=== PATIENT | female | born 1950 | race Caucasian/White ===

== ENCOUNTER → 2016-11-18 | Outpatient (CLI) | payer MEDICARE, OTHER ==
--- NOTE | 2016-11-18 16:28 | BD ---
EXAMINATION TYPE: MG DEXA axial skeleton. DATE OF EXAM: 11/18/2016 2:34 PM COMPARISON: NONE CLINICAL HISTORY: 66-year-old female Z78.0 ASYMPTOMATIC MENOPAUSAL STATE Height: 61.5 Weight: 228 FRAX RISK QUESTIONS: Alcohol (3 or more units per day): NO Family History (Parent hip fracture): NO Glucocorticoids (More than 3mos): YES (Ex: prednisone, prednisolone, methylprednisolone, dexamethasone, and hydrocortisone). History of Fracture in Adulthood: YES Secondary Osteoporosis: NO 1. Type 1 Diabetes: YES 2. Hyperthyroidism: NO 3. Menopause before 45: YES 4. Malnutrition: NO 5. Chronic liver disease: NO Rheumatoid Arthritis: NO Current Tobacco Use: NO RISK FACTORS HISTORY OF: Other Fractures since Age 50: FOOT X2 FRACTURES IN SAME FOOT When: > AGE 50 Family History of Osteoporosis: NONE KNOWN Smoke tobacco: QUIT OVER 20 YRS AGO Drink Alcohol: NO Active: YES Diet low in dairy products/other sources of calcium: NO Postmenopausal woman: EARLY 40'S Lost more than 2 inches in height since high school: NO Adrenal Insufficiency: NO MEDICATIONS: Prednisone or other steroids: SYMBACORT, SINGULAIR, AND STEROID INJECTIONS OFTEN How Long: FOR MANY YRS Additional Medications: BP MEDS, METFORMIN FOR DIABETES, VIT D IN THE PAST Additional History: OSTEOARTHRITIS, DEG DISC DISEASE OF THE SPINE, ASTHMA, DIABETIC EXAM MEASUREMENTS: Bone mineral densitometry was performed using the [employer] System. Bone mineral density as measured about the Lumbar spine is: ----- L1-L4(G/cm2): 1.174 T Score Values are as follows: ----- L1: -0.4 ----- L2: -0.7 ----- L3: 0.6 ----- L4: 0.1 ----- L1-L4: 0.0 Bone mineral density THIS IS HER FIRST BONE DENSITY AT [facility] Bone mineral density about the R hip (g/cm2): 1.093 Bone mineral density about the L hip (g/cm2): 1.024 T Score values are as follows: -----R Neck: 0.4 -----L Neck: -0.1 -----R Intertrochanter: 0.4 -----L Intertrochanter: 0.6 Bone mineral density THIS IS HER FIRST BONE DENSITY AT [facility] FRAX%'S: FOR MAJOR OSTEOPOROTIC FX: 10.0%......FOR HIP FX: 0.3% PROBABILITY OF FX IN 10 YRS TIME IMPRESSION: Normal (Values between +1 and -1 indicate normal bone mass). Rescreen in 5 years. NOTE: T-SCORE=SD OF THE YOUNG ADULT MEAN.
--- NOTE | 2016-11-22 08:12 | MM ---
Reason for exam: screening (asymptomatic). Last mammogram was performed 3 years and 3 months ago. History: Patient is postmenopausal. Family history of breast cancer in sister at age 62. Physical Findings: A clinical breast exam by your physician is recommended on an annual basis and results should be correlated with mammographic findings. MG 3D Screening Mammo W/Cad Bilateral CC and MLO view(s) were taken. Prior study comparison: August 06, 2013, bilateral digital screening mammo w/CAD. August 06, 2010, bilateral digital screening mammogram. There are scattered fibroglandular densities. No significant changes when compared with prior studies. ASSESSMENT: Negative, BI-RAD 1 RECOMMENDATION: Routine screening mammogram of both breasts in 1 year.
== END | disposition home or self-care (01) ==
LOC: RADMAMWWP 13:49
PROVIDERS: ATTEND Family Medicine
DX: Z12.31 Encounter for screening mammogram for malignant neoplasm of breast (principal); Z78.0 Asymptomatic menopausal state
CPT/HCPCS: 77080; 77063; G0202

== ENCOUNTER → 2018-12-03 | Outpatient (CLI) | payer MEDICARE, OTHER ==
--- NOTE | 2018-12-04 10:29 | MM ---
Reason for exam: screening (asymptomatic). Last mammogram was performed 2 years ago. History: Patient is postmenopausal. Family history of breast cancer in sister at age 62. Physical Findings: A clinical breast exam by your physician is recommended on an annual basis and results should be correlated with mammographic findings. MG 3D Screening Mammo W/Cad Bilateral CC and MLO view(s) were taken. Prior study comparison: November 18, 2016, bilateral MG 3d screening mammo w/cad. August 06, 2013, bilateral digital screening mammo w/CAD. The breast tissue is heterogeneously dense. This may lower the sensitivity of mammography. Finding: There are typically benign vascular, round, linear calcifications in both breasts. There is a chronic nodularity in the left breast. There is no discrete abnormality. ASSESSMENT: Benign, BI-RAD 2 RECOMMENDATION: Routine screening mammogram of both breasts in 1 year.
== END | disposition home or self-care (01) ==
LOC: RADMAMWWP 11:05
PROVIDERS: ATTEND Internal Medicine
DX: Z12.31 Encounter for screening mammogram for malignant neoplasm of breast (principal)
CPT/HCPCS: 77063; 77067

== ENCOUNTER 2019-03-04 11:35 | Inpatient (IN) | payer MEDICARE, OTHER ==
[2019-03-04] MEDS ORDERED: IPRATROPIUM-ALBUTEROL 3 ML NEB INHALATION STA (12:26)
[2019-03-04] MEDS ORDERED: methylPREDNISolone SOD SUCCI 125 MG/2 ML VIAL IV STA (12:26)
[2019-03-04] MEDS ORDERED: SODIUM CHLORIDE 0.9% 1,000 ML IV STA (12:26)
[2019-03-04] MEDS ORDERED: ACETAMINOPHEN TAB 325 MG TAB PO STA (12:27)
--- NOTE | 2019-03-04 12:37 | ED ---
SOB HPI <Yosi Tellez - Last Filed: 03/04/19 14:17> - General Source: patient, RN notes reviewed Mode of arrival: ambulatory Limitations: no limitations <Suresh Lyon - Last Filed: 03/04/19 14:26> - General Chief Complaint: Shortness of Breath Stated Complaint: poss pneumonia Time Seen by Provider: 03/04/19 12:06 - History of Present Illness Initial Comments: 68-year-old female presents emergency Department with chief complaint of cough, cold like symptoms for 3 weeks. Patient states symptoms started and she is using bcnp-cqd-ramkice medications with relief but states the symptoms progressively worsened. Patient states that she has increasing shortness breath. She does have underlying asthma and states that she smokes marijuana occasionally. Patient states that occasionally been told that she has COPD. Patient denies any recent Tylenol Motrin for her fever. Patient does complain of some body aches and mild sinus congestion and sore throat. Patient denies sick contacts. Patient denies any current chest pain or pleuritic chest pain denies any nausea vomiting diarrhea constipation no urinary symptoms (Suresh Lyon) - Related Data Home Medications Medication Instructions Recorded Confirmed Budesonide/Formoterol Fumarate 1 applic INHALATION BID 06/02/14 03/04/19 [Symbicort 160-4.5 Mcg Inhaler] Fenofibrate Nanocrystallized 145 mg PO QAM 06/02/14 03/04/19 [Fenofibrate] Ibuprofen [Motrin] 800 mg PO TID PRN 06/02/14 03/04/19 Lisinopril-Hctz 10-12.5 mg 1 tab PO DAILY 06/02/14 03/04/19 [Zestoretic 10-12.5] Montelukast [Singulair] 10 mg PO HS 06/02/14 03/04/19 metFORMIN HCL [Glucophage] 1,000 mg PO BID 06/02/14 03/04/19 rOPINIRole HCL 0.5 mg PO HS 11/04/15 03/04/19 traMADol HCl [Ultram] 100 mg PO BID 11/04/15 03/04/19 Baclofen 10 mg PO TID PRN 09/14/16 03/04/19 Albuterol Nebulized [Ventolin 2.5 mg INHALATION RT-Q6H PRN 03/04/19 03/04/19 Nebulized] diphenhydrAMINE [Benadryl] 25 mg PO QID PRN 03/04/19 03/04/19 sitaGLIPtin [Januvia] 100 mg PO DAILY 03/04/19 03/04/19 Allergies Allergy/AdvReac Type Severity Reaction Status Date / Time cephalexin Allergy Anaphylaxis Verified 03/04/19 12:23 cephalexin monohydrate Allergy Anaphylaxis Verified 03/04/19 12:23 [From Keflex] Sulfa (Sulfonamide Allergy Rash/Hives Verified 03/04/19 12:23 Antibiotics) Review of Systems ROS Other: All systems not noted in ROS Statement are negative. <Yosi Tellez - Last Filed: 03/04/19 14:17> ROS Other: All systems not noted in ROS Statement are negative. <Suresh Lyon - Last Filed: 03/04/19 14:26> ROS Statement: Those systems with pertinent positive or pertinent negative responses have been documented in the HPI. 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., HX OF MENIGITIS- STATES IN COMA AND ON LIFE SUPPORT FOR 1 WEEK (?2013) History of Any Multi-Drug Resistant Organisms: None Reported Past Surgical History: Cholecystectomy, Hernia Repair, Orthopedic Surgery, Tonsillectomy, Tubal Ligation Additional Past Surgical History / Comment(s): LEFT KNEE ARTHROSCOPY, BMT AND MYRINGOPLASTY, umbilical hernia repair Past Anesthesia/Blood Transfusion Reactions: No Reported Reaction Additional Past Anesthesia/Blood Transfusion Reaction / Comment(s): STATES AFTER LAST EAR SX (11/2013) HAD SORE MUSCLES AND WAS WEAK FOR 3-4 DAYS Past Psychological History: No Psychological Hx Reported Smoking Status: Former smoker - Past Family History Sister(s) Family Medical History: Cancer Brother(s) Family Medical History: Cancer <Suresh Lyon - Last Filed: 03/04/19 14:26> General Exam Limitations: no limitations General appearance: alert, in no apparent distress Head exam: Present: atraumatic, normocephalic, normal inspection Eye exam: Present: normal appearance, PERRL, EOMI. Absent: scleral icterus, conjunctival injection, periorbital swelling ENT exam: Present: normal exam, normal oropharynx, mucous membranes moist, TM's normal bilaterally, normal external ear exam Neck exam: Present: normal inspection, full ROM. Absent: tenderness, meningismus, lymphadenopathy Respiratory exam: Present: respiratory distress (Mild), wheezes. Absent: normal lung sounds bilaterally, rales, rhonchi, stridor Cardiovascular Exam: Present: normal rhythm, tachycardia, normal heart sounds. Absent: systolic murmur, diastolic murmur, rubs, gallop, clicks GI/Abdominal exam: Present: soft, normal bowel sounds. Absent: distended, tenderness, guarding, rebound, rigid Neurological exam: Present: alert, oriented X3, CN II-XII intact Skin exam: Present: warm, dry, intact, normal color. Absent: rash <Suresh Lyon - Last Filed: 03/04/19 14:26> Course <Yosi Tellez - Last Filed: 03/04/19 14:17> Vital Signs 03/04/19 03/04/19 03/04/19 12:03 12:21 13:19 Temperature 99.9 F H Pulse Rate 110 H 97 Respiratory 28 H 22 Rate Blood Pressure 155/77 O2 Sat by Pulse 94 L Oximetry 03/04/19 03/04/19 13:36 13:54 Temperature 98.8 F Pulse Rate 102 H 101 H Respiratory 22 Rate Blood Pressure 121/67 O2 Sat by Pulse 97 Oximetry - Reevaluation(s) Reevaluation #1: 03/04/19 14:17 PA supervision: I proceeded [id number] evaluation the patient does present with complaints of shortness of breath. She also had a fever. She does have evidence of COPD exacerbation as well as pneumonia and x-rays. She's been suffering with shortness of breath or past several weeks using [id number]-[id number] medications to treat himself. She's not sought medical care prior. I do agree with the assessment and plan. (Yosi Tellez) Medical Decision Making - Lab Data Result diagrams: 03/04/19 13:10 03/04/19 13:10 <Yosi Tellez - Last Filed: 03/04/19 14:17> - Lab Data Result diagrams: 03/04/19 13:10 03/04/19 13:10 <Suresh Lyon - Last Filed: 03/04/19 14:26> - Medical Decision Making 60-year-old female presented for dyspnea, cough congestion. Chest x-rays is with pneumonia along with her symptoms. Patient is febrile. Patient improved after IV steroids, breathing treatment. Patient was started on Levaquin. (Suresh Lyon) - Lab Data Lab Results 03/04/19 03/04/19 03/04/19 Range/Units 13:10 13:10 13:10 WBC 10.1 (3.8-10.6) k/uL RBC 4.55 (3.80-5.40) m/uL Hgb 11.3 L (11.4-16.0) gm/dL Hct 36.3 (34.0-46.0) % MCV 79.7 L (80.0-100.0) fL MCH 24.8 L (25.0-35.0) pg MCHC 31.2 (31.0-37.0) g/dL RDW 15.7 H (11.5-15.5) % Plt Count 357 (150-450) k/uL Neutrophils % 74 % Lymphocytes % 18 % Monocytes % 5 % Eosinophils % 3 % Basophils % 1 % Neutrophils # 7.4 (1.3-7.7) k/uL Lymphocytes # 1.8 (1.0-4.8) k/uL Monocytes # 0.5 (0-1.0) k/uL Eosinophils # 0.3 (0-0.7) k/uL Basophils # 0.1 (0-0.2) k/uL Hypochromasia Moderate Sodium 137 (137-145) mmol/L Potassium 4.5 (3.5-5.1) mmol/L Chloride 103 (98-107) mmol/L Carbon Dioxide 26 (22-30) mmol/L Anion Gap 8 mmol/L BUN 7 (7-17) mg/dL Creatinine 0.50 L (0.52-1.04) mg/dL Est GFR (CKD-EPI)AfAm >90 (>60 ml/min/1.73 sqM) Est GFR (CKD-EPI)NonAf >90 (>60 ml/min/1.73 sqM) Glucose 118 H (74-99) mg/dL Plasma Lactic Acid Angel (0.7-2.0) mmol/L Calcium 9.4 (8.4-10.2) mg/dL Magnesium 1.7 (1.6-2.3) mg/dL Total Bilirubin 0.6 (0.2-1.3) mg/dL AST 27 (14-36) U/L ALT 24 (9-52) U/L Alkaline Phosphatase 56 (38-126) U/L Total Protein 7.2 (6.3-8.2) g/dL Albumin 4.0 (3.5-5.0) g/dL Influenza Type A RNA Not Detected (Not Detectd) Influenza Type B (PCR) Not Detected (Not Detectd) 03/04/19 Range/Units 13:10 WBC (3.8-10.6) k/uL RBC (3.80-5.40) m/uL Hgb (11.4-16.0) gm/dL Hct (34.0-46.0) % MCV (80.0-100.0) fL MCH (25.0-35.0) pg MCHC (31.0-37.0) g/dL RDW (11.5-15.5) % Plt Count (150-450) k/uL Neutrophils % % Lymphocytes % % Monocytes % % Eosinophils % % Basophils % % Neutrophils # (1.3-7.7) k/uL Lymphocytes # (1.0-4.8) k/uL Monocytes # (0-1.0) k/uL Eosinophils # (0-0.7) k/uL Basophils # (0-0.2) k/uL Hypochromasia Sodium (137-145) mmol/L Potassium (3.5-5.1) mmol/L Chloride (98-107) mmol/L Carbon Dioxide (22-30) mmol/L Anion Gap mmol/L BUN (7-17) mg/dL Creatinine (0.52-1.04) mg/dL Est GFR (CKD-EPI)AfAm (>60 ml/min/1.73 sqM) Est GFR (CKD-EPI)NonAf (>60 ml/min/1.73 sqM) Glucose (74-99) mg/dL Plasma Lactic Acid Angel 1.1 (0.7-2.0) mmol/L Calcium (8.4-10.2) mg/dL Magnesium (1.6-2.3) mg/dL Total Bilirubin (0.2-1.3) mg/dL AST (14-36) U/L ALT (9-52) U/L Alkaline Phosphatase (38-126) U/L Total Protein (6.3-8.2) g/dL Albumin (3.5-5.0) g/dL Influenza Type A RNA (Not Detectd) Influenza Type B (PCR) (Not Detectd) Disposition <Yosi Tellez - Last Filed: 03/04/19 14:17> <Suresh Lyon - Last Filed: 03/04/19 14:26> Clinical Impression: Pneumonia, Asthma exacerbation Disposition: ADMITTED IP TO THIS HOSP Condition: Fair Referrals: Surinder Rodríguez MD [Primary Care Provider] - 1-2 days
[2019-03-04 13:37] LABS: ALT 24 U/L (9-52); AST 27 U/L (14-36); Alkaline Phosphatase 56 U/L (38-126); Anion Gap 8 mmol/L; Blood Urea Nitrogen 7 mg/dL (7-17); Calcium 9.4 mg/dL (8.4-10.2); Carbon Dioxide 26 mmol/L (22-30); Chloride 103 mmol/L (98-107); Glucose 118 mg/dL (74-99); Magnesium 1.7 mg/dL (1.6-2.3); Potassium 4.5 mmol/L (3.5-5.1); Sodium 137 mmol/L (137-145); Total Bilirubin 0.6 mg/dL (0.2-1.3); Total Protein 7.2 g/dL (6.3-8.2)
[2019-03-04 13:41] LABS: Basophils # (A) 0.1 k/uL (0-0.2); Basophils % (A) 1 %; Eosinophils # (A) 0.3 k/uL (0-0.7); Eosinophils % (A) 3 %; HCT 36.3 % (34.0-46.0); HGB 11.3 gm/dL (11.4-16.0); Hypochromasia Moderate; Lymphocytes # (A) 1.8 k/uL (1.0-4.8); Lymphocytes % (A) 18 %; MCH 24.8 pg (25.0-35.0); MCHC 31.2 g/dL (31.0-37.0); MCV 79.7 fL (80.0-100.0); Mean Platelet Volume 7.5; Monocytes # (A) 0.5 k/uL (0-1.0); Monocytes % (A) 5 %; Neutrophils # (A) 7.4 k/uL (1.3-7.7); Neutrophils % (A) 74 %; Platelet Count 357 k/uL (150-450); RBC 4.55 m/uL (3.80-5.40); RDW 15.7 % (11.5-15.5); WBC 10.1 k/uL (3.8-10.6)
--- NOTE | 2019-03-04 13:57 | XR ---
EXAMINATION TYPE: XR chest 2V DATE OF EXAM: 03/04/2019 COMPARISON: Prior chest x-ray 10/09/2013 HISTORY: Difficulty breathing, shortness of breath and productive cough TECHNIQUE: Frontal and lateral views of the chest are obtained. FINDINGS: Patchy basilar density is present likely in the left lower lobe. No pneumothorax or pleura l effusion. Patient is rotated. Heart size may be enlarged however patient is rotated. There are over lying cardiac leads. Some improvement in aeration compared to prior exam. IMPRESSION: There may be basilar atelectasis or airspace disease, correlate to exclude pneumonia. Fo llow-up PA and lateral chest x-ray may be of benefit. Rotated exam. There may be underlying cardiomeg nate.
[2019-03-04] MEDS ORDERED: IPRATROPIUM-ALBUTEROL 3 ML NEB INHALATION PRN (14:26)
[2019-03-04] MEDS ORDERED: PNEUMONIA PROTOCOL UTILIZED 1 EACH MISC PO PRN (14:26)
[2019-03-04] MEDS: LEVOFLOXACIN 750MG-D5W PMX 750 MG in DEXTROSE/WATER 1 150ML.BAG IVPB SCH (15:52)
[2019-03-04] MEDS ORDERED: diphenhydrAMINE 25 MG CAP PO PRN (15:55)
[2019-03-04] MEDS ORDERED: IBUPROFEN 800 MG TAB PO PRN (15:55)
--- NOTE | 2019-03-04 16:05 | P.HPIM ---
History of Present Illness H&P Date: 03/04/19 Chief Complaint: Productive cough and shortness of breath 2 weeks This is a 68-year-old female with a known past medical history of asthma, COPD, diabetes mellitus, hyperlipidemia, hypertension, obstructive sleep apnea noncompliant with CPAP machine and history of meningitis requiring life support in 2013. Patient presents to the emergency room with complaints of productive cough with yellowish sputum and shortness of breath for the past 2 weeks. She did took kofd-zcr-meruyhy Robitussin-DM 2 bottles with no improvement. She also had been using extra nebulizer treatments as well. She did have a temp of 99.9 heart rate of 110 in the emergency room. Lactic acid normal at 1.1 influenza screen was negative. Chest x-ray had shown basilar atelectasis, correlate to exclude pneumonia. Patient started on IV Levaquin, IV Solu-Medrol and nebulizer treatments. Pulmonary service has been placed on consult. Patient has been exposed to grandkids with pneumonia and possibly whooping cough. Patient states that she is up-to-date on her childhood immunizations. Patient admits to having chills and sweats. Denies any nausea vomiting bowel movement changes or urinary symptoms. Denies any chest pain. Review of Systems Please refer to HPI otherwise unremarkable 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., HX OF MENIGITIS- STATES IN COMA AND ON LIFE SUPPORT FOR 1 WEEK (?2013) History of Any Multi-Drug Resistant Organisms: None Reported Past Surgical History: Cholecystectomy, Hernia Repair, Orthopedic Surgery, Tonsillectomy, Tubal Ligation Additional Past Surgical History / Comment(s): LEFT KNEE ARTHROSCOPY, BMT AND MYRINGOPLASTY, umbilical hernia repair Past Anesthesia/Blood Transfusion Reactions: No Reported Reaction Additional Past Anesthesia/Blood Transfusion Reaction / Comment(s): STATES AFTER LAST EAR SX (11/2013) HAD SORE MUSCLES AND WAS WEAK FOR 3-4 DAYS Past Psychological History: No Psychological Hx Reported Smoking Status: Former smoker - Past Family History Sister(s) Family Medical History: Cancer Brother(s) Family Medical History: Cancer Medications and Allergies Home Medications Medication Instructions Recorded Confirmed Type Budesonide/Formoterol Fumarate 1 applic INHALATION BID 06/02/14 03/04/19 History [Symbicort 160-4.5 Mcg Inhaler] Fenofibrate Nanocrystallized 145 mg PO QAM 06/02/14 03/04/19 History [Fenofibrate] Ibuprofen [Motrin] 800 mg PO TID PRN 06/02/14 03/04/19 History Lisinopril-Hctz 10-12.5 mg 1 tab PO DAILY 06/02/14 03/04/19 History [Zestoretic 10-12.5] Montelukast [Singulair] 10 mg PO HS 06/02/14 03/04/19 History metFORMIN HCL [Glucophage] 1,000 mg PO BID 06/02/14 03/04/19 History rOPINIRole HCL 0.5 mg PO HS 11/04/15 03/04/19 History traMADol HCl [Ultram] 100 mg PO BID 11/04/15 03/04/19 History Baclofen 10 mg PO TID PRN 09/14/16 03/04/19 History Albuterol Nebulized [Ventolin 2.5 mg INHALATION RT-Q6H PRN 03/04/19 03/04/19 History Nebulized] diphenhydrAMINE [Benadryl] 25 mg PO QID PRN 03/04/19 03/04/19 History sitaGLIPtin [Januvia] 100 mg PO DAILY 03/04/19 03/04/19 History Allergies Allergy/AdvReac Type Severity Reaction Status Date / Time cephalexin Allergy Anaphylaxis Verified 03/04/19 12:23 cephalexin monohydrate Allergy Anaphylaxis Verified 03/04/19 12:23 [From Keflex] Sulfa (Sulfonamide Allergy Rash/Hives Verified 03/04/19 12:23 Antibiotics) Physical Exam Vitals: Vital Signs Temp Pulse Resp BP Pulse Ox 03/04/19 13:54 98.8 F 101 H 22 121/67 97 03/04/19 13:36 102 H 03/04/19 13:19 97 03/04/19 12:21 22 03/04/19 12:03 99.9 F H 110 H 28 H 155/77 94 L Intake and Output 03/04/19 03/04/19 03/04/19 06:59 14:59 22:59 Other: Weight 104.508 kg Head normocephalic Neck supple Lungs rhonchi and wheezing noted bilaterally Heart regular rate and rhythm S1-S2, no rub or gallop Abdomen is soft nontender nondistended positive bowel sounds no hepatosplenomegaly Extremities no edema Neuro alert and orientated to 3 Results CBC & Chem 7: 03/04/19 13:10 03/04/19 13:10 Labs: Abnormal Lab Results - Last 24 Hours (Table) 03/04/19 03/04/19 Range/Units 13:10 13:10 Hgb 11.3 L (11.4-16.0) gm/dL MCV 79.7 L (80.0-100.0) fL MCH 24.8 L (25.0-35.0) pg RDW 15.7 H (11.5-15.5) % Creatinine 0.50 L (0.52-1.04) mg/dL Glucose 118 H (74-99) mg/dL Assessment and Plan Assessment: 1. Productive cough with shortness of breath: Likely secondary to bronchitis with possible pneumonia and asthma exacerbation. Influenza screening negative 2. Acute tracheobronchitis with possible pneumonia: Check sputum culture continue Levaquin. Consult pulmonary service 3. Acute asthma exacerbation with possible underlying COPD. Patient does have a past history of smoking. We'll continue with nebulizer treatments 4 times a day and as needed. 4. Diabetes mellitus type 2 hold metformin. Resume Januvia. Add sliding scale coverage scale D due to patient being on steroids 5. Hyperlipidemia 6. Essential hypertension: Blood pressure stable 7. Obstructive sleep apnea noncompliant with CPAP machine 8. History of meningitis requiring life support in 2013 9. Occasional marijuana use GI prophylaxis Pepcid and DVT prophylaxis Lovenox Time with Patient: Greater than 30 (Greater than 50% of the total time spent in counseling and coordination of care.I performed an examination of the patient and discussed their management with the physician District Resource Officer. I have reviewed the Physician District Resource Officer's notes and agree with the documented findings and plan of care)
[2019-03-04] MEDS: IPRATROPIUM-ALBUTEROL 3 ML NEB INHALATION SCH ×2 (16:22→20:14)
[2019-03-04 17:04] LABS: Glucose,Whole Blood 346 mg/dL (75-99)
[2019-03-04] MEDS: methylPREDNISolone SOD SUCCI 40 MG/ML 1 ML VIAL IV SCH (17:29)
[2019-03-04 17:54] VITALS: BMI 42.1
[2019-03-04] MEDS: INSULIN ASPART (NovoLOG) 100 UNIT/ML VIAL SQ SCH ×2 (18:11→20:51)
[2019-03-04] MEDS: traMADol 50 MG TAB PO SCH (19:57)
[2019-03-04] MEDS: BACLOFEN 10 MG TAB PO PRN (19:58)
[2019-03-04] MEDS: MONTELUKAST 10 MG TAB PO SCH (19:58)
[2019-03-04 20:39] LABS: Glucose,Whole Blood 324 mg/dL (75-99)
--- NOTE | 2019-03-04 21:42 | P.CONS ---
History of Present Illness - Reason for Consult Consult date: 03/04/19 Pneumonia Requesting physician: Surinder Rodríguez - Chief Complaint Shortness of breath and cough x 3 weeks - History of Present Illness Patient is a 68-year-old female presenting to the ER at [facility] chief complaints of increased shortness of breath and cough with a symptom that has been going on for almost 3 weeks patient's symptoms started with URI some sore throat or runny nose subsequent was on having a cough which is moderate in intensity and bringing up some yellow sputum initially discovered intake between now no hemoptysis patient has taken skuw-gzm-hdxqgth Robitussin and cough medication without any improvement the patient cough is associated with shortness of breath and central chest pain more of a dull aching to sharp 3 out of 10 and no radiation, the patient complaining of feeling cold and chills with these symptoms the patient presented to [facility] ER the patient was reported by the physician she did have low-grade fever of 99.96 with a basal infiltrate correlate to to exclude pneumonia patient did have multiple antibiotic ALLERGIES including cephalexin and sulfa the patient was started on Levaquin sensitivity IV piggyback daily and addition to steroids and bronchodilator admitted to the hospital infectious disease was consulted for further recommendation regarding antibiotic therapy Review of Systems CONSTITUTIONAL: Positive for weakness. Chills and low-grade Fever EYES: No complaint. ENT: As per history of present illness. RESPIRATORY: As per history of present illness CARDIOVASCULAR: No complaint. GENITOURINARY: No complaint. GASTROINTESTINAL: No complaint. MUSCULOSKELETAL: No complaint. INTEGUMENTARY: No complaint. PSYCHOLOGICAL: No complaint. ENDOCRINE: No complaint. NEUROLOGIC: No complaint. 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., HX OF MENIGITIS- STATES IN COMA AND ON LIFE SUPPORT FOR 1 WEEK (?2013) History of Any Multi-Drug Resistant Organisms: None Reported Past Surgical History: Cholecystectomy, Hernia Repair, Orthopedic Surgery, Tonsillectomy, Tubal Ligation Additional Past Surgical History / Comment(s): LEFT KNEE ARTHROSCOPY, BMT AND MYRINGOPLASTY, umbilical hernia repair Past Anesthesia/Blood Transfusion Reactions: No Reported Reaction Additional Past Anesthesia/Blood Transfusion Reaction / Comm: STATES AFTER LAST EAR SX (11/2013) HAD SORE MUSCLES AND WAS WEAK FOR 3-4 DAYS Past Psychological History: No Psychological Hx Reported Smoking Status: Former smoker - Past Family History Sister(s) Family Medical History: Cancer Brother(s) Family Medical History: Cancer Medications and Allergies Home Medications Medication Instructions Recorded Confirmed Type Budesonide/Formoterol Fumarate 1 applic INHALATION BID 06/02/14 03/04/19 History [Symbicort 160-4.5 Mcg Inhaler] Fenofibrate Nanocrystallized 145 mg PO QAM 06/02/14 03/04/19 History [Fenofibrate] Ibuprofen [Motrin] 800 mg PO TID PRN 06/02/14 03/04/19 History Lisinopril-Hctz 10-12.5 mg 1 tab PO DAILY 06/02/14 03/04/19 History [Zestoretic 10-12.5] Montelukast [Singulair] 10 mg PO HS 06/02/14 03/04/19 History metFORMIN HCL [Glucophage] 1,000 mg PO BID 06/02/14 03/04/19 History rOPINIRole HCL 0.5 mg PO HS 11/04/15 03/04/19 History traMADol HCl [Ultram] 100 mg PO BID 11/04/15 03/04/19 History Baclofen 10 mg PO TID PRN 09/14/16 03/04/19 History Albuterol Nebulized [Ventolin 2.5 mg INHALATION RT-Q6H PRN 03/04/19 03/04/19 History Nebulized] diphenhydrAMINE [Benadryl] 25 mg PO QID PRN 03/04/19 03/04/19 History sitaGLIPtin [Januvia] 100 mg PO DAILY 03/04/19 03/04/19 History Allergies Allergy/AdvReac Type Severity Reaction Status Date / Time cephalexin Allergy Anaphylaxis Verified 03/04/19 12:23 cephalexin monohydrate Allergy Anaphylaxis Verified 03/04/19 12:23 [From Keflex] Sulfa (Sulfonamide Allergy Rash/Hives Verified 03/04/19 12:23 Antibiotics) Physical Exam Vitals: Vital Signs Temp Pulse Resp BP Pulse Ox 03/04/19 16:34 108 H 03/04/19 16:23 109 H 20 120/76 95 03/04/19 16:22 103 H 03/04/19 13:54 98.8 F 101 H 22 121/67 97 03/04/19 13:36 102 H 03/04/19 13:19 97 03/04/19 12:21 22 03/04/19 12:03 99.9 F H 110 H 28 H 155/77 94 L Intake and Output 03/04/19 03/04/19 03/04/19 06:59 14:59 22:59 Other: Weight 104.508 kg GENERAL DESCRIPTION: An elderly female lying in bed, no distress. No tachypnea or accessory muscle of respiration use. HEENT: Shows Pallor , no scleral icterus. Oral mucous membrane is dry. No pharyngeal erythema or thrush NECK: Trachea central, no thyromegaly. LUNGS: Unlabored breathing. Coarse bilaterally with occasional wheeze . HEART: S1, S2, regular rate and rhythm. No loud murmur ABDOMEN: Soft, no tenderness , guarding or rigidity, no organomegaly EXTREMITIES: No edema of feet. SKIN: No rash, no masses palpable. NEUROLOGICAL: The patient is awake, alert, oriented x3, mood and affect normal. Results CBC & Chem 7: 03/04/19 13:10 03/04/19 13:10 Labs: Abnormal Lab Results - Last 24 Hours (Table) 03/04/19 03/04/19 03/04/19 Range/Units 13:10 13:10 16:56 Hgb 11.3 L (11.4-16.0) gm/dL MCV 79.7 L (80.0-100.0) fL MCH 24.8 L (25.0-35.0) pg RDW 15.7 H (11.5-15.5) % Creatinine 0.50 L (0.52-1.04) mg/dL Glucose 118 H (74-99) mg/dL POC Glucose (mg/dL) 346 H (75-99) mg/dL Assessment and Plan Assessment: 1-patient was in hospital with increasing shortness of breath or cough and sputum production this patient symptom has been going on for more than 2 weeks failing outpatient medication with evidence base of his patient stated suspicious for community-acquired pneumonia 2-patient with multiple antibiotic ALLERGIES that would limit the number of antibiotic that could be safe to use (1) Pneumonia Current Visit: Yes Status: Acute Code(s): J18.9 - PNEUMONIA, UNSPECIFIED ORGANISM SNOMED Code(s): 679175997 Plan: 1-we will try to obtain sputum for Gram stain and culture 2-the patient will be empirically treated with Levaquin 750 mg daily\ We will follow-up on clinical condition and cultures to further adjust medication if needed Thank you for this consultation will follow this patient along with you Time with Patient: Greater than 30
[2019-03-04] MEDS: IPRATROPIUM-ALBUTEROL 3 ML NEB INHALATION PRN (23:40)
[2019-03-05] MEDS: methylPREDNISolone SOD SUCCI 40 MG/ML 1 ML VIAL IV SCH ×2 (00:19→06:27)
[2019-03-05] MEDS: IPRATROPIUM-ALBUTEROL 3 ML NEB INHALATION PRN (03:48)
[2019-03-05] MEDS: IPRATROPIUM-ALBUTEROL 3 ML NEB INHALATION SCH ×4 (07:10→19:18)
[2019-03-05 07:15] LABS: Glucose,Whole Blood 230 mg/dL (75-99)
--- NOTE | 2019-03-05 07:17 | XR ---
EXAMINATION TYPE: XR chest 2V DATE OF EXAM: 03/05/2019 COMPARISON: 03/04/2019 HISTORY: 68-year-old female pneumonia TECHNIQUE: Frontal and lateral views FINDINGS: Heart upper limits of normal in size. Aorta within normal limits. Mild diffuse interstitial prominenc e is similar. Improving aeration at the posterior base on the lateral view. No pleural effusion. IMPRESSION: Borderline heart size. Similar mild diffuse interstitial prominence, possible bronchitis or asthma. P reviously seen posterior basilar patchy opacity on the lateral view has improved.
[2019-03-05] MEDS: LISINOPRIL-HCTZ 10-12.5 MG 1 EACH TAB PO SCH (08:03)
[2019-03-05] MEDS: ENOXAPARIN 40 MG/0.4 ML SYRINGE SQ SCH (08:03)
[2019-03-05] MEDS: traMADol 50 MG TAB PO SCH ×2 (08:03→21:36)
[2019-03-05] MEDS: FAMOTIDINE 20 MG TAB PO SCH (08:04)
[2019-03-05] MEDS: FENOFIBRATE 160 MG TAB PO SCH (08:04)
[2019-03-05] MEDS: LINAGLIPTIN 5 MG TABLET PO SCH (08:04)
[2019-03-05] MEDS: INSULIN ASPART (NovoLOG) 100 UNIT/ML VIAL SQ SCH ×4 (08:06→21:36)
[2019-03-05] MEDS: BACLOFEN 10 MG TAB PO PRN ×2 (08:13→21:39)
[2019-03-05 10:26] LABS: Basophils % (A) 0 %; Eosinophils % (A) 0 %; HCT 36.5 % (34.0-46.0); Hypochromasia Moderate; Lymphocytes % (A) 7 %; MCH 24.4 pg (25.0-35.0); MCHC 30.2 g/dL (31.0-37.0); MCV 80.6 fL (80.0-100.0); Mean Platelet Volume 7.7; Monocytes # (A) 0.2 k/uL (0-1.0); Monocytes % (A) 2 %; Neutrophils # (A) 12.3 k/uL (1.3-7.7); Neutrophils % (A) 91 %; Platelet Count 415 k/uL (150-450); RBC 4.53 m/uL (3.80-5.40); RDW 15.4 % (11.5-15.5); WBC 13.6 k/uL (3.8-10.6)
[2019-03-05 10:36] LABS: ALT 21 U/L (9-52); AST 23 U/L (14-36); Albumin 4.2 g/dL (3.5-5.0); Alkaline Phosphatase 56 U/L (38-126); Anion Gap 14 mmol/L; Blood Urea Nitrogen 12 mg/dL (7-17); Calcium 9.5 mg/dL (8.4-10.2); Carbon Dioxide 22 mmol/L (22-30); Chloride 103 mmol/L (98-107); Glucose 217 mg/dL (74-99); Potassium 4.4 mmol/L (3.5-5.1); Sodium 139 mmol/L (137-145); Total Bilirubin 0.4 mg/dL (0.2-1.3); Total Protein 7.4 g/dL (6.3-8.2)
[2019-03-05] MEDS: PROMETHAZ-COD 6.25-10 MG/5 ML 5 ML CUP PO PRN ×3 (10:57→22:51)
[2019-03-05] MEDS ORDERED: guaiFENesin 600 MG TABLET.ER PO PRN (11:02)
--- NOTE | 2019-03-05 11:09 | P.PN ---
Subjective Progress Note Date: 03/05/19 This is a 68-year-old female with a known past medical history of asthma, COPD, diabetes mellitus, hyperlipidemia, hypertension, obstructive sleep apnea noncompliant with CPAP machine and history of meningitis requiring life support in 2013. Patient presents to the emergency room with complaints of productive cough with yellowish sputum and shortness of breath for the past 2 weeks. She did took tsmo-vuc-nfneuog Robitussin-DM 2 bottles with no improvement. She also had been using extra nebulizer treatments as well. She did have a temp of 99.9 heart rate of 110 in the emergency room. Lactic acid normal at 1.1 influenza screen was negative. Chest x-ray had shown basilar atelectasis, correlate to exclude pneumonia. Patient started on IV Levaquin, IV Solu-Medrol and nebulizer treatments. Pulmonary service has been placed on consult. Patient has been exposed to grandkids with pneumonia and possibly whooping cough. Patient states that she is up-to-date on her childhood immunizations. Patient admits to having chills and sweats. Denies any nausea vomiting bowel movement changes or urinary symptoms. Denies any chest pain. On 03/05/2019 patient is alert and oriented 3. Patient is having increased cough. Repeat chest x-ray completed. Levaquin antibiotic per infectious disease. At this time patient denies chest pain. Patient denies nausea vomiting or diarrhea. Patient denies any urinary burning or frequency. Objective - Vital Signs Vital signs: Vital Signs Temp 98.5 F 03/05/19 05:02 Pulse 102 H 03/05/19 10:53 Resp 20 03/05/19 08:00 BP 128/83 03/05/19 05:02 Pulse Ox 94 L 03/05/19 07:12 Intake & Output 03/04/19 03/05/19 03/05/19 18:59 06:59 18:59 Weight 104.508 kg Other: Voiding Method Toilet # Voids 1 2 - Exam Head normocephalic Neck supple Lungs rhonchi and wheezing noted bilaterally Heart regular rate and rhythm S1-S2, no rub or gallop Abdomen is soft nontender nondistended positive bowel sounds no hepatosplenomegaly Extremities no edema Neuro alert and orientated to 3 - Labs CBC & Chem 7: 03/05/19 09:17 03/05/19 09:17 Labs: Abnormal Lab Results - Last 24 Hours (Table) 03/04/19 03/04/19 03/04/19 Range/Units 13:10 13:10 13:10 WBC (3.8-10.6) k/uL Hgb 11.3 L (11.4-16.0) gm/dL MCV 79.7 L (80.0-100.0) fL MCH 24.8 L (25.0-35.0) pg MCHC (31.0-37.0) g/dL RDW 15.7 H (11.5-15.5) % Neutrophils # (1.3-7.7) k/uL Creatinine 0.50 L (0.52-1.04) mg/dL Glucose 118 H (74-99) mg/dL POC Glucose (mg/dL) (75-99) mg/dL Procalcitonin 0.10 H (0.02-0.09) ng/mL 03/04/19 03/04/19 03/05/19 Range/Units 16:56 20:37 07:13 WBC (3.8-10.6) k/uL Hgb (11.4-16.0) gm/dL MCV (80.0-100.0) fL MCH (25.0-35.0) pg MCHC (31.0-37.0) g/dL RDW (11.5-15.5) % Neutrophils # (1.3-7.7) k/uL Creatinine (0.52-1.04) mg/dL Glucose (74-99) mg/dL POC Glucose (mg/dL) 346 H 324 H 230 H (75-99) mg/dL Procalcitonin (0.02-0.09) ng/mL 03/05/19 03/05/19 Range/Units 09:17 09:17 WBC 13.6 H (3.8-10.6) k/uL Hgb 11.0 L (11.4-16.0) gm/dL MCV (80.0-100.0) fL MCH 24.4 L (25.0-35.0) pg MCHC 30.2 L (31.0-37.0) g/dL RDW (11.5-15.5) % Neutrophils # 12.3 H (1.3-7.7) k/uL Creatinine (0.52-1.04) mg/dL Glucose 217 H (74-99) mg/dL POC Glucose (mg/dL) (75-99) mg/dL Procalcitonin (0.02-0.09) ng/mL Microbiology - Last 24 Hours (Table) 03/04/19 17:49 Gram Stain - Preliminary Sputum Assessment and Plan Assessment: 1. Productive cough with shortness of breath: Likely secondary to bronchitis with possible pneumonia and asthma exacerbation. Influenza screening negative. Repeat chest x-ray completed showing borderline heart size with diffuse interstitial prominence, possible bronchitis or asthma. Previously seen posterior basilar patchy opacity on the lateral view has improved. Pulmonary services following 2. Acute tracheobronchitis with possible pneumonia: Patient maintained on Levaquin. Sputum culture pending. Pulmonary service is consulted. Infectious disease is following 3. Acute asthma exacerbation with possible underlying COPD. Patient does have a past history of smoking. We'll continue with nebulizer treatments 4 times a day and as needed. Solu-Medrol added per pulmonary 4. Diabetes mellitus type 2 hold metformin. Resume Januvia. Add sliding scale coverage scale D due to patient being on steroids 5. Hyperlipidemia 6. Essential hypertension: Blood pressure stable 7. Obstructive sleep apnea noncompliant with CPAP machine 8. History of meningitis requiring life support in 2013 9. Occasional marijuana use GI prophylaxis Pepcid and DVT prophylaxis Lovenox I performed an examination of the patient and discussed their management with the Nurse Practitioner. I have reviewed the Nurse Practitioner's notes and agree with the documented findings and plan of care
--- NOTE | 2019-03-05 11:37 | CONS ---
CONSULTATION PULMONARY/CRITICAL CARE CONSULTATION: DATE OF SERVICE: 02/23/2019 REASON FOR EVALUATION: Shortness of breath. This is a 68-year-old female who presents to the emergency department with chief complaint of cough and cold-like symptoms for about 2 or 3 weeks prior to admission. She apparently was using some vnfu-ddi-kgcnshm medications such as Robitussin and NyQuil. She states that she was not really getting any relief and she started getting worse. The patient apparently takes Symbicort as an inhaler. She takes nothing else. She does not see a lung doctor. The patient apparently has a history of underlying asthma, but smokes some marijuana occasionally for "muscle spasms." Anyway, the patient states that she was apparently told that she might have a pneumonia. The patient complains of some body aches, some mild sinus congestion, a bit of a sore throat. No chest pain or chest discomfort. She denies any nausea, vomiting or diarrhea. She states that she was told she had pneumonia, although her chest x-ray in my opinion shows morbid asthmatic picture or picture bronchitis. Currently, she is resting relatively comfortably in the bed. She is wearing nasal O2. She states that she is feeling a bit worse today because she had a difficult night the night before. She was coughing quite a bit. HOME MEDICATIONS: Include Symbicort, fenofibrate, Motrin, lisinopril/hydrochlorothiazide, Singulair, Glucophage, ropinirole, tramadol, baclofen, albuterol updrafts, Benadryl, and Januvia. ALLERGY: Profile includes CEPHALEXIN and SULFA ANTIBIOTICS. PAST MEDICAL HISTORY: Includes chronic bronchial asthma for which she is on Singulair, Symbicort and albuterol, diabetes mellitus, fibromyalgia, hyperlipidemia, hypertension, osteoarthritis, and sleep apnea syndrome. She apparently thinks that she might have lupus as she has tested positive for lupus. She has a history of seasonal allergies, particularly worse in the springtime. She also has chronic back pain and osteoarthritis. She also apparently has a history of meningitis and apparently was in a coma and on life support for about a week back in 2013. SURGICAL HISTORY: Includes cholecystectomy, hernia repair, orthopedic procedures, tonsillectomy, tubal ligation, left knee arthroscopy and umbilical hernia repair. SOCIAL HISTORY: Positive for previous tobacco use. She does smoke marijuana 2 or 3 times a week for muscle spasms. FAMILY HISTORY: Positive for cancer. REVIEW OF SYSTEMS: CONSTITUTIONAL: Nasal congestion, sore throat, earache, nasal drainage for about a week or so, maybe a bit longer prior to admission to the hospital. NEUROLOGIC: Negative. HEENT: Negative except for the sore throat and earache and nasal congestion. CARDIOVASCULAR: Negative. PULMONARY: Chest congestion, shortness of breath, cough and phlegm production, wheezing. GI: Negative. : Negative. RHEUMATOLOGIC: Negative. IMMUNOLOGIC: Negative. DERMATOLOGIC: Negative. Current vital signs are reviewed. Temperature is 98.5, heart rate 102, respiratory rate 20, blood pressure 128/83 mean 98 and 2 L saturation is 97%. She appears in no acute distress. HEENT: Examination is grossly unremarkable. Mucous membranes are moist. No oral lesions. NECK: Supple. Full range of motion. No adenopathy or thyromegaly. Neck veins are flat. CARDIOVASCULAR: Examination reveals regular rhythm and rate. Heart rate 100. S1, S2 normal. No S3, S4, or murmur. LUNGS: Reveal diffuse coarse inspiratory and expiratory rhonchi and wheezes. She is quite bronchospastic. When she coughs, it sounds like somebody who has tracheobronchomalacia. Her cough is quite congested and wet. It is very coarse. Breath sounds are equal bilaterally. There is some expiratory wheezes as well. ABDOMEN: Obese. Bowel sounds are heard. EXTREMITIES: Intact. No cyanosis, clubbing, or edema. SKIN: Without rash. NEUROLOGIC: Examination is brief but nonfocal. LAB DATA: Includes a white count of 13.6, hemoglobin 11, hematocrit 36.5, platelet count 415,000. Sodium, potassium, chloride, CO2 all normal. Anion gap is 14. BUN and creatinine were 12 and 0.54. The rest of the comprehensive metabolic profile was negative. Influenza A and B studies were negative. Microbiologic studies are thus far negative, including sputum. Chest x-ray on day of admission from 03/04 shows some basilar atelectasis or airspace disease. The more recent x-ray done today shows changes consistent with underlying bronchitis or asthma. There may be an infiltrate in the posterior basal area of the lung. Medications are reviewed. Currently, she is on Pulmicort and formoterol twice a day. She is also getting updrafts q.i.d. and p.r.n. Other medications include Solu-Medrol 60 mg q.6, Singulair 10 mg at bedtime and Levaquin 750 mg daily. This seems to be appropriate for her. ASSESSMENT: 1. Asthma exacerbation complicated by purulent tracheobronchitis or possible bronchopneumonia. 2. Ongoing tobacco use, ongoing marijuana use apparently use for muscle spasms, which may be contributing to her chronic lung disease. 3. History of diabetes mellitus. 4. History of fibromyalgia. 5. Hyperlipidemia by history. 6. History of hypertension. 7. Osteoarthritis. 8. Sleep apnea syndrome. 9. Questionable history of lupus. 10.Chronic back pain. 11.Degenerative arthritis. 12.History of meningitis/coma requiring life support. 13.Obesity. PLAN: The patient's medications are appropriate. She is currently on a short-acting beta agonist, short-acting muscarinic antagonist, long-acting beta agonist, inhaled corticosteroids, systemic corticosteroids and antibiotics. Additional recommendations and suggestions are forthcoming. Will continue to follow along and see how she comes along. She may need bronchoscopy if she does not improve. MMODL / IJN: [id number] /
[2019-03-05 12:39] LABS: Glucose,Whole Blood 201 mg/dL (75-99)
[2019-03-05] MEDS: methylPREDNISolone SOD SUCCI 125 MG/2 ML VIAL IV SCH ×3 (12:48→22:51)
[2019-03-05] MEDS: LEVOFLOXACIN 750MG-D5W PMX 750 MG in DEXTROSE/WATER 1 150ML.BAG IVPB SCH (15:46)
[2019-03-05 17:26] LABS: Glucose,Whole Blood 335 mg/dL (75-99)
[2019-03-05] MEDS: FORMOTEROL FUMARATE 20 MCG/2 ML NEBU INHALATION SCH (19:18)
[2019-03-05] MEDS: BUDESONIDE 1 MG/2 ML NEBU INHALATION SCH (19:18)
[2019-03-05 20:32] LABS: Glucose,Whole Blood 370 mg/dL (75-99)
[2019-03-05] MEDS ORDERED: INSULIN DETEMIR (LEVEMIR) 100 UNIT/ML SYR SQ SCH (21:00)
[2019-03-05] MEDS: metFORMIN 500 MG TAB PO SCH (21:36)
[2019-03-05] MEDS: MONTELUKAST 10 MG TAB PO SCH (21:36)
--- NOTE | 2019-03-05 22:12 | PN ---
PROGRESS NOTE DATE OF SERVICE: 03/05/2019 REASON FOR FOLLOWUP: Pneumonia. INTERVAL HISTORY: The patient is currently afebrile. The patient is slightly breathing comfortably. Patient's cough has slightly decreased in intensity. Denies having any worsening chest pain. No nausea, no vomiting and no diarrhea. PHYSICAL EXAMINATION: Blood pressure 103/61 with a pulse of 100, temperature 98.1. She is 96% on room air. General description is an elderly female up in the room in no distress. RESPIRATORY SYSTEM: Unlabored breathing with decreased breath sounds at the base. No wheeze. HEART: S1, S2. Regular rate and rhythm. ABDOMEN: Soft. No tenderness. LABS: Hemoglobin is 11, white count 13.6, BUN of 12, creatinine 0.54. Sputum culture is currently pending, blood culture so far negative. DIAGNOSTIC IMPRESSION AND PLAN: Patient admitted to hospital with difficulty breathing and a cough with concern about possible pneumonia. The patient does have MULTIPLE ANTIBIOTIC ALLERGIES. Currently covered with Levaquin; to continue for now while waiting for the culture to finalize. Continue supportive care. MMODL / IJN: [id number] /
[2019-03-06] MEDS ORDERED: IPRATROPIUM-ALBUTEROL 3 ML NEB ONE (02:25)
[2019-03-06 05:39] VITALS: BP 125/71; RESP 17; TEMP 98
[2019-03-06] MEDS: methylPREDNISolone SOD SUCCI 125 MG/2 ML VIAL IV SCH ×2 (06:26→12:19)
[2019-03-06] MEDS: PROMETHAZ-COD 6.25-10 MG/5 ML 5 ML CUP PO PRN (06:26)
[2019-03-06] MEDS: IPRATROPIUM-ALBUTEROL 3 ML NEB INHALATION SCH ×2 (07:08→11:05)
[2019-03-06] MEDS: FORMOTEROL FUMARATE 20 MCG/2 ML NEBU INHALATION SCH (07:08)
[2019-03-06] MEDS: BUDESONIDE 1 MG/2 ML NEBU INHALATION SCH (07:08)
[2019-03-06 07:37] LABS: Glucose,Whole Blood 230 mg/dL (75-99)
[2019-03-06] MEDS: INSULIN ASPART (NovoLOG) 100 UNIT/ML VIAL SQ SCH ×2 (07:56→12:25)
[2019-03-06] MEDS: ENOXAPARIN 40 MG/0.4 ML SYRINGE SQ SCH (07:57)
[2019-03-06] MEDS: traMADol 50 MG TAB PO SCH (07:57)
[2019-03-06] MEDS: LINAGLIPTIN 5 MG TABLET PO SCH (07:57)
[2019-03-06] MEDS: LISINOPRIL-HCTZ 10-12.5 MG 1 EACH TAB PO SCH (07:57)
[2019-03-06] MEDS: FENOFIBRATE 160 MG TAB PO SCH (07:58)
[2019-03-06] MEDS: metFORMIN 500 MG TAB PO SCH (07:58)
[2019-03-06] MEDS: BACLOFEN 10 MG TAB PO PRN (07:58)
[2019-03-06] MEDS: FAMOTIDINE 20 MG TAB PO SCH (07:58)
--- NOTE | 2019-03-06 09:19 | CDI ---
Documentation Clarification Form Date: 03/06/2019 8:51:02 AM From: Charu Chambers RN, CCDS Admit Date: 03/05/2019 4:19:00 PM Patient Name: Mark Moore Visit Number: [id number] Discharge Date: ATTENTION: The Clinical Documentation Specialists (CDI) and [facility] Coding Staff appreciate your assistance in clarifying documentation. Please respond to the clarification below the line at the bottom and electronically sign. The CDI & [facility] Coding staff will review the response and follow-up if needed. Please note: Queries are made part of the Legal Health Record. If you have any questions, please contact the author of this message via ITS. Dr. Yosi Washington Asthma is documented in the past medical history, and in your consult. In order to accurately code the diagnosis additional clarification is needed. History/risk factors: Asthma, Diabetes Mellitus, Hypertension, Sleep Apnea/CPAP/BIPAP, Former smoker Clinical Indicators: 68 year-old female with complains of shortness of breath and cough x 3 weeks. She has weakness, chills and low-grade fever. Lungs: reveal diffuse coarse inspiratory and expiratory rhonchi and wheezes. She is quite bronchospastic. Respiratory: Chest congestion, shortness of breath, cough and phlegm production wheezing. Chest x-ray: basilar atelectasis or airspace disease, underlying bronchitis or asthma. There may be an infiltrate in the posterior basal area of the lung. Vital Signs: 155/77 110 28 99.9 94 % RA Treatment: Duoneb's per orders Pulmicort Inhalation, Perforomist Inhalation, Solu-medrol IV (taper) Singular PO, Phenergan with Codeine PRN Levaquin IV In your professional opinion, can you please further specify the asthma exacerbation complicated by purulent tracheobronchitis if known? With Acute lower respiratory infection COPD (specify with or without exacerbation) Chronic obstructive bronchitis Other, please specify ___ Unable to determine Severity Mild intermittent Mild persistent Moderate persistent Severe persistent Other, please specify ____ Unable to determine Form or Type Cough variant Childhood Exercise induced bronchospasm Extrinsic allergic Idiosyncratic Intrinsic nonallergic Late-onset Mixed Other, please specify____ Unable to determine (Last Revision: January 2018) MTDD
[2019-03-06 09:45] LABS: Basophils % (A) 0 %; Eosinophils % (A) 0 %; HCT 35.6 % (34.0-46.0); Hypochromasia Moderate; Lymphocytes % (A) 7 %; MCH 24.9 pg (25.0-35.0); MCHC 30.9 g/dL (31.0-37.0); MCV 80.8 fL (80.0-100.0); Mean Platelet Volume 7.4; Monocytes # (A) 0.4 k/uL (0-1.0); Monocytes % (A) 2 %; Neutrophils # (A) 14.2 k/uL (1.3-7.7); Neutrophils % (A) 91 %; Platelet Count 431 k/uL (150-450); RDW 15.5 % (11.5-15.5); WBC 15.7 k/uL (3.8-10.6)
[2019-03-06 09:56] LABS: ALT 19 U/L (9-52); AST 20 U/L (14-36); Albumin 4.2 g/dL (3.5-5.0); Alkaline Phosphatase 54 U/L (38-126); Anion Gap 15 mmol/L; Blood Urea Nitrogen 24 mg/dL (7-17); Carbon Dioxide 24 mmol/L (22-30); Chloride 100 mmol/L (98-107); Glucose 263 mg/dL (74-99); Potassium 4.3 mmol/L (3.5-5.1); Sodium 139 mmol/L (137-145); Total Bilirubin 0.3 mg/dL (0.2-1.3); Total Protein 7.3 g/dL (6.3-8.2)
[2019-03-06 11:09] VITALS: PULSE 96
--- NOTE | 2019-03-06 11:51 | P.PN ---
Subjective Progress Note Date: 03/06/19 This is a 68-year-old female with a known past medical history of asthma, COPD, diabetes mellitus, hyperlipidemia, hypertension, obstructive sleep apnea noncompliant with CPAP machine and history of meningitis requiring life support in 2013. Patient presents to the emergency room with complaints of productive cough with yellowish sputum and shortness of breath for the past 2 weeks. She did took cyjy-abq-fnwldbv Robitussin-DM 2 bottles with no improvement. She also had been using extra nebulizer treatments as well. She did have a temp of 99.9 heart rate of 110 in the emergency room. Lactic acid normal at 1.1 influenza screen was negative. Chest x-ray had shown basilar atelectasis, correlate to exclude pneumonia. Patient started on IV Levaquin, IV Solu-Medrol and nebulizer treatments. Pulmonary service has been placed on consult. Patient has been exposed to grandkids with pneumonia and possibly whooping cough. Patient states that she is up-to-date on her childhood immunizations. Patient admits to having chills and sweats. Denies any nausea vomiting bowel movement changes or urinary symptoms. Denies any chest pain. On 03/05/2019 patient is alert and oriented 3. Patient is having increased cough. Repeat chest x-ray completed. Levaquin antibiotic per infectious disease. At this time patient denies chest pain. Patient denies nausea vomiting or diarrhea. Patient denies any urinary burning or frequency. On 03/06/2019 patient's alert and oriented. Patient reports she feels significantly improved. Patient was able to get adequate sleep throughout the night. Patient at this time remains on IV steroids and IV antibiotics. Pulmonary and infectious disease are following. This time patient denies chest pain. Patient reports improvement with shortness breath. Patient denies nausea vomiting or diarrhea. Patient denies any urinary burning or frequency Objective - Vital Signs Vital signs: Vital Signs Temp 98.0 F 03/06/19 05:37 Pulse 96 03/06/19 11:16 Resp 17 03/06/19 08:00 BP 125/71 03/06/19 05:37 Pulse Ox 95 03/06/19 08:55 Intake & Output 03/05/19 03/06/19 03/06/19 18:59 06:59 18:59 Other: Voiding Method Toilet Toilet Toilet # Voids 1 1 1 # Bowel Movements 0 - Exam Head normocephalic Neck supple Lungs rhonchi and wheezing noted bilaterally Heart regular rate and rhythm S1-S2, no rub or gallop Abdomen is soft nontender nondistended positive bowel sounds no hepatosplenomegaly Extremities no edema Neuro alert and orientated to 3 - Labs CBC & Chem 7: 03/06/19 09:03 03/06/19 09:03 Labs: Abnormal Lab Results - Last 24 Hours (Table) 03/05/19 03/05/19 03/05/19 Range/Units 12:35 16:58 20:31 WBC (3.8-10.6) k/uL Hgb (11.4-16.0) gm/dL MCH (25.0-35.0) pg MCHC (31.0-37.0) g/dL Neutrophils # (1.3-7.7) k/uL BUN (7-17) mg/dL Glucose (74-99) mg/dL POC Glucose (mg/dL) 201 H 335 H 370 H (75-99) mg/dL 03/06/19 03/06/19 03/06/19 Range/Units 06:56 09:03 09:03 WBC 15.7 H (3.8-10.6) k/uL Hgb 11.0 L (11.4-16.0) gm/dL MCH 24.9 L (25.0-35.0) pg MCHC 30.9 L (31.0-37.0) g/dL Neutrophils # 14.2 H (1.3-7.7) k/uL BUN 24 H (7-17) mg/dL Glucose 263 H (74-99) mg/dL POC Glucose (mg/dL) 230 H (75-99) mg/dL Microbiology - Last 24 Hours (Table) 03/04/19 17:49 Gram Stain - Final Sputum Sputum Culture - Final 03/04/19 13:10 Blood Culture - Preliminary Blood No Growth after 24 hours Assessment and Plan Assessment: 1. Productive cough with shortness of breath: Likely secondary to bronchitis with possible pneumonia and asthma exacerbation. Influenza screening negative. Repeat chest x-ray completed showing borderline heart size with diffuse interstitial prominence, possible bronchitis or asthma. Previously seen posterior basilar patchy opacity on the lateral view has improved. Pulmonary services following 2. Acute tracheobronchitis with possible pneumonia: Patient maintained on Levaquin. Sputum culture pending. Pulmonary service is consulted. Infectious disease is following 3. Acute asthma exacerbation with possible underlying COPD. Patient does have a past history of smoking. We'll continue with nebulizer treatments 4 times a day and as needed. Solu-Medrol added per pulmonary 4. Diabetes mellitus type 2 hold metformin. Resume Januvia. Add sliding scale coverage scale D due to patient being on steroids 5. Hyperlipidemia 6. Essential hypertension: Blood pressure stable 7. Obstructive sleep apnea noncompliant with CPAP machine 8. History of meningitis requiring life support in 2013 9. Occasional marijuana use GI prophylaxis Pepcid and DVT prophylaxis Lovenox I performed an examination of the patient and discussed their management with the Nurse Practitioner. I have reviewed the Nurse Practitioner's notes and agree with the documented findings and plan of care
[2019-03-06 12:13] LABS: Glucose,Whole Blood 194 mg/dL (75-99)
--- NOTE | 2019-03-06 12:54 | P.DS ---
Providers Date of admission: 03/05/19 16:19 Expected date of discharge: 03/06/19 Attending physician: Surinder Rodríguez Consults: 03/04/19 15:57 Consult Physician Routine Consulting Provider: Yosi Washington Consult Reason/Comments: cough, shortness of breath Do you want consulting provider notified?: Yes 03/04/19 16:08 Consult Physician Routine Consulting Provider: Lamonte Polanco Consult Reason/Comments: possible pneumonia, exposure to whooping cough Do you want consulting provider notified?: Yes Primary care physician: Surinder Rodríguez [facility] Course: Discharge diagnosis 1. Productive cough with shortness of breath: Likely secondary to bronchitis with possible pneumonia and asthma exacerbation. Influenza screening negative. Repeat chest x-ray completed showing borderline heart size with diffuse interstitial prominence, possible bronchitis or asthma. Previously seen posterior basilar patchy opacity on the lateral view has improved. Per pulmo nary services patient has been cleared for discharge. 2. Acute tracheobronchitis with possible pneumonia: Patient maintained on Levaquin. Sputum culture pending. Pulmonary service is consulted. Infectious disease is following. Patient has been cleared for discharge from pulmonary standpoint. Patient will be DC'd on Levaquin for 7 more days and prednisone taper 3. Acute asthma exacerbation with possible underlying COPD. Patient does have a past history of smoking. We'll continue with nebulizer treatments 4 times a day and as needed. Solu-Medrol added per pulmonary. She'll be DC'd on prednisone taper 4. Diabetes mellitus type 2 hold metformin. Resume Januvia. Add sliding scale coverage scale D due to patient being on steroids. Home meds resumed. Patient advised to watch sugar intake very closely 5. Hyperlipidemia 6. Essential hypertension: Blood pressure stable 7. Obstructive sleep apnea noncompliant with CPAP machine 8. History of meningitis requiring life support in 2014 9. Occasional marijuana use Hospital course This is a 68-year-old female with a known past medical history of asthma, COPD, diabetes mellitus, hyperlipidemia, hypertension, obstructive sleep apnea noncompliant with CPAP machine and history of meningitis requiring life support in 2013. Patient presents to the emergency room with complaints of productive cough with yellowish sputum and shortness of breath for the past 2 weeks. She did took chjb-jen-imjtzyx Robitussin-DM 2 bottles with no improvement. She also had been using extra nebulizer treatments as well. She did have a temp of 99.9 heart rate of 110 in the emergency room. Lactic acid normal at 1.1 influenza screen was negative. Chest x-ray had shown basilar atelectasis, correlate to exclude pneumonia. Patient started on IV Levaquin, IV Solu-Medrol and nebulizer treatments. Pulmonary service has been placed on consult. Patient has been exposed to grandkids with pneumonia and possibly whooping cough. Patient states that she is up-to-date on her childhood immunizations. Patient admits to having chills and sweats. Denies any nausea vomiting bowel movement changes or urinary symptoms. Denies any chest pain. On 03/05/2019 patient is alert and oriented 3. Patient is having increased cough. Repeat chest x-ray completed. Levaquin antibiotic per infectious disease. At this time patient denies chest pain. Patient denies nausea vomiting or diarrhea. Patient denies any urinary burning or frequency. On 03/06/2019 patient's alert and oriented. Patient reports she feels significantly improved. Patient was able to get adequate sleep throughout the night. Patient at this time remains on IV steroids and IV antibiotics. Pulmonary and infectious disease are following. This time patient denies chest pain. Patient reports improvement with shortness breath. Patient denies nausea vomiting or diarrhea. Patient denies any urinary burning or frequency On 03/07/2019 patient's alert and oriented 3. Patient states that she feels much improved and is very eager to go home. Patient has been cleared for pulmonary. Patient will be DC'd home on prednisone taper antibiotic. Tramadol paper prescription given to nursing staff per Dr. rodríguez. Patient has been up ambulating on room air. This time patient denies chest pain or shortness of breath. Patient denies nausea vomiting or diarrhea. Patient denies any urinary burning or frequency. I performed an examination of the patient and discussed their management with the Nurse Practitioner. I have reviewed the Nurse Practitioner's notes and agree with the documented findings and plan of care Patient Condition at Discharge: Stable Plan - Discharge Summary New Discharge Prescriptions: No Action metFORMIN HCL [Glucophage] 1,000 mg PO BID Ibuprofen [Motrin] 800 mg PO TID PRN PRN Reason: Pain Fenofibrate Nanocrystallized [Fenofibrate] 145 mg PO QAM Budesonide/Formoterol Fumarate [Symbicort 160-4.5 Mcg Inhaler] 1 applic INHALATION BID Lisinopril-Hctz 10-12.5 mg [Zestoretic 10-12.5] 1 tab PO DAILY Montelukast [Singulair] 10 mg PO HS traMADol HCl [Ultram] 100 mg PO BID rOPINIRole HCL 0.5 mg PO HS Baclofen 10 mg PO TID PRN PRN Reason: Muscle Spasm diphenhydrAMINE [Benadryl] 25 mg PO QID PRN PRN Reason: Allergy Symptoms Albuterol Nebulized [Ventolin Nebulized] 2.5 mg INHALATION RT-Q6H PRN PRN Reason: Shortness Of Breath sitaGLIPtin [Januvia] 100 mg PO DAILY Discharge Medication List Budesonide/Formoterol Fumarate [Symbicort 160-4.5 Mcg Inhaler] 1 applic INHALATION BID 06/02/14 [History] Fenofibrate Nanocrystallized [Fenofibrate] 145 mg PO QAM 06/02/14 [History] Ibuprofen [Motrin] 800 mg PO TID PRN 06/02/14 [History] Lisinopril-Hctz 10-12.5 mg [Zestoretic 10-12.5] 1 tab PO DAILY 06/02/14 [History] Montelukast [Singulair] 10 mg PO HS 06/02/14 [History] metFORMIN HCL [Glucophage] 1,000 mg PO BID 06/02/14 [History] rOPINIRole HCL 0.5 mg PO HS 11/04/15 [History] traMADol HCl [Ultram] 100 mg PO BID 11/04/15 [History] Baclofen 10 mg PO TID PRN 09/14/16 [History] Albuterol Nebulized [Ventolin Nebulized] 2.5 mg INHALATION RT-Q6H PRN 03/04/19 [History] diphenhydrAMINE [Benadryl] 25 mg PO QID PRN 03/04/19 [History] sitaGLIPtin [Januvia] 100 mg PO DAILY 03/04/19 [History] Follow up Appointment(s)/Referral(s): Surinder Rodríguez MD [Primary Care Provider] - 03/08/19 10:45 am
--- NOTE | 2019-03-06 13:41 | P.PN ---
Subjective Progress Note Date: 03/06/19 Principal diagnosis: Acute exacerbation of mild intermittent asthma complicated by purulent tracheobronchitis. Patient is seen today Mar 06 2019 in follow-up in the regular medical floor. She is awake and alert in no acute distress. She's been up ambulating in her room. She states she is breathing quite a bit better today as compared to yesterday. Maintaining good O2 saturations in the mid 90s on room air. She's been afebrile. Blood and sputum cultures reveal no growth. White count 15.7. Hemoglobin 11.0. Creatinine 0.71. She is continued on DuoNeb inhalations, Pulmicort and Perforomist inhalations, IV Solu-Medrol. Antibiotics in the form of Levaquin. Objective - Vital Signs Vital signs: Vital Signs Temp 98.0 F 03/06/19 05:37 Pulse 96 03/06/19 11:16 Resp 17 03/06/19 08:00 BP 125/71 03/06/19 05:37 Pulse Ox 95 03/06/19 08:55 Intake & Output 03/05/19 03/06/19 03/06/19 18:59 06:59 18:59 Other: Voiding Method Toilet Toilet Toilet # Voids 1 1 1 # Bowel Movements 0 - Exam GENERAL EXAM: Alert, active, comfortable in no apparent distress. On room air. HEAD: Normocephalic. EYES: Normal reaction of pupils, equal size. NOSE: Clear with pink turbinates. THROAT: No erythema or exudates. NECK: No masses, no JVD. CHEST: No chest wall deformity. LUNGS: Equal air entry with faint end expiratory wheeze, diminished. CVS: S1 and S2 normal with no audible murmur, regular rhythm. ABDOMEN: No hepatosplenomegaly, normal bowel sounds, no guarding or rigidity. SPINE: No scoliosis or deformity SKIN: No rashes CENTRAL NERVOUS SYSTEM: No focal deficits, tone is normal in all 4 extremities. EXTREMITIES: There is no peripheral edema. No clubbing, no cyanosis. Peripheral pulses are intact. - Labs CBC & Chem 7: 03/06/19 09:03 03/06/19 09:03 Labs: Abnormal Lab Results - Last 24 Hours (Table) 03/05/19 03/05/19 03/06/19 Range/Units 16:58 20:31 06:56 WBC (3.8-10.6) k/uL Hgb (11.4-16.0) gm/dL MCH (25.0-35.0) pg MCHC (31.0-37.0) g/dL Neutrophils # (1.3-7.7) k/uL BUN (7-17) mg/dL Glucose (74-99) mg/dL POC Glucose (mg/dL) 335 H 370 H 230 H (75-99) mg/dL 03/06/19 03/06/19 03/06/19 Range/Units 09:03 09:03 11:57 WBC 15.7 H (3.8-10.6) k/uL Hgb 11.0 L (11.4-16.0) gm/dL MCH 24.9 L (25.0-35.0) pg MCHC 30.9 L (31.0-37.0) g/dL Neutrophils # 14.2 H (1.3-7.7) k/uL BUN 24 H (7-17) mg/dL Glucose 263 H (74-99) mg/dL POC Glucose (mg/dL) 194 H (75-99) mg/dL Microbiology - Last 24 Hours (Table) 03/04/19 17:49 Gram Stain - Final Sputum Sputum Culture - Final 03/04/19 13:10 Blood Culture - Preliminary Blood No Growth after 24 hours Assessment and Plan Assessment: Impression: #1 Acute exacerbation of mild intermittent chronic bronchial asthma, complicated by purulent tracheobronchitis. #2 Ongoing chronic tobacco use, ongoing marijuana use. Suspect underlying COPD. #3 Diabetes mellitus. #4 Fibromyalgia. #5 Hyperlipidemia. #6 Hypertension. #7 Osteoarthritis. #8 Obstructive sleep apnea. #9 Questionable history of lupus. #10 Chronic back pain. #11 Degenerative arthritis. #9 History of meningitis/, requiring life support. #13 Obesity. Plan: The patient was seen and evaluated by Dr. Washington. She is improved today as com pared to yesterday. She is cleared for discharge from the pulmonary standpoint. Continue prednisone taper. Complete course of antibiotics. She should follow- up in our office in 1-2 weeks' time. We'll perform full pulmonary function testing to evaluate the severity of her suspected COPD and make further recommendations regarding maintenance medications. She is however encouraged to call sooner with any recurrence of symptoms or other questions or concerns. I, the cosigning physician, performed a history & physical examination of the patient. Lungs sounds with faint end expiratory wheeze. Maintaining good O2 saturations in the 90s on room air. I discussed the assessment and plan of care with my nurse practitioner, Thi Pacheco. I attest to the above note as dictated by her.
--- NOTE | 2019-03-06 15:32 | PN ---
PROGRESS NOTE DATE OF SERVICE: 03/06/2019 REASON FOR FOLLOWUP: Pneumonia. INTERVAL HISTORY: The patient was seen on rounds this morning. The patient has been feeling better, the patient's breathing has improved. Cough has decreased in intensity. No chest pain, no abdominal pain. No nausea, vomiting or diarrhea reported. Patient is feeling better and wants to go home. PHYSICAL EXAMINATION: Blood pressure 125/71 with a pulse of 91, temperature 98, she is 96% on room air. General description is a elderly female, lying in bed in no distress. RESPIRATORY SYSTEM: Unlabored breathing, clear to auscultation anteriorly. HEART: S1, S2. Regular rate and rhythm. ABDOMEN: Soft, no tenderness. LABS: Hemoglobin is 11, white count of 15.7, BUN of 24, creatinine 0.71. Sputum has been usual respiratory nikita. Blood culture has been negative. DIAGNOSTIC IMPRESSION AND PLAN: Patient admitted to the hospital with difficulty breathing and cough with concern for possible pneumonia, possible community-acquired. This patient has multiple antibiotic allergies. Did show overall improvement. Levaquin to continue for another few days to finish a course of therapy along with per Pulmonary. Continue supportive care. MMODL / IJN: [id number] /
[2019-03-06] MEDS ORDERED: LEVOFLOXACIN 750 MG TAB PO SCH (16:00)
== END 2019-03-06 14:13 | disposition home or self-care (01) | DRG 202 ==
LOC: EC 11:35 → 4MS4W 14:13 → OBSVTOIN 03-05 16:19
PROVIDERS: ADMIT Internal Medicine; ATTEND Internal Medicine
DX: J20.9 Acute bronchitis, unspecified (principal); J18.9 Pneumonia, unspecified organism; J44.0 Chronic obstructive pulmonary disease with (acute) lower respiratory infection; J45.21 Mild intermittent asthma with (acute) exacerbation; Z68.41 Body mass index [BMI] 40.0-44.9, adult; J98.11 Atelectasis; E11.9 Type 2 diabetes mellitus without complications; E66.9 Obesity, unspecified; E78.5 Hyperlipidemia, unspecified; G47.33 Obstructive sleep apnea (adult) (pediatric); Z99.89 Dependence on other enabling machines and devices; G89.29 Other chronic pain; I10 Essential (primary) hypertension; M19.90 Unspecified osteoarthritis, unspecified site; M79.7 Fibromyalgia; Z72.0 Tobacco use; Z79.51 Long term (current) use of inhaled steroids; Z79.84 Long term (current) use of oral hypoglycemic drugs; Z79.899 Other long term (current) drug therapy; Z86.61 Personal history of infections of the central nervous system; Z88.1 Allergy status to other antibiotic agents; Z88.2 Allergy status to sulfonamides; Z91.19 Patient's noncompliance with other medical treatment and regimen; M32.9 Systemic lupus erythematosus, unspecified; Z80.9 Family history of malignant neoplasm, unspecified; M54.9 Dorsalgia, unspecified
CPT/HCPCS: 36415; 71046; 80053; 83605; 83735; 84145; 85025; 87040; 87070; 87205; 87502; 93005; 94640; 94760; 96361; 96365; 96375; 99285

== ENCOUNTER → 2019-07-11 | Outpatient (CLI) | payer MEDICARE, OTHER ==
--- NOTE | 2019-07-12 07:53 | CT ---
EXAMINATION TYPE: CT iac wo con DATE OF EXAM: 07/11/2019 COMPARISON: 04/10/2014 HISTORY: Hearing loss CT DLP: 232 mGycm. Automated Exposure Control for Dose Reduction was Utilized. TECHNIQUE: CT scan of internal auditory canal is performed without contrast, thin thin section 1 mm t hick axial images are obtained, coronal reformatted images are also reviewed. FINDINGS: The external auditory canals are patent bilaterally. The middle ears are clear. The middle ear ossicles are symmetric and unremarkable. There is no evidence of suspicious surrounding soft ti ssue. The scutum is preserved bilaterally. The cochlea and the semicircular canals are symmetric and unremarkable. Vestibular aqueduct and internal carotid canal appear unremarkable. Some minimal fluid is within the inferior left mastoid air cells. There is some moderate fluid within the mid to inferior right mastoid air cells. Correlate for mastoiditis. No septal destruction is not ed. Temporomandibular joints are maintained bilaterally. Visualized paranasal sinuses are clear. Prior uncinectomies and ethmoidectomies have been performed. Visualized portion brain parenchyma is felt wi thin normal limits. Note is made of a spina bifida occulta of C1 which is a normal variant. IMPRESSION: 1. Interval development of small left and moderate right mastoid fluid without septal destruction. Co rrelate for mild mastoiditis. 2. Internal auditory canal study is otherwise unremarkable.
== END | disposition home or self-care (01) ==
LOC: RADCTMAIN 17:02
PROVIDERS: ATTEND Otolaryngology
DX: H70.91 Unspecified mastoiditis, right ear (principal); H92.11 Otorrhea, right ear; H91.91 Unspecified hearing loss, right ear
CPT/HCPCS: 70480

== ENCOUNTER → 2020-01-07 | Outpatient (CLI) | payer MEDICARE, OTHER ==
--- NOTE | 2020-01-08 09:56 | MM ---
Reason for exam: screening (asymptomatic). Last mammogram was performed 1 year and 1 month ago. History: Patient is postmenopausal. Family history of breast cancer in sister at age 62. Physical Findings: A clinical breast exam by your physician is recommended on an annual basis and results should be correlated with mammographic findings. MG 3D Screening Mammo W/Cad Bilateral CC and MLO view(s) were taken. XCCL view(s) were taken of the left breast. Prior study comparison: December 03, 2018, bilateral MG 3d screening mammo w/cad. November 18, 2016, bilateral MG 3d screening mammo w/cad. There are scattered fibroglandular densities. Benign appearing bilateral calcifications. No suspicious abnormality. No significant changes when compared with prior studies. ASSESSMENT: Benign, BI-RAD 2 RECOMMENDATION: Routine screening mammogram of both breasts in 1 year.
== END | disposition home or self-care (01) ==
LOC: RADMAMWWP 13:58
PROVIDERS: ATTEND Internal Medicine
DX: Z12.31 Encounter for screening mammogram for malignant neoplasm of breast (principal)
CPT/HCPCS: 77063; 77067

== ENCOUNTER 2020-09-19 17:56 | Emergency (ER) | payer MEDICARE, OTHER ==
[2020-09-19 18:08] VITALS: BP 138/68; PULSE 120; RESP 18; TEMP 98.2
[2020-09-19] MEDS ORDERED: LIDOCAINE 5% PATCH TOPICAL STA (18:28)
[2020-09-19] MEDS ORDERED: HYDROmorphone 1 MG/ML 1 ML SYRINGE IM STA (18:28)
--- NOTE | 2020-09-19 18:29 | ED ---
Back Pain HPI - General Chief Complaint: Back Pain/Injury Stated Complaint: Back pain Time Seen by Provider: 09/19/20 18:16 Source: patient Limitations: no limitations - History of Present Illness Initial Comments: 7-year-old female with history of degenerative disc disease presenting to emergency Department with a chief complaint of back pain. Patient states she has chronic back pain secondary to degenerative disc disease that was confirmed with an MRI earlier this year. Patient states that she sees Dr. Montgomery with the most recent visit about 2 months ago. States that she was advised to have spine surgery performed. Patient states she refused that she deals with the pain. States typically tramadol works for her pain but this time it is worse than usual lip felt the same pattern. Patient reports the the pain radiating down her lower extremities. She denies any saddle anesthesia, urinary retention with overflow incontinence or bowel incontinence. She is denying any chest pain or shortness of breath. - Related Data Home Medications Medication Instructions Recorded Confirmed Fenofibrate Nanocrystallized 145 mg PO DAILY 06/02/14 07/21/20 [Fenofibrate] Ibuprofen [Motrin] 800 mg PO TID PRN 06/02/14 07/21/20 Montelukast [Singulair] 10 mg PO HS 06/02/14 07/21/20 metFORMIN HCL [Glucophage] 1,000 mg PO BID 06/02/14 07/21/20 rOPINIRole HCL [Requip] 0.5 mg PO HS 11/04/15 07/21/20 traMADol HCl [Ultram] 100 mg PO BID 11/04/15 07/21/20 Baclofen 10 mg PO TID 09/14/16 07/21/20 sitaGLIPtin [Januvia] 100 mg PO DAILY 03/04/19 07/21/20 Fluticasone/Salmeterol [Advair 1 each IH QAM 07/21/20 250-50 Diskus] Gabapentin [Neurontin] 100 mg PO TID 07/21/20 Spironolactone-Hctz 25-25Mg 1 each PO DAILY 07/21/20 [Aldactazide 25-25Mg] rOPINIRole HCL [Requip] 2 mg PO HS 07/21/20 Previous Rx's Medication Instructions Recorded Albuterol Nebulized [Ventolin 2.5 mg INHALATION Q6H PRN 30 Days 03/06/19 Nebulized] #120 vial Allergies Allergy/AdvReac Type Severity Reaction Status Date / Time cephalexin Allergy Anaphylaxis Verified 09/19/20 18:06 cephalexin monohydrate Allergy Anaphylaxis Verified 09/19/20 18:06 [From Keflex] Sulfa (Sulfonamide Allergy Rash/Hives Verified 09/19/20 18:06 Antibiotics) Review of Systems ROS Statement: Those systems with pertinent positive or pertinent negative responses have been documented in the HPI. ROS Other: All systems not noted in ROS Statement are negative. 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., HX OF MENIGITIS- STATES IN COMA AND ON LIFE SUPPORT FOR 1 WEEK (?2013) History of Any Multi-Drug Resistant Organisms: None Reported Past Surgical History: Cholecystectomy, Hernia Repair, Orthopedic Surgery, Tonsillectomy, Tubal Ligation Additional Past Surgical History / Comment(s): LEFT KNEE ARTHROSCOPY, BMT AND MYRINGOPLASTY, umbilical hernia repair Past Anesthesia/Blood Transfusion Reactions: No Reported Reaction Additional Past Anesthesia/Blood Transfusion Reaction / Comment(s): STATES AFTER LAST EAR SX (11/2013) HAD SORE MUSCLES AND WAS WEAK FOR 3-4 DAYS Past Psychological History: No Psychological Hx Reported Past Alcohol Use History: None Reported Past Drug Use History: Marijuana - Past Family History Sister(s) Family Medical History: Cancer Brother(s) Family Medical History: Cancer General Exam Limitations: no limitations General appearance: alert, in no apparent distress, obese Head exam: Present: atraumatic, normocephalic, normal inspection Eye exam: Present: normal appearance, PERRL, EOMI Pupils: Present: normal accommodation ENT exam: Present: normal exam, normal oropharynx, mucous membranes moist, TM's normal bilaterally, normal external ear exam Neck exam: Present: normal inspection, full ROM. Absent: tenderness Respiratory exam: Present: normal lung sounds bilaterally. Absent: respiratory distress, wheezes, rales Cardiovascular Exam: Present: regular rate, normal rhythm, normal heart sounds. Absent: systolic murmur, diastolic murmur Extremities exam: Present: normal inspection, full ROM, normal capillary refill. Absent: tenderness, pedal edema, joint swelling, calf tenderness Back exam: Present: normal inspection, full ROM, tenderness, paraspinal ten derness, vertebral tenderness. Absent: CVA tenderness (R), CVA tenderness (L) Neurological exam: Present: alert, oriented X3, CN II-XII intact, normal gait Psychiatric exam: Present: normal affect, normal mood Skin exam: Present: warm, dry, intact, normal color Course Vital Signs 09/19/20 18:06 Temperature 98.2 F Pulse Rate 120 H Respiratory 18 Rate Blood Pressure 138/68 O2 Sat by Pulse 98 Oximetry Medical Decision Making - Medical Decision Making 7-year-old female with history of degenerative disc disease and chronic back pain presenting to the emergency department chief complaint of back pain. On physical examination, patient does have vertebral paraspinal tenderness in the lumbosacral region with radiating down the lower extremities. She does have sciatica type symptoms and states this is typical pain for her just worsen usual. She denied any injury. Patient ready had an MRI of the back earlier this year they confirmed her diagnosis. Patient was given a Lidoderm patch and Dilaudid. On reevaluation, patient reports improvement in symptoms. States that she is going to follow-up with Dr. Montgomery on Monday. Patient was given Tylenol 3 starter pack. Strict return parameters were thoroughly discussed with patient is understanding and agreeable. Case discussed with physician. She doesn't have any chest pain shortness of breath or abdominal pain. No focal neurodeficits. No cauda equina. Disposition Clinical Impression: Mechanical back pain, Strain of lumbar region Disposition: HOME SELF-CARE Condition: Stable Instructions (If sedation given, give patient instructions): Acute Low Back Pain (ED) Additional Instructions: Take prescribed medication as directed. Follow-up with Dr. Montgomery. Return to emergency department if symptoms worsen. Is patient prescribed a controlled substance at d/c from ED?: No Referrals: Surinder Rodríguez MD [Primary Care Provider] - 1-2 days Time of Disposition: 19:19
[2020-09-19] MEDS ORDERED: ACET/COD 300 MG/30 MG STARTER PACK 6 TAB BTL PO STA (19:19)
== END 2020-09-19 19:48 | disposition home or self-care (01) ==
LOC: EC 17:56
DX: S39.012A Strain of muscle, fascia and tendon of lower back, initial encounter (principal); M54.9 Dorsalgia, unspecified; J45.909 Unspecified asthma, uncomplicated; E11.9 Type 2 diabetes mellitus without complications; I10 Essential (primary) hypertension; E78.5 Hyperlipidemia, unspecified; G47.30 Sleep apnea, unspecified; Z79.84 Long term (current) use of oral hypoglycemic drugs; Z79.51 Long term (current) use of inhaled steroids; Z79.899 Other long term (current) drug therapy; Z88.1 Allergy status to other antibiotic agents; Z88.2 Allergy status to sulfonamides; Z99.89 Dependence on other enabling machines and devices; X58.XXXA Exposure to other specified factors, initial encounter
CPT/HCPCS: 99283 ×2; 96372 ×2; J1170

== ENCOUNTER → 2021-03-29 | Outpatient (CLI) | payer MEDICARE, OTHER ==
--- NOTE | 2021-03-29 14:12 | US ---
EXAMINATION TYPE: US kidneys/renal and bladder DATE OF EXAM: 03/29/2021 COMPARISON: NONE CLINICAL HISTORY: 70-year-old female R10.9 FLANK PAIN,R10.2 PELVIC PAIN. Pelvic pain x couple weeks TECHNIQUE: Multiple sonographic images of the kidneys and bladder are obtained. FINDINGS: EXAM MEASUREMENTS: Right Kidney: 11.3 x 5.9 x 5.3 cm Left Kidney: 11.9 x 5.3 x 5.4 cm Right Kidney: 1.1cm cystic area inferior pole. Low-level echoes could represent debris or artifact. N o hydronephrosis. Left Kidney: 1.4cm cystic area inferior pole. No hydronephrosis. Bladder: wnl Bilateral Jets seen: right jet not seen, left jet seen. IMPRESSION: No evident hydronephrosis. If there is left-sided renal colic, as the left ureteral jet is not seen d uring the course of the exam, follow-up can be considered.
--- NOTE | 2021-03-29 14:44 | US ---
EXAMINATION TYPE: US pelvic complete DATE OF EXAM: 03/29/2021 COMPARISON: US 2011 CLINICAL HISTORY: 70-year-old female R10.9 FLANK PAIN,R10.2 PELVIC PAIN. Pelvic pain x couple weeks, 2, para 2, history of tubal ligation TECHNIQUE: Transabdominal sonographic images of the pelvis were acquired. Date of LMP: 30 years ago FINDINGS: EXAM MEASUREMENTS: Uterus: 8.5 x 4.0 x 6.1 cm Endometrial Stripe: 7.4 mm Right Ovary: 2.6 x 1.7 x 2.7 cm Left Ovary: 2.4 x 1.9 x 2.3 cm 1. Uterus: Anteverted. The myometrium is heterogeneous, 6.1 x 6.0 x 5.8cm fundal fibroid 2. Endometrium: Borderline thickened for a postmenopausal female without bleeding 3. Right Ovary: 1.6 x 1.8 x 1.3cm cystic area 4. Left Ovary: 1.3 x 1.0 x 1.8cm cystic area 5. Bilateral Adnexa: wnl 6. Posterior cul-de-sac: wnl IMPRESSION: 1. A large, 6.1 cm fundal fibroid of the uterus. 2. The endometrial stripe is borderline thickened at 7.4 mm. This may be normal in postmenopausal fem honey without bleeding. Postmenopausal bleeding ever develops in this patient, further evaluation would be warranted. Consider a 6 month precautionary follow-up ultrasound. 3. A small cyst within either ovary measuring up to 1.8 cm. Per consensus guidelines, or post menopau huber female, annual ultrasound surveillance can be performed.
== END | disposition home or self-care (01) ==
LOC: RADUSWWP 12:06
PROVIDERS: ATTEND Internal Medicine
DX: D25.9 Leiomyoma of uterus, unspecified (principal); N83.201 Unspecified ovarian cyst, right side; N83.202 Unspecified ovarian cyst, left side; N95.0 Postmenopausal bleeding
CPT/HCPCS: 76770; 76856

== ENCOUNTER → 2021-05-04 | Outpatient (CLI) | payer MEDICARE, OTHER ==
--- NOTE | 2021-05-04 15:55 | BD ---
EXAMINATION TYPE: Axial Bone Density DATE OF EXAM: 05/04/2021 COMPARISON: 11.18.2016 CLINICAL HISTORY: 70 YR OLD FEMALE.....ICD-10 CODE: M85.88 DISORDER OF BONE Height: 60.8 Weight: 206 FRAX RISK QUESTIONS: Glucocorticoids (More than 3mos): YES (Ex: prednisone, prednisolone, methylprednisolone, dexamethasone, and hydrocortisone). Current Tobacco Use: MARIJUANA, YES RISK FACTORS HISTORY OF: Postmenopausal woman: YES, AT AGE 50 Lost more than 2 inches in height since high school: YES Frequent falls: A BIT UNSTEADY Hyperparathyroidism: NO Adrenal Insufficiency: NO MEDICATIONS: Prednisone or other steroids: YES, FOR ASTHMA, FOR MANY YRS Additional Medications: BP MEDS, METFORMIN, STATIN FOR CHOLESTEROL, VIT D Additional History: HYPERTENSION, CHOLESTEROL, DIABETIC, ASTHMA EXAM MEASUREMENTS: Bone mineral densitometry was performed using the [facility]. Bone mineral density as measured about the Lumbar spine is: ----- L1-L4(G/cm2): 1.292 T Score Values are as follows: ----- L1: 0.5 ----- L2: 0.2 ----- L3: 1.6 ----- L4: 1.2 ----- L1-L4: 0.9 Bone mineral density has: Increased 10.1% since study of: 11.18.2016 Bone mineral density about the R hip (g/cm2): 1.088 Bone mineral density about the L hip (g/cm2): 1.064 T Score values are as follows: -----R Neck: -0.4 -----L Neck: -0.7 -----R Total: 0.6 -----L Total: 0.4 Bone mineral density has: Decreased -6.8% since study of: 11.18.2016 FRAX%s: THERE IS A 18.4% CHANCE FOR A MAJOR OSTEOPOROTIC FX AND A 1.7% FOR HIP....PROBABILITY FOR FX IN 10 YRS TIME IMPRESSION: Normal bone mineral density. NOTE: T-SCORE=SD OF THE YOUNG ADULT MEAN.
--- NOTE | 2021-05-05 09:18 | MM ---
Reason for exam: screening (asymptomatic). Last mammogram was performed 1 year and 4 months ago. History: Patient is postmenopausal. Family history of breast cancer in sister at age 62. Physical Findings: A clinical breast exam by your physician is recommended on an annual basis and results should be correlated with mammographic findings. MG 3D Screening Mammo W/Cad Bilateral CC and MLO view(s) were taken. XCCL view(s) were taken of the right breast. Prior study comparison: January 07, 2020, bilateral MG 3d screening mammo w/cad. December 03, 2018, bilateral MG 3d screening mammo w/cad. There are scattered fibroglandular densities. Stable benign calcifications. There is no discrete abnormality. No significant changes when compared with prior studies. ASSESSMENT: Benign, BI-RAD 2 RECOMMENDATION: Routine screening mammogram of both breasts in 1 year.
== END | disposition home or self-care (01) ==
LOC: RADMAMWWP 10:13
PROVIDERS: ATTEND Internal Medicine
DX: Z12.31 Encounter for screening mammogram for malignant neoplasm of breast (principal); Z78.0 Asymptomatic menopausal state; Z80.3 Family history of malignant neoplasm of breast
CPT/HCPCS: 77063; 77067; 77080

== ENCOUNTER 2021-07-19 07:28 | Inpatient (IN) | payer MEDICARE, OTHER ==
[2021-07-19] MEDS ORDERED: SODIUM CHLORIDE 0.9% 1,000 ML IV STA (07:41)
--- NOTE | 2021-07-19 07:54 | ED ---
General Adult HPI - General Chief complaint: Altered Mental Status Stated complaint: AMS Time Seen by Provider: 07/19/21 07:29 Source: patient, EMS Mode of arrival: EMS Limitations: altered mental status - History of Present Illness Initial comments: Dictation was produced using [employer] dictation software. please excuse any grammatical, word or spelling errors. Chief Complaint: Patient is a 70-year-old female she has multiple comorbidities presents today for diarrhea and altered mental status. History of Present Illness: Patient is a 70-year-old female she presents to emergency department for altered mental status. Patient is a poor historian. According to electronic medical records she has multiple comorbidities including diabetes, dyslipidemia hypertension fibromyalgia. Patient states that EMS was called by the neighbor because patient was screaming. She cannot tell me why she was screaming. She did tell me her name and date of but cannot tell me the year, the month and worse she is. She states that she has some mild lower back pain. Denies any numbness any paresthesias to the legs. EMS reports that patient had stable vital signs and normal blood sugar upon initial evaluation. They state that patient's apartment was covered and diarrhea. She was covered from head to toe and diarrhea. Patient has any abdominal pain. She is unable to provide a detailed history of present illness. She is a limited historian. The ROS documented in this emergency department record has been reviewed and confirmed by me. Those systems with pertinent positive or negative responses have been documented in the HPI. All other systems are other negative and/or noncontributory. PHYSICAL EXAM: General Impression: Alert and oriented x2/4, not in acute distress, covered and diarrhea, eyes open, well-appearing HEENT: Normocephalic atraumatic, extra-ocular movements intact, pupils equal and reactive to light bilaterally, mucous membranes moist. Cardiovascular: Heart regular rate and rhythm Chest: Able to complete full sentences, no retractions, no tachypnea Abdomen: abdomen soft, non-tender, non-distended, no organomegaly Musculoskeletal: Pulses present and equal in all extremities, no peripheral edema Motor: no focal deficits noted Neurological: CN II-XII grossly intact, no focal motor or sensory deficits noted, NIH 0 Skin: Intact with no visualized rashes Psych: Normal affect and mood ED course: 70-year-old female presents to the emergency department for altered mental status. Vital signs upon arrival shows heart rate of 106, rest of vital signs within acceptable limits. Patient does not appear to be any significant distress upon initial evaluation. She does appear confused but does not have any obvious focal neurologic deficits. She is disoriented but does not have any other focal neurologic findings. Patient is agitated at the bedside. Patient requiring sedating medications. Patient given Ativan. Laboratory evaluation obtained leukocytosis of 20.7. Not clear if this is bacterial infection versus stress leukocytosis. Metabolic panel shows mild anion gap acidosis. Elevated renal markers. Serum alcohol is negative.. Urine studies. CT of the abdomen and pelvis shows no acute findings. Computed tomography scan of brain shows no acute findings. Patient's son and son's girlfriend arrived to the emergency department. Son reports that patient has history of methamphetamine use. Patient has had similar reactions in the past after using methamphetamines. Son does not know where she gets amphetamines from. There is concern of infectious encephalitis. Patient cove red with antibiotics and antivirals. Patient be admitted to [facility] hospitalist group with consultation to infectious disease and neurology. Clinical presentation consistent with acute delirium. No obvious source. EKG interpretation: Ventricular rate 104, sinus tachycardia, CA interval 136, QRS 86, QTC 476. No CA prolongation, no QTC prolongation, no ST or T-wave changes noted. EKG compared to 03/04/2019 showing no changes. Overall, this EKG is unremarkable - Related Data Home Medications Medication Instructions Recorded Confirmed Ibuprofen [Motrin] 800 mg PO TID PRN 06/02/14 07/19/21 metFORMIN HCL [Glucophage] 1,000 mg PO BID 06/02/14 07/19/21 traMADol HCl [Ultram] 100 mg PO BID PRN 11/04/15 07/19/21 Baclofen 10 mg PO TID 09/14/16 07/19/21 sitaGLIPtin [Januvia] 100 mg PO DAILY 03/04/19 07/19/21 Spironolactone-Hctz 25-25Mg 1 tab PO DAILY 07/21/20 07/19/21 [Aldactazide 25-25Mg] rOPINIRole HCL [Requip] 2 mg PO HS 07/21/20 07/19/21 Allergies Allergy/AdvReac Type Severity Reaction Status Date / Time cephalexin Allergy Anaphylaxis Verified 07/19/21 08:11 cephalexin monohydrate Allergy Anaphylaxis Verified 07/19/21 08:11 [From Keflex] Sulfa (Sulfonamide Allergy Rash/Hives Verified 07/19/21 08:11 Antibiotics) Review of Systems ROS Statement: Those systems with pertinent positive or pertinent negative responses have been documented in the HPI. ROS Other: All systems not noted in ROS Statement are negative. 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., HX OF MENIGITIS- STATES IN COMA AND ON LIFE SUPPORT FOR 1 WEEK (?2013) History of Any Multi-Drug Resistant Organisms: None Reported Past Surgical History: Cholecystectomy, Hernia Repair, Orthopedic Surgery, Tonsillectomy, Tubal Ligation Additional Past Surgical History / Comment(s): LEFT KNEE ARTHROSCOPY, BMT AND MYRINGOPLASTY, umbilical hernia repair Past Anesthesia/Blood Transfusion Reactions: No Reported Reaction Additional Past Anesthesia/Blood Transfusion Reaction / Comment(s): STATES AFTER LAST EAR SX (11/2013) HAD SORE MUSCLES AND WAS WEAK FOR 3-4 DAYS Past Psychological History: No Psychological Hx Reported Smoking Status: Former smoker Past Alcohol Use History: None Reported Past Drug Use History: Marijuana - Past Family History Sister(s) Family Medical History: Cancer Brother(s) Family Medical History: Cancer General Exam Limitations: altered mental status Course Vital Signs 07/19/21 07:42 Temperature 98.3 F Pulse Rate 106 H Respiratory 18 Rate Blood Pressure 132/89 O2 Sat by Pulse 98 Oximetry Medical Decision Making - Lab Data Result diagrams: 07/19/21 08:48 07/19/21 08:48 Lab Results 07/19/21 07/19/21 07/19/21 Range/Units 08:48 08:48 08:48 WBC 20.7 H (3.8-10.6) k/uL RBC 4.67 (3.80-5.40) m/uL Hgb 12.4 (11.4-16.0) gm/dL Hct 39.7 (34.0-46.0) % MCV 84.9 (80.0-100.0) fL MCH 26.5 (25.0-35.0) pg MCHC 31.2 (31.0-37.0) g/dL RDW 16.6 H (11.5-15.5) % Plt Count 435 (150-450) k/uL MPV 8.1 Neutrophils % 91 % Lymphocytes % 4 % Monocytes % 4 % Eosinophils % 0 % Basophils % 0 % Neutrophils # 18.7 H (1.3-7.7) k/uL Lymphocytes # 0.9 L (1.0-4.8) k/uL Monocytes # 0.9 (0-1.0) k/uL Eosinophils # 0.0 (0-0.7) k/uL Basophils # 0.0 (0-0.2) k/uL Hypochromasia Slight Anisocytosis Slight Sodium 144 (137-145) mmol/L Potassium 4.5 (3.5-5.1) mmol/L Chloride 106 (98-107) mmol/L Carbon Dioxide 17 L (22-30) mmol/L Anion Gap 21 mmol/L BUN 27 H (7-17) mg/dL Creatinine 1.66 H (0.52-1.04) mg/dL Est GFR (CKD-EPI)AfAm 36 (>60 ml/min/1.73 sqM) Est GFR (CKD-EPI)NonAf 31 (>60 ml/min/1.73 sqM) Glucose 159 H (74-99) mg/dL Plasma Lactic Acid Angel 1.7 (0.7-2.0) mmol/L Calcium 10.4 H (8.4-10.2) mg/dL Magnesium 1.9 (1.6-2.3) mg/dL Total Bilirubin 0.8 (0.2-1.3) mg/dL AST 33 (14-36) U/L ALT 23 (4-34) U/L Alkaline Phosphatase 88 (38-126) U/L Ammonia 28 (<30) umol/L Creatine Kinase 546 H (30-135) U/L Total Protein 8.4 H (6.3-8.2) g/dL Albumin 4.9 (3.5-5.0) g/dL Serum Alcohol <10 mg/dL Critical Care Time Critical Care Time: Yes Total Critical Care Time: 33 Disposition Clinical Impression: Acute delirium Disposition: ADMITTED IP TO THIS HOSP Condition: Critical Referrals: None,Stated [Primary Care Provider] - 1-2 days
[2021-07-19 09:18] LABS: Lactic Acid, Venous 1.7 mmol/L (0.7-2.0)
[2021-07-19 09:21] LABS: ALT 23 U/L (4-34); AST 33 U/L (14-36); African American GFR (CKD) 36 (>60 ml/min/1.73 sqM); Albumin 4.9 g/dL (3.5-5.0); Alcohol <10 mg/dL; Alkaline Phosphatase 88 U/L (38-126); Anion Gap 21 mmol/L; Blood Urea Nitrogen 27 mg/dL (7-17); Calcium 10.4 mg/dL (8.4-10.2); Carbon Dioxide 17 mmol/L (22-30); Chloride 106 mmol/L (98-107); Creatine Kinase 546 U/L (30-135); Glucose 159 mg/dL (74-99); Magnesium 1.9 mg/dL (1.6-2.3); Non-African American GFR(CKD) 31 (>60 ml/min/1.73 sqM); Potassium 4.5 mmol/L (3.5-5.1); Sodium 144 mmol/L (137-145); Total Bilirubin 0.8 mg/dL (0.2-1.3); Total Protein 8.4 g/dL (6.3-8.2)
[2021-07-19 09:26] LABS: Anisocytosis Slight; Basophils % (A) 0 %; Eosinophils % (A) 0 %; HCT 39.7 % (34.0-46.0); HGB 12.4 gm/dL (11.4-16.0); Hypochromasia Slight; Lymphocytes # (A) 0.9 k/uL (1.0-4.8); Lymphocytes % (A) 4 %; MCH 26.5 pg (25.0-35.0); MCHC 31.2 g/dL (31.0-37.0); MCV 84.9 fL (80.0-100.0); Mean Platelet Volume 8.1; Monocytes # (A) 0.9 k/uL (0-1.0); Monocytes % (A) 4 %; Neutrophils # (A) 18.7 k/uL (1.3-7.7); Neutrophils % (A) 91 %; Platelet Count 435 k/uL (150-450); RBC 4.67 m/uL (3.80-5.40); RDW 16.6 % (11.5-15.5); WBC 20.7 k/uL (3.8-10.6)
[2021-07-19] MEDS ORDERED: MORPHINE SULFATE 4 MG/ML SYRINGE IVP STA (09:40)
--- NOTE | 2021-07-19 09:47 | XR ---
EXAMINATION TYPE: XR abdomen acute w cxr DATE OF EXAM: 07/19/2021 CLINICAL HISTORY: Altered mental status and weakness. TECHNIQUE: Single frontal view of chest is obtained. Single upright view of the abdomen are acquired. COMPARISON: Chest x-ray March 05, 2019. FINDINGS: The lungs remain grossly clear without pleural effusion or pneumothorax. Cardiac silhouet te size is stable and enlarged with ectatic aorta redemonstrated. Degenerative change left glenohumer al joint is seen. Some paucity of bowel gas. Scattered gas seen in nondistended stomach bubble along with scattered sm all and large bowel loops. Evaluation is suboptimal secondary to large body habitus. No free air. Cho lecystectomy clips suspected. Entire pelvis not included. IMPRESSION: 1. Cardiomegaly without acute pulmonary process. 2. Overall nonspecific but favor nonobstructive bowel gas pattern.
--- NOTE | 2021-07-19 09:50 | CT ---
EXAMINATION TYPE: CT brain wo con DATE OF EXAM: 07/19/2021 HISTORY: altered mental status CT DLP: 1260.4 mGycm. Automated Exposure Control for Dose Reduction was Utilized. TECHNIQUE: CT scan of the head is performed without contrast. COMPARISON: CT brain October 04, 2013. FINDINGS: There is no acute intracranial hemorrhage or midline shift identified. There is mild-to-m oderate diffuse ventricular and sulcal prominence consistent with diffuse cerebral atrophy greatest i n bilateral frontal and temporal lobes with interval degenerative progression from 2013 study. Stephens-w naeem matter differentiation is maintained. Motion artifact makes evaluation slightly suboptimal. The globes are intact and the visualized sinuses are clear. IMPRESSION: No acute intracranial hemorrhage or midline shift. Suboptimal study. There is mild-to-m oderate diffuse cerebral atrophy greatest over bilateral frontal and temporal lobes.
[2021-07-19] MEDS: LORazepam 2 MG/ML INJ IV STA ×4 (10:24→14:05)
--- NOTE | 2021-07-19 11:03 | CT ---
EXAMINATION TYPE: CT abdomen pelvis wo con DATE OF EXAM: 07/19/2021 HISTORY: back pain CT DLP: 1380 mGycm. Automated Exposure Control for Dose Reduction was Utilized. TECHNIQUE: CT scan of the abdomen and pelvis is performed without oral or IV contrast. COMPARISON: CT abdomen June 28, 2011 FINDINGS: Within the limitations of a non-contrast study, the following observations are made. LUNG BASES: Coronary artery calcification and/or stents. Motion artifact degradation LIVER/GB: Liver remains slightly low dense to spleen consistent with diffuse fatty infiltration bolus prominent than prior. Gallbladder is now surgically absent. PANCREAS: No significant abnormality is seen. SPLEEN: No significant abnormality is seen. ADRENALS: No significant abnormality is seen. KIDNEYS: No renal stones or hydronephrosis seen bilaterally. BOWEL: Few diverticula in the sigmoid colon. GENITAL ORGANS: Anteverted uterus with superior right 8.0 x 5.2 cm mass and posterior calcified 3.8 x 3.5 cm mass felt to reflect subserosal or pedunculated fibroids. Right ovary has a 2.3 x 2.1 cm thin -walled cyst or cystic lesion axial image 108. Left ovary is normal in size on axial image 108. Facia l scattered tiny inferior pelvic phlebolith LYMPH NODES: No greater than 1cm abdominal or pelvic lymph nodes are appreciated. OSSEOUS STRUCTURES: Grade 1 anterolisthesis L4 on L5. Moderate disc space narrowing with vacuum disc phenomenon L5-S1 level severe disc space narrowing T10-T11 level. OTHER: Moderate calcified plaque of the infrarenal abdominal aorta extends into branch vessels. IMPRESSION: No acute findings are evident. Suspect subserosal or pedunculated uterine fibroids. Corre late clinically.
[2021-07-19] MEDS ORDERED: AZTREONAM 2 GM in SODIUM CHLORIDE 0.9% 100 ML IVPB STA (11:06)
[2021-07-19] MEDS ORDERED: ACYCLOVIR SODIUM 800 MG in SODIUM CHLORIDE 0.9% 100 ML IV SCH (11:30)
[2021-07-19] MEDS ORDERED: NALOXONE 0.4 MG/ML 1 ML VIAL IV PRN (11:45)
[2021-07-19 12:27] LABS: Appearance,Urine Cloudy (Clear); Bilirubin,Urine Negative (Negative); Blood,Urine Moderate (Negative); Color,Urine Yellow; Glucose,Urine (UA) Negative (Negative); Hyaline Casts,Urine 1 /lpf (0-2); Ketones,Urine 2+ (Negative); Leukocyte Esterase,Urine Negative (Negative); Mucus,Urine Rare /hpf; Nitrite,Urine Negative (Negative); PH, Urine 5.5 (5.0-8.0); Protein,Urine 1+ (Negative); RBC,Urine 1 /hpf (0-5); Specific Gravity,Urine 1.018 (1.001-1.035); Squamous Epithelial Cell,Urine <1 /hpf (0-4); Urobilinogen,Urine <2.0 mg/dL (<2.0); WBC,Urine 20 /hpf (0-5)
[2021-07-19 12:34] LABS: Amphetamine Screen,Urine Detected (NotDetected); Benzodiazepines Screen,Urine Detected (NotDetected); Cocaine Screen,Urine Not Detected (NotDetected); Methadone Screen, Urine Not Detected (NotDetected); Opiate Screen,Urine Detected (NotDetected); Phencyclidine Screen,Urine Not Detected (NotDetected); Tricyclic Antidepressant,Urine Not Detected (NotDetected); Urn Cannabinoid Scrn Detected (NotDetected)
[2021-07-19 12:35] LABS: Barbiturate Screen,Urine Not Detected (NotDetected); Oxycodone Screen, Urine Not Detected (NotDetected)
--- NOTE | 2021-07-19 15:02 | P.CNNES ---
History of Present Illness Consult date: 07/19/21 Requesting physician: Jaems Yang Reason for Consult: acute delerium History of Present Illness: This is a 70-year-old woman with medical history of meningitis and was in a coma and life support for 1 week possibly in 2013 diabetes mellitus, hypertension, hyperlipidemia, fibromyalgia, sleep apnea who presented emergency department on 07/19/2021 the EMS for altered mental status. Some of the history was obtained from medical record that. Patient stated that the she began screaming as a result her neighbors called EMS and the patient does not know why she was screaming for. Per the ED note, EMS found the patient in her apartment covered with diarrhea is seems she was covered throughout her whole body and face. As well as per the ED note patient's vitals per EMS as well as glucose were normal. I personally spoke with the patient ED attending and he stated that to the son this happens when the patient uses meth. And had similar reaction in the past after using methamphetamine. He does not know where she gets amphetamine from. Per the son's significant other who is in the room, she stated that she had prior episode when she used meth it was similar to this but is not sure. She was last seen normal about 2 days ago and verbalizing appropriately and walks without assistance. Patient was on home medication of ibuprofen, ropinirole 2 mg daily at bedtime, baclofen 10 mg 1 tablet 3 times a day, tramadol 100 mg 1 tablet twice a day when necessary, metformin, spironolactone. Some of the workup in the hospital consisted of: Initial vital signs was blood pressure of 132/89, heart rate of 106, respiratory of 18, temperature of 98.3 Fahrenheit oral pulse ox of 98% room air. CT of the head is reported as no acute intracranial hemorrhage or midline shift. Suboptimal study. There is mild to moderate diffuse cerebral atrophy greatest over bilateral frontal and temporal lobe. Initial white blood cell is 20.7 thousand is predominantly neutrophilic. The creatinine is 1.66, BUN is 27, sodium is 144, initial serum glucose is 159, calcium is 10.4, magnesium is 1.9, AST of 33 and ALT of 23, ammonia is 28, CK levels 549 Nunn virus PCR was not detected. Urine toxicology screen is positive for opiates, amphetamine, methamphetamine, benzoyl, marijuana. Otherwise the rest of basic urine drug screen was not detected in the serum alcohol is the less than 10 Urinalysis it cloudy, nitrate was negative, leukocyte esterase negative, urine white blood cells 20 and my humble opinion this is not suggestive of urinary tract infection. In the ED the patient was restless and the she required the benzoyl as well as a morphine to lie still for imaging. Review of Systems Review of system is limited because of the patient's the confusion but apparent positive and negative as per HPI. 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., HX OF MENIGITIS- STATES IN COMA AND ON LIFE SUPPORT FOR 1 WEEK (?2013) History of Any Multi-Drug Resistant Organisms: None Reported Past Surgical History: Cholecystectomy, Hernia Repair, Orthopedic Surgery, Tonsillectomy, Tubal Ligation Additional Past Surgical History / Comment(s): LEFT KNEE ARTHROSCOPY, BMT AND MYRINGOPLASTY, umbilical hernia repair Past Anesthesia/Blood Transfusion Reactions: No Reported Reaction Additional Past Anesthesia/Blood Transfusion Reaction / Comment(s): STATES AFTER LAST EAR SX (11/2013) HAD SORE MUSCLES AND WAS WEAK FOR 3-4 DAYS Past Psychological History: No Psychological Hx Reported Smoking Status: Former smoker Past Alcohol Use History: None Reported Past Drug Use History: Marijuana - Past Family History Sister(s) Family Medical History: Cancer Brother(s) Family Medical History: Cancer Medications and Allergies Home Medications Medication Instructions Recorded Confirmed Type Ibuprofen [Motrin] 800 mg PO TID PRN 06/02/14 07/19/21 History metFORMIN HCL [Glucophage] 1,000 mg PO BID 06/02/14 07/19/21 History traMADol HCl [Ultram] 100 mg PO BID PRN 11/04/15 07/19/21 History Baclofen 10 mg PO TID 09/14/16 07/19/21 History sitaGLIPtin [Januvia] 100 mg PO DAILY 03/04/19 07/19/21 History Spironolactone-Hctz 25-25Mg 1 tab PO DAILY 07/21/20 07/19/21 History [Aldactazide 25-25Mg] rOPINIRole HCL [Requip] 2 mg PO HS 07/21/20 07/19/21 History Allergies Allergy/AdvReac Type Severity Reaction Status Date / Time cephalexin Allergy Anaphylaxis Verified 07/19/21 08:11 cephalexin monohydrate Allergy Anaphylaxis Verified 07/19/21 08:11 [From Keflex] Sulfa (Sulfonamide Allergy Rash/Hives Verified 07/19/21 08:11 Antibiotics) Physical Examination - Vital Signs Vital Signs: Vital Signs Temp Pulse Resp BP Pulse Ox 07/19/21 11:50 119 H 28 H 134/80 96 07/19/21 07:42 98.3 F 106 H 18 132/89 98 Intake and Output 07/18/21 07/19/21 07/19/21 22:59 06:59 14:59 Other: Weight 79.379 kg GENERAL: The patient is lying and is restless and is thrashing around the room moving side to side. She is in restraint and has sister who is trying to hold her down. HENT: Supple neck. No nuchal rigidity. CHEST: Could not assess because of patient condition. LUNG: Not labored breathing. ABDOMEN/GI: No abdominal distention. NEUROLOGICAL: Limited because of her condition and is very restless. As well received ativan. Higher mental function: Stupor and not following commands or verbalizing. Cranial nerves: The pupils are round, equal 2mm and reactive to light bilaterally. Primary gaze is midline. No facial weakness. Rest could not be assessed because of her condition. e Motor: Gait is deferred. The strength is limited since restless and move her body side to side. Normal tone and bulk. Cerebellum: Could not assess. Sensation: Could not assess. Plantars are upgoing bilaterally. Results - Laboratory Findings CBC and BMP: 07/19/21 08:48 07/19/21 08:48 Abnormal Lab Findings: Abnormal Labs 07/19/21 07/19/21 07/19/21 08:48 08:48 12:11 WBC 20.7 H RDW 16.6 H Neutrophils # 18.7 H Lymphocytes # 0.9 L Carbon Dioxide 17 L BUN 27 H Creatinine 1.66 H Glucose 159 H Calcium 10.4 H Creatine Kinase 546 H Total Protein 8.4 H Urine Appearance Cloudy H Urine Protein 1+ H Urine Ketones 2+ H Urine Blood Moderate H Urine WBC 20 H Urine Mucus Rare H Urine Opiates Screen Ur Amphetamines Screen U Methamphetamines Scrn U Benzodiazepines Scrn U Marijuana (THC) Screen 07/19/21 12:11 WBC RDW Neutrophils # Lymphocytes # Carbon Dioxide BUN Creatinine Glucose Calcium Creatine Kinase Total Protein Urine Appearance Urine Protein Urine Ketones Urine Blood Urine WBC Urine Mucus Urine Opiates Screen Detected H Ur Amphetamines Screen Detected H U Methamphetamines Scrn Detected H U Benzodiazepines Scrn Detected H U Marijuana (THC) Screen Detected H Assessment and Plan Assessment: * Altered mental status unknown exact cause. Possibly due to toxic encephalopa thy (polysubstance use. Per ED, the son notified them that this happens whenever patient uses meth). Cannot absolutely rule out encephalitis (has elevated wbc but no fevers. Elevated wbc can be reactive). * Polydrug use (UDS is positive for opiates, amphetamine, methamphetamine, benzo, marijuana). * Acute kidney insufficiency * History of meningitis and was in a coma last report for 1 week and that was possibly in 2013 * Diabetes mellitus and currently her blood sugar is slight elevated * Hypertension * Hyperlipidemia * History of fibromyalgia Plan: * In the ED the patient was given a total 6 mg of Ativan, 4 mg of morphine. The patient was also started on acyclovir 800mg q8hr. * Infection disease team is consulted. * Regarding decision of lumbar puncture, will defer decision to the I.D. team. The son was aggrevated when the tech when was trying to obtain labs ordered by E.D. team and the son asked them to stop and got hostile and the son had to be escorted out. For sure she will not lye still for it today. * I ordered MRI of the brain as well as an EEG. I'll not start the patient on antiepileptic drugs unless there is epileptiform discharges or seizure on the EEG. * I ordered TSH, vitamin B-12 and folate level. I started patient on thiamine 100 mg daily IV for now. * Started on Haldol 1mg [id number]. * We'll defer the rest of the medical management to the primary team. Thank you for the consultation. Buck Washington M.D. Neuro-hospitalist Time with Patient: Greater than 30
--- NOTE | 2021-07-19 16:18 | P.HPIM ---
History of Present Illness H&P Date: 07/19/21 Chief Complaint: Altered mental status changes and diarrhea Ms. Moore is a 70-year-old female with a past medical history of asthma, diabetes mellitus, fibromyalgia, hypertension, hyperlipidemia, osteoarthritis, obstructive sleep apnea brought into the emergency Department with a chief complaint of altered mental status changes. Patient is currently in the ER and cannot provide any history. She is in 4 point restraints and having myoclonic activity. As per chart review and nursing staff report patient was screaming as it is her neighbor's called EMS. When EMS arrival patient was covered in diarrhea and they brought her to the hospital. As per son's statement, this happens to her when the patient uses meth. She had a similar reaction in the past and she used methamphetamine. Patient was in her usual state of health couple of days back as seen by family members. On reviewing the medication she is on metformin, Motrin, tramadol, baclofen, Januvia, spirono lactone/hydrochlorothiazide, ropinirole. In the ED at the time of admission patient's vital signs temperature 98.3, heart rate 106, respiratory rate 18, blood pressure 132/80,Saturating 98% on room air. Patient had a CAT scan of the brain showing no acute intracranial hemorrhage or midline shift. Mild to moderate diffuse cerebral atrophy greatest over the bifrontal and temporal regions. CAT scan of the abdomen showing no acute findings possibly uterine fibroids. On reviewing the labs patient's white count of 20.7, hemoglobin 12.4, platelets 435. Sodium 144, depression 4.5, chloride 106, bicarb 17, bili and 27, creatinine 1.66, lactic acid 1.7, calcium 10.4, magnesium 1.9. Patient's and urine analysis shows 2+ ketones with moderate blood negative for leukocyte esterase. 20 WBCs. Urine drug screen was positive for opiates, amphetamines, methamphetamines, benzos and marijuana. 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., HX OF MENIGITIS- STATES IN COMA AND ON LIFE SUPPORT FOR 1 WEEK (?2013) History of Any Multi-Drug Resistant Organisms: None Reported Past Surgical History: Cholecystectomy, Hernia Repair, Orthopedic Surgery, Tonsillectomy, Tubal Ligation Additional Past Surgical History / Comment(s): LEFT KNEE ARTHROSCOPY, BMT AND MYRINGOPLASTY, umbilical hernia repair Past Anesthesia/Blood Transfusion Reactions: No Reported Reaction Additional Past Anesthesia/Blood Transfusion Reaction / Comment(s): STATES AFTER LAST EAR SX (11/2013) HAD SORE MUSCLES AND WAS WEAK FOR 3-4 DAYS Past Psychological History: No Psychological Hx Reported Smoking Status: Former smoker Past Alcohol Use History: None Reported Past Drug Use History: Marijuana - Past Family History Sister(s) Family Medical History: Cancer Brother(s) Family Medical History: Cancer Medications and Allergies Home Medications Medication Instructions Recorded Confirmed Type Ibuprofen [Motrin] 800 mg PO TID PRN 06/02/14 07/19/21 History metFORMIN HCL [Glucophage] 1,000 mg PO BID 06/02/14 07/19/21 History traMADol HCl [Ultram] 100 mg PO BID PRN 11/04/15 07/19/21 History Baclofen 10 mg PO TID 09/14/16 07/19/21 History sitaGLIPtin [Januvia] 100 mg PO DAILY 03/04/19 07/19/21 History Spironolactone-Hctz 25-25Mg 1 tab PO DAILY 07/21/20 07/19/21 History [Aldactazide 25-25Mg] rOPINIRole HCL [Requip] 2 mg PO HS 07/21/20 07/19/21 History Allergies Allergy/AdvReac Type Severity Reaction Status Date / Time cephalexin Allergy Anaphylaxis Verified 07/19/21 08:11 cephalexin monohydrate Allergy Anaphylaxis Verified 07/19/21 08:11 [From Keflex] Sulfa (Sulfonamide Allergy Rash/Hives Verified 07/19/21 08:11 Antibiotics) Physical Exam Vitals: Vital Signs Temp Pulse Resp BP Pulse Ox 07/19/21 11:50 119 H 28 H 134/80 96 07/19/21 07:42 98.3 F 106 H 18 132/89 98 Intake and Output 07/18/21 07/19/21 07/19/21 22:59 06:59 14:59 Other: Weight 79.379 kg PHYSICAL EXAMINATION: GENERAL: Patient is in four point restraints. She is thrashing and moving from [id number] HEENT: Pupils are round and equally reacting to light. No scleral icterus. No conjunctival pallor. Normocephalic, atraumatic. No pharyngeal erythema. No thyromegaly. CARDIOVASCULAR: Tachycardia PULMONARY: Chest is clear to auscultation, no wheezing or crackles. ABDOMEN: Soft, nondistended MUSCULOSKELETAL: No joint swelling or deformity. EXTREMITIES: No cyanosis, clubbing, or pedal edema. NEUROLOGICAL: Myoclonus and tremors Results CBC & Chem 7: 07/19/21 08:48 07/19/21 08:48 Labs: Abnormal Lab Results - Last 24 Hours (Table) 07/19/21 07/19/21 07/19/21 Range/Units 08:48 08:48 12:11 WBC 20.7 H (3.8-10.6) k/uL RDW 16.6 H (11.5-15.5) % Neutrophils # 18.7 H (1.3-7.7) k/uL Lymphocytes # 0.9 L (1.0-4.8) k/uL Carbon Dioxide 17 L (22-30) mmol/L BUN 27 H (7-17) mg/dL Creatinine 1.66 H (0.52-1.04) mg/dL Glucose 159 H (74-99) mg/dL Calcium 10.4 H (8.4-10.2) mg/dL Creatine Kinase 546 H (30-135) U/L Total Protein 8.4 H (6.3-8.2) g/dL Urine Appearance Cloudy H (Clear) Urine Protein 1+ H (Negative) Urine Ketones 2+ H (Negative) Urine Blood Moderate H (Negative) Urine WBC 20 H (0-5) /hpf Urine Mucus Rare H (None) /hpf Urine Opiates Screen (NotDetected) Ur Amphetamines Screen (NotDetected) U Methamphetamines Scrn (NotDetected) U Benzodiazepines Scrn (NotDetected) U Marijuana (THC) Screen (NotDetected) 07/19/21 Range/Units 12:11 WBC (3.8-10.6) k/uL RDW (11.5-15.5) % Neutrophils # (1.3-7.7) k/uL Lymphocytes # (1.0-4.8) k/uL Carbon Dioxide (22-30) mmol/L BUN (7-17) mg/dL Creatinine (0.52-1.04) mg/dL Glucose (74-99) mg/dL Calcium (8.4-10.2) mg/dL Creatine Kinase (30-135) U/L Total Protein (6.3-8.2) g/dL Urine Appearance (Clear) Urine Protein (Negative) Urine Ketones (Negative) Urine Blood (Negative) Urine WBC (0-5) /hpf Urine Mucus (None) /hpf Urine Opiates Screen Detected H (NotDetected) Ur Amphetamines Screen Detected H (NotDetected) U Methamphetamines Scrn Detected H (NotDetected) U Benzodiazepines Scrn Detected H (NotDetected) U Marijuana (THC) Screen Detected H (NotDetected) Assessment and Plan Assessment: ASSESSMENT Encephalopathy secondary to polysubstance abuse Urine drug screen positive for amphetamines, methamphetamines, benzos, opiates and marijuana Acute kidney injury Possible UTI Asthma Diabetes mellitus Hyperlipidemia Hypertension Fibromyalgia Multiple joint osteoarthritis Obstructive sleep apnea History of meningitis in 2014 Former smoker History of polysubstance abuse PLAN: Patient is currently in 4 point restraints and trashing in bed. Patient received 6 mg of Ativan so far. She has IV fluids running at 130 mL/h. We will consult ICU as the patient has myoclonic/tremor like activity every 2-3 mins. Neurology and ID consulted. Patient received acyclovir empirically, less likely that it is meningitis. Patient also received a dose of aztreonam in the ED. Will continue to monitor the patient closely and further recommendations depending on the progress of the patient.
[2021-07-19] MEDS ORDERED: HALOPERIDOL LACTATE 5 MG/ML 1 ML VIAL IM PRN (17:03)
--- NOTE | 2021-07-19 17:03 | P.CNPUL ---
History of Present Illness Consult date: 07/19/21 Chief complaint: Acute agitation History of present illness: 70-year-old female patient, who is coming into the emergency department because of altered mentation. The patient was quite agitated. The patient was found to be restless and screaming at home and quite agitated. Her neighbors called EMS and the patient was brought into the hospital. EMS found the patient in apartment covered with diarrhea and this was involving the entire body including the face. Her blood sugar was normal on the scene. No neck stiffness. Hemodynamically stable. She has multiple comorbidities. She is morbidly obese and she suffers from chronic pain and she has back pain due to degenerative arthritis and bulging this in addition to fibromyalgia and she has a positive TANIYA and has not had the typical lupus symptoms. Other comorbid conditions include obstructive sleep apnea, nontolerant to CPAP therapy, hypertension and hyperlipidemia diabetes mellitus and substance abuse. According to the family, this type of reaction happens to her when she takes methamphetamine, and she has had similar reactions in the past. Her last normal state was around 2 days ago and at that time the patient was walking and talking and there are verbalizing appropriately. The patient came into the emergency and pulmonary workup showed a urine drug screen that was positive for amphetamine, methamphetamine, marijuana, and opiates. Alcohol was nondetected and was less than 10. Her CAT scan of the brain showed mild to moderate diffuse cerebral atrophy without any acute abnormalities. White cell count was 20.7. She was in acute kidney injury with a creatinine of 1.66 with a BMI of 27 and a sodium level of 144. LFTs were within normal limits. CPK was mildly elevated at 549. Coreg 19 testing was negative. UA was negative. CAT scan of the abdomen and pelvis was negative. Chest x-ray was negative. The patient is currently on room air oxygen. She wi th rash and she was moving all 4 extremities and she will try to jump out of bed. Upon repeated stimulation, I was able to do some limited communication with her. She was able to tell me her name and nothing more than that. She gets quite agitated and she is currently in 4. restraints. In the emergency, she was given a total of 6 mg of Ativan without much of an improvement. No neck stiffness. No head trauma.. She is hemodynamically stable. Review of Systems ROS unobtainable: due to mental status Past Medical History Past Medical History: Asthma, Diabetes Mellitus, Fibromyalgia, Hyperlipidemia, Hypertension, Musculoskeletal Disorder, Osteoarthritis (OA), Sleep Apnea/CPAP/BIPAP Additional Past Medical History / Comment(s): Obesity, obstructive sleep apnea not using CPAP therapy, positive TANIYA, asthma, diabetes mellitus, fibromyalgia, hypertension, hyperlipidemia, degenerative arthritis, chronic back pain along with bulging disc involving the spine, remote history of meningitis back in 2013 according to the family she was on life support back then. Details are not available. History of Any Multi-Drug Resistant Organisms: None Reported Past Surgical History: Cholecystectomy, Hernia Repair, Orthopedic Surgery, Tonsillectomy, Tubal Ligation Additional Past Surgical History / Comment(s): LEFT KNEE ARTHROSCOPY, BMT AND MYRINGOPLASTY, umbilical hernia repair Past Anesthesia/Blood Transfusion Reactions: No Reported Reaction Additional Past Anesthesia/Blood Transfusion Reaction / Comment(s): STATES AFTER LAST EAR SX (11/2013) HAD SORE MUSCLES AND WAS WEAK FOR 3-4 DAYS Past Psychological History: No Psychological Hx Reported Smoking Status: Former smoker Past Alcohol Use History: None Reported Past Drug Use History: Marijuana - Past Family History Sister(s) Family Medical History: Cancer Brother(s) Family Medical History: Cancer Medications and Allergies Home Medications Medication Instructions Recorded Confirmed Type Ibuprofen [Motrin] 800 mg PO TID PRN 06/02/14 07/19/21 History metFORMIN HCL [Glucophage] 1,000 mg PO BID 06/02/14 07/19/21 History traMADol HCl [Ultram] 100 mg PO BID PRN 11/04/15 07/19/21 History Baclofen 10 mg PO TID 09/14/16 07/19/21 History sitaGLIPtin [Januvia] 100 mg PO DAILY 03/04/19 07/19/21 History Spironolactone-Hctz 25-25Mg 1 tab PO DAILY 07/21/20 07/19/21 History [Aldactazide 25-25Mg] rOPINIRole HCL [Requip] 2 mg PO HS 07/21/20 07/19/21 History Allergies Allergy/AdvReac Type Severity Reaction Status Date / Time cephalexin Allergy Anaphylaxis Verified 07/19/21 08:11 cephalexin monohydrate Allergy Anaphylaxis Verified 07/19/21 08:11 [From Keflex] Sulfa (Sulfonamide Allergy Rash/Hives Verified 07/19/21 08:11 Antibiotics) Physical Exam Vitals: Vital Signs Temp Pulse Resp BP Pulse Ox 07/19/21 16:17 125 H 28 H 94 L 07/19/21 15:00 124 H 28 H 143/119 96 07/19/21 11:50 119 H 28 H 134/80 96 07/19/21 07:42 98.3 F 106 H 18 132/89 98 Intake and Output 07/19/21 07/19/21 07/19/21 06:59 14:59 22:59 Other: Weight 79.379 kg GENERAL: The patient is lying and is restless and is thrashing around the room moving side to side. She is in restraint and has sister who is trying to hold her down. The patient is currently in 4. restraints. She continues to thrashing gets agitated. She is unable to communicate. She withdraws to painful stimulation of all 4 extremities. She is moving all 4 extremities without any limitation. Head exam was generally normal. There was no scleral icterus or corneal arcus. Mucous membranes were moist. HENT: Supple neck. No nuchal rigidity. CHEST: Could not assess because of patient condition. Lungs were clear to auscultation and percussion, and with normal diaphragmatic excursion. No wheezes or rales were noted. Cardiac exam revealed the PMI to be normally situated and sized. The rhythm was regular and no extrasystoles were noted during several minutes of auscultation. The first and second heart sounds were normal and physiologic splitting of the second heart sound was noted. There were no murmurs, rubs, clicks, or gallops. Abdominal exam revealed normal bowel sounds. The abdomen was soft, non-tender, and without masses, organomegaly, or appreciable enlargement of the abdominal aorta. Examination of the extremities revealed easily palpable radial, femoral and pedal pulses. There was no cyanosis, clubbing or edema. Examination of the skin revealed no evidence of significant rashes, suspicious appearing nevi or other concerning lesions. NEUROLOGICAL: Limited because of her condition and is very restless. As well received ativan. Higher mental function: Stupor and not following commands or verbalizing. Cranial nerves: The pupils are round, equal 2mm and reactive to light bilaterally. Primary gaze is midline. No facial weakness. Rest could not be assessed because of her condition. Motor: Gait is deferred. The strength is limited since restless and move her body side to side. Normal tone and bulk. Cerebellum: Could not assess. Sensation: Could not assess. Plantars are upgoing bilaterally. Results - Laboratory Findings CBC and BMP: 07/19/21 08:48 07/19/21 08:48 Abnormal lab findings: Abnormal Labs 07/19/21 07/19/21 07/19/21 08:48 08:48 12:11 WBC 20.7 H RDW 16.6 H Neutrophils # 18.7 H Lymphocytes # 0.9 L Carbon Dioxide 17 L BUN 27 H Creatinine 1.66 H Glucose 159 H Calcium 10.4 H Creatine Kinase 546 H Total Protein 8.4 H Urine Appearance Cloudy H Urine Protein 1+ H Urine Ketones 2+ H Urine Blood Moderate H Urine WBC 20 H Urine Mucus Rare H Urine Opiates Screen Ur Amphetamines Screen U Methamphetamines Scrn U Benzodiazepines Scrn U Marijuana (THC) Screen 07/19/21 12:11 WBC RDW Neutrophils # Lymphocytes # Carbon Dioxide BUN Creatinine Glucose Calcium Creatine Kinase Total Protein Urine Appearance Urine Protein Urine Ketones Urine Blood Urine WBC Urine Mucus Urine Opiates Screen Detected H Ur Amphetamines Screen Detected H U Methamphetamines Scrn Detected H U Benzodiazepines Scrn Detected H U Marijuana (THC) Screen Detected H - Diagnostic Findings Chest x-ray: image reviewed Assessment and Plan Plan: 1 acute delirium/severe agitation, could be related to methamphetamine reaction/overdose. Urine drug screen was positive. CAT scan of the brain is negative. The patient is having acute delirium/psychosis with possible seizure activity although this is not certain as the patient did not demonstrate any a utomatic behavior or any other clinical features of seizures. Underlying encephalitis cannot be completely ruled out. The patient was done and acyclovir. 2 polysubstance abuse and the dressing was positive for amphetamine, methamphetamine, marijuana and opiates 3 acute kidney injury secondary to above 4 obstructive sleep apnea, per history and the patient has not taken any form of CPAP therapy 5 hypertension 6 hyperlipidemia 7 diabetes mellitus 8 fibromyalgia 9 chronic pain with degenerative arthritis and disc disease 10 acute leukocytosis 11 positive TANIYA without indication of underlying lupus Plan Transfer the patient to the intensive care unit. Suspect amphetamine overdose. Will use benzodiazepine and antipsychotic medications such as Haldol to control the situation. Nevertheless, I'm a bit worried about the patient's respiratory status with use of benzodiazepine judi inman that she has typical features of obstructive sleep apnea which short neck and crowding of posterior pharynx and she has obstructive sleep apnea and she can easily hyperventilate and cause upper airway obstruction. I'm more inclined and controlling this patient's agitation with Precedex. The patient will be transferred to the intensive care unit and be placed on Precedex drip to control her agitation. Meanwhile she'll be kept hydrated with IV fluids. Monitor the airway. We will use Haldol 1 mg every 2-3 hours on an as needed basis for agitation. We'll monitor the electrolytes. We'll monitor the blood sugar. Use sliding scale insulin coverage. Heparin subcu for DVT prophylaxis. Continue IV acyclovir. Lumbar puncture with the next 24 hours if no improvement and the mentation. EEG is to follow. Neurology consultation. We'll continue to follow. Chest and the patient ICU for now.
[2021-07-19] MEDS ORDERED: [UNRECOGNIZED DRUG - OTHER] IV ONE (17:14)
[2021-07-19] MEDS: DEXMEDETOMIDINE/0.9% NACL(PMX) 400 MCG in EMPTY BAG 1 BAG IV SCH ×2 (17:20→20:17)
[2021-07-19] MEDS: THIAMINE 100 MG/ML 2 ML VIAL IVP SCH (18:01)
[2021-07-19] MEDS: SODIUM CHLORIDE 0.9% 1,000 ML IV SCH ×2 (18:01→20:14)
[2021-07-19] MEDS: HALOPERIDOL LACTATE 5 MG/ML 1 ML VIAL IVP PRN ×6 (18:48→23:14)
[2021-07-19 18:59] LABS: Glucose,Whole Blood 130 mg/dL (75-99)
[2021-07-19] MEDS ORDERED: HALOPERIDOL LACTATE 5 MG/ML 1 ML VIAL IVP STA (19:50)
[2021-07-19] MEDS ORDERED: DILTIAZEM DRIP BOLUS FROM BAG 1 MG SOLN IV ONE (20:00)
[2021-07-19] MEDS: DILTIAZEM 125 MG in SODIUM CHLORIDE 0.9% 100 ML IV SCH (20:14)
[2021-07-19 21:32] LABS: Glucose,Whole Blood 90 mg/dL (75-99)
[2021-07-19] MEDS ORDERED: VANCOMYCIN IV PER PHARMACY 1 EACH MISC MISCELLANE PRN (23:20)
--- NOTE | 2021-07-19 23:20 | P.CONS ---
History of Present Illness - Reason for Consult Consult date: 07/19/21 encephalitis Requesting physician: Modesta Corbett - Chief Complaint mental status changes x 1 day - History of Present Illness History of present illness : Patient is 70-year-old female who was brought into the ER by EMS for altered mental status apparently patient EMS was called by the neighbor as the patient was screaming patient apparently told name and date of to the ER physician but no other information will be obtained per EMS report patient did have stable vital signs and normal blood sugar on upon arrival however her apartment was covered with stool and the patient was covered with stools from head to toe, with the symptom the patient has been evaluated by the ER physician on arrival to the ER patient was afebrile subsequent spike a fever of 101 F patient did have a normal blood pressure did have white count of 20,000 with a left shift did have elevated BUN and creatinine urine was relatively negative urine drug screen was positive for opiates amphetamines benzodiazepines patient did have a CT of the brain that was negative for any bleed did have a CT of abdominal pelvis no acute findings are evident suspect uterine fibroids patient has been admitted to ICU with concern for possible encephalitis and the patient has been empirically started on acyclovir Review of system: Positive point has been mentioned in HPI complete review could not be obtained because of underlying mental status. Past medical history : Reviewed, documented below Past surgical history : Reviewed, documented below Social history: Reviewed, documented below Medications: Reviewed, as documented below EXAMINATION: Vital sigans= Reviewed and documented below GENERAL DESCRIPTION: Elderly female lying in bed, no distress. No tachypnea or accessory muscle of respiration use. HEENT: Shows Pallor , no scleral icterus. Oral mucous membrane is dry. NECK: Trachea central, no thyromegaly. LUNGS: Unlabored breathing. Decreased breath sound at bases. No wheeze or crackle. HEART: S1, S2, regular rate and rhythm. ABDOMEN: Soft, no tenderness , guarding or rigidity EXTREMITIES: No edema of feet. SKIN: No rash, no masses palpable. NEUROLOGICAL: The patient is screaming on answer any question orientation could not be determined LABS AND RADIOLOGY: Reviewed results see below Assessment : 1-patient presented to hospital with mental status changes in this patient who did have significant diarrhea did have a fever and elevated white count however CT abdominal pelvis did not show any acute abnormality urine has been negative as well , underlying HOSTEL PARENT infection at this time cannot be excluded, though some of her symptoms could be related to the drug overdose as the patient urine was positive for multiple medication 2-patient with cephalosporin allergy that would limit the number of antibiotics safe to use Plan: 1-vancomycin pharmacy to dose with a target trough of 15 while watching kidney function and Vanco trough closely. 2-meropenem 1 g every 8 hour 3-acyclovir 10 mg/kg every 8 hour 4-obtain LP once the visitation is resolved and the patient can lie still 5-IV fluid We will follow on clinical condition and cultures to further adjust medication if needed Thank you for this consultation we will follow the patient along with you 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., HX OF MENIGITIS- STATES IN COMA AND ON LIFE SUPPORT FOR 1 WEEK (?2013) History of Any Multi-Drug Resistant Organisms: None Reported Past Surgical History: Cholecystectomy, Hernia Repair, Orthopedic Surgery, Tonsillectomy, Tubal Ligation Additional Past Surgical History / Comment(s): LEFT KNEE ARTHROSCOPY, BMT AND MYRINGOPLASTY, umbilical hernia repair Past Anesthesia/Blood Transfusion Reactions: No Reported Reaction Additional Past Anesthesia/Blood Transfusion Reaction / Comm: STATES AFTER LAST EAR SX (11/2013) HAD SORE MUSCLES AND WAS WEAK FOR 3-4 DAYS Past Psychological History: No Psychological Hx Reported Smoking Status: Former smoker Past Alcohol Use History: None Reported Past Drug Use History: Marijuana - Past Family History Sister(s) Family Medical History: Cancer Brother(s) Family Medical History: Cancer Medications and Allergies Home Medications Medication Instructions Recorded Confirmed Type Ibuprofen [Motrin] 800 mg PO TID PRN 06/02/14 07/19/21 History metFORMIN HCL [Glucophage] 1,000 mg PO BID 06/02/14 07/19/21 History traMADol HCl [Ultram] 100 mg PO BID PRN 11/04/15 07/19/21 History Baclofen 10 mg PO TID 09/14/16 07/19/21 History sitaGLIPtin [Januvia] 100 mg PO DAILY 03/04/19 07/19/21 History Spironolactone-Hctz 25-25Mg 1 tab PO DAILY 07/21/20 07/19/21 History [Aldactazide 25-25Mg] rOPINIRole HCL [Requip] 2 mg PO HS 07/21/20 07/19/21 History Allergies Allergy/AdvReac Type Severity Reaction Status Date / Time cephalexin Allergy Anaphylaxis Verified 07/19/21 08:11 cephalexin monohydrate Allergy Anaphylaxis Verified 07/19/21 08:11 [From Keflex] Sulfa (Sulfonamide Allergy Rash/Hives Verified 07/19/21 08:11 Antibiotics) Physical Exam Vitals: Vital Signs Temp Pulse Resp BP Pulse Ox 07/19/21 16:17 125 H 28 H 94 L 07/19/21 15:00 124 H 28 H 143/119 96 07/19/21 11:50 119 H 28 H 134/80 96 07/19/21 07:42 98.3 F 106 H 18 132/89 98 Intake and Output 07/19/21 07/19/21 07/19/21 06:59 14:59 22:59 Other: Weight 79.379 kg Results CBC & Chem 7: 07/19/21 08:48 07/19/21 08:48 Labs: Abnormal Lab Results - Last 24 Hours (Table) 07/19/21 07/19/21 07/19/21 Range/Units 08:48 08:48 12:11 WBC 20.7 H (3.8-10.6) k/uL RDW 16.6 H (11.5-15.5) % Neutrophils # 18.7 H (1.3-7.7) k/uL Lymphocytes # 0.9 L (1.0-4.8) k/uL Carbon Dioxide 17 L (22-30) mmol/L BUN 27 H (7-17) mg/dL Creatinine 1.66 H (0.52-1.04) mg/dL Glucose 159 H (74-99) mg/dL Calcium 10.4 H (8.4-10.2) mg/dL Creatine Kinase 546 H (30-135) U/L Total Protein 8.4 H (6.3-8.2) g/dL Urine Appearance Cloudy H (Clear) Urine Protein 1+ H (Negative) Urine Ketones 2+ H (Negative) Urine Blood Moderate H (Negative) Urine WBC 20 H (0-5) /hpf Urine Mucus Rare H (None) /hpf Urine Opiates Screen (NotDetected) Ur Amphetamines Screen (NotDetected) U Methamphetamines Scrn (NotDetected) U Benzodiazepines Scrn (NotDetected) U Marijuana (THC) Screen (NotDetected) 07/19/21 Range/Units 12:11 WBC (3.8-10.6) k/uL RDW (11.5-15.5) % Neutrophils # (1.3-7.7) k/uL Lymphocytes # (1.0-4.8) k/uL Carbon Dioxide (22-30) mmol/L BUN (7-17) mg/dL Creatinine (0.52-1.04) mg/dL Glucose (74-99) mg/dL Calcium (8.4-10.2) mg/dL Creatine Kinase (30-135) U/L Total Protein (6.3-8.2) g/dL Urine Appearance (Clear) Urine Protein (Negative) Urine Ketones (Negative) Urine Blood (Negative) Urine WBC (0-5) /hpf Urine Mucus (None) /hpf Urine Opiates Screen Detected H (NotDetected) Ur Amphetamines Screen Detected H (NotDetected) U Methamphetamines Scrn Detected H (NotDetected) U Benzodiazepines Scrn Detected H (NotDetected) U Marijuana (THC) Screen Detected H (NotDetected)
[2021-07-19] MEDS: MEROPENEM 1 GM in SODIUM CHLORIDE 0.9% 100 ML IVPB SCH (23:38)
[2021-07-20] MEDS: ACYCLOVIR SODIUM 800 MG in SODIUM CHLORIDE 0.9% 100 ML IV SCH ×2 (00:06→11:25)
[2021-07-20] MEDS: HALOPERIDOL LACTATE 5 MG/ML 1 ML VIAL IVP PRN ×6 (00:16→23:41)
[2021-07-20] MEDS ORDERED: VANCOMYCIN 1,500 MG in SODIUM CHLORIDE 0.9% 250 ML IVPB SCH ×2 (01:00→21:00)
[2021-07-20] MEDS: DEXMEDETOMIDINE/0.9% NACL(PMX) 400 MCG in EMPTY BAG 1 BAG IV SCH ×3 (02:06→23:36)
[2021-07-20] MEDS: SODIUM CHLORIDE 0.9% 1,000 ML IV SCH ×2 (02:07→12:33)
[2021-07-20 05:16] LABS: Anisocytosis Slight; HCT 33.6 % (34.0-46.0); HGB 10.6 gm/dL (11.4-16.0); Hypochromasia Slight; MCH 27.2 pg (25.0-35.0); MCHC 31.6 g/dL (31.0-37.0); MCV 85.9 fL (80.0-100.0); Platelet Count 324 k/uL (150-450); RBC 3.91 m/uL (3.80-5.40); RDW 16.8 % (11.5-15.5)
[2021-07-20 05:39] LABS: C Reactive Protein 8.9 mg/dL (<1.0); Magnesium 2.4 mg/dL (1.6-2.3); Potassium 4.5 mmol/L (3.5-5.1)
[2021-07-20] MEDS ORDERED: SODIUM BICARB 8.4% 50 ML SYR (1 MEQ/ML) IV STA (05:50)
[2021-07-20 06:03] LABS: Glucose,Whole Blood 131 mg/dL (75-99)
[2021-07-20 06:06] LABS: Folate, Serum 13.9 ng/mL
[2021-07-20 06:13] LABS: Erythrocyte Sedimentation Rate 39 mm/hr (0-20)
[2021-07-20] MEDS: DEXTROSE 5% IN WATER 1,000 ML with SODIUM BICARB (1 MEQ/ML) 150 ML IV SCH ×3 (07:15→22:07)
[2021-07-20] MEDS: MEROPENEM 1 GM in SODIUM CHLORIDE 0.9% 100 ML IVPB SCH ×2 (08:06→15:06)
[2021-07-20] MEDS: PANTOPRAZOLE 40 MG/10 ML VIAL IVP SCH (08:06)
[2021-07-20] MEDS: THIAMINE 100 MG/ML 2 ML VIAL IVP SCH (08:06)
[2021-07-20] MEDS ORDERED: HEPARIN SODIUM,PORCINE/PF 5,000 UNIT/0.5 ML SYRINGE SQ SCH (09:00)
--- NOTE | 2021-07-20 09:37 | EEG ---
ELECTROENCEPHALOGRAM REPORT DATE OF SERVICE: 07/20/2021. CLINICAL HISTORY: This is a 70-year-old woman with altered mental status. The video EEG is obtained to evaluate for seizure epileptiform activity. RELEVANT MEDICATION: The patient received 6 mg of Ativan in the ED. The patient is on IV Precedex. Otherwise, the patient is not on any antiepileptic drug. EEG TYPE: A routine 21 channel EEG is performed with video using the 10/20 electrode placement system. DESCRIPTION: Awake state is obtained. The background consists of 4 to 5 hertz nonrhythmic low-to- moderate voltage theta activity and at times intermixed with delta activity. There is no focal slowing seen. There is electrode artifact over the O2-lead. Interictal and ictal is none. ACTIVATION PROCEDURES: Photic stimulation and hyperventilation are not performed. CLINICAL INTERPRETATION: This is an abnormal routine EEG. The background slowing is suggestive of moderate to severe encephalopathy. There are no focal slowing, epileptiform discharges or seizure on the EEG. Clinical correlation is recommended. RICK / NURY: [id number] / BARBARA
--- NOTE | 2021-07-20 10:09 | P.PN ---
Subjective Progress Note Date: 07/20/21 70-year-old female patient, who is coming into the emergency department because of altered mentation. The patient was quite agitated. The patient was found to be restless and screaming at home and quite agitated. Her neighbors called EMS and the patient was brought into the hospital. EMS found the patient in apartment covered with diarrhea and this was involving the entire body including the face. Her blood sugar was normal on the scene. No neck stiffness. Hemodynamically stable. She has multiple comorbidities. She is morbidly obese and she suffers from chronic pain and she has back pain due to degenerative arthritis and bulging this in addition to fibromyalgia and she has a positive TANIYA and has not had the typical lupus symptoms. Other comorbid conditions include obstructive sleep apnea, nontolerant to CPAP therapy, hypertension and hyperlipidemia diabetes mellitus and substance abuse. According to the family, this type of reaction happens to her when she takes methamphetamine, and she has had similar reactions in the past. Her last normal state was around 2 days ago and at that time the patient was walking and talking and there are verbalizing appropriately. The patient came into the emergency and pulmonary workup showed a urine drug screen that was positive for amphetamine, methamphetamine, marijuana, and opiates. Alcohol was nondetected and was less than 10. Her CAT scan of the brain showed mild to moderate diffuse cerebral atrophy without any acute abnormalities. White cell count was 20.7. She was in acute kidney injury with a creatinine of 1.66 with a BMI of 27 and a sodium level of 144. LFTs were within normal limits. CPK was mildly elevated at 549. Coreg 19 testing was negative. UA was negative. CAT scan of the abdomen and pelvis was negative. Chest x-ray was negative. The patient is currently on room air oxygen. She with rash and she was moving all 4 extremities and she will try to jump out of bed. Upon repeated stimulation, I was able to do some limited communication with her. She was able to tell me her name and nothing more than that. She gets quite agitated and she is currently in 4. restraints. In the emergency, she was given a total of 6 mg of Ativan without much of an improvement. No neck stiffness. No head trauma.. She is hemodynamically stable. 28 2020, the patient is being seen for a follow-up. As mentioned earlier, the patient was suspected to have a methamphetamine overdose or toxicity. Her presentation was typical as the patient was having acute delirium/psychosis-type of picture. The patient came in to the ICU. She remains quite agitated despite being on Precedex0 is still having episodes of 0.5 mcg/kg/h. The patient was also given Haldol and I think the estimated dose of Haldol was in the order of 10 mg overnight. This morning, the patient is quite sedated. No agitation. No seizure activity. EEG was done and showed no epileptic focus in this patient. Neck is not stiff. She is afebrile. Meanwhile, she has developed a mild degree of rhabdomyolysis. CPK level is up to 2500 and the patient has a anion gap metabolic acidosis. Serum bicarbonate dropped down to 8 and the patient's anion gap is currently at 21. Renal function is improved in the creatinine is at 1.1. LDH level was 1359 with a CRP level of 0.8.9. The patient is hemodynamically stable. She was given a total of 100 mEq of sodium bicarb IV push and currently she is on a bicarb drip which is running at the rate of 150 mL an hour. She is withdrawing to painful stimulation all 4 extremities. Otherwise she is in under the effect of Haldol and she is quite sedated at this point in time. No yelling. No agitation. No thrashing activity. Urine output is in order of 100 mL an hour. She is currently on room air oxygen. Objective - Vital Signs Vital signs: Vital Signs Temp 98.0 F 07/20/21 08:00 Pulse 90 07/20/21 08:30 Resp 61 H 07/20/21 08:30 BP 110/60 07/20/21 08:30 Pulse Ox 93 L 07/20/21 08:30 Intake & Output 07/19/21 07/20/21 07/20/21 18:59 06:59 18:59 Intake Total 80.656 1702.884 500 Output Total 60 1250 275 Balance 20.656 452.884 225 Weight 79.379 kg 89.4 kg Intake: IV 75 1075 100 Sodium Chloride 0.9% 1, 75 1075 100 000 ml @ 130 mls/hr IV . Q7H42M [facility] Rx#:[id number] Intake, IV Titration 5.656 627.884 400 Amount Acyclovir Sodium 800 mg 100 In Sodium Chloride 0.9% 100 ml @ 100 mls/hr IV Q12H [facility] Rx#:[id number] Dexmedetomidine/0.9% NaCl 5.656 208.717 (Pmx) 400 mcg In Empty Bag 1 bag @ 0.2 MCG/KG/HR 3.969 mls/hr IV .Q24H [facility] Rx#:[id number] Dextrose 5% in Water 1, 300 000 ml @ 150 mls/hr IV . Q7H40M [facility] with Sodium Bicarb (1 Meq/ml) 150 ml Rx#:[id number] Diltiazem 125 mg In 94.167 Sodium Chloride 0.9% 100 ml @ 10 MG/HR 10 mls/hr IV .[id number] [facility] Rx#: [id number] Meropenem 1 gm In Sodium 100 100 Chloride 0.9% 100 ml @ 33 .3 mls/hr IVPB Q8HR [facility] Rx#:[id number] Vancomycin 1,500 mg In 125 Sodium Chloride 0.9% 250 ml @ 125 mls/hr IVPB Q48H [facility] Rx#:[id number] Output: Urine 60 1250 275 Other: Voiding Method Indwelling Catheter Indwelling Catheter - Exam GENERAL: The patient is lying down and the patient is quite rested this point in time, and she seems to be sedated.. She is in restraint and has sister who is trying to hold her down. The patient is currently in 4. restraints. She continues to thrashing gets agitated. She is unable to communicate. She withdraws to painful stimulation of all 4 extremities. She is moving all 4 extremities without any limitation. Head exam was generally normal. There was no scleral icterus or corneal arcus. Mucous membranes were moist. HENT: Supple neck. No nuchal rigidity. CHEST: Could not assess because of patient condition. Lungs were clear to auscultation and percussion, and with normal diaphragmatic excursion. No wheezes or rales were noted. Cardiac exam revealed the PMI to be normally situated and sized. The rhythm was regular and no extrasystoles were noted during several minutes of auscultation. The first and second heart sounds were normal and physiologic splitting of the second heart sound was noted. There were no murmurs, rubs, clicks, or gallops. Abdominal exam revealed normal bowel sounds. The abdomen was soft, non-tender, and without masses, organomegaly, or appreciable enlargement of the abdominal aorta. Examination of the extremities revealed easily palpable radial, femoral and pedal pulses. There was no cyanosis, clubbing or edema. Examination of the skin revealed no evidence of significant rashes, suspicious appearing nevi or other concerning lesions. - Labs CBC & Chem 7: 07/20/21 04:43 07/20/21 04:43 Labs: Abnormal Lab Results - Last 24 Hours (Table) 07/19/21 07/19/21 07/19/21 Range/Units 12:11 12:11 12:11 WBC (3.8-10.6) k/uL Hgb (11.4-16.0) gm/dL Hct (34.0-46.0) % RDW (11.5-15.5) % ESR (0-20) mm/hr Sodium (137-145) mmol/L Chloride (98-107) mmol/L Carbon Dioxide (22-30) mmol/L BUN (7-17) mg/dL Creatinine (0.52-1.04) mg/dL Glucose (74-99) mg/dL POC Glucose (mg/dL) (75-99) mg/dL Magnesium (1.6-2.3) mg/dL Lactate Dehydrogenase (313-618) U/L Creatine Kinase (30-135) U/L C-Reactive Protein (<1.0) mg/dL Vitamin B12 186.0 L (200.0-944.0) pg/mL Urine Appearance Cloudy H (Clear) Urine Protein 1+ H (Negative) Urine Ketones 2+ H (Negative) Urine Blood Moderate H (Negative) Urine WBC 20 H (0-5) /hpf Urine Mucus Rare H (None) /hpf Urine Opiates Screen Detected H (NotDetected) Ur Amphetamines Screen Detected H (NotDetected) U Methamphetamines Scrn Detected H (NotDetected) U Benzodiazepines Scrn Detected H (NotDetected) U Marijuana (THC) Screen Detected H (NotDetected) 07/19/21 07/20/21 07/20/21 Range/Units 18:57 04:43 04:43 WBC 11.0 H (3.8-10.6) k/uL Hgb 10.6 L (11.4-16.0) gm/dL Hct 33.6 L (34.0-46.0) % RDW 16.8 H (11.5-15.5) % ESR 39 H (0-20) mm/hr Sodium 146 H (137-145) mmol/L Chloride 117 H (98-107) mmol/L Carbon Dioxide 8 L* (22-30) mmol/L BUN 34 H (7-17) mg/dL Creatinine 1.19 H (0.52-1.04) mg/dL Glucose 137 H (74-99) mg/dL POC Glucose (mg/dL) 130 H (75-99) mg/dL Magnesium 2.4 H (1.6-2.3) mg/dL Lactate Dehydrogenase (313-618) U/L Creatine Kinase (30-135) U/L C-Reactive Protein 8.9 H (<1.0) mg/dL Vitamin B12 (200.0-944.0) pg/mL Urine Appearance (Clear) Urine Protein (Negative) Urine Ketones (Negative) Urine Blood (Negative) Urine WBC (0-5) /hpf Urine Mucus (None) /hpf Urine Opiates Screen (NotDetected) Ur Amphetamines Screen (NotDetected) U Methamphetamines Scrn (NotDetected) U Benzodiazepines Scrn (NotDetected) U Marijuana (THC) Screen (NotDetected) 07/20/21 07/20/21 07/20/21 Range/Units 04:43 05:50 06:02 WBC (3.8-10.6) k/uL Hgb (11.4-16.0) gm/dL Hct (34.0-46.0) % RDW (11.5-15.5) % ESR (0-20) mm/hr Sodium (137-145) mmol/L Chloride (98-107) mmol/L Carbon Dioxide (22-30) mmol/L BUN (7-17) mg/dL Creatinine (0.52-1.04) mg/dL Glucose (74-99) mg/dL POC Glucose (mg/dL) 131 H (75-99) mg/dL Magnesium (1.6-2.3) mg/dL Lactate Dehydrogenase 1359 H (313-618) U/L Creatine Kinase 2515 H* (30-135) U/L C-Reactive Protein (<1.0) mg/dL Vitamin B12 (200.0-944.0) pg/mL Urine Appearance (Clear) Urine Protein (Negative) Urine Ketones (Negative) Urine Blood (Negative) Urine WBC (0-5) /hpf Urine Mucus (None) /hpf Urine Opiates Screen (NotDetected) Ur Amphetamines Screen (NotDetected) U Methamphetamines Scrn (NotDetected) U Benzodiazepines Scrn (NotDetected) U Marijuana (THC) Screen (NotDetected) Microbiology - Last 24 Hours (Table) 07/19/21 12:11 Urine Culture - Preliminary Urine,Catheterized Assessment and Plan Plan: 1 acute delirium/severe agitation, could be related to methamphetamine reaction/overdose. Urine drug screen was positive. CAT scan of the brain is negative. The patient is having acute delirium/psychosis with possible seizure activity although this is not certain as the patient did not demonstrate any automatic behavior or any other clinical features of seizures. Underlying encephalitis cannot be completely ruled out. The patient was done and acyclovir. No indication for any seizure activity. No indication for bacterial meningitis. The patient is under the effect of Precedex and Haldol at this point in time. She is quite sedated. She is hemodynamically stable. She is able to protect her airways. She is on room air oxygen. 2 polysubstance abuse and the dressing was positive for amphetamine, methamphetamine, marijuana and opiates 3 acute kidney injury secondary to above, improving and the creatinine is down to 1.1 4 obstructive sleep apnea, per history and the patient has not taken any form of CPAP therapy 5 hypertension 6 hyperlipidemia 7 diabetes mellitus 8 fibromyalgia 9 chronic pain with degenerative arthritis and disc disease 10 acute leukocytosis, improving 11 positive TANIYA without indication of underlying lupus 12 anion gap metabolic acidosis with a serum bicarb of 8. 13 Rhabdo secondary to above Plan Check lactic acid level Monitor CPK as the patient has a component of rhabdomyolysis Continue bicarb infusion for now Repeat electrolytes at around 1 PM today continue acyclovir We will try to obtain a consent by the family for lumbar puncture Keep the combination of Precedex and Haldol for sedation medication no signs of any respiratory suppression at this point in time EEG is noted and the patient has no seizure activity Blood sugar control as her with a sliding scale coverage. She has adequate blo od sugar control for now. No hypoglycemia Hemodynamically stable We'll continue to follow the patient be kept in ICU. Neurology follow-up as needed.
[2021-07-20] MEDS: DILTIAZEM 125 MG in SODIUM CHLORIDE 0.9% 100 ML IV SCH ×2 (11:06→21:40)
[2021-07-20 11:42] LABS: Glucose,Whole Blood 160 mg/dL (75-99)
[2021-07-20] MEDS ORDERED: CYANOCOBALAMIN 1,000 MCG/ML 1 ML VIAL IM ONE (12:35)
--- NOTE | 2021-07-20 12:38 | P.PN ---
Subjective Progress Note Date: 07/20/21 The patient is seen at bedside and per patient nurse she has no seizure-like activity. She had received yesterday a total of 10mg of Haldol and is on IV Precedex. Is On Haldol 1mg IVP q1 hr PRN and 1mg IVP every 30minutes PRN Objective - Vital Signs Vital signs: Vital Signs Temp 98.0 F 07/20/21 08:00 Pulse 86 07/20/21 11:00 Resp 20 07/20/21 11:00 BP 108/49 07/20/21 11:00 Pulse Ox 95 07/20/21 11:00 Intake & Output 07/19/21 07/20/21 07/20/21 18:59 06:59 18:59 Intake Total 80.656 1702.884 800 Output Total 60 1250 415 Balance 20.656 452.884 385 Weight 79.379 kg 89.4 kg Intake: IV 75 1075 100 Sodium Chloride 0.9% 1, 75 1075 100 000 ml @ 130 mls/hr IV . Q7H42M [facility] Rx#:[id number] Intake, IV Titration 5.656 627.884 700 Amount Acyclovir Sodium 800 mg 100 In Sodium Chloride 0.9% 100 ml @ 100 mls/hr IV Q12H [facility] Rx#:[id number] Dexmedetomidine/0.9% NaCl 5.656 208.717 (Pmx) 400 mcg In Empty Bag 1 bag @ 0.2 MCG/KG/HR 3.969 mls/hr IV .Q24H [facility] Rx#:[id number] Dextrose 5% in Water 1, 600 000 ml @ 150 mls/hr IV . Q7H40M [facility] with Sodium Bicarb (1 Meq/ml) 150 ml Rx#:[id number] Diltiazem 125 mg In 94.167 Sodium Chloride 0.9% 100 ml @ 10 MG/HR 10 mls/hr IV .[id number] [facility] Rx#: [id number] Meropenem 1 gm In Sodium 100 100 Chloride 0.9% 100 ml @ 33 .3 mls/hr IVPB Q8HR [facility] Rx#:[id number] Vancomycin 1,500 mg In 125 Sodium Chloride 0.9% 250 ml @ 125 mls/hr IVPB Q48H [facility] Rx#:[id number] Output: Urine 60 1250 415 Other: Voiding Method Indwelling Catheter Indwelling Catheter - Exam GENERAL: The patient is lying in bed and does not seem in acute distress HENT: Supple neck. No nuchal rigidity. NEUROLOGICAL: Is Limited since on IV Precedex 0.6mg/kg/hr. Is On Haldol IVP Higher mental function: Comatose. Is not verbally responsive or following commands. Cranial nerves: I manually opened her eyes are primary gaze is midline. The pupils are round, equal 2mm and reactive to light bilaterally. No facial weakness. Rest could not be assessed because of her condition. Motor: Gait is deferred. The strength is limited but grimaces face to painful stimuli of uppers and attempts to withdrawl upper. Normal tone and bulk. Cerebellum: Could not assess. Sensation: Could not assess but grimaces face of uppers to painful stimuli. Reflexes: 1+ throughout. Plantars are upgoing bilaterally. WORK-UP: Routine EEG ON 07/20/2021: Is abnormal. The background slowing is suggestive of moderate to severe encephalopathy. There are no focal slowing, epileptiform discharges or seizure on the EEG. Vitamin B12 is 186 which is considered deficient Serum folate is 13.9 TSH is 3.550. AST of 33 and ALT of 23 Ammonia level is 28. - Labs CBC & Chem 7: 07/20/21 04:43 07/20/21 13:20 Labs: Abnormal Lab Results - Last 24 Hours (Table) 07/19/21 07/19/21 07/19/21 Range/Units 12:11 12:11 12:11 WBC (3.8-10.6) k/uL Hgb (11.4-16.0) gm/dL Hct (34.0-46.0) % RDW (11.5-15.5) % ESR (0-20) mm/hr Sodium (137-145) mmol/L Chloride (98-107) mmol/L Carbon Dioxide (22-30) mmol/L BUN (7-17) mg/dL Creatinine (0.52-1.04) mg/dL Glucose (74-99) mg/dL POC Glucose (mg/dL) (75-99) mg/dL Magnesium (1.6-2.3) mg/dL Lactate Dehydrogenase (313-618) U/L Creatine Kinase (30-135) U/L C-Reactive Protein (<1.0) mg/dL Vitamin B12 186.0 L (200.0-944.0) pg/mL Urine Appearance Cloudy H (Clear) Urine Protein 1+ H (Negative) Urine Ketones 2+ H (Negative) Urine Blood Moderate H (Negative) Urine WBC 20 H (0-5) /hpf Urine Mucus Rare H (None) /hpf Urine Opiates Screen Detected H (NotDetected) Ur Amphetamines Screen Detected H (NotDetected) U Methamphetamines Scrn Detected H (NotDetected) U Benzodiazepines Scrn Detected H (NotDetected) U Marijuana (THC) Screen Detected H (NotDetected) 07/19/21 07/20/21 07/20/21 Range/Units 18:57 04:43 04:43 WBC 11.0 H (3.8-10.6) k/uL Hgb 10.6 L (11.4-16.0) gm/dL Hct 33.6 L (34.0-46.0) % RDW 16.8 H (11.5-15.5) % ESR 39 H (0-20) mm/hr Sodium 146 H (137-145) mmol/L Chloride 117 H (98-107) mmol/L Carbon Dioxide 8 L* (22-30) mmol/L BUN 34 H (7-17) mg/dL Creatinine 1.19 H (0.52-1.04) mg/dL Glucose 137 H (74-99) mg/dL POC Glucose (mg/dL) 130 H (75-99) mg/dL Magnesium 2.4 H (1.6-2.3) mg/dL Lactate Dehydrogenase (313-618) U/L Creatine Kinase (30-135) U/L C-Reactive Protein 8.9 H (<1.0) mg/dL Vitamin B12 (200.0-944.0) pg/mL Urine Appearance (Clear) Urine Protein (Negative) Urine Ketones (Negative) Urine Blood (Negative) Urine WBC (0-5) /hpf Urine Mucus (None) /hpf Urine Opiates Screen (NotDetected) Ur Amphetamines Screen (NotDetected) U Methamphetamines Scrn (NotDetected) U Benzodiazepines Scrn (NotDetected) U Marijuana (THC) Screen (NotDetected) 07/20/21 07/20/21 07/20/21 Range/Units 04:43 05:50 06:02 WBC (3.8-10.6) k/uL Hgb (11.4-16.0) gm/dL Hct (34.0-46.0) % RDW (11.5-15.5) % ESR (0-20) mm/hr Sodium (137-145) mmol/L Chloride (98-107) mmol/L Carbon Dioxide (22-30) mmol/L BUN (7-17) mg/dL Creatinine (0.52-1.04) mg/dL Glucose (74-99) mg/dL POC Glucose (mg/dL) 131 H (75-99) mg/dL Magnesium (1.6-2.3) mg/dL Lactate Dehydrogenase 1359 H (313-618) U/L Creatine Kinase 2515 H* (30-135) U/L C-Reactive Protein (<1.0) mg/dL Vitamin B12 (200.0-944.0) pg/mL Urine Appearance (Clear) Urine Protein (Negative) Urine Ketones (Negative) Urine Blood (Negative) Urine WBC (0-5) /hpf Urine Mucus (None) /hpf Urine Opiates Screen (NotDetected) Ur Amphetamines Screen (NotDetected) U Methamphetamines Scrn (NotDetected) U Benzodiazepines Scrn (NotDetected) U Marijuana (THC) Screen (NotDetected) 07/20/21 Range/Units 11:41 WBC (3.8-10.6) k/uL Hgb (11.4-16.0) gm/dL Hct (34.0-46.0) % RDW (11.5-15.5) % ESR (0-20) mm/hr Sodium (137-145) mmol/L Chloride (98-107) mmol/L Carbon Dioxide (22-30) mmol/L BUN (7-17) mg/dL Creatinine (0.52-1.04) mg/dL Glucose (74-99) mg/dL POC Glucose (mg/dL) 160 H (75-99) mg/dL Magnesium (1.6-2.3) mg/dL Lactate Dehydrogenase (313-618) U/L Creatine Kinase (30-135) U/L C-Reactive Protein (<1.0) mg/dL Vitamin B12 (200.0-944.0) pg/mL Urine Appearance (Clear) Urine Protein (Negative) Urine Ketones (Negative) Urine Blood (Negative) Urine WBC (0-5) /hpf Urine Mucus (None) /hpf Urine Opiates Screen (NotDetected) Ur Amphetamines Screen (NotDetected) U Methamphetamines Scrn (NotDetected) U Benzodiazepines Scrn (NotDetected) U Marijuana (THC) Screen (NotDetected) Microbiology - Last 24 Hours (Table) 07/19/21 12:11 Urine Culture - Preliminary Urine,Catheterized Assessment and Plan Assessment: * Altered mental status with severe agitation Possibly due to toxic encephalopathy (polysubstance use. Per ED, the son notified them that this happens whenever patient uses meth). Cannot absolutely rule out encephalitis (has elevated wbc but no fevers on initial presentation. Later she had fevers). * Vitamin B12 is 186 which is considered deficient * Leukocytosis--trending down * Polydrug use (UDS is positive for opiates, amphetamine, methamphetamine, benzo, marijuana). * Acute kidney insufficiency--trending down * History of meningitis and was in a coma last report for 1 week and that was possibly in 2013 * Diabetes mellitus and currently her blood sugar is slight elevated * Hypertension * Hyperlipidemia * History of fibromyalgia Plan: * The patient is on acyclovir 800mg q12hr and is on aztreonam and will defer medication management to the I.D. team. I.D. team will would like to pursue to Lumbar puncture and I am in agreement to rule out any TRANSPLANT NURSE infection. * MRI of the brain is pending * I started the patient on vitamin B12 1000mcg daily IM and once is more awake will change to PO (is Vitamin B12 deficient). * Continue thiamine 100 mg daily IV for now. * Patient is on IV hold all and Precedex and we'll defer modification of the management to the ICU team. * We'll defer the rest of the medical management to the primary as well as ICU team Condition: Is very guarded. The plan is discussed with the ICU nurse and primary team. Buck Washington M.D. Neuro-hospitalist Time with Patient: Less than 30
--- NOTE | 2021-07-20 13:37 | P.PN ---
Subjective This is a pleasant 70 years old female with past medical history of Asthma, Diabetes Mellitus, Fibromyalgia, Hyperlipidemia, Hypertension, Musculoskeletal Disorder, Osteoarthritis,Sleep Apnea not using CPAP/BIPAP, tested positive for lupus with no symptoms, chronic back pain from her degenerative disc disease. Presents on 07/19 for altered mental status when neighbors called on patient because she will she was in her apartment screaming and found confused and covered with diarrhea. Patient also admitted to the ICU since admission for close monitoring and she is currently on Precedex as well as received several doses of IV Haldol last night of a total of 10 mg and today morning she is obtunded and not follow commands or answer questions. She did not withdraw to pain stimuli. Her pupils are equal and reactive. Also there was a report of diarrhea upon admission, CT of the abdomen and pelvis and CT of the head were unremarkable upon admission. EEG showing no epileptiform discharge. And the low vitamin B12 186 is been replaced currently. UDS is positive for opiates, amphetamine, methamphetamine, benzo, marijuana Also patient had fever upon admission of 101 on 07/19 CBC showing trending down WBC 20.7 down to 11.0. ESR is elevated at 39. Creatinine coming down to 1.6 down to 1.19. Sodium 146, the MP and liver enzymes are unremarkable. Creatinine kinase elevated 546 up to 2515 today. Coronavirus not detected. Review of systems: N/a Active Medications Generic Name Dose Route Start Last Admin Trade Name Freq PRN Reason Stop Dose Admin Haloperidol Lactate 1 mg 07/19/21 17:56 07/20/21 04:42 Haloperidol Lactate 5 Mg/Ml 1 Ml Vial IVP 1 mg Q1HR PRN Administration Agitation or Acute Psychosis Haloperidol Lactate 1 mg 07/19/21 19:50 07/20/21 00:16 Haloperidol Lactate 5 Mg/Ml 1 Ml Vial IVP 1 mg Q30M PRN Administration Agitation or Acute Psychosis Heparin Sodium (Porcine) 5,000 unit 07/20/21 09:00 07/20/21 08:06 Heparin Sodium,Porcine/Pf 5,000 Unit/0.5 Ml Syringe SQ 5,000 unit Q12HR DIMA Administration Dexmedetomidine HCl 400 mcg/ 100 mls @ 3.969 mls/hr 07/19/21 17:15 07/20/21 06:30 IV Solution IV 0.7 mcg/kg/hr .Q24H DIMA 13.891 mls/hr Titration Protocol 0.2 MCG/KG/HR Acyclovir Sodium 800 mg/ 116 mls @ 100 mls/hr 07/20/21 00:00 07/20/21 11:25 Sodium Chloride IV 100 mls/hr Q12H DIMA Administration Diltiazem HCl 125 mg/ Sodium 125 mls @ 10 mls/hr 07/19/21 20:30 07/20/21 11:06 Chloride IV Not Given .[id number] [facility]IM[facility] 10 MG/HR Meropenem 1 gm/ Sodium 100 mls @ 33.3 mls/hr 07/20/21 00:00 07/20/21 08:06 Chloride IVPB 33.3 mls/hr Q8HR DIMA Administration Protocol Sodium Bicarbonate 150 ml/ 1,150 mls @ 150 mls/hr 07/20/21 07:00 07/20/21 07:15 Dextrose/Water IV 150 mls/hr .Q7H40M DIMA Administration Vancomycin HCl 1,500 mg/ 250 mls @ 125 mls/hr 07/20/21 21:00 Sodium Chloride IVPB Q24H [facility] Naloxone HCl 0.2 mg 07/19/21 11:45 Naloxone 0.4 Mg/Ml 1 Ml Vial IV Q2M PRN Opioid Reversal Pantoprazole Sodium 40 mg 07/20/21 09:00 07/20/21 08:06 Pantoprazole 40 Mg/10 Ml Vial IVP 40 mg DAILY DIMA Administration Thiamine HCl 100 mg 07/19/21 15:15 07/20/21 08:06 Thiamine 100 Mg/Ml 2 Ml Vial IVP 100 mg DAILY DIMA Administration Objective - Vital Signs Vital signs: Vital Signs Temp 97.6 F 07/20/21 12:00 Pulse 91 07/20/21 12:30 Resp 19 07/20/21 12:30 BP 108/59 07/20/21 12:30 Pulse Ox 95 07/20/21 12:30 Intake & Output 07/19/21 07/20/21 07/20/21 18:59 06:59 18:59 Intake Total 80.656 1702.884 800 Output Total 60 1250 415 Balance 20.656 452.884 385 Weight 79.379 kg 89.4 kg Intake: IV 75 1075 100 Sodium Chloride 0.9% 1, 75 1075 100 000 ml @ 130 mls/hr IV . Q7H42M [facility] Rx#:[id number] Intake, IV Titration 5.656 627.884 700 Amount Acyclovir Sodium 800 mg 100 In Sodium Chloride 0.9% 100 ml @ 100 mls/hr IV Q12H [facility] Rx#:[id number] Dexmedetomidine/0.9% NaCl 5.656 208.717 (Pmx) 400 mcg In Empty Bag 1 bag @ 0.2 MCG/KG/HR 3.969 mls/hr IV .Q24H [facility] Rx#:[id number] Dextrose 5% in Water 1, 600 000 ml @ 150 mls/hr IV . Q7H40M [facility] with Sodium Bicarb (1 Meq/ml) 150 ml Rx#:[id number] Diltiazem 125 mg In 94.167 Sodium Chloride 0.9% 100 ml @ 10 MG/HR 10 mls/hr IV .[id number] [facility] Rx#: [id number] Meropenem 1 gm In Sodium 100 100 Chloride 0.9% 100 ml @ 33 .3 mls/hr IVPB Q8HR [facility] Rx#:[id number] Vancomycin 1,500 mg In 125 Sodium Chloride 0.9% 250 ml @ 125 mls/hr IVPB Q48H [facility] Rx#:[id number] Output: Urine 60 1250 415 Other: Voiding Method Indwelling Catheter Indwelling Catheter - Exam -GENERAL: The patient is obtunded HEENT: Pupils are round and equally reacting to light. EOMI. No scleral icterus. No conjunctival pallor. Normocephalic, atraumatic. No pharyngeal erythema. No thyromegaly. CARDIOVASCULAR: S1 and S2 present. No murmurs, rubs, or gallops. PULMONARY: Chest is clear to auscultation, no wheezing or crackles. ABDOMEN: Soft, nontender, nondistended, normoactive bowel sounds. No palpable organomegaly. MUSCULOSKELETAL: No joint swelling or deformity. EXTREMITIES: No cyanosis, clubbing, or pedal edema. NEUROLOGICAL: Gross neurological examination did not reveal any focal deficits. SKIN: No rashes. no petechiae. - Labs CBC & Chem 7: 07/20/21 04:43 07/20/21 04:43 Labs: Abnormal Lab Results - Last 24 Hours (Table) 07/19/21 07/19/21 07/20/21 Range/Units 12:11 18:57 04:43 WBC 11.0 H (3.8-10.6) k/uL Hgb 10.6 L (11.4-16.0) gm/dL Hct 33.6 L (34.0-46.0) % RDW 16.8 H (11.5-15.5) % ESR 39 H (0-20) mm/hr Sodium (137-145) mmol/L Chloride (98-107) mmol/L Carbon Dioxide (22-30) mmol/L BUN (7-17) mg/dL Creatinine (0.52-1.04) mg/dL Glucose (74-99) mg/dL POC Glucose (mg/dL) 130 H (75-99) mg/dL Magnesium (1.6-2.3) mg/dL Lactate Dehydrogenase (313-618) U/L Creatine Kinase (30-135) U/L C-Reactive Protein (<1.0) mg/dL Vitamin B12 186.0 L (200.0-944.0) pg/mL 07/20/21 07/20/21 07/20/21 Range/Units 04:43 04:43 05:50 WBC (3.8-10.6) k/uL Hgb (11.4-16.0) gm/dL Hct (34.0-46.0) % RDW (11.5-15.5) % ESR (0-20) mm/hr Sodium 146 H (137-145) mmol/L Chloride 117 H (98-107) mmol/L Carbon Dioxide 8 L* (22-30) mmol/L BUN 34 H (7-17) mg/dL Creatinine 1.19 H (0.52-1.04) mg/dL Glucose 137 H (74-99) mg/dL POC Glucose (mg/dL) (75-99) mg/dL Magnesium 2.4 H (1.6-2.3) mg/dL Lactate Dehydrogenase 1359 H (313-618) U/L Creatine Kinase 2515 H* (30-135) U/L C-Reactive Protein 8.9 H (<1.0) mg/dL Vitamin B12 (200.0-944.0) pg/mL 07/20/21 07/20/21 Range/Units 06:02 11:41 WBC (3.8-10.6) k/uL Hgb (11.4-16.0) gm/dL Hct (34.0-46.0) % RDW (11.5-15.5) % ESR (0-20) mm/hr Sodium (137-145) mmol/L Chloride (98-107) mmol/L Carbon Dioxide (22-30) mmol/L BUN (7-17) mg/dL Creatinine (0.52-1.04) mg/dL Glucose (74-99) mg/dL POC Glucose (mg/dL) 131 H 160 H (75-99) mg/dL Magnesium (1.6-2.3) mg/dL Lactate Dehydrogenase (313-618) U/L Creatine Kinase (30-135) U/L C-Reactive Protein (<1.0) mg/dL Vitamin B12 (200.0-944.0) pg/mL Microbiology - Last 24 Hours (Table) 07/19/21 12:11 Urine Culture - Preliminary Urine,Catheterized Assessment and Plan Assessment: Altered mental status, most likely secondary to toxic encephalopathy. Rule out meningoencephalitis Vitamin B12 deficiency Polysubstance abuse Hypertension Diabetes mellitus Hyperlipidemia History of fibromyalgia History of osteoarthritis and chronic back pain History of sleep apnea on CPAP/BiPAP Plan: This is a pleasant 70 years old female who presents with altered mental status. Possible infection Continue with broad-spectrum antibiotics per ID team. Currently she is on acycl ovir, meropenem and IV vancomycin Lumbar puncture recommended by infectious disease and neurology services were on the case Continue with ICU management With critical care team on the consult Labs and medication were reviewed.. Continue same treatment. Continue with symptomatic treatment. Resume home medication. Monitor lytes and vitals. DVT and GI prophylaxis. Further recommendationsas per clinical course of the patient DVT prophylaxis: Subcutaneous heparin GI Prophylaxis: Ppi Prognosis is guarded
[2021-07-20 14:33] LABS: African American GFR (CKD) >90 (>60 ml/min/1.73 sqM); Anion Gap 14 mmol/L; Blood Urea Nitrogen 35 mg/dL (7-17); Calcium 8.8 mg/dL (8.4-10.2); Carbon Dioxide 17 mmol/L (22-30); Chloride 117 mmol/L (98-107); Glucose 127 mg/dL (74-99); Non-African American GFR(CKD) 88 (>60 ml/min/1.73 sqM); Potassium 3.6 mmol/L (3.5-5.1); Sodium 148 mmol/L (137-145)
[2021-07-20] MEDS ORDERED: Potassium Replacement Protocol 1 EACH MISC MISCELLANE PRN (16:10)
[2021-07-20] MEDS: POTASSIUM CHLORIDE 10 MEQ in WATER FOR INJECTION 1 100ML.BAG IVPB SCH ×2 (17:04→18:21)
[2021-07-20 17:25] LABS: Glucose,Whole Blood 163 mg/dL (75-99)
--- NOTE | 2021-07-20 18:19 | PN ---
PROGRESS NOTE DATE OF SERVICE: 07/20/2021 REASON FOR FOLLOWUP: Fever, concern for encephalitis. INTERVAL HISTORY: Patient overall feels better and has this morning. The patient is less agitated today. However remains to be unresponsive. Unable to provide any history. No vomiting has been reported or any worsening diarrhea. PHYSICAL EXAMINATION: Blood pressure 112/59 with a pulse of 93. Temperature 97.6. She is 96% on room air. General description is an elderly female lying in bed in no distress. Respiratory system: Unlabored breathing, decreased breath sounds at the base. No wheeze. Heart S1, S2. Regular rate and rhythm. Abdomen soft, no tenderness. LABS: BUN of 35, creatinine 0.70. White count down to 11.0. Urine is negative. DIAGNOSTIC IMPRESSION AND PLAN: Patient with fever, elevated white count, concern for possible encephalitis. Discussed with grave digger. The patient clinically benefit from the LP and C6 examination that will help adjusting antibiotic. For now, continue with meropenem, vancomycin and Acyclovir because of her allergies and monitor clinical course closely. MMODL / IJN: [id number] /
--- NOTE | 2021-07-20 19:58 | P.PCN ---
Date of Procedure: 07/20/21 Procedure(s) Performed: Preoperative diagnosis: Altered mental status Post operative diagnoses: Altered mental status Procedure= lumbar puncture Anesthesia local infiltration with lidocaine 1% 2 mL. Condition: stable Complication: none. Description of the procedure procedure risk and benefits discussed with the family, consent signed. Patient and the ICU area placed in lateral position ( Left side down ), back prepped with chlorhexidine 3 times been local infiltration of the skin and subcutaneous tissue with lidocaine 1% 2 mL for skin and subcu interstitial frustrations at L4 5 levels then 22-gauge Quincke-type needle advanced slowly at L4- 5 interlaminar space there was positive cerebrospinal fluid ( one attempte ,atrumatic ) which was Tinged with heme, no paresthesia ,total of 8 ML of cerebrospinal fluid collected in 4 different tubes 2mL in each, then the needle removed and a Band-Aid applied and patient tolerated the procedure well without any complications. Note = because the cerebrospinal fluid was tinged with blood , i.e. recommend to the ICU team to hold any anticoagulation, if it was appropriate. ICU nurse will notify the ICU attending
[2021-07-20 19:59] LABS: Glucose,CSF 165 mg/dL (40-70)
[2021-07-20 20:11] LABS: Appearance,CSF Bloody
[2021-07-20 20:12] LABS: CSF Tube Number 4; CSF Tube Volume 1.75; Nucleated Cells, CSF 56 u/L (0-5); Red Blood Cell,CSF 99500 u/L (0-10)
[2021-07-20 20:18] LABS: Red Blood Cell, CSF Fresh 100 %
[2021-07-20 20:21] LABS: Diff, Total Cells Cnt, CSF 100; Eosinophils,CSF 1 %; Mononuclear WBC,CSF 22 %; Polynuclear WBC,CSF 77 %
[2021-07-20] MEDS: ACYCLOVIR SODIUM 800 MG in SODIUM CHLORIDE 0.9% 250 ML IV SCH (21:44)
[2021-07-20 22:13] LABS: Glucose,Whole Blood 170 mg/dL (75-99)
[2021-07-21] MEDS: MEROPENEM 1 GM in SODIUM CHLORIDE 0.9% 100 ML IVPB SCH ×4 (00:17→23:29)
[2021-07-21] MEDS: HALOPERIDOL LACTATE 5 MG/ML 1 ML VIAL IVP PRN ×3 (00:44→02:17)
[2021-07-21] MEDS ORDERED: ACETAMINOPHEN TAB 325 MG TAB PO PRN (01:04)
[2021-07-21] MEDS: ACYCLOVIR SODIUM 800 MG in SODIUM CHLORIDE 0.9% 250 ML IV SCH ×3 (03:53→20:23)
[2021-07-21 04:00] LABS: Anisocytosis Slight; Basophils % (A) 0 %; Eosinophils % (A) 0 %; HCT 32.7 % (34.0-46.0); HGB 10.4 gm/dL (11.4-16.0); Lymphocytes # (A) 1.1 k/uL (1.0-4.8); Lymphocytes % (A) 14 %; MCH 26.5 pg (25.0-35.0); MCHC 31.9 g/dL (31.0-37.0); MCV 83.1 fL (80.0-100.0); Mean Platelet Volume 8.2; Monocytes # (A) 0.4 k/uL (0-1.0); Monocytes % (A) 5 %; Neutrophils # (A) 6.3 k/uL (1.3-7.7); Neutrophils % (A) 80 %; Platelet Count 286 k/uL (150-450); RBC 3.93 m/uL (3.80-5.40); WBC 7.8 k/uL (3.8-10.6)
[2021-07-21 04:13] LABS: African American GFR (CKD) >90 (>60 ml/min/1.73 sqM); Albumin 3.1 g/dL (3.5-5.0); Anion Gap 3 mmol/L; Bilirubin, Delta 0.2 mg/dL (0.0-0.2); Bilirubin,Unconjugated 0.2 mg/dL (0.0-1.1); Blood Urea Nitrogen 24 mg/dL (7-17); Carbon Dioxide 34 mmol/L (22-30); Chloride 110 mmol/L (98-107); Glucose 169 mg/dL (74-99); Magnesium 1.8 mg/dL (1.6-2.3); Non-African American GFR(CKD) >90 (>60 ml/min/1.73 sqM); Potassium 3.1 mmol/L (3.5-5.1); Sodium 147 mmol/L (137-145); Total Bilirubin 0.4 mg/dL (0.2-1.3); Total Protein 5.5 g/dL (6.3-8.2)
[2021-07-21 04:19] LABS: Creatine Kinase 2175 U/L (30-135)
[2021-07-21] MEDS: POTASSIUM CHLORIDE 10 MEQ in WATER FOR INJECTION 1 100ML.BAG IVPB SCH ×4 (04:49→09:58)
[2021-07-21] MEDS: DEXTROSE 5% IN WATER 1,000 ML with SODIUM BICARB (1 MEQ/ML) 150 ML IV SCH (04:53)
[2021-07-21 06:00] LABS: Glucose,Whole Blood 171 mg/dL (75-99)
[2021-07-21] MEDS: INSULIN ASPART (NovoLOG) 100 UNIT/ML VIAL SQ SCH ×4 (06:00→20:24)
--- NOTE | 2021-07-21 08:17 | CT ---
EXAMINATION TYPE: CT brain wo con DATE OF EXAM: 07/21/2021 COMPARISON: 07/19/2021 CT brain, CT internal auditory canals INDICATION: possible bleed, bloody spinal fluid DLP: 1121.4 mGycm, Automated exposure control for dose reduction was used. CONTRAST: None CT of the brain is performed utilizing 3 mm thick sections through the posterior fossa and 3 mm thick sections through the remaining calvarium. Study is performed within 24 hours of arrival to the hosp [facility]. No obvious intraparenchymal hemorrhages are evident. There is however some mild thickening of increas ed density along the left tentorium compared to the right. Very subtle small subdural hematoma could be considered. It is unclear whether this is a change or better visualization because of improved tyesha hnique from the comparison study. No mass effect on the adjacent cerebellum is evident. No mass lesion is evident. No acute infarcts are evident. Ventricles and sulci are appropriate for the patient age. There is some mild prominence of the extra -axial space. Paranasal sinuses and mastoid air cells within the [id number] are clear. IMPRESSIONS: 1. Subtle small subdural hematoma along the left tentorium may be present. This could be confirmed with MRI without contrast. 2. No additional areas suspicious for acute intracranial hemorrhage. Report was called to the ICU nurse Sulema, by Dr. Desouza by telephone at the time of interpretation 0 812 hours 07/21/2021
[2021-07-21] MEDS: DEXTROSE 5% IN WATER 1,000 ML IV SCH (09:58)
[2021-07-21] MEDS: PANTOPRAZOLE 40 MG/10 ML VIAL IVP SCH (09:58)
[2021-07-21] MEDS: THIAMINE 100 MG/ML 2 ML VIAL IVP SCH (09:58)
--- NOTE | 2021-07-21 10:31 | P.PN ---
Subjective Progress Note Date: 07/21/21 Principal diagnosis: Acute confusion, metabolic encephalopathy, rule out encephalitis 70-year-old female patient, who is coming into the emergency department because of altered mentation. The patient was quite agitated. The patient was found to be restless and screaming at home and quite agitated. Her neighbors called EMS and the patient was brought into the hospital. EMS found the patient in apartment covered with diarrhea and this was involving the entire body including the face. Her blood sugar was normal on the scene. No neck stiffness. Hemodynamically stable. She has multiple comorbidities. She is morbidly obese and she suffers from chronic pain and she has back pain due to degenerative arthritis and bulging this in addition to fibromyalgia and she has a positive TANIYA and has not had the typical lupus symptoms. Other comorbid conditions include obstructive sleep apnea, nontolerant to CPAP therapy, hypertension and hyperlipidemia diabetes mellitus and substance abuse. According to the family, this type of reaction happens to her when she takes methamphetamine, and she has had similar reactions in the past. Her last normal state was around 2 days ago and at that time the patient was walking and talking and there are verbalizing appropriately. The patient came into the emergency and pulmonary workup showed a urine drug screen that was positive for amphetamine, methamphetamine, marijuana, and opiates. Alcohol was nondetected and was less than 10. Her CAT scan of the brain showed mild to moderate diffuse cerebral atrophy without any acute abnormalities. White cell count was 20.7. She was in acute kidney injury with a creatinine of 1.66 with a BMI of 27 and a sodium level of 144. LFTs were within normal limits. CPK was mildly elevated at 549. Coreg 19 testing was negative. UA was negative. CAT scan of the abdomen and pelvis was negative. Chest x-ray was negative. The patient is currently on room air oxygen. She with rash and she was moving all 4 extremities and she will try to jump out of bed. Upon repeated stimulation, I was able to do some limited communication with her. She was able to tell me her name and nothing more than that. She gets quite agitated and she is currently in 4. restraints. In the emergency, she was given a total of 6 mg of Ativan without much of an improvement. No neck stiffness. No head trauma.. She is hemodynamically stable. 28 2020, the patient is being seen for a follow-up. As mentioned earlier, the patient was suspected to have a methamphetamine overdose or toxicity. Her pre sentation was typical as the patient was having acute delirium/psychosis-type of picture. The patient came in to the ICU. She remains quite agitated despite being on Precedex0 is still having episodes of 0.5 mcg/kg/h. The patient was also given Haldol and I think the estimated dose of Haldol was in the order of 10 mg overnight. This morning, the patient is quite sedated. No agitation. No seizure activity. EEG was done and showed no epileptic focus in this patient. Neck is not stiff. She is afebrile. Meanwhile, she has developed a mild degree of rhabdomyolysis. CPK level is up to 2500 and the patient has a anion gap metabolic acidosis. Serum bicarbonate dropped down to 8 and the patient's anion gap is currently at 21. Renal function is improved in the creatinine is at 1.1. LDH level was 1359 with a CRP level of 0.8.9. The patient is hemodynamically stable. She was given a total of 100 mEq of sodium bicarb IV push and currently she is on a bicarb drip which is running at the rate of 150 mL an hour. She is withdrawing to painful stimulation all 4 extremities. Otherwise she is in under the effect of Haldol and she is quite sedated at this point in time. No yelling. No agitation. No thrashing activity. Urine output is in order of 100 mL an hour. She is currently on room air oxygen. On 07/21/2021 patient seen in follow-up in intensive care unit, she is more a wake today, and less confused, she was able to tell me her full name, and she knew she was at [facility], she could not tell the month or the year, but she knew the president. She denied using methamphetamine, she denies any illicit drugs with the exception of marijuana, which she uses on a regular basis. She stated that she resides alone, her son does do methamphetamine, however he does not live with her and she is not sure how she could have had positive methamphetamine in her drug screen. Nevertheless clinically she seems to be much improved, no agitation, she is quite pleasant on today's exam, very cooperative. She is breathing comfortably, she denies any chest pain, denies any discomfort. Vital signs are stable, room air pulse ox is 90-91%, she is afebrile, hemodynamically she is stable. She did have a lumbar puncture yesterday, and CSF fluid showed large amount of red blood cells, and 56 of nucleated cells, glucose was 165, and a LP fluid was bloody. CSF culture has shown no organisms thus far. Urine culture has shown no organisms. She remains on acyclovir, meropenem and vancomycin, ID service is following. Brain CT was a did showing subtle small subdural hematoma along the left tentorium, and MRI without contrast was recommended for confirmation, there was no additional areas suspicious for acute intracranial hemorrhage. Hemodynamically patient is stable, sinus mechanism with some PACs, with a rate of 87 BPM, blood pressure is stable. Patient is receiving D5W with 3 A of bicarbonate. Also remains on Precedex at 0.5 mics per kilo per minute, has received when necessary doses of Haldol for episodes of agitation. No nausea vomiting or diarrhea, Paulino catheter is in place, and patient is making 30-50 ML of urine per hour, she has remained nothing by mouth, however she is feeling thirsty and she is asking for water. Today's labs have been reviewed, her white blood cell count is 7.8, hemoglobin is 10.4, platelet count is 286, sodium is 147, potassium is 3.1, chloride is 110, CO2 34, BUN is 24, creatinine 0.65, ammonia level was less than 9, CK was 2175 Objective - Vital Signs Vital signs: Vital Signs Temp 98 F 07/21/21 04:00 Pulse 87 07/21/21 07:00 Resp 24 07/21/21 07:00 BP 146/76 07/21/21 07:00 Pulse Ox 90 L 07/21/21 07:00 Intake & Output 07/20/21 07/21/21 07/21/21 18:59 06:59 18:59 Intake Total 2310.334 2996.546 250 Output Total 845 625 75 Balance 0704.805 5245.546 175 Weight 89 kg Intake: IV 100 Sodium Chloride 0.9% 1, 100 000 ml @ 130 mls/hr IV . Q7H42M [facility] Rx#:[id number] Intake, IV Titration 2210.334 2996.546 250 Amount Acyclovir Sodium 800 mg 250 500 In Sodium Chloride 0.9% 250 ml @ 100 mls/hr IV Q8H [facility] Rx#:[id number] Dexmedetomidine/0.9% NaCl 10.334 146.546 (Pmx) 400 mcg In Empty Bag 1 bag @ 0.2 MCG/KG/HR 3.969 mls/hr IV .Q24H [facility] Rx#:[id number] Dextrose 5% in Water 1, 1650 1800 150 000 ml @ 150 mls/hr IV . Q7H40M [facility] with Sodium Bicarb (1 Meq/ml) 150 ml Rx#:[id number] Meropenem 1 gm In Sodium 200 100 Chloride 0.9% 100 ml @ 33 .3 mls/hr IVPB Q8HR [facility] Rx#:[id number] Potassium Chloride 10 meq 100 In Water For Injection 1 100ml.bag @ 100 mls/hr IVPB Q1H [facility] Rx#: [id number] Potassium Chloride 10 meq 200 100 In Water For Injection 1 100ml.bag @ 100 mls/hr IVPB Q1HR [facility] Rx#: [id number] Vancomycin 1,500 mg In 250 Sodium Chloride 0.9% 250 ml @ 125 mls/hr IVPB Q24H [facility] Rx#:[id number] Output: Urine 845 625 75 Other: Voiding Method Indwelling Catheter Indwelling Catheter - Exam GENERAL EXAM: Alert, very pleasant, 70-year-old obese white female, resting in bed, on room air with a pulse ox of 90-91% comfortable in no apparent distress. HEAD: Normocephalic/atraumatic. EYES: Normal reaction of pupils, equal size. Conjunctiva pink, sclera white. NOSE: Clear with pink turbinates. THROAT: No erythema or exudates. NECK: No masses, no JVD, no thyroid enlargement, no adenopathy. CHEST: No chest wall deformity. Symmetrical expansion. LUNGS: Equal air entry with no crackles, wheeze, rhonchi or dullness. CVS: Regular rate and rhythm, normal S1 and S2, no gallops, no murmurs, no rubs ABDOMEN: Soft, nontender. No hepatosplenomegaly, normal bowel sounds, no guarding or rigidity. EXTREMITIES: No clubbing, no edema, no cyanosis, 2+ pulses and upper and lower extremities. MUSCULOSKELETAL: Muscle strength and tone normal. SPINE: No scoliosis or deformity SKIN: No rashes CENTRAL NERVOUS SYSTEM: Alert and oriented -3. No focal deficits, tone is normal in all 4 extremities. PSYCHIATRIC: Alert and oriented -3. Appropriate affect. Intact judgment and i nsight. - Labs CBC & Chem 7: 07/21/21 03:42 07/21/21 03:42 Labs: Abnormal Lab Results - Last 24 Hours (Table) 07/20/21 07/20/21 07/20/21 Range/Units 11:41 13:20 17:23 Hgb (11.4-16.0) gm/dL Hct (34.0-46.0) % RDW (11.5-15.5) % Sodium 148 H (137-145) mmol/L Potassium (3.5-5.1) mmol/L Chloride 117 H (98-107) mmol/L Carbon Dioxide 17 L (22-30) mmol/L BUN 35 H (7-17) mg/dL Glucose 127 H (74-99) mg/dL POC Glucose (mg/dL) 160 H 163 H (75-99) mg/dL Calcium (8.4-10.2) mg/dL AST (14-36) U/L ALT (4-34) U/L Creatine Kinase (30-135) U/L Total Protein (6.3-8.2) g/dL Albumin (3.5-5.0) g/dL CSF RBC (0-10) u/L CSF Tot Nucleated Cells (0-5) u/L CSF Glucose (40-70) mg/dL 07/20/21 07/20/21 07/21/21 Range/Units 19:10 22:10 03:42 Hgb (11.4-16.0) gm/dL Hct (34.0-46.0) % RDW (11.5-15.5) % Sodium (137-145) mmol/L Potassium (3.5-5.1) mmol/L Chloride (98-107) mmol/L Carbon Dioxide (22-30) mmol/L BUN (7-17) mg/dL Glucose (74-99) mg/dL POC Glucose (mg/dL) 170 H (75-99) mg/dL Calcium (8.4-10.2) mg/dL AST 85 H (14-36) U/L ALT 35 H (4-34) U/L Creatine Kinase (30-135) U/L Total Protein 5.5 L (6.3-8.2) g/dL Albumin 3.1 L (3.5-5.0) g/dL CSF RBC 67147 H (0-10) u/L CSF Tot Nucleated Cells 56 H* (0-5) u/L CSF Glucose 165 H (40-70) mg/dL 07/21/21 07/21/21 07/21/21 Range/Units 03:42 03:42 05:58 Hgb 10.4 L (11.4-16.0) gm/dL Hct 32.7 L (34.0-46.0) % RDW 17.0 H (11.5-15.5) % Sodium 147 H (137-145) mmol/L Potassium 3.1 L (3.5-5.1) mmol/L Chloride 110 H (98-107) mmol/L Carbon Dioxide 34 H (22-30) mmol/L BUN 24 H (7-17) mg/dL Glucose 169 H (74-99) mg/dL POC Glucose (mg/dL) 171 H (75-99) mg/dL Calcium 8.0 L (8.4-10.2) mg/dL AST (14-36) U/L ALT (4-34) U/L Creatine Kinase 2175 H* (30-135) U/L Total Protein (6.3-8.2) g/dL Albumin (3.5-5.0) g/dL CSF RBC (0-10) u/L CSF Tot Nucleated Cells (0-5) u/L CSF Glucose (40-70) mg/dL Microbiology - Last 24 Hours (Table) 07/20/21 19:10 CSF Gram Stain - Preliminary Cerebral Spinal Fluid CSF Culture - Preliminary 07/19/21 12:11 Urine Culture - Final Urine,Catheterized Assessment and Plan Plan: 1 acute delirium/severe agitation, could be related to methamphetamine reaction/overdose. Urine drug screen was positive. CAT scan of the brain is negative. The patient is having acute delirium/psychosis with possible seizure activity although this is not certain as the patient did not demonstrate any automatic behavior or any other clinical features of seizures. Underlying encephalitis cannot be completely ruled out. The patient was done and acyclovir. No indication for any seizure activity. No indication for bacterial meningitis. The patient is under the effect of Precedex and Haldol at this point in time. Currently much more awake, less confused and less agitated. Remains on the Precedex at 0.5 mics per kilo per minute and when necessary doses of Haldol 2 polysubstance abuse and the dressing was positive for amphetamine, methamphetamine, marijuana and opiates 3 hypernatremia related to free water deficit 4 subtle small subdural hematoma on the follow-up brain CT on 07/21/2021 with no additional areas suspicious for acute intracranial hemorrhage 5 rule out possibility of encephalitis, patient is status post lumbar puncture on 07/12/2021 showing bloody CSF, with large amount of red blood cells, nucleated cells, glucose was 165, CSF culture remains negative 6 acute kidney injury secondary to above, improving and the creatinine is down to 0.65 7 obstructive sleep apnea, per history and the patient has not taken any form of CPAP therapy 8 hypertension 9 hyperlipidemia 10 diabetes mellitus 11 fibromyalgia 12 chronic pain with degenerative arthritis and disc disease 13 acute leukocytosis, improving 14 positive TANIYA without indication of underlying lupus 15 anion gap metabolic acidosis with a serum bicarb of 8, corrected with bicarbonate replacement 16 Rhabdo secondary to above Assessment: Neurologically patient level of consciousness is improved, and she is less agitated and more cooperative Today's brain CT was noted Continue antibiotics per ID service recommendations, so far CSF culture remains negative We'll stop the bicarbonate infusion Start D5W at 50 ML per hour Allow clear liquid diet with supervision Continue close neurological monitoring in the ICU We'll continue to follow I performed a history & physical examination of the patient and discussed their management with my nurse practitioner, Kim Galindo. I reviewed the nurse practitioner's note and agree with the documented findings and plan of care. Lung sounds are positive for diminished breath sounds throughout the lung powers. The findings and the impression was discussed with the patient. I attest to the documentation by the nurse practitioner. Time with Patient: Greater than 30
[2021-07-21] MEDS: DILTIAZEM 125 MG in SODIUM CHLORIDE 0.9% 100 ML IV SCH ×2 (10:51→23:38)
[2021-07-21 11:15] LABS: Glucose,Whole Blood 132 mg/dL (75-99)
--- NOTE | 2021-07-21 11:43 | P.PN ---
Subjective Progress Note Date: 07/21/21 The patient is seen at bedside and per the nurse, patient condition is improved compared to her presentation. Patient denied of any headaches, any nausea any vomiting, she did the agree that she is using drugs and she said that she uses it once in a while. Patient denies of any focal weakness, numbness, any difficulty getting her words out. She denies of any fevers prior presented to the hospital. Objective - Vital Signs Vital signs: Vital Signs Temp 98.2 F 07/21/21 08:03 Pulse 72 07/21/21 10:30 Resp 17 07/21/21 10:30 BP 153/77 07/21/21 10:30 Pulse Ox 94 L 07/21/21 10:30 Intake & Output 07/20/21 07/21/21 07/21/21 18:59 06:59 18:59 Intake Total 2310.334 2996.546 906.258 Output Total 845 625 375 Balance 0718.000 8048.546 531.258 Weight 89 kg Intake: IV 100 Sodium Chloride 0.9% 1, 100 000 ml @ 130 mls/hr IV . Q7H42M [facility] Rx#:[id number] Intake, IV Titration 2210.334 2996.546 546.258 Amount Acyclovir Sodium 800 mg 250 500 In Sodium Chloride 0.9% 250 ml @ 100 mls/hr IV Q8H [facility] Rx#:[id number] Dexmedetomidine/0.9% NaCl 10.334 146.546 46.258 (Pmx) 400 mcg In Empty Bag 1 bag @ 0.2 MCG/KG/HR 3.969 mls/hr IV .Q24H [facility] Rx#:[id number] Dextrose 5% in Water 1, 1650 1800 150 000 ml @ 150 mls/hr IV . Q7H40M [facility] with Sodium Bicarb (1 Meq/ml) 150 ml Rx#:[id number] Dextrose 5% in Water 1, 50 000 ml @ 50 mls/hr IV . Q20H [facility] Rx#:[id number] Meropenem 1 gm In Sodium 200 100 100 Chloride 0.9% 100 ml @ 33 .3 mls/hr IVPB Q8HR [facility] Rx#:[id number] Potassium Chloride 10 meq 100 In Water For Injection 1 100ml.bag @ 100 mls/hr IVPB Q1H [facility] Rx#: [id number] Potassium Chloride 10 meq 200 200 In Water For Injection 1 100ml.bag @ 100 mls/hr IVPB Q1HR [facility] Rx#: [id number] Vancomycin 1,500 mg In 250 Sodium Chloride 0.9% 250 ml @ 125 mls/hr IVPB Q24H [facility] Rx#:[id number] Oral 360 Output: Urine 845 625 375 Other: Voiding Method Indwelling Catheter Indwelling Catheter Indwelling Catheter - Exam GENERAL: The patient is lying in bed and does not seem in acute distress HENT: Supple neck. No nuchal rigidity. NEUROLOGICAL: Higher mental function: The patient is awake, alert, oriented to self, place. She knew the month but not the year. Patient is following simple commands. No aphasia and no neglect. Cranial nerves: The pupils are round, equal and reactive to light and accommodation. Visual powers are full to confrontation throughout. Extraocular movement is intact no nystagmus is noted. Facial sensation is normal to touch throughout. The facial strength is normal throughout. Hearing is normal bilaterally to hand rub. Tongue is midline and moved [id number] without any difficulty. No dysarthria is noted. Shoulder shrug is normal bilaterally. Motor: The strength is 5 over 5 throughout. Normal tone and bulk. Cerebellum: Normal finger to nosebilaterally. Sensation: Sensation is normal to touch throughout. Reflexes (right/left): 2+ throughout. Plantars are downgoing bilaterally. WORK-UP: CT of the head is reported as no acute intracranial hemorrhage or midline shift. Suboptimal study. There is mild to moderate diffuse cerebral atrophy greatest over bilateral frontal and temporal lobe. Repeat CT of the head is reported as supple small subdural hematoma along the left tentorium may be present. This could be confirmed with MRI without contrast. No additional areas suspicious for acute intracranial hemorrhage. CSF: Color is red, red blood cell is 99,500, CSF total nucleated cells is 56, basophils is 1, CSF mononuclear white blood cell is 22, CSF polynuclear white blood cell was 77, CSF red blood cell is 100 and the CSF glucose is 165. So this is a traumatic tap and that with correction the total nucleated cells will be 0. Routine EEG ON 07/20/2021: Is abnormal. The background slowing is suggestive of moderate to severe encephalopathy. There are no focal slowing, epileptiform discharges or seizure on the EEG. AST of 33 and ALT of 23, ammonia is 28, CK levels 549 Nunn virus PCR was not detected. Urine toxicology screen is positive for opiates, amphetamine, methamphetamine, benzoyl, marijuana. Otherwise the rest of basic urine drug screen was not detected in the serum alcohol is the less than 10 Urinalysis it cloudy, nitrate was negative, leukocyte esterase negative, urine white blood cells 20 and my humble opinion this is not suggestive of urinary tract infection. Vitamin B12 is 186 which is considered deficient Serum folate is 13.9 TSH is 3.550. AST of 33 and ALT of 23 Ammonia level is 28. - Labs CBC & Chem 7: 07/21/21 03:42 07/21/21 03:42 Labs: Abnormal Lab Results - Last 24 Hours (Table) 07/20/21 07/20/21 07/20/21 Range/Units 11:41 13:20 17:23 Hgb (11.4-16.0) gm/dL Hct (34.0-46.0) % RDW (11.5-15.5) % Sodium 148 H (137-145) mmol/L Potassium (3.5-5.1) mmol/L Chloride 117 H (98-107) mmol/L Carbon Dioxide 17 L (22-30) mmol/L BUN 35 H (7-17) mg/dL Glucose 127 H (74-99) mg/dL POC Glucose (mg/dL) 160 H 163 H (75-99) mg/dL Calcium (8.4-10.2) mg/dL AST (14-36) U/L ALT (4-34) U/L Creatine Kinase (30-135) U/L Total Protein (6.3-8.2) g/dL Albumin (3.5-5.0) g/dL CSF RBC (0-10) u/L CSF Tot Nucleated Cells (0-5) u/L CSF Glucose (40-70) mg/dL 07/20/21 07/20/21 07/21/21 Range/Units 19:10 22:10 03:42 Hgb (11.4-16.0) gm/dL Hct (34.0-46.0) % RDW (11.5-15.5) % Sodium (137-145) mmol/L Potassium (3.5-5.1) mmol/L Chloride (98-107) mmol/L Carbon Dioxide (22-30) mmol/L BUN (7-17) mg/dL Glucose (74-99) mg/dL POC Glucose (mg/dL) 170 H (75-99) mg/dL Calcium (8.4-10.2) mg/dL AST 85 H (14-36) U/L ALT 35 H (4-34) U/L Creatine Kinase (30-135) U/L Total Protein 5.5 L (6.3-8.2) g/dL Albumin 3.1 L (3.5-5.0) g/dL CSF RBC 17061 H (0-10) u/L CSF Tot Nucleated Cells 56 H* (0-5) u/L CSF Glucose 165 H (40-70) mg/dL 07/21/21 07/21/21 07/21/21 Range/Units 03:42 03:42 05:58 Hgb 10.4 L (11.4-16.0) gm/dL Hct 32.7 L (34.0-46.0) % RDW 17.0 H (11.5-15.5) % Sodium 147 H (137-145) mmol/L Potassium 3.1 L (3.5-5.1) mmol/L Chloride 110 H (98-107) mmol/L Carbon Dioxide 34 H (22-30) mmol/L BUN 24 H (7-17) mg/dL Glucose 169 H (74-99) mg/dL POC Glucose (mg/dL) 171 H (75-99) mg/dL Calcium 8.0 L (8.4-10.2) mg/dL AST (14-36) U/L ALT (4-34) U/L Creatine Kinase 2175 H* (30-135) U/L Total Protein (6.3-8.2) g/dL Albumin (3.5-5.0) g/dL CSF RBC (0-10) u/L CSF Tot Nucleated Cells (0-5) u/L CSF Glucose (40-70) mg/dL 07/21/21 Range/Units 11:14 Hgb (11.4-16.0) gm/dL Hct (34.0-46.0) % RDW (11.5-15.5) % Sodium (137-145) mmol/L Potassium (3.5-5.1) mmol/L Chloride (98-107) mmol/L Carbon Dioxide (22-30) mmol/L BUN (7-17) mg/dL Glucose (74-99) mg/dL POC Glucose (mg/dL) 132 H (75-99) mg/dL Calcium (8.4-10.2) mg/dL AST (14-36) U/L ALT (4-34) U/L Creatine Kinase (30-135) U/L Total Protein (6.3-8.2) g/dL Albumin (3.5-5.0) g/dL CSF RBC (0-10) u/L CSF Tot Nucleated Cells (0-5) u/L CSF Glucose (40-70) mg/dL Microbiology - Last 24 Hours (Table) 07/20/21 19:10 CSF Gram Stain - Preliminary Cerebral Spinal Fluid CSF Culture - Preliminary 07/19/21 12:11 Urine Culture - Final Urine,Catheterized Assessment and Plan Assessment: * Altered mental status with severe agitation Likely due to toxic encephalopathy (polysubstance use. Per ED, the son notified them that this happens whenever patient uses meth). CSF is traumatic and 56 nucleated cells (corrected nuceated cell is 0 since this is traumatic tap). Patient denies of headache, nausea, vomiting or fever prior to presentation. -----Her mentation is improved * ?Repeat CT of the head is reported as supple small subdural hematoma along the left tentorium may be present. * Vitamin B12 is 186 which is considered deficient * Leukocytosis--trending down * Polydrug use (UDS is positive for opiates, amphetamine, methamphetamine, benzo, marijuana). * Acute kidney insufficiency--trending down * History of meningitis and was in a coma last report for 1 week and that was possibly in 2013 * Diabetes mellitus and currently her blood sugar is slight elevated * Hypertension * Hyperlipidemia * History of fibromyalgia Plan: * Ordered MRI Brain STAT to rule out bleed that was questionable on CT brain. * The patient is on acyclovir 800mg q12hr, Vancomycin and meropenem and will defer medication management to the I.D. team. I spoke with I.D. and he agrees and he feels CSF was negative and he will modify her medications. * I started the patient on vitamin B12 1000mcg daily IM and once is more awake will change to PO (is Vitamin B12 deficient). * Will switch thiamine 1000 mcg daily IV to PO. * We'll defer the rest of the medical management to the primary as well as ICU team Condition: Is guarded. The plan is discussed with the ICU attending and ICU nurse. UPDATE: MRI the brain without is reported as no suspicious changes to suggest acute or subacute hemorrhage. Note is made of mild bilateral mastoiditis. Buck Washington M.D. Neuro-hospitalist Time with Patient: Less than 30
--- NOTE | 2021-07-21 12:21 | P.PN ---
Subjective This is a pleasant 70 years old female with past medical history of Asthma, Diabetes Mellitus, Fibromyalgia, Hyperlipidemia, Hypertension, Musculoskeletal Disorder, Osteoarthritis,Sleep Apnea not using CPAP/BIPAP, tested positive for lupus with no symptoms, chronic back pain from her degenerative disc disease. Presents on 07/19 for altered mental status when neighbors called on patient because she will she was in her apartment screaming and found confused and covered with diarrhea. Patient also admitted to the ICU since admission for close monitoring and she is currently on Precedex as well as received several doses of IV Haldol last night of a total of 10 mg and today morning she is obtunded and not follow commands or answer questions. She did not withdraw to pain stimuli. Her pupils are equal and reactive. Also there was a report of diarrhea upon admission, CT of the abdomen and pelvis and CT of the head were unremarkable upon admission. EEG showing no epileptiform discharge. And the low vitamin B12 186 is been replaced currently. UDS is positive for opiates, amphetamine, methamphetamine, benzo, marijuana Also patient had fever upon admission of 101 on 07/19 CBC showing trending down WBC 20.7 down to 11.0. ESR is elevated at 39. Creatinine coming down to 1.6 down to 1.19. Sodium 146, the MP and liver enzymes are unremarkable. Creatinine kinase elevated 546 up to 2515 today. Coronavirus not detected. 07/21/2021 Patient today woke up she is alert oriented to time place and person, she knows she is in [facility] and she knew the name of the president but she could not tell the date. Cor weakness or other complaints. Hemodynamically stable and she's been afebrile for more than 48 hours. WBC is back to normal at 7.8, creatinine normal , CK is trending down to 2175 Lumbar puncture looks traumatic, CSF culture and other studies are pending 2consult and is pending Repeat CT of the brain today shows questionable subtle left subdural hematoma, because of this MRI of the brain is ordered and subcu heparin was discontinued Patient remains on acyclovir, meropenem and IV vancomycin, B12 replacement thia mine, also she is on D5W for sodium is slightly elevated at 147 Objective - Vital Signs Vital signs: Vital Signs Temp 98.2 F 07/21/21 08:03 Pulse 74 07/21/21 12:00 Resp 24 07/21/21 12:00 BP 131/65 07/21/21 12:00 Pulse Ox 94 L 07/21/21 12:00 Intake & Output 07/20/21 07/21/21 07/21/21 18:59 06:59 18:59 Intake Total 2310.334 2996.546 906.258 Output Total 845 625 375 Balance 2642.154 7049.546 531.258 Weight 89 kg Intake: IV 100 Sodium Chloride 0.9% 1, 100 000 ml @ 130 mls/hr IV . Q7H42M [facility] Rx#:[id number] Intake, IV Titration 2210.334 2996.546 546.258 Amount Acyclovir Sodium 800 mg 250 500 In Sodium Chloride 0.9% 250 ml @ 100 mls/hr IV Q8H [facility] Rx#:[id number] Dexmedetomidine/0.9% NaCl 10.334 146.546 46.258 (Pmx) 400 mcg In Empty Bag 1 bag @ 0.2 MCG/KG/HR 3.969 mls/hr IV .Q24H [facility] Rx#:[id number] Dextrose 5% in Water 1, 1650 1800 150 000 ml @ 150 mls/hr IV . Q7H40M [facility] with Sodium Bicarb (1 Meq/ml) 150 ml Rx#:[id number] Dextrose 5% in Water 1, 50 000 ml @ 50 mls/hr IV . Q20H [facility] Rx#:[id number] Meropenem 1 gm In Sodium 200 100 100 Chloride 0.9% 100 ml @ 33 .3 mls/hr IVPB Q8HR [facility] Rx#:[id number] Potassium Chloride 10 meq 100 In Water For Injection 1 100ml.bag @ 100 mls/hr IVPB Q1H [facility] Rx#: [id number] Potassium Chloride 10 meq 200 200 In Water For Injection 1 100ml.bag @ 100 mls/hr IVPB Q1HR [facility] Rx#: [id number] Vancomycin 1,500 mg In 250 Sodium Chloride 0.9% 250 ml @ 125 mls/hr IVPB Q24H [facility] Rx#:[id number] Oral 360 Output: Urine 845 625 375 Other: Voiding Method Indwelling Catheter Indwelling Catheter Indwelling Catheter - Exam -GENERAL: The patient is alert awake and oriented 2. not to date. No distress. HEENT: Pupils are round and equally reacting to light. EOMI. No scleral icterus. No conjunctival pallor. Normocephalic, atraumatic. No pharyngeal erythema. No thyromegaly. CARDIOVASCULAR: S1 and S2 present. No murmurs, rubs, or gallops. PULMONARY: Chest is clear to auscultation, no wheezing or crackles. ABDOMEN: Soft, nontender, nondistended, normoactive bowel sounds. No palpable organomegaly. MUSCULOSKELETAL: No joint swelling or deformity. EXTREMITIES: No cyanosis, clubbing, or pedal edema. NEUROLOGICAL: Gross neurological examination did not reveal any focal deficits. SKIN: No rashes. no petechiae. - Labs CBC & Chem 7: 07/21/21 03:42 07/21/21 03:42 Labs: Abnormal Lab Results - Last 24 Hours (Table) 07/20/21 07/20/21 07/20/21 Range/Units 13:20 17:23 19:10 Hgb (11.4-16.0) gm/dL Hct (34.0-46.0) % RDW (11.5-15.5) % Sodium 148 H (137-145) mmol/L Potassium (3.5-5.1) mmol/L Chloride 117 H (98-107) mmol/L Carbon Dioxide 17 L (22-30) mmol/L BUN 35 H (7-17) mg/dL Glucose 127 H (74-99) mg/dL POC Glucose (mg/dL) 163 H (75-99) mg/dL Calcium (8.4-10.2) mg/dL AST (14-36) U/L ALT (4-34) U/L Creatine Kinase (30-135) U/L Total Protein (6.3-8.2) g/dL Albumin (3.5-5.0) g/dL CSF RBC 46947 H (0-10) u/L CSF Tot Nucleated Cells 56 H* (0-5) u/L CSF Glucose 165 H (40-70) mg/dL 07/20/21 07/21/21 07/21/21 Range/Units 22:10 03:42 03:42 Hgb (11.4-16.0) gm/dL Hct (34.0-46.0) % RDW (11.5-15.5) % Sodium 147 H (137-145) mmol/L Potassium 3.1 L (3.5-5.1) mmol/L Chloride 110 H (98-107) mmol/L Carbon Dioxide 34 H (22-30) mmol/L BUN 24 H (7-17) mg/dL Glucose 169 H (74-99) mg/dL POC Glucose (mg/dL) 170 H (75-99) mg/dL Calcium 8.0 L (8.4-10.2) mg/dL AST 85 H (14-36) U/L ALT 35 H (4-34) U/L Creatine Kinase 2175 H* (30-135) U/L Total Protein 5.5 L (6.3-8.2) g/dL Albumin 3.1 L (3.5-5.0) g/dL CSF RBC (0-10) u/L CSF Tot Nucleated Cells (0-5) u/L CSF Glucose (40-70) mg/dL 07/21/21 07/21/21 07/21/21 Range/Units 03:42 05:58 11:14 Hgb 10.4 L (11.4-16.0) gm/dL Hct 32.7 L (34.0-46.0) % RDW 17.0 H (11.5-15.5) % Sodium (137-145) mmol/L Potassium (3.5-5.1) mmol/L Chloride (98-107) mmol/L Carbon Dioxide (22-30) mmol/L BUN (7-17) mg/dL Glucose (74-99) mg/dL POC Glucose (mg/dL) 171 H 132 H (75-99) mg/dL Calcium (8.4-10.2) mg/dL AST (14-36) U/L ALT (4-34) U/L Creatine Kinase (30-135) U/L Total Protein (6.3-8.2) g/dL Albumin (3.5-5.0) g/dL CSF RBC (0-10) u/L CSF Tot Nucleated Cells (0-5) u/L CSF Glucose (40-70) mg/dL Microbiology - Last 24 Hours (Table) 07/20/21 19:10 CSF Gram Stain - Preliminary Cerebral Spinal Fluid CSF Culture - Preliminary 07/19/21 12:11 Urine Culture - Final Urine,Catheterized Assessment and Plan Assessment: Altered mental status, most likely secondary to toxic encephalopathy. Mild left subdural hematoma Vitamin B12 deficiency Polysubstance abuse Hypertension Diabetes mellitus Hyperlipidemia History of fibromyalgia History of osteoarthritis and chronic back pain History of sleep apnea on CPAP/BiPAP Plan: This is a pleasant 70 years old female who presents with altered mental status. Possible infection Continue with broad-spectrum antibiotics per ID team. Currently she is on acyclovir, meropenem and IV vancomycin Follow-up Results of lumbar puncture and MRI of the brain Continue with ICU management With critical care team on the consult Labs and medication were reviewed.. Continue same treatment. Continue with symptomatic treatment. Resume home medication. Monitor lytes and vitals. DVT and GI prophylaxis. Further recommendationsas per clinical course of the patient DVT prophylaxis: Discontinued Subcutaneous heparin for possible SDH GI Prophylaxis: Ppi Prognosis is guarded
[2021-07-21] MEDS: THIAMINE 100 MG TAB PO SCH (12:24)
[2021-07-21] MEDS: CYANOCOBALAMIN 500 MCG TAB PO SCH (12:24)
[2021-07-21] MEDS ORDERED: VANCOMYCIN 1,500 MG in SODIUM CHLORIDE 0.9% 250 ML IVPB SCH (14:00)
--- NOTE | 2021-07-21 14:20 | MR ---
EXAMINATION TYPE: MR brain wo con DATE OF EXAM: 07/21/2021 COMPARISON: 07/21/2021 CT brain HISTORY: ? small subdural hematoma on left per CT head CONTRAST: Performed utilizing 0 mL intravenous Gadavist gadolinium contrast. TECHNIQUE: Multiplanar, multiecho imaging on a 3.0 Geri magnet is performed through the brain. Stud y is performed within 24 hours of arrival to the hospital. The craniovertebral junction is normal. The pituitary is normal. Diffusion-weighted imaging is performed. No abnormal hyperintensity is present to suggest an acute i ntracranial infarct or acute ischemic change. Signal of the brain is normal. Attention is paid along the left tentorium. No tentorial thickening is evident. Signal appears normal without blooming artifact or signal abnormality to suggest subdural hematoma. Previous findings may be related to asymmetry within the gantry along the tentorium. Ventricles and sulci are appropriate for the patient age. Minimal fluid is within the bilateral mastoid air cells. Correlate for mild mastoiditis. IMPRESSIONS: 1. No suspicious changes to suggest acute or subacute hemorrhage. 2. Note is made of mild bilateral mastoiditis
[2021-07-21 17:11] LABS: Glucose,Whole Blood 118 mg/dL (75-99)
[2021-07-21 20:21] LABS: Glucose,Whole Blood 116 mg/dL (75-99)
[2021-07-21] MEDS: traMADol 50 MG TAB PO PRN (23:45)
[2021-07-22] MEDS: LIDOCAINE 5% PATCH TOPICAL SCH ×2 (05:09→08:47)
[2021-07-22] MEDS: ACYCLOVIR SODIUM 800 MG in SODIUM CHLORIDE 0.9% 250 ML IV SCH (05:09)
[2021-07-22 05:11] LABS: Anisocytosis Slight; Basophils % (A) 0 %; Eosinophils # (A) 0.2 k/uL (0-0.7); Eosinophils % (A) 2 %; HCT 31.8 % (34.0-46.0); HGB 10.1 gm/dL (11.4-16.0); Lymphocytes # (A) 1.9 k/uL (1.0-4.8); Lymphocytes % (A) 25 %; MCH 26.8 pg (25.0-35.0); MCHC 31.9 g/dL (31.0-37.0); MCV 84.1 fL (80.0-100.0); Mean Platelet Volume 8.3; Monocytes # (A) 0.4 k/uL (0-1.0); Monocytes % (A) 5 %; Neutrophils # (A) 4.9 k/uL (1.3-7.7); Neutrophils % (A) 66 %; Platelet Count 267 k/uL (150-450); RBC 3.78 m/uL (3.80-5.40); RDW 16.8 % (11.5-15.5); WBC 7.5 k/uL (3.8-10.6)
[2021-07-22] MEDS: DEXTROSE 5% IN WATER 1,000 ML IV SCH (05:11)
[2021-07-22 05:34] LABS: African American GFR (CKD) >90 (>60 ml/min/1.73 sqM); Anion Gap 7 mmol/L; Blood Urea Nitrogen 12 mg/dL (7-17); C Reactive Protein 4.6 mg/dL (<1.0); Calcium 7.7 mg/dL (8.4-10.2); Carbon Dioxide 27 mmol/L (22-30); Chloride 102 mmol/L (98-107); Glucose 119 mg/dL (74-99); Non-African American GFR(CKD) >90 (>60 ml/min/1.73 sqM); Sodium 136 mmol/L (137-145)
[2021-07-22 05:49] LABS: Potassium 2.6 mmol/L (3.5-5.1)
[2021-07-22] MEDS: POTASSIUM CHLORIDE ER 20 MEQ TAB.ER PO SCH ×3 (06:22→08:47)
[2021-07-22 06:46] LABS: Glucose,Whole Blood 122 mg/dL (75-99)
[2021-07-22] MEDS: INSULIN ASPART (NovoLOG) 100 UNIT/ML VIAL SQ SCH ×4 (06:46→21:07)
--- NOTE | 2021-07-22 08:11 | XR ---
EXAMINATION TYPE: XR chest 2V DATE OF EXAM: 07/22/2021 COMPARISON: 03/05/2019 HISTORY: Shortness of breath TECHNIQUE: Frontal and lateral views of the chest are obtained. FINDINGS: Scattered senescent parenchymal changes noted. Hyperinflation compatible with COPD. Mild increased density right medial lung base and left lower lobe may reflect atelectasis or infiltra te. Correlate clinically. Heart size is stable. Mediastinal structures are stable and grossly unremarkable. No evidence for hilar prominence. Degenerative changes dorsal spine. IMPRESSION: 1. Mild increased density right medial lung base and left lower lobe may reflect atelectasis or infil trate. Correlate clinically.
[2021-07-22] MEDS: MEROPENEM 1 GM in SODIUM CHLORIDE 0.9% 100 ML IVPB SCH ×2 (08:46→16:50)
[2021-07-22] MEDS: CYANOCOBALAMIN 500 MCG TAB PO SCH (08:47)
[2021-07-22] MEDS: THIAMINE 100 MG TAB PO SCH (08:47)
[2021-07-22] MEDS: PANTOPRAZOLE 40 MG/10 ML VIAL IVP SCH (08:48)
--- NOTE | 2021-07-22 09:14 | P.PN ---
Subjective Progress Note Date: 07/22/21 Principal diagnosis: Metabolic encephalopathy secondary to drug overdose 70-year-old female patient, who is coming into the emergency department because of altered mentation. The patient was quite agitated. The patient was found to be restless and screaming at home and quite agitated. Her neighbors called EMS and the patient was brought into the hospital. EMS found the patient in apartment covered with diarrhea and this was involving the entire body including the face. Her blood sugar was normal on the scene. No neck stiffness. Hemodynamically stable. She has multiple comorbidities. She is morbidly obese and she suffers from chronic pain and she has back pain due to degenerative arthritis and bulging this in addition to fibromyalgia and she has a positive TANIYA and has not had the typical lupus symptoms. Other comorbid conditions include obstructive sleep apnea, nontolerant to CPAP therapy, hypertension and hyperlipidemia diabetes mellitus and substance abuse. According to the family, this type of reaction happens to her when she takes methamphetamine, and she has had similar reactions in the past. Her last normal state was around 2 days ago and at that time the patient was walking and talking and there are verbalizing appropriately. The patient came into the emergency and pulmonary workup showed a urine drug screen that was positive for amphetamine, methamphetamine, marijuana, and opiates. Alcohol was nondetected and was less than 10. Her CAT scan of the brain showed mild to moderate diffuse cerebral atrophy without any acute abnormalities. White cell count was 20.7. She was in acute kidney injury with a creatinine of 1.66 with a BMI of 27 and a sodium level of 144. LFTs were within normal limits. CPK was mildly elevated at 549. Coreg 19 testing was negative. UA was negative. CAT scan of the abdomen and pelvis was negative. C hest x-ray was negative. The patient is currently on room air oxygen. She with rash and she was moving all 4 extremities and she will try to jump out of bed. Upon repeated stimulation, I was able to do some limited communication with her. She was able to tell me her name and nothing more than that. She gets quite agitated and she is currently in 4. restraints. In the emergency, she was given a total of 6 mg of Ativan without much of an improvement. No neck stiffness. No head trauma.. She is hemodynamically stable. 28 2020, the patient is being seen for a follow-up. As mentioned earlier, the patient was suspected to have a methamphetamine overdose or toxicity. Her presentation was typical as the patient was having acute delirium/psychosis-type of picture. The patient came in to the ICU. She remains quite agitated despite being on Precedex0 is still having episodes of 0.5 mcg/kg/h. The patient was also given Haldol and I think the estimated dose of Haldol was in the order of 10 mg overnight. This morning, the patient is quite sedated. No agitation. No seizure activity. EEG was done and showed no epileptic focus in this patient. Neck is not stiff. She is afebrile. Meanwhile, she has developed a mild degree of rhabdomyolysis. CPK level is up to 2500 and the patient has a anion gap metabolic acidosis. Serum bicarbonate dropped down to 8 and the patient's anion gap is currently at 21. Renal function is improved in the creatinine is at 1.1. LDH level was 1359 with a CRP level of 0.8.9. The patient is hemodynamically stable. She was given a total of 100 mEq of sodium bicarb IV push and currently she is on a bicarb drip which is running at the rate of 150 mL an hour. She is withdrawing to painful stimulation all 4 extremities. Otherwise she is in under the effect of Haldol and she is quite sedated at this point in time. No yelling. No agitation. No thrashing activity. Urine output is in order of 100 mL an hour. She is currently on room air oxygen. On 07/21/2021 patient seen in follow-up in intensive care unit, she is more awake today, and less confused, she was able to tell me her full name, and she knew she was at [facility], she could not tell the month or the year, but she knew the president. She denied using methamphetamine, she denies any illicit drugs with the exception of marijuana, which she uses on a regular basis. She stated that she resides alone, her son does do methamphetamine, however he does not live with her and she is not sure how she could have had positive methamphetamine in her drug screen. Nevertheless clinically she seems to be much improved, no agitation, she is quite pleasant on today's exam, very cooperative. She is breathing comfortably, she denies any chest pain, denies any discomfort. Vital signs are stable, room air pulse ox is 90-91%, she is afebrile, hemodynamically she is stable. She did have a lumbar puncture yesterday, and CSF fluid showed large amount of red blood cells, and 56 of nucleated cells, glucose was 165, and a LP fluid was bloody. CSF culture has sh own no organisms thus far. Urine culture has shown no organisms. She remains on acyclovir, meropenem and vancomycin, ID service is following. Brain CT was a did showing subtle small subdural hematoma along the left tentorium, and MRI without contrast was recommended for confirmation, there was no additional areas suspicious for acute intracranial hemorrhage. Hemodynamically patient is stable, sinus mechanism with some PACs, with a rate of 87 BPM, blood pressure is stable. Patient is receiving D5W with 3 A of bicarbonate. Also remains on Precedex at 0.5 mics per kilo per minute, has received when necessary doses of Haldol for episodes of agitation. No nausea vomiting or diarrhea, Paulino catheter is in place, and patient is making 30-50 ML of urine per hour, she has remained nothing by mouth, however she is feeling thirsty and she is asking for water. Today's labs have been reviewed, her white blood cell count is 7.8, hemoglobin is 10.4, platelet count is 286, sodium is 147, potassium is 3.1, chloride is 110, CO2 34, BUN is 24, creatinine 0.65, ammonia level was less than 9, CK was 2175 The patient is seen today 07/22/2021 follow-up in the intensive care unit. She is currently resting flat in bed. Awake and alert in no acute distress. Denies any shortness of breath, cough or congestion. Denies any headache. Denies any visual disturbances. No dizziness or lightheadedness. She continues to maintain good O2 saturations in the 90s on room air. His x-ray reveals some mild density in the right medial lung base with left lower lobe atelectasis. MRI of the brain revealed no suspicious changes to suggest acute or subacute hemorrhage. Some mild bilateral mastoiditis. Cerebral spinal fluid was traumatic and inconclusive. White count 7.5. Hemoglobin 10.1. Platelets 267. Sodium 136. Potassium 2.6. Creatinine 0.44. C-reactive protein 4.6. She remains on acyclovir, meropenem and I mean. She has been calm and cooperative. Off Precedex. No Haldol required. Objective - Vital Signs Vital signs: Vital Signs Temp 97.7 F 07/22/21 00:00 Pulse 97 07/22/21 07:00 Resp 19 07/22/21 07:00 BP 130/76 07/22/21 07:00 Pulse Ox 95 07/22/21 07:00 Intake & Output 07/21/21 07/22/21 07/22/21 18:59 06:59 18:59 Intake Total 2426.258 800 50 Output Total 1055 600 Balance 1371.258 200 50 Weight 94.4 kg Intake: IV 350 50 Dextrose 5% in Water 1, 350 50 000 ml @ 150 mls/hr IV . Q7H40M [facility] with Sodium Bicarb (1 Meq/ml) 150 ml Rx#:[id number] Intake, IV Titration 1346.258 450 Amount Acyclovir Sodium 800 mg 250 In Sodium Chloride 0.9% 250 ml @ 100 mls/hr IV Q8H [facility] Rx#:[id number] Dexmedetomidine/0.9% NaCl 46.258 (Pmx) 400 mcg In Empty Bag 1 bag @ 0.2 MCG/KG/HR 3.969 mls/hr IV .Q24H [facility] Rx#:[id number] Dextrose 5% in Water 1, 150 000 ml @ 150 mls/hr IV . Q7H40M [facility] with Sodium Bicarb (1 Meq/ml) 150 ml Rx#:[id number] Dextrose 5% in Water 1, 500 200 000 ml @ 50 mls/hr IV . Q20H [facility] Rx#:[id number] Meropenem 1 gm In Sodium 200 Chloride 0.9% 100 ml @ 33 .3 mls/hr IVPB Q8HR [facility] Rx#:[id number] Potassium Chloride 10 meq 200 In Water For Injection 1 100ml.bag @ 100 mls/hr IVPB Q1HR [facility] Rx#: [id number] Vancomycin 1,500 mg In 250 Sodium Chloride 0.9% 250 ml @ 125 mls/hr IVPB Q24H [facility] Rx#:[id number] Oral 1080 Output: Urine 1055 600 Other: Voiding Method Toilet Toilet # Voids 1 # Bowel Movements 1 - Exam GENERAL EXAM: Alert, active, pleasant 70-year-old female patient, on room air, comfortable in no apparent distress. HEAD: Normocephalic. EYES: Normal reaction of pupils, equal size. NOSE: Clear with pink turbinates. THROAT: No erythema or exudates. NECK: No masses, no JVD. CHEST: No chest wall deformity. LUNGS: Equal air entry with basilar crackles. CVS: S1 and S2 normal with no audible murmur, regular rhythm. ABDOMEN: No hepatosplenomegaly, normal bowel sounds, no guarding or rigidity. SPINE: No scoliosis or deformity SKIN: No rashes CENTRAL NERVOUS SYSTEM: No focal deficits, tone is normal in all 4 extremities. EXTREMITIES: There is no peripheral edema. No clubbing, no cyanosis. Periphe ral pulses are intact. - Labs CBC & Chem 7: 07/22/21 04:34 07/22/21 04:34 Labs: Abnormal Lab Results - Last 24 Hours (Table) 07/20/21 07/20/21 07/21/21 Range/Units 04:43 19:10 11:14 RBC (3.80-5.40) m/uL Hgb (11.4-16.0) gm/dL Hct (34.0-46.0) % RDW (11.5-15.5) % Sodium (137-145) mmol/L Potassium (3.5-5.1) mmol/L Creatinine (0.52-1.04) mg/dL Glucose (74-99) mg/dL POC Glucose (mg/dL) 132 H (75-99) mg/dL Calcium (8.4-10.2) mg/dL C-Reactive Protein (<1.0) mg/dL Procalcitonin 0.23 H (0.02-0.09) ng/mL CSF Total Protein >600 H (12-60) mg/dL 07/21/21 07/21/21 07/22/21 Range/Units 17:10 20:20 04:34 RBC (3.80-5.40) m/uL Hgb (11.4-16.0) gm/dL Hct (34.0-46.0) % RDW (11.5-15.5) % Sodium 136 L (137-145) mmol/L Potassium 2.6 L* (3.5-5.1) mmol/L Creatinine 0.44 L (0.52-1.04) mg/dL Glucose 119 H (74-99) mg/dL POC Glucose (mg/dL) 118 H 116 H (75-99) mg/dL Calcium 7.7 L (8.4-10.2) mg/dL C-Reactive Protein 4.6 H (<1.0) mg/dL Procalcitonin (0.02-0.09) ng/mL CSF Total Protein (12-60) mg/dL 07/22/21 07/22/21 Range/Units 04:34 06:44 RBC 3.78 L (3.80-5.40) m/uL Hgb 10.1 L (11.4-16.0) gm/dL Hct 31.8 L (34.0-46.0) % RDW 16.8 H (11.5-15.5) % Sodium (137-145) mmol/L Potassium (3.5-5.1) mmol/L Creatinine (0.52-1.04) mg/dL Glucose (74-99) mg/dL POC Glucose (mg/dL) 122 H (75-99) mg/dL Calcium (8.4-10.2) mg/dL C-Reactive Protein (<1.0) mg/dL Procalcitonin (0.02-0.09) ng/mL CSF Total Protein (12-60) mg/dL Microbiology - Last 24 Hours (Table) 07/20/21 19:10 CSF Gram Stain - Preliminary Cerebral Spinal Fluid CSF Culture - Preliminary Assessment and Plan Assessment: 1 acute delirium/severe agitation, could be related to methamphetamine reaction/overdose. Urine drug screen was positive. MRI of the brain is negative. Awake, alert, oriented 3 this a.m. Off Precedex. Not requiring Haldol. Calm and cooperative. 2 polysubstance abuse and the dressing was positive for amphetamine, methamphetamine, marijuana and opiates 3 hypernatremia related to free water deficit improved current sodium 136 4 subtle small subdural hematoma on the follow-up brain CT on 07/21/2021 with no additional areas suspicious for acute intracranial hemorrhage. Not seen on MRI of the brain. 5 rule out possibility of encephalitis, patient is status post lumbar puncture on 07/12/2021 showing bloody CSF, with large amount of red blood cells, nucleated cells, glucose was 165, CSF culture remains negative 6 acute kidney injury secondary to above, improving and the creatinine is down t o 0.44 7 obstructive sleep apnea, per history and the patient has not taken any form of CPAP therapy 8 hypertension 9 hyperlipidemia 10 diabetes mellitus 11 fibromyalgia 12 chronic pain with degenerative arthritis and disc disease 13 acute leukocytosis, improving 14 positive TANIYA without indication of underlying lupus 15 anion gap metabolic acidosis with a serum bicarb of 8, corrected with bicarbonate replacement 16 Rhabdo secondary to above Plan: The patient was seen and evaluated by Dr. Lovely Ravi from the pulmonary and critical care standpoint Antibiotics per ID services Could be transferred to the regular medical floor today Encouraged regarding the avoidance of drug use I, the cosigning physician, performed a history & physical examination of the patient. Lungs sounds crackles in the posterior bases. Maintaining good O2 saturations in the 90s on room air. I discussed the assessment and plan of care with my nurse practitioner, Thi Pacheco. I attest to the above note as dictated by her.
--- NOTE | 2021-07-22 09:20 | PN ---
PROGRESS NOTE DATE OF SERVICE: 07/21/2021 REASON FOR FOLLOWUP: Fever and a question of encephalitis. INTERVAL HISTORY: The patient is afebrile. The patient is more awake and alert. She knows that she is in the hospital. Denies having any headache. No chest pain, shortness of breath or cough. No abdominal pain. No diarrhea. EXAMINATION: Blood pressure 124/80. Pulse of 101. Temperature of 98. She is 94% on room air. General description is an elderly female up in the chair in no distress. Respiratory system: Unlabored breathing, decreased breath sounds in the bases. No wheeze. Heart S1, S2. Regular rate and rhythm. Abdomen soft, no tenderness. LABS: Hemoglobin is 10.4, white count 7.8. BUN of 24, creatinine 0.65. CSF culture has been pending so far. DIAGNOSTIC IMPRESSION AND PLAN: Patient admitted to the hospital with significant mental status changes in this patient who did have elevated white count and fever, concern for possible encephalitis. The patient LP was traumatic however, overall white count should not corresponding to the red cells should be more likely corrected 0. However did have elevated protein. HSV DNA by PCR is pending. to continue. Antibiotic will be to cover for possible aspiration pneumonitis. Repeat chest x-ray tomorrow and continue supportive care. MMODL / IJN: [id number] /
--- NOTE | 2021-07-22 10:20 | P.PN ---
Subjective This is a pleasant 70 years old female with past medical history of Asthma, Diabetes Mellitus, Fibromyalgia, Hyperlipidemia, Hypertension, Musculoskeletal Disorder, Osteoarthritis,Sleep Apnea not using CPAP/BIPAP, tested positive for lupus with no symptoms, chronic back pain from her degenerative disc disease. Presents on 07/19 for altered mental status when neighbors called on patient because she will she was in her apartment screaming and found confused and covered with diarrhea. Patient also admitted to the ICU since admission for close monitoring and she is currently on Precedex as well as received several doses of IV Haldol last night of a total of 10 mg and today morning she is obtunded and not follow commands or answer questions. She did not withdraw to pain stimuli. Her pupils are equal and reactive. Also there was a report of diarrhea upon admission, CT of the abdomen and pelvis and CT of the head were unremarkable upon admission. EEG showing no epileptiform discharge. And the low vitamin B12 186 is been replaced currently. UDS is positive for opiates, amphetamine, methamphetamine, benzo, marijuana Also patient had fever upon admission of 101 on 07/19 CBC showing trending down WBC 20.7 down to 11.0. ESR is elevated at 39. Creatinine coming down to 1.6 down to 1.19. Sodium 146, the MP and liver enzymes are unremarkable. Creatinine kinase elevated 546 up to 2515 today. Coronavirus not detected. 07/21/2021 Patient today woke up she is alert oriented to time place and person, she knows she is in [facility] and she knew the name of the president but she could not tell the date. Cor weakness or other complaints. Hemodynamically stable and she's been afebrile for more than 48 hours. WBC is back to normal at 7.8, creatinine normal , CK is trending down to 2175 Lumbar puncture looks traumatic, CSF culture and other studies are pending 2consult and is pending Repeat CT of the brain today shows questionable subtle left subdural hematoma, because of this MRI of the brain is ordered and subcu heparin was discontinued Patient remains on acyclovir, meropenem and IV vancomycin, B12 replacement thia mine, also she is on D5W for sodium is slightly elevated at 147 07/22/2021 Patient is awake and alert [address], date and person. No specific complaints. No headache or weakness. No chest pain or dyspnea. No GI or urinary symptoms. Fever has subsided. Postoperative vitals are stable. Blood pressure elevated this morning 180/90 and she was started on atenolol 50 mg. An informed back pain and controlled with Ultram tramadol 50 mg when necessary, she says she takes 100 mg at home. Also lidocaine patch. The WBC is normal, creatinine normal. Chest x-ray showing mild right mid lung and left lower lung atelectasis. CSF culture and sensitivity are still pending. Patient kept on broad-spectrum antibiotics as per ID team recommendation, currently on meropenem. A cover and IV vancomycin was discontinued Objective - Vital Signs Vital signs: Vital Signs Temp 97.7 F 07/22/21 00:00 Pulse 97 07/22/21 10:00 Resp 9 L 07/22/21 10:00 BP 180/94 07/22/21 10:00 Pulse Ox 94 L 07/22/21 10:00 Intake & Output 07/21/21 07/22/21 07/22/21 18:59 06:59 18:59 Intake Total 2426.258 800 50 Output Total 1055 600 Balance 1371.258 200 50 Weight 94.4 kg Intake: IV 350 50 Dextrose 5% in Water 1, 350 50 000 ml @ 150 mls/hr IV . Q7H40M DIMA with Sodium Bicarb (1 Meq/ml) 150 ml Rx#:[id number] Intake, IV Titration 1346.258 450 Amount Acyclovir Sodium 800 mg 250 In Sodium Chloride 0.9% 250 ml @ 100 mls/hr IV Q8H DIMA Rx#:[id number] Dexmedetomidine/0.9% NaCl 46.258 (Pmx) 400 mcg In Empty Bag 1 bag @ 0.2 MCG/KG/HR 3.969 mls/hr IV .Q24H DIMA Rx#:[id number] Dextrose 5% in Water 1, 150 000 ml @ 150 mls/hr IV . Q7H40M DIMA with Sodium Bicarb (1 Meq/ml) 150 ml Rx#:[id number] Dextrose 5% in Water 1, 500 200 000 ml @ 50 mls/hr IV . Q20H DIMA Rx#:[id number] Meropenem 1 gm In Sodium 200 Chloride 0.9% 100 ml @ 33 .3 mls/hr IVPB Q8HR DIMA Rx#:[id number] Potassium Chloride 10 meq 200 In Water For Injection 1 100ml.bag @ 100 mls/hr IVPB Q1HR DIMA Rx#: [id number] Vancomycin 1,500 mg In 250 Sodium Chloride 0.9% 250 ml @ 125 mls/hr IVPB Q24H DIMA Rx#:[id number] Oral 1080 Output: Urine 1055 600 Other: Voiding Method Toilet Toilet Toilet # Voids 1 0 # Bowel Movements 1 - Exam -GENERAL: The patient is alert awake and oriented 2. not to date. No distress. HEENT: Pupils are round and equally reacting to light. EOMI. No scleral icterus. No conjunctival pallor. Normocephalic, atraumatic. No pharyngeal erythema. No thyromegaly. CARDIOVASCULAR: S1 and S2 present. No murmurs, rubs, or gallops. PULMONARY: Chest is clear to auscultation, no wheezing or crackles. ABDOMEN: Soft, nontender, nondistended, normoactive bowel sounds. No palpable organomegaly. MUSCULOSKELETAL: No joint swelling or deformity. EXTREMITIES: No cyanosis, clubbing, or pedal edema. NEUROLOGICAL: Gross neurological examination did not reveal any focal deficits. SKIN: No rashes. no petechiae. - Labs CBC & Chem 7: 07/22/21 04:34 07/22/21 04:34 Labs: Abnormal Lab Results - Last 24 Hours (Table) 07/20/21 07/20/21 07/21/21 Range/Units 04:43 19:10 11:14 RBC (3.80-5.40) m/uL Hgb (11.4-16.0) gm/dL Hct (34.0-46.0) % RDW (11.5-15.5) % Sodium (137-145) mmol/L Potassium (3.5-5.1) mmol/L Creatinine (0.52-1.04) mg/dL Glucose (74-99) mg/dL POC Glucose (mg/dL) 132 H (75-99) mg/dL Calcium (8.4-10.2) mg/dL C-Reactive Protein (<1.0) mg/dL Procalcitonin 0.23 H (0.02-0.09) ng/mL CSF Total Protein >600 H (12-60) mg/dL 07/21/21 07/21/21 07/22/21 Range/Units 17:10 20:20 04:34 RBC (3.80-5.40) m/uL Hgb (11.4-16.0) gm/dL Hct (34.0-46.0) % RDW (11.5-15.5) % Sodium 136 L (137-145) mmol/L Potassium 2.6 L* (3.5-5.1) mmol/L Creatinine 0.44 L (0.52-1.04) mg/dL Glucose 119 H (74-99) mg/dL POC Glucose (mg/dL) 118 H 116 H (75-99) mg/dL Calcium 7.7 L (8.4-10.2) mg/dL C-Reactive Protein 4.6 H (<1.0) mg/dL Procalcitonin (0.02-0.09) ng/mL CSF Total Protein (12-60) mg/dL 07/22/21 07/22/21 Range/Units 04:34 06:44 RBC 3.78 L (3.80-5.40) m/uL Hgb 10.1 L (11.4-16.0) gm/dL Hct 31.8 L (34.0-46.0) % RDW 16.8 H (11.5-15.5) % Sodium (137-145) mmol/L Potassium (3.5-5.1) mmol/L Creatinine (0.52-1.04) mg/dL Glucose (74-99) mg/dL POC Glucose (mg/dL) 122 H (75-99) mg/dL Calcium (8.4-10.2) mg/dL C-Reactive Protein (<1.0) mg/dL Procalcitonin (0.02-0.09) ng/mL CSF Total Protein (12-60) mg/dL Microbiology - Last 24 Hours (Table) 07/20/21 19:10 CSF Gram Stain - Preliminary Cerebral Spinal Fluid CSF Culture - Preliminary Assessment and Plan Assessment: Altered mental status, most likely secondary to toxic encephalopathy. Secondary to methamphetamine abuse Mild left subdural hematoma Vitamin B12 deficiency Polysubstance abuse Hypertension Diabetes mellitus Hyperlipidemia History of fibromyalgia History of osteoarthritis and chronic back pain History of sleep apnea on CPAP/BiPAP Plan: This is a pleasant 70 years old female who presents with altered mental status. Possible infection Continue with broad-spectrum antibiotics per ID team. Currently she is on meropenem only Follow-up Results of lumbar puncture Continue with ICU management With critical care team on the consult Labs and medication were reviewed.. Continue same treatment. Continue with symptomatic treatment. Resume home medication. Monitor lytes and vitals. DVT and GI prophylaxis. Further recommendationsas per clinical course of the patient DVT prophylaxis: Discontinued Subcutaneous heparin for possible SDH GI Prophylaxis: Ppi Prognosis is guarded
[2021-07-22 11:31] LABS: Glucose,Whole Blood 122 mg/dL (75-99)
[2021-07-22] MEDS: atenoloL 50 MG TAB PO SCH (11:33)
[2021-07-22 16:54] LABS: Glucose,Whole Blood 133 mg/dL (75-99)
[2021-07-22 21:03] LABS: Glucose,Whole Blood 138 mg/dL (75-99)
[2021-07-22] MEDS: lisinopriL 10 MG TAB PO SCH (21:07)
--- NOTE | 2021-07-23 00:27 | PN ---
PROGRESS NOTE DATE OF SERVICE: 07/22/2021 REASON FOR FOLLOWUP: Fever, possible pneumonia. INTERVAL HISTORY: Patient is afebrile. The patient is feeling better. Breathing comfortably. No chest pain, shortness of breath. She did have a cough. No sputum production. No abdominal pain. No diarrhea. PHYSICAL EXAMINATION: Blood pressure 174/80 with a pulse of 74, temperature 98.4. She is 97% on room air. General description is an elderly female up in the bed in no distress. Respiratory system: Unlabored breathing, decreased breath sounds in the base. No wheeze. Heart S1, S2. Regular rate and rhythm. Abdomen: Soft. No tenderness. LABS: Hemoglobin is 10.1, white count 10.5, creatinine is 0.44. Chest x-ray with infiltrate, concern for possible pneumonia. DIAGNOSTIC IMPRESSION AND PLAN: Patient admitted to the hospital with unresponsiveness, did have fever, elevated white count. Has been ruled out for encephalitis/meningitis. Now with concern for possible aspiration pneumonitis, covered with Meropenum, may transition to Unasyn, Augmentin and close outpatient followup. Continue supportive care. MMODL / IJN: [id number] /
[2021-07-23 07:12] LABS: Glucose,Whole Blood 161 mg/dL (75-99)
[2021-07-23 08:07] VITALS: RESP 16
[2021-07-23] MEDS ORDERED: AMOXIC-POT CLAV 875-125MG 1 EACH TAB PO SCH (09:00)
[2021-07-23] MEDS ORDERED: LEVOFLOXACIN 500 MG TAB PO SCH (09:00)
[2021-07-23] MEDS: atenoloL 50 MG TAB PO SCH (09:47)
[2021-07-23] MEDS: INSULIN ASPART (NovoLOG) 100 UNIT/ML VIAL SQ SCH ×3 (09:47→17:12)
[2021-07-23] MEDS: CYANOCOBALAMIN 500 MCG TAB PO SCH (09:47)
[2021-07-23] MEDS: lisinopriL 10 MG TAB PO SCH (09:47)
[2021-07-23] MEDS: PANTOPRAZOLE 40 MG/10 ML VIAL IVP SCH (09:47)
[2021-07-23] MEDS: THIAMINE 100 MG TAB PO SCH (09:47)
[2021-07-23] MEDS: traMADol 50 MG TAB PO PRN (09:50)
[2021-07-23 11:02] LABS: VDRL, Qualitative CSF Nonreactive (Nonreactive)
[2021-07-23 11:46] LABS: Glucose,Whole Blood 111 mg/dL (75-99)
[2021-07-23 13:43] VITALS: BP 168/78; PULSE 60; TEMP 97.6
--- NOTE | 2021-07-23 14:49 | P.PN ---
Subjective Progress Note Date: 07/23/21 Metabolic encephalopathy secondary to drug overdose 70-year-old female patient, who is coming into the emergency department because of altered mentation. The patient was quite agitated. The patient was found to be restless and screaming at home and quite agitated. Her neighbors called EMS and the patient was brought into the hospital. EMS found the patient in apartment covered with diarrhea and this was involving the entire body including the face. Her blood sugar was normal on the scene. No neck stiffness. Hemodynamically stable. She has multiple comorbidities. She is morbidly obese and she suffers from chronic pain and she has back pain due to degenerative arthritis and bulging this in addition to fibromyalgia and she has a positive TANIYA and has not had the typical lupus symptoms. Other comorbid conditions include obstructive sleep apnea, nontolerant to CPAP therapy, hypertension and hyperlipidemia diabetes mellitus and substance abuse. According to the family, this type of reaction happens to her when she takes methamphetamine, and she has had similar reactions in the past. Her last normal state was around 2 days ago and at that time the patient was walking and talking and there are verbalizing appropriately. The patient came into the emergency and pulmonary workup showed a urine drug screen that was positive for amphetamine, methamphetamine, marijuana, and opiates. Alcohol was nondetected and was less than 10. Her CAT scan of the brain showed mild to moderate diffuse cerebral atrophy without any acute abnormalities. White cell count was 20.7. She was in acute kidney injury with a creatinine of 1.66 with a BMI of 27 and a sodium level of 144. LFTs were within normal limits. CPK was mildly elevated at 549. Coreg 19 testing was negative. UA was negative. CAT scan of the abdomen and pelvis was negative. Chest x-ray was negative. The patient is currently on room air oxygen. She with rash and she was moving all 4 extremities and she will try to jump out of bed. Upon repeated stimulation, I was able to do some limited communication with her. She was able to tell me her name and nothing more than that. She gets quite agitated and she is currently in 4. restraints. In the emergency, she was given a total of 6 mg of Ativan without much of an improvement. No neck stiffness. No head trauma.. She is hemodynamically stable. 28 2020, the patient is being seen for a follow-up. As mentioned earlier, the patient was suspected to have a methamphetamine overdose or toxicity. Her presentation was typical as the patient was having acute delirium/psychosis-type of picture. The patient came in to the ICU. She remains quite agitated despite being on Precedex0 is still having episodes of 0.5 mcg/kg/h. The patient was also given Haldol and I think the estimated dose of Haldol was in the order of 10 mg overnight. This morning, the patient is quite sedated. No agitation. No seizure activity. EEG was done and showed no epileptic focus in this patient. Neck is not stiff. She is afebrile. Meanwhile, she has developed a mild degree of rhabdomyolysis. CPK level is up to 2500 and the patient has a anion gap metabolic acidosis. Serum bicarbonate dropped down to 8 and the patient's anion gap is currently at 21. Renal function is improved in the creatinine is at 1.1. LDH level was 1359 with a CRP level of 0.8.9. The patient is hemodynamically stable. She was given a total of 100 mEq of sodium bicarb IV push and currently she is on a bicarb drip which is running at the rate of 150 mL an hour. She is withdrawing to painful stimulation all 4 extremities. Otherwise she is in under the effect of Haldol and she is quite sedated at this point in time. No yelling. No agitation. No thrashing activity. Urine output is in order of 100 mL an hour. She is currently on room air oxygen. On 07/21/2021 patient seen in follow-up in intensive care unit, she is more awake today, and less confused, she was able to tell me her full name, and she knew she was at [facility], she could not tell the month or the year, but she knew the president. She denied using methamphetamine, she denies any illicit drugs with the exception of marijuana, which she uses on a regular basis. She stated that she resides alone, her son does do methamphetamine, however he does not live with her and she is not sure how she could have had positive methamphetamine in her drug screen. Nevertheless clinically she seems to be much improved, no agitation, she is quite pleasant on today's exam, very cooperative. She is breathing comfortably, she denies any chest pain, denies any discomfort. Vital signs are stable, room air pulse ox is 90-91%, she is afebrile, hemodynamically she is stable. She did have a lumbar puncture y esterday, and CSF fluid showed large amount of red blood cells, and 56 of nucleated cells, glucose was 165, and a LP fluid was bloody. CSF culture has shown no organisms thus far. Urine culture has shown no organisms. She remains on acyclovir, meropenem and vancomycin, ID service is following. Brain CT was a did showing subtle small subdural hematoma along the left tentorium, and MRI without contrast was recommended for confirmation, there was no additional areas suspicious for acute intracranial hemorrhage. Hemodynamically patient is stable, sinus mechanism with some PACs, with a rate of 87 BPM, blood pressure is stable. Patient is receiving D5W with 3 A of bicarbonate. Also remains on Precedex at 0.5 mics per kilo per minute, has received when necessary doses of Haldol for episodes of agitation. No nausea vomiting or diarrhea, Paulino catheter is in place, and patient is making 30-50 ML of urine per hour, she has remained nothing by mouth, however she is feeling thirsty and she is asking for water. Today's labs have been reviewed, her white blood cell count is 7.8, hemoglobin is 10.4, platelet count is 286, sodium is 147, potassium is 3.1, chloride is 110, CO2 34, BUN is 24, creatinine 0.65, ammonia level was less than 9, CK was 2175 The patient is seen today 07/22/2021 follow-up in the intensive care unit. She is currently resting flat in bed. Awake and alert in no acute distress. Denies any shortness of breath, cough or congestion. Denies any headache. Denies any visual disturbances. No dizziness or lightheadedness. She continues to maintain good O2 saturations in the 90s on room air. His x-ray reveals some mild density in the right medial lung base with left lower lobe atelectasis. MRI of the brain revealed no suspicious changes to suggest acute or subacute hemorrhage. Some mild bilateral mastoiditis. Cerebral spinal fluid was traumatic and inconclusive. White count 7.5. Hemoglobin 10.1. Platelets 267. Sodium 136. Potassium 2.6. Creatinine 0.44. C-reactive protein 4.6. She remains on acyclovir, meropenem and I mean. She has been calm and cooperative. Off Precedex. No Haldol required. On today's evaluation of 07/23/2021, the patient is being seen in follow-up. The patient has been chest without evidence of care unit. Neuro status is stable. She was taken off antibiotics. She was taken off acyclovir years. She was taken off meropenem. She is currently on room air oxygen. She is hemodynamic is stable. Her presentation was related to methamphetamine toxicity. Pulmonary critical care services we'll sign off. Objective - Vital Signs Vital signs: Vital Signs Temp 97.6 F 07/23/21 13:41 Pulse 60 07/23/21 13:41 Resp 16 07/23/21 13:41 BP 168/78 07/23/21 13:41 Pulse Ox 96 07/23/21 13:41 Intake & Output 07/22/21 07/23/21 07/23/21 18:59 06:59 18:59 Intake Total 550 472 Output Total 200 Balance 350 472 Intake: IV 150 Dextrose 5% in Water 1, 50 000 ml @ 150 mls/hr IV . Q7H40M DIMA with Sodium Bicarb (1 Meq/ml) 150 ml Rx#:[id number] Meropenem 1 gm In Sodium 100 Chloride 0.9% 100 ml @ 33 .3 mls/hr IVPB Q8HR DIMA Rx#:[id number] Oral 400 472 Output: Urine 200 Other: Voiding Method Toilet Toilet # Voids 0 # Bowel Movements 1 - Exam GENERAL: The patient is lying down alert and oriented 3 Head exam was generally normal. There was no scleral icterus or corneal arcus. Mucous membranes were moist. HENT: Supple neck. No nuchal rigidity. CHEST: Could not assess because of patient condition. Lungs were clear to auscultation and percussion, and with normal diaphragmatic excursion. No wheezes or rales were noted. Cardiac exam revealed the PMI to be normally situated and sized. The rhythm was regular and no extrasystoles were noted during several minutes of auscultation. The first and second heart sounds were normal and physiologic splitting of the second heart sound was noted. There were no murmurs, rubs, clicks, or gallops. Abdominal exam revealed normal bowel sounds. The abdomen was soft, non-tender, and without masses, organomegaly, or appreciable enlargement of the abdominal aorta. Examination of the extremities revealed easily palpable radial, femoral and pedal pulses. There was no cyanosis, clubbing or edema. Examination of the skin revealed no evidence of significant rashes, suspicious appearing nevi or other concerning lesions. - Labs CBC & Chem 7: 07/22/21 04:34 07/22/21 10:18 Labs: Abnormal Lab Results - Last 24 Hours (Table) 07/22/21 07/22/21 07/23/21 Range/Units 16:52 21:02 07:11 POC Glucose (mg/dL) 133 H 138 H 161 H (75-99) mg/dL 07/23/21 Range/Units 11:43 POC Glucose (mg/dL) 111 H (75-99) mg/dL Microbiology - Last 24 Hours (Table) 07/20/21 19:10 CSF Gram Stain - Preliminary Cerebral Spinal Fluid CSF Culture - Preliminary Assessment and Plan Plan: 1 acute delirium/severe agitation, could be related to methamphetamine reaction/overdose. Clinically recovered and the patient is back to her baseline 2 polysubstance abuse and the dressing was positive for amphetamine, methamphetamine, marijuana and opiates 3 acute kidney injury secondary to above, improving and the creatinine is down to 0.4 4 obstructive sleep apnea, per history and the patient has not taken any form of CPAP therapy 5 hypertension 6 hyperlipidemia 7 diabetes mellitus 8 fibromyalgia 9 chronic pain with degenerative arthritis and disc disease 10 acute leukocytosis, improving 11 positive TANIYA without indication of underlying lupus 12 anion gap metabolic acidosis , recovered 13 Rhabdo secondary to above,recovered Plan Neurologically recovered Off antibiotics Electrolytes all normal No active pulmonary or critical care issues and we'll sign off case Check lactic acid level
[2021-07-23 16:36] LABS: Glucose,Whole Blood 114 mg/dL (75-99)
--- NOTE | 2021-07-23 16:56 | PN ---
PROGRESS NOTE DATE OF SERVICE: 07/23/2021 REASON FOR FOLLOWUP: Possible pneumonia. INTERVAL HISTORY: Patient is afebrile. The patient is currently breathing comfortably. The patient denies having any chest pain or shortness of breath. Minimal cough. No abdominal pain. No diarrhea. Wants to go home. PHYSICAL EXAMINATION: Blood pressure 116/78 with a pulse of 60, temperature is 97.6. She is 96% on room air. General description is an elderly female up in the chair in no distress. Respiratory system: Unlabored breathing, decreased breath sounds in the base. No wheeze. Heart S1, S2. Regular rate and rhythm. Abdomen soft, no tenderness. LABS: White count is normal 7.5. Cultures have been negative. DIAGNOSTIC IMPRESSION AND PLAN: Patient admitted to the hospital with mental status changes in this patient who is status post LP which was traumatic. Culture has been negative. Overall improvement. Can finish a short course of oral Levaquin as we do not have Avelox in this facility and cannot use Augmentin because of [facility] [employer] and close outpatient followup. MMODL / IJN: [id number] /
--- NOTE | 2021-07-23 17:26 | P.PN ---
Subjective Progress Note Date: 07/23/21 The patient is seen at side of bed and stated she is drastically better and was hoping to leave today. She denies of any further neurological deficits. She denies of headaches, nausea or vomiting. Objective - Vital Signs Vital signs: Vital Signs Temp 97.6 F 07/23/21 13:41 Pulse 60 07/23/21 13:41 Resp 16 07/23/21 13:41 BP 168/78 07/23/21 13:41 Pulse Ox 96 07/23/21 13:41 Intake & Output 07/22/21 07/23/21 07/23/21 18:59 06:59 18:59 Intake Total 550 472 Output Total 200 Balance 350 472 Intake: IV 150 Dextrose 5% in Water 1, 50 000 ml @ 150 mls/hr IV . Q7H40M DIMA with Sodium Bicarb (1 Meq/ml) 150 ml Rx#:[id number] Meropenem 1 gm In Sodium 100 Chloride 0.9% 100 ml @ 33 .3 mls/hr IVPB Q8HR DIMA Rx#:[id number] Oral 400 472 Output: Urine 200 Other: Voiding Method Toilet Toilet # Voids 0 # Bowel Movements 1 - Exam GENERAL: The patient is lying in bed and does not seem in acute distress HENT: Supple neck. No nuchal rigidity. NEUROLOGICAL: Higher mental function: The patient is awake, alert, oriented to self, place and time. Patient is following simple commands. No aphasia and no neglect. Cranial nerves: The pupils are round, equal and reactive to light and accommodation. Visual powers are full to confrontation throughout. Extraocular movement is intact no nystagmus is noted. Facial sensation is normal to touch throughout. The facial strength is normal throughout. Hearing is normal bilaterally to hand rub. Tongue is midline and moved [id number] without any difficulty. No dysarthria is noted. Shoulder shrug is normal bilaterally. Motor: The strength is 5 over 5 throughout. Normal tone and bulk. Cerebellum: Normal finger to nosebilaterally. Sensation: Sensation is normal to touch throughout. Reflexes (right/left): 2+ throughout. Plantars are downgoing bilaterally. WORK-UP: CT of the head is reported as no acute intracranial hemorrhage or midline shift. Suboptimal study. There is mild to moderate diffuse cerebral atrophy greatest over bilateral frontal and temporal lobe. Repeat CT of the head is reported as supple small subdural hematoma along the left tentorium may be present. This could be confirmed with MRI without contrast. No additional areas suspicious for acute intracranial hemorrhage. MRI the brain without is reported as no suspicious changes to suggest acute or subacute hemorrhage. Note is made of mild bilateral mastoiditis. CSF: Color is red, red blood cell is 99,500, CSF total nucleated cells is 56, basophils is 1, CSF mononuclear white blood cell is 22, CSF polynuclear white blood cell was 77, CSF red blood cell is 100 and the CSF glucose is 165. So this is a traumatic tap and that with correction the total nucleated cells will be 0. Routine EEG ON 07/20/2021: Is abnormal. The background slowing is suggestive of moderate to severe encephalopathy. There are no focal slowing, epileptiform discharges or seizure on the EEG. AST of 33 and ALT of 23, ammonia is 28, CK levels 549 Nunn virus PCR was not detected. Urine toxicology screen is positive for opiates, amphetamine, methamphetamine, benzoyl, marijuana. Otherwise the rest of basic urine drug screen was not detected in the serum alcohol is the less than 10 Urinalysis it cloudy, nitrate was negative, leukocyte esterase negative, urine white blood cells 20 and my humble opinion this is not suggestive of urinary tract infection. Vitamin B12 is 186 which is considered deficient Serum folate is 13.9 TSH is 3.550. AST of 33 and ALT of 23 Ammonia level is 28. - Labs CBC & Chem 7: 07/22/21 04:34 07/22/21 10:18 Labs: Abnormal Lab Results - Last 24 Hours (Table) 07/22/21 07/23/21 07/23/21 Range/Units 21:02 07:11 11:43 POC Glucose (mg/dL) 138 H 161 H 111 H (75-99) mg/dL 07/23/21 Range/Units 16:35 POC Glucose (mg/dL) 114 H (75-99) mg/dL Microbiology - Last 24 Hours (Table) 07/20/21 19:10 CSF Gram Stain - Preliminary Cerebral Spinal Fluid CSF Culture - Preliminary Assessment and Plan Assessment: * Altered mental status with severe agitation Likely due to toxic encephalopathy (polysubstance use. Per ED, the son notified them that this happens whenever patient uses meth). CSF is traumatic and 56 nucleated cells (corrected nuceated cell is 0 since this is traumatic tap). Patient denies of headache, nausea, vomiting or fever prior to presentation. -----Her mentation is improved * Vitamin B12 is 186 which is considered deficient * Leukocytosis--trending down * Polydrug use (UDS is positive for opiates, amphetamine, methamphetamine, benzo, marijuana). * Acute kidney insufficiency--trending down * History of meningitis and was in a coma last report for 1 week and that was possibly in 2013 * Diabetes mellitus and currently her blood sugar is slight elevated * Hypertension * Hyperlipidemia * History of fibromyalgia Plan: * No bleed per MRI Brain and clinically patient has no headaches, nausea or vomiting and no focal deficit for repeat imaging. * Continue vitamin B12 1000mcg daily (since is Vitamin B12 deficient). * Continue thiamine 100 mg daily PO. * We'll defer the rest of the medical management to the primary. * Patient was counseled on cessation of illicit drug use. There is no further neurological work-up. Neurology will sign off. Please reconsult if needed. Buck Washington M.D. Neuro-hospitalist Time with Patient: Less than 30
== END 2021-07-23 18:55 | disposition home or self-care (01) | DRG 917 ==
LOC: EC 07:28 → 3SCARD 11:47 → 2SICU 16:42 → 4SSUR 07-22 17:20
PROVIDERS: ADMIT Internal Medicine; ATTEND Internal Medicine
PROC: 009U3ZX Drainage of Spinal Canal, Percutaneous Approach, Diagnostic (ICD-10-PCS; principal; 2021-07-20)
DX: T43.621A Poisoning by amphetamines, accidental (unintentional), initial encounter (principal); G92 Toxic encephalopathy; E87.0 Hyperosmolality and hypernatremia; E87.2 Acidosis; M62.82 Rhabdomyolysis; N17.9 Acute kidney failure, unspecified; E11.9 Type 2 diabetes mellitus without complications; E78.5 Hyperlipidemia, unspecified; E53.8 Deficiency of other specified B group vitamins; F15.10 Other stimulant abuse, uncomplicated; I10 Essential (primary) hypertension; D72.829 Elevated white blood cell count, unspecified; F32.9 Major depressive disorder, single episode, unspecified; G47.33 Obstructive sleep apnea (adult) (pediatric); J45.909 Unspecified asthma, uncomplicated; M47.9 Spondylosis, unspecified; G89.29 Other chronic pain; M19.90 Unspecified osteoarthritis, unspecified site; J30.9 Allergic rhinitis, unspecified; M79.7 Fibromyalgia; E66.01 Morbid (severe) obesity due to excess calories; Z79.84 Long term (current) use of oral hypoglycemic drugs; Z79.899 Other long term (current) drug therapy; Z88.1 Allergy status to other antibiotic agents; Z88.2 Allergy status to sulfonamides; Z90.49 Acquired absence of other specified parts of digestive tract; Z98.890 Other specified postprocedural states; Z98.51 Tubal ligation status; Z87.891 Personal history of nicotine dependence; Z78.1 Physical restraint status; Z86.61 Personal history of infections of the central nervous system; Z68.27 Body mass index [BMI] 27.0-27.9, adult
CPT/HCPCS: 36410; 36415; 70450; 70551; 71046; 74022; 74176; 76937; 80048; 80053; 80076; 80306; 80320; 81001; 82140; 82164; 82550; 82607; 82746; 82945; 83605; 83615; 83735; 83873; 84132; 84145; 84157; 84311; 84443; 85025; 85027; 85652; 86140; 86592; 87070; 87086; 87205; 87252; 87496; 87498; 87529; 87635; 87798; 87801; 89050; 93005; 95819; 96361; 96374; 96375; 99291

== ENCOUNTER 2021-10-06 15:15 | Inpatient (IN) | payer MEDICARE, OTHER ==
[2021-10-06] MEDS ORDERED: LORazepam 2 MG/ML INJ IV STA ×2 (15:53→16:38)
[2021-10-06 16:17] LABS: Anisocytosis Slight; Basophils # (A) 0.1 k/uL (0-0.2); Basophils % (A) 1 %; Eosinophils # (A) 0.5 k/uL (0-0.7); Eosinophils % (A) 3 %; HCT 45.7 % (34.0-46.0); HGB 14.8 gm/dL (11.4-16.0); Lymphocytes # (A) 6.2 k/uL (1.0-4.8); Lymphocytes % (A) 38 %; MCH 26.2 pg (25.0-35.0); MCHC 32.5 g/dL (31.0-37.0); MCV 80.8 fL (80.0-100.0); Mean Platelet Volume 7.8; Microcytosis Slight; Monocytes # (A) 0.6 k/uL (0-1.0); Monocytes % (A) 4 %; Neutrophils # (A) 8.4 k/uL (1.3-7.7); Neutrophils % (A) 52 %; Platelet Count 509 k/uL (150-450); RBC 5.66 m/uL (3.80-5.40); RDW 17.9 % (11.5-15.5); WBC 16.1 k/uL (3.8-10.6)
--- NOTE | 2021-10-06 16:17 | ED ---
SOB HPI - General Chief Complaint: Shortness of Breath Stated Complaint: SOB Source: patient Mode of arrival: wheelchair Limitations: no limitations - History of Present Illness Initial Comments: 71 year old female presents with history of asthma, dm, methamphetamine abuse since emergency department with reported shortness of breath. States that her symptoms started earlier today. She had sudden onset of shortness of breath with "lung pain". States that her asthma is usually mild. Does have a nebulizer at home however never uses it. Did not attempt to use it today. St ates that it hurts to take a deep breath. Denies history of DVT or PE. No calf pain or swelling. Denies previous history of cardiac disease. Denies ripping or tearing sensation to her back. Does admit to numbness and tingling in both hands and both feet. 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 Has never been on life support for her breathing. Denies any fevers, chills or cough. Cannot answer whether she is vaccinated can scope. Remainder of HPI is limited as the patient is a very poor historian and is extremely anxious during initial exam - Related Data Home Medications Medication Instructions Recorded Confirmed Ibuprofen [Motrin] 800 mg PO TID-W/MEALS PRN 06/02/14 10/06/21 metFORMIN HCL [Glucophage] 1,000 mg PO BID-W/MEALS 06/02/14 10/06/21 traMADol HCl [Ultram] 100 mg PO BID PRN 11/04/15 10/06/21 Baclofen 10 mg PO TID PRN 09/14/16 10/06/21 sitaGLIPtin [Januvia] 100 mg PO DAILY 03/04/19 10/06/21 Spironolactone-Hctz 25-25Mg 1 tab PO DAILY 07/21/20 10/06/21 [Aldactazide 25-25 MG] rOPINIRole HCL [Requip] 2 mg PO HS 07/21/20 10/06/21 Losartan Potassium 100 mg PO DAILY 10/06/21 10/06/21 Previous Rx's Medication Instructions Recorded atenoloL [Tenormin] 50 mg PO DAILY #30 tab 07/23/21 Allergies Allergy/AdvReac Type Severity Reaction Status Date / Time cephalexin Allergy Anaphylaxis Verified 10/06/21 17:35 cephalexin monohydrate Allergy Anaphylaxis Verified 10/06/21 17:35 [From Keflex] Sulfa (Sulfonamide Allergy Rash/Hives Verified 10/06/21 17:35 Antibiotics) Review of Systems ROS Statement: Those systems with pertinent positive or pertinent negative responses have been documented in the HPI. ROS Other: All systems not noted in ROS Statement are negative. 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 Poly substance abuse 07/19/21 admitted for Acute delirium History of Any Multi-Drug Resistant Organisms: None Reported Past Surgical History: Cholecystectomy, Hernia Repair, Orthopedic Surgery, Tonsillectomy, Tubal Ligation Additional Past Surgical History / Comment(s): LEFT KNEE ARTHROSCOPY, BMT AND MYRINGOPLASTY, umbilical hernia repair Past Anesthesia/Blood Transfusion Reactions: No Reported Reaction Additional Past Anesthesia/Blood Transfusion Reaction / Comment(s): STATES AFTER LAST EAR SX (11/2013) HAD SORE MUSCLES AND WAS WEAK FOR 3-4 DAYS Past Psychological History: Unable to Obtain Smoking Status: Former smoker Past Alcohol Use History: None Reported Past Drug Use History: Marijuana, Methamphetamine - Past Family History Sister(s) Family Medical History: Cancer Brother(s) Family Medical History: Cancer General Exam Limitations: no limitations Course Vital Signs 10/06/21 10/06/21 10/06/21 15:25 15:56 17:22 Temperature 97.7 F Pulse Rate 127 H 124 H Respiratory 26 H 22 16 Rate Blood Pressure 148/104 150/83 O2 Sat by Pulse 100 98 Oximetry Medical Decision Making - Medical Decision Making Parietal patient's placed into room 5. A thorough history and physical exam was performed. I did attempt to place her on oxygen however she is to anxious. IV is established and she is given 1 mg of Ativan. Laboratory studies are conducted. Chest x-rays performed. Lab studies remarkable for a white count of 16.1. D-dimer 4.16. Lactic acid 3.3. Troponin 0.146. Covid not detected. Chest x-ray demonstrates no acute process. Due to elevated troponin and d-dimer patient sent for a CT of her chest which does not demonstrate any PE. CT the brain is also performed as the patient is a very poor historian and need for anticoagulation. CT demonstrates no acute intracranial abnormality. Patient is heparinized and will be admitted to Dr. Rodríguez. Patient awaiting a bed on the floor - Lab Data Result diagrams: 10/06/21 15:56 10/06/21 15:56 Lab Results 10/06/21 10/06/21 10/06/21 Range/Units 15:56 15:56 15:56 WBC 16.1 H (3.8-10.6) k/uL RBC 5.66 H (3.80-5.40) m/uL Hgb 14.8 (11.4-16.0) gm/dL Hct 45.7 (34.0-46.0) % MCV 80.8 (80.0-100.0) fL MCH 26.2 (25.0-35.0) pg MCHC 32.5 (31.0-37.0) g/dL RDW 17.9 H (11.5-15.5) % Plt Count 509 H (150-450) k/uL MPV 7.8 Neutrophils % 52 % Lymphocytes % 38 % Monocytes % 4 % Eosinophils % 3 % Basophils % 1 % Neutrophils # 8.4 H (1.3-7.7) k/uL Lymphocytes # 6.2 H (1.0-4.8) k/uL Monocytes # 0.6 (0-1.0) k/uL Eosinophils # 0.5 (0-0.7) k/uL Basophils # 0.1 (0-0.2) k/uL Anisocytosis Slight Microcytosis Slight PT 10.8 (9.0-12.0) sec INR 1.0 (<1.2) APTT 26.2 (22.0-30.0) sec D-Dimer 4.16 H (<0.60) mg/L FEU Sodium 134 L (137-145) mmol/L Potassium 4.1 (3.5-5.1) mmol/L Chloride 96 L (98-107) mmol/L Carbon Dioxide 16 L (22-30) mmol/L Anion Gap 22 mmol/L BUN 16 (7-17) mg/dL Creatinine 0.90 (0.52-1.04) mg/dL Est GFR (CKD-EPI)AfAm 75 (>60 ml/min/1.73 sqM) Est GFR (CKD-EPI)NonAf 65 (>60 ml/min/1.73 sqM) Glucose 182 H (74-99) mg/dL Plasma Lactic Acid Angel (0.7-2.0) mmol/L Calcium 11.0 H (8.4-10.2) mg/dL Magnesium 1.6 (1.6-2.3) mg/dL Total Bilirubin 0.5 (0.2-1.3) mg/dL AST 23 (14-36) U/L ALT 18 (4-34) U/L Alkaline Phosphatase 112 (38-126) U/L Troponin I (0.000-0.034) ng/mL NT-Pro-B Natriuret Pep pg/mL Total Protein 8.9 H (6.3-8.2) g/dL Albumin 5.1 H (3.5-5.0) g/dL Coronavirus (PCR) (Not Detectd) 10/06/21 10/06/21 10/06/21 Range/Units 15:56 15:56 15:56 WBC (3.8-10.6) k/uL RBC (3.80-5.40) m/uL Hgb (11.4-16.0) gm/dL Hct (34.0-46.0) % MCV (80.0-100.0) fL MCH (25.0-35.0) pg MCHC (31.0-37.0) g/dL RDW (11.5-15.5) % Plt Count (150-450) k/uL MPV Neutrophils % % Lymphocytes % % Monocytes % % Eosinophils % % Basophils % % Neutrophils # (1.3-7.7) k/uL Lymphocytes # (1.0-4.8) k/uL Monocytes # (0-1.0) k/uL Eosinophils # (0-0.7) k/uL Basophils # (0-0.2) k/uL Anisocytosis Microcytosis PT (9.0-12.0) sec INR (<1.2) APTT (22.0-30.0) sec D-Dimer (<0.60) mg/L FEU Sodium (137-145) mmol/L Potassium (3.5-5.1) mmol/L Chloride (98-107) mmol/L Carbon Dioxide (22-30) mmol/L Anion Gap mmol/L BUN (7-17) mg/dL Creatinine (0.52-1.04) mg/dL Est GFR (CKD-EPI)AfAm (>60 ml/min/1.73 sqM) Est GFR (CKD-EPI)NonAf (>60 ml/min/1.73 sqM) Glucose (74-99) mg/dL Plasma Lactic Acid Angel 3.3 H* (0.7-2.0) mmol/L Calcium (8.4-10.2) mg/dL Magnesium (1.6-2.3) mg/dL Total Bilirubin (0.2-1.3) mg/dL AST (14-36) U/L ALT (4-34) U/L Alkaline Phosphatase (38-126) U/L Troponin I 0.146 H* (0.000-0.034) ng/mL NT-Pro-B Natriuret Pep 544 pg/mL Total Protein (6.3-8.2) g/dL Albumin (3.5-5.0) g/dL Coronavirus (PCR) (Not Detectd) 10/06/21 Range/Units 15:59 WBC (3.8-10.6) k/uL RBC (3.80-5.40) m/uL Hgb (11.4-16.0) gm/dL Hct (34.0-46.0) % MCV (80.0-100.0) fL MCH (25.0-35.0) pg MCHC (31.0-37.0) g/dL RDW (11.5-15.5) % Plt Count (150-450) k/uL MPV Neutrophils % % Lymphocytes % % Monocytes % % Eosinophils % % Basophils % % Neutrophils # (1.3-7.7) k/uL Lymphocytes # (1.0-4.8) k/uL Monocytes # (0-1.0) k/uL Eosinophils # (0-0.7) k/uL Basophils # (0-0.2) k/uL Anisocytosis Microcytosis PT (9.0-12.0) sec INR (<1.2) APTT (22.0-30.0) sec D-Dimer (<0.60) mg/L FEU Sodium (137-145) mmol/L Potassium (3.5-5.1) mmol/L Chloride (98-107) mmol/L Carbon Dioxide (22-30) mmol/L Anion Gap mmol/L BUN (7-17) mg/dL Creatinine (0.52-1.04) mg/dL Est GFR (CKD-EPI)AfAm (>60 ml/min/1.73 sqM) Est GFR (CKD-EPI)NonAf (>60 ml/min/1.73 sqM) Glucose (74-99) mg/dL Plasma Lactic Acid Angel (0.7-2.0) mmol/L Calcium (8.4-10.2) mg/dL Magnesium (1.6-2.3) mg/dL Total Bilirubin (0.2-1.3) mg/dL AST (14-36) U/L ALT (4-34) U/L Alkaline Phosphatase (38-126) U/L Troponin I (0.000-0.034) ng/mL NT-Pro-B Natriuret Pep pg/mL Total Protein (6.3-8.2) g/dL Albumin (3.5-5.0) g/dL Coronavirus (PCR) Not Detected (Not Detectd) - EKG Data EKG Comments: EKG demonstrates significant baseline artifact. Left bundle branch block present. Some PVCs. Repeat EKG pending EKG at 1724 demonstrates a sinus tachycardia with a ventricular rate of 119. OR interval 126. QRS 96. QTC of 497. There is a left bundle branch block. No acute ST segment elevations or positive sgarbossa criteria Disposition Clinical Impression: Chest pain, NSTEMI (non-ST elevated myocardial infarction), Leukocytosis, Tachycardia, Left bundle branch block, Respiratory insufficiency Disposition: ADMITTED IP TO THIS [facility] Condition: Serious Is patient prescribed a controlled substance at d/c from ED?: No Referrals: Surinder Rodríguez MD [Primary Care Provider] - 1-2 days Decision to Admit Reason: Admit from EC Decision Date: 10/06/21 Decision Time: 17:36
[2021-10-06 16:28] LABS: Albumin 5.1 g/dL (3.5-5.0); Magnesium 1.6 mg/dL (1.6-2.3); Potassium 4.1 mmol/L (3.5-5.1); Total Bilirubin 0.5 mg/dL (0.2-1.3); Total Protein 8.9 g/dL (6.3-8.2)
[2021-10-06 16:36] LABS: Partial Thromboplastin Time 26.2 sec (22.0-30.0); Prothrombin Time 10.8 sec (9.0-12.0)
[2021-10-06] MEDS ORDERED: SODIUM CHLORIDE 0.9% 1,000 ML IV ONE (16:38)
--- NOTE | 2021-10-06 16:43 | XR ---
EXAMINATION TYPE: XR chest 1V portable DATE OF EXAM: 10/06/2021 COMPARISON: 07/22/2021 HISTORY: Shortness of breath TECHNIQUE: Single frontal view of the chest is obtained. FINDINGS: There is no focal air space opacity, pleural effusion, or pneumothorax seen. The cardiac silhouette size is within normal limits. The osseous structures are intact. IMPRESSION: No acute process.
--- NOTE | 2021-10-06 17:12 | CT ---
EXAM: CT brain wo con CLINICAL HISTORY: Weakness. COMPARISON: 07/21/2021 TECHNIQUE: Contiguous axial noncontrast images of the brain were obtained. Coronal and sagittal refor mats were generated and reviewed. Automated dose control was used for this exam. FINDINGS: There is no evidence for intracranial hemorrhage, mass effect or midline shift. The white matter is g rossly preserved. Ventricular size and configuration is within normal limits for degree of parenchymal volume. The paranasal sinuses are clear. The mastoid air cells are clear. No evidence for calvarial fracture. IMPRESSION: No acute intracranial abnormality.
--- NOTE | 2021-10-06 17:19 | CT ---
EXAMINATION TYPE: CT chest angio for PE DATE OF EXAM: 10/06/2021 COMPARISON: Same-day radiographs. HISTORY: chest pain, SOB CT DLP: 577.9 mGycm Automated exposure control for dose reduction was used. CONTRAST: CT Chest for pulmonary embolism performed with with IV Contrast, patient injected with 100 mL of Isov ue 370. FINDINGS: LUNGS: There are mild dependent opacities. There is no concerning parenchymal mass or nodule identifi ed. There is no pleural effusion or pneumothorax seen. The tracheobronchial tree is patent. MEDIASTINUM: There is satisfactory enhancement of the pulmonary artery and its branches, there is no CT evidence for pulmonary embolism. There are no greater than 1 cm hilar or mediastinal lymph nodes. No pericardial effusion is seen. OTHER: There is a 1.7 cm right thyroid nodule. Additional few small bilateral thyroid nodules also s een. No additional significant abnormality is seen. Cholecystectomy seen. Moderate to severe thoracic spondylosis with multilevel bridging anterior syndesmophytes. IMPRESSION: No acute PE. Mild dependent opacities, compatible with atelectasis. Multi nodular thyroid.
[2021-10-06] MEDS ORDERED: HEPARIN SODIUM 1,000 UN/ML (10ML VL) IV ONE (17:27)
[2021-10-06] MEDS ORDERED: HEPARIN SODIUM 1,000 UN/ML (10ML VL) IV PRN (17:27)
[2021-10-06] MEDS ORDERED: HEPARIN SOD,PORK IN 0.45% NACL 25,000 UNIT in 0.45% NACL 1 250ML.BAG IV SCH (17:30)
[2021-10-06] MEDS ORDERED: NALOXONE 0.4 MG/ML 1 ML VIAL IV PRN (17:36)
[2021-10-06] MEDS ORDERED: ACETAMINOPHEN TAB 500 MG TAB PO PRN (20:07)
[2021-10-06] MEDS: traMADol 50 MG TAB PO PRN (20:13)
[2021-10-06] MEDS: INSULIN ASPART (NovoLOG) 100 UNIT/ML VIAL SQ SCH (20:24)
[2021-10-06 20:25] LABS: Glucose,Whole Blood 177 mg/dL (75-99)
[2021-10-06] MEDS: METOPROLOL TARTRATE 25 MG TAB PO SCH (21:51)
[2021-10-06 22:43] LABS: Appearance,Urine Clear (Clear); Bilirubin,Urine Negative (Negative); Blood,Urine Negative (Negative); Color,Urine Yellow; Glucose,Urine (UA) Negative (Negative); Ketones,Urine Negative (Negative); Leukocyte Esterase,Urine Negative (Negative); Mucus,Urine Rare /hpf; Nitrite,Urine Negative (Negative); PH, Urine 6.5 (5.0-8.0); Protein,Urine 1+ (Negative); RBC,Urine 2 /hpf (0-5); Specific Gravity,Urine >1.050 (1.001-1.035); Squamous Epithelial Cell,Urine 2 /hpf (0-4); Urobilinogen,Urine <2.0 mg/dL (<2.0); WBC,Urine <1 /hpf (0-5)
[2021-10-06 22:49] LABS: Amphetamine Screen,Urine Not Detected (NotDetected); Barbiturate Screen,Urine Not Detected (NotDetected); Benzodiazepines Screen,Urine Detected (NotDetected); Cocaine Screen,Urine Not Detected (NotDetected); Methadone Screen, Urine Not Detected (NotDetected); Opiate Screen,Urine Not Detected (NotDetected); Oxycodone Screen, Urine Not Detected (NotDetected); Phencyclidine Screen,Urine Not Detected (NotDetected); Tricyclic Antidepressant,Urine Not Detected (NotDetected); Urn Cannabinoid Scrn Detected (NotDetected)
[2021-10-07] MEDS: INSULIN ASPART (NovoLOG) 100 UNIT/ML VIAL SQ SCH ×4 (06:03→21:55)
[2021-10-07 06:04] LABS: Glucose,Whole Blood 131 mg/dL (75-99)
[2021-10-07] MEDS: LOSARTAN 50 MG TAB PO SCH (08:24)
[2021-10-07] MEDS: METOPROLOL TARTRATE 25 MG TAB PO SCH ×2 (08:24→20:23)
[2021-10-07] MEDS: SPIRONOLACTONE-HCTZ 25-25MG 1 EACH TAB PO SCH (08:24)
[2021-10-07] MEDS: traMADol 50 MG TAB PO PRN ×2 (08:24→21:03)
[2021-10-07] MEDS: ASPIRIN 81 MG PO SCH (08:24)
[2021-10-07] MEDS: BACLOFEN 10 MG TAB PO PRN (08:24)
[2021-10-07] MEDS: ATORVASTATIN 80 MG TAB PO SCH (08:25)
[2021-10-07 08:37] LABS: African American GFR (CKD) >90 (>60 ml/min/1.73 sqM); Anion Gap 10 mmol/L; Blood Urea Nitrogen 13 mg/dL (7-17); Calcium 9.2 mg/dL (8.4-10.2); Carbon Dioxide 22 mmol/L (22-30); Chloride 100 mmol/L (98-107); Glucose 143 mg/dL (74-99); Non-African American GFR(CKD) 88 (>60 ml/min/1.73 sqM); Partial Thromboplastin Time 44.2 sec (22.0-30.0); Potassium 4.6 mmol/L (3.5-5.1); Prothrombin Time 10.8 sec (9.0-12.0); Sodium 132 mmol/L (137-145)
[2021-10-07 08:48] LABS: Anisocytosis Slight; Basophils # (A) 0.1 k/uL (0-0.2); Basophils % (A) 1 %; Eosinophils # (A) 0.4 k/uL (0-0.7); Eosinophils % (A) 4 %; HCT 42.4 % (34.0-46.0); HGB 13.3 gm/dL (11.4-16.0); Hypochromasia Marked; Lymphocytes # (A) 3.4 k/uL (1.0-4.8); Lymphocytes % (A) 31 %; MCH 27.2 pg (25.0-35.0); MCHC 31.3 g/dL (31.0-37.0); Mean Platelet Volume 7.6; Monocytes # (A) 0.5 k/uL (0-1.0); Monocytes % (A) 5 %; Neutrophils # (A) 6.3 k/uL (1.3-7.7); Neutrophils % (A) 58 %; Platelet Count 376 k/uL (150-450); RBC 4.87 m/uL (3.80-5.40); RDW 17.7 % (11.5-15.5); WBC 10.9 k/uL (3.8-10.6)
[2021-10-07] MEDS ORDERED: atenoloL 50 MG TAB PO SCH (09:00)
[2021-10-07] MEDS ORDERED: ASPIRIN 325 MG TAB PO STA (09:05)
[2021-10-07] MEDS ORDERED: ALPRAZolam 0.25 MG TAB PO PRN (09:05)
[2021-10-07] MEDS ORDERED: ATORVASTATIN 80 MG TAB PO STA (09:05)
[2021-10-07] MEDS ORDERED: NITROGLYCERIN SL TABS 0.4 MG TAB SUBLINGUAL PRN (09:05)
[2021-10-07] MEDS ORDERED: ALPRAZolam 0.5 MG TAB PO PRN (09:05)
--- NOTE | 2021-10-07 09:06 | P.CRDCN ---
History of Present Illness History of present illness: HISTORY OF PRESENTING ILLNESS This is a pleasant 71-year-old female past medical history significant for hypertension, type 2 diabetes, hyperlipidemia, obstructive sleep apnea, Asthma, marijuana use, methamphetamine use and former nicotine dependence. 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 We have been asked to see in consultation for chest pain and elevated troponin. Patient presents emergency department with complaints of chest discomfort, she states it started yesterday. Located in the center of her chest. Non radiating. She states it is aggravated by taking a breath or activity. She believes it was a "lung pain". She states she took some cold medicine at home with no relief. She had associated diaphoresis and shortness of breath. She felt slightly lightheaded. She states that her symptoms occurred 3 times yesterday. Her symptoms have now resolved. She denies nausea, vomiting, dizziness, weakness, syncope. She denies symptoms of orthopnea or PND. She states she continues to smoke marijuana and use methamphetamines. She states she quit smoking 20 years ago. Family history includes mother had an [place], and her brothers both had MIs, one having CABG. DIAGNOSTICS EKG reveals sinus tachycardia, HR 119, left axis deviation, LVH, LBBB. Prior EKG with similar findings. Telemetry tracings indicate sinus mechanism HR 90s-low 100s Chest xray no acute cardiopulmonary process Laboratory reviewed, WBC 16, hemoglobin 14, platelets 5.9, d-dimer 4.16, Sodium 134, K 4.1, BUN 16, sCr 0.90, Mag 1.6, Trop 0.14, .49, 2.0, Pro BNP 544. Current home medications include atenolol 50 mg daily, Januvia, losartan 100mg daily, Requip, meformin, spironolactone -hctz 25-25mg REVIEW OF SYSTEMS At the time of my exam: CONSTITUTIONAL: Denies fever or chills. CARDIOVASCULAR: Denies chest pain, shortness of breath, orthopnea, PND or palpitations. RESPIRATORY: Denies cough. GASTROINTESTINAL: Denies abdominal pain, diarrhea, constipation, nausea or vomiting. MUSCULOSKELETAL: Denies myalgias. NEUROLOGIC: Denies numbness, tingling, headache or weakness. ENDOCRINE: Denies fatigue, weight change, polydipsia or polyurina. GENITOURINARY: Denies burning, hematuria or urgency with micturation. HEMATOLOGIC: Denies history of anemia or bleeding. PHYSICAL EXAMINATION Blood pressure 116/72, heart rate 97, afebrile, saturations greater than 92% on room air CONSTITUTIONAL: No apparent distress. HEENT: Head is normocephalic. Pupils are equal, round. Sclerae anicteric. Mucous membranes of the mouth are moist. No JVD. No carotid bruit. CHEST EXAMINATION: Lungs are clear to auscultation. No chest wall tenderness is noted on palpation or with deep breathing. HEART EXAMINATION: Regular rate and rhythm. S1, S2 heard. No murmurs, gallops or rub. ABDOMEN: Soft, nontender. Positive bowel sounds. EXTREMITIES: 2+ peripheral pulses, no lower extremity edema and no calf tenderness. SKIN: warm, dry NEUROLOGIC EXAMINATION: Patient is awake, alert and oriented x3. ASSESSMENT NSTEMI History of Hypertension Type 2 Diabetes History of Hyperlipidemia Former nicotine dependence Marijuana use Methamphetamine abuse Asthma Family history of CAD PLAN -Obtain 2D echocardiogram and doppler study to assess cardiac structure and function. -Start aspirin, statin -Continue losartan and metoprolol tartrate -Recommend cardiac catheterization, patient is agreeable. Plan for today with Dr. Lantigua -I have discussed the risks, benefits and alternative therapies for the above- mentioned procedure and for both sedation/analgesia as well as necessary blood product administration, if indicated, as they pertain to this patient. The patient has indicated understanding and acceptance of the risks and procedures discussed. Questions have been answered appropriately and she is agreeable to move forward with the above-stated procedure. -Further recommendations based on clinical course Thank you kindly for this consultation. Nurse Practitioner note has been reviewed, I agree with a documented findings and plan of care. Patient was seen and examined. 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 Poly substance abuse 07/19/21 admitted for Acute delirium History of Any Multi-Drug Resistant Organisms: None Reported Past Surgical History: Cholecystectomy, Hernia Repair, Orthopedic Surgery, Tonsillectomy, Tubal Ligation Additional Past Surgical History / Comment(s): LEFT KNEE ARTHROSCOPY, BMT AND MYRINGOPLASTY, umbilical hernia repair Past Anesthesia/Blood Transfusion Reactions: No Reported Reaction Additional Past Anesthesia/Blood Transfusion Reaction / Comment(s): STATES AFTER LAST EAR SX (11/2013) HAD SORE MUSCLES AND WAS WEAK FOR 3-4 DAYS Past Psychological History: Unable to Obtain Smoking Status: Former smoker Past Alcohol Use History: None Reported Additional Past Alcohol Use History / Comment(s): SMOKED 1PPD , SMOKED 10 YEARS . QUIT SMOKING 20 YRS AGO OR MORE. Past Drug Use History: Marijuana, Methamphetamine Additional Drug Use History / Comment(s): MEDICAL CARD. Patient admitted 07/16/21 positive for methamphetamines; amphetamines; benzos; opiates; and marijuana - Past Family History Sister(s) Family Medical History: Cancer Brother(s) Family Medical History: Cancer Additional Family Medical History / Comment(s): brother had heart valve replacement Mother Family Medical History: Chest Pain / Angina, Diabetes Mellitus, Hypertension Medications and Allergies Home Medications Medication Instructions Recorded Confirmed Type Ibuprofen [Motrin] 800 mg PO TID-W/MEALS PRN 06/02/14 10/06/21 History metFORMIN HCL [Glucophage] 1,000 mg PO BID-W/MEALS 06/02/14 10/06/21 History traMADol HCl [Ultram] 100 mg PO BID PRN 11/04/15 10/06/21 History Baclofen 10 mg PO TID PRN 09/14/16 10/06/21 History sitaGLIPtin [Januvia] 100 mg PO DAILY 03/04/19 10/06/21 History Spironolactone-Hctz 25-25Mg 1 tab PO DAILY 07/21/20 10/06/21 History [Aldactazide 25-25 MG] rOPINIRole HCL [Requip] 2 mg PO HS 07/21/20 10/06/21 History atenoloL [Tenormin] 50 mg PO DAILY #30 tab 07/23/21 10/06/21 Rx Losartan Potassium 100 mg PO DAILY 10/06/21 10/06/21 History Allergies Allergy/AdvReac Type Severity Reaction Status Date / Time cephalexin Allergy Anaphylaxis Verified 10/06/21 17:35 cephalexin monohydrate Allergy Anaphylaxis Verified 10/06/21 17:35 [From Keflex] Sulfa (Sulfonamide Allergy Rash/Hives Verified 10/06/21 17:35 Antibiotics) Physical Exam Vitals: Vital Signs Temp Pulse Pulse Resp BP BP Pulse Ox 10/07/21 04:30 97 18 116/72 97 10/06/21 23:20 98.9 F 108 H 17 133/84 97 10/06/21 19:50 99.5 F 114 H 18 142/91 98 10/06/21 19:00 125 H 16 150/83 97 10/06/21 17:22 124 H 16 150/83 98 10/06/21 15:56 22 10/06/21 15:25 97.7 F 127 H 26 H 148/104 100 Intake and Output 10/06/21 10/07/21 10/07/21 22:59 06:59 14:59 Intake Total 68.527 Balance 68.527 Intake: Intake, IV Titration 68.527 Amount Heparin Sod,Pork in 0.45% 68.527 NaCl 25,000 unit In 0.45 % NaCl 1 250ml.bag @ 11. 31 UNITS/KG/HR 10.004 mls /hr IV .Q24H [facility] Rx#: [id number] Other: Voiding Method Toilet Toilet # Voids 1 Weight 88.451 kg 91.5 kg Results 10/07/21 07:34 10/07/21 07:34 Cardiac Enzymes 10/06/21 10/06/21 10/06/21 Range/Units 15:56 15:56 18:55 AST 23 (14-36) U/L Troponin I 0.146 H* 0.492 H* (0.000-0.034) ng/mL 10/06/21 Range/Units 22:05 AST (14-36) U/L Troponin I 2.050 H* (0.000-0.034) ng/mL Coagulation 10/06/21 10/06/21 Range/Units 15:56 23:42 PT 10.8 (9.0-12.0) sec APTT 26.2 28.6 (22.0-30.0) sec CBC 10/06/21 Range/Units 15:56 WBC 16.1 H (3.8-10.6) k/uL RBC 5.66 H (3.80-5.40) m/uL Hgb 14.8 (11.4-16.0) gm/dL Hct 45.7 (34.0-46.0) % Plt Count 509 H (150-450) k/uL Comprehensive Metabolic Panel 10/06/21 Range/Units 15:56 Sodium 134 L (137-145) mmol/L Potassium 4.1 (3.5-5.1) mmol/L Chloride 96 L (98-107) mmol/L Carbon Dioxide 16 L (22-30) mmol/L BUN 16 (7-17) mg/dL Creatinine 0.90 (0.52-1.04) mg/dL Glucose 182 H (74-99) mg/dL Calcium 11.0 H (8.4-10.2) mg/dL AST 23 (14-36) U/L ALT 18 (4-34) U/L Alkaline Phosphatase 112 (38-126) U/L Total Protein 8.9 H (6.3-8.2) g/dL Albumin 5.1 H (3.5-5.0) g/dL Current Medications Generic Name Dose Route Start Last Admin Trade Name Freq PRN Reason Stop Dose Admin Acetaminophen 500 mg 10/06/21 20:07 Acetaminophen Tab 500 Mg Tab PO Q6HR PRN Fever and/ or Pain Aspirin 81 mg 10/07/21 09:00 Aspirin 81 Mg PO DAILY [facility] Baclofen 10 mg 10/06/21 17:38 Baclofen 10 Mg Tab PO TID PRN Pain HCTZ/Spironolactone 1 each 10/07/21 09:00 Spironolactone-Hctz 25-25mg 1 Each Tab PO DAILY [facility] Heparin Sodium (Porcine) 0 unit 10/06/21 17:27 10/07/21 00:38 Heparin Sodium 1,000 Un/Ml (10ml Vl) IV 4,000 unit PER PROTOCOL PRN Administration Low PTT Protocol Heparin Sodium/Sodium Chloride 250 mls @ 10.004 mls/hr 10/06/21 17:30 10/07/21 00:39 25,000 unit/ Sodium Chloride IV 14.31 units/kg/hr .Q24H [facility] 12.657 mls/hr Titration Protocol 11.31 UNITS/KG/HR Insulin Aspart 0 unit 10/06/21 21:00 10/07/21 06:03 Insulin Aspart (Novolog) 100 Unit/Ml Vial SQ Not Given ACHS [facility] Protocol Losartan Potassium 100 mg 10/07/21 09:00 Losartan 50 Mg Tab PO DAILY [facility] Metoprolol Tartrate 25 mg 10/06/21 21:00 10/06/21 21:51 Metoprolol Tartrate 25 Mg Tab PO 25 mg BID [facility] Administration Naloxone HCl 0.2 mg 10/06/21 17:36 Naloxone 0.4 Mg/Ml 1 Ml Vial IV Q2M PRN Opioid Reversal Ropinirole HCl 2 mg 10/06/21 21:00 10/06/21 18:12 Ropinirole Hcl 1 Mg Tab PO 2 mg HS [facility] Administration Tramadol HCl 100 mg 10/06/21 17:38 10/06/21 20:13 Tramadol 50 Mg Tab PO 100 mg BID PRN Administration Pain Intake and Output 10/06/21 10/07/21 10/07/21 22:59 06:59 14:59 Intake Total 68.527 Balance 68.527 Intake: Intake, IV Titration 68.527 Amount Heparin Sod,Pork in 0.45% 68.527 NaCl 25,000 unit In 0.45 % NaCl 1 250ml.bag @ 11. 31 UNITS/KG/HR 10.004 mls /hr IV .Q24H [facility] Rx#: [id number] Other: Voiding Method Toilet Toilet # Voids 1 Weight 88.451 kg 91.5 kg 10/06/21 15:56 10/06/21 15:56
[2021-10-07] MEDS ORDERED: LIDOCAINE 1% INJ 10MG/ML (20 ML MDV) ONE (09:36)
[2021-10-07] MEDS ORDERED: VERAPAMIL 2.5 MG/ML 2 ML AMP ONE (09:36)
[2021-10-07] MEDS ORDERED: ASPIRIN 81 MG ONE (09:43)
[2021-10-07] MEDS ORDERED: HEPARIN SODIUM 1,000 UN/ML (10ML VL) ONE (09:43)
[2021-10-07] MEDS ORDERED: SODIUM CHLORIDE 0.9% 1,000 ML IV ONE (09:55)
[2021-10-07] MEDS ORDERED: ASPIRIN 81 MG PO ONE (10:00)
[2021-10-07] MEDS ORDERED: fentaNYL (PF) 50 MCG/ML 5 ML AMP IV ONE (10:12)
[2021-10-07] MEDS ORDERED: LIDOCAINE 1% INJ 10MG/ML (20 ML MDV) SQ ONE (10:15)
[2021-10-07] MEDS: MIDAZOLAM 2 MG/2 ML VIAL IV ONE ×2 (10:16→10:23)
[2021-10-07] MEDS: VERAPAMIL SYRINGE (5 MG/10 ML) INTRAARTER ONE ×2 (10:17→10:24)
[2021-10-07] MEDS ORDERED: HEPARIN SODIUM 1,000 UN/ML (10ML VL) IV ONE (10:22)
[2021-10-07] MEDS ORDERED: IOPAMIDOL-370 125ML BTL INJ ONE (10:34)
[2021-10-07] MEDS ORDERED: RX INFO: IV CONTRAST WAS GIVEN 1 EACH MISC MISCELLANE PRN (10:40)
[2021-10-07] MEDS ORDERED: SODIUM CHLORIDE 0.9% 1,000 ML IV SCH (10:45)
--- NOTE | 2021-10-07 11:00 | ECHOF ---
Referral Reason:elevated troponin, chest pain MEASUREMENTS -------- HEIGHT: 157.5 cm WEIGHT: 91.2 kg BP: 116/72 RVIDd: 2.6 cm (< 3.3) IVSd: 1.7 cm (0.6 - 1.1) LVIDd: 4.3 cm (3.9 - 5.3) LVPWd: 1.7 cm (0.6 - 1.1) IVSs: 1.9 cm LVIDs: 3.3 cm LVPWs: 1.9 cm LAESV Index (A-L): 31.09 ml/m Ao Diam: 3.3 cm (2.0 - 3.7) AV Cusp: 2.0 cm (1.5 - 2.6) LA Diam: 3.2 cm (2.7 - 3.8) MV EXCURSION: 15.568 mm (> 18.000) MV EF SLOPE: 56 mm/s (70 - 150) EPSS: 1.5 cm MV E Joseph: 0.90 m/s MV DecT: 140 ms MV A Joseph: 1.29 m/s MV E/A Ratio: 0.70 RAP: 5.00 mmHg RVSP: 23.89 mmHg FINDINGS -------- Sinus rhythm. This was a technically adequate study. The left ventricular size is normal. There is moderate concentric left ventricular hypertrophy. O verall left ventricular systolic function is mild-moderately impaired with, an EF between 40 - 45 %. Mid anterior LV wall motion is hypokinetic. Mid lateral LV wall motion is hypokinetic. Mid in ferior LV wall motion is hypokinetic. Atypical septal wall motion The right ventricle is normal in size. LA is midly dilated 29-33ml/m2. The right atrium was not well visualized. Interatrial and interventricular septum intact. The aortic valve is trileaflet and appears structurally normal. There is mild aortic valve sclerosi s. There is no evidence of aortic regurgitation. There is no evidence of aortic stenosis. Moderate mitral annular calcification present. Mild mitral regurgitation is present. Mild tricuspid regurgitation present. There is no evidence of pulmonary hypertension. The right v entricular systolic pressure, as measured by Doppler, is 23.89mmHg. There is no pulmonic regurgitation present. The aortic root size is normal. IVC Not well visulized. Echo free space represents a pericardial fat pad. There is no pericardial effusion. CONCLUSIONS -------- 1. The left ventricular size is normal. 2. There is moderate concentric left ventricular hypertrophy. 3. Overall left ventricular systolic function is mild-moderately impaired with, an EF between 40 - 45 %. 4. Mid anterior LV wall motion is hypokinetic. 5. Mid lateral LV wall motion is hypokinetic. 6. Mid inferior LV wall motion is hypokinetic. 7. Atypical septal wall motion 8. LA is midly dilated 29-33ml/m2. 9. There is mild aortic valve sclerosis. 10. Moderate mitral annular calcification present. 11. Mild mitral regurgitation is present. 12. Mild tricuspid regurgitation present. 13. Echo free space represents a pericardial fat pad. WEIGHT GUESSER: Mary Bautista RDCS
[2021-10-07 11:26] LABS: Glucose,Whole Blood 149 mg/dL (75-99)
--- NOTE | 2021-10-07 13:00 | CC ---
CARDIAC CATHETERIZATION REPORT Mrs. Moore is a 71-year-old female with a known history of hypertension, hyperlipidemia, diabetes mellitus, who presented with an acute episode of chest discomfort and dyspnea. On presentation she was noted to have a left bundle branch block that was not documented in the past as well as evidence of elevated troponin. In view of that, recommendation was made regarding cardiac catheterization. The procedure as well as risks and complications were discussed with the patient, who was in full understanding and agreement. PROCEDURE DESCRIPTION: Patient was brought to the clinical lab scientist in a fasting, semi-sedated state after receiving fentanyl and Benadryl and achieving a moderate conscious sedated state. Using Xylocaine anesthesia and Seldinger technique, a 6-Anguillan sheath was introduced in the right radial artery. Selective right and left coronary angiography was performed using 5-Anguillan, 3.5 bend right Navid and a 5-Anguillan Pete catheter. Images of the coronary arteries were obtained. There was difficulty advancing the left Navid because of severe spasm. After obtaining images of the coronary arteries, including hemiaxial views, a 5-Anguillan tight pigtail catheter was introduced in the left ventricle, and left ventricular end-diastolic pressure was calculated. Following that, catheter and sheath were removed. Hemostasis was obtained with deployment of a TR band. There was no immediate complication. Patient was returned to her room in stable condition. Of note, the patient received 5000 units of intravenous heparin as well as intra-arterial verapamil. FINDINGS: FLUOROSCOPY: There was significant calcification involving the left main, the LAD and the right coronary artery. LEFT MAIN: This is a large-sized vessel bifurcating into left circumflex and left anterior descending artery. The left main distally has a 40% to 50% plaque. The rest of the vessel has no high-grade stenosis. LEFT ANTERIOR DESCENDING CORONARY ARTERY: This vessel is large in caliber, reaching to the apex. The ostium of the LAD has a 99% stenosis. The mid LAD has a 30% to 40% plaque. The rest of the vessel has no high-grade stenosis. LEFT CIRCUMFLEX: This is a large nondominant vessel giving rise to a very proximal obtuse marginal branch. The second obtuse marginal branch is small in caliber. The ostium of the left circumflex has a 99% stenosis involving the first obtuse marginal branch and extending into the segment beyond the first obtuse marginal branch. The rest of the vessel has no high-grade stenosis. RIGHT CORONARY ARTERY: This is a large dominant vessel bifurcating distally into PDA and posterolateral segment and branches. The PLV reaches to the apicolateral wall. The PDA has a 70% to 80% stenosis in the proximal segment. The mid and distal segment of the right coronary artery has diffuse intimal disease of 20% to 30% without any evidence of high-grade stenosis. LEFT VENTRICULOGRAM: Left ventriculogram was not performed. HEMODYNAMICS: There was no gradient across the aortic valve. The left ventricular end- diastolic pressure was 15 to 20 mmHg. CONCLUSION: 1. Calcified coronary arteries. 2. Severe obstructive coronary artery disease involving the distal left main, ostium of the LAD and the left circumflex as well as the right PDA. RECOMMENDATIONS: In view of findings and anatomy, I have recommended proceeding with evaluation for urgent coronary artery bypass grafting with bypass to the LAD, first and second obtuse marginal branches and the right PDA. Those findings and recommendations were discussed with the patient, who is in full understanding and agreement. No family was available. The case was discussed with Dr. Motley. Duration of sedation was 21 minutes. MMODL / IJN: [id number] /
--- NOTE | 2021-10-07 13:03 | LTR ---
October 07, 2021 To: Dr. Rodríguez Regarding: Mark Moore (50) Dear Dr. Rodríguez, I had the pleasure of performing cardiac catheterization on Mrs. Moore at [facility] on October 07. A full copy of the procedure note will be forwarded to you. In brief, she was found to have severe triple-vessel coronary artery disease with ostium of the LAD and the left circumflex having critical stenosis and involving the distal left main. In view of that, I have recommended proceeding with evaluation for urgent coronary artery bypass grafting. I will keep you updated on her progress. Thank you again for allowing me to participate in this patient's care. Please feel free to call with any questions. Sincerely, Jairo Lantigua M.D. RICK / NURY: [id number] /
[2021-10-07] MEDS ORDERED: MD COMMUNICATION TO PHARMACY 1 EACH MISC PO ONE ×2 (13:04)
[2021-10-07] MEDS: HEPARIN SOD,PORK IN 0.45% NACL 25,000 UNIT in 0.45% NACL 1 250ML.BAG IV SCH (13:43)
--- NOTE | 2021-10-07 14:27 | P.GSCN ---
History of Present Illness Consult date: 10/07/21 Reason for Consult: Multivessel coronary artery disease with distal left main disease Requesting physician: Jairo Lantigua History of present illness: This is a 71-year-old female patient who follows with Dr. Rodríguez on an outpatient basis per her primary care service. She has a past medical history significant for hypertension, diabetes mellitus type 2, asthma, COPD, morbid obesity, remote history of tobacco abuse quit smoking 20 years ago, obstructive sleep apnea, occasional marijuana use and methamphetamine use. The patient presented to the emergency department here at [facility] yesterday 10/06/2021 with complaints of chest pain with taking a deep breath and shortness of breath even at rest. She reports her symptoms came on acutely. She denies any recent fever, chills, nausea, vomiting, diarrhea, constipation, orthopnea, palpitations, presyncope or syncope. Initial laboratory results showed a WBC count of 16.1, hemoglobin 14.8, platelets 509, a d-dimer of 4.16, sodium 134, potassium 4.1, CO2 16, BUN 16, creatinine 0.90, glucose 182, plasma lactic acid 3.3, calcium 11.0, proBNP 544 and positive serial troponins as high as 2.050. A COVID-19 PCR test was completed which showed not detected and the patient reports that she is vaccinated for COVID-19 with 2 shots but is unsure w hich vaccination she received. Her 12-lead EKG demonstrated sinus tachycardia with a heart rate of 119 BPM, left ventricular hypertrophy, and a left bundle branch block. A chest x-ray was completed which showed no acute process. Due to her elevated d-dimer and presentation with shortness of breath and chest pain a CT chest angio for PE protocol was completed which showed no acute pulmonary embolus, mild dependent opacities, compatible with atelectasis and a multi- nodular thyroid. For further evaluation A computed tomography scan of her brain was completed which showed no acute intracranial abnormality. Subsequently, due to the patient's presenting symptoms and elevated serial troponins a consult was placed to Dr. Lantigua from cardiology. Today a transthoracic 2-D echocardiogram was completed which demonstrated an overall left ventricular systolic function to be mild to moderately impaired with an ejection fraction between 40 and 45%, moderate mitral annular calcification, mild mitral valve regurgitation, and mild tricuspid valve regurgitation. The patient also underwent a cardiac catheterization today which demonstrated a 40-50% distal left main stenosis, an ostial 99% stenosis to her left anterior descending coronary artery, a 30-40% mid LAD stenosis, a 99% ostial circumflex coronary artery stenosis a 70-80% stenosis to her posterior descending artery, and her mid and distal segment of her right coronary artery which shown to have diffuse intimal disease of 20-30% without any evidence of high-grade stenosis. Due to the findings on her heart catheterization, a consult was placed to cardiothoracic surgery for further evaluation and treatment recommendations including myocardial revascularization surgery. Review of Systems A 14 point review of systems was completed and was negative except as mentioned in the HPI. 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 Poly substance abuse 07/19/21 admitted for Acute delirium History of Any Multi-Drug Resistant Organisms: None Reported Past Surgical History: Cholecystectomy, Hernia Repair, Orthopedic Surgery, Tonsillectomy, Tubal Ligation Additional Past Surgical History / Comment(s): LEFT KNEE ARTHROSCOPY, BMT AND MYRINGOPLASTY, umbilical hernia repair Past Anesthesia/Blood Transfusion Reactions: No Reported Reaction Additional Past Anesthesia/Blood Transfusion Reaction / Comm: STATES AFTER LAST EAR SX (11/2013) HAD SORE MUSCLES AND WAS WEAK FOR 3-4 DAYS Past Psychological History: No Psychological Hx Reported Smoking Status: Former smoker Past Alcohol Use History: None Reported Additional Past Alcohol Use History / Comment(s): SMOKED 1PPD , SMOKED 10 YEARS . QUIT SMOKING 20 YRS AGO OR MORE. Past Drug Use History: Marijuana, Methamphetamine Additional Drug Use History / Comment(s): MEDICAL CARD. Patient admitted 07/16/21 positive for methamphetamines; amphetamines; benzodiazepine; opiates; and marijuana. Urine toxicology screen this admission 10/06/2021 shows positive for methamphetamines, benzodiazepine and marijuana. - Past Family History Sister(s) Family Medical History: Cancer Brother(s) Family Medical History: Cancer Additional Family Medical History / Comment(s): brother had heart valve replacement Mother Family Medical History: Chest Pain / Angina, Congestive Heart Failure (CHF), Diabetes Mellitus, Hypertension Father History Unknown: Yes (She does not know her father's history.) Medications and Allergies Home Medications Medication Instructions Recorded Confirmed Type Ibuprofen [Motrin] 800 mg PO TID-W/MEALS PRN 06/02/14 10/06/21 History metFORMIN HCL [Glucophage] 1,000 mg PO BID-W/MEALS 06/02/14 10/06/21 History traMADol HCl [Ultram] 100 mg PO BID PRN 11/04/15 10/06/21 History Baclofen 10 mg PO TID PRN 09/14/16 10/06/21 History sitaGLIPtin [Januvia] 100 mg PO DAILY 03/04/19 10/06/21 History Spironolactone-Hctz 25-25Mg 1 tab PO DAILY 07/21/20 10/06/21 History [Aldactazide 25-25 MG] rOPINIRole HCL [Requip] 2 mg PO HS 07/21/20 10/06/21 History atenoloL [Tenormin] 50 mg PO DAILY #30 tab 07/23/21 10/06/21 Rx Losartan Potassium 100 mg PO DAILY 10/06/21 10/06/21 History Allergies Allergy/AdvReac Type Severity Reaction Status Date / Time cephalexin Allergy Anaphylaxis Verified 10/06/21 17:35 cephalexin monohydrate Allergy Anaphylaxis Verified 10/06/21 17:35 [From Keflex] Sulfa (Sulfonamide Allergy Rash/Hives Verified 10/06/21 17:35 Antibiotics) Surgical - Exam Vital Signs Temp Pulse Resp BP Pulse Ox 97.7 F 127 H 26 H 148/104 100 10/06/21 15:25 10/06/21 15:25 10/06/21 15:25 10/06/21 15:25 10/06/21 15:25 - General well developed, well nourished, no distress, no pain, obese - Eyes PERRL, normal ocular movement, no pale, no icteric - ENT normal pinna, normal nares, normal mucosa, no congestion, decreased hearing, dentures - Neck Neck is supple, no lymphadenopathy. No carotid bruit. no masses, no bruits, trachea midline, no venous distension - Respiratory Lungs sounds essentially clear to her upper lobes, few scattered crackles to her bilateral bases. Respirations are symmetrical and non-labored. No wheezes or rhonchi. - Cardiovascular Regular rhythm and rate. S1 and S2 present, negative for S3, gallop or murmur. No edema present. - Abdomen Abdomen is soft, nontender and nondistended. Active bowel sounds present all 4 abdominal quadrants. No guarding or rigidity. No organomegaly appreciated. - Integumentary Skin is warm and dry. No clubbing or cyanosis is present. no rash, no growths, no abnormal pigmentation - Neurologic normal coordination, normal sensation - Musculoskeletal normal gait, normal posture - Psychiatric oriented to time, oriented to person, oriented to place, speech is normal, memory intact Results - Labs 10/07/21 07:34 10/07/21 07:34 Abnormal Lab Results - Last 24 Hours (Table) 10/06/21 10/06/21 10/06/21 Range/Units 15:56 15:56 15:56 WBC 16.1 H (3.8-10.6) k/uL RBC 5.66 H (3.80-5.40) m/uL RDW 17.9 H (11.5-15.5) % Plt Count 509 H (150-450) k/uL Neutrophils # 8.4 H (1.3-7.7) k/uL Lymphocytes # 6.2 H (1.0-4.8) k/uL APTT (22.0-30.0) sec D-Dimer 4.16 H (<0.60) mg/L FEU Sodium 134 L (137-145) mmol/L Chloride 96 L (98-107) mmol/L Carbon Dioxide 16 L (22-30) mmol/L Glucose 182 H (74-99) mg/dL POC Glucose (mg/dL) (75-99) mg/dL Plasma Lactic Acid Angel (0.7-2.0) mmol/L Calcium 11.0 H (8.4-10.2) mg/dL Troponin I (0.000-0.034) ng/mL Total Protein 8.9 H (6.3-8.2) g/dL Albumin 5.1 H (3.5-5.0) g/dL Ur Specific [place] (1.001-1.035) Urine Protein (Negative) Urine Mucus (None) /hpf U Methamphetamines Scrn (NotDetected) U Benzodiazepines Scrn (NotDetected) U Marijuana (THC) Screen (NotDetected) 10/06/21 10/06/21 10/06/21 Range/Units 15:56 15:56 18:55 WBC (3.8-10.6) k/uL RBC (3.80-5.40) m/uL RDW (11.5-15.5) % Plt Count (150-450) k/uL Neutrophils # (1.3-7.7) k/uL Lymphocytes # (1.0-4.8) k/uL APTT (22.0-30.0) sec D-Dimer (<0.60) mg/L FEU Sodium (137-145) mmol/L Chloride (98-107) mmol/L Carbon Dioxide (22-30) mmol/L Glucose (74-99) mg/dL POC Glucose (mg/dL) (75-99) mg/dL Plasma Lactic Acid Angel 3.3 H* (0.7-2.0) mmol/L Calcium (8.4-10.2) mg/dL Troponin I 0.146 H* 0.492 H* (0.000-0.034) ng/mL Total Protein (6.3-8.2) g/dL Albumin (3.5-5.0) g/dL Ur Specific [place] (1.001-1.035) Urine Protein (Negative) Urine Mucus (None) /hpf U Methamphetamines Scrn (NotDetected) U Benzodiazepines Scrn (NotDetected) U Marijuana (THC) Screen (NotDetected) 10/06/21 10/06/21 10/06/21 Range/Units 18:55 20:19 22:05 WBC (3.8-10.6) k/uL RBC (3.80-5.40) m/uL RDW (11.5-15.5) % Plt Count (150-450) k/uL Neutrophils # (1.3-7.7) k/uL Lymphocytes # (1.0-4.8) k/uL APTT (22.0-30.0) sec D-Dimer (<0.60) mg/L FEU Sodium (137-145) mmol/L Chloride (98-107) mmol/L Carbon Dioxide (22-30) mmol/L Glucose (74-99) mg/dL POC Glucose (mg/dL) 177 H (75-99) mg/dL Plasma Lactic Acid Angel 2.1 H* (0.7-2.0) mmol/L Calcium (8.4-10.2) mg/dL Troponin I 2.050 H* (0.000-0.034) ng/mL Total Protein (6.3-8.2) g/dL Albumin (3.5-5.0) g/dL Ur Specific [place] (1.001-1.035) Urine Protein (Negative) Urine Mucus (None) /hpf U Methamphetamines Scrn (NotDetected) U Benzodiazepines Scrn (NotDetected) U Marijuana (THC) Screen (NotDetected) 10/06/21 10/06/21 10/06/21 Range/Units 22:05 22:24 22:24 WBC (3.8-10.6) k/uL RBC (3.80-5.40) m/uL RDW (11.5-15.5) % Plt Count (150-450) k/uL Neutrophils # (1.3-7.7) k/uL Lymphocytes # (1.0-4.8) k/uL APTT (22.0-30.0) sec D-Dimer (<0.60) mg/L FEU Sodium (137-145) mmol/L Chloride (98-107) mmol/L Carbon Dioxide (22-30) mmol/L Glucose (74-99) mg/dL POC Glucose (mg/dL) (75-99) mg/dL Plasma Lactic Acid Angel 2.1 H* (0.7-2.0) mmol/L Calcium (8.4-10.2) mg/dL Troponin I (0.000-0.034) ng/mL Total Protein (6.3-8.2) g/dL Albumin (3.5-5.0) g/dL Ur Specific [place] >1.050 H (1.001-1.035) Urine Protein 1+ H (Negative) Urine Mucus Rare H (None) /hpf U Methamphetamines Scrn Detected H (NotDetected) U Benzodiazepines Scrn Detected H (NotDetected) U Marijuana (THC) Screen Detected H (NotDetected) 10/07/21 10/07/21 10/07/21 Range/Units 06:03 07:34 07:34 WBC 10.9 H (3.8-10.6) k/uL RBC (3.80-5.40) m/uL RDW 17.7 H (11.5-15.5) % Plt Count (150-450) k/uL Neutrophils # (1.3-7.7) k/uL Lymphocytes # (1.0-4.8) k/uL APTT (22.0-30.0) sec D-Dimer (<0.60) mg/L FEU Sodium 132 L (137-145) mmol/L Chloride (98-107) mmol/L Carbon Dioxide (22-30) mmol/L Glucose 143 H (74-99) mg/dL POC Glucose (mg/dL) 131 H (75-99) mg/dL Plasma Lactic Acid Angel (0.7-2.0) mmol/L Calcium (8.4-10.2) mg/dL Troponin I (0.000-0.034) ng/mL Total Protein (6.3-8.2) g/dL Albumin (3.5-5.0) g/dL Ur Specific [place] (1.001-1.035) Urine Protein (Negative) Urine Mucus (None) /hpf U Methamphetamines Scrn (NotDetected) U Benzodiazepines Scrn (NotDetected) U Marijuana (THC) Screen (NotDetected) 10/07/21 10/07/21 Range/Units 07:34 11:22 WBC (3.8-10.6) k/uL RBC (3.80-5.40) m/uL RDW (11.5-15.5) % Plt Count (150-450) k/uL Neutrophils # (1.3-7.7) k/uL Lymphocytes # (1.0-4.8) k/uL APTT 44.2 H (22.0-30.0) sec D-Dimer (<0.60) mg/L FEU Sodium (137-145) mmol/L Chloride (98-107) mmol/L Carbon Dioxide (22-30) mmol/L Glucose (74-99) mg/dL POC Glucose (mg/dL) 149 H (75-99) mg/dL Plasma Lactic Acid Angel (0.7-2.0) mmol/L Calcium (8.4-10.2) mg/dL Troponin I (0.000-0.034) ng/mL Total Protein (6.3-8.2) g/dL Albumin (3.5-5.0) g/dL Ur Specific [place] (1.001-1.035) Urine Protein (Negative) Urine Mucus (None) /hpf U Methamphetamines Scrn (NotDetected) U Benzodiazepines Scrn (NotDetected) U Marijuana (THC) Screen (NotDetected) Diabetes panel 10/06/21 10/07/21 Range/Units 15:56 07:34 Sodium 134 L 132 L (137-145) mmol/L Potassium 4.1 4.6 (3.5-5.1) mmol/L Chloride 96 L 100 (98-107) mmol/L Carbon Dioxide 16 L 22 (22-30) mmol/L BUN 16 13 (7-17) mg/dL Creatinine 0.90 0.69 (0.52-1.04) mg/dL Glucose 182 H 143 H (74-99) mg/dL Calcium 11.0 H 9.2 (8.4-10.2) mg/dL AST 23 (14-36) U/L ALT 18 (4-34) U/L Alkaline Phosphatase 112 (38-126) U/L Total Protein 8.9 H (6.3-8.2) g/dL Albumin 5.1 H (3.5-5.0) g/dL Thyroid panel 10/07/21 Range/Units 07:34 TSH 1.920 (0.465-4.680) mIU/L Calcium panel 10/06/21 10/07/21 Range/Units 15:56 07:34 Calcium 11.0 H 9.2 (8.4-10.2) mg/dL Albumin 5.1 H (3.5-5.0) g/dL Pituitary panel 10/06/21 10/07/21 10/07/21 Range/Units 15:56 07:34 07:34 Sodium 134 L 132 L (137-145) mmol/L Potassium 4.1 4.6 (3.5-5.1) mmol/L Chloride 96 L 100 (98-107) mmol/L Carbon Dioxide 16 L 22 (22-30) mmol/L BUN 16 13 (7-17) mg/dL Creatinine 0.90 0.69 (0.52-1.04) mg/dL Glucose 182 H 143 H (74-99) mg/dL Calcium 11.0 H 9.2 (8.4-10.2) mg/dL TSH 1.920 (0.465-4.680) mIU/L Adrenal panel 10/06/21 10/07/21 Range/Units 15:56 07:34 Sodium 134 L 132 L (137-145) mmol/L Potassium 4.1 4.6 (3.5-5.1) mmol/L Chloride 96 L 100 (98-107) mmol/L Carbon Dioxide 16 L 22 (22-30) mmol/L BUN 16 13 (7-17) mg/dL Creatinine 0.90 0.69 (0.52-1.04) mg/dL Glucose 182 H 143 H (74-99) mg/dL Calcium 11.0 H 9.2 (8.4-10.2) mg/dL Total Bilirubin 0.5 (0.2-1.3) mg/dL AST 23 (14-36) U/L ALT 18 (4-34) U/L Alkaline Phosphatase 112 (38-126) U/L Total Protein 8.9 H (6.3-8.2) g/dL Albumin 5.1 H (3.5-5.0) g/dL - Imaging Chest x-ray: report reviewed, image reviewed CT scan - chest: report reviewed, image reviewed EKG: image reviewed Additional studies: Cardiac catheterization and transthoracic echocardiogram results reviewed. Assessment and Plan Assessment: 1. Multivessel coronary artery disease with left main disease 2. Non-ST elevated myocardial infarction this admission 3. Type 2 diabetes mellitus 4. History of hypertension 5. Hyperlipidemia 6. History of asthma 7. History of COPD 8. Remote history of nicotine abuse, quit smoking over 20 years ago 9. Occasional marijuana use 10. Methamphetamine abuse 11. Family history of coronary artery disease Plan: The patient was seen and examined at her bedside on the cardiac stepdown unit. Her chart diagnostics reviewed. Her case was discussed in detail with Dr. Ki Motley from cardiothoracic surgery. Preoperative testing and preoperative teaching has been initiated. Discussed the importance of risk modification including continued smoking cessation. The usual preoperative course of myocardial revascularization was discussed with the patient in detail. Once her preoperative testing has been completed an STS risk or will be calculated discussed with the patient. Once the patient is able to ambulate a 5 m walk test will be completed with the patient. Continue to optimize medical management with aspirin, statin and beta marcos. Medical management of her comorbidities per primary care service. More recommendations will follow based on patient's clinical course and as the patient's preoperative testing has been obtained. Thank you Dr. Lantigua for this consult and we look forward to working with you in the care of this patient. Time with Patient: Greater than 30
--- NOTE | 2021-10-07 15:04 | P.CNPUL ---
History of Present Illness Consult date: 10/07/21 Requesting physician: Surinder Rodríguez Reason for consult: dyspnea, chest pain Chief complaint: Chest pain, coronary artery disease. History of present illness: Pulmonary consult dated 10/07/2021. 71-year-old female, who presented to the emergency department, on October 06, complaining of shortness of breath. She apparently presented to the emergency department, with complaints of shortness of breath was started the day of admission to the ER. She felt like she took a deep breath, she had pain in her chest. It was limiting her ability to take a deep breath. The patient did smoke in the past for about 10 years. She does smoke marijuana occasionally. More recently, the patient had a cardiac catheterization today, which showed severe multivessel disease. The patient is being evaluated for possible bypass grafting. Her chest x-ray was negative for acute disease. Her CT angiogram was negative for pulmonary embolism. Currently, she is on room air, and she is getting saline at 75 mL an hour. Her cardiac catheterization took place today, on October 07. She had laboratory data today including a white count of 10.9, hemoglobin 13.3, hematocrit 42.4, and a platelet count of 376,000. Sodium 132, potassium 4.6, chlorides 100, CO2 22, BUN 13, with a creatinine of 0.69. She has a history of diabetes, asthma, fibromyalgia, hyperlipidemia, hypertension, osteoarthritis, sleep apnea syndrome. She does smoke marijuana, and a previous history of methamphetamine use. Review of Systems REVIEW OF SYSTEMS: CONSTITUTIONAL: [Negative.] NEUROLOGIC: [ Negative.] HEENT: [ Negative.] CARDIAC: Chest pain. PULMONARY: Pain in the chest on deep inspiration. GI: [Negative.] : [Negative.] RHEUMATOLOGIC: [ Negative.] IMMUNOLOGIC: [ Negative.] ENDOCRINE: [Negative. 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 Poly substance abuse 07/19/21 admitted for Acute delirium History of Any Multi-Drug Resistant Organisms: None Reported Past Surgical History: Cholecystectomy, Hernia Repair, Orthopedic Surgery, Tonsillectomy, Tubal Ligation Additional Past Surgical History / Comment(s): LEFT KNEE ARTHROSCOPY, BMT AND MYRINGOPLASTY, umbilical hernia repair Past Anesthesia/Blood Transfusion Reactions: No Reported Reaction Additional Past Anesthesia/Blood Transfusion Reaction / Comment(s): STATES AFTER LAST EAR SX (11/2013) HAD SORE MUSCLES AND WAS WEAK FOR 3-4 DAYS Past Psychological History: No Psychological Hx Reported Smoking Status: Former smoker Past Alcohol Use History: None Reported Additional Past Alcohol Use History / Comment(s): SMOKED 1PPD , SMOKED 10 YEARS . QUIT SMOKING 20 YRS AGO OR MORE. Past Drug Use History: Marijuana, Methamphetamine Additional Drug Use History / Comment(s): MEDICAL CARD. Patient admitted 07/16/21 positive for methamphetamines; amphetamines; benzodiazepine; opiates; and marijuana. Urine toxicology screen this admission 10/06/2021 shows positive for methamphetamines, benzodiazepine and marijuana. - Past Family History Sister(s) Family Medical History: Cancer Brother(s) Family Medical History: Cancer Additional Family Medical History / Comment(s): brother had heart valve replacement Mother Family Medical History: Chest Pain / Angina, Congestive Heart Failure (CHF), Diabetes Mellitus, Hypertension Father History Unknown: Yes (She does not know her father's history.) Medications and Allergies Home Medications Medication Instructions Recorded Confirmed Type Ibuprofen [Motrin] 800 mg PO TID-W/MEALS PRN 06/02/14 10/06/21 History metFORMIN HCL [Glucophage] 1,000 mg PO BID-W/MEALS 06/02/14 10/06/21 History traMADol HCl [Ultram] 100 mg PO BID PRN 11/04/15 10/06/21 History Baclofen 10 mg PO TID PRN 09/14/16 10/06/21 History sitaGLIPtin [Januvia] 100 mg PO DAILY 03/04/19 10/06/21 History Spironolactone-Hctz 25-25Mg 1 tab PO DAILY 07/21/20 10/06/21 History [Aldactazide 25-25 MG] rOPINIRole HCL [Requip] 2 mg PO HS 07/21/20 10/06/21 History atenoloL [Tenormin] 50 mg PO DAILY #30 tab 07/23/21 10/06/21 Rx Losartan Potassium 100 mg PO DAILY 10/06/21 10/06/21 History Allergies Allergy/AdvReac Type Severity Reaction Status Date / Time cephalexin Allergy Anaphylaxis Verified 10/06/21 17:35 cephalexin monohydrate Allergy Anaphylaxis Verified 10/06/21 17:35 [From Keflex] Sulfa (Sulfonamide Allergy Rash/Hives Verified 10/06/21 17:35 Antibiotics) Physical Exam Osteopathic Statement: *. No significant issues noted on an osteopathic structural exam other than those noted in the History and Physical/Consult. Vitals: Vital Signs Temp Pulse Pulse Resp BP BP Pulse Ox 10/07/21 08:00 98.3 F 102 H 16 118/73 98 10/07/21 04:30 97 18 116/72 97 10/06/21 23:20 98.9 F 108 H 17 133/84 97 10/06/21 19:50 99.5 F 114 H 18 142/91 98 10/06/21 19:00 125 H 16 150/83 97 10/06/21 17:22 124 H 16 150/83 98 10/06/21 15:56 22 10/06/21 15:25 97.7 F 127 H 26 H 148/104 100 Intake and Output 10/06/21 10/07/21 10/07/21 22:59 06:59 14:59 Intake Total 68.527 300 Balance 68.527 300 Intake: IV 100 Intake, IV Titration 68.527 Amount Heparin Sod,Pork in 0.45% 68.527 NaCl 25,000 unit In 0.45 % NaCl 1 250ml.bag @ 11. 31 UNITS/KG/HR 10.004 mls /hr IV .Q24H [facility] Rx#: [id number] Oral 200 Other: Voiding Method Toilet Toilet Toilet # Voids 1 1 Weight 88.451 kg 91.5 kg No acute distress, oriented 3. Currently on room air. Saturations are 98%. HEENT examination is grossly unremarkable. Neck supple. Full range of motion. No adenopathy thyromegaly or neck vein distention. Cardiovascular examination reveals regular rhythm rate. S1-S2 normal. No S3 or S4. No discernible murmur noted. Heart rate 97 bpm. Lungs reveal clear breath sounds. Breath sounds are equal bilaterally. No adventitious lung sounds including wheezes rhonchi or crackles. Abdomen soft bowel sounds are heard. No masses or tenderness. Extremities are intact. No cyanosis clubbing or edema. Skin is without rash or lesion. Neurologic examination is brief but nonfocal. Results - Laboratory Findings CBC and BMP: 10/07/21 07:34 10/07/21 07:34 PT/INR, D-dimer PT 10.8 sec (9.0-12.0) 10/07/21 07:34 INR 1.0 (<1.2) 10/07/21 07:34 D-Dimer 4.16 mg/L FEU (<0.60) H 10/06/21 15:56 Abnormal lab findings: Abnormal Labs 10/06/21 10/06/21 10/06/21 15:56 15:56 15:56 WBC 16.1 H RBC 5.66 H RDW 17.9 H Plt Count 509 H Neutrophils # 8.4 H Lymphocytes # 6.2 H APTT D-Dimer 4.16 H Sodium 134 L Chloride 96 L Carbon Dioxide 16 L Glucose 182 H POC Glucose (mg/dL) Plasma Lactic Acid Angel Calcium 11.0 H Troponin I Total Protein 8.9 H Albumin 5.1 H Ur Specific [place] Urine Protein Urine Mucus U Methamphetamines Scrn U Benzodiazepines Scrn U Marijuana (THC) Screen 10/06/21 10/06/21 10/06/21 15:56 15:56 18:55 WBC RBC RDW Plt Count Neutrophils # Lymphocytes # APTT D-Dimer Sodium Chloride Carbon Dioxide Glucose POC Glucose (mg/dL) Plasma Lactic Acid Angel 3.3 H* Calcium Troponin I 0.146 H* 0.492 H* Total Protein Albumin Ur Specific [place] Urine Protein Urine Mucus U Methamphetamines Scrn U Benzodiazepines Scrn U Marijuana (THC) Screen 10/06/21 10/06/21 10/06/21 18:55 20:19 22:05 WBC RBC RDW Plt Count Neutrophils # Lymphocytes # APTT D-Dimer Sodium Chloride Carbon Dioxide Glucose POC Glucose (mg/dL) 177 H Plasma Lactic Acid Angel 2.1 H* Calcium Troponin I 2.050 H* Total Protein Albumin Ur Specific [place] Urine Protein Urine Mucus U Methamphetamines Scrn U Benzodiazepines Scrn U Marijuana (THC) Screen 12/10/06/21 10/06/21 22:05 22:24 22:24 WBC RBC RDW Plt Count Neutrophils # Lymphocytes # APTT D-Dimer Sodium Chloride Carbon Dioxide Glucose POC Glucose (mg/dL) Plasma Lactic Acid Angel 2.1 H* Calcium Troponin I Total Protein Albumin Ur Specific [place] >1.050 H Urine Protein 1+ H Urine Mucus Rare H U Methamphetamines Scrn Detected H U Benzodiazepines Scrn Detected H U Marijuana (THC) Screen Detected H 10/07/21 10/07/21 10/07/21 06:03 07:34 07:34 WBC 10.9 H RBC RDW 17.7 H Plt Count Neutrophils # Lymphocytes # APTT D-Dimer Sodium 132 L Chloride Carbon Dioxide Glucose 143 H POC Glucose (mg/dL) 131 H Plasma Lactic Acid Angel Calcium Troponin I Total Protein Albumin Ur Specific [place] Urine Protein Urine Mucus U Methamphetamines Scrn U Benzodiazepines Scrn U Marijuana (THC) Screen 10/07/21 10/07/21 07:34 11:22 WBC RBC RDW Plt Count Neutrophils # Lymphocytes # APTT 44.2 H D-Dimer Sodium Chloride Carbon Dioxide Glucose POC Glucose (mg/dL) 149 H Plasma Lactic Acid Angel Calcium Troponin I Total Protein Albumin Ur Specific [place] Urine Protein Urine Mucus U Methamphetamines Scrn U Benzodiazepines Scrn U Marijuana (THC) Screen - Diagnostic Findings Chest x-ray: image reviewed CT scan - chest: image reviewed Assessment and Plan Assessment: Severe obstructive coronary artery disease involving the distal left main, ostium of the LAD, the left circumflex, as well as a right PDA. Doubt significant intrinsic pulmonary disease. We will await PFTs. History of hypertension. History of hyperlipidemia. History of diabetes mellitus. History of prior methamphetamine use. Occasional marijuana use. 10 years of previous cigarette use. Obesity. Fibromyalgia. Osteoarthritis. History of sleep apnea syndrome. Plan: Plan dated 10/07/2021. The patient denies any pulmonary complaints chronically, such as shortness of breath, coughing, wheezing, or phlegm production. The patient does smoke marijuana from time to time, and did smoke cigarettes for about 10 years. I will await the pulmonary function testing, to give her an operative risk. I suspect, that she has minimal chronic lung disease. Additional recommendations and suggestions are forthcoming. Chest x-ray do not show anything in the way of acute disease. CT angiogram was negative for pulmonary embolism. Time with Patient: Greater than 30
--- NOTE | 2021-10-07 15:21 | US ---
EXAMINATION TYPE: US carotid duplex BILAT DATE OF EXAM: 10/07/2021 COMPARISON: NONE CLINICAL HISTORY: Pre-Op Cardiac Surgery. EXAM MEASUREMENTS: RIGHT: Peak Systolic Velocity (PSV) cm/sec ----- Right CCA: 59.5 ----- Right ICA: 96.8 ----- Right ECA: 72.4 ICA/CCA ratio: 1.6 RIGHT: End Diastole cm/sec ----- Right CCA: 14.4 ----- Right ICA: 33.8 ----- Right ECA: 6.5 LEFT: Peak Systolic Velocity (PSV) cm/sec ----- Left CCA: 58.1 ----- Left ICA: 75.2 ----- Left ECA: 68.6 ICA/CCA ratio: 1.3 LEFT: End Diastole cm/sec ----- Left CCA: 18.4 ----- Left ICA: 25.0 ----- Left ECA: 14.4 VERTEBRALS (direction of flow): Right Vertebral: Antegrade Left Vertebral: Antegrade Rhythm: Normal No significant stenosis seen; mild plaque seen in the bilateral carotid artery bulbs. Incidental Finding: large, heterogenous thyroid with multiple nodules. Large, complex nodule seen i n the right thyroid measuring 3.7 x 2.0 x 3.0 cm. Nonemergent thyroid ultrasound follow-up advised if this is not known finding. IMPRESSION: No hemodynamically significant stenosis in either internal carotid artery. Criteria for Assigning % of Stenosis / Diameter reduction (Estimation based on the indirect measurements of the internal carotid artery velocities (ICA PSV). 1. Normal (no stenosis)=ICA PSV < 125 cm/s: ratio < 2.0: ICA EDV<40 cm/s. 2. Less than 50% stenosis=ICA PSV < 125 cm/s: ratio < 2.0: ICA EDV<40 cm/s. 3. 50 to 69% stenosis=ICA PSV of 125 to 230 cm/s: ration 2.0 ? 4.0: ICA EDV 40-100 cm/s. 4. Greater than 70% stenosis to near occlusion= ICA PSV > 230 cm/s: ratio > 4.0: ICA EDV > 100 cm/s. 5. Near occlusion= ICA PSV velocities may be low or undetectable: variable ratio and ICA EDV. 6. Total occlusion=unable to detect flow.
[2021-10-07 16:38] LABS: Chol/HDL Ratio 4.37 Ratio; LDL Cholesterol,Calculated 133.7 mg/dL (0.0-131.0)
[2021-10-07] MEDS: SODIUM CHLORIDE 0.9% 1,000 ML in EMPTY BAG 1 BAG IV SCH ×2 (16:40→21:54)
[2021-10-07 16:46] LABS: Glucose,Whole Blood 100 mg/dL (75-99)
--- NOTE | 2021-10-07 17:16 | P.HPIM ---
History of Present Illness H&P Date: 10/07/21 Mark Moore, he is a 71-year-old female who presented to [facility] emergency room with a chief complaint of worsening shortness of breath and chest discomfort. She was evaluated in the emergency room vital examination on presentation revealed a temperature of 97.7 pulse 127 respiration 26 blood pressure 148/104 pulse ox 100% on room air Laboratory data revealed a white blood count of 16.1 hemoglobin 14.8 platelet count 509 sodium 134 potassium 4.1 chloride 96 CO2 16 BUN 16 creatinine 0.9 glucose level was 182 troponin level was elevated at 0.146 plasma lactic acid was elevated at 2.1 urine toxicology screen was positive for methamphetamine, benzodiazepine, and marijuana. Testing in the emergency room revealed CT angiogram of the chest revealed no evidence of acute pulmonary embolism, EKG revealed left bundle branch block Patient was admitted to medical floor for further evaluation and treatment, she was started on IV heparin cardiology and pulmonary consultation were requested. Past medical history is significant for history of hypertension, history of hyperlipidemia, history of anxiety disorder, history of restless leg syndrome, history of diabetes mellitus type 2, history of asthma, history of obstructive sleep apnea, and previous history of smoking. 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 Poly substance abuse 07/19/21 admitted for Acute delirium History of Any Multi-Drug Resistant Organisms: None Reported Past Surgical History: Cholecystectomy, Hernia Repair, Orthopedic Surgery, Tonsillectomy, Tubal Ligation Additional Past Surgical History / Comment(s): LEFT KNEE ARTHROSCOPY, BMT AND MYRINGOPLASTY, umbilical hernia repair Past Anesthesia/Blood Transfusion Reactions: No Reported Reaction Additional Past Anesthesia/Blood Transfusion Reaction / Comment(s): STATES AFTER LAST EAR SX (11/2013) HAD SORE MUSCLES AND WAS WEAK FOR 3-4 DAYS Past Psychological History: Unable to Obtain Smoking Status: Former smoker Past Alcohol Use History: None Reported Additional Past Alcohol Use History / Comment(s): SMOKED 1PPD , SMOKED 10 YEARS . QUIT SMOKING 20 YRS AGO OR MORE. Past Drug Use History: Marijuana, Methamphetamine Additional Drug Use History / Comment(s): MEDICAL CARD. Patient admitted 07/16/21 positive for methamphetamines; amphetamines; benzos; opiates; and marijuana - Past Family History Sister(s) Family Medical History: Cancer Brother(s) Family Medical History: Cancer Additional Family Medical History / Comment(s): brother had heart valve replacement Mother Family Medical History: Chest Pain / Angina, Diabetes Mellitus, Hypertension Father History Unknown: Yes (She does not know her father's history.) Medications and Allergies Home Medications Medication Instructions Recorded Confirmed Type Ibuprofen [Motrin] 800 mg PO TID-W/MEALS PRN 06/02/14 10/06/21 History metFORMIN HCL [Glucophage] 1,000 mg PO BID-W/MEALS 06/02/14 10/06/21 History traMADol HCl [Ultram] 100 mg PO BID PRN 11/04/15 10/06/21 History Baclofen 10 mg PO TID PRN 09/14/16 10/06/21 History sitaGLIPtin [Januvia] 100 mg PO DAILY 03/04/19 10/06/21 History Spironolactone-Hctz 25-25Mg 1 tab PO DAILY 07/21/20 10/06/21 History [Aldactazide 25-25 MG] rOPINIRole HCL [Requip] 2 mg PO HS 07/21/20 10/06/21 History atenoloL [Tenormin] 50 mg PO DAILY #30 tab 07/23/21 10/06/21 Rx Losartan Potassium 100 mg PO DAILY 10/06/21 10/06/21 History Allergies Allergy/AdvReac Type Severity Reaction Status Date / Time cephalexin Allergy Anaphylaxis Verified 10/06/21 17:35 cephalexin monohydrate Allergy Anaphylaxis Verified 10/06/21 17:35 [From Keflex] Sulfa (Sulfonamide Allergy Rash/Hives Verified 10/06/21 17:35 Antibiotics) Physical Exam Vitals: Vital Signs Temp Pulse Pulse Resp BP BP Pulse Ox 10/07/21 04:30 97 18 116/72 97 10/06/21 23:20 98.9 F 108 H 17 133/84 97 10/06/21 19:50 99.5 F 114 H 18 142/91 98 10/06/21 19:00 125 H 16 150/83 97 10/06/21 17:22 124 H 16 150/83 98 10/06/21 15:56 22 10/06/21 15:25 97.7 F 127 H 26 H 148/104 100 Intake and Output 10/06/21 10/07/21 10/07/21 22:59 06:59 14:59 Intake Total 68.527 Balance 68.527 Intake: Intake, IV Titration 68.527 Amount Heparin Sod,Pork in 0.45% 68.527 NaCl 25,000 unit In 0.45 % NaCl 1 250ml.bag @ 11. 31 UNITS/KG/HR 10.004 mls /hr IV .Q24H [facility] Rx#: [id number] Other: Voiding Method Toilet Toilet # Voids 1 Weight 88.451 kg 91.5 kg In general patient is alert and oriented x 3 in no distress HEENT head normocephalic and atraumatic Neck is supple no JVD no goiter no lymphadenopathy no carotid bruit Chest examination is clear to auscultation no crackles no wheezing Cardiac exam reveals regular heart sounds S1 and S2 no gallops no murmurs Abdomen is soft nontender no organomegaly with normal bowel sounds Extremity exam reveals no edema no cyanosis or clubbing Neurological examination reveals no gross focal deficits Results CBC & Chem 7: 10/07/21 07:34 10/07/21 07:34 Labs: Abnormal Lab Results - Last 24 Hours (Table) 10/06/21 10/06/21 10/06/21 Range/Units 15:56 15:56 15:56 WBC 16.1 H (3.8-10.6) k/uL RBC 5.66 H (3.80-5.40) m/uL RDW 17.9 H (11.5-15.5) % Plt Count 509 H (150-450) k/uL Neutrophils # 8.4 H (1.3-7.7) k/uL Lymphocytes # 6.2 H (1.0-4.8) k/uL APTT (22.0-30.0) sec D-Dimer 4.16 H (<0.60) mg/L FEU Sodium 134 L (137-145) mmol/L Chloride 96 L (98-107) mmol/L Carbon Dioxide 16 L (22-30) mmol/L Glucose 182 H (74-99) mg/dL POC Glucose (mg/dL) (75-99) mg/dL Plasma Lactic Acid Angel (0.7-2.0) mmol/L Calcium 11.0 H (8.4-10.2) mg/dL Troponin I (0.000-0.034) ng/mL Total Protein 8.9 H (6.3-8.2) g/dL Albumin 5.1 H (3.5-5.0) g/dL Ur Specific [place] (1.001-1.035) Urine Protein (Negative) Urine Mucus (None) /hpf U Methamphetamines Scrn (NotDetected) U Benzodiazepines Scrn (NotDetected) U Marijuana (THC) Screen (NotDetected) 10/06/21 10/06/21 10/06/21 Range/Units 15:56 15:56 18:55 WBC (3.8-10.6) k/uL RBC (3.80-5.40) m/uL RDW (11.5-15.5) % Plt Count (150-450) k/uL Neutrophils # (1.3-7.7) k/uL Lymphocytes # (1.0-4.8) k/uL APTT (22.0-30.0) sec D-Dimer (<0.60) mg/L FEU Sodium (137-145) mmol/L Chloride (98-107) mmol/L Carbon Dioxide (22-30) mmol/L Glucose (74-99) mg/dL POC Glucose (mg/dL) (75-99) mg/dL Plasma Lactic Acid Angel 3.3 H* (0.7-2.0) mmol/L Calcium (8.4-10.2) mg/dL Troponin I 0.146 H* 0.492 H* (0.000-0.034) ng/mL Total Protein (6.3-8.2) g/dL Albumin (3.5-5.0) g/dL Ur Specific [place] (1.001-1.035) Urine Protein (Negative) Urine Mucus (None) /hpf U Methamphetamines Scrn (NotDetected) U Benzodiazepines Scrn (NotDetected) U Marijuana (THC) Screen (NotDetected) 10/06/21 10/06/21 10/06/21 Range/Units 18:55 20:19 22:05 WBC (3.8-10.6) k/uL RBC (3.80-5.40) m/uL RDW (11.5-15.5) % Plt Count (150-450) k/uL Neutrophils # (1.3-7.7) k/uL Lymphocytes # (1.0-4.8) k/uL APTT (22.0-30.0) sec D-Dimer (<0.60) mg/L FEU Sodium (137-145) mmol/L Chloride (98-107) mmol/L Carbon Dioxide (22-30) mmol/L Glucose (74-99) mg/dL POC Glucose (mg/dL) 177 H (75-99) mg/dL Plasma Lactic Acid Angel 2.1 H* (0.7-2.0) mmol/L Calcium (8.4-10.2) mg/dL Troponin I 2.050 H* (0.000-0.034) ng/mL Total Protein (6.3-8.2) g/dL Albumin (3.5-5.0) g/dL Ur Specific [place] (1.001-1.035) Urine Protein (Negative) Urine Mucus (None) /hpf U Methamphetamines Scrn (NotDetected) U Benzodiazepines Scrn (NotDetected) U Marijuana (THC) Screen (NotDetected) 10/06/21 10/06/21 10/06/21 Range/Units 22:05 22:24 22:24 WBC (3.8-10.6) k/uL RBC (3.80-5.40) m/uL RDW (11.5-15.5) % Plt Count (150-450) k/uL Neutrophils # (1.3-7.7) k/uL Lymphocytes # (1.0-4.8) k/uL APTT (22.0-30.0) sec D-Dimer (<0.60) mg/L FEU Sodium (137-145) mmol/L Chloride (98-107) mmol/L Carbon Dioxide (22-30) mmol/L Glucose (74-99) mg/dL POC Glucose (mg/dL) (75-99) mg/dL Plasma Lactic Acid Angel 2.1 H* (0.7-2.0) mmol/L Calcium (8.4-10.2) mg/dL Troponin I (0.000-0.034) ng/mL Total Protein (6.3-8.2) g/dL Albumin (3.5-5.0) g/dL Ur Specific [place] >1.050 H (1.001-1.035) Urine Protein 1+ H (Negative) Urine Mucus Rare H (None) /hpf U Methamphetamines Scrn Detected H (NotDetected) U Benzodiazepines Scrn Detected H (NotDetected) U Marijuana (THC) Screen Detected H (NotDetected) 10/07/21 10/07/21 10/07/21 Range/Units 06:03 07:34 07:34 WBC 10.9 H (3.8-10.6) k/uL RBC (3.80-5.40) m/uL RDW 17.7 H (11.5-15.5) % Plt Count (150-450) k/uL Neutrophils # (1.3-7.7) k/uL Lymphocytes # (1.0-4.8) k/uL APTT (22.0-30.0) sec D-Dimer (<0.60) mg/L FEU Sodium 132 L (137-145) mmol/L Chloride (98-107) mmol/L Carbon Dioxide (22-30) mmol/L Glucose 143 H (74-99) mg/dL POC Glucose (mg/dL) 131 H (75-99) mg/dL Plasma Lactic Acid Angel (0.7-2.0) mmol/L Calcium (8.4-10.2) mg/dL Troponin I (0.000-0.034) ng/mL Total Protein (6.3-8.2) g/dL Albumin (3.5-5.0) g/dL Ur Specific [place] (1.001-1.035) Urine Protein (Negative) Urine Mucus (None) /hpf U Methamphetamines Scrn (NotDetected) U Benzodiazepines Scrn (NotDetected) U Marijuana (THC) Screen (NotDetected) 10/07/21 Range/Units 07:34 WBC (3.8-10.6) k/uL RBC (3.80-5.40) m/uL RDW (11.5-15.5) % Plt Count (150-450) k/uL Neutrophils # (1.3-7.7) k/uL Lymphocytes # (1.0-4.8) k/uL APTT 44.2 H (22.0-30.0) sec D-Dimer (<0.60) mg/L FEU Sodium (137-145) mmol/L Chloride (98-107) mmol/L Carbon Dioxide (22-30) mmol/L Glucose (74-99) mg/dL POC Glucose (mg/dL) (75-99) mg/dL Plasma Lactic Acid Angel (0.7-2.0) mmol/L Calcium (8.4-10.2) mg/dL Troponin I (0.000-0.034) ng/mL Total Protein (6.3-8.2) g/dL Albumin (3.5-5.0) g/dL Ur Specific [place] (1.001-1.035) Urine Protein (Negative) Urine Mucus (None) /hpf U Methamphetamines Scrn (NotDetected) U Benzodiazepines Scrn (NotDetected) U Marijuana (THC) Screen (NotDetected) Thrombosis Risk Factor Assmnt - Choose All That Apply Any of the Below Risk Factors Present?: Yes Each Factor Represents 1 point: Obesity (BMI >25) Other Risk Factors: Yes Each Risk Factor Represents 2 Points: Age 61-74 years Other congenital or acquired thrombophilia - If yes, enter type in comment: No Thrombosis Risk Factor Assessment Total Risk Factor Score: 3 Thrombosis Risk Factor Assessment Level: Moderate Risk Assessment and Plan Plan: Acute non-ST elevation myocardial infarction Shortness of breath, could be related to acute myocardial infarction, however no evidence of pulmonary congestion on chest x-ray, and no elevation in BNP, possibility of acute asthma exacerbation. Toxicology screen positive for methamphetamine and marijuana use Underlying history of hypertension Underlying history of hyperlipidemia Underlying history of diabetes mellitus type 2 with check hemoglobin A1c At this time patient is admitted to telemetry floor Home medications reviewed and reordered Patient started on IV heparin in the emergency room Cardiology consultation and pulmonary consultation were requested Will follow closely
[2021-10-07 20:16] LABS: Glucose,Whole Blood 140 mg/dL (75-99)
[2021-10-07] MEDS: MUPIROCIN 2% OINT 22 GM TUBE NASAL SCH (21:54)
[2021-10-08] MEDS: HEPARIN SODIUM 1,000 UN/ML (10ML VL) IV PRN (00:56)
[2021-10-08 01:05] LABS: Hepatitis A Antibody IgM Nonreactive (Nonreactive); Hepatitis B Core IgM Nonreactive (Nonreactive); Hepatitis B Surface Antigen Nonreactive (Nonreactive); Hepatitis C IgG Antibody Nonreactive (Nonreactive)
[2021-10-08 06:06] LABS: Glucose,Whole Blood 132 mg/dL (75-99)
[2021-10-08] MEDS: INSULIN ASPART (NovoLOG) 100 UNIT/ML VIAL SQ SCH ×4 (06:18→20:48)
[2021-10-08] MEDS ORDERED: HEPARIN SODIUM,PORCINE 2,500 UNIT in SODIUM CHLORIDE 0.9% 250 ML IRRIGATION PRN (07:00)
[2021-10-08] MEDS ORDERED: HEPARIN SODIUM,PORCINE 10,000 UNIT in SODIUM CHLORIDE 0.9% 1,000 ML IRRIGATION PRN (07:00)
[2021-10-08 08:02] LABS: Anisocytosis Slight; Basophils # (A) 0.1 k/uL (0-0.2); Basophils % (A) 1 %; Eosinophils # (A) 0.4 k/uL (0-0.7); Eosinophils % (A) 5 %; HCT 38.4 % (34.0-46.0); HGB 11.8 gm/dL (11.4-16.0); Hypochromasia Slight; Lymphocytes # (A) 2.7 k/uL (1.0-4.8); Lymphocytes % (A) 33 %; MCHC 30.7 g/dL (31.0-37.0); MCV 84.9 fL (80.0-100.0); Mean Platelet Volume 7.5; Monocytes # (A) 0.4 k/uL (0-1.0); Monocytes % (A) 4 %; Neutrophils # (A) 4.6 k/uL (1.3-7.7); Neutrophils % (A) 56 %; Platelet Count 285 k/uL (150-450); RBC 4.52 m/uL (3.80-5.40); RDW 17.6 % (11.5-15.5); WBC 8.2 k/uL (3.8-10.6)
[2021-10-08 08:13] LABS: Partial Thromboplastin Time 62.3 sec (22.0-30.0); Prothrombin Time 10.6 sec (9.0-12.0)
[2021-10-08 08:37] LABS: African American GFR (CKD) >90 (>60 ml/min/1.73 sqM); Anion Gap 7 mmol/L; Blood Urea Nitrogen 12 mg/dL (7-17); Calcium 8.7 mg/dL (8.4-10.2); Carbon Dioxide 24 mmol/L (22-30); Chloride 103 mmol/L (98-107); Glucose 125 mg/dL (74-99); Non-African American GFR(CKD) >90 (>60 ml/min/1.73 sqM); Sodium 134 mmol/L (137-145)
--- NOTE | 2021-10-08 08:49 | PN ---
PROGRESS NOTE Mrs. Moore is a 71-year-old female who underwent cardiac catheterization yesterday because of non STEMI, was found to have critical stenosis involving the ostium of the LAD, left circumflex as well as significant disease in the distal left main and disease in the PDA. Surgical consultation was obtained. She is feeling well this morning. Her breathing is stable. She denies any chest pain. She denies any dizziness or palpitations. She is hemodynamically stable in sinus mechanism. Continues to be on aspirin once a day, Lipitor 80 mg daily. She is on IV heparin, losartan 100 mg daily, metoprolol tartrate 25 mg twice a day in addition to Aldactazide 25 mg daily. PHYSICAL EXAMINATION: Blood pressure running in the 130s with a heart rate in the 70s. LUNGS: Clear. HEART: Regular rate and rhythm S1, S2. No S3. No rub. ABDOMEN: Soft, nontender. EXTREMITIES: No edema. Right radial pulse intact. LAB DATA: Hemoglobin of 11.8. Carotid ultrasound revealed no evidence of significant obstructive disease. IMPRESSION: 1. Non ST-segment elevation myocardial infarction. 2. Severe coronary artery disease with triple-vessel coronary artery disease with ostial LAD and left circumflex. 3. History of hypertension. 4. Hyperlipidemia. 5. Diabetes mellitus. RECOMMENDATIONS: Patient underwent an echocardiogram yesterday that revealed an ejection fraction of 40% to 45% with segmental wall motion abnormality and no significant valvular disease. She will be evaluated by the surgical team for coronary artery bypass grafting that hopefully will be performed soon in view of her presentation and her symptoms. In the meantime, I will increase the dose of her beta marcos. Continue to follow her renal function and depending on her progress, further recommendations will be made. We will continue on the IV heparin for this time. MMODL / IJN: [id number] /
[2021-10-08] MEDS: ATORVASTATIN 80 MG TAB PO SCH (09:25)
[2021-10-08] MEDS: SPIRONOLACTONE-HCTZ 25-25MG 1 EACH TAB PO SCH (09:25)
[2021-10-08] MEDS: METOPROLOL TARTRATE 25 MG TAB PO SCH ×3 (09:25→20:09)
[2021-10-08] MEDS: ASPIRIN 81 MG PO SCH (09:25)
[2021-10-08] MEDS: LOSARTAN 50 MG TAB PO SCH (09:25)
[2021-10-08] MEDS: MUPIROCIN 2% OINT 22 GM TUBE NASAL SCH ×2 (09:26→20:48)
[2021-10-08] MEDS: SODIUM CHLORIDE 0.9% 1,000 ML in EMPTY BAG 1 BAG IV SCH (09:40)
[2021-10-08] MEDS: HEPARIN SOD,PORK IN 0.45% NACL 25,000 UNIT in 0.45% NACL 1 250ML.BAG IV SCH (09:41)
--- NOTE | 2021-10-08 10:12 | P.PN ---
Subjective Progress Note Date: 10/08/21 Mark Moore, he is a 71-year-old female who presented to [facility] emergency room with a chief complaint of worsening shortness of breath and chest discomfort. She was evaluated in the emergency room vital examination on presentation revealed a temperature of 97.7 pulse 127 respiration 26 blood pressure 148/104 pulse ox 100% on room air Laboratory data revealed a white blood count of 16.1 hemoglobin 14.8 platelet count 509 sodium 134 potassium 4.1 chloride 96 CO2 16 BUN 16 creatinine 0.9 glucose level was 182 troponin level was elevated at 0.146 plasma lactic acid was elevated at 2.1 urine toxicology screen was positive for methamphetamine, benzodiazepine, and marijuana. Testing in the emergency room revealed CT angiogram of the chest revealed no evidence of acute pulmonary embolism, EKG revealed left bundle branch block Patient was admitted to medical floor for further evaluation and treatment, she was started on IV heparin cardiology and pulmonary consultation were requested. Past medical history is significant for history of hypertension, history of hyperlipidemia, history of anxiety disorder, history of restless leg syndrome, history of diabetes mellitus type 2, history of asthma, history of obstructive sleep apnea, and previous history of smoking. On 10/08/2021 patient underwent cardiac catheterization revealing multivessel disease. Cardiothoracic surgery is following plans for coronary artery bypass graft surgery on Monday. Patient remains on heparin drip. At this time patient denies chest pain or shortness breath. Patient denies nausea vomiting or diarrhea. Pulmonary and cardiology services also following. Preoperative workup in progress per cardiothoracic surgery Objective - Vital Signs Vital signs: Vital Signs Temp 98.2 F 10/08/21 08:00 Pulse 102 H 10/08/21 08:00 Resp 18 10/08/21 08:00 BP 97/55 10/08/21 08:00 Pulse Ox 97 10/08/21 08:00 Intake & Output 10/07/21 10/08/21 10/08/21 18:59 06:59 18:59 Intake Total 799.167 92.833 298 Balance 799.167 92.833 298 Weight 92.5 kg Intake: IV 100 Intake, IV Titration 39.167 92.833 118 Amount Heparin Sod,Pork in 0.45% 39.167 92.833 118 NaCl 25,000 unit In 0.45 % NaCl 1 250ml.bag @ 10. 928 UNITS/KG/HR 9.999 mls /hr IV .Q24H [facility] Rx#: [id number] Oral 660 180 Other: Voiding Method Toilet Toilet # Voids 3 1 - Exam In general patient is alert and oriented x 3 in no distress HEENT head normocephalic and atraumatic Neck is supple no JVD no goiter no lymphadenopathy no carotid bruit Chest examination is clear to auscultation no crackles no wheezing Cardiac exam reveals regular heart sounds S1 and S2 no gallops no murmurs Abdomen is soft nontender no organomegaly with normal bowel sounds Extremity exam reveals no edema no cyanosis or clubbing Neurological examination reveals no gross focal deficits - Labs CBC & Chem 7: 10/08/21 06:49 10/08/21 06:49 Labs: Abnormal Lab Results - Last 24 Hours (Table) 10/07/21 10/07/21 10/07/21 Range/Units 07:34 07:34 11:22 MCHC (31.0-37.0) g/dL RDW (11.5-15.5) % APTT (22.0-30.0) sec Sodium (137-145) mmol/L Glucose (74-99) mg/dL POC Glucose (mg/dL) 149 H (75-99) mg/dL Hemoglobin A1c 7.0 H (4.0-6.0) % Troponin I (0.000-0.034) ng/mL Triglycerides 168.00 H (0.00-149.00) mg/dL Cholesterol 217.00 H (0.00-200.00) mg/dL LDL Cholesterol, Calc 133.7 H (0.0-131.0) mg/dL 10/07/21 10/07/21 10/07/21 Range/Units 16:25 16:36 20:15 MCHC (31.0-37.0) g/dL RDW (11.5-15.5) % APTT 30.5 H (22.0-30.0) sec Sodium (137-145) mmol/L Glucose (74-99) mg/dL POC Glucose (mg/dL) 100 H 140 H (75-99) mg/dL Hemoglobin A1c (4.0-6.0) % Troponin I (0.000-0.034) ng/mL Triglycerides (0.00-149.00) mg/dL Cholesterol (0.00-200.00) mg/dL LDL Cholesterol, Calc (0.0-131.0) mg/dL 10/07/21 10/08/21 10/08/21 Range/Units 23:55 06:04 06:49 MCHC (31.0-37.0) g/dL RDW (11.5-15.5) % APTT 31.4 H (22.0-30.0) sec Sodium 134 L (137-145) mmol/L Glucose 125 H (74-99) mg/dL POC Glucose (mg/dL) 132 H (75-99) mg/dL Hemoglobin A1c (4.0-6.0) % Troponin I (0.000-0.034) ng/mL Triglycerides (0.00-149.00) mg/dL Cholesterol (0.00-200.00) mg/dL LDL Cholesterol, Calc (0.0-131.0) mg/dL 10/08/21 10/08/21 10/08/21 Range/Units 06:49 06:49 06:49 MCHC 30.7 L (31.0-37.0) g/dL RDW 17.6 H (11.5-15.5) % APTT 62.3 H (22.0-30.0) sec Sodium (137-145) mmol/L Glucose (74-99) mg/dL POC Glucose (mg/dL) (75-99) mg/dL Hemoglobin A1c (4.0-6.0) % Troponin I 1.260 H* (0.000-0.034) ng/mL Triglycerides (0.00-149.00) mg/dL Cholesterol (0.00-200.00) mg/dL LDL Cholesterol, Calc (0.0-131.0) mg/dL Microbiology - Last 24 Hours (Table) 10/07/21 18:14 Nasal Screen MRSA/MSSA - Preliminary Nasopharyngeal Swab Assessment and Plan Plan: Acute non-ST elevation myocardial infarction Severe coronary artery disease with triple-vessel coronary artery disease. Cardiothoracic surgery is following plans for coronary artery bypass Surgery on 10/11/2021 patient remains on heparin drip Shortness of breath, could be related to acute myocardial infarction, however no evidence of pulmonary congestion on chest x-ray, and no elevation in BNP, possibility of acute asthma exacerbation. Pulmonary services are following Toxicology screen positive for methamphetamine and marijuana use Underlying history of hypertension Underlying history of hyperlipidemia Underlying history of diabetes mellitus type 2 with check hemoglobin A1c Plans for coronary artery bypass graft surgery on 10/11/2021 Patient maintained on heparin drip Cardiology, pulmonary and cardiothoracic surgery are following Preoperative workup in progress per cardiothoracic surgery
[2021-10-08 11:44] LABS: Glucose,Whole Blood 162 mg/dL (75-99)
--- NOTE | 2021-10-08 11:46 | P.PN ---
Subjective Progress Note Date: 10/08/21 Principal diagnosis: Multivessel coronary artery disease with distal left main disease, non-ST elevated myocardial infarction this admission. Past medical history significant for hypertension, diabetes mellitus type 2, asthma, COPD, morbid obesity, remote history of tobacco abuse quit smoking 20 years ago, obstructive sleep apnea, occasional marijuana use and methamphetamine use. The patient was seen in follow-up today on 10/08/2021 at her bedside on the cardiac stepdown unit. She was also seen and evaluated by Dr. Ruben Brewer from cardiac surgery. Dr. Brewer discuss treatment options with the patient including myocardial revascularization surgery, risks and benefits of surgery were discussed including the STS risk score. Knowing and understanding these risks the patient wishes to proceed with the surgical option. Currently the patient is sitting up to the bedside chair, is awake, alert and oriented 3 and is in no acute apparent distress. She denies any further complaints of shortness of breath or chest pain or pressure at this time. Oxygen saturations are 97% on room air and she is achieving 2250 mL on her incentive spirometry with encouragement. A bedside FEV1 was completed yesterday which showed a predicted value of 82% with a 1.66 L base. A carotid duplex study was completed as part of her preoperative workup which showed no hemodynamically significant stenosis in either internal carotid artery. A 5 m walk test was completed yesterday 10/07/2021 by cardiac rehab which showed time 1: 3.02 seconds, time 2: 3.62 seconds, time 3: 3.70 seconds. Preoperative teaching has been reinforced with the patient. Objective - Vital Signs Vital signs: Vital Signs Temp 98.2 F 10/08/21 08:00 Pulse 102 H 10/08/21 08:00 Resp 18 10/08/21 08:00 BP 97/55 10/08/21 08:00 Pulse Ox 97 10/08/21 08:00 Intake & Output 10/07/21 10/08/21 10/08/21 18:59 06:59 18:59 Intake Total 799.167 92.833 298 Balance 799.167 92.833 298 Weight 92.5 kg Intake: IV 100 Intake, IV Titration 39.167 92.833 118 Amount Heparin Sod,Pork in 0.45% 39.167 92.833 118 NaCl 25,000 unit In 0.45 % NaCl 1 250ml.bag @ 10. 928 UNITS/KG/HR 9.999 mls /hr IV .Q24H [facility] Rx#: [id number] Oral 660 180 Other: Voiding Method Toilet Toilet # Voids 3 1 - Exam CONSTITUTIONAL: Sitting up to the bedside chair on the cardiac stepdown unit, appears comfortable, cooperative, no apparent acute distress. HEENT: Neck is supple, no JVD, no lymphadenopathy. RESPIRATORY: Lungs sounds essentially clear throughout. Respirations are symmetrical and nonlabored. Currently on room air with oxygen saturations 97%. Able to achieve 2250 mL on her incentive spirometry. Strong cough. CARDIOVASCULAR: Regular rhythm and rate. S1 and S2 present, negative for S3, gallop or murmur. Sequential compression devices in place to her bilateral lower extremities. GASTROINTESTINAL: Abdomen soft, nontender, nondistended. Active bowel sounds present 4 quadrants. Tolerating diet. Passing flatus. No guarding or rigidity. GENITOURINARY: Continues to void. INTEGUMENTARY: Skin is warm and dry with no evidence of clubbing or cyanosis. NEUROLOGIC: No focal deficits. MUSKULOSKELETAL: Able to move all extremities, strength equal bilaterally. PSYCHIATRIC: Alert and oriented to person place and time, appropriate affect, intact judgment and insight. - Labs CBC & Chem 7: 10/08/21 06:49 10/08/21 06:49 Labs: Abnormal Lab Results - Last 24 Hours (Table) 10/07/21 10/07/21 10/07/21 Range/Units 07:34 07:34 11:22 MCHC (31.0-37.0) g/dL RDW (11.5-15.5) % APTT (22.0-30.0) sec Sodium (137-145) mmol/L Glucose (74-99) mg/dL POC Glucose (mg/dL) 149 H (75-99) mg/dL Hemoglobin A1c 7.0 H (4.0-6.0) % Troponin I (0.000-0.034) ng/mL Triglycerides 168.00 H (0.00-149.00) mg/dL Cholesterol 217.00 H (0.00-200.00) mg/dL LDL Cholesterol, Calc 133.7 H (0.0-131.0) mg/dL 10/07/21 10/07/21 10/07/21 Range/Units 16:25 16:36 20:15 MCHC (31.0-37.0) g/dL RDW (11.5-15.5) % APTT 30.5 H (22.0-30.0) sec Sodium (137-145) mmol/L Glucose (74-99) mg/dL POC Glucose (mg/dL) 100 H 140 H (75-99) mg/dL Hemoglobin A1c (4.0-6.0) % Troponin I (0.000-0.034) ng/mL Triglycerides (0.00-149.00) mg/dL Cholesterol (0.00-200.00) mg/dL LDL Cholesterol, Calc (0.0-131.0) mg/dL 10/07/21 10/08/21 10/08/21 Range/Units 23:55 06:04 06:49 MCHC (31.0-37.0) g/dL RDW (11.5-15.5) % APTT 31.4 H (22.0-30.0) sec Sodium 134 L (137-145) mmol/L Glucose 125 H (74-99) mg/dL POC Glucose (mg/dL) 132 H (75-99) mg/dL Hemoglobin A1c (4.0-6.0) % Troponin I (0.000-0.034) ng/mL Triglycerides (0.00-149.00) mg/dL Cholesterol (0.00-200.00) mg/dL LDL Cholesterol, Calc (0.0-131.0) mg/dL 10/08/21 10/08/21 10/08/21 Range/Units 06:49 06:49 06:49 MCHC 30.7 L (31.0-37.0) g/dL RDW 17.6 H (11.5-15.5) % APTT 62.3 H (22.0-30.0) sec Sodium (137-145) mmol/L Glucose (74-99) mg/dL POC Glucose (mg/dL) (75-99) mg/dL Hemoglobin A1c (4.0-6.0) % Troponin I 1.260 H* (0.000-0.034) ng/mL Triglycerides (0.00-149.00) mg/dL Cholesterol (0.00-200.00) mg/dL LDL Cholesterol, Calc (0.0-131.0) mg/dL Microbiology - Last 24 Hours (Table) 10/07/21 18:14 Nasal Screen MRSA/MSSA - Preliminary Nasopharyngeal Swab Assessment and Plan Assessment: 1. Multivessel coronary artery disease with left main disease 2. Non-ST elevated myocardial infarction this admission 3. Type 2 diabetes mellitus 4. History of hypertension 5. Hyperlipidemia 6. History of asthma 7. History of COPD 8. Remote history of nicotine abuse, quit smoking over 20 years ago 9. Occasional marijuana use 10. Methamphetamine abuse 11. Family history of coronary artery disease Plan: 1. A 5 m walk test was completed yesterday 10/07/2021 with the patient by exercise physiology, time 1: 3.02 seconds, time 2: 3.62 seconds, time 3: 3.70 seconds. 2. Continue to optimize medical management with aspirin and statin and beta marcos. 3. She will be scheduled for myocardial revascularization surgery with left internal mammary artery, endoscopic harvest of left radial artery, endoscopic vein harvest, intraoperative transesophageal echocardiogram and exclusion of left atrial appendage for 10/11/2021 to be performed by Dr. Ruben Brewer. 4. Continue to encourage use of her incentive spirometry 10 times every hour while awake. She is being followed by pulmonary/critical care medicine. 5. Medical management and other comorbidities primary care service. 6. The importance of risk modification has been discussed with the patient. 7. Preoperative teaching has been reinforced with the patient. 8. More recommendations to follow based on patient's clinical course. Time with Patient: Greater than 30
--- NOTE | 2021-10-08 13:46 | P.PN ---
Subjective Progress Note Date: 10/08/21 Principal diagnosis: Coronary artery disease. Pulmonary consult dated 10/07/2021. 71-year-old female, who presented to the emergency department, on October 06, complaining of shortness of breath. She apparently presented to the emergency department, with complaints of shortness of breath was started the day of admission to the ER. She felt like she took a deep breath, she had pain in her chest. It was limiting her ability to take a deep breath. The patient did smoke in the past for about 10 years. She does smoke marijuana occasionally. More recently, the patient had a cardiac catheterization today, which showed severe multivessel disease. The patient is being evaluated for possible bypass grafting. Her chest x-ray was negative for acute disease. Her CT angiogram was negative for pulmonary embolism. Currently, she is on room air, and she is getting saline at 75 mL an hour. Her cardiac catheterization took place today, on October 07. She had laboratory data today including a white count of 10.9, hemoglobin 13.3, hematocrit 42.4, and a platelet count of 376,000. Sodium 132, potassium 4.6, chlorides 100, CO2 22, BUN 13, with a creatinine of 0.69. She has a history of diabetes, asthma, fibromyalgia, hyperlipidemia, hypertension, osteoarthritis, sleep apnea syndrome. She does smoke marijuana, and a previous history of methamphetamine use. Progress note dated 10/08/2021. Apparently, the patient tells me that she'll have her open heart procedure done on Monday. Her cardiac catheterization showed severe multivessel disease. The patient is doing well from the pulmonary standpoint. She denies any shortness of breath, chest tightness, cough, wheezing, or phlegm production. She does smoke marijuana in did smoke cigarettes for a few years many years ago. She has a history of diabetes, asthma, fibromyalgia, hyperlipidemia, hypertension, and osteoarthritis. She also has a history of sleep apnea syndrome. She's currently resting comfortably. She's getting saline at 75 mL an hour. She's not receiving any supplemental oxygen. She was seen in consultation yesterday. White count 8.2, hemoglobin 11.8, hematocrit 38.4, platelet count 285,000. PTT was 62.3. Sodium 134, potassium 4, chlorides 103, CO2 24, anion gap 7, BUN 12, creatinine 0.64. Troponins 1.260. Objective - Vital Signs Vital signs: Vital Signs Temp 98.2 F 10/08/21 08:00 Pulse 102 H 10/08/21 08:00 Resp 18 10/08/21 08:00 BP 97/55 10/08/21 08:00 Pulse Ox 97 10/08/21 08:00 Intake & Output 10/07/21 10/08/21 10/08/21 18:59 06:59 18:59 Intake Total 799.167 92.833 478 Balance 799.167 92.833 478 Weight 92.5 kg Intake: IV 100 Intake, IV Titration 39.167 92.833 118 Amount Heparin Sod,Pork in 0.45% 39.167 92.833 118 NaCl 25,000 unit In 0.45 % NaCl 1 250ml.bag @ 10. 928 UNITS/KG/HR 9.999 mls /hr IV .Q24H [facility] Rx#: [id number] Oral 660 360 Other: Voiding Method Toilet Toilet Toilet # Voids 3 1 - Exam No acute distress, oriented 3. Currently on room air. Saturations are 97%. HEENT examination is grossly unremarkable. Neck supple. Full range of motion. No adenopathy thyromegaly or neck vein distention. Cardiovascular examination reveals regular rhythm rate. S1-S2 normal. No S3 or S4. No discernible murmur noted. Heart rate 100 bpm. Lungs reveal clear breath sounds. Breath sounds are equal bilaterally. No adventitious lung sounds including wheezes rhonchi or crackles. Abdomen soft bowel sounds are heard. No masses or tenderness. Extremities are intact. No cyanosis clubbing or edema. Skin is without rash or lesion. Neurologic examination is brief but nonfocal. - Labs CBC & Chem 7: 10/08/21 06:49 10/08/21 06:49 Labs: Abnormal Lab Results - Last 24 Hours (Table) 10/07/21 10/07/21 10/07/21 Range/Units 07:34 07:34 16:25 MCHC (31.0-37.0) g/dL RDW (11.5-15.5) % APTT 30.5 H (22.0-30.0) sec Sodium (137-145) mmol/L Glucose (74-99) mg/dL POC Glucose (mg/dL) (75-99) mg/dL Hemoglobin A1c 7.0 H (4.0-6.0) % Troponin I (0.000-0.034) ng/mL Triglycerides 168.00 H (0.00-149.00) mg/dL Cholesterol 217.00 H (0.00-200.00) mg/dL LDL Cholesterol, Calc 133.7 H (0.0-131.0) mg/dL 10/07/21 10/07/21 10/07/21 Range/Units 16:36 20:15 23:55 MCHC (31.0-37.0) g/dL RDW (11.5-15.5) % APTT 31.4 H (22.0-30.0) sec Sodium (137-145) mmol/L Glucose (74-99) mg/dL POC Glucose (mg/dL) 100 H 140 H (75-99) mg/dL Hemoglobin A1c (4.0-6.0) % Troponin I (0.000-0.034) ng/mL Triglycerides (0.00-149.00) mg/dL Cholesterol (0.00-200.00) mg/dL LDL Cholesterol, Calc (0.0-131.0) mg/dL 10/08/21 10/08/21 10/08/21 Range/Units 06:04 06:49 06:49 MCHC 30.7 L (31.0-37.0) g/dL RDW 17.6 H (11.5-15.5) % APTT (22.0-30.0) sec Sodium 134 L (137-145) mmol/L Glucose 125 H (74-99) mg/dL POC Glucose (mg/dL) 132 H (75-99) mg/dL Hemoglobin A1c (4.0-6.0) % Troponin I (0.000-0.034) ng/mL Triglycerides (0.00-149.00) mg/dL Cholesterol (0.00-200.00) mg/dL LDL Cholesterol, Calc (0.0-131.0) mg/dL 10/08/21 10/08/21 10/08/21 Range/Units 06:49 06:49 11:42 MCHC (31.0-37.0) g/dL RDW (11.5-15.5) % APTT 62.3 H (22.0-30.0) sec Sodium (137-145) mmol/L Glucose (74-99) mg/dL POC Glucose (mg/dL) 162 H (75-99) mg/dL Hemoglobin A1c (4.0-6.0) % Troponin I 1.260 H* (0.000-0.034) ng/mL Triglycerides (0.00-149.00) mg/dL Cholesterol (0.00-200.00) mg/dL LDL Cholesterol, Calc (0.0-131.0) mg/dL Microbiology - Last 24 Hours (Table) 10/07/21 18:14 Nasal Screen MRSA/MSSA - Preliminary Nasopharyngeal Swab Assessment and Plan Assessment: Severe obstructive coronary artery disease involving the distal left main, ostium of the LAD, the left circumflex, as well as a right PDA. Doubt significant intrinsic pulmonary disease. We will await PFTs. History of hypertension. History of hyperlipidemia. History of diabetes mellitus. History of prior methamphetamine use. Occasional marijuana use. 10 years of previous cigarette use. Obesity. Fibromyalgia. Osteoarthritis. History of sleep apnea syndrome. Plan: Plan dated 10/07/2021. The patient denies any pulmonary complaints chronically, such as shortness of breath, coughing, wheezing, or phlegm production. The patient does smoke marijuana from time to time, and did smoke cigarettes for about 10 years. I will await the pulmonary function testing, to give her an operative risk. I suspect, that she has minimal chronic lung disease. Additional recommendations and suggestions are forthcoming. Chest x-ray do not show anything in the way of acute disease. CT angiogram was negative for pulmonary embolism. Plan dated 10/08/2021. The patient is doing well from the pulmonary standpoint. She denies any pulmonary complaints including shortness of breath, chest tightness, cough, wheezing, or phlegm production. She is denying any chest pain at the current time. She's not requiring any supplemental oxygen. She's getting saline at 75 mL an hour. We will continue to follow. Apparently, she will have her open heart procedure on Monday. I did explain to her that our purpose as lung doctors are to initially get her off the ventilator, and then to follow her and consecutive days post surgery, to make sure that her lungs today healthy. Time with Patient: Less than 30
[2021-10-08 16:44] LABS: Glucose,Whole Blood 118 mg/dL (75-99)
[2021-10-08 20:39] LABS: Glucose,Whole Blood 179 mg/dL (75-99)
[2021-10-09] MEDS ORDERED: CHLORHEXIDINE GLUCONATE 15 ML CUP MUCOUS MEM ONE (05:00)
[2021-10-09 06:25] LABS: Glucose,Whole Blood 157 mg/dL (75-99)
[2021-10-09] MEDS: INSULIN ASPART (NovoLOG) 100 UNIT/ML VIAL SQ SCH ×4 (06:27→20:41)
[2021-10-09] MEDS: SODIUM CHLORIDE 0.9% 1,000 ML in EMPTY BAG 1 BAG IV SCH ×3 (06:27→16:59)
[2021-10-09 07:37] LABS: Anisocytosis Slight; Basophils % (A) 1 %; Eosinophils # (A) 0.3 k/uL (0-0.7); Eosinophils % (A) 4 %; HGB 11.1 gm/dL (11.4-16.0); Hypochromasia Slight; Lymphocytes # (A) 1.8 k/uL (1.0-4.8); Lymphocytes % (A) 24 %; MCH 26.4 pg (25.0-35.0); MCHC 31.8 g/dL (31.0-37.0); MCV 83.1 fL (80.0-100.0); Mean Platelet Volume 7.9; Monocytes # (A) 0.4 k/uL (0-1.0); Monocytes % (A) 5 %; Neutrophils # (A) 4.7 k/uL (1.3-7.7); Neutrophils % (A) 65 %; Platelet Count 274 k/uL (150-450); RBC 4.22 m/uL (3.80-5.40); RDW 17.6 % (11.5-15.5); WBC 7.3 k/uL (3.8-10.6)
[2021-10-09 07:52] LABS: ALT 12 U/L (4-34); AST 18 U/L (14-36); African American GFR (CKD) >90 (>60 ml/min/1.73 sqM); Albumin 3.5 g/dL (3.5-5.0); Alkaline Phosphatase 73 U/L (38-126); Anion Gap 9 mmol/L; Blood Urea Nitrogen 8 mg/dL (7-17); Calcium 8.9 mg/dL (8.4-10.2); Carbon Dioxide 23 mmol/L (22-30); Chloride 102 mmol/L (98-107); Glucose 144 mg/dL (74-99); Non-African American GFR(CKD) >90 (>60 ml/min/1.73 sqM); Potassium 3.9 mmol/L (3.5-5.1); Sodium 134 mmol/L (137-145); Total Bilirubin 0.3 mg/dL (0.2-1.3); Total Protein 6.4 g/dL (6.3-8.2)
[2021-10-09] MEDS: BACLOFEN 10 MG TAB PO PRN (08:43)
[2021-10-09] MEDS: ASPIRIN 81 MG PO SCH (08:44)
[2021-10-09] MEDS: ATORVASTATIN 80 MG TAB PO SCH (08:44)
[2021-10-09] MEDS: METOPROLOL TARTRATE 25 MG TAB PO SCH ×3 (08:44→20:42)
[2021-10-09] MEDS: LOSARTAN 50 MG TAB PO SCH (08:44)
[2021-10-09] MEDS: SPIRONOLACTONE-HCTZ 25-25MG 1 EACH TAB PO SCH (08:45)
--- NOTE | 2021-10-09 09:48 | P.PN ---
Subjective Progress Note Date: 10/09/21 Principal diagnosis: Multivessel coronary artery disease with distal left main disease, non-ST elevated myocardial infarction this admission. Past medical history significant for hypertension, diabetes mellitus type 2, asthma, COPD, morbid obesity, remote history of tobacco abuse quit smoking 20 years ago, obstructive sleep apnea, occasional marijuana use and methamphetamine use. The patient was seen in follow-up today on 10/09/2021 at her bedside on the cardiac stepdown unit. Currently she is sitting up to the bedside chair, is awake, alert and oriented 3. She is in no acute apparent distress. She denies any complaints of shortness of breath or chest pain or pressure. Oxygen saturations are 93% on room air and she is achieving 2250 mL on her incentive spirometry with encouragement. Preoperative teaching has been reinforced with the patient and she is currently scheduled for myocardial revascularization surgery with left internal mammary artery, endoscopic left radial harvest, and endoscopic vein harvest for 10/11/2021 to be performed by Dr. Ruben Brewer. Heparin drip continues infusing per protocol which is being managed by cardiology. She is also on aspirin, statin and beta marcos. She has been afebrile the last 24 hours. A troponin was repeated yesterday 10/08/2021 which shows that it was trending down at 1.260. Objective - Vital Signs Vital signs: Vital Signs Temp 98.1 F 10/09/21 04:00 Pulse 75 10/09/21 04:00 Resp 18 10/09/21 04:00 BP 101/62 10/09/21 04:00 Pulse Ox 93 L 10/09/21 04:00 Intake & Output 10/08/21 10/09/21 10/09/21 18:59 06:59 18:59 Intake Total 478 370 480 Balance 478 370 480 Weight 92.5 kg Intake: Intake, IV Titration 118 250 Amount Heparin Sod,Pork in 0.45% 118 NaCl 25,000 unit In 0.45 % NaCl 1 250ml.bag @ 10. 928 UNITS/KG/HR 9.999 mls /hr IV .Q24H [facility] Rx#: [id number] Sodium Chloride 0.9% 1, 250 000 ml In Empty Bag 1 bag @ 1 ML/KG/HR 91.5 mls/hr IV .[id number] [facility] Rx#: [id number] Oral 360 120 480 Other: Voiding Method Toilet Toilet # Voids 3 3 # Bowel Movements 2 - Exam CONSTITUTIONAL: Sitting up to the bedside chair on the cardiac stepdown unit, appears comfortable, cooperative, no apparent acute distress. HEENT: Neck is supple, no JVD, no lymphadenopathy. RESPIRATORY: Lungs sounds essentially clear throughout. Respirations are symmetrical and nonlabored. Currently on room air with oxygen saturations 93%. Able to achieve 2250 mL on her incentive spirometry. Strong cough. CARDIOVASCULAR: Regular rhythm and rate. S1 and S2 present, negative for S3, gallop or murmur. Sequential compression devices in place to her bilateral lower extremities. GASTROINTESTINAL: Abdomen soft, nontender, nondistended. Active bowel sounds present 4 quadrants. Tolerating diet. Passing flatus. No guarding or rigidity. GENITOURINARY: Continues to void. INTEGUMENTARY: Skin is warm and dry with no evidence of clubbing or cyanosis. NEUROLOGIC: No focal deficits. MUSKULOSKELETAL: Able to move all extremities, strength equal bilaterally. PSYCHIATRIC: Alert and oriented to person place and time, appropriate affect, intact judgment and insight. - Allied health notes Allied health notes reviewed: nursing - Labs CBC & Chem 7: 10/09/21 07:03 10/09/21 07:03 Labs: Abnormal Lab Results - Last 24 Hours (Table) 10/08/21 10/08/21 10/08/21 Range/Units 11:42 16:43 20:38 Hgb (11.4-16.0) gm/dL RDW (11.5-15.5) % Sodium (137-145) mmol/L Glucose (74-99) mg/dL POC Glucose (mg/dL) 162 H 118 H 179 H (75-99) mg/dL 10/09/21 10/09/21 10/09/21 Range/Units 06:23 07:03 07:03 Hgb 11.1 L (11.4-16.0) gm/dL RDW 17.6 H (11.5-15.5) % Sodium 134 L (137-145) mmol/L Glucose 144 H (74-99) mg/dL POC Glucose (mg/dL) 157 H (75-99) mg/dL Microbiology - Last 24 Hours (Table) 10/07/21 18:14 Nasal Screen MRSA/MSSA - Final Nasopharyngeal Swab Assessment and Plan Assessment: 1. Multivessel coronary artery disease with left main disease 2. Non-ST elevated myocardial infarction this admission 3. Type 2 diabetes mellitus 4. History of hypertension 5. Hyperlipidemia 6. History of asthma 7. History of COPD 8. Remote history of nicotine abuse, quit smoking over 20 years ago 9. Occasional marijuana use 10. Methamphetamine abuse 11. Obesity 12. Fibromyalgia 13. Osteoarthritis 14. Family history of coronary artery disease Plan: 1. Preoperative teaching has been reinforced with the patient and she has been given a preoperative open heart surgery book heart surgery: Road to a healthy heart. 2. Continue to optimize medical management with aspirin and statin and beta marcos. Okay from a cardiothoracic surgery standpoint to continue Cozaar as the patient is scheduled for an off-pump myocardial revascularization surgery. 3. She is scheduled for myocardial revascularization surgery with left internal mammary artery, endoscopic harvest of left radial artery, endoscopic vein harvest, intraoperative transesophageal echocardiogram and exclusion of left atrial appendage for 10/11/2021 to be performed by Dr. Ruben Brewer. 4. Continue to encourage use of her incentive spirometry 10 times every hour while awake. She is being followed by pulmonary/critical care medicine. 5. Medical management and other comorbidities primary care service. The patient is a diabetic with a preoperative hemoglobin A1c of 7.0%, she will need tight blood sugar control to promote wound healing and sternal union postopera tively. 6. The importance of risk modification has been discussed with the patient. 7. More recommendations to follow based on patient's clinical course. Time with Patient: Greater than 30
--- NOTE | 2021-10-09 11:16 | P.PN ---
Subjective Progress Note Date: 10/09/21 Mark Moore, he is a 71-year-old female who presented to [facility] emergency room with a chief complaint of worsening shortness of breath and chest discomfort. She was evaluated in the emergency room vital examination on presentation revealed a temperature of 97.7 pulse 127 respiration 26 blood pressure 148/104 pulse ox 100% on room air Laboratory data revealed a white blood count of 16.1 hemoglobin 14.8 platelet count 509 sodium 134 potassium 4.1 chloride 96 CO2 16 BUN 16 creatinine 0.9 glucose level was 182 troponin level was elevated at 0.146 plasma lactic acid was elevated at 2.1 urine toxicology screen was positive for methamphetamine, benzodiazepine, and marijuana. Testing in the emergency room revealed CT angiogram of the chest revealed no evidence of acute pulmonary embolism, EKG revealed left bundle branch block Patient was admitted to medical floor for further evaluation and treatment, she was started on IV heparin cardiology and pulmonary consultation were requested. Past medical history is significant for history of hypertension, history of hyperlipidemia, history of anxiety disorder, history of restless leg syndrome, history of diabetes mellitus type 2, history of asthma, history of obstructive sleep apnea, and previous history of smoking. On 10/08/2021 patient underwent cardiac catheterization revealing multivessel disease. Cardiothoracic surgery is following plans for coronary artery bypass graft surgery on Monday. Patient remains on heparin drip. At this time patient denies chest pain or shortness breath. Patient denies nausea vomiting or diarrhea. Pulmonary and cardiology services also following. Preoperative workup in progress per cardiothoracic surgery On 10/09/2021atient was seen and examined on the medical floor, she is alert and oriented x 3 in no distress, she denies any complaints there is no fever or chills no headache or dizziness no chest pain no shortness of breath no palpitation no cough no nausea or vomiting no abdominal pain no diarrhea no blood in the stools no burning with urination no frequency or urgency and no hematuria, there is no weakness or numbness in any of the extremities no change in vision speech or gait. Plan is for coronary artery bypass graft surgery on Monday. Patient understands condition and plans well. Objective - Vital Signs Vital signs: Vital Signs Temp 98.1 F 10/09/21 04:00 Pulse 75 10/09/21 04:00 Resp 18 10/09/21 04:00 BP 101/62 10/09/21 04:00 Pulse Ox 93 L 10/09/21 04:00 Intake & Output 10/08/21 10/09/21 10/09/21 18:59 06:59 18:59 Intake Total 478 370 480 Balance 478 370 480 Weight 92.5 kg Intake: Intake, IV Titration 118 250 Amount Heparin Sod,Pork in 0.45% 118 NaCl 25,000 unit In 0.45 % NaCl 1 250ml.bag @ 10. 928 UNITS/KG/HR 9.999 mls /hr IV .Q24H [facility] Rx#: [id number] Sodium Chloride 0.9% 1, 250 000 ml In Empty Bag 1 bag @ 1 ML/KG/HR 91.5 mls/hr IV .[id number] [facility] Rx#: [id number] Oral 360 120 480 Other: Voiding Method Toilet Toilet # Voids 3 3 # Bowel Movements 2 - Exam In general patient is alert and oriented x 3 in no distress HEENT head normocephalic and atraumatic Neck is supple no JVD no goiter no lymphadenopathy no carotid bruit Chest examination is clear to auscultation no crackles no wheezing Cardiac exam reveals regular heart sounds S1 and S2 no gallops no murmurs Abdomen is soft nontender no organomegaly with normal bowel sounds Extremity exam reveals no edema no cyanosis or clubbing Neurological examination reveals no gross focal deficits - Labs CBC & Chem 7: 10/09/21 07:03 10/09/21 07:03 Labs: Abnormal Lab Results - Last 24 Hours (Table) 10/08/21 10/08/21 10/08/21 Range/Units 11:42 16:43 20:38 Hgb (11.4-16.0) gm/dL RDW (11.5-15.5) % Sodium (137-145) mmol/L Glucose (74-99) mg/dL POC Glucose (mg/dL) 162 H 118 H 179 H (75-99) mg/dL 10/09/21 10/09/21 10/09/21 Range/Units 06:23 07:03 07:03 Hgb 11.1 L (11.4-16.0) gm/dL RDW 17.6 H (11.5-15.5) % Sodium 134 L (137-145) mmol/L Glucose 144 H (74-99) mg/dL POC Glucose (mg/dL) 157 H (75-99) mg/dL Microbiology - Last 24 Hours (Table) 10/07/21 18:14 Nasal Screen MRSA/MSSA - Final Nasopharyngeal Swab Assessment and Plan Plan: Acute non-ST elevation myocardial infarction Severe coronary artery disease with triple-vessel coronary artery disease. Cardiothoracic surgery is following plans for coronary artery bypass Surgery on 10/11/2021 patient remains on heparin drip Shortness of breath, could be related to acute myocardial infarction, however no evidence of pulmonary congestion on chest x-ray, and no elevation in BNP, possibility of acute asthma exacerbation. Pulmonary services are following Toxicology screen positive for methamphetamine and marijuana use Underlying history of hypertension Underlying history of hyperlipidemia Underlying history of diabetes mellitus type 2 with check hemoglobin A1c Plans for coronary artery bypass graft surgery on 10/11/2021 Patient maintained on heparin drip Cardiology, pulmonary and cardiothoracic surgery are following Preoperative workup in progress per cardiothoracic surgery
[2021-10-09] MEDS: MUPIROCIN 2% OINT 22 GM TUBE NASAL SCH ×2 (11:36→20:40)
[2021-10-09 11:59] LABS: Glucose,Whole Blood 146 mg/dL (75-99)
--- NOTE | 2021-10-09 12:08 | PN ---
PROGRESS NOTE Mrs. Moore is a 71-year-old female who presented with ina-PD-ccgqacd-elevation myocardial infarction, underwent cardiac catheterization and was found to have critical stenosis involving the ostium of the LAD and the ostium of the left circumflex as well as the right PDA. She is scheduled to undergo coronary artery bypass grafting on Monday. She is feeling well this morning. She is denying any chest pain. She denies any dizziness or palpitations. She denies any nausea. She continues to be in sinus mechanism and has been maintained on IV heparin. In addition to that she is on aspirin once a day, Lipitor 80 mg daily, losartan 100 mg daily, metoprolol tartrate 25 mg 3 times a day, Aldactazide 25 daily. PHYSICAL EXAMINATION: Blood pressure running in the 100s with a heart rate in the 70s. LUNGS: Clear. HEART: Regular rate and rhythm. S1, S2. No S3. No rub appreciated, with a systolic murmur. ABDOMEN: Soft and nontender. EXTREMITIES: No edema. LAB DATA: Lab data revealed BUN and creatinine of 8 and 0.59, potassium 3.9, sodium 134. IMPRESSION: 1. Mse-MK-zkcahrq-elevation myocardial infarction. 2. Severe triple-vessel coronary artery disease. 3. Hypertension. 4. Hyperlipidemia. 5. Diabetes mellitus. 6. Ischemic cardiomyopathy. RECOMMENDATIONS: I will stop the Aldactazide at this point because of the low blood pressure. Continue the rest of the medical regimen. Will continue IV heparin and proceed with surgical intervention as planned on Monday. MMODL / IJN: [id number] /
--- NOTE | 2021-10-09 15:23 | P.PN ---
Subjective Progress Note Date: 10/09/21 Principal diagnosis: Coronary artery disease. Pulmonary consult dated 10/07/2021. 71-year-old female, who presented to the emergency department, on October 06, complaining of shortness of breath. She apparently presented to the emergency department, with complaints of shortness of breath was started the day of admission to the ER. She felt like she took a deep breath, she had pain in her chest. It was limiting her ability to take a deep breath. The patient did smoke in the past for about 10 years. She does smoke marijuana occasionally. More recently, the patient had a cardiac catheterization today, which showed severe multivessel disease. The patient is being evaluated for possible bypass grafting. Her chest x-ray was negative for acute disease. Her CT angiogram was negative for pulmonary embolism. Currently, she is on room air, and she is getting saline at 75 mL an hour. Her cardiac catheterization took place today, on October 07. She had laboratory data today including a white count of 10.9, hemoglobin 13.3, hematocrit 42.4, and a platelet count of 376,000. Sodium 132, potassium 4.6, chlorides 100, CO2 22, BUN 13, with a creatinine of 0.69. She has a history of diabetes, asthma, fibromyalgia, hyperlipidemia, hypertension, osteoarthritis, sleep apnea syndrome. She does smoke marijuana, and a previous history of methamphetamine use. Progress note dated 10/08/2021. Apparently, the patient tells me that she'll have her open heart procedure done on Monday. Her cardiac catheterization showed severe multivessel disease. The patient is doing well from the pulmonary standpoint. She denies any shortness of breath, chest tightness, cough, wheezing, or phlegm production. She does smoke marijuana in did smoke cigarettes for a few years many years ago. She has a history of diabetes, asthma, fibromyalgia, hyperlipidemia, hypertension, and osteoarthritis. She also has a history of sleep apnea syndrome. She's currently resting comfortably. She's getting saline at 75 mL an hour. She's not receiving any supplemental oxygen. She was seen in consultation yesterday. White count 8.2, hemoglobin 11.8, hematocrit 38.4, platelet count 285,000. PTT was 62.3. Sodium 134, potassium 4, chlorides 103, CO2 24, anion gap 7, BUN 12, creatinine 0.64. Troponins 1.260. Progress note dated 10/09/2021. The patient is scheduled to have open heart surgery on Monday. I believe Dr. Brewer would do the surgery. Clinically, the patient is very stable. She's on room air. She's getting saline at 25 mL an hour. She's also on IV heparin. She denies any shortness of breath, difficulty breathing, chest pain, chest tightness, cough, wheezing, phlegm production. White count 7.3, hemoglobin 11.1, hematocrit 35, platelet count 274,000. Sodium 134, potassium 3.9, chlorides 102, CO2 23, anion gap 9, BUN 8, and creatinine 0.59. Objective - Vital Signs Vital signs: Vital Signs Temp 97.8 F 10/09/21 08:00 Pulse 78 10/09/21 08:00 Resp 20 10/09/21 08:00 BP 90/58 10/09/21 08:00 Pulse Ox 93 L 10/09/21 08:00 Intake & Output 10/08/21 10/09/21 10/09/21 18:59 06:59 18:59 Intake Total 478 370 598 Balance 478 370 598 Weight 92.5 kg Intake: Intake, IV Titration 118 250 Amount Heparin Sod,Pork in 0.45% 118 NaCl 25,000 unit In 0.45 % NaCl 1 250ml.bag @ 10. 928 UNITS/KG/HR 9.999 mls /hr IV .Q24H [facility] Rx#: [id number] Sodium Chloride 0.9% 1, 250 000 ml In Empty Bag 1 bag @ 1 ML/KG/HR 91.5 mls/hr IV .[id number] [facility] Rx#: [id number] Oral 360 120 598 Other: Voiding Method Toilet Toilet # Voids 3 3 2 # Bowel Movements 2 - Exam No acute distress, oriented 3. Currently on room air. Saturations are 95%. HEENT examination is grossly unremarkable. Neck supple. Full range of motion. No adenopathy thyromegaly or neck vein distention. Cardiovascular examination reveals regular rhythm rate. S1-S2 normal. No S3 or S4. No discernible murmur noted. Heart rate 78 bpm. Lungs reveal clear breath sounds. Breath sounds are equal bilaterally. No adventitious lung sounds including wheezes rhonchi or crackles. Abdomen soft bowel sounds are heard. No masses or tenderness. Extremities are intact. No cyanosis clubbing or edema. Skin is without rash or lesion. Neurologic examination is brief but nonfocal. - Labs CBC & Chem 7: 10/09/21 07:03 10/09/21 07:03 Labs: Abnormal Lab Results - Last 24 Hours (Table) 10/08/21 10/08/21 10/09/21 Range/Units 16:43 20:38 06:23 Hgb (11.4-16.0) gm/dL RDW (11.5-15.5) % Sodium (137-145) mmol/L Glucose (74-99) mg/dL POC Glucose (mg/dL) 118 H 179 H 157 H (75-99) mg/dL 10/09/21 10/09/21 10/09/21 Range/Units 07:03 07:03 11:57 Hgb 11.1 L (11.4-16.0) gm/dL RDW 17.6 H (11.5-15.5) % Sodium 134 L (137-145) mmol/L Glucose 144 H (74-99) mg/dL POC Glucose (mg/dL) 146 H (75-99) mg/dL Microbiology - Last 24 Hours (Table) 10/07/21 18:14 Nasal Screen MRSA/MSSA - Final Nasopharyngeal Swab Assessment and Plan Assessment: Severe obstructive coronary artery disease involving the distal left main, ostium of the LAD, the left circumflex, as well as a right PDA. Doubt significant intrinsic pulmonary disease. History of hypertension. History of hyperlipidemia. History of diabetes mellitus. History of prior methamphetamine use. Occasional marijuana use. 10 years of previous cigarette use. Obesity. Fibromyalgia. Osteoarthritis. History of sleep apnea syndrome. Plan: Plan dated 10/07/2021. The patient denies any pulmonary complaints chronically, such as shortness of breath, coughing, wheezing, or phlegm production. The patient does smoke marijuana from time to time, and did smoke cigarettes for about 10 years. I will await the pulmonary function testing, to give her an operative risk. I suspect, that she has minimal chronic lung disease. Additional recommendations and suggestions are forthcoming. Chest x-ray do not show anything in the way of acute disease. CT angiogram was negative for pulmonary embolism. Plan dated 10/08/2021. The patient is doing well from the pulmonary standpoint. She denies any pulmonary complaints including shortness of breath, chest tightness, cough, wheezing, or phlegm production. She is denying any chest pain at the current time. She's not requiring any supplemental oxygen. She's getting saline at 75 mL an hour. We will continue to follow. Apparently, she will have her open heart procedure on Monday. I did explain to her that our purpose as lung doctors are to initially get her off the ventilator, and then to follow her and consecutive days post surgery, to make sure that her lungs today healthy. Plan dated 10/09/2021. On the pulmonary standpoint, the patient's doing well. She is on room air. She's getting saline at 25 mL an hour. She is on IV heparin. Surgeries plan for Monday. Dr. Brewer will be the surgeon. From the pulmonary standpoint, the patient's doing well. CT angiogram was negative for pulmonary embolism. We will continue to follow and make recommendations where appropriate. Time with Patient: Less than 30
[2021-10-09 16:33] LABS: Glucose,Whole Blood 144 mg/dL (75-99)
[2021-10-09 20:10] LABS: Glucose,Whole Blood 168 mg/dL (75-99)
[2021-10-09] MEDS: HEPARIN SOD,PORK IN 0.45% NACL 25,000 UNIT in 0.45% NACL 1 250ML.BAG IV SCH (23:42)
[2021-10-10 06:23] LABS: Glucose,Whole Blood 156 mg/dL (75-99)
[2021-10-10] MEDS: SODIUM CHLORIDE 0.9% 1,000 ML in EMPTY BAG 1 BAG IV SCH ×2 (06:50→16:10)
[2021-10-10] MEDS: INSULIN ASPART (NovoLOG) 100 UNIT/ML VIAL SQ SCH ×4 (06:50→22:27)
[2021-10-10 08:23] LABS: Anisocytosis Slight; Basophils # (A) 0.1 k/uL (0-0.2); Basophils % (A) 1 %; Eosinophils # (A) 0.3 k/uL (0-0.7); Eosinophils % (A) 4 %; HCT 35.7 % (34.0-46.0); HGB 11.2 gm/dL (11.4-16.0); Hypochromasia Slight; Lymphocytes # (A) 2.2 k/uL (1.0-4.8); Lymphocytes % (A) 28 %; MCH 26.5 pg (25.0-35.0); MCHC 31.4 g/dL (31.0-37.0); MCV 84.3 fL (80.0-100.0); Mean Platelet Volume 7.5; Monocytes # (A) 0.4 k/uL (0-1.0); Monocytes % (A) 5 %; Neutrophils # (A) 4.9 k/uL (1.3-7.7); Neutrophils % (A) 62 %; Platelet Count 270 k/uL (150-450); RBC 4.23 m/uL (3.80-5.40); WBC 7.9 k/uL (3.8-10.6)
[2021-10-10 08:44] LABS: ALT 15 U/L (4-34); AST 20 U/L (14-36); African American GFR (CKD) >90 (>60 ml/min/1.73 sqM); Albumin 3.5 g/dL (3.5-5.0); Alkaline Phosphatase 77 U/L (38-126); Anion Gap 11 mmol/L; Blood Urea Nitrogen 9 mg/dL (7-17); Calcium 8.7 mg/dL (8.4-10.2); Carbon Dioxide 25 mmol/L (22-30); Chloride 101 mmol/L (98-107); Glucose 204 mg/dL (74-99); Non-African American GFR(CKD) >90 (>60 ml/min/1.73 sqM); Potassium 3.8 mmol/L (3.5-5.1); Sodium 137 mmol/L (137-145); Total Bilirubin 0.3 mg/dL (0.2-1.3); Total Protein 6.3 g/dL (6.3-8.2)
[2021-10-10] MEDS: METOPROLOL TARTRATE 25 MG TAB PO SCH ×3 (08:48→22:31)
[2021-10-10] MEDS: BACLOFEN 10 MG TAB PO PRN (08:48)
[2021-10-10] MEDS: ASPIRIN 81 MG PO SCH (08:49)
[2021-10-10] MEDS: ATORVASTATIN 80 MG TAB PO SCH (08:49)
[2021-10-10] MEDS: LOSARTAN 50 MG TAB PO SCH (08:49)
--- NOTE | 2021-10-10 09:01 | P.PN ---
Subjective Progress Note Date: 10/10/21 Principal diagnosis: Multivessel coronary artery disease with distal left main disease, non-ST elevated myocardial infarction this admission. Past medical history significant for hypertension, diabetes mellitus type 2, asthma, COPD, morbid obesity, remote history of tobacco abuse quit smoking 20 years ago, obstructive sleep apnea, occasional marijuana use and methamphetamine use. The patient was seen in follow-up today on 10/10/2021 at her bedside on the cardiac stepdown unit. Currently she is sitting up to the bedside chair, is awake, alert and oriented 3. She is in no acute apparent distress. She continues to deny any complaints of shortness of breath or chest pain or pressure within the last 24 hours. Oxygen saturations are 97% on room air and she is achieving 2250 mL on her incentive spirometry with encouragement. Preoperative teaching has been reinforced with the patient and she is currently scheduled tomorrow 10/11/2021 for myocardial revascularization surgery with left internal mammary artery, endoscopic left radial harvest, and endoscopic vein harvest to be performed by Dr. Ruben Brewer. Heparin drip continues infusing per protocol which is being managed by cardiology, heparin drip will be discontinued tomorrow morning at 5 AM. She is also on aspirin, statin and beta marcos. She had been afebrile the last 24 hours. She reports she has been up ambulating in the room. Objective - Vital Signs Vital signs: Vital Signs Temp 97.7 F 10/09/21 20:00 Pulse 79 10/10/21 04:00 Resp 18 10/10/21 04:00 BP 115/67 10/10/21 04:00 Pulse Ox 97 10/10/21 04:00 Intake & Output 10/09/21 10/10/21 10/10/21 18:59 06:59 18:59 Intake Total 1078 970 480 Balance 1078 970 480 Weight 92.5 kg Intake: Oral 1078 970 480 Other: Voiding Method Toilet Toilet # Voids 2 1 - Exam CONSTITUTIONAL: Sitting up to the bedside chair on the cardiac stepdown unit, appears comfortable, cooperative, no apparent acute distress. HEENT: Neck is supple, no JVD, no lymphadenopathy. RESPIRATORY: Lungs sounds essentially clear throughout. Respirations are symmetrical and nonlabored. Currently on room air with oxygen saturations 97%. Able to achieve 2250 mL on her incentive spirometry. Strong cough. CARDIOVASCULAR: Regular rhythm and rate. S1 and S2 present, negative for S3, gallop or murmur. Sequential compression devices in place to her bilateral lower extremities. GASTROINTESTINAL: Abdomen soft, nontender, nondistended. Active bowel sounds present 4 quadrants. Tolerating diet. Passing flatus. No guarding or rigidity. GENITOURINARY: Continues to void. INTEGUMENTARY: Skin is warm and dry with no evidence of clubbing or cyanosis. NEUROLOGIC: No focal deficits. MUSKULOSKELETAL: Able to move all extremities, strength equal bilaterally. PSYCHIATRIC: Alert and oriented to person place and time, appropriate affect, intact judgment and insight. - Allied health notes Allied health notes reviewed: nursing - Labs CBC & Chem 7: 10/10/21 07:58 10/10/21 07:58 Labs: Abnormal Lab Results - Last 24 Hours (Table) 10/09/21 10/09/21 10/09/21 Range/Units 11:57 16:31 20:09 Hgb (11.4-16.0) gm/dL RDW (11.5-15.5) % Glucose (74-99) mg/dL POC Glucose (mg/dL) 146 H 144 H 168 H (75-99) mg/dL 10/10/21 10/10/21 10/10/21 Range/Units 06:22 07:58 07:58 Hgb 11.2 L (11.4-16.0) gm/dL RDW 18.0 H (11.5-15.5) % Glucose 204 H (74-99) mg/dL POC Glucose (mg/dL) 156 H (75-99) mg/dL Assessment and Plan Assessment: 1. Multivessel coronary artery disease with left main disease 2. Non-ST elevated myocardial infarction this admission 3. Type 2 diabetes mellitus 4. History of hypertension 5. Hyperlipidemia 6. History of asthma 7. History of COPD 8. Remote history of nicotine abuse, quit smoking over 20 years ago 9. Occasional marijuana use 10. Methamphetamine abuse 11. Obesity 12. Fibromyalgia 13. Osteoarthritis 14. Family history of coronary artery disease Plan: 1. Preoperative teaching has been reinforced with the patient. 2. Continue to optimize medical management with aspirin and statin and beta marcos. Okay from a cardiothoracic surgery standpoint to continue Cozaar as the patient is scheduled for an off-pump myocardial revascularization surgery. 3. She is scheduled for myocardial revascularization surgery with left internal mammary artery, endoscopic harvest of left radial artery, endoscopic vein harvest, intraoperative transesophageal echocardiogram and exclusion of left atrial appendage tomorrow, 10/11/2021 to be performed by Dr. Ruben Brewer. 4. Continue to encourage use of her incentive spirometry 10 times every hour while awake. She is being followed by pulmonary/critical care medicine. 5. Medical management and other comorbidities primary care service. The patient is a diabetic with a preoperative hemoglobin A1c of 7.0%, she will need tight blood sugar control to promote wound healing and sternal union postoperatively. 6. The importance of risk modification has been reinforced with the patient. 7. She will be nothing by mouth after midnight. 8. Please turn the heparin drip off at 5 AM 10/11/2021. 9. More recommendations to follow based on patient's clinical course. Time with Patient: Greater than 30
--- NOTE | 2021-10-10 10:54 | P.PN ---
Subjective Progress Note Date: 10/10/21 Mark Moore, he is a 71-year-old female who presented to [facility] emergency room with a chief complaint of worsening shortness of breath and chest discomfort. She was evaluated in the emergency room vital examination on presentation revealed a temperature of 97.7 pulse 127 respiration 26 blood pressure 148/104 pulse ox 100% on room air Laboratory data revealed a white blood count of 16.1 hemoglobin 14.8 platelet count 509 sodium 134 potassium 4.1 chloride 96 CO2 16 BUN 16 creatinine 0.9 glucose level was 182 troponin level was elevated at 0.146 plasma lactic acid was elevated at 2.1 urine toxicology screen was positive for methamphetamine, benzodiazepine, and marijuana. Testing in the emergency room revealed CT angiogram of the chest revealed no evidence of acute pulmonary embolism, EKG revealed left bundle branch block Patient was admitted to medical floor for further evaluation and treatment, she was started on IV heparin cardiology and pulmonary consultation were requested. Past medical history is significant for history of hypertension, history of hyperlipidemia, history of anxiety disorder, history of restless leg syndrome, history of diabetes mellitus type 2, history of asthma, history of obstructive sleep apnea, and previous history of smoking. On 10/08/2021 patient underwent cardiac catheterization revealing multivessel disease. Cardiothoracic surgery is following plans for coronary artery bypass graft surgery on Monday. Patient remains on heparin drip. At this time patient denies chest pain or shortness breath. Patient denies nausea vomiting or diarrhea. Pulmonary and cardiology services also following. Preoperative workup in progress per cardiothoracic surgery On 10/09/2021atient was seen and examined on the medical floor, she is alert and oriented x 3 in no distress, she denies any complaints there is no fever or chills no headache or dizziness no chest pain no shortness of breath no palpitation no cough no nausea or vomiting no abdominal pain no diarrhea no blood in the stools no burning with urination no frequency or urgency and no hematuria, there is no weakness or numbness in any of the extremities no change in vision speech or gait. Plan is for coronary artery bypass graft surgery on Monday. Patient understands condition and plans well. On 10/10/2021 patient is alert and oriented 3 resting comfortably in bed. Pat ient denies chest pain or shortness breath. Patient denies nausea vomiting or diarrhea. Patient denies any urinary burning or frequency. Patient remains on IV heparin. Plans for coronary artery bypass graft surgery tomorrow 10/11/[address] Brewer Objective - Vital Signs Vital signs: Vital Signs Temp 97.7 F 10/09/21 20:00 Pulse 79 10/10/21 04:00 Resp 18 10/10/21 04:00 BP 115/67 10/10/21 04:00 Pulse Ox 97 10/10/21 04:00 Intake & Output 10/09/21 10/10/21 10/10/21 18:59 06:59 18:59 Intake Total 1078 970 480 Balance 1078 970 480 Weight 92.5 kg Intake: Oral 1078 970 480 Other: Voiding Method Toilet Toilet # Voids 2 1 - Exam In general patient is alert and oriented x 3 in no distress HEENT head normocephalic and atraumatic Neck is supple no JVD no goiter no lymphadenopathy no carotid bruit Chest examination is clear to auscultation no crackles no wheezing Cardiac exam reveals regular heart sounds S1 and S2 no gallops no murmurs Abdomen is soft nontender no organomegaly with normal bowel sounds Extremity exam reveals no edema no cyanosis or clubbing Neurological examination reveals no gross focal deficits - Labs CBC & Chem 7: 10/10/21 07:58 10/10/21 07:58 Labs: Abnormal Lab Results - Last 24 Hours (Table) 10/09/21 10/09/21 10/09/21 Range/Units 11:57 16:31 20:09 Hgb (11.4-16.0) gm/dL RDW (11.5-15.5) % Glucose (74-99) mg/dL POC Glucose (mg/dL) 146 H 144 H 168 H (75-99) mg/dL Crossmatch 10/10/21 10/10/21 10/10/21 Range/Units 06:22 07:58 07:58 Hgb 11.2 L (11.4-16.0) gm/dL RDW 18.0 H (11.5-15.5) % Glucose (74-99) mg/dL POC Glucose (mg/dL) 156 H (75-99) mg/dL Crossmatch See Detail 10/10/21 Range/Units 07:58 Hgb (11.4-16.0) gm/dL RDW (11.5-15.5) % Glucose 204 H (74-99) mg/dL POC Glucose (mg/dL) (75-99) mg/dL Crossmatch Assessment and Plan Plan: Acute non-ST elevation myocardial infarction Severe coronary artery disease with triple-vessel coronary artery disease. Cardiothoracic surgery is following plans for coronary artery bypass Surgery on 10/11/2021 patient remains on heparin drip Shortness of breath, could be related to acute myocardial infarction, however no evidence of pulmonary congestion on chest x-ray, and no elevation in BNP, possibility of acute asthma exacerbation. Pulmonary services are following Toxicology screen positive for methamphetamine and marijuana use Underlying history of hypertension Underlying history of hyperlipidemia Underlying history of diabetes mellitus type 2 with check hemoglobin A1c Plans for coronary artery bypass graft surgery on 10/11/2021 Patient maintained on heparin drip Cardiology, pulmonary and cardiothoracic surgery are following Preoperative workup in progress per cardiothoracic surgery
[2021-10-10 11:41] LABS: Glucose,Whole Blood 121 mg/dL (75-99)
--- NOTE | 2021-10-10 12:09 | PN ---
PROGRESS NOTE Mrs Moore is a 71-year-old female with a history of hypertension, hyperlipidemia, diabetes mellitus, who presented with an acute non STEMI, was found to have critical stenosis involving the ostium of the LAD, left circumflex as well as moderate disease in the distal left main. She is scheduled to undergo coronary artery bypass grafting tomorrow. She is doing well this morning. She denies any symptoms of chest pain. She denies any dizziness or palpitation. She denies any nausea. She continues to be on IV heparin. In addition to that, she is on aspirin once a day, Lipitor 80 mg daily and metoprolol tartrate 25 mg 3 times a day. PHYSICAL EXAMINATION: Blood pressure 115/60 with a heart rate in the 70s. Lungs: Clear. Heart regular rate and rhythm S1, S2. No S3. No rub. Abdomen: Soft nontender. Extremities: No edema. LAB DATA: Lab data revealed BUN and creatinine 9 and 0.63, potassium 3.8. IMPRESSION: 1. Non ST-segment elevation myocardial infarction. 2. Severe triple-vessel coronary artery disease scheduled for coronary artery bypass grafting tomorrow. 3. Hypertension. 4. Hyperlipidemia. 5. Diabetes mellitus. 6. Ischemic cardiomyopathy. RECOMMENDATIONS: We will continue present therapy. Proceed with surgery as planned and depending her progress, further recommendations will be made. MMJUAN ALBERTOL / MALGORZATAN: [id number] /
[2021-10-10] MEDS: MUPIROCIN 2% OINT 22 GM TUBE NASAL SCH ×2 (14:05→22:31)
--- NOTE | 2021-10-10 14:14 | P.PN ---
Subjective Progress Note Date: 10/10/21 Principal diagnosis: Coronary artery disease. Pulmonary consult dated 10/07/2021. 71-year-old female, who presented to the emergency department, on October 06, complaining of shortness of breath. She apparently presented to the emergency department, with complaints of shortness of breath was started the day of admission to the ER. She felt like she took a deep breath, she had pain in her chest. It was limiting her ability to take a deep breath. The patient did smoke in the past for about 10 years. She does smoke marijuana occasionally. More recently, the patient had a cardiac catheterization today, which showed severe multivessel disease. The patient is being evaluated for possible bypass grafting. Her chest x-ray was negative for acute disease. Her CT angiogram was negative for pulmonary embolism. Currently, she is on room air, and she is getting saline at 75 mL an hour. Her cardiac catheterization took place today, on October 07. She had laboratory data today including a white count of 10.9, hemoglobin 13.3, hematocrit 42.4, and a platelet count of 376,000. Sodium 132, potassium 4.6, chlorides 100, CO2 22, BUN 13, with a creatinine of 0.69. She has a history of diabetes, asthma, fibromyalgia, hyperlipidemia, hypertension, osteoarthritis, sleep apnea syndrome. She does smoke marijuana, and a previous history of methamphetamine use. Progress note dated 10/08/2021. Apparently, the patient tells me that she'll have her open heart procedure done on Monday. Her cardiac catheterization showed severe multivessel disease. The patient is doing well from the pulmonary standpoint. She denies any shortness of breath, chest tightness, cough, wheezing, or phlegm production. She does smoke marijuana in did smoke cigarettes for a few years many years ago. She has a history of diabetes, asthma, fibromyalgia, hyperlipidemia, hypertension, and osteoarthritis. She also has a history of sleep apnea syndrome. She's currently resting comfortably. She's getting saline at 75 mL an hour. She's not receiving any supplemental oxygen. She was seen in consultation yesterday. White count 8.2, hemoglobin 11.8, hematocrit 38.4, platelet count 285,000. PTT was 62.3. Sodium 134, potassium 4, chlorides 103, CO2 24, anion gap 7, BUN 12, creatinine 0.64. Troponins 1.260. Progress note dated 10/09/2021. The patient is scheduled to have open heart surgery on Monday. I believe Dr. Brewer would do the surgery. Clinically, the patient is very stable. She's on room air. She's getting saline at 25 mL an hour. She's also on IV heparin. She denies any shortness of breath, difficulty breathing, chest pain, chest tightness, cough, wheezing, phlegm production. White count 7.3, hemoglobin 11.1, hematocrit 35, platelet count 274,000. Sodium 134, potassium 3.9, chlorides 102, CO2 23, anion gap 9, BUN 8, and creatinine 0.59. Progress note dated 10/10/2021. The patient is scheduled to have open heart surgery tomorrow, with Dr. Brewer I believe. Currently, the patient's resting comfortably in room 373. She's not requiring any supplemental oxygen. She's on saline at 75 mL an hour, and IV heparin. Her white count of 7.9, hemoglobin 11.2, hematocrit 35.7, and platelet count 270,000. Sodium 137, potassium 3.8, chlorides 101, CO2 25, BUN 9, with a creatinine 0.63. Objective - Vital Signs Vital signs: Vital Signs Temp 97.7 F 10/09/21 20:00 Pulse 79 10/10/21 04:00 Resp 18 10/10/21 04:00 BP 115/67 10/10/21 04:00 Pulse Ox 97 10/10/21 04:00 Intake & Output 10/09/21 10/10/21 10/10/21 18:59 06:59 18:59 Intake Total 1078 970 480 Balance 1078 970 480 Weight 92.5 kg Intake: Oral 1078 970 480 Other: Voiding Method Toilet Toilet # Voids 2 1 - Exam No acute distress, oriented 3. Currently on room air. Saturations are 97%. HEENT examination is grossly unremarkable. Neck supple. Full range of motion. No adenopathy thyromegaly or neck vein distention. Cardiovascular examination reveals regular rhythm rate. S1-S2 normal. No S3 or S4. No discernible murmur noted. Heart rate 79 bpm. Lungs reveal clear breath sounds. Breath sounds are equal bilaterally. No adventitious lung sounds including wheezes rhonchi or crackles. Abdomen soft bowel sounds are heard. No masses or tenderness. Extremities are intact. No cyanosis clubbing or edema. Skin is without rash or lesion. Neurologic examination is brief but nonfocal. - Labs CBC & Chem 7: 10/10/21 07:58 10/10/21 07:58 Labs: Abnormal Lab Results - Last 24 Hours (Table) 10/09/21 10/09/21 10/10/21 Range/Units 16:31 20:09 06:22 Hgb (11.4-16.0) gm/dL RDW (11.5-15.5) % Glucose (74-99) mg/dL POC Glucose (mg/dL) 144 H 168 H 156 H (75-99) mg/dL Crossmatch 10/10/21 10/10/21 10/10/21 Range/Units 07:58 07:58 07:58 Hgb 11.2 L (11.4-16.0) gm/dL RDW 18.0 H (11.5-15.5) % Glucose 204 H (74-99) mg/dL POC Glucose (mg/dL) (75-99) mg/dL Crossmatch See Detail 10/10/21 Range/Units 11:40 Hgb (11.4-16.0) gm/dL RDW (11.5-15.5) % Glucose (74-99) mg/dL POC Glucose (mg/dL) 121 H (75-99) mg/dL Crossmatch Assessment and Plan Assessment: Severe obstructive coronary artery disease involving the distal left main, ostium of the LAD, the left circumflex, as well as a right PDA. Doubt significant intrinsic pulmonary disease. History of hypertension. History of hyperlipidemia. History of diabetes mellitus. History of prior methamphetamine use. Occasional marijuana use. 10 years of previous cigarette use. Obesity. Fibromyalgia. Osteoarthritis. History of sleep apnea syndrome. Plan: Plan dated 10/07/2021. The patient denies any pulmonary complaints chronically, such as shortness of breath, coughing, wheezing, or phlegm production. The patient does smoke marijuana from time to time, and did smoke cigarettes for about 10 years. I will await the pulmonary function testing, to give her an operative risk. I suspect, that she has minimal chronic lung disease. Additional recommendations and suggestions are forthcoming. Chest x-ray do not show anything in the way of acute disease. CT angiogram was negative for pulmonary embolism. Plan dated 10/08/2021. The patient is doing well from the pulmonary standpoint. She denies any pulmonary complaints including shortness of breath, chest tightness, cough, wheezing, or phlegm production. She is denying any chest pain at the current time. She's not requiring any supplemental oxygen. She's getting saline at 75 mL an hour. We will continue to follow. Apparently, she will have her open heart procedure on Monday. I did explain to her that our purpose as lung doctors are to initially get her off the ventilator, and then to follow her and consecutive days post surgery, to make sure that her lungs today healthy. Plan dated 10/09/2021. On the pulmonary standpoint, the patient's doing well. She is on room air. She's getting saline at 25 mL an hour. She is on IV heparin. Surgeries plan for Monday. Dr. Brewer will be the surgeon. From the pulmonary standpoint, the patient's doing well. CT angiogram was negative for pulmonary embolism. We will continue to follow and make recommendations where appropriate. Plan dated 10/10/2021. The patient is stable from the pulmonary standpoint. He is on room air. She denies any pulmonary complaints including shortness of breath, cough, wheezing, chest tightness, phlegm production, or any other complaints for that matter. The patient is on room air. The patient's receiving IV heparin. Her labs have been reviewed. She's to have surgery tomorrow. She will see my partner after t he surgery. Time with Patient: Less than 30
[2021-10-10] MEDS ORDERED: polyethylene glycoL 3350 17 GM POWD.PACK PO STA (15:22)
[2021-10-10 16:23] LABS: Glucose,Whole Blood 160 mg/dL (75-99)
[2021-10-10 20:36] LABS: Glucose,Whole Blood 177 mg/dL (75-99)
[2021-10-10] MEDS: HEPARIN SODIUM 1,000 UN/ML (10ML VL) IV PRN (21:24)
[2021-10-10] MEDS: DOCUSATE 100 MG CAP PO SCH (22:27)
[2021-10-11] MEDS: HEPARIN SOD,PORK IN 0.45% NACL 25,000 UNIT in 0.45% NACL 1 250ML.BAG IV SCH (01:49)
[2021-10-11] MEDS: ASPIRIN 81 MG PO SCH ×2 (04:48→13:03)
[2021-10-11] MEDS ORDERED: TRANEXAMIC ACID 2,000 MG in SODIUM CHLORIDE 0.9% 80 ML IV ONE (05:00)
[2021-10-11] MEDS ORDERED: SODIUM BICARB 8.4% 50 ML SYR (1 MEQ/ML) IV ONE (05:00)
[2021-10-11] MEDS ORDERED: NOREPINEPHRINE 4 MG in SODIUM CHLORIDE 0.9% 250 ML IV SCH (05:00)
[2021-10-11] MEDS ORDERED: ASPIRIN 325 MG TAB PO ONE (05:00)
[2021-10-11] MEDS ORDERED: CHLORHEXIDINE GLUCONATE 15 ML CUP MUCOUS MEM ONE (05:00)
[2021-10-11] MEDS ORDERED: PROTAMINE SULFATE 10 MG/ML 25 ML VIAL IV ONE (05:00)
[2021-10-11] MEDS ORDERED: NITROGLYCERIN-D5W PMX 25 MG/250 ML BTL IV ONE (05:00)
[2021-10-11] MEDS ORDERED: INSULIN REGULAR 100 UNIT in SODIUM CHLORIDE 0.9% 100 ML IV SCH (05:00)
[2021-10-11] MEDS ORDERED: METOPROLOL TARTRATE 12.5 MG TAB PO ONE (05:00)
[2021-10-11] MEDS ORDERED: PROTAMINE SULFATE 250 MG in EMPTY BAG 1 BAG IV ONE (05:00)
[2021-10-11] MEDS ORDERED: HEPARIN SODIUM 1,000 UN/ML (10ML VL) IV ONE (05:00)
[2021-10-11] MEDS ORDERED: ALBUMIN HUMAN 5% 500 ML in EMPTY BAG 1 BAG IVPB ONE ×6 (05:00)
[2021-10-11] MEDS ORDERED: ATORVASTATIN 10 MG TAB PO ONE (05:00)
[2021-10-11] MEDS ORDERED: CARDIOPLEGIC SOLN (K+ 16 MEQ/L 1,000 ML with SOD BICARB SYR 8.4% (1 MEQ/ML) 20 ML, LIDO... PERFUSION NR ×3 (05:00)
[2021-10-11] MEDS ORDERED: MAGNESIUM SULFATE 16.24 MEQ in EMPTY SYRINGE 1 SYR IV ONE (05:00)
[2021-10-11] MEDS ORDERED: DILTIAZEM 125 MG in SODIUM CHLORIDE 0.9% 100 ML IV SCH (05:00)
[2021-10-11] MEDS ORDERED: CLEVIDIPINE BUTYRATE 25 MG in EMPTY BAG 1 BAG IV SCH ×2 (05:00→14:20)
[2021-10-11] MEDS ORDERED: CALCIUM CHLORIDE 100 MG/ML 10 ML SYRINGE IVP ONE (05:00)
[2021-10-11] MEDS ORDERED: PHENYLEPHRINE 40 MG in SODIUM CHLORIDE 0.9% 250 ML IV ONE (05:00)
[2021-10-11] MEDS ORDERED: VANCOMYCIN 1,000 MG in SODIUM CHLORIDE 0.9% IRRIGATIO 1,000 ML IRRIGATION ONE (05:00)
[2021-10-11] MEDS ORDERED: NITROGLYCERIN-D5W PMX 50 MG in DEXTROSE/WATER 1 250ML.BAG IV SCH ×2 (05:00→14:45)
[2021-10-11] MEDS ORDERED: MANNITOL 25% 12.5 GM/50 ML VIAL IV ONE ×2 (05:00)
[2021-10-11] MEDS ORDERED: PAPAVERINE 360 MG in SODIUM CHLORIDE 0.9% 90 ML IV ONE (05:00)
[2021-10-11] MEDS ORDERED: PHENYLEPHRINE 10 MG/ML VIAL IV ONE (05:00)
[2021-10-11] MEDS ORDERED: VANCOMYCIN 1,500 MG in SODIUM CHLORIDE 0.9% 250 ML IVPB ONE (05:00)
[2021-10-11] MEDS ORDERED: ALBUMIN HUMAN 25% 50 ML in EMPTY BAG 1 BAG IVPB ONE (05:00)
[2021-10-11] MEDS ORDERED: HEPARIN SODIUM,PORCINE 5,000 UNIT in SODIUM CHLORIDE 0.9% 500 ML 500 ML IV ONE (05:00)
[2021-10-11 05:03] LABS: Glucose,Whole Blood 126 mg/dL (75-99)
[2021-10-11] MEDS ORDERED: LACTATED RINGERS 1,000 ML IV ONE (06:18)
[2021-10-11] MEDS ORDERED: SODIUM CHLORIDE 0.9% IRRIG 1,000 ML BTL IRRIGATION ONE (07:36)
[2021-10-11] MEDS ORDERED: PROTAMINE SULFATE 10 MG/ML 5 ML VIAL IV ONE (07:36)
[2021-10-11] MEDS ORDERED: PROPOFOL 10 MG/ML 20 ML VIAL IV ONE (07:36)
[2021-10-11] MEDS ORDERED: MIDAZOLAM 2 MG/2 ML VIAL ONE (07:36)
[2021-10-11] MEDS ORDERED: NITROGLYCERIN-D5W PMX 50 MG/250 ML BOTTLE IV ONE (07:36)
[2021-10-11] MEDS ORDERED: VECURONIUM 10 MG VIAL IV ONE (07:36)
[2021-10-11] MEDS ORDERED: fentaNYL (PF) 50 MCG/ML 50 ML VIAL ONE (07:36)
[2021-10-11] MEDS ORDERED: INSULIN REGULAR 100 UNIT/ML VIAL (IV) ONE (07:36)
[2021-10-11] MEDS ORDERED: fentaNYL (PF) 50 MCG/ML 2 ML AMP ONE (07:36)
[2021-10-11] MEDS ORDERED: PHENYLEPHRINE-0.9% NACL SYG 1,000 MCG/10 ML SYRINGE ONE (07:36)
[2021-10-11] MEDS ORDERED: HEPARIN SODIUM,PORCINE 10,000 UNIT/ML 1 ML VIAL ONE (07:36)
[2021-10-11] MEDS ORDERED: ALBUMIN HUMAN 5% (12.5gm) 250 ML BOTTLE IVPB ONE (07:36)
[2021-10-11 09:03] LABS: ABG Base Excess -1.7 mmol/L; ABG Glucose Whole Blood 114 mg/dL (75-99); ABG HCO3 22 mmol/L (21-25); ABG Hematocrit 28 % (34.0-46.0); ABG Ionized Calcium 4.5 mg/dL (4.5-5.3); ABG Lactic Acid Whole Blood 0.8 mmol/L (0.5-1.6); ABG Oxygen Saturation 99.3 % (94-97); ABG PCO2 35 mmHg (35-45); ABG PH 7.42 (7.35-7.45); ABG PO2 139 mmHg (83-108); ABG Potassium Whole Blood 3.3 mmol/L (3.4-4.5); ABG Sodium Whole Blood 140 mmol/L (135-146); ABG TCO2 23 mmol/L (19-24)
[2021-10-11 10:39] LABS: ABG Glucose Whole Blood 181 mg/dL (75-99); ABG HCO3 25 mmol/L (21-25); ABG Hematocrit 29 % (34.0-46.0); ABG Ionized Calcium 4.7 mg/dL (4.5-5.3); ABG Lactic Acid Whole Blood 0.5 mmol/L (0.5-1.6); ABG Oxygen Saturation 99.1 % (94-97); ABG PCO2 41 mmHg (35-45); ABG PO2 138 mmHg (83-108); ABG Potassium Whole Blood 3.9 mmol/L (3.4-4.5); ABG Sodium Whole Blood 138 mmol/L (135-146); ABG TCO2 26 mmol/L (19-24)
[2021-10-11 11:25] LABS: ABG Base Excess -0.2 mmol/L; ABG Glucose Whole Blood 151 mg/dL (75-99); ABG HCO3 25 mmol/L (21-25); ABG Hematocrit 28 % (34.0-46.0); ABG Ionized Calcium 4.7 mg/dL (4.5-5.3); ABG Oxygen Saturation 99.8 % (94-97); ABG PCO2 40 mmHg (35-45); ABG PO2 197 mmHg (83-108); ABG Potassium Whole Blood 3.7 mmol/L (3.4-4.5); ABG Sodium Whole Blood 138 mmol/L (135-146); ABG TCO2 26 mmol/L (19-24)
[2021-10-11 11:54] LABS: ABG Base Excess -0.3 mmol/L; ABG Glucose Whole Blood 145 mg/dL (75-99); ABG HCO3 24 mmol/L (21-25); ABG Hematocrit 28 % (34.0-46.0); ABG Ionized Calcium 4.7 mg/dL (4.5-5.3); ABG Lactic Acid Whole Blood 1.2 mmol/L (0.5-1.6); ABG Oxygen Saturation 99.7 % (94-97); ABG PCO2 39 mmHg (35-45); ABG PO2 195 mmHg (83-108); ABG Potassium Whole Blood 3.9 mmol/L (3.4-4.5); ABG Sodium Whole Blood 138 mmol/L (135-146); ABG TCO2 26 mmol/L (19-24)
[2021-10-11 12:33] LABS: ABG Base Excess -0.2 mmol/L; ABG Glucose Whole Blood 155 mg/dL (75-99); ABG HCO3 24 mmol/L (21-25); ABG Hematocrit 28 % (34.0-46.0); ABG Ionized Calcium 4.7 mg/dL (4.5-5.3); ABG Oxygen Saturation 99.6 % (94-97); ABG PCO2 37 mmHg (35-45); ABG PH 7.42 (7.35-7.45); ABG PO2 192 mmHg (83-108); ABG Potassium Whole Blood 4.1 mmol/L (3.4-4.5); ABG Sodium Whole Blood 138 mmol/L (135-146); ABG TCO2 25 mmol/L (19-24)
[2021-10-11] MEDS: SODIUM CHLORIDE 0.9% 1,000 ML in EMPTY BAG 1 BAG IV SCH (12:47)
[2021-10-11] MEDS: INSULIN ASPART (NovoLOG) 100 UNIT/ML VIAL SQ SCH ×2 (13:02→13:03)
[2021-10-11] MEDS: LOSARTAN 50 MG TAB PO SCH (13:03)
[2021-10-11] MEDS: METOPROLOL TARTRATE 25 MG TAB PO SCH (13:03)
[2021-10-11] MEDS: DOCUSATE 100 MG CAP PO SCH (13:03)
[2021-10-11] MEDS: MUPIROCIN 2% OINT 22 GM TUBE NASAL SCH (13:03)
[2021-10-11] MEDS: ATORVASTATIN 80 MG TAB PO SCH (13:03)
[2021-10-11 13:09] LABS: ABG Base Excess -0.9 mmol/L; ABG Glucose Whole Blood 161 mg/dL (75-99); ABG HCO3 23 mmol/L (21-25); ABG Hematocrit 27 % (34.0-46.0); ABG Ionized Calcium 4.6 mg/dL (4.5-5.3); ABG Lactic Acid Whole Blood 1.6 mmol/L (0.5-1.6); ABG Oxygen Saturation 97.8 % (94-97); ABG PCO2 36 mmHg (35-45); ABG PH 7.42 (7.35-7.45); ABG PO2 98 mmHg (83-108); ABG Potassium Whole Blood 4.1 mmol/L (3.4-4.5); ABG Sodium Whole Blood 137 mmol/L (135-146); ABG TCO2 25 mmol/L (19-24)
--- NOTE | 2021-10-11 13:49 | P.OP ---
Date of Procedure: 10/11/21 Preoperative Diagnosis: Coronary artery disease with unstable angina and subendocardial WI Postoperative Diagnosis: Same Procedure(s) Performed: Off-pump CABG 3 with sequential SIMPSON to LAD and intermediate and T graft left radial artery graft to first obtuse marginal. Ligation of left atrial appendage with 35 mm AtriCure clip. Endovascular radial artery harvest. Endovascular harvest of the right greater saphenous vein. Implants: 35mm AtriCure clip Anesthesia: GETA Surgeon: Ruben Brewer Athletic Turf Worker #1: Eleuterio Naik Athletic Turf Worker #2: Dixie Stoddard Estimated Blood Loss (ml): 200 IV fluids (ml): 2,000 Urine output (ml): 500 Pathology: none sent Condition: stable Disposition: ICU Indications for Procedure: 71-year-old female with presented with unstable angina and positive troponins. Cardiac catheterization demonstrated left main equivalent with tight proximal circumflex and LAD stenosis. The RCA was heavily calcified but not significantly stenotic. The PDA had disease and was significantly stenotic. Recommendation was for bypass of the LAD and intermediate and likely the first obtuse marginal and possibly the PDA. Operative Findings: Left internal mammary left radial artery and saphenous vein were all good conduits. The PDA was heavily calcified and not graftable. It was decided to use the SIMPSON sequentially to graft the LAD and intermediate and to use the radial artery as a T graft off the SIMPSON to graft the first obtuse marginal. BLANCHE findings: Left ventricular function was good. There is only mild mitral regurgitation. There was no evidence of thrombus in the left atrial appendage. Description of Procedure: The patient was brought to the operating room and placed supine on the operating table. General anesthesia was induced. BLANCHE probe was placed. Paulino catheter was placed. Monitoring lines been placed in the preop holding area. The anterior torso and left upper extremity and bilateral lower extremities were sterilely prepped and draped in standard fashion. Endovascular harvest was used to harvest the left radial artery and the right greater saphenous vein from ankle to knee. Conduits were prepared on the back table. Simultaneous sternotomy was performed, the left hemisternum was retracted upwards, the left internal mammary artery was harvested on a vascularized pedicle. There was an excellent conduit. The left pleural space was drained with 32-Icelandic chest tube. Standard sternal retractor was placed. Right pleural space was opened and the pericardium was opened in the midline. The heart was exposed with pericardial sutures. The grafts were planned with findings as noted above. Patient was systemically heparinized. A CTs were maintained greater than 250 during grafting. We began by anastomosing the left radial artery to the left internal mammary artery. This anastomosis was performed with running 8-0 Prolene suture. Seated without event and resulted in excellent flow out of both the SIMPSON and the radial artery with no evidence of stenosis. Was more than adequate length of both the SIMPSON and the radial artery. 35 mm AtriCure clip was applied to the base of the left atrial appendage. Next we performed a [id number] anastomosis of the SIMPSON to the LAD. The LAD was visible only at the apex. It was identified fairly proximally in the proximal third deep in the epicardial fat. Was opened and blood flow control with a 2 mm flow through. It was a 2.25 mm vessel. Side to side anastomosis between the SIMPSON and the LAD was with running 8-0 Prolene suture. Completion anastomosis the flow through was removed effectively probing the proximal distal portion of the anastomosis. Suture was tied with good result and hemostasis and the inflow was open. Excellent pulsation was noted in the SIMPSON distally. The JEANINE pedicle was tacked surrounding epicardium with 6-0 silk sutures. The anastomosis was noted to lie well with plenty of length and with no evidence of kinking or narrowing of the SIMPSON either prior to or after the anastomosis. Next the distal JEANINE was prepared cut to appropriate length. Flow was excellent. Intermediate coronary artery bifurcated fairly proximally. It was heavily calcified for touch of its length. The second branch was the larger of the 2 and this was followed out to a soft area. The SIMPSON easily reached year with good curvature and no kinking. The intermediate was stabilized and opened. It was a 1.75-2 mm vessel. Blood flow was controlled a 1.5 mm flow through. End to side anastomosis between the SIMPSON and the intermediate was performed with running 6 8-0 Prolene suture. On completion anastomosis the flow through was removed effectively probing the proximal distal portion anastomosis. Suture was tied with good result and hemostasis. Inflow was opened and again good hemostasis and good lie of the graft was noted. The JEANINE pedicle was tacked surrounding epicardium with 6-0 silk sutures. Next the first obtuse marginal coronary artery was identified. Heavily diseased proximally and this appeared intramyocardially. We dissected distally through the myocardium to exposed soft portion of the more distal portion of the vessel. Here was a 1.75-2 mm vessel. It was stabilized and opened and blood flow control with a 1.5 mm flow through. End to side anastomosis between the left radial artery and the first obtuse marginal coronary artery was performed with running 7-0 Prolene suture. On completion anastomosis the flow through was removed effectively probing the proximal distal portion anastomosis. Suture was tied with good result and hemostasis. Inflow was open the graft was noted to lay well. There was more than adequate length. There was no evidence of kinking. There was good hemostasis. Heart was lowered into anatomic position. Heparin was reversed with protamine and good hemostasis obtained throughout. After assuring good hemostasis the chest was irrigated with warm antibiotic solution. The mediastinum was drained with 36-Icelandic chest tube. Sternum was closed with 8 sternal wires. Was a fracture in the mid sternum and this was plated with a deeply and 4 screws. This yielded a very stable sternal closure. Fascia was closed with 0 Ethibond. Subcutaneous and subcuticular layers in the leg and chest and arm were all closed with layers of Vicryl suture. Skin glue and dry sterile dressings were applied. Patient was transferred to the ICU in stable condition. No inotropes were required and no blood transfusions were given.
[2021-10-11] MEDS ORDERED: ALBUMIN HUMAN 5% 500 ML IVPB ONE (13:50)
[2021-10-11] MEDS: DILTIAZEM 125 MG in SODIUM CHLORIDE 0.9% 100 ML IV SCH ×2 (14:00→22:56)
[2021-10-11] MEDS: LACTATED RINGERS 1,000 ML IV SCH (14:00)
[2021-10-11 14:07] LABS: Glucose,Whole Blood 156 mg/dL (75-99)
[2021-10-11 14:16] LABS: Glucose,Whole Blood 181 mg/dL (75-99)
[2021-10-11] MEDS ORDERED: METOCLOPRAMIDE 5 MG/ML 2 ML VIAL IVP PRN (14:20)
[2021-10-11] MEDS ORDERED: VANCOMYCIN IV PER PHARMACY 1 EACH MISC MISCELLANE PRN (14:20)
[2021-10-11] MEDS ORDERED: Phosphorus Replacement Protoco 1 EACH MISC MISCELLANE PRN (14:20)
[2021-10-11] MEDS ORDERED: IPRATROPIUM-ALBUTEROL 3 ML NEB INHALATION PRN (14:20)
[2021-10-11] MEDS ORDERED: AMIODARONE 360 MG in DEXTROSE 5% IN WATER 200 ML IV PRN ×2 (14:20)
[2021-10-11] MEDS ORDERED: Potassium Replacement Protocol 1 EACH MISC MISCELLANE PRN (14:20)
[2021-10-11] MEDS ORDERED: AMIODARONE 450 MG in DEXTROSE 5% IN WATER 250 ML IV PRN ×2 (14:20)
[2021-10-11] MEDS ORDERED: DEXTROSE 5% IN WATER 100 ML with AMIODARONE 150 MG IV PRN (14:20)
[2021-10-11] MEDS ORDERED: CALCIUM GLUCONATE 2 GM in SODIUM CHLORIDE 0.9% 100 ML IVPB PRN (14:20)
[2021-10-11] MEDS ORDERED: Magnesium Replacement Protocol 1 EACH MISC MISCELLANE PRN (14:20)
[2021-10-11] MEDS ORDERED: ONDANSETRON 4 MG/2 ML VIAL IVP PRN (14:20)
[2021-10-11] MEDS: INSULIN REGULAR 100 UNIT in SODIUM CHLORIDE 0.9% 100 ML IV SCH (14:30)
[2021-10-11 14:33] LABS: ABG Base Excess -1.7 mmol/L; ABG HCO3 25 mmol/L (21-25); ABG PCO2 56 mmHg (35-45); ABG PH 7.26 (7.35-7.45); ABG PO2 279 mmHg (83-108); ABG TCO2 27 mmol/L (19-24); Allen Test Performed? Yes
--- NOTE | 2021-10-11 14:39 | XR ---
EXAMINATION TYPE: XR chest 1V portable DATE OF EXAM: 10/11/2021 Comparison: 10/06/2021 Clinical History: 71-year-old female Post Operative Cardiac Surgery Findings: Right IJ [place]-Simona catheter. It appears looped within the main pulmonary outflow tract tip probably w ithin the proximal right main pulmonary artery. ET tube tip is estimated at 2 cm from the nahun. Con motorcyles final inspector pulling back 1 cm. NG tube sidehole is at the GE junction. Advancement by 3 cm further into the stomach. Mediastinal drains. Left-sided chest tube. No appreciable pneumothorax. Median sternotomy w ires and post-CABG clips in the mediastinum. Heart borderline enlarged. Mild interstitial prominence. Trace right effusion with blunted right costophrenic angle. Patchy retrocardiac and left basilar opa city. Impression: 1. Correlate for mild pulmonary vascular congestion. 2. Findings suggest trace right pleural effusion and patchy postoperative retrocardiac and left basil ar atelectasis. 3. ET tube tip approximately 2 cm from the nahun. Pull back 1 cm and reassess at follow-up. 4. Consider advancing the NG tube by 3 cm so that the sidehole enters the stomach.
[2021-10-11 14:49] LABS: Anisocytosis Slight; Basophils # (A) 0.1 k/uL (0-0.2); Basophils % (A) 0 %; Eosinophils # (A) 0.1 k/uL (0-0.7); Eosinophils % (A) 0 %; HCT 29.9 % (34.0-46.0); Hypochromasia Slight; Ionized Calcium 5.1 mg/dL (4.5-5.3); Lymphocytes # (A) 1.2 k/uL (1.0-4.8); Lymphocytes % (A) 10 %; MCH 26.4 pg (25.0-35.0); MCHC 31.5 g/dL (31.0-37.0); MCV 83.7 fL (80.0-100.0); Mean Platelet Volume 8.1; Monocytes # (A) 0.5 k/uL (0-1.0); Monocytes % (A) 4 %; Neutrophils # (A) 10.7 k/uL (1.3-7.7); Neutrophils % (A) 85 %; Platelet Count 283 k/uL (150-450); RBC 3.57 m/uL (3.80-5.40); RDW 17.9 % (11.5-15.5); WBC 12.6 k/uL (3.8-10.6)
[2021-10-11 14:56] LABS: HGB 9.4 gm/dL (11.4-16.0)
[2021-10-11 15:06] LABS: Prothrombin Time 10.7 sec (9.0-12.0)
[2021-10-11 15:07] LABS: ALT 18 U/L (4-34); AST 27 U/L (14-36); African American GFR (CKD) >90 (>60 ml/min/1.73 sqM); Alkaline Phosphatase 76 U/L (38-126); Anion Gap 8 mmol/L; Blood Urea Nitrogen 10 mg/dL (7-17); Calcium 8.2 mg/dL (8.4-10.2); Carbon Dioxide 22 mmol/L (22-30); Chloride 104 mmol/L (98-107); Glucose 178 mg/dL (74-99); Magnesium 1.3 mg/dL (1.6-2.3); Non-African American GFR(CKD) >90 (>60 ml/min/1.73 sqM); Potassium 4.2 mmol/L (3.5-5.1); Sodium 134 mmol/L (137-145); Total Bilirubin 0.5 mg/dL (0.2-1.3); Total Protein 5.4 g/dL (6.3-8.2)
[2021-10-11 15:18] LABS: Glucose,Whole Blood 161 mg/dL (75-99)
[2021-10-11] MEDS ORDERED: DEXMEDETOMIDINE/0.9% NACL(PMX) 400 MCG in EMPTY BAG 1 BAG IV SCH (15:27)
[2021-10-11] MEDS: ALBUMIN HUMAN 5% 250 ML in EMPTY BAG 1 BAG IVPB PRN ×3 (15:45→18:46)
[2021-10-11] MEDS: IPRATROPIUM-ALBUTEROL 3 ML NEB INHALATION SCH ×4 (15:47→20:05)
[2021-10-11] MEDS: ACETAMINOPHEN IV (For NPO) 1,000 MG in EMPTY BAG 1 BAG IVPB SCH ×2 (16:05→20:31)
[2021-10-11 16:18] LABS: Glucose,Whole Blood 154 mg/dL (75-99)
[2021-10-11 17:12] LABS: Glucose,Whole Blood 130 mg/dL (75-99)
[2021-10-11] MEDS: VANCOMYCIN 1,500 MG in SODIUM CHLORIDE 0.9% 250 ML IVPB SCH (17:14)
[2021-10-11] MEDS: KETOROLAC 30 MG/ML 1 ML VIAL IVP SCH (17:16)
[2021-10-11 17:56] LABS: ABG Base Excess -0.8 mmol/L; ABG HCO3 24 mmol/L (21-25); ABG Oxygen Saturation 99.4 % (94-97); ABG PCO2 39 mmHg (35-45); ABG PO2 123 mmHg (83-108); ABG TCO2 25 mmol/L (19-24); Allen Test Performed? Yes; Glucose,Whole Blood 119 mg/dL (75-99)
[2021-10-11 18:08] LABS: Anisocytosis Slight; Basophils % (A) 0 %; Eosinophils % (A) 0 %; HCT 25.3 % (34.0-46.0); Hypochromasia Slight; Lymphocytes # (A) 0.8 k/uL (1.0-4.8); Lymphocytes % (A) 12 %; MCH 26.4 pg (25.0-35.0); MCHC 31.2 g/dL (31.0-37.0); MCV 84.9 fL (80.0-100.0); Mean Platelet Volume 8.3; Monocytes # (A) 0.3 k/uL (0-1.0); Monocytes % (A) 4 %; Neutrophils # (A) 5.7 k/uL (1.3-7.7); Neutrophils % (A) 82 %; Platelet Count 247 k/uL (150-450); RBC 2.98 m/uL (3.80-5.40); RDW 18.7 % (11.5-15.5); WBC 6.9 k/uL (3.8-10.6)
[2021-10-11 18:58] LABS: HGB 7.9 gm/dL (11.4-16.0)
[2021-10-11 19:01] LABS: Glucose,Whole Blood 121 mg/dL (75-99)
[2021-10-11 20:06] LABS: Glucose,Whole Blood 126 mg/dL (75-99)
--- NOTE | 2021-10-11 20:15 | P.PN ---
Subjective Progress Note Date: 10/11/21 I saw the patient immediately after the patient arrived to the intensive care unit following the cardiac bypass surgery. This was a off pump coronary artery bypass surgery 3 with SIMPSON to LAD. The patient for surgery, was brought into the intensive care unit intubated on a mechanical ventilator and the patient was on propofol. Initial ventilator settings included a assist-control mode at the rate of 12 with tidal volume of 475 with an FiO2 of 100% and a PEEP of 10. Chest x-ray was noted. Blood gases was noted. During the course of this postsurgical phase, the patient was weaned off gradually and FiO2 was dropped down and subsequently the PEEP was reduced down to 10. Probable was gradually w eaned off and at that point weaning parameters were checked and the parameters were adequate. Following that the patient was given a spelled his breathing trial with a pressure support of 5 and PEEP of 5. Her blood gases following the reading Harris showed a pH of 7.4 with a pCO2 of 39 and pO2 of 123. At that point the patient was extubated and currently she is on 3 L of oxygen by nasal cannula. Chest x-ray postop showed adequate positioning of the orotracheal tube. No evidence of any pneumothorax. The patient has chest tubes and the patient has a mediastinal chest tube and the left pleural chest tube and output from the chest tubes have been essentially minimal. The patient did have some limited amount of subcutaneous emphysema on the left as noted on the chest x- ray. At this point in time, the output from the chest tubes are in order of 200 mL total 11 from the operating room. The patient has no evidence of any air leak. Hemodynamically, the patient is producing adequate amount of urine output. Cardiac rhythm is sinus. The cardiac output and index are 7.2 and 3.7 respectively and the pulmonary artery pressure is 38/22 cm of water. Her pain is under good control. She was offered extremities without any limitation. Note that this patient was extubated with a six-hour window after arriving to the intensive care unit. The patient is currently on nitroglycerin drip at 5 g per minute and Cardizem drip at 5 mg an hour. Insulin drip is at 0.5 units an hour and the patient is also on lactated Ringer at the rate of 50 mL an hour. Urine output is adequate for now. Objective - Vital Signs Vital signs: Vital Signs Temp 98.8 F 10/11/21 16:00 Pulse 96 10/11/21 19:00 Resp 21 10/11/21 19:00 BP 113/61 10/11/21 17:15 Pulse Ox 93 L 10/11/21 19:00 Intake & Output 10/11/21 10/11/21 10/12/21 06:59 18:59 06:59 Intake Total 418.900 9489.086 310 Output Total 1400 130 Balance 785.139 -15.914 180 Weight 90.8 kg Intake: IV 1344 310 ACETAMINOPHEN IV (For NPO 100 ) 1,000 mg In Empty Bag 1 bag @ 400 mls/hr IVPB Q6H [facility] Rx#:[id number] Albumin Human 5% 500 ml @ 500 0 mls/hr IVPB .STK-MED ONE Rx#:[id number] Albumin Human 5% 500 ml 250 In Empty Bag 1 bag @ 250 mls/hr IVPB ONCE ONE Rx#: [id number] Diltiazem 125 mg In 20 5 Sodium Chloride 0.9% 100 ml @ 5 MG/HR 5 mls/hr IV .Q24H [facility] Rx#:[id number] Lactated Ringers 1,000 ml 200 50 @ 50 mls/hr IV .Q20H [facility] Rx#:[id number] Nitroglycerin-D5w Pmx 50 20 5 mg In Dextrose/Water 1 250ml.bag @ 5 MCG/MIN 1.5 mls/hr IV .Q24H [facility] Rx#: [id number] Vancomycin 1,500 mg In 250 Sodium Chloride 0.9% 250 ml @ 125 mls/hr IVPB Q12H [facility] Rx#:[id number] Intake, IV Titration 305.139 40.086 Amount Clevidipine Butyrate 25 0.6 mg In Empty Bag 1 bag @ 1 MG/HR 2 mls/hr IV .Q24H [facility] Rx#:[id number] Dexmedetomidine/0.9% NaCl 6.810 (Pmx) 400 mcg In Empty Bag 1 bag @ 0.2 MCG/KG/HR 4.54 mls/hr IV .Q22H2M [facility] Rx#:[id number] Heparin Sod,Pork in 0.45% 305.139 NaCl 25,000 unit In 0.45 % NaCl 1 250ml.bag @ 10. 928 UNITS/KG/HR 9.999 mls /hr IV .Q24H [facility] Rx#: [id number] Insulin Regular 100 unit 7.070 In Sodium Chloride 0.9% 100 ml @ Per Protocol IV .Q0M [facility] Rx#:[id number] propofoL 1,000 mg In 25.606 Empty Bag 1 bag @ Titrate IV .Q0M [facility] Rx#: [id number] Oral 480 Output: Chest Tube Drainage 110 70 Chest Tube Left Pleural/ 110 70 Mediastinal Urine 490 60 Estimated Blood Loss 800 Other: Voiding Method Toilet Indwelling Catheter # Voids 2 ABP, PAP, CO, CI - Last Documented Arterial Blood Pressure 103/51 Pulmonary Artery Pressure 43/21 Cardiac Output 8 Cardiac Index 4.2 - Exam Gen. appearance she is awake, comfortable following commands and answering questions. Appropriate. No altered mentation. Currently on 3 L of oxygen by nasal cannula. Breathing is nonlabored. Head exam was generally normal. There was no scleral icterus or corneal arcus. Mucous membranes were moist. Examination of the neck shows a long as catheter and a Cordis in place. No neck stiffness. No goiter. No neck masses. Lungs sounds are diminished and the breath sounds are diminished in the lung bases bilaterally. No rhonchi. No wheezes. The patient has a thoracotomy scar and the patient has a firm and a mediastinal chest tube both of them are in good location. No evidence of any air leak on the Pleur-evac. Cardiac exam revealed the PMI to be normally situated and sized. The rhythm was regular and no extrasystoles were noted during several minutes of auscultation. The first and second heart sounds were normal and physiologic splitting of the second heart sound was noted. There were no murmurs, rubs, clicks, or gallops. Abdominal exam revealed normal bowel sounds. The abdomen was soft, non-tender, and without masses, organomegaly, or appreciable enlargement of the abdominal aorta. Examination of the extremities revealed easily palpable radial, femoral and pedal pulses. There was no cyanosis, clubbing or edema. Examination of the skin revealed no evidence of significant rashes, suspicious appearing nevi or other concerning lesions. Neurologically, the patient is awake and alert and the patient does not have any focal neurological deficit. Cranial nerves are essentially intact. - Labs CBC & Chem 7: 10/11/21 18:04 10/11/21 14:15 Labs: Abnormal Lab Results - Last 24 Hours (Table) 10/10/21 10/10/21 10/11/21 Range/Units 07:58 20:34 01:49 WBC (3.8-10.6) k/uL RBC (3.80-5.40) m/uL Hgb (11.4-16.0) gm/dL Hct (34.0-46.0) % RDW (11.5-15.5) % Neutrophils # (1.3-7.7) k/uL Lymphocytes # (1.0-4.8) k/uL APTT 55.4 H (22.0-30.0) sec ABG pH (7.35-7.45) ABG pCO2 (35-45) mmHg ABG pO2 (83-108) mmHg ABG Total CO2 (19-24) mmol/L ABG O2 Saturation (94-97) % ABG Hematocrit (34.0-46.0) % ABG Potassium (3.4-4.5) mmol/L ABG Glucose (75-99) mg/dL Hemoglobin (11.4-16.0) gm/dL Sodium (137-145) mmol/L Glucose (74-99) mg/dL POC Glucose (mg/dL) 177 H (75-99) mg/dL Calcium (8.4-10.2) mg/dL Magnesium (1.6-2.3) mg/dL Total Protein (6.3-8.2) g/dL Albumin (3.5-5.0) g/dL Arterial Blood Potassium (3.4-4.5) mmol/L Arterial Blood Glucose (75-99) mg/dL Crossmatch See Detail 10/11/21 10/11/21 10/11/21 Range/Units 05:00 09:02 10:38 WBC (3.8-10.6) k/uL RBC (3.80-5.40) m/uL Hgb (11.4-16.0) gm/dL Hct (34.0-46.0) % RDW (11.5-15.5) % Neutrophils # (1.3-7.7) k/uL Lymphocytes # (1.0-4.8) k/uL APTT (22.0-30.0) sec ABG pH (7.35-7.45) ABG pCO2 (35-45) mmHg ABG pO2 139 H 138 H (83-108) mmHg ABG Total CO2 26 H (19-24) mmol/L ABG O2 Saturation 99.3 H 99.1 H (94-97) % ABG Hematocrit 28 L 29 L (34.0-46.0) % ABG Potassium 3.3 L (3.4-4.5) mmol/L ABG Glucose 114 H 181 H (75-99) mg/dL Hemoglobin 9.2 L 9.5 L (11.4-16.0) gm/dL Sodium (137-145) mmol/L Glucose (74-99) mg/dL POC Glucose (mg/dL) 126 H (75-99) mg/dL Calcium (8.4-10.2) mg/dL Magnesium (1.6-2.3) mg/dL Total Protein (6.3-8.2) g/dL Albumin (3.5-5.0) g/dL Arterial Blood Potassium 3.3 L (3.4-4.5) mmol/L Arterial Blood Glucose 114 H 181 H (75-99) mg/dL Crossmatch 10/11/21 10/11/21 10/11/21 Range/Units 11:24 11:53 12:32 WBC (3.8-10.6) k/uL RBC (3.80-5.40) m/uL Hgb (11.4-16.0) gm/dL Hct (34.0-46.0) % RDW (11.5-15.5) % Neutrophils # (1.3-7.7) k/uL Lymphocytes # (1.0-4.8) k/uL APTT (22.0-30.0) sec ABG pH (7.35-7.45) ABG pCO2 (35-45) mmHg ABG pO2 197 H 195 H 192 H (83-108) mmHg ABG Total CO2 26 H 26 H 25 H (19-24) mmol/L ABG O2 Saturation 99.8 H 99.7 H 99.6 H (94-97) % ABG Hematocrit 28 L 28 L 28 L (34.0-46.0) % ABG Potassium (3.4-4.5) mmol/L ABG Glucose 151 H 145 H 155 H (75-99) mg/dL Hemoglobin 9.2 L 9.1 L 9.1 L (11.4-16.0) gm/dL Sodium (137-145) mmol/L Glucose (74-99) mg/dL POC Glucose (mg/dL) (75-99) mg/dL Calcium (8.4-10.2) mg/dL Magnesium (1.6-2.3) mg/dL Total Protein (6.3-8.2) g/dL Albumin (3.5-5.0) g/dL Arterial Blood Potassium (3.4-4.5) mmol/L Arterial Blood Glucose 151 H 145 H 155 H (75-99) mg/dL Crossmatch 10/11/21 10/11/21 10/11/21 Range/Units 13:08 14:05 14:14 WBC (3.8-10.6) k/uL RBC (3.80-5.40) m/uL Hgb (11.4-16.0) gm/dL Hct (34.0-46.0) % RDW (11.5-15.5) % Neutrophils # (1.3-7.7) k/uL Lymphocytes # (1.0-4.8) k/uL APTT (22.0-30.0) sec ABG pH (7.35-7.45) ABG pCO2 (35-45) mmHg ABG pO2 (83-108) mmHg ABG Total CO2 25 H (19-24) mmol/L ABG O2 Saturation 97.8 H (94-97) % ABG Hematocrit 27 L (34.0-46.0) % ABG Potassium (3.4-4.5) mmol/L ABG Glucose 161 H (75-99) mg/dL Hemoglobin 8.9 L (11.4-16.0) gm/dL Sodium (137-145) mmol/L Glucose (74-99) mg/dL POC Glucose (mg/dL) 156 H 181 H (75-99) mg/dL Calcium (8.4-10.2) mg/dL Magnesium (1.6-2.3) mg/dL Total Protein (6.3-8.2) g/dL Albumin (3.5-5.0) g/dL Arterial Blood Potassium (3.4-4.5) mmol/L Arterial Blood Glucose 161 H (75-99) mg/dL Crossmatch 10/11/21 10/11/21 10/11/21 Range/Units 14:15 14:15 14:28 WBC 12.6 H (3.8-10.6) k/uL RBC 3.57 L (3.80-5.40) m/uL Hgb 9.4 L D (11.4-16.0) gm/dL Hct 29.9 L (34.0-46.0) % RDW 17.9 H (11.5-15.5) % Neutrophils # 10.7 H (1.3-7.7) k/uL Lymphocytes # (1.0-4.8) k/uL APTT (22.0-30.0) sec ABG pH 7.26 L (7.35-7.45) ABG pCO2 56 H (35-45) mmHg ABG pO2 279 H (83-108) mmHg ABG Total CO2 27 H (19-24) mmol/L ABG O2 Saturation 100.0 H (94-97) % ABG Hematocrit (34.0-46.0) % ABG Potassium (3.4-4.5) mmol/L ABG Glucose (75-99) mg/dL Hemoglobin (11.4-16.0) gm/dL Sodium 134 L (137-145) mmol/L Glucose 178 H (74-99) mg/dL POC Glucose (mg/dL) (75-99) mg/dL Calcium 8.2 L (8.4-10.2) mg/dL Magnesium 1.3 L (1.6-2.3) mg/dL Total Protein 5.4 L (6.3-8.2) g/dL Albumin 3.0 L (3.5-5.0) g/dL Arterial Blood Potassium (3.4-4.5) mmol/L Arterial Blood Glucose (75-99) mg/dL Crossmatch 10/11/21 10/11/21 10/11/21 Range/Units 15:13 16:15 17:11 WBC (3.8-10.6) k/uL RBC (3.80-5.40) m/uL Hgb (11.4-16.0) gm/dL Hct (34.0-46.0) % RDW (11.5-15.5) % Neutrophils # (1.3-7.7) k/uL Lymphocytes # (1.0-4.8) k/uL APTT (22.0-30.0) sec ABG pH (7.35-7.45) ABG pCO2 (35-45) mmHg ABG pO2 (83-108) mmHg ABG Total CO2 (19-24) mmol/L ABG O2 Saturation (94-97) % ABG Hematocrit (34.0-46.0) % ABG Potassium (3.4-4.5) mmol/L ABG Glucose (75-99) mg/dL Hemoglobin (11.4-16.0) gm/dL Sodium (137-145) mmol/L Glucose (74-99) mg/dL POC Glucose (mg/dL) 161 H 154 H 130 H (75-99) mg/dL Calcium (8.4-10.2) mg/dL Magnesium (1.6-2.3) mg/dL Total Protein (6.3-8.2) g/dL Albumin (3.5-5.0) g/dL Arterial Blood Potassium (3.4-4.5) mmol/L Arterial Blood Glucose (75-99) mg/dL Crossmatch 10/11/21 10/11/21 10/11/21 Range/Units 17:54 17:54 18:04 WBC (3.8-10.6) k/uL RBC 2.98 L (3.80-5.40) m/uL Hgb 7.9 L D (11.4-16.0) gm/dL Hct 25.3 L (34.0-46.0) % RDW 18.7 H (11.5-15.5) % Neutrophils # (1.3-7.7) k/uL Lymphocytes # 0.8 L (1.0-4.8) k/uL APTT (22.0-30.0) sec ABG pH (7.35-7.45) ABG pCO2 (35-45) mmHg ABG pO2 123 H (83-108) mmHg ABG Total CO2 25 H (19-24) mmol/L ABG O2 Saturation 99.4 H (94-97) % ABG Hematocrit (34.0-46.0) % ABG Potassium (3.4-4.5) mmol/L ABG Glucose (75-99) mg/dL Hemoglobin (11.4-16.0) gm/dL Sodium (137-145) mmol/L Glucose (74-99) mg/dL POC Glucose (mg/dL) 119 H (75-99) mg/dL Calcium (8.4-10.2) mg/dL Magnesium (1.6-2.3) mg/dL Total Protein (6.3-8.2) g/dL Albumin (3.5-5.0) g/dL Arterial Blood Potassium (3.4-4.5) mmol/L Arterial Blood Glucose (75-99) mg/dL Crossmatch 10/11/21 10/11/21 Range/Units 18:59 20:04 WBC (3.8-10.6) k/uL RBC (3.80-5.40) m/uL Hgb (11.4-16.0) gm/dL Hct (34.0-46.0) % RDW (11.5-15.5) % Neutrophils # (1.3-7.7) k/uL Lymphocytes # (1.0-4.8) k/uL APTT (22.0-30.0) sec ABG pH (7.35-7.45) ABG pCO2 (35-45) mmHg ABG pO2 (83-108) mmHg ABG Total CO2 (19-24) mmol/L ABG O2 Saturation (94-97) % ABG Hematocrit (34.0-46.0) % ABG Potassium (3.4-4.5) mmol/L ABG Glucose (75-99) mg/dL Hemoglobin (11.4-16.0) gm/dL Sodium (137-145) mmol/L Glucose (74-99) mg/dL POC Glucose (mg/dL) 121 H 126 H (75-99) mg/dL Calcium (8.4-10.2) mg/dL Magnesium (1.6-2.3) mg/dL Total Protein (6.3-8.2) g/dL Albumin (3.5-5.0) g/dL Arterial Blood Potassium (3.4-4.5) mmol/L Arterial Blood Glucose (75-99) mg/dL Crossmatch Assessment and Plan Plan: 1 coronary artery bypass surgery. The patient underwent three-vessel bypass off pump and the patient is currently postop day #0. The patient is known to have coronary artery disease along with unstable angina and acute non-STEMI.. Currently the patient is on a nitroglycerin and Cardizem drip and hemodynamically stable. Hemodynamically meter to check and the patient has a adequate cardiac output and index. Chest x-ray was noted. The patient was extubated without any major difficulties. Cardiac rhythm is sinus. Chest tubes are all in place. 2 post thoracotomy, extubated without any major difficulties and currently on 3 L of oxygen by nasal cannula 3 History of hypertension. 4 History of hyperlipidemia. 5 History of diabetes mellitus. Patient is currently on a insulin drip at 0.5 units an hour. 6 History of prior methamphetamine use. 7 Occasional marijuana use. 8 10 years of previous cigarette use. 9 Obesity. 10 Fibromyalgia. 11Osteoarthritis. 12 History of sleep apnea syndrome. Plan Extubated successfully to 3 L of oxygen by nasal cannula. Monitor hemodynamic parameters Encourage use of incentive spirometer Monitor the output from the chest tubes no evidence of any air leak at this point His insulin drip for now Continue with nitroglycerin drip and a Cardizem drip , needed for radial artery harvesting and grafting Neurologically intact Repeat chest x-ray and labs in the morning Incentive spirometer Keep in ICU for now Critically care evaluation, performed in more than 30 minutes.
[2021-10-11 21:12] LABS: Glucose,Whole Blood 138 mg/dL (75-99)
[2021-10-11] MEDS ORDERED: METOPROLOL TARTRATE 25 MG TAB PO SCH (21:15)
[2021-10-11 21:56] LABS: Glucose,Whole Blood 139 mg/dL (75-99)
[2021-10-11 23:10] LABS: Glucose,Whole Blood 137 mg/dL (75-99)
[2021-10-11] MEDS ORDERED: HYDROcodone/APAP 5-325MG 1 EACH TAB PO PRN (23:51)
[2021-10-12] MEDS ORDERED: ACETAMINOPHEN TAB 325 MG TAB PO PRN
[2021-10-12] MEDS: KETOROLAC 30 MG/ML 1 ML VIAL IVP SCH ×5 (00:05→23:05)
[2021-10-12 00:32] LABS: Glucose,Whole Blood 133 mg/dL (75-99)
[2021-10-12] MEDS: HYDROcodone/APAP 5-325MG 1 EACH TAB PO PRN ×6 (01:00→22:57)
[2021-10-12 01:06] LABS: Glucose,Whole Blood 131 mg/dL (75-99)
[2021-10-12 02:12] LABS: Glucose,Whole Blood 130 mg/dL (75-99)
[2021-10-12 03:16] LABS: Glucose,Whole Blood 125 mg/dL (75-99)
[2021-10-12 04:02] LABS: Glucose,Whole Blood 123 mg/dL (75-99)
[2021-10-12 04:12] LABS: Anisocytosis Slight; Basophils % (A) 0 %; Eosinophils # (A) 0.1 k/uL (0-0.7); Eosinophils % (A) 1 %; HCT 25.3 % (34.0-46.0); HGB 8.2 gm/dL (11.4-16.0); Hypochromasia Slight; Lymphocytes # (A) 1.7 k/uL (1.0-4.8); Lymphocytes % (A) 22 %; MCH 26.9 pg (25.0-35.0); MCHC 32.6 g/dL (31.0-37.0); MCV 82.4 fL (80.0-100.0); Mean Platelet Volume 9.6; Monocytes # (A) 0.3 k/uL (0-1.0); Monocytes % (A) 5 %; Neutrophils # (A) 5.3 k/uL (1.3-7.7); Neutrophils % (A) 71 %; Platelet Count 227 k/uL (150-450); RBC 3.07 m/uL (3.80-5.40); RDW 18.1 % (11.5-15.5); WBC 7.4 k/uL (3.8-10.6)
[2021-10-12 04:43] LABS: AST 53 U/L (14-36); African American GFR (CKD) >90 (>60 ml/min/1.73 sqM); Albumin 3.1 g/dL (3.5-5.0); Alkaline Phosphatase 59 U/L (38-126); Blood Urea Nitrogen 10 mg/dL (7-17); Calcium 8.3 mg/dL (8.4-10.2); Carbon Dioxide 21 mmol/L (22-30); Glucose 115 mg/dL (74-99); Non-African American GFR(CKD) >90 (>60 ml/min/1.73 sqM); Total Bilirubin 0.4 mg/dL (0.2-1.3); Total Protein 5.3 g/dL (6.3-8.2)
[2021-10-12 04:53] LABS: ALT 17 U/L (4-34); Anion Gap 10 mmol/L; Chloride 103 mmol/L (98-107); Magnesium 1.4 mg/dL (1.6-2.3); Sodium 134 mmol/L (137-145)
[2021-10-12 05:17] LABS: Glucose,Whole Blood 139 mg/dL (75-99)
[2021-10-12] MEDS: VANCOMYCIN 1,500 MG in SODIUM CHLORIDE 0.9% 250 ML IVPB SCH ×2 (05:58→18:44)
[2021-10-12 06:11] LABS: Glucose,Whole Blood 171 mg/dL (75-99)
[2021-10-12 06:58] LABS: Glucose,Whole Blood 166 mg/dL (75-99)
--- NOTE | 2021-10-12 08:19 | XR ---
EXAMINATION TYPE: XR chest 1V portable DATE OF EXAM: 10/12/2021 CLINICAL HISTORY: Postopen cardiac surgery. TECHNIQUE: Single AP portable upright view of the chest is obtained. COMPARISON: Chest x-ray from one day earlier and older studies. FINDINGS: Interval extubation with endotracheal and orogastric tubes. Stable right internal jugular [place]-Simona catheter with distal coiling. Stable left sided chest tube an d mediastinal drainage catheter. Overlying sternal wires and mediastinal clips along with left atrial appendage clip are all redemonstrated. Persistent patchy left lower lung atelectasis and/or infiltrate. Adjacent left-sided subcutaneous emp hysema redemonstrated. No pneumothorax. Stable right basilar opacity and mild to moderate central vas cular congestion along with cardiomegaly. Osseous structures are intact. IMPRESSION: Interval extubation. Other findings stable as there is Persistent cardiomegaly with cent ral vascular congestion and small to tiny bilateral pleural effusions along with left greater than ri ght bilateral lower lung atelectasis and/or infiltrate all redemonstrated. Left-sided chest tube eddi ins present without pneumothorax.
[2021-10-12] MEDS: MAGNESIUM SULFATE-D5W PMX 1 GM in DEXTROSE/WATER 1 100ML.BAG IVPB SCH ×3 (08:44→12:08)
[2021-10-12] MEDS: CLOPIDOGREL 75 MG TAB PO SCH (08:44)
[2021-10-12] MEDS: ENOXAPARIN 40 MG/0.4 ML SYRINGE SQ SCH (08:44)
[2021-10-12] MEDS: ASPIRIN 325 MG TAB PO SCH (08:45)
[2021-10-12] MEDS: METOPROLOL TARTRATE 50 MG TAB PO SCH ×2 (08:45→21:19)
[2021-10-12] MEDS: ATORVASTATIN 40 MG TAB PO SCH (08:45)
[2021-10-12 08:57] LABS: Glucose,Whole Blood 153 mg/dL (75-99)
[2021-10-12] MEDS ORDERED: bisacodyL 10 MG SUPP RECTAL PRN (09:00)
[2021-10-12] MEDS ORDERED: MAGNESIUM HYDROXIDE 2,400 MG/10 ML CUP PO PRN (09:00)
[2021-10-12] MEDS ORDERED: PANTOPRAZOLE 40 MG/10 ML VIAL IVP SCH (09:00)
[2021-10-12] MEDS ORDERED: METOPROLOL TARTRATE 12.5 MG TAB PO SCH (09:00)
--- NOTE | 2021-10-12 09:08 | P.PN ---
Subjective Progress Note Date: 10/12/21 Principal diagnosis: Multivessel coronary artery disease with distal left main disease, non-ST elevated myocardial infarction this admission. Past medical history significant for hypertension, hyperlipidemia diabetes mellitus type 2 with a preoperative hemoglobin A1c of 7.0%, asthma, COPD, obesity, fibromyalgia, osteoarthritis, history of sleep apnea syndrome, remote history of tobacco abuse quit smoking 20 years ago, obstructive sleep apnea, occasional marijuana use and methamphetamine use. POD #1 off pump coronary artery bypass grafting 3 vessels with sequential of le ft internal mammary artery to the left anterior descending coronary artery and intermediate coronary artery and a T graft left radial artery graft to the first obtuse marginal coronary artery. Ligation of the left atrial appendage with a 35 mm Atricure clip. Endovascular radial artery harvest. Endovascular harvest of the right greater saphenous vein. Postoperative acute blood loss anemia, expected due to hemodilution. The patient was seen in follow-up today 10/12/2021 at her bedside in the intensive care unit. Currently she is sitting up to the bedside chair, is awake, alert, oriented 3 and is in no acute apparent distress. Denies any complaints of shortness of breath, although is complaining of some surgical type pain to her chest tube insertion sites. She currently rates her pain 4 out of 10 on the pain scale and reports her pain is well controlled on her current pain medication regimen. She was successfully extubated at 6:13 PM last evening 10/11/2021. Oxygen saturation are 94% on 3 L nasal cannula and she is achieving 1850 mL on her incentive spirometry with encouragement. Bedside telemetry showing sinus tachycardia heart rate 106 BPM. She remained hemodynamically stable and is currently on no inotropic or pressor support. Right IJ Cordis and Vining-Simona catheter remain in place with current hemodynamic showing a cardiac output 7.9, cardiac index 4.1, PA pressures 35/12 and CVP 6 mmHg. Mediastinal and left pleural chest tubes remain in place to low continuous wall suction -20 cm H2O. No air leak is present. Draining thin serosanguineous drainage with 390 mL output in the last 8 hours and 700 mL output since surgery. Paulino catheter remains in place with good urine output 355 mL output in the last 8 hours. Objective - Vital Signs Vital signs: Vital Signs Temp 98.9 F 10/12/21 04:00 Pulse 106 H 10/12/21 06:00 Resp 18 10/12/21 06:00 BP 106/49 10/12/21 06:00 Pulse Ox 94 L 10/12/21 06:00 Intake & Output 10/11/21 10/12/21 10/12/21 18:59 06:59 18:59 Intake Total 1384.086 924.893 50 Output Total 1400 1225 75 Balance -15.914 -300.107 -25 Weight 94.9 kg Intake: IV 1344 870 50 ACETAMINOPHEN IV (For NPO 100 ) 1,000 mg In Empty Bag 1 bag @ 400 mls/hr IVPB Q6H [facility] Rx#:[id number] Albumin Human 5% 500 ml @ 500 0 mls/hr IVPB .STK-MED ONE Rx#:[id number] Albumin Human 5% 500 ml 250 In Empty Bag 1 bag @ 250 mls/hr IVPB ONCE ONE Rx#: [id number] CO/CI 110 Diltiazem 125 mg In 20 5 Sodium Chloride 0.9% 100 ml @ 5 MG/HR 5 mls/hr IV .Q24H [facility] Rx#:[id number] Lactated Ringers 1,000 ml 200 500 50 @ 50 mls/hr IV .Q20H [facility] Rx#:[id number] Nitroglycerin-D5w Pmx 50 20 5 mg In Dextrose/Water 1 250ml.bag @ 5 MCG/MIN 1.5 mls/hr IV .Q24H [facility] Rx#: [id number] Vancomycin 1,500 mg In 250 Sodium Chloride 0.9% 250 ml @ 125 mls/hr IVPB Q12H [facility] Rx#:[id number] Intake, IV Titration 40.086 54.893 Amount Clevidipine Butyrate 25 0.6 mg In Empty Bag 1 bag @ 1 MG/HR 2 mls/hr IV .Q24H [facility] Rx#:[id number] Dexmedetomidine/0.9% NaCl 6.810 (Pmx) 400 mcg In Empty Bag 1 bag @ 0.2 MCG/KG/HR 4.54 mls/hr IV .Q22H2M [facility] Rx#:[id number] Diltiazem 125 mg In 44.667 Sodium Chloride 0.9% 100 ml @ 5 MG/HR 5 mls/hr IV .Q24H [facility] Rx#:[id number] Insulin Regular 100 unit 7.070 10.226 In Sodium Chloride 0.9% 100 ml @ Per Protocol IV .Q0M [facility] Rx#:[id number] propofoL 1,000 mg In 25.606 Empty Bag 1 bag @ Titrate IV .Q0M [facility] Rx#: [id number] Output: Chest Tube Drainage 110 580 Chest Tube Left Pleural/ 110 580 Mediastinal Drainage 10 30 Wrist 10 30 Urine 490 635 45 Estimated Blood Loss 800 Other: Voiding Method Indwelling Catheter Indwelling Catheter ABP, PAP, CO, CI - Last Documented Arterial Blood Pressure 109/53 Pulmonary Artery Pressure 34/16 Cardiac Output 5.8 Cardiac Index 3 - Exam CONSTITUTIONAL: Sitting up to the bedside chair in the intensive care unit, a ppears comfortable, cooperative, no apparent acute distress. HEENT: Neck is supple, no JVD, no lymphadenopathy. Right IJ Cordis and Vining- Simona catheter in place and functioning. RESPIRATORY: Lungs sounds essentially clear throughout, diminished to h er bilateral bases. Respirations are symmetrical and nonlabored. Currently on 3 L nasal cannula with oxygen saturations 94%. Able to achieve 1850 mL on her incentive spirometry. Strong cough. CARDIOVASCULAR: Regular rhythm and rate. S1 and S2 present, negative for S3, gallop or murmur. Sternum is stable. Palpable peripheral pulses bilaterally, trace edema to her bilateral lower extremities. No calf pain or tenderness noted. Heart hugger in place with patient demonstrating appropriate use. Knee- high EMMIE hose and sequential compression devices in place to his bilateral lower extremities. GASTROINTESTINAL: Abdomen soft, nontender, nondistended. Hypoactive bowel sounds present 4 quadrants. Tolerating diet. Passing flatus. No guarding or rigidity. GENITOURINARY: Paulino present draining clear, yellow urine. Urine output 355 mL in the last 8 hours. INTEGUMENTARY: Skin is warm and dry with no evidence of clubbing or cyanosis. Midline sternal incision clean dry and well approximated, covered with dry intact dressing. Right lower extremity EVH sites well approximated without redness or drainage. Left arm radial artery harvest sites clean, dry and approximated. No drainage or redness is present. NEUROLOGIC: Cranial nerves II through XII intact. No focal deficits. MUSKULOSKELETAL: Able to move all extremities, strength equal bilaterally, generalized weakness. PSYCHIATRIC: Alert and oriented to person place and time, appropriate affect, intact judgment and insight. INVASIVE LINES AND TUBES: Mediastinal/left pleural chest tubes present and connected to low continuous wall suction, no air leaks present. Med iastinal/left pleural chest tubes with 390 mL of thin serosanguineous drainage overnight, 700 mL output since surgery. Right internal jugular Vining/Cordis, right radial arterial line present. Last CO 7.9, CI 4.1, PA 35/12 and CVP 6 mmHg. Left arm JOSE drain in place with scant thin serosanguineous drainage, 30 mL output in the last 8 hours. - Allied health notes Allied health notes reviewed: nursing - Labs CBC & Chem 7: 10/12/21 04:00 10/12/21 04:00 Labs: Abnormal Lab Results - Last 24 Hours (Table) 10/10/21 10/11/21 10/11/21 Range/Units 07:58 09:02 10:38 WBC (3.8-10.6) k/uL RBC (3.80-5.40) m/uL Hgb (11.4-16.0) gm/dL Hct (34.0-46.0) % RDW (11.5-15.5) % Neutrophils # (1.3-7.7) k/uL Lymphocytes # (1.0-4.8) k/uL ABG pH (7.35-7.45) ABG pCO2 (35-45) mmHg ABG pO2 139 H 138 H (83-108) mmHg ABG Total CO2 26 H (19-24) mmol/L ABG O2 Saturation 99.3 H 99.1 H (94-97) % ABG Hematocrit 28 L 29 L (34.0-46.0) % ABG Potassium 3.3 L (3.4-4.5) mmol/L ABG Glucose 114 H 181 H (75-99) mg/dL Hemoglobin 9.2 L 9.5 L (11.4-16.0) gm/dL Sodium (137-145) mmol/L Carbon Dioxide (22-30) mmol/L Glucose (74-99) mg/dL POC Glucose (mg/dL) (75-99) mg/dL Calcium (8.4-10.2) mg/dL Magnesium (1.6-2.3) mg/dL AST (14-36) U/L Total Protein (6.3-8.2) g/dL Albumin (3.5-5.0) g/dL Arterial Blood Potassium 3.3 L (3.4-4.5) mmol/L Arterial Blood Glucose 114 H 181 H (75-99) mg/dL Crossmatch See Detail 10/11/21 10/11/21 10/11/21 Range/Units 11:24 11:53 12:32 WBC (3.8-10.6) k/uL RBC (3.80-5.40) m/uL Hgb (11.4-16.0) gm/dL Hct (34.0-46.0) % RDW (11.5-15.5) % Neutrophils # (1.3-7.7) k/uL Lymphocytes # (1.0-4.8) k/uL ABG pH (7.35-7.45) ABG pCO2 (35-45) mmHg ABG pO2 197 H 195 H 192 H (83-108) mmHg ABG Total CO2 26 H 26 H 25 H (19-24) mmol/L ABG O2 Saturation 99.8 H 99.7 H 99.6 H (94-97) % ABG Hematocrit 28 L 28 L 28 L (34.0-46.0) % ABG Potassium (3.4-4.5) mmol/L ABG Glucose 151 H 145 H 155 H (75-99) mg/dL Hemoglobin 9.2 L 9.1 L 9.1 L (11.4-16.0) gm/dL Sodium (137-145) mmol/L Carbon Dioxide (22-30) mmol/L Glucose (74-99) mg/dL POC Glucose (mg/dL) (75-99) mg/dL Calcium (8.4-10.2) mg/dL Magnesium (1.6-2.3) mg/dL AST (14-36) U/L Total Protein (6.3-8.2) g/dL Albumin (3.5-5.0) g/dL Arterial Blood Potassium (3.4-4.5) mmol/L Arterial Blood Glucose 151 H 145 H 155 H (75-99) mg/dL Crossmatch 10/11/21 10/11/21 10/11/21 Range/Units 13:08 14:05 14:14 WBC (3.8-10.6) k/uL RBC (3.80-5.40) m/uL Hgb (11.4-16.0) gm/dL Hct (34.0-46.0) % RDW (11.5-15.5) % Neutrophils # (1.3-7.7) k/uL Lymphocytes # (1.0-4.8) k/uL ABG pH (7.35-7.45) ABG pCO2 (35-45) mmHg ABG pO2 (83-108) mmHg ABG Total CO2 25 H (19-24) mmol/L ABG O2 Saturation 97.8 H (94-97) % ABG Hematocrit 27 L (34.0-46.0) % ABG Potassium (3.4-4.5) mmol/L ABG Glucose 161 H (75-99) mg/dL Hemoglobin 8.9 L (11.4-16.0) gm/dL Sodium (137-145) mmol/L Carbon Dioxide (22-30) mmol/L Glucose (74-99) mg/dL POC Glucose (mg/dL) 156 H 181 H (75-99) mg/dL Calcium (8.4-10.2) mg/dL Magnesium (1.6-2.3) mg/dL AST (14-36) U/L Total Protein (6.3-8.2) g/dL Albumin (3.5-5.0) g/dL Arterial Blood Potassium (3.4-4.5) mmol/L Arterial Blood Glucose 161 H (75-99) mg/dL Crossmatch 10/11/21 10/11/21 10/11/21 Range/Units 14:15 14:15 14:28 WBC 12.6 H (3.8-10.6) k/uL RBC 3.57 L (3.80-5.40) m/uL Hgb 9.4 L D (11.4-16.0) gm/dL Hct 29.9 L (34.0-46.0) % RDW 17.9 H (11.5-15.5) % Neutrophils # 10.7 H (1.3-7.7) k/uL Lymphocytes # (1.0-4.8) k/uL ABG pH 7.26 L (7.35-7.45) ABG pCO2 56 H (35-45) mmHg ABG pO2 279 H (83-108) mmHg ABG Total CO2 27 H (19-24) mmol/L ABG O2 Saturation 100.0 H (94-97) % ABG Hematocrit (34.0-46.0) % ABG Potassium (3.4-4.5) mmol/L ABG Glucose (75-99) mg/dL Hemoglobin (11.4-16.0) gm/dL Sodium 134 L (137-145) mmol/L Carbon Dioxide (22-30) mmol/L Glucose 178 H (74-99) mg/dL POC Glucose (mg/dL) (75-99) mg/dL Calcium 8.2 L (8.4-10.2) mg/dL Magnesium 1.3 L (1.6-2.3) mg/dL AST (14-36) U/L Total Protein 5.4 L (6.3-8.2) g/dL Albumin 3.0 L (3.5-5.0) g/dL Arterial Blood Potassium (3.4-4.5) mmol/L Arterial Blood Glucose (75-99) mg/dL Crossmatch 10/11/21 10/11/21 10/11/21 Range/Units 15:13 16:15 17:11 WBC (3.8-10.6) k/uL RBC (3.80-5.40) m/uL Hgb (11.4-16.0) gm/dL Hct (34.0-46.0) % RDW (11.5-15.5) % Neutrophils # (1.3-7.7) k/uL Lymphocytes # (1.0-4.8) k/uL ABG pH (7.35-7.45) ABG pCO2 (35-45) mmHg ABG pO2 (83-108) mmHg ABG Total CO2 (19-24) mmol/L ABG O2 Saturation (94-97) % ABG Hematocrit (34.0-46.0) % ABG Potassium (3.4-4.5) mmol/L ABG Glucose (75-99) mg/dL Hemoglobin (11.4-16.0) gm/dL Sodium (137-145) mmol/L Carbon Dioxide (22-30) mmol/L Glucose (74-99) mg/dL POC Glucose (mg/dL) 161 H 154 H 130 H (75-99) mg/dL Calcium (8.4-10.2) mg/dL Magnesium (1.6-2.3) mg/dL AST (14-36) U/L Total Protein (6.3-8.2) g/dL Albumin (3.5-5.0) g/dL Arterial Blood Potassium (3.4-4.5) mmol/L Arterial Blood Glucose (75-99) mg/dL Crossmatch 10/11/21 10/11/21 10/11/21 Range/Units 17:54 17:54 18:04 WBC (3.8-10.6) k/uL RBC 2.98 L (3.80-5.40) m/uL Hgb 7.9 L D (11.4-16.0) gm/dL Hct 25.3 L (34.0-46.0) % RDW 18.7 H (11.5-15.5) % Neutrophils # (1.3-7.7) k/uL Lymphocytes # 0.8 L (1.0-4.8) k/uL ABG pH (7.35-7.45) ABG pCO2 (35-45) mmHg ABG pO2 123 H (83-108) mmHg ABG Total CO2 25 H (19-24) mmol/L ABG O2 Saturation 99.4 H (94-97) % ABG Hematocrit (34.0-46.0) % ABG Potassium (3.4-4.5) mmol/L ABG Glucose (75-99) mg/dL Hemoglobin (11.4-16.0) gm/dL Sodium (137-145) mmol/L Carbon Dioxide (22-30) mmol/L Glucose (74-99) mg/dL POC Glucose (mg/dL) 119 H (75-99) mg/dL Calcium (8.4-10.2) mg/dL Magnesium (1.6-2.3) mg/dL AST (14-36) U/L Total Protein (6.3-8.2) g/dL Albumin (3.5-5.0) g/dL Arterial Blood Potassium (3.4-4.5) mmol/L Arterial Blood Glucose (75-99) mg/dL Crossmatch 10/11/21 10/11/21 10/11/21 Range/Units 18:59 20:04 21:09 WBC (3.8-10.6) k/uL RBC (3.80-5.40) m/uL Hgb (11.4-16.0) gm/dL Hct (34.0-46.0) % RDW (11.5-15.5) % Neutrophils # (1.3-7.7) k/uL Lymphocytes # (1.0-4.8) k/uL ABG pH (7.35-7.45) ABG pCO2 (35-45) mmHg ABG pO2 (83-108) mmHg ABG Total CO2 (19-24) mmol/L ABG O2 Saturation (94-97) % ABG Hematocrit (34.0-46.0) % ABG Potassium (3.4-4.5) mmol/L ABG Glucose (75-99) mg/dL Hemoglobin (11.4-16.0) gm/dL Sodium (137-145) mmol/L Carbon Dioxide (22-30) mmol/L Glucose (74-99) mg/dL POC Glucose (mg/dL) 121 H 126 H 138 H (75-99) mg/dL Calcium (8.4-10.2) mg/dL Magnesium (1.6-2.3) mg/dL AST (14-36) U/L Total Protein (6.3-8.2) g/dL Albumin (3.5-5.0) g/dL Arterial Blood Potassium (3.4-4.5) mmol/L Arterial Blood Glucose (75-99) mg/dL Crossmatch 10/11/21 10/11/21 10/12/21 Range/Units 21:55 22:58 00:12 WBC (3.8-10.6) k/uL RBC (3.80-5.40) m/uL Hgb (11.4-16.0) gm/dL Hct (34.0-46.0) % RDW (11.5-15.5) % Neutrophils # (1.3-7.7) k/uL Lymphocytes # (1.0-4.8) k/uL ABG pH (7.35-7.45) ABG pCO2 (35-45) mmHg ABG pO2 (83-108) mmHg ABG Total CO2 (19-24) mmol/L ABG O2 Saturation (94-97) % ABG Hematocrit (34.0-46.0) % ABG Potassium (3.4-4.5) mmol/L ABG Glucose (75-99) mg/dL Hemoglobin (11.4-16.0) gm/dL Sodium (137-145) mmol/L Carbon Dioxide (22-30) mmol/L Glucose (74-99) mg/dL POC Glucose (mg/dL) 139 H 137 H 133 H (75-99) mg/dL Calcium (8.4-10.2) mg/dL Magnesium (1.6-2.3) mg/dL AST (14-36) U/L Total Protein (6.3-8.2) g/dL Albumin (3.5-5.0) g/dL Arterial Blood Potassium (3.4-4.5) mmol/L Arterial Blood Glucose (75-99) mg/dL Crossmatch 10/12/21 10/12/21 10/12/21 Range/Units 01:04 02:10 03:03 WBC (3.8-10.6) k/uL RBC (3.80-5.40) m/uL Hgb (11.4-16.0) gm/dL Hct (34.0-46.0) % RDW (11.5-15.5) % Neutrophils # (1.3-7.7) k/uL Lymphocytes # (1.0-4.8) k/uL ABG pH (7.35-7.45) ABG pCO2 (35-45) mmHg ABG pO2 (83-108) mmHg ABG Total CO2 (19-24) mmol/L ABG O2 Saturation (94-97) % ABG Hematocrit (34.0-46.0) % ABG Potassium (3.4-4.5) mmol/L ABG Glucose (75-99) mg/dL Hemoglobin (11.4-16.0) gm/dL Sodium (137-145) mmol/L Carbon Dioxide (22-30) mmol/L Glucose (74-99) mg/dL POC Glucose (mg/dL) 131 H 130 H 125 H (75-99) mg/dL Calcium (8.4-10.2) mg/dL Magnesium (1.6-2.3) mg/dL AST (14-36) U/L Total Protein (6.3-8.2) g/dL Albumin (3.5-5.0) g/dL Arterial Blood Potassium (3.4-4.5) mmol/L Arterial Blood Glucose (75-99) mg/dL Crossmatch 10/12/21 10/12/21 10/12/21 Range/Units 04:00 04:00 04:00 WBC (3.8-10.6) k/uL RBC 3.07 L (3.80-5.40) m/uL Hgb 8.2 L (11.4-16.0) gm/dL Hct 25.3 L (34.0-46.0) % RDW 18.1 H (11.5-15.5) % Neutrophils # (1.3-7.7) k/uL Lymphocytes # (1.0-4.8) k/uL ABG pH (7.35-7.45) ABG pCO2 (35-45) mmHg ABG pO2 (83-108) mmHg ABG Total CO2 (19-24) mmol/L ABG O2 Saturation (94-97) % ABG Hematocrit (34.0-46.0) % ABG Potassium (3.4-4.5) mmol/L ABG Glucose (75-99) mg/dL Hemoglobin (11.4-16.0) gm/dL Sodium 134 L (137-145) mmol/L Carbon Dioxide 21 L (22-30) mmol/L Glucose 115 H (74-99) mg/dL POC Glucose (mg/dL) 123 H (75-99) mg/dL Calcium 8.3 L (8.4-10.2) mg/dL Magnesium 1.4 L (1.6-2.3) mg/dL AST 53 H (14-36) U/L Total Protein 5.3 L (6.3-8.2) g/dL Albumin 3.1 L (3.5-5.0) g/dL Arterial Blood Potassium (3.4-4.5) mmol/L Arterial Blood Glucose (75-99) mg/dL Crossmatch 10/12/21 10/12/21 10/12/21 Range/Units 05:16 06:09 06:56 WBC (3.8-10.6) k/uL RBC (3.80-5.40) m/uL Hgb (11.4-16.0) gm/dL Hct (34.0-46.0) % RDW (11.5-15.5) % Neutrophils # (1.3-7.7) k/uL Lymphocytes # (1.0-4.8) k/uL ABG pH (7.35-7.45) ABG pCO2 (35-45) mmHg ABG pO2 (83-108) mmHg ABG Total CO2 (19-24) mmol/L ABG O2 Saturation (94-97) % ABG Hematocrit (34.0-46.0) % ABG Potassium (3.4-4.5) mmol/L ABG Glucose (75-99) mg/dL Hemoglobin (11.4-16.0) gm/dL Sodium (137-145) mmol/L Carbon Dioxide (22-30) mmol/L Glucose (74-99) mg/dL POC Glucose (mg/dL) 139 H 171 H 166 H (75-99) mg/dL Calcium (8.4-10.2) mg/dL Magnesium (1.6-2.3) mg/dL AST (14-36) U/L Total Protein (6.3-8.2) g/dL Albumin (3.5-5.0) g/dL Arterial Blood Potassium (3.4-4.5) mmol/L Arterial Blood Glucose (75-99) mg/dL Crossmatch - Imaging and Cardiology Chest x-ray: report reviewed, image reviewed Assessment and Plan Assessment: 1. Multivessel coronary artery disease with left main disease 2. Non-ST elevated myocardial infarction this admission 3. Type 2 diabetes mellitus 4. History of hypertension 5. Hyperlipidemia 6. History of asthma 7. History of COPD 8. Remote history of nicotine abuse, quit smoking over 20 years ago 9. Occasional marijuana use 10. Methamphetamine abuse 11. Obesity 12. Fibromyalgia 13. Osteoarthritis 14. Family history of coronary artery disease Plan: 1. Continue aspirin, statin and beta marcos. We will increase her metoprolol tartrate to 50 mg by mouth twice a day. 2. Continue Lovenox 40 mg subcu daily for DVT prophylaxis. 3. Wean O2 as tolerated. Encourage incentive spirometry use 10 times every lluvia r while awake. Bronchodilators per pulmonology/critical care medicine. 4. Will continue to monitor daily labs and chest x-rays. Electrolyte replacement per protocol. 5. GI/DVT prophylaxis. 6. Insulin management per primary care service. Patient is a diabetic, preoperative hemoglobin A1c 7.0%. She will need tight blood sugar control to promote healing and prevent infection. 7. Pain control per current medication regimen. Toradol has been added for additional pain control. 8. Increase activity, ambulate as tolerated. PT/OT/cardiac rehab consulted. 9. Continue Paulino catheter for another 24 hours for strict accurate intake and output. Daily weights 10. Remove right IJ Vining-Simona catheter. Keep right IJ Cordis in place with continuous CVP monitoring. 11. We will remove her mediastinal chest tube and keep her left pleural chest tube in place to low continuous wall suction -20 cm H2O. 12. More recommendations to follow based on patient's clinical course. Time with Patient: Greater than 30
[2021-10-12] MEDS: IPRATROPIUM-ALBUTEROL 3 ML NEB INHALATION SCH ×4 (09:27→19:21)
--- NOTE | 2021-10-12 09:31 | P.PN ---
Subjective Progress Note Date: 10/12/21 I saw the patient immediately after the patient arrived to the intensive care unit following the cardiac bypass surgery. This was a off pump coronary artery bypass surgery 3 with SIMPSON to LAD. The patient for surgery, was brought into the intensive care unit intubated on a mechanical ventilator and the patient was on propofol. Initial ventilator settings included a assist-control mode at the rate of 12 with tidal volume of 475 with an FiO2 of 100% and a PEEP of 10. Chest x-ray was noted. Blood gases was noted. During the course of this postsurgical phase, the patient was weaned off gradually and FiO2 was dropped down and subsequently the PEEP was reduced down to 10. Probable was gradually w eaned off and at that point weaning parameters were checked and the parameters were adequate. Following that the patient was given a spelled his breathing trial with a pressure support of 5 and PEEP of 5. Her blood gases following the reading Harris showed a pH of 7.4 with a pCO2 of 39 and pO2 of 123. At that point the patient was extubated and currently she is on 3 L of oxygen by nasal cannula. Chest x-ray postop showed adequate positioning of the orotracheal tube. No evidence of any pneumothorax. The patient has chest tubes and the patient has a mediastinal chest tube and the left pleural chest tube and output from the chest tubes have been essentially minimal. The patient did have some limited amount of subcutaneous emphysema on the left as noted on the chest x- ray. At this point in time, the output from the chest tubes are in order of 200 mL total 11 from the operating room. The patient has no evidence of any air leak. Hemodynamically, the patient is producing adequate amount of urine output. Cardiac rhythm is sinus. The cardiac output and index are 7.2 and 3.7 respectively and the pulmonary artery pressure is 38/22 cm of water. Her pain is under good control. She was offered extremities without any limitation. Note that this patient was extubated with a six-hour window after arriving to the intensive care unit. The patient is currently on nitroglycerin drip at 5 g per minute and Cardizem drip at 5 mg an hour. Insulin drip is at 0.5 units an hour and the patient is also on lactated Ringer at the rate of 50 mL an hour. Urine output is adequate for now. The patient is seen today 10/12/2021 in follow-up in the intensive care unit. She is currently resting quite comfortably in bed. Awake and alert in no acute distress. She successfully extubated within 6 hours of surgery. She is currently on 2 L/m per nasal cannula. She's been hemodynamically stable. Chest x-ray reveals persistent cardiomegaly with central vascular congestion and small tiny bilateral effusions along with left greater than right She is working well with the incentive spirometer pulling approxi-750 mL. Mediastinal and pleural chest tubes remain in place. [place]-Simona catheter has been removed. Last cardiac output and index were stable. She is still on insulin drip at 1.5 units per hour. Cardizem drip at 5 mg per hour. Currently in sinus rhythm. Lactated Ringer's at 50 MLS per hour. White count 7.4. Hemoglobin 8.2. Platelets 11/24/2026. Sodium 134. Potassium 4.0. Creatinine 0.62. Magnesium 1.4. Continued on DuoNeb inhalations, antibiotics in the form of vancomycin. Objective - Vital Signs Vital signs: Vital Signs Temp 98.9 F 10/12/21 04:00 Pulse 106 H 10/12/21 06:00 Resp 18 10/12/21 06:00 BP 106/49 10/12/21 06:00 Pulse Ox 94 L 10/12/21 06:00 Intake & Output 10/11/21 10/12/21 10/12/21 18:59 06:59 18:59 Intake Total 1384.086 924.893 56.944 Output Total 1400 1225 75 Balance -15.914 -300.107 -18.056 Weight 94.9 kg Intake: IV 1344 870 50 ACETAMINOPHEN IV (For NPO 100 ) 1,000 mg In Empty Bag 1 bag @ 400 mls/hr IVPB Q6H [facility] Rx#:[id number] Albumin Human 5% 500 ml @ 500 0 mls/hr IVPB .STK-MED ONE Rx#:[id number] Albumin Human 5% 500 ml 250 In Empty Bag 1 bag @ 250 mls/hr IVPB ONCE ONE Rx#: [id number] CO/CI 110 Diltiazem 125 mg In 20 5 Sodium Chloride 0.9% 100 ml @ 5 MG/HR 5 mls/hr IV .Q24H [facility] Rx#:[id number] Lactated Ringers 1,000 ml 200 500 50 @ 50 mls/hr IV .Q20H [facility] Rx#:[id number] Nitroglycerin-D5w Pmx 50 20 5 mg In Dextrose/Water 1 250ml.bag @ 5 MCG/MIN 1.5 mls/hr IV .Q24H [facility] Rx#: [id number] Vancomycin 1,500 mg In 250 Sodium Chloride 0.9% 250 ml @ 125 mls/hr IVPB Q12H [facility] Rx#:[id number] Intake, IV Titration 40.086 54.893 6.944 Amount Clevidipine Butyrate 25 0.6 mg In Empty Bag 1 bag @ 1 MG/HR 2 mls/hr IV .Q24H [facility] Rx#:[id number] Dexmedetomidine/0.9% NaCl 6.810 (Pmx) 400 mcg In Empty Bag 1 bag @ 0.2 MCG/KG/HR 4.54 mls/hr IV .Q22H2M [facility] Rx#:[id number] Diltiazem 125 mg In 44.667 Sodium Chloride 0.9% 100 ml @ 5 MG/HR 5 mls/hr IV .Q24H [facility] Rx#:[id number] Insulin Regular 100 unit 7.070 10.226 6.944 In Sodium Chloride 0.9% 100 ml @ Per Protocol IV .Q0M [facility] Rx#:[id number] propofoL 1,000 mg In 25.606 Empty Bag 1 bag @ Titrate IV .Q0M [facility] Rx#: [id number] Output: Chest Tube Drainage 110 580 Chest Tube Left Pleural/ 110 580 Mediastinal Drainage 10 30 Wrist 10 30 Urine 490 635 45 Estimated Blood Loss 800 Other: Voiding Method Indwelling Catheter Indwelling Catheter ABP, PAP, CO, CI - Last Documented Arterial Blood Pressure 109/53 Pulmonary Artery Pressure 34/16 Cardiac Output 5.8 Cardiac Index 3 - Exam GENERAL EXAM: Alert, comfortable in no apparent distress. HEAD: Normocephalic. EYES: Normal reaction of pupils, equal size. NOSE: Clear with pink turbinates. THROAT: No erythema or exudates. NECK: No masses, no JVD. CHEST: Heart hugger in place. No chest wall deformity. Mediastinal, pleural chest tubes in place LUNGS: Equal air entry with faint crackles in the posteriior bases. CVS: S1 and S2 normal with no audible murmur, regular rhythm. ABDOMEN: No hepatosplenomegaly, normal bowel sounds, no guarding or rigidity. SPINE: No scoliosis or deformity SKIN: No rashes CENTRAL NERVOUS SYSTEM: No focal deficits, tone is normal in all 4 extremities. EXTREMITIES: Left radial JOSE drain in place. There is no peripheral edema. No clubbing, no cyanosis. Peripheral pulses are intact. - Labs CBC & Chem 7: 10/12/21 04:00 10/12/21 04:00 Labs: Abnormal Lab Results - Last 24 Hours (Table) 10/10/21 10/11/21 10/11/21 Range/Units 07:58 09:02 10:38 WBC (3.8-10.6) k/uL RBC (3.80-5.40) m/uL Hgb (11.4-16.0) gm/dL Hct (34.0-46.0) % RDW (11.5-15.5) % Neutrophils # (1.3-7.7) k/uL Lymphocytes # (1.0-4.8) k/uL ABG pH (7.35-7.45) ABG pCO2 (35-45) mmHg ABG pO2 139 H 138 H (83-108) mmHg ABG Total CO2 26 H (19-24) mmol/L ABG O2 Saturation 99.3 H 99.1 H (94-97) % ABG Hematocrit 28 L 29 L (34.0-46.0) % ABG Potassium 3.3 L (3.4-4.5) mmol/L ABG Glucose 114 H 181 H (75-99) mg/dL Hemoglobin 9.2 L 9.5 L (11.4-16.0) gm/dL Sodium (137-145) mmol/L Carbon Dioxide (22-30) mmol/L Glucose (74-99) mg/dL POC Glucose (mg/dL) (75-99) mg/dL Calcium (8.4-10.2) mg/dL Magnesium (1.6-2.3) mg/dL AST (14-36) U/L Total Protein (6.3-8.2) g/dL Albumin (3.5-5.0) g/dL Arterial Blood Potassium 3.3 L (3.4-4.5) mmol/L Arterial Blood Glucose 114 H 181 H (75-99) mg/dL Crossmatch See Detail 10/11/21 10/11/21 10/11/21 Range/Units 11:24 11:53 12:32 WBC (3.8-10.6) k/uL RBC (3.80-5.40) m/uL Hgb (11.4-16.0) gm/dL Hct (34.0-46.0) % RDW (11.5-15.5) % Neutrophils # (1.3-7.7) k/uL Lymphocytes # (1.0-4.8) k/uL ABG pH (7.35-7.45) ABG pCO2 (35-45) mmHg ABG pO2 197 H 195 H 192 H (83-108) mmHg ABG Total CO2 26 H 26 H 25 H (19-24) mmol/L ABG O2 Saturation 99.8 H 99.7 H 99.6 H (94-97) % ABG Hematocrit 28 L 28 L 28 L (34.0-46.0) % ABG Potassium (3.4-4.5) mmol/L ABG Glucose 151 H 145 H 155 H (75-99) mg/dL Hemoglobin 9.2 L 9.1 L 9.1 L (11.4-16.0) gm/dL Sodium (137-145) mmol/L Carbon Dioxide (22-30) mmol/L Glucose (74-99) mg/dL POC Glucose (mg/dL) (75-99) mg/dL Calcium (8.4-10.2) mg/dL Magnesium (1.6-2.3) mg/dL AST (14-36) U/L Total Protein (6.3-8.2) g/dL Albumin (3.5-5.0) g/dL Arterial Blood Potassium (3.4-4.5) mmol/L Arterial Blood Glucose 151 H 145 H 155 H (75-99) mg/dL Crossmatch 10/11/21 10/11/21 10/11/21 Range/Units 13:08 14:05 14:14 WBC (3.8-10.6) k/uL RBC (3.80-5.40) m/uL Hgb (11.4-16.0) gm/dL Hct (34.0-46.0) % RDW (11.5-15.5) % Neutrophils # (1.3-7.7) k/uL Lymphocytes # (1.0-4.8) k/uL ABG pH (7.35-7.45) ABG pCO2 (35-45) mmHg ABG pO2 (83-108) mmHg ABG Total CO2 25 H (19-24) mmol/L ABG O2 Saturation 97.8 H (94-97) % ABG Hematocrit 27 L (34.0-46.0) % ABG Potassium (3.4-4.5) mmol/L ABG Glucose 161 H (75-99) mg/dL Hemoglobin 8.9 L (11.4-16.0) gm/dL Sodium (137-145) mmol/L Carbon Dioxide (22-30) mmol/L Glucose (74-99) mg/dL POC Glucose (mg/dL) 156 H 181 H (75-99) mg/dL Calcium (8.4-10.2) mg/dL Magnesium (1.6-2.3) mg/dL AST (14-36) U/L Total Protein (6.3-8.2) g/dL Albumin (3.5-5.0) g/dL Arterial Blood Potassium (3.4-4.5) mmol/L Arterial Blood Glucose 161 H (75-99) mg/dL Crossmatch 10/11/21 10/11/21 10/11/21 Range/Units 14:15 14:15 14:28 WBC 12.6 H (3.8-10.6) k/uL RBC 3.57 L (3.80-5.40) m/uL Hgb 9.4 L D (11.4-16.0) gm/dL Hct 29.9 L (34.0-46.0) % RDW 17.9 H (11.5-15.5) % Neutrophils # 10.7 H (1.3-7.7) k/uL Lymphocytes # (1.0-4.8) k/uL ABG pH 7.26 L (7.35-7.45) ABG pCO2 56 H (35-45) mmHg ABG pO2 279 H (83-108) mmHg ABG Total CO2 27 H (19-24) mmol/L ABG O2 Saturation 100.0 H (94-97) % ABG Hematocrit (34.0-46.0) % ABG Potassium (3.4-4.5) mmol/L ABG Glucose (75-99) mg/dL Hemoglobin (11.4-16.0) gm/dL Sodium 134 L (137-145) mmol/L Carbon Dioxide (22-30) mmol/L Glucose 178 H (74-99) mg/dL POC Glucose (mg/dL) (75-99) mg/dL Calcium 8.2 L (8.4-10.2) mg/dL Magnesium 1.3 L (1.6-2.3) mg/dL AST (14-36) U/L Total Protein 5.4 L (6.3-8.2) g/dL Albumin 3.0 L (3.5-5.0) g/dL Arterial Blood Potassium (3.4-4.5) mmol/L Arterial Blood Glucose (75-99) mg/dL Crossmatch 10/11/21 10/11/21 10/11/21 Range/Units 15:13 16:15 17:11 WBC (3.8-10.6) k/uL RBC (3.80-5.40) m/uL Hgb (11.4-16.0) gm/dL Hct (34.0-46.0) % RDW (11.5-15.5) % Neutrophils # (1.3-7.7) k/uL Lymphocytes # (1.0-4.8) k/uL ABG pH (7.35-7.45) ABG pCO2 (35-45) mmHg ABG pO2 (83-108) mmHg ABG Total CO2 (19-24) mmol/L ABG O2 Saturation (94-97) % ABG Hematocrit (34.0-46.0) % ABG Potassium (3.4-4.5) mmol/L ABG Glucose (75-99) mg/dL Hemoglobin (11.4-16.0) gm/dL Sodium (137-145) mmol/L Carbon Dioxide (22-30) mmol/L Glucose (74-99) mg/dL POC Glucose (mg/dL) 161 H 154 H 130 H (75-99) mg/dL Calcium (8.4-10.2) mg/dL Magnesium (1.6-2.3) mg/dL AST (14-36) U/L Total Protein (6.3-8.2) g/dL Albumin (3.5-5.0) g/dL Arterial Blood Potassium (3.4-4.5) mmol/L Arterial Blood Glucose (75-99) mg/dL Crossmatch 10/11/21 10/11/21 10/11/21 Range/Units 17:54 17:54 18:04 WBC (3.8-10.6) k/uL RBC 2.98 L (3.80-5.40) m/uL Hgb 7.9 L D (11.4-16.0) gm/dL Hct 25.3 L (34.0-46.0) % RDW 18.7 H (11.5-15.5) % Neutrophils # (1.3-7.7) k/uL Lymphocytes # 0.8 L (1.0-4.8) k/uL ABG pH (7.35-7.45) ABG pCO2 (35-45) mmHg ABG pO2 123 H (83-108) mmHg ABG Total CO2 25 H (19-24) mmol/L ABG O2 Saturation 99.4 H (94-97) % ABG Hematocrit (34.0-46.0) % ABG Potassium (3.4-4.5) mmol/L ABG Glucose (75-99) mg/dL Hemoglobin (11.4-16.0) gm/dL Sodium (137-145) mmol/L Carbon Dioxide (22-30) mmol/L Glucose (74-99) mg/dL POC Glucose (mg/dL) 119 H (75-99) mg/dL Calcium (8.4-10.2) mg/dL Magnesium (1.6-2.3) mg/dL AST (14-36) U/L Total Protein (6.3-8.2) g/dL Albumin (3.5-5.0) g/dL Arterial Blood Potassium (3.4-4.5) mmol/L Arterial Blood Glucose (75-99) mg/dL Crossmatch 10/11/21 10/11/21 10/11/21 Range/Units 18:59 20:04 21:09 WBC (3.8-10.6) k/uL RBC (3.80-5.40) m/uL Hgb (11.4-16.0) gm/dL Hct (34.0-46.0) % RDW (11.5-15.5) % Neutrophils # (1.3-7.7) k/uL Lymphocytes # (1.0-4.8) k/uL ABG pH (7.35-7.45) ABG pCO2 (35-45) mmHg ABG pO2 (83-108) mmHg ABG Total CO2 (19-24) mmol/L ABG O2 Saturation (94-97) % ABG Hematocrit (34.0-46.0) % ABG Potassium (3.4-4.5) mmol/L ABG Glucose (75-99) mg/dL Hemoglobin (11.4-16.0) gm/dL Sodium (137-145) mmol/L Carbon Dioxide (22-30) mmol/L Glucose (74-99) mg/dL POC Glucose (mg/dL) 121 H 126 H 138 H (75-99) mg/dL Calcium (8.4-10.2) mg/dL Magnesium (1.6-2.3) mg/dL AST (14-36) U/L Total Protein (6.3-8.2) g/dL Albumin (3.5-5.0) g/dL Arterial Blood Potassium (3.4-4.5) mmol/L Arterial Blood Glucose (75-99) mg/dL Crossmatch 10/11/21 10/11/21 10/12/21 Range/Units 21:55 22:58 00:12 WBC (3.8-10.6) k/uL RBC (3.80-5.40) m/uL Hgb (11.4-16.0) gm/dL Hct (34.0-46.0) % RDW (11.5-15.5) % Neutrophils # (1.3-7.7) k/uL Lymphocytes # (1.0-4.8) k/uL ABG pH (7.35-7.45) ABG pCO2 (35-45) mmHg ABG pO2 (83-108) mmHg ABG Total CO2 (19-24) mmol/L ABG O2 Saturation (94-97) % ABG Hematocrit (34.0-46.0) % ABG Potassium (3.4-4.5) mmol/L ABG Glucose (75-99) mg/dL Hemoglobin (11.4-16.0) gm/dL Sodium (137-145) mmol/L Carbon Dioxide (22-30) mmol/L Glucose (74-99) mg/dL POC Glucose (mg/dL) 139 H 137 H 133 H (75-99) mg/dL Calcium (8.4-10.2) mg/dL Magnesium (1.6-2.3) mg/dL AST (14-36) U/L Total Protein (6.3-8.2) g/dL Albumin (3.5-5.0) g/dL Arterial Blood Potassium (3.4-4.5) mmol/L Arterial Blood Glucose (75-99) mg/dL Crossmatch 10/12/21 10/12/21 10/12/21 Range/Units 01:04 02:10 03:03 WBC (3.8-10.6) k/uL RBC (3.80-5.40) m/uL Hgb (11.4-16.0) gm/dL Hct (34.0-46.0) % RDW (11.5-15.5) % Neutrophils # (1.3-7.7) k/uL Lymphocytes # (1.0-4.8) k/uL ABG pH (7.35-7.45) ABG pCO2 (35-45) mmHg ABG pO2 (83-108) mmHg ABG Total CO2 (19-24) mmol/L ABG O2 Saturation (94-97) % ABG Hematocrit (34.0-46.0) % ABG Potassium (3.4-4.5) mmol/L ABG Glucose (75-99) mg/dL Hemoglobin (11.4-16.0) gm/dL Sodium (137-145) mmol/L Carbon Dioxide (22-30) mmol/L Glucose (74-99) mg/dL POC Glucose (mg/dL) 131 H 130 H 125 H (75-99) mg/dL Calcium (8.4-10.2) mg/dL Magnesium (1.6-2.3) mg/dL AST (14-36) U/L Total Protein (6.3-8.2) g/dL Albumin (3.5-5.0) g/dL Arterial Blood Potassium (3.4-4.5) mmol/L Arterial Blood Glucose (75-99) mg/dL Crossmatch 10/12/21 10/12/21 10/12/21 Range/Units 04:00 04:00 04:00 WBC (3.8-10.6) k/uL RBC 3.07 L (3.80-5.40) m/uL Hgb 8.2 L (11.4-16.0) gm/dL Hct 25.3 L (34.0-46.0) % RDW 18.1 H (11.5-15.5) % Neutrophils # (1.3-7.7) k/uL Lymphocytes # (1.0-4.8) k/uL ABG pH (7.35-7.45) ABG pCO2 (35-45) mmHg ABG pO2 (83-108) mmHg ABG Total CO2 (19-24) mmol/L ABG O2 Saturation (94-97) % ABG Hematocrit (34.0-46.0) % ABG Potassium (3.4-4.5) mmol/L ABG Glucose (75-99) mg/dL Hemoglobin (11.4-16.0) gm/dL Sodium 134 L (137-145) mmol/L Carbon Dioxide 21 L (22-30) mmol/L Glucose 115 H (74-99) mg/dL POC Glucose (mg/dL) 123 H (75-99) mg/dL Calcium 8.3 L (8.4-10.2) mg/dL Magnesium 1.4 L (1.6-2.3) mg/dL AST 53 H (14-36) U/L Total Protein 5.3 L (6.3-8.2) g/dL Albumin 3.1 L (3.5-5.0) g/dL Arterial Blood Potassium (3.4-4.5) mmol/L Arterial Blood Glucose (75-99) mg/dL Crossmatch 10/12/21 10/12/21 10/12/21 Range/Units 05:16 06:09 06:56 WBC (3.8-10.6) k/uL RBC (3.80-5.40) m/uL Hgb (11.4-16.0) gm/dL Hct (34.0-46.0) % RDW (11.5-15.5) % Neutrophils # (1.3-7.7) k/uL Lymphocytes # (1.0-4.8) k/uL ABG pH (7.35-7.45) ABG pCO2 (35-45) mmHg ABG pO2 (83-108) mmHg ABG Total CO2 (19-24) mmol/L ABG O2 Saturation (94-97) % ABG Hematocrit (34.0-46.0) % ABG Potassium (3.4-4.5) mmol/L ABG Glucose (75-99) mg/dL Hemoglobin (11.4-16.0) gm/dL Sodium (137-145) mmol/L Carbon Dioxide (22-30) mmol/L Glucose (74-99) mg/dL POC Glucose (mg/dL) 139 H 171 H 166 H (75-99) mg/dL Calcium (8.4-10.2) mg/dL Magnesium (1.6-2.3) mg/dL AST (14-36) U/L Total Protein (6.3-8.2) g/dL Albumin (3.5-5.0) g/dL Arterial Blood Potassium (3.4-4.5) mmol/L Arterial Blood Glucose (75-99) mg/dL Crossmatch 10/12/21 Range/Units 08:56 WBC (3.8-10.6) k/uL RBC (3.80-5.40) m/uL Hgb (11.4-16.0) gm/dL Hct (34.0-46.0) % RDW (11.5-15.5) % Neutrophils # (1.3-7.7) k/uL Lymphocytes # (1.0-4.8) k/uL ABG pH (7.35-7.45) ABG pCO2 (35-45) mmHg ABG pO2 (83-108) mmHg ABG Total CO2 (19-24) mmol/L ABG O2 Saturation (94-97) % ABG Hematocrit (34.0-46.0) % ABG Potassium (3.4-4.5) mmol/L ABG Glucose (75-99) mg/dL Hemoglobin (11.4-16.0) gm/dL Sodium (137-145) mmol/L Carbon Dioxide (22-30) mmol/L Glucose (74-99) mg/dL POC Glucose (mg/dL) 153 H (75-99) mg/dL Calcium (8.4-10.2) mg/dL Magnesium (1.6-2.3) mg/dL AST (14-36) U/L Total Protein (6.3-8.2) g/dL Albumin (3.5-5.0) g/dL Arterial Blood Potassium (3.4-4.5) mmol/L Arterial Blood Glucose (75-99) mg/dL Crossmatch Assessment and Plan Assessment: Coronary artery disease status post coronary artery bypass grafting, post op day #1 Hypertension Hyperlipidemia Diabetes mellitus currently on insulin at drip at 1.5 units an hour History of methamphetamine use Occasional marijuana use Previous chronic tobacco dependence Obesity Fibromyalgia Osteoarthritis History of sleep apnea Plan: The patient was seen and evaluated Currently stable from the pulmonary critical care standpoint [place]-Simona catheter removed Possible chest tube removal Titrate the insulin drip as tolerated Currently on a Cardizem drip Increase her activity as tolerated Continues to work well with the incentive spirometer Titrate the FiO2 as tolerated We will continue to follow and make further recommendations based on her clinical status I, the cosigning physician, performed a history & physical examination of the patient. Lungs sounds with faint crackles in the posterior bases. Maintaining good O2 saturations in the 90s on 2 L/m per nasal cannula. I discussed the assessment and plan of care with my nurse practitioner, Thi Pacheco. I attest to the above note as dictated by her.
[2021-10-12 10:11] LABS: Glucose,Whole Blood 138 mg/dL (75-99)
[2021-10-12 11:14] LABS: Glucose,Whole Blood 161 mg/dL (75-99)
[2021-10-12] MEDS: LACTATED RINGERS 1,000 ML IV SCH (11:15)
[2021-10-12] MEDS ORDERED: amLODIPine 2.5 MG TAB PO SCH (11:30)
[2021-10-12 12:20] LABS: Glucose,Whole Blood 191 mg/dL (75-99)
--- NOTE | 2021-10-12 13:41 | PCN ---
PROCEDURE NOTE Mari is a 71-year-old lady was admitted to hospital with acute coronary syndrome, underwent cardiac catheterization that revealed [place] 3-vessel coronary artery disease and underwent bypass surgery yesterday. Today is postop day #1. She is doing well, extubated, remains in sinus rhythm and not on any pressors. Her bypass surgery involved SIMPSON to LAD, radial artery graft to OM, SIMPSON is probably a jump graft going to LAD and ramus intermedius. The left atrial appendage was clipped. This morning patient is doing better and does not have any new cardiac symptoms. She is awake, alert, and remains in sinus rhythm with a heart rate of around 100 beats per minute. Blood pressure is 127/62, respiratory is 19, O2 saturation is 93%. Chest exam reveals diminished air entry at the bases. Heart exam reveals first and second heart sounds. No gallop. I do not hear any pericardial rub. Abdomen is soft. Exam of extremities did not reveal any edema. Peripheral pulses are felt. She is currently on aspirin, Plavix, IV Cardizem and Lopressor with Lovenox and Lipitor. ASSESSMENT: [place] 3-vessel coronary artery disease status post bypass surgery with sequential SIMPSON to LAD and ramus intermedius with radial artery graft to OM. PLAN: Continue with incentive spirometry. Continue with current medications. MMODL / IJN: [id number] /
[2021-10-12 14:08] LABS: Glucose,Whole Blood 267 mg/dL (75-99)
[2021-10-12] MEDS ORDERED: BACLOFEN 10 MG TAB PO PRN (14:40)
[2021-10-12 15:06] LABS: Glucose,Whole Blood 239 mg/dL (75-99)
[2021-10-12 16:59] LABS: Glucose,Whole Blood 177 mg/dL (75-99)
[2021-10-12 18:04] LABS: Glucose,Whole Blood 206 mg/dL (75-99)
[2021-10-12] MEDS: INSULIN REGULAR 100 UNIT in SODIUM CHLORIDE 0.9% 100 ML IV SCH (18:47)
[2021-10-12 18:54] LABS: Glucose,Whole Blood 188 mg/dL (75-99)
--- NOTE | 2021-10-12 19:49 | P.PN ---
Subjective Progress Note Date: 10/12/21 Mark Moore, he is a 71-year-old female who presented to [facility] emergency room with a chief complaint of worsening shortness of breath and chest discomfort. She was evaluated in the emergency room vital examination on presentation revealed a temperature of 97.7 pulse 127 respiration 26 blood pressure 148/104 pulse ox 100% on room air Laboratory data revealed a white blood count of 16.1 hemoglobin 14.8 platelet count 509 sodium 134 potassium 4.1 chloride 96 CO2 16 BUN 16 creatinine 0.9 glucose level was 182 troponin level was elevated at 0.146 plasma lactic acid was elevated at 2.1 urine toxicology screen was positive for methamphetamine, benzodiazepine, and marijuana. Testing in the emergency room revealed CT angiogram of the chest revealed no evidence of acute pulmonary embolism, EKG revealed left bundle branch block Patient was admitted to medical floor for further evaluation and treatment, she was started on IV heparin cardiology and pulmonary consultation were requested. Past medical history is significant for history of hypertension, history of hyperlipidemia, history of anxiety disorder, history of restless leg syndrome, history of diabetes mellitus type 2, history of asthma, history of obstructive sleep apnea, and previous history of smoking. On 10/08/2021 patient underwent cardiac catheterization revealing multivessel disease. Cardiothoracic surgery is following plans for coronary artery bypass graft surgery on Monday. Patient remains on heparin drip. At this time patient denies chest pain or shortness breath. Patient denies nausea vomiting or diarrhea. Pulmonary and cardiology services also following. Preoperative workup in progress per cardiothoracic surgery On 10/09/2021atient was seen and examined on the medical floor, she is alert and oriented x 3 in no distress, she denies any complaints there is no fever or chills no headache or dizziness no chest pain no shortness of breath no palpitation no cough no nausea or vomiting no abdominal pain no diarrhea no blood in the stools no burning with urination no frequency or urgency and no hematuria, there is no weakness or numbness in any of the extremities no change in vision speech or gait. Plan is for coronary artery bypass graft surgery on Monday. Patient understands condition and plans well. On 10/10/2021 patient is alert and oriented 3 resting comfortably in bed. Pat ient denies chest pain or shortness breath. Patient denies nausea vomiting or diarrhea. Patient denies any urinary burning or frequency. Patient remains on IV heparin. Plans for coronary artery bypass graft surgery tomorrow 10/11/[address] Brewer On 10/11/2021, patient was not seen she was in operating room all day. On 10/12/2021 patient was seen and examined in the ICU she is alert and oriented in no apparent distress there is no fever or chills no headache or dizziness no chest pain no shortness of breath no cough no nausea or vomiting no abdominal pain no diarrhea and no urinary symptoms vital exam reveals a temperature of 98.9 pulse 106 respiration 18 blood pressure 106/49 pulse ox 94% on 2 L nasal cannula white blood count is 7.4 hemoglobin 8.2 platelet count 227 BUN 10 crea tinine 0.62 Objective - Vital Signs Vital signs: Vital Signs Temp 98.2 F 10/12/21 12:00 Pulse 87 10/12/21 13:00 Resp 25 H 10/12/21 13:00 BP 106/49 10/12/21 06:00 Pulse Ox 95 10/12/21 13:00 Intake & Output 10/11/21 10/12/21 10/12/21 18:59 06:59 18:59 Intake Total 1384.086 924.893 926.346 Output Total 1400 1225 808 Balance -15.914 -300.107 118.346 Weight 94.9 kg Intake: IV 1344 870 506.5 ACETAMINOPHEN IV (For NPO 100 ) 1,000 mg In Empty Bag 1 bag @ 400 mls/hr IVPB Q6H [facility] Rx#:[id number] Albumin Human 5% 500 ml @ 500 0 mls/hr IVPB .STK-[facility] ONE Rx#:[id number] Albumin Human 5% 500 ml 250 In Empty Bag 1 bag @ 250 mls/hr IVPB ONCE ONE Rx#: [id number] CO/CI 110 20 Diltiazem 125 mg In 20 5 15 Sodium Chloride 0.9% 100 ml @ 5 MG/HR 5 mls/hr IV .Q24H [facility] Rx#:[id number] Lactated Ringers 1,000 ml 200 500 170 @ 20 mls/hr IV .Q24H [facility] Rx#:[id number] Magnesium Sulfate-D5w Pmx 300 1 gm In Dextrose/Water 1 100ml.bag @ 100 mls/hr IVPB Q1H [facility] Rx#: [id number] Nitroglycerin-D5w Pmx 50 20 5 1.5 mg In Dextrose/Water 1 250ml.bag @ 5 MCG/MIN 1.5 mls/hr IV .Q24H [facility] Rx#: [id number] Vancomycin 1,500 mg In 250 Sodium Chloride 0.9% 250 ml @ 125 mls/hr IVPB Q12H [facility] Rx#:[id number] Intake, IV Titration 40.086 54.893 19.846 Amount Clevidipine Butyrate 25 0.6 mg In Empty Bag 1 bag @ 1 MG/HR 2 mls/hr IV .Q24H [facility] Rx#:[id number] Dexmedetomidine/0.9% NaCl 6.810 (Pmx) 400 mcg In Empty Bag 1 bag @ 0.2 MCG/KG/HR 4.54 mls/hr IV .Q22H2M [facility] Rx#:[id number] Diltiazem 125 mg In 44.667 Sodium Chloride 0.9% 100 ml @ 5 MG/HR 5 mls/hr IV .Q24H [facility] Rx#:[id number] Insulin Regular 100 unit 7.070 10.226 19.846 In Sodium Chloride 0.9% 100 ml @ Per Protocol IV .Q0M [facility] Rx#:[id number] propofoL 1,000 mg In 25.606 Empty Bag 1 bag @ Titrate IV .Q0M [facility] Rx#: [id number] Oral 400 Output: Chest Tube Drainage 110 580 103 Chest Tube Left Pleural/ 110 580 103 Mediastinal Drainage 10 30 Wrist 10 30 Urine 490 635 675 Estimated Blood Loss 800 Other: Voiding Method Indwelling Catheter Indwelling Catheter Indwelling Catheter ABP, PAP, CO, CI - Last Documented Arterial Blood Pressure 104/48 Pulmonary Artery Pressure 30/13 Cardiac Output 7.9 Cardiac Index 4.1 - Exam In general patient is alert and oriented x 3 in no distress HEENT head normocephalic and atraumatic Neck is supple no JVD no goiter no lymphadenopathy no carotid bruit Chest examination is clear to auscultation no crackles no wheezing Cardiac exam reveals regular heart sounds S1 and S2 no gallops no murmurs Abdomen is soft nontender no organomegaly with normal bowel sounds Extremity exam reveals no edema no cyanosis or clubbing Neurological examination reveals no gross focal deficits - Labs CBC & Chem 7: 10/12/21 04:00 10/12/21 04:00 Labs: Abnormal Lab Results - Last 24 Hours (Table) 10/10/21 10/11/21 10/11/21 Range/Units 07:58 14:14 14:15 WBC 12.6 H (3.8-10.6) k/uL RBC 3.57 L (3.80-5.40) m/uL Hgb 9.4 L D (11.4-16.0) gm/dL Hct 29.9 L (34.0-46.0) % RDW 17.9 H (11.5-15.5) % Neutrophils # 10.7 H (1.3-7.7) k/uL Lymphocytes # (1.0-4.8) k/uL ABG pH (7.35-7.45) ABG pCO2 (35-45) mmHg ABG pO2 (83-108) mmHg ABG Total CO2 (19-24) mmol/L ABG O2 Saturation (94-97) % Sodium (137-145) mmol/L Carbon Dioxide (22-30) mmol/L Glucose (74-99) mg/dL POC Glucose (mg/dL) 181 H (75-99) mg/dL Calcium (8.4-10.2) mg/dL Magnesium (1.6-2.3) mg/dL AST (14-36) U/L Total Protein (6.3-8.2) g/dL Albumin (3.5-5.0) g/dL Crossmatch See Detail 10/11/21 10/11/21 10/11/21 Range/Units 14:15 14:28 15:13 WBC (3.8-10.6) k/uL RBC (3.80-5.40) m/uL Hgb (11.4-16.0) gm/dL Hct (34.0-46.0) % RDW (11.5-15.5) % Neutrophils # (1.3-7.7) k/uL Lymphocytes # (1.0-4.8) k/uL ABG pH 7.26 L (7.35-7.45) ABG pCO2 56 H (35-45) mmHg ABG pO2 279 H (83-108) mmHg ABG Total CO2 27 H (19-24) mmol/L ABG O2 Saturation 100.0 H (94-97) % Sodium 134 L (137-145) mmol/L Carbon Dioxide (22-30) mmol/L Glucose 178 H (74-99) mg/dL POC Glucose (mg/dL) 161 H (75-99) mg/dL Calcium 8.2 L (8.4-10.2) mg/dL Magnesium 1.3 L (1.6-2.3) mg/dL AST (14-36) U/L Total Protein 5.4 L (6.3-8.2) g/dL Albumin 3.0 L (3.5-5.0) g/dL Crossmatch 10/11/21 10/11/21 10/11/21 Range/Units 16:15 17:11 17:54 WBC (3.8-10.6) k/uL RBC (3.80-5.40) m/uL Hgb (11.4-16.0) gm/dL Hct (34.0-46.0) % RDW (11.5-15.5) % Neutrophils # (1.3-7.7) k/uL Lymphocytes # (1.0-4.8) k/uL ABG pH (7.35-7.45) ABG pCO2 (35-45) mmHg ABG pO2 123 H (83-108) mmHg ABG Total CO2 25 H (19-24) mmol/L ABG O2 Saturation 99.4 H (94-97) % Sodium (137-145) mmol/L Carbon Dioxide (22-30) mmol/L Glucose (74-99) mg/dL POC Glucose (mg/dL) 154 H 130 H (75-99) mg/dL Calcium (8.4-10.2) mg/dL Magnesium (1.6-2.3) mg/dL AST (14-36) U/L Total Protein (6.3-8.2) g/dL Albumin (3.5-5.0) g/dL Crossmatch 10/11/21 10/11/21 10/11/21 Range/Units 17:54 18:04 18:59 WBC (3.8-10.6) k/uL RBC 2.98 L (3.80-5.40) m/uL Hgb 7.9 L D (11.4-16.0) gm/dL Hct 25.3 L (34.0-46.0) % RDW 18.7 H (11.5-15.5) % Neutrophils # (1.3-7.7) k/uL Lymphocytes # 0.8 L (1.0-4.8) k/uL ABG pH (7.35-7.45) ABG pCO2 (35-45) mmHg ABG pO2 (83-108) mmHg ABG Total CO2 (19-24) mmol/L ABG O2 Saturation (94-97) % Sodium (137-145) mmol/L Carbon Dioxide (22-30) mmol/L Glucose (74-99) mg/dL POC Glucose (mg/dL) 119 H 121 H (75-99) mg/dL Calcium (8.4-10.2) mg/dL Magnesium (1.6-2.3) mg/dL AST (14-36) U/L Total Protein (6.3-8.2) g/dL Albumin (3.5-5.0) g/dL Crossmatch 10/11/21 10/11/21 10/11/21 Range/Units 20:04 21:09 21:55 WBC (3.8-10.6) k/uL RBC (3.80-5.40) m/uL Hgb (11.4-16.0) gm/dL Hct (34.0-46.0) % RDW (11.5-15.5) % Neutrophils # (1.3-7.7) k/uL Lymphocytes # (1.0-4.8) k/uL ABG pH (7.35-7.45) ABG pCO2 (35-45) mmHg ABG pO2 (83-108) mmHg ABG Total CO2 (19-24) mmol/L ABG O2 Saturation (94-97) % Sodium (137-145) mmol/L Carbon Dioxide (22-30) mmol/L Glucose (74-99) mg/dL POC Glucose (mg/dL) 126 H 138 H 139 H (75-99) mg/dL Calcium (8.4-10.2) mg/dL Magnesium (1.6-2.3) mg/dL AST (14-36) U/L Total Protein (6.3-8.2) g/dL Albumin (3.5-5.0) g/dL Crossmatch 10/11/21 10/12/21 10/12/21 Range/Units 22:58 00:12 01:04 WBC (3.8-10.6) k/uL RBC (3.80-5.40) m/uL Hgb (11.4-16.0) gm/dL Hct (34.0-46.0) % RDW (11.5-15.5) % Neutrophils # (1.3-7.7) k/uL Lymphocytes # (1.0-4.8) k/uL ABG pH (7.35-7.45) ABG pCO2 (35-45) mmHg ABG pO2 (83-108) mmHg ABG Total CO2 (19-24) mmol/L ABG O2 Saturation (94-97) % Sodium (137-145) mmol/L Carbon Dioxide (22-30) mmol/L Glucose (74-99) mg/dL POC Glucose (mg/dL) 137 H 133 H 131 H (75-99) mg/dL Calcium (8.4-10.2) mg/dL Magnesium (1.6-2.3) mg/dL AST (14-36) U/L Total Protein (6.3-8.2) g/dL Albumin (3.5-5.0) g/dL Crossmatch 10/12/21 10/12/21 10/12/21 Range/Units 02:10 03:03 04:00 WBC (3.8-10.6) k/uL RBC 3.07 L (3.80-5.40) m/uL Hgb 8.2 L (11.4-16.0) gm/dL Hct 25.3 L (34.0-46.0) % RDW 18.1 H (11.5-15.5) % Neutrophils # (1.3-7.7) k/uL Lymphocytes # (1.0-4.8) k/uL ABG pH (7.35-7.45) ABG pCO2 (35-45) mmHg ABG pO2 (83-108) mmHg ABG Total CO2 (19-24) mmol/L ABG O2 Saturation (94-97) % Sodium (137-145) mmol/L Carbon Dioxide (22-30) mmol/L Glucose (74-99) mg/dL POC Glucose (mg/dL) 130 H 125 H (75-99) mg/dL Calcium (8.4-10.2) mg/dL Magnesium (1.6-2.3) mg/dL AST (14-36) U/L Total Protein (6.3-8.2) g/dL Albumin (3.5-5.0) g/dL Crossmatch 10/12/21 10/12/21 10/12/21 Range/Units 04:00 04:00 05:16 WBC (3.8-10.6) k/uL RBC (3.80-5.40) m/uL Hgb (11.4-16.0) gm/dL Hct (34.0-46.0) % RDW (11.5-15.5) % Neutrophils # (1.3-7.7) k/uL Lymphocytes # (1.0-4.8) k/uL ABG pH (7.35-7.45) ABG pCO2 (35-45) mmHg ABG pO2 (83-108) mmHg ABG Total CO2 (19-24) mmol/L ABG O2 Saturation (94-97) % Sodium 134 L (137-145) mmol/L Carbon Dioxide 21 L (22-30) mmol/L Glucose 115 H (74-99) mg/dL POC Glucose (mg/dL) 123 H 139 H (75-99) mg/dL Calcium 8.3 L (8.4-10.2) mg/dL Magnesium 1.4 L (1.6-2.3) mg/dL AST 53 H (14-36) U/L Total Protein 5.3 L (6.3-8.2) g/dL Albumin 3.1 L (3.5-5.0) g/dL Crossmatch 10/12/21 10/12/21 10/12/21 Range/Units 06:09 06:56 08:56 WBC (3.8-10.6) k/uL RBC (3.80-5.40) m/uL Hgb (11.4-16.0) gm/dL Hct (34.0-46.0) % RDW (11.5-15.5) % Neutrophils # (1.3-7.7) k/uL Lymphocytes # (1.0-4.8) k/uL ABG pH (7.35-7.45) ABG pCO2 (35-45) mmHg ABG pO2 (83-108) mmHg ABG Total CO2 (19-24) mmol/L ABG O2 Saturation (94-97) % Sodium (137-145) mmol/L Carbon Dioxide (22-30) mmol/L Glucose (74-99) mg/dL POC Glucose (mg/dL) 171 H 166 H 153 H (75-99) mg/dL Calcium (8.4-10.2) mg/dL Magnesium (1.6-2.3) mg/dL AST (14-36) U/L Total Protein (6.3-8.2) g/dL Albumin (3.5-5.0) g/dL Crossmatch 10/12/21 10/12/21 10/12/21 Range/Units 10:10 11:13 12:18 WBC (3.8-10.6) k/uL RBC (3.80-5.40) m/uL Hgb (11.4-16.0) gm/dL Hct (34.0-46.0) % RDW (11.5-15.5) % Neutrophils # (1.3-7.7) k/uL Lymphocytes # (1.0-4.8) k/uL ABG pH (7.35-7.45) ABG pCO2 (35-45) mmHg ABG pO2 (83-108) mmHg ABG Total CO2 (19-24) mmol/L ABG O2 Saturation (94-97) % Sodium (137-145) mmol/L Carbon Dioxide (22-30) mmol/L Glucose (74-99) mg/dL POC Glucose (mg/dL) 138 H 161 H 191 H (75-99) mg/dL Calcium (8.4-10.2) mg/dL Magnesium (1.6-2.3) mg/dL AST (14-36) U/L Total Protein (6.3-8.2) g/dL Albumin (3.5-5.0) g/dL Crossmatch 10/12/21 Range/Units 14:06 WBC (3.8-10.6) k/uL RBC (3.80-5.40) m/uL Hgb (11.4-16.0) gm/dL Hct (34.0-46.0) % RDW (11.5-15.5) % Neutrophils # (1.3-7.7) k/uL Lymphocytes # (1.0-4.8) k/uL ABG pH (7.35-7.45) ABG pCO2 (35-45) mmHg ABG pO2 (83-108) mmHg ABG Total CO2 (19-24) mmol/L ABG O2 Saturation (94-97) % Sodium (137-145) mmol/L Carbon Dioxide (22-30) mmol/L Glucose (74-99) mg/dL POC Glucose (mg/dL) 267 H (75-99) mg/dL Calcium (8.4-10.2) mg/dL Magnesium (1.6-2.3) mg/dL AST (14-36) U/L Total Protein (6.3-8.2) g/dL Albumin (3.5-5.0) g/dL Crossmatch Assessment and Plan Plan: Acute non-ST elevation myocardial infarction Severe coronary artery disease with triple-vessel coronary artery disease. Cardiothoracic surgery were consulted and patient underwent coronary artery bypass graft surgery 3 Shortness of breath, could be related to acute myocardial infarction, however no evidence of pulmonary congestion on chest x-ray, and no elevation in BNP, possibility of acute asthma exacerbation. Pulmonary services are following Toxicology screen positive for methamphetamine and marijuana use Underlying history of hypertension Underlying history of hyperlipidemia Underlying history of diabetes mellitus type 2 with check hemoglobin A1c Plans for coronary artery bypass graft surgery on 10/11/2021 Patient maintained on heparin drip Cardiology, pulmonary and cardiothoracic surgery are following Preoperative workup in progress per cardiothoracic surgery
[2021-10-12 20:03] LABS: Glucose,Whole Blood 149 mg/dL (75-99)
[2021-10-12] MEDS: SENNOSIDES-DOCUSATE SODIUM 1 EACH TAB PO SCH (21:19)
[2021-10-12 21:28] LABS: Glucose,Whole Blood 101 mg/dL (75-99)
[2021-10-12 23:05] LABS: Glucose,Whole Blood 152 mg/dL (75-99)
[2021-10-13 00:13] LABS: Glucose,Whole Blood 153 mg/dL (75-99)
[2021-10-13 02:14] LABS: Glucose,Whole Blood 111 mg/dL (75-99)
[2021-10-13 04:16] LABS: Glucose,Whole Blood 138 mg/dL (75-99)
[2021-10-13] MEDS: HYDROcodone/APAP 5-325MG 1 EACH TAB PO PRN (05:16)
[2021-10-13 05:35] LABS: Anisocytosis Slight; Basophils % (A) 0 %; Eosinophils # (A) 0.4 k/uL (0-0.7); Eosinophils % (A) 4 %; HCT 25.8 % (34.0-46.0); HGB 8.4 gm/dL (11.4-16.0); Hypochromasia Slight; Lymphocytes # (A) 1.9 k/uL (1.0-4.8); Lymphocytes % (A) 18 %; MCH 27.2 pg (25.0-35.0); MCHC 32.5 g/dL (31.0-37.0); MCV 83.7 fL (80.0-100.0); Mean Platelet Volume 8.4; Monocytes # (A) 0.4 k/uL (0-1.0); Monocytes % (A) 4 %; Neutrophils # (A) 7.6 k/uL (1.3-7.7); Neutrophils % (A) 73 %; Platelet Count 273 k/uL (150-450); RBC 3.08 m/uL (3.80-5.40); RDW 18.2 % (11.5-15.5); WBC 10.4 k/uL (3.8-10.6)
[2021-10-13 06:12] LABS: ALT 17 U/L (4-34); AST 62 U/L (14-36); African American GFR (CKD) >90 (>60 ml/min/1.73 sqM); Albumin 2.8 g/dL (3.5-5.0); Alkaline Phosphatase 72 U/L (38-126); Anion Gap 7 mmol/L; Blood Urea Nitrogen 12 mg/dL (7-17); Calcium 8.3 mg/dL (8.4-10.2); Carbon Dioxide 22 mmol/L (22-30); Chloride 105 mmol/L (98-107); Glucose 128 mg/dL (74-99); Magnesium 1.9 mg/dL (1.6-2.3); Non-African American GFR(CKD) 88 (>60 ml/min/1.73 sqM); Potassium 4.3 mmol/L (3.5-5.1); Sodium 134 mmol/L (137-145); Total Bilirubin 0.4 mg/dL (0.2-1.3); Total Protein 5.3 g/dL (6.3-8.2)
[2021-10-13 06:14] LABS: Ionized Calcium 4.9 mg/dL (4.5-5.3)
[2021-10-13 06:17] LABS: Glucose,Whole Blood 178 mg/dL (75-99)
[2021-10-13] MEDS: VANCOMYCIN 1,500 MG in SODIUM CHLORIDE 0.9% 250 ML IVPB SCH (06:23)
[2021-10-13] MEDS: PANTOPRAZOLE 40 MG TABLET PO SCH (06:23)
[2021-10-13] MEDS: KETOROLAC 30 MG/ML 1 ML VIAL IVP SCH ×4 (06:23→23:19)
--- NOTE | 2021-10-13 07:24 | XR ---
EXAMINATION TYPE: XR chest 1V portable DATE OF EXAM: 10/13/2021 COMPARISON: 10/12/2021 HISTORY: Postop TECHNIQUE: Single frontal view of the chest is obtained. FINDINGS: There is a proximally 5% left pneumothorax with subcutaneous emphysema and chest tube. Pos tsurgical changes. Bilateral consolidation and small effusion. Heart enlarged. [place]-Simona catheter is been removed. IMPRESSION: 1. Postsurgical change with bilateral infiltrate and pleural effusion. There is a proximally 5% left apical pneumothorax.
[2021-10-13 08:19] LABS: Glucose,Whole Blood 237 mg/dL (75-99)
[2021-10-13] MEDS: IPRATROPIUM-ALBUTEROL 3 ML NEB INHALATION SCH ×4 (09:01→21:10)
--- NOTE | 2021-10-13 09:17 | P.PN ---
Subjective Progress Note Date: 10/13/21 On today's evaluation of 10/13/2021, the patient is doing well. She is awake and alert and she is sitting up on a recliner. She is currently on oxygen at at 2 L per minute nasal cannula. Morning chest x-ray was noted. The mediastinal chest tube was ultimately removed and the patient continues to have a left pleural chest tube. No evidence of any pneumothorax. Small effusion on the right is noted. The patient is using incentive spirometer. Hemodynamically stable. [place]-Simona catheter is minimal. She continues to have her arterial line in place. White cell count is at 10.4 with a hemoglobin of 8.4, sugar is at 237, sodium is at 134. The patient remains on aspirin and Plavix and the patie nt was started on metoprolol 50 mg by mouth twice a day. Cardiac rhythm is sinus. No other significant events overnight. She moving all 4 extremities. She is neurologically intact. Insulin is running at 7 units an hour. His Objective - Vital Signs Vital signs: Vital Signs Temp 99.5 F 10/13/21 04:00 Pulse 104 H 10/13/21 06:00 Resp 23 10/13/21 06:00 BP 131/66 10/13/21 06:00 Pulse Ox 100 10/13/21 06:00 Intake & Output 10/12/21 10/13/21 10/13/21 18:59 06:59 18:59 Intake Total 1938.018 734.609 9.241 Output Total 1267 756 Balance 671.018 -21.391 9.241 Weight 96 kg Intake: IV 886.5 220 CO/CI 20 Diltiazem 125 mg In 15 Sodium Chloride 0.9% 100 ml @ 5 MG/HR 5 mls/hr IV .Q24H [facility] Rx#:[id number] Lactated Ringers 1,000 ml 300 220 @ 20 mls/hr IV .Q24H [facility] Rx#:[id number] Magnesium Sulfate-D5w Pmx 300 1 gm In Dextrose/Water 1 100ml.bag @ 100 mls/hr IVPB Q1H [facility] Rx#: [id number] Nitroglycerin-D5w Pmx 50 1.5 mg In Dextrose/Water 1 250ml.bag @ 5 MCG/MIN 1.5 mls/hr IV .Q24H [facility] Rx#: [id number] Vancomycin 1,500 mg In 250 Sodium Chloride 0.9% 250 ml @ 125 mls/hr IVPB Q12H [facility] Rx#:[id number] Intake, IV Titration 51.518 34.609 9.241 Amount Insulin Regular 100 unit 51.518 34.609 9.241 In Sodium Chloride 0.9% 100 ml @ Per Protocol IV .Q0M [facility] Rx#:[id number] Oral 1000 480 Output: Chest Tube Drainage 242 176 Chest Tube Left Pleural/ 242 176 Mediastinal Drainage 30 Wrist 30 Urine 995 580 Other: Voiding Method Indwelling Catheter Indwelling Catheter ABP, PAP, CO, CI - Last Documented Arterial Blood Pressure 115/65 Pulmonary Artery Pressure 30/13 Cardiac Output 7.9 Cardiac Index 4.1 - Exam GENERAL EXAM: Alert, comfortable in no apparent distress. HEAD: Normocephalic. EYES: Normal reaction of pupils, equal size. NOSE: Clear with pink turbinates. THROAT: No erythema or exudates. NECK: No masses, no JVD. CHEST: Heart hugger in place. No chest wall deformity. Mediastinal, pleural chest tubes in place LUNGS: Equal air entry with faint crackles in the posteriior bases. CVS: S1 and S2 normal with no audible murmur, regular rhythm. ABDOMEN: No hepatosplenomegaly, normal bowel sounds, no guarding or rigidity. SPINE: No scoliosis or deformity SKIN: No rashes CENTRAL NERVOUS SYSTEM: No focal deficits, tone is normal in all 4 extremities. EXTREMITIES: Left radial JOSE drain in place. There is no peripheral edema. No clubbing, no cyanosis. Peripheral pulses are intact. - Labs CBC & Chem 7: 10/13/21 04:12 10/13/21 04:12 Labs: Abnormal Lab Results - Last 24 Hours (Table) 10/12/21 10/12/21 10/12/21 Range/Units 10:10 11:13 12:18 RBC (3.80-5.40) m/uL Hgb (11.4-16.0) gm/dL Hct (34.0-46.0) % RDW (11.5-15.5) % Sodium (137-145) mmol/L Glucose (74-99) mg/dL POC Glucose (mg/dL) 138 H 161 H 191 H (75-99) mg/dL Calcium (8.4-10.2) mg/dL AST (14-36) U/L Total Protein (6.3-8.2) g/dL Albumin (3.5-5.0) g/dL 10/12/21 10/12/21 10/12/21 Range/Units 14:06 15:04 16:56 RBC (3.80-5.40) m/uL Hgb (11.4-16.0) gm/dL Hct (34.0-46.0) % RDW (11.5-15.5) % Sodium (137-145) mmol/L Glucose (74-99) mg/dL POC Glucose (mg/dL) 267 H 239 H 177 H (75-99) mg/dL Calcium (8.4-10.2) mg/dL AST (14-36) U/L Total Protein (6.3-8.2) g/dL Albumin (3.5-5.0) g/dL 10/12/21 10/12/21 10/12/21 Range/Units 18:03 18:52 20:01 RBC (3.80-5.40) m/uL Hgb (11.4-16.0) gm/dL Hct (34.0-46.0) % RDW (11.5-15.5) % Sodium (137-145) mmol/L Glucose (74-99) mg/dL POC Glucose (mg/dL) 206 H 188 H 149 H (75-99) mg/dL Calcium (8.4-10.2) mg/dL AST (14-36) U/L Total Protein (6.3-8.2) g/dL Albumin (3.5-5.0) g/dL 10/12/21 10/12/21 10/13/21 Range/Units 21:23 23:01 00:09 RBC (3.80-5.40) m/uL Hgb (11.4-16.0) gm/dL Hct (34.0-46.0) % RDW (11.5-15.5) % Sodium (137-145) mmol/L Glucose (74-99) mg/dL POC Glucose (mg/dL) 101 H 152 H 153 H (75-99) mg/dL Calcium (8.4-10.2) mg/dL AST (14-36) U/L Total Protein (6.3-8.2) g/dL Albumin (3.5-5.0) g/dL 10/13/21 10/13/21 10/13/21 Range/Units 02:13 04:12 04:12 RBC 3.08 L (3.80-5.40) m/uL Hgb 8.4 L (11.4-16.0) gm/dL Hct 25.8 L (34.0-46.0) % RDW 18.2 H (11.5-15.5) % Sodium 134 L (137-145) mmol/L Glucose 128 H (74-99) mg/dL POC Glucose (mg/dL) 111 H (75-99) mg/dL Calcium 8.3 L (8.4-10.2) mg/dL AST 62 H (14-36) U/L Total Protein 5.3 L (6.3-8.2) g/dL Albumin 2.8 L (3.5-5.0) g/dL 10/13/21 10/13/21 10/13/21 Range/Units 04:14 06:10 08:17 RBC (3.80-5.40) m/uL Hgb (11.4-16.0) gm/dL Hct (34.0-46.0) % RDW (11.5-15.5) % Sodium (137-145) mmol/L Glucose (74-99) mg/dL POC Glucose (mg/dL) 138 H 178 H 237 H (75-99) mg/dL Calcium (8.4-10.2) mg/dL AST (14-36) U/L Total Protein (6.3-8.2) g/dL Albumin (3.5-5.0) g/dL Assessment and Plan Plan: 1 coronary artery bypass surgery. The patient underwent three-vessel bypass off pump and the patient is currently postop day #2. The patient is known to have coronary artery disease along with unstable angina and acute non-STEMI.. Hemodynamically stable on no pressors. Mediastinal chest tube was removed and the patient has a left pleural chest tube in place. Using incentive spirometer. Chest x-ray shows small effusion the right lung base. No pneumothorax. 2 post thoracotomy, extubated without any major difficulties and currently on 3 L of oxygen by nasal cannula 3 History of hypertension. 4 History of hyperlipidemia. 5 History of diabetes mellitus. Patient is currently on a insulin drip at 7 units an hour. 6 History of prior methamphetamine use. 7 Occasional marijuana use. 8 10 years of previous cigarette use. 9 Obesity. 10 Fibromyalgia. 11Osteoarthritis. 12 History of sleep apnea syndrome. Plan Encourage use of incentive spirometer Monitor the output from the chest tube no evidence of any air leak at this point, we'll likely have her left-sided chest tube removed Discontinue the insulin drip. Give the patient 20 units of Levemir right now along with 5 units with meals and is sinus care coverage and monitor the blood sugar. Neurologically intact Repeat chest x-ray and labs in the morning May transfer out of the intensive care units
--- NOTE | 2021-10-13 09:22 | P.PN ---
Subjective Progress Note Date: 10/13/21 Principal diagnosis: Multivessel coronary artery disease with distal left main disease, non-ST elevated myocardial infarction this admission. Past medical history significant for hypertension, hyperlipidemia diabetes mellitus type 2 with a preoperative hemoglobin A1c of 7.0%, asthma, COPD, obesity, fibromyalgia, osteoarthritis, history of sleep apnea syndrome, remote history of tobacco abuse quit smoking 20 years ago, obstructive sleep apnea, occasional marijuana use and methamphetamine use. POD #2 off pump coronary artery bypass grafting 3 vessels with sequential of le ft internal mammary artery to the left anterior descending coronary artery and intermediate coronary artery and a T graft left radial artery graft to the first obtuse marginal coronary artery. Ligation of the left atrial appendage with a 35 mm Atricure clip. Endovascular radial artery harvest. Endovascular harvest of the right greater saphenous vein. Postoperative acute blood loss anemia, expected due to hemodilution. The patient was seen in follow-up today 10/13/2021 at her bedside in the intensive care unit. Currently she is sitting up to the bedside chair, is awake, alert, oriented 3 and is in no acute apparent distress. She denies any complaints of shortness of breath and reports that her pain is well controlled on her current pain medication regimen. Oxygen saturation are 95% on 2 L nasal cannula and she is achieving 1000 mL on her incentive spirometry with encouragement. She remained hemodynamically stable and is currently on no inotropic or pressor support. Insulin drip is infusing at 4.5 units per hour managed by primary care service. Bedside telemetry showing sinus tachycardia heart rate 102 BPM. T-max temperature in the last 24 hours was 99.5F. Right IJ cordis remains in place with continuous CVP monitoring, current CVP pressure 9 mmHg. The patient reports that she has been up ambulating in the intensive care unit hallway this morning with standby assistance from nursing. Left pleural chest tube remains in place with Low continuous wall suction -20 cm H2O. No air leak is present. Draining thin serosanguineous drainage with 160 mL output in the last 8 hours and 350 mL output in the last 24 hours. Objective - Vital Signs Vital signs: Vital Signs Temp 99.5 F 10/13/21 04:00 Pulse 104 H 10/13/21 06:00 Resp 23 10/13/21 06:00 BP 131/66 10/13/21 06:00 Pulse Ox 100 10/13/21 06:00 Intake & Output 10/12/21 10/13/21 10/13/21 18:59 06:59 18:59 Intake Total 1938.018 734.609 Output Total 1267 756 Balance 671.018 -21.391 Weight 96 kg Intake: IV 886.5 220 CO/CI 20 Diltiazem 125 mg In 15 Sodium Chloride 0.9% 100 ml @ 5 MG/HR 5 mls/hr IV .Q24H [facility] Rx#:[id number] Lactated Ringers 1,000 ml 300 220 @ 20 mls/hr IV .Q24H [facility] Rx#:[id number] Magnesium Sulfate-D5w Pmx 300 1 gm In Dextrose/Water 1 100ml.bag @ 100 mls/hr IVPB Q1H [facility] Rx#: [id number] Nitroglycerin-D5w Pmx 50 1.5 mg In Dextrose/Water 1 250ml.bag @ 5 MCG/MIN 1.5 mls/hr IV .Q24H [facility] Rx#: [id number] Vancomycin 1,500 mg In 250 Sodium Chloride 0.9% 250 ml @ 125 mls/hr IVPB Q12H [facility] Rx#:[id number] Intake, IV Titration 51.518 34.609 Amount Insulin Regular 100 unit 51.518 34.609 In Sodium Chloride 0.9% 100 ml @ Per Protocol IV .Q0M [facility] Rx#:[id number] Oral 1000 480 Output: Chest Tube Drainage 242 176 Chest Tube Left Pleural/ 242 176 Mediastinal Drainage 30 Wrist 30 Urine 995 580 Other: Voiding Method Indwelling Catheter Indwelling Catheter ABP, PAP, CO, CI - Last Documented Arterial Blood Pressure 115/65 Pulmonary Artery Pressure 30/13 Cardiac Output 7.9 Cardiac Index 4.1 - Exam CONSTITUTIONAL: Sitting up to the bedside chair in the intensive care unit, appears comfortable, cooperative, no apparent acute distress. HEENT: Neck is supple, no JVD, no lymphadenopathy. Right IJ Cordis in place and functioning. RESPIRATORY: Lungs sounds essentially clear throughout, diminished to h er bilateral bases. Respirations are symmetrical and nonlabored. Currently on 2 L nasal cannula with oxygen saturations 95%. Able to achieve 1000 mL on her incentive spirometry. Strong cough. CARDIOVASCULAR: Regular rhythm and tachycardic rate. S1 and S2 present, negative for S3, gallop or murmur. Sternum is stable. Palpable peripheral pulses bilaterally, trace edema to her bilateral lower extremities. No calf pain or tenderness noted. Heart hugger in place with patient demonstrating appropriate use. Knee-high EMMIE hose and sequential compression devices in place to his bilateral lower extremities. GASTROINTESTINAL: Abdomen soft, nontender, nondistended. Active bowel sounds present 4 quadrants. Tolerating diet. Passing flatus. No guarding or rigidity. GENITOURINARY: Paulino present draining clear, yellow urine. Urine output 270 mL in the last 8 hours. INTEGUMENTARY: Skin is warm and dry with no evidence of clubbing or cyanosis. Midline sternal incision clean dry and well approximated, covered with dry intact dressing. Right lower extremity EVH sites well approximated without redness or drainage. Left arm radial artery harvest sites clean, dry and approximated. No drainage or redness is present. NEUROLOGIC: Cranial nerves II through XII intact. No focal deficits. MUSKULOSKELETAL: Able to move all extremities, strength equal bilaterally. PSYCHIATRIC: Alert and oriented to person place and time, appropriate affect, intact judgment and insight. INVASIVE LINES AND TUBES: Left pleural chest tube present and connected to low continuous wall suction -20 cm H2O, no air leak present. Left pleural chest tube with 270 mL of thin serosanguineous drainage overnight, 350 mL output in the last 24 hours. Right internal jugular Cordis, right radial arterial line present. Current CVP 9 mmHg. - Allied health notes Allied health notes reviewed: nursing - Labs CBC & Chem 7: 10/13/21 04:12 10/13/21 04:12 Labs: Abnormal Lab Results - Last 24 Hours (Table) 10/12/21 10/12/21 10/12/21 Range/Units 08:56 10:10 11:13 RBC (3.80-5.40) m/uL Hgb (11.4-16.0) gm/dL Hct (34.0-46.0) % RDW (11.5-15.5) % Sodium (137-145) mmol/L Glucose (74-99) mg/dL POC Glucose (mg/dL) 153 H 138 H 161 H (75-99) mg/dL Calcium (8.4-10.2) mg/dL AST (14-36) U/L Total Protein (6.3-8.2) g/dL Albumin (3.5-5.0) g/dL 10/12/21 10/12/21 10/12/21 Range/Units 12:18 14:06 15:04 RBC (3.80-5.40) m/uL Hgb (11.4-16.0) gm/dL Hct (34.0-46.0) % RDW (11.5-15.5) % Sodium (137-145) mmol/L Glucose (74-99) mg/dL POC Glucose (mg/dL) 191 H 267 H 239 H (75-99) mg/dL Calcium (8.4-10.2) mg/dL AST (14-36) U/L Total Protein (6.3-8.2) g/dL Albumin (3.5-5.0) g/dL 10/12/21 10/12/21 10/12/21 Range/Units 16:56 18:03 18:52 RBC (3.80-5.40) m/uL Hgb (11.4-16.0) gm/dL Hct (34.0-46.0) % RDW (11.5-15.5) % Sodium (137-145) mmol/L Glucose (74-99) mg/dL POC Glucose (mg/dL) 177 H 206 H 188 H (75-99) mg/dL Calcium (8.4-10.2) mg/dL AST (14-36) U/L Total Protein (6.3-8.2) g/dL Albumin (3.5-5.0) g/dL 10/12/21 10/12/21 10/12/21 Range/Units 20:01 21:23 23:01 RBC (3.80-5.40) m/uL Hgb (11.4-16.0) gm/dL Hct (34.0-46.0) % RDW (11.5-15.5) % Sodium (137-145) mmol/L Glucose (74-99) mg/dL POC Glucose (mg/dL) 149 H 101 H 152 H (75-99) mg/dL Calcium (8.4-10.2) mg/dL AST (14-36) U/L Total Protein (6.3-8.2) g/dL Albumin (3.5-5.0) g/dL 10/13/21 10/13/21 10/13/21 Range/Units 00:09 02:13 04:12 RBC 3.08 L (3.80-5.40) m/uL Hgb 8.4 L (11.4-16.0) gm/dL Hct 25.8 L (34.0-46.0) % RDW 18.2 H (11.5-15.5) % Sodium (137-145) mmol/L Glucose (74-99) mg/dL POC Glucose (mg/dL) 153 H 111 H (75-99) mg/dL Calcium (8.4-10.2) mg/dL AST (14-36) U/L Total Protein (6.3-8.2) g/dL Albumin (3.5-5.0) g/dL 10/13/21 10/13/21 10/13/21 Range/Units 04:12 04:14 06:10 RBC (3.80-5.40) m/uL Hgb (11.4-16.0) gm/dL Hct (34.0-46.0) % RDW (11.5-15.5) % Sodium 134 L (137-145) mmol/L Glucose 128 H (74-99) mg/dL POC Glucose (mg/dL) 138 H 178 H (75-99) mg/dL Calcium 8.3 L (8.4-10.2) mg/dL AST 62 H (14-36) U/L Total Protein 5.3 L (6.3-8.2) g/dL Albumin 2.8 L (3.5-5.0) g/dL - Imaging and Cardiology Chest x-ray: report reviewed, image reviewed Assessment and Plan Assessment: 1. Multivessel coronary artery disease with left main disease 2. Non-ST elevated myocardial infarction this admission 3. Type 2 diabetes mellitus 4. History of hypertension 5. Hyperlipidemia 6. History of asthma 7. History of COPD 8. Remote history of nicotine abuse, quit smoking over 20 years ago 9. Occasional marijuana use 10. Methamphetamine abuse 11. Obesity 12. Fibromyalgia 13. Osteoarthritis 14. Family history of coronary artery disease 15. Postoperative acute blood loss anemia, expected given hemodilution Plan: 1. Continue aspirin, statin, Plavix and beta marcos. We will increase her metoprolol tartrate as tolerated. 2. Continue Lovenox 40 mg subcu daily for DVT prophylaxis. 3. Wean O2 as tolerated. Encourage incentive spirometry use 10 times every hour while awake. Bronchodilators per pulmonology/critical care medicine. 4. Will continue to monitor daily labs and chest x-rays. Electrolyte replacement per protocol. 5. GI/DVT prophylaxis. 6. Insulin management per primary care service. Patient is a diabetic, preoperative hemoglobin A1c 7.0%. She will need tight blood sugar control to promote healing and prevent infection. 7. Pain control per current medication regimen. 8. Increase activity, ambulate as tolerated. PT/OT/cardiac rehab following. 9. Remove Paulino catheter continue record strict accurate intake and output. Daily weights 10. Remove right IJ Cordis. 11. We will remove her left pleural chest tube today. 12. Continue Cardizem 30 mg by mouth every 6 hours for radial artery spasm prophylaxis. Please do not discontinue and unless okayed by cardiothoracic surgery service. 13. Transfer to third floor cardiac stepdown unit. 14. More recommendations to follow based on patient's clinical course. Time with Patient: Greater than 30
[2021-10-13] MEDS: MAGNESIUM SULFATE-D5W PMX 1 GM in DEXTROSE/WATER 1 100ML.BAG IVPB SCH ×2 (09:23→10:55)
[2021-10-13] MEDS: ATORVASTATIN 40 MG TAB PO SCH (09:24)
[2021-10-13] MEDS: DILTIAZEM ORAL 30 MG TAB PO SCH ×4 (09:24→23:19)
[2021-10-13] MEDS: CLOPIDOGREL 75 MG TAB PO SCH (09:24)
[2021-10-13] MEDS: METOPROLOL TARTRATE 50 MG TAB PO SCH ×2 (09:24→20:24)
[2021-10-13] MEDS: ENOXAPARIN 40 MG/0.4 ML SYRINGE SQ SCH (09:24)
[2021-10-13] MEDS: ASPIRIN 325 MG TAB PO SCH (09:24)
[2021-10-13] MEDS: INSULIN DETEMIR (LEVEMIR) 100 UNIT/ML SYR SQ SCH (09:56)
--- NOTE | 2021-10-13 10:24 | P.VSCSTY ---
Greater Saphenous Vein Mapping This is bilateral lower extremity greater saphenous vein mapping. Date of service: 12/08/2020 Vein quality and ultrasound appearance: We see no intraluminal thrombus or obvious wall changes. Vein size groin right : 8.8 x 6.7 groin left: 7.6 x 7.1 High thigh right: 10.5 x 5 high thigh left: 13.3 x 7.2 Mid thigh right: 5.7 x 3.6 mid thigh left: 6.3 x 5.0 Above-knee right: 4.9 x 3.2 above- knee left: 7.7 x 4.6 Below knee right: 5.0 x 2.5 below-knee left: 6.9 x 4.3 Mid calf right: 2.3 x 2.0 mid calf left: 2.7 x 2.1 Ankle right: 3.7 x 2.4 ankle left: 3.8 x 2.2 Impression: Usable bilateral greater saphenous vein. There is a dilated area in the upper high thigh..
--- NOTE | 2021-10-13 10:25 | P.ARTDOP ---
Arterial Doppler LOWER EXTREMITY ARTERIAL DOPPLER: DATE OF SERVICE: 10/07/2021 Reason for study: Preop CABG. Doppler waveforms: Multiphasic bilaterally throughout. Pulse volume recording: []. Pressure gradients: None. Ankle-brachial indices: Greater than 1 bilaterally. Toe brachial indices: [] on the right, [] on the left Impression: Normal study.
--- NOTE | 2021-10-13 10:34 | P.PN ---
Subjective Progress Note Date: 10/13/21 Mark Moore, he is a 71-year-old female who presented to [facility] emergency room with a chief complaint of worsening shortness of breath and chest discomfort. She was evaluated in the emergency room vital examination on presentation revealed a temperature of 97.7 pulse 127 respiration 26 blood pressure 148/104 pulse ox 100% on room air Laboratory data revealed a white blood count of 16.1 hemoglobin 14.8 platelet count 509 sodium 134 potassium 4.1 chloride 96 CO2 16 BUN 16 creatinine 0.9 glucose level was 182 troponin level was elevated at 0.146 plasma lactic acid was elevated at 2.1 urine toxicology screen was positive for methamphetamine, benzodiazepine, and marijuana. Testing in the emergency room revealed CT angiogram of the chest revealed no evidence of acute pulmonary embolism, EKG revealed left bundle branch block Patient was admitted to medical floor for further evaluation and treatment, she was started on IV heparin cardiology and pulmonary consultation were requested. Past medical history is significant for history of hypertension, history of hyperlipidemia, history of anxiety disorder, history of restless leg syndrome, history of diabetes mellitus type 2, history of asthma, history of obstructive sleep apnea, and previous history of smoking. On 10/08/2021 patient underwent cardiac catheterization revealing multivessel disease. Cardiothoracic surgery is following plans for coronary artery bypass graft surgery on Monday. Patient remains on heparin drip. At this time patient denies chest pain or shortness breath. Patient denies nausea vomiting or diarrhea. Pulmonary and cardiology services also following. Preoperative workup in progress per cardiothoracic surgery On 10/09/2021atient was seen and examined on the medical floor, she is alert and oriented x 3 in no distress, she denies any complaints there is no fever or chills no headache or dizziness no chest pain no shortness of breath no palpitation no cough no nausea or vomiting no abdominal pain no diarrhea no blood in the stools no burning with urination no frequency or urgency and no hematuria, there is no weakness or numbness in any of the extremities no change in vision speech or gait. Plan is for coronary artery bypass graft surgery on Monday. Patient understands condition and plans well. On 10/10/2021 patient is alert and oriented 3 resting comfortably in bed. Pat ient denies chest pain or shortness breath. Patient denies nausea vomiting or diarrhea. Patient denies any urinary burning or frequency. Patient remains on IV heparin. Plans for coronary artery bypass graft surgery tomorrow 10/11/[address] Brewer On 10/11/2021, patient was not seen she was in operating room all day. On 10/12/2021 patient was seen and examined in the ICU she is alert and oriented in no apparent distress there is no fever or chills no headache or dizziness no chest pain no shortness of breath no cough no nausea or vomiting no abdominal pain no diarrhea and no urinary symptoms vital exam reveals a temperature of 98.9 pulse 106 respiration 18 blood pressure 106/49 pulse ox 94% on 2 L nasal cannula white blood count is 7.4 hemoglobin 8.2 platelet count 227 BUN 10 crea tinine 0.62 On 10/13/2021 patient's alert and oriented 3. Patient remains in the intensive care unit. Did discuss case with cardiothoracic nurse practitioner plans to remove chest tube today and possibly transfer out of intensive care unit. Blood pressure 115/58, temp 98.4. Heart rate 95. Pulse ox 96% on 2 L. At this time patient denies chest pain or shortness breath. Patient denies nausea vomiting or diarrhea. Patient denies any urinary burning or frequency Objective - Vital Signs Vital signs: Vital Signs Temp 98.4 F 10/13/21 09:08 Pulse 98 10/13/21 09:08 Resp 25 H 10/13/21 09:08 BP 93/65 10/13/21 09:08 Pulse Ox 96 10/13/21 09:08 Intake & Output 10/12/21 10/13/21 10/13/21 18:59 06:59 18:59 Intake Total 1938.018 734.609 409.241 Output Total 1267 756 45 Balance 671.018 -21.391 364.241 Weight 96 kg Intake: IV 886.5 220 60 CO/CI 20 Diltiazem 125 mg In 15 Sodium Chloride 0.9% 100 ml @ 5 MG/HR 5 mls/hr IV .Q24H [facility] Rx#:[id number] Lactated Ringers 1,000 ml 300 220 60 @ 20 mls/hr IV .Q24H [facility] Rx#:[id number] Magnesium Sulfate-D5w Pmx 300 1 gm In Dextrose/Water 1 100ml.bag @ 100 mls/hr IVPB Q1H [facility] Rx#: [id number] Nitroglycerin-D5w Pmx 50 1.5 mg In Dextrose/Water 1 250ml.bag @ 5 MCG/MIN 1.5 mls/hr IV .Q24H [facility] Rx#: [id number] Vancomycin 1,500 mg In 250 Sodium Chloride 0.9% 250 ml @ 125 mls/hr IVPB Q12H [facility] Rx#:[id number] Intake, IV Titration 51.518 34.609 109.241 Amount Insulin Regular 100 unit 51.518 34.609 9.241 In Sodium Chloride 0.9% 100 ml @ Per Protocol IV .Q0M [facility] Rx#:[id number] Magnesium Sulfate-D5w Pmx 100 1 gm In Dextrose/Water 1 100ml.bag @ 100 mls/hr IVPB Q1H [facility] Rx#: [id number] Oral 1000 480 240 Output: Chest Tube Drainage 242 176 Chest Tube Left Pleural/ 242 176 Mediastinal Drainage 30 Wrist 30 Urine 995 580 45 Other: Voiding Method Indwelling Catheter Indwelling Catheter ABP, PAP, CO, CI - Last Documented Arterial Blood Pressure 115/58 Pulmonary Artery Pressure 30/13 Cardiac Output 7.9 Cardiac Index 4.1 - Exam In general patient is alert and oriented x 3 in no distress HEENT head normocephalic and atraumatic Neck is supple no JVD no goiter no lymphadenopathy no carotid bruit Chest examination is clear to auscultation no crackles no wheezing Cardiac exam reveals regular heart sounds S1 and S2 no gallops no murmurs Abdomen is soft nontender no organomegaly with normal bowel sounds Extremity exam reveals no edema no cyanosis or clubbing Neurological examination reveals no gross focal deficits - Labs CBC & Chem 7: 10/13/21 04:12 10/13/21 04:12 Labs: Abnormal Lab Results - Last 24 Hours (Table) 10/12/21 10/12/21 10/12/21 Range/Units 11:13 12:18 14:06 RBC (3.80-5.40) m/uL Hgb (11.4-16.0) gm/dL Hct (34.0-46.0) % RDW (11.5-15.5) % Sodium (137-145) mmol/L Glucose (74-99) mg/dL POC Glucose (mg/dL) 161 H 191 H 267 H (75-99) mg/dL Calcium (8.4-10.2) mg/dL AST (14-36) U/L Total Protein (6.3-8.2) g/dL Albumin (3.5-5.0) g/dL 10/12/21 10/12/21 10/12/21 Range/Units 15:04 16:56 18:03 RBC (3.80-5.40) m/uL Hgb (11.4-16.0) gm/dL Hct (34.0-46.0) % RDW (11.5-15.5) % Sodium (137-145) mmol/L Glucose (74-99) mg/dL POC Glucose (mg/dL) 239 H 177 H 206 H (75-99) mg/dL Calcium (8.4-10.2) mg/dL AST (14-36) U/L Total Protein (6.3-8.2) g/dL Albumin (3.5-5.0) g/dL 10/12/21 10/12/21 10/12/21 Range/Units 18:52 20:01 21:23 RBC (3.80-5.40) m/uL Hgb (11.4-16.0) gm/dL Hct (34.0-46.0) % RDW (11.5-15.5) % Sodium (137-145) mmol/L Glucose (74-99) mg/dL POC Glucose (mg/dL) 188 H 149 H 101 H (75-99) mg/dL Calcium (8.4-10.2) mg/dL AST (14-36) U/L Total Protein (6.3-8.2) g/dL Albumin (3.5-5.0) g/dL 10/12/21 10/13/21 10/13/21 Range/Units 23:01 00:09 02:13 RBC (3.80-5.40) m/uL Hgb (11.4-16.0) gm/dL Hct (34.0-46.0) % RDW (11.5-15.5) % Sodium (137-145) mmol/L Glucose (74-99) mg/dL POC Glucose (mg/dL) 152 H 153 H 111 H (75-99) mg/dL Calcium (8.4-10.2) mg/dL AST (14-36) U/L Total Protein (6.3-8.2) g/dL Albumin (3.5-5.0) g/dL 10/13/21 10/13/21 10/13/21 Range/Units 04:12 04:12 04:14 RBC 3.08 L (3.80-5.40) m/uL Hgb 8.4 L (11.4-16.0) gm/dL Hct 25.8 L (34.0-46.0) % RDW 18.2 H (11.5-15.5) % Sodium 134 L (137-145) mmol/L Glucose 128 H (74-99) mg/dL POC Glucose (mg/dL) 138 H (75-99) mg/dL Calcium 8.3 L (8.4-10.2) mg/dL AST 62 H (14-36) U/L Total Protein 5.3 L (6.3-8.2) g/dL Albumin 2.8 L (3.5-5.0) g/dL 10/13/21 10/13/21 Range/Units 06:10 08:17 RBC (3.80-5.40) m/uL Hgb (11.4-16.0) gm/dL Hct (34.0-46.0) % RDW (11.5-15.5) % Sodium (137-145) mmol/L Glucose (74-99) mg/dL POC Glucose (mg/dL) 178 H 237 H (75-99) mg/dL Calcium (8.4-10.2) mg/dL AST (14-36) U/L Total Protein (6.3-8.2) g/dL Albumin (3.5-5.0) g/dL Assessment and Plan Plan: Acute non-ST elevation myocardial infarction Severe coronary artery disease with triple-vessel coronary artery disease. Ca rdiothoracic surgery were consulted and patient underwent coronary artery bypass graft surgery 3 Shortness of breath, could be related to acute myocardial infarction, however no evidence of pulmonary congestion on chest x-ray, and no elevation in BNP, possibility of acute asthma exacerbation. Pulmonary services are following Toxicology screen positive for methamphetamine and marijuana use Underlying history of hypertension Underlying history of hyperlipidemia Underlying history of diabetes mellitus type 2 patient underwent coronary artery bypass graft surgery on 10/11/2021 Remains in the intensive care unit Plan for chest tube removal today 10/13/2021 per cardiothoracic
[2021-10-13] MEDS ORDERED: ALBUMIN HUMAN 5% 250 ML in EMPTY BAG 1 BAG IVPB ONE (10:46)
--- NOTE | 2021-10-13 10:57 | P.PN ---
Subjective Progress Note Date: 10/13/21 Patient is a 71-year-old female admitted to the hospital with acute coronary artery syndrome underwent a cardiac catheterization that revealed [place] 3 vessel coronary artery disease and postop day 2 of coronary artery bypass surgery. Patient is doing well sitting in the chair upon examination. Patient remains on 2 L nasal cannula. She remains in sinus rhythm. Patient has been converted from IV Cardizem to by mouth Cardizem 30mg QID. Blood pressure is well-controlled 103/65, heart rate on exam is 101, she is 96% on 2 L nasal cannula and if heart rate continues to elevate, will increase Lopressor to 75 mg twice a day. Patient is currently on aspirin, Plavix, Artisan, Lopressor, Lovenox, Lipitor Objective - Vital Signs Vital signs: Vital Signs Temp 98.4 F 10/13/21 09:08 Pulse 101 H 10/13/21 10:00 Resp 28 H 10/13/21 10:00 BP 103/65 10/13/21 10:00 Pulse Ox 97 10/13/21 10:00 Intake & Output 10/12/21 10/13/21 10/13/21 18:59 06:59 18:59 Intake Total 1938.018 734.609 429.241 Output Total 1267 756 75 Balance 671.018 -21.391 354.241 Weight 96 kg Intake: IV 886.5 220 80 CO/CI 20 Diltiazem 125 mg In 15 Sodium Chloride 0.9% 100 ml @ 5 MG/HR 5 mls/hr IV .Q24H [facility] Rx#:[id number] Lactated Ringers 1,000 ml 300 220 80 @ 20 mls/hr IV .Q24H [facility] Rx#:[id number] Magnesium Sulfate-D5w Pmx 300 1 gm In Dextrose/Water 1 100ml.bag @ 100 mls/hr IVPB Q1H [facility] Rx#: [id number] Nitroglycerin-D5w Pmx 50 1.5 mg In Dextrose/Water 1 250ml.bag @ 5 MCG/MIN 1.5 mls/hr IV .Q24H [facility] Rx#: [id number] Vancomycin 1,500 mg In 250 Sodium Chloride 0.9% 250 ml @ 125 mls/hr IVPB Q12H [facility] Rx#:[id number] Intake, IV Titration 51.518 34.609 109.241 Amount Insulin Regular 100 unit 51.518 34.609 9.241 In Sodium Chloride 0.9% 100 ml @ Per Protocol IV .Q0M [facility] Rx#:[id number] Magnesium Sulfate-D5w Pmx 100 1 gm In Dextrose/Water 1 100ml.bag @ 100 mls/hr IVPB Q1H [facility] Rx#: [id number] Oral 1000 480 240 Output: Chest Tube Drainage 242 176 Chest Tube Left Pleural/ 242 176 Mediastinal Drainage 30 Wrist 30 Urine 995 580 75 Other: Voiding Method Indwelling Catheter Indwelling Catheter ABP, PAP, CO, CI - Last Documented Arterial Blood Pressure 124/66 Pulmonary Artery Pressure 30/13 Cardiac Output 7.9 Cardiac Index 4.1 - Exam PHYSICAL EXAM: VITAL SIGNS: Reviewed. GENERAL: Well-developed in no acute distress. HEENT: Head is normocephalic. Pupils are equal, round. Sclerae anicteric. Mucous membranes of the mouth are moist. NECK: Supple. No JVD or thyromegaly RESPIRATORY: Respirations even and unlabored. Lungs diminished to auscultation bilaterally. CARDIO: Regular rate and rhythm. S1 and S2 heard. No murmur or gallops. EXTREMITIES: Normal range of motion. No clubbing or cyanosis. Peripheral pulses intact. Negative for bilateral lower extremity edema NEURO: Orientated to person, time, mood is appropriate - Labs CBC & Chem 7: 10/13/21 04:12 10/13/21 04:12 Labs: Abnormal Lab Results - Last 24 Hours (Table) 10/12/21 10/12/21 10/12/21 Range/Units 11:13 12:18 14:06 RBC (3.80-5.40) m/uL Hgb (11.4-16.0) gm/dL Hct (34.0-46.0) % RDW (11.5-15.5) % Sodium (137-145) mmol/L Glucose (74-99) mg/dL POC Glucose (mg/dL) 161 H 191 H 267 H (75-99) mg/dL Calcium (8.4-10.2) mg/dL AST (14-36) U/L Total Protein (6.3-8.2) g/dL Albumin (3.5-5.0) g/dL 10/12/21 10/12/21 10/12/21 Range/Units 15:04 16:56 18:03 RBC (3.80-5.40) m/uL Hgb (11.4-16.0) gm/dL Hct (34.0-46.0) % RDW (11.5-15.5) % Sodium (137-145) mmol/L Glucose (74-99) mg/dL POC Glucose (mg/dL) 239 H 177 H 206 H (75-99) mg/dL Calcium (8.4-10.2) mg/dL AST (14-36) U/L Total Protein (6.3-8.2) g/dL Albumin (3.5-5.0) g/dL 10/12/21 10/12/21 10/12/21 Range/Units 18:52 20:01 21:23 RBC (3.80-5.40) m/uL Hgb (11.4-16.0) gm/dL Hct (34.0-46.0) % RDW (11.5-15.5) % Sodium (137-145) mmol/L Glucose (74-99) mg/dL POC Glucose (mg/dL) 188 H 149 H 101 H (75-99) mg/dL Calcium (8.4-10.2) mg/dL AST (14-36) U/L Total Protein (6.3-8.2) g/dL Albumin (3.5-5.0) g/dL 10/12/21 10/13/21 10/13/21 Range/Units 23:01 00:09 02:13 RBC (3.80-5.40) m/uL Hgb (11.4-16.0) gm/dL Hct (34.0-46.0) % RDW (11.5-15.5) % Sodium (137-145) mmol/L Glucose (74-99) mg/dL POC Glucose (mg/dL) 152 H 153 H 111 H (75-99) mg/dL Calcium (8.4-10.2) mg/dL AST (14-36) U/L Total Protein (6.3-8.2) g/dL Albumin (3.5-5.0) g/dL 10/13/21 10/13/21 10/13/21 Range/Units 04:12 04:12 04:14 RBC 3.08 L (3.80-5.40) m/uL Hgb 8.4 L (11.4-16.0) gm/dL Hct 25.8 L (34.0-46.0) % RDW 18.2 H (11.5-15.5) % Sodium 134 L (137-145) mmol/L Glucose 128 H (74-99) mg/dL POC Glucose (mg/dL) 138 H (75-99) mg/dL Calcium 8.3 L (8.4-10.2) mg/dL AST 62 H (14-36) U/L Total Protein 5.3 L (6.3-8.2) g/dL Albumin 2.8 L (3.5-5.0) g/dL 10/13/21 10/13/21 Range/Units 06:10 08:17 RBC (3.80-5.40) m/uL Hgb (11.4-16.0) gm/dL Hct (34.0-46.0) % RDW (11.5-15.5) % Sodium (137-145) mmol/L Glucose (74-99) mg/dL POC Glucose (mg/dL) 178 H 237 H (75-99) mg/dL Calcium (8.4-10.2) mg/dL AST (14-36) U/L Total Protein (6.3-8.2) g/dL Albumin (3.5-5.0) g/dL Assessment and Plan Assessment: [place] 3 vessel coronary artery disease status post bypass surgery with sequential SIMPSON to the LAD, and ramus intermedius with radial artery graft to the OM Plan: Continue with all current cardiac medications Continue to monitor heart rate, if heart rate continues to elevate we'll increase metoprolol to 75 mg twice a day Continue to increase activity as tolerated Patient may be downgraded to select care
[2021-10-13 11:00] VITALS: BMI 38.7
[2021-10-13 11:37] LABS: Glucose,Whole Blood 218 mg/dL (75-99)
[2021-10-13] MEDS: INSULIN ASPART (NovoLOG) 100 UNIT/ML VIAL SQ SCH ×3 (11:48→20:24)
[2021-10-13] MEDS: traMADol 50 MG TAB PO PRN (13:39)
[2021-10-13] MEDS ORDERED: FUROSEMIDE 10 MG/ML 2 ML VIAL IV STA (14:53)
[2021-10-13 16:54] LABS: Glucose,Whole Blood 158 mg/dL (75-99)
--- NOTE | 2021-10-13 17:20 | XR ---
EXAMINATION TYPE: XR chest 1V portable DATE OF EXAM: 10/13/2021 COMPARISON: 10/13/2021 HISTORY: Short of breath TECHNIQUE: Single view FINDINGS: There is some mild blunting of the costophrenic angles. There is poor inspiration. There is no obvious heart failure. There are sternal wires. Heart appears slightly enlarged. IMPRESSION: There is some pleural reaction and atelectasis at the lung bases which appears not signif icantly different than exam this morning. There is removal of the left side chest tube compared to la st exam. No pneumothorax.
[2021-10-13 20:20] LABS: Glucose,Whole Blood 204 mg/dL (75-99)
[2021-10-13] MEDS: SENNOSIDES-DOCUSATE SODIUM 1 EACH TAB PO SCH (20:24)
[2021-10-14 06:15] LABS: Glucose,Whole Blood 176 mg/dL (75-99)
[2021-10-14] MEDS: PANTOPRAZOLE 40 MG TABLET PO SCH (06:47)
[2021-10-14] MEDS: KETOROLAC 30 MG/ML 1 ML VIAL IVP SCH ×2 (06:47→12:51)
[2021-10-14] MEDS: INSULIN ASPART (NovoLOG) 100 UNIT/ML VIAL SQ SCH ×4 (06:48→21:50)
[2021-10-14] MEDS: INSULIN DETEMIR (LEVEMIR) 100 UNIT/ML SYR SQ SCH (06:48)
--- NOTE | 2021-10-14 07:30 | P.PN ---
Subjective Progress Note Date: 10/14/21 Mark Moore, he is a 71-year-old female who presented to [facility] emergency room with a chief complaint of worsening shortness of breath and chest discomfort. She was evaluated in the emergency room vital examination on presentation revealed a temperature of 97.7 pulse 127 respiration 26 blood pressure 148/104 pulse ox 100% on room air Laboratory data revealed a white blood count of 16.1 hemoglobin 14.8 platelet count 509 sodium 134 potassium 4.1 chloride 96 CO2 16 BUN 16 creatinine 0.9 glucose level was 182 troponin level was elevated at 0.146 plasma lactic acid was elevated at 2.1 urine toxicology screen was positive for methamphetamine, benzodiazepine, and marijuana. Testing in the emergency room revealed CT angiogram of the chest revealed no evidence of acute pulmonary embolism, EKG revealed left bundle branch block Patient was admitted to medical floor for further evaluation and treatment, she was started on IV heparin cardiology and pulmonary consultation were requested. Past medical history is significant for history of hypertension, history of hyperlipidemia, history of anxiety disorder, history of restless leg syndrome, history of diabetes mellitus type 2, history of asthma, history of obstructive sleep apnea, and previous history of smoking. On 10/08/2021 patient underwent cardiac catheterization revealing multivessel disease. Cardiothoracic surgery is following plans for coronary artery bypass graft surgery on Monday. Patient remains on heparin drip. At this time patient denies chest pain or shortness breath. Patient denies nausea vomiting or diarrhea. Pulmonary and cardiology services also following. Preoperative workup in progress per cardiothoracic surgery On 10/09/2021atient was seen and examined on the medical floor, she is alert and oriented x 3 in no distress, she denies any complaints there is no fever or chills no headache or dizziness no chest pain no shortness of breath no palpitation no cough no nausea or vomiting no abdominal pain no diarrhea no blood in the stools no burning with urination no frequency or urgency and no hematuria, there is no weakness or numbness in any of the extremities no change in vision speech or gait. Plan is for coronary artery bypass graft surgery on Monday. Patient understands condition and plans well. On 10/10/2021 patient is alert and oriented 3 resting comfortably in bed. Pat ient denies chest pain or shortness breath. Patient denies nausea vomiting or diarrhea. Patient denies any urinary burning or frequency. Patient remains on IV heparin. Plans for coronary artery bypass graft surgery tomorrow 10/11/[address] Brewer On 10/11/2021, patient was not seen she was in operating room all day. On 10/12/2021 patient was seen and examined in the ICU she is alert and oriented in no apparent distress there is no fever or chills no headache or dizziness no chest pain no shortness of breath no cough no nausea or vomiting no abdominal pain no diarrhea and no urinary symptoms vital exam reveals a temperature of 98.9 pulse 106 respiration 18 blood pressure 106/49 pulse ox 94% on 2 L nasal cannula white blood count is 7.4 hemoglobin 8.2 platelet count 227 BUN 10 crea tinine 0.62 On 10/13/2021 patient's alert and oriented 3. Patient remains in the intensive care unit. Did discuss case with cardiothoracic nurse practitioner plans to remove chest tube today and possibly transfer out of intensive care unit. Blood pressure 115/58, temp 98.4. Heart rate 95. Pulse ox 96% on 2 L. At this time patient denies chest pain or shortness breath. Patient denies nausea vomiting or diarrhea. Patient denies any urinary burning or frequency. On 10/14/2021 patient was seen and examined on the telemetry floor she is alert and oriented 3 in no apparent distress, she is complaining of shortness of breath when she walked, she is also complaining of some chest wall pain, otherwise she denies any complaints there is no fever or chills no headache or dizziness, no cough, no nausea or vomiting no abdominal pain, no diarrhea no blood in the stools no burning with urination no frequency or urgency and no hematuria. Case was discussed was Dash Lopez, cardiovascular [employer] chest tubes were removed yesterday, no evidence of pneumothorax. Objective - Vital Signs Vital signs: Vital Signs Temp 98.0 F 10/14/21 04:00 Pulse 83 10/14/21 04:00 Resp 22 10/14/21 04:00 BP 121/72 10/14/21 04:00 Pulse Ox 97 10/14/21 04:00 Intake & Output 10/13/21 10/13/21 10/14/21 06:59 18:59 06:59 Intake Total 964.486 6804.241 Output Total 756 1040 350 Balance -21.391 259.241 -350 Weight 96 kg 96 kg 96.6 kg Intake: IV 220 120 Lactated Ringers 1,000 ml 220 120 @ 20 mls/hr IV .Q24H [facility] Rx#:[id number] Intake, IV Titration 34.609 459.241 Amount Albumin Human 5% 250 ml 250 In Empty Bag 1 bag @ 250 mls/hr IVPB ONCE ONE Rx#: [id number] Insulin Regular 100 unit 34.609 9.241 In Sodium Chloride 0.9% 100 ml @ Per Protocol IV .Q0M [facility] Rx#:[id number] Magnesium Sulfate-D5w Pmx 200 1 gm In Dextrose/Water 1 100ml.bag @ 100 mls/hr IVPB Q1H [facility] Rx#: [id number] Oral 480 720 Output: Chest Tube Drainage 176 Chest Tube Left Pleural/ 176 Mediastinal Urine 580 1040 350 Other: Voiding Method Indwelling Catheter Toilet # Bowel Movements 1 ABP, PAP, CO, CI - Last Documented Arterial Blood Pressure 124/66 Pulmonary Artery Pressure 30/13 Cardiac Output 7.9 Cardiac Index 4.1 - Exam In general patient is alert and oriented x 3 in no distress HEENT head normocephalic and atraumatic Neck is supple no JVD no goiter no lymphadenopathy no carotid bruit Chest examination reveals a few scattered crackles bilaterally no wheezing Cardiac exam reveals regular heart sounds S1 and S2 no gallops no murmurs Abdomen is soft nontender no organomegaly with normal bowel sounds Extremity exam reveals no edema no cyanosis or clubbing Neurological examination reveals no gross focal deficits - Labs CBC & Chem 7: 10/13/21 04:12 10/13/21 04:12 Labs: Abnormal Lab Results - Last 24 Hours (Table) 10/13/21 10/13/21 10/13/21 Range/Units 08:17 11:36 16:52 POC Glucose (mg/dL) 237 H 218 H 158 H (75-99) mg/dL 10/13/21 10/14/21 Range/Units 20:19 06:12 POC Glucose (mg/dL) 204 H 176 H (75-99) mg/dL Assessment and Plan Plan: Acute non-ST elevation myocardial infarction Severe coronary artery disease with triple-vessel coronary artery disease. Cardiothoracic surgery were consulted and patient underwent coronary artery bypass graft surgery 3 on 10/11/2021 Shortness of breath, could be related to acute myocardial infarction, however no evidence of pulmonary congestion on chest x-ray, and no elevation in BNP, po ssibility of acute asthma exacerbation. Pulmonary services are following Toxicology screen positive for methamphetamine and marijuana use Underlying history of hypertension Underlying history of hyperlipidemia Underlying history of diabetes mellitus type 2 patient underwent coronary artery bypass graft surgery on 10/11/2021 Patient transferred to telemetry floor Plan for chest tube removal today 10/13/2021 per cardiothoracic Medications and labs were reviewed will follow closely
[2021-10-14 08:20] LABS: Anisocytosis Slight; Basophils % (A) 0 %; Eosinophils # (A) 0.5 k/uL (0-0.7); Eosinophils % (A) 5 %; HCT 26.7 % (34.0-46.0); HGB 8.3 gm/dL (11.4-16.0); Hypochromasia Moderate; Lymphocytes # (A) 1.7 k/uL (1.0-4.8); Lymphocytes % (A) 19 %; MCH 26.6 pg (25.0-35.0); MCHC 31.2 g/dL (31.0-37.0); MCV 85.1 fL (80.0-100.0); Mean Platelet Volume 7.7; Monocytes # (A) 0.4 k/uL (0-1.0); Monocytes % (A) 5 %; Neutrophils # (A) 6.1 k/uL (1.3-7.7); Neutrophils % (A) 69 %; Platelet Count 286 k/uL (150-450); RBC 3.13 m/uL (3.80-5.40); WBC 8.8 k/uL (3.8-10.6)
--- NOTE | 2021-10-14 08:29 | XR ---
EXAMINATION TYPE: XR chest 2V DATE OF EXAM: 10/14/2021 COMPARISON: Chest x-ray 10/13/2021 HISTORY: Postop coronary artery bypass graft TECHNIQUE: Frontal and lateral views of the chest are obtained. FINDINGS: There is patchy basilar density, right hemidiaphragm is partially obscured, minimal left a pical pneumothorax is again seen. Blunting of the posterior costophrenic angles is present. The card iac silhouette size is stable. There are overlying artifacts. Patient is post median sternotomy and left atrial appendage clip placement. The osseous structures are intact. IMPRESSION: Basilar atelectasis, minimal left apical pneumothorax, postop changes and small effusion s. Stable cardiomegaly.
[2021-10-14 08:32] LABS: ALT 13 U/L (4-34); AST 33 U/L (14-36); African American GFR (CKD) >90 (>60 ml/min/1.73 sqM); Alkaline Phosphatase 75 U/L (38-126); Anion Gap 7 mmol/L; Blood Urea Nitrogen 14 mg/dL (7-17); Calcium 8.6 mg/dL (8.4-10.2); Carbon Dioxide 26 mmol/L (22-30); Chloride 101 mmol/L (98-107); Glucose 140 mg/dL (74-99); Magnesium 1.7 mg/dL (1.6-2.3); Non-African American GFR(CKD) >90 (>60 ml/min/1.73 sqM); Potassium 4.3 mmol/L (3.5-5.1); Sodium 134 mmol/L (137-145); Total Bilirubin 0.3 mg/dL (0.2-1.3); Total Protein 5.6 g/dL (6.3-8.2)
[2021-10-14] MEDS ORDERED: FUROSEMIDE 10 MG/ML 4 ML VIAL IV STA (09:00)
[2021-10-14] MEDS ORDERED: METOPROLOL TARTRATE 50 MG TAB PO SCH (09:00)
[2021-10-14] MEDS ORDERED: POTASSIUM CHLORIDE ER 10 MEQ TAB.ER.PRT PO STA (09:00)
[2021-10-14] MEDS: DILTIAZEM ORAL 30 MG TAB PO SCH ×4 (09:25→21:50)
[2021-10-14] MEDS: CLOPIDOGREL 75 MG TAB PO SCH (09:25)
[2021-10-14] MEDS: ATORVASTATIN 40 MG TAB PO SCH (09:25)
[2021-10-14] MEDS: ASPIRIN 325 MG TAB PO SCH (09:26)
[2021-10-14] MEDS: ENOXAPARIN 40 MG/0.4 ML SYRINGE SQ SCH (09:26)
[2021-10-14] MEDS: METOPROLOL TARTRATE 50 MG TAB PO SCH ×2 (09:28→21:50)
[2021-10-14] MEDS: IPRATROPIUM-ALBUTEROL 3 ML NEB INHALATION SCH ×4 (10:02→21:26)
--- NOTE | 2021-10-14 10:02 | US ---
EXAMINATION TYPE: US chest DATE OF EXAM: 10/14/2021 COMPARISON: Chest x-ray 10/14/2021 CLINICAL HISTORY: Pleural effusions. Exam done portable TECHNIQUE: Targeted ultrasound of the posterior lower bilateral hemithoraces EXAM MEASUREMENTS: Right Pleural Effusion pocket size: 8.1 cm Right skin surface to fluid distance: 3.8 cm Lung seen within anterior portion of fluid pocket Left Pleural Effusion pocket size: 1.4 cm Left skin surface to fluid distance: 3.8 cm Right side marked for possible thoracentesis outside the dept. Left side not marked for possible thoracentesis outside the dept. Pulmonologists are able to review the images in the patient?s EMR. IMPRESSIONS: Limited posterior chest ultrasound, bilateral pleural effusions right greater than left
--- NOTE | 2021-10-14 10:06 | P.PN ---
Subjective Progress Note Date: 10/14/21 Principal diagnosis: Multivessel coronary artery disease with distal left main disease, non-ST elevated myocardial infarction this admission. Past medical history significant for hypertension, hyperlipidemia diabetes mellitus type 2 with a preoperative hemoglobin A1c of 7.0%, asthma, COPD, obesity, fibromyalgia, osteoarthritis, history of sleep apnea syndrome, remote history of tobacco abuse quit smoking 20 years ago, obstructive sleep apnea, occasional marijuana use and methamphetamine use. POD #3 off pump coronary artery bypass grafting 3 vessels with sequential of le ft internal mammary artery to the left anterior descending coronary artery and intermediate coronary artery and a T graft left radial artery graft to the first obtuse marginal coronary artery. Ligation of the left atrial appendage with a 35 mm Atricure clip. Endovascular radial artery harvest. Endovascular harvest of the right greater saphenous vein. Postoperative acute blood loss anemia, expected due to hemodilution. The patient was seen in follow-up today 10/14/2021 at her bedside on the cardiac stepdown unit. Currently she is sitting up to the bedside chair, is awake, alert, oriented 3 and is in no acute apparent distress. The patient is complaining of some shortness of breath with activity and some surgical type pain rating her pain 4 out of 10 on the pain scale. Oxygen saturation are 97% on 3 L nasal cannula and she is achieving 8672-2921 mL on her incentive spirometry with encouragement. Remote telemetry is showing normal sinus rhythm heart rate 90 BPM. She has been afebrile the last 24 hours. The patient remains hemodynamically stable and is currently on no inotropic or pressor support. Her left pleural chest tube was removed without incident yesterday 10/13/2021. The patient was given a dose of Lasix 20 mg IV 1 yesterday with a diuresis of 850 mL of urine. Objective - Vital Signs Vital signs: Vital Signs Temp 98.0 F 10/14/21 04:00 Pulse 83 10/14/21 04:00 Resp 22 10/14/21 04:00 BP 121/72 10/14/21 04:00 Pulse Ox 97 10/14/21 04:00 Intake & Output 10/13/21 10/14/21 10/14/21 18:59 06:59 18:59 Intake Total 1299.241 Output Total 1040 350 Balance 259.241 -350 Weight 96 kg 96.6 kg Intake: IV 120 Lactated Ringers 1,000 ml 120 @ 20 mls/hr IV .Q24H [facility] Rx#:[id number] Intake, IV Titration 459.241 Amount Albumin Human 5% 250 ml 250 In Empty Bag 1 bag @ 250 mls/hr IVPB ONCE ONE Rx#: [id number] Insulin Regular 100 unit 9.241 In Sodium Chloride 0.9% 100 ml @ Per Protocol IV .Q0M [facility] Rx#:[id number] Magnesium Sulfate-D5w Pmx 200 1 gm In Dextrose/Water 1 100ml.bag @ 100 mls/hr IVPB Q1H [facility] Rx#: [id number] Oral 720 Output: Urine 1040 350 Other: Voiding Method Toilet # Bowel Movements 1 ABP, PAP, CO, CI - Last Documented Arterial Blood Pressure 124/66 Pulmonary Artery Pressure 30/13 Cardiac Output 7.9 Cardiac Index 4.1 - Exam CONSTITUTIONAL: Sitting up to the bedside chair on the cardiac stepdown unit, appears comfortable, cooperative, no apparent acute distress. HEENT: Neck is supple, no JVD, no lymphadenopathy. RESPIRATORY: Lungs sounds essentially clear throughout, diminished to her bi lateral bases with few scattered crackles. Respirations are symmetrical and nonlabored. Currently on 3 L nasal cannula with oxygen saturations 97%. Able to achieve 6910-1910 mL on her incentive spirometry. Strong cough. CARDIOVASCULAR: Regular rhythm and rate. S1 and S2 present, negative for S3, gallop or murmur. Sternum is stable. Palpable peripheral pulses bilaterally, trace edema to her bilateral lower extremities. No calf pain or tenderness noted. Heart hugger in place with patient demonstrating appropriate use. Knee- high EMMIE hose and sequential compression devices in place to his bilateral lower extremities. GASTROINTESTINAL: Abdomen soft, nontender, nondistended. Active bowel sounds present 4 quadrants. Tolerating diet. Passing flatus. No guarding or rigidity. GENITOURINARY: Continues to void. Urine output 350 mL in the last 8 hours. INTEGUMENTARY: Skin is warm and dry with no evidence of clubbing or cyanosis. Midline sternal incision clean dry and well approximated, covered with dry intact dressing. Right lower extremity EVH sites well approximated without redness or drainage. Left arm radial artery harvest sites clean, dry and approximated. No drainage or redness is present. NEUROLOGIC: Cranial nerves II through XII intact. No focal deficits. MUSKULOSKELETAL: Able to move all extremities, strength equal bilaterally. PSYCHIATRIC: Alert and oriented to person place and time, appropriate affect, intact judgment and insight. - Allied health notes Allied health notes reviewed: nursing - Labs CBC & Chem 7: 10/14/21 06:53 10/14/21 06:53 Labs: Abnormal Lab Results - Last 24 Hours (Table) 10/13/21 10/13/21 10/13/21 Range/Units 08:17 11:36 16:52 POC Glucose (mg/dL) 237 H 218 H 158 H (75-99) mg/dL 10/13/21 10/14/21 Range/Units 20:19 06:12 POC Glucose (mg/dL) 204 H 176 H (75-99) mg/dL - Imaging and Cardiology Chest x-ray: report reviewed, image reviewed Assessment and Plan Assessment: 1. Multivessel coronary artery disease with left main disease 2. Non-ST elevated myocardial infarction this admission 3. Type 2 diabetes mellitus 4. History of hypertension 5. Hyperlipidemia 6. History of asthma 7. History of COPD 8. Remote history of nicotine abuse, quit smoking over 20 years ago 9. Occasional marijuana use 10. Methamphetamine abuse 11. Obesity 12. Fibromyalgia 13. Osteoarthritis 14. Family history of coronary artery disease 15. Postoperative acute blood loss anemia, expected given hemodilution Plan: 1. Continue aspirin, statin, Plavix and beta marcos. We will increase her metoprolol tartrate 100 mg by mouth twice a day. 2. Continue Lovenox 40 mg subcu daily for DVT prophylaxis. 3. Wean O2 as tolerated. Encourage incentive spirometry use 10 times every hour while awake. Bronchodilators per pulmonology/critical care medicine. 4. Will continue to monitor daily labs and chest x-rays. Electrolyte replacement per protocol. 5. GI/DVT prophylaxis. 6. Insulin management per primary care service. Patient is a diabetic, preoperative hemoglobin A1c 7.0%. She will need tight blood sugar control to promote healing and to prevent infection. 7. Pain control per current medication regimen. 8. Increase activity, ambulate as tolerated. PT/OT/cardiac rehab following. 9. Continue record strict accurate intake and output. Daily weights 10. Lasix 40 mg IV 1 now and potassium chloride 10 mEq by mouth 1 now, then we will start Lasix 40 mg IV every 12 hours 3 doses and potassium chloride 10 mEq by mouth daily 1 dose. 11. We will switch Cardizem to Cardizem CD 120 mg by mouth daily for radial artery spasm prophylaxis. Please do not discontinue unless okayed by cardiothoracic surgery service. 12. Discharge planning is in place, anticipate discharge home with home health care in the next 24-48 hours. 13. She will need her first postoperative shower today. 14. We will obtain an ultrasound of her chest to assess pleural effusion and a limited 2-D echocardiogram to assess LV function. 15. More recommendations to follow based on patient's clinical course. Time with Patient: Greater than 30
[2021-10-14] MEDS: MAGNESIUM SULFATE-D5W PMX 1 GM in DEXTROSE/WATER 1 100ML.BAG IVPB SCH ×2 (10:50→12:53)
[2021-10-14 11:39] LABS: Glucose,Whole Blood 170 mg/dL (75-99)
[2021-10-14] MEDS: LOSARTAN 25 MG TAB PO SCH (12:52)
--- NOTE | 2021-10-14 13:50 | P.PN ---
Subjective This is a pleasant 71-year-old female past medical history significant for hypertension, type 2 diabetes, hyperlipidemia, obstructive sleep apnea, Asthma, marijuana use, methamphetamine use and former nicotine dependence. 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 We have been asked to see in consultation for chest pain and elevated troponin. 2-D echocardiogram was completed which demonstrated an overall left ventricular systolic function to be mild to moderately impaired with an ejection fraction between 40 and 45%, moderate mitral annular amaya cification, mild mitral valve regurgitation, and mild tricuspid valve regurgitation. The patient also underwent a cardiac catheterization with Dr. Lantigua which demonstrated a 40-50% distal left main stenosis, an ostial 99% stenosis to her left anterior descending coronary artery, a 30-40% mid LAD stenosis, a 99% ostial circumflex coronary artery stenosis a 70-80% stenosis to her posterior descending artery, and her mid and distal segment of her right coronary artery which shown to have diffuse intimal disease of 20-30% without any evidence of high-grade stenosis. Due to the findings on her heart catheterization, CT surgery consult was recommended. On 10/11/21 patient underwent coronary artery bypass grafting 3 vessels with sequential of SIMPSON to the LAD and intermediate coronary artery and a T graft left radial artery graft to the first obtuse marginal coronary artery. 10/14/21 Patient seen at bedside on 3S stepdown unit, no acute distress. She is alert and oriented x 3. Complaining of dyspnea on exertion. Using incentive spirometry well. She is maintaining sinus mechanism. She is hemodynamically stable. Chest tubed removed yesterday. She is maintained on aspirin 325 mg daily, atorvastatin 40 mg daily, Cardizem 30 mg 4 times a day, IV Lasix 40 mg given this morning, losartan 25 mg daily, metoprolol titrate 50 mg twice a day. GENERAL: Well-appearing, well-nourished and in no acute distress. NECK: Supple without JVD or thyromegaly. LUNGS: Breath sounds clear to auscultation bilaterally. Respiration equal and unlabored. No wheezes, rales or rhonchi. HEART: Regular rate and rhythm without murmurs, rubs or gallops. S1 and S2 heard. EXTREMITIES: Normal range of motion, no edema. No clubbing or cyanosis. Peripheral pulses intact. ASSESSMENT NSTEMI Multivessel Coronary artery disease Status post 3vessel CABG on 10/11/21 History of hypertension Hyperlipidemia History of asthma History of COPD Occasional marijuana use Methamphetamine abuse Obesity PLAN Continue aspirin, statin, Plavix and beta marcos. IV lasix given this morning, monitor renal function, electrolytes, I/Os Increase activity as tolerated Post operative management per CT Surgery Encourage incentive spirometry use 10 times every hour while awake. On discharge, patient to follow up with Dr. Lantigua Nurse Practitioner note has been reviewed, I agree with a documented findings and plan of care. Patient was seen and examined. Objective - Vital Signs Vital signs: Vital Signs Temp 96.9 F L 10/14/21 08:00 Pulse 85 10/14/21 12:00 Resp 18 10/14/21 12:00 BP 109/74 10/14/21 12:00 Pulse Ox 96 10/14/21 12:00 Intake & Output 10/13/21 10/14/21 10/14/21 18:59 06:59 18:59 Intake Total 1299.241 240 Output Total 1040 350 750 Balance 259.241 -350 -510 Weight 96 kg 96.6 kg Intake: IV 120 Lactated Ringers 1,000 ml 120 @ 20 mls/hr IV .Q24H [facility] Rx#:[id number] Intake, IV Titration 459.241 Amount Albumin Human 5% 250 ml 250 In Empty Bag 1 bag @ 250 mls/hr IVPB ONCE ONE Rx#: [id number] Insulin Regular 100 unit 9.241 In Sodium Chloride 0.9% 100 ml @ Per Protocol IV .Q0M [facility] Rx#:[id number] Magnesium Sulfate-D5w Pmx 200 1 gm In Dextrose/Water 1 100ml.bag @ 100 mls/hr IVPB Q1H [facility] Rx#: [id number] Oral 720 240 Output: Urine 1040 350 750 Other: Voiding Method Toilet # Bowel Movements 1 ABP, PAP, CO, CI - Last Documented Arterial Blood Pressure 124/66 Pulmonary Artery Pressure 30/13 Cardiac Output 7.9 Cardiac Index 4.1 - Labs CBC & Chem 7: 10/14/21 06:53 10/14/21 06:53 Labs: Abnormal Lab Results - Last 24 Hours (Table) 10/13/21 10/13/21 10/14/21 Range/Units 16:52 20:19 06:12 RBC (3.80-5.40) m/uL Hgb (11.4-16.0) gm/dL Hct (34.0-46.0) % RDW (11.5-15.5) % Sodium (137-145) mmol/L Glucose (74-99) mg/dL POC Glucose (mg/dL) 158 H 204 H 176 H (75-99) mg/dL Total Protein (6.3-8.2) g/dL Albumin (3.5-5.0) g/dL 10/14/21 10/14/21 10/14/21 Range/Units 06:53 06:53 11:38 RBC 3.13 L (3.80-5.40) m/uL Hgb 8.3 L (11.4-16.0) gm/dL Hct 26.7 L (34.0-46.0) % RDW 18.0 H (11.5-15.5) % Sodium 134 L (137-145) mmol/L Glucose 140 H (74-99) mg/dL POC Glucose (mg/dL) 170 H (75-99) mg/dL Total Protein 5.6 L (6.3-8.2) g/dL Albumin 3.0 L (3.5-5.0) g/dL
--- NOTE | 2021-10-14 13:50 | P.PN ---
Subjective Progress Note Date: 10/14/21 I saw the patient immediately after the patient arrived to the intensive care unit following the cardiac bypass surgery. This was a off pump coronary artery bypass surgery 3 with SIMPSON to LAD. The patient for surgery, was brought into the intensive care unit intubated on a mechanical ventilator and the patient was on propofol. Initial ventilator settings included a assist-control mode at the rate of 12 with tidal volume of 475 with an FiO2 of 100% and a PEEP of 10. Chest x-ray was noted. Blood gases was noted. During the course of this postsurgical phase, the patient was weaned off gradually and FiO2 was dropped down and subsequently the PEEP was reduced down to 10. Probable was gradually w eaned off and at that point weaning parameters were checked and the parameters were adequate. Following that the patient was given a spelled his breathing trial with a pressure support of 5 and PEEP of 5. Her blood gases following the reading Harris showed a pH of 7.4 with a pCO2 of 39 and pO2 of 123. At that point the patient was extubated and currently she is on 3 L of oxygen by nasal cannula. Chest x-ray postop showed adequate positioning of the orotracheal tube. No evidence of any pneumothorax. The patient has chest tubes and the patient has a mediastinal chest tube and the left pleural chest tube and output from the chest tubes have been essentially minimal. The patient did have some limited amount of subcutaneous emphysema on the left as noted on the chest x- ray. At this point in time, the output from the chest tubes are in order of 200 mL total 11 from the operating room. The patient has no evidence of any air leak. Hemodynamically, the patient is producing adequate amount of urine output. Cardiac rhythm is sinus. The cardiac output and index are 7.2 and 3.7 respectively and the pulmonary artery pressure is 38/22 cm of water. Her pain is under good control. She was offered extremities without any limitation. Note that this patient was extubated with a six-hour window after arriving to the intensive care unit. The patient is currently on nitroglycerin drip at 5 g per minute and Cardizem drip at 5 mg an hour. Insulin drip is at 0.5 units an hour and the patient is also on lactated Ringer at the rate of 50 mL an hour. Urine output is adequate for now. The patient is seen today 10/12/2021 in follow-up in the intensive care unit. She is currently resting quite comfortably in bed. Awake and alert in no acute distress. She successfully extubated within 6 hours of surgery. She is currently on 2 L/m per nasal cannula. She's been hemodynamically stable. Chest x-ray reveals persistent cardiomegaly with central vascular congestion and small tiny bilateral effusions along with left greater than right She is working well with the incentive spirometer pulling approxi-750 mL. Mediastinal and pleural chest tubes remain in place. [place]-Simona catheter has been removed. Last cardiac output and index were stable. She is still on insulin drip at 1.5 units per hour. Cardizem drip at 5 mg per hour. Currently in sinus rhythm. Lactated Ringer's at 50 MLS per hour. White count 7.4. Hemoglobin 8.2. Platelets 11/24/2026. Sodium 134. Potassium 4.0. Creatinine 0.62. Magnesium 1.4. Continued on DuoNeb inhalations, antibiotics in the form of vancomycin. The patient is seen today 10/14/2021 in follow-up in the selective care unit. She is currently sitting up in a chair at the bedside. Awake and alert in no acute distress. She is a bit more short of breath today compared to yesterday. Currently maintaining O2 saturations in the upper 90s on 3 L/m per nasal cannula. She's been afebrile. Hemodynamically stable. Chest x-ray continues to show basilar atelectasis, minimal left apical pneumothorax. Stable cardiomegaly. Ultrasound of the chest reveals an 8.1 cm pocket on the right. 1.4 cm pocket on the left. White count 8.8. Hemoglobin 8.3. Platelets 286. Sodium 134. Potassium 4.3. Creatinine 0.63. Glucose 140. She is continued on DuoNeb inhalations. She is on Lasix 40 IV every 12 hours Objective - Vital Signs Vital signs: Vital Signs Temp 96.9 F L 10/14/21 08:00 Pulse 85 10/14/21 12:00 Resp 18 10/14/21 12:00 BP 109/74 10/14/21 12:00 Pulse Ox 96 10/14/21 12:00 Intake & Output 10/13/21 10/14/21 10/14/21 18:59 06:59 18:59 Intake Total 1299.241 240 Output Total 1040 350 750 Balance 259.241 -350 -510 Weight 96 kg 96.6 kg Intake: IV 120 Lactated Ringers 1,000 ml 120 @ 20 mls/hr IV .Q24H [facility] Rx#:[id number] Intake, IV Titration 459.241 Amount Albumin Human 5% 250 ml 250 In Empty Bag 1 bag @ 250 mls/hr IVPB ONCE ONE Rx#: [id number] Insulin Regular 100 unit 9.241 In Sodium Chloride 0.9% 100 ml @ Per Protocol IV .Q0M [facility] Rx#:[id number] Magnesium Sulfate-D5w Pmx 200 1 gm In Dextrose/Water 1 100ml.bag @ 100 mls/hr IVPB Q1H [facility] Rx#: [id number] Oral 720 240 Output: Urine 1040 350 750 Other: Voiding Method Toilet # Bowel Movements 1 ABP, PAP, CO, CI - Last Documented Arterial Blood Pressure 124/66 Pulmonary Artery Pressure 30/13 Cardiac Output 7.9 Cardiac Index 4.1 - Exam GENERAL EXAM: Alert, very pleasant 71-year-old female patient, on 2 L nasal cannula, fairly comfortable in no apparent distress. HEAD: Normocephalic. EYES: Normal reaction of pupils, equal size. NOSE: Clear with pink turbinates. THROAT: No erythema or exudates. NECK: No masses, no JVD. CHEST: Heart hugger in place. No chest wall deformity. Mediastinal, pleural chest tubes in place LUNGS: Equal air entry with faint crackles in the posteriior bases. CVS: S1 and S2 normal with no audible murmur, regular rhythm. ABDOMEN: No hepatosplenomegaly, normal bowel sounds, no guarding or rigidity. SPINE: No scoliosis or deformity SKIN: No rashes CENTRAL NERVOUS SYSTEM: No focal deficits, tone is normal in all 4 extremities. EXTREMITIES: Left radial JOSE drain in place. There is no peripheral edema. No clubbing, no cyanosis. Peripheral pulses are intact. - Labs CBC & Chem 7: 10/14/21 06:53 10/14/21 06:53 Labs: Abnormal Lab Results - Last 24 Hours (Table) 10/13/21 10/13/21 10/14/21 Range/Units 16:52 20:19 06:12 RBC (3.80-5.40) m/uL Hgb (11.4-16.0) gm/dL Hct (34.0-46.0) % RDW (11.5-15.5) % Sodium (137-145) mmol/L Glucose (74-99) mg/dL POC Glucose (mg/dL) 158 H 204 H 176 H (75-99) mg/dL Total Protein (6.3-8.2) g/dL Albumin (3.5-5.0) g/dL 10/14/21 10/14/21 10/14/21 Range/Units 06:53 06:53 11:38 RBC 3.13 L (3.80-5.40) m/uL Hgb 8.3 L (11.4-16.0) gm/dL Hct 26.7 L (34.0-46.0) % RDW 18.0 H (11.5-15.5) % Sodium 134 L (137-145) mmol/L Glucose 140 H (74-99) mg/dL POC Glucose (mg/dL) 170 H (75-99) mg/dL Total Protein 5.6 L (6.3-8.2) g/dL Albumin 3.0 L (3.5-5.0) g/dL Assessment and Plan Assessment: 1 Coronary artery disease status post coronary artery bypass grafting 2 Hypertension 3 Hyperlipidemia 4 Diabetes mellitus 5 History of methamphetamine use 6 Occasional marijuana use 7 Previous chronic tobacco dependence 8 Obesity 9 Fibromyalgia 10 Osteoarthritis 11 History of sleep apnea Plan: The patient was seen and evaluated Chest x-ray and ultrasound of the chest reviewed Continue with diuretics No plans for thoracentesis at this time Encouraged increased use of the incentive spirometer and cough and deep breathing exercises Titrate the FiO2 as tolerated We will continue to follow and make further recommendations based on her clinical status I, the cosigning physician, performed a history & physical examination of the patient. Lungs sounds with faint crackles in the posterior bases. Maintaining good O2 saturations in the 90s on 2 L/m per nasal cannula. I discussed the assessment and plan of care with my nurse practitioner, Thi Pacheco. I attest to the above note as dictated by her.
--- NOTE | 2021-10-14 15:00 | ECHOF ---
Referral Reason:assess LV function MEASUREMENTS -------- HEIGHT: 157.5 cm WEIGHT: 96.2 kg BP: IVSd: 1.4 cm (0.6 - 1.1) LVIDd: 5.1 cm (3.9 - 5.3) LVPWd: 1.5 cm (0.6 - 1.1) IVSs: 1.9 cm LVIDs: 4.6 cm LVPWs: 2.0 cm FINDINGS -------- Limited for LV function. The left ventricular size is normal. There is mild concentric left ventricular hypertrophy. Overa ll left ventricular systolic function is moderate-severely impaired with, an EF between 30 - 35 %. There is paradoxical/dysynergic septal motion consistent with post-operative status. There is no pericardial effusion. CONCLUSIONS -------- 1. Limited for LV function. 2. The left ventricular size is normal. 3. Overall left ventricular systolic function is moderate-severely impaired with, an EF between 30 - 35 %. 4. There is paradoxical/dysynergic septal motion consistent with post-operative status. 5. There is no pericardial effusion. FRUIT CUTTER: Tori Beltre RDCS
[2021-10-14] MEDS: FUROSEMIDE 10 MG/ML 4 ML VIAL IV SCH (16:24)
[2021-10-14 16:47] LABS: Glucose,Whole Blood 170 mg/dL (75-99)
[2021-10-14 21:06] LABS: Glucose,Whole Blood 178 mg/dL (75-99)
[2021-10-14] MEDS: SENNOSIDES-DOCUSATE SODIUM 1 EACH TAB PO SCH (21:50)
[2021-10-14] MEDS: traMADol 50 MG TAB PO PRN (21:51)
[2021-10-15] MEDS: FUROSEMIDE 10 MG/ML 4 ML VIAL IV SCH (04:48)
[2021-10-15 06:16] LABS: Glucose,Whole Blood 164 mg/dL (75-99)
[2021-10-15 06:57] LABS: Anisocytosis Slight; Basophils % (A) 0 %; Eosinophils # (A) 0.5 k/uL (0-0.7); Eosinophils % (A) 6 %; HCT 27.8 % (34.0-46.0); Hypochromasia Slight; Lymphocytes # (A) 1.7 k/uL (1.0-4.8); Lymphocytes % (A) 20 %; MCH 26.9 pg (25.0-35.0); MCHC 32.2 g/dL (31.0-37.0); MCV 83.6 fL (80.0-100.0); Monocytes # (A) 0.4 k/uL (0-1.0); Monocytes % (A) 5 %; Neutrophils # (A) 5.7 k/uL (1.3-7.7); Neutrophils % (A) 68 %; Platelet Count 402 k/uL (150-450); RBC 3.33 m/uL (3.80-5.40); RDW 17.8 % (11.5-15.5); WBC 8.5 k/uL (3.8-10.6)
--- NOTE | 2021-10-15 07:00 | XR ---
EXAMINATION TYPE: XR chest 1V portable DATE OF EXAM: 10/15/2021 CLINICAL HISTORY: Difficulty breathing and pleural effusions progress study. Postoperative cardiac s urgery. TECHNIQUE: Single AP portable upright view of the chest is obtained. COMPARISON: Chest x-ray from one day earlier and older studies. FINDINGS: Overlying sternal wires and mediastinal clips along with left atrial appendage clip are all redemonstrated. Persistent bibasilar opacities. No pneumothorax seen bilaterally. Stable cardiomegaly with mild centr al vascular congestion. Osseous structures are intact. IMPRESSION: Stable cardiomegaly with mild central vascular congestion and small to tiny right greater than left bilateral pleural effusions along with bibasilar atelectasis and/or infiltrate all redemon strated. No significant change from one day earlier.
[2021-10-15] MEDS: INSULIN ASPART (NovoLOG) 100 UNIT/ML VIAL SQ SCH ×2 (07:03→12:38)
[2021-10-15] MEDS: INSULIN DETEMIR (LEVEMIR) 100 UNIT/ML SYR SQ SCH (07:03)
[2021-10-15] MEDS: PANTOPRAZOLE 40 MG TABLET PO SCH (07:03)
[2021-10-15 07:14] LABS: Potassium 3.7 mmol/L (3.5-5.1)
[2021-10-15 07:15] LABS: ALT 14 U/L (4-34); AST 25 U/L (14-36); African American GFR (CKD) >90 (>60 ml/min/1.73 sqM); Albumin 3.3 g/dL (3.5-5.0); Alkaline Phosphatase 78 U/L (38-126); Anion Gap 11 mmol/L; Blood Urea Nitrogen 14 mg/dL (7-17); Calcium 8.8 mg/dL (8.4-10.2); Carbon Dioxide 29 mmol/L (22-30); Chloride 96 mmol/L (98-107); Glucose 164 mg/dL (74-99); Magnesium 1.6 mg/dL (1.6-2.3); Non-African American GFR(CKD) 83 (>60 ml/min/1.73 sqM); Sodium 136 mmol/L (137-145); Total Bilirubin 0.4 mg/dL (0.2-1.3); Total Protein 6.1 g/dL (6.3-8.2)
[2021-10-15] MEDS ORDERED: POTASSIUM CHLORIDE ER 20 MEQ TAB.ER PO SCH (08:00)
--- NOTE | 2021-10-15 08:32 | P.PN ---
Subjective Progress Note Date: 10/15/21 Principal diagnosis: Multivessel coronary artery disease with distal left main disease, non-ST elevated myocardial infarction this admission. Past medical history significant for hypertension, hyperlipidemia diabetes mellitus type 2 with a preoperative hemoglobin A1c of 7.0%, asthma, COPD, obesity, fibromyalgia, osteoarthritis, history of sleep apnea syndrome, remote history of tobacco abuse quit smoking 20 years ago, obstructive sleep apnea, occasional marijuana use and methamphetamine use. POD #4 off pump coronary artery bypass grafting 3 vessels with sequential of le ft internal mammary artery to the left anterior descending coronary artery and intermediate coronary artery and a T graft left radial artery graft to the first obtuse marginal coronary artery. Ligation of the left atrial appendage with a 35 mm Atricure clip. Endovascular radial artery harvest. Endovascular harvest of the right greater saphenous vein. Postoperative acute blood loss anemia, expected due to hemodilution. The patient was seen in follow-up today 10/15/2021 at her bedside on the cardiac stepdown unit. Currently she is sitting up to the bedside chair, is awake, alert, oriented 3 and is in no acute apparent distress. The patient ambulated in the cardiac stepdown unit hallway with standby assistance, tolerated well with some shortness of breath with the activity. She denies any complaints of shortness of breath or pain when sitting up to the bedside chair. Oxygen satura tion after the walk was 98% on room air and she was achieving 1500 mL on her incentive spirometry with encouragement. The patient reports that she had a postoperative shower yesterday and tolerated it well. She was started on Lasix 40 mg IV every 12 hours with good diuresis and 1.3 L of urine output in the last 8 hours. Laboratory results this morning show a WBC count 8.5, hemoglobin 9.0, hematocrit 27.8, platelets 402, sodium 136, potassium 3.7, BUN 11, creatinine 0.73, magnesium 1.6 and blood glucose 164. Her chest x-ray report this morning shows stable cardiomegaly with mild central vascular congestion and small to tiny right greater than left bilateral pleural effusions along with bibasilar atelectasis. Remote telemetry is showing normal sinus rhythm heart rate 97 BPM after her walk this morning. Discharge planning and teaching reviewed with the patient. The patient has been afebrile the last 24 hours. A limited 2-D echocardiogram was completed yesterday which showed an overall left ventricular systolic function to be moderate to severely impaired with an ejection fraction between 30 and 35% and no pericardial effusion. Objective - Vital Signs Vital signs: Vital Signs Temp 98.0 F 10/15/21 04:00 Pulse 101 H 10/15/21 04:00 Resp 17 10/15/21 04:00 BP 112/72 10/15/21 04:00 Pulse Ox 95 10/15/21 04:00 Intake & Output 10/14/21 10/15/21 10/15/21 18:59 06:59 18:59 Intake Total 240 240 Output Total 1350 1300 Balance -1110 -1060 Weight 94.6 kg Intake: Oral 240 240 Output: Urine 1350 1300 Other: Voiding Method Toilet # Voids 2 ABP, PAP, CO, CI - Last Documented Arterial Blood Pressure 124/66 Pulmonary Artery Pressure 30/13 Cardiac Output 7.9 Cardiac Index 4.1 - Exam CONSTITUTIONAL: Sitting up to the bedside chair on the cardiac stepdown unit, appears comfortable, cooperative, no apparent acute distress. HEENT: Neck is supple, no JVD, no lymphadenopathy. RESPIRATORY: Lungs sounds essentially clear throughout, diminished to her bilateral bases. Respirations are symmetrical and nonlabored. Currently on room air with oxygen saturations 98%. Able to achieve 1500 mL on her incentive spirometry. Strong cough. CARDIOVASCULAR: Regular rhythm and rate. S1 and S2 present, negative for S3, gallop or murmur. Sternum is stable. Palpable peripheral pulses bilaterally, No calf pain or tenderness noted. Heart hugger in place with patient demons trating appropriate use. Knee-high EMMIE hose and sequential compression devices in place to his bilateral lower extremities. GASTROINTESTINAL: Abdomen soft, nontender, nondistended. Active bowel sounds present 4 quadrants. Tolerating diet. Passing flatus. No guarding or rigidity. GENITOURINARY: Continues to void. Urine output 1300 mL in the last 8 hours. INTEGUMENTARY: Skin is warm and dry with no evidence of clubbing or cyanosis. Midline sternal incision clean dry and well approximated, covered with dry intact dressing. Right lower extremity EVH sites well approximated without redness or drainage. Left arm radial artery harvest sites clean, dry and approximated. No drainage or redness is present. NEUROLOGIC: Cranial nerves II through XII intact. No focal deficits. MUSKULOSKELETAL: Able to move all extremities, strength equal bilaterally. PSYCHIATRIC: Alert and oriented to person place and time, appropriate affect, intact judgment and insight. - Allied health notes Allied health notes reviewed: nursing - Labs CBC & Chem 7: 10/15/21 06:26 10/15/21 06:26 Labs: Abnormal Lab Results - Last 24 Hours (Table) 10/14/21 10/14/21 10/14/21 Range/Units 06:53 06:53 11:38 RBC 3.13 L (3.80-5.40) m/uL Hgb 8.3 L (11.4-16.0) gm/dL Hct 26.7 L (34.0-46.0) % RDW 18.0 H (11.5-15.5) % Sodium 134 L (137-145) mmol/L Chloride (98-107) mmol/L Glucose 140 H (74-99) mg/dL POC Glucose (mg/dL) 170 H (75-99) mg/dL Total Protein 5.6 L (6.3-8.2) g/dL Albumin 3.0 L (3.5-5.0) g/dL 10/14/21 10/14/21 10/15/21 Range/Units 16:46 20:29 05:38 RBC (3.80-5.40) m/uL Hgb (11.4-16.0) gm/dL Hct (34.0-46.0) % RDW (11.5-15.5) % Sodium (137-145) mmol/L Chloride (98-107) mmol/L Glucose (74-99) mg/dL POC Glucose (mg/dL) 170 H 178 H 164 H (75-99) mg/dL Total Protein (6.3-8.2) g/dL Albumin (3.5-5.0) g/dL 10/15/21 10/15/21 Range/Units 06:26 06:26 RBC 3.33 L (3.80-5.40) m/uL Hgb 9.0 L (11.4-16.0) gm/dL Hct 27.8 L (34.0-46.0) % RDW 17.8 H (11.5-15.5) % Sodium 136 L (137-145) mmol/L Chloride 96 L (98-107) mmol/L Glucose 164 H (74-99) mg/dL POC Glucose (mg/dL) (75-99) mg/dL Total Protein 6.1 L (6.3-8.2) g/dL Albumin 3.3 L (3.5-5.0) g/dL - Imaging and Cardiology Chest x-ray: report reviewed, image reviewed Assessment and Plan Assessment: 1. Multivessel coronary artery disease with left main disease 2. Non-ST elevated myocardial infarction this admission 3. Type 2 diabetes mellitus 4. History of hypertension 5. Hyperlipidemia 6. History of asthma 7. History of COPD 8. Remote history of nicotine abuse, quit smoking over 20 years ago 9. Occasional marijuana use 10. Methamphetamine abuse 11. Obesity 12. Fibromyalgia 13. Osteoarthritis 14. Family history of coronary artery disease 15. Postoperative acute blood loss anemia, expected given hemodilution Plan: 1. Continue aspirin, statin, Plavix and beta marcos. We will increase beta marcos as tolerated. 2. Replace potassium and magnesium per protocol. 3. Encourage incentive spirometry use 10 times every hour while awake. Bronchodilators per pulmonology/critical care medicine. 4. Will continue to monitor daily labs and chest x-rays. Electrolyte replacement per protocol. 5. GI/DVT prophylaxis. 6. Insulin management per primary care service. Patient is a diabetic, preoperative hemoglobin A1c 7.0%. She will need tight blood sugar control to promote healing, sternal union and to prevent infection. 7. Pain control per current medication regimen. 8. Increase activity, ambulate as tolerated. PT/OT/cardiac rehab following. 9. Continue record strict accurate intake and output. Daily weights 10. Continue Lasix 40 mg IV every 12 hours as ordered. 11. Continue Cardizem CD 120 mg by mouth daily for radial artery spasm prophylaxis. Please do not discontinue unless okayed by cardiothoracic surgery service. 12. Discharge planning is in place, anticipate discharge home with home health care in the next 24. 13. Discharge instructions reviewed with the patient. 14. More recommendations to follow based on patient's clinical course. Time with Patient: Greater than 30
[2021-10-15] MEDS ORDERED: POTASSIUM CHLORIDE ER 10 MEQ TAB.ER.PRT PO SCH (09:00)
[2021-10-15] MEDS ORDERED: DILTIAZEM CD 120 MG CAP.ER.24H PO SCH (09:00)
[2021-10-15] MEDS: IPRATROPIUM-ALBUTEROL 3 ML NEB INHALATION SCH ×2 (09:05→12:34)
--- NOTE | 2021-10-15 09:54 | P.DS ---
Providers Date of admission: 10/06/21 17:38 Expected date of discharge: 10/15/21 Attending physician: Surinder Rodríguez Consults: 10/06/21 17:37 Consult Physician Urgent Consulting Provider: [facility] Consult Reason/Comments: acute chest pain, nstemi Do you want consulting provider notified?: Yes 10/07/21 10:41 Consult Physician Routine Consulting Provider: Ki Motley Consult Reason/Comments: cabg Do you want consulting provider notified?: Already Contacted 10/07/21 10:42 Consult Physician Routine Consulting Provider: Yosi Washington Consult Reason/Comments: cabg Do you want consulting provider notified?: Yes 10/10/21 08:00 Consult to Anesthesia Routine Consulting Provider: Anesthesia,Services Consult Reason/Comments: Cardiac Surgery Pre-Op 10/11/21 14:20 Consult Physician Routine Consulting Provider: Surinder Rodríguez Consult Reason/Comments: Medical Management Do you want consulting provider notified?: Already Contacted Primary care physician: Surinder Rodríguez [facility] Course: FINAL DIAGNOSIS: 1. Multivessel coronary artery disease with left main disease 2. Non-ST elevated myocardial infarction this admission 3. Type 2 diabetes mellitus 4. History of hypertension 5. Hyperlipidemia 6. History of asthma 7. History of COPD 8. Remote history of nicotine abuse, quit smoking over 20 years ago 9. Occasional marijuana use 10. Methamphetamine abuse 11. Obesity 12. Fibromyalgia 13. Osteoarthritis 14. Family history of coronary artery disease 15. Postoperative acute blood loss anemia, expected given hemodilution PRINCIPAL PROCEDURE: 1. Off-pump coronary artery bypass grafting 3 vessels with sequential of the left internal mammary artery to the left anterior descending coronary artery and intermediate coronary artery and a T graft left radial artery graft to the first obtuse marginal coronary artery. 2. Ligation of the left atrial appendage with a 35 mm AtriCure clip. 3. Endovascular radial artery harvest. 4. Endovascular harvest of the right greater saphenous vein. HISTORY OF PRESENT ILLNESS: This is a 71-year-old female patient who follows with Dr. Rodríguez on an outpatient basis for her primary care service. She presented to the emergency department here at [facility] on 10/06/2021 with complaints of chest pain with taking a deep breath and shortness of breath even at rest. The patient's symptoms were an acute onset and she reports that the symptoms have been present off and on for the last 3 months. In the emergency department her lab results showed a WBC count of 16.1, hemoglobin 14.8, platelets 509, a d-dimer of 4.16, sodium 134, potassium 4.1, CO2 16, BUN 16, creatinine 0.90, glucose 182, plasma lactic acid 3.3, calcium 11.0, proBNP 544 and positive serial troponins as high as 2.050. A COVID-19 PCR test was completed which showed not detected. The patient also reports that she is vaccinated with the test company COVID-19 vaccination 2 doses. A 12-lead EKG was completed which showed sinus tachycardia with a heart rate of 119 BPM, left ventricular hypertrophy and a left bundle branch block. For further evaluation a chest x-ray was completed which showed no acute process. Due to her elevated d-dimer and presentation with shortness of breath and chest pain a CT angiogram for PE protocol was completed which showed no acute pulmonary embolus, mild dependent opacities, compatible with atelectasis and multi-nodular thyroid. Cardiology was consulted for further evaluation and treatment recommendations. A transthoracic 2-D echocardiogram and cardiac catheterization were subsequently completed. The transthoracic 2-D echocardiogram showed an overall left ventricular systolic function to be mild to moderately impaired with an ejection fraction between 40 and 45%, moderate mitral annular calcification, mild mitral valve regurgitation and mild tricuspid valve regurgitation. The cardiac catheterization demonstrated a 40-50% distal left main stenosis, an ostial 99% stenosis to her left anterior descending coronary artery, a 30-40% stenosis to her mid left anterior descending coronary artery, a 99% ostial circumflex coronary artery stenosis, a 78% stenosis to her posterior descending coronary artery and her mid and distal segment of her right coronary artery were shown to have diffuse intimal disease of 20-30% without any evidence of a high-grade stenosis. Subsequently, due to the findings on the heart catheterization a consult was placed to cardiothoracic surgery for further evaluation and treatment recommendations including myocardial revascularization surgery. The patient was seen and examined by Dr. Ruben Brewer from cardiothoracic surgery, treatment options were discussed with the patient including myocardial revascularization surgery, risks and benefits of the surgery were discussed including the STS risk score. Knowing and understanding the risks of myocardial revascularization surgery the patient wished to proceed with the surgical option. HOSPITAL COURSE: The patient was admitted to the hospital, and after obtaining consent on 10/11/2021 the patient was taken to the preoperative area, prepared in the usual fashion and subsequently taken to the operating room where Dr. Ruben Brewer performed an off-pump coronary artery bypass grafting 3 vessels with sequential of the left internal mammary artery to the left anterior descending coronary artery and intermediate coronary artery and a T graft left radial artery graft to the first obtuse marginal coronary artery, ligation of t he left atrial appendage with a 35 mm AtriCure clip, endovascular radial artery harvest and endovascular harvest of the right greater saphenous vein. Upon completion of the surgery the patient was transferred to the cardiovascular intensive care unit where she was recovered, and monitored hemodynamically. She was extubated, all lines, tubes and supportive drips were discontinued when appropriate and she was subsequently transferred to the third floor cardiac stepdown unit for further monitoring and rehabilitation. Her oxygen was titrated down, she continued to work with physical, occupational therapy and cardiac rehabilitation, she was tolerating an oral diet, her pain was well controlled and she was ready to be discharged home with [facility] care on postoperative day #4. She has received written and verbal instructions regarding her medications, activity restrictions, signs and symptoms requiring physician notification and her follow-up appointments. Patient Condition at Discharge: Serious Plan - Discharge Summary Discharge Rx Participant: No New Discharge Prescriptions: New Aspirin 325 mg PO DAILY #30 tab Diltiazem Cd [Cardizem CD] 120 mg PO DAILY #30 capsule Potassium Chloride ER [K-Dur 20] 20 meq PO DAILY #5 tab Furosemide [Lasix] 40 mg PO DAILY #5 tablet Pantoprazole [Protonix] 40 mg PO AC-BRKFST #30 tab Sennosides-Docusate Sodium [Senokot-S] 2 each PO HS #14 tab Acetaminophen Tab [Tylenol] 650 mg PO Q6HR PRN tab PRN Reason: Mild Pain or Fever > 38.3 C Losartan [Cozaar] 25 mg PO DAILY@1200 #30 tab Atorvastatin [Lipitor] 40 mg PO DAILY #30 tab Metoprolol Tartrate [Lopressor] 50 mg PO BID #60 tab Clopidogrel [Plavix] 75 mg PO DAILY #30 tab Continue Ibuprofen [Motrin] 800 mg PO TID-W/MEALS PRN PRN Reason: Pain traMADol HCl [Ultram] 100 mg PO BID PRN PRN Reason: Pain Baclofen 10 mg PO TID PRN PRN Reason: Pain rOPINIRole HCL [Requip] 2 mg PO HS Discontinued Spironolactone-Hctz 25-25Mg [Aldactazide 25-25 MG] 1 tab PO DAILY Losartan Potassium 100 mg PO DAILY atenoloL [Tenormin] 50 mg PO DAILY #30 tab No Action metFORMIN HCL [Glucophage] 1,000 mg PO BID-W/MEALS sitaGLIPtin [Januvia] 100 mg PO DAILY Discharge Medication List Ibuprofen [Motrin] 800 mg PO TID-W/MEALS PRN 06/02/14 [History] metFORMIN HCL [Glucophage] 1,000 mg PO BID-W/MEALS 06/02/14 [History] traMADol HCl [Ultram] 100 mg PO BID PRN 11/04/15 [History] Baclofen 10 mg PO TID PRN 09/14/16 [History] sitaGLIPtin [Januvia] 100 mg PO DAILY 03/04/19 [History] rOPINIRole HCL [Requip] 2 mg PO HS 07/21/20 [History] Acetaminophen Tab [Tylenol] 650 mg PO Q6HR PRN tab 10/15/21 [Rx] Aspirin 325 mg PO DAILY #30 tab 10/15/21 [Rx] Atorvastatin [Lipitor] 40 mg PO DAILY #30 tab 10/15/21 [Rx] Clopidogrel [Plavix] 75 mg PO DAILY #30 tab 10/15/21 [Rx] Diltiazem Cd [Cardizem CD] 120 mg PO DAILY #30 capsule 10/15/21 [Rx] Furosemide [Lasix] 40 mg PO DAILY #5 tablet 10/15/21 [Rx] Losartan [Cozaar] 25 mg PO DAILY@1200 #30 tab 10/15/21 [Rx] Metoprolol Tartrate [Lopressor] 50 mg PO BID #60 tab 10/15/21 [Rx] Pantoprazole [Protonix] 40 mg PO AC-BRKFST #30 tab 10/15/21 [Rx] Potassium Chloride ER [K-Dur 20] 20 meq PO DAILY #5 tab 10/15/21 [Rx] Sennosides-Docusate Sodium [Senokot-S] 2 each PO HS #14 tab 10/15/21 [Rx] Follow up Appointment(s)/Referral(s): Tori Pandey NPC [Nurse Practitioner] - 10/18/21 11:45 am (Please follow-up at [address], [address], [place] [address]. Office number is [phone].) Jairo Lantigua MD [STAFF PHYSICIAN] - 1 Week Ruben Brewer MD [STAFF PHYSICIAN] - 3 Weeks (Tianna from Dr. Brewer's office will call with a follow-up appointment.) [facility], [NON-STAFF] - Surinder Rodríguez MD [Primary Care Provider] - 3 Days Silvia Murry MD [STAFF PHYSICIAN] - 1 Week Ambulatory/Diagnostic Orders: Complete Blood Count w/diff [LAB.AMB] Time Frame: 10/18/21, Facility: [facility], Location: Laboratory [facility] Comprehensive Metabolic Panel [LAB.AMB] Time Frame: 10/18/21, Facility: [facility], Location: Laboratory [facility] Activity/Diet/Wound Care/Special Instructions: DISCHARGE INSTRUCTIONS: 1. No driving for 4 weeks, or until physician gives their ok. 2. The patient should sleep in their own bed, no medical bed needed. 3. Stairs are not an issue. If the bedroom is upstairs, it is advised that the patient go up at night and down in the morning for the first week. Go slowly, using handrail and take 1 step at a time. 4. EMMIE hose are to be worn for 30 days or until physician discontinues. 5. Heart hugger is to be worn 100% of the time until physician discontinues.(except when showering) 6. No lifting, pushing, or pulling more than 10 pounds for 12 weeks. The physician will advise of any restriction changes. 7. The patient is expected to continue the prescribed walking program. 8. Continue pain control per as needed orders. 9. Continue with incentive spirometry and splinting/heart hugger until otherwise directed by the physician. 10. Must shower daily using liquid antibacterial soap and a separate white washcloth for each individual incision. 11. Routine sternal incision care. No powders, lotions, ointments on incisions. No dressings are necessary on incisions unless they are draining. Dermabond tape is to remain on sternal incision until surgeon follow-up. 12. Please call surgeon/CUTTER HAND for temp greater than 101 F or purulent drainage from incisions. 13. Narcotic medications were discussed with the patient, including the potential for misuse, addiction, and abuse. Opiod Start Talking form was reviewed with the patient. 14. All prescriptions given by surgeon for 30 days. Refills need to be filled through bias machine operator/primary care physician. 15. A Red armband has been placed on the patient. It should be worn for 30 days post surgery and will be removed by the cardiac surgeons. If an ER visit is necessary, please make sure the number on the Red armband is called. 16. You have been referred to and are expected to begin Cardiac Rehab in approximately 4-6 weeks. HOME HEALTH SERVICES TO PROVIDE: RN SKILLED HOME CARE SERVICES FOR POST-OP SURGICAL PATIENTS WITH THE FOLLOWING: Coronary Artery Bypass Surgery (CABG), Mitral Valve Replacement/Repair ( MVR), Aortic Valve Replacement/Repair (AVR) RN TO CONTINUE EDUCATION FROM ``ROAD TO A HEALTH HEART PATIENT EDUCATION MANUAL (GIVEN TO PATIENT IN THE HOSPITAL) MEDICATION RECONCILIATION WITH EDUCATION NEEDED ON FIRST HOME VISIT EMPHASIZE IMPORTANCE OF WEARING BREAST SUPPORT/HEART HUGGER ENCOURAGE USE OF INCENTIVE SPIROMETER 10 X EVERY HOUR WHILE AWAKE ENCOURAGE UTILIZATION OF LOWER EXTREMITY COMPRESSION STOCKINGS/EMMIE HOSE and ELEVATE LEGS ABOVE LEVEL OF HEART WHILE AT REST. ENCOURAGE AMBULATION 3-5x/day INCREASING TOLERATES, WHILE AVOIDING EXTREMES IN TEMPERATURE FREQUENCY: RN TO OPEN THE PATIENT WITHIN 24 HOURS OF DISCHARGE FROM THE HOSPITAL WITH TELEHEALTH INSTALLED AT [facility], RN TO VISIT 2-3 X A WEEK FOR 4 WEEKS ESTABLISHED BY PATIENT NEEDS. LABORATORY: CBC, CMP TO BE DRAWN ON THE THIRD DAY HOME, (RAN STAT) FAX RESULTS TO [phone]. TELEHEALTH PARAMETERS: WEIGHT: NOTIFY MD OF WEIGHT GAIN OF 2 LBS IN 24 HOURS OR 5 LBS IN ONE WEEK HR: NOTIFY MD OF HR <55 BPM OR HR>100 BPM BP: NOTIFY MD IF BP <90/55 OR BP>140/100 O2 SAT: NOTIFY MD IF PO2<93% ON ROOM AIR SEND TELEHEALTH REPORT TO DRYING RACK CHANGER AND CARDIOVASCULAR SURGEON THE FIRST WEEK OF CARE AND THEN BI-WEEKLY. PLEASE ADDITIONALLY COMMUNICATE ANY ABNORMALS AND NEW FINDINGS TO THE SURGEONS OFFICE. Discharge/Stand Alone Forms: AA Meetings [facility], Who Do I Call?, Community Resources, Help In The Home, Outpatient Counseling Discharge Disposition: HOME WITH HOME HEALTH SERVICES
--- NOTE | 2021-10-15 10:00 | P.PN ---
Subjective Progress Note Date: 10/15/21 Mark Moore, he is a 71-year-old female who presented to [facility] emergency room with a chief complaint of worsening shortness of breath and chest discomfort. She was evaluated in the emergency room vital examination on presentation revealed a temperature of 97.7 pulse 127 respiration 26 blood pressure 148/104 pulse ox 100% on room air Laboratory data revealed a white blood count of 16.1 hemoglobin 14.8 platelet count 509 sodium 134 potassium 4.1 chloride 96 CO2 16 BUN 16 creatinine 0.9 glucose level was 182 troponin level was elevated at 0.146 plasma lactic acid was elevated at 2.1 urine toxicology screen was positive for methamphetamine, benzodiazepine, and marijuana. Testing in the emergency room revealed CT angiogram of the chest revealed no evidence of acute pulmonary embolism, EKG revealed left bundle branch block Patient was admitted to medical floor for further evaluation and treatment, she was started on IV heparin cardiology and pulmonary consultation were requested. Past medical history is significant for history of hypertension, history of hyperlipidemia, history of anxiety disorder, history of restless leg syndrome, history of diabetes mellitus type 2, history of asthma, history of obstructive sleep apnea, and previous history of smoking. On 10/08/2021 patient underwent cardiac catheterization revealing multivessel disease. Cardiothoracic surgery is following plans for coronary artery bypass graft surgery on Monday. Patient remains on heparin drip. At this time patient denies chest pain or shortness breath. Patient denies nausea vomiting or diarrhea. Pulmonary and cardiology services also following. Preoperative workup in progress per cardiothoracic surgery On 10/09/2021atient was seen and examined on the medical floor, she is alert and oriented x 3 in no distress, she denies any complaints there is no fever or chills no headache or dizziness no chest pain no shortness of breath no palpitation no cough no nausea or vomiting no abdominal pain no diarrhea no blood in the stools no burning with urination no frequency or urgency and no hematuria, there is no weakness or numbness in any of the extremities no change in vision speech or gait. Plan is for coronary artery bypass graft surgery on Monday. Patient understands condition and plans well. On 10/10/2021 patient is alert and oriented 3 resting comfortably in bed. Pat ient denies chest pain or shortness breath. Patient denies nausea vomiting or diarrhea. Patient denies any urinary burning or frequency. Patient remains on IV heparin. Plans for coronary artery bypass graft surgery tomorrow 10/11/[address] Brewer On 10/11/2021, patient was not seen she was in operating room all day. On 10/12/2021 patient was seen and examined in the ICU she is alert and oriented in no apparent distress there is no fever or chills no headache or dizziness no chest pain no shortness of breath no cough no nausea or vomiting no abdominal pain no diarrhea and no urinary symptoms vital exam reveals a temperature of 98.9 pulse 106 respiration 18 blood pressure 106/49 pulse ox 94% on 2 L nasal cannula white blood count is 7.4 hemoglobin 8.2 platelet count 227 BUN 10 crea tinine 0.62 On 10/13/2021 patient's alert and oriented 3. Patient remains in the intensive care unit. Did discuss case with cardiothoracic nurse practitioner plans to remove chest tube today and possibly transfer out of intensive care unit. Blood pressure 115/58, temp 98.4. Heart rate 95. Pulse ox 96% on 2 L. At this time patient denies chest pain or shortness breath. Patient denies nausea vomiting or diarrhea. Patient denies any urinary burning or frequency. On 10/14/2021 patient was seen and examined on the telemetry floor she is alert and oriented 3 in no apparent distress, she is complaining of shortness of breath when she walked, she is also complaining of some chest wall pain, otherwise she denies any complaints there is no fever or chills no headache or dizziness, no cough, no nausea or vomiting no abdominal pain, no diarrhea no blood in the stools no burning with urination no frequency or urgency and no hematuria. Case was discussed was Dash Lopez, cardiovascular GIS COORDINATOR chest tubes were removed yesterday, no evidence of pneumothorax. On 10/15/2021 patient's alert and oriented 3. Patient denies chest pain or shortness of breath. Patient denies nausea vomiting or diarrhea. Patient denies any urinary burning or frequency. Discussed case with Dash Lopez nurse practitioner plans for discharge home today. Patient to resume home that beneath medication and follow-up outpatient with PCP for further management. Objective - Vital Signs Vital signs: Vital Signs Temp 98.0 F 10/15/21 04:00 Pulse 94 10/15/21 09:21 Resp 17 10/15/21 04:00 BP 112/72 12/24/21 04:00 Pulse Ox 96 10/15/21 09:08 Intake & Output 10/14/21 10/15/21 10/15/21 18:59 06:59 18:59 Intake Total 240 240 240 Output Total 1350 1300 Balance -1110 -1060 240 Weight 94.6 kg Intake: Oral 240 240 240 Output: Urine 1350 1300 Other: Voiding Method Toilet # Voids 2 ABP, PAP, CO, CI - Last Documented Arterial Blood Pressure 124/66 Pulmonary Artery Pressure 30/13 Cardiac Output 7.9 Cardiac Index 4.1 - Exam In general patient is alert and oriented x 3 in no distress HEENT head normocephalic and atraumatic Neck is supple no JVD no goiter no lymphadenopathy no carotid bruit Chest examination reveals a few scattered crackles bilaterally no wheezing Cardiac exam reveals regular heart sounds S1 and S2 no gallops no murmurs Abdomen is soft nontender no organomegaly with normal bowel sounds Extremity exam reveals no edema no cyanosis or clubbing Neurological examination reveals no gross focal deficits - Labs CBC & Chem 7: 10/15/21 06:26 10/15/21 06:26 Labs: Abnormal Lab Results - Last 24 Hours (Table) 10/14/21 10/14/21 10/14/21 Range/Units 11:38 16:46 20:29 RBC (3.80-5.40) m/uL Hgb (11.4-16.0) gm/dL Hct (34.0-46.0) % RDW (11.5-15.5) % Sodium (137-145) mmol/L Chloride (98-107) mmol/L Glucose (74-99) mg/dL POC Glucose (mg/dL) 170 H 170 H 178 H (75-99) mg/dL Total Protein (6.3-8.2) g/dL Albumin (3.5-5.0) g/dL 10/15/21 10/15/21 10/15/21 Range/Units 05:38 06:26 06:26 RBC 3.33 L (3.80-5.40) m/uL Hgb 9.0 L (11.4-16.0) gm/dL Hct 27.8 L (34.0-46.0) % RDW 17.8 H (11.5-15.5) % Sodium 136 L (137-145) mmol/L Chloride 96 L (98-107) mmol/L Glucose 164 H (74-99) mg/dL POC Glucose (mg/dL) 164 H (75-99) mg/dL Total Protein 6.1 L (6.3-8.2) g/dL Albumin 3.3 L (3.5-5.0) g/dL Assessment and Plan Plan: Acute non-ST elevation myocardial infarction Severe coronary artery disease with triple-vessel coronary artery disease. Cardiothoracic surgery were consulted and patient underwent coronary artery bypass graft surgery 3 on 10/11/2021 Shortness of breath, could be related to acute myocardial infarction, however no evidence of pulmonary congestion on chest x-ray, and no elevation in BNP, possibility of acute asthma exacerbation. Pulmonary services are following Toxicology screen positive for methamphetamine and marijuana use Underlying history of hypertension Underlying history of hyperlipidemia Underlying history of diabetes mellitus type 2 patient underwent coronary artery bypass graft surgery on 10/11/2021 Patient transferred to telemetry floor Plan for chest tube removal today 10/13/2021 per cardiothoracic Plans for discharge home today 10/15/2021 per cardiothoracic surgery Medications and labs were reviewed will follow closely
[2021-10-15] MEDS: MAGNESIUM SULFATE-D5W PMX 1 GM in DEXTROSE/WATER 1 100ML.BAG IVPB SCH ×2 (10:16→11:29)
[2021-10-15] MEDS: ENOXAPARIN 40 MG/0.4 ML SYRINGE SQ SCH (10:19)
[2021-10-15] MEDS: ATORVASTATIN 40 MG TAB PO SCH (10:19)
[2021-10-15] MEDS: CLOPIDOGREL 75 MG TAB PO SCH (10:19)
[2021-10-15] MEDS: ASPIRIN 325 MG TAB PO SCH (10:19)
[2021-10-15] MEDS: METOPROLOL TARTRATE 50 MG TAB PO SCH (10:20)
--- NOTE | 2021-10-15 10:41 | P.PN ---
Subjective Progress Note Date: 10/15/21 I saw the patient immediately after the patient arrived to the intensive care unit following the cardiac bypass surgery. This was a off pump coronary artery bypass surgery 3 with SIMPSON to LAD. The patient for surgery, was brought into the intensive care unit intubated on a mechanical ventilator and the patient was on propofol. Initial ventilator settings included a assist-control mode at the rate of 12 with tidal volume of 475 with an FiO2 of 100% and a PEEP of 10. Chest x-ray was noted. Blood gases was noted. During the course of this postsurgical phase, the patient was weaned off gradually and FiO2 was dropped down and subsequently the PEEP was reduced down to 10. Probable was gradually w eaned off and at that point weaning parameters were checked and the parameters were adequate. Following that the patient was given a spelled his breathing trial with a pressure support of 5 and PEEP of 5. Her blood gases following the reading Harris showed a pH of 7.4 with a pCO2 of 39 and pO2 of 123. At that point the patient was extubated and currently she is on 3 L of oxygen by nasal cannula. Chest x-ray postop showed adequate positioning of the orotracheal tube. No evidence of any pneumothorax. The patient has chest tubes and the patient has a mediastinal chest tube and the left pleural chest tube and output from the chest tubes have been essentially minimal. The patient did have some limited amount of subcutaneous emphysema on the left as noted on the chest x- ray. At this point in time, the output from the chest tubes are in order of 200 mL total 11 from the operating room. The patient has no evidence of any air leak. Hemodynamically, the patient is producing adequate amount of urine output. Cardiac rhythm is sinus. The cardiac output and index are 7.2 and 3.7 respectively and the pulmonary artery pressure is 38/22 cm of water. Her pain is under good control. She was offered extremities without any limitation. Note that this patient was extubated with a six-hour window after arriving to the intensive care unit. The patient is currently on nitroglycerin drip at 5 g per minute and Cardizem drip at 5 mg an hour. Insulin drip is at 0.5 units an hour and the patient is also on lactated Ringer at the rate of 50 mL an hour. Urine output is adequate for now. The patient is seen today 10/12/2021 in follow-up in the intensive care unit. She is currently resting quite comfortably in bed. Awake and alert in no acute distress. She successfully extubated within 6 hours of surgery. She is currently on 2 L/m per nasal cannula. She's been hemodynamically stable. Chest x-ray reveals persistent cardiomegaly with central vascular congestion and small tiny bilateral effusions along with left greater than right She is working well with the incentive spirometer pulling approxi-750 mL. Mediastinal and pleural chest tubes remain in place. [place]-Sim[place] catheter has been removed. Last cardiac output and index were stable. She is still on insulin drip at 1.5 units per hour. Cardizem drip at 5 mg per hour. Currently in sinus rhythm. Lactated Ringer's at 50 MLS per hour. White count 7.4. Hemoglobin 8.2. Platelets 11/24/2026. Sodium 134. Potassium 4.0. Creatinine 0.62. Magnesium 1.4. Continued on DuoNeb inhalations, antibiotics in the form of vancomycin. The patient is seen today 10/14/2021 in follow-up in the selective care unit. She is currently sitting up in a chair at the bedside. Awake and alert in no acute distress. She is a bit more short of breath today compared to yesterday. Currently maintaining O2 saturations in the upper 90s on 3 L/m per nasal cannula. She's been afebrile. Hemodynamically stable. Chest x-ray continues to show basilar atelectasis, minimal left apical pneumothorax. Stable cardiomegaly. Ultrasound of the chest reveals an 8.1 cm pocket on the right. 1.4 cm pocket on the left. White count 8.8. Hemoglobin 8.3. Platelets 286. Sodium 134. Potassium 4.3. Creatinine 0.63. Glucose 140. She is continued on DuoNeb inhalations. She is on Lasix 40 IV every 12 hours The patient is seen today 10/14/2021 in follow-up in the selective care unit. She is currently sitting up in a chair at the bedside. Awake and alert in no acute distress. Maintaining good O2 saturations in the 90s on room air. she is afebrile. Hemodynamically stable. White count 8.5. Hemoglobin 9.0. Sodium 136. Potassium 3.7. Creatinine 0.73.chest x-ray reveals stable cardiomegaly and mild central vascular congestion with a small to tiny right greater than left pleural effusions. Basilar atelectasis. She is again encouraged regarding the increased use the incentive spirometer and cough and deep breathing exerc ises. She remains on bronchodilators and IV diuretics. Objective - Vital Signs Vital signs: Vital Signs Temp 98.0 F 10/15/21 04:00 Pulse 94 10/15/21 09:21 Resp 17 10/15/21 04:00 BP 112/72 10/15/21 04:00 Pulse Ox 96 10/15/21 09:08 Intake & Output 10/14/21 10/15/21 10/15/21 18:59 06:59 18:59 Intake Total 240 240 240 Output Total 1350 1300 Balance -1110 -1060 240 Weight 94.6 kg Intake: Oral 240 240 240 Output: Urine 1350 1300 Other: Voiding Method Toilet # Voids 2 ABP, PAP, CO, CI - Last Documented Arterial Blood Pressure 124/66 Pulmonary Artery Pressure 30/13 Cardiac Output 7.9 Cardiac Index 4.1 - Exam GENERAL EXAM: Alert, very pleasant 71-year-old female patient, on room air, comfortable in no apparent distress. HEAD: Normocephalic. EYES: Normal reaction of pupils, equal size. NOSE: Clear with pink turbinates. THROAT: No erythema or exudates. NECK: No masses, no JVD. CHEST: Heart hugger in place. No chest wall deformity. Chest tube sites clean and dry LUNGS: Equal air entry with faint crackles in the posterior bases. CVS: S1 and S2 normal with no audible murmur, regular rhythm. ABDOMEN: No hepatosplenomegaly, normal bowel sounds, no guarding or rigidity. SPINE: No scoliosis or deformity SKIN: No rashes CENTRAL NERVOUS SYSTEM: No focal deficits, tone is normal in all 4 extremities. EXTREMITIES: There is no peripheral edema. No clubbing, no cyanosis. Peripheral pulses are intact. - Labs CBC & Chem 7: 10/15/21 06:26 10/15/21 06:26 Labs: Abnormal Lab Results - Last 24 Hours (Table) 10/14/21 10/14/21 10/14/21 Range/Units 11:38 16:46 20:29 RBC (3.80-5.40) m/uL Hgb (11.4-16.0) gm/dL Hct (34.0-46.0) % RDW (11.5-15.5) % Sodium (137-145) mmol/L Chloride (98-107) mmol/L Glucose (74-99) mg/dL POC Glucose (mg/dL) 170 H 170 H 178 H (75-99) mg/dL Total Protein (6.3-8.2) g/dL Albumin (3.5-5.0) g/dL 10/15/21 10/15/21 10/15/21 Range/Units 05:38 06:26 06:26 RBC 3.33 L (3.80-5.40) m/uL Hgb 9.0 L (11.4-16.0) gm/dL Hct 27.8 L (34.0-46.0) % RDW 17.8 H (11.5-15.5) % Sodium 136 L (137-145) mmol/L Chloride 96 L (98-107) mmol/L Glucose 164 H (74-99) mg/dL POC Glucose (mg/dL) 164 H (75-99) mg/dL Total Protein 6.1 L (6.3-8.2) g/dL Albumin 3.3 L (3.5-5.0) g/dL Assessment and Plan Assessment: 1 Coronary artery disease status post coronary artery bypass grafting 2 Hypertension 3 Hyperlipidemia 4 Diabetes mellitus 5 History of methamphetamine use 6 Occasional marijuana use 7 Previous chronic tobacco dependence 8 Obesity 9 Fibromyalgia 10 Osteoarthritis 11 History of sleep apnea Plan: The patient was seen and evaluated Chest x-ray and labs reviewed Encouraged increased use of the incentive spirometer and cough and deep breathing exercises Stable and on room air Follow-up in the office in 1-2 weeks' I, the cosigning physician, performed a history & physical examination of the patient. Lungs sounds with faint crackles in the posterior bases. Maintaining good O2 saturations in the 90s on room air. I discussed the assessment and plan of care with my nurse practitioner, Thi Pacheco. I attest to the above note as dictated by her.
[2021-10-15 11:23] VITALS: RESP 18
[2021-10-15] MEDS: LOSARTAN 25 MG TAB PO SCH (11:30)
[2021-10-15 11:57] LABS: Glucose,Whole Blood 173 mg/dL (75-99)
[2021-10-15 12:24] VITALS: BP 118/77; TEMP 98
[2021-10-15 13:57] VITALS: PULSE 105
--- NOTE | 2021-10-15 17:40 | P.PN ---
Subjective Progress Note Date: 10/15/21 This 71-year-old female with history of multivessel disease has undergone bypass surgery with the SIMPSON graft to the LAD and intermediate coronary artery and a T graft of left radial artery graft to the first OM branch and the ligation of the left atrial appendage. Patient was transferred to telemetry unit. Yesterday from my intensive care unit. Patient was slightly short of breath yesterday and received IV diuretics. Patient is feeling much better today. He discharged home to be followed with cardiac surgeon and also Dr. Lantigua as an outpatient. She is being discharged home on an aspirin, diltiazem, potassium, Lasix 40 mg daily, Lipitor 40 mg daily metoprolol tartrate 50 mg by mouth twice a day and clopidogrel 75 mg daily. Patient activity to be gradually increased as tolerated. Incentive spirometry to be continued Objective - Vital Signs Vital signs: Vital Signs Temp 98.0 F 10/15/21 12:00 Pulse 105 H 10/15/21 13:55 Resp 18 10/15/21 13:55 BP 118/77 10/15/21 12:00 Pulse Ox 95 10/15/21 12:00 Intake & Output 10/14/21 10/15/21 10/15/21 18:59 06:59 18:59 Intake Total 240 240 240 Output Total 1350 1300 600 Balance -1110 -1060 -360 Weight 94.6 kg Intake: Oral 240 240 240 Output: Urine 1350 1300 600 Other: Voiding Method Toilet Toilet # Voids 2 ABP, PAP, CO, CI - Last Documented Arterial Blood Pressure 124/66 Pulmonary Artery Pressure 30/13 Cardiac Output 7.9 Cardiac Index 4.1 - Exam GENERAL EXAM: Patient is alert and oriented and doesn't appear to be in any acute distress HEENT: Normocephalic. Normal reaction of pupils, equal size, normal range of extraocular motion. No erythema or exudates in the throat. NECK: No masses, no nuchal rigidity. CHEST: Postsurgical LUNGS: Diminished air exchange HEART: S1 and S2 normal with no audible mumurs or gallops. Regular rhythm, femorals equal on both sides.. ABDOMEN: No hepatosplenomegaly, normal bowel sounds, no guarding or rigidity. SKIN: No rashes CENTRAL NERVOUS SYSTEM: No focal deficits. EXTREMITIES: No cyanosis, clubbing or edema. - Labs CBC & Chem 7: 10/15/21 06:26 10/15/21 06:26 Labs: Abnormal Lab Results - Last 24 Hours (Table) 10/14/21 10/15/21 10/15/21 Range/Units 20:29 05:38 06:26 RBC 3.33 L (3.80-5.40) m/uL Hgb 9.0 L (11.4-16.0) gm/dL Hct 27.8 L (34.0-46.0) % RDW 17.8 H (11.5-15.5) % Sodium (137-145) mmol/L Chloride (98-107) mmol/L Glucose (74-99) mg/dL POC Glucose (mg/dL) 178 H 164 H (75-99) mg/dL Total Protein (6.3-8.2) g/dL Albumin (3.5-5.0) g/dL 10/15/21 10/15/21 Range/Units 06:26 11:56 RBC (3.80-5.40) m/uL Hgb (11.4-16.0) gm/dL Hct (34.0-46.0) % RDW (11.5-15.5) % Sodium 136 L (137-145) mmol/L Chloride 96 L (98-107) mmol/L Glucose 164 H (74-99) mg/dL POC Glucose (mg/dL) 173 H (75-99) mg/dL Total Protein 6.1 L (6.3-8.2) g/dL Albumin 3.3 L (3.5-5.0) g/dL Assessment and Plan (1) Status post aorto-coronary artery bypass graft Status: Acute Code(s): Z95.1 - PRESENCE OF AORTOCORONARY BYPASS GRAFT SNOMED Code(s): 235593990 (2) Left bundle branch block Status: Acute Code(s): I44.7 - LEFT BUNDLE-BRANCH BLOCK, UNSPECIFIED SNOMED Code(s): 93846196 (3) NSTEMI (non-ST elevated myocardial infarction) Status: Acute Code(s): I21.4 - NON-ST ELEVATION (NSTEMI) MYOCARDIAL INFARCTION SNOMED Code(s): 34255232 Plan: Patient is being discharged home. Continue current medical therapy. Follow up with the Dr. Lantigua
== END 2021-10-15 14:40 | disposition home health service (06) | DRG 234 ==
LOC: EC 15:15 → 3SCARD 17:38 → 2SICU 10-11 09:03 → 3SCARD 10-13 18:28
PROVIDERS: ADMIT Internal Medicine; ATTEND Internal Medicine
PROC: B2111ZZ Fluoroscopy of Multiple Coronary Arteries using Low Osmolar Contrast (ICD-10-PCS; 2021-10-07)
PROC: 4A023N7 Measurement of Cardiac Sampling and Pressure, Left Heart, Percutaneous Approach (ICD-10-PCS; 2021-10-07)
PROC: 06BP4ZZ Excision of Right Saphenous Vein, Percutaneous Endoscopic Approach (ICD-10-PCS; 2021-10-11)
PROC: 02L70CK Occlusion of Left Atrial Appendage with Extraluminal Device, Open Approach (ICD-10-PCS; 2021-10-11)
PROC: B24BZZ4 Ultrasonography of Heart with Aorta, Transesophageal (ICD-10-PCS; 2021-10-11)
PROC: 02110Z9 Bypass Coronary Artery, Two Arteries from Left Internal Mammary, Open Approach (ICD-10-PCS; principal; 2021-10-11 08:00)
PROC: 02100AW Bypass Coronary Artery, One Artery from Aorta with Autologous Arterial Tissue, Open Approach (ICD-10-PCS; 2021-10-11 08:00)
PROC: 03BC0ZZ Excision of Left Radial Artery, Open Approach (ICD-10-PCS; 2021-10-11 08:00)
PROC: B51D1ZZ Fluoroscopy of Bilateral Lower Extremity Veins using Low Osmolar Contrast (ICD-10-PCS; 2021-10-13)
DX: I21.4 Non-ST elevation (NSTEMI) myocardial infarction (principal); D62 Acute posthemorrhagic anemia; J98.11 Atelectasis; J93.9 Pneumothorax, unspecified; I25.110 Atherosclerotic heart disease of native coronary artery with unstable angina pectoris; D72.829 Elevated white blood cell count, unspecified; E11.9 Type 2 diabetes mellitus without complications; E66.9 Obesity, unspecified; Z68.38 Body mass index [BMI] 38.0-38.9, adult; E78.5 Hyperlipidemia, unspecified; F15.10 Other stimulant abuse, uncomplicated; G25.81 Restless legs syndrome; J98.2 Interstitial emphysema; I11.9 Hypertensive heart disease without heart failure; I25.5 Ischemic cardiomyopathy; I44.7 Left bundle-branch block, unspecified; J44.9 Chronic obstructive pulmonary disease, unspecified; M19.90 Unspecified osteoarthritis, unspecified site; M79.7 Fibromyalgia; Z20.822 Contact with and (suspected) exposure to COVID-19; Z79.02 Long term (current) use of antithrombotics/antiplatelets; Z79.4 Long term (current) use of insulin; Z79.82 Long term (current) use of aspirin; Z79.899 Other long term (current) drug therapy; Z82.49 Family history of ischemic heart disease and other diseases of the circulatory system; Z83.3 Family history of diabetes mellitus; Z87.891 Personal history of nicotine dependence; Z88.2 Allergy status to sulfonamides; Z88.1 Allergy status to other antibiotic agents; G47.33 Obstructive sleep apnea (adult) (pediatric)
CPT/HCPCS: 36415; 70450; 71045; 71046; 71275; 76604; 80048; 80053; 80061; 80074; 80306; 81001; 82330; 82805; 83036; 83605; 83735; 83880; 84443; 84484; 85025; 85379; 85520; 85610; 85730; 86850; 86891; 86900; 86901; 86920; 87070; 87635; 93005; 93306; 93308; 93458; 93880; 93922; 93930; 93970; 94002; 94640; 94760; 96361; 96374; 96376; 99285

== ENCOUNTER 2021-11-26 15:48 | Inpatient (IN) | payer MEDICARE, OTHER ==
[2021-11-26] MEDS ORDERED: NITROGLYCERIN-D5W PMX 50 MG in DEXTROSE/WATER 1 250ML.BAG IV ONE (15:58)
[2021-11-26] MEDS: NITROGLYCERIN SL TABS 0.4 MG TAB SUBLINGUAL PRN ×2 (15:58→16:03)
[2021-11-26] MEDS ORDERED: FUROSEMIDE 10 MG/ML 4 ML VIAL IV STA (15:59)
--- NOTE | 2021-11-26 16:10 | ED ---
General Adult HPI - General Chief complaint: Shortness of Breath Stated complaint: NIDIA Time Seen by Provider: 11/26/21 15:52 Source: patient, EMS Mode of arrival: EMS Limitations: no limitations - History of Present Illness Initial comments: Dictation was produced using [employer] dictation software. please excuse any grammatical, word or spelling errors. Chief Complaint: 71-year-old female who is approximately a month and a half out from coronary artery bypass surgery presents emergency room for shortness of breath History of Present Illness: 71-year-old female she has multiple comorbidities. In September of last year patient had coronary artery bypass grafting surgery performed here in our facility. Patient is a limited historian at this time due to breathing difficulties. Patient is brought in by EMS for shortness of breath that has been ongoing for the last 2-3 days. EMS was called by patient's roommate for chief complaint shortness of breath upon initial arrival patient was found to be hypertensive. She was placed on noninvasive positive pressure ventilation. She is given 1 dose of sublingual nitroglycerin. Unable to obtain due to patient's clinical status PHYSICAL EXAM: General Impression: Alert, severely dyspneic HEENT: Normocephalic atraumatic, extra-ocular movements intact, pupils equal and reactive to light bilaterally, mucous membranes moist. Cardiovascular: Tachycardic Chest:no retractions, no tachypnea, diffuse crackles, midline chest scar clean dry and intact Abdomen: abdomen soft, non-tender, non-distended, no organomegaly Musculoskeletal: Pulses present and equal in all extremities, 2+ pitting edema to the lower extremities Motor: no focal deficits noted Neurological: CN II-XII grossly intact, no focal motor or sensory deficits noted Skin: Intact with no visualized rashes ED course: 71-year-old female presents emergency department for shortness of breath. Vital signs upon arrival shows respiratory to 46, heart rate of 152, blood pressure 203/122. Lung ultrasound exams performed showing findings consistent with heart failure. Clinical presentation consistent with hypertensi ve emergency. Patient was given 2 more sublingual nitroglycerin with improvement of blood pressure and respiratory status. She is given 40 mg of IV Lasix and started on nitroglycerin infusion. Patient's daily dose of Lasix is 40 mg by mouth daily. More history was obtained from patient. She states she hasn't been compliant with her medications. Review shows that patient has history of drug abuse. EKG interpretation: Ventricular rate 152, sinus tachycardia, NJ interval 122, QRS 96, QTC 419. No NJ prolongation, no QTC prolongation, no ST or T-wave changes noted. Laboratory evaluation obtained leukocytosis 12.4, hemoglobin of 8.3. Leukocytosis is likely stress-induced. He will any point around her baseline. Coag panel is negative. Metabolic panel shows positive anion gap acidosis with bicarb of 16 and gap of 16. Lactic acid level IX.1, troponin 0.039. Natruretic peptide 4160. Patient's most recent echocardiogram according to electronic medical record is from October 14 showing ejection fraction of 30%. Patient reevaluated bedside at 5:24 PM found to be in stable medical condition. Her breathing is significantly better. She achieved a 25% map reduction rate however blood pressures started to go down a little bit more. Patient's nitro infusion was paused. Considering patient's clinical presentation she'll be admitted to the intensive care unit. Case discussed with Dr. Sanches and swelling to accept patients care and ICU. Dr. Rodríguez was contacted who will be the hospitalist for the patient. - Related Data Home Medications Medication Instructions Recorded Confirmed Ibuprofen [Motrin] 800 mg PO TID-W/MEALS PRN 06/02/14 10/06/21 metFORMIN HCL [Glucophage] 1,000 mg PO BID-W/MEALS 06/02/14 10/06/21 traMADol HCl [Ultram] 100 mg PO BID PRN 11/04/15 10/06/21 Baclofen 10 mg PO TID PRN 09/14/16 10/06/21 sitaGLIPtin [Januvia] 100 mg PO DAILY 03/04/19 10/06/21 rOPINIRole HCL [Requip] 2 mg PO HS 07/21/20 10/06/21 Previous Rx's Medication Instructions Recorded Acetaminophen Tab [Tylenol] 650 mg PO Q6HR PRN tab 10/15/21 Aspirin 325 mg PO DAILY #30 tab 10/15/21 Atorvastatin [Lipitor] 40 mg PO DAILY #30 tab 10/15/21 Clopidogrel [Plavix] 75 mg PO DAILY #30 tab 10/15/21 Diltiazem Cd [Cardizem CD] 120 mg PO DAILY #30 capsule 10/15/21 Furosemide [Lasix] 40 mg PO DAILY #5 tablet 10/15/21 Losartan [Cozaar] 25 mg PO DAILY@1200 #30 tab 10/15/21 Metoprolol Tartrate [Lopressor] 50 mg PO BID #60 tab 10/15/21 Pantoprazole [Protonix] 40 mg PO AC-BRKFST #30 tab 10/15/21 Potassium Chloride ER [K-Dur 20] 20 meq PO DAILY #5 tab 10/15/21 Sennosides-Docusate Sodium 2 each PO HS #14 tab 10/15/21 [Senokot-S] Furosemide [Lasix] 40 mg PO DAILY #7 tablet 10/18/21 Potassium Chloride ER [K-Dur 20] 20 meq PO DAILY #7 tab 10/18/21 Allergies Allergy/AdvReac Type Severity Reaction Status Date / Time cephalexin Allergy Anaphylaxis Verified 10/11/21 06:12 cephalexin monohydrate Allergy Anaphylaxis Verified 10/11/21 06:12 [From Keflex] Sulfa (Sulfonamide Allergy Rash/Hives Verified 10/11/21 06:12 Antibiotics) Review of Systems ROS Statement: Those systems with pertinent positive or pertinent negative responses have been documented in the HPI. ROS Other: All systems not noted in ROS Statement are negative. 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 Poly substance abuse 07/19/21 admitted for Acute delirium History of Any Multi-Drug Resistant Organisms: None Reported Past Surgical History: Cholecystectomy, Hernia Repair, Orthopedic Surgery, Tonsillectomy, Tubal Ligation Additional Past Surgical History / Comment(s): LEFT KNEE ARTHROSCOPY, BMT AND MYRINGOPLASTY, umbilical hernia repair Past Anesthesia/Blood Transfusion Reactions: No Reported Reaction Additional Past Anesthesia/Blood Transfusion Reaction / Comment(s): STATES AFTER LAST EAR SX (11/2013) HAD SORE MUSCLES AND WAS WEAK FOR 3-4 DAYS Past Psychological History: Unable to Obtain Smoking Status: Former smoker Past Alcohol Use History: None Reported Past Drug Use History: Marijuana, Methamphetamine - Past Family History Sister(s) Family Medical History: Cancer Brother(s) Family Medical History: Cancer Additional Family Medical History / Comment(s): brother had heart valve replacement Mother Family Medical History: Chest Pain / Angina, Diabetes Mellitus, Hypertension Father History Unknown: Yes (She does not know her father's history.) General Exam Limitations: no limitations Course Vital Signs 11/26/21 11/26/21 11/26/21 15:50 16:03 16:10 Temperature 97.8 F Pulse Rate 152 H 158 H Respiratory 46 H 38 H 32 H Rate Blood Pressure 203/122 184/120 O2 Sat by Pulse 99 Oximetry 11/26/21 11/26/21 11/26/21 16:15 16:21 16:26 Temperature Pulse Rate 152 H 151 H 144 H Respiratory 30 H 29 H 27 H Rate Blood Pressure 164/108 157/119 121/99 O2 Sat by Pulse 97 100 97 Oximetry 11/26/21 11/26/21 11/26/21 16:30 16:35 17:00 Temperature Pulse Rate 140 H 133 H 130 H Respiratory 25 H 26 H 24 Rate Blood Pressure 148/108 126/102 127/84 O2 Sat by Pulse 99 100 100 Oximetry 11/26/21 11/26/21 11/26/21 17:06 17:13 17:16 Temperature Pulse Rate 130 H 131 H 129 H Respiratory 24 20 20 Rate Blood Pressure 112/82 98/77 94/73 O2 Sat by Pulse 100 100 100 Oximetry Medical Decision Making - Lab Data Result diagrams: 11/26/21 15:54 11/26/21 15:59 Lab Results 11/26/21 11/26/21 11/26/21 Range/Units 15:54 15:54 15:59 WBC 21.4 H (3.8-10.6) k/uL RBC 3.71 L (3.80-5.40) m/uL Hgb 8.3 L (11.4-16.0) gm/dL Hct 30.7 L (34.0-46.0) % MCV 82.7 (80.0-100.0) fL MCH 22.3 L (25.0-35.0) pg MCHC 27.0 L (31.0-37.0) g/dL RDW 17.2 H (11.5-15.5) % Plt Count 704 H (150-450) k/uL MPV 7.9 Neutrophils % (Manual) 31 % Lymphocytes % (Manual) 58 % Monocytes % (Manual) 6 % Eosinophils % (Manual) 5 % Neutrophils # (Manual) 6.63 (1.3-7.7) k/uL Lymphocytes # (Manual) 12.41 H (1.0-4.8) k/uL Monocytes # (Manual) 1.28 H (0-1.0) k/uL Eosinophils # (Manual) 1.07 H (0-0.7) k/uL Nucleated RBCs 0 (0-0) /100 WBC Polychromasia Present Hypochromasia Marked Poikilocytosis Slight Poikilocytosis (manual Present Anisocytosis Slight Ovalocytes Present PT 10.2 (9.0-12.0) sec INR 0.9 (<1.2) APTT 22.7 (22.0-30.0) sec Sodium 137 (137-145) mmol/L Potassium 4.5 (3.5-5.1) mmol/L Chloride 105 (98-107) mmol/L Carbon Dioxide 16 L (22-30) mmol/L Anion Gap 16 mmol/L BUN 7 (7-17) mg/dL Creatinine 0.74 (0.52-1.04) mg/dL Est GFR (CKD-EPI)AfAm >90 (>60 ml/min/1.73 sqM) Est GFR (CKD-EPI)NonAf 82 (>60 ml/min/1.73 sqM) Glucose 271 H (74-99) mg/dL Plasma Lactic Acid Angel (0.7-2.0) mmol/L Calcium 8.9 (8.4-10.2) mg/dL Magnesium 2.1 (1.6-2.3) mg/dL Total Bilirubin 0.5 (0.2-1.3) mg/dL AST 29 (14-36) U/L ALT 15 (4-34) U/L Alkaline Phosphatase 116 (38-126) U/L Troponin I (0.000-0.034) ng/mL NT-Pro-B Natriuret Pep pg/mL Total Protein 7.0 (6.3-8.2) g/dL Albumin 3.8 (3.5-5.0) g/dL 11/26/21 11/26/21 11/26/21 Range/Units 15:59 15:59 15:59 WBC (3.8-10.6) k/uL RBC (3.80-5.40) m/uL Hgb (11.4-16.0) gm/dL Hct (34.0-46.0) % MCV (80.0-100.0) fL MCH (25.0-35.0) pg MCHC (31.0-37.0) g/dL RDW (11.5-15.5) % Plt Count (150-450) k/uL MPV Neutrophils % (Manual) % Lymphocytes % (Manual) % Monocytes % (Manual) % Eosinophils % (Manual) % Neutrophils # (Manual) (1.3-7.7) k/uL Lymphocytes # (Manual) (1.0-4.8) k/uL Monocytes # (Manual) (0-1.0) k/uL Eosinophils # (Manual) (0-0.7) k/uL Nucleated RBCs (0-0) /100 WBC Polychromasia Hypochromasia Poikilocytosis Poikilocytosis (manual Anisocytosis Ovalocytes PT (9.0-12.0) sec INR (<1.2) APTT (22.0-30.0) sec Sodium (137-145) mmol/L Potassium (3.5-5.1) mmol/L Chloride (98-107) mmol/L Carbon Dioxide (22-30) mmol/L Anion Gap mmol/L BUN (7-17) mg/dL Creatinine (0.52-1.04) mg/dL Est GFR (CKD-EPI)AfAm (>60 ml/min/1.73 sqM) Est GFR (CKD-EPI)NonAf (>60 ml/min/1.73 sqM) Glucose (74-99) mg/dL Plasma Lactic Acid Angel 9.1 H* (0.7-2.0) mmol/L Calcium (8.4-10.2) mg/dL Magnesium (1.6-2.3) mg/dL Total Bilirubin (0.2-1.3) mg/dL AST (14-36) U/L ALT (4-34) U/L Alkaline Phosphatase (38-126) U/L Troponin I 0.039 H* (0.000-0.034) ng/mL NT-Pro-B Natriuret Pep 4160 pg/mL Total Protein (6.3-8.2) g/dL Albumin (3.5-5.0) g/dL Critical Care Time Critical Care Time: Yes Total Critical Care Time: 33 Disposition Clinical Impression: Hypertensive emergency Disposition: ADMITTED IP TO THIS HOSP Condition: Critical Referrals: Surinder Rodríguez MD [Primary Care Provider] - 1-2 days
[2021-11-26 16:13] LABS: ALT 15 U/L (4-34); AST 29 U/L (14-36); African American GFR (CKD) >90 (>60 ml/min/1.73 sqM); Albumin 3.8 g/dL (3.5-5.0); Alkaline Phosphatase 116 U/L (38-126); Anion Gap 16 mmol/L; Blood Urea Nitrogen 7 mg/dL (7-17); Calcium 8.9 mg/dL (8.4-10.2); Carbon Dioxide 16 mmol/L (22-30); Chloride 105 mmol/L (98-107); Glucose 271 mg/dL (74-99); Magnesium 2.1 mg/dL (1.6-2.3); Non-African American GFR(CKD) 82 (>60 ml/min/1.73 sqM); Potassium 4.5 mmol/L (3.5-5.1); Sodium 137 mmol/L (137-145); Total Bilirubin 0.5 mg/dL (0.2-1.3)
[2021-11-26 16:13] LABS: INR 0.9 (<1.2); Partial Thromboplastin Time 22.7 sec (22.0-30.0); Prothrombin Time 10.2 sec (9.0-12.0)
[2021-11-26 16:18] LABS: Anisocytosis Slight; HCT 30.7 % (34.0-46.0); HGB 8.3 gm/dL (11.4-16.0); Hypochromasia Marked; MCH 22.3 pg (25.0-35.0); MCV 82.7 fL (80.0-100.0); Mean Platelet Volume 7.9; Platelet Count 704 k/uL (150-450); Poikilocytosis Slight; RBC 3.71 m/uL (3.80-5.40); RDW 17.2 % (11.5-15.5); WBC 21.4 k/uL (3.8-10.6)
--- NOTE | 2021-11-26 16:31 | XR ---
EXAMINATION TYPE: XR chest 1V portable DATE OF EXAM: 11/26/2021 Comparison: 10/15/2021 Clinical History: 71 year-old female shortness of breath, low oxygen saturation, NIDIA Findings: Heart margin is difficult to visualize. Diffuse interstitial densities and mid and lower lung airspac e disease. Suspect small effusions. Median sternotomy wires are post-CABG clips. Impression: Correlate for development of bilateral pulmonary edema with small effusions.
[2021-11-26 16:39] LABS: Eosinophils # (M) 1.07 k/uL (0-0.7); Lymphocytes # (M) 12.41 k/uL (1.0-4.8); Monocytes # (M) 1.28 k/uL (0-1.0); Neutrophils # (M) 6.63 k/uL (1.3-7.7); Neutrophils % (M) 31 %; Nucleated Red Blood Cells 0 /100 WBC (0-0); Ovalocytes Present; Poikilocytosis (M) Present; Polychromasia Present; Total Cells Counted 100
[2021-11-26] MEDS ORDERED: ASPIRIN 325 MG TAB PO STA (17:20)
[2021-11-26 18:15] LABS: Appearance,Urine Clear (Clear); Bacteria,Urine Rare /hpf; Bilirubin,Urine Negative (Negative); Blood,Urine Negative (Negative); Color,Urine Light Yellow; Glucose,Urine (UA) Trace (Negative); Ketones,Urine Negative (Negative); Leukocyte Esterase,Urine Negative (Negative); Mucus,Urine Rare /hpf; Nitrite,Urine Negative (Negative); Protein,Urine 1+ (Negative); RBC,Urine 2 /hpf (0-5); Specific Gravity,Urine 1.007 (1.001-1.035); Urobilinogen,Urine <2.0 mg/dL (<2.0); WBC,Urine 3 /hpf (0-5)
[2021-11-26 18:28] LABS: Glucose,Whole Blood 202 mg/dL (75-99)
[2021-11-26] MEDS: LEVOFLOXACIN 500MG-D5W PMX 500 MG in DEXTROSE/WATER 1 100ML.BAG IVPB SCH (20:51)
[2021-11-26 21:29] LABS: Glucose,Whole Blood 149 mg/dL (75-99)
[2021-11-27] MEDS: FUROSEMIDE 10 MG/ML 4 ML VIAL IV SCH ×2 (05:02→16:45)
--- NOTE | 2021-11-27 08:43 | XR ---
EXAMINATION TYPE: XR chest 1V portable DATE OF EXAM: 11/27/2021 CLINICAL HISTORY: Difficulty breathing progress study. TECHNIQUE: Single AP portable upright view of the chest is obtained. COMPARISON: Chest x-ray from one day earlier. FINDINGS: Overlying sternal wires and mediastinal clips along with left atrial appendage clip are re demonstrated. Persistent cardiomegaly with markedly improved increased bilateral opacities. Persisten t small left greater than right pleural effusions. Osseous structures are intact. IMPRESSION: Markedly improved central alveolar and interstitial edema. Findings consistent with resol ving CHF exacerbation. Correlate clinically.
[2021-11-27 09:11] VITALS: BMI 36.6
[2021-11-27 09:16] LABS: Anisocytosis Slight; HCT 26.1 % (34.0-46.0); HGB 7.2 gm/dL (11.4-16.0); Hypochromasia Marked; MCH 21.5 pg (25.0-35.0); MCHC 27.6 g/dL (31.0-37.0); MCV 77.9 fL (80.0-100.0); Mean Platelet Volume 7.7; Microcytosis Slight; Platelet Count 488 k/uL (150-450); Poikilocytosis Moderate; RBC 3.35 m/uL (3.80-5.40); RDW 17.4 % (11.5-15.5); WBC 7.9 k/uL (3.8-10.6)
[2021-11-27 09:20] LABS: ALT 20 U/L (4-34); AST 27 U/L (14-36); African American GFR (CKD) >90 (>60 ml/min/1.73 sqM); Albumin 3.6 g/dL (3.5-5.0); Alkaline Phosphatase 113 U/L (38-126); Anion Gap 7 mmol/L; Blood Urea Nitrogen 10 mg/dL (7-17); Calcium 8.5 mg/dL (8.4-10.2); Carbon Dioxide 27 mmol/L (22-30); Chloride 101 mmol/L (98-107); Glucose 252 mg/dL (74-99); Non-African American GFR(CKD) 88 (>60 ml/min/1.73 sqM); Potassium 3.8 mmol/L (3.5-5.1); Sodium 135 mmol/L (137-145); Total Bilirubin 0.4 mg/dL (0.2-1.3)
--- NOTE | 2021-11-27 09:32 | P.CRDCN ---
History of Present Illness Consult date: 11/27/21 History of present illness: The patient is a 71-year-old male who presented with an acute dyspnea without any chest discomfort. She was noted to be hypertensive with evidence of CHF. The patient presented to the hospital in September 2021 with an acute episode of chest discomfort and troponin elevation, was found to have non-STEMI in low and left bundle branch block. She had evidence of severe cardiomyopathy. She underwent cardiac catheterization that showed severe coronary disease with distal left main ostial LAD, circumflex and right PDA disease. She underwent CABG SIMPSON to the LAD and radial as a T graft to the first OM. She denies any chest discomfort she denies any dizziness or palpitations. She is feeling better this morning but continues to be dyspneic. She has diuresed. According to her she has been compliant with her medications as well as her low salt intake. She has peripheral edema but no PND or orthopnea. She denies dizziness or palpitations. She stopped smoking 20 years ago, she has a family history of premature coronary artery disease. She has a history of diabetes, hypertension and hyperlipidemia. Her EKG showed sinus tachycardia with nonspecific ST-T wave changes, her hemoglobin is 7.2 with a BUN and creatinine of 10. and 0.69. Her troponin is 0.039, NT proBNP 4160, lactic acid 9.1 down to 1.6 today. Chest x- ray consistent with pulmonary edema . REVIEW OF SYSTEMS: CONSTITUTIONAL: Reports normal sleep, Denies weight loss. CARDIOVASCULAR: Denies any chest discomfort, dizziness or palpitation, she has mild edema. RESPIRATORY:[ Has acute dyspnea with physical activity, no recent wheezing, cough..] GASTROINTESTINAL: Denies change in appetite, denies abdominal pain, or bleeding. GENITOURINARY: Denies hematuria, denies infections. MUSKULOSKELETAL: Denies pain, denies swelling. INTEGUMENTARY: Denies rash, denies eczema. NEUROLOGICAL: Denies history of seizure or stroke. 71-year-old female alert and oriented mildly dyspneic, blood pressure 130/80 with a heart rate in the 120s, sinus Head: Normocephalic. Eyes: Sclerae nonicteric. Neck: Good carotid upstroke, no bruit, no jugular venous distention. Lungs: Bilateral crackles. Heart: Tachycardiac, Regular rhythm, S1-S2, no S3, no rub. Systolic murmur at the base Abdomen: Soft nontender, positive bowel sounds no organomegaly. Extremities: 1+ edema, intact distal pulses. Impression: 1. Acute pulmonary edema, could be related to acute hypertension, no evidence to suggest acute ischemia. 2. [ History of severe ischemic cardiomyopathy] 3. [ Status post CABG] 4. [ History of hypertension] 5. [ History of diabetes Plan: 1. Continue IV diuretics 2. Restart beta marcos and losartan 3. Follow renal functions 4. [ Obtain an echocardiogram with Doppler] 5. [ Depending on her progress further recommendations will be made. 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 Poly substance abuse 07/19/21 admitted for Acute delirium History of Any Multi-Drug Resistant Organisms: None Reported Past Surgical History: Cholecystectomy, Hernia Repair, Orthopedic Surgery, Tonsillectomy, Tubal Ligation Additional Past Surgical History / Comment(s): LEFT KNEE ARTHROSCOPY, BMT AND MYRINGOPLASTY, umbilical hernia repair, CABG 2020 Past Anesthesia/Blood Transfusion Reactions: No Reported Reaction Additional Past Anesthesia/Blood Transfusion Reaction / Comment(s): STATES AFTER LAST EAR SX (11/2013) HAD SORE MUSCLES AND WAS WEAK FOR 3-4 DAYS Past Psychological History: Unable to Obtain Smoking Status: Former smoker Past Alcohol Use History: None Reported Additional Past Alcohol Use History / Comment(s): SMOKED 1PPD , SMOKED 10 YEARS . QUIT SMOKING 20 YRS AGO OR MORE. Past Drug Use History: Marijuana, Methamphetamine Additional Drug Use History / Comment(s): MEDICAL CARD. Patient admitted 07/16/21 positive for methamphetamines; amphetamines; benzos; opiates; and marijuana - Past Family History Sister(s) Family Medical History: Cancer Brother(s) Family Medical History: Cancer Additional Family Medical History / Comment(s): brother had heart valve replacement Mother Family Medical History: Chest Pain / Angina, Diabetes Mellitus, Hypertension Father History Unknown: Yes Medications and Allergies Home Medications Medication Instructions Recorded Confirmed Type Ibuprofen [Motrin] 800 mg PO AC-TID PRN 06/02/14 11/26/21 History metFORMIN HCL [Glucophage] 1,000 mg PO AC-BID 06/02/14 11/26/21 History traMADol HCl [Ultram] 100 mg PO BID 11/04/15 11/26/21 History Baclofen 10 mg PO TID PRN 09/14/16 11/26/21 History sitaGLIPtin [Januvia] 100 mg PO DAILY 03/04/19 11/26/21 History rOPINIRole HCL [Requip] 2 mg PO HS 07/21/20 11/26/21 History Acetaminophen Tab [Tylenol] 650 mg PO Q6HR PRN tab 10/15/21 11/26/21 Rx Aspirin 325 mg PO DAILY #30 tab 10/15/21 11/26/21 Rx Atorvastatin [Lipitor] 40 mg PO DAILY #30 tab 10/15/21 11/26/21 Rx Clopidogrel [Plavix] 75 mg PO DAILY #30 tab 10/15/21 11/26/21 Rx Diltiazem Cd [Cardizem CD] 120 mg PO DAILY #30 capsule 10/15/21 11/26/21 Rx Metoprolol Tartrate [Lopressor] 50 mg PO BID #60 tab 10/15/21 11/26/21 Rx Pantoprazole [Protonix] 40 mg PO AC-BRKFST #30 tab 10/15/21 11/26/21 Rx Losartan [Cozaar] 25 mg PO DAILY 11/26/21 11/26/21 History Allergies Allergy/AdvReac Type Severity Reaction Status Date / Time cephalexin Allergy Anaphylaxis Verified 10/11/21 06:12 cephalexin monohydrate Allergy Anaphylaxis Verified 10/11/21 06:12 [From Keflex] Sulfa (Sulfonamide Allergy Rash/Hives Verified 10/11/21 06:12 Antibiotics) Physical Exam Vitals: Vital Signs Temp Pulse Pulse Resp BP BP Pulse Ox 11/27/21 09:00 126 H 22 130/80 97 11/27/21 08:00 97.4 F L 133 H 19 132/91 98 11/27/21 07:00 124 H 21 142/90 99 11/27/21 06:00 118 H 18 150/93 99 11/27/21 05:00 122 H 16 154/103 97 11/27/21 04:00 98.2 F 121 H 22 153/84 99 11/27/21 03:00 112 H 18 134/98 100 11/27/21 02:00 114 H 22 156/104 100 11/27/21 01:00 120 H 19 145/101 100 11/27/21 00:00 98.1 F 111 H 16 139/95 100 11/26/21 23:10 109 H 16 139/95 100 11/26/21 23:00 106 H 16 141/97 100 11/26/21 22:00 116 H 17 140/100 100 11/26/21 21:00 113 H 17 142/101 100 11/26/21 20:00 98.0 F 122 H 17 138/101 99 11/26/21 19:00 112 H 15 144/99 100 11/26/21 18:50 117 H 16 144/99 100 11/26/21 18:40 125 H 21 141/107 100 11/26/21 18:39 124 H 24 11/26/21 18:30 97.5 F L 161/108 98 11/26/21 18:26 99 11/26/21 18:06 97.9 F 124 H 20 141/101 100 11/26/21 17:47 121 H 22 135/88 100 11/26/21 17:41 98.0 F 20 134/99 11/26/21 17:16 129 H 20 94/73 100 11/26/21 17:13 131 H 20 98/77 100 11/26/21 17:06 130 H 24 112/82 100 11/26/21 17:00 130 H 24 127/84 100 11/26/21 16:35 133 H 26 H 126/102 100 11/26/21 16:30 140 H 25 H 148/108 99 11/26/21 16:26 144 H 27 H 121/99 97 11/26/21 16:21 151 H 29 H 157/119 100 11/26/21 16:15 152 H 30 H 164/108 97 11/26/21 16:10 32 H 11/26/21 16:03 158 H 38 H 184/120 99 11/26/21 15:50 97.8 F 152 H 46 H 203/122 Intake and Output 02/04/22 02/05/22 02/05/22 22:59 06:59 14:59 Intake Total 14.35 100 Output Total 1290 1000 670 Balance -2744.38 -223 -132 Intake: Intake, IV Titration 14.35 100 Amount Levofloxacin 500Mg-D5w 100 Pmx 500 mg In Dextrose/ Water 1 100ml.bag @ 100 mls/hr IVPB Q24H [facility] Rx#: [id number] Nitroglycerin-D5w Pmx 50 14.35 mg In Dextrose/Water 1 250ml.bag @ 20 MCG/MIN 6 mls/hr IV .Q24H [facility] Rx#: [id number] Output: Urine 1290 1000 670 Uretheral (Paulino) 30 Other: Voiding Method Indwelling Catheter Indwelling Catheter Weight 96.8 kg 96.8 kg 96.8 kg Results 11/27/21 08:48 11/27/21 08:48 Cardiac Enzymes 11/26/21 11/26/21 11/27/21 Range/Units 15:59 15:59 08:48 AST 29 27 (14-36) U/L Troponin I 0.039 H* (0.000-0.034) ng/mL Coagulation 11/26/21 Range/Units 15:54 PT 10.2 (9.0-12.0) sec APTT 22.7 (22.0-30.0) sec CBC 11/26/21 11/27/21 Range/Units 15:54 08:48 WBC 21.4 H 7.9 (3.8-10.6) k/uL RBC 3.71 L 3.35 L (3.80-5.40) m/uL Hgb 8.3 L 7.2 L (11.4-16.0) gm/dL Hct 30.7 L 26.1 L (34.0-46.0) % Plt Count 704 H 488 H (150-450) k/uL Comprehensive Metabolic Panel 11/26/21 11/27/21 Range/Units 15:59 08:48 Sodium 137 135 L (137-145) mmol/L Potassium 4.5 3.8 (3.5-5.1) mmol/L Chloride 105 101 (98-107) mmol/L Carbon Dioxide 16 L 27 (22-30) mmol/L BUN 7 10 (7-17) mg/dL Creatinine 0.74 0.69 (0.52-1.04) mg/dL Glucose 271 H 252 H (74-99) mg/dL Calcium 8.9 8.5 (8.4-10.2) mg/dL AST 29 27 (14-36) U/L ALT 15 20 (4-34) U/L Alkaline Phosphatase 116 113 (38-126) U/L Total Protein 7.0 7.0 (6.3-8.2) g/dL Albumin 3.8 3.6 (3.5-5.0) g/dL Current Medications Generic Name Dose Route Start Last Admin Trade Name Freq PRN Reason Stop Dose Admin Atorvastatin Calcium 40 mg 11/28/21 09:00 Atorvastatin 40 Mg Tab PO DAILY [facility] Clopidogrel Bisulfate 75 mg 11/28/21 09:00 Clopidogrel 75 Mg Tab PO DAILY [facility] Diltiazem HCl 120 mg 11/28/21 09:00 Diltiazem Cd 120 Mg Cap.Er.24h PO DAILY [facility] Furosemide 40 mg 11/27/21 06:00 11/27/21 05:02 Furosemide 10 Mg/Ml 4 Ml Vial IV 40 mg Q12H [facility] Administration Nitroglycerin/Dextrose 50 mg/ 250 mls @ 6 mls/hr 11/26/21 15:58 11/26/21 17:21 IV Solution IV 11/27/21 15:57 0 mcg/min .Q24H ONE 0 mls/hr Titration Protocol 20 MCG/MIN Levofloxacin 500 mg/ IV 100 mls @ 100 mls/hr 11/26/21 20:00 11/26/21 20:51 Solution IVPB 100 mls/hr Q24H [facility] Administration Losartan Potassium 25 mg 11/27/21 21:00 Losartan 25 Mg Tab PO BID [facility] Metformin HCl 1,000 mg 11/27/21 17:30 Metformin 500 Mg Tab PO AC-BID [facility] Metoprolol Tartrate 50 mg 11/27/21 21:00 Metoprolol Tartrate 50 Mg Tab PO BID [facility] Nitroglycerin 0.4 mg 11/26/21 16:00 11/26/21 16:03 Nitroglycerin Sl Tabs 0.4 Mg Tab SUBLINGUAL 0.4 mg Q5M PRN Administration Chest Pain Non-Formulary Medication 100 mg 11/28/21 09:00 Sitagliptin PO DAILY [facility] Non-Formulary Medication 2 mg 11/27/21 21:00 Ropinirole Hcl [Requip] PO HS [facility] Pantoprazole Sodium 40 mg 11/28/21 07:30 Pantoprazole 40 Mg Tablet PO AC-BRKFST [facility] Intake and Output 11/26/21 11/27/21 11/27/21 22:59 06:59 14:59 Intake Total 14.35 100 Output Total 1290 1000 670 Balance -0620.65 -323 -027 Intake: Intake, IV Titration 14.35 100 Amount Levofloxacin 500Mg-D5w 100 Pmx 500 mg In Dextrose/ Water 1 100ml.bag @ 100 mls/hr IVPB Q24H [facility] Rx#: [id number] Nitroglycerin-D5w Pmx 50 14.35 mg In Dextrose/Water 1 250ml.bag @ 20 MCG/MIN 6 mls/hr IV .Q24H [facility] Rx#: [id number] Output: Urine 1290 1000 670 Uretheral (Paulino) 30 Other: Voiding Method Indwelling Catheter Indwelling Catheter Weight 96.8 kg 96.8 kg 96.8 kg Patient Weight 11/28/21 06:59 Weight 96.8 kg 11/27/21 08:48 11/27/21 08:48
[2021-11-27] MEDS ORDERED: BACLOFEN 10 MG TAB PO PRN (09:53)
--- NOTE | 2021-11-27 09:58 | P.CNPUL ---
History of Present Illness Consult date: 11/27/21 Reason for consult: dyspnea History of present illness: This is a very pleasant 71-year-old female patient was admitted yesterday for acute pulmonary edema and acute hypoxic respiratory failure. The patient came into the ED with acute shortness of breath with significant swelling lower extremities bilaterally consistent with CHF. She was immediately placed on a BiPAP at a pressure 15/5 cm of water with an FiO2 of 40%. She was started diur etics. Note that the patient got admitted to the intensive care unit for further monitoring. She had an acute hypertensive emergency at time of admission with a systolic blood pressure as high as 184/120. She was started on nitroglycerin drip. Blood pressures under much better control for now. Her cardiac rhythm remains sinus. The patient no chest pain. Note that the patient has undergone coronary artery bypass surgery. She was in the hospital back in September 2021 with an acute non-ST segment elevation myocardial infarction. The patient underwent cardiac catheterization the patient was found to have multivessel vessel or a artery disease involving the left main. She has diabetes and hypertension and hyperlipidemia and COPD/asthma. She uses marijuana occasionally and she has also methamphetamine abuse. The patient underwent three-vessel bypass surgery along with ligation of the left atrial appendage. This was an off-pump bypass surgery with SIMPSON to LAD and a T graft left radial graft to obtuse marginal and intermediate coronary artery. Echocardiogram is being done as we aren't during this current evaluation. We have a preliminary result that the patient has an ejection fraction of less than 20%. She is tachycardic and the heart is around 120. Hemoglobin is at 7.2. Note that her lactic acid level dropped from 9.1-1.6. Troponin was at 0.0 36, proBNP level was 4160. Review of Systems Constitutional: Reports fatigue, Reports weakness Eyes: denies as per HPI, denies blurred vision, denies bulging eye, denies decreased vision, denies diplopia, denies discharge, denies dry eye, denies irritation, denies itching, denies pain, denies photophobia, denies loss of peripheral vision, denies loss of vision, denies tunnel vision/blind spots Ears: deny: decreased hearing, ear discharge, earache, tinnitus Ears, nose, mouth and throat: Reports as per HPI Breasts: absent: as per HPI, change in shape, gynecomastia, masses, nipple discharge, pain, skin changes, swelling Cardiovascular: Reports decreased exercise tolerance, Reports dyspnea on exertion, Reports leg edema, Reports shortness of breath Respiratory: Reports dyspnea Genitourinary: Reports as per HPI Menstruation: Reports as per HPI Musculoskeletal: Reports as per HPI Musculoskeletal: bilateral: ankle swelling, absent: ankle pain, ankle stiffness Integumentary: Reports as per HPI Neurological: Reports as per HPI Psychiatric: Reports as per HPI Endocrine: Reports as per HPI Past Medical History Past Medical History: Asthma, Coronary Artery Disease (CAD), Diabetes Mellitus, Fibromyalgia, Hyperlipidemia, Hypertension, Musculoskeletal Disorder, Osteoarthritis (OA), Sleep Apnea/CPAP/BIPAP Additional Past Medical History / Comment(s): TESTED POSITIVE FOR LUPUS (STATES NO SYMPTOMS), DOES NOT USE CPAP, SEASONAL ALLERGIES, STATES 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 Poly substance abuse 07/19/21 admitted for Acute delirium History of Any Multi-Drug Resistant Organisms: None Reported Past Surgical History: Cholecystectomy, Hernia Repair, Orthopedic Surgery, Tonsillectomy, Tubal Ligation Additional Past Surgical History / Comment(s): LEFT KNEE ARTHROSCOPY, BMT AND MYRINGOPLASTY, umbilical hernia repair, CABG 2020 Past Anesthesia/Blood Transfusion Reactions: No Reported Reaction Additional Past Anesthesia/Blood Transfusion Reaction / Comment(s): STATES AFTER LAST EAR SX (11/2013) HAD SORE MUSCLES AND WAS WEAK FOR 3-4 DAYS Past Psychological History: Unable to Obtain Smoking Status: Former smoker Past Alcohol Use History: None Reported Additional Past Alcohol Use History / Comment(s): SMOKED 1PPD , SMOKED 10 YEARS . QUIT SMOKING 20 YRS AGO OR MORE. Past Drug Use History: Marijuana, Methamphetamine Additional Drug Use History / Comment(s): MEDICAL CARD. Patient admitted 07/16/21 positive for methamphetamines; amphetamines; benzos; opiates; and marijuana - Past Family History Sister(s) Family Medical History: Cancer Brother(s) Family Medical History: Cancer Additional Family Medical History / Comment(s): brother had heart valve replacement Mother Family Medical History: Chest Pain / Angina, Diabetes Mellitus, Hypertension Father History Unknown: Yes Medications and Allergies Home Medications Medication Instructions Recorded Confirmed Type Ibuprofen [Motrin] 800 mg PO AC-TID PRN 06/02/14 11/26/21 History metFORMIN HCL [Glucophage] 1,000 mg PO AC-BID 06/02/14 11/26/21 History traMADol HCl [Ultram] 100 mg PO BID 11/04/15 11/26/21 History Baclofen 10 mg PO TID PRN 09/14/16 11/26/21 History sitaGLIPtin [Januvia] 100 mg PO DAILY 03/04/19 11/26/21 History rOPINIRole HCL [Requip] 2 mg PO HS 07/21/20 11/26/21 History Acetaminophen Tab [Tylenol] 650 mg PO Q6HR PRN tab 10/15/21 11/26/21 Rx Aspirin 325 mg PO DAILY #30 tab 10/15/21 11/26/21 Rx Atorvastatin [Lipitor] 40 mg PO DAILY #30 tab 10/15/21 11/26/21 Rx Clopidogrel [Plavix] 75 mg PO DAILY #30 tab 10/15/21 11/26/21 Rx Diltiazem Cd [Cardizem CD] 120 mg PO DAILY #30 capsule 10/15/21 11/26/21 Rx Metoprolol Tartrate [Lopressor] 50 mg PO BID #60 tab 10/15/21 11/26/21 Rx Pantoprazole [Protonix] 40 mg PO AC-BRKFST #30 tab 10/15/21 11/26/21 Rx Losartan [Cozaar] 25 mg PO DAILY 11/26/21 11/26/21 History Allergies Allergy/AdvReac Type Severity Reaction Status Date / Time cephalexin Allergy Anaphylaxis Verified 10/11/21 06:12 cephalexin monohydrate Allergy Anaphylaxis Verified 10/11/21 06:12 [From Keflex] Sulfa (Sulfonamide Allergy Rash/Hives Verified 10/11/21 06:12 Antibiotics) Physical Exam Vitals: Vital Signs Temp Pulse Pulse Resp BP BP Pulse Ox 11/27/21 09:00 126 H 22 130/80 97 11/27/21 08:00 97.4 F L 133 H 19 132/91 98 11/27/21 07:00 124 H 21 142/90 99 11/27/21 06:00 118 H 18 150/93 99 11/27/21 05:00 122 H 16 154/103 97 11/27/21 04:00 98.2 F 121 H 22 153/84 99 11/27/21 03:00 112 H 18 134/98 100 11/27/21 02:00 114 H 22 156/104 100 11/27/21 01:00 120 H 19 145/101 100 11/27/21 00:00 98.1 F 111 H 16 139/95 100 11/26/21 23:10 109 H 16 139/95 100 11/26/21 23:00 106 H 16 141/97 100 11/26/21 22:00 116 H 17 140/100 100 11/26/21 21:00 113 H 17 142/101 100 11/26/21 20:00 98.0 F 122 H 17 138/101 99 11/26/21 19:00 112 H 15 144/99 100 11/26/21 18:50 117 H 16 144/99 100 11/26/21 18:40 125 H 21 141/107 100 11/26/21 18:39 124 H 24 11/26/21 18:30 97.5 F L 161/108 98 11/26/21 18:26 99 11/26/21 18:06 97.9 F 124 H 20 141/101 100 11/26/21 17:47 121 H 22 135/88 100 11/26/21 17:41 98.0 F 20 134/99 11/26/21 17:16 129 H 20 94/73 100 11/26/21 17:13 131 H 20 98/77 100 11/26/21 17:06 130 H 24 112/82 100 11/26/21 17:00 130 H 24 127/84 100 11/26/21 16:35 133 H 26 H 126/102 100 11/26/21 16:30 140 H 25 H 148/108 99 11/26/21 16:26 144 H 27 H 121/99 97 11/26/21 16:21 151 H 29 H 157/119 100 11/26/21 16:15 152 H 30 H 164/108 97 11/26/21 16:10 32 H 11/26/21 16:03 158 H 38 H 184/120 99 11/26/21 15:50 97.8 F 152 H 46 H 203/122 Intake and Output 11/26/21 11/27/21 11/27/21 22:59 06:59 14:59 Intake Total 14.35 100 Output Total 1290 1000 670 Balance -1275.65 -900 -670 Intake: Intake, IV Titration 14.35 100 Amount Levofloxacin 500Mg-D5w 100 Pmx 500 mg In Dextrose/ Water 1 100ml.bag @ 100 mls/hr IVPB Q24H [facility] Rx#: [id number] Nitroglycerin-D5w Pmx 50 14.35 mg In Dextrose/Water 1 250ml.bag @ 20 MCG/MIN 6 mls/hr IV .Q24H [facility] Rx#: [id number] Output: Urine 1290 1000 670 Uretheral (Paulino) 30 Other: Voiding Method Indwelling Catheter Indwelling Catheter Weight 96.8 kg 96.8 kg 96.8 kg GENERAL EXAM: Alert, very pleasant 71-year-old female patient, on room air, comfortable in no apparent distress. HEAD: Normocephalic. EYES: Normal reaction of pupils, equal size. NOSE: Clear with pink turbinates. THROAT: No erythema or exudates. NECK: No masses, patient has JVDs bilaterally CHEST: No chest wall deformity. Surgical wound site over the chest is dry clean and intact LUNGS: Equal air entry with faint crackles in the posterior bases. The patient also has diminished breath on the lung bases bilaterally CVS: Sinus tachycardia,Cardiac exam revealed the PMI to be normally situated and sized. The rhythm was regular and no extrasystoles were noted during several minutes of auscultation. The first and second heart sounds were normal and physiologic splitting of the second heart sound was noted. There were no murmurs, rubs, clicks, or gallops. ABDOMEN: No hepatosplenomegaly, normal bowel sounds, no guarding or rigidity. SPINE: No scoliosis or deformity SKIN: No rashes CENTRAL NERVOUS SYSTEM: No focal deficits, tone is normal in all 4 extremities. EXTREMITIES: There is extensive edema lower extremities bilaterally. No clubbing, no cyanosis. Peripheral pulses are intact. Results - Laboratory Findings CBC and BMP: 11/27/21 08:48 11/27/21 08:48 PT/INR, D-dimer PT 10.2 sec (9.0-12.0) 11/26/21 15:54 INR 0.9 (<1.2) 11/26/21 15:54 Abnormal lab findings: Abnormal Labs 0211/26/21 11/26/21 15:54 15:59 15:59 WBC 21.4 H RBC 3.71 L Hgb 8.3 L Hct 30.7 L MCV MCH 22.3 L MCHC 27.0 L RDW 17.2 H Plt Count 704 H Lymphocytes # (Manual) 12.41 H Monocytes # (Manual) 1.28 H Eosinophils # (Manual) 1.07 H Sodium Carbon Dioxide 16 L Glucose 271 H POC Glucose (mg/dL) Plasma Lactic Acid Angel 9.1 H* Troponin I Urine Protein Urine Glucose (UA) Urine Bacteria Urine Mucus 11/26/21 11/26/21 11/26/21 15:59 17:40 18:26 WBC RBC Hgb Hct MCV MCH MCHC RDW Plt Count Lymphocytes # (Manual) Monocytes # (Manual) Eosinophils # (Manual) Sodium Carbon Dioxide Glucose POC Glucose (mg/dL) 202 H Plasma Lactic Acid Angel Troponin I 0.039 H* Urine Protein 1+ H Urine Glucose (UA) Trace H Urine Bacteria Rare H Urine Mucus Rare H 11/26/21 11/27/21 11/27/21 21:27 08:48 08:48 WBC RBC 3.35 L Hgb 7.2 L Hct 26.1 L MCV 77.9 L MCH 21.5 L MCHC 27.6 L RDW 17.4 H Plt Count 488 H Lymphocytes # (Manual) Monocytes # (Manual) Eosinophils # (Manual) Sodium 135 L Carbon Dioxide Glucose 252 H POC Glucose (mg/dL) 149 H Plasma Lactic Acid Angel Troponin I Urine Protein Urine Glucose (UA) Urine Bacteria Urine Mucus - Diagnostic Findings Chest x-ray: image reviewed Assessment and Plan Plan: 1 acute pulmonary edema secondary to decompensated heart failure. Consider underlying acute systolic decompensated heart failure, the patient had acute pul monary edema and increasing edema lower extremity is bilaterally consistent with decompensated heart failure. 2 acute hypoxic respiratory failure, initially on BiPAP currently on oxygen at 5 L and the patient responded nicely to diuretics 3 acute hypertensive emergency, currently off the nitroglycerin drip 4 sinus tachycardia 5 history of non-ST segment elevation myocardial infarction and the patient has multivessel coronary artery disease involving left main and the patient underwent a off pump triple-vessel bypass surgery 6 history of polysubstance abuse including marijuana and methamphetamine 7 history of positive TANIYA 8 history of obstructive sleep apnea not using CPAP therapy 9 diabetes mellitus 10 hyperlipidemia 11 hypertension 12 iron deficiency anemia and hemoglobin is currently at 7.2 13 lactic acidosis, recovered Plan Echocardiogram to evaluate LV function Started patient on Lasix 40 mg IV push every 12 hours and the patient clinically is improving and the patient is currently on 5 L. Discontinue the BiPAP for now. Restart beta blockers with metoprolol per cardiology recommendation. Continue aspirin and Plavix Check a urine drug screen Check serum iron and iron studies and accordingly treat. The patient may benefit from IV iron as the patient's hemoglobin down to 7.2 Provide the patient incentive spirometer Blood sugar with sliding scale coverage and add the metformin Lactic acidosis recovered
[2021-11-27] MEDS: METOPROLOL TARTRATE 50 MG TAB PO SCH ×2 (10:35→20:04)
[2021-11-27] MEDS: traMADol 50 MG TAB PO SCH ×2 (10:36→20:04)
[2021-11-27] MEDS: BACLOFEN 10 MG TAB PO SCH ×3 (10:36→20:05)
[2021-11-27] MEDS: SPIRONOLACTONE 25 MG TAB PO SCH (10:36)
[2021-11-27 11:25] LABS: Glucose,Whole Blood 139 mg/dL (75-99)
[2021-11-27] MEDS: DILTIAZEM CD 120 MG CAP.ER.24H PO SCH (11:54)
[2021-11-27] MEDS: INSULIN ASPART (NovoLOG) 100 UNIT/ML VIAL SQ SCH ×3 (11:54→20:28)
--- NOTE | 2021-11-27 13:31 | P.HPIM ---
History of Present Illness H&P Date: 11/27/21 Mark Moore, he is a 71-year-old female who presented to [facility] with a chief complaint of worsening shortness of breath She was evaluated in the emergency room vital examination on presentation revealed a temperature of 97.8 pulse 152 respiration 46 blood pressure 203/122 pulse ox 99% on room air Laboratory data revealed a white blood count of 21.4 hemoglobin 8.3 platelet c ount 704 sodium 137 potassium 4.5 chloride 105 CO2 16 BUN 7 creatinine 0.74 COVID-19 PCR was negative urine analysis did not reveal significant evidence of urinary tract infection troponin level was slightly elevated at 0.039. Testing in the emergency room revealed EKG revealed sinus tachycardia with ST and T-wave abnormalities in the lateral leads chest x-ray revealed evidence of pulmonary edema with bilateral small effusions. Patient was admitted to ICU, she was started on BiPAP, and IV Lasix, cardiology consultation were requested Past medical history is significant for history of coronary artery disease with recent coronary artery bypass graft surgery in September 2021, history of hyperte nsion, hyperlipidemia, COPD, and history of marijuana and methamphetamine use. 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 Poly substance abuse 07/19/21 admitted for Acute delirium History of Any Multi-Drug Resistant Organisms: None Reported Past Surgical History: Cholecystectomy, Hernia Repair, Orthopedic Surgery, Tons illectomy, Tubal Ligation Additional Past Surgical History / Comment(s): LEFT KNEE ARTHROSCOPY, BMT AND MYRINGOPLASTY, umbilical hernia repair, CABG 2020 Past Anesthesia/Blood Transfusion Reactions: No Reported Reaction Additional Past Anesthesia/Blood Transfusion Reaction / Comment(s): STATES AFTER LAST EAR SX (11/2013) HAD SORE MUSCLES AND WAS WEAK FOR 3-4 DAYS Past Psychological History: Unable to Obtain Smoking Status: Former smoker Past Alcohol Use History: None Reported Additional Past Alcohol Use History / Comment(s): SMOKED 1PPD , SMOKED 10 YEARS . QUIT SMOKING 20 YRS AGO OR MORE. Past Drug Use History: Marijuana, Methamphetamine Additional Drug Use History / Comment(s): MEDICAL CARD. Patient admitted 07/16/21 positive for methamphetamines; amphetamines; benzos; opiates; and marijuana - Past Family History Sister(s) Family Medical History: Cancer Brother(s) Family Medical History: Cancer Additional Family Medical History / Comment(s): brother had heart valve replacement Mother Family Medical History: Chest Pain / Angina, Diabetes Mellitus, Hypertension Father History Unknown: Yes Medications and Allergies Home Medications Medication Instructions Recorded Confirmed Type Ibuprofen [Motrin] 800 mg PO AC-TID PRN 06/02/14 11/26/21 History metFORMIN HCL [Glucophage] 1,000 mg PO AC-BID 06/02/14 11/26/21 History traMADol HCl [Ultram] 100 mg PO BID 11/04/15 11/26/21 History Baclofen 10 mg PO TID PRN 09/14/16 11/26/21 History sitaGLIPtin [Januvia] 100 mg PO DAILY 03/04/19 11/26/21 History rOPINIRole HCL [Requip] 2 mg PO HS 07/21/20 11/26/21 History Acetaminophen Tab [Tylenol] 650 mg PO Q6HR PRN tab 10/15/21 11/26/21 Rx Aspirin 325 mg PO DAILY #30 tab 10/15/21 11/26/21 Rx Atorvastatin [Lipitor] 40 mg PO DAILY #30 tab 10/15/21 11/26/21 Rx Clopidogrel [Plavix] 75 mg PO DAILY #30 tab 10/15/21 11/26/21 Rx Diltiazem Cd [Cardizem CD] 120 mg PO DAILY #30 capsule 10/15/21 11/26/21 Rx Metoprolol Tartrate [Lopressor] 50 mg PO BID #60 tab 10/15/21 11/26/21 Rx Pantoprazole [Protonix] 40 mg PO AC-BRKFST #30 tab 10/15/21 11/26/21 Rx Losartan [Cozaar] 25 mg PO DAILY 11/26/21 11/26/21 History Allergies Allergy/AdvReac Type Severity Reaction Status Date / Time cephalexin Allergy Anaphylaxis Verified 10/11/21 06:12 cephalexin monohydrate Allergy Anaphylaxis Verified 10/11/21 06:12 [From Keflex] Sulfa (Sulfonamide Allergy Rash/Hives Verified 10/11/21 06:12 Antibiotics) Physical Exam Vitals: Vital Signs Temp Pulse Pulse Resp BP BP Pulse Ox 11/27/21 11:00 124 H 28 H 135/88 99 11/27/21 10:00 120 H 14 135/88 99 11/27/21 09:00 126 H 22 130/80 97 11/27/21 08:00 97.4 F L 133 H 19 132/91 98 11/27/21 07:00 124 H 21 142/90 99 11/27/21 06:00 118 H 18 150/93 99 11/27/21 05:00 122 H 16 154/103 97 11/27/21 04:00 98.2 F 121 H 22 153/84 99 11/27/21 03:00 112 H 18 134/98 100 11/27/21 02:00 114 H 22 156/104 100 11/27/21 01:00 120 H 19 145/101 100 11/27/21 00:00 98.1 F 111 H 16 139/95 100 11/26/21 23:10 109 H 16 139/95 100 11/26/21 23:00 106 H 16 141/97 100 11/26/21 22:00 116 H 17 140/100 100 11/26/21 21:00 113 H 17 142/101 100 11/26/21 20:00 98.0 F 122 H 17 138/101 99 11/26/21 19:00 112 H 15 144/99 100 11/26/21 18:50 117 H 16 144/99 100 11/26/21 18:40 125 H 21 141/107 100 11/26/21 18:39 124 H 24 11/26/21 18:30 97.5 F L 161/108 98 11/26/21 18:26 99 11/26/21 18:06 97.9 F 124 H 20 141/101 100 11/26/21 17:47 121 H 22 135/88 100 11/26/21 17:41 98.0 F 20 134/99 11/26/21 17:16 129 H 20 94/73 100 11/26/21 17:13 131 H 20 98/77 100 11/26/21 17:06 130 H 24 112/82 100 11/26/21 17:00 130 H 24 127/84 100 11/26/21 16:35 133 H 26 H 126/102 100 11/26/21 16:30 140 H 25 H 148/108 99 11/26/21 16:26 144 H 27 H 121/99 97 11/26/21 16:21 151 H 29 H 157/119 100 11/26/21 16:15 152 H 30 H 164/108 97 11/26/21 16:10 32 H 11/26/21 16:03 158 H 38 H 184/120 99 11/26/21 15:50 97.8 F 152 H 46 H 203/122 Intake and Output 11/26/21 11/27/21 11/27/21 22:59 06:59 14:59 Intake Total 14.35 100 Output Total 1290 1000 880 Balance -1275.65 -900 -880 Intake: Intake, IV Titration 14.35 100 Amount Levofloxacin 500Mg-D5w 100 Pmx 500 mg In Dextrose/ Water 1 100ml.bag @ 100 mls/hr IVPB Q24H [facility] Rx#: [id number] Nitroglycerin-D5w Pmx 50 14.35 mg In Dextrose/Water 1 250ml.bag @ 20 MCG/MIN 6 mls/hr IV .Q24H [facility] Rx#: [id number] Output: Urine 1290 1000 880 Uretheral (Paulino) 30 Other: Voiding Method Indwelling Catheter Indwelling Catheter Bedside Commode Weight 96.8 kg 96.8 kg 96.8 kg In general patient is alert and oriented x 3 in no distress HEENT head normocephalic and atraumatic Neck is supple no JVD no goiter no lymphadenopathy no carotid bruit Chest examination is clear to auscultation no crackles no wheezing Cardiac exam reveals regular heart sounds S1 and S2 no gallops no murmurs Abdomen is soft nontender no organomegaly with normal bowel sounds Extremity exam reveals no edema no cyanosis or clubbing Neurological examination reveals no gross focal deficits Results CBC & Chem 7: 11/27/21 08:48 11/27/21 08:48 Labs: Abnormal Lab Results - Last 24 Hours (Table) 11/26/21 11/26/21 11/26/21 Range/Units 15:54 15:59 15:59 WBC 21.4 H (3.8-10.6) k/uL RBC 3.71 L (3.80-5.40) m/uL Hgb 8.3 L (11.4-16.0) gm/dL Hct 30.7 L (34.0-46.0) % MCV (80.0-100.0) fL MCH 22.3 L (25.0-35.0) pg MCHC 27.0 L (31.0-37.0) g/dL RDW 17.2 H (11.5-15.5) % Plt Count 704 H (150-450) k/uL Lymphocytes # (Manual) 12.41 H (1.0-4.8) k/uL Monocytes # (Manual) 1.28 H (0-1.0) k/uL Eosinophils # (Manual) 1.07 H (0-0.7) k/uL Sodium (137-145) mmol/L Carbon Dioxide 16 L (22-30) mmol/L Glucose 271 H (74-99) mg/dL POC Glucose (mg/dL) (75-99) mg/dL Plasma Lactic Acid Angel 9.1 H* (0.7-2.0) mmol/L Troponin I (0.000-0.034) ng/mL Urine Protein (Negative) Urine Glucose (UA) (Negative) Urine Bacteria (None) /hpf Urine Mucus (None) /hpf 11/26/21 11/26/21 11/26/21 Range/Units 15:59 17:40 18:26 WBC (3.8-10.6) k/uL RBC (3.80-5.40) m/uL Hgb (11.4-16.0) gm/dL Hct (34.0-46.0) % MCV (80.0-100.0) fL MCH (25.0-35.0) pg MCHC (31.0-37.0) g/dL RDW (11.5-15.5) % Plt Count (150-450) k/uL Lymphocytes # (Manual) (1.0-4.8) k/uL Monocytes # (Manual) (0-1.0) k/uL Eosinophils # (Manual) (0-0.7) k/uL Sodium (137-145) mmol/L Carbon Dioxide (22-30) mmol/L Glucose (74-99) mg/dL POC Glucose (mg/dL) 202 H (75-99) mg/dL Plasma Lactic Acid Angel (0.7-2.0) mmol/L Troponin I 0.039 H* (0.000-0.034) ng/mL Urine Protein 1+ H (Negative) Urine Glucose (UA) Trace H (Negative) Urine Bacteria Rare H (None) /hpf Urine Mucus Rare H (None) /hpf 11/26/21 11/27/21 11/27/21 Range/Units 21:27 08:48 08:48 WBC (3.8-10.6) k/uL RBC 3.35 L (3.80-5.40) m/uL Hgb 7.2 L (11.4-16.0) gm/dL Hct 26.1 L (34.0-46.0) % MCV 77.9 L (80.0-100.0) fL MCH 21.5 L (25.0-35.0) pg MCHC 27.6 L (31.0-37.0) g/dL RDW 17.4 H (11.5-15.5) % Plt Count 488 H (150-450) k/uL Lymphocytes # (Manual) (1.0-4.8) k/uL Monocytes # (Manual) (0-1.0) k/uL Eosinophils # (Manual) (0-0.7) k/uL Sodium 135 L (137-145) mmol/L Carbon Dioxide (22-30) mmol/L Glucose 252 H (74-99) mg/dL POC Glucose (mg/dL) 149 H (75-99) mg/dL Plasma Lactic Acid Angel (0.7-2.0) mmol/L Troponin I (0.000-0.034) ng/mL Urine Protein (Negative) Urine Glucose (UA) (Negative) Urine Bacteria (None) /hpf Urine Mucus (None) /hpf 11/27/21 Range/Units 11:23 WBC (3.8-10.6) k/uL RBC (3.80-5.40) m/uL Hgb (11.4-16.0) gm/dL Hct (34.0-46.0) % MCV (80.0-100.0) fL MCH (25.0-35.0) pg MCHC (31.0-37.0) g/dL RDW (11.5-15.5) % Plt Count (150-450) k/uL Lymphocytes # (Manual) (1.0-4.8) k/uL Monocytes # (Manual) (0-1.0) k/uL Eosinophils # (Manual) (0-0.7) k/uL Sodium (137-145) mmol/L Carbon Dioxide (22-30) mmol/L Glucose (74-99) mg/dL POC Glucose (mg/dL) 139 H (75-99) mg/dL Plasma Lactic Acid Angel (0.7-2.0) mmol/L Troponin I (0.000-0.034) ng/mL Urine Protein (Negative) Urine Glucose (UA) (Negative) Urine Bacteria (None) /hpf Urine Mucus (None) /hpf Thrombosis Risk Factor Assmnt - Choose All That Apply Any of the Below Risk Factors Present?: Yes Each Factor Represents 1 point: Abnormal pulmonary function (COPD), Heart failure (<1month), Obesity (BMI >25), Swollen legs (current) Other Risk Factors: Yes Each Risk Factor Represents 2 Points: Age 61-74 years Each Risk Factor Represents 3 Points: Positive Lupus Anticoagulant Other congenital or acquired thrombophilia - If yes, enter type in comment: No Thrombosis Risk Factor Assessment Total Risk Factor Score: 9 Thrombosis Risk Factor Assessment Level: High Risk Assessment and Plan Plan: Acute hypoxic respiratory failure, requiring BiPAP on admission Acute systolic and diastolic congestive heart failure with acute pulmonary edema Hypertensive emergency on presentation Evidence of anemia on presentation Sinus tachycardia on presentation Recent myocardial infarction with coronary artery bypass graft surgery in September 2021 Underlying history of diabetes mellitus Underlying history of COPD Underlying history of hypertension Underlying history of hyperlipidemia At this time patient is admitted to intensive care unit Home medications reviewed and reordered Pulmonary and cardiology consultation were requested Patient was started on IV nitroglycerin in ER blood pressure is under good control
--- NOTE | 2021-11-27 14:16 | ECHOF ---
Referral Reason:chf MEASUREMENTS -------- HEIGHT: 162.6 cm WEIGHT: 96.6 kg BP: RVIDd: 2.4 cm (< 3.3) IVSd: 1.4 cm (0.6 - 1.1) LVIDd: 5.0 cm (3.9 - 5.3) LVPWd: 1.7 cm (0.6 - 1.1) IVSs: 1.9 cm LVIDs: 4.5 cm LVPWs: 1.6 cm LAESV Index (A-L): 29.13 ml/m Ao Diam: 3.4 cm (2.0 - 3.7) AV Cusp: 2.0 cm (1.5 - 2.6) LA Diam: 3.3 cm (2.7 - 3.8) MV EXCURSION: 15.249 mm (> 18.000) MV EF SLOPE: 41 mm/s (70 - 150) EPSS: 1.2 cm MV E Joseph: 1.34 m/s MV DecT: 187 ms MV A Joseph: 0.44 m/s MV E/A Ratio: 3.05 AR PHT: 399 ms RAP: 5.00 mmHg RVSP: 17.25 mmHg FINDINGS -------- Sinus rhythm. Resting tachycardia (HR>100bpm). This was a technically adequate study. The left ventricular size is normal. There is moderate concentric left ventricular hypertrophy. O verall left ventricular systolic function is severely impaired with, an EF between 20 - 25 %. Incre ased LAP Grade 3 Diastolic Dysfunction. Mid anterior LV wall motion is hypokinetic. Mid anterose ptal LV wall motion is hypokinetic. Apical anterior LV wall motion is hypokinetic. Apical later al LV wall motion is hypokinetic. Apical septum LV wall motion is hypokinetic. The right ventricle is normal in size. Normal LA size by volume 22+/-6 ml/m2. The right atrial size is normal. There is mild aortic valve sclerosis. There is mild aortic regurgitation. Moderate mitral annular calcification present. Mild mitral regurgitation is present. The tricuspid valve appears structurally normal. Mild tricuspid regurgitation present. Right vent ricular systolic pressure is normal at < 35 mmHg. The pulmonic valve was not well visualized. There is no pulmonic regurgitation present. The aortic root size is normal. IVC Not well visulized. There is no pericardial effusion. CONCLUSIONS -------- 1. There is moderate concentric left ventricular hypertrophy. 2. Overall left ventricular systolic function is severely impaired with, an EF between 20 - 25 %. 3. Increased LAP Grade 3 Diastolic Dysfunction. 4. Mid anterior LV wall motion is hypokinetic. 5. Mid anteroseptal LV wall motion is hypokinetic. 6. Apical anterior LV wall motion is hypokinetic. 7. Apical lateral LV wall motion is hypokinetic. 8. Apical septum LV wall motion is hypokinetic. 9. Normal LA size by volume 22+/-6 ml/m2. 10. There is mild aortic valve sclerosis. 11. There is mild aortic regurgitation. 12. Moderate mitral annular calcification present. 13. Mild mitral regurgitation is present. 14. Mild tricuspid regurgitation present. 15. There is no pericardial effusion. [employer]: Tori Beltre RDCS
[2021-11-27 16:42] LABS: Glucose,Whole Blood 152 mg/dL (75-99)
[2021-11-27] MEDS: metFORMIN 500 MG TAB PO SCH (16:45)
[2021-11-27] MEDS: ACETAMINOPHEN TAB 325 MG TAB PO PRN (19:05)
[2021-11-27 19:56] LABS: Urine Alcohol Negative (Negative)
[2021-11-27 20:02] LABS: Glucose,Whole Blood 121 mg/dL (75-99)
[2021-11-27] MEDS: LOSARTAN 25 MG TAB PO SCH (20:04)
[2021-11-27] MEDS: LEVOFLOXACIN 500MG-D5W PMX 500 MG in DEXTROSE/WATER 1 100ML.BAG IVPB SCH (20:08)
[2021-11-27] MEDS ORDERED: METOPROLOL TARTRATE 50 MG TAB PO SCH (21:00)
[2021-11-27] MEDS ORDERED: traMADol 50 MG TAB PO SCH (21:00)
[2021-11-27 21:17] LABS: Urine Barbiturate Negative (Negative); Urine Cocaine Negative (Negative); Urine Methadone Negative (Negative); Urine Opiates Negative (Negative); Urine Phencyclidine Negative (Negative)
--- NOTE | 2021-11-28 06:20 | XR ---
EXAMINATION TYPE: XR chest 1V portable DATE OF EXAM: 11/28/2021 CLINICAL HISTORY: Difficulty breathing progress study. TECHNIQUE: Single AP portable upright view of the chest is obtained. COMPARISON: Chest x-ray from one day earlier and older studies. FINDINGS: Overlying sternal wires and mediastinal clips along with left atrial appendage clip are al l redemonstrated. Persistent cardiomegaly with bibasilar opacities consistent with infiltrates and/or atelectasis and l ikely small to tiny left greater than right pleural effusions. Osseous structures are intact. IMPRESSION: Cardiomegaly with bibasilar opacities redemonstrated. Suspect bibasilar acute infiltrate and/or atelectasis and small to tiny left greater than right pleural effusions. No significant change from one day earlier.
[2021-11-28 06:31] LABS: Glucose,Whole Blood 136 mg/dL (75-99)
[2021-11-28] MEDS: PANTOPRAZOLE 40 MG TABLET PO SCH (06:35)
[2021-11-28] MEDS: INSULIN ASPART (NovoLOG) 100 UNIT/ML VIAL SQ SCH ×4 (06:35→20:32)
[2021-11-28] MEDS: FUROSEMIDE 10 MG/ML 4 ML VIAL IV SCH ×2 (06:35→17:26)
[2021-11-28] MEDS: metFORMIN 500 MG TAB PO SCH ×2 (06:35→16:35)
[2021-11-28] MEDS: ASPIRIN 81 MG PO SCH (08:55)
[2021-11-28] MEDS: SPIRONOLACTONE 25 MG TAB PO SCH (08:55)
[2021-11-28] MEDS: traMADol 50 MG TAB PO SCH ×2 (08:55→20:31)
[2021-11-28] MEDS: CLOPIDOGREL 75 MG TAB PO SCH (08:56)
[2021-11-28] MEDS: ATORVASTATIN 40 MG TAB PO SCH (08:56)
[2021-11-28] MEDS: LINAGLIPTIN 5 MG TABLET PO SCH (08:56)
[2021-11-28] MEDS: BACLOFEN 10 MG TAB PO SCH ×3 (08:57→21:00)
[2021-11-28] MEDS: METOPROLOL TARTRATE 50 MG TAB PO SCH ×2 (08:57→20:32)
[2021-11-28] MEDS: DILTIAZEM CD 120 MG CAP.ER.24H PO SCH (08:57)
[2021-11-28] MEDS ORDERED: DILTIAZEM CD 120 MG CAP.ER.24H PO SCH (09:00)
[2021-11-28 09:25] LABS: Anisocytosis Slight; Basophils # (A) 0.1 k/uL (0-0.2); Basophils % (A) 1 %; Eosinophils # (A) 0.2 k/uL (0-0.7); Eosinophils % (A) 2 %; HCT 28.3 % (34.0-46.0); HGB 7.9 gm/dL (11.4-16.0); Hypochromasia Marked; Lymphocytes % (A) 27 %; MCH 21.2 pg (25.0-35.0); MCHC 27.8 g/dL (31.0-37.0); MCV 76.4 fL (80.0-100.0); Mean Platelet Volume 7.4; Microcytosis Slight; Monocytes # (A) 0.5 k/uL (0-1.0); Monocytes % (A) 6 %; Neutrophils # (A) 4.7 k/uL (1.3-7.7); Neutrophils % (A) 62 %; Platelet Count 507 k/uL (150-450); Poikilocytosis Moderate; RBC 3.71 m/uL (3.80-5.40); RDW 17.4 % (11.5-15.5); WBC 7.6 k/uL (3.8-10.6)
[2021-11-28 09:38] LABS: Albumin 3.6 g/dL (3.5-5.0); Calcium 8.8 mg/dL (8.4-10.2); Potassium 3.8 mmol/L (3.5-5.1); Total Bilirubin 0.4 mg/dL (0.2-1.3); Total Protein 6.9 g/dL (6.3-8.2)
[2021-11-28] MEDS ORDERED: Potassium Replacement Protocol 1 EACH MISC MISCELLANE PRN (09:39)
--- NOTE | 2021-11-28 09:45 | P.PN ---
Subjective Progress Note Date: 11/28/21 PROGRESS NOTE The patient is a 71-year-old female with a known history of severe ischemic cardiomyopathy status post CABG in September 2021, history of hypertension, diabetes and hyperlipidemia who presented with an acute dyspnea and CHF. She was tachycardic and hypertensive on presentation. She is feeling better today. The compliance with her medication is unclear. She denies any chest discomfort, dizziness or palpitations. She continues to be in sinus mechanism. Her echocardiogram showed a severely impaired systolic function. Hemodynamically she is stable. Her urinary output is good. She continues to be on Lipitor 40 mg daily, aspirin once a day, Plavix 75 mg daily, diltiazem 120 daily, Lasix 40 mg IV every 12 hours, losartan 25 mg twice a day, metoprolol tartrate 50 mg twice a day, Aldactone 5 mg daily. PHYSICAL EXAMINATION: Blood pressure 109/84 heart rate 90 LUNGS: [Clear to auscultation with few crackles at the bases] HEART: [Regular rate and rhythm, S1, S2. No S3. systolic murmur ejection type at the base] ABDOMEN: [Soft, nontender, no organomegaly] EXTREMETIES: [1-2+ edema] LAB: Hemoglobin 7.9, BUN and creatinine 15 and 0.77. Potassium 3.8 IMPRESSION: 1. Acute CHF with severe systolic dysfunction, could be exacerbated by noncompliance 2. Known history of severe ischemic cardiomyopathy status post CABG in September 2021 3. Hypertension 4. Anemia PLAN: 1. Continue IV diuresis for 24 hours 2. Increase physical activity 3. Follow hemoglobin and renal functions 4. May require evaluation for the microcytic anemia 5. Depending on her progress further recommendations will be made. Objective - Vital Signs Vital signs: Vital Signs Temp 98.4 F 11/28/21 08:00 Pulse 96 11/28/21 09:00 Resp 17 11/28/21 09:00 BP 109/84 11/28/21 09:00 Pulse Ox 92 L 11/28/21 09:00 Intake & Output 11/27/21 11/28/21 11/28/21 18:59 06:59 18:59 Intake Total 100 Output Total 1780 510 500 Balance -1780 410 -500 Weight 96.8 kg 93.4 kg Intake: Intake, IV Titration 100 Amount Levofloxacin 500Mg-D5w 100 Pmx 500 mg In Dextrose/ Water 1 100ml.bag @ 100 mls/hr IVPB Q24H [facility] Rx#: [id number] Output: Urine 1780 510 500 Other: Voiding Method Bedside Commode Bedside Commode - Labs CBC & Chem 7: 11/28/21 09:11 11/28/21 09:11 Labs: Abnormal Lab Results - Last 24 Hours (Table) 11/27/21 11/27/21 11/27/21 Range/Units 08:48 11:11 11:23 RBC (3.80-5.40) m/uL Hgb (11.4-16.0) gm/dL Hct (34.0-46.0) % MCV (80.0-100.0) fL MCH (25.0-35.0) pg MCHC (31.0-37.0) g/dL RDW (11.5-15.5) % Plt Count (150-450) k/uL Sodium (137-145) mmol/L Chloride (98-107) mmol/L Carbon Dioxide (22-30) mmol/L Glucose (74-99) mg/dL POC Glucose (mg/dL) 139 H (75-99) mg/dL Iron 16 L (50-170) ug/dL U Cannabinoids Screen Positive A (Negative) 11/27/21 11/27/21 11/28/21 Range/Units 16:40 19:59 06:29 RBC (3.80-5.40) m/uL Hgb (11.4-16.0) gm/dL Hct (34.0-46.0) % MCV (80.0-100.0) fL MCH (25.0-35.0) pg MCHC (31.0-37.0) g/dL RDW (11.5-15.5) % Plt Count (150-450) k/uL Sodium (137-145) mmol/L Chloride (98-107) mmol/L Carbon Dioxide (22-30) mmol/L Glucose (74-99) mg/dL POC Glucose (mg/dL) 152 H 121 H 136 H (75-99) mg/dL Iron (50-170) ug/dL U Cannabinoids Screen (Negative) 11/28/21 11/28/21 Range/Units 09:11 09:11 RBC 3.71 L (3.80-5.40) m/uL Hgb 7.9 L (11.4-16.0) gm/dL Hct 28.3 L (34.0-46.0) % MCV 76.4 L (80.0-100.0) fL MCH 21.2 L (25.0-35.0) pg MCHC 27.8 L (31.0-37.0) g/dL RDW 17.4 H (11.5-15.5) % Plt Count 507 H (150-450) k/uL Sodium 135 L (137-145) mmol/L Chloride 97 L (98-107) mmol/L Carbon Dioxide 32 H (22-30) mmol/L Glucose 126 H (74-99) mg/dL POC Glucose (mg/dL) (75-99) mg/dL Iron (50-170) ug/dL U Cannabinoids Screen (Negative) Microbiology - Last 24 Hours (Table) 11/26/21 17:55 Blood Culture - Preliminary Blood No Growth after 24 hours 11/26/21 17:40 Blood Culture - Preliminary Blood No Growth after 24 hours
--- NOTE | 2021-11-28 09:49 | P.PN ---
Subjective Progress Note Date: 11/28/21 Mark Moore, he is a 71-year-old female who presented to [facility] with a chief complaint of worsening shortness of breath She was evaluated in the emergency room vital examination on presentation revealed a temperature of 97.8 pulse 152 respiration 46 blood pressure 203/122 pulse ox 99% on room air Laboratory data revealed a white blood count of 21.4 hemoglobin 8.3 platelet count 704 sodium 137 potassium 4.5 chloride 105 CO2 16 BUN 7 creatinine 0.74 COVID-19 PCR was negative urine analysis did not reveal significant evidence of urinary tract infection troponin level was slightly elevated at 0.039. Testing in the emergency room revealed EKG revealed sinus tachycardia with ST an d T-wave abnormalities in the lateral leads chest x-ray revealed evidence of pulmonary edema with bilateral small effusions. Patient was admitted to ICU, she was started on BiPAP, and IV Lasix, cardiology consultation were requested Past medical history is significant for history of coronary artery disease with recent coronary artery bypass graft surgery in September 2021, history of hypertension, hyperlipidemia, COPD, and history of marijuana and methamphetamine use. On 11/28/2021 patient is alert and oriented 3. Patient has been weaned off oxygen no longer requiring BiPAP. Patient remains on IV Lasix -2 L fluid balance. Patient reports improvement with edema and shortness of breath. At this time patient denies chest pain. Patient denies nausea vomiting or diarrhea. Patient denies any urinary burning or frequency. Hemoglobin 7.9. Repeat labs ordered for a.m. patient will likely be moved out of the intensive care unit to stepdown unit Objective - Vital Signs Vital signs: Vital Signs Temp 98.4 F 11/28/21 08:00 Pulse 96 11/28/21 09:00 Resp 17 11/28/21 09:00 BP 109/84 11/28/21 09:00 Pulse Ox 92 L 11/28/21 09:00 Intake & Output 11/27/21 11/28/21 11/28/21 18:59 06:59 18:59 Intake Total 100 Output Total 1780 510 500 Balance -4760 410 -827 Weight 96.8 kg 93.4 kg Intake: Intake, IV Titration 100 Amount Levofloxacin 500Mg-D5w 100 Pmx 500 mg In Dextrose/ Water 1 100ml.bag @ 100 mls/hr IVPB Q24H [facility] Rx#: [id number] Output: Urine 1780 510 500 Other: Voiding Method Bedside Commode Bedside Commode Bedside Commode - Exam In general patient is alert and oriented x 3 in no distress HEENT head normocephalic and atraumatic Neck is supple no JVD no goiter no lymphadenopathy no carotid bruit Chest examination is clear to auscultation no crackles no wheezing Cardiac exam reveals regular heart sounds S1 and S2 no gallops no murmurs Abdomen is soft nontender no organomegaly with normal bowel sounds Extremity exam reveals +1 lower extremity edema Neurological examination reveals no gross focal deficits - Labs CBC & Chem 7: 11/28/21 09:11 11/28/21 09:11 Labs: Abnormal Lab Results - Last 24 Hours (Table) 11/27/21 11/27/21 11/27/21 Range/Units 08:48 11:11 11:23 RBC (3.80-5.40) m/uL Hgb (11.4-16.0) gm/dL Hct (34.0-46.0) % MCV (80.0-100.0) fL MCH (25.0-35.0) pg MCHC (31.0-37.0) g/dL RDW (11.5-15.5) % Plt Count (150-450) k/uL Sodium (137-145) mmol/L Chloride (98-107) mmol/L Carbon Dioxide (22-30) mmol/L Glucose (74-99) mg/dL POC Glucose (mg/dL) 139 H (75-99) mg/dL Iron 16 L (50-170) ug/dL U Cannabinoids Screen Positive A (Negative) 11/27/21 11/27/21 11/28/21 Range/Units 16:40 19:59 06:29 RBC (3.80-5.40) m/uL Hgb (11.4-16.0) gm/dL Hct (34.0-46.0) % MCV (80.0-100.0) fL MCH (25.0-35.0) pg MCHC (31.0-37.0) g/dL RDW (11.5-15.5) % Plt Count (150-450) k/uL Sodium (137-145) mmol/L Chloride (98-107) mmol/L Carbon Dioxide (22-30) mmol/L Glucose (74-99) mg/dL POC Glucose (mg/dL) 152 H 121 H 136 H (75-99) mg/dL Iron (50-170) ug/dL U Cannabinoids Screen (Negative) 11/28/21 11/28/21 Range/Units 09:11 09:11 RBC 3.71 L (3.80-5.40) m/uL Hgb 7.9 L (11.4-16.0) gm/dL Hct 28.3 L (34.0-46.0) % MCV 76.4 L (80.0-100.0) fL MCH 21.2 L (25.0-35.0) pg MCHC 27.8 L (31.0-37.0) g/dL RDW 17.4 H (11.5-15.5) % Plt Count 507 H (150-450) k/uL Sodium 135 L (137-145) mmol/L Chloride 97 L (98-107) mmol/L Carbon Dioxide 32 H (22-30) mmol/L Glucose 126 H (74-99) mg/dL POC Glucose (mg/dL) (75-99) mg/dL Iron (50-170) ug/dL U Cannabinoids Screen (Negative) Microbiology - Last 24 Hours (Table) 11/26/21 17:55 Blood Culture - Preliminary Blood No Growth after 24 hours 11/26/21 17:40 Blood Culture - Preliminary Blood No Growth after 24 hours Assessment and Plan Plan: Acute hypoxic respiratory failure, requiring BiPAP on admission Acute systolic and diastolic congestive heart failure with acute pulmonary edema Hypertensive emergency on presentation Evidence of anemia on presentation Sinus tachycardia on presentation Recent myocardial infarction with coronary artery bypass graft surgery in September 2021 Underlying history of diabetes mellitus Underlying history of COPD Underlying history of hypertension Underlying history of hyperlipidemia Lactic acidosis recovered Patient maintained on IV Lasix Pulmonary and cardiology services are following Repeat labs ordered for a.m. Patient remains in the ICU likely will transfer out today 11/28/2021
[2021-11-28] MEDS ORDERED: POTASSIUM CHLORIDE ER 20 MEQ TAB.ER PO SCH (10:00)
[2021-11-28] MEDS: LOSARTAN 25 MG TAB PO SCH ×2 (10:22→20:32)
[2021-11-28 11:41] LABS: Glucose,Whole Blood 102 mg/dL (75-99)
--- NOTE | 2021-11-28 11:58 | P.PN ---
Subjective Progress Note Date: 11/28/21 On today's evaluation of 11/28/2021, seeing the patient for a follow-up. The patient is a case of cardiomyopathy and her echocardiogram showed impaired LV function with an ejection fraction of around 20%. The patient presented with us to us with volume overload, increased lower extremity edema, pulmonary edema and hypoxic respiratory failure. The patient is doing much better for now. Repeat chest x-ray from today shows cardiomegaly. There is a sternotomy changes over the anterior chest. There is still bilateral pleural effusion. There is improvement in aeration and interstitial infiltrates improved considerably compared to few days back. Overall fluid balance has been -2.1 L over the past 24 hours and the patient is headed for another 3 L fluid balance negative over the next 24 hours. As such, the patient is diuresing well. Her weight is down to 93.4 kg. She remains on Lasix 40 mg IV every 12 hours. The patient was also started on Aldactone 25 mg by mouth daily. The patient remains on metoprolol 50 mg by mouth twice a day. Her blood pressures under good control. She is still on a combination of aspirin and Plavix. She was also started on Cardizem 120 mg by mouth daily for some underlying sinus tachycardia. The patient was taking Cardizem also on outpatient basis. Cardiology is on the case. Echocardiogram was noted. As stated, there is significant cardiomyopathy with an ejection fraction of 20-25%. There is segmental wall motion abnormalities. No other significant pericardial effusion or valvular abnormalities. The patient has a hemoglobin of 7.9. Her serum iron came back also low at 16. The white cell count 7.6. Urine is a 50 with a creatinine of 0.7. ProBNP level is 4910. Objective - Vital Signs Vital signs: Vital Signs Temp 98.4 F 11/28/21 08:00 Pulse 96 11/28/21 09:00 Resp 17 11/28/21 09:00 BP 109/84 11/28/21 09:00 Pulse Ox 92 L 11/28/21 09:00 Intake & Output 11/27/21 11/28/21 11/28/21 18:59 06:59 18:59 Intake Total 100 Output Total 1780 510 900 Balance -836 410 900 Weight 96.8 kg 93.4 kg Intake: Intake, IV Titration 100 Amount Levofloxacin 500Mg-D5w 100 Pmx 500 mg In Dextrose/ Water 1 100ml.bag @ 100 mls/hr IVPB Q24H [facility] Rx#: [id number] Output: Urine 1780 510 900 Other: Voiding Method Bedside Commode Bedside Commode Bedside Commode - Exam GENERAL EXAM: Alert, very pleasant 71-year-old female patient, on room air, comfortable in no apparent distress. HEAD: Normocephalic. EYES: Normal reaction of pupils, equal size. NOSE: Clear with pink turbinates. THROAT: No erythema or exudates. NECK: No masses, patient has JVDs bilaterally CHEST: No chest wall deformity. Surgical wound site over the chest is dry clean and intact LUNGS: Equal air entry with faint crackles in the posterior bases. The patient also has diminished breath on the lung bases bilaterally CVS: Sinus tachycardia,Cardiac exam revealed the PMI to be normally situated and sized. The rhythm was regular and no extrasystoles were noted during several minutes of auscultation. The first and second heart sounds were normal and physiologic splitting of the second heart sound was noted. There were no murmurs, rubs, clicks, or gallops. ABDOMEN: No hepatosplenomegaly, normal bowel sounds, no guarding or rigidity. SPINE: No scoliosis or deformity SKIN: No rashes CENTRAL NERVOUS SYSTEM: No focal deficits, tone is normal in all 4 extremities. EXTREMITIES: There is extensive edema lower extremities bilaterally. No clubbing, no cyanosis. Peripheral pulses are intact. - Labs CBC & Chem 7: 11/28/21 09:11 11/28/21 09:11 Labs: Abnormal Lab Results - Last 24 Hours (Table) 11/27/21 11/27/21 11/27/21 Range/Units 08:48 11:11 16:40 RBC (3.80-5.40) m/uL Hgb (11.4-16.0) gm/dL Hct (34.0-46.0) % MCV (80.0-100.0) fL MCH (25.0-35.0) pg MCHC (31.0-37.0) g/dL RDW (11.5-15.5) % Plt Count (150-450) k/uL Sodium (137-145) mmol/L Chloride (98-107) mmol/L Carbon Dioxide (22-30) mmol/L Glucose (74-99) mg/dL POC Glucose (mg/dL) 152 H (75-99) mg/dL Iron 16 L (50-170) ug/dL U Cannabinoids Screen Positive A (Negative) 11/27/21 11/28/21 11/28/21 Range/Units 19:59 06:29 09:11 RBC 3.71 L (3.80-5.40) m/uL Hgb 7.9 L (11.4-16.0) gm/dL Hct 28.3 L (34.0-46.0) % MCV 76.4 L (80.0-100.0) fL MCH 21.2 L (25.0-35.0) pg MCHC 27.8 L (31.0-37.0) g/dL RDW 17.4 H (11.5-15.5) % Plt Count 507 H (150-450) k/uL Sodium (137-145) mmol/L Chloride (98-107) mmol/L Carbon Dioxide (22-30) mmol/L Glucose (74-99) mg/dL POC Glucose (mg/dL) 121 H 136 H (75-99) mg/dL Iron (50-170) ug/dL U Cannabinoids Screen (Negative) 11/28/21 11/28/21 Range/Units 09:11 11:39 RBC (3.80-5.40) m/uL Hgb (11.4-16.0) gm/dL Hct (34.0-46.0) % MCV (80.0-100.0) fL MCH (25.0-35.0) pg MCHC (31.0-37.0) g/dL RDW (11.5-15.5) % Plt Count (150-450) k/uL Sodium 135 L (137-145) mmol/L Chloride 97 L (98-107) mmol/L Carbon Dioxide 32 H (22-30) mmol/L Glucose 126 H (74-99) mg/dL POC Glucose (mg/dL) 102 H (75-99) mg/dL Iron (50-170) ug/dL U Cannabinoids Screen (Negative) Microbiology - Last 24 Hours (Table) 11/26/21 17:55 Blood Culture - Preliminary Blood No Growth after 24 hours 11/26/21 17:40 Blood Culture - Preliminary Blood No Growth after 24 hours Assessment and Plan Plan: 1 acute pulmonary edema secondary to decompensated heart failure. Consider underlying acute systolic decompensated heart failure, the patient had acute pulmonary edema and increasing edema lower extremity is bilaterally consistent with decompensated heart failure. Oxidation is improving and the patient is currently on room air. The patient diuresed adequately the chest x-ray is also improving. Echocardiogram showed systolic heart failure with an ejection fraction of 20-25%. As such, the presentation is consistent with acute systolic heart failure 2 acute hypoxic respiratory failure, initially on BiPAP currently on room air oxygen 3 acute hypertensive emergency, currently off the nitroglycerin drip, blood pressure is under good control 4 sinus tachycardia 5 history of non-ST segment elevation myocardial infarction and the patient has multivessel coronary artery disease involving left main and the patient underwent a off pump triple-vessel bypass surgery 6 history of polysubstance abuse including marijuana and methamphetamine 7 history of positive TANIYA 8 history of obstructive sleep apnea not using CPAP therapy 9 diabetes mellitus 10 hyperlipidemia 11 hypertension 12 iron deficiency anemia and hemoglobin is currently at 7.2 13 lactic acidosis, recovered Plan Continue Lasix and Aldactone Monitor fluid balance and electrolytes Agree on a combination of metoprolol and Cardizem Continue aspirin and Plavix Give the patient IV iron regarding her underlying iron deficiency anemia Monitor the hemoglobin Oxygen has been weaned down to room air Cardiology is on the case. Urinalysis is positive for marijuana She may be able to transfer out of the intensive care unit. May be a candidate for AICD at a later stage.
[2021-11-28] MEDS: SODIUM FERRIC GLUCONAT-SUCROSE 125 MG in SODIUM CHLORIDE 0.9% 100 ML IVPB SCH (12:31)
[2021-11-28] MEDS: ENOXAPARIN 40 MG/0.4 ML SYRINGE SQ SCH (15:19)
[2021-11-28 16:25] LABS: Glucose,Whole Blood 140 mg/dL (75-99)
[2021-11-28 20:04] LABS: Glucose,Whole Blood 177 mg/dL (75-99)
[2021-11-28] MEDS: LEVOFLOXACIN 500MG-D5W PMX 500 MG in DEXTROSE/WATER 1 100ML.BAG IVPB SCH (20:54)
[2021-11-28] MEDS: ACETAMINOPHEN TAB 325 MG TAB PO PRN (23:38)
[2021-11-29 06:03] LABS: Glucose,Whole Blood 136 mg/dL (75-99)
[2021-11-29] MEDS: PANTOPRAZOLE 40 MG TABLET PO SCH (06:29)
[2021-11-29] MEDS: metFORMIN 500 MG TAB PO SCH ×2 (06:29→17:14)
[2021-11-29] MEDS: INSULIN ASPART (NovoLOG) 100 UNIT/ML VIAL SQ SCH ×4 (06:29→21:26)
[2021-11-29] MEDS: FUROSEMIDE 10 MG/ML 4 ML VIAL IV SCH ×2 (06:29→17:13)
[2021-11-29 07:52] LABS: Anisocytosis Slight; Basophils # (A) 0.1 k/uL (0-0.2); Basophils % (A) 1 %; Eosinophils # (A) 0.2 k/uL (0-0.7); Eosinophils % (A) 2 %; HCT 30.4 % (34.0-46.0); HGB 8.7 gm/dL (11.4-16.0); Hypochromasia Marked; Lymphocytes # (A) 1.9 k/uL (1.0-4.8); Lymphocytes % (A) 22 %; MCH 21.5 pg (25.0-35.0); MCHC 28.6 g/dL (31.0-37.0); MCV 75.3 fL (80.0-100.0); Mean Platelet Volume 6.8; Microcytosis Slight; Monocytes # (A) 0.4 k/uL (0-1.0); Monocytes % (A) 5 %; Neutrophils # (A) 5.8 k/uL (1.3-7.7); Neutrophils % (A) 68 %; Platelet Count 538 k/uL (150-450); Poikilocytosis Moderate; RBC 4.04 m/uL (3.80-5.40); RDW 17.7 % (11.5-15.5); WBC 8.6 k/uL (3.8-10.6)
[2021-11-29 07:56] LABS: ALT 15 U/L (4-34); AST 18 U/L (14-36); African American GFR (CKD) >90 (>60 ml/min/1.73 sqM); Albumin 3.8 g/dL (3.5-5.0); Alkaline Phosphatase 109 U/L (38-126); Anion Gap 10 mmol/L; Blood Urea Nitrogen 15 mg/dL (7-17); Calcium 8.9 mg/dL (8.4-10.2); Carbon Dioxide 28 mmol/L (22-30); Chloride 95 mmol/L (98-107); Glucose 139 mg/dL (74-99); Non-African American GFR(CKD) 82 (>60 ml/min/1.73 sqM); Potassium 3.8 mmol/L (3.5-5.1); Sodium 133 mmol/L (137-145); Total Bilirubin 0.5 mg/dL (0.2-1.3); Total Protein 7.3 g/dL (6.3-8.2)
[2021-11-29] MEDS: traMADol 50 MG TAB PO SCH ×2 (09:17→21:24)
[2021-11-29] MEDS: ENOXAPARIN 40 MG/0.4 ML SYRINGE SQ SCH (09:18)
[2021-11-29] MEDS: SPIRONOLACTONE 25 MG TAB PO SCH (09:18)
[2021-11-29] MEDS: BACLOFEN 10 MG TAB PO SCH ×3 (09:18→21:25)
[2021-11-29] MEDS: LOSARTAN 25 MG TAB PO SCH ×2 (09:18→21:26)
[2021-11-29] MEDS: CLOPIDOGREL 75 MG TAB PO SCH (09:18)
[2021-11-29] MEDS: METOPROLOL TARTRATE 50 MG TAB PO SCH ×2 (09:19→21:25)
[2021-11-29] MEDS: DILTIAZEM CD 120 MG CAP.ER.24H PO SCH (09:19)
[2021-11-29] MEDS: ASPIRIN 81 MG PO SCH (09:19)
[2021-11-29] MEDS: LINAGLIPTIN 5 MG TABLET PO SCH (09:19)
[2021-11-29] MEDS: ATORVASTATIN 40 MG TAB PO SCH (09:19)
[2021-11-29] MEDS: SODIUM FERRIC GLUCONAT-SUCROSE 125 MG in SODIUM CHLORIDE 0.9% 100 ML IVPB SCH (09:41)
[2021-11-29 12:06] LABS: Glucose,Whole Blood 137 mg/dL (75-99)
--- NOTE | 2021-11-29 14:48 | P.PN ---
Subjective The patient is a 71-year-old female with a past medical history of recent NSTEMI in September 2021 patient underwent three-vessel CABG on 10/11/2021, hypertension, type 2 diabetes, hyperlipidemia, obstructive sleep apnea, Asthma, marijuana use, methamphetamine use and former nicotine dependence. She follow with Dr. Lantigua outpatient. She presented to the emergency department this admission with complaints of acute dyspnea. Diagnosed with acute congestive heart failure and started on IV Lasix. Of note the patient presented to the hospital in September 2021 with an acute episode of chest discomfort and troponin elevation, was found to have non-STEMI in low and left bundle branch block. She had evidence of severe cardiomyopathy. She underwent cardiac catheterization that showed severe coronary disease with distal left main ostial LAD, circumflex and right PDA disease. She underwent CABG SIMPSON to the LAD and radial as a T graft to the first OM. 11/29/2021 Patient seen and examined at bedside, no acute distress. Continues to have lower extremity edema, breathing has improved. Continues to be dyspneic. She's currently maintained on aspirin 81 mg daily, atorvastatin 40 mg daily, Plavix 75 mg daily, Cardizem 120 mg daily, IV Lasix 40 mg twice a day, losartan 25 mg twice a day, spironolactone 25 mg daily. Patient with negative fluid balance for the past 24 hours -1100mL. Echocardiogram revealed an EF of 2025 percent with an anterior, apical wall motion abnormalities, mild mitral regurgitation, tricuspid regurgitation GENERAL: in no acute distress. NECK: Supple without JVD or thyromegaly. LUNGS: Breath sounds clear to auscultation, left lower lobe with some crackles. Respiration equal and unlabored. No wheezes, rales or rhonchi. HEART: Regular rate and rhythm without murmurs, rubs or gallops. S1 and S2 heard. EXTREMITIES: Normal range of motion,2+ bilateral lower extremity edema. No clubbing or cyanosis. Peripheral pulses intact. IMPRESSION 1. Acute heart failure with reduced ejection fraction 2. History of severe ischemic cardiomyopathy 3. Status post CABG September 2021 4. History of hypertension 5. History of diabetes Plan: Continue IV Lasix for additional 24 hours Monitor renal function and electrolytes Monitor I/Os daily weights Continue other home cardiac medications Further recommendations based on clinical course Objective - Vital Signs Vital signs: Vital Signs Temp 98.5 F 11/29/21 12:00 Pulse 87 11/29/21 12:00 Resp 18 11/29/21 12:00 BP 111/70 11/29/21 12:00 Pulse Ox 96 11/29/21 12:00 Intake & Output 11/28/21 11/29/21 11/29/21 18:59 06:59 18:59 Intake Total 100 100 360 Output Total 900 400 Balance -800 -300 360 Weight 98.2 kg Intake: Intake, IV Titration 100 100 Amount Levofloxacin 500Mg-D5w 100 Pmx 500 mg In Dextrose/ Water 1 100ml.bag @ 100 mls/hr IVPB Q24H [facility] Rx#: [id number] Sodium Ferric Gluconat- 100 Sucrose 125 mg In Sodium Chloride 0.9% 100 ml @ 100 mls/hr IVPB DAILY [facility] Rx#:[id number] Oral 360 Output: Urine 900 400 Other: Voiding Method Bedside Commode Toilet Toilet # Voids 1 1 - Labs CBC & Chem 7: 11/29/21 07:18 11/29/21 07:18 Labs: Abnormal Lab Results - Last 24 Hours (Table) 11/28/21 11/28/21 11/29/21 Range/Units 16:22 19:59 05:56 Hgb (11.4-16.0) gm/dL Hct (34.0-46.0) % MCV (80.0-100.0) fL MCH (25.0-35.0) pg MCHC (31.0-37.0) g/dL RDW (11.5-15.5) % Plt Count (150-450) k/uL Sodium (137-145) mmol/L Chloride (98-107) mmol/L Glucose (74-99) mg/dL POC Glucose (mg/dL) 140 H 177 H 136 H (75-99) mg/dL 11/29/21 11/29/21 11/29/21 Range/Units 07:18 07:18 12:00 Hgb 8.7 L (11.4-16.0) gm/dL Hct 30.4 L (34.0-46.0) % MCV 75.3 L (80.0-100.0) fL MCH 21.5 L (25.0-35.0) pg MCHC 28.6 L (31.0-37.0) g/dL RDW 17.7 H (11.5-15.5) % Plt Count 538 H (150-450) k/uL Sodium 133 L (137-145) mmol/L Chloride 95 L (98-107) mmol/L Glucose 139 H (74-99) mg/dL POC Glucose (mg/dL) 137 H (75-99) mg/dL Microbiology - Last 24 Hours (Table) 11/26/21 17:55 Blood Culture - Preliminary Blood No Growth after 48 hours 11/26/21 17:40 Blood Culture - Preliminary Blood No Growth after 48 hours
[2021-11-29 16:42] LABS: Glucose,Whole Blood 141 mg/dL (75-99)
--- NOTE | 2021-11-29 17:46 | P.PN ---
Subjective Progress Note Date: 11/29/21 Principal diagnosis: Acute pulmonary edema related to CHF On today's evaluation of 11/28/2021, seeing the patient for a follow-up. The patient is a case of cardiomyopathy and her echocardiogram showed impaired LV function with an ejection fraction of around 20%. The patient presented with us to us with volume overload, increased lower extremity edema, pulmonary edema and hypoxic respiratory failure. The patient is doing much better for now. Repeat chest x-ray from today shows cardiomegaly. There is a sternotomy changes over the anterior chest. There is still bilateral pleural effusion. There is improvement in aeration and interstitial infiltrates improved considerably compared to few days back. Overall fluid balance has been -2.1 L over the past 24 hours and the patient is headed for another 3 L fluid balance negative over the next 24 hours. As such, the patient is diuresing well. Her weight is down to 93.4 kg. She remains on Lasix 40 mg IV every 12 hours. The patient was also started on Aldactone 25 mg by mouth daily. The patient remains on metoprolol 50 mg by mouth twice a day. Her blood pressures under good control. She is still on a combination of aspirin and Plavix. She was also started on Cardizem 120 mg by mouth daily for some underlying sinus tachycardia. The patient was taking Cardizem also on outpatient basis. Cardiology is on the case. Echocardiogram was noted. As stated, there is significant cardiomyopathy with an ejection f raction of 20-25%. There is segmental wall motion abnormalities. No other significant pericardial effusion or valvular abnormalities. The patient has a hemoglobin of 7.9. Her serum iron came back also low at 16. The white cell count 7.6. Urine is a 50 with a creatinine of 0.7. ProBNP level is 4910. On 11/29/2021 patient seen in follow-up on selective care unit, she is awake and alert, in no acute distress, room air pulse ox is 96%, lung sounds are clear to auscultation, the exception of minimal crackles at the left base. Patient's blood pressure is well-controlled, is 112/75 this afternoon, she has had no fever or chills. She currently remains on Lasix 40 mg every 12 hours and she is maintaining negative fluid balance, she is in -1.1 metastases fluid balance over the last 24 hours, she is also on Levaquin for empiric abiotic coverage, blood cultures have been negative. Today's labs have been reviewed, white blood cell count is 8.6, hemoglobin is 8.7, sodium is 133, potassium 3.8, chloride is 95, CO2 is 28, BUN is 15, creatinine 0.74, proBNP was repeated today, and is impr rosalina and is down to 3000. Left he is are within normal limits. Objective - Vital Signs Vital signs: Vital Signs Temp 98.8 F 11/29/21 17:10 Pulse 112 H 11/29/21 17:10 Resp 16 11/29/21 17:10 BP 112/75 11/29/21 17:10 Pulse Ox 94 L 11/29/21 17:10 Intake & Output 11/28/21 11/29/21 11/29/21 18:59 06:59 18:59 Intake Total 100 100 360 Output Total 900 400 Balance -800 -300 360 Weight 98.2 kg Intake: Intake, IV Titration 100 100 Amount Levofloxacin 500Mg-D5w 100 Pmx 500 mg In Dextrose/ Water 1 100ml.bag @ 100 mls/hr IVPB Q24H [facility] Rx#: [id number] Sodium Ferric Gluconat- 100 Sucrose 125 mg In Sodium Chloride 0.9% 100 ml @ 100 mls/hr IVPB DAILY [facility] Rx#:[id number] Oral 360 Output: Urine 900 400 Other: Voiding Method Bedside Commode Toilet Toilet # Voids 1 1 - Exam GENERAL EXAM: Alert, very pleasant, 71-year-old white female, on room air with a pulse ox of 96%, comfortable in no apparent distress. HEAD: Normocephalic/atraumatic. EYES: Normal reaction of pupils, equal size. Conjunctiva pink, sclera white. NOSE: Clear with pink turbinates. THROAT: No erythema or exudates. NECK: No masses, no JVD, no thyroid enlargement, no adenopathy. CHEST: No chest wall deformity. Symmetrical expansion. LUNGS: Equal air entry with minimal rales at the left base CVS: Regular rate and rhythm, normal S1 and S2, no gallops, no murmurs, no rubs ABDOMEN: Soft, nontender. No hepatosplenomegaly, normal bowel sounds, no guarding or rigidity. EXTREMITIES: No clubbing, no edema, no cyanosis, 2+ pulses and upper and lower extremities. MUSCULOSKELETAL: Muscle strength and tone normal. SPINE: No scoliosis or deformity SKIN: No rashes CENTRAL NERVOUS SYSTEM: Alert and oriented -3. No focal deficits, tone is normal in all 4 extremities. PSYCHIATRIC: Alert and oriented -3. Appropriate affect. Intact judgment and insight. - Labs CBC & Chem 7: 11/29/21 07:18 11/29/21 07:18 Labs: Abnormal Lab Results - Last 24 Hours (Table) 11/28/21 11/29/21 11/29/21 Range/Units 19:59 05:56 07:18 Hgb 8.7 L (11.4-16.0) gm/dL Hct 30.4 L (34.0-46.0) % MCV 75.3 L (80.0-100.0) fL MCH 21.5 L (25.0-35.0) pg MCHC 28.6 L (31.0-37.0) g/dL RDW 17.7 H (11.5-15.5) % Plt Count 538 H (150-450) k/uL Sodium (137-145) mmol/L Chloride (98-107) mmol/L Glucose (74-99) mg/dL POC Glucose (mg/dL) 177 H 136 H (75-99) mg/dL 11/29/21 11/29/21 11/29/21 Range/Units 07:18 12:00 16:40 Hgb (11.4-16.0) gm/dL Hct (34.0-46.0) % MCV (80.0-100.0) fL MCH (25.0-35.0) pg MCHC (31.0-37.0) g/dL RDW (11.5-15.5) % Plt Count (150-450) k/uL Sodium 133 L (137-145) mmol/L Chloride 95 L (98-107) mmol/L Glucose 139 H (74-99) mg/dL POC Glucose (mg/dL) 137 H 141 H (75-99) mg/dL Microbiology - Last 24 Hours (Table) 11/26/21 17:55 Blood Culture - Preliminary Blood No Growth after 48 hours 11/26/21 17:40 Blood Culture - Preliminary Blood No Growth after 48 hours Assessment and Plan Plan: Assessment: #1. Acute pulmonary edema with acute decompensated systolic CHF. Currently oxygenation has improved and patient is currently on room air maintaining O2 s aturations above 95%. Patient continues on IV diuretics and the chest x-ray findings are improving, echocardiogram showed systolic CHF with an ejection fraction of 20-25%. #2. Acute hypoxic after failure initially on BiPAP, currently on room air, improved #3. Acute hypertensive emergency, improved, currently off nitroglycerin drip, and blood pressure is currently under good control #4. Sinus tachycardia, improved #5. History of non-ST segment elevated myocardial infarction, patient has a history of multivessel coronary artery disease involving left main status post off-pump triple vessel bypass surgery #6. History of polysubstance abuse including marijuana and methamphetamine #7. History of positive TANIYA #8. History of obstructive sleep apnea not using CPAP #9. Diabetes mellitus type 2 #10. Hyperlipidemia #11. Hypertension #12. Iron deficiency anemia and hemoglobin of 7.2 with no signs of active bleeding #13. Lactic acidosis recovered Plan: Continue with IV diuretics, and Aldactone, No acute events overnight, blood pressure is well controlled Patient is maintaining stable O2 saturations on room air, Vital signs have been stable From pulmonary perspective she can be considered for discharge home if cleared by cardiology and medicine I performed a history & physical examination of the patient and discussed their management with my nurse practitioner, Kim Galindo. I reviewed the nurse practitioner's note and agree with the documented findings and plan of care. Lung sounds are positive for basilar crackles throughout the lung powers. The findings and the impression was discussed with the patient. I attest to the documentation by the nurse practitioner. Time with Patient: Less than 30
--- NOTE | 2021-11-29 18:18 | P.PN ---
Subjective Progress Note Date: 11/29/21 Mark Moore, he is a 71-year-old female who presented to [facility] with a chief complaint of worsening shortness of breath She was evaluated in the emergency room vital examination on presentation revealed a temperature of 97.8 pulse 152 respiration 46 blood pressure 203/122 pulse ox 99% on room air Laboratory data revealed a white blood count of 21.4 hemoglobin 8.3 platelet count 704 sodium 137 potassium 4.5 chloride 105 CO2 16 BUN 7 creatinine 0.74 COVID-19 PCR was negative urine analysis did not reveal significant evidence of urinary tract infection troponin level was slightly elevated at 0.039. Testing in the emergency room revealed EKG revealed sinus tachycardia with ST an d T-wave abnormalities in the lateral leads chest x-ray revealed evidence of pulmonary edema with bilateral small effusions. Patient was admitted to ICU, she was started on BiPAP, and IV Lasix, cardiology consultation were requested Past medical history is significant for history of coronary artery disease with recent coronary artery bypass graft surgery in September 2021, history of hypertension, hyperlipidemia, COPD, and history of marijuana and methamphetamine use. On 11/28/2021 patient is alert and oriented 3. Patient has been weaned off oxygen no longer requiring BiPAP. Patient remains on IV Lasix -2 L fluid balance. Patient reports improvement with edema and shortness of breath. At this time patient denies chest pain. Patient denies nausea vomiting or diarrhea. Patient denies any urinary burning or frequency. Hemoglobin 7.9. Repeat labs ordered for a.m. patient will likely be moved out of the intensive care unit to stepdown unit On 11/29/2021 patient was seen and examined on the telemetry floor she is alert and oriented 3 in no apparent distress there is no fever or chills no headache or dizziness no chest pain no cough no nausea or vomiting no abdominal pain no diarrhea and no urinary symptoms, she is still complaining of shortness of breath with any activity and complaining of bilateral lower extremity edema Objective - Vital Signs Vital signs: Vital Signs Temp 98.4 F 11/29/21 09:15 Pulse 87 11/29/21 09:15 Resp 20 11/29/21 09:15 BP 107/73 11/29/21 09:15 Pulse Ox 95 11/29/21 09:15 Intake & Output 11/28/21 11/29/21 11/29/21 18:59 06:59 18:59 Intake Total 100 100 180 Output Total 900 400 Balance -800 -300 180 Weight 98.2 kg Intake: Intake, IV Titration 100 100 Amount Levofloxacin 500Mg-D5w 100 Pmx 500 mg In Dextrose/ Water 1 100ml.bag @ 100 mls/hr IVPB Q24H [facility] Rx#: [id number] Sodium Ferric Gluconat- 100 Sucrose 125 mg In Sodium Chloride 0.9% 100 ml @ 100 mls/hr IVPB DAILY [facility] Rx#:[id number] Oral 180 Output: Urine 900 400 Other: Voiding Method Bedside Commode Toilet Toilet # Voids 1 1 - Exam In general patient is alert and oriented x 3 in no distress HEENT head normocephalic and atraumatic Neck is supple no JVD no goiter no lymphadenopathy no carotid bruit Chest examination is clear to auscultation no crackles no wheezing Cardiac exam reveals regular heart sounds S1 and S2 no gallops no murmurs Abdomen is soft nontender no organomegaly with normal bowel sounds Extremity exam reveals +1 lower extremity edema Neurological examination reveals no gross focal deficits - Labs CBC & Chem 7: 11/29/21 07:18 11/29/21 07:18 Labs: Abnormal Lab Results - Last 24 Hours (Table) 11/28/21 11/28/21 11/29/21 Range/Units 16:22 19:59 05:56 Hgb (11.4-16.0) gm/dL Hct (34.0-46.0) % MCV (80.0-100.0) fL MCH (25.0-35.0) pg MCHC (31.0-37.0) g/dL RDW (11.5-15.5) % Plt Count (150-450) k/uL Sodium (137-145) mmol/L Chloride (98-107) mmol/L Glucose (74-99) mg/dL POC Glucose (mg/dL) 140 H 177 H 136 H (75-99) mg/dL 11/29/21 11/29/21 11/29/21 Range/Units 07:18 07:18 12:00 Hgb 8.7 L (11.4-16.0) gm/dL Hct 30.4 L (34.0-46.0) % MCV 75.3 L (80.0-100.0) fL MCH 21.5 L (25.0-35.0) pg MCHC 28.6 L (31.0-37.0) g/dL RDW 17.7 H (11.5-15.5) % Plt Count 538 H (150-450) k/uL Sodium 133 L (137-145) mmol/L Chloride 95 L (98-107) mmol/L Glucose 139 H (74-99) mg/dL POC Glucose (mg/dL) 137 H (75-99) mg/dL Microbiology - Last 24 Hours (Table) 11/26/21 17:55 Blood Culture - Preliminary Blood No Growth after 48 hours 11/26/21 17:40 Blood Culture - Preliminary Blood No Growth after 48 hours Assessment and Plan Plan: Acute hypoxic respiratory failure, requiring BiPAP on admission Acute systolic and diastolic congestive heart failure with acute pulmonary edema Hypertensive emergency on presentation Evidence of anemia on presentation Sinus tachycardia on presentation Recent myocardial infarction with coronary artery bypass graft surgery in September 2021 Underlying history of diabetes mellitus Underlying history of COPD Underlying history of hypertension Underlying history of hyperlipidemia Lactic acidosis recovered Patient maintained on IV Lasix Pulmonary and cardiology services are following Repeat labs ordered for a.m. Patient remains in the ICU likely will transfer out today 11/28/2021
[2021-11-29 20:16] LABS: Glucose,Whole Blood 148 mg/dL (75-99)
[2021-11-29] MEDS: LEVOFLOXACIN 500 MG TAB PO SCH (21:25)
[2021-11-30 06:02] LABS: Glucose,Whole Blood 130 mg/dL (75-99)
[2021-11-30] MEDS: FUROSEMIDE 10 MG/ML 4 ML VIAL IV SCH (06:05)
[2021-11-30] MEDS: metFORMIN 500 MG TAB PO SCH ×2 (07:03→16:52)
[2021-11-30] MEDS: PANTOPRAZOLE 40 MG TABLET PO SCH (07:03)
[2021-11-30 07:34] LABS: Anisocytosis Slight; Basophils # (A) 0.1 k/uL (0-0.2); Basophils % (A) 1 %; Eosinophils # (A) 0.2 k/uL (0-0.7); Eosinophils % (A) 2 %; HCT 29.9 % (34.0-46.0); HGB 8.2 gm/dL (11.4-16.0); Hypochromasia Marked; Lymphocytes # (A) 2.6 k/uL (1.0-4.8); Lymphocytes % (A) 23 %; MCH 20.7 pg (25.0-35.0); MCHC 27.4 g/dL (31.0-37.0); MCV 75.7 fL (80.0-100.0); Mean Platelet Volume 6.8; Microcytosis Moderate; Monocytes # (A) 0.5 k/uL (0-1.0); Monocytes % (A) 5 %; Neutrophils # (A) 7.5 k/uL (1.3-7.7); Neutrophils % (A) 67 %; Platelet Count 493 k/uL (150-450); Poikilocytosis Moderate; RBC 3.95 m/uL (3.80-5.40); WBC 11.2 k/uL (3.8-10.6)
[2021-11-30 07:39] LABS: Albumin 3.6 g/dL (3.5-5.0); Total Protein 6.8 g/dL (6.3-8.2)
[2021-11-30 07:40] LABS: Calcium 8.8 mg/dL (8.4-10.2); Magnesium 1.3 mg/dL (1.6-2.3); Total Bilirubin 0.5 mg/dL (0.2-1.3)
[2021-11-30] MEDS: ASPIRIN 81 MG PO SCH (09:08)
[2021-11-30] MEDS: traMADol 50 MG TAB PO SCH (09:08)
[2021-11-30] MEDS: BACLOFEN 10 MG TAB PO SCH (09:08)
[2021-11-30] MEDS: CLOPIDOGREL 75 MG TAB PO SCH (09:08)
[2021-11-30] MEDS: METOPROLOL TARTRATE 50 MG TAB PO SCH ×2 (09:08→21:26)
[2021-11-30] MEDS: SPIRONOLACTONE 25 MG TAB PO SCH (09:08)
[2021-11-30] MEDS: ATORVASTATIN 40 MG TAB PO SCH (09:09)
[2021-11-30] MEDS: LOSARTAN 25 MG TAB PO SCH ×2 (09:09→21:26)
[2021-11-30] MEDS: LINAGLIPTIN 5 MG TABLET PO SCH (09:09)
[2021-11-30] MEDS: ENOXAPARIN 40 MG/0.4 ML SYRINGE SQ SCH (09:09)
[2021-11-30] MEDS: DILTIAZEM CD 120 MG CAP.ER.24H PO SCH (09:10)
[2021-11-30] MEDS ORDERED: Magnesium Replacement Protocol 1 EACH MISC MISCELLANE PRN (09:28)
[2021-11-30] MEDS: INSULIN ASPART (NovoLOG) 100 UNIT/ML VIAL SQ SCH ×4 (10:54→21:27)
[2021-11-30 11:52] LABS: Glucose,Whole Blood 118 mg/dL (75-99)
[2021-11-30] MEDS ORDERED: ONDANSETRON 4 MG/2 ML VIAL IVP PRN (11:58)
[2021-11-30] MEDS: MAGNESIUM SULFATE-D5W PMX 1 GM in DEXTROSE/WATER 1 100ML.BAG IVPB SCH ×3 (12:01→19:05)
--- NOTE | 2021-11-30 13:56 | P.PN ---
Subjective The patient is a 71-year-old female with a past medical history of recent NSTEMI in September 2021 patient underwent three-vessel CABG on 10/11/2021, hypertension, type 2 diabetes, hyperlipidemia, obstructive sleep apnea, Asthma, marijuana use, methamphetamine use and former nicotine dependence. She follow with Dr. Lantigua outpatient. She presented to the emergency department this admission with complaints of acute dyspnea. Diagnosed with acute congestive heart failure and started on IV Lasix. Of note the patient presented to the hospital in September 2021 with an acute episode of chest discomfort and troponin elevation, was found to have non-STEMI in low and left bundle branch block. She had evidence of severe cardiomyopathy. She underwent cardiac catheterization that showed severe coronary disease with distal left main ostial LAD, circumflex and right PDA disease. She underwent CABG SIMPSON to the LAD and radial as a T graft to the first OM. 11/30/21 Patient seen and examined at bedside, no acute distress. She had an episode of emesis this morning after taking her pills. She states it may be a reaction to drinking rogelio honey then taking her medications. She denies any abdominal pain or nausea. Her lower extremity edema and shortness of breath has improved. Her lungs are clear. She's currently maintained on aspirin 81 mg daily, atorvastatin 40 mg daily, Plavix 75 mg daily, Cardizem 120 mg daily, IV Lasix 40 mg twice a day, losartan 25 mg twice a day, spironolactone 25 mg daily. Patient with negative fluid balance for the past 24 hours -800Ml. Echocardiogram revealed an EF of 2025% with an anterior, apical wall motion abnormalities, mild mitral regurgitation, tricuspid regurgitation Labs: Sodium 133, potassium 4.0, BUN 14, serum creatinine 0.7, magnesium 1.3 GENERAL: in no acute distress. NECK: Supple without JVD LUNGS: Breath sounds clear to auscultation bilaterally. Respiration equal and unlabored. No wheezes, rales or rhonchi. HEART: Regular rate and rhythm without murmurs, rubs or gallops. S1 and S2 heard. EXTREMITIES: Normal range of motion, mild bilateral lower extremity edema, non- pitting. No clubbing or cyanosis. Peripheral pulses intact. IMPRESSION 1. Acute on chronic heart failure with reduced ejection fraction 2. History of severe ischemic cardiomyopathy 3. Status post CABG September 2021 4. History of hypertension 5. History of diabetes 6. Hypomagnesemia Plan: Patient has been improving, we will transition to PO Lasix 40mg BID Replace magnesium per protocol Continue other home cardiac medications, aspirin, plavix, statin, cardizem, losartan, spironolactone. Further recommendations based on evaluation by Dr. Grewal and clinical course Objective - Vital Signs Vital signs: Vital Signs Temp 98.1 F 11/30/21 08:00 Pulse 77 11/30/21 08:00 Resp 19 11/30/21 08:00 BP 110/62 11/30/21 08:00 Pulse Ox 97 11/30/21 08:00 Intake & Output 11/29/21 11/30/21 11/30/21 18:59 06:59 18:59 Intake Total 600 Output Total 800 Balance 600 -800 Weight 91.5 kg Intake: Oral 600 Output: Urine 800 Other: Voiding Method Toilet Toilet # Voids 1 - Labs CBC & Chem 7: 11/30/21 07:03 11/30/21 07:03 Labs: Abnormal Lab Results - Last 24 Hours (Table) 11/29/21 11/29/21 11/29/21 Range/Units 12:00 16:40 20:15 WBC (3.8-10.6) k/uL Hgb (11.4-16.0) gm/dL Hct (34.0-46.0) % MCV (80.0-100.0) fL MCH (25.0-35.0) pg MCHC (31.0-37.0) g/dL RDW (11.5-15.5) % Plt Count (150-450) k/uL Sodium (137-145) mmol/L Chloride (98-107) mmol/L Glucose (74-99) mg/dL POC Glucose (mg/dL) 137 H 141 H 148 H (75-99) mg/dL Magnesium (1.6-2.3) mg/dL 11/30/21 11/30/21 11/30/21 Range/Units 06:01 07:03 07:03 WBC 11.2 H (3.8-10.6) k/uL Hgb 8.2 L (11.4-16.0) gm/dL Hct 29.9 L (34.0-46.0) % MCV 75.7 L (80.0-100.0) fL MCH 20.7 L (25.0-35.0) pg MCHC 27.4 L (31.0-37.0) g/dL RDW 19.0 H (11.5-15.5) % Plt Count 493 H (150-450) k/uL Sodium 133 L (137-145) mmol/L Chloride 94 L (98-107) mmol/L Glucose 113 H (74-99) mg/dL POC Glucose (mg/dL) 130 H (75-99) mg/dL Magnesium 1.3 L (1.6-2.3) mg/dL Microbiology - Last 24 Hours (Table) 11/26/21 17:55 Blood Culture - Preliminary Blood No Growth after 72 hours 11/26/21 17:40 Blood Culture - Preliminary Blood No Growth after 72 hours
[2021-11-30 16:39] LABS: Glucose,Whole Blood 105 mg/dL (75-99)
[2021-11-30] MEDS: FUROSEMIDE 40 MG TAB PO SCH (16:52)
--- NOTE | 2021-11-30 19:40 | P.PN ---
Subjective Progress Note Date: 11/30/21 Mark Moore, he is a 71-year-old female who presented to [facility] with a chief complaint of worsening shortness of breath She was evaluated in the emergency room vital examination on presentation revealed a temperature of 97.8 pulse 152 respiration 46 blood pressure 203/122 pulse ox 99% on room air Laboratory data revealed a white blood count of 21.4 hemoglobin 8.3 platelet count 704 sodium 137 potassium 4.5 chloride 105 CO2 16 BUN 7 creatinine 0.74 COVID-19 PCR was negative urine analysis did not reveal significant evidence of urinary tract infection troponin level was slightly elevated at 0.039. Testing in the emergency room revealed EKG revealed sinus tachycardia with ST an d T-wave abnormalities in the lateral leads chest x-ray revealed evidence of pulmonary edema with bilateral small effusions. Patient was admitted to ICU, she was started on BiPAP, and IV Lasix, cardiology consultation were requested Past medical history is significant for history of coronary artery disease with recent coronary artery bypass graft surgery in September 2021, history of hypertension, hyperlipidemia, COPD, and history of marijuana and methamphetamine use. On 11/28/2021 patient is alert and oriented 3. Patient has been weaned off oxygen no longer requiring BiPAP. Patient remains on IV Lasix -2 L fluid balance. Patient reports improvement with edema and shortness of breath. At this time patient denies chest pain. Patient denies nausea vomiting or diarrhea. Patient denies any urinary burning or frequency. Hemoglobin 7.9. Repeat labs ordered for a.m. patient will likely be moved out of the intensive care unit to stepdown unit On 11/29/2021 patient was seen and examined on the telemetry floor she is alert and oriented 3 in no apparent distress there is no fever or chills no headache or dizziness no chest pain no cough no nausea or vomiting no abdominal pain no diarrhea and no urinary symptoms, she is still complaining of shortness of breath with any activity and complaining of bilateral lower extremity edema On 11/30/2021 patient was seen and examined on the telemetry floor she is alert and oriented 3 in no apparent distress, patient had episodes of nausea and vomiting this morning after taking her pills Zofran was added to her medication regimen and at this time I will hold tramadol and baclofen otherwise patient denies any complaints there is no fever or chills no headache or dizziness no chest pain no shortness of breath no cough, no abdominal pain no diarrhea no blood in the stools no burning with urination no frequency or urgency and no hematuria Objective - Vital Signs Vital signs: Vital Signs Temp 98.1 F 11/30/21 08:00 Pulse 77 11/30/21 08:00 Resp 19 11/30/21 08:00 BP 110/62 11/30/21 08:00 Pulse Ox 97 11/30/21 08:00 Intake & Output 11/29/21 11/30/21 11/30/21 18:59 06:59 18:59 Intake Total 600 Output Total 800 Balance 600 -800 Weight 91.5 kg Intake: Oral 600 Output: Urine 800 Other: Voiding Method Toilet Toilet # Voids 1 - Exam In general patient is alert and oriented x 3 in no distress HEENT head normocephalic and atraumatic Neck is supple no JVD no goiter no lymphadenopathy no carotid bruit Chest examination is clear to auscultation no crackles no wheezing Cardiac exam reveals regular heart sounds S1 and S2 no gallops no murmurs Abdomen is soft nontender no organomegaly with normal bowel sounds Extremity exam reveals +1 lower extremity edema Neurological examination reveals no gross focal deficits - Labs CBC & Chem 7: 11/30/21 07:03 11/30/21 07:03 Labs: Abnormal Lab Results - Last 24 Hours (Table) 11/29/21 11/29/21 11/29/21 Range/Units 12:00 16:40 20:15 WBC (3.8-10.6) k/uL Hgb (11.4-16.0) gm/dL Hct (34.0-46.0) % MCV (80.0-100.0) fL MCH (25.0-35.0) pg MCHC (31.0-37.0) g/dL RDW (11.5-15.5) % Plt Count (150-450) k/uL Sodium (137-145) mmol/L Chloride (98-107) mmol/L Glucose (74-99) mg/dL POC Glucose (mg/dL) 137 H 141 H 148 H (75-99) mg/dL Magnesium (1.6-2.3) mg/dL 11/30/21 11/30/21 11/30/21 Range/Units 06:01 07:03 07:03 WBC 11.2 H (3.8-10.6) k/uL Hgb 8.2 L (11.4-16.0) gm/dL Hct 29.9 L (34.0-46.0) % MCV 75.7 L (80.0-100.0) fL MCH 20.7 L (25.0-35.0) pg MCHC 27.4 L (31.0-37.0) g/dL RDW 19.0 H (11.5-15.5) % Plt Count 493 H (150-450) k/uL Sodium 133 L (137-145) mmol/L Chloride 94 L (98-107) mmol/L Glucose 113 H (74-99) mg/dL POC Glucose (mg/dL) 130 H (75-99) mg/dL Magnesium 1.3 L (1.6-2.3) mg/dL Microbiology - Last 24 Hours (Table) 11/26/21 17:55 Blood Culture - Preliminary Blood No Growth after 72 hours 11/26/21 17:40 Blood Culture - Preliminary Blood No Growth after 72 hours Assessment and Plan Plan: Acute hypoxic respiratory failure, requiring BiPAP on admission Acute systolic and diastolic congestive heart failure with acute pulmonary edema Hypertensive emergency on presentation Evidence of anemia on presentation Sinus tachycardia on presentation Recent myocardial infarction with coronary artery bypass graft surgery in September 2021 Underlying history of diabetes mellitus Underlying history of COPD Underlying history of hypertension Underlying history of hyperlipidemia Lactic acidosis recovered Patient maintained on IV Lasix Pulmonary and cardiology services are following Repeat labs ordered for a.m. Patient remains in the ICU likely will transfer out today 11/28/2021
[2021-11-30 20:08] LABS: Glucose,Whole Blood 130 mg/dL (75-99)
[2021-11-30] MEDS: LEVOFLOXACIN 500 MG TAB PO SCH (21:26)
[2021-12-01 05:58] LABS: Glucose,Whole Blood 131 mg/dL (75-99)
[2021-12-01] MEDS: metFORMIN 500 MG TAB PO SCH (06:09)
[2021-12-01] MEDS: PANTOPRAZOLE 40 MG TABLET PO SCH (06:10)
[2021-12-01] MEDS: INSULIN ASPART (NovoLOG) 100 UNIT/ML VIAL SQ SCH ×2 (06:49→12:16)
[2021-12-01 06:55] LABS: Albumin 3.6 g/dL (3.5-5.0); Calcium 8.9 mg/dL (8.4-10.2); Magnesium 1.7 mg/dL (1.6-2.3); Potassium 3.9 mmol/L (3.5-5.1); Total Bilirubin 0.5 mg/dL (0.2-1.3); Total Protein 6.8 g/dL (6.3-8.2)
[2021-12-01 07:08] LABS: Anisocytosis Moderate; Basophils # (A) 0.1 k/uL (0-0.2); Basophils % (A) 1 %; Eosinophils # (A) 0.2 k/uL (0-0.7); Eosinophils % (A) 2 %; HCT 29.2 % (34.0-46.0); HGB 8.1 gm/dL (11.4-16.0); Hypochromasia Marked; Lymphocytes # (A) 2.3 k/uL (1.0-4.8); Lymphocytes % (A) 25 %; MCH 20.7 pg (25.0-35.0); MCHC 27.8 g/dL (31.0-37.0); MCV 74.6 fL (80.0-100.0); Mean Platelet Volume 6.9; Microcytosis Moderate; Monocytes # (A) 0.5 k/uL (0-1.0); Monocytes % (A) 5 %; Neutrophils # (A) 5.8 k/uL (1.3-7.7); Neutrophils % (A) 65 %; Platelet Count 436 k/uL (150-450); Poikilocytosis Moderate; RBC 3.91 m/uL (3.80-5.40); RDW 20.1 % (11.5-15.5); WBC 8.9 k/uL (3.8-10.6)
[2021-12-01] MEDS: ENOXAPARIN 40 MG/0.4 ML SYRINGE SQ SCH (09:38)
[2021-12-01] MEDS: LOSARTAN 25 MG TAB PO SCH (09:39)
[2021-12-01] MEDS: CLOPIDOGREL 75 MG TAB PO SCH (09:39)
[2021-12-01] MEDS: LINAGLIPTIN 5 MG TABLET PO SCH (09:39)
[2021-12-01] MEDS: ASPIRIN 81 MG PO SCH (09:39)
[2021-12-01] MEDS: METOPROLOL TARTRATE 50 MG TAB PO SCH (09:39)
[2021-12-01] MEDS: SPIRONOLACTONE 25 MG TAB PO SCH (09:39)
[2021-12-01] MEDS: DILTIAZEM CD 120 MG CAP.ER.24H PO SCH (09:39)
[2021-12-01] MEDS: ATORVASTATIN 40 MG TAB PO SCH (09:39)
[2021-12-01] MEDS: FUROSEMIDE 40 MG TAB PO SCH (09:39)
[2021-12-01 11:44] VITALS: BP 106/61; RESP 20; TEMP 98.5
[2021-12-01 11:46] VITALS: PULSE 83
[2021-12-01 11:56] LABS: Glucose,Whole Blood 110 mg/dL (75-99)
--- NOTE | 2021-12-01 12:03 | P.DS ---
Providers Date of admission: 11/26/21 17:20 Expected date of discharge: 12/01/21 Attending physician: Surinder Rodríguez Consults: 11/26/21 17:14 Consult Physician Routine Consulting Provider: Cj Spence Consult Reason/Comments: heart failure exacerbation Do you want consulting provider notified?: Yes 11/26/21 17:20 Consult Physician Routine Consulting Provider: Silvia Murry Consult Reason/Comments: icu patient Do you want consulting provider notified?: Yes Primary care physician: Surinder Marcos [facility] Course: Discharge diagnosis Acute hypoxic respiratory failure, requiring BiPAP on admission Acute systolic and diastolic congestive heart failure with acute pulmonary edema Hypertensive emergency on presentation Evidence of anemia on presentation Sinus tachycardia on presentation Recent myocardial infarction with coronary artery bypass graft surgery in September 2021 Underlying history of diabetes mellitus Underlying history of COPD Underlying history of hypertension Underlying history of hyperlipidemia Lactic acidosis recovered Hospital course Mark Moore, he is a 71-year-old female who presented to [facility] with a chief complaint of worsening shortness of breath She was evaluated in the emergency room vital examination on presentation revealed a temperature of 97.8 pulse 152 respiration 46 blood pressure 203/122 pulse ox 99% on room air Laboratory data revealed a white blood count of 21.4 hemoglobin 8.3 platelet count 704 sodium 137 potassium 4.5 chloride 105 CO2 16 BUN 7 creatinine 0.74 COVID-19 PCR was negative urine analysis did not reveal significant evidence of urinary tract infection troponin level was slightly elevated at 0.039. Testing in the emergency room revealed EKG revealed sinus tachycardia with ST and T-wave abnormalities in the lateral leads chest x-ray revealed evidence of pulmonary edema with bilateral small effusions. Patient was admitted to ICU, she was started on BiPAP, and IV Lasix, cardiology consultation were requested Past medical history is significant for history of coronary artery disease with recent coronary artery bypass graft surgery in September 2021, history of hypertension, hyperlipidemia, COPD, and history of marijuana and methamphetamine use. On 11/28/2021 patient is alert and oriented 3. Patient has been weaned off oxygen no longer requiring BiPAP. Patient remains on IV Lasix -2 L fluid balance. Patient reports improvement with edema and shortness of breath. At this time patient denies chest pain. Patient denies nausea vomiting or diarrhea. Patient denies any urinary burning or frequency. Hemoglobin 7.9. Repeat labs ordered for a.m. patient will likely be moved out of the intensive care unit to stepdown unit On 11/29/2021 patient was seen and examined on the telemetry floor she is alert and oriented 3 in no apparent distress there is no fever or chills no headache or dizziness no chest pain no cough no nausea or vomiting no abdominal pain no diarrhea and no urinary symptoms, she is still complaining of shortness of breath with any activity and complaining of bilateral lower extremity edema On 11/30/2021 patient was seen and examined on the telemetry floor she is alert and oriented 3 in no apparent distress, patient had episodes of nausea and vomiting this morning after taking her pills Zofran was added to her medication regimen and at this time I will hold tramadol and baclofen otherwise patient denies any complaints there is no fever or chills no headache or dizziness no chest pain no shortness of breath no cough, no abdominal pain no diarrhea no blood in the stools no burning with urination no frequency or urgency and no hematuria On 12/01/2021 patient is alert and oriented 3. Patient denies chest pain or shortness of breath. Patient denies nausea vomiting or diarrhea. Patient denies any urinary burning or frequency. Patient has been transitioned to by mouth Lasix has been tolerating. Per nursing staff patient has been cleared by cardiology services for discharge. Patient will be discharged on Lasix and Aldactone per cardiology recommendation. Patient also be discharged on 5 more days of Levaquin. Patient follow-up PCP to check electrolytes and monitor chronic conditions Patient Condition at Discharge: Stable Plan - Discharge Summary Discharge Rx Participant: No New Discharge Prescriptions: New Spironolactone [Aldactone] 25 mg PO DAILY 30 Days #30 tab Furosemide [Lasix] 40 mg PO BID@0900,1600 30 Days #60 tab Levofloxacin [Levaquin] 500 mg PO Q24H 5 Days #5 tab Continue metFORMIN HCL [Glucophage] 1,000 mg PO AC-BID Ibuprofen [Motrin] 800 mg PO AC-TID PRN PRN Reason: Pain traMADol HCl [Ultram] 100 mg PO BID Baclofen 10 mg PO TID PRN PRN Reason: Pain sitaGLIPtin [Januvia] 100 mg PO DAILY rOPINIRole HCL [Requip] 2 mg PO HS Aspirin 325 mg PO DAILY #30 tab Diltiazem Cd [Cardizem CD] 120 mg PO DAILY #30 capsule Pantoprazole [Protonix] 40 mg PO AC-BRKFST #30 tab Acetaminophen Tab [Tylenol] 650 mg PO Q6HR PRN tab PRN Reason: Mild Pain or Fever > 38.3 C Atorvastatin [Lipitor] 40 mg PO DAILY #30 tab Metoprolol Tartrate [Lopressor] 50 mg PO BID #60 tab Clopidogrel [Plavix] 75 mg PO DAILY #30 tab Losartan [Cozaar] 25 mg PO DAILY Discharge Medication List Ibuprofen [Motrin] 800 mg PO AC-TID PRN 06/02/14 [History] metFORMIN HCL [Glucophage] 1,000 mg PO AC-BID 06/02/14 [History] traMADol HCl [Ultram] 100 mg PO BID 11/04/15 [History] Baclofen 10 mg PO TID PRN 09/14/16 [History] sitaGLIPtin [Januvia] 100 mg PO DAILY 03/04/19 [History] rOPINIRole HCL [Requip] 2 mg PO HS 07/21/20 [History] Acetaminophen Tab [Tylenol] 650 mg PO Q6HR PRN tab 10/15/21 [Rx] Aspirin 325 mg PO DAILY #30 tab 10/15/21 [Rx] Atorvastatin [Lipitor] 40 mg PO DAILY #30 tab 10/15/21 [Rx] Clopidogrel [Plavix] 75 mg PO DAILY #30 tab 10/15/21 [Rx] Diltiazem Cd [Cardizem CD] 120 mg PO DAILY #30 capsule 10/15/21 [Rx] Metoprolol Tartrate [Lopressor] 50 mg PO BID #60 tab 10/15/21 [Rx] Pantoprazole [Protonix] 40 mg PO AC-BRKFST #30 tab 10/15/21 [Rx] Losartan [Cozaar] 25 mg PO DAILY 11/26/21 [History] Furosemide [Lasix] 40 mg PO BID@0900,1600 30 Days #60 tab 12/01/21 [Rx] Levofloxacin [Levaquin] 500 mg PO Q24H 5 Days #5 tab 12/01/21 [Rx] Spironolactone [Aldactone] 25 mg PO DAILY 30 Days #30 tab 12/01/21 [Rx] Follow up Appointment(s)/Referral(s): Jairo Lantigua MD [STAFF PHYSICIAN] - 1 Week Surinder Rodríguez MD [Primary Care Provider] - 1-2 days Activity/Diet/Wound Care/Special Instructions: Activity as tolerated Diet heart healthy Discharge Disposition: HOME SELF-CARE
--- NOTE | 2021-12-01 14:58 | P.PN ---
Subjective The patient is a 71-year-old female with a past medical history of recent NSTEMI in September 2021 patient underwent three-vessel CABG on 10/11/2021, hypertension, type 2 diabetes, hyperlipidemia, obstructive sleep apnea, Asthma, marijuana use, methamphetamine use and former nicotine dependence. She follow with Dr. Lantigua outpatient. She presented to the emergency department this admission with complaints of acute dyspnea. Diagnosed with acute congestive heart failure and started on IV Lasix. Of note the patient presented to the hospital in September 2021 with an acute episode of chest discomfort and troponin elevation, was found to have non-STEMI in low and left bundle branch block. She had evidence of severe cardiomyopathy. She underwent cardiac catheterization that showed severe coronary disease with distal left main ostial LAD, circumflex and right PDA disease. She underwent CABG SIMPSON to the LAD and radial as a T graft to the first OM. 12/01/2021 Patient seen and examined at bedside, no acute distress. Patient is doing well. She states she has been ambulating in her room without difficulty. She denies chest pain or shortness of breath. No further emesis She denies any abdominal pain or nausea. Her lower extremity edema and shortness of breath has improved. Her lungs are clear. She's currently maintained on aspirin 81 mg daily, atorvastatin 40 mg daily, Plavix 75 mg daily, Cardizem 120 mg daily, PO Lasix 40 mg twice a day, losartan 25 mg twice a day, spironolactone 25 mg daily. Patient with negative fluid balance for the past 24 hours -620ml. Echocardiogram revealed an EF of 2025% with an anterior, apical wall motion abnormalities, mild mitral regurgitation, tricuspid regurgitation Labs: Sodium 131, potassium 3.9, BUN 15, serum chem 0.8, magnesium 1.7 GENERAL: in no acute distress. NECK: Supple without JVD LUNGS: Breath sounds clear to auscultation bilaterally. Respiration equal and unlabored. No wheezes, rales or rhonchi. HEART: Regular rate and rhythm without murmurs, rubs or gallops. S1 and S2 heard. EXTREMITIES: Normal range of motion, mild bilateral lower extremity edema, non- pitting. No clubbing or cyanosis. Peripheral pulses intact. IMPRESSION 1. Acute on chronic heart failure with reduced ejection fraction 2. History of severe ischemic cardiomyopathy 3. Status post CABG September 2021 4. History of hypertension 5. History of diabetes 6. Hypomagnesemia Plan: From cardiology perspective, patient stable to be discharged home. Continue by mouth Lasix 40 mg twice a day Continue other home cardiac medications, aspirin, plavix, statin, cardizem, losartan, spironolactone. Recommend close follow-up with Dr. Lantigua in the office. Objective - Vital Signs Vital signs: Vital Signs Temp 98.5 F 12/01/21 11:43 Pulse 83 12/01/21 11:43 Resp 20 12/01/21 11:43 BP 106/61 12/01/21 11:43 Pulse Ox 95 12/01/21 11:43 Intake & Output 11/30/21 12/01/21 12/01/21 18:59 06:59 18:59 Intake Total 180 1240 Output Total 800 Balance -620 1240 Weight 91.5 kg Intake: Oral 180 1240 Output: Urine 800 Other: Voiding Method Toilet Toilet Toilet # Voids 1 # Bowel Movements 1 - Labs CBC & Chem 7: 12/01/21 06:07 12/01/21 06:07 Labs: Abnormal Lab Results - Last 24 Hours (Table) 11/30/21 11/30/21 12/01/21 Range/Units 16:37 20:04 05:56 Hgb (11.4-16.0) gm/dL Hct (34.0-46.0) % MCV (80.0-100.0) fL MCH (25.0-35.0) pg MCHC (31.0-37.0) g/dL RDW (11.5-15.5) % Sodium (137-145) mmol/L Chloride (98-107) mmol/L Carbon Dioxide (22-30) mmol/L Glucose (74-99) mg/dL POC Glucose (mg/dL) 105 H 130 H 131 H (75-99) mg/dL 12/01/21 12/01/21 12/01/21 Range/Units 06:07 06:07 11:55 Hgb 8.1 L (11.4-16.0) gm/dL Hct 29.2 L (34.0-46.0) % MCV 74.6 L (80.0-100.0) fL MCH 20.7 L (25.0-35.0) pg MCHC 27.8 L (31.0-37.0) g/dL RDW 20.1 H (11.5-15.5) % Sodium 131 L (137-145) mmol/L Chloride 93 L (98-107) mmol/L Carbon Dioxide 31 H (22-30) mmol/L Glucose 122 H (74-99) mg/dL POC Glucose (mg/dL) 110 H (75-99) mg/dL Microbiology - Last 24 Hours (Table) 11/26/21 17:55 Blood Culture - Preliminary Blood No Growth after 96 hours 11/26/21 17:40 Blood Culture - Preliminary Blood No Growth after 96 hours
== END 2021-12-01 14:04 | disposition home or self-care (01) | DRG 291 ==
LOC: EC 15:48 → 2SICU 17:20 → 3SCARD 11-28 15:30
PROVIDERS: ADMIT Internal Medicine; ATTEND Internal Medicine
PROC: 5A09357 Assistance with Respiratory Ventilation, Less than 24 Consecutive Hours, Continuous Positive Airway Pressure (ICD-10-PCS; principal; 2021-11-26)
DX: I11.0 Hypertensive heart disease with heart failure (principal); I50.43 Acute on chronic combined systolic (congestive) and diastolic (congestive) heart failure; J96.01 Acute respiratory failure with hypoxia; I16.1 Hypertensive emergency; E87.2 Acidosis; E83.42 Hypomagnesemia; M79.7 Fibromyalgia; I25.2 Old myocardial infarction; D50.9 Iron deficiency anemia, unspecified; D72.829 Elevated white blood cell count, unspecified; E11.9 Type 2 diabetes mellitus without complications; E78.5 Hyperlipidemia, unspecified; F15.10 Other stimulant abuse, uncomplicated; F19.10 Other psychoactive substance abuse, uncomplicated; I08.1 Rheumatic disorders of both mitral and tricuspid valves; R77.8 Other specified abnormalities of plasma proteins; Z20.822 Contact with and (suspected) exposure to COVID-19; I25.10 Atherosclerotic heart disease of native coronary artery without angina pectoris; M47.9 Spondylosis, unspecified; I25.5 Ischemic cardiomyopathy; I44.7 Left bundle-branch block, unspecified; Z95.1 Presence of aortocoronary bypass graft; M32.9 Systemic lupus erythematosus, unspecified; J44.9 Chronic obstructive pulmonary disease, unspecified; G47.30 Sleep apnea, unspecified; Z79.02 Long term (current) use of antithrombotics/antiplatelets; Z79.82 Long term (current) use of aspirin; Z79.84 Long term (current) use of oral hypoglycemic drugs; Z79.899 Other long term (current) drug therapy; Z82.49 Family history of ischemic heart disease and other diseases of the circulatory system; Z83.3 Family history of diabetes mellitus; Z87.891 Personal history of nicotine dependence; Z88.1 Allergy status to other antibiotic agents; Z88.2 Allergy status to sulfonamides; Z90.89 Acquired absence of other organs; Z98.890 Other specified postprocedural states; Z90.49 Acquired absence of other specified parts of digestive tract; Z98.51 Tubal ligation status; Z86.61 Personal history of infections of the central nervous system
CPT/HCPCS: 36415; 71045; 80053; 80306; 81001; 83540; 83550; 83605; 83735; 83880; 84484; 85025; 85027; 85610; 85730; 87040; 87635; 93005; 93306; 94660; 94760; 96374; 99291

== ENCOUNTER 2022-01-13 12:41 | Inpatient (IN) | payer MEDICARE, OTHER ==
[2022-01-13] MEDS ORDERED: NITROGLYCERIN SL TABS 0.4 MG TAB SUBLINGUAL STA (13:02)
--- NOTE | 2022-01-13 13:23 | XR ---
EXAMINATION TYPE: XR chest 1V portable DATE OF EXAM: 01/13/2022 COMPARISON: 11/28/2021 HISTORY: Shortness of breath FINDINGS: There are bilateral pleural effusions with cardiomegaly and bibasilar infiltrate. There is a diffuse interstitial pattern. Postoperative change. IMPRESSION: 1. Correlate for CHF otherwise consider diffuse pneumonia.
[2022-01-13 13:26] LABS: Anisocytosis Slight; Basophils # (A) 0.3 k/uL (0-0.2); Basophils % (A) 1 %; Eosinophils # (A) 0.6 k/uL (0-0.7); Eosinophils % (A) 2 %; HGB 8.6 gm/dL (11.4-16.0); Hypochromasia Marked; Lymphocytes # (A) 11.3 k/uL (1.0-4.8); Lymphocytes % (A) 49 %; MCH 20.4 pg (25.0-35.0); MCHC 26.2 g/dL (31.0-37.0); Mean Platelet Volume 7.6; Microcytosis Slight; Monocytes # (A) 1.1 k/uL (0-1.0); Monocytes % (A) 5 %; Neutrophils # (A) 9.1 k/uL (1.3-7.7); Neutrophils % (A) 40 %; Platelet Count 698 k/uL (150-450); RBC 4.24 m/uL (3.80-5.40); RDW 17.7 % (11.5-15.5); WBC 22.9 k/uL (3.8-10.6)
[2022-01-13 13:27] LABS: INR 0.9 (<1.2); Partial Thromboplastin Time 24.7 sec (22.0-30.0); Prothrombin Time 9.9 sec (9.0-12.0)
[2022-01-13 13:35] LABS: Albumin 4.1 g/dL (3.5-5.0); Magnesium 2.2 mg/dL (1.6-2.3); Potassium 4.8 mmol/L (3.5-5.1); Total Bilirubin 0.3 mg/dL (0.2-1.3); Total Protein 7.5 g/dL (6.3-8.2)
[2022-01-13 13:35] LABS: ABG Base Excess -13.1 mmol/L; ABG HCO3 15 mmol/L (21-25); ABG PCO2 38 mmHg (35-45); ABG PO2 274 mmHg (83-108); ABG TCO2 16 mmol/L (19-24); Allen Test Performed? Yes
[2022-01-13 13:56] LABS: Polychromasia Present
[2022-01-13 13:57] LABS: Poikilocytosis (M) Present
[2022-01-13] MEDS ORDERED: LEVOFLOXACIN 750MG-D5W PMX 750 MG in DEXTROSE/WATER 1 150ML.BAG IVPB STA (15:24)
--- NOTE | 2022-01-13 15:53 | ED ---
SOB HPI - General Chief Complaint: Shortness of Breath Stated Complaint: NIDIA Source: patient Mode of arrival: wheelchair Limitations: no limitations - History of Present Illness Initial Comments: 71-year-old female with past medical history of CABG, congestive heart failure presents emergency room with shortness of breath. States that she has been short of breath for the past one week. She has not been taking her diuretics. Patient cannot tell me why. Has noted some lower extremity edema. Oxygen saturation is 78% upon hospital arrival. Does not were oxygen at home. Patient extremely hypertensive with labored breathing. Denies any cough. No chest pain. No fevers. No other alleviating, Perceptin or modifying factors - Related Data Home Medications Medication Instructions Recorded Confirmed traMADol HCl [Ultram] 100 mg PO HS 11/04/15 01/13/22 Baclofen 10 mg PO HS PRN 09/14/16 01/13/22 rOPINIRole HCL [Requip] 2 mg PO HS 07/21/20 01/13/22 Losartan [Cozaar] 25 mg PO DAILY 11/26/21 01/13/22 Aspirin EC [Ecotrin Low Dose] 81 mg PO DAILY 01/13/22 01/13/22 Atorvastatin [Lipitor] 40 mg PO HS 01/13/22 01/13/22 Previous Rx's Medication Instructions Recorded Clopidogrel [Plavix] 75 mg PO DAILY #30 tab 10/15/21 Diltiazem Cd [Cardizem CD] 120 mg PO DAILY #30 capsule 10/15/21 Metoprolol Tartrate [Lopressor] 50 mg PO BID #60 tab 10/15/21 Pantoprazole [Protonix] 40 mg PO AC-BRKFST #30 tab 10/15/21 Furosemide [Lasix] 40 mg PO BID@0900,1600 30 Days #60 12/01/21 tab Spironolactone [Aldactone] 25 mg PO DAILY 30 Days #30 tab 12/01/21 Allergies Allergy/AdvReac Type Severity Reaction Status Date / Time cephalexin Allergy Anaphylaxis Verified 01/13/22 12:43 cephalexin monohydrate Allergy Anaphylaxis Verified 01/13/22 12:43 [From Keflex] Sulfa (Sulfonamide Allergy Rash/Hives Verified 01/13/22 12:43 Antibiotics) Review of Systems ROS Statement: Those systems with pertinent positive or pertinent negative responses have been documented in the HPI. ROS Other: All systems not noted in ROS Statement are negative. 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 Poly substance abuse 07/19/21 admitted for Acute delirium History of Any Multi-Drug Resistant Organisms: None Reported Past Surgical History: Cholecystectomy, Hernia Repair, Orthopedic Surgery, Tonsillectomy, Tubal Ligation Additional Past Surgical History / Comment(s): LEFT KNEE ARTHROSCOPY, BMT AND MYRINGOPLASTY, umbilical hernia repair, CABG 2020 Past Anesthesia/Blood Transfusion Reactions: No Reported Reaction Additional Past Anesthesia/Blood Transfusion Reaction / Comment(s): STATES AFTER LAST EAR SX (11/2013) HAD SORE MUSCLES AND WAS WEAK FOR 3-4 DAYS Past Psychological History: Unable to Obtain Smoking Status: Former smoker Past Alcohol Use History: None Reported Past Drug Use History: Marijuana, Methamphetamine - Past Family History Sister(s) Family Medical History: Cancer Brother(s) Family Medical History: Cancer Additional Family Medical History / Comment(s): brother had heart valve replacement Mother Family Medical History: Chest Pain / Angina, Diabetes Mellitus, Hypertension Father History Unknown: Yes General Exam Limitations: no limitations Course Vital Signs 01/13/22 01/13/22 01/13/22 12:44 13:00 15:14 Temperature 97.7 F Pulse Rate 161 H 121 H Respiratory 28 H 32 H 32 H Rate Blood Pressure 142/88 140/99 O2 Sat by Pulse 78 L 100 Oximetry Medical Decision Making - Medical Decision Making Upon arrival the patient is placed into a trauma 1. She is immediately placed on BiPAP. Due to her accelerated hypertension with blood pressure being 208/120 the patient was given a sublingual nitro. IV access established. Laboratory studies were conducted and reviewed. White count 22.9. D-dimer 2.24. Lactic 11.5. BNP 2310. Chest x-ray demonstrates volume overload versus diffuse pneumonia. Patient is not given IV fluids due to her findings of congestive he art failure. I did initiate antibiotics and blood cultures. Spoke with Dr. Rodríguez and Dr. Alexander. Patient will be transferred to the ICU in stable condition - Lab Data Result diagrams: 01/13/22 13:05 01/13/22 13:05 Lab Results 01/13/22 01/13/22 01/13/22 Range/Units 13:03 13:03 13:05 WBC 22.9 H (3.8-10.6) k/uL RBC 4.24 (3.80-5.40) m/uL Hgb 8.6 L (11.4-16.0) gm/dL Hct 33.0 L (34.0-46.0) % MCV 78.0 L (80.0-100.0) fL MCH 20.4 L (25.0-35.0) pg MCHC 26.2 L (31.0-37.0) g/dL RDW 17.7 H (11.5-15.5) % Plt Count 698 H (150-450) k/uL MPV 7.6 Neutrophils % 40 % Lymphocytes % 49 % Monocytes % 5 % Eosinophils % 2 % Basophils % 1 % Neutrophils # 9.1 H (1.3-7.7) k/uL Lymphocytes # 11.3 H (1.0-4.8) k/uL Monocytes # 1.1 H (0-1.0) k/uL Eosinophils # 0.6 (0-0.7) k/uL Basophils # 0.3 H (0-0.2) k/uL Manual Slide Review Performed Polychromasia Present Hypochromasia Marked Poikilocytosis (manual Present Anisocytosis Slight Microcytosis Slight PT (9.0-12.0) sec INR (<1.2) APTT (22.0-30.0) sec D-Dimer (<0.60) mg/L FEU Sample Site ABG pH (7.35-7.45) ABG pCO2 (35-45) mmHg ABG pO2 (83-108) mmHg ABG HCO3 (21-25) mmol/L ABG Total CO2 (19-24) mmol/L ABG O2 Saturation (94-97) % ABG Base Excess mmol/L Jameson Test FiO2 % Sodium (137-145) mmol/L Potassium (3.5-5.1) mmol/L Chloride (98-107) mmol/L Carbon Dioxide (22-30) mmol/L Anion Gap mmol/L BUN (7-17) mg/dL Creatinine (0.52-1.04) mg/dL Est GFR (CKD-EPI)AfAm (>60 ml/min/1.73 sqM) Est GFR (CKD-EPI)NonAf (>60 ml/min/1.73 sqM) Glucose (74-99) mg/dL Lactic Ac Sepsis Rflx Plasma Lactic Acid Angel (0.7-2.0) mmol/L Calcium (8.4-10.2) mg/dL Magnesium (1.6-2.3) mg/dL Total Bilirubin (0.2-1.3) mg/dL AST (14-36) U/L ALT (4-34) U/L Alkaline Phosphatase (38-126) U/L Troponin I (0.000-0.034) ng/mL NT-Pro-B Natriuret Pep 2310 pg/mL Total Protein (6.3-8.2) g/dL Albumin (3.5-5.0) g/dL Coronavirus (PCR) (Not Detectd) Influenza Type A RNA Not Detected (Not Detectd) Influenza Type B (PCR) Not Detected (Not Detectd) 01/13/22 01/13/22 01/13/22 Range/Units 13:05 13:05 13:05 WBC (3.8-10.6) k/uL RBC (3.80-5.40) m/uL Hgb (11.4-16.0) gm/dL Hct (34.0-46.0) % MCV (80.0-100.0) fL MCH (25.0-35.0) pg MCHC (31.0-37.0) g/dL RDW (11.5-15.5) % Plt Count (150-450) k/uL MPV Neutrophils % % Lymphocytes % % Monocytes % % Eosinophils % % Basophils % % Neutrophils # (1.3-7.7) k/uL Lymphocytes # (1.0-4.8) k/uL Monocytes # (0-1.0) k/uL Eosinophils # (0-0.7) k/uL Basophils # (0-0.2) k/uL Manual Slide Review Polychromasia Hypochromasia Poikilocytosis (manual Anisocytosis Microcytosis PT 9.9 (9.0-12.0) sec INR 0.9 (<1.2) APTT 24.7 (22.0-30.0) sec D-Dimer 2.24 H (<0.60) mg/L FEU Sample Site ABG pH (7.35-7.45) ABG pCO2 (35-45) mmHg ABG pO2 (83-108) mmHg ABG HCO3 (21-25) mmol/L ABG Total CO2 (19-24) mmol/L ABG O2 Saturation (94-97) % ABG Base Excess mmol/L Jameson Test FiO2 % Sodium 136 L (137-145) mmol/L Potassium 4.8 (3.5-5.1) mmol/L Chloride 104 (98-107) mmol/L Carbon Dioxide 11 L (22-30) mmol/L Anion Gap 21 mmol/L BUN 8 (7-17) mg/dL Creatinine 0.89 (0.52-1.04) mg/dL Est GFR (CKD-EPI)AfAm 76 (>60 ml/min/1.73 sqM) Est GFR (CKD-EPI)NonAf 66 (>60 ml/min/1.73 sqM) Glucose 458 H (74-99) mg/dL Lactic Ac Sepsis Rflx Plasma Lactic Acid Angel 11.5 H* (0.7-2.0) mmol/L Calcium 9.0 (8.4-10.2) mg/dL Magnesium 2.2 (1.6-2.3) mg/dL Total Bilirubin 0.3 (0.2-1.3) mg/dL AST 16 (14-36) U/L ALT 12 (4-34) U/L Alkaline Phosphatase 107 (38-126) U/L Troponin I (0.000-0.034) ng/mL NT-Pro-B Natriuret Pep pg/mL Total Protein 7.5 (6.3-8.2) g/dL Albumin 4.1 (3.5-5.0) g/dL Coronavirus (PCR) (Not Detectd) Influenza Type A RNA (Not Detectd) Influenza Type B (PCR) (Not Detectd) 01/13/22 01/13/22 01/13/22 Range/Units 13:05 13:05 13:19 WBC (3.8-10.6) k/uL RBC (3.80-5.40) m/uL Hgb (11.4-16.0) gm/dL Hct (34.0-46.0) % MCV (80.0-100.0) fL MCH (25.0-35.0) pg MCHC (31.0-37.0) g/dL RDW (11.5-15.5) % Plt Count (150-450) k/uL MPV Neutrophils % % Lymphocytes % % Monocytes % % Eosinophils % % Basophils % % Neutrophils # (1.3-7.7) k/uL Lymphocytes # (1.0-4.8) k/uL Monocytes # (0-1.0) k/uL Eosinophils # (0-0.7) k/uL Basophils # (0-0.2) k/uL Manual Slide Review Polychromasia Hypochromasia Poikilocytosis (manual Anisocytosis Microcytosis PT (9.0-12.0) sec INR (<1.2) APTT (22.0-30.0) sec D-Dimer (<0.60) mg/L FEU Sample Site Right Brachial ABG pH 7.20 L (7.35-7.45) ABG pCO2 38 (35-45) mmHg ABG pO2 274 H (83-108) mmHg ABG HCO3 15 L (21-25) mmol/L ABG Total CO2 16 L (19-24) mmol/L ABG O2 Saturation 100.0 H (94-97) % ABG Base Excess -13.1 mmol/L Jameson Test Yes FiO2 80 % Sodium (137-145) mmol/L Potassium (3.5-5.1) mmol/L Chloride (98-107) mmol/L Carbon Dioxide (22-30) mmol/L Anion Gap mmol/L BUN (7-17) mg/dL Creatinine (0.52-1.04) mg/dL Est GFR (CKD-EPI)AfAm (>60 ml/min/1.73 sqM) Est GFR (CKD-EPI)NonAf (>60 ml/min/1.73 sqM) Glucose (74-99) mg/dL Lactic Ac Sepsis Rflx Plasma Lactic Acid Angel (0.7-2.0) mmol/L Calcium (8.4-10.2) mg/dL Magnesium (1.6-2.3) mg/dL Total Bilirubin (0.2-1.3) mg/dL AST (14-36) U/L ALT (4-34) U/L Alkaline Phosphatase (38-126) U/L Troponin I 0.018 (0.000-0.034) ng/mL NT-Pro-B Natriuret Pep pg/mL Total Protein (6.3-8.2) g/dL Albumin (3.5-5.0) g/dL Coronavirus (PCR) Not Detected (Not Detectd) Influenza Type A RNA (Not Detectd) Influenza Type B (PCR) (Not Detectd) 01/13/22 Range/Units 13:47 WBC (3.8-10.6) k/uL RBC (3.80-5.40) m/uL Hgb (11.4-16.0) gm/dL Hct (34.0-46.0) % MCV (80.0-100.0) fL MCH (25.0-35.0) pg MCHC (31.0-37.0) g/dL RDW (11.5-15.5) % Plt Count (150-450) k/uL MPV Neutrophils % % Lymphocytes % % Monocytes % % Eosinophils % % Basophils % % Neutrophils # (1.3-7.7) k/uL Lymphocytes # (1.0-4.8) k/uL Monocytes # (0-1.0) k/uL Eosinophils # (0-0.7) k/uL Basophils # (0-0.2) k/uL Manual Slide Review Polychromasia Hypochromasia Poikilocytosis (manual Anisocytosis Microcytosis PT (9.0-12.0) sec INR (<1.2) APTT (22.0-30.0) sec D-Dimer (<0.60) mg/L FEU Sample Site ABG pH (7.35-7.45) ABG pCO2 (35-45) mmHg ABG pO2 (83-108) mmHg ABG HCO3 (21-25) mmol/L ABG Total CO2 (19-24) mmol/L ABG O2 Saturation (94-97) % ABG Base Excess mmol/L Jameson Test FiO2 % Sodium (137-145) mmol/L Potassium (3.5-5.1) mmol/L Chloride (98-107) mmol/L Carbon Dioxide (22-30) mmol/L Anion Gap mmol/L BUN (7-17) mg/dL Creatinine (0.52-1.04) mg/dL Est GFR (CKD-EPI)AfAm (>60 ml/min/1.73 sqM) Est GFR (CKD-EPI)NonAf (>60 ml/min/1.73 sqM) Glucose (74-99) mg/dL Lactic Ac Sepsis Rflx Y Plasma Lactic Acid Angel (0.7-2.0) mmol/L Calcium (8.4-10.2) mg/dL Magnesium (1.6-2.3) mg/dL Total Bilirubin (0.2-1.3) mg/dL AST (14-36) U/L ALT (4-34) U/L Alkaline Phosphatase (38-126) U/L Troponin I (0.000-0.034) ng/mL NT-Pro-B Natriuret Pep pg/mL Total Protein (6.3-8.2) g/dL Albumin (3.5-5.0) g/dL Coronavirus (PCR) (Not Detectd) Influenza Type A RNA (Not Detectd) Influenza Type B (PCR) (Not Detectd) - EKG Data EKG Comments: EKG demonstrates a tachycardic rhythm with a rate of 159. QRS 130. QTC of 379. There is a right bundle branch block. No acute ST segment elevations Disposition Clinical Impression: Pneumonia, Hypertensive emergency, CHF (congestive heart failure) Disposition: ADMITTED IP TO THIS HOSP Condition: Serious Is patient prescribed a controlled substance at d/c from ED?: No Decision to Admit Reason: Admit from EC Decision Date: 01/13/22 Decision Time: 16:07
[2022-01-13] MEDS ORDERED: NALOXONE 0.4 MG/ML 1 ML VIAL IV PRN (16:07)
[2022-01-13] MEDS ORDERED: FUROSEMIDE 10 MG/ML 4 ML VIAL IV STA (16:30)
[2022-01-13] MEDS ORDERED: DEXTROSE 5% IN WATER 1,000 ML with SODIUM BICARB (1 MEQ/ML) 150 ML IV SCH (16:30)
[2022-01-13] MEDS ORDERED: INSULIN REGULAR BOLUS (FROM DRIP BAG) IV PRN (16:32)
[2022-01-13] MEDS ORDERED: MORPHINE SULFATE 2 MG/ML SYRINGE IVP STA (16:47)
--- NOTE | 2022-01-13 16:49 | P.CNPUL ---
History of Present Illness Consult date: 01/13/22 Requesting physician: Surinder Rodríguez Reason for consult: dyspnea, hypoxemia Chief complaint: Shortness of breath History of present illness: This is a 71-year-old female, known history of multiple medical problems including cardiomyopathy and LV dysfunction, obesity, obstructive sleep apnea syndrome, chronic systolic congestive heart failure and LV dysfunction, ejection fraction is normally in the range of 20-25%. Patient was last seen by us on consultation in early November, and at that time she was treated mostly for congestive heart failure. Patient is also known to have history of coronary artery disease, previous off pump bypass surgery with SIMPSON to LAD and a T graft left radial graft to obtuse marginal and intermediate coronary artery. Again she has clearly previous history of LV dysfunction with ejection fraction of 20- 25%. Patient is also known to have history of hypertension, dyslipidemia, diabetes and COPD. Patient came into the ER today in severe respiratory distress, chest x-ray is showing evidence of interstitial edema, unable to rule out underlying pneumonia although the clinical history suggests no pneumonia based on her symptoms. Patient was hyperglycemic, metabolically acidotic, lactic acid is about 11. And she required the placement on BiPAP. Presently on IPAP of 14 and EPAP of 6. ABG showed a pO2 of 274 pCO2 of 38 pH of 7.20. Hence I cut down her FiO2 from 80% to 60%. CBC showed WBC count of 22.9 hemoglobin is 8.6. D-dimer of 2.24. Renal profile was normal however her bicarb was noted to be low at 11 with anion gap of 21. Ketones are pending. But her blood sugar today is 458. BNP level was 2310. Patient tested negative for amaro virus, influenza. I saw this patient in the ER, I recommended a sodium bicarb drip, insulin drip for hyperglycemia, she is already on Levaquin empirically, and I'm making arrangements for the patient to be admitted to the ICU. Review of Systems Constitutional: Reports fatigue, Reports weakness Eyes: Negative. Ears: Negative. Ears, nose, mouth and throat: Negative. Cardiovascular: As noted in HPI Respiratory: As noted in HPI Genitourinary: Negative Musculoskeletalnegative. 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 Poly substance abuse 07/19/21 admitted for Acute delirium History of Any Multi-Drug Resistant Organisms: None Reported Past Surgical History: Cholecystectomy, Hernia Repair, Orthopedic Surgery, Tonsillectomy, Tubal Ligation Additional Past Surgical History / Comment(s): LEFT KNEE ARTHROSCOPY, BMT AND MYRINGOPLASTY, umbilical hernia repair, CABG 2020 Past Anesthesia/Blood Transfusion Reactions: No Reported Reaction Additional Past Anesthesia/Blood Transfusion Reaction / Comment(s): STATES AFTER LAST EAR SX (11/2013) HAD SORE MUSCLES AND WAS WEAK FOR 3-4 DAYS Past Psychological History: Unable to Obtain Smoking Status: Former smoker Past Alcohol Use History: None Reported Past Drug Use History: Marijuana, Methamphetamine - Past Family History Sister(s) Family Medical History: Cancer Brother(s) Family Medical History: Cancer Additional Family Medical History / Comment(s): brother had heart valve replacement Mother Family Medical History: Chest Pain / Angina, Diabetes Mellitus, Hypertension Father History Unknown: Yes Medications and Allergies Home Medications Medication Instructions Recorded Confirmed Type traMADol HCl [Ultram] 100 mg PO HS 11/04/15 01/13/22 History Baclofen 10 mg PO HS PRN 09/14/16 01/13/22 History rOPINIRole HCL [Requip] 2 mg PO HS 07/21/20 01/13/22 History Clopidogrel [Plavix] 75 mg PO DAILY #30 tab 10/15/21 01/13/22 Rx Diltiazem Cd [Cardizem CD] 120 mg PO DAILY #30 capsule 10/15/21 01/13/22 Rx Metoprolol Tartrate [Lopressor] 50 mg PO BID #60 tab 10/15/21 01/13/22 Rx Pantoprazole [Protonix] 40 mg PO AC-BRKFST #30 tab 10/15/21 01/13/22 Rx Losartan [Cozaar] 25 mg PO DAILY 11/26/21 01/13/22 History Furosemide [Lasix] 40 mg PO BID@0900,1600 30 Days #60 12/01/21 01/13/22 Rx tab Spironolactone [Aldactone] 25 mg PO DAILY 30 Days #30 tab 12/01/21 01/13/22 Rx Aspirin EC [Ecotrin Low Dose] 81 mg PO DAILY 01/13/22 01/13/22 History Atorvastatin [Lipitor] 40 mg PO HS 01/13/22 01/13/22 History Allergies Allergy/AdvReac Type Severity Reaction Status Date / Time cephalexin Allergy Anaphylaxis Verified 01/13/22 12:43 cephalexin monohydrate Allergy Anaphylaxis Verified 01/13/22 12:43 [From Keflex] Sulfa (Sulfonamide Allergy Rash/Hives Verified 01/13/22 12:43 Antibiotics) Physical Exam Vitals: Vital Signs Temp Pulse Resp BP Pulse Ox 01/13/22 15:14 121 H 32 H 140/99 100 01/13/22 13:00 32 H 01/13/22 12:44 97.7 F 161 H 28 H 142/88 78 L Intake and Output 01/13/22 01/13/22 01/13/22 06:59 14:59 22:59 Other: Weight 81.647 kg GENERAL EXAM: Alert, very pleasant 71-year-old female patient, on BiPAP, in mild respiratory distress. HEAD: Normocephalic. EYES: Normal reaction of pupils, equal size. NOSE: Clear with pink turbinates. THROAT: No erythema or exudates. NECK: No masses, patient has JVDs bilaterally CHEST: Crackles at the bases. No rhonchi and no wheezes. Symmetrical chest expansion. CVS: Distant S1 and S2, no S3 gallop, tachycardic, 2/6 systolic murmur thought the precordium. ABDOMEN: Obese, soft, nontender no megaly no rebound. SKIN: No rashes Psychiatric: Normal mood affect and normal mental status examination. CENTRAL NERVOUS SYSTEM: No focal deficits, tone is normal in all 4 extremities. EXTREMITIES: 2+ bipedal edema noted. Good pulses bilaterally. Results - Laboratory Findings CBC and BMP: 01/13/22 13:05 01/13/22 13:05 ABG ABG pH 7.20 (7.35-7.45) L 01/13/22 13:19 ABG pCO2 38 mmHg (35-45) 01/13/22 13:19 ABG pO2 274 mmHg (83-108) H 01/13/22 13:19 ABG O2 Saturation 100.0 % (94-97) H 01/13/22 13:19 PT/INR, D-dimer PT 9.9 sec (9.0-12.0) 01/13/22 13:05 INR 0.9 (<1.2) 01/13/22 13:05 D-Dimer 2.24 mg/L FEU (<0.60) H 01/13/22 13:05 Abnormal lab findings: Abnormal Labs 01/13/22 01/13/22 01/13/22 13:05 13:05 13:05 WBC 22.9 H Hgb 8.6 L Hct 33.0 L MCV 78.0 L MCH 20.4 L MCHC 26.2 L RDW 17.7 H Plt Count 698 H Neutrophils # 9.1 H Lymphocytes # 11.3 H Monocytes # 1.1 H Basophils # 0.3 H D-Dimer 2.24 H ABG pH ABG pO2 ABG HCO3 ABG Total CO2 ABG O2 Saturation Sodium 136 L Carbon Dioxide 11 L Glucose 458 H Plasma Lactic Acid Angel 01/13/22 01/13/22 13:05 13:19 WBC Hgb Hct MCV MCH MCHC RDW Plt Count Neutrophils # Lymphocytes # Monocytes # Basophils # D-Dimer ABG pH 7.20 L ABG pO2 274 H ABG HCO3 15 L ABG Total CO2 16 L ABG O2 Saturation 100.0 H Sodium Carbon Dioxide Glucose Plasma Lactic Acid Angel 11.5 H* - Diagnostic Findings Chest x-ray: image reviewed (As noted in HPI.) Assessment and Plan Assessment: Impression: Acute hypoxic respiratory failure secondary to acute on chronic systolic congestive heart failure Possible community-acquired pneumonia and sepsis however clinically this is felt to be less likely. Hyperglycemia with metabolic lactic acidosis, possible DKA. Ketones are pending. Possible sepsis. Sinus tachycardia. History of non-ST elevation myocardial infarction and history of multivessel coronary artery disease. Previous CABG. History of polysubstance abuse including marijuana and methamphetamine. History of obstructive sleep apnea syndrome, presently on BiPAP. Type 2 diabetes. Benign essential hypertension. Chronic iron deficiency anemia. Recommendation: Admit patient to the ICU Continue BiPAP. Start patient on sodium bicarb infusion Start insulin drip. Avoid fluid boluses, patient may have to be on gentle diuresis. Knowing that the patient has severe LV dysfunction and ejection fraction of 20%. Address hyperglycemia accordingly. Patient was placed on insulin drip. Empiric antibiotics although the possibility of infection is felt to be less likely but not entirely ruled out. Pro-calcitonin level was ordered. In the meantime the patient is on Levaquin. Make sure that the patient is not on any metformin. Patient had previous lactic acidosis secondary to metformin. Address CODE STATUS with the patient in the ER, patient is presently full code. We'll continue to follow. Prognosis is guarded. Time with Patient: Greater than 30
[2022-01-13] MEDS: PANTOPRAZOLE 40 MG/10 ML VIAL IVP SCH (17:19)
--- NOTE | 2022-01-13 17:51 | P.HPIM ---
History of Present Illness H&P Date: 01/13/22 Mark Moore, is a 71-year-old female who presented to [facility] emergency room with a chief complaint of worsening shortness of breath She was evaluated in the emergency room vital examination on presentation revealed a temperature of 97.7 pulse 161 respiration 28 blood pressure 142/88 pulse ox 78% on room air Laboratory data revealed a white blood count of 22.9 hemoglobin 8.6 platelet count 698 sodium 136 potassium 4.8 chloride 104 CO2 11 BUN 8 creatinine 0.89 glucose level was 458 lactic acid was 11.5 BNP 2310 troponin 0.018 coronavirus PCR was negative influenza A and B PCR was negative Testing in the emergency room revealed chest x-ray done in the emergency room revealed evidence of cardiomegaly with by basilar infiltrates and diffuse interstitial pattern correlate for CHF versus diffuse pneumonia Patient was admitted to ICU for further evaluation and treatment, she was started on IV Lasix and IV antibiotics in the emergency room, pulmonary critical care consultation and cardiology consultation were requested. Past medical history is significant for history of coronary artery disease with recent history of coronary artery bypass graft surgery, history of ca rdiomyopathy with decreased ejection fraction to 2025 percent, history of hypertension, history of hyperlipidemia, history of COPD, history of diabetes mellitus, history of obstructive sleep apnea, history of morbid obesity. 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 Poly substance abuse 07/19/21 admitted for Acute delirium History of Any Multi-Drug Resistant Organisms: None Reported Past Surgical History: Cholecystectomy, Hernia Repair, Orthopedic Surgery, Tonsillectomy, Tubal Ligation Additional Past Surgical History / Comment(s): LEFT KNEE ARTHROSCOPY, BMT AND MYRINGOPLASTY, umbilical hernia repair, CABG 2020 Past Anesthesia/Blood Transfusion Reactions: No Reported Reaction Additional Past Anesthesia/Blood Transfusion Reaction / Comment(s): STATES AFTER LAST EAR SX (11/2013) HAD SORE MUSCLES AND WAS WEAK FOR 3-4 DAYS Past Psychological History: Unable to Obtain Smoking Status: Former smoker Past Alcohol Use History: None Reported Past Drug Use History: Marijuana, Methamphetamine - Past Family History Sister(s) Family Medical History: Cancer Brother(s) Family Medical History: Cancer Additional Family Medical History / Comment(s): brother had heart valve replacement Mother Family Medical History: Chest Pain / Angina, Diabetes Mellitus, Hypertension Father History Unknown: Yes Medications and Allergies Home Medications Medication Instructions Recorded Confirmed Type traMADol HCl [Ultram] 100 mg PO HS 11/04/15 01/13/22 History Baclofen 10 mg PO HS PRN 09/14/16 01/13/22 History rOPINIRole HCL [Requip] 2 mg PO HS 07/21/20 01/13/22 History Clopidogrel [Plavix] 75 mg PO DAILY #30 tab 10/15/21 01/13/22 Rx Diltiazem Cd [Cardizem CD] 120 mg PO DAILY #30 capsule 10/15/21 01/13/22 Rx Metoprolol Tartrate [Lopressor] 50 mg PO BID #60 tab 10/15/21 01/13/22 Rx Pantoprazole [Protonix] 40 mg PO AC-BRKFST #30 tab 10/15/21 01/13/22 Rx Losartan [Cozaar] 25 mg PO DAILY 11/26/21 01/13/22 History Furosemide [Lasix] 40 mg PO BID@0900,1600 30 Days #60 12/01/21 01/13/22 Rx tab Spironolactone [Aldactone] 25 mg PO DAILY 30 Days #30 tab 12/01/21 01/13/22 Rx Aspirin EC [Ecotrin Low Dose] 81 mg PO DAILY 01/13/22 01/13/22 History Atorvastatin [Lipitor] 40 mg PO HS 01/13/22 01/13/22 History Allergies Allergy/AdvReac Type Severity Reaction Status Date / Time cephalexin Allergy Anaphylaxis Verified 01/13/22 12:43 cephalexin monohydrate Allergy Anaphylaxis Verified 01/13/22 12:43 [From Keflex] Sulfa (Sulfonamide Allergy Rash/Hives Verified 01/13/22 12:43 Antibiotics) Physical Exam Vitals: Vital Signs Temp Pulse Resp BP Pulse Ox 01/13/22 17:00 97.5 F L 116 H 28 H 111/80 100 01/13/22 15:14 121 H 32 H 140/99 100 01/13/22 13:00 32 H 01/13/22 12:44 97.7 F 161 H 28 H 142/88 78 L Intake and Output 01/13/22 01/13/22 01/13/22 06:59 14:59 22:59 Other: Weight 81.647 kg In general patient is alert and oriented x 3 in no distress HEENT head normocephalic and atraumatic Neck is supple no JVD no goiter no lymphadenopathy no carotid bruit Chest examination is clear to auscultation no crackles no wheezing Cardiac exam reveals regular heart sounds S1 and S2 no gallops no murmurs Abdomen is soft nontender no organomegaly with normal bowel sounds Extremity exam reveals no edema no cyanosis or clubbing Neurological examination reveals no gross focal deficits Results CBC & Chem 7: 01/13/22 13:05 01/13/22 13:05 Labs: Abnormal Lab Results - Last 24 Hours (Table) 01/13/22 01/13/22 01/13/22 Range/Units 13:05 13:05 13:05 WBC 22.9 H (3.8-10.6) k/uL Hgb 8.6 L (11.4-16.0) gm/dL Hct 33.0 L (34.0-46.0) % MCV 78.0 L (80.0-100.0) fL MCH 20.4 L (25.0-35.0) pg MCHC 26.2 L (31.0-37.0) g/dL RDW 17.7 H (11.5-15.5) % Plt Count 698 H (150-450) k/uL Neutrophils # 9.1 H (1.3-7.7) k/uL Lymphocytes # 11.3 H (1.0-4.8) k/uL Monocytes # 1.1 H (0-1.0) k/uL Basophils # 0.3 H (0-0.2) k/uL D-Dimer 2.24 H (<0.60) mg/L FEU ABG pH (7.35-7.45) ABG pO2 (83-108) mmHg ABG HCO3 (21-25) mmol/L ABG Total CO2 (19-24) mmol/L ABG O2 Saturation (94-97) % Sodium 136 L (137-145) mmol/L Carbon Dioxide 11 L (22-30) mmol/L Glucose 458 H (74-99) mg/dL Plasma Lactic Acid Angel (0.7-2.0) mmol/L 01/13/22 01/13/22 01/13/22 Range/Units 13:05 13:19 16:06 WBC (3.8-10.6) k/uL Hgb (11.4-16.0) gm/dL Hct (34.0-46.0) % MCV (80.0-100.0) fL MCH (25.0-35.0) pg MCHC (31.0-37.0) g/dL RDW (11.5-15.5) % Plt Count (150-450) k/uL Neutrophils # (1.3-7.7) k/uL Lymphocytes # (1.0-4.8) k/uL Monocytes # (0-1.0) k/uL Basophils # (0-0.2) k/uL D-Dimer (<0.60) mg/L FEU ABG pH 7.20 L (7.35-7.45) ABG pO2 274 H (83-108) mmHg ABG HCO3 15 L (21-25) mmol/L ABG Total CO2 16 L (19-24) mmol/L ABG O2 Saturation 100.0 H (94-97) % Sodium (137-145) mmol/L Carbon Dioxide (22-30) mmol/L Glucose (74-99) mg/dL Plasma Lactic Acid Angel 11.5 H* 2.6 H* (0.7-2.0) mmol/L Assessment and Plan Plan: Acute hypoxic respiratory failure Acute on chronic systolic congestive heart failure exacerbation Sepsis as evidenced by leukocytosis, elevated lactic acid 11.5, tachycardia and tachypnea on presentation Bilateral basal infiltrate suggestive of possible pneumonia Underlying history of coronary artery disease with recent history of coronary artery bypass graft surgery Underlying history of congestive heart failure with cardiomyopathy ejection fraction 20-25% Underlying history of diabetes mellitus Underlying history of hypertension Underlying history of hyperlipidemia Underlying history of COPD Underlying history of morbid obesity with obstructive sleep apnea At this time patient will be admitted to intensive care unit she would be started on IV antibiotics and insulin drip She was given IV Lasix in the emergency room Cardiology and pulmonary critical care consultations requested Will recheck labs and follow-up in a.m.
[2022-01-13] MEDS ORDERED: PANTOPRAZOLE 40 MG TABLET PO SCH (18:00)
[2022-01-13 18:08] LABS: Glucose,Whole Blood 397 mg/dL (75-99)
[2022-01-13] MEDS ORDERED: INSULIN REGULAR 100 UNIT in SODIUM CHLORIDE 0.9% 100 ML IV SCH (18:15)
[2022-01-13] MEDS: BACLOFEN 10 MG TAB PO PRN (18:41)
[2022-01-13] MEDS: CLOPIDOGREL 75 MG TAB PO SCH (18:41)
[2022-01-13 20:12] LABS: Glucose,Whole Blood 252 mg/dL (75-99)
[2022-01-13] MEDS: traMADol 50 MG TAB PO SCH (20:46)
[2022-01-13] MEDS: ATORVASTATIN 40 MG TAB PO SCH (20:46)
[2022-01-13] MEDS: METOPROLOL TARTRATE 50 MG TAB PO SCH (20:46)
[2022-01-13 20:53] LABS: Glucose,Whole Blood 236 mg/dL (75-99)
[2022-01-13 21:58] LABS: Glucose,Whole Blood 226 mg/dL (75-99)
[2022-01-13 23:00] LABS: Glucose,Whole Blood 257 mg/dL (75-99)
[2022-01-14 00:17] LABS: Glucose,Whole Blood 226 mg/dL (75-99)
[2022-01-14 00:57] LABS: Glucose,Whole Blood 188 mg/dL (75-99)
[2022-01-14 02:04] LABS: Glucose,Whole Blood 146 mg/dL (75-99)
[2022-01-14 02:53] LABS: Glucose,Whole Blood 338 mg/dL (75-99)
[2022-01-14 04:03] LABS: Glucose,Whole Blood 141 mg/dL (75-99)
[2022-01-14 05:58] LABS: Glucose,Whole Blood 146 mg/dL (75-99)
[2022-01-14] MEDS: BACLOFEN 10 MG TAB PO PRN (06:01)
--- NOTE | 2022-01-14 06:23 | XR ---
EXAMINATION TYPE: XR chest 1V portable DATE OF EXAM: 01/14/2022 CLINICAL HISTORY: Difficulty breathing progress study. TECHNIQUE: Single AP portable semiupright view of the chest is obtained. COMPARISON: Chest x-ray from one day earlier and older studies FINDINGS: Overlying sternal wires and mediastinal clips along with left atrial appendage clip are al l redemonstrated. Persistent mild cardiomegaly with increased interstitial markings bilaterally thoug h they are felt slightly improved from one day earlier. No pleural effusion or pneumothorax is seen b ilaterally. Osseous structures are intact. IMPRESSION: Cardiomegaly with persistent but improved interstitial edema and central vascular congest ion suggests resolving CHF exacerbation. Correlate clinically.
[2022-01-14 06:56] LABS: Glucose,Whole Blood 144 mg/dL (75-99)
[2022-01-14] MEDS ORDERED: FUROSEMIDE 10 MG/ML 4 ML VIAL IV STA (07:55)
--- NOTE | 2022-01-14 07:55 | P.CRDCN ---
History of Present Illness Consult date: 01/14/22 History of present illness: History of Present Illness: The patient is a 71-year-old female with a known history of coronary disease, status post CABG in September 2021 severe ischemic cardiomyopathy, left bundle branch block who presented with symptoms of progressive dyspnea and weight gain and was noted to be in CHF. She has not been followed as an outpatient since her bypass and missed her appointment. She was in the hospital early November with similar symptoms. She denies any chest discomfort, dizziness or palpitations. She denies any cough. Her compliance with medication is unclear. She is in sinus mechanism. At the time of her surgery she had SIMPSON to the LAD and radial as a T graft to the first OM. A repeat echocardiogram showed an ejection fraction of 20-25% with mild aortic, mitral and tricuspid regurgitation. She had no evidence of pulmonary hypertension. She had segmental wall motion abnormality involving the anterolateral, anteroapical and anterolateral wall. She continues to be dyspneic this morning after diuresis but feels better. Her compliance with salt is unclear. She was on BiPAP yesterday but now she is on nasal cannula. She has a prior history of polysubstance abuse. On presentation she had hyperglycemia. Her coronary risk factors are positive for hypertension, hyperlipidemia and diabetes. Her medication at home include Aldactone 25 mg daily, metoprolol 50 mg twice a day, Cardizem 120 mg daily, Plavix 75 mg daily, aspirin once a day, Lipitor 40 mg daily and Lasix 40 mg twice a day. Review of Systems: Respiratory: She has a history of dyspnea but no recent wheezing. She has a mild cough GI: She had nausea and vomiting today. No history of peptic ulcer disease. No recent GI bleed. : No hematuria or dysuria. Nervous System: No stroke or seizure. Physical Examination: She is a 71-year-old female alert and oriented no apparent distress. Blood pressure 121/69 with a heart rate in the 90s Head: Normocephalic. Eyes: Sclerae nonicteric. Neck: Good carotid upstroke, no bruit, no jugular venous distention. Lungs: Few crackles at the bases Heart: Regular rate and rhythm, S1-S2, positive S 3. Systolic murmur at the base Abdomen: Soft nontender, positive bowel sounds no organomegaly. Extremities: 1+ edema, intact distal pulses. Labs: EKG: Sinus tachycardia with left bundle branch block and left axis deviation. White blood cell 22.9, hemoglobin 8.6. PH 7.2 BUN 8 and creatinine 0.89. Her plasma lactic acid was 11.5 on presentation and blood sugar 458. Troponin 0.018 and NT proBNP of 2310. Impression: 1. Progressive dyspnea with exacerbation of CHF with known severe ischemic cardiomyopathy, cannot rule out a superimposed lung infection 2. Status post CABG in September 2021 3. History of hyperlipidemia 4. History of noncompliance 5. Diabetes uncontrolled 6. Anemia 7. Prior history of polysubstance abuse Plan: 1. Continue present therapy 2. Give one dose of IV Lasix 3. Follow renal functions 4. Increase physical activity 5. Depending on her progress further recommendations will be made. Thank you for this consult we will follow with you. 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 Poly substance abuse 07/19/21 admitted for Acute delirium History of Any Multi-Drug Resistant Organisms: None Reported Past Surgical History: Cholecystectomy, Hernia Repair, Orthopedic Surgery, Tonsillectomy, Tubal Ligation Additional Past Surgical History / Comment(s): LEFT KNEE ARTHROSCOPY, BMT AND MYRINGOPLASTY, umbilical hernia repair, CABG 2020 Past Anesthesia/Blood Transfusion Reactions: No Reported Reaction Additional Past Anesthesia/Blood Transfusion Reaction / Comment(s): STATES AFTER LAST EAR SX (11/2013) HAD SORE MUSCLES AND WAS WEAK FOR 3-4 DAYS Past Psychological History: Unable to Obtain Smoking Status: Former smoker Past Alcohol Use History: None Reported Past Drug Use History: Marijuana, Methamphetamine - Past Family History Sister(s) Family Medical History: Cancer Brother(s) Family Medical History: Cancer Additional Family Medical History / Comment(s): brother had heart valve replacem ent Mother Family Medical History: Chest Pain / Angina, Diabetes Mellitus, Hypertension Father History Unknown: Yes Medications and Allergies Home Medications Medication Instructions Recorded Confirmed Type traMADol HCl [Ultram] 100 mg PO HS 11/04/15 01/13/22 History Baclofen 10 mg PO HS PRN 09/14/16 01/13/22 History rOPINIRole HCL [Requip] 2 mg PO HS 07/21/20 01/13/22 History Clopidogrel [Plavix] 75 mg PO DAILY #30 tab 10/15/21 01/13/22 Rx Diltiazem Cd [Cardizem CD] 120 mg PO DAILY #30 capsule 10/15/21 01/13/22 Rx Metoprolol Tartrate [Lopressor] 50 mg PO BID #60 tab 10/15/21 01/13/22 Rx Pantoprazole [Protonix] 40 mg PO AC-BRKFST #30 tab 10/15/21 01/13/22 Rx Losartan [Cozaar] 25 mg PO DAILY 11/26/21 01/13/22 History Furosemide [Lasix] 40 mg PO BID@0900,1600 30 Days #60 12/01/21 01/13/22 Rx tab Spironolactone [Aldactone] 25 mg PO DAILY 30 Days #30 tab 12/01/21 01/13/22 Rx Aspirin EC [Ecotrin Low Dose] 81 mg PO DAILY 01/13/22 01/13/22 History Atorvastatin [Lipitor] 40 mg PO HS 01/13/22 01/13/22 History Allergies Allergy/AdvReac Type Severity Reaction Status Date / Time cephalexin Allergy Anaphylaxis Verified 01/13/22 12:43 cephalexin monohydrate Allergy Anaphylaxis Verified 01/13/22 12:43 [From Keflex] Sulfa (Sulfonamide Allergy Rash/Hives Verified 01/13/22 12:43 Antibiotics) Physical Exam Vitals: Vital Signs Temp Pulse Resp BP BP Pulse Ox 01/14/22 07:00 101 H 20 121/69 90 L 01/14/22 06:00 95 23 112/73 95 01/14/22 05:00 92 22 109/73 97 01/14/22 04:00 98.4 F 92 24 116/71 95 01/14/22 03:00 89 21 110/68 01/14/22 02:00 91 23 106/66 97 01/14/22 01:00 92 20 103/68 98 01/14/22 00:00 98.3 F 96 18 112/69 98 01/13/22 23:00 110 H 23 104/68 96 01/13/22 22:00 115 H 21 109/77 98 01/13/22 21:00 118 H 18 110/82 98 01/13/22 20:50 116 H 16 110/82 99 01/13/22 20:44 97 01/13/22 20:40 114 H 20 110/82 99 01/13/22 20:30 118 H 27 H 110/82 99 01/13/22 20:20 122 H 13 110/82 99 01/13/22 20:10 117 H 21 110/82 98 01/13/22 20:00 98.1 F 118 H 25 H 95/72 98 01/13/22 19:50 121 H 16 95/72 99 01/13/22 19:40 114 H 17 95/72 99 01/13/22 19:30 117 H 20 95/72 98 01/13/22 19:20 116 H 22 95/72 99 01/13/22 19:10 121 H 22 95/72 100 01/13/22 18:10 98.2 F 118 H 21 122/85 97 01/13/22 17:00 97.5 F L 116 H 28 H 111/80 100 01/13/22 16:50 20 110/82 99 01/13/22 15:14 121 H 32 H 140/99 100 01/13/22 13:00 32 H 01/13/22 12:44 97.7 F 161 H 28 H 142/88 78 L Intake and Output 01/13/22 01/14/22 01/14/22 22:59 06:59 14:59 Intake Total 227.574 415.841 50 Output Total 2024 390 40 Balance -1797.426 25.841 10 Intake: IV 200 400 50 Dextrose 5% in Water 1, 200 400 50 000 ml @ 50 mls/hr IV . Q23H [facility] with Sodium Bicarb (1 Meq/ml) 150 ml Rx#:[id number] Intake, IV Titration 27.574 15.841 Amount Insulin Regular 100 unit 27.574 15.841 In Sodium Chloride 0.9% 100 ml @ Per Protocol IV .Q0M [facility] Rx#:[id number] Output: Urine 2024 390 40 Other: Voiding Method Indwelling Catheter Indwelling Catheter Weight 81.647 kg 98.7 kg Results 01/13/22 13:05 01/13/22 13:05 Cardiac Enzymes 01/13/22 01/13/22 Range/Units 13:05 13:05 AST 16 (14-36) U/L Troponin I 0.018 (0.000-0.034) ng/mL Coagulation 01/13/22 Range/Units 13:05 PT 9.9 (9.0-12.0) sec APTT 24.7 (22.0-30.0) sec CBC 01/13/22 Range/Units 13:05 WBC 22.9 H (3.8-10.6) k/uL RBC 4.24 (3.80-5.40) m/uL Hgb 8.6 L (11.4-16.0) gm/dL Hct 33.0 L (34.0-46.0) % Plt Count 698 H (150-450) k/uL Comprehensive Metabolic Panel 01/13/22 Range/Units 13:05 Sodium 136 L (137-145) mmol/L Potassium 4.8 (3.5-5.1) mmol/L Chloride 104 (98-107) mmol/L Carbon Dioxide 11 L (22-30) mmol/L BUN 8 (7-17) mg/dL Creatinine 0.89 (0.52-1.04) mg/dL Glucose 458 H (74-99) mg/dL Calcium 9.0 (8.4-10.2) mg/dL AST 16 (14-36) U/L ALT 12 (4-34) U/L Alkaline Phosphatase 107 (38-126) U/L Total Protein 7.5 (6.3-8.2) g/dL Albumin 4.1 (3.5-5.0) g/dL Current Medications Generic Name Dose Route Start Last Admin Trade Name Freq PRN Reason Stop Dose Admin Aspirin 81 mg 01/14/22 09:00 Aspirin 81 Mg PO DAILY [facility] Atorvastatin Calcium 40 mg 01/13/22 21:00 01/13/22 20:46 Atorvastatin 40 Mg Tab PO 40 mg HS [facility] Administration Baclofen 10 mg 01/13/22 17:49 01/14/22 06:01 Baclofen 10 Mg Tab PO 10 mg HS PRN Administration Pain Clopidogrel Bisulfate 75 mg 01/13/22 18:00 01/13/22 18:41 Clopidogrel 75 Mg Tab PO 75 mg DAILY [facility] Administration Diltiazem HCl 120 mg 01/14/22 09:00 Diltiazem Cd 120 Mg Cap.Er.24h PO DAILY [facility] Furosemide 40 mg 01/14/22 09:00 Furosemide 40 Mg Tab PO BID@0900,1600 [facility] Sodium Bicarbonate 150 ml/ 1,150 mls @ 50 mls/hr 01/13/22 16:30 01/13/22 18:09 Dextrose/Water IV 50 mls/hr .Q23H [facility] Administration Insulin Human Regular 100 unit 101 mls @ 0 mls/hr 01/13/22 18:15 01/14/22 02:04 / Sodium Chloride IV 2.5 units/hr .Q0M [facility] 2.525 mls/hr Titration Protocol Per Protocol Losartan Potassium 25 mg 01/14/22 09:00 Losartan 25 Mg Tab PO DAILY [facility] Metoprolol Tartrate 50 mg 01/13/22 21:00 01/13/22 20:46 Metoprolol Tartrate 50 Mg Tab PO 50 mg BID [facility]IM[facility] Administration Naloxone HCl 0.2 mg 01/13/22 16:07 Naloxone 0.4 Mg/Ml 1 Ml Vial IV Q2M PRN Opioid Reversal Pantoprazole Sodium 40 mg 01/13/22 17:00 01/13/22 17:19 Pantoprazole 40 Mg/10 Ml Vial IVP 40 mg DAILY DIMA Administration Ropinirole HCl 2 mg 01/13/22 21:00 01/13/22 20:46 Ropinirole Hcl 1 Mg Tab PO 2 mg HS DIMA Administration Spironolactone 25 mg 01/14/22 09:00 Spironolactone 25 Mg Tab PO DAILY DIMA Tramadol HCl 100 mg 01/13/22 21:00 01/13/22 20:46 Tramadol 50 Mg Tab PO 100 mg HS DIMA Administration Intake and Output 01/13/22 01/14/22 01/14/22 22:59 06:59 14:59 Intake Total 227.574 415.841 50 Output Total 2025 390 40 Balance -1797.426 25.841 10 Intake: IV 200 400 50 Dextrose 5% in Water 1, 200 400 50 000 ml @ 50 mls/hr IV . Q23H [facility] with Sodium Bicarb (1 Meq/ml) 150 ml Rx#:[id number] Intake, IV Titration 27.574 15.841 Amount Insulin Regular 100 unit 27.574 15.841 In Sodium Chloride 0.9% 100 ml @ Per Protocol IV .Q0M [facility] Rx#:[id number] Output: Urine 5 390 40 Other: Voiding Method Indwelling Catheter Indwelling Catheter Weight 81.647 kg 98.7 kg 01/13/22 13:05 01/13/22 13:05
[2022-01-14 07:56] LABS: Anisocytosis Slight; Basophils % (A) 0 %; Eosinophils # (A) 0.2 k/uL (0-0.7); Eosinophils % (A) 3 %; HGB 7.5 gm/dL (11.4-16.0); Hypochromasia Marked; Lymphocytes % (A) 22 %; MCH 20.5 pg (25.0-35.0); MCHC 27.6 g/dL (31.0-37.0); MCV 74.4 fL (80.0-100.0); Mean Platelet Volume 7.7; Microcytosis Moderate; Monocytes # (A) 0.4 k/uL (0-1.0); Monocytes % (A) 4 %; Neutrophils # (A) 6.3 k/uL (1.3-7.7); Neutrophils % (A) 69 %; Platelet Count 456 k/uL (150-450); Poikilocytosis Slight; RBC 3.63 m/uL (3.80-5.40); RDW 17.9 % (11.5-15.5)
[2022-01-14 08:03] LABS: ALT 12 U/L (4-34); AST 20 U/L (14-36); African American GFR (CKD) >90 (>60 ml/min/1.73 sqM); Albumin 3.5 g/dL (3.5-5.0); Alkaline Phosphatase 77 U/L (38-126); Anion Gap 8 mmol/L; Blood Urea Nitrogen 11 mg/dL (7-17); Calcium 8.5 mg/dL (8.4-10.2); Carbon Dioxide 24 mmol/L (22-30); Chloride 102 mmol/L (98-107); Glucose 191 mg/dL (74-99); Non-African American GFR(CKD) >90 (>60 ml/min/1.73 sqM); Potassium 4.3 mmol/L (3.5-5.1); Sodium 134 mmol/L (137-145); Total Bilirubin 0.5 mg/dL (0.2-1.3); Total Protein 6.8 g/dL (6.3-8.2)
[2022-01-14 08:12] LABS: Glucose,Whole Blood 251 mg/dL (75-99)
[2022-01-14] MEDS: ASPIRIN 81 MG PO SCH (08:18)
[2022-01-14] MEDS: SPIRONOLACTONE 25 MG TAB PO SCH (08:18)
[2022-01-14] MEDS: PANTOPRAZOLE 40 MG/10 ML VIAL IVP SCH (08:18)
[2022-01-14] MEDS: METOPROLOL TARTRATE 50 MG TAB PO SCH ×2 (08:18→20:27)
[2022-01-14] MEDS: CLOPIDOGREL 75 MG TAB PO SCH (08:18)
[2022-01-14] MEDS: LOSARTAN 25 MG TAB PO SCH (08:19)
[2022-01-14] MEDS: DILTIAZEM CD 120 MG CAP.ER.24H PO SCH (08:19)
[2022-01-14] MEDS: FUROSEMIDE 40 MG TAB PO SCH ×2 (09:02→16:16)
[2022-01-14] MEDS: INSULIN DETEMIR (LEVEMIR) 100 UNIT/ML SYR SQ SCH (09:26)
--- NOTE | 2022-01-14 09:53 | P.PN ---
Subjective Progress Note Date: 01/14/22 Mark Moore, is a 71-year-old female who presented to [facility] emergency room with a chief complaint of worsening shortness of breath She was evaluated in the emergency room vital examination on presentation revealed a temperature of 97.7 pulse 161 respiration 28 blood pressure 142/88 pulse ox 78% on room air Laboratory data revealed a white blood count of 22.9 hemoglobin 8.6 platelet count 698 sodium 136 potassium 4.8 chloride 104 CO2 11 BUN 8 creatinine 0.89 glucose level was 458 lactic acid was 11.5 BNP 2310 troponin 0.018 coronavirus PCR was negative influenza A and B PCR was negative Testing in the emergency room revealed chest x-ray done in the emergency room revealed evidence of cardiomegaly with by basilar infiltrates and diffuse interstitial pattern correlate for CHF versus diffuse pneumonia Patient was admitted to ICU for further evaluation and treatment, she was started on IV Lasix and IV antibiotics in the emergency room, pulmonary critical care consultation and cardiology consultation were requested. Past medical history is significant for history of coronary artery disease with recent history of coronary artery bypass graft surgery, history of cardiomyo yaya with decreased ejection fraction to 2025 percent, history of hypertension, history of hyperlipidemia, history of COPD, history of diabetes mellitus, history of obstructive sleep apnea, history of morbid obesity. On 01/14/2022 patient is alert and oriented 3. Patient feels significantly im proved. Patient's white blood cell improving to 9.0 lactic acid down to 1.8. Patient did receive additional dose of IV Lasix the same per cardiology per nursing staff critical care recommendations to DC metformin upon discharge. Patient's edema improved. Patient has been transitioned to sliding scale coverage insulin at this time patient reports minimal shortness of breath. Patient denies nausea vomiting or diarrhea. Patient denies any urinary burning or frequency Objective - Vital Signs Vital signs: Vital Signs Temp 98.1 F 01/14/22 08:00 Pulse 98 01/14/22 09:00 Resp 19 01/14/22 09:00 BP 106/62 01/14/22 09:00 Pulse Ox 91 L 01/14/22 09:00 Intake & Output 01/13/22 01/14/22 01/14/22 18:59 06:59 18:59 Intake Total 50 593.415 265.445 Output Total 1400 1015 590 Balance -1350 -421.585 -324.555 Weight 81.647 kg 98.7 kg Intake: IV 50 550 100 Dextrose 5% in Water 1, 50 550 100 000 ml @ 50 mls/hr IV . Q23H DIMA with Sodium Bicarb (1 Meq/ml) 150 ml Rx#:[id number] Intake, IV Titration 43.415 15.445 Amount Insulin Regular 100 unit 43.415 15.445 In Sodium Chloride 0.9% 100 ml @ Per Protocol IV .Q0M DIMA Rx#:[id number] Oral 150 Output: Urine 1400 1015 590 Other: Voiding Method Indwelling Catheter Indwelling Catheter - Exam In general patient is alert and oriented x 3 in no distress HEENT head normocephalic and atraumatic Neck is supple no JVD no goiter no lymphadenopathy no carotid bruit Chest examination is clear to auscultation no crackles no wheezing Cardiac exam reveals regular heart sounds S1 and S2 no gallops no murmurs Abdomen is soft nontender no organomegaly with normal bowel sounds Extremity exam reveals no edema no cyanosis or clubbing Neurological examination reveals no gross focal deficits - Labs CBC & Chem 7: 01/14/22 07:23 01/14/22 07:23 Labs: Abnormal Lab Results - Last 24 Hours (Table) 01/13/22 01/13/22 01/13/22 Range/Units 13:05 13:05 13:05 WBC 22.9 H (3.8-10.6) k/uL RBC (3.80-5.40) m/uL Hgb 8.6 L (11.4-16.0) gm/dL Hct 33.0 L (34.0-46.0) % MCV 78.0 L (80.0-100.0) fL MCH 20.4 L (25.0-35.0) pg MCHC 26.2 L (31.0-37.0) g/dL RDW 17.7 H (11.5-15.5) % Plt Count 698 H (150-450) k/uL Neutrophils # 9.1 H (1.3-7.7) k/uL Lymphocytes # 11.3 H (1.0-4.8) k/uL Monocytes # 1.1 H (0-1.0) k/uL Basophils # 0.3 H (0-0.2) k/uL D-Dimer 2.24 H (<0.60) mg/L FEU ABG pH (7.35-7.45) ABG pO2 (83-108) mmHg ABG HCO3 (21-25) mmol/L ABG Total CO2 (19-24) mmol/L ABG O2 Saturation (94-97) % Sodium 136 L (137-145) mmol/L Carbon Dioxide 11 L (22-30) mmol/L Glucose 458 H (74-99) mg/dL POC Glucose (mg/dL) (75-99) mg/dL Plasma Lactic Acid Angel (0.7-2.0) mmol/L Procalcitonin (0.02-0.09) ng/mL 01/13/22 01/13/22 01/13/22 Range/Units 13:05 13:09 13:19 WBC (3.8-10.6) k/uL RBC (3.80-5.40) m/uL Hgb (11.4-16.0) gm/dL Hct (34.0-46.0) % MCV (80.0-100.0) fL MCH (25.0-35.0) pg MCHC (31.0-37.0) g/dL RDW (11.5-15.5) % Plt Count (150-450) k/uL Neutrophils # (1.3-7.7) k/uL Lymphocytes # (1.0-4.8) k/uL Monocytes # (0-1.0) k/uL Basophils # (0-0.2) k/uL D-Dimer (<0.60) mg/L FEU ABG pH 7.20 L (7.35-7.45) ABG pO2 274 H (83-108) mmHg ABG HCO3 15 L (21-25) mmol/L ABG Total CO2 16 L (19-24) mmol/L ABG O2 Saturation 100.0 H (94-97) % Sodium (137-145) mmol/L Carbon Dioxide (22-30) mmol/L Glucose (74-99) mg/dL POC Glucose (mg/dL) (75-99) mg/dL Plasma Lactic Acid Angel 11.5 H* (0.7-2.0) mmol/L Procalcitonin 0.10 H (0.02-0.09) ng/mL 01/13/22 01/13/22 01/13/22 Range/Units 16:06 18:06 19:16 WBC (3.8-10.6) k/uL RBC (3.80-5.40) m/uL Hgb (11.4-16.0) gm/dL Hct (34.0-46.0) % MCV (80.0-100.0) fL MCH (25.0-35.0) pg MCHC (31.0-37.0) g/dL RDW (11.5-15.5) % Plt Count (150-450) k/uL Neutrophils # (1.3-7.7) k/uL Lymphocytes # (1.0-4.8) k/uL Monocytes # (0-1.0) k/uL Basophils # (0-0.2) k/uL D-Dimer (<0.60) mg/L FEU ABG pH (7.35-7.45) ABG pO2 (83-108) mmHg ABG HCO3 (21-25) mmol/L ABG Total CO2 (19-24) mmol/L ABG O2 Saturation (94-97) % Sodium (137-145) mmol/L Carbon Dioxide (22-30) mmol/L Glucose (74-99) mg/dL POC Glucose (mg/dL) 397 H (75-99) mg/dL Plasma Lactic Acid Angel 2.6 H* 3.4 H* (0.7-2.0) mmol/L Procalcitonin (0.02-0.09) ng/mL 01/13/22 01/13/22 01/13/22 Range/Units 20:10 20:52 21:44 WBC (3.8-10.6) k/uL RBC (3.80-5.40) m/uL Hgb (11.4-16.0) gm/dL Hct (34.0-46.0) % MCV (80.0-100.0) fL MCH (25.0-35.0) pg MCHC (31.0-37.0) g/dL RDW (11.5-15.5) % Plt Count (150-450) k/uL Neutrophils # (1.3-7.7) k/uL Lymphocytes # (1.0-4.8) k/uL Monocytes # (0-1.0) k/uL Basophils # (0-0.2) k/uL D-Dimer (<0.60) mg/L FEU ABG pH (7.35-7.45) ABG pO2 (83-108) mmHg ABG HCO3 (21-25) mmol/L ABG Total CO2 (19-24) mmol/L ABG O2 Saturation (94-97) % Sodium (137-145) mmol/L Carbon Dioxide (22-30) mmol/L Glucose (74-99) mg/dL POC Glucose (mg/dL) 252 H 236 H (75-99) mg/dL Plasma Lactic Acid Angel 3.2 H* (0.7-2.0) mmol/L Procalcitonin (0.02-0.09) ng/mL 01/13/22 01/13/22 01/14/22 Range/Units 21:56 22:58 00:15 WBC (3.8-10.6) k/uL RBC (3.80-5.40) m/uL Hgb (11.4-16.0) gm/dL Hct (34.0-46.0) % MCV (80.0-100.0) fL MCH (25.0-35.0) pg MCHC (31.0-37.0) g/dL RDW (11.5-15.5) % Plt Count (150-450) k/uL Neutrophils # (1.3-7.7) k/uL Lymphocytes # (1.0-4.8) k/uL Monocytes # (0-1.0) k/uL Basophils # (0-0.2) k/uL D-Dimer (<0.60) mg/L FEU ABG pH (7.35-7.45) ABG pO2 (83-108) mmHg ABG HCO3 (21-25) mmol/L ABG Total CO2 (19-24) mmol/L ABG O2 Saturation (94-97) % Sodium (137-145) mmol/L Carbon Dioxide (22-30) mmol/L Glucose (74-99) mg/dL POC Glucose (mg/dL) 226 H 257 H 226 H (75-99) mg/dL Plasma Lactic Acid Angel (0.7-2.0) mmol/L Procalcitonin (0.02-0.09) ng/mL 01/14/22 01/14/22 01/14/22 Range/Units 00:55 02:03 02:51 WBC (3.8-10.6) k/uL RBC (3.80-5.40) m/uL Hgb (11.4-16.0) gm/dL Hct (34.0-46.0) % MCV (80.0-100.0) fL MCH (25.0-35.0) pg MCHC (31.0-37.0) g/dL RDW (11.5-15.5) % Plt Count (150-450) k/uL Neutrophils # (1.3-7.7) k/uL Lymphocytes # (1.0-4.8) k/uL Monocytes # (0-1.0) k/uL Basophils # (0-0.2) k/uL D-Dimer (<0.60) mg/L FEU ABG pH (7.35-7.45) ABG pO2 (83-108) mmHg ABG HCO3 (21-25) mmol/L ABG Total CO2 (19-24) mmol/L ABG O2 Saturation (94-97) % Sodium (137-145) mmol/L Carbon Dioxide (22-30) mmol/L Glucose (74-99) mg/dL POC Glucose (mg/dL) 188 H 146 H 338 H (75-99) mg/dL Plasma Lactic Acid Angel (0.7-2.0) mmol/L Procalcitonin (0.02-0.09) ng/mL 01/14/22 01/14/22 01/14/22 Range/Units 04:01 05:56 06:55 WBC (3.8-10.6) k/uL RBC (3.80-5.40) m/uL Hgb (11.4-16.0) gm/dL Hct (34.0-46.0) % MCV (80.0-100.0) fL MCH (25.0-35.0) pg MCHC (31.0-37.0) g/dL RDW (11.5-15.5) % Plt Count (150-450) k/uL Neutrophils # (1.3-7.7) k/uL Lymphocytes # (1.0-4.8) k/uL Monocytes # (0-1.0) k/uL Basophils # (0-0.2) k/uL D-Dimer (<0.60) mg/L FEU ABG pH (7.35-7.45) ABG pO2 (83-108) mmHg ABG HCO3 (21-25) mmol/L ABG Total CO2 (19-24) mmol/L ABG O2 Saturation (94-97) % Sodium (137-145) mmol/L Carbon Dioxide (22-30) mmol/L Glucose (74-99) mg/dL POC Glucose (mg/dL) 141 H 146 H 144 H (75-99) mg/dL Plasma Lactic Acid Angel (0.7-2.0) mmol/L Procalcitonin (0.02-0.09) ng/mL 01/14/22 01/14/22 01/14/22 Range/Units 07:23 07:23 08:10 WBC (3.8-10.6) k/uL RBC 3.63 L (3.80-5.40) m/uL Hgb 7.5 L (11.4-16.0) gm/dL Hct 27.0 L (34.0-46.0) % MCV 74.4 L (80.0-100.0) fL MCH 20.5 L (25.0-35.0) pg MCHC 27.6 L (31.0-37.0) g/dL RDW 17.9 H (11.5-15.5) % Plt Count 456 H (150-450) k/uL Neutrophils # (1.3-7.7) k/uL Lymphocytes # (1.0-4.8) k/uL Monocytes # (0-1.0) k/uL Basophils # (0-0.2) k/uL D-Dimer (<0.60) mg/L FEU ABG pH (7.35-7.45) ABG pO2 (83-108) mmHg ABG HCO3 (21-25) mmol/L ABG Total CO2 (19-24) mmol/L ABG O2 Saturation (94-97) % Sodium 134 L (137-145) mmol/L Carbon Dioxide (22-30) mmol/L Glucose 191 H (74-99) mg/dL POC Glucose (mg/dL) 251 H (75-99) mg/dL Plasma Lactic Acid Angel (0.7-2.0) mmol/L Procalcitonin (0.02-0.09) ng/mL Assessment and Plan Plan: Acute hypoxic respiratory failure Acute on chronic systolic congestive heart failure exacerbation Sepsis as evidenced by leukocytosis, elevated lactic acid 11.5, tachycardia and tachypnea on presentation Bilateral basal infiltrate suggestive of possible pneumonia Underlying history of coronary artery disease with recent history of coronary artery bypass graft surgery Underlying history of congestive heart failure with cardiomyopathy ejection fraction 20-25% Underlying history of diabetes mellitus Underlying history of hypertension Underlying history of hyperlipidemia Underlying history of COPD Underlying history of morbid obesity with obstructive sleep apnea Patient likely will be transferred out of the ICU today 01/14/2022 received additional dose of IV Lasix Recommendations to DC metformin upon discharge
[2022-01-14 09:56] LABS: Appearance,Urine Clear (Clear); Bilirubin,Urine Negative (Negative); Blood,Urine Negative (Negative); Color,Urine Colorless; Glucose,Urine (UA) Negative (Negative); Ketones,Urine Negative (Negative); Leukocyte Esterase,Urine Trace (Negative); Mucus,Urine Rare /hpf; Nitrite,Urine Negative (Negative); PH, Urine 6.5 (5.0-8.0); Protein,Urine Negative (Negative); RBC,Urine 2 /hpf (0-5); Specific Gravity,Urine 1.006 (1.001-1.035); Urobilinogen,Urine <2.0 mg/dL (<2.0); WBC,Urine 6 /hpf (0-5)
--- NOTE | 2022-01-14 10:58 | P.PN ---
Subjective Progress Note Date: 01/14/22 Principal diagnosis: Acute hypoxic respiratory failure secondary to acute on chronic systolic congestive heart failure This is a 71-year-old female, known history of multiple medical problems including cardiomyopathy and LV dysfunction, obesity, obstructive sleep apnea syndrome, chronic systolic congestive heart failure and LV dysfunction, ejection fraction is normally in the range of 20-25%. Patient was last seen by us on consultation in early November, and at that time she was treated mostly for congestive heart failure. Patient is also known to have history of coronary artery disease, previous off pump bypass surgery with SIMPSON to LAD and a T graft left radial graft to obtuse marginal and intermediate coronary artery. Again she has clearly previous history of LV dysfunction with ejection fraction of 20- 25%. Patient is also known to have history of hypertension, dyslipidemia, diabetes and COPD. Patient came into the ER today in severe respiratory distress, chest x-ray is showing evidence of interstitial edema, unable to rule out underlying pneumonia although the clinical history suggests no pneumonia based on her symptoms. Patient was hyperglycemic, metabolically acidotic, lactic acid is about 11. And she required the placement on BiPAP. Presently on IPAP of 14 and EPAP of 6. ABG showed a pO2 of 274 pCO2 of 38 pH of 7.20. Hence I cut down her FiO2 from 80% to 60%. CBC showed WBC count of 22.9 hemoglobin is 8.6. D-dimer of 2.24. Renal profile was normal however her bicarb was noted to be low at 11 with anion gap of 21. Ketones are pending. But her blood sugar today is 458. BNP level was 2310. Patient tested negative for amaro virus, i nfluenza. I saw this patient in the ER, I recommended a sodium bicarb drip, insulin drip for hyperglycemia, she is already on Levaquin empirically, and I'm making arrangements for the patient to be admitted to the ICU. The patient was reevaluated today on 01/14/22, remains in the ICU, but she is do ing much better today compared to yesterday. Her metabolic acidosis has resolved. Her blood sugar is better controlled. Patient is now on room air, and she is not in any distress. Found out today that the patient was on metformin and considering her presentation of severe metabolic acidosis and lactic acidosis, I believe this is metformin induced unless for otherwise. Patient had a relatively unremarkable pro calcitonin level. Hence no need for further antibiotics. Her lactic acid is down to 1.8 today. Electrolytes are relatively unremarkable. And her renal profile is also normal. Her urinalysis showed no evidence of infection and no evidence of ketones in the urine. Again the only explanation to her presentation of acute metabolic acidosis and lactic acidosis is the fact that the patient was on metformin. I am recommending that the patient should not go back on metformin upon discharge Objective - Vital Signs Vital signs: Vital Signs Temp 98.1 F 01/14/22 08:00 Pulse 98 01/14/22 09:00 Resp 19 01/14/22 09:00 BP 106/62 01/14/22 09:00 Pulse Ox 91 L 01/14/22 09:00 Intake & Output 01/13/22 01/14/22 01/14/22 18:59 06:59 18:59 Intake Total 50 593.415 265.445 Output Total 1400 1015 590 Balance -1350 -421.585 -324.555 Weight 81.647 kg 98.7 kg Intake: IV 50 550 100 Dextrose 5% in Water 1, 50 550 100 000 ml @ 50 mls/hr IV . Q23H DIMA with Sodium Bicarb (1 Meq/ml) 150 ml Rx#:[id number] Intake, IV Titration 43.415 15.445 Amount Insulin Regular 100 unit 43.415 15.445 In Sodium Chloride 0.9% 100 ml @ Per Protocol IV .Q0M DIMA Rx#:[id number] Oral 150 Output: Urine 1400 1015 590 Other: Voiding Method Indwelling Catheter Indwelling Catheter - Exam GENERAL EXAM: Alert, very pleasant 71-year-old female patient, on room air, not in any distress. HEAD: Normocephalic. EYES: Normal reaction of pupils, equal size. NOSE: Clear with pink turbinates. THROAT: No erythema or exudates. NECK: No masses, patient has JVDs bilaterally CHEST: Diminished breath sounds at the bases no crackles or rhonchi or wheezes. CVS: Distant S1 and S2, no S3 gallop, 2/6 systolic murmur thought the precordium. ABDOMEN: Obese, soft, nontender no megaly no rebound. SKIN: No rashes Psychiatric: Normal mood affect and normal mental status examination. CENTRAL NERVOUS SYSTEM: No focal deficits, tone is normal in all 4 extremities. EXTREMITIES: 1+ bipedal edema noted. Good pulses bilaterally. - Labs CBC & Chem 7: 01/14/22 07:23 01/14/22 07:23 Labs: Abnormal Lab Results - Last 24 Hours (Table) 01/13/22 01/13/22 01/13/22 Range/Units 13:05 13:05 13:05 WBC 22.9 H (3.8-10.6) k/uL RBC (3.80-5.40) m/uL Hgb 8.6 L (11.4-16.0) gm/dL Hct 33.0 L (34.0-46.0) % MCV 78.0 L (80.0-100.0) fL MCH 20.4 L (25.0-35.0) pg MCHC 26.2 L (31.0-37.0) g/dL RDW 17.7 H (11.5-15.5) % Plt Count 698 H (150-450) k/uL Neutrophils # 9.1 H (1.3-7.7) k/uL Lymphocytes # 11.3 H (1.0-4.8) k/uL Monocytes # 1.1 H (0-1.0) k/uL Basophils # 0.3 H (0-0.2) k/uL D-Dimer 2.24 H (<0.60) mg/L FEU ABG pH (7.35-7.45) ABG pO2 (83-108) mmHg ABG HCO3 (21-25) mmol/L ABG Total CO2 (19-24) mmol/L ABG O2 Saturation (94-97) % Sodium 136 L (137-145) mmol/L Carbon Dioxide 11 L (22-30) mmol/L Glucose 458 H (74-99) mg/dL POC Glucose (mg/dL) (75-99) mg/dL Hemoglobin A1c (0.0-6.0) % Plasma Lactic Acid Angel (0.7-2.0) mmol/L Procalcitonin (0.02-0.09) ng/mL Ur Leukocyte Esterase (Negative) Urine WBC (0-5) /hpf Urine Mucus (None) /hpf 01/13/22 01/13/22 01/13/22 Range/Units 13:05 13:09 13:19 WBC (3.8-10.6) k/uL RBC (3.80-5.40) m/uL Hgb (11.4-16.0) gm/dL Hct (34.0-46.0) % MCV (80.0-100.0) fL MCH (25.0-35.0) pg MCHC (31.0-37.0) g/dL RDW (11.5-15.5) % Plt Count (150-450) k/uL Neutrophils # (1.3-7.7) k/uL Lymphocytes # (1.0-4.8) k/uL Monocytes # (0-1.0) k/uL Basophils # (0-0.2) k/uL D-Dimer (<0.60) mg/L FEU ABG pH 7.20 L (7.35-7.45) ABG pO2 274 H (83-108) mmHg ABG HCO3 15 L (21-25) mmol/L ABG Total CO2 16 L (19-24) mmol/L ABG O2 Saturation 100.0 H (94-97) % Sodium (137-145) mmol/L Carbon Dioxide (22-30) mmol/L Glucose (74-99) mg/dL POC Glucose (mg/dL) (75-99) mg/dL Hemoglobin A1c (0.0-6.0) % Plasma Lactic Acid Angel 11.5 H* (0.7-2.0) mmol/L Procalcitonin 0.10 H (0.02-0.09) ng/mL Ur Leukocyte Esterase (Negative) Urine WBC (0-5) /hpf Urine Mucus (None) /hpf 01/13/22 01/13/22 01/13/22 Range/Units 16:06 18:06 19:16 WBC (3.8-10.6) k/uL RBC (3.80-5.40) m/uL Hgb (11.4-16.0) gm/dL Hct (34.0-46.0) % MCV (80.0-100.0) fL MCH (25.0-35.0) pg MCHC (31.0-37.0) g/dL RDW (11.5-15.5) % Plt Count (150-450) k/uL Neutrophils # (1.3-7.7) k/uL Lymphocytes # (1.0-4.8) k/uL Monocytes # (0-1.0) k/uL Basophils # (0-0.2) k/uL D-Dimer (<0.60) mg/L FEU ABG pH (7.35-7.45) ABG pO2 (83-108) mmHg ABG HCO3 (21-25) mmol/L ABG Total CO2 (19-24) mmol/L ABG O2 Saturation (94-97) % Sodium (137-145) mmol/L Carbon Dioxide (22-30) mmol/L Glucose (74-99) mg/dL POC Glucose (mg/dL) 397 H (75-99) mg/dL Hemoglobin A1c (0.0-6.0) % Plasma Lactic Acid Angel 2.6 H* 3.4 H* (0.7-2.0) mmol/L Procalcitonin (0.02-0.09) ng/mL Ur Leukocyte Esterase (Negative) Urine WBC (0-5) /hpf Urine Mucus (None) /hpf 01/13/22 01/13/22 01/13/22 Range/Units 20:10 20:52 21:44 WBC (3.8-10.6) k/uL RBC (3.80-5.40) m/uL Hgb (11.4-16.0) gm/dL Hct (34.0-46.0) % MCV (80.0-100.0) fL MCH (25.0-35.0) pg MCHC (31.0-37.0) g/dL RDW (11.5-15.5) % Plt Count (150-450) k/uL Neutrophils # (1.3-7.7) k/uL Lymphocytes # (1.0-4.8) k/uL Monocytes # (0-1.0) k/uL Basophils # (0-0.2) k/uL D-Dimer (<0.60) mg/L FEU ABG pH (7.35-7.45) ABG pO2 (83-108) mmHg ABG HCO3 (21-25) mmol/L ABG Total CO2 (19-24) mmol/L ABG O2 Saturation (94-97) % Sodium (137-145) mmol/L Carbon Dioxide (22-30) mmol/L Glucose (74-99) mg/dL POC Glucose (mg/dL) 252 H 236 H (75-99) mg/dL Hemoglobin A1c (0.0-6.0) % Plasma Lactic Acid Angel 3.2 H* (0.7-2.0) mmol/L Procalcitonin (0.02-0.09) ng/mL Ur Leukocyte Esterase (Negative) Urine WBC (0-5) /hpf Urine Mucus (None) /hpf 01/13/22 01/13/22 01/14/22 Range/Units 21:56 22:58 00:15 WBC (3.8-10.6) k/uL RBC (3.80-5.40) m/uL Hgb (11.4-16.0) gm/dL Hct (34.0-46.0) % MCV (80.0-100.0) fL MCH (25.0-35.0) pg MCHC (31.0-37.0) g/dL RDW (11.5-15.5) % Plt Count (150-450) k/uL Neutrophils # (1.3-7.7) k/uL Lymphocytes # (1.0-4.8) k/uL Monocytes # (0-1.0) k/uL Basophils # (0-0.2) k/uL D-Dimer (<0.60) mg/L FEU ABG pH (7.35-7.45) ABG pO2 (83-108) mmHg ABG HCO3 (21-25) mmol/L ABG Total CO2 (19-24) mmol/L ABG O2 Saturation (94-97) % Sodium (137-145) mmol/L Carbon Dioxide (22-30) mmol/L Glucose (74-99) mg/dL POC Glucose (mg/dL) 226 H 257 H 226 H (75-99) mg/dL Hemoglobin A1c (0.0-6.0) % Plasma Lactic Acid Angel (0.7-2.0) mmol/L Procalcitonin (0.02-0.09) ng/mL Ur Leukocyte Esterase (Negative) Urine WBC (0-5) /hpf Urine Mucus (None) /hpf 01/14/22 01/14/22 01/14/22 Range/Units 00:55 02:03 02:51 WBC (3.8-10.6) k/uL RBC (3.80-5.40) m/uL Hgb (11.4-16.0) gm/dL Hct (34.0-46.0) % MCV (80.0-100.0) fL MCH (25.0-35.0) pg MCHC (31.0-37.0) g/dL RDW (11.5-15.5) % Plt Count (150-450) k/uL Neutrophils # (1.3-7.7) k/uL Lymphocytes # (1.0-4.8) k/uL Monocytes # (0-1.0) k/uL Basophils # (0-0.2) k/uL D-Dimer (<0.60) mg/L FEU ABG pH (7.35-7.45) ABG pO2 (83-108) mmHg ABG HCO3 (21-25) mmol/L ABG Total CO2 (19-24) mmol/L ABG O2 Saturation (94-97) % Sodium (137-145) mmol/L Carbon Dioxide (22-30) mmol/L Glucose (74-99) mg/dL POC Glucose (mg/dL) 188 H 146 H 338 H (75-99) mg/dL Hemoglobin A1c (0.0-6.0) % Plasma Lactic Acid Angel (0.7-2.0) mmol/L Procalcitonin (0.02-0.09) ng/mL Ur Leukocyte Esterase (Negative) Urine WBC (0-5) /hpf Urine Mucus (None) /hpf 01/14/22 01/14/22 01/14/22 Range/Units 04:01 05:56 06:55 WBC (3.8-10.6) k/uL RBC (3.80-5.40) m/uL Hgb (11.4-16.0) gm/dL Hct (34.0-46.0) % MCV (80.0-100.0) fL MCH (25.0-35.0) pg MCHC (31.0-37.0) g/dL RDW (11.5-15.5) % Plt Count (150-450) k/uL Neutrophils # (1.3-7.7) k/uL Lymphocytes # (1.0-4.8) k/uL Monocytes # (0-1.0) k/uL Basophils # (0-0.2) k/uL D-Dimer (<0.60) mg/L FEU ABG pH (7.35-7.45) ABG pO2 (83-108) mmHg ABG HCO3 (21-25) mmol/L ABG Total CO2 (19-24) mmol/L ABG O2 Saturation (94-97) % Sodium (137-145) mmol/L Carbon Dioxide (22-30) mmol/L Glucose (74-99) mg/dL POC Glucose (mg/dL) 141 H 146 H 144 H (75-99) mg/dL Hemoglobin A1c (0.0-6.0) % Plasma Lactic Acid Angel (0.7-2.0) mmol/L Procalcitonin (0.02-0.09) ng/mL Ur Leukocyte Esterase (Negative) Urine WBC (0-5) /hpf Urine Mucus (None) /hpf 01/14/22 01/14/22 01/14/22 Range/Units 07:23 07:23 07:23 WBC (3.8-10.6) k/uL RBC 3.63 L (3.80-5.40) m/uL Hgb 7.5 L (11.4-16.0) gm/dL Hct 27.0 L (34.0-46.0) % MCV 74.4 L (80.0-100.0) fL MCH 20.5 L (25.0-35.0) pg MCHC 27.6 L (31.0-37.0) g/dL RDW 17.9 H (11.5-15.5) % Plt Count 456 H (150-450) k/uL Neutrophils # (1.3-7.7) k/uL Lymphocytes # (1.0-4.8) k/uL Monocytes # (0-1.0) k/uL Basophils # (0-0.2) k/uL D-Dimer (<0.60) mg/L FEU ABG pH (7.35-7.45) ABG pO2 (83-108) mmHg ABG HCO3 (21-25) mmol/L ABG Total CO2 (19-24) mmol/L ABG O2 Saturation (94-97) % Sodium 134 L (137-145) mmol/L Carbon Dioxide (22-30) mmol/L Glucose 191 H (74-99) mg/dL POC Glucose (mg/dL) (75-99) mg/dL Hemoglobin A1c 8.3 H (0.0-6.0) % Plasma Lactic Acid Angel (0.7-2.0) mmol/L Procalcitonin (0.02-0.09) ng/mL Ur Leukocyte Esterase (Negative) Urine WBC (0-5) /hpf Urine Mucus (None) /hpf 01/14/22 01/14/22 Range/Units 08:10 09:30 WBC (3.8-10.6) k/uL RBC (3.80-5.40) m/uL Hgb (11.4-16.0) gm/dL Hct (34.0-46.0) % MCV (80.0-100.0) fL MCH (25.0-35.0) pg MCHC (31.0-37.0) g/dL RDW (11.5-15.5) % Plt Count (150-450) k/uL Neutrophils # (1.3-7.7) k/uL Lymphocytes # (1.0-4.8) k/uL Monocytes # (0-1.0) k/uL Basophils # (0-0.2) k/uL D-Dimer (<0.60) mg/L FEU ABG pH (7.35-7.45) ABG pO2 (83-108) mmHg ABG HCO3 (21-25) mmol/L ABG Total CO2 (19-24) mmol/L ABG O2 Saturation (94-97) % Sodium (137-145) mmol/L Carbon Dioxide (22-30) mmol/L Glucose (74-99) mg/dL POC Glucose (mg/dL) 251 H (75-99) mg/dL Hemoglobin A1c (0.0-6.0) % Plasma Lactic Acid Angel (0.7-2.0) mmol/L Procalcitonin (0.02-0.09) ng/mL Ur Leukocyte Esterase Trace H (Negative) Urine WBC 6 H (0-5) /hpf Urine Mucus Rare H (None) /hpf Assessment and Plan Assessment: Impression: Acute hypoxic respiratory failure secondary to acute on chronic systolic congestive heart failure No evidence of pneumonia. Hence antibiotics were discontinued. Anion gap metabolic acidosis secondary to hyperglycemia and secondary to metformin. History of non-ST elevation myocardial infarction and history of multivessel coronary artery disease. Previous CABG. History of polysubstance abuse including marijuana and methamphetamine. History of obstructive sleep apnea syndrome Type 2 diabetes. Benign essential hypertension. Chronic iron deficiency anemia. Recommendation: Consider transferring the patient out of the ICU to a monitor bed on selective today. Discontinue insulin drip. Start patient on insulin scale as per protocol. Start patient on Levemir insulin 12 units daily. Patient not to go back on metformin. Discontinue sodium bicarb drip. Resume home meds but definitely no metformin to be restarted. BiPAP as needed Discontinue antibiotics. Make sure that the patient is not on any metformin. We'll continue to follow. Prognosis remains guarded. Time with Patient: Less than 30
[2022-01-14 11:39] LABS: Glucose,Whole Blood 207 mg/dL (75-99)
[2022-01-14] MEDS: INSULIN ASPART (NovoLOG) 100 UNIT/ML VIAL SQ SCH ×3 (11:46→21:39)
[2022-01-14 16:34] LABS: Glucose,Whole Blood 271 mg/dL (75-99)
[2022-01-14] MEDS: traMADol 50 MG TAB PO SCH (20:26)
[2022-01-14] MEDS: ATORVASTATIN 40 MG TAB PO SCH (20:26)
[2022-01-14 20:33] LABS: Glucose,Whole Blood 278 mg/dL (75-99)
[2022-01-15] MEDS ORDERED: INSULIN DETEMIR (LEVEMIR) 100 UNIT/ML SYR SQ SCH (07:00)
[2022-01-15 07:24] LABS: Glucose,Whole Blood 213 mg/dL (75-99)
[2022-01-15 08:09] LABS: ALT 10 U/L (4-34); AST 15 U/L (14-36); African American GFR (CKD) >90 (>60 ml/min/1.73 sqM); Albumin 3.9 g/dL (3.5-5.0); Alkaline Phosphatase 88 U/L (38-126); Anion Gap 10 mmol/L; Blood Urea Nitrogen 17 mg/dL (7-17); Calcium 8.9 mg/dL (8.4-10.2); Carbon Dioxide 28 mmol/L (22-30); Chloride 96 mmol/L (98-107); Glucose 187 mg/dL (74-99); Non-African American GFR(CKD) 87 (>60 ml/min/1.73 sqM); Potassium 4.1 mmol/L (3.5-5.1); Sodium 134 mmol/L (137-145); Total Bilirubin 0.5 mg/dL (0.2-1.3); Total Protein 7.4 g/dL (6.3-8.2)
[2022-01-15 08:19] LABS: Anisocytosis Slight; Basophils % (A) 1 %; Eosinophils # (A) 0.2 k/uL (0-0.7); Eosinophils % (A) 2 %; HCT 28.7 % (34.0-46.0); HGB 8.1 gm/dL (11.4-16.0); Hypochromasia Marked; Lymphocytes # (A) 2.7 k/uL (1.0-4.8); Lymphocytes % (A) 32 %; MCHC 28.3 g/dL (31.0-37.0); MCV 70.6 fL (80.0-100.0); Mean Platelet Volume 7.1; Microcytosis Marked; Monocytes # (A) 0.4 k/uL (0-1.0); Monocytes % (A) 5 %; Neutrophils # (A) 4.8 k/uL (1.3-7.7); Neutrophils % (A) 58 %; Platelet Count 501 k/uL (150-450); Poikilocytosis Slight; RBC 4.07 m/uL (3.80-5.40); RDW 17.8 % (11.5-15.5); WBC 8.4 k/uL (3.8-10.6)
[2022-01-15] MEDS: ASPIRIN 81 MG PO SCH (08:29)
[2022-01-15] MEDS: METOPROLOL TARTRATE 50 MG TAB PO SCH ×2 (08:29→20:06)
[2022-01-15] MEDS: FUROSEMIDE 40 MG TAB PO SCH ×2 (08:29→15:40)
[2022-01-15] MEDS: INSULIN DETEMIR (LEVEMIR) 100 UNIT/ML SYR SQ SCH (08:29)
[2022-01-15] MEDS: SPIRONOLACTONE 25 MG TAB PO SCH (08:29)
[2022-01-15] MEDS: DILTIAZEM CD 120 MG CAP.ER.24H PO SCH (08:29)
[2022-01-15] MEDS: INSULIN ASPART (NovoLOG) 100 UNIT/ML VIAL SQ SCH ×4 (08:29→20:07)
[2022-01-15] MEDS: CLOPIDOGREL 75 MG TAB PO SCH (08:29)
[2022-01-15] MEDS: LOSARTAN 25 MG TAB PO SCH (08:30)
[2022-01-15] MEDS: PANTOPRAZOLE 40 MG/10 ML VIAL IVP SCH (08:30)
[2022-01-15 11:28] LABS: Glucose,Whole Blood 284 mg/dL (75-99)
--- NOTE | 2022-01-15 11:42 | P.DS ---
Providers Date of admission: 01/13/22 15:49 Expected date of discharge: 01/15/22 Attending physician: Surinder Rodríguez Consults: 01/13/22 16:07 Consult Physician Routine Consulting Provider: [facility] Consult Reason/Comments: AECHF Do you want consulting provider notified?: Yes 01/13/22 16:10 Consult Physician Stat Consulting Provider: Kaiden Alexander Consult Reason/Comments: acute hypoxic resp failure, CAP, AECHF Do you want consulting provider notified?: Already Contacted Primary care physician: Surinder Marcos [facility] Course: Discharge diagnosis Acute hypoxic respiratory failure Acute on chronic systolic congestive heart failure exacerbation Sepsis as evidenced by leukocytosis, elevated lactic acid 11.5, tachycardia and tachypnea on presentation. resolved. Vitals and labs have normalized Bilateral basal infiltrate suggestive of possible pneumonia Underlying history of coronary artery disease with recent history of coronary ar yarelis bypass graft surgery Underlying history of congestive heart failure with cardiomyopathy ejection fraction 20-25% Underlying history of diabetes mellitus Underlying history of hypertension Underlying history of hyperlipidemia Underlying history of COPD Underlying history of morbid obesity with obstructive sleep apnea Hospital course Mark Moore, is a 71-year-old female who presented to [facility] emergency room with a chief complaint of worsening shortness of breath She was evaluated in the emergency room vital examination on presentation revealed a temperature of 97.7 pulse 161 respiration 28 blood pressure 142/88 pulse ox 78% on room air Laboratory data revealed a white blood count of 22.9 hemoglobin 8.6 platelet count 698 sodium 136 potassium 4.8 chloride 104 CO2 11 BUN 8 creatinine 0.89 glucose level was 458 lactic acid was 11.5 BNP 2310 troponin 0.018 coronavirus PCR was negative influenza A and B PCR was negative Testing in the emergency room revealed chest x-ray done in the emergency room revealed evidence of cardiomegaly with by basilar infiltrates and diffuse interstitial pattern correlate for CHF versus diffuse pneumonia Patient was admitted to ICU for further evaluation and treatment, she was started on IV Lasix and IV antibiotics in the emergency room, pulmonary critical care consultation and cardiology consultation were requested. Past medical history is significant for history of coronary artery disease with recent history of coronary artery bypass graft surgery, history of cardiomyopathy with decreased ejection fraction to 2025 percent, history of hypertension, history of hyperlipidemia, history of COPD, history of diabetes mellitus, history of obstructive sleep apnea, history of morbid obesity. On 01/14/2022 patient is alert and oriented 3. Patient feels significantly improved. Patient's white blood cell improving to 9.0 lactic acid down to 1.8. Patient did receive additional dose of IV Lasix the same per cardiology per nursing staff critical care recommendations to DC metformin upon discharge. Patient's edema improved. Patient has been transitioned to sliding scale coverage insulin at this time patient reports minimal shortness of breath. Patient denies nausea vomiting or diarrhea. Patient denies any urinary burning or frequency On 01/15/2022atient is alert and oriented 3. Patient reports she feels back to baseline significantly improved on room air. White blood cell has completely normalized 8.4. Blood culture negative. Vitals have remained stable. Temp 98.5, heart rate 90, blood pressure 120/68. Pulse ox 96% on room air. Patient special she is eager to be discharged home. Per nursing staff patient has been cleared by pulmonary services. Patient to follow-up with PCP for further management chronic conditions Patient Condition at Discharge: Stable Plan - Discharge Summary Discharge Rx Participant: Yes New Discharge Prescriptions: New glipiZIDE [Glucotrol] 5 mg PO AC-BID 30 Days #60 tab Continue traMADol HCl [Ultram] 100 mg PO HS Baclofen 10 mg PO HS PRN PRN Reason: Pain rOPINIRole HCL [Requip] 2 mg PO HS Diltiazem Cd [Cardizem CD] 120 mg PO DAILY #30 capsule Pantoprazole [Protonix] 40 mg PO AC-BRKFST #30 tab Metoprolol Tartrate [Lopressor] 50 mg PO BID #60 tab Clopidogrel [Plavix] 75 mg PO DAILY #30 tab Losartan [Cozaar] 25 mg PO DAILY Spironolactone [Aldactone] 25 mg PO DAILY 30 Days #30 tab Furosemide [Lasix] 40 mg PO BID@0900,1600 30 Days #60 tab Aspirin EC [Ecotrin Low Dose] 81 mg PO DAILY Atorvastatin [Lipitor] 40 mg PO HS Discharge Medication List traMADol HCl [Ultram] 100 mg PO HS 11/04/15 [History] Baclofen 10 mg PO HS PRN 09/14/16 [History] rOPINIRole HCL [Requip] 2 mg PO HS 07/21/20 [History] Clopidogrel [Plavix] 75 mg PO DAILY #30 tab 10/15/21 [Rx] Diltiazem Cd [Cardizem CD] 120 mg PO DAILY #30 capsule 10/15/21 [Rx] Metoprolol Tartrate [Lopressor] 50 mg PO BID #60 tab 10/15/21 [Rx] Pantoprazole [Protonix] 40 mg PO AC-BRKFST #30 tab 10/15/21 [Rx] Losartan [Cozaar] 25 mg PO DAILY 11/26/21 [History] Furosemide [Lasix] 40 mg PO BID@0900,1600 30 Days #60 tab 12/01/21 [Rx] Spironolactone [Aldactone] 25 mg PO DAILY 30 Days #30 tab 12/01/21 [Rx] Aspirin EC [Ecotrin Low Dose] 81 mg PO DAILY 01/13/22 [History] Atorvastatin [Lipitor] 40 mg PO HS 01/13/22 [History] glipiZIDE [Glucotrol] 5 mg PO AC-BID 30 Days #60 tab 01/15/22 [Rx] Follow up Appointment(s)/Referral(s): Surinder Rodríguez MD [Primary Care Provider] - 1-2 days Activity/Diet/Wound Care/Special Instructions: activity as tolerated diet heart healthy D/C metformin
--- NOTE | 2022-01-15 12:46 | P.PN ---
Subjective Progress Note Date: 01/15/22 This is a 71-year-old female, known history of multiple medical problems including cardiomyopathy and LV dysfunction, obesity, obstructive sleep apnea syndrome, chronic systolic congestive heart failure and LV dysfunction, ejection fraction is normally in the range of 20-25%. Patient was last seen by us on consultation in early November, and at that time she was treated mostly for congestive heart failure. Patient is also known to have history of coronary artery disease, previous off pump bypass surgery with SIMPSON to LAD and a T graft left radial graft to obtuse marginal and intermediate coronary artery. Again she has clearly previous history of LV dysfunction with ejection fraction of 20- 25%. Patient is also known to have history of hypertension, dyslipidemia, diabetes and COPD. Patient came into the ER today in severe respiratory distress, chest x-ray is showing evidence of interstitial edema, unable to rule out underlying pneumonia although the clinical history suggests no pneumonia b ased on her symptoms. Patient was hyperglycemic, metabolically acidotic, lactic acid is about 11. And she required the placement on BiPAP. Presently on IPAP of 14 and EPAP of 6. ABG showed a pO2 of 274 pCO2 of 38 pH of 7.20. Hence I cut down her FiO2 from 80% to 60%. CBC showed WBC count of 22.9 hemoglobin is 8.6. D-dimer of 2.24. Renal profile was normal however her bicarb was noted to be low at 11 with anion gap of 21. Ketones are pending. But her blood sugar today is 458. BNP level was 2310. Patient tested negative for amaro virus, influenza. I saw this patient in the ER, I recommended a sodium bicarb drip, insulin drip for hyperglycemia, she is already on Levaquin empirically, and I'm making arrangements for the patient to be admitted to the ICU. The patient was reevaluated today on 01/14/22, remains in the ICU, but she is doing much better today compared to yesterday. Her metabolic acidosis has resolved. Her blood sugar is better controlled. Patient is now on room air, and she is not in any distress. Found out today that the patient was on metformin and considering her presentation of severe metabolic acidosis and lactic acidosis, I believe this is metformin induced unless for otherwise. Patient had a relatively unremarkable pro calcitonin level. Hence no need for further antibiotics. Her lactic acid is down to 1.8 today. Electrolytes are relatively unremarkable. And her renal profile is also normal. Her urinalysis showed no evidence of infection and no evidence of ketones in the urine. Again the only explanation to her presentation of acute metabolic acidosis and lactic acidosis is the fact that the patient was on metformin. I am recommending that the patient should not go back on metformin upon discharge The patient is seen today 01/15/2022 in follow-up on the selective care unit. She is currently sitting up in bed. Awake and alert in no acute distress. She is alert and oriented 3. No worsening shortness of breath, cough or con gestion. She is maintaining good O2 saturations in the 90s on room air. She's been afebrile. Hemodynamically stable. Blood cultures revealed no growth. White count 8.4. Hemoglobin 8.1. Sodium 134. Potassium 4.1. BUN 17. Creatinine 0.7. Glucose 187. Objective - Vital Signs Vital signs: Vital Signs Temp 98.3 F 01/15/22 11:44 Pulse 79 01/15/22 11:44 Resp 18 01/15/22 11:44 BP 121/60 01/15/22 11:44 Pulse Ox 94 L 01/15/22 11:44 Intake & Output 01/14/22 01/15/22 01/15/22 18:59 06:59 18:59 Intake Total 705.445 400 118 Output Total 2540 Balance -1834.555 400 118 Weight 95.7 kg Intake: IV 100 Dextrose 5% in Water 1, 100 000 ml @ 50 mls/hr IV . Q23H DIMA with Sodium Bicarb (1 Meq/ml) 150 ml Rx#:[id number] Intake, IV Titration 15.445 Amount Insulin Regular 100 unit 15.445 In Sodium Chloride 0.9% 100 ml @ Per Protocol IV .Q0M DIMA Rx#:[id number] Oral 590 400 118 Output: Urine 2540 Other: Voiding Method Toilet Toilet Toilet # Voids 1 3 - Exam GENERAL EXAM: Alert, pleasant, obese 71-year-old female patient, comfortable in no apparent distress. HEAD: Normocephalic. EYES: Normal reaction of pupils, equal size. NOSE: Clear with pink turbinates. THROAT: No erythema or exudates. NECK: No masses, no JVD. CHEST: No chest wall deformity. LUNGS: Equal air entry with no crackles, wheeze, rhonchi or dullness. CVS: S1 and S2 normal with no audible murmur, regular rhythm. ABDOMEN: No hepatosplenomegaly, normal bowel sounds, no guarding or rigidity. SPINE: No scoliosis or deformity SKIN: No rashes CENTRAL NERVOUS SYSTEM: No focal deficits, tone is normal in all 4 extremities. EXTREMITIES: There is no peripheral edema. No clubbing, no cyanosis. Peripheral pulses are intact. - Labs CBC & Chem 7: 01/15/22 07:21 01/15/22 07:21 Labs: Abnormal Lab Results - Last 24 Hours (Table) 01/14/22 01/14/22 01/15/22 Range/Units 16:32 20:31 07:21 Hgb 8.1 L (11.4-16.0) gm/dL Hct 28.7 L (34.0-46.0) % MCV 70.6 L (80.0-100.0) fL MCH 20.0 L (25.0-35.0) pg MCHC 28.3 L (31.0-37.0) g/dL RDW 17.8 H (11.5-15.5) % Plt Count 501 H (150-450) k/uL Sodium (137-145) mmol/L Chloride (98-107) mmol/L Glucose (74-99) mg/dL POC Glucose (mg/dL) 271 H 278 H (75-99) mg/dL 01/15/22 01/15/22 01/15/22 Range/Units 07:21 07:22 11:27 Hgb (11.4-16.0) gm/dL Hct (34.0-46.0) % MCV (80.0-100.0) fL MCH (25.0-35.0) pg MCHC (31.0-37.0) g/dL RDW (11.5-15.5) % Plt Count (150-450) k/uL Sodium 134 L (137-145) mmol/L Chloride 96 L (98-107) mmol/L Glucose 187 H (74-99) mg/dL POC Glucose (mg/dL) 213 H 284 H (75-99) mg/dL Microbiology - Last 24 Hours (Table) 01/13/22 16:08 Blood Culture - Preliminary Blood No Growth after 24 hours 01/13/22 16:14 Blood Culture - Preliminary Blood No Growth after 24 hours Assessment and Plan Assessment: 1 Acute hypoxic respiratory failure secondary to acute on chronic systolic congestive heart failure, recovered and on room air 2 No evidence of pneumonia. Hence antibiotics were discontinued. 3 Anion gap metabolic acidosis secondary to hyperglycemia and secondary to metformin. Recovered. 4 History of non-ST elevation myocardial infarction and history of multivessel coronary artery disease. Previous CABG. 5 History of polysubstance abuse including marijuana and methamphetamine. 6 History of obstructive sleep apnea syndrome 7 Type 2 diabetes. 8 Benign essential hypertension. 9 Chronic iron deficiency anemia. Plan: The patient was seen and evaluated Stable from the pulmonary and critical care standpoint Home once cleared by medicine I have personally seen and examined the patient, performed the documentation and the assessment and plan as written. Number of minutes spent on the visit: 10.
--- NOTE | 2022-01-15 14:33 | P.PN ---
Subjective Progress Note Date: 01/15/22 The patient has a history of CAD, status post CABG, severe cardiomyopathy, hypertension, hyperlipidemia and diabetes mellitus in addition to noncompliance who presented was progressive dyspnea. She is feeling better today her breathing is better she denies any chest discomfort, she denies any dizziness or palpitations. She denies any nausea or vomiting. She is anxious to go home. She continues to be on aspirin once a day, atorvastatin 40 mg daily, Plavix 75 mg daily, Cardizem 120 mg daily, Lasix 40 mg twice a day, insulin, losartan 25 mg daily, metoprolol 50 mg twice a day, Aldactone 25 mg daily. Blood pressure 120/60 with a heart rate in the 70s Lungs: Clear to auscultation Heart: Regular rate and rhythm S1-S2 no S3 with a systolic ejection murmur Abdomen: Soft nontender, positive bowel sounds Extremities: Trace edema Lab: Hemoglobin 8.1 MCV 70. BUN and creatinine 17 and 0.7, potassium 4.1. Impression: 1. Symptoms of CHF in the patient with known severe ischemic cardiomyopathy 2. Status post CABG 3. Anemia with evidence to suggest iron deficiency, patient requires further workup 4. History of hypertension 5. History of diabetes 6. Hyperlipidemia Plan: 1 continue present therapy 2. Increase physical activity 3. If stable probable discharge home tomorrow 4. Patient needs to undergo workup for her anemia her primary care physician. Objective - Vital Signs Vital signs: Vital Signs Temp 98.3 F 01/15/22 11:44 Pulse 91 01/15/22 14:00 Resp 18 01/15/22 14:00 BP 121/60 01/15/22 11:44 Pulse Ox 94 L 01/15/22 11:44 Intake & Output 01/14/22 01/15/22 01/15/22 18:59 06:59 18:59 Intake Total 705.445 400 118 Output Total 2540 Balance -1834.555 400 118 Weight 95.7 kg Intake: IV 100 Dextrose 5% in Water 1, 100 000 ml @ 50 mls/hr IV . Q23H DIMA with Sodium Bicarb (1 Meq/ml) 150 ml Rx#:[id number] Intake, IV Titration 15.445 Amount Insulin Regular 100 unit 15.445 In Sodium Chloride 0.9% 100 ml @ Per Protocol IV .Q0M DIMA Rx#:[id number] Oral 590 400 118 Output: Urine 2540 Other: Voiding Method Toilet Toilet Toilet # Voids 1 3 - Labs CBC & Chem 7: 01/15/22 07:21 01/15/22 07:21 Labs: Abnormal Lab Results - Last 24 Hours (Table) 01/14/22 01/14/22 01/15/22 Range/Units 16:32 20:31 07:21 Hgb 8.1 L (11.4-16.0) gm/dL Hct 28.7 L (34.0-46.0) % MCV 70.6 L (80.0-100.0) fL MCH 20.0 L (25.0-35.0) pg MCHC 28.3 L (31.0-37.0) g/dL RDW 17.8 H (11.5-15.5) % Plt Count 501 H (150-450) k/uL Sodium (137-145) mmol/L Chloride (98-107) mmol/L Glucose (74-99) mg/dL POC Glucose (mg/dL) 271 H 278 H (75-99) mg/dL 01/15/22 01/15/22 01/15/22 Range/Units 07:21 07:22 11:27 Hgb (11.4-16.0) gm/dL Hct (34.0-46.0) % MCV (80.0-100.0) fL MCH (25.0-35.0) pg MCHC (31.0-37.0) g/dL RDW (11.5-15.5) % Plt Count (150-450) k/uL Sodium 134 L (137-145) mmol/L Chloride 96 L (98-107) mmol/L Glucose 187 H (74-99) mg/dL POC Glucose (mg/dL) 213 H 284 H (75-99) mg/dL Microbiology - Last 24 Hours (Table) 01/13/22 16:08 Blood Culture - Preliminary Blood No Growth after 24 hours 01/13/22 16:14 Blood Culture - Preliminary Blood No Growth after 24 hours
[2022-01-15 16:17] LABS: Glucose,Whole Blood 293 mg/dL (75-99)
[2022-01-15 16:30] LABS: Glucose,Whole Blood 295 mg/dL (75-99)
[2022-01-15 20:02] LABS: Glucose,Whole Blood 311 mg/dL (75-99)
[2022-01-15] MEDS: traMADol 50 MG TAB PO SCH (20:06)
[2022-01-15] MEDS: ATORVASTATIN 40 MG TAB PO SCH (20:06)
[2022-01-15] MEDS: BACLOFEN 10 MG TAB PO PRN (20:07)
[2022-01-16 07:13] LABS: Glucose,Whole Blood 208 mg/dL (75-99)
[2022-01-16] MEDS: INSULIN DETEMIR (LEVEMIR) 100 UNIT/ML SYR SQ SCH (09:04)
[2022-01-16] MEDS: FUROSEMIDE 40 MG TAB PO SCH ×2 (09:05→16:05)
[2022-01-16] MEDS: SPIRONOLACTONE 25 MG TAB PO SCH (09:05)
[2022-01-16] MEDS: DILTIAZEM CD 120 MG CAP.ER.24H PO SCH (09:05)
[2022-01-16] MEDS: INSULIN ASPART (NovoLOG) 100 UNIT/ML VIAL SQ SCH ×2 (09:05→12:27)
[2022-01-16] MEDS: LOSARTAN 25 MG TAB PO SCH (09:05)
[2022-01-16] MEDS: METOPROLOL TARTRATE 50 MG TAB PO SCH (09:05)
[2022-01-16] MEDS: ASPIRIN 81 MG PO SCH (09:05)
[2022-01-16] MEDS: PANTOPRAZOLE 40 MG/10 ML VIAL IVP SCH (09:05)
[2022-01-16] MEDS: CLOPIDOGREL 75 MG TAB PO SCH (09:05)
[2022-01-16 10:02] LABS: Anisocytosis Slight; HCT 27.8 % (34.0-46.0); HGB 7.8 gm/dL (11.4-16.0); Hypochromasia Marked; MCH 20.4 pg (25.0-35.0); MCHC 28.2 g/dL (31.0-37.0); MCV 72.2 fL (80.0-100.0); Mean Platelet Volume 7.3; Microcytosis Moderate; Platelet Count 493 k/uL (150-450); Poikilocytosis Slight; RBC 3.85 m/uL (3.80-5.40); WBC 11.1 k/uL (3.8-10.6)
[2022-01-16 10:05] LABS: Calcium 8.7 mg/dL (8.4-10.2); Potassium 4.4 mmol/L (3.5-5.1)
[2022-01-16 11:01] VITALS: TEMP 98.2
[2022-01-16 11:24] LABS: Glucose,Whole Blood 202 mg/dL (75-99)
[2022-01-16 12:08] VITALS: BP 102/64; RESP 16
[2022-01-16 14:07] VITALS: PULSE 91
--- NOTE | 2022-01-16 15:06 | P.PN ---
Subjective Progress Note Date: 01/16/22 The patient has a history of CAD, status post CABG, severe cardiomyopathy, hypertension, hyperlipidemia and diabetes mellitus in addition to noncompliance who presented was progressive dyspnea. She is feeling better today her breathing is better she denies any chest discomfort, she denies any dizziness or palpitations. She denies any nausea or vomiting. She is anxious to go home. She continues to be on aspirin once a day, atorvastatin 40 mg daily, Plavix 75 mg daily, Cardizem 120 mg daily, Lasix 40 mg twice a day, insulin, losartan 25 mg daily, metoprolol 50 mg twice a day, Aldactone 25 mg daily. January 16: She feels better today, anxious to go home. She denies any chest discomfort, dizziness or palpitations. She is ambulating without difficulties. Hemodynamically she is stable. She continues to be in sinus mechanism. She denies any nausea or vomiting. She continues to be on aspirin once a day, Lipitor 40 mg daily, Plavix 75 daily, Cardizem 120 mg daily, Lasix 40 mg twice a day, insulin, Cozaar 25 mg daily, Lopressor 50 mg twice a day, Aldactone 25 mg daily. Blood pressure 102/60 the heart rate in the 80s Lungs: Clear to auscultation Heart: Regular rate and rhythm S1-S2 no S3 with a systolic ejection murmur Abdomen: Soft nontender, positive bowel sounds Extremities: No edema Lab: Hemoglobin 7.8 MCV 72.2. BUN and creatinine 18 and 0.8, potassium 4.4 Impression: 1. Symptoms of CHF in the patient with known severe ischemic cardiomyopathy, appears to be euvolemic at this time 2. Status post CABG 3. Anemia with evidence to suggest iron deficiency, patient requires further workup 4. History of hypertension 5. History of diabetes 6. Hyperlipidemia Plan: 1 continue present therapy and stop Plavix 2. Increase physical activity 3. Probable discharge home today 4. Patient will be evaluated as an outpatient for ICD implantation 5. Anemia workup as outpatient per PCP 6. Follow-up as an outpatient Objective - Vital Signs Vital signs: Vital Signs Temp 98.2 F 01/16/22 12:00 Pulse 91 01/16/22 14:00 Resp 16 01/16/22 14:00 BP 102/64 01/16/22 12:00 Pulse Ox 96 01/16/22 12:00 Intake & Output 01/15/22 01/16/22 01/16/22 18:59 06:59 18:59 Intake Total 354 200 Balance 354 200 Intake: Oral 354 200 Other: Voiding Method Toilet Toilet Toilet # Voids 3 2 - Labs CBC & Chem 7: 01/16/22 09:28 01/16/22 09:28 Labs: Abnormal Lab Results - Last 24 Hours (Table) 01/15/22 01/15/22 01/15/22 Range/Units 16:16 16:29 19:46 WBC (3.8-10.6) k/uL Hgb (11.4-16.0) gm/dL Hct (34.0-46.0) % MCV (80.0-100.0) fL MCH (25.0-35.0) pg MCHC (31.0-37.0) g/dL RDW (11.5-15.5) % Plt Count (150-450) k/uL Sodium (137-145) mmol/L Chloride (98-107) mmol/L BUN (7-17) mg/dL Glucose (74-99) mg/dL POC Glucose (mg/dL) 293 H 295 H 311 H (75-99) mg/dL 01/16/22 01/16/22 01/16/22 Range/Units 07:12 09:28 09:28 WBC 11.1 H (3.8-10.6) k/uL Hgb 7.8 L (11.4-16.0) gm/dL Hct 27.8 L (34.0-46.0) % MCV 72.2 L (80.0-100.0) fL MCH 20.4 L (25.0-35.0) pg MCHC 28.2 L (31.0-37.0) g/dL RDW 18.0 H (11.5-15.5) % Plt Count 493 H (150-450) k/uL Sodium 130 L (137-145) mmol/L Chloride 93 L (98-107) mmol/L BUN 18 H (7-17) mg/dL Glucose 251 H (74-99) mg/dL POC Glucose (mg/dL) 208 H (75-99) mg/dL 01/16/22 Range/Units 11:21 WBC (3.8-10.6) k/uL Hgb (11.4-16.0) gm/dL Hct (34.0-46.0) % MCV (80.0-100.0) fL MCH (25.0-35.0) pg MCHC (31.0-37.0) g/dL RDW (11.5-15.5) % Plt Count (150-450) k/uL Sodium (137-145) mmol/L Chloride (98-107) mmol/L BUN (7-17) mg/dL Glucose (74-99) mg/dL POC Glucose (mg/dL) 202 H (75-99) mg/dL Microbiology - Last 24 Hours (Table) 01/13/22 16:08 Blood Culture - Preliminary Blood No Growth after 48 hours 01/13/22 16:14 Blood Culture - Preliminary Blood No Growth after 48 hours
[2022-01-16] MEDS ORDERED: FERROUS SULFATE 325 MG TAB PO SCH (17:30)
== END 2022-01-16 16:09 | disposition home or self-care (01) | DRG 871 ==
LOC: EC 12:41 → 3SCARD 15:49 → 2SICU 16:56 → 3SCARD 01-14 13:49
PROVIDERS: ADMIT Internal Medicine; ATTEND Internal Medicine
PROC: 5A09357 Assistance with Respiratory Ventilation, Less than 24 Consecutive Hours, Continuous Positive Airway Pressure (ICD-10-PCS; principal; 2022-01-13)
DX: A41.9 Sepsis, unspecified organism (principal); I50.23 Acute on chronic systolic (congestive) heart failure; J96.01 Acute respiratory failure with hypoxia; J18.9 Pneumonia, unspecified organism; E87.2 Acidosis; I16.1 Hypertensive emergency; J44.0 Chronic obstructive pulmonary disease with (acute) lower respiratory infection; I11.0 Hypertensive heart disease with heart failure; E11.65 Type 2 diabetes mellitus with hyperglycemia; D50.9 Iron deficiency anemia, unspecified; E66.01 Morbid (severe) obesity due to excess calories; F15.11 Other stimulant abuse, in remission; M46.00 Spinal enthesopathy, site unspecified; Z20.822 Contact with and (suspected) exposure to COVID-19; I25.5 Ischemic cardiomyopathy; E78.5 Hyperlipidemia, unspecified; I25.10 Atherosclerotic heart disease of native coronary artery without angina pectoris; I08.3 Combined rheumatic disorders of mitral, aortic and tricuspid valves; M79.7 Fibromyalgia; G47.33 Obstructive sleep apnea (adult) (pediatric); M47.9 Spondylosis, unspecified; I25.2 Old myocardial infarction; I44.7 Left bundle-branch block, unspecified; F12.11 Cannabis abuse, in remission; Z68.37 Body mass index [BMI] 37.0-37.9, adult; Z91.19 Patient's noncompliance with other medical treatment and regimen; Z79.82 Long term (current) use of aspirin; Z79.02 Long term (current) use of antithrombotics/antiplatelets; Z79.891 Long term (current) use of opiate analgesic; Z79.899 Other long term (current) drug therapy; Z95.1 Presence of aortocoronary bypass graft; Z90.49 Acquired absence of other specified parts of digestive tract; Z87.19 Personal history of other diseases of the digestive system; Z90.89 Acquired absence of other organs; Z98.51 Tubal ligation status; Z86.69 Personal history of other diseases of the nervous system and sense organs; Z87.39 Personal history of other diseases of the musculoskeletal system and connective tissue; Z87.891 Personal history of nicotine dependence; Z98.890 Other specified postprocedural states; Z88.1 Allergy status to other antibiotic agents; Z88.2 Allergy status to sulfonamides; Z82.49 Family history of ischemic heart disease and other diseases of the circulatory system; Z80.9 Family history of malignant neoplasm, unspecified; Z83.3 Family history of diabetes mellitus
CPT/HCPCS: 36415; 36600; 71045; 80048; 80053; 81001; 82805; 83036; 83605; 83735; 83880; 84145; 84484; 85025; 85027; 85379; 85610; 85730; 87040; 87502; 87635; 93005; 94660; 96365; 96375; 99285

== ENCOUNTER 2022-05-26 16:35 | Inpatient (IN) | payer MEDICARE, OTHER ==
[2022-05-26 17:27] LABS: Anisocytosis Slight; Basophils % (A) 1 %; Eosinophils # (A) 0.2 k/uL (0-0.7); Eosinophils % (A) 3 %; HCT 26.2 % (34.0-46.0); Hypochromasia Marked; Lymphocytes # (A) 1.2 k/uL (1.0-4.8); Lymphocytes % (A) 19 %; MCH 16.8 pg (25.0-35.0); MCHC 25.8 g/dL (31.0-37.0); MCV 65.1 fL (80.0-100.0); Microcytosis Marked; Monocytes # (A) 0.2 k/uL (0-1.0); Monocytes % (A) 4 %; Neutrophils # (A) 4.4 k/uL (1.3-7.7); Neutrophils % (A) 72 %; Platelet Count 388 k/uL (150-450); Poikilocytosis Slight; RBC 4.03 m/uL (3.80-5.40); RDW 17.1 % (11.5-15.5); WBC 6.1 k/uL (3.8-10.6)
[2022-05-26 17:37] LABS: HGB 6.8 gm/dL (11.4-16.0)
[2022-05-26 17:41] LABS: Partial Thromboplastin Time 22.2 sec (22.0-30.0); Prothrombin Time 10.5 sec (9.0-12.0)
[2022-05-26 17:42] LABS: ALT 12 U/L (4-34); AST 27 U/L (14-36); African American GFR (CKD) >90 (>60 ml/min/1.73 sqM); Albumin 3.6 g/dL (3.5-5.0); Alkaline Phosphatase 117 U/L (38-126); Anion Gap 7 mmol/L; Blood Urea Nitrogen 7 mg/dL (7-17); Calcium 8.6 mg/dL (8.4-10.2); Carbon Dioxide 24 mmol/L (22-30); Chloride 95 mmol/L (98-107); Glucose 447 mg/dL (74-99); Non-African American GFR(CKD) >90 (>60 ml/min/1.73 sqM); Potassium 4.2 mmol/L (3.5-5.1); Sodium 126 mmol/L (137-145); Total Bilirubin 0.3 mg/dL (0.2-1.3); Total Protein 6.2 g/dL (6.3-8.2)
--- NOTE | 2022-05-26 17:56 | XR ---
EXAMINATION TYPE: XR chest 2V DATE OF EXAM: 05/26/2022 COMPARISON: 01/14/2022 HISTORY: Dyspnea TECHNIQUE: Frontal and lateral views of the chest are obtained. FINDINGS: There is mild bibasilar hazy opacities. No pleural effusion, or pneumothorax seen. Stable cardiomediastinal silhouette and prior cardiothoracic postsurgical changes. The osseous structures are intact. IMPRESSION: Mild bibasilar hazy opacities, probably atelectasis.
[2022-05-26] MEDS ORDERED: ASPIRIN 81 MG PO STA (19:45)
[2022-05-26] MEDS ORDERED: NALOXONE 0.4 MG/ML 1 ML VIAL IV PRN (19:46)
--- NOTE | 2022-05-26 20:26 | ED ---
General Adult HPI - General Chief complaint: Shortness of Breath Stated complaint: NIDIA-Sent by PCP Time Seen by Provider: 05/26/22 18:57 Source: patient, RN notes reviewed, old records reviewed Mode of arrival: ambulatory Limitations: no limitations - History of Present Illness Initial comments: Patient is a 71-year-old female with past medical history remarkable for heart failure, chronic anemia, asthma, fibromyalgia who presents emergency Department complaining of progressively worsening shortness of breath. Triage note states 3-4 days, however it does seem to be worsening over the last few weeks per patient. Some by PCP. Patient endorses worsening exertional shortness of breath, worsening orthopnea. Does endorse worsening lower extremity edema. Denies PND. States occasional pain diffusely on a deep breath in. Denies wheezing. Denies cough. Denies sick contacts. Denies nausea, vomiting, abdominal pain. His no diarrhea. His no other acute complaints at this time. Is not on blood thinners. No history of blood clots. Denies any bleeding from the rectum. Denies any hematemesis. His no other acute complaints at this time. She presents for further evaluation. - Related Data Home Medications Medication Instructions Recorded Confirmed traMADol HCl [Ultram] 100 mg PO HS 11/04/15 01/13/22 Baclofen 10 mg PO HS PRN 09/14/16 01/13/22 rOPINIRole HCL [Requip] 2 mg PO HS 07/21/20 01/13/22 Losartan [Cozaar] 25 mg PO DAILY 11/26/21 01/13/22 Aspirin EC [Ecotrin Low Dose] 81 mg PO DAILY 01/13/22 01/13/22 Atorvastatin [Lipitor] 40 mg PO HS 01/13/22 01/13/22 Previous Rx's Medication Instructions Recorded Clopidogrel [Plavix] 75 mg PO DAILY #30 tab 10/15/21 Diltiazem Cd [Cardizem CD] 120 mg PO DAILY #30 capsule 10/15/21 Metoprolol Tartrate [Lopressor] 50 mg PO BID #60 tab 10/15/21 Pantoprazole [Protonix] 40 mg PO AC-BRKFST #30 tab 10/15/21 Furosemide [Lasix] 40 mg PO BID@0900,1600 30 Days #60 12/01/21 tab Spironolactone [Aldactone] 25 mg PO DAILY 30 Days #30 tab 12/01/21 glipiZIDE [Glucotrol] 5 mg PO AC-BID 30 Days #60 tab 01/15/22 Allergies Allergy/AdvReac Type Severity Reaction Status Date / Time cephalexin Allergy Anaphylaxis Verified 05/26/22 17:15 cephalexin monohydrate Allergy Anaphylaxis Verified 05/26/22 17:15 [From Keflex] Sulfa (Sulfonamide Allergy Rash/Hives Verified 05/26/22 17:15 Antibiotics) Review of Systems ROS Statement: Those systems with pertinent positive or pertinent negative responses have been documented in the HPI. Review of Systems: CONST: Denies fever EYES: Denies blurry vision ENT: Denies nasal congestion C/V: Denies Chest pain RESP: Endorses shortness of breath GI: Denies abdominal pain : Denies dysuria SKIN: Denies rash. MSK: Denies joint pain. NEURO: Denies headache ROS Other: All systems not noted in ROS Statement are negative. 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 Poly substance abuse 07/19/21 admitted for Acute delirium History of Any Multi-Drug Resistant Organisms: None Reported Past Surgical History: Cholecystectomy, Hernia Repair, Orthopedic Surgery, Tonsillectomy, Tubal Ligation Additional Past Surgical History / Comment(s): LEFT KNEE ARTHROSCOPY, BMT AND MYRINGOPLASTY, umbilical hernia repair, CABG 2020 Past Anesthesia/Blood Transfusion Reactions: No Reported Reaction Additional Past Anesthesia/Blood Transfusion Reaction / Comment(s): STATES AFTER LAST EAR SX (11/2013) HAD SORE MUSCLES AND WAS WEAK FOR 3-4 DAYS Past Psychological History: Unable to Obtain Smoking Status: Former smoker Past Alcohol Use History: None Reported Past Drug Use History: Marijuana, Methamphetamine - Past Family History Sister(s) Family Medical History: Cancer Brother(s) Family Medical History: Cancer Additional Family Medical History / Comment(s): brother had heart valve replacement Mother Family Medical History: Chest Pain / Angina, Diabetes Mellitus, Hypertension Father History Unknown: Yes General Exam - General Exam Comments Initial Comments: General: Appears in no acute distress. HEAD: Normal with no signs of head trauma. EYES: PERRLA, EOMI, conjunctiva normal, no discharge. ENT: Hearing grossly intact, normal oropharynx. RESPIRATORY: Clear breath sounds bilaterally. No wheezes, rales, or rhonchi. No hypoxia. No increased work of breathing. C/V: Sinus tachycardia. S1 and S2 auscultated. Peripheral pulses 2+ intact throughout. 1-2+ pitting edema bilateral lower extremities extremities up to the level of the knee. ABD: Abd is soft, nontender, nondistended EXT: Normal range of motion, no obvious deformity SKIN: No rashes or lesions observed on exposed skin. NEURO: Alert and oriented 4. Limitations: no limitations Course Vital Signs 05/26/22 05/26/22 17:11 19:15 Temperature 98.7 F Pulse Rate 120 H 111 H Respiratory 20 18 Rate Blood Pressure 109/68 139/79 O2 Sat by Pulse 98 99 Oximetry Medical Decision Making - Medical Decision Making Based on the patient's presentation and physical exam, I'm concerned for cardiopulmonary etiology for her current symptoms. Does appear to be heart failure related. Work up was started in triage. Vital signs are within normal limits except for a sinus tachycardia heart rate. Triage labs are remarkable for a worsening anemia, with hemoglobin of 6.8. Patient does have a history of chronic microcytic anemia, however this is below her baseline of 7.8-9 seen over the last year. She is hyperglycemic to 4-47. Troponin is indeterminate at 0.025. BNP is elevated to 1900. EKG obtained in triage shows sinus tachycardia without any signs of new acute ischemia. Chest x-ray also obtained in triage revealed mild bibasilar hazy opacities, suspect atelectasis. I discussed with the patient the results of her workup. She denies any bleeding upper GI tract, denying blue blood in her stool or emesis. Did recommend we obtain an occult blood which she was in agreement. Rectal exam was performed in the presence of a female staff member. Revealed no gross blood. Nonbleeding external hemorrhoids present. No gross blood. Occult blood is negative. Also recommended with her tachycardia and subjective dyspnea that we obtain a d- dimer. Her shortness of breath with her symptoms presents his clinical heart failure versus symptomatic anemia. However cannot rule out PE. She was in agreement this plan. D-dimer was within normal limits, when age-adjusted. After the patient results of her labs and imaging. I believe it is safer to be just admitted to the hospital at this time. We will give her a unit of blood. We'll continue to monitor her hemoglobin level. Patient will be started on Lasix. Neck was ordered. Troponins will be trended. Patient was in agreement with this plan. Cardiology is consulted. I spoke with the admitting physician, Dr. Rodríguez who accepted the patient. - Lab Data Result diagrams: 05/26/22 17:18 05/26/22 17:18 Lab Results 05/26/22 05/26/22 05/26/22 Range/Units 17:18 17:18 17:18 WBC 6.1 (3.8-10.6) k/uL RBC 4.03 (3.80-5.40) m/uL Hgb 6.8 L* (11.4-16.0) gm/dL Hct 26.2 L (34.0-46.0) % MCV 65.1 L (80.0-100.0) fL MCH 16.8 L (25.0-35.0) pg MCHC 25.8 L (31.0-37.0) g/dL RDW 17.1 H (11.5-15.5) % Plt Count 388 (150-450) k/uL MPV 9.0 Neutrophils % 72 % Lymphocytes % 19 % Monocytes % 4 % Eosinophils % 3 % Basophils % 1 % Neutrophils # 4.4 (1.3-7.7) k/uL Lymphocytes # 1.2 (1.0-4.8) k/uL Monocytes # 0.2 (0-1.0) k/uL Eosinophils # 0.2 (0-0.7) k/uL Basophils # 0.0 (0-0.2) k/uL Hypochromasia Marked Poikilocytosis Slight Anisocytosis Slight Microcytosis Marked PT 10.5 (9.0-12.0) sec INR 1.0 (<1.2) APTT 22.2 (22.0-30.0) sec D-Dimer (<0.60) mg/L FEU Sodium 126 L (137-145) mmol/L Potassium 4.2 (3.5-5.1) mmol/L Chloride 95 L (98-107) mmol/L Carbon Dioxide 24 (22-30) mmol/L Anion Gap 7 mmol/L BUN 7 (7-17) mg/dL Creatinine 0.54 (0.52-1.04) mg/dL Est GFR (CKD-EPI)AfAm >90 (>60 ml/min/1.73 sqM) Est GFR (CKD-EPI)NonAf >90 (>60 ml/min/1.73 sqM) Glucose 447 H (74-99) mg/dL Calcium 8.6 (8.4-10.2) mg/dL Total Bilirubin 0.3 (0.2-1.3) mg/dL AST 27 (14-36) U/L ALT 12 (4-34) U/L Alkaline Phosphatase 117 (38-126) U/L Troponin I (0.000-0.034) ng/mL NT-Pro-B Natriuret Pep pg/mL Total Protein 6.2 L (6.3-8.2) g/dL Albumin 3.6 (3.5-5.0) g/dL Stool Occult Blood (Negative) 05/26/22 05/26/22 05/26/22 Range/Units 17:18 17:18 17:18 WBC (3.8-10.6) k/uL RBC (3.80-5.40) m/uL Hgb (11.4-16.0) gm/dL Hct (34.0-46.0) % MCV (80.0-100.0) fL MCH (25.0-35.0) pg MCHC (31.0-37.0) g/dL RDW (11.5-15.5) % Plt Count (150-450) k/uL MPV Neutrophils % % Lymphocytes % % Monocytes % % Eosinophils % % Basophils % % Neutrophils # (1.3-7.7) k/uL Lymphocytes # (1.0-4.8) k/uL Monocytes # (0-1.0) k/uL Eosinophils # (0-0.7) k/uL Basophils # (0-0.2) k/uL Hypochromasia Poikilocytosis Anisocytosis Microcytosis PT (9.0-12.0) sec INR (<1.2) APTT (22.0-30.0) sec D-Dimer 0.68 H (<0.60) mg/L FEU Sodium (137-145) mmol/L Potassium (3.5-5.1) mmol/L Chloride (98-107) mmol/L Carbon Dioxide (22-30) mmol/L Anion Gap mmol/L BUN (7-17) mg/dL Creatinine (0.52-1.04) mg/dL Est GFR (CKD-EPI)AfAm (>60 ml/min/1.73 sqM) Est GFR (CKD-EPI)NonAf (>60 ml/min/1.73 sqM) Glucose (74-99) mg/dL Calcium (8.4-10.2) mg/dL Total Bilirubin (0.2-1.3) mg/dL AST (14-36) U/L ALT (4-34) U/L Alkaline Phosphatase (38-126) U/L Troponin I 0.025 (0.000-0.034) ng/mL NT-Pro-B Natriuret Pep 1990 pg/mL Total Protein (6.3-8.2) g/dL Albumin (3.5-5.0) g/dL Stool Occult Blood (Negative) 05/26/22 Range/Units 19:11 WBC (3.8-10.6) k/uL RBC (3.80-5.40) m/uL Hgb (11.4-16.0) gm/dL Hct (34.0-46.0) % MCV (80.0-100.0) fL MCH (25.0-35.0) pg MCHC (31.0-37.0) g/dL RDW (11.5-15.5) % Plt Count (150-450) k/uL MPV Neutrophils % % Lymphocytes % % Monocytes % % Eosinophils % % Basophils % % Neutrophils # (1.3-7.7) k/uL Lymphocytes # (1.0-4.8) k/uL Monocytes # (0-1.0) k/uL Eosinophils # (0-0.7) k/uL Basophils # (0-0.2) k/uL Hypochromasia Poikilocytosis Anisocytosis Microcytosis PT (9.0-12.0) sec INR (<1.2) APTT (22.0-30.0) sec D-Dimer (<0.60) mg/L FEU Sodium (137-145) mmol/L Potassium (3.5-5.1) mmol/L Chloride (98-107) mmol/L Carbon Dioxide (22-30) mmol/L Anion Gap mmol/L BUN (7-17) mg/dL Creatinine (0.52-1.04) mg/dL Est GFR (CKD-EPI)AfAm (>60 ml/min/1.73 sqM) Est GFR (CKD-EPI)NonAf (>60 ml/min/1.73 sqM) Glucose (74-99) mg/dL Calcium (8.4-10.2) mg/dL Total Bilirubin (0.2-1.3) mg/dL AST (14-36) U/L ALT (4-34) U/L Alkaline Phosphatase (38-126) U/L Troponin I (0.000-0.034) ng/mL NT-Pro-B Natriuret Pep pg/mL Total Protein (6.3-8.2) g/dL Albumin (3.5-5.0) g/dL Stool Occult Blood Negative (Negative) - EKG Data -: EKG Interpreted by Me EKG Comments: 12-lead Electrocardiogram Interpretation Note EKG was reviewed and interpreted by myself. 12-lead ECG performed at 1718 is interpreted by me as revealing sinus tachycardia at a rate of 119 beats per makenzie te. Left axis deviation. HI interval is 124 ms, QRS duration is 115 ms, QTc is 365 ms.. There are chronic T wave inversions in lateral precordial leads. There were no acute ST or T wave abnormalities to suggest myocardial ischemia or injury. R wave progression across the precordium was satisfactory. By my interpretation this EKG is non-diagnostic for acute ischemia. Similar with chronic T wave inversions seen in the lateral precordial leads from EKG 01/14/2022. Disposition Clinical Impression: Heart failure, Hyperglycemia, Symptomatic anemia, Chronic anemia Disposition: ADMITTED IP TO THIS HOSP Condition: Stable Referrals: Surinder Rodríguez MD [Primary Care Provider] - 1-2 days Time of Disposition: 19:40
[2022-05-26] MEDS ORDERED: INSULIN ASPART (NovoLOG) 100 UNIT/ML VIAL SQ ONE (20:29)
[2022-05-26 20:41] LABS: Glucose,Whole Blood 403 mg/dL (70-110)
[2022-05-26] MEDS: BACLOFEN 10 MG TAB PO PRN (20:47)
[2022-05-26] MEDS: ATORVASTATIN 40 MG TAB PO SCH (20:48)
[2022-05-26] MEDS: FUROSEMIDE 10 MG/ML 4 ML VIAL IV SCH (20:48)
[2022-05-26] MEDS ORDERED: traMADol 50 MG TAB PO SCH (21:00)
[2022-05-26] MEDS: METOPROLOL TARTRATE 50 MG TAB PO SCH (22:42)
[2022-05-26] MEDS: HEPARIN SODIUM,PORCINE/PF 5,000 UNIT/0.5 ML SYRINGE SQ SCH (22:42)
[2022-05-27] MEDS: BACLOFEN 10 MG TAB PO PRN ×2 (01:37→09:19)
[2022-05-27 01:57] LABS: Appearance,Urine Clear (Clear); Bilirubin,Urine Negative (Negative); Blood,Urine Negative (Negative); Color,Urine Light Yellow; Glucose,Urine (UA) 4+ (Negative); Ketones,Urine Negative (Negative); Leukocyte Esterase,Urine Trace (Negative); Mucus,Urine Rare /hpf; Nitrite,Urine Negative (Negative); PH, Urine 6.5 (5.0-8.0); Protein,Urine Trace (Negative); RBC,Urine 1 /hpf (0-5); Specific Gravity,Urine 1.009 (1.001-1.035); Squamous Epithelial Cell,Urine 2 /hpf (0-4); Urobilinogen,Urine <2.0 mg/dL (<2.0); WBC,Urine 3 /hpf (0-5)
[2022-05-27 07:51] LABS: Glucose,Whole Blood 434 mg/dL (70-110)
[2022-05-27] MEDS ORDERED: DEXTROSE 50% SYRINGE 50 ML IVP PRN ×2 (07:57)
[2022-05-27] MEDS ORDERED: ASPIRIN 81 MG PO SCH (09:00)
[2022-05-27] MEDS ORDERED: FUROSEMIDE 40 MG TAB PO SCH (09:00)
[2022-05-27] MEDS ORDERED: CLOPIDOGREL 75 MG TAB PO SCH (09:00)
[2022-05-27 09:01] LABS: African American GFR (CKD) 106.3 (60.0-200.0); Albumin 3.9 g/dL (3.8-4.9); Albumin/Globulin Ratio 1.5 (1.60-3.17); BUN/Creat Ratio 11.33 Ratio (12.00-20.00); Blood Urea Nitrogen 6.8 mg/dL (9.0-27.0); Calcium 8.6 mg/dL (8.7-10.3); Globulin 2.6 g/dL (1.6-3.3); Magnesium 1.8 mg/dL (1.5-2.4); Non-African American GFR(CKD) 91.7 (60.0-200.0); Potassium 4.1 mmol/L (3.5-5.5); Total Bilirubin 0.9 mg/dL (0.30-1.20); Total Protein 6.5 g/dL (6.2-8.2)
[2022-05-27] MEDS: FUROSEMIDE 10 MG/ML 4 ML VIAL IV SCH (09:15)
[2022-05-27] MEDS: FUROSEMIDE 40 MG TAB PO SCH ×2 (09:19→16:55)
[2022-05-27] MEDS: INSULIN ASPART (NovoLOG) 100 UNIT/ML VIAL SQ SCH ×4 (09:19→20:39)
[2022-05-27] MEDS: HEPARIN SODIUM,PORCINE/PF 5,000 UNIT/0.5 ML SYRINGE SQ SCH (10:04)
[2022-05-27] MEDS: DILTIAZEM CD 120 MG CAP.ER.24H PO SCH (10:05)
[2022-05-27] MEDS: LINAGLIPTIN 5 MG TABLET PO SCH (10:05)
[2022-05-27] MEDS: SPIRONOLACTONE 25 MG TAB PO SCH (10:06)
[2022-05-27] MEDS: glipiZIDE 5 MG TAB PO SCH ×2 (10:06→16:57)
[2022-05-27] MEDS: METOPROLOL TARTRATE 50 MG TAB PO SCH ×2 (10:06→20:04)
[2022-05-27] MEDS: PANTOPRAZOLE 40 MG TABLET PO SCH (10:07)
[2022-05-27] MEDS: LOSARTAN 25 MG TAB PO SCH (10:07)
--- NOTE | 2022-05-27 10:25 | CA ---
Transthoracic Echo Report Name: Mark Moore Age: 71 Gender: F : 1950 Exam Date: 05/27/2022 07:33 Exam Location: [facility] Ht (in): 62 Wt (lb): 200 Ordering Physician: Rasheed Grossman MD Attending/Referring Phys: Informatics Nurse Specialist Procedure CPT: Indications: Heart failure Cardiac Hx: Cabg Technical Quality: Good Contrast 1: Total Dose (mL): Contrast 2: Total Dose (mL): MEASUREMENTS (Male / Female) Normal Values 2D ECHO LV Diastolic Diameter PLAX 4.6 cm 4.2 - 5.9 / 3.9 - 5.3 cm LV Systolic Diameter PLAX 3.7 cm IVS Diastolic Thickness 1.5 cm 0.6 - 1.0 / 0.6 - 0.9 cm LVPW Diastolic Thickness 1.3 cm 0.6 - 1.0 / 0.6 - 0.9 cm LV Relative Wall Thickness 0.6 RV Internal Dim ED PLAX 2.8 cm LA Volume 52.9 cm??? 18 - 58 / 22 - 52 cm??? M-MODE Aortic Root Diameter MM 3.4 cm LA Systolic Diameter MM 3.3 cm LA Ao Ratio MM 0.9 MV E Point Septal Separation 1.8 cm AV Cusp Separation MM 1.8 cm DOPPLER AV Peak Velocity 98.6 cm/s AV Peak Gradient 3.9 mmHg MV Area PHT 3.6 cm??? Mitral E Point Velocity 116.6 cm/s Mitral A Point Velocity 92.0 cm/s Mitral E to A Ratio 1.3 MV Deceleration Time 209.9 ms MV E' Velocity 4.4 cm/s Mitral E to MV E' Ratio 26.4 TR Peak Velocity 150.6 cm/s TR Peak Gradient 9.1 mmHg Right Ventricular Systolic Press 14.1 mmHg FINDINGS Left Ventricle Grade 1 diastolic dysfunction. Left ventricular ejection fraction is estimated at 30%. Left ventricular cavity size normal. Right Ventricle Normal right ventricular size and function. Right Atrium Normal right atrial size. Left Atrium Normal left atrial size. Mitral Valve Structurally normal mitral valve without significant stenosis or prolapse. There is mild mitral regurgitation. Mitral valve thickened. Mitral annular calcification. Aortic Valve Structurally normal aortic valve without significant sclerosis or stenosis. There is no aortic regurgitation. Tricuspid Valve Structurally normal tricuspid valve without significant stenosis. Pulmonary artery systolic pressure is normal. Mild tricuspid regurgitation. Pulmonic Valve Structurally normal pulmonic valve without significant stenosis. There is no pulmonic regurgitation. Pericardium Normal pericardium without effusion. Aorta Normal aortic root dimension. CONCLUSIONS Reduced LV systolic function ejection fraction of 30% Previewed by: Dr. Ravin Prieto MD (Electronically Signed) Final Date: 27 May 2022 10:24
[2022-05-27] MEDS: traMADol 50 MG TAB PO SCH ×2 (10:41→20:04)
--- NOTE | 2022-05-27 11:01 | P.CRDCN ---
History of Present Illness Consult date: 05/27/22 History of present illness: HISTORY OF PRESENT ILLNESS: This is a 71-year-old female with a past medical history significant for coronary artery disease with previous CABG, severe ischemic cardiomyopathy, and congestive heart failure. Patient states she does not follow the spooling operator. Patient examined at the bedside. Patient presented to the hospital secondary to increased shortness of breath. Patient was found to be anemic with a hemoglobin of 6.8. We have been asked to see the patient in consultation for CHF. Clinically, the patient does not appear to be in acute congestive heart failure. Her shortness of breath seems to be related to her anemia. She denies any chest pain or pressure. Vital signs are stable. * EKG reveals sinus tachycardia with a heart rate of 119 * Chest xray mild bibasilar hazy opacities, probably atelectasis * Laboratory data: WBC 6.1. Hemoglobin 6.8. Platelet count 388. Sodium 129. Potassium 4.1. BUN 6.8. Creatinine 0.6. Troponin negative 3. ProBNP 1989. * Current home cardiac medications include aspirin 81 mg daily, Lipitor 40 mg at night, Plavix 75 mg daily, Cardizem 120 mg daily, Lasix 40 mg twice a day, losartan 25 mg daily, metoprolol titrate 50 mg twice a day * Echocardiogram completed revealing ejection fraction 30%, mild MR, mild TR REVIEW OF SYSTEMS: At the time of my exam: CONSTITUTIONAL: Denies fever or chills. HEENT: Denies blurred vision, vision changes, or eye pain. Denies hemoptysis CARDIOVASCULAR: Denies chest pain. Denies orthopnea. Denies PND. Denies palpitations RESPIRATORY: Denies shortness of breath. GASTROINTESTINAL: Denies abdominal pain. Denies nausea or vomiting. HEMATOLOGIC: Denies bleeding disorders. GENITOURINARY: Denies any blood in urine. SKIN: Denies pruitis. Denies rash. PHYSICAL EXAM: VITAL SIGNS: Reviewed. GENERAL: Well-developed in no acute distress. HEENT: Head is normocephalic. Pupils are equal, round. Sclerae anicteric. Mucous membranes of the mouth are moist. Neck supple. No JVD or thyromegaly LUNGS: Respirations even and unlabored. Lungs essentially clear to auscultation bilaterally. HEART: Regular rate and rhythm. S1 and S2 heard. ABDOMEN: Soft. Nondistended. Nontender. EXTREMITIES: Normal range of motion. No clubbing or cyanosis. Peripheral pulses intact. trace lower extremity edema NEUROLOGIC: Awake and alert. Oriented x 3. ASSESSMENT: Acute on chronic anemia Shortness of breath, secondary to anemia Coronary artery disease with previous CABG Severe ischemic cardiomyopathy Chronic congestive heart failure with reduced ejection fraction, currently euvolemic Hypertension Hyperlipidemia PLAN: Clinically, the patient does not appear to be in acute congestive heart failure. Her shortness of breath seems to be related to her anemia Resume home cardiac medications Patient currently stable from a cardiac standpoint. We will sign off. Please reconsult if needed. Nurse practitioner note has been reviewed by physician. Signing provider agrees with the documented findings, assessment, and plan of care. 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 Poly substance abuse 07/19/21 admitted for Acute delirium History of Any Multi-Drug Resistant Organisms: None Reported Past Surgical History: Cholecystectomy, Coronary Bypass/CABG, Hernia Repair, Orthopedic Surgery, Tonsillectomy, Tubal Ligation Additional Past Surgical History / Comment(s): LEFT KNEE ARTHROSCOPY, BMT AND MYRINGOPLASTY, umbilical hernia repair, CABG 2020 Past Anesthesia/Blood Transfusion Reactions: No Reported Reaction Additional Past Anesthesia/Blood Transfusion Reaction / Comment(s): STATES AFTER LAST EAR SX (11/2013) HAD SORE MUSCLES AND WAS WEAK FOR 3-4 DAYS Past Psychological History: Unable to Obtain Smoking Status: Former smoker Past Alcohol Use History: None Reported Additional Past Alcohol Use History / Comment(s): SMOKED 1PPD , SMOKED 10 YEARS . QUIT SMOKING 20 YRS AGO OR MORE. Past Drug Use History: Marijuana, Methamphetamine Additional Drug Use History / Comment(s): MEDICAL CARD. Patient admitted 07/16/21 positive for methamphetamines; amphetamines; benzos; opiates; and marijuana - Past Family History Sister(s) Family Medical History: Cancer Brother(s) Family Medical History: Cancer Additional Family Medical History / Comment(s): brother had heart valve replacement Mother Family Medical History: Chest Pain / Angina, Diabetes Mellitus, Hypertension Father History Unknown: Yes Medications and Allergies Home Medications Medication Instructions Recorded Confirmed Type traMADol HCl [Ultram] 100 mg PO BID 11/04/15 05/26/22 History Baclofen 10 mg PO TID 09/14/16 05/26/22 History Clopidogrel [Plavix] 75 mg PO DAILY #30 tab 10/15/21 05/26/22 Rx Diltiazem Cd [Cardizem CD] 120 mg PO DAILY #30 capsule 10/15/21 05/26/22 Rx Metoprolol Tartrate [Lopressor] 50 mg PO BID #60 tab 10/15/21 05/26/22 Rx Pantoprazole [Protonix] 40 mg PO AC-BRKFST #30 tab 10/15/21 05/26/22 Rx Losartan [Cozaar] 25 mg PO DAILY 11/26/21 05/26/22 History Furosemide [Lasix] 40 mg PO BID@0900,1600 30 Days #60 12/01/21 05/26/22 Rx tab Aspirin EC [Ecotrin Low Dose] 81 mg PO DAILY 01/13/22 05/26/22 History Atorvastatin [Lipitor] 40 mg PO HS 01/13/22 05/26/22 History glipiZIDE [Glucotrol] 5 mg PO AC-BID 30 Days #60 tab 01/15/22 05/26/22 Rx Ibuprofen [Motrin] 800 mg PO Q8H PRN 05/26/22 05/26/22 History Pramipexole [Mirapex] 1 mg PO HS 05/26/22 05/26/22 History sitaGLIPtin [Januvia] 100 mg PO DAILY 05/26/22 05/26/22 History Allergies Allergy/AdvReac Type Severity Reaction Status Date / Time cephalexin Allergy Anaphylaxis Verified 05/26/22 20:50 cephalexin monohydrate Allergy Anaphylaxis Verified 05/26/22 20:50 [From Keflex] Sulfa (Sulfonamide Allergy Rash/Hives Verified 05/26/22 20:50 Antibiotics) Physical Exam Vitals: Vital Signs Temp Pulse Pulse Resp BP BP Pulse Ox 05/27/22 07:41 98.3 F 71 111/58 97 05/27/22 04:36 98.5 F 87 16 95/59 98 05/27/22 02:20 99.2 F 100 18 106/71 98 05/27/22 00:03 99.5 F 96 20 102/69 97 05/26/22 23:33 98.9 F 107 H 16 113/58 99 05/26/22 23:23 99.0 F 104 H 16 111/70 95 05/26/22 22:15 98.4 F 115 H 17 109/68 97 05/26/22 19:50 107 H 17 94/82 98 05/26/22 19:15 111 H 18 139/79 99 05/26/22 17:11 98.7 F 120 H 20 109/68 98 Intake and Output 05/26/22 05/27/22 05/27/22 22:59 06:59 14:59 Intake Total 760 Output Total 300 Balance 460 Intake: Oral 450 Blood Product 310 Rc As-1 Unit 310 [id number] Output: Urine 300 Other: Voiding Method Bedside Commode Weight 90.718 kg 90.9 kg Results 05/26/22 17:18 05/27/22 05:03 Cardiac Enzymes 05/26/22 05/26/22 05/26/22 Range/Units 17:18 17:18 20:41 AST 27 (14-36) U/L Troponin I 0.025 0.032 (0.000-0.034) ng/mL 05/26/22 05/27/22 Range/Units 23:00 05:03 AST 18 (14-36) U/L Troponin I 0.033 (0.000-0.034) ng/mL Coagulation 05/26/22 Range/Units 17:18 PT 10.5 (9.0-12.0) sec APTT 22.2 (22.0-30.0) sec CBC 05/26/22 Range/Units 17:18 WBC 6.1 (3.8-10.6) k/uL RBC 4.03 (3.80-5.40) m/uL Hgb 6.8 L* (11.4-16.0) gm/dL Hct 26.2 L (34.0-46.0) % Plt Count 388 (150-450) k/uL Comprehensive Metabolic Panel 05/26/22 05/27/22 Range/Units 17:18 05:03 Sodium 126 L 129 L (137-145) mmol/L Potassium 4.2 4.1 (3.5-5.1) mmol/L Chloride 95 L 94 L (98-107) mmol/L Carbon Dioxide 24 26.0 (22-30) mmol/L BUN 7 6.8 L (7-17) mg/dL Creatinine 0.54 0.6 (0.52-1.04) mg/dL Glucose 447 H 319 H (74-99) mg/dL Calcium 8.6 8.6 L (8.4-10.2) mg/dL AST 27 18 (14-36) U/L ALT 12 11 (4-34) U/L Alkaline Phosphatase 117 104 (38-126) U/L Total Protein 6.2 L 6.5 (6.3-8.2) g/dL Albumin 3.6 3.9 (3.5-5.0) g/dL Current Medications Generic Name Dose Route Start Last Admin Trade Name José Miguelq PRN Reason Stop Dose Admin Aspirin 81 mg 05/27/22 09:00 05/27/22 10:05 Aspirin 81 Mg PO 81 mg DAILY DIMA Administration Atorvastatin Calcium 40 mg 05/26/22 21:00 05/26/22 20:48 Atorvastatin 40 Mg Tab PO 40 mg HS DIMA Administration Baclofen 10 mg 05/27/22 21:00 Baclofen 10 Mg Tab PO BID DIMA Clopidogrel Bisulfate 75 mg 05/27/22 09:00 05/27/22 10:07 Clopidogrel 75 Mg Tab PO 75 mg DAILY DIMA Administration Dextrose/Water 25 ml 05/27/22 07:57 Dextrose 50% Syringe 50 Ml IVP PER PROTOCOL PRN Hypoglycemia Protocol Dextrose/Water 50 ml 05/27/22 07:57 Dextrose 50% Syringe 50 Ml IVP PER PROTOCOL PRN Hypoglycemia Protocol Diltiazem HCl 120 mg 05/27/22 09:00 05/27/22 10:05 Diltiazem Cd 120 Mg Cap.Er.24h PO 120 mg DAILY DIMA Administration Furosemide 40 mg 05/27/22 09:10 05/27/22 09:19 Furosemide 40 Mg Tab PO 40 mg BID@0900,1600 DIMA Administration Glipizide 5 mg 05/27/22 07:30 05/27/22 10:06 Glipizide 5 Mg Tab PO 5 mg AC-BID DIMA Administration Heparin Sodium (Porcine) 5,000 unit 05/27/22 00:00 05/27/22 10:04 Heparin Sodium,Porcine/Pf 5,000 Unit/0.5 Ml Syringe SQ 5,000 unit Q8HR DIMA Administration Insulin Aspart 0 unit 05/27/22 08:02 05/27/22 09:19 Insulin Aspart (Novolog) 100 Unit/Ml Vial SQ 6 unit ACHS DIMA Administration Protocol Linagliptin 5 mg 05/27/22 09:00 05/27/22 10:05 Linagliptin 5 Mg Tablet PO 5 mg DAILY DIMA Administration Losartan Potassium 25 mg 05/27/22 09:00 05/27/22 10:07 Losartan 25 Mg Tab PO 25 mg DAILY DIMA Administration Metoprolol Tartrate 50 mg 05/26/22 21:00 05/27/22 10:06 Metoprolol Tartrate 50 Mg Tab PO 50 mg BID DIMA Administration Naloxone HCl 0.2 mg 05/26/22 19:46 Naloxone 0.4 Mg/Ml 1 Ml Vial IV Q2M PRN Opioid Reversal Pantoprazole Sodium 40 mg 05/27/22 07:30 05/27/22 10:07 Pantoprazole 40 Mg Tablet PO 40 mg AC-BRKFST DIMA Administration Pramipexole Dihydrochloride 1 mg 05/27/22 21:00 Pramipexole 1 Mg Tab PO [facility] Spironolactone 25 mg 05/27/22 09:00 05/27/22 10:06 Spironolactone 25 Mg Tab PO 25 mg DAILY DIMA Administration Tramadol HCl 100 mg 05/27/22 09:45 05/27/22 10:41 Tramadol 50 Mg Tab PO 100 mg BID DIMA Administration Intake and Output 05/26/22 05/27/22 05/27/22 22:59 06:59 14:59 Intake Total 760 Output Total 300 Balance 460 Intake: Oral 450 Blood Product 310 Rc As-1 Unit 310 [id number] Output: Urine 300 Other: Voiding Method Bedside Commode Weight 90.718 kg 90.9 kg 05/26/22 17:18 05/27/22 05:03
[2022-05-27 11:03] LABS: Basophils # (A) 0.06 X 10*3/uL (0.00-0.10); Basophils % (A) 1.1 %; Eosinophils # (A) 0.49 X 10*3/uL (0.04-0.35); Eosinophils % (A) 8.6 %; HCT 28.7 % (37.2-46.3); HGB 7.3 g/dL (12.0-15.0); Immature Grans, Automated 0.4 %; Lymphocytes # (A) 1.86 X 10*3/uL (0.90-5.00); Lymphocytes % (A) 32.7 %; MCH 16.6 pg (27.0-32.0); MCHC 25.4 g/dL (32.0-37.0); MCV 65.4 fL (80.0-97.0); Mean Platelet Volume 10.4 fL (9.5-12.2); Monocytes # (A) 0.41 X 10*3/uL (0.20-1.00); Monocytes % (A) 7.2 %; NRBC Per 100 WBC 0 /100 WBCS (0.0-0.0); Neutrophils # (A) 2.84 X 10*3/uL (1.80-7.70); Platelet Count 371 X 10*3/uL (140-440); RBC 4.39 X 10*6/uL (4.10-5.20); RDW 21.1 % (11.5-14.5); WBC 5.68 X 10*3/uL (4.50-10.00)
[2022-05-27 11:04] LABS: Hypochromasia (M) 2+; Microcytosis (M) 3+; Rouleaux PRESENT
--- NOTE | 2022-05-27 12:08 | CT ---
EXAMINATION TYPE: CT angio chest CT DLP: 350 mGycm, Automated exposure control for dose reduction was used. DATE OF EXAM: 05/27/2022 11:46 AM COMPARISON: 10/06/2021 CLINICAL INDICATION:Female, 71 years old with history of dyspnea, elevated D Dimer; TECHNIQUE/CONTRAST: CTA scan of the thorax is performed with IV Contrast, patient injected with 72 mL of Isovue 370, pulm onary embolism protocol. MIP images are created and reviewed. FINDINGS: Pulmonary Artery: There is no evidence for a filling defect within the pulmonary vasculature to sugge st acute pulmonary embolism. The pulmonary artery is increased in thickness measuring up to 3.6 cm. Lungs/Pleura: No evidence of focal consolidation, pleural effusion or pneumothorax. Left upper lobe p ulmonary nodule measuring 5 mm Image 39, series 5. Airway: Large airways are patent. Heart: Heart is mildly enlarged for size. Moderate to severe coronary artery atherosclerosis with marie pected CABG changes. Mitral valve annular calcifications along with aortic valve leaflet calcificatio ns. Vasculature: No evidence of aortic aneurysm. Atherosclerosis of the arterial vasculature. Mediastinum: No gross evidence of adenopathy. Musculoskeletal: No acute osseous abnormalities, sternotomy wires are present. There is multilevel di sc degeneration changes. Soft Tissues: Unremarkable. Lower neck: Enlarged right thyroid gland with underlying nodules identified. Upper Abdomen: No significant findings. IMPRESSION: 1. No evidence of pulmonary embolism. 2. Moderate to severe coronary artery atherosclerosis with postsurgical changes. 3. Large right thyroid gland with underlying nodules. Findings are stable to 10/06/2021, Consider ded icated thyroid ultrasound for further evaluation if not recently performed. 4. Left upper lobe 5 mm pulmonary nodule stable back to at least 10/06/2021. 5. Mild cardiomegaly. 6. Findings of pulmonary hypertension.
[2022-05-27 12:34] LABS: Glucose,Whole Blood 356 mg/dL (70-110)
--- NOTE | 2022-05-27 14:01 | P.HPIM ---
History of Present Illness H&P Date: 05/27/22 Mark Moore, is a 71-year-old female who presented to [facility] emergency room with a chief complaint of worsening shortness of breath She was evaluated in the emergency room vital examination on presentation revealed a temperature of 98.7 pulse 120 respiration 20 blood pressure 109/68 pulse ox 98% on room air Laboratory data revealed a white blood count of 6.1 hemoglobin 6.8 platelet count 388 sodium 126 potassium 4.2 chloride 95 CO2 24 BUN 7 creatinine 0.54 lactic acid 3.3 d-dimer 0.68 Testing in the emergency room revealed EKG revealed sinus tachycardia with left ventricular hypertrophy, chest x-ray revealed bibasilar atelectasis Patient was admitted to medical floor for further evaluation and treatment Past medical history is significant for history of hypertension, history of hyperlipidemia, history of [id number] diabetes mellitus, history of coronary artery disease with coronary artery bypass graft surgery in September 2021 history of osteoarthritis and history of degenerative disc disease. On review of systems patient is alert and oriented 3 in no apparent distress she is complaining of shortness of breath especially with any activity otherwise she denies any complaints there is no fever or chills no headache or dizziness no chest pain no cough no nausea or vomiting no abdominal pain no diarrhea no blood in the stools no burning with urination no frequency or urgency and dysuria. 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 Poly substance abuse 07/19/21 admitted for Acute delirium History of Any Multi-Drug Resistant Organisms: None Reported Past Surgical History: Cholecystectomy, Coronary Bypass/CABG, Hernia Repair, Orthopedic Surgery, Tonsillectomy, Tubal Ligation Additional Past Surgical History / Comment(s): LEFT KNEE ARTHROSCOPY, BMT AND MYRINGOPLASTY, umbilical hernia repair, CABG 2020 Past Anesthesia/Blood Transfusion Reactions: No Reported Reaction Additional Past Anesthesia/Blood Transfusion Reaction / Comment(s): STATES AFTER LAST EAR SX (11/2013) HAD SORE MUSCLES AND WAS WEAK FOR 3-4 DAYS Past Psychological History: Unable to Obtain Smoking Status: Former smoker Past Alcohol Use History: None Reported Additional Past Alcohol Use History / Comment(s): SMOKED 1PPD , SMOKED 10 YEARS . QUIT SMOKING 20 YRS AGO OR MORE. Past Drug Use History: Marijuana, Methamphetamine Additional Drug Use History / Comment(s): MEDICAL CARD. Patient admitted 07/16/21 positive for methamphetamines; amphetamines; benzos; opiates; and marijuana - Past Family History Sister(s) Family Medical History: Cancer Brother(s) Family Medical History: Cancer Additional Family Medical History / Comment(s): brother had heart valve replacement Mother Family Medical History: Chest Pain / Angina, Diabetes Mellitus, Hypertension Father History Unknown: Yes Medications and Allergies Home Medications Medication Instructions Recorded Confirmed Type traMADol HCl [Ultram] 100 mg PO BID 11/04/15 05/26/22 History Baclofen 10 mg PO TID 09/14/16 05/26/22 History Clopidogrel [Plavix] 75 mg PO DAILY #30 tab 10/15/21 05/26/22 Rx Diltiazem Cd [Cardizem CD] 120 mg PO DAILY #30 capsule 10/15/21 05/26/22 Rx Metoprolol Tartrate [Lopressor] 50 mg PO BID #60 tab 10/15/21 05/26/22 Rx Pantoprazole [Protonix] 40 mg PO AC-BRKFST #30 tab 10/15/21 05/26/22 Rx Losartan [Cozaar] 25 mg PO DAILY 11/26/21 05/26/22 History Furosemide [Lasix] 40 mg PO BID@0900,1600 30 Days #60 12/01/21 05/26/22 Rx tab Aspirin EC [Ecotrin Low Dose] 81 mg PO DAILY 01/13/22 05/26/22 History Atorvastatin [Lipitor] 40 mg PO HS 01/13/22 05/26/22 History glipiZIDE [Glucotrol] 5 mg PO AC-BID 30 Days #60 tab 01/15/22 05/26/22 Rx Ibuprofen [Motrin] 800 mg PO Q8H PRN 05/26/22 05/26/22 History Pramipexole [Mirapex] 1 mg PO HS 05/26/22 05/26/22 History sitaGLIPtin [Januvia] 100 mg PO DAILY 05/26/22 05/26/22 History Allergies Allergy/AdvReac Type Severity Reaction Status Date / Time cephalexin Allergy Anaphylaxis Verified 05/26/22 20:50 cephalexin monohydrate Allergy Anaphylaxis Verified 05/26/22 20:50 [From Keflex] Sulfa (Sulfonamide Allergy Rash/Hives Verified 05/26/22 20:50 Antibiotics) Physical Exam Vitals: Vital Signs Temp Pulse Pulse Resp BP BP Pulse Ox 05/27/22 07:41 98.3 F 71 111/58 97 05/27/22 04:36 98.5 F 87 16 95/59 98 05/27/22 02:20 99.2 F 100 18 106/71 98 05/27/22 00:03 99.5 F 96 20 102/69 97 05/26/22 23:33 98.9 F 107 H 16 113/58 99 05/26/22 23:23 99.0 F 104 H 16 111/70 95 05/26/22 22:15 98.4 F 115 H 17 109/68 97 05/26/22 19:50 107 H 17 94/82 98 05/26/22 19:15 111 H 18 139/79 99 05/26/22 17:11 98.7 F 120 H 20 109/68 98 Intake and Output 05/26/22 05/27/22 05/27/22 22:59 06:59 14:59 Intake Total 760 Output Total 300 Balance 460 Intake: Oral 450 Blood Product 310 Rc As-1 Unit 310 [id number] Output: Urine 300 Other: Weight 90.718 kg 90.9 kg In general patient is alert and oriented x 3 in no distress HEENT head normocephalic and atraumatic Neck is supple no JVD no goiter no lymphadenopathy no carotid bruit Chest examination is clear to auscultation no crackles no wheezing Cardiac exam reveals regular heart sounds S1 and S2 no gallops no murmurs Abdomen is soft nontender no organomegaly with normal bowel sounds Extremity exam reveals no edema no cyanosis or clubbing Neurological examination reveals no gross focal deficits Results CBC & Chem 7: 05/27/22 05:03 05/27/22 05:03 Labs: Abnormal Lab Results - Last 24 Hours (Table) 05/26/22 05/26/22 05/26/22 Range/Units 17:18 17:18 17:18 Hgb 6.8 L* (11.4-16.0) gm/dL Hct 26.2 L (34.0-46.0) % MCV 65.1 L (80.0-100.0) fL MCH 16.8 L (25.0-35.0) pg MCHC 25.8 L (31.0-37.0) g/dL RDW 17.1 H (11.5-15.5) % D-Dimer 0.68 H (<0.60) mg/L FEU Sodium 126 L (137-145) mmol/L Chloride 95 L (98-107) mmol/L Glucose 447 H (74-99) mg/dL POC Glucose (mg/dL) (70-110) mg/dL Plasma Lactic Acid Angel (0.7-2.0) mmol/L Total Protein 6.2 L (6.3-8.2) g/dL Urine Protein (Negative) Urine Glucose (UA) (Negative) Ur Leukocyte Esterase (Negative) Urine Mucus (None) /hpf Crossmatch 05/26/22 05/26/22 05/26/22 Range/Units 19:55 20:39 23:00 Hgb (11.4-16.0) gm/dL Hct (34.0-46.0) % MCV (80.0-100.0) fL MCH (25.0-35.0) pg MCHC (31.0-37.0) g/dL RDW (11.5-15.5) % D-Dimer (<0.60) mg/L FEU Sodium (137-145) mmol/L Chloride (98-107) mmol/L Glucose (74-99) mg/dL POC Glucose (mg/dL) 403 H (70-110) mg/dL Plasma Lactic Acid Angel 3.3 H* (0.7-2.0) mmol/L Total Protein (6.3-8.2) g/dL Urine Protein (Negative) Urine Glucose (UA) (Negative) Ur Leukocyte Esterase (Negative) Urine Mucus (None) /hpf Crossmatch See Detail 05/27/22 05/27/22 05/27/22 Range/Units 01:41 01:50 07:48 Hgb (11.4-16.0) gm/dL Hct (34.0-46.0) % MCV (80.0-100.0) fL MCH (25.0-35.0) pg MCHC (31.0-37.0) g/dL RDW (11.5-15.5) % D-Dimer (<0.60) mg/L FEU Sodium (137-145) mmol/L Chloride (98-107) mmol/L Glucose (74-99) mg/dL POC Glucose (mg/dL) 434 H (70-110) mg/dL Plasma Lactic Acid Angel 2.1 H* (0.7-2.0) mmol/L Total Protein (6.3-8.2) g/dL Urine Protein Trace H (Negative) Urine Glucose (UA) 4+ H (Negative) Ur Leukocyte Esterase Trace H (Negative) Urine Mucus Rare H (None) /hpf Crossmatch Thrombosis Risk Factor Assmnt - Choose All That Apply Any of the Below Risk Factors Present?: Yes Each Factor Represents 1 point: Heart failure (<1month), Obesity (BMI >25) Other Risk Factors: Yes Each Risk Factor Represents 2 Points: Age 61-74 years Other congenital or acquired thrombophilia - If yes, enter type in comment: No Thrombosis Risk Factor Assessment Total Risk Factor Score: 4 Thrombosis Risk Factor Assessment Level: Moderate Risk Assessment and Plan Plan: Severe shortness of breath, multifactorial Elevated d-dimer and will check CT angiogram of the chest to rule out pulmonary embolism Anemia, hemoglobin down to 6.6 on presentation, patient will receive 1 unit of red blood cells, consultation for gastroenterology initiated for GI workup Underlying history of coronary artery disease, with history of recent coronary artery bypass graft surgery Underlying history of obstructive sleep apnea Underlying history of hypertension Underlying history of hyperlipidemia Underlying history of [id number] diabetes mellitus At this time patient is admitted to telemetry floor She will receive 1 unit of red blood cell transfusion CT angiogram of the chest ordered to rule out pulmonary embolism Cardiology consultation and GI consultation initiated For DVT prophylaxis SCD stockings Will follow closely
--- NOTE | 2022-05-27 14:30 | P.GSCN ---
History of Present Illness Consult date: 05/27/22 History of present illness: CHIEF COMPLAINT: Shortness of breath HISTORY OF PRESENT ILLNESS: This is a 71-year-old female who presented to the hospital with worsening shortness of breath. Initially there were concerns for possible CHF exacerbation. Patient has an EF of 30%. She was seen by cardiology service who felt the patient was euvolemic and no evidence of CHF exacerbation. Patient was found to have hemoglobin of 6.8. She did receive 1 unit of blood in the ER area did repeat hemoglobin is 7.3. Patient denies any blood in her stools or black stools. She denies any nausea or vomiting. Denies any abdominal pain. She is on Plavix and aspirin does have prior history of CABG. She takes Motrin only once a week. She had a EGD and colonoscopy in 2018 which did reveal small sliding hiatal hernia, mild antral gastritis and sigmoid diverticulosis. There is a poor bowel prep at that time. Scopes were completed by Dr. Nieto. Stool for occult blood was negative. Per ER reports that there was noted external hemorrhoids but no bleeding. Patient denies any prior history of anemia requiring blood transfusions. But per her chart there is evidence of some chronic anemia. She denies taking any iron supplements. Patient reports improvement in her shortness of breath after the blood transfusion. She denies any dizziness or lightheadedness. PAST MEDICAL HISTORY: See list. PAST SURGICAL HISTORY: See list. MEDICATIONS: See list. ALLERGIES: See list. SOCIAL HISTORY: No illicit drug use. REVIEW OF SYSTEMS: CONSTITUTIONAL: Denies fever or chills. HEENT: Denies blurred vision, vision changes, or eye pain. Denies hemoptysis CARDIOVASCULAR: Denies chest pain or pressure. RESPIRATORY: No shortness of breath. GASTROINTESTINAL: See HPI for pertinent findings HEMATOLOGIC: Denies bleeding disorders. GENITOURINARY: Denies any blood in urine or increased urinary frequency. SKIN: Denies pruitis. Denies rash. PHYSICAL EXAM: VITAL SIGNS: Reviewed GENERAL: Well-developed in no acute distress. HEENT: No sclera icterus. Extraocular movements grossly intact. Moist buccal mucosa. Head is atraumatic, normocephalic. No nasal drainage. ABDOMEN: Soft. Nondistended. Nontender NEUROLOGIC: Alert and oriented. Cranial nerves II through XII grossly intact. LABORATORY DATA: WBC 5.68 Hgb 6.8 up to 7.3 platelets 371 Sodium 129 potassium 4.1 creatinine 0.6 Glucose elevated 356 INR 1.0 Lactic acid 3.3 down to 1.4 Troponins are negative 3 1989 Stool for occult blood negative COVID-19 not detected IMAGING: Chest CTA no evidence of pulmonary embolism. Moderate to severe coronary artery atherosclerosis with postsurgical changes. Large right thyroid gland with underlying nodules. Findings are stable to 10/06/2021 consider dedicated thyroid ultrasound for further evaluation of performed. Left upper lobe 5 mm pulmonary nodule stable back to at least 10/06/2021. Mild cardiomegaly. Findings of pulmonary hypertension. ASSESSMENT: 1. Microcytic anemia with no evidence of active bleeding. Status post 1 unit of blood. 2. Symptomatically anemia with shortness of breath PLAN: -Further recommendations forthcoming per surgeon -Continue PPI -Continue to monitor for any signs or symptoms of bleeding -Continue to monitor hemoglobin -Hold plavix and Aspirin for now Thank you for this consultation Physician Clinical Nurse Specialist note has been reviewed by physician. Signing provider agrees with the documented findings, assessment, and plan of care. I have personally seen and examined the patient, reviewed the CONTROL SYSTEM MANAGER /PAs history, exam and MDM and agree with the assessment and plan as written. Based on total visit time, I have performed more than 50% of the visit. As above: Patient with symptomatic anemia. No obvious GI bleed per patient. 3 years since her last endoscopic workup and poor prep on colonoscopy at that [place]. We'll tentatively plan upper and lower endoscopy on Monday. Monitor hemoglobin. 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 Poly substance abuse 07/19/21 admitted for Acute delirium History of Any Multi-Drug Resistant Organisms: None Reported Past Surgical History: Cholecystectomy, Coronary Bypass/CABG, Hernia Repair, Orthopedic Surgery, Tonsillectomy, Tubal Ligation Additional Past Surgical History / Comment(s): LEFT KNEE ARTHROSCOPY, BMT AND MYRINGOPLASTY, umbilical hernia repair, CABG 2020 Past Anesthesia/Blood Transfusion Reactions: No Reported Reaction Additional Past Anesthesia/Blood Transfusion Reaction / Comm: STATES AFTER LAST EAR SX (11/2013) HAD SORE MUSCLES AND WAS WEAK FOR 3-4 DAYS Past Psychological History: Unable to Obtain Smoking Status: Former smoker Past Alcohol Use History: None Reported Additional Past Alcohol Use History / Comment(s): SMOKED 1PPD , SMOKED 10 YEARS . QUIT SMOKING 20 YRS AGO OR MORE. Past Drug Use History: Marijuana, Methamphetamine Additional Drug Use History / Comment(s): MEDICAL CARD. Patient admitted 07/16/21 positive for methamphetamines; amphetamines; benzos; opiates; and marijuana - Past Family History Sister(s) Family Medical History: Cancer Brother(s) Family Medical History: Cancer Additional Family Medical History / Comment(s): brother had heart valve replacement Mother Family Medical History: Chest Pain / Angina, Diabetes Mellitus, Hypertension Father History Unknown: Yes Medications and Allergies Home Medications Medication Instructions Recorded Confirmed Type traMADol HCl [Ultram] 100 mg PO BID 11/04/15 05/26/22 History Baclofen 10 mg PO TID 09/14/16 05/26/22 History Clopidogrel [Plavix] 75 mg PO DAILY #30 tab 10/15/21 05/26/22 Rx Diltiazem Cd [Cardizem CD] 120 mg PO DAILY #30 capsule 10/15/21 05/26/22 Rx Metoprolol Tartrate [Lopressor] 50 mg PO BID #60 tab 10/15/21 05/26/22 Rx Pantoprazole [Protonix] 40 mg PO AC-BRKFST #30 tab 10/15/21 05/26/22 Rx Losartan [Cozaar] 25 mg PO DAILY 11/26/21 05/26/22 History Furosemide [Lasix] 40 mg PO BID@0900,1600 30 Days #60 12/01/21 05/26/22 Rx tab Aspirin EC [Ecotrin Low Dose] 81 mg PO DAILY 01/13/22 05/26/22 History Atorvastatin [Lipitor] 40 mg PO HS 01/13/22 05/26/22 History glipiZIDE [Glucotrol] 5 mg PO AC-BID 30 Days #60 tab 01/15/22 05/26/22 Rx Ibuprofen [Motrin] 800 mg PO Q8H PRN 05/26/22 05/26/22 History Pramipexole [Mirapex] 1 mg PO HS 05/26/22 05/26/22 History sitaGLIPtin [Januvia] 100 mg PO DAILY 05/26/22 05/26/22 History Allergies Allergy/AdvReac Type Severity Reaction Status Date / Time cephalexin Allergy Anaphylaxis Verified 05/26/22 20:50 cephalexin monohydrate Allergy Anaphylaxis Verified 05/26/22 20:50 [From Keflex] Sulfa (Sulfonamide Allergy Rash/Hives Verified 05/26/22 20:50 Antibiotics) Surgical - Exam Vital Signs Temp Pulse Resp BP Pulse Ox 98.7 F 120 H 20 109/68 98 05/26/22 17:11 05/26/22 17:11 05/26/22 17:11 05/26/22 17:11 05/26/22 17:11 Results - Labs 05/27/22 05:03 05/27/22 05:03 Abnormal Lab Results - Last 24 Hours (Table) 05/26/22 05/26/22 05/26/22 Range/Units 17:18 17:18 17:18 Hgb 6.8 L* (11.4-16.0) gm/dL Hct 26.2 L (34.0-46.0) % MCV 65.1 L (80.0-100.0) fL MCH 16.8 L (25.0-35.0) pg MCHC 25.8 L (31.0-37.0) g/dL RDW 17.1 H (11.5-15.5) % Eosinophils # (0.04-0.35) X 10*3/uL D-Dimer 0.68 H (<0.60) mg/L FEU Sodium 126 L (137-145) mmol/L Chloride 95 L (98-107) mmol/L Anion Gap (10.00-18.00) mmol/L BUN (9.0-27.0) mg/dL BUN/Creatinine Ratio (12.00-20.00) Ratio Glucose 447 H (74-99) mg/dL POC Glucose (mg/dL) (70-110) mg/dL Plasma Lactic Acid Angel (0.7-2.0) mmol/L Calcium (8.7-10.3) mg/dL Total Protein 6.2 L (6.3-8.2) g/dL Albumin/Globulin Ratio (1.60-3.17) g/dL Urine Protein (Negative) Urine Glucose (UA) (Negative) Ur Leukocyte Esterase (Negative) Urine Mucus (None) /hpf Crossmatch 05/26/22 05/26/22 05/26/22 Range/Units 19:55 20:39 23:00 Hgb (11.4-16.0) gm/dL Hct (34.0-46.0) % MCV (80.0-100.0) fL MCH (25.0-35.0) pg MCHC (31.0-37.0) g/dL RDW (11.5-15.5) % Eosinophils # (0.04-0.35) X 10*3/uL D-Dimer (<0.60) mg/L FEU Sodium (137-145) mmol/L Chloride (98-107) mmol/L Anion Gap (10.00-18.00) mmol/L BUN (9.0-27.0) mg/dL BUN/Creatinine Ratio (12.00-20.00) Ratio Glucose (74-99) mg/dL POC Glucose (mg/dL) 403 H (70-110) mg/dL Plasma Lactic Acid Angel 3.3 H* (0.7-2.0) mmol/L Calcium (8.7-10.3) mg/dL Total Protein (6.3-8.2) g/dL Albumin/Globulin Ratio (1.60-3.17) g/dL Urine Protein (Negative) Urine Glucose (UA) (Negative) Ur Leukocyte Esterase (Negative) Urine Mucus (None) /hpf Crossmatch See Detail 05/27/22 05/27/22 05/27/22 Range/Units 01:41 01:50 05:03 Hgb 7.3 L (11.4-16.0) gm/dL Hct 28.7 L (34.0-46.0) % MCV 65.4 L (80.0-100.0) fL MCH 16.6 L (25.0-35.0) pg MCHC 25.4 L (31.0-37.0) g/dL RDW 21.1 H (11.5-15.5) % Eosinophils # 0.49 H (0.04-0.35) X 10*3/uL D-Dimer (<0.60) mg/L FEU Sodium (137-145) mmol/L Chloride (98-107) mmol/L Anion Gap (10.00-18.00) mmol/L BUN (9.0-27.0) mg/dL BUN/Creatinine Ratio (12.00-20.00) Ratio Glucose (74-99) mg/dL POC Glucose (mg/dL) (70-110) mg/dL Plasma Lactic Acid Angel 2.1 H* (0.7-2.0) mmol/L Calcium (8.7-10.3) mg/dL Total Protein (6.3-8.2) g/dL Albumin/Globulin Ratio (1.60-3.17) g/dL Urine Protein Trace H (Negative) Urine Glucose (UA) 4+ H (Negative) Ur Leukocyte Esterase Trace H (Negative) Urine Mucus Rare H (None) /hpf Crossmatch 05/27/22 05/27/22 05/27/22 Range/Units 05:03 07:48 12:23 Hgb (11.4-16.0) gm/dL Hct (34.0-46.0) % MCV (80.0-100.0) fL MCH (25.0-35.0) pg MCHC (31.0-37.0) g/dL RDW (11.5-15.5) % Eosinophils # (0.04-0.35) X 10*3/uL D-Dimer (<0.60) mg/L FEU Sodium 129 L (137-145) mmol/L Chloride 94 L (98-107) mmol/L Anion Gap 9.00 L (10.00-18.00) mmol/L BUN 6.8 L (9.0-27.0) mg/dL BUN/Creatinine Ratio 11.33 L (12.00-20.00) Ratio Glucose 319 H (74-99) mg/dL POC Glucose (mg/dL) 434 H 356 H (70-110) mg/dL Plasma Lactic Acid Angel (0.7-2.0) mmol/L Calcium 8.6 L (8.7-10.3) mg/dL Total Protein (6.3-8.2) g/dL Albumin/Globulin Ratio 1.50 L (1.60-3.17) g/dL Urine Protein (Negative) Urine Glucose (UA) (Negative) Ur Leukocyte Esterase (Negative) Urine Mucus (None) /hpf Crossmatch Diabetes panel 05/26/22 05/27/22 Range/Units 17:18 05:03 Sodium 126 L 129 L (137-145) mmol/L Potassium 4.2 4.1 (3.5-5.1) mmol/L Chloride 95 L 94 L (98-107) mmol/L Carbon Dioxide 24 26.0 (22-30) mmol/L BUN 7 6.8 L (7-17) mg/dL Creatinine 0.54 0.6 (0.52-1.04) mg/dL Glucose 447 H 319 H (74-99) mg/dL Calcium 8.6 8.6 L (8.4-10.2) mg/dL AST 27 18 (14-36) U/L ALT 12 11 (4-34) U/L Alkaline Phosphatase 117 104 (38-126) U/L Total Protein 6.2 L 6.5 (6.3-8.2) g/dL Albumin 3.6 3.9 (3.5-5.0) g/dL Calcium panel 05/26/22 05/27/22 Range/Units 17:18 05:03 Calcium 8.6 8.6 L (8.4-10.2) mg/dL Albumin 3.6 3.9 (3.5-5.0) g/dL Pituitary panel 05/26/22 05/27/22 Range/Units 17:18 05:03 Sodium 126 L 129 L (137-145) mmol/L Potassium 4.2 4.1 (3.5-5.1) mmol/L Chloride 95 L 94 L (98-107) mmol/L Carbon Dioxide 24 26.0 (22-30) mmol/L BUN 7 6.8 L (7-17) mg/dL Creatinine 0.54 0.6 (0.52-1.04) mg/dL Glucose 447 H 319 H (74-99) mg/dL Calcium 8.6 8.6 L (8.4-10.2) mg/dL Adrenal panel 05/26/22 05/27/22 Range/Units 17:18 05:03 Sodium 126 L 129 L (137-145) mmol/L Potassium 4.2 4.1 (3.5-5.1) mmol/L Chloride 95 L 94 L (98-107) mmol/L Carbon Dioxide 24 26.0 (22-30) mmol/L BUN 7 6.8 L (7-17) mg/dL Creatinine 0.54 0.6 (0.52-1.04) mg/dL Glucose 447 H 319 H (74-99) mg/dL Calcium 8.6 8.6 L (8.4-10.2) mg/dL Total Bilirubin 0.3 0.90 (0.2-1.3) mg/dL AST 27 18 (14-36) U/L ALT 12 11 (4-34) U/L Alkaline Phosphatase 117 104 (38-126) U/L Total Protein 6.2 L 6.5 (6.3-8.2) g/dL Albumin 3.6 3.9 (3.5-5.0) g/dL
[2022-05-27 17:19] LABS: Glucose,Whole Blood 289 mg/dL (70-110)
[2022-05-27] MEDS: ATORVASTATIN 40 MG TAB PO SCH (20:04)
[2022-05-27] MEDS: DOCUSATE 100 MG CAP PO SCH (20:04)
[2022-05-27 20:33] LABS: Glucose,Whole Blood 324 mg/dL (70-110)
[2022-05-27] MEDS: PRAMIPEXOLE 1 MG TAB PO SCH (20:39)
[2022-05-27] MEDS ORDERED: BACLOFEN 10 MG TAB PO SCH (21:00)
[2022-05-28 07:44] LABS: Glucose,Whole Blood 309 mg/dL (70-110)
[2022-05-28] MEDS: traMADol 50 MG TAB PO SCH ×2 (08:10→20:43)
[2022-05-28] MEDS: BACLOFEN 10 MG TAB PO SCH ×3 (08:11→23:04)
[2022-05-28] MEDS: DOCUSATE 100 MG CAP PO SCH ×2 (08:11→20:43)
[2022-05-28] MEDS: FUROSEMIDE 40 MG TAB PO SCH ×2 (08:11→16:25)
[2022-05-28] MEDS: PANTOPRAZOLE 40 MG TABLET PO SCH (08:11)
[2022-05-28] MEDS: METOPROLOL TARTRATE 50 MG TAB PO SCH ×2 (08:11→20:43)
[2022-05-28] MEDS: SPIRONOLACTONE 25 MG TAB PO SCH (08:11)
[2022-05-28] MEDS: LINAGLIPTIN 5 MG TABLET PO SCH (08:12)
[2022-05-28] MEDS: glipiZIDE 5 MG TAB PO SCH ×2 (08:12→17:50)
[2022-05-28] MEDS: INSULIN ASPART (NovoLOG) 100 UNIT/ML VIAL SQ SCH ×4 (08:13→20:43)
[2022-05-28 09:02] LABS: Basophils # (A) 0.06 X 10*3/uL (0.00-0.10); Basophils % (A) 0.9 %; Eosinophils # (A) 0.59 X 10*3/uL (0.04-0.35); Eosinophils % (A) 8.7 %; HCT 28.5 % (37.2-46.3); HGB 7.3 g/dL (12.0-15.0); Immature Grans, Automated 0.4 %; Lymphocytes # (A) 1.89 X 10*3/uL (0.90-5.00); Lymphocytes % (A) 27.8 %; MCH 16.9 pg (27.0-32.0); MCHC 25.6 g/dL (32.0-37.0); MCV 65.8 fL (80.0-97.0); Mean Platelet Volume 10.7 fL (9.5-12.2); Monocytes # (A) 0.57 X 10*3/uL (0.20-1.00); Monocytes % (A) 8.4 %; NRBC Per 100 WBC 0 /100 WBCS (0.0-0.0); Neutrophils # (A) 3.65 X 10*3/uL (1.80-7.70); Neutrophils % (A) 53.8 %; Platelet Count 382 X 10*3/uL (140-440); RBC 4.33 X 10*6/uL (4.10-5.20); RDW 21.1 % (11.5-14.5); WBC 6.79 X 10*3/uL (4.50-10.00)
[2022-05-28 09:10] LABS: African American GFR (CKD) 106.3 (60.0-200.0); Albumin 3.5 g/dL (3.8-4.9); Albumin/Globulin Ratio 1.4 (1.60-3.17); Anion Gap 9.6 mmol/L (10.00-18.00); BUN/Creat Ratio 18.5 Ratio (12.00-20.00); Blood Urea Nitrogen 11.1 mg/dL (9.0-27.0); Calcium 8.4 mg/dL (8.7-10.3); Carbon Dioxide 26.4 mmol/L (20.0-27.5); Globulin 2.5 g/dL (1.6-3.3); Non-African American GFR(CKD) 91.7 (60.0-200.0); Potassium 4.1 mmol/L (3.5-5.5); Total Bilirubin 0.4 mg/dL (0.30-1.20)
[2022-05-28] MEDS: DILTIAZEM CD 120 MG CAP.ER.24H PO SCH (09:30)
[2022-05-28] MEDS: LOSARTAN 25 MG TAB PO SCH (09:30)
--- NOTE | 2022-05-28 10:50 | P.PN ---
Subjective Progress Note Date: 05/28/22 Principal diagnosis: Anemia Patient doing well this morning. Says her shortness of breath is improved. Labs are pending. No rectal bleeding or melena. Objective - Vital Signs Vital signs: Vital Signs Temp 98.4 F 05/28/22 05:00 Pulse 68 05/28/22 09:29 Resp 17 05/28/22 07:13 BP 101/55 05/28/22 09:29 Pulse Ox 98 05/28/22 07:13 FiO2 Intake & Output 05/27/22 05/28/22 05/28/22 18:59 06:59 18:59 Intake Total 360 Output Total 300 Balance 360 -300 Weight 91 kg Intake: Oral 360 Output: Urine 300 Other: Voiding Method Bedside Commode Bedside Commode - Exam Abdomen: Soft, nontender, nondistended - Labs CBC & Chem 7: 05/28/22 03:47 05/28/22 03:47 Labs: Abnormal Lab Results - Last 24 Hours (Table) 05/27/22 05/27/22 05/27/22 Range/Units 05:03 05:03 12:23 Hgb 7.3 L (12.0-15.0) g/dL Hct 28.7 L (37.2-46.3) % MCV 65.4 L (80.0-97.0) fL MCH 16.6 L (27.0-32.0) pg MCHC 25.4 L (32.0-37.0) g/dL RDW 21.1 H (11.5-14.5) % Eosinophils # 0.49 H (0.04-0.35) X 10*3/uL Sodium (135-145) mmol/L Anion Gap (10.00-18.00) mmol/L Glucose (70-110) mg/dL POC Glucose (mg/dL) 356 H (70-110) mg/dL Hemoglobin A1c 13.0 H (0.0-6.0) % Calcium (8.7-10.3) mg/dL Total Protein (6.2-8.2) g/dL Albumin (3.8-4.9) g/dL Albumin/Globulin Ratio (1.60-3.17) g/dL 05/27/22 05/27/22 05/28/22 Range/Units 17:17 20:32 03:47 Hgb 7.3 L (12.0-15.0) g/dL Hct 28.5 L (37.2-46.3) % MCV 65.8 L (80.0-97.0) fL MCH 16.9 L (27.0-32.0) pg MCHC 25.6 L (32.0-37.0) g/dL RDW 21.1 H (11.5-14.5) % Eosinophils # 0.59 H (0.04-0.35) X 10*3/uL Sodium (135-145) mmol/L Anion Gap (10.00-18.00) mmol/L Glucose (70-110) mg/dL POC Glucose (mg/dL) 289 H 324 H (70-110) mg/dL Hemoglobin A1c (0.0-6.0) % Calcium (8.7-10.3) mg/dL Total Protein (6.2-8.2) g/dL Albumin (3.8-4.9) g/dL Albumin/Globulin Ratio (1.60-3.17) g/dL 05/28/22 05/28/22 Range/Units 03:47 07:43 Hgb (12.0-15.0) g/dL Hct (37.2-46.3) % MCV (80.0-97.0) fL MCH (27.0-32.0) pg MCHC (32.0-37.0) g/dL RDW (11.5-14.5) % Eosinophils # (0.04-0.35) X 10*3/uL Sodium 132 L (135-145) mmol/L Anion Gap 9.60 L (10.00-18.00) mmol/L Glucose 292 H (70-110) mg/dL POC Glucose (mg/dL) 309 H (70-110) mg/dL Hemoglobin A1c (0.0-6.0) % Calcium 8.4 L (8.7-10.3) mg/dL Total Protein 6.0 L (6.2-8.2) g/dL Albumin 3.5 L (3.8-4.9) g/dL Albumin/Globulin Ratio 1.40 L (1.60-3.17) g/dL Assessment and Plan (1) Symptomatic anemia Narrative/Plan: 71-year-old female with anemia. Options discussed again with the patient. We'll proceed with upper and lower endoscopy on Monday. Current Visit: Yes Status: Acute Code(s): D64.9 - ANEMIA, UNSPECIFIED SNOMED Code(s): 123413840
[2022-05-28 12:39] LABS: Glucose,Whole Blood 465 mg/dL (70-110)
[2022-05-28 12:39] LABS: Glucose,Whole Blood 418 mg/dL (70-110)
[2022-05-28] MEDS ORDERED: INSULIN ASPART (NovoLOG) 100 UNIT/ML VIAL SQ ONE (13:01)
--- NOTE | 2022-05-28 14:08 | P.PN ---
Subjective Progress Note Date: 05/28/22 Mark Moore, is a 71-year-old female who presented to [facility] emergency room with a chief complaint of worsening shortness of breath She was evaluated in the emergency room vital examination on presentation revealed a temperature of 98.7 pulse 120 respiration 20 blood pressure 109/68 pulse ox 98% on room air Laboratory data revealed a white blood count of 6.1 hemoglobin 6.8 platelet count 388 sodium 126 potassium 4.2 chloride 95 CO2 24 BUN 7 creatinine 0.54 lactic acid 3.3 d-dimer 0.68 Testing in the emergency room revealed EKG revealed sinus tachycardia with left ventricular hypertrophy, chest x-ray revealed bibasilar atelectasis Patient was admitted to medical floor for further evaluation and treatment Past medical history is significant for history of hypertension, history of hyperlipidemia, history of wzw-kejvgde-gcmhtecso diabetes mellitus, history of coronary artery disease with coronary artery bypass graft surgery in September 2021 history of osteoarthritis and history of degenerative disc disease. On review of systems patient is alert and oriented 3 in no apparent distress she is complaining of shortness of breath especially with any activity otherwise she denies any complaints there is no fever or chills no headache or dizziness no chest pain no cough no nausea or vomiting no abdominal pain no diarrhea no blood in the stools no burning with urination no frequency or urgency and dysuria. On 05/28/2022 patient was seen and examined on the medical floor she is alert and oriented 3 in no apparent distress there is no fever or chills no headache or dizziness no chest pain no shortness of breath no cough no nausea or vomiting no abdominal pain no diarrhea no blood in the stools no burning with urination no frequency or urgency and no hematuria. So far this admission patient has received 1 unit of red blood cells, hemoglobin today 7.3, will continue to monitor she was seen by general surgery and plan is for EGD and colonoscopy on Monday Objective - Vital Signs Vital signs: Vital Signs Temp 98.4 F 05/28/22 05:00 Pulse 71 05/28/22 07:13 Resp 17 05/28/22 07:13 BP 98/60 05/28/22 07:13 Pulse Ox 98 05/28/22 07:13 FiO2 Intake & Output 05/27/22 05/28/22 05/28/22 18:59 06:59 18:59 Intake Total 360 Balance 360 Weight 91 kg Intake: Oral 360 Other: Voiding Method Bedside Commode Bedside Commode - Exam In general patient is alert and oriented x 3 in no distress HEENT head normocephalic and atraumatic Neck is supple no JVD no goiter no lymphadenopathy no carotid bruit Chest examination is clear to auscultation no crackles no wheezing Cardiac exam reveals regular heart sounds S1 and S2 no gallops no murmurs Abdomen is soft nontender no organomegaly with normal bowel sounds Extremity exam reveals no edema no cyanosis or clubbing Neurological examination reveals no gross focal deficits - Labs CBC & Chem 7: 05/28/22 03:47 05/28/22 03:47 Labs: Abnormal Lab Results - Last 24 Hours (Table) 05/27/22 05/27/22 05/27/22 Range/Units 05:03 05:03 12:23 Hgb 7.3 L (12.0-15.0) g/dL Hct 28.7 L (37.2-46.3) % MCV 65.4 L (80.0-97.0) fL MCH 16.6 L (27.0-32.0) pg MCHC 25.4 L (32.0-37.0) g/dL RDW 21.1 H (11.5-14.5) % Eosinophils # 0.49 H (0.04-0.35) X 10*3/uL POC Glucose (mg/dL) 356 H (70-110) mg/dL Hemoglobin A1c 13.0 H (0.0-6.0) % 05/27/22 05/27/22 05/28/22 Range/Units 17:17 20:32 03:47 Hgb 7.3 L (12.0-15.0) g/dL Hct 28.5 L (37.2-46.3) % MCV 65.8 L (80.0-97.0) fL MCH 16.9 L (27.0-32.0) pg MCHC 25.6 L (32.0-37.0) g/dL RDW 21.1 H (11.5-14.5) % Eosinophils # 0.59 H (0.04-0.35) X 10*3/uL POC Glucose (mg/dL) 289 H 324 H (70-110) mg/dL Hemoglobin A1c (0.0-6.0) % 05/28/22 Range/Units 07:43 Hgb (12.0-15.0) g/dL Hct (37.2-46.3) % MCV (80.0-97.0) fL MCH (27.0-32.0) pg MCHC (32.0-37.0) g/dL RDW (11.5-14.5) % Eosinophils # (0.04-0.35) X 10*3/uL POC Glucose (mg/dL) 309 H (70-110) mg/dL Hemoglobin A1c (0.0-6.0) % Assessment and Plan Plan: Severe shortness of breath, multifactorial Elevated d-dimer and will check CT angiogram of the chest to rule out pulmonary embolism Anemia, hemoglobin down to 6.6 on presentation, patient will receive 1 unit of red blood cells, consultation for gastroenterology initiated for GI workup Underlying history of coronary artery disease, with history of recent coronary artery bypass graft surgery Underlying history of obstructive sleep apnea Underlying history of hypertension Underlying history of hyperlipidemia Underlying history of bld-repgngc-pdsdenxec diabetes mellitus At this time patient is admitted to telemetry floor She will receive 1 unit of red blood cell transfusion CT angiogram of the chest ordered to rule out pulmonary embolism Cardiology consultation and GI consultation initiated For DVT prophylaxis SCD stockings Will follow closely
[2022-05-28 17:11] LABS: % Iron Saturation 14.68 (12.00-45.00)
[2022-05-28 17:16] LABS: Glucose,Whole Blood 325 mg/dL (70-110)
[2022-05-28 20:37] LABS: Glucose,Whole Blood 413 mg/dL (70-110)
[2022-05-28] MEDS: ATORVASTATIN 40 MG TAB PO SCH (20:43)
[2022-05-28] MEDS: PRAMIPEXOLE 1 MG TAB PO SCH (20:43)
[2022-05-29 06:49] LABS: Anisocytosis Slight; Basophils # (A) 0.1 k/uL (0-0.2); Basophils % (A) 1 %; Eosinophils # (A) 0.3 k/uL (0-0.7); Eosinophils % (A) 5 %; HCT 29.7 % (34.0-46.0); Hypochromasia Marked; Lymphocytes # (A) 1.8 k/uL (1.0-4.8); Lymphocytes % (A) 30 %; MCH 18.2 pg (25.0-35.0); MCHC 26.9 g/dL (31.0-37.0); MCV 67.8 fL (80.0-100.0); Mean Platelet Volume 9.1; Microcytosis Marked; Monocytes # (A) 0.3 k/uL (0-1.0); Monocytes % (A) 5 %; Neutrophils # (A) 3.4 k/uL (1.3-7.7); Neutrophils % (A) 56 %; Platelet Count 424 k/uL (150-450); Poikilocytosis Moderate; RBC 4.38 m/uL (3.80-5.40); WBC 6.1 k/uL (3.8-10.6)
[2022-05-29 07:37] LABS: Glucose,Whole Blood 317 mg/dL (70-110)
[2022-05-29] MEDS: INSULIN ASPART (NovoLOG) 100 UNIT/ML VIAL SQ SCH ×4 (08:32→21:19)
[2022-05-29] MEDS: traMADol 50 MG TAB PO SCH ×2 (08:33→21:13)
[2022-05-29] MEDS: glipiZIDE 5 MG TAB PO SCH ×2 (08:34→16:50)
[2022-05-29] MEDS: LOSARTAN 25 MG TAB PO SCH (08:34)
[2022-05-29] MEDS: PANTOPRAZOLE 40 MG TABLET PO SCH (08:34)
[2022-05-29] MEDS: DOCUSATE 100 MG CAP PO SCH ×2 (08:34→21:13)
[2022-05-29] MEDS: FUROSEMIDE 40 MG TAB PO SCH ×2 (08:35→16:48)
[2022-05-29] MEDS: LINAGLIPTIN 5 MG TABLET PO SCH (08:35)
[2022-05-29] MEDS: METOPROLOL TARTRATE 50 MG TAB PO SCH ×2 (08:35→21:13)
[2022-05-29] MEDS: DILTIAZEM CD 120 MG CAP.ER.24H PO SCH (08:35)
[2022-05-29] MEDS: BACLOFEN 10 MG TAB PO SCH ×3 (08:35→21:19)
[2022-05-29] MEDS: SPIRONOLACTONE 25 MG TAB PO SCH (08:35)
[2022-05-29] MEDS ORDERED: PEG 3350 (420 GM/BTL) + LYTES 4,000 ML BOTTLE PO ONE (10:18)
--- NOTE | 2022-05-29 10:21 | P.PN ---
Subjective Progress Note Date: 05/29/22 Principal diagnosis: Anemia Patient doing well today. Denies abdominal pain. Hemoglobin 8.0. No rectal bleeding. Objective - Vital Signs Vital signs: Vital Signs Temp 98.1 F 05/29/22 05:00 Pulse 89 05/29/22 05:00 Resp 16 05/29/22 05:00 BP 116/72 05/29/22 05:00 Pulse Ox 97 05/29/22 05:00 FiO2 Intake & Output 05/28/22 05/29/22 05/29/22 18:59 06:59 18:59 Intake Total 240 Output Total 300 Balance -300 240 Weight 91.1 kg Intake: Oral 240 Output: Urine 300 Other: Voiding Method Toilet Toilet Bedside Commode Bedside Commode - Exam Abdomen: Soft, nontender, nondistended - Labs CBC & Chem 7: 05/29/22 06:25 05/28/22 03:47 Labs: Abnormal Lab Results - Last 24 Hours (Table) 05/27/22 05/28/22 05/28/22 Range/Units 05:03 12:01 12:08 Hgb (11.4-16.0) gm/dL Hct (34.0-46.0) % MCV (80.0-100.0) fL MCH (25.0-35.0) pg MCHC (31.0-37.0) g/dL RDW (11.5-15.5) % POC Glucose (mg/dL) 465 H 418 H (70-110) mg/dL TIBC 483 H (228-460) ug/dL 05/28/22 05/28/22 05/29/22 Range/Units 17:15 20:36 06:25 Hgb 8.0 L (11.4-16.0) gm/dL Hct 29.7 L (34.0-46.0) % MCV 67.8 L (80.0-100.0) fL MCH 18.2 L (25.0-35.0) pg MCHC 26.9 L (31.0-37.0) g/dL RDW 20.0 H (11.5-15.5) % POC Glucose (mg/dL) 325 H 413 H (70-110) mg/dL TIBC (228-460) ug/dL 08/07/22 Range/Units 07:36 Hgb (11.4-16.0) gm/dL Hct (34.0-46.0) % MCV (80.0-100.0) fL MCH (25.0-35.0) pg MCHC (31.0-37.0) g/dL RDW (11.5-15.5) % POC Glucose (mg/dL) 317 H (70-110) mg/dL TIBC (228-460) ug/dL Assessment and Plan (1) Symptomatic anemia Narrative/Plan: Patient doing well at this time. Continue with plans for upper and lower endoscopy tomorrow. Current Visit: Yes Status: Acute Code(s): D64.9 - ANEMIA, UNSPECIFIED SNOMED Code(s): 621112470
[2022-05-29 11:49] LABS: Glucose,Whole Blood 393 mg/dL (70-110)
--- NOTE | 2022-05-29 13:34 | P.PN ---
Subjective Progress Note Date: 05/29/22 Mark Moore, is a 71-year-old female who presented to [facility] emergency room with a chief complaint of worsening shortness of breath She was evaluated in the emergency room vital examination on presentation revealed a temperature of 98.7 pulse 120 respiration 20 blood pressure 109/68 pulse ox 98% on room air Laboratory data revealed a white blood count of 6.1 hemoglobin 6.8 platelet count 388 sodium 126 potassium 4.2 chloride 95 CO2 24 BUN 7 creatinine 0.54 lactic acid 3.3 d-dimer 0.68 Testing in the emergency room revealed EKG revealed sinus tachycardia with left ventricular hypertrophy, chest x-ray revealed bibasilar atelectasis Patient was admitted to medical floor for further evaluation and treatment Past medical history is significant for history of hypertension, history of hyperlipidemia, history of [id number]-parcmnvag diabetes mellitus, history of coronary artery disease with coronary artery bypass graft surgery in September 2021 history of osteoarthritis and history of degenerative disc disease. On review of systems patient is alert and oriented 3 in no apparent distress she is complaining of shortness of breath especially with any activity otherwise she denies any complaints there is no fever or chills no headache or dizziness no chest pain no cough no nausea or vomiting no abdominal pain no diarrhea no blood in the stools no burning with urination no frequency or urgency and dysuria. On 05/28/2022 patient was seen and examined on the medical floor she is alert and oriented 3 in no apparent distress there is no fever or chills no headache or dizziness no chest pain no shortness of breath no cough no nausea or vomiting no abdominal pain no diarrhea no blood in the stools no burning with urination no frequency or urgency and no hematuria. So far this admission patient has received 1 unit of red blood cells, hemoglobin today 7.3, will continue to monitor she was seen by general surgery and plan is for EGD and colonoscopy on Monday On 05/29/2022 patient was seen and examined on the medical floor she is alert and oriented 3 in no apparent distress there is no fever or chills no headache or dizziness no chest pain no shortness of breath no cough no nausea or vomiting no abdominal pain no diarrhea no blood in the stools no burning with urination no frequency or urgency and no hematuriaDelma for EGD and colonoscopy in a.m. tomorrow, glucose level elevated, will continue coverage was a sliding scale, tomorrow after procedure we can add long-acting insulin. Objective - Vital Signs Vital signs: Vital Signs Temp 98.2 F 05/29/22 11:50 Pulse 81 05/29/22 11:50 Resp 16 05/29/22 11:50 BP 97/63 05/29/22 11:50 Pulse Ox 98 05/29/22 11:50 FiO2 Intake & Output 05/28/22 05/29/22 05/29/22 18:59 06:59 18:59 Intake Total 240 Output Total 300 Balance -300 240 Weight 91.1 kg Intake: Oral 240 Output: Urine 300 Other: Voiding Method Toilet Toilet Bedside Commode Bedside Commode - Exam In general patient is alert and oriented x 3 in no distress HEENT head normocephalic and atraumatic Neck is supple no JVD no goiter no lymphadenopathy no carotid bruit Chest examination is clear to auscultation no crackles no wheezing Cardiac exam reveals regular heart sounds S1 and S2 no gallops no murmurs Abdomen is soft nontender no organomegaly with normal bowel sounds Extremity exam reveals no edema no cyanosis or clubbing Neurological examination reveals no gross focal deficits - Labs CBC & Chem 7: 05/29/22 06:25 05/28/22 03:47 Labs: Abnormal Lab Results - Last 24 Hours (Table) 05/27/22 05/28/22 05/28/22 Range/Units 05:03 17:15 20:36 Hgb (11.4-16.0) gm/dL Hct (34.0-46.0) % MCV (80.0-100.0) fL MCH (25.0-35.0) pg MCHC (31.0-37.0) g/dL RDW (11.5-15.5) % POC Glucose (mg/dL) 325 H 413 H (70-110) mg/dL TIBC 483 H (228-460) ug/dL 05/29/22 05/29/22 05/29/22 Range/Units 06:25 07:36 11:48 Hgb 8.0 L (11.4-16.0) gm/dL Hct 29.7 L (34.0-46.0) % MCV 67.8 L (80.0-100.0) fL MCH 18.2 L (25.0-35.0) pg MCHC 26.9 L (31.0-37.0) g/dL RDW 20.0 H (11.5-15.5) % POC Glucose (mg/dL) 317 H 393 H (70-110) mg/dL TIBC (228-460) ug/dL Assessment and Plan Plan: Severe shortness of breath, multifactorial Elevated d-dimer and will check CT angiogram of the chest to rule out pulmonary embolism Anemia, hemoglobin down to 6.6 on presentation, patient will receive 1 unit of red blood cells, consultation for gastroenterology initiated for GI workup Underlying history of coronary artery disease, with history of recent coronary artery bypass graft surgery Underlying history of obstructive sleep apnea Underlying history of hypertension Underlying history of hyperlipidemia Underlying history of azk-osumwrm-osxjuyqtm diabetes mellitus At this time patient is admitted to telemetry floor She will receive 1 unit of red blood cell transfusion CT angiogram of the chest ordered to rule out pulmonary embolism Cardiology consultation and GI consultation initiated For DVT prophylaxis SCD stockings Will follow closely
[2022-05-29 17:22] LABS: Glucose,Whole Blood 316 mg/dL (70-110)
[2022-05-29 20:41] LABS: Glucose,Whole Blood 394 mg/dL (70-110)
[2022-05-29] MEDS: ATORVASTATIN 40 MG TAB PO SCH (21:12)
[2022-05-29] MEDS: PRAMIPEXOLE 1 MG TAB PO SCH (21:13)
[2022-05-30 07:09] LABS: Glucose,Whole Blood 251 mg/dL (70-110)
[2022-05-30] MEDS: DOCUSATE 100 MG CAP PO SCH ×2 (07:33→20:34)
[2022-05-30] MEDS: BACLOFEN 10 MG TAB PO SCH ×3 (07:33→22:32)
[2022-05-30] MEDS: INSULIN ASPART (NovoLOG) 100 UNIT/ML VIAL SQ SCH ×4 (07:43→20:34)
[2022-05-30] MEDS: METOPROLOL TARTRATE 50 MG TAB PO SCH ×2 (07:44→20:35)
[2022-05-30] MEDS: DILTIAZEM CD 120 MG CAP.ER.24H PO SCH (07:44)
[2022-05-30] MEDS: traMADol 50 MG TAB PO SCH ×2 (07:44→20:34)
[2022-05-30 09:03] LABS: Basophils # (A) 0.04 X 10*3/uL (0.00-0.10); Basophils % (A) 0.4 %; Eosinophils # (A) 0.28 X 10*3/uL (0.04-0.35); HCT 29.6 % (37.2-46.3); HGB 7.5 g/dL (12.0-15.0); Immature Grans, Automated 0.3 %; Lymphocytes # (A) 1.17 X 10*3/uL (0.90-5.00); Lymphocytes % (A) 12.6 %; MCH 16.9 pg (27.0-32.0); MCHC 25.3 g/dL (32.0-37.0); MCV 66.7 fL (80.0-97.0); Mean Platelet Volume 10.6 fL (9.5-12.2); Monocytes # (A) 0.73 X 10*3/uL (0.20-1.00); Monocytes % (A) 7.9 %; NRBC Per 100 WBC 0.2 /100 WBCS (0.0-0.0); Neutrophils % (A) 75.8 %; Platelet Count 383 X 10*3/uL (140-440); RBC 4.44 X 10*6/uL (4.10-5.20); RDW 21.9 % (11.5-14.5); WBC 9.25 X 10*3/uL (4.50-10.00)
[2022-05-30 09:04] LABS: African American GFR (CKD) 107.8 (60.0-200.0); Albumin 3.6 g/dL (3.8-4.9); Albumin/Globulin Ratio 1.44 (1.60-3.17); Anion Gap 8.9 mmol/L (10.00-18.00); BUN/Creat Ratio 8.61 Ratio (12.00-20.00); Calcium 8.7 mg/dL (8.7-10.3); Carbon Dioxide 27.8 mmol/L (20.0-27.5); Globulin 2.5 g/dL (1.6-3.3); Total Bilirubin 0.5 mg/dL (0.30-1.20); Total Protein 6.1 g/dL (6.2-8.2)
[2022-05-30] MEDS: PANTOPRAZOLE 40 MG TABLET PO SCH (09:39)
[2022-05-30] MEDS: glipiZIDE 5 MG TAB PO SCH ×2 (09:39→17:45)
[2022-05-30 11:52] LABS: Glucose,Whole Blood 242 mg/dL (70-110)
[2022-05-30] MEDS: FUROSEMIDE 40 MG TAB PO SCH ×2 (12:04→14:25)
[2022-05-30] MEDS ORDERED: PHENYLEPHRINE-0.9% NACL SYG 1,000 MCG/10 ML SYRINGE ONE (12:36)
[2022-05-30] MEDS ORDERED: LIDOCAINE 2% INJ 20 MG/ML (2 ML VIAL) ONE (12:36)
[2022-05-30] MEDS ORDERED: PROPOFOL 10 MG/ML 20 ML VIAL IV ONE (12:36)
[2022-05-30] MEDS ORDERED: LACTATED RINGERS 1,000 ML IV ONE (12:37)
--- NOTE | 2022-05-30 13:10 | P.PCN ---
Date of Procedure: 05/30/22 Procedure(s) Performed: PREOPERATIVE DIAGNOSIS: Anemia POSTOPERATIVE DIAGNOSIS: Mild gastritis, small hiatal hernia, mild distal esophagitis, mild diverticulosis, sigmoid colon polyp, poor prep PROCEDURE: 1. EGD with biopsy 2. Colonoscopy with snare polypectomy ANESTHESIA: [facility] SURGEON: Timothy Telles M.D. SPECIMENS: Antrum ENDOSCOPIC PROCEDURE: The patient was on the endoscopy table in the left decubitus position. The Olympus gastroscope was inserted into the oropharynx and passed under direct visualization to the region of the third portion of the duodenum. From that point the scope was slowly withdrawn inspecting all surfaces carefully. There were no neoplastic inflammatory or polypoid lesions throughout the duodenum. The pylorus was widely patent. The stomach was carefully inspected. There was mild gastritis present. A biopsy of the antrum took place to rule out H. pylori. Retroflexion revealed a small sliding hiatal hernia. The patient's esophagus had mild inflammatory changes at the GE junction consistent with mild reflux esophagitis. The remainder the esophagus appeared normal. The patient was kept on the endoscopy table in the left decubitus position. The Olympus colonoscope was inserted into the anus and passed under direct visualization to the base of the cecum. The appendiceal orifice was visualized. From that point the scope was slowly withdrawn inspecting all surfaces carefully. There were no neoplastic inflammatory or polypoid lesions throughout the cecum, ascending, transverse, and descending colon. In the sigmoid a small polyp was seen and removed as a snare with cautery technique. The remainder of the sigmoid and rectum appeared normal. The patient had mild left-sided diverticulosis. Overall the patient's prep was somewhat poor with some solid and liquid stool seen throughout. We were unable to evaluate the patient's cecum fully because of some retained stool there. No frankly neoplastic abnormalities were seen however. Digital rectal examination was normal. The patient was taken to the recovery room in stable condition per anesthesia guidelines. RECOMMENDATIONS: Resume diet. Continue anemia workup.
[2022-05-30] MEDS: LINAGLIPTIN 5 MG TABLET PO SCH (14:23)
[2022-05-30] MEDS: LOSARTAN 25 MG TAB PO SCH (14:24)
[2022-05-30] MEDS: SPIRONOLACTONE 25 MG TAB PO SCH (14:24)
[2022-05-30 17:27] LABS: Glucose,Whole Blood 223 mg/dL (70-110)
--- NOTE | 2022-05-30 19:42 | P.PN ---
Subjective Progress Note Date: 05/30/22 Mark Moore, is a 71-year-old female who presented to [facility] emergency room with a chief complaint of worsening shortness of breath She was evaluated in the emergency room vital examination on presentation revealed a temperature of 98.7 pulse 120 respiration 20 blood pressure 109/68 pulse ox 98% on room air Laboratory data revealed a white blood count of 6.1 hemoglobin 6.8 platelet count 388 sodium 126 potassium 4.2 chloride 95 CO2 24 BUN 7 creatinine 0.54 lactic acid 3.3 d-dimer 0.68 Testing in the emergency room revealed EKG revealed sinus tachycardia with left ventricular hypertrophy, chest x-ray revealed bibasilar atelectasis Patient was admitted to medical floor for further evaluation and treatment Past medical history is significant for history of hypertension, history of hyperlipidemia, history of wpo-uipaauq-cwupwieja diabetes mellitus, history of coronary artery disease with coronary artery bypass graft surgery in September 2021 history of osteoarthritis and history of degenerative disc disease. On review of systems patient is alert and oriented 3 in no apparent distress she is complaining of shortness of breath especially with any activity otherwise she denies any complaints there is no fever or chills no headache or dizziness no chest pain no cough no nausea or vomiting no abdominal pain no diarrhea no blood in the stools no burning with urination no frequency or urgency and dysuria. On 05/28/2022 patient was seen and examined on the medical floor she is alert and oriented 3 in no apparent distress there is no fever or chills no headache or dizziness no chest pain no shortness of breath no cough no nausea or vomiting no abdominal pain no diarrhea no blood in the stools no burning with urination no frequency or urgency and no hematuria. So far this admission patient has received 1 unit of red blood cells, hemoglobin today 7.3, will continue to monitor she was seen by general surgery and plan is for EGD and colonoscopy on Monday On 05/29/2022 patient was seen and examined on the medical floor she is alert and oriented 3 in no apparent distress there is no fever or chills no headache or dizziness no chest pain no shortness of breath no cough no nausea or vomiting no abdominal pain no diarrhea no blood in the stools no burning with urination no frequency or urgency and no hematuria, she is scheduled for EGD and colonoscopy in a.m. tomorrow, glucose level elevated, will continue coverage was a sliding scale, tomorrow after procedure we can add long-acting insulin. On 05/30/2022 patient was seen and examined on the medical floor she is alert and oriented 3 in no apparent distress there is no fever or chills no headache or dizziness no chest pain no shortness of breath no cough no nausea or vomiting no abdominal pain no diarrhea no blood in the stools no burning with urination no frequency or urgency and no hematuria, patient had an EGD and colonoscopy today results reviewed with patient, at this time will continue with current management will add Lantus 10 units at bedtime, give 1 dose of IV Venofer, if stable possible discharge to home tomorrow Objective - Vital Signs Vital signs: Vital Signs Temp 98.2 F 05/30/22 13:24 Pulse 90 05/30/22 14:30 Resp 18 05/30/22 14:30 BP 113/67 05/30/22 14:30 Pulse Ox 97 05/30/22 14:30 FiO2 Intake & Output 05/30/22 05/30/22 05/31/22 06:59 18:59 06:59 Intake Total 600 Balance 600 Weight 91.9 kg Intake: IV 600 Other: Voiding Method Toilet Bedside Commode # Bowel Movements 3 - Exam In general patient is alert and oriented x 3 in no distress HEENT head normocephalic and atraumatic Neck is supple no JVD no goiter no lymphadenopathy no carotid bruit Chest examination is clear to auscultation no crackles no wheezing Cardiac exam reveals regular heart sounds S1 and S2 no gallops no murmurs Abdomen is soft nontender no organomegaly with normal bowel sounds Extremity exam reveals no edema no cyanosis or clubbing Neurological examination reveals no gross focal deficits - Labs CBC & Chem 7: 05/30/22 05:17 05/30/22 05:17 Labs: Abnormal Lab Results - Last 24 Hours (Table) 05/29/22 05/30/22 05/30/22 Range/Units 20:38 05:17 05:17 Hgb 7.5 L (12.0-15.0) g/dL Hct 29.6 L (37.2-46.3) % MCV 66.7 L (80.0-97.0) fL MCH 16.9 L (27.0-32.0) pg MCHC 25.3 L (32.0-37.0) g/dL RDW 21.9 H (11.5-14.5) % Absolute Nucleated RBC 0.02 H (0.00-0.00) X 10*3/uL NRBC/100 WBC Diff 0.2 H (0.0-0.0) /100 WBCS Sodium 131 L (135-145) mmol/L Chloride 95 L (96-109) mmol/L Carbon Dioxide 27.8 H (20.0-27.5) mmol/L Anion Gap 8.90 L (10.00-18.00) mmol/L BUN 5.0 L (9.0-27.0) mg/dL BUN/Creatinine Ratio 8.61 L (12.00-20.00) Ratio Glucose 224 H (70-110) mg/dL POC Glucose (mg/dL) 394 H (70-110) mg/dL Total Protein 6.1 L (6.2-8.2) g/dL Albumin 3.6 L (3.8-4.9) g/dL Albumin/Globulin Ratio 1.44 L (1.60-3.17) g/dL 05/30/22 05/30/22 05/30/22 Range/Units 07:08 11:51 17:26 Hgb (12.0-15.0) g/dL Hct (37.2-46.3) % MCV (80.0-97.0) fL MCH (27.0-32.0) pg MCHC (32.0-37.0) g/dL RDW (11.5-14.5) % Absolute Nucleated RBC (0.00-0.00) X 10*3/uL NRBC/100 WBC Diff (0.0-0.0) /100 WBCS Sodium (135-145) mmol/L Chloride (96-109) mmol/L Carbon Dioxide (20.0-27.5) mmol/L Anion Gap (10.00-18.00) mmol/L BUN (9.0-27.0) mg/dL BUN/Creatinine Ratio (12.00-20.00) Ratio Glucose (70-110) mg/dL POC Glucose (mg/dL) 251 H 242 H 223 H (70-110) mg/dL Total Protein (6.2-8.2) g/dL Albumin (3.8-4.9) g/dL Albumin/Globulin Ratio (1.60-3.17) g/dL Assessment and Plan Plan: Severe shortness of breath, multifactorial Elevated d-dimer and will check CT angiogram of the chest to rule out pulmonary embolism Anemia, hemoglobin down to 6.6 on presentation, patient will receive 1 unit of red blood cells, consultation for gastroenterology initiated for GI workup Underlying history of coronary artery disease, with history of recent coronary artery bypass graft surgery Underlying history of obstructive sleep apnea Underlying history of hypertension Underlying history of hyperlipidemia Underlying history of jje-nlzwekv-iacdezmvb diabetes mellitus At this time patient is admitted to telemetry floor She will receive 1 unit of red blood cell transfusion CT angiogram of the chest ordered to rule out pulmonary embolism Cardiology consultation and GI consultation initiated For DVT prophylaxis SCD stockings Will follow closely
[2022-05-30] MEDS ORDERED: SODIUM FERRIC GLUCONAT-SUCROSE 125 MG in SODIUM CHLORIDE 0.9% 100 ML IVPB ONE (20:00)
[2022-05-30 20:16] LABS: Glucose,Whole Blood 315 mg/dL (70-110)
[2022-05-30] MEDS: ATORVASTATIN 40 MG TAB PO SCH (20:34)
[2022-05-30] MEDS: INSULIN DETEMIR (LEVEMIR) 100 UNIT/ML SYR SQ SCH (20:34)
[2022-05-30] MEDS: PRAMIPEXOLE 1 MG TAB PO SCH (20:36)
[2022-05-31 07:29] LABS: Glucose,Whole Blood 252 mg/dL (70-110)
[2022-05-31] MEDS: glipiZIDE 5 MG TAB PO SCH ×2 (08:12→17:01)
[2022-05-31] MEDS: LINAGLIPTIN 5 MG TABLET PO SCH (08:13)
[2022-05-31] MEDS: DILTIAZEM CD 120 MG CAP.ER.24H PO SCH (08:13)
[2022-05-31] MEDS: traMADol 50 MG TAB PO SCH ×2 (08:14→20:42)
[2022-05-31] MEDS: DOCUSATE 100 MG CAP PO SCH ×2 (08:14→20:42)
[2022-05-31] MEDS: INSULIN ASPART (NovoLOG) 100 UNIT/ML VIAL SQ SCH ×4 (08:14→20:42)
[2022-05-31] MEDS: SPIRONOLACTONE 25 MG TAB PO SCH (08:15)
[2022-05-31] MEDS: METOPROLOL TARTRATE 50 MG TAB PO SCH ×2 (08:15→20:42)
[2022-05-31] MEDS: PANTOPRAZOLE 40 MG TABLET PO SCH (08:15)
[2022-05-31] MEDS: BACLOFEN 10 MG TAB PO SCH ×3 (08:15→22:11)
[2022-05-31] MEDS: LOSARTAN 25 MG TAB PO SCH (08:15)
[2022-05-31] MEDS: FUROSEMIDE 40 MG TAB PO SCH ×2 (08:15→17:02)
[2022-05-31 10:54] LABS: African American GFR (CKD) 106.3 (60.0-200.0); Albumin 3.2 g/dL (3.8-4.9); Albumin/Globulin Ratio 1.33 (1.60-3.17); Anion Gap 10.1 mmol/L (10.00-18.00); BUN/Creat Ratio 12.33 Ratio (12.00-20.00); Blood Urea Nitrogen 7.4 mg/dL (9.0-27.0); Calcium 8.6 mg/dL (8.7-10.3); Carbon Dioxide 25.9 mmol/L (20.0-27.5); Globulin 2.4 g/dL (1.6-3.3); Non-African American GFR(CKD) 91.7 (60.0-200.0); Potassium 3.9 mmol/L (3.5-5.5); Total Bilirubin 0.2 mg/dL (0.30-1.20); Total Protein 5.6 g/dL (6.2-8.2)
[2022-05-31 11:29] LABS: HCT 28.1 % (37.2-46.3); HGB 7.2 g/dL (12.0-15.0); MCH 17.1 pg (27.0-32.0); MCHC 25.6 g/dL (32.0-37.0); MCV 66.9 fL (80.0-97.0); Mean Platelet Volume 10.9 fL (9.5-12.2); NRBC Per 100 WBC 0 /100 WBCS (0.0-0.0); Platelet Count 364 X 10*3/uL (140-440); RDW 22.5 % (11.5-14.5); WBC 6.39 X 10*3/uL (4.50-10.00)
[2022-05-31 11:30] LABS: Glucose,Whole Blood 283 mg/dL (70-110)
[2022-05-31 11:51] LABS: Basophils # (A) 0.06 X 10*3/uL (0.00-0.10); Basophils % (A) 0.9 %; Eosinophils % (A) 4.7 %; Immature Grans, Automated 0.3 %; Lymphocytes # (A) 1.47 X 10*3/uL (0.90-5.00); Monocytes # (A) 0.63 X 10*3/uL (0.20-1.00); Monocytes % (A) 9.9 %; Neutrophils # (A) 3.91 X 10*3/uL (1.80-7.70); Neutrophils % (A) 61.2 %; Rouleaux PRESENT
--- NOTE | 2022-05-31 14:27 | P.PN ---
Subjective Progress Note Date: 05/31/22 CHIEF COMPLAINT: Anemia HISTORY OF PRESENT ILLNESS: Patient is status post EGD and colonoscopy which demonstrated Mild gastritis, small hiatal hernia, mild distal esophagitis, mild diverticulosis, sigmoid colon polyp, poor prep. Patient lying in bed comfortably. She is tolerating diet. Denies any abdominal pain. Denies any nausea or vomiting. No evidence of bleeding. Hemoglobin is down from 7.5 to 7.2 . Patient is currently receiving IV iron. Total iron 71. PHYSICAL EXAM: VITAL SIGNS: Reviewed. GENERAL: Well-developed in no acute distress. ABDOMEN: Soft. Nondistended. Nontender. ASSESSMENT: 1. Symptomatic anemia status post EGD and colonoscopy PLAN: -Continue anemia workup -Continue to monitor hemoglobin -Continue PPI Physician [employer] note has been reviewed by physician. Signing provider agrees with the documented findings, assessment, and plan of care. I have personally seen and examined the patient, reviewed the WAITSTAFF /PAs history, exam and MDM and agree with the assessment and plan as written. Based on total visit time, I have performed more than 50% of the visit. As above: Patient doing well today. Hemoglobin noted. No GI bleed seen on recent endoscopy. We'll sign off. Please call if needed. Objective - Vital Signs Vital signs: Vital Signs Temp 98.2 F 05/31/22 12:16 Pulse 78 05/31/22 12:16 Resp 18 05/31/22 12:16 BP 104/68 05/31/22 12:16 Pulse Ox 95 05/31/22 12:16 FiO2 Intake & Output 05/30/22 05/31/22 05/31/22 18:59 06:59 18:59 Intake Total 600 Balance 600 Weight 91 kg Intake: IV 600 Other: Voiding Method Toilet Toilet Bedside Commode Bedside Commode - Labs CBC & Chem 7: 05/31/22 06:51 05/31/22 06:51 Labs: Abnormal Lab Results - Last 24 Hours (Table) 05/30/22 05/30/22 05/31/22 Range/Units 17:26 20:15 06:51 Hgb 7.2 L (12.0-15.0) g/dL Hct 28.1 L (37.2-46.3) % MCV 66.9 L (80.0-97.0) fL MCH 17.1 L (27.0-32.0) pg MCHC 25.6 L (32.0-37.0) g/dL RDW 22.5 H (11.5-14.5) % Sodium (135-145) mmol/L BUN (9.0-27.0) mg/dL Glucose (70-110) mg/dL POC Glucose (mg/dL) 223 H 315 H (70-110) mg/dL Calcium (8.7-10.3) mg/dL Total Bilirubin (0.30-1.20) mg/dL Total Protein (6.2-8.2) g/dL Albumin (3.8-4.9) g/dL Albumin/Globulin Ratio (1.60-3.17) g/dL 05/31/22 05/31/22 05/31/22 Range/Units 06:51 07:26 11:27 Hgb (12.0-15.0) g/dL Hct (37.2-46.3) % MCV (80.0-97.0) fL MCH (27.0-32.0) pg MCHC (32.0-37.0) g/dL RDW (11.5-14.5) % Sodium 133 L (135-145) mmol/L BUN 7.4 L (9.0-27.0) mg/dL Glucose 246 H (70-110) mg/dL POC Glucose (mg/dL) 252 H 283 H (70-110) mg/dL Calcium 8.6 L (8.7-10.3) mg/dL Total Bilirubin 0.20 L (0.30-1.20) mg/dL Total Protein 5.6 L (6.2-8.2) g/dL Albumin 3.2 L (3.8-4.9) g/dL Albumin/Globulin Ratio 1.33 L (1.60-3.17) g/dL
[2022-05-31] MEDS ORDERED: SODIUM FERRIC GLUCONAT-SUCROSE 125 MG in SODIUM CHLORIDE 0.9% 100 ML IVPB ONE (15:00)
[2022-05-31 17:06] LABS: Glucose,Whole Blood 353 mg/dL (70-110)
[2022-05-31 17:14] VITALS: BMI 36.6
[2022-05-31 20:16] LABS: Glucose,Whole Blood 404 mg/dL (70-110)
[2022-05-31] MEDS: ATORVASTATIN 40 MG TAB PO SCH (20:42)
[2022-05-31] MEDS: INSULIN DETEMIR (LEVEMIR) 100 UNIT/ML SYR SQ SCH (20:42)
[2022-05-31] MEDS: PRAMIPEXOLE 1 MG TAB PO SCH (20:44)
[2022-06-01 07:08] LABS: Glucose,Whole Blood 239 mg/dL (70-110)
--- NOTE | 2022-06-01 09:08 | P.PN ---
Subjective Progress Note Date: 05/31/22 Mark Moore, is a 71-year-old female who presented to [facility] emergency room with a chief complaint of worsening shortness of breath She was evaluated in the emergency room vital examination on presentation revealed a temperature of 98.7 pulse 120 respiration 20 blood pressure 109/68 pulse ox 98% on room air Laboratory data revealed a white blood count of 6.1 hemoglobin 6.8 platelet count 388 sodium 126 potassium 4.2 chloride 95 CO2 24 BUN 7 creatinine 0.54 lactic acid 3.3 d-dimer 0.68 Testing in the emergency room revealed EKG revealed sinus tachycardia with left ventricular hypertrophy, chest x-ray revealed bibasilar atelectasis Patient was admitted to medical floor for further evaluation and treatment Past medical history is significant for history of hypertension, history of hyperlipidemia, history of vua-vswxpjk-uordjzrjn diabetes mellitus, history of coronary artery disease with coronary artery bypass graft surgery in September 2021 history of osteoarthritis and history of degenerative disc disease. On review of systems patient is alert and oriented 3 in no apparent distress she is complaining of shortness of breath especially with any activity otherwise she denies any complaints there is no fever or chills no headache or dizziness no chest pain no cough no nausea or vomiting no abdominal pain no diarrhea no blood in the stools no burning with urination no frequency or urgency and dysuria. On 05/28/2022 patient was seen and examined on the medical floor she is alert and oriented 3 in no apparent distress there is no fever or chills no headache or dizziness no chest pain no shortness of breath no cough no nausea or vomiting no abdominal pain no diarrhea no blood in the stools no burning with urination no frequency or urgency and no hematuria. So far this admission patient has received 1 unit of red blood cells, hemoglobin today 7.3, will continue to monitor she was seen by general surgery and plan is for EGD and colonoscopy on Monday On 05/29/2022 patient was seen and examined on the medical floor she is alert and oriented 3 in no apparent distress there is no fever or chills no headache or dizziness no chest pain no shortness of breath no cough no nausea or vomiting no abdominal pain no diarrhea no blood in the stools no burning with urination no frequency or urgency and no hematuria, she is scheduled for EGD and colonoscopy in a.m. tomorrow, glucose level elevated, will continue coverage was a sliding scale, tomorrow after procedure we can add long-acting insulin. On 05/30/2022 patient was seen and examined on the medical floor she is alert and oriented 3 in no apparent distress there is no fever or chills no headache or dizziness no chest pain no shortness of breath no cough no nausea or vomiting no abdominal pain no diarrhea no blood in the stools no burning with urination no frequency or urgency and no hematuria, patient had an EGD and colonoscopy today results reviewed with patient, at this time will continue with current management will add Lantus 10 units at bedtime, give 1 dose of IV Venofer, if stable possible discharge to home tomorrow. On 05/31/2022 patient was seen and examined on the medical floor she is alert and oriented 3 in no apparent distress there is no fever or chills no headache or dizziness no chest pain no shortness of breath no cough no nausea or vomiting no abdominal pain no diarrhea and no urinary symptoms results of EGD and colonoscopy discussed was patient hemoglobin is down today to 7.2 will give 1 more dose of IV Venofer failure possible discharge to home tomorrow Objective - Vital Signs Vital signs: Vital Signs Temp 98.1 F 06/01/22 04:54 Pulse 80 06/01/22 04:54 Resp 18 06/01/22 04:54 BP 116/74 06/01/22 04:54 Pulse Ox 97 06/01/22 04:54 FiO2 Intake & Output 05/31/22 06/01/22 06/01/22 18:59 06:59 18:59 Intake Total 480 Balance 480 Weight 91 kg Intake: Oral 480 Other: Voiding Method Toilet Toilet Bedside Commode Bedside Commode - Exam In general patient is alert and oriented x 3 in no distress HEENT head normocephalic and atraumatic Neck is supple no JVD no goiter no lymphadenopathy no carotid bruit Chest examination is clear to auscultation no crackles no wheezing Cardiac exam reveals regular heart sounds S1 and S2 no gallops no murmurs Abdomen is soft nontender no organomegaly with normal bowel sounds Extremity exam reveals no edema no cyanosis or clubbing Neurological examination reveals no gross focal deficits - Labs CBC & Chem 7: 05/31/22 06:51 05/31/22 06:51 Labs: Abnormal Lab Results - Last 24 Hours (Table) 05/31/22 05/31/22 05/31/22 Range/Units 06:51 06:51 11:27 Hgb 7.2 L (12.0-15.0) g/dL Hct 28.1 L (37.2-46.3) % MCV 66.9 L (80.0-97.0) fL MCH 17.1 L (27.0-32.0) pg MCHC 25.6 L (32.0-37.0) g/dL RDW 22.5 H (11.5-14.5) % Sodium 133 L (135-145) mmol/L BUN 7.4 L (9.0-27.0) mg/dL Glucose 246 H (70-110) mg/dL POC Glucose (mg/dL) 283 H (70-110) mg/dL Calcium 8.6 L (8.7-10.3) mg/dL Total Bilirubin 0.20 L (0.30-1.20) mg/dL Total Protein 5.6 L (6.2-8.2) g/dL Albumin 3.2 L (3.8-4.9) g/dL Albumin/Globulin Ratio 1.33 L (1.60-3.17) g/dL 05/31/22 05/31/22 06/01/22 Range/Units 17:05 20:13 07:06 Hgb (12.0-15.0) g/dL Hct (37.2-46.3) % MCV (80.0-97.0) fL MCH (27.0-32.0) pg MCHC (32.0-37.0) g/dL RDW (11.5-14.5) % Sodium (135-145) mmol/L BUN (9.0-27.0) mg/dL Glucose (70-110) mg/dL POC Glucose (mg/dL) 353 H 404 H 239 H (70-110) mg/dL Calcium (8.7-10.3) mg/dL Total Bilirubin (0.30-1.20) mg/dL Total Protein (6.2-8.2) g/dL Albumin (3.8-4.9) g/dL Albumin/Globulin Ratio (1.60-3.17) g/dL Assessment and Plan Plan: Severe shortness of breath, multifactorial Elevated d-dimer and will check CT angiogram of the chest to rule out pulmonary embolism Anemia, hemoglobin down to 6.6 on presentation, patient will receive 1 unit of red blood cells, consultation for gastroenterology initiated for GI workup Underlying history of coronary artery disease, with history of recent coronary artery bypass graft surgery Underlying history of obstructive sleep apnea Underlying history of hypertension Underlying history of hyperlipidemia Underlying history of qar-kgtidlv-xlazmanji diabetes mellitus At this time patient is admitted to telemetry floor She will receive 1 unit of red blood cell transfusion CT angiogram of the chest ordered to rule out pulmonary embolism Cardiology consultation and GI consultation initiated For DVT prophylaxis SCD stockings Will follow closely
[2022-06-01] MEDS: INSULIN ASPART (NovoLOG) 100 UNIT/ML VIAL SQ SCH ×2 (09:48→13:21)
[2022-06-01] MEDS: glipiZIDE 5 MG TAB PO SCH (09:48)
[2022-06-01] MEDS: METOPROLOL TARTRATE 50 MG TAB PO SCH (09:49)
[2022-06-01] MEDS: FUROSEMIDE 40 MG TAB PO SCH (09:49)
[2022-06-01] MEDS: DILTIAZEM CD 120 MG CAP.ER.24H PO SCH (09:49)
[2022-06-01] MEDS: LOSARTAN 25 MG TAB PO SCH (09:49)
[2022-06-01] MEDS: BACLOFEN 10 MG TAB PO SCH (09:49)
[2022-06-01] MEDS: DOCUSATE 100 MG CAP PO SCH (09:49)
[2022-06-01] MEDS: LINAGLIPTIN 5 MG TABLET PO SCH (09:49)
[2022-06-01] MEDS: PANTOPRAZOLE 40 MG TABLET PO SCH (09:49)
[2022-06-01] MEDS: traMADol 50 MG TAB PO SCH (09:50)
[2022-06-01] MEDS: SPIRONOLACTONE 25 MG TAB PO SCH (09:50)
[2022-06-01] MEDS ORDERED: SODIUM FERRIC GLUCONAT-SUCROSE 125 MG in SODIUM CHLORIDE 0.9% 100 ML IVPB ONE (10:00)
[2022-06-01 11:11] LABS: Glucose,Whole Blood 340 mg/dL (70-110)
[2022-06-01 11:42] VITALS: BP 109/67; PULSE 83; RESP 15; TEMP 97.8
[2022-06-01 13:32] LABS: Anisocytosis Moderate; Basophils % (A) 1 %; Eosinophils # (A) 0.2 k/uL (0-0.7); Eosinophils % (A) 3 %; HCT 29.2 % (34.0-46.0); HGB 7.7 gm/dL (11.4-16.0); Hypochromasia Marked; Lymphocytes # (A) 1.8 k/uL (1.0-4.8); Lymphocytes % (A) 30 %; MCHC 26.3 g/dL (31.0-37.0); MCV 68.1 fL (80.0-100.0); Mean Platelet Volume 7.8; Microcytosis Marked; Monocytes # (A) 0.3 k/uL (0-1.0); Monocytes % (A) 6 %; Neutrophils # (A) 3.5 k/uL (1.3-7.7); Neutrophils % (A) 59 %; Platelet Count 364 k/uL (150-450); Poikilocytosis Slight; RBC 4.28 m/uL (3.80-5.40); RDW 21.2 % (11.5-15.5); WBC 5.9 k/uL (3.8-10.6)
--- NOTE | 2022-06-01 14:03 | P.DS ---
Providers Date of admission: 05/26/22 19:46 Expected date of discharge: 06/01/22 Attending physician: Surinder Rodríguez Primary care physician: Surinder Rodríguez [facility] Course: Diagnosis on discharge: Severe shortness of breath, multifactorial Elevated d-dimer and will check CT angiogram of the chest to rule out pulmonary embolism Anemia, hemoglobin down to 6.6 on presentation, patient will receive 1 unit of red blood cells, consultation for gastroenterology initiated for GI workup Underlying history of coronary artery disease, with history of recent coronary artery bypass graft surgery Underlying history of obstructive sleep apnea Underlying history of hypertension Underlying history of hyperlipidemia Underlying history of dak-btrgodk-yynideeok diabetes mellitus Hospital course: Mark Moore, is a 71-year-old female who presented to [facility] emergency room with a chief complaint of worsening shortness of breath She was evaluated in the emergency room vital examination on presentation revealed a temperature of 98.7 pulse 120 respiration 20 blood pressure 109/68 pulse ox 98% on room air Laboratory data revealed a white blood count of 6.1 hemoglobin 6.8 platelet count 388 sodium 126 potassium 4.2 chloride 95 CO2 24 BUN 7 creatinine 0.54 lactic acid 3.3 d-dimer 0.68 Testing in the emergency room revealed EKG revealed sinus tachycardia with left ventricular hypertrophy, chest x-ray revealed bibasilar atelectasis Patient was admitted to medical floor for further evaluation and treatment Past medical history is significant for history of hypertension, history of hyperlipidemia, history of uhk-nhaypqg-uwuuzesqp diabetes mellitus, history of coronary artery disease with coronary artery bypass graft surgery in September 2021 history of osteoarthritis and history of degenerative disc disease. On review of systems patient is alert and oriented 3 in no apparent distress she is complaining of shortness of breath especially with any activity otherwise she denies any complaints there is no fever or chills no headache or dizziness no chest pain no cough no nausea or vomiting no abdominal pain no diarrhea no blood in the stools no burning with urination no frequency or urgency and dysuria. On 05/28/2022 patient was seen and examined on the medical floor she is alert and oriented 3 in no apparent distress there is no fever or chills no headache or dizziness no chest pain no shortness of breath no cough no nausea or vomiting no abdominal pain no diarrhea no blood in the stools no burning with urination no frequency or urgency and no hematuria. So far this admission patient has received 1 unit of red blood cells, hemoglobin today 7.3, will continue to monitor she was seen by general surgery and plan is for EGD and colonoscopy on Monday On 05/29/2022 patient was seen and examined on the medical floor she is alert and oriented 3 in no apparent distress there is no fever or chills no headache or dizziness no chest pain no shortness of breath no cough no nausea or vomiting no abdominal pain no diarrhea no blood in the stools no burning with urination no frequency or urgency and no hematuria, she is scheduled for EGD and colonoscopy in a.m. tomorrow, glucose level elevated, will continue coverage was a sliding scale, tomorrow after procedure we can add long-acting insulin. On 05/30/2022 patient was seen and examined on the medical floor she is alert and oriented 3 in no apparent distress there is no fever or chills no headache or dizziness no chest pain no shortness of breath no cough no nausea or vomiting no abdominal pain no diarrhea no blood in the stools no burning with urination no frequency or urgency and no hematuria, patient had an EGD and colonoscopy today results reviewed with patient, at this time will continue with current management will add Lantus 10 units at bedtime, give 1 dose of IV Venofer, if stable possible discharge to home tomorrow. On 05/31/2022 patient was seen and examined on the medical floor she is alert and oriented 3 in no apparent distress there is no fever or chills no headache or dizziness no chest pain no shortness of breath no cough no nausea or vomiting no abdominal pain no diarrhea and no urinary symptoms results of EGD and colonoscopy discussed was patient hemoglobin is down today to 7.2 will give 1 more dose of IV Venofer failure possible discharge to home tomorrow On 06/01/2022 patient was seen and examined on the medical floor she is alert and oriented 3 in no apparent distress she is feeling better there is no fever or chills no headache or dizziness no chest pain no shortness of breath no cough no nausea or vomiting no abdominal pain no diarrhea and no urinary symptoms. HemoGlobin is stable at 7.7, patient received 1 unit of red blood cells during this admission, she also received 3 infusions of IV iron, she was given a prescription for oral iron at home will follow in the office within 1 week Patient Condition at Discharge: Stable Plan - Discharge Summary Discharge Rx Participant: Yes New Discharge Prescriptions: New Spironolactone [Aldactone] 25 mg PO DAILY tab Ferrous Sulfate [Feosol] 325 mg PO DAILY 30 Days #30 tab Docusate [Colace] 100 mg PO BID cap Insulin Glargine,Hum.rec.anlog [Lantus Solostar Pen] 10 units SQ DAILY 30 Days #2 each Continue traMADol HCl [Ultram] 100 mg PO BID Baclofen 10 mg PO TID Diltiazem Cd [Cardizem CD] 120 mg PO DAILY #30 capsule Pantoprazole [Protonix] 40 mg PO AC-BRKFST #30 tab sitaGLIPtin [Januvia] 100 mg PO DAILY Metoprolol Tartrate [Lopressor] 50 mg PO BID #60 tab Clopidogrel [Plavix] 75 mg PO DAILY #30 tab Losartan [Cozaar] 25 mg PO DAILY Furosemide [Lasix] 40 mg PO BID@0900,1600 30 Days #60 tab Aspirin EC [Ecotrin Low Dose] 81 mg PO DAILY Atorvastatin [Lipitor] 40 mg PO HS glipiZIDE [Glucotrol] 5 mg PO AC-BID 30 Days #60 tab Pramipexole [Mirapex] 1 mg PO HS Discontinued Ibuprofen [Motrin] 800 mg PO Q8H PRN PRN Reason: Pain Discharge Medication List traMADol HCl [Ultram] 100 mg PO BID 11/04/15 [History] Baclofen 10 mg PO TID 09/14/16 [History] Clopidogrel [Plavix] 75 mg PO DAILY #30 tab 10/15/21 [Rx] Diltiazem Cd [Cardizem CD] 120 mg PO DAILY #30 capsule 10/15/21 [Rx] Metoprolol Tartrate [Lopressor] 50 mg PO BID #60 tab 10/15/21 [Rx] Pantoprazole [Protonix] 40 mg PO AC-BRKFST #30 tab 10/15/21 [Rx] Losartan [Cozaar] 25 mg PO DAILY 11/26/21 [History] Furosemide [Lasix] 40 mg PO BID@0900,1600 30 Days #60 tab 12/01/21 [Rx] Aspirin EC [Ecotrin Low Dose] 81 mg PO DAILY 01/13/22 [History] Atorvastatin [Lipitor] 40 mg PO HS 01/13/22 [History] glipiZIDE [Glucotrol] 5 mg PO AC-BID 30 Days #60 tab 01/15/22 [Rx] Pramipexole [Mirapex] 1 mg PO HS 05/26/22 [History] sitaGLIPtin [Januvia] 100 mg PO DAILY 05/26/22 [History] Docusate [Colace] 100 mg PO BID cap 06/01/22 [Rx] Ferrous Sulfate [Feosol] 325 mg PO DAILY 30 Days #30 tab 06/01/22 [Rx] Insulin Glargine,Hum.rec.anlog [Lantus Solostar Pen] 10 units SQ DAILY 30 Days #2 each 06/01/22 [Rx] Spironolactone [Aldactone] 25 mg PO DAILY tab 06/01/22 [Rx] Follow up Appointment(s)/Referral(s): Surinder Rodríguez MD [Primary Care Provider] - 06/03/22 11:00 am
== END 2022-06-01 15:25 | disposition home or self-care (01) | DRG 812 ==
LOC: EC 16:35 → 5NMEDONC 19:46
PROVIDERS: ADMIT Internal Medicine; ATTEND Internal Medicine
PROC: 30233N1 Transfusion of Nonautologous Red Blood Cells into Peripheral Vein, Percutaneous Approach (ICD-10-PCS; 2022-05-26)
PROC: 0DBN8ZX Excision of Sigmoid Colon, Via Natural or Artificial Opening Endoscopic, Diagnostic (ICD-10-PCS; principal; 2022-05-30 07:50)
PROC: 0DB78ZX Excision of Stomach, Pylorus, Via Natural or Artificial Opening Endoscopic, Diagnostic (ICD-10-PCS; principal; 2022-05-30 07:50)
DX: D50.9 Iron deficiency anemia, unspecified (principal); I50.22 Chronic systolic (congestive) heart failure; J98.11 Atelectasis; I11.0 Hypertensive heart disease with heart failure; I25.10 Atherosclerotic heart disease of native coronary artery without angina pectoris; E78.5 Hyperlipidemia, unspecified; M19.90 Unspecified osteoarthritis, unspecified site; Z20.822 Contact with and (suspected) exposure to COVID-19; E11.65 Type 2 diabetes mellitus with hyperglycemia; I25.5 Ischemic cardiomyopathy; J45.909 Unspecified asthma, uncomplicated; K20.90 Esophagitis, unspecified without bleeding; K29.70 Gastritis, unspecified, without bleeding; K44.9 Diaphragmatic hernia without obstruction or gangrene; E66.9 Obesity, unspecified; K57.30 Diverticulosis of large intestine without perforation or abscess without bleeding; K63.5 Polyp of colon; K64.4 Residual hemorrhoidal skin tags; G47.33 Obstructive sleep apnea (adult) (pediatric); Z68.36 Body mass index [BMI] 36.0-36.9, adult; M79.7 Fibromyalgia; F19.11 Other psychoactive substance abuse, in remission; Z79.02 Long term (current) use of antithrombotics/antiplatelets; Z79.82 Long term (current) use of aspirin; Z79.84 Long term (current) use of oral hypoglycemic drugs; Z79.899 Other long term (current) drug therapy; Z82.49 Family history of ischemic heart disease and other diseases of the circulatory system; Z83.3 Family history of diabetes mellitus; Z95.1 Presence of aortocoronary bypass graft; Z86.61 Personal history of infections of the central nervous system; Z28.21 Immunization not carried out because of patient refusal; Z71.3 Dietary counseling and surveillance; Z88.1 Allergy status to other antibiotic agents; Z88.2 Allergy status to sulfonamides; Z87.891 Personal history of nicotine dependence
CPT/HCPCS: 36415; 43239; 45385; 71046; 71275; 80053; 81001; 82272; 83036; 83540; 83550; 83605; 83735; 83880; 84484; 85025; 85379; 85610; 85730; 86850; 86900; 86901; 86920; 87635; 88305; 93005; 93306; 96374; 99285

== ENCOUNTER 2022-09-07 15:35 | Observation (INO) | payer MEDICARE, OTHER ==
--- NOTE | 2022-09-07 17:37 | ED ---
General Adult HPI - General Chief complaint: Fall Stated complaint: Fall Time Seen by Provider: 09/07/22 16:01 Source: patient, EMS Mode of arrival: EMS Limitations: altered mental status - History of Present Illness Initial comments: This is a 72-year-old female who presents to emergency department via EMS after a reported fall. The patient is an overall poor historian and was ANO 2-3 during my evaluation. The patient stated that she did fall yesterday and complained of left-sided face pain. The patient didn't complain of any other pain at did not know who called EMS or why she was in the emergency department. EMS did report that she does live alone but her son called EMS after a reported fall yesterday. The patient herself denied any other acute pain or distress and was able to answer questions appropriately. The patient denied any other acute pain and did not have any distress to my evaluation. - Related Data Home Medications Medication Instructions Recorded Confirmed RX: traMADol HCl [Ultram] 100 mg PO BID PRN 11/04/15 09/07/22 RX: Baclofen 10 mg PO TID PRN 09/14/16 09/07/22 RX: Losartan [Cozaar] 25 mg PO DIRECTED 11/26/21 09/07/22 RX: Aspirin EC [Ecotrin Low Dose] 81 mg PO DIRECTED 01/13/22 09/07/22 RX: Atorvastatin [Lipitor] 40 mg PO DIRECTED 01/13/22 09/07/22 RX: Pramipexole [Mirapex] 1 mg PO DIRECTED 05/26/22 09/07/22 RX: sitaGLIPtin [Januvia] 100 mg PO DIRECTED 05/26/22 09/07/22 Ergocalciferol (Vitamin D2) 1,250 mcg PO Q7D 09/07/22 09/07/22 [Drisdol (50,000 Iu)] Ibuprofen [Motrin] 800 mg PO Q8H PRN 09/07/22 09/07/22 Insulin Detemir (Levemir) [Levemir] 10 unit SQ DAILY 09/07/22 09/07/22 RX: Clopidogrel [Plavix] 75 mg PO DIRECTED 09/07/22 09/07/22 RX: Diltiazem Cd [Cardizem CD] 120 mg PO DIRECTED 09/07/22 09/07/22 RX: Docusate [Colace] 100 mg PO DIRECTED 09/07/22 09/07/22 RX: Spironolactone [Aldactone] 25 mg PO DIRECTED 09/07/22 09/07/22 RX: glipiZIDE [Glucotrol] 5 mg PO TID 09/07/22 09/07/22 Previous Rx's Medication Instructions Recorded RX: Metoprolol Tartrate [Lopressor] 50 mg PO BID #60 tab 10/15/21 Allergies Allergy/AdvReac Type Severity Reaction Status Date / Time cephalexin Allergy Anaphylaxis Verified 09/07/22 20:22 cephalexin monohydrate Allergy Anaphylaxis Verified 09/07/22 20:22 [From Keflex] Sulfa (Sulfonamide Allergy Rash/Hives Verified 09/07/22 20:22 Antibiotics) Review of Systems ROS Statement: Those systems with pertinent positive or pertinent negative responses have been documented in the HPI. ROS Other: All systems not noted in ROS Statement are negative. 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 Poly substance abuse 07/19/21 admitted for Acute delirium History of Any Multi-Drug Resistant Organisms: None Reported Past Surgical History: Cholecystectomy, Coronary Bypass/CABG, Hernia Repair, Orthopedic Surgery, Tonsillectomy, Tubal Ligation Additional Past Surgical History / Comment(s): LEFT KNEE ARTHROSCOPY, BMT AND MYRINGOPLASTY, umbilical hernia repair, CABG 2020 Past Anesthesia/Blood Transfusion Reactions: No Reported Reaction Additional Past Anesthesia/Blood Transfusion Reaction / Comment(s): STATES AFTER LAST EAR SX (11/2013) HAD SORE MUSCLES AND WAS WEAK FOR 3-4 DAYS Past Psychological History: Unable to Obtain Smoking Status: Former smoker Past Alcohol Use History: None Reported Past Drug Use History: Marijuana, Methamphetamine - Past Family History Sister(s) Family Medical History: Cancer Brother(s) Family Medical History: Cancer Additional Family Medical History / Comment(s): brother had heart valve replacement Mother Family Medical History: Chest Pain / Angina, Diabetes Mellitus, Hypertension Father History Unknown: Yes General Exam Limitations: altered mental status (Patient was ANO 2-3) General appearance: alert, in no apparent distress Head exam: Present: normocephalic, other (Patient had healing contusion noted to the left side of the face around the left orbit with no new signs of trauma noted) Eye exam: Present: normal appearance, PERRL, EOMI Pupils: Present: normal accommodation ENT exam: Present: normal exam, normal oropharynx, mucous membranes moist Neck exam: Present: normal inspection Respiratory exam: Present: normal lung sounds bilaterally Cardiovascular Exam: Present: regular rate, normal rhythm, normal heart sounds GI/Abdominal exam: Present: soft, normal bowel sounds Extremities exam: Present: normal inspection, full ROM Back exam: Present: normal inspection, full ROM Neurological exam: Present: alert, altered (ANO 2-3), CN II-XII intact Psychiatric exam: Present: normal affect, normal mood Skin exam: Present: warm, dry Course Vital Signs 09/07/22 09/07/22 09/07/22 15:44 17:41 18:20 Temperature 97.7 F Pulse Rate 88 90 80 Respiratory 18 18 16 Rate Blood Pressure 124/66 124/64 124/64 O2 Sat by Pulse 96 97 98 Oximetry 09/07/22 19:25 Temperature Pulse Rate 80 Respiratory 16 Rate Blood Pressure 110/76 O2 Sat by Pulse 97 Oximetry EKG Findings - EKG Comments: EKG Findings:: EKG was read by myself and showed a normal sinus rhythm with occasional PVCs. There were no ST segment elevations or depressions noted. Rate was 93, KS interval was 141, QRS duration was 113 and QTC was 426. There were no old EKGs for comparison at this time. Medical Decision Making - Medical Decision Making The patient was seen and evaluated in emergency department. Physical exam, the patient was resting in bed without any acute distress. Vital signs admission was stable and within normal limits. The patient was overall poor historian and there was no clear past medical history and any confirmation if there was a fall yesterday. Due to the patient's reported possible fall, CT head, CT C-spine and x-rays were obtained. Laboratory workup was also obtained at this time. The patient continued to remain stable. All imaging was negative. Laboratory workup was obtained that was largely within normal limits however urine drug screen did show positive for methamphetamines, benzodiazepines and marijuana. I spoke with sonAxel, and he voices concern about keeping the patient at home. The patient had multiple falls at home and the grandson was concerned for continued falling and worsening injuries. The patient continued to remain altered, ANO 2-3, and therefore the patient did require admission. The [facility] primary care physician, Dr. Rodríguez, was contacted regarding the admission and he did accept. Both the patient and her grandson were told this plan and were agreeable. The patient will be admitted for failure to thrive and possible assisted placement. The patient was admitted in stable condition. - Lab Data Result diagrams: 09/07/22 17:38 09/07/22 17:38 Lab Results 09/07/22 09/07/22 09/07/22 Range/Units 17:38 17:38 17:38 WBC 10.3 (3.8-10.6) k/uL RBC 5.02 (3.80-5.40) m/uL Hgb 12.5 (11.4-16.0) gm/dL Hct 38.9 (34.0-46.0) % MCV 77.6 L (80.0-100.0) fL MCH 25.0 (25.0-35.0) pg MCHC 32.2 (31.0-37.0) g/dL RDW 16.1 H (11.5-15.5) % Plt Count 333 (150-450) k/uL MPV 8.8 Neutrophils % 81 % Lymphocytes % 12 % Monocytes % 4 % Eosinophils % 1 % Basophils % 0 % Neutrophils # 8.4 H (1.3-7.7) k/uL Lymphocytes # 1.2 (1.0-4.8) k/uL Monocytes # 0.4 (0-1.0) k/uL Eosinophils # 0.1 (0-0.7) k/uL Basophils # 0.0 (0-0.2) k/uL Hypochromasia Moderate Anisocytosis Slight Microcytosis Slight PT 10.5 (9.0-12.0) sec INR 1.0 (<1.2) APTT 24.5 (22.0-30.0) sec Sodium 137 (137-145) mmol/L Potassium 3.8 (3.5-5.1) mmol/L Chloride 100 (98-107) mmol/L Carbon Dioxide 27 (22-30) mmol/L Anion Gap 10 mmol/L BUN 33 H (7-17) mg/dL Creatinine 1.09 H (0.52-1.04) mg/dL Est GFR (CKD-EPI)AfAm 59 (>60 ml/min/1.73 sqM) Est GFR (CKD-EPI)NonAf 51 (>60 ml/min/1.73 sqM) Glucose 168 H (74-99) mg/dL Plasma Lactic Acid Angel (0.7-2.0) mmol/L Calcium 8.9 (8.4-10.2) mg/dL Total Bilirubin 0.4 (0.2-1.3) mg/dL AST 27 (14-36) U/L ALT 33 (4-34) U/L Alkaline Phosphatase 123 (38-126) U/L Ammonia (<30) umol/L Troponin I (0.000-0.034) ng/mL Total Protein 7.1 (6.3-8.2) g/dL Albumin 4.1 (3.5-5.0) g/dL Urine Color Urine Appearance (Clear) Urine pH (5.0-8.0) Ur Specific [place] (1.001-1.035) Urine Protein (Negative) Urine Glucose (UA) (Negative) Urine Ketones (Negative) Urine Blood (Negative) Urine Nitrite (Negative) Urine Bilirubin (Negative) Urine Urobilinogen (<2.0) mg/dL Ur Leukocyte Esterase (Negative) Urine RBC (0-5) /hpf Urine WBC (0-5) /hpf Ur Squamous Epith Cells (0-4) /hpf Urine Bacteria (None) /hpf Cellular Casts (0) /lpf Hyaline Casts (0-2) /lpf Urine Mucus (None) /hpf Urine Opiates Screen (NotDetected) Ur Oxycodone Screen (NotDetected) Urine Methadone Screen (NotDetected) Ur Propoxyphene Screen (NotDetected) Ur Barbiturates Screen (NotDetected) U Tricyclic Antidepress (NotDetected) Ur Phencyclidine Scrn (NotDetected) Ur Amphetamines Screen (NotDetected) U Methamphetamines Scrn (NotDetected) U Benzodiazepines Scrn (NotDetected) Urine Cocaine Screen (NotDetected) U Marijuana (THC) Screen (NotDetected) 09/07/22 09/07/22 09/07/22 Range/Units 17:38 19:14 19:20 WBC (3.8-10.6) k/uL RBC (3.80-5.40) m/uL Hgb (11.4-16.0) gm/dL Hct (34.0-46.0) % MCV (80.0-100.0) fL MCH (25.0-35.0) pg MCHC (31.0-37.0) g/dL RDW (11.5-15.5) % Plt Count (150-450) k/uL MPV Neutrophils % % Lymphocytes % % Monocytes % % Eosinophils % % Basophils % % Neutrophils # (1.3-7.7) k/uL Lymphocytes # (1.0-4.8) k/uL Monocytes # (0-1.0) k/uL Eosinophils # (0-0.7) k/uL Basophils # (0-0.2) k/uL Hypochromasia Anisocytosis Microcytosis PT (9.0-12.0) sec INR (<1.2) APTT (22.0-30.0) sec Sodium (137-145) mmol/L Potassium (3.5-5.1) mmol/L Chloride (98-107) mmol/L Carbon Dioxide (22-30) mmol/L Anion Gap mmol/L BUN (7-17) mg/dL Creatinine (0.52-1.04) mg/dL Est GFR (CKD-EPI)AfAm (>60 ml/min/1.73 sqM) Est GFR (CKD-EPI)NonAf (>60 ml/min/1.73 sqM) Glucose (74-99) mg/dL Plasma Lactic Acid Angel (0.7-2.0) mmol/L Calcium (8.4-10.2) mg/dL Total Bilirubin (0.2-1.3) mg/dL AST (14-36) U/L ALT (4-34) U/L Alkaline Phosphatase (38-126) U/L Ammonia (<30) umol/L Troponin I <0.012 (0.000-0.034) ng/mL Total Protein (6.3-8.2) g/dL Albumin (3.5-5.0) g/dL Urine Color Yellow Urine Appearance Clear (Clear) Urine pH 5.5 (5.0-8.0) Ur Specific [place] 1.024 (1.001-1.035) Urine Protein 1+ H (Negative) Urine Glucose (UA) Negative (Negative) Urine Ketones Trace H (Negative) Urine Blood Negative (Negative) Urine Nitrite Negative (Negative) Urine Bilirubin Negative (Negative) Urine Urobilinogen <2.0 (<2.0) mg/dL Ur Leukocyte Esterase Negative (Negative) Urine RBC 1 (0-5) /hpf Urine WBC 7 H (0-5) /hpf Ur Squamous Epith Cells <1 (0-4) /hpf Urine Bacteria Rare H (None) /hpf Cellular Casts 5 (0) /lpf Hyaline Casts 8 H (0-2) /lpf Urine Mucus Rare H (None) /hpf Urine Opiates Screen Not Detected (NotDetected) Ur Oxycodone Screen Not Detected (NotDetected) Urine Methadone Screen Not Detected (NotDetected) Ur Propoxyphene Screen Not Detected (NotDetected) Ur Barbiturates Screen Not Detected (NotDetected) U Tricyclic Antidepress Not Detected (NotDetected) Ur Phencyclidine Scrn Not Detected (NotDetected) Ur Amphetamines Screen Not Detected (NotDetected) U Methamphetamines Scrn Detected H (NotDetected) U Benzodiazepines Scrn Detected H (NotDetected) Urine Cocaine Screen Not Detected (NotDetected) U Marijuana (THC) Screen Detected H (NotDetected) 09/07/22 Range/Units 19:40 WBC (3.8-10.6) k/uL RBC (3.80-5.40) m/uL Hgb (11.4-16.0) gm/dL Hct (34.0-46.0) % MCV (80.0-100.0) fL MCH (25.0-35.0) pg MCHC (31.0-37.0) g/dL RDW (11.5-15.5) % Plt Count (150-450) k/uL MPV Neutrophils % % Lymphocytes % % Monocytes % % Eosinophils % % Basophils % % Neutrophils # (1.3-7.7) k/uL Lymphocytes # (1.0-4.8) k/uL Monocytes # (0-1.0) k/uL Eosinophils # (0-0.7) k/uL Basophils # (0-0.2) k/uL Hypochromasia Anisocytosis Microcytosis PT (9.0-12.0) sec INR (<1.2) APTT (22.0-30.0) sec Sodium (137-145) mmol/L Potassium (3.5-5.1) mmol/L Chloride (98-107) mmol/L Carbon Dioxide (22-30) mmol/L Anion Gap mmol/L BUN (7-17) mg/dL Creatinine (0.52-1.04) mg/dL Est GFR (CKD-EPI)AfAm (>60 ml/min/1.73 sqM) Est GFR (CKD-EPI)NonAf (>60 ml/min/1.73 sqM) Glucose (74-99) mg/dL Plasma Lactic Acid Angel 1.3 (0.7-2.0) mmol/L Calcium (8.4-10.2) mg/dL Total Bilirubin (0.2-1.3) mg/dL AST (14-36) U/L ALT (4-34) U/L Alkaline Phosphatase (38-126) U/L Ammonia <9 (<30) umol/L Troponin I (0.000-0.034) ng/mL Total Protein (6.3-8.2) g/dL Albumin (3.5-5.0) g/dL Urine Color Urine Appearance (Clear) Urine pH (5.0-8.0) Ur Specific [place] (1.001-1.035) Urine Protein (Negative) Urine Glucose (UA) (Negative) Urine Ketones (Negative) Urine Blood (Negative) Urine Nitrite (Negative) Urine Bilirubin (Negative) Urine Urobilinogen (<2.0) mg/dL Ur Leukocyte Esterase (Negative) Urine RBC (0-5) /hpf Urine WBC (0-5) /hpf Ur Squamous Epith Cells (0-4) /hpf Urine Bacteria (None) /hpf Cellular Casts (0) /lpf Hyaline Casts (0-2) /lpf Urine Mucus (None) /hpf Urine Opiates Screen (NotDetected) Ur Oxycodone Screen (NotDetected) Urine Methadone Screen (NotDetected) Ur Propoxyphene Screen (NotDetected) Ur Barbiturates Screen (NotDetected) U Tricyclic Antidepress (NotDetected) Ur Phencyclidine Scrn (NotDetected) Ur Amphetamines Screen (NotDetected) U Methamphetamines Scrn (NotDetected) U Benzodiazepines Scrn (NotDetected) Urine Cocaine Screen (NotDetected) U Marijuana (THC) Screen (NotDetected) Critical Care Time Critical Care Time: Yes Total Critical Care Time: 32 Disposition Clinical Impression: Fall, Failure to thrive Disposition: ADMITTED IP TO THIS [facility] Condition: Stable Is patient prescribed a controlled substance at d/c from ED?: No Referrals: Surinder Rodríguez MD [Primary Care Provider] - 1-2 days Time of Disposition: 21:30 Decision to Admit Reason: Admit from EC Decision Date: 09/07/22 Decision Time: 21:30
[2022-09-07 17:45] LABS: Anisocytosis Slight; Basophils % (A) 0 %; Eosinophils # (A) 0.1 k/uL (0-0.7); Eosinophils % (A) 1 %; HCT 38.9 % (34.0-46.0); HGB 12.5 gm/dL (11.4-16.0); Hypochromasia Moderate; Lymphocytes # (A) 1.2 k/uL (1.0-4.8); Lymphocytes % (A) 12 %; MCHC 32.2 g/dL (31.0-37.0); MCV 77.6 fL (80.0-100.0); Mean Platelet Volume 8.8; Microcytosis Slight; Monocytes # (A) 0.4 k/uL (0-1.0); Monocytes % (A) 4 %; Neutrophils # (A) 8.4 k/uL (1.3-7.7); Neutrophils % (A) 81 %; Platelet Count 333 k/uL (150-450); RBC 5.02 m/uL (3.80-5.40); RDW 16.1 % (11.5-15.5); WBC 10.3 k/uL (3.8-10.6)
[2022-09-07 17:56] LABS: Albumin 4.1 g/dL (3.5-5.0); Calcium 8.9 mg/dL (8.4-10.2); Potassium 3.8 mmol/L (3.5-5.1); Total Bilirubin 0.4 mg/dL (0.2-1.3); Total Protein 7.1 g/dL (6.3-8.2)
[2022-09-07 17:58] LABS: Partial Thromboplastin Time 24.5 sec (22.0-30.0); Prothrombin Time 10.5 sec (9.0-12.0)
--- NOTE | 2022-09-07 18:46 | CT ---
EXAMINATION TYPE: CT brain cspine wo con CT DLP: 1702 mGycm, Automated exposure control for dose reduction was used. DATE OF EXAM: 09/07/2022 6:32 PM COMPARISON: 10/06/2021 CT brain CLINICAL INDICATION:Female, 72 years old with history of Neck trauma; TECHNIQUE: Brain: Multiple axial CT images of the brain were obtained without IV contrast. Cspine: Axial CT images from the skull base to the inferior aspect of T2 we obtained without intraven ous contrast. Coronal and sagittal reformatted images were also reviewed. FINDINGS: Brain: Extra-axial spaces: No abnormal extra-axial fluid collections. Ventricular system: Within normal limits Cerebral parenchyma: No acute intraparenchymal hemorrhage or mass effect. The copeland-white junction is well differentiated. Cerebellum: Unremarkable. Mass effect: No evidence of midline shift. Intracranial vasculature: Atherosclerotic calcifications of the intracranial vessels. Soft tissues: Normal. Calvarium/osseous structures: No depressed skull fracture. Paranasal sinuses and mastoid air cells: Mild scattered mucosal thickening and or secretions. Visualized orbits: Orbital contents are intact. Cervical spine: Fracture: None. Osseous structures: Multilevel degenerative disc disease changes with endplate spurring and disc oste ophyte complex's. Sternotomy wires are present. Vertebral alignment: Within normal limits. Spinal canal/Neural Foramina: No evidence of significant spinal canal narrowing. No evidence for sign ificant neural foraminal stenosis. Neck soft tissues: Prevertebral soft tissues are within normal limits. Other: The airway is patent. The lung apices are clear. Right thyroid gland nodule measuring up to 1. 8 cm. Atherosclerosis of the arterial vasculature.1 IMPRESSION: 1. No acute intracranial process. 2. No evidence of cervical spine fracture. 3. Mild multilevel degenerative disc disease. 4. Right thyroid nodules. Consider dedicated thyroid ultrasound for complete evaluation of the thyro id nodules.
--- NOTE | 2022-09-07 18:48 | XR ---
EXAMINATION TYPE: XR chest 2V DATE OF EXAM: 09/07/2022 6:12 PM COMPARISON: Chest radiographs from 05/26/2022. TECHNIQUE: XR chest 2V Frontal and lateral views of the chest. CLINICAL INDICATION:Female, 72 years old with history of AMS; FINDINGS: Lungs/Pleura: There is no evidence of pleural effusion, focal consolidation, or pneumothorax. Pulmonary vascularity: Unremarkable. Heart/mediastinum: Cardiomediastinal silhouette is enlarged and stable. Left atrial appendage occlus ion device is present. Musculoskeletal: No acute osseous pathology. Midline sternotomy wires are noted. Other findings: None IMPRESSION: No acute cardiopulmonary disease/process.
[2022-09-07 19:29] LABS: Appearance,Urine Clear (Clear); Bacteria,Urine Rare /hpf; Bilirubin,Urine Negative (Negative); Blood,Urine Negative (Negative); Cellular Casts,Urine 5 /lpf (0); Color,Urine Yellow; Glucose,Urine (UA) Negative (Negative); Hyaline Casts,Urine 8 /lpf (0-2); Ketones,Urine Trace (Negative); Leukocyte Esterase,Urine Negative (Negative); Mucus,Urine Rare /hpf; Nitrite,Urine Negative (Negative); PH, Urine 5.5 (5.0-8.0); Protein,Urine 1+ (Negative); RBC,Urine 1 /hpf (0-5); Specific Gravity,Urine 1.024 (1.001-1.035); Squamous Epithelial Cell,Urine <1 /hpf (0-4); Urobilinogen,Urine <2.0 mg/dL (<2.0); WBC,Urine 7 /hpf (0-5)
[2022-09-07 19:31] LABS: Amphetamine Screen,Urine Not Detected (NotDetected); Barbiturate Screen,Urine Not Detected (NotDetected); Benzodiazepines Screen,Urine Detected (NotDetected); Cocaine Screen,Urine Not Detected (NotDetected); Methadone Screen, Urine Not Detected (NotDetected); Opiate Screen,Urine Not Detected (NotDetected); Oxycodone Screen, Urine Not Detected (NotDetected); Phencyclidine Screen,Urine Not Detected (NotDetected); Tricyclic Antidepressant,Urine Not Detected (NotDetected); Urn Cannabinoid Scrn Detected (NotDetected)
[2022-09-07 19:57] LABS: Lactic Acid, Venous 1.3 mmol/L (0.7-2.0)
[2022-09-07] MEDS ORDERED: NALOXONE 0.4 MG/ML 1 ML VIAL IV PRN (21:38)
[2022-09-07] MEDS: NYSTATIN 100,000 UNIT/GM OINT 30 GM TUBE TOPICAL SCH (22:09)
[2022-09-07] MEDS: SODIUM CHLORIDE 0.9% 1,000 ML IV SCH (22:10)
[2022-09-08 05:11] LABS: Glucose,Whole Blood 164 mg/dL (70-110)
--- NOTE | 2022-09-08 08:44 | US ---
EXAMINATION TYPE: US venous doppler duplex LE DATE OF EXAM: 09/08/2022 8:26 AM COMPARISON: NONE CLINICAL HISTORY: elevated d-dimer. SIDE PERFORMED: Bilateral TECHNIQUE: The lower extremity deep venous system is examined utilizing real time linear array sonog malia with graded compression, doppler sonography and color-flow sonography. VESSELS IMAGED: Common Femoral Vein Deep Femoral Vein Greater Saphenous Vein * Femoral Vein Popliteal Vein Small Saphenous Vein * Proximal Calf Veins (* superficial vessels) Grayscale, color doppler, spectral doppler imaging performed of the deep veins of the lower extremiti es. There is normal flow, compressibility, vascular waveforms. Right Leg: Negative for DVT Left Leg: Negative for DVT Patient uncooperative, especially with left leg. Probable Mederos's cyst seen on right measuring 3.5 x 1.2 x 3.3cm Mederos's cyst believed to be seen on left, however patient was moving and ceased test before tech [employer] document. IMPRESSION: 1. No ultrasound evidence for deep venous thrombosis of the bilateral lower extremities with the rose itations of the exam. 2. Right Mederos's cyst. 3. Per physiotherapist's assistant, questionable left Mederos's cyst however evaluation is limited due to patient move ment and request to end examination.
[2022-09-08] MEDS ORDERED: ENOXAPARIN 80 MG/0.8 ML SYRINGE SQ SCH (09:00)
[2022-09-08] MEDS ORDERED: BACLOFEN 10 MG TAB PO PRN (09:55)
--- NOTE | 2022-09-08 10:20 | XR ---
EXAMINATION TYPE: XR foot complete LT DATE OF EXAM: 09/08/2022 10:14 AM INDICATION: Patient age:Female; 72 years old; Reason for study: injury, bruise, pain; PHH. COMPARISON: None TECHNIQUE: The left foot was examined in the AP, oblique, and lateral projections. FINDINGS: No evidence of any acute osseous pathology. No osseous erosions. No radiopaque foreign bodies. Soft tissue swelling of the dorsal midfoot. Joints are preserved. Plantar calcaneal enthesophyte. IMPRESSION: 1. No evidence of acute fracture. 2. Soft tissue swelling of the dorsal midfoot.
[2022-09-08] MEDS: SPIRONOLACTONE 25 MG TAB PO SCH (10:34)
[2022-09-08] MEDS: ASPIRIN 81 MG PO SCH (10:34)
[2022-09-08] MEDS: CLOPIDOGREL 75 MG TAB PO SCH (10:34)
[2022-09-08] MEDS: traMADol 50 MG TAB PO PRN (10:34)
[2022-09-08] MEDS: DOCUSATE 100 MG CAP PO SCH ×2 (10:34→20:08)
[2022-09-08] MEDS: LOSARTAN 25 MG TAB PO SCH (10:34)
[2022-09-08] MEDS: NYSTATIN 100,000 UNIT/GM OINT 30 GM TUBE TOPICAL SCH ×2 (10:36→20:09)
[2022-09-08] MEDS: CLINDAMYCIN 600 MG in DEXTROSE 5% IN WATER 50 ML IVPB SCH ×4 (10:46→19:33)
[2022-09-08] MEDS: DILTIAZEM CD 120 MG CAP.ER.24H PO SCH (10:47)
[2022-09-08] MEDS: PRAMIPEXOLE 1 MG TAB PO SCH (10:47)
[2022-09-08] MEDS: LINAGLIPTIN 5 MG TABLET PO SCH (10:47)
[2022-09-08] MEDS: SODIUM CHLORIDE 0.9% 1,000 ML IV SCH (13:58)
[2022-09-08] MEDS ORDERED: ONDANSETRON 4 MG/2 ML VIAL IVP PRN (15:43)
--- NOTE | 2022-09-08 17:47 | P.HPIM ---
History of Present Illness H&P Date: 09/08/22 Mark Moore, is a 72-year-old female who presented to [facility] emergency room after sustaining a fall at home, initially patient had significant confusion and mental status changes He was evaluated in the emergency room vital examination on presentation revealed a temperature of 97.7 pulse 88 respiration 18 blood pressure 124/66 pulse ox 96% on room air Laboratory data reveals a white blood count of 10.3 hemoglobin 12.5 platelet count 333 BUN 33 creatinine 1.09 toxicology screen was positive for methamphetamine, benzodiazepine, and marijuana THC Testing in the emergency room revealed computed tomography scan of the head and cervical spine did not reveal any acute intracranial abnormality or acute cervical spine fracture there was evidence of right thyroid nodule Patient was admitted to medical floor for further evaluation and treatment Past Medical History Past Medical History: Asthma, Coronary Artery Disease (CAD), Heart Failure, Diabetes Mellitus, Fibromyalgia, Hyperlipidemia, Hypertension, Musculoskeletal Disorder, Osteoarthritis (OA), Sleep Apnea/CPAP/BIPAP Additional Past Medical History / Comment(s): TESTED POSITIVE FOR LUPUS (STATES NO SYMPTOMS), DOES NOT USE CPAP, SEASONAL ALLERGIES, STATES 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 Poly substance abuse 07/19/21 admitted for Acute delirium History of Any Multi-Drug Resistant Organisms: None Reported Past Surgical History: Cholecystectomy, Coronary Bypass/CABG, Hernia Repair, Orthopedic Surgery, Tonsillectomy, Tubal Ligation Additional Past Surgical History / Comment(s): LEFT KNEE ARTHROSCOPY, BMT AND MYRINGOPLASTY, umbilical hernia repair, CABG 2020 Past Anesthesia/Blood Transfusion Reactions: No Reported Reaction Additional Past Anesthesia/Blood Transfusion Reaction / Comment(s): STATES AFTER LAST EAR SX (11/2013) HAD SORE MUSCLES AND WAS WEAK FOR 3-4 DAYS Past Psychological History: Unable to Obtain Smoking Status: Former smoker Past Alcohol Use History: None Reported Additional Past Alcohol Use History / Comment(s): SMOKED 1PPD , SMOKED 10 YEARS . QUIT SMOKING 20 YRS AGO OR MORE. Past Drug Use History: Marijuana, Methamphetamine Additional Drug Use History / Comment(s): MEDICAL CARD. Patient admitted 07/16/21 positive for methamphetamines; amphetamines; benzos; opiates; and marijuana - Past Family History Sister(s) Family Medical History: Cancer Brother(s) Family Medical History: Cancer Additional Family Medical History / Comment(s): brother had heart valve replacement Mother Family Medical History: Chest Pain / Angina, Diabetes Mellitus, Hypertension Father History Unknown: Yes Medications and Allergies Home Medications Medication Instructions Recorded Confirmed Type traMADol HCl [Ultram] 100 mg PO BID PRN 11/04/15 09/07/22 History Baclofen 10 mg PO TID PRN 09/14/16 09/07/22 History Metoprolol Tartrate [Lopressor] 50 mg PO BID #60 tab 10/15/21 09/07/22 Rx Losartan [Cozaar] 25 mg PO DIRECTED 11/26/21 09/07/22 History Aspirin EC [Ecotrin Low Dose] 81 mg PO DIRECTED 01/13/22 09/07/22 History Atorvastatin [Lipitor] 40 mg PO DIRECTED 01/13/22 09/07/22 History Pramipexole [Mirapex] 1 mg PO DIRECTED 05/26/22 09/07/22 History sitaGLIPtin [Januvia] 100 mg PO DIRECTED 05/26/22 09/07/22 History Clopidogrel [Plavix] 75 mg PO DIRECTED 09/07/22 09/07/22 History Diltiazem Cd [Cardizem CD] 120 mg PO DIRECTED 09/07/22 09/07/22 History Docusate [Colace] 100 mg PO DIRECTED 09/07/22 09/07/22 History Ergocalciferol (Vitamin D2) 1,250 mcg PO Q7D 09/07/22 09/07/22 History [Drisdol (50,000 Iu)] Ibuprofen [Motrin] 800 mg PO Q8H PRN 09/07/22 09/07/22 History Insulin Detemir (Levemir) [Levemir] 10 unit SQ DAILY 09/07/22 09/07/22 History Spironolactone [Aldactone] 25 mg PO DIRECTED 09/07/22 09/07/22 History glipiZIDE [Glucotrol] 5 mg PO TID 09/07/22 09/07/22 History Allergies Allergy/AdvReac Type Severity Reaction Status Date / Time cephalexin Allergy Anaphylaxis Verified 09/07/22 20:22 cephalexin monohydrate Allergy Anaphylaxis Verified 09/07/22 20:22 [From Keflex] Sulfa (Sulfonamide Allergy Rash/Hives Verified 09/07/22 20:22 Antibiotics) Physical Exam Vitals: Vital Signs Temp Pulse Pulse Resp BP BP Pulse Ox 09/08/22 07:40 98.1 F 113 H 16 159/75 97 09/08/22 01:02 98.8 F 111 H 16 132/85 95 09/07/22 21:56 97 16 110/73 97 09/07/22 19:25 80 16 110/76 97 09/07/22 18:20 80 16 124/64 98 09/07/22 17:41 90 18 124/64 97 09/07/22 15:44 97.7 F 88 18 124/66 96 Intake and Output 09/07/22 09/08/22 09/08/22 22:59 06:59 14:59 Intake Total 500 Balance 500 Intake: Oral 500 Other: Voiding Method Toilet # Voids 2 Weight 68.039 kg 68.039 kg In general patient is alert and oriented x 3 in no distress HEENT head normocephalic and atraumatic Neck is supple no JVD no goiter no lymphadenopathy no carotid bruit Chest examination is clear to auscultation no crackles no wheezing Cardiac exam reveals regular heart sounds S1 and S2 no gallops no murmurs Abdomen is soft nontender no organomegaly with normal bowel sounds Extremity exam reveals no edema no cyanosis or clubbing Neurological examination reveals no gross focal deficits Results CBC & Chem 7: 09/07/22 17:38 09/07/22 17:38 Labs: Abnormal Lab Results - Last 24 Hours (Table) 09/07/22 09/07/22 09/07/22 Range/Units 17:38 17:38 19:14 MCV 77.6 L (80.0-100.0) fL RDW 16.1 H (11.5-15.5) % Neutrophils # 8.4 H (1.3-7.7) k/uL D-Dimer (<0.60) mg/L FEU BUN 33 H (7-17) mg/dL Creatinine 1.09 H (0.52-1.04) mg/dL Glucose 168 H (74-99) mg/dL POC Glucose (mg/dL) (70-110) mg/dL Urine Protein (Negative) Urine Ketones (Negative) Urine WBC (0-5) /hpf Urine Bacteria (None) /hpf Hyaline Casts (0-2) /lpf Urine Mucus (None) /hpf U Methamphetamines Scrn Detected H (NotDetected) U Benzodiazepines Scrn Detected H (NotDetected) U Marijuana (THC) Screen Detected H (NotDetected) 09/07/22 09/08/22 09/08/22 Range/Units 19:20 03:49 05:10 MCV (80.0-100.0) fL RDW (11.5-15.5) % Neutrophils # (1.3-7.7) k/uL D-Dimer 6.32 H (<0.60) mg/L FEU BUN (7-17) mg/dL Creatinine (0.52-1.04) mg/dL Glucose (74-99) mg/dL POC Glucose (mg/dL) 164 H (70-110) mg/dL Urine Protein 1+ H (Negative) Urine Ketones Trace H (Negative) Urine WBC 7 H (0-5) /hpf Urine Bacteria Rare H (None) /hpf Hyaline Casts 8 H (0-2) /lpf Urine Mucus Rare H (None) /hpf U Methamphetamines Scrn (NotDetected) U Benzodiazepines Scrn (NotDetected) U Marijuana (THC) Screen (NotDetected) Thrombosis Risk Factor Assmnt - Choose All That Apply Each Factor Represents 1 point: Obesity (BMI >25), Swollen legs (current) Thrombosis Risk Factor Assessment Total Risk Factor Score: 2 Thrombosis Risk Factor Assessment Level: Low Risk Assessment and Plan Plan: Mental status changes Fall, with multiple injuries to the left side of the face and the left foot Bilateral lower extremity cellulitis Elevated D-Dimer, no evidence of DVT Underlying history of hypertension Underlying history of hyperlipidemia Underlying history of insulin-dependent diabetes mellitus Underlying history of degenerative disc disease with chronic back pain Underlying history of restless leg syndrome Right thyroid nodules will defer thyroid ultrasound to the outpatient setting At this time patient is admitted to medical floor She was started on IV antibiotic for bilateral lower extremity cellulitis D-dimer was elevated, initially patient was started on full therapeutic dose of Lovenox, however bilateral lower extremity Doppler was negative for DVT, Lovenox was de-escalate it to 40 mg subcu daily prophylactic dose Patient does not have any chest symptoms to suggest pulmonary embolism there is no shortness of breath no cough no chest pain no pleuritic pain, initially chest CT angiogram was deferred due to lack of symptoms, however subsequently patient had mild tachycardia and CT angiogram of the chest was ordered to rule out PE Physical therapy and occupational therapy requested Will follow closely
--- NOTE | 2022-09-08 18:04 | P.PN ---
Progress Note - Text Progress Note Date: 09/08/22 Patient was seen and examined again this afternoon Patient had episodes of nausea and vomiting and abdominal discomfort Labs including CBC CMP and lipase were ordered Abdomen ultrasound requested Gastroenterology consultation was requested At this time will discontinue IV Cleocin, consultation for infectious disease initiated
[2022-09-08 18:46] LABS: Anisocytosis Slight; Basophils % (A) 0 %; Eosinophils # (A) 0.2 k/uL (0-0.7); Eosinophils % (A) 3 %; HGB 12.3 gm/dL (11.4-16.0); Hypochromasia Marked; Lymphocytes # (A) 2.1 k/uL (1.0-4.8); Lymphocytes % (A) 27 %; MCH 24.8 pg (25.0-35.0); MCHC 31.5 g/dL (31.0-37.0); MCV 78.8 fL (80.0-100.0); Mean Platelet Volume 7.8; Microcytosis Slight; Monocytes # (A) 0.5 k/uL (0-1.0); Monocytes % (A) 6 %; Neutrophils # (A) 4.6 k/uL (1.3-7.7); Neutrophils % (A) 61 %; Platelet Count 345 k/uL (150-450); RBC 4.95 m/uL (3.80-5.40); RDW 16.2 % (11.5-15.5); WBC 7.6 k/uL (3.8-10.6)
[2022-09-08 19:06] LABS: ALT 28 U/L (4-34); AST 21 U/L (14-36); African American GFR (CKD) >90 (>60 ml/min/1.73 sqM); Albumin/Globulin Ratio 1.3; Alkaline Phosphatase 114 U/L (38-126); Anion Gap 8 mmol/L; Blood Urea Nitrogen 19 mg/dL (7-17); Calcium 8.5 mg/dL (8.4-10.2); Carbon Dioxide 28 mmol/L (22-30); Chloride 100 mmol/L (98-107); Glucose 184 mg/dL (74-99); Lipase 75 U/L (23-300); Non-African American GFR(CKD) 87 (>60 ml/min/1.73 sqM); Potassium 3.3 mmol/L (3.5-5.1); Sodium 136 mmol/L (137-145); Total Bilirubin 0.4 mg/dL (0.2-1.3)
[2022-09-08] MEDS ORDERED: Potassium Replacement Protocol 1 EACH MISC MISCELLANE PRN (19:27)
--- NOTE | 2022-09-08 19:29 | CT ---
EXAMINATION TYPE: CT angio chest DATE OF EXAM: 09/08/2022 COMPARISON: CTA chest May 27, 2022 HISTORY: Elevated d dimer CT DLP: 384.5 mGycm. Automated Exposure Control for Dose Reduction was Utilized. CONTRAST: CTA scan of the thorax is performed with IV Contrast, patient injected with 100 mL of Isovue 370, pul monary embolism protocol. MIP Images are created on CT scanner and reviewed. FINDINGS: Current exam slightly suboptimal with more artifact related to patient's inability to hold breath LUNGS: Stable 5 mm left upper lobe nodule axial image 31. Slight mosaic attenuation without suspiciou s focal consolidation. There is no pleural effusion or pneumothorax seen. No new greater than 5 mm n odules or masses The tracheobronchial tree is patent. MEDIASTINUM: There is satisfactory enhancement of the pulmonary artery and its branches, there is no CT evidence for pulmonary embolism. Satisfactory enhancement of the thoracic aorta without aneurysm o r dissection. Post-CABG changes with sternal wires and mediastinal clips are seen. There is SIMPSON harv esting noted. There are no greater than 1 cm hilar or mediastinal lymph nodes. No enlarging cardio megaly or pericardial effusion is seen. Heterogeneous enlarged right thyroid lobe redemonstrated. Lef t atrial appendage clip again seen. Calcification level of the mitral and aortic valves. OTHER: Bridging osteophytes in the mid to lower thoracic spine are redemonstrated. IMPRESSION: No CT evidence for acute pulmonary embolism. Possible mild bilateral edema. No suspicious new focal consolidation.
[2022-09-08] MEDS: POTASSIUM CHLORIDE ER 20 MEQ TAB.ER PO SCH ×2 (20:08→21:00)
[2022-09-08] MEDS: METOPROLOL TARTRATE 50 MG TAB PO SCH (20:08)
[2022-09-08] MEDS ORDERED: ATORVASTATIN 40 MG TAB PO SCH (21:00)
--- NOTE | 2022-09-08 23:30 | P.CONS ---
History of Present Illness - Reason for Consult Consult date: 09/08/22 Cellulitis Requesting physician: Surinder Rodríguez - Chief Complaint Fall and left leg swelling x one day - History of Present Illness Patient is a 72-year-old female presenting to the ER last evening after apparently the patient did have a fall fall happened the day before presentation to the hospital and the patient was complaining of left-sided facial pain patient also stubbed her left foot and did have significant bruising to the left second and third toe but no open wound or any drainage patient on presentation to the hospital afebrile and no fever has been recorded subsequently patient did have a normal white count with a mild left shift BUN and creatinine were elevated liver enzymes are normal urine has been negative urine drug screen was positive for methamphetamines benzo and marijuana patient did have a chest x-ray negative for acute cardiopulmonary disease patient did have a lower extremity Doppler that has been negative for DVT did show some Mederos's cyst on the right patient did have a x-ray of the foot no evidence of any fracture did show soft tissue swelling of the dorsum midfoot infectious he was consulted with concern for possible lower extremity cellulitis as mentioned earlier patient did have bruising to the left second and third toe and has been complaining of some dull aching pain to the left foot area 3-4 out of 10 and no radiation no open wound or any drainage Review of Systems Positive point has been mentioned in the HPI rest of the systems are negative Past Medical History Past Medical History: Asthma, Coronary Artery Disease (CAD), Heart Failure, D iabetes Mellitus, Fibromyalgia, Hyperlipidemia, Hypertension, Musculoskeletal Disorder, Osteoarthritis (OA), Sleep Apnea/CPAP/BIPAP Additional Past Medical History / Comment(s): TESTED POSITIVE FOR LUPUS (STATES NO SYMPTOMS), DOES NOT USE CPAP, SEASONAL ALLERGIES, STATES BACK PAIN DUE TO 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 Poly substance abuse 07/19/21 admitted for Acute delirium History of Any Multi-Drug Resistant Organisms: None Reported Past Surgical History: Cholecystectomy, Coronary Bypass/CABG, Hernia Repair, Orthopedic Surgery, Tonsillectomy, Tubal Ligation Additional Past Surgical History / Comment(s): LEFT KNEE ARTHROSCOPY, BMT AND MYRINGOPLASTY, umbilical hernia repair, CABG 2020 Past Anesthesia/Blood Transfusion Reactions: No Reported Reaction Additional Past Anesthesia/Blood Transfusion Reaction / Comm: STATES AFTER LAST EAR SX (11/2013) HAD SORE MUSCLES AND WAS WEAK FOR 3-4 DAYS Past Psychological History: Unable to Obtain Smoking Status: Former smoker Past Alcohol Use History: None Reported Additional Past Alcohol Use History / Comment(s): SMOKED 1PPD , SMOKED 10 YEARS . QUIT SMOKING 20 YRS AGO OR MORE. Past Drug Use History: Marijuana, Methamphetamine Additional Drug Use History / Comment(s): MEDICAL CARD. Patient admitted 07/16/21 positive for methamphetamines; amphetamines; benzos; opiates; and marijuana - Past Family History Sister(s) Family Medical History: Cancer Brother(s) Family Medical History: Cancer Additional Family Medical History / Comment(s): brother had heart valve replacement Mother Family Medical History: Chest Pain / Angina, Diabetes Mellitus, Hypertension Father History Unknown: Yes Medications and Allergies Home Medications Medication Instructions Recorded Confirmed Type traMADol HCl [Ultram] 100 mg PO BID PRN 11/04/15 09/07/22 History Baclofen 10 mg PO TID PRN 09/14/16 09/07/22 History Metoprolol Tartrate [Lopressor] 50 mg PO BID #60 tab 10/15/21 09/07/22 Rx Losartan [Cozaar] 25 mg PO DIRECTED 11/26/21 09/07/22 History Aspirin EC [Ecotrin Low Dose] 81 mg PO DIRECTED 01/13/22 09/07/22 History Atorvastatin [Lipitor] 40 mg PO DIRECTED 01/13/22 09/07/22 History Pramipexole [Mirapex] 1 mg PO DIRECTED 05/26/22 09/07/22 History sitaGLIPtin [Januvia] 100 mg PO DIRECTED 05/26/22 09/07/22 History Clopidogrel [Plavix] 75 mg PO DIRECTED 09/07/22 09/07/22 History Docusate [Colace] 100 mg PO DIRECTED 09/07/22 09/07/22 History Ergocalciferol (Vitamin D2) 1,250 mcg PO Q7D 09/07/22 09/07/22 History [Drisdol (50,000 Iu)] Ibuprofen [Motrin] 800 mg PO Q8H PRN 09/07/22 09/07/22 History Insulin Detemir (Levemir) [Levemir] 10 unit SQ DAILY 09/07/22 09/07/22 History Spironolactone [Aldactone] 25 mg PO DIRECTED 09/07/22 09/07/22 History Nystatin 100,000 Unit/gm Oint 1 applic TOPICAL BID 7 Days #1 each 09/09/22 Rx [Mycostatin Oint] Allergies Allergy/AdvReac Type Severity Reaction Status Date / Time cephalexin Allergy Anaphylaxis Verified 09/07/22 20:22 cephalexin monohydrate Allergy Anaphylaxis Verified 09/07/22 20:22 [From Keflex] Sulfa (Sulfonamide Allergy Rash/Hives Verified 09/07/22 20:22 Antibiotics) Physical Exam Vitals: Vital Signs Temp Pulse Pulse Resp BP BP Pulse Ox 09/08/22 15:40 121 H 115/75 97 09/08/22 14:38 98.3 F 72 16 97/57 96 09/08/22 14:00 16 09/08/22 08:00 16 09/08/22 07:40 98.1 F 113 H 16 159/75 97 09/08/22 01:02 98.8 F 111 H 16 132/85 95 09/07/22 21:56 97 16 110/73 97 09/07/22 19:25 80 16 110/76 97 Intake and Output 09/08/22 09/08/22 09/08/22 06:59 14:59 22:59 Intake Total 500 236 Output Total 6 Balance 500 236 -6 Intake: Oral 500 236 Output: Emesis 6 Other: Voiding Method Toilet Toilet # Voids 2 2 # Bowel Movements 2 Weight 68.039 kg GENERAL DESCRIPTION: Elderly female lying in bed, no distress. No tachypnea or accessory muscle of respiration use. HEENT: Shows Pallor , no scleral icterus. Oral mucous membrane is dry. No pharyngeal erythema or thrush NECK: Trachea central, no thyromegaly. LUNGS: Unlabored breathing. Clear to auscultation anteriorly. No wheeze or crackle. HEART: S1, S2, regular rate and rhythm. No loud murmur ABDOMEN: Soft, no tenderness , guarding or rigidity, no organomegaly EXTREMITIES: Left lower extremity swelling and some bruising to the toes no significant redness or open wound or any drainage SKIN: No rash, no masses palpable. NEUROLOGICAL: The patient is awake, alert, oriented x3, mood and affect normal. Results CBC & Chem 7: 09/09/22 04:56 09/09/22 04:56 Labs: Abnormal Lab Results - Last 24 Hours (Table) 09/07/22 09/07/22 09/08/22 Range/Units 19:14 19:20 03:49 D-Dimer 6.32 H (<0.60) mg/L FEU POC Glucose (mg/dL) (70-110) mg/dL Urine Protein 1+ H (Negative) Urine Ketones Trace H (Negative) Urine WBC 7 H (0-5) /hpf Urine Bacteria Rare H (None) /hpf Hyaline Casts 8 H (0-2) /lpf Urine Mucus Rare H (None) /hpf U Methamphetamines Scrn Detected H (NotDetected) U Benzodiazepines Scrn Detected H (NotDetected) U Marijuana (THC) Screen Detected H (NotDetected) 09/08/22 Range/Units 05:10 D-Dimer (<0.60) mg/L FEU POC Glucose (mg/dL) 164 H (70-110) mg/dL Urine Protein (Negative) Urine Ketones (Negative) Urine WBC (0-5) /hpf Urine Bacteria (None) /hpf Hyaline Casts (0-2) /lpf Urine Mucus (None) /hpf U Methamphetamines Scrn (NotDetected) U Benzodiazepines Scrn (NotDetected) U Marijuana (THC) Screen (NotDetected) Assessment and Plan (1) Left leg swelling Status: Acute Code(s): M79.89 - OTHER SPECIFIED SOFT TISSUE DISORDERS SNOMED Code(s): 728164870 Plan: 1patient presented to hospital with weakness and fall in this patient also stubbed her left foot with bruising to the left second and third toe and some swelling to the left foot more likely due to the trauma clinically not behaving as cellulitis in this patient with no fever or elevated white count 2we will check her inflammatory markers 3mild compression dressing to keep some of the swelling down 4no need for systemic antibiotic therapy at this point We will follow on clinical condition and cultures to further adjust medication if needed Thank you for this consultation will follow this patient along with you Time with Patient: Greater than 30
[2022-09-09] MEDS: POTASSIUM CHLORIDE ER 20 MEQ TAB.ER PO SCH ×2 (00:58→02:25)
[2022-09-09] MEDS: SODIUM CHLORIDE 0.9% 1,000 ML IV SCH (00:59)
[2022-09-09 06:45] LABS: Glucose,Whole Blood 158 mg/dL (70-110)
[2022-09-09] MEDS ORDERED: INSULIN DETEMIR (LEVEMIR) 100 UNIT/ML SYR SQ SCH (07:00)
--- NOTE | 2022-09-09 08:34 | P.CONS ---
History of Present Illness - Reason for Consult Consult date: 09/09/22 Vomiting Requesting physician: Surinder Rodríguez - Chief Complaint Fall, altered mental status - History of Present Illness This is a 72-year-old female with a past medical history of diabetes mellitus, coronary artery disease, asthma, heart failure, hyperlipidemia, fibromyalgia, hypertension and sleep apnea who presented to the emergency department 2 days ago after sustaining a fall. Patient was complaining of falling and hitting her head and face. She had left facial pain. She had a CT of the head and cervical spine that showed no acute intracranial process, no evidence of cervical spine fracture. Patient also had bilateral lower extremity edema and bruising. She underwent a venous duplex that was negative for DVT. Also had elevated troponin so underwent a CT angiogram of the chest that was negative for pulmonary embolism. Apparently yesterday patient started having 5-6 episodes of vomiting according to her nurse followed by diarrhea. According to the patient stated that she only had one episode of vomiting yesterday and one today. States she had several episodes of loose watery stool. Denies any abdominal pain, nausea, or vomiting at this time. Patient also had a urine drug screen that was positive for methamphetamines, marijuana and benzodiazepines. Yesterday patient had a drop in her potassium which was replaced with a repeat of 4.1 this m orning. She denies any hematemesis, coffee-ground emesis or blood in her stool. Gastroenterology was consulted for vomiting. Patient has been nothing by mouth through the night for abdominal ultrasound that was scheduled this morning which is currently pending. Patient underwent EGD and colonoscopy on 05/30/[address] Telles for anemia. EGD found a mild gastritis, small hiatal hernia and mild distal esophagitis. Colonoscopy revealed mild diverticulosis in sigmoid polyp status post polypectomy. Labs WBC 7.6 hemoglobin 12 hematocrit 39 platelet count 345,000 sodium 136 potassium 4.1 unit 19 creatinine 0.69 glucose 158 total bilirubin 0.4 AST 21 ALT 28 alkaline phosphatase 114 lipase 75 Review of Systems REVIEW OF SYSTEMS: CARDIOPULMONARY: No chest pain or shortness of breath. Gastrointestinal: Denies abdominal pain, epigastric pain, or heartburn. Patient had a 5-6 episodes of vomiting yesterday, however reports one episode of vomiting through the night and none at this time. Denies any nausea at this time. No hematemesis, coffee-ground emesis. No rectal bleeding, or melena. GENITOURINARY: No dysuria or hematuria. MUSCULOSKELETAL: Reports normal range of motion. Joint pain. Patient had a recent fall at home 3 days ago with bruising and lower extremities. SKIN: No rashes. No jaundice. ENDOCRINE: No chills, fevers. No excessive weight gain or loss. No polydipsia or polyuria. PSYCHIATRIC: Unremarkable. NEUROLOGY: No change in mental status. Denies dizziness, headache. ENT: Vision unremarkable. CONSTITUTIONAL: No recent weight loss. No fever, chills, night sweats. Patient had a fall 3 days ago which brought her in. 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 Poly substance abuse 07/19/21 admitted for Acute delirium History of Any Multi-Drug Resistant Organisms: None Reported Past Surgical History: Cholecystectomy, Coronary Bypass/CABG, Hernia Repair, Orthopedic Surgery, Tonsillectomy, Tubal Ligation Additional Past Surgical History / Comment(s): LEFT KNEE ARTHROSCOPY, BMT AND MYRINGOPLASTY, umbilical hernia repair, CABG 2020 Past Anesthesia/Blood Transfusion Reactions: No Reported Reaction Additional Past Anesthesia/Blood Transfusion Reaction / Comm: STATES AFTER LAST EAR SX (11/2013) HAD SORE MUSCLES AND WAS WEAK FOR 3-4 DAYS Past Psychological History: Unable to Obtain Smoking Status: Former smoker Past Alcohol Use History: None Reported Additional Past Alcohol Use History / Comment(s): SMOKED 1PPD , SMOKED 10 YEARS . QUIT SMOKING 20 YRS AGO OR MORE. Past Drug Use History: Marijuana, Methamphetamine Additional Drug Use History / Comment(s): MEDICAL CARD. Patient admitted 07/16/21 positive for methamphetamines; amphetamines; benzos; opiates; and marijuana - Past Family History Sister(s) Family Medical History: Cancer Brother(s) Family Medical History: Cancer Additional Family Medical History / Comment(s): brother had heart valve replacement Mother Family Medical History: Chest Pain / Angina, Diabetes Mellitus, Hypertension Father History Unknown: Yes Medications and Allergies Home Medications Medication Instructions Recorded Confirmed Type traMADol HCl [Ultram] 100 mg PO BID PRN 11/04/15 09/07/22 History Baclofen 10 mg PO TID PRN 09/14/16 09/07/22 History Metoprolol Tartrate [Lopressor] 50 mg PO BID #60 tab 10/15/21 09/07/22 Rx Losartan [Cozaar] 25 mg PO DIRECTED 11/26/21 09/07/22 History Aspirin EC [Ecotrin Low Dose] 81 mg PO DIRECTED 01/13/22 09/07/22 History Atorvastatin [Lipitor] 40 mg PO DIRECTED 01/13/22 09/07/22 History Pramipexole [Mirapex] 1 mg PO DIRECTED 05/26/22 09/07/22 History sitaGLIPtin [Januvia] 100 mg PO DIRECTED 05/26/22 09/07/22 History Clopidogrel [Plavix] 75 mg PO DIRECTED 09/07/22 09/07/22 History Diltiazem Cd [Cardizem CD] 120 mg PO DIRECTED 09/07/22 09/07/22 History Docusate [Colace] 100 mg PO DIRECTED 09/07/22 09/07/22 History Ergocalciferol (Vitamin D2) 1,250 mcg PO Q7D 09/07/22 09/07/22 History [Drisdol (50,000 Iu)] Ibuprofen [Motrin] 800 mg PO Q8H PRN 09/07/22 09/07/22 History Insulin Detemir (Levemir) [Levemir] 10 unit SQ DAILY 09/07/22 09/07/22 History Spironolactone [Aldactone] 25 mg PO DIRECTED 09/07/22 09/07/22 History glipiZIDE [Glucotrol] 5 mg PO TID 09/07/22 09/07/22 History Allergies Allergy/AdvReac Type Severity Reaction Status Date / Time cephalexin Allergy Anaphylaxis Verified 09/07/22 20:22 cephalexin monohydrate Allergy Anaphylaxis Verified 09/07/22 20:22 [From Keflex] Sulfa (Sulfonamide Allergy Rash/Hives Verified 09/07/22 20:22 Antibiotics) Physical Exam Vitals: Vital Signs Temp Pulse Resp BP Pulse Ox 09/09/22 02:21 98.3 F 87 16 113/70 95 09/08/22 19:12 98.8 F 112 H 18 113/78 95 09/08/22 15:40 121 H 115/75 97 09/08/22 14:38 98.3 F 72 16 97/57 96 09/08/22 14:00 16 09/08/22 08:00 16 09/08/22 07:40 98.1 F 113 H 16 159/75 97 Intake and Output 09/08/22 09/08/22 09/09/22 14:59 22:59 06:59 Intake Total 236 200 Output Total 6 Balance 236 194 Intake: Oral 236 200 Output: Emesis 6 Other: Voiding Method Toilet Toilet Toilet # Voids 2 1 # Bowel Movements 2 General appearance: The patient is alert, oriented, appears in no acute distress. HET: Head is normocephalic and atraumatic. Conjunctiva pink. Sclera anicteric. Neck: Supple without lymphadenopathy. Trachea midline. Heart: S1 S2. Regular rate and rhythm. Lungs: Clear to auscultation. Abdomen: Soft, nontender, nondistended with bowel sounds. No guarding or rigidity. Skin: No rashes. No jaundice. Extremities: Normal skin color and turgor. Bilateral lower extremity swelling with Guy wrap present Neurological: No focal deficits. Alert and oriented x3. Results CBC & Chem 7: 09/08/22 18:26 09/09/22 04:56 Labs: Abnormal Lab Results - Last 24 Hours (Table) 09/08/22 09/08/22 09/08/22 Range/Units 18:26 18:26 22:23 MCV 78.8 L (80.0-100.0) fL MCH 24.8 L (25.0-35.0) pg RDW 16.2 H (11.5-15.5) % Sodium 136 L (137-145) mmol/L Potassium 3.3 L 3.4 L (3.5-5.1) mmol/L BUN 19 H (7-17) mg/dL Glucose 184 H (74-99) mg/dL Assessment and Plan (1) Nausea and vomiting Narrative/Plan: 2-year-old female who presented to the hospital after sustaining a fall at home with no significant injuries noted to CT of the head and neck. Apparently yesterday patient had multiple episodes of vomiting, nonbloody followed by diarrhea. Patient did come and positive for polysubstance abuse including methamphetamine, marijuana and benzodiazepines. Nausea and vomiting as well as diarrhea could be related to withdrawal symptoms. Unclear etiology at this time. Nausea and vomiting has resolved however patient has continued diarrhea. Will collect stools studies including C. diff. If C. diff is negative may treat with Imodium as needed. Protonix added continue symptomatic treatment with antiemetics. No plans on endoscopic evaluation. Current Visit: Yes Status: Acute Code(s): R11.2 - NAUSEA WITH VOMITING, UNSPECIFIED SNOMED Code(s): 05560831 (2) Hypokalemia Current Visit: Yes Status: Acute Code(s): E87.6 - HYPOKALEMIA SNOMED Code(s): 17092162 (3) History of recent fall Current Visit: Yes Status: Acute Code(s): Z91.81 - HISTORY OF FALLING SNOMED Code(s): 487234089 (4) History of coronary artery disease Current Visit: Yes Status: Acute Code(s): Z86.79 - PERSONAL HISTORY OF OTHER DISEASES OF THE CIRCULATORY SYSTEM SNOMED Code(s): 510441360 (5) Diabetes mellitus Current Visit: Yes Status: Acute Code(s): E11.9 - TYPE 2 DIABETES MELLITUS WITHOUT COMPLICATIONS SNOMED Code(s): 44457262 (6) Methamphetamine abuse Current Visit: Yes Status: Acute Code(s): F15.10 - OTHER STIMULANT ABUSE, UNCOMPLICATED SNOMED Code(s): 250585645 (7) Marijuana abuse Current Visit: Yes Status: Acute Code(s): F12.10 - CANNABIS ABUSE, UNCOMPLICATED SNOMED Code(s): 63564949 Plan: 1. Continue symptomatic supportive care 2. Protonix 40 mg daily 3. Antiemetics as needed 4. Stool cultures and C. diff is ordered 5. If C. diff is negative may start Imodium as needed 6. Methamphetamine, marijuana, benzodiazepine abstinence. Patient's symptoms may be related to withdrawal symptoms. 7. No plans on endoscopic evaluation Thank you for allowing us to participate in the care of the patient, the GI service will sign off, gastroenterology will not be available at the hospital this weekend and through next week. If further evaluation by gastroenterology is required the patient will need transfer as per the primary team's discretion. Dr. Heike Mahoney I agree with the dictator's note, documented as a scribe by Casandra Hand.
--- NOTE | 2022-09-09 08:40 | US ---
EXAMINATION TYPE: US abdomen complete DATE OF EXAM: 09/09/2022 COMPARISON: NONE CLINICAL HISTORY: vomiting. vomited yesterday, cholecystectomy TECHNIQUE: Multiple sonographic images of the abdomen are obtained. FINDINGS: EXAM MEASUREMENTS: Liver Length: 20.7 cm Gallbladder Wall: Surgically absent CBD: 0.8 cm Spleen: 13.5 cm Right Kidney: 11.8 x 4.7 x 6.0 cm Left Kidney: 11.2 x 5.3 x 6.3 cm Pancreas: wnl Liver: enlarged nodular appearance Gallbladder: Surgically absent Evidence for sonographic Mix's sign: no CBD: wnl Spleen: enlarged Right Kidney: wnl Left Kidney: 1.6 x 1.4 x 1.4cm Upper IVC: wnl Abd Aorta: wnl The liver is homogenous. The intrahepatic portion of the IVC and proximal abdominal aorta are within normal limits. Common bile duct is unremarkable. The visualized portions of the pancreas are bonnie ogenous. Kidneys are symmetric and free of hydronephrosis. No renal lesions are seen. IMPRESSION: Mild splenomegaly noted.
[2022-09-09] MEDS ORDERED: ENOXAPARIN 40 MG/0.4 ML SYRINGE SQ SCH (09:00)
[2022-09-09] MEDS ORDERED: ERGOCALCIFEROL 1,250 MCG (50,000 IU) CAPSULE PO SCH (09:00)
[2022-09-09] MEDS ORDERED: PANTOPRAZOLE 40 MG/10 ML VIAL IVP SCH (09:00)
[2022-09-09] MEDS: LOSARTAN 25 MG TAB PO SCH (09:38)
[2022-09-09] MEDS: METOPROLOL TARTRATE 50 MG TAB PO SCH (09:38)
[2022-09-09] MEDS: CLOPIDOGREL 75 MG TAB PO SCH (09:38)
[2022-09-09] MEDS: SPIRONOLACTONE 25 MG TAB PO SCH (09:38)
[2022-09-09] MEDS: PRAMIPEXOLE 1 MG TAB PO SCH (09:38)
[2022-09-09] MEDS: ASPIRIN 81 MG PO SCH (09:38)
[2022-09-09] MEDS: DILTIAZEM CD 120 MG CAP.ER.24H PO SCH (09:39)
[2022-09-09] MEDS: NYSTATIN 100,000 UNIT/GM OINT 30 GM TUBE TOPICAL SCH (09:39)
[2022-09-09] MEDS: LINAGLIPTIN 5 MG TABLET PO SCH (09:39)
[2022-09-09] MEDS: traMADol 50 MG TAB PO PRN (09:47)
[2022-09-09 10:37] LABS: Basophils # (A) 0.04 X 10*3/uL (0.00-0.10); Basophils % (A) 0.7 %; Eosinophils # (A) 0.35 X 10*3/uL (0.04-0.35); Eosinophils % (A) 6.1 %; HCT 35.4 % (37.2-46.3); HGB 10.6 g/dL (12.0-15.0); Immature Grans, Automated 0.2 %; Lymphocytes # (A) 1.91 X 10*3/uL (0.90-5.00); Lymphocytes % (A) 33.3 %; MCH 24.1 pg (27.0-32.0); MCHC 29.9 g/dL (32.0-37.0); MCV 80.6 fL (80.0-97.0); Mean Platelet Volume 10.6 fL (9.5-12.2); Monocytes # (A) 0.59 X 10*3/uL (0.20-1.00); Monocytes % (A) 10.3 %; NRBC Per 100 WBC 0 /100 WBCS (0.0-0.0); Neutrophils # (A) 2.83 X 10*3/uL (1.80-7.70); Neutrophils % (A) 49.4 %; Platelet Count 313 X 10*3/uL (140-440); RBC 4.39 X 10*6/uL (4.10-5.20); RDW 16.3 % (11.5-14.5); WBC 5.73 X 10*3/uL (4.50-10.00)
[2022-09-09 11:05] LABS: African American GFR (CKD) 105.5 (60.0-200.0); Albumin 3.3 g/dL (3.8-4.9); Albumin/Globulin Ratio 1.22 (1.60-3.17); Anion Gap 11.3 mmol/L (10.00-18.00); BUN/Creat Ratio 22.17 Ratio (12.00-20.00); Blood Urea Nitrogen 13.3 mg/dL (9.0-27.0); C Reactive Protein 6.9 mg/dL (0.00-0.80); Calcium 8.5 mg/dL (8.7-10.3); Carbon Dioxide 23.7 mmol/L (20.0-27.5); Globulin 2.7 g/dL (1.6-3.3); Non-African American GFR(CKD) 91.1 (60.0-200.0); Potassium 4.2 mmol/L (3.5-5.5); Total Bilirubin 0.3 mg/dL (0.30-1.20)
[2022-09-09 15:18] VITALS: BP 111/69; PULSE 80; RESP 18; TEMP 98
[2022-09-09] MEDS ORDERED: BACLOFEN 10 MG TAB PO SCH (21:00)
--- NOTE | 2022-09-10 07:00 | P.DS ---
Providers Date of admission: 09/07/22 21:39 Expected date of discharge: 09/09/22 Attending physician: Surinder Rodríguez Consults: 09/08/22 15:43 Consult Physician Routine Consulting Provider: Christiane Mahoney Consult Reason/Comments: vomiting Do you want consulting provider notified?: Yes 09/08/22 17:47 Consult Physician Routine Consulting Provider: Lamonte Polanco Consult Reason/Comments: Bilateral lower extremity cellulitis Do you want consulting provider notified?: Yes Primary care physician: Surinder Rodríguez [facility] Course: Final diagnosis Mental status changes, possible metabolic encephalopathy, improved Fall, with multiple injuries to the left side of the face and the left foot Bilateral lower extremity cellulitis, ruled out Elevated D-Dimer, no evidence of PE on CTA History of hypertension History of hyperlipidemia History of insulin-dependent diabetes mellitus History of degenerative disc disease with chronic back pain History of restless leg syndrome Right thyroid nodules will defer thyroid ultrasound to the outpatient setting Discharge disposition Patient is being discharged in a stable condition with guarded prognosis to home. Patient will follow-up with Dr. Rodríguez in the outpatient setting upon discharge. Patient is to follow up outpatient for thyroid ultrasound. Total time taken is greater than 35 minutes. Hospital course This is a 72-year-old female who was recently admitted with altered mental status and falls with concerns of possible lower extremity cellulitis. Patient was seen and evaluated by ID and no further need for antibiotics and to continue with guy wraps and elevating lower extremities while at rest. Patient mentation is improved and is adamant about going home today. Patient lives with grandson per case management and will be returning home. Refusing any form of rehab. Currently no reports of chest pain, shortness of breath, or palpitations. Patient is afebrile. No reports of nausea or vomiting and patient is tolerating diet. Patient will be discharged home today. Guarded prognosis. Physical exam: Gen: This is a 72 year old female who is awake, alert and oriented x3 well developed, well nourished HEENT: Head is atraumatic, normocephalic. Pupils equal, round. Sclerae is anicteric. NECK: Supple. No JVD. No lymphadenopathy. No thyromegaly. LUNGS: Clear to auscultation. No wheezes or rhonchi. No intercostal retractions. HEART: Regular rate and rhythm. No murmur. ABDOMEN: Soft. Bowel sounds are present. No masses. No tenderness. EXTREMITIES: No pedal edema. No calf tenderness. No open wounds or drainage or redness noted to the bilateral lower extremities. NEUROLOGICAL: Patient is awake, alert and oriented x3. Cranial nerves 2 through 12 are grossly intact. Please refer to medication reconciliation sheet for a list of medications. The impression and plan of care has been dictated by Marlene Gonzalez, Nurse Practitioner as directed. Dr. Carlos MD I have performed a history and examination and MDM of this patient, discussed the same with the dictator, and agree with the dictator's assessment and plan as written ,documented as a scribe. Based on total visit time, I have performed more than 50% of the visit. Patient Condition at Discharge: Stable Plan - Discharge Summary New Discharge Prescriptions: New Nystatin 100,000 Unit/gm Oint [Mycostatin Oint] 1 applic TOPICAL BID 7 Days #1 each Continue traMADol HCl [Ultram] 100 mg PO BID PRN PRN Reason: Pain Baclofen 10 mg PO TID PRN PRN Reason: Muscle Pain sitaGLIPtin [Januvia] 100 mg PO DIRECTED Ergocalciferol (Vitamin D2) [Drisdol (50,000 Iu)] 1,250 mcg PO Q7D Spironolactone [Aldactone] 25 mg PO DIRECTED Metoprolol Tartrate [Lopressor] 50 mg PO BID #60 tab Losartan [Cozaar] 25 mg PO DIRECTED Aspirin EC [Ecotrin Low Dose] 81 mg PO DIRECTED Atorvastatin [Lipitor] 40 mg PO DIRECTED Pramipexole [Mirapex] 1 mg PO DIRECTED Insulin Detemir (Levemir) [Levemir] 10 unit SQ DAILY Docusate [Colace] 100 mg PO DIRECTED Clopidogrel [Plavix] 75 mg PO DIRECTED Ibuprofen [Motrin] 800 mg PO Q8H PRN PRN Reason: Pain Or Fever > 100.5 Discontinued Diltiazem Cd [Cardizem CD] 120 mg PO DIRECTED glipiZIDE [Glucotrol] 5 mg PO TID Discharge Medication List traMADol HCl [Ultram] 100 mg PO BID PRN 11/04/15 [History] Baclofen 10 mg PO TID PRN 09/14/16 [History] Metoprolol Tartrate [Lopressor] 50 mg PO BID #60 tab 10/15/21 [Rx] Losartan [Cozaar] 25 mg PO DIRECTED 11/26/21 [History] Aspirin EC [Ecotrin Low Dose] 81 mg PO DIRECTED 01/13/22 [History] Atorvastatin [Lipitor] 40 mg PO DIRECTED 01/13/22 [History] Pramipexole [Mirapex] 1 mg PO DIRECTED 05/26/22 [History] sitaGLIPtin [Januvia] 100 mg PO DIRECTED 05/26/22 [History] Clopidogrel [Plavix] 75 mg PO DIRECTED 09/07/22 [History] Docusate [Colace] 100 mg PO DIRECTED 09/07/22 [History] Ergocalciferol (Vitamin D2) [Drisdol (50,000 Iu)] 1,250 mcg PO Q7D 09/07/22 [History] Ibuprofen [Motrin] 800 mg PO Q8H PRN 09/07/22 [History] Insulin Detemir (Levemir) [Levemir] 10 unit SQ DAILY 09/07/22 [History] Spironolactone [Aldactone] 25 mg PO DIRECTED 09/07/22 [History] Nystatin 100,000 Unit/gm Oint [Mycostatin Oint] 1 applic TOPICAL BID 7 Days #1 each 09/09/22 [Rx] Follow up Appointment(s)/Referral(s): Surinder Rodríguez MD [Primary Care Provider] - 1-2 days Patient Instructions/Handouts: Failure to Thrive (DC), Cannabis Abuse (DC), Methamphetamine Abuse (DC) Activity/Diet/Wound Care/Special Instructions: Activity Limited until follow-up Follow-up with primary care provider on discharge Follow-up with cardiology outpatient Note the changes in medications Recommend continue monitoring Accu-Cheks and keep a diary of all readings for primary care follow-up Continue to use Guy wraps to bilateral lower extremities when some swelling is noted from the toes up to the knees and elevate lower extremities while at rest Discharge Disposition: HOME SELF-CARE
--- NOTE | 2022-09-16 15:05 | P.PN ---
Subjective Progress Note Date: 09/09/22 Principal diagnosis: Cellulitis Patient is a 72-year-old female presenting to the ER last evening after apparently the patient did have a fall fall happened the day before presentation to the hospital and the patient was complaining of left-sided facial pain patient also stubbed her left foot and did have significant bruising to the left second and third toe but no open wound or any drainage , and some swelling of the left leg and a question of possible cellulitis. On today's evaluation that is 09/09/2022, the patient denies having any fever or rigors, the patient is breathing comfortably for chest pain shortness of breath or cough no nausea no vomiting no abdominal pain she still has some swelling to the left lower extremity overall pain has decreased in intensity, no open wound or any drainage Objective - Vital Signs Vital signs: Vital Signs Temp 98.5 F 09/09/22 07:30 Pulse 79 09/09/22 07:30 Resp 16 09/09/22 08:00 BP 110/67 09/09/22 07:30 Pulse Ox 95 09/09/22 07:30 FiO2 Intake & Output 09/08/22 09/09/22 09/09/22 18:59 06:59 18:59 Intake Total 236 200 118 Output Total 6 Balance 230 200 118 Intake: Oral 236 200 118 Output: Emesis 6 Other: Voiding Method Toilet Toilet Toilet # Voids 2 1 # Bowel Movements 2 - Exam GENERAL DESCRIPTION: An elderly female lying in bed in no distress RESPIRATORY SYSTEM: Unlabored breathing , decreased breath sounds at bases HEART: S1 S2 regular rate and rhythm , ABDOMEN: Soft , no tenderness EXTREMITIES: Left lower extremity swelling no redness bruising to the toe no wound or drainage - Labs CBC & Chem 7: 09/09/22 04:56 09/09/22 04:56 Labs: Abnormal Lab Results - Last 24 Hours (Table) 09/08/22 09/08/22 09/08/22 Range/Units 18:26 18:26 22:23 Hgb (12.0-15.0) g/dL Hct (37.2-46.3) % MCV 78.8 L (80.0-100.0) fL MCH 24.8 L (25.0-35.0) pg MCHC (32.0-37.0) g/dL RDW 16.2 H (11.5-15.5) % Sodium 136 L (137-145) mmol/L Potassium 3.3 L 3.4 L (3.5-5.1) mmol/L BUN 19 H (7-17) mg/dL BUN/Creatinine Ratio (12.00-20.00) Ratio Glucose 184 H (74-99) mg/dL POC Glucose (mg/dL) (70-110) mg/dL Calcium (8.7-10.3) mg/dL C-Reactive Protein (0.00-0.80) mg/dL Total Protein (6.2-8.2) g/dL Albumin (3.8-4.9) g/dL Albumin/Globulin Ratio (1.60-3.17) g/dL 09/09/22 09/09/22 09/09/22 Range/Units 04:56 04:56 06:43 Hgb 10.6 L (12.0-15.0) g/dL Hct 35.4 L (37.2-46.3) % MCV (80.0-100.0) fL MCH 24.1 L (25.0-35.0) pg MCHC 29.9 L (32.0-37.0) g/dL RDW 16.3 H (11.5-15.5) % Sodium (137-145) mmol/L Potassium (3.5-5.1) mmol/L BUN (7-17) mg/dL BUN/Creatinine Ratio 22.17 H (12.00-20.00) Ratio Glucose 146 H (74-99) mg/dL POC Glucose (mg/dL) 158 H (70-110) mg/dL Calcium 8.5 L (8.7-10.3) mg/dL C-Reactive Protein 6.90 H (0.00-0.80) mg/dL Total Protein 6.0 L (6.2-8.2) g/dL Albumin 3.3 L (3.8-4.9) g/dL Albumin/Globulin Ratio 1.22 L (1.60-3.17) g/dL Assessment and Plan (1) Left leg swelling Status: Acute Code(s): M79.89 - OTHER SPECIFIED SOFT TISSUE DISORDERS SNOMED Code(s): 109188530 Plan: 1patient presented to hospital with weakness and fall in this patient also stubbed her left foot with bruising to the left second and third toe and some swelling to the left foot more likely due to the trauma clinically not behaving as cellulitis in this patient with no fever or elevated white count 2patient has been advised compression dressing to keep some of the swelling down 3no need for systemic antibiotic on discharge discussed with the admitting team working on discharge Time with Patient: Less than 30
== END 2022-09-09 16:22 | disposition home or self-care (01) ==
LOC: EC 15:35 → 6NMEDSUR 21:39
PROVIDERS: ADMIT Internal Medicine; ATTEND Internal Medicine
DX: R41.82 Altered mental status, unspecified (principal); S00.83XA Contusion of other part of head, initial encounter; R79.89 Other specified abnormal findings of blood chemistry; R22.43 Localized swelling, mass and lump, lower limb, bilateral; R62.7 Adult failure to thrive; E04.2 Nontoxic multinodular goiter; R51.9 Headache, unspecified; M71.21 Synovial cyst of popliteal space [Baker], right knee; G89.29 Other chronic pain; M54.9 Dorsalgia, unspecified; F15.10 Other stimulant abuse, uncomplicated; K57.30 Diverticulosis of large intestine without perforation or abscess without bleeding; E11.9 Type 2 diabetes mellitus without complications; I11.0 Hypertensive heart disease with heart failure; I50.9 Heart failure, unspecified; I25.10 Atherosclerotic heart disease of native coronary artery without angina pectoris; E78.5 Hyperlipidemia, unspecified; J45.909 Unspecified asthma, uncomplicated; M79.7 Fibromyalgia; G47.30 Sleep apnea, unspecified; M50.30 Other cervical disc degeneration, unspecified cervical region; M46.00 Spinal enthesopathy, site unspecified; G25.81 Restless legs syndrome; R29.6 Repeated falls; M47.9 Spondylosis, unspecified; E66.9 Obesity, unspecified; Z68.27 Body mass index [BMI] 27.0-27.9, adult; W19.XXXA Unspecified fall, initial encounter; Y92.009 Unspecified place in unspecified non-institutional (private) residence as the place of occurrence of the external cause; Z79.84 Long term (current) use of oral hypoglycemic drugs; Z79.02 Long term (current) use of antithrombotics/antiplatelets; Z79.82 Long term (current) use of aspirin; Z79.4 Long term (current) use of insulin; Z79.899 Other long term (current) drug therapy; Z88.1 Allergy status to other antibiotic agents; Z88.2 Allergy status to sulfonamides; Z87.891 Personal history of nicotine dependence; Z86.61 Personal history of infections of the central nervous system; Z90.49 Acquired absence of other specified parts of digestive tract; Z95.1 Presence of aortocoronary bypass graft; Z98.51 Tubal ligation status; Z98.890 Other specified postprocedural states; Z87.898 Personal history of other specified conditions; Z86.010 Personal history of colon polyps; Z87.19 Personal history of other diseases of the digestive system; Z80.9 Family history of malignant neoplasm, unspecified; Z83.3 Family history of diabetes mellitus; Z82.49 Family history of ischemic heart disease and other diseases of the circulatory system
CPT/HCPCS: 96365; 96372; 96375 ×2; 96361; 99291; 36415; 97162; 97166; 85379; 80053 ×3; 82140; 83605; 83690; 84132 ×2; 84484; 85025 ×3; 85610; 85730; 86140; 81001; 87324; 80306; 73630; 71046; 76700; 93970; 72125; 70450; 71275; G0378 ×2; J2405; J1650; C9113; Q9967

== ENCOUNTER 2022-09-23 00:07 | Emergency (ER) | payer MEDICARE, OTHER ==
--- NOTE | 2022-09-23 01:59 | ED ---
Back Pain HPI - General Chief Complaint: Back Pain/Injury Stated Complaint: Back Pain Time Seen by Provider: 09/23/22 01:55 Source: patient, RN notes reviewed, old records reviewed Limitations: no limitations - History of Present Illness Initial Comments: This is a 72-year-old female to the emergency department for evaluation presents today for evaluation regarding severe back pain back pain causing Alana sutured. Patient having difficulty sleeping think she may have urinary tract infection no, no other complaints. Patient will see her primary care tomorrow for definitive relief and refill patient is no travel history sick contacts MD Complaint: back pain, other (Restless legs) -: days(s) (2) Place: home Radiation: none Severity: moderate Severity scale (1-10): 7 Quality: sharp Consistency: intermittent Improves With: none Worsens With: none Context: while lifting, turning/twisting Associated Symptoms: denies other symptoms Treatments Prior to Arrival: other (0) - Related Data Home Medications Medication Instructions Recorded Confirmed traMADol HCl [Ultram] 100 mg PO BID PRN 11/04/15 09/07/22 Baclofen 10 mg PO TID PRN 09/14/16 09/07/22 Losartan [Cozaar] 25 mg PO DIRECTED 11/26/21 09/07/22 Aspirin EC [Ecotrin Low Dose] 81 mg PO DIRECTED 01/13/22 09/07/22 Atorvastatin [Lipitor] 40 mg PO DIRECTED 01/13/22 09/07/22 Pramipexole [Mirapex] 1 mg PO DIRECTED 05/26/22 09/07/22 sitaGLIPtin [Januvia] 100 mg PO DIRECTED 05/26/22 09/07/22 Clopidogrel [Plavix] 75 mg PO DIRECTED 09/07/22 09/07/22 Docusate [Colace] 100 mg PO DIRECTED 09/07/22 09/07/22 Ergocalciferol (Vitamin D2) 1,250 mcg PO Q7D 09/07/22 09/07/22 [Drisdol (50,000 Iu)] Ibuprofen [Motrin] 800 mg PO Q8H PRN 09/07/22 09/07/22 Insulin Detemir (Levemir) [Levemir] 10 unit SQ DAILY 09/07/22 09/07/22 Spironolactone [Aldactone] 25 mg PO DIRECTED 09/07/22 09/07/22 Previous Rx's Medication Instructions Recorded Metoprolol Tartrate [Lopressor] 50 mg PO BID #60 tab 10/15/21 Nystatin 100,000 Unit/gm Oint 1 applic TOPICAL BID 7 Days #1 each 09/09/22 [Mycostatin Oint] Allergies Allergy/AdvReac Type Severity Reaction Status Date / Time cephalexin Allergy Anaphylaxis Verified 09/23/22 00:58 cephalexin monohydrate Allergy Anaphylaxis Verified 09/23/22 00:58 [From Keflex] Sulfa (Sulfonamide Allergy Rash/Hives Verified 09/23/22 00:58 Antibiotics) Review of Systems ROS Statement: Those systems with pertinent positive or pertinent negative responses have been documented in the HPI. ROS Other: All systems not noted in ROS Statement are negative. 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 Poly substance abuse 07/19/21 admitted for Acute delirium History of Any Multi-Drug Resistant Organisms: None Reported Past Surgical History: Cholecystectomy, Coronary Bypass/CABG, Hernia Repair, Orthopedic Surgery, Tonsillectomy, Tubal Ligation Additional Past Surgical History / Comment(s): LEFT KNEE ARTHROSCOPY, BMT AND MYRINGOPLASTY, umbilical hernia repair, CABG 2020 Past Anesthesia/Blood Transfusion Reactions: No Reported Reaction Additional Past Anesthesia/Blood Transfusion Reaction / Comment(s): STATES AFTER LAST EAR SX (11/2013) HAD SORE MUSCLES AND WAS WEAK FOR 3-4 DAYS Past Psychological History: Unable to Obtain Smoking Status: Former smoker Past Alcohol Use History: None Reported Past Drug Use History: Marijuana, Methamphetamine - Past Family History Sister(s) Family Medical History: Cancer Brother(s) Family Medical History: Cancer Additional Family Medical History / Comment(s): brother had heart valve replacement Mother Family Medical History: Chest Pain / Angina, Diabetes Mellitus, Hypertension Father History Unknown: Yes General Exam General appearance: alert, in no apparent distress Head exam: Present: atraumatic, normocephalic, normal inspection Eye exam: Present: normal appearance, PERRL, EOMI. Absent: scleral icterus, conjunctival injection, periorbital swelling ENT exam: Present: normal exam, mucous membranes moist Neck exam: Present: normal inspection. Absent: tenderness, meningismus, lymphadenopathy Respiratory exam: Present: normal lung sounds bilaterally. Absent: respiratory distress, wheezes, rales, rhonchi, stridor Cardiovascular Exam: Present: regular rate, normal rhythm, normal heart sounds. Absent: systolic murmur, diastolic murmur, rubs, gallop, clicks GI/Abdominal exam: Present: soft, normal bowel sounds. Absent: distended, tenderness, guarding, rebound, rigid Extremities exam: Present: normal inspection, full ROM, normal capillary refill. Absent: tenderness, pedal edema, joint swelling, calf tenderness Back exam: Present: normal inspection Neurological exam: Present: alert, oriented X3, CN II-XII intact Psychiatric exam: Present: normal affect, normal mood Skin exam: Present: warm, dry, intact, normal color. Absent: rash Course Vital Signs 09/23/22 00:53 Temperature 98.0 F Pulse Rate 85 Respiratory 16 Rate Blood Pressure 108/69 O2 Sat by Pulse 98 Oximetry - Reevaluation(s) Reevaluation #1: 09/23/22 02:52 Medical record is reviewed Reevaluation #2: 09/23/22 02:52 Patient has improvement in symptoms here in the ER Reevaluation #3: 09/23/22 02:52 Patient informed results and questions answered Medical Decision Making - Medical Decision Making 72 female to the emergency department for evaluation patient is restless less likely related to back pain. Back pain resolved restless legs are improved patient able to ambulate be discharged home - Lab Data Lab Results 09/23/22 Range/Units 02:09 Urine Color Colorless Urine Appearance Clear (Clear) Urine pH 5.5 (5.0-8.0) Ur Specific [place] 1.004 (1.001-1.035) Urine Protein Negative (Negative) Urine Glucose (UA) Negative (Negative) Urine Ketones Negative (Negative) Urine Blood Negative (Negative) Urine Nitrite Negative (Negative) Urine Bilirubin Negative (Negative) Urine Urobilinogen <2.0 (<2.0) mg/dL Ur Leukocyte Esterase Negative (Negative) Disposition Clinical Impression: Mid back pain Disposition: HOME SELF-CARE Condition: Good Instructions (If sedation given, give patient instructions): Acute Low Back Pain (ED) Is patient prescribed a controlled substance at d/c from ED?: No Referrals: Surinder Rodríguez MD [Primary Care Provider] - 1-2 days Time of Disposition: 02:55
[2022-09-23] MEDS ORDERED: HYDROmorphone 1 MG/ML 1 ML SYRINGE IM STA (02:15)
[2022-09-23 02:17] LABS: Appearance,Urine Clear (Clear); Bilirubin,Urine Negative (Negative); Blood,Urine Negative (Negative); Color,Urine Colorless; Glucose,Urine (UA) Negative (Negative); Ketones,Urine Negative (Negative); Leukocyte Esterase,Urine Negative (Negative); Nitrite,Urine Negative (Negative); PH, Urine 5.5 (5.0-8.0); Protein,Urine Negative (Negative); Specific Gravity,Urine 1.004 (1.001-1.035); Urobilinogen,Urine <2.0 mg/dL (<2.0)
[2022-09-23] MEDS ORDERED: SODIUM CHLORIDE 0.9% 1,000 ML IV STA (02:40)
[2022-09-23] MEDS ORDERED: ONDANSETRON 4 MG/2 ML VIAL IVP STA (02:40)
[2022-09-23] MEDS ORDERED: diphenhydrAMINE 50 MG/ML 1 ML VIAL IVP STA (02:41)
[2022-09-23 03:39] VITALS: BP 110/57; PULSE 92; RESP 19; TEMP 98.4
== END 2022-09-23 03:39 | disposition home or self-care (01) ==
LOC: EC 00:07
DX: M54.9 Dorsalgia, unspecified (principal); J45.909 Unspecified asthma, uncomplicated; I25.10 Atherosclerotic heart disease of native coronary artery without angina pectoris; I11.0 Hypertensive heart disease with heart failure; I50.9 Heart failure, unspecified; E11.9 Type 2 diabetes mellitus without complications; M19.90 Unspecified osteoarthritis, unspecified site; E78.5 Hyperlipidemia, unspecified; Z87.891 Personal history of nicotine dependence; F12.90 Cannabis use, unspecified, uncomplicated; Z88.1 Allergy status to other antibiotic agents; Z88.2 Allergy status to sulfonamides; Z79.82 Long term (current) use of aspirin; Z79.899 Other long term (current) drug therapy; Z79.4 Long term (current) use of insulin
CPT/HCPCS: 81003; 99283; 96372; J1170

== ENCOUNTER 2022-10-25 18:49 | Inpatient (IN) | payer MEDICARE, OTHER ==
[2022-10-25 19:55] LABS: Anisocytosis Slight; Basophils # (A) 0.1 k/uL (0-0.2); Basophils % (A) 1 %; Eosinophils # (A) 0.4 k/uL (0-0.7); Eosinophils % (A) 5 %; HCT 34.2 % (34.0-46.0); HGB 11.2 gm/dL (11.4-16.0); Hypochromasia Marked; Lymphocytes % (A) 28 %; MCH 26.2 pg (25.0-35.0); MCHC 32.6 g/dL (31.0-37.0); MCV 80.3 fL (80.0-100.0); Mean Platelet Volume 8.6; Microcytosis Slight; Monocytes # (A) 0.4 k/uL (0-1.0); Monocytes % (A) 5 %; Neutrophils # (A) 4.1 k/uL (1.3-7.7); Neutrophils % (A) 59 %; Platelet Count 299 k/uL (150-450); RBC 4.27 m/uL (3.80-5.40); RDW 17.5 % (11.5-15.5); WBC 6.9 k/uL (3.8-10.6)
[2022-10-25 20:03] LABS: ALT 20 U/L (4-34); AST 21 U/L (14-36); African American GFR (CKD) >90 (>60 ml/min/1.73 sqM); Albumin 3.7 g/dL (3.5-5.0); Alkaline Phosphatase 90 U/L (38-126); Anion Gap 8 mmol/L; Blood Urea Nitrogen 9 mg/dL (7-17); Calcium 8.6 mg/dL (8.4-10.2); Carbon Dioxide 24 mmol/L (22-30); Chloride 108 mmol/L (98-107); Glucose 214 mg/dL (74-99); Magnesium 1.8 mg/dL (1.6-2.3); Non-African American GFR(CKD) >90 (>60 ml/min/1.73 sqM); Sodium 140 mmol/L (137-145); Total Bilirubin 0.2 mg/dL (0.2-1.3); Total Protein 6.5 g/dL (6.3-8.2)
[2022-10-25 20:05] LABS: INR 0.9 (<1.2); Prothrombin Time 10.1 sec (9.0-12.0)
[2022-10-25] MEDS ORDERED: ASPIRIN 81 MG PO STA (20:08)
--- NOTE | 2022-10-25 20:10 | ED ---
General Adult HPI - General Chief complaint: Chest Pain Stated complaint: chest pain Time Seen by Provider: 10/25/22 20:03 Source: patient, RN notes reviewed Mode of arrival: EMS Limitations: no limitations - History of Present Illness Initial comments: Patient is a pleasant 72-year-old female presenting to the emergency Department with chest discomfort. Onset of symptoms was prior to arrival however has resolved. Symptoms lasted several minutes. Patient had pressure in her chest with some radiation towards left jaw. Symptoms were somewhat similar to previous heart problems. Patient does have history of previous CABG. Patient did have some associated dyspnea and felt sweaty. No nausea. No leg pain or leg swelling. - Related Data Home Medications Medication Instructions Recorded Confirmed traMADol HCl [Ultram] 100 mg PO BID PRN 11/04/15 09/07/22 Baclofen 10 mg PO TID PRN 09/14/16 09/07/22 Losartan [Cozaar] 25 mg PO DIRECTED 11/26/21 09/07/22 Aspirin EC [Ecotrin Low Dose] 81 mg PO DIRECTED 01/13/22 09/07/22 Atorvastatin [Lipitor] 40 mg PO DIRECTED 01/13/22 09/07/22 Pramipexole [Mirapex] 1 mg PO DIRECTED 05/26/22 09/07/22 sitaGLIPtin [Januvia] 100 mg PO DIRECTED 05/26/22 09/07/22 Clopidogrel [Plavix] 75 mg PO DIRECTED 09/07/22 09/07/22 Docusate [Colace] 100 mg PO DIRECTED 09/07/22 09/07/22 Ergocalciferol (Vitamin D2) 1,250 mcg PO Q7D 09/07/22 09/07/22 [Drisdol (50,000 Iu)] Ibuprofen [Motrin] 800 mg PO Q8H PRN 09/07/22 09/07/22 Insulin Detemir (Levemir) [Levemir] 10 unit SQ DAILY 09/07/22 09/07/22 Spironolactone [Aldactone] 25 mg PO DIRECTED 09/07/22 09/07/22 Previous Rx's Medication Instructions Recorded Metoprolol Tartrate [Lopressor] 50 mg PO BID #60 tab 10/15/21 Nystatin 100,000 Unit/gm Oint 1 applic TOPICAL BID 7 Days #1 each 09/09/22 [Mycostatin Oint] Allergies Allergy/AdvReac Type Severity Reaction Status Date / Time cephalexin Allergy Anaphylaxis Verified 10/25/22 19:05 cephalexin monohydrate Allergy Anaphylaxis Verified 10/25/22 19:05 [From Keflex] Sulfa (Sulfonamide Allergy Rash/Hives Verified 10/25/22 19:05 Antibiotics) Review of Systems ROS Statement: Those systems with pertinent positive or pertinent negative responses have been documented in the HPI. ROS Other: All systems not noted in ROS Statement are negative. Constitutional: Denies: fever Eyes: Denies: eye pain ENT: Denies: ear pain Respiratory: Reports: as per HPI. Denies: cough Cardiovascular: Reports: as per HPI, chest pain Endocrine: Denies: fatigue Gastrointestinal: Denies: abdominal pain Genitourinary: Denies: dysuria Musculoskeletal: Denies: back pain Skin: Denies: rash Neurological: Denies: weakness Past Medical History Past Medical History: Asthma, Coronary Artery Disease (CAD), Heart Failure, COPD, Diabetes Mellitus, Fibromyalgia, Hyperlipidemia, Hypertension, Musculoskeletal Disorder, Osteoarthritis (OA), Sleep Apnea/CPAP/BIPAP Additional Past Medical History / Comment(s): TESTED POSITIVE FOR LUPUS (STATES NO SYMPTOMS), DOES NOT USE CPAP, SEASONAL ALLERGIES, STATES 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 Poly substance abuse 07/19/21 admitted for Acute delirium History of Any Multi-Drug Resistant Organisms: None Reported Past Surgical History: Cholecystectomy, Coronary Bypass/CABG, Hernia Repair, Orthopedic Surgery, Tonsillectomy, Tubal Ligation Additional Past Surgical History / Comment(s): LEFT KNEE ARTHROSCOPY, BMT AND MYRINGOPLASTY, umbilical hernia repair, CABG 2020 Past Anesthesia/Blood Transfusion Reactions: No Reported Reaction Additional Past Anesthesia/Blood Transfusion Reaction / Comment(s): STATES AFTER LAST EAR SX (11/2013) HAD SORE MUSCLES AND WAS WEAK FOR 3-4 DAYS Past Psychological History: Unable to Obtain Smoking Status: Former smoker Past Alcohol Use History: None Reported Past Drug Use History: Marijuana, Methamphetamine - Past Family History Sister(s) Family Medical History: Cancer Brother(s) Family Medical History: Cancer Additional Family Medical History / Comment(s): brother had heart valve replacement Mother Family Medical History: Chest Pain / Angina, Diabetes Mellitus, Hypertension Father History Unknown: Yes General Exam Limitations: no limitations General appearance: alert, in no apparent distress Head exam: Present: normocephalic Eye exam: Present: normal appearance Neck exam: Present: normal inspection Respiratory exam: Present: normal lung sounds bilaterally. Absent: chest wall tenderness Cardiovascular Exam: Present: regular rate, normal rhythm Expanded Peripheral pulses: 2+: Radial (R), Radial (L), Posterior Tibialis (R), Posterior Tibialis (L) GI/Abdominal exam: Present: soft. Absent: tenderness Extremities exam: Present: normal inspection. Absent: pedal edema, calf ten derness Neurological exam: Present: alert Psychiatric exam: Present: normal affect, normal mood Skin exam: Present: normal color Course Vital Signs 10/25/22 19:00 Temperature 98.1 F Pulse Rate 86 Respiratory 18 Rate Blood Pressure 97/60 O2 Sat by Pulse 96 Oximetry EKG Findings - EKG Results: EKG: interpreted by [facility] ([place]: Left. Normal QRS. Nonspecific ST-T. Significant artifact secondary to motion), sinus rhythm Medical Decision Making - Medical Decision Making Patient reevaluated and updated. Case discussed with practitioner Lilian, covering with Dr. Mendes, who will admit covering for Dr. Rodríguez Was pt. sent in by a medical professional or institution? @ -n Did you speak to anyone other than the patient for history? @ -n Did you review nursing and triage notes? @ -yes, agree Were old charts reviewed? @ -n Differential Diagnosis? @ -Differential Chest Pain: Stable Angina, Unstable Angina, STEMI, NSTEMI Aortic Dissection, Pneumothorax, Musculoskeletal, Esophageal Spasm GERD, Cholecystitis, Pancreatitis, Zoster, this is not meant to be an all-inclusive list. EKG interpreted by me (3pts min.)? @ -y X-rays interpreted by me (1pt min.)? @ -y CT interpreted by me (1pt min.)? @ -[none] U/S interpreted by me (1pt. min.)? @ -[none] What testing was considered but not performed? (CT, X-rays, U/S, labs)? Why? @ Computed tomography scan will be ordered secondary to borderline d-dimer What meds were considered but not given? Why? @ -[none] Did you discuss the management of the patient with other professionals? @ -Discussed with BRYN Quintana Did you reconcile home meds? @ -Will be reviewed and ordered if complete Was smoking cessation discussed for >3mins.? @ -n Was critical care preformed (if so, how long)? @ -[none] Were there social determinants of health that impacted care today? How? (Homelessness, low income, unemployed, alcoholism, drug addiction, transportation, low edu. Level, literacy, decrease access to med. care, senior living, rehab)? @ -n Was there de-escalation of care discussed even if they declined? (Discuss DNR or withdrawal of care, Hospice)? @ -n What co-morbidities impacted this encounter? (DM, HTN, Smoking, COPD, CAD, Cancer, CVA, Hep., AIDS, mental health diagnosis, sleep apnea, morbid obesity)? @ -CAD history with similar problems Was patient admitted / discharged? @ -Admitted Undiagnosed new problem with uncertain prognosis? @ -[none] Drug Therapy requiring intensive monitoring for toxicity (Heparin, Nitro, Insulin, Cardizem)? @ -[none] Were any procedures done? @ -[none] Diagnosis/symptom? @ -Chest pain Acute, or Chronic, or Acute on Chronic? @ -Acute with history of previous Uncomplicated (without systemic symptoms) or Complicated (systemic symptoms)? @ -Uncomplicated at this time Side effects of treatment? @ -[none] Exacerbation, Progression, or Severe Exacerbation] @ -[no] Poses a threat to life or bodily function? @ -Potential threat symptoms or not to be cardiac - Lab Data Result diagrams: 10/25/22 19:10 10/25/22 19:10 Lab Results 10/25/22 10/25/22 10/25/22 Range/Units 19:07 19:10 19:10 WBC 6.9 (3.8-10.6) k/uL RBC 4.27 (3.80-5.40) m/uL Hgb 11.2 L (11.4-16.0) gm/dL Hct 34.2 (34.0-46.0) % MCV 80.3 (80.0-100.0) fL MCH 26.2 (25.0-35.0) pg MCHC 32.6 (31.0-37.0) g/dL RDW 17.5 H (11.5-15.5) % Plt Count 299 (150-450) k/uL MPV 8.6 Neutrophils % 59 % Lymphocytes % 28 % Monocytes % 5 % Eosinophils % 5 % Basophils % 1 % Neutrophils # 4.1 (1.3-7.7) k/uL Lymphocytes # 2.0 (1.0-4.8) k/uL Monocytes # 0.4 (0-1.0) k/uL Eosinophils # 0.4 (0-0.7) k/uL Basophils # 0.1 (0-0.2) k/uL Hypochromasia Marked Anisocytosis Slight Microcytosis Slight PT 10.1 (9.0-12.0) sec INR 0.9 (<1.2) APTT 24.0 (22.0-30.0) sec D-Dimer 0.72 H (<0.60) mg/L FEU Sodium (137-145) mmol/L Potassium (3.5-5.1) mmol/L Chloride (98-107) mmol/L Carbon Dioxide (22-30) mmol/L Anion Gap mmol/L BUN (7-17) mg/dL Creatinine (0.52-1.04) mg/dL Est GFR (CKD-EPI)AfAm (>60 ml/min/1.73 sqM) Est GFR (CKD-EPI)NonAf (>60 ml/min/1.73 sqM) Glucose (74-99) mg/dL Calcium (8.4-10.2) mg/dL Magnesium (1.6-2.3) mg/dL Total Bilirubin (0.2-1.3) mg/dL AST (14-36) U/L ALT (4-34) U/L Alkaline Phosphatase (38-126) U/L Troponin I (0.000-0.034) ng/mL NT-Pro-B Natriuret Pep pg/mL Total Protein (6.3-8.2) g/dL Albumin (3.5-5.0) g/dL 10/25/22 10/25/22 10/25/22 Range/Units 19:10 19:10 19:10 WBC (3.8-10.6) k/uL RBC (3.80-5.40) m/uL Hgb (11.4-16.0) gm/dL Hct (34.0-46.0) % MCV (80.0-100.0) fL MCH (25.0-35.0) pg MCHC (31.0-37.0) g/dL RDW (11.5-15.5) % Plt Count (150-450) k/uL MPV Neutrophils % % Lymphocytes % % Monocytes % % Eosinophils % % Basophils % % Neutrophils # (1.3-7.7) k/uL Lymphocytes # (1.0-4.8) k/uL Monocytes # (0-1.0) k/uL Eosinophils # (0-0.7) k/uL Basophils # (0-0.2) k/uL Hypochromasia Anisocytosis Microcytosis PT (9.0-12.0) sec INR (<1.2) APTT (22.0-30.0) sec D-Dimer (<0.60) mg/L FEU Sodium 140 (137-145) mmol/L Potassium 4.0 (3.5-5.1) mmol/L Chloride 108 H (98-107) mmol/L Carbon Dioxide 24 (22-30) mmol/L Anion Gap 8 mmol/L BUN 9 (7-17) mg/dL Creatinine 0.59 (0.52-1.04) mg/dL Est GFR (CKD-EPI)AfAm >90 (>60 ml/min/1.73 sqM) Est GFR (CKD-EPI)NonAf >90 (>60 ml/min/1.73 sqM) Glucose 214 H (74-99) mg/dL Calcium 8.6 (8.4-10.2) mg/dL Magnesium 1.8 (1.6-2.3) mg/dL Total Bilirubin 0.2 (0.2-1.3) mg/dL AST 21 (14-36) U/L ALT 20 (4-34) U/L Alkaline Phosphatase 90 (38-126) U/L Troponin I <0.012 (0.000-0.034) ng/mL NT-Pro-B Natriuret Pep 595 pg/mL Total Protein 6.5 (6.3-8.2) g/dL Albumin 3.7 (3.5-5.0) g/dL - Radiology Data Interpreted by me: Chest x-ray shows no acute process. Disposition Clinical Impression: Chest pain Disposition: ADMITTED IP TO THIS HOSP Is patient prescribed a controlled substance at d/c from ED?: No Referrals: Surinder Rodríguez MD [Primary Care Provider] - 1-2 days Time of Disposition: 21:42
--- NOTE | 2022-10-25 20:51 | XR ---
EXAMINATION TYPE: XR chest 2V DATE OF EXAM: 10/25/2022 COMPARISON: 09/07/2022 HISTORY: Chest pain TECHNIQUE: FINDINGS: Heart is normal. Lungs are clear. Diaphragm is normal. Bony thorax is intact. There are melly rnal wires. IMPRESSION: No active cardiopulmonary disease. Normal heart.
[2022-10-25] MEDS ORDERED: LORazepam 2 MG/ML INJ IV STA ×2 (20:54→22:08)
[2022-10-25] MEDS ORDERED: NITROGLYCERIN SL TABS 0.4 MG TAB SUBLINGUAL PRN (21:43)
[2022-10-25] MEDS ORDERED: TEMAZEPAM 15 MG CAP PO STA (22:38)
[2022-10-25] MEDS ORDERED: TEMAZEPAM 7.5 MG CAP PO STA (22:44)
[2022-10-25] MEDS ORDERED: MORPHINE SULFATE 4 MG/ML SYRINGE IVP STA (23:14)
[2022-10-25] MEDS ORDERED: OLANZapine 10 MG VIAL IM STA (23:23)
[2022-10-25 23:36] LABS: Anisocytosis Slight; Basophils # (A) 0.1 k/uL (0-0.2); Basophils % (A) 1 %; Eosinophils # (A) 0.4 k/uL (0-0.7); Eosinophils % (A) 4 %; HCT 39.2 % (34.0-46.0); HGB 12.3 gm/dL (11.4-16.0); Hypochromasia Marked; Lymphocytes # (A) 4.5 k/uL (1.0-4.8); Lymphocytes % (A) 41 %; MCH 25.3 pg (25.0-35.0); MCHC 31.3 g/dL (31.0-37.0); MCV 80.9 fL (80.0-100.0); Mean Platelet Volume 8.3; Monocytes # (A) 0.6 k/uL (0-1.0); Monocytes % (A) 6 %; Neutrophils % (A) 46 %; Platelet Count 400 k/uL (150-450); RBC 4.84 m/uL (3.80-5.40); RDW 17.2 % (11.5-15.5); WBC 11.1 k/uL (3.8-10.6)
[2022-10-25 23:46] LABS: ALT 22 U/L (4-34); AST 24 U/L (14-36); African American GFR (CKD) >90 (>60 ml/min/1.73 sqM); Albumin 4.2 g/dL (3.5-5.0); Albumin/Globulin Ratio 1.3; Alkaline Phosphatase 94 U/L (38-126); Anion Gap 8 mmol/L; Blood Urea Nitrogen 8 mg/dL (7-17); Calcium 9.3 mg/dL (8.4-10.2); Carbon Dioxide 24 mmol/L (22-30); Chloride 111 mmol/L (98-107); Globulin 3.3 g/dL; Glucose 92 mg/dL (74-99); Magnesium 1.9 mg/dL (1.6-2.3); Non-African American GFR(CKD) >90 (>60 ml/min/1.73 sqM); Potassium 4.3 mmol/L (3.5-5.1); Sodium 143 mmol/L (137-145); Total Bilirubin 0.3 mg/dL (0.2-1.3); Total Protein 7.5 g/dL (6.3-8.2)
[2022-10-25 23:53] LABS: Glucose,Whole Blood 100 mg/dL (70-110)
[2022-10-26] MEDS ORDERED: HALOPERIDOL LACTATE 5 MG/ML 1 ML VIAL IM ONE ×2 (00:36→00:45)
[2022-10-26] MEDS: NITROGLYCERIN OINT 1 INCH/GM PACKET TOPICAL SCH ×2 (01:08→06:07)
--- NOTE | 2022-10-26 02:29 | CT ---
EXAMINATION TYPE: CT brain wo con DATE OF EXAM: 10/26/2022 COMPARISON: 09/07/2022 HISTORY: ams CT DLP: 1157.8 mGycm Automated exposure control for dose reduction was used. Images of the brain obtained with no contrast. Ventricles have normal size. There is no mass effect or midline shift. No sign of intracranial hemorr aurelio. The calvarium is intact. Skull base is intact. There is normal aeration of the mastoid sinuses. IMPRESSION: Mild atrophy. No acute intracranial abnormality. No change compared to the old exam.
--- NOTE | 2022-10-26 02:33 | CT ---
EXAMINATION TYPE: CT angio chest DATE OF EXAM: 10/26/2022 COMPARISON: 09/08/2022 HISTORY: AMS, R/O PE CT DLP: 762.2 mGycm Automated exposure control for dose reduction was used. CONTRAST: Performed with IV Contrast, patient injected with 75 mL of Isovue 370. Images obtained from the thoracic inlet to the diaphragm with the IV contrast. There are 3-D post pro cessed images. There is patchy interstitial and airspace infiltrate in the mid and lower lung powers bilaterally. He art is enlarged. There is no pericardial effusion. No pleural effusion. The ascending aorta measures 4.3 cm. No dissection. There is no mediastinal adenopathy. There are no hilar masses. No evidence of filling defect in the pulmonary arteries. The thoracic spine is intact. There is multilevel degenerative spur formation. There is disc space na rrowing throughout the thoracic spine. The sternum is intact. IMPRESSION: No evidence of pulmonary embolism. Cardiomegaly and pulmonary edema that could be developing RDS or c ongestive heart failure. Pulmonary edema appears new compared to old exam. Mild aneurysm of the ascending aorta. No dissection.
[2022-10-26 03:05] LABS: Amphetamine Screen,Urine Not Detected (NotDetected); Barbiturate Screen,Urine Not Detected (NotDetected); Benzodiazepines Screen,Urine Detected (NotDetected); Cocaine Screen,Urine Not Detected (NotDetected); Methadone Screen, Urine Not Detected (NotDetected); Opiate Screen,Urine Detected (NotDetected); Oxycodone Screen, Urine Not Detected (NotDetected); Phencyclidine Screen,Urine Not Detected (NotDetected); Tricyclic Antidepressant,Urine Not Detected (NotDetected); Urn Cannabinoid Scrn Detected (NotDetected)
[2022-10-26 06:30] LABS: Glucose,Whole Blood 117 mg/dL (70-110)
[2022-10-26] MEDS ORDERED: ASPIRIN 325 MG TAB PO SCH (09:00)
[2022-10-26 09:35] LABS: Chol/HDL Ratio 3.58 Ratio; LDL Cholesterol,Calculated 70.9 mg/dL (0.0-131.0)
[2022-10-26] MEDS ORDERED: traMADol 50 MG TAB PO PRN (10:16)
[2022-10-26] MEDS ORDERED: IBUPROFEN 800 MG TAB PO PRN (10:16)
[2022-10-26] MEDS ORDERED: BACLOFEN 10 MG TAB PO PRN (10:16)
[2022-10-26] MEDS ORDERED: DEXTROSE 50% SYRINGE 50 ML IVP PRN ×2 (10:17)
--- NOTE | 2022-10-26 10:27 | P.HPIM ---
History of Present Illness H&P Date: 10/26/22 Chief Complaint: Chest pain This is a 72-year-old female patient who presented to the ER with complaints of chest pain. According to ER records symptoms started at home but resolved when EMS arrived described as pressure in her chest with radiation towards left jaw. Patient does have a past medical history of asthma, CAD with coronary artery bypass graft surgery, heart failure, COPD, diabetes mellitus, fibromyalgia, hyperlipidemia, osteoarthritis, sleep apnea, polysubstance abuse, marijuana use and ex-smoker. EKG completed showing sinus rhythm. Chest x-ray completed showing no active cardiopulmonary. Normal heart. Head CT completed showing mild atrophy no acute intracranial abnormality no change compared to old exam. Chest CTA completed showing no evidence for pulmonary embolism cardiomegaly and pulmonary edema that could be developing RDS or CHF. Drug screen positive for opioids benzos and marijuana. BNP 595. troponins negative. Patient did have episode of agitation and restlessness requiring Haldol. At this time patient is resting comfortably in bed. 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 Poly substance abuse 07/19/21 admitted for Acute delirium History of Any Multi-Drug Resistant Organisms: None Reported Past Surgical History: Cholecystectomy, Coronary Bypass/CABG, Hernia Repair, Orthopedic Surgery, Tonsillectomy, Tubal Ligation Additional Past Surgical History / Comment(s): LEFT KNEE ARTHROSCOPY, BMT AND MYRINGOPLASTY, umbilical hernia repair, CABG 2020 Past Anesthesia/Blood Transfusion Reactions: No Reported Reaction Additional Past Anesthesia/Blood Transfusion Reaction / Comment(s): STATES AFTER LAST EAR SX (11/2013) HAD SORE MUSCLES AND WAS WEAK FOR 3-4 DAYS Past Psychological History: Unable to Obtain Smoking Status: Former smoker Past Alcohol Use History: None Reported Past Drug Use History: Marijuana, Methamphetamine - Past Family History Sister(s) Family Medical History: Cancer Brother(s) Family Medical History: Cancer Additional Family Medical History / Comment(s): brother had heart valve replacement Mother Family Medical History: Chest Pain / Angina, Diabetes Mellitus, Hypertension Father History Unknown: Yes Medications and Allergies Home Medications Medication Instructions Recorded Confirmed Type traMADol HCl [Ultram] 100 mg PO BID PRN 11/04/15 10/26/22 History Baclofen 10 mg PO TID PRN 09/14/16 10/26/22 History Ergocalciferol (Vitamin D2) 1,250 mcg PO Q7D 09/07/22 10/26/22 History [Drisdol (50,000 Iu)] Ibuprofen [Motrin] 800 mg PO Q8H PRN 09/07/22 10/26/22 History Insulin Detemir (Levemir) [Levemir] 10 unit SQ DAILY 09/07/22 10/26/22 History Furosemide [Lasix] 40 mg PO BID 10/26/22 10/26/22 History Allergies Allergy/AdvReac Type Severity Reaction Status Date / Time cephalexin Allergy Anaphylaxis Verified 10/25/22 19:05 cephalexin monohydrate Allergy Anaphylaxis Verified 10/25/22 19:05 [From Keflex] Sulfa (Sulfonamide Allergy Rash/Hives Verified 10/25/22 19:05 Antibiotics) Physical Exam Vitals: Vital Signs Temp Pulse Resp BP Pulse Ox 10/26/22 07:34 104 H 18 122/66 95 10/26/22 07:02 107 H 18 122/66 97 10/26/22 06:24 105 H 94 L 10/26/22 05:10 107 H 92 L 10/26/22 04:46 97.4 F L 10/26/22 04:43 103 H 18 145/74 97 10/26/22 02:35 111 H 20 118/61 93 L 10/26/22 01:09 113 H 20 92 L 10/26/22 00:31 117 H 22 154/64 88 L 10/26/22 00:03 111 H 91 L 10/25/22 23:00 105 H 24 134/96 97 10/25/22 19:00 98.1 F 86 18 97/60 96 Intake and Output 10/25/22 10/26/22 10/26/22 22:59 06:59 14:59 Other: Weight 90.718 kg Head normocephalic Neck supple Lungs clear to auscultation bilaterally no wheezing or crackles Heart regular rate and rhythm S1-S2, no rub or gallop Abdomen is soft nontender nondistended positive bowel sounds no hepatosplenomegaly Extremities no edema Neuro alert and orientated to 3. Some agitation noted Results CBC & Chem 7: 10/25/22 23:21 10/25/22 23:21 Labs: Abnormal Lab Results - Last 24 Hours (Table) 10/25/22 10/25/22 10/25/22 Range/Units 19:07 19:10 19:10 WBC (3.8-10.6) k/uL Hgb 11.2 L (11.4-16.0) gm/dL RDW 17.5 H (11.5-15.5) % D-Dimer 0.72 H (<0.60) mg/L FEU Chloride 108 H (98-107) mmol/L Glucose 214 H (74-99) mg/dL POC Glucose (mg/dL) (70-110) mg/dL Triglycerides (0.00-149.00) mg/dL HDL Cholesterol (40.00-60.00) mg/dL Urine Opiates Screen (NotDetected) U Benzodiazepines Scrn (NotDetected) U Marijuana (THC) Screen (NotDetected) 10/25/22 10/25/22 10/26/22 Range/Units 23:21 23:21 00:23 WBC 11.1 H (3.8-10.6) k/uL Hgb (11.4-16.0) gm/dL RDW 17.2 H (11.5-15.5) % D-Dimer (<0.60) mg/L FEU Chloride 111 H (98-107) mmol/L Glucose (74-99) mg/dL POC Glucose (mg/dL) (70-110) mg/dL Triglycerides (0.00-149.00) mg/dL HDL Cholesterol (40.00-60.00) mg/dL Urine Opiates Screen Detected H (NotDetected) U Benzodiazepines Scrn Detected H (NotDetected) U Marijuana (THC) Screen Detected H (NotDetected) 10/26/22 10/26/22 Range/Units 05:59 06:29 WBC (3.8-10.6) k/uL Hgb (11.4-16.0) gm/dL RDW (11.5-15.5) % D-Dimer (<0.60) mg/L FEU Chloride (98-107) mmol/L Glucose (74-99) mg/dL POC Glucose (mg/dL) 117 H (70-110) mg/dL Triglycerides 157.00 H (0.00-149.00) mg/dL HDL Cholesterol 39.70 L (40.00-60.00) mg/dL Urine Opiates Screen (NotDetected) U Benzodiazepines Scrn (NotDetected) U Marijuana (THC) Screen (NotDetected) Assessment and Plan Assessment: 1. Chest pain. Troponins negative CTA negative for pulmonary embolism. Cardiology services consulted 2. History of coronary artery disease with history of recent coronary artery bypass graft surgery 3. History of obstructive sleep apnea 4. History of hyperlipidemia 5. Essential hypertension 6. Agitation . Head CT was completed showing mild atrophy no acute intracranial abnormality no change compared to old exam. Drug screen positive for opioids and benzos and marijuana Cardiology services consulted 2-D echo ordered Repeat labs ordered Time with Patient: Greater than 30 (Greater than 60% of the total time spent in counseling and coordination of care)
--- NOTE | 2022-10-26 10:48 | P.CRDCN ---
History of Present Illness Consult date: 10/26/22 History of present illness: HISTORY OF PRESENT ILLNESS: This is a 72-year-old female with a past medical history significant for coronary artery disease with previous CABG, ischemic cardiomyopathy, congestive heart failure, fibromyalgia, COPD, hypertension, and hyperlipidemia. The patient does not follow with a workforce planning analyst at [facility]; it is unclear she follows with a workforce planning analyst at a different office. We have been asked to see the patient in consultation for chest pain. Apparently the patient came to the emergency room with a chief complaint of chest pain. According to the patient's nurse who is at the bedside, the patient was alert and oriented when she first arrived and then began to have altered mental status and became agitated. The patient did require multiple doses of Haldol and Ativan. She is currently lethargic and unable to answer any questions at the time of our examination. * EKG reveals sinus mechanism. EKG is poor quality with baseline artifact * Chest xray no active pulmonary disease. Normal heart. * CT of the brain: Mild atrophy. No acute intercurrent laterality. No change compared to old exam. * CT chest: No evidence of pulmonary embolism. Cardiomegaly and pulmonary edema that could be developing an RDS or congestive heart failure. Pulmonary edema appears new compared to old exam. Mild aneurysm of the ascending aorta. No dissection. * Laboratory data: WBC 11.1. Hemoglobin 12.3. Platelet counts 400. D-dimer 0.72. Sodium 143. Potassium 4.2. BUN 8. Creatinine 0.58. Troponin n egative 3. ProBNP 595. * Current home cardiac medications include Lasix 40 mg twice a day * Most recent echocardiogram obtained in May 2022 revealed ejection fraction 30% REVIEW OF SYSTEMS: At the time of my exam: CONSTITUTIONAL: Denies fever or chills. HEENT: Denies blurred vision, vision changes, or eye pain. Denies hemoptysis CARDIOVASCULAR: Denies chest pain. Denies orthopnea. Denies PND. Denies palpitations RESPIRATORY: Denies shortness of breath. GASTROINTESTINAL: Denies abdominal pain. Denies nausea or vomiting. HEMATOLOGIC: Denies bleeding disorders. GENITOURINARY: Denies any blood in urine. SKIN: Denies pruitis. Denies rash. PHYSICAL EXAM: VITAL SIGNS: Reviewed. GENERAL: Well-developed in no acute distress. HEENT: Head is normocephalic. Pupils are equal, round. Sclerae anicteric. Mucous membranes of the mouth are moist. Neck supple. No JVD or thyromegaly LUNGS: Respirations even and unlabored. Lungs essentially clear to auscultation bilaterally. HEART: Regular rate and rhythm. S1 and S2 heard. ABDOMEN: Soft. Nondistended. Nontender. EXTREMITIES: Normal range of motion. No clubbing or cyanosis. Peripheral p ulses intact. Trace bilateral lower extremity edema NEUROLOGIC: Awake and alert. Oriented x 3. ASSESSMENT: Chest pain, troponin negative x 3 Altered mental status Coronary artery disease with previous CABG x 3 vessel, September 2021 Ischemic cardiomyopathy, ejection fraction 30% Chronic congestive heart failure with reduced ejection fraction, currently euvolemic COPD Hypertension Hyperlipidemia Fibromyalgia PLAN: Repeat EKG Obtain limited 2-D echo to assess LV function Resume home cardiac medications Add aspirin 81 mg daily Add metoprolol 12.5 mg twice a day Add lisinopril 2.5 mg daily. Consider Entresto on an outpatient basis. Add atorvastatin 20 mg at night No stress testing at this time secondary to patients altered mental status and lethargy Further recommendations pending patient course Nurse practitioner note has been reviewed by physician. Signing provider agrees with the documented findings, assessment, and plan of care. 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 Poly substance abuse 07/19/21 admitted for Acute delirium History of Any Multi-Drug Resistant Organisms: None Reported Past Surgical History: Cholecystectomy, Coronary Bypass/CABG, Hernia Repair, Orthopedic Surgery, Tonsillectomy, Tubal Ligation Additional Past Surgical History / Comment(s): LEFT KNEE ARTHROSCOPY, BMT AND MYRINGOPLASTY, umbilical hernia repair, CABG 2020 Past Anesthesia/Blood Transfusion Reactions: No Reported Reaction Additional Past Anesthesia/Blood Transfusion Reaction / Comment(s): STATES AFTER LAST EAR SX (11/2013) HAD SORE MUSCLES AND WAS WEAK FOR 3-4 DAYS Past Psychological History: Unable to Obtain Smoking Status: Former smoker Past Alcohol Use History: None Reported Past Drug Use History: Marijuana, Methamphetamine - Past Family History Sister(s) Family Medical History: Cancer Brother(s) Family Medical History: Cancer Additional Family Medical History / Comment(s): brother had heart valve replacement Mother Family Medical History: Chest Pain / Angina, Diabetes Mellitus, Hypertension Father History Unknown: Yes Medications and Allergies Home Medications Medication Instructions Recorded Confirmed Type traMADol HCl [Ultram] 100 mg PO BID PRN 11/04/15 10/26/22 History Baclofen 10 mg PO TID PRN 09/14/16 10/26/22 History Ergocalciferol (Vitamin D2) 1,250 mcg PO Q7D 09/07/22 10/26/22 History [Drisdol (50,000 Iu)] Ibuprofen [Motrin] 800 mg PO Q8H PRN 09/07/22 10/26/22 History Insulin Detemir (Levemir) [Levemir] 10 unit SQ DAILY 09/07/22 10/26/22 History Furosemide [Lasix] 40 mg PO BID 10/26/22 10/26/22 History Allergies Allergy/AdvReac Type Severity Reaction Status Date / Time cephalexin Allergy Anaphylaxis Verified 10/25/22 19:05 cephalexin monohydrate Allergy Anaphylaxis Verified 10/25/22 19:05 [From Keflex] Sulfa (Sulfonamide Allergy Rash/Hives Verified 10/25/22 19:05 Antibiotics) Physical Exam Vitals: Vital Signs Temp Pulse Resp BP Pulse Ox 10/26/22 07:34 104 H 18 122/66 95 10/26/22 07:02 107 H 18 122/66 97 10/26/22 06:24 105 H 94 L 10/26/22 05:10 107 H 92 L 10/26/22 04:46 97.4 F L 10/26/22 04:43 103 H 18 145/74 97 10/26/22 02:35 111 H 20 118/61 93 L 10/26/22 01:09 113 H 20 92 L 10/26/22 00:31 117 H 22 154/64 88 L 10/26/22 00:03 111 H 91 L 10/25/22 23:00 105 H 24 134/96 97 10/25/22 19:00 98.1 F 86 18 97/60 96 Intake and Output 10/25/22 10/26/22 10/26/22 22:59 06:59 14:59 Other: Weight 90.718 kg Results 10/27/22 07:07 10/25/22 23:21 Cardiac Enzymes 10/25/22 10/25/22 10/25/22 Range/Units 19:10 19:10 22:21 AST 21 (14-36) U/L Troponin I <0.012 <0.012 (0.000-0.034) ng/mL 10/25/22 10/26/22 Range/Units 23:21 00:49 AST 24 (14-36) U/L Troponin I 0.014 (0.000-0.034) ng/mL Coagulation 10/25/22 Range/Units 19:10 PT 10.1 (9.0-12.0) sec APTT 24.0 (22.0-30.0) sec Lipids 10/26/22 Range/Units 05:59 Triglycerides 157.00 H (0.00-149.00) mg/dL Cholesterol 142.00 (0.00-200.00) mg/dL HDL Cholesterol 39.70 L (40.00-60.00) mg/dL Cholesterol/HDL Ratio 3.58 Ratio CBC 10/25/22 10/25/22 Range/Units 19:10 23:21 WBC 6.9 11.1 H (3.8-10.6) k/uL RBC 4.27 4.84 (3.80-5.40) m/uL Hgb 11.2 L 12.3 (11.4-16.0) gm/dL Hct 34.2 39.2 (34.0-46.0) % Plt Count 299 400 (150-450) k/uL Comprehensive Metabolic Panel 10/25/22 10/25/22 Range/Units 19:10 23:21 Sodium 140 143 (137-145) mmol/L Potassium 4.0 4.3 (3.5-5.1) mmol/L Chloride 108 H 111 H (98-107) mmol/L Carbon Dioxide 24 24 (22-30) mmol/L BUN 9 8 (7-17) mg/dL Creatinine 0.59 0.58 (0.52-1.04) mg/dL Glucose 214 H 92 (74-99) mg/dL Calcium 8.6 9.3 (8.4-10.2) mg/dL AST 21 24 (14-36) U/L ALT 20 22 (4-34) U/L Alkaline Phosphatase 90 94 (38-126) U/L Total Protein 6.5 7.5 (6.3-8.2) g/dL Albumin 3.7 4.2 (3.5-5.0) g/dL Current Medications Generic Name Dose Route Start Last Admin Trade Name Freq PRN Reason Stop Dose Admin Aspirin 325 mg 10/26/22 09:00 Aspirin 325 Mg Tab PO DAILY [facility] Baclofen 10 mg 10/26/22 10:16 Baclofen 10 Mg Tab PO TID PRN Muscle Pain Dextrose/Water 25 ml 10/26/22 10:17 Dextrose 50% Syringe 50 Ml IVP PER PROTOCOL PRN Hypoglycemia Protocol Dextrose/Water 50 ml 10/26/22 10:17 Dextrose 50% Syringe 50 Ml IVP PER PROTOCOL PRN Hypoglycemia Protocol Furosemide 40 mg 10/26/22 16:00 Furosemide 40 Mg Tab PO BID@0900,1600 [facility] Ibuprofen 800 mg 10/26/22 10:16 Ibuprofen 800 Mg Tab PO Q8H PRN Pain or Fever > 100.5 Insulin Aspart 0 unit 10/26/22 12:30 Insulin Aspart (Novolog) 100 Unit/Ml Vial SQ ACHS [facility] Protocol Insulin Detemir 10 unit 10/27/22 07:00 Insulin Detemir (Levemir) 100 Unit/Ml Syr SQ DAILY@0700 [facility] Nitroglycerin 0.4 mg 10/25/22 21:43 Nitroglycerin Sl Tabs 0.4 Mg Tab SUBLINGUAL Q5M PRN Chest Pain Tramadol HCl 100 mg 10/26/22 10:16 Tramadol 50 Mg Tab PO BID PRN Pain Intake and Output 10/25/22 10/26/22 10/26/22 22:59 06:59 14:59 Other: Weight 90.718 kg 10/25/22 23:21 10/25/22 23:21
[2022-10-26] MEDS: METOPROLOL TARTRATE 12.5 MG TAB PO SCH ×2 (11:48→20:45)
[2022-10-26 12:18] LABS: Glucose,Whole Blood 127 mg/dL (70-110)
[2022-10-26] MEDS: INSULIN ASPART (NovoLOG) 100 UNIT/ML VIAL SQ SCH ×3 (14:19→20:45)
[2022-10-26] MEDS: FUROSEMIDE 40 MG TAB PO SCH (15:17)
--- NOTE | 2022-10-26 18:04 | XR ---
EXAMINATION TYPE: XR chest 2V DATE OF EXAM: 10/26/2022 COMPARISON: 10/25/2022 HISTORY: Chest pain TECHNIQUE: FINDINGS: Heart is normal. Lungs are clear of consolidation. Costophrenic angles are clear. There are sternal wires. There are no hilar masses. There is slight increased interstitial pulmonary markings. IMPRESSION: Slightly increased pulmonary interstitial density compared to yesterday. No heart failure seen.
[2022-10-26 20:41] LABS: Glucose,Whole Blood 201 mg/dL (70-110)
[2022-10-26] MEDS: ATORVASTATIN 20 MG TAB PO SCH (20:45)
[2022-10-26] MEDS ORDERED: ATORVASTATIN 40 MG TAB PO SCH (21:00)
[2022-10-27 07:21] LABS: Glucose,Whole Blood 147 mg/dL (70-110)
[2022-10-27] MEDS: INSULIN ASPART (NovoLOG) 100 UNIT/ML VIAL SQ SCH ×4 (07:25→20:57)
[2022-10-27] MEDS: INSULIN DETEMIR (LEVEMIR) 100 UNIT/ML SYR SQ SCH (09:05)
[2022-10-27] MEDS: METOPROLOL TARTRATE 12.5 MG TAB PO SCH ×2 (09:06→20:57)
[2022-10-27] MEDS: FUROSEMIDE 40 MG TAB PO SCH ×2 (09:06→16:10)
[2022-10-27] MEDS: ASPIRIN 81 MG PO SCH (09:06)
--- NOTE | 2022-10-27 10:33 | P.PN ---
Subjective Progress Note Date: 10/27/22 This is a 72-year-old female patient who presented to the ER with complaints of chest pain. According to ER records symptoms started at home but resolved when EMS arrived described as pressure in her chest with radiation towards left jaw. Patient does have a past medical history of asthma, CAD with coronary artery bypass graft surgery, heart failure, COPD, diabetes mellitus, fibromyalgia, hyperlipidemia, osteoarthritis, sleep apnea, polysubstance abuse, marijuana use and ex-smoker. EKG completed showing sinus rhythm. Chest x-ray completed showing no active cardiopulmonary. Normal heart. Head CT completed showing mild atrophy no acute intracranial abnormality no change compared to old exam. Chest CTA completed showing no evidence for pulmonary embolism cardiomegaly and pulmonary edema that could be developing RDS or CHF. Drug screen positive for opioids benzos and marijuana. BNP 595. troponins negative. Patient did have episode of agitation and restlessness requiring Haldol. At this time patient is resting comfortably in bed. Cardiology services have been consulted 2-D echo ordered On 10/27/2022 patient is much more alert today alert and oriented 3. Patient unable to recall the events of yesterday. Pulmonary and cardiology services consulted. Her vital signs temp 97.8, heart rate 64, respiratory rate 18, blood pressure 146/79 pulse oximetry 95% on 2 L. At this time patient denies any chest pain or shortness breath. Patient denies nausea vomiting. Patient denies any urinary burning or frequency. 2-D echo ordered Objective - Vital Signs Vital signs: Vital Signs Temp 98.1 F 10/27/22 07:32 Pulse 101 H 10/27/22 07:32 Resp 20 10/27/22 07:32 BP 166/97 10/27/22 07:32 Pulse Ox 97 10/27/22 07:32 FiO2 Intake & Output 10/26/22 10/27/22 10/27/22 18:59 06:59 18:59 Intake Total 600 Balance 600 Weight 90.718 kg Intake: Oral 600 Other: Voiding Method Toilet Toilet Diaper Diaper # Voids 1 - Exam Head normocephalic Neck supple Lungs clear to auscultation bilaterally no wheezing or crackles Heart regular rate and rhythm S1-S2, no rub or gallop Abdomen is soft nontender nondistended positive bowel sounds no hepatosplenomegaly Extremities no edema Neuro alert and orientated to 3. Some agitation noted - Labs CBC & Chem 7: 10/25/22 23:21 10/25/22 23:21 Labs: Abnormal Lab Results - Last 24 Hours (Table) 10/25/22 10/26/22 10/26/22 Range/Units 23:21 12:17 20:37 POC Glucose (mg/dL) 127 H 201 H (70-110) mg/dL Hemoglobin A1c 7.6 H (0.0-6.0) % 10/27/22 Range/Units 07:19 POC Glucose (mg/dL) 147 H (70-110) mg/dL Hemoglobin A1c (0.0-6.0) % Assessment and Plan Assessment: 1. Chest pain. Troponins negative CTA negative for pulmonary embolism. Cardiology services consulted 2. History of coronary artery disease with history of recent coronary artery bypass graft surgery 3. History of obstructive sleep apnea 4. History of hyperlipidemia 5. Essential hypertension 6. Agitation . Head CT was completed showing mild atrophy no acute intracranial abnormality no change compared to old exam. Drug screen positive for opioids and benzos and marijuana 7. Chest congestion seen on x-ray. Pulmonary service is consulted Cardiology services consulted Pulmonary services consulted 2-D echo ordered Repeat labs ordered
[2022-10-27 11:01] LABS: Basophils # (A) 0.07 X 10*3/uL (0.00-0.10); Eosinophils # (A) 0.31 X 10*3/uL (0.04-0.35); Eosinophils % (A) 4.5 %; HCT 40.2 % (37.2-46.3); HGB 11.6 g/dL (12.0-15.0); Immature Grans, Automated 0.3 %; Lymphocytes # (A) 2.19 X 10*3/uL (0.90-5.00); MCH 24.1 pg (27.0-32.0); MCHC 28.9 g/dL (32.0-37.0); MCV 83.4 fL (80.0-97.0); Mean Platelet Volume 10.7 fL (9.5-12.2); Monocytes # (A) 0.63 X 10*3/uL (0.20-1.00); Monocytes % (A) 9.2 %; NRBC Per 100 WBC 0 /100 WBCS (0.0-0.0); Neutrophils # (A) 3.63 X 10*3/uL (1.80-7.70); Platelet Count 318 X 10*3/uL (140-440); RBC 4.82 X 10*6/uL (4.10-5.20); RDW 18.8 % (11.5-14.5); WBC 6.85 X 10*3/uL (4.50-10.00)
[2022-10-27 11:25] LABS: African American GFR (CKD) 105.5 (60.0-200.0); Albumin 3.8 g/dL (3.8-4.9); Albumin/Globulin Ratio 1.41 (1.60-3.17); Anion Gap 9.3 mmol/L (10.00-18.00); BUN/Creat Ratio 12.17 Ratio (12.00-20.00); Blood Urea Nitrogen 7.3 mg/dL (9.0-27.0); Calcium 8.9 mg/dL (8.7-10.3); Carbon Dioxide 27.7 mmol/L (20.0-27.5); Globulin 2.7 g/dL (1.6-3.3); Non-African American GFR(CKD) 91.1 (60.0-200.0); Potassium 3.6 mmol/L (3.5-5.5); Total Bilirubin 0.4 mg/dL (0.30-1.20); Total Protein 6.5 g/dL (6.2-8.2)
--- NOTE | 2022-10-27 12:08 | P.PN ---
Subjective Progress Note Date: 10/27/22 HISTORY OF PRESENT ILLNESS: This is a 72-year-old female with a past medical history significant for coronary artery disease with previous CABG, ischemic cardiomyopathy, congestive heart failure, fibromyalgia, COPD, hypertension, and hyperlipidemia. The patient does not follow with a wash mill operator at [facility]; it is unclear she follows with a wash mill operator at a different office. We have been asked to see the patient in consultation for chest pain. Apparently the patient came to the emergency room with a chief complaint of chest pain. According to the patient's nurse who is at the bedside, the patient was alert and oriented when she first arrived and then began to have altered mental status and became agitated. The patient did require multiple doses of Haldol and Ativan. She is currently lethargic and unable to answer any questions at the time of our exam ination. * EKG reveals sinus mechanism. EKG is poor quality with baseline artifact * Chest xray no active pulmonary disease. Normal heart. * CT of the brain: Mild atrophy. No acute intercurrent laterality. No change compared to old exam. * CT chest: No evidence of pulmonary embolism. Cardiomegaly and pulmonary edema that could be developing an RDS or congestive heart failure. Pulmonary edema appears new compared to old exam. Mild aneurysm of the ascending aorta. No dissection. * Laboratory data: WBC 11.1. Hemoglobin 12.3. Platelet counts 400. D-dimer 0.72. Sodium 143. Potassium 4.2. BUN 8. Creatinine 0.58. Troponin negative 3. ProBNP 595. * Current home cardiac medications include Lasix 40 mg twice a day * Most recent echocardiogram obtained in May 2022 revealed ejection fraction 30% 10/27/2022 Patient examined at the bedside. Patient is more awake today. Patient currently denies chest pain or pressure. She denies shortness of breath. Blood pressure is elevated with a systolic in the 160s. Repeat EKG obtained with no evidence of ischemia. PHYSICAL EXAM: VITAL SIGNS: Reviewed. GENERAL: Well-developed in no acute distress. HEENT: Head is normocephalic. Pupils are equal, round. Sclerae anicteric. Mucous membranes of the mouth are moist. Neck supple. No JVD or thyromegaly LUNGS: Respirations even and unlabored. Lungs essentially clear to auscultation bilaterally. HEART: Regular rate and rhythm. S1 and S2 heard. ABDOMEN: Soft. Nondistended. Nontender. EXTREMITIES: Normal range of motion. No clubbing or cyanosis. Peripheral pulses intact. Trace bilateral lower extremity edema NEUROLOGIC: Awake and alert. Oriented x 3. ASSESSMENT: Chest pain, troponin negative x 3 Altered mental status Coronary artery disease with previous CABG x 3 vessel, September 2021 Ischemic cardiomyopathy, ejection fraction 30% Chronic congestive heart failure with reduced ejection fraction, currently euvolemic COPD Hypertension Hyperlipidemia Fibromyalgia PLAN: 2-D echo pending. Await results Continue current cardiac medications Increase lisinopril to 5 mg daily for optimal blood pressure control Recommend outpatient stress testing Further recommendations pending patient course Nurse practitioner note has been reviewed by physician. Signing provider agrees with the documented findings, assessment, and plan of care. Objective - Vital Signs Vital signs: Vital Signs Temp 98.1 F 10/27/22 07:32 Pulse 101 H 10/27/22 07:32 Resp 20 10/27/22 07:32 BP 166/97 10/27/22 07:32 Pulse Ox 95 10/27/22 12:04 FiO2 Intake & Output 10/26/22 10/27/22 10/27/22 18:59 06:59 18:59 Intake Total 600 Balance 600 Weight 90.718 kg Intake: Oral 600 Other: Voiding Method Toilet Toilet Diaper Diaper # Voids 1 - Labs CBC & Chem 7: 10/27/22 07:07 10/27/22 07:07 Labs: Abnormal Lab Results - Last 24 Hours (Table) 10/25/22 10/26/22 10/26/22 Range/Units 23:21 12:17 20:37 Hgb (12.0-15.0) g/dL MCH (27.0-32.0) pg MCHC (32.0-37.0) g/dL RDW (11.5-14.5) % Carbon Dioxide (20.0-27.5) mmol/L Anion Gap (10.00-18.00) mmol/L BUN (9.0-27.0) mg/dL Glucose (70-110) mg/dL POC Glucose (mg/dL) 127 H 201 H (70-110) mg/dL Hemoglobin A1c 7.6 H (0.0-6.0) % Albumin/Globulin Ratio (1.60-3.17) g/dL 10/27/22 10/27/22 10/27/22 Range/Units 07:07 07:07 07:19 Hgb 11.6 L (12.0-15.0) g/dL MCH 24.1 L (27.0-32.0) pg MCHC 28.9 L (32.0-37.0) g/dL RDW 18.8 H (11.5-14.5) % Carbon Dioxide 27.7 H (20.0-27.5) mmol/L Anion Gap 9.30 L (10.00-18.00) mmol/L BUN 7.3 L (9.0-27.0) mg/dL Glucose 152 H (70-110) mg/dL POC Glucose (mg/dL) 147 H (70-110) mg/dL Hemoglobin A1c (0.0-6.0) % Albumin/Globulin Ratio 1.41 L (1.60-3.17) g/dL
[2022-10-27 12:11] LABS: Glucose,Whole Blood 119 mg/dL (70-110)
[2022-10-27] MEDS ORDERED: IPRATROPIUM-ALBUTEROL 3 ML NEB INHALATION PRN (12:49)
--- NOTE | 2022-10-27 13:08 | P.CNPUL ---
History of Present Illness Consult date: 10/27/22 Reason for consult: dyspnea, chest pain History of present illness: 72-year-old female patient with known history of COPD a previous tobacco smoker and a daily marijuana smoker who came into the hospital because of chest discomfort and pain as the patient was having pain and discomfort upon taking a deep breath. At the same time, she had a congestive cough. Minimal amount of sputum production. She is known to have CAD and previous bypass surgery. She is also known to have diabetes mellitus, hyperlipidemia, fibromyalgia, obstructive sleep apnea, osteoarthritis and previous history of polysubstance abuse. During this current hospitalization, chest x-ray was done that showed no acute abnormalities. CAT scan of the head showed mild atrophy without any acute abnormalities. CAT scan of the chest showed some limited infiltration and interstitial changes bilaterally more so on the lung base. Urine drug screen was positive for opiates, benzodiazepine and marijuana. ProBNP level was 595 and the troponins were negative. The patient did have also an episode of agitation or restlessness requiring Haldol during this current hospitalization. She is currently on room air oxygen. Echocardiogram was done and results are still pending for now. The WBC count is at 11 with a hemoglobin of 12.3 and a platelet count of 400. Sodium is at 143 with a bicarb of 24 BUN of 8 creatinine of 0.58. Hemoglobin A1c is at 7.6. Review of Systems CONSTITUTIONAL: Denies fever or chills. HEENT: Denies blurred vision, vision changes, or eye pain. Denies hemoptysis CARDIOVASCULAR: Denies chest pain. Denies orthopnea. Denies PND. Denies palpitations RESPIRATORY: Denies shortness of breath. Patient has chest discomfort and some exertional dyspnea and cough and congestion. GASTROINTESTINAL: Denies abdominal pain. Denies nausea or vomiting. HEMATOLOGIC: Denies bleeding disorders. GENITOURINARY: Denies any blood in urine. SKIN: Denies pruitis. Denies rash. 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 Poly substance abuse 07/19/21 admitted for Acute delirium History of Any Multi-Drug Resistant Organisms: None Reported Past Surgical History: Cholecystectomy, Coronary Bypass/CABG, Hernia Repair, Orthopedic Surgery, Tonsillectomy, Tubal Ligation Additional Past Surgical History / Comment(s): LEFT KNEE ARTHROSCOPY, BMT AND MYRINGOPLASTY, umbilical hernia repair, CABG 2020 Past Anesthesia/Blood Transfusion Reactions: No Reported Reaction Additional Past Anesthesia/Blood Transfusion Reaction / Comment(s): STATES AFTER LAST EAR SX (11/2013) HAD SORE MUSCLES AND WAS WEAK FOR 3-4 DAYS Past Psychological History: Unable to Obtain Smoking Status: Former smoker Past Alcohol Use History: None Reported Past Drug Use History: Marijuana, Methamphetamine - Past Family History Sister(s) Family Medical History: Cancer Brother(s) Family Medical History: Cancer Additional Family Medical History / Comment(s): brother had heart valve replacement Mother Family Medical History: Chest Pain / Angina, Diabetes Mellitus, Hypertension Father History Unknown: Yes Additional Family Medical History / Comment(s): , "had bad lungs" per patient, was a smoker Medications and Allergies Home Medications Medication Instructions Recorded Confirmed Type traMADol HCl [Ultram] 100 mg PO BID PRN 11/04/15 10/26/22 History Baclofen 10 mg PO TID PRN 09/14/16 10/26/22 History Ergocalciferol (Vitamin D2) 1,250 mcg PO Q7D 09/07/22 10/26/22 History [Drisdol (50,000 Iu)] Ibuprofen [Motrin] 800 mg PO Q8H PRN 09/07/22 10/26/22 History Insulin Detemir (Levemir) [Levemir] 10 unit SQ DAILY 09/07/22 10/26/22 History Furosemide [Lasix] 40 mg PO BID 10/26/22 10/26/22 History Allergies Allergy/AdvReac Type Severity Reaction Status Date / Time cephalexin Allergy Anaphylaxis Verified 10/25/22 19:05 cephalexin monohydrate Allergy Anaphylaxis Verified 10/25/22 19:05 [From Keflex] Sulfa (Sulfonamide Allergy Rash/Hives Verified 10/25/22 19:05 Antibiotics) Physical Exam Vitals: Vital Signs Temp Pulse Pulse Resp BP BP Pulse Ox 10/27/22 12:34 98.3 F 76 18 120/76 96 10/27/22 12:04 95 10/27/22 07:32 98.1 F 101 H 20 166/97 97 10/27/22 02:02 97.8 F 64 18 146/79 95 10/26/22 21:43 95 10/26/22 21:20 159/85 10/26/22 19:45 20 10/26/22 18:37 97.8 F 107 H 20 175/93 10/26/22 16:00 98.7 F 85 18 155/72 95 10/26/22 14:47 95 Intake and Output 10/26/22 10/27/22 10/27/22 22:59 06:59 14:59 Intake Total 600 Balance 600 Intake: Oral 600 Other: Voiding Method Toilet Toilet Diaper Diaper # Voids 1 Weight 90.718 kg Gen. appearance the patient is calm and comfortable no acute distress The patient appeared well nourished and normally developed. Vital signs as documented. Head exam is unremarkable. No scleral icterus or corneal arcus noted. Neck is without jugular venous distension, thyromegaly, or carotid bruits. Carotid upstrokes are brisk bilaterally. Lungs are diminished breath sounds bilaterally along with diffuse expiratory wheezes and lower lung powers and the patient has scattered WHEEZE especially upon forceful expiratory maneuvers. Cardiac exam reveals the PMI to be normally sized and situated. Rhyt hm is regular. First and second heart sounds normal. No murmurs, rubs or gallops. Abdominal exam reveals normal bowel sounds, no masses, no organomegaly and no aortic enlargement. Extremities are nonedematous and both femoral and pedal pulses are normal.Examination of the skin revealed no evidence of significant rashes, suspicious appearing nevi or other concerning lesions.Neurologically, the patient is awake and alert and the patient does not have any focal neurological deficit. Cranial nerves are essentially intact. Results - Laboratory Findings CBC and BMP: 10/27/22 07:07 10/27/22 07:07 PT/INR, D-dimer PT 10.1 sec (9.0-12.0) 10/25/22 19:10 INR 0.9 (<1.2) 10/25/22 19:10 D-Dimer 0.72 mg/L FEU (<0.60) H 10/25/22 19:07 Abnormal lab findings: Abnormal Labs 10/25/22 10/25/22 10/25/22 19:07 19:10 19:10 WBC Hgb 11.2 L MCH MCHC RDW 17.5 H D-Dimer 0.72 H Chloride 108 H Carbon Dioxide Anion Gap BUN Glucose 214 H POC Glucose (mg/dL) Hemoglobin A1c Albumin/Globulin Ratio Triglycerides HDL Cholesterol Urine Opiates Screen U Benzodiazepines Scrn U Marijuana (THC) Screen 10/25/22 10/25/22 10/25/22 23:21 23:21 23:21 WBC 11.1 H Hgb MCH MCHC RDW 17.2 H D-Dimer Chloride 111 H Carbon Dioxide Anion Gap BUN Glucose POC Glucose (mg/dL) Hemoglobin A1c 7.6 H Albumin/Globulin Ratio Triglycerides HDL Cholesterol Urine Opiates Screen U Benzodiazepines Scrn U Marijuana (THC) Screen 10/26/22 10/26/22 10/26/22 00:23 05:59 06:29 WBC Hgb MCH MCHC RDW D-Dimer Chloride Carbon Dioxide Anion Gap BUN Glucose POC Glucose (mg/dL) 117 H Hemoglobin A1c Albumin/Globulin Ratio Triglycerides 157.00 H HDL Cholesterol 39.70 L Urine Opiates Screen Detected H U Benzodiazepines Scrn Detected H U Marijuana (THC) Screen Detected H 10/26/22 10/26/22 10/27/22 12:17 20:37 07:07 WBC Hgb 11.6 L MCH 24.1 L MCHC 28.9 L RDW 18.8 H D-Dimer Chloride Carbon Dioxide Anion Gap BUN Glucose POC Glucose (mg/dL) 127 H 201 H Hemoglobin A1c Albumin/Globulin Ratio Triglycerides HDL Cholesterol Urine Opiates Screen U Benzodiazepines Scrn U Marijuana (THC) Screen 10/27/22 10/27/22 10/27/22 07:07 07:19 12:07 WBC Hgb MCH MCHC RDW D-Dimer Chloride Carbon Dioxide 27.7 H Anion Gap 9.30 L BUN 7.3 L Glucose 152 H POC Glucose (mg/dL) 147 H 119 H Hemoglobin A1c Albumin/Globulin Ratio 1.41 L Triglycerides HDL Cholesterol Urine Opiates Screen U Benzodiazepines Scrn U Marijuana (THC) Screen - Diagnostic Findings Chest x-ray: image reviewed CT scan - chest: image reviewed Assessment and Plan Plan: Acute exacerbation of COPD with possible viral versus chemical pneumonitis. Patient has some vague bilateral pulmonary infiltrates based on the CAT scan of the chest. Chest pain secondary to above Chronic marijuana smoking Coronary artery disease with previous CABG x 3 vessel, September 2021 Ischemic cardiomyopathy, ejection fraction 30% Chronic congestive heart failure with reduced ejection fraction, currently euvolemic COPD Hypertension Hyperlipidemia Fibromyalgia Plan We'll start the patient on DuoNeb nebulized treatments [id number] IV Solu-Medrol 60 mg every 6 hours We'll do the viral screen for influenza, Covid 19 and RSV Monitor the blood sugar control any form of steroid-induced hyperglycemia Smoking cessation counseling was done Outpatient PFT CT of the chest was noted
[2022-10-27] MEDS: IPRATROPIUM-ALBUTEROL 3 ML NEB INHALATION SCH ×2 (15:26→20:38)
[2022-10-27 17:22] LABS: Glucose,Whole Blood 151 mg/dL (70-110)
[2022-10-27] MEDS: methylPREDNISolone SOD SUCCI 125 MG/2 ML VIAL IV SCH ×2 (18:05→23:19)
[2022-10-27 20:30] LABS: Glucose,Whole Blood 247 mg/dL (70-110)
[2022-10-27] MEDS: ATORVASTATIN 20 MG TAB PO SCH (20:57)
[2022-10-28] MEDS: methylPREDNISolone SOD SUCCI 125 MG/2 ML VIAL IV SCH ×2 (05:44→12:08)
[2022-10-28 07:19] LABS: Glucose,Whole Blood 332 mg/dL (70-110)
[2022-10-28 07:39] VITALS: RESP 18
[2022-10-28] MEDS: IPRATROPIUM-ALBUTEROL 3 ML NEB INHALATION SCH ×3 (08:17→15:38)
[2022-10-28] MEDS: ASPIRIN 81 MG PO SCH (08:28)
[2022-10-28] MEDS: INSULIN DETEMIR (LEVEMIR) 100 UNIT/ML SYR SQ SCH (08:28)
[2022-10-28] MEDS: METOPROLOL TARTRATE 12.5 MG TAB PO SCH (08:28)
[2022-10-28] MEDS: FUROSEMIDE 40 MG TAB PO SCH (08:28)
[2022-10-28] MEDS: INSULIN ASPART (NovoLOG) 100 UNIT/ML VIAL SQ SCH ×2 (08:29→11:33)
[2022-10-28] MEDS ORDERED: lisinopriL 5 MG TAB PO SCH (09:00)
[2022-10-28 09:12] LABS: Basophils # (A) 0.01 X 10*3/uL (0.00-0.10); Basophils % (A) 0.2 %; Eosinophils # (A) 0 X 10*3/uL (0.04-0.35); Eosinophils % (A) 0 %; HCT 42.8 % (37.2-46.3); HGB 12.7 g/dL (12.0-15.0); Immature Grans, Automated 0.3 %; Lymphocytes # (A) 1.32 X 10*3/uL (0.90-5.00); Lymphocytes % (A) 19.9 %; MCH 24.1 pg (27.0-32.0); MCHC 29.7 g/dL (32.0-37.0); MCV 81.2 fL (80.0-97.0); Mean Platelet Volume 10.4 fL (9.5-12.2); Monocytes # (A) 0.06 X 10*3/uL (0.20-1.00); Monocytes % (A) 0.9 %; NRBC Per 100 WBC 0 /100 WBCS (0.0-0.0); Neutrophils # (A) 5.22 X 10*3/uL (1.80-7.70); Neutrophils % (A) 78.7 %; Platelet Count 370 X 10*3/uL (140-440); RBC 5.27 X 10*6/uL (4.10-5.20); RDW 18.6 % (11.5-14.5); WBC 6.63 X 10*3/uL (4.50-10.00)
--- NOTE | 2022-10-28 09:43 | P.PN ---
Subjective Progress Note Date: 10/28/22 This is a 72-year-old female patient who presented to the ER with complaints of chest pain. According to ER records symptoms started at home but resolved when EMS arrived described as pressure in her chest with radiation towards left jaw. Patient does have a past medical history of asthma, CAD with coronary artery bypass graft surgery, heart failure, COPD, diabetes mellitus, fibromyalgia, hyperlipidemia, osteoarthritis, sleep apnea, polysubstance abuse, marijuana use and ex-smoker. EKG completed showing sinus rhythm. Chest x-ray completed showing no active cardiopulmonary. Normal heart. Head CT completed showing mild atrophy no acute intracranial abnormality no change compared to old exam. Chest CTA completed showing no evidence for pulmonary embolism cardiomegaly and pulmonary edema that could be developing RDS or CHF. Drug screen positive for opioids benzos and marijuana. BNP 595. troponins negative. Patient did have episode of agitation and restlessness requiring Haldol. At this time patient is resting comfortably in bed. Cardiology services have been consulted 2-D echo ordered On 10/27/2022 patient is much more alert today alert and oriented 3. Patient unable to recall the events of yesterday. Pulmonary and cardiology services consulted. Her vital signs temp 97.8, heart rate 64, respiratory rate 18, blood pressure 146/79 pulse oximetry 95% on 2 L. At this time patient denies any chest pain or shortness breath. Patient denies nausea vomiting. Patient denies any urinary burning or frequency. 2-D echo ordered On 10/28/2022 patient is alert and oriented 3. Patient is currently sitting up in chair. Patient was started on DuoNeb and IV Solu-Medrol pulmonary yesterday. Awaiting 2-D echo results. Patient reports improvement with shortness of breath. Patient denies chest pain. Patient denies nausea vomiting or diarrhea. Patient denies any urinary burning or frequency Objective - Vital Signs Vital signs: Vital Signs Temp 97.5 F L 10/28/22 07:18 Pulse 90 10/28/22 08:25 Resp 18 10/28/22 07:18 BP 105/75 10/28/22 07:18 Pulse Ox 95 10/28/22 08:20 FiO2 Intake & Output 10/27/22 10/28/22 10/28/22 18:59 06:59 18:59 Intake Total 600 Balance 600 Intake: Oral 600 Other: Voiding Method Toilet Toilet Diaper Diaper # Voids 2 3 1 - Exam Head normocephalic Neck supple Lungs clear to auscultation bilaterally no wheezing or crackles Heart regular rate and rhythm S1-S2, no rub or gallop Abdomen is soft nontender nondistended positive bowel sounds no hepatosplenomegaly Extremities no edema Neuro alert and orientated to 3. Some agitation noted - Labs CBC & Chem 7: 10/28/22 04:52 10/27/22 07:07 Labs: Abnormal Lab Results - Last 24 Hours (Table) 10/27/22 10/27/22 10/27/22 Range/Units 07:07 07:07 12:07 RBC (4.10-5.20) X 10*6/uL Hgb 11.6 L (12.0-15.0) g/dL MCH 24.1 L (27.0-32.0) pg MCHC 28.9 L (32.0-37.0) g/dL RDW 18.8 H (11.5-14.5) % Monocytes # (0.20-1.00) X 10*3/uL Eosinophils # (0.04-0.35) X 10*3/uL Carbon Dioxide 27.7 H (20.0-27.5) mmol/L Anion Gap 9.30 L (10.00-18.00) mmol/L BUN 7.3 L (9.0-27.0) mg/dL Glucose 152 H (70-110) mg/dL POC Glucose (mg/dL) 119 H (70-110) mg/dL Albumin/Globulin Ratio 1.41 L (1.60-3.17) g/dL 10/27/22 10/27/22 10/28/22 Range/Units 17:21 20:29 04:52 RBC 5.27 H (4.10-5.20) X 10*6/uL Hgb (12.0-15.0) g/dL MCH 24.1 L (27.0-32.0) pg MCHC 29.7 L (32.0-37.0) g/dL RDW 18.6 H (11.5-14.5) % Monocytes # 0.06 L (0.20-1.00) X 10*3/uL Eosinophils # 0 L (0.04-0.35) X 10*3/uL Carbon Dioxide (20.0-27.5) mmol/L Anion Gap (10.00-18.00) mmol/L BUN (9.0-27.0) mg/dL Glucose (70-110) mg/dL POC Glucose (mg/dL) 151 H 247 H (70-110) mg/dL Albumin/Globulin Ratio (1.60-3.17) g/dL 10/28/22 Range/Units 07:18 RBC (4.10-5.20) X 10*6/uL Hgb (12.0-15.0) g/dL MCH (27.0-32.0) pg MCHC (32.0-37.0) g/dL RDW (11.5-14.5) % Monocytes # (0.20-1.00) X 10*3/uL Eosinophils # (0.04-0.35) X 10*3/uL Carbon Dioxide (20.0-27.5) mmol/L Anion Gap (10.00-18.00) mmol/L BUN (9.0-27.0) mg/dL Glucose (70-110) mg/dL POC Glucose (mg/dL) 332 H (70-110) mg/dL Albumin/Globulin Ratio (1.60-3.17) g/dL Assessment and Plan Assessment: 1. Chest pain. Troponins negative CTA negative for pulmonary embolism. Cardiology services consulted 2. History of coronary artery disease with history of recent coronary artery bypass graft surgery 3. History of obstructive sleep apnea 4. History of hyperlipidemia 5. Essential hypertension 6. Agitation . Head CT was completed showing mild atrophy no acute intracranial abnormality no change compared to old exam. Drug screen positive for opioids and benzos and marijuana. Resolved 7. Acute exacerbation of COPD with possible viral versus chemical pneumonitis. Patient negative for COVID-19 and influenza. Patient started on IV Solu-Medrol and DuoNeb breathing treatments Cardiology services consulted Pulmonary services consulted 2-D echo ordered Repeat labs ordered
[2022-10-28 10:06] LABS: African American GFR (CKD) 85.2 (60.0-200.0); Albumin 4.4 g/dL (3.8-4.9); Albumin/Globulin Ratio 1.39 (1.60-3.17); Anion Gap 15.5 mmol/L (10.00-18.00); BUN/Creat Ratio 22.47 Ratio (12.00-20.00); Calcium 9.7 mg/dL (8.7-10.3); Globulin 3.2 g/dL (1.6-3.3); Non-African American GFR(CKD) 73.5 (60.0-200.0); Potassium 4.4 mmol/L (3.5-5.5); Total Bilirubin 0.3 mg/dL (0.30-1.20); Total Protein 7.5 g/dL (6.2-8.2)
--- NOTE | 2022-10-28 10:38 | CA ---
Transthoracic Echo Report Name: Mark Moore Age: 72 Gender: F : 1950 Exam Date: 10/27/2022 14:24 Exam Location: [facility] Ht (in): 62 Wt (lb): 200 Ordering Physician: Venessa Guerin Attending/Referring Phys: [id number], Truong Sash Sticker Mary Bautista RDCS Procedure CPT: Indications: LV function Cardiac Hx: Technical Quality: Fair Contrast 1: Total Dose (mL): Contrast 2: Total Dose (mL): MEASUREMENTS (Male / Female) Normal Values 2D ECHO LV Diastolic Diameter PLAX 4.6 cm 4.2 - 5.9 / 3.9 - 5.3 cm LV Systolic Diameter PLAX 3.6 cm IVS Diastolic Thickness 1.5 cm 0.6 - 1.0 / 0.6 - 0.9 cm LVPW Diastolic Thickness 1.6 cm 0.6 - 1.0 / 0.6 - 0.9 cm LV Relative Wall Thickness 0.7 FINDINGS Left Ventricle Left ventricular ejection fraction is estimated at 40 %. Right Ventricle Right Atrium Left Atrium Mitral Valve Aortic Valve Tricuspid Valve Pulmonic Valve Pericardium No pericardial effusion. Aorta CONCLUSIONS Limited 2-D echo Left ventricular ejection fraction 40% No pericardial effusion Previewed by: Dr. Wallace Grewal DO (Electronically Signed) Final Date: 28 October 2022 10:37
[2022-10-28 11:10] LABS: Glucose,Whole Blood 431 mg/dL (70-110)
[2022-10-28] MEDS ORDERED: INSULIN ASPART (NovoLOG) 100 UNIT/ML VIAL SQ ONE (11:27)
--- NOTE | 2022-10-28 12:00 | P.PN ---
Subjective Progress Note Date: 10/28/22 HISTORY OF PRESENT ILLNESS: This is a 72-year-old female with a past medical history significant for coronary artery disease with previous CABG, ischemic cardiomyopathy, congestive heart failure, fibromyalgia, COPD, hypertension, and hyperlipidemia. The patient does not follow with a tune up mechanic at [facility]; it is unclear she follows with a tune up mechanic at a different office. We have been asked to see the patient in consultation for chest pain. Apparently the patient came to the emergency room with a chief complaint of chest pain. According to the patient's nurse who is at the bedside, the patient was alert and oriented when she first arrived and then began to have altered mental status and became agitated. The patient did require multiple doses of Haldol and Ativan. She is currently lethargic and unable to answer any questions at the time of our exam ination. * EKG reveals sinus mechanism. EKG is poor quality with baseline artifact * Chest xray no active pulmonary disease. Normal heart. * CT of the brain: Mild atrophy. No acute intercurrent laterality. No change compared to old exam. * CT chest: No evidence of pulmonary embolism. Cardiomegaly and pulmonary edema that could be developing an RDS or congestive heart failure. Pulmonary edema appears new compared to old exam. Mild aneurysm of the ascending aorta. No dissection. * Laboratory data: WBC 11.1. Hemoglobin 12.3. Platelet counts 400. D-dimer 0.72. Sodium 143. Potassium 4.2. BUN 8. Creatinine 0.58. Troponin negative 3. ProBNP 595. * Current home cardiac medications include Lasix 40 mg twice a day * Most recent echocardiogram obtained in May 2022 revealed ejection fraction 30% 10/27/2022 Patient examined at the bedside. Patient is more awake today. Patient currently denies chest pain or pressure. She denies shortness of breath. Blood pressure is elevated with a systolic in the 160s. Repeat EKG obtained with no evidence of ischemia. 10/28/2022 Patient examined this morning at the bedside. Patient denies chest pain or pressure. Denies SOB. Blood pressure improved today. Echocardiogram completed revealing ejection fraction 40%. PHYSICAL EXAM: VITAL SIGNS: Reviewed. GENERAL: Well-developed in no acute distress. HEENT: Head is normocephalic. Pupils are equal, round. Sclerae anicteric. Mucous membranes of the mouth are moist. Neck supple. No JVD or thyromegaly LUNGS: Respirations even and unlabored. Lungs essentially clear to auscultation bilaterally. HEART: Regular rate and rhythm. S1 and S2 heard. ABDOMEN: Soft. Nondistended. Nontender. EXTREMITIES: Normal range of motion. No clubbing or cyanosis. Peripheral pulses intact. Trace bilateral lower extremity edema NEUROLOGIC: Awake and alert. Oriented x 3. ASSESSMENT: Chest pain, troponin negative x 3 Altered mental status Coronary artery disease with previous CABG x 3 vessel, September 2021 Ischemic cardiomyopathy, ejection fraction 40% Chronic congestive heart failure with reduced ejection fraction, currently euvolemic COPD Hypertension Hyperlipidemia Fibromyalgia PLAN: Continue current cardiac medications Patient stable for discharge from a cardiac standpoint We will sign off. Please reconsult if needed Nurse practitioner note has been reviewed by physician. Signing provider agrees with the documented findings, assessment, and plan of care. Objective - Vital Signs Vital signs: Vital Signs Temp 97.5 F L 10/28/22 07:18 Pulse 84 10/28/22 11:36 Resp 18 10/28/22 07:18 BP 105/75 10/28/22 07:18 Pulse Ox 95 10/28/22 08:20 FiO2 Intake & Output 10/27/22 10/28/22 10/28/22 18:59 06:59 18:59 Intake Total 600 Balance 600 Intake: Oral 600 Other: Voiding Method Toilet Toilet Diaper Diaper # Voids 2 3 1 - Labs CBC & Chem 7: 10/28/22 04:52 10/28/22 04:52 Labs: Abnormal Lab Results - Last 24 Hours (Table) 10/27/22 10/27/22 10/27/22 Range/Units 12:07 17:21 20:29 RBC (4.10-5.20) X 10*6/uL MCH (27.0-32.0) pg MCHC (32.0-37.0) g/dL RDW (11.5-14.5) % Monocytes # (0.20-1.00) X 10*3/uL Eosinophils # (0.04-0.35) X 10*3/uL BUN/Creatinine Ratio (12.00-20.00) Ratio Glucose (70-110) mg/dL POC Glucose (mg/dL) 119 H 151 H 247 H (70-110) mg/dL Albumin/Globulin Ratio (1.60-3.17) g/dL 10/28/22 10/28/22 10/28/22 Range/Units 04:52 04:52 07:18 RBC 5.27 H (4.10-5.20) X 10*6/uL MCH 24.1 L (27.0-32.0) pg MCHC 29.7 L (32.0-37.0) g/dL RDW 18.6 H (11.5-14.5) % Monocytes # 0.06 L (0.20-1.00) X 10*3/uL Eosinophils # 0 L (0.04-0.35) X 10*3/uL BUN/Creatinine Ratio 22.47 H (12.00-20.00) Ratio Glucose 280 H (70-110) mg/dL POC Glucose (mg/dL) 332 H (70-110) mg/dL Albumin/Globulin Ratio 1.39 L (1.60-3.17) g/dL 10/28/22 Range/Units 11:09 RBC (4.10-5.20) X 10*6/uL MCH (27.0-32.0) pg MCHC (32.0-37.0) g/dL RDW (11.5-14.5) % Monocytes # (0.20-1.00) X 10*3/uL Eosinophils # (0.04-0.35) X 10*3/uL BUN/Creatinine Ratio (12.00-20.00) Ratio Glucose (70-110) mg/dL POC Glucose (mg/dL) 431 H (70-110) mg/dL Albumin/Globulin Ratio (1.60-3.17) g/dL
[2022-10-28 13:15] VITALS: BP 109/67; PULSE 107; TEMP 98.6
--- NOTE | 2022-10-28 15:38 | P.PN ---
Subjective Progress Note Date: 10/28/22 72-year-old female patient with known history of COPD a previous tobacco smoker and a daily marijuana smoker who came into the hospital because of chest discomfort and pain as the patient was having pain and discomfort upon taking a deep breath. At the same time, she had a congestive cough. Minimal amount of sputum production. She is known to have CAD and previous bypass surgery. She is also known to have diabetes mellitus, hyperlipidemia, fibromyalgia, obstructive sleep apnea, osteoarthritis and previous history of polysubstance abuse. During this current hospitalization, chest x-ray was done that showed no acute abnormalities. CAT scan of the head showed mild atrophy without any acute abnormalities. CAT scan of the chest showed some limited infiltration and interstitial changes bilaterally more so on the lung base. Urine drug screen was positive for opiates, benzodiazepine and marijuana. ProBNP level was 595 and the troponins were negative. The patient did have also an episode of agitation or restlessness requiring Haldol during this current hospitalization. She is currently on room air oxygen. Echocardiogram was done and results are still pending for now. The WBC count is at 11 with a hemoglobin of 12.3 and a platelet count of 400. Sodium is at 143 with a bicarb of 24 BUN of 8 creatinine of 0.58. Hemoglobin A1c is at 7.6. On today's evaluation, the patient is improving. Less short of breath. No significant bronchospasm wheezing. She feels that she is good to go home. No other new complaints otherwise for now. She remains on examination bronchodilators and steroids. She is on room air oxygen.Labs from today shows WBC count of 6.6 with a hemoglobin 12.7, sodium is at 139, BUN is at 18 with a creatinine of 0.8. Sugars at 431. Objective - Vital Signs Vital signs: Vital Signs Temp 98.6 F 10/28/22 13:00 Pulse 107 H 10/28/22 13:00 Resp 18 10/28/22 13:00 BP 109/67 10/28/22 13:00 Pulse Ox 97 10/28/22 13:00 FiO2 Intake & Output 10/27/22 10/28/22 10/28/22 18:59 06:59 18:59 Intake Total 600 Balance 600 Intake: Oral 600 Other: Voiding Method Toilet Toilet Diaper Diaper # Voids 2 3 1 - Exam Gen. appearance the patient is calm and comfortable no acute distress The patient appeared well nourished and normally developed. Vital signs as documented. Head exam is unremarkable. No scleral icterus or corneal arcus noted. Neck is without jugular venous distension, thyromegaly, or carotid bruits. Carotid upstrokes are brisk bilaterally. Lungs are diminished breath sounds bilaterally along with diffuse expiratory wheezes and lower lung powers and the patient has scattered WHEEZE especially upon forceful expiratory maneuvers. Cardiac exam reveals the PMI to be normally sized and situated. Rhythm is regular. First and second heart sounds normal. No murmurs, rubs or gallops. Abdominal exam reveals normal bowel sounds, no masses, no organomegaly and no aortic enlargement. Extremities are nonedematous and both femoral and pedal pulses are normal.Examination of the skin revealed no evidence of significant rashes, suspicious appearing nevi or other concerning lesions.Neurologically, the patient is awake and alert and the patient does not have any focal neurological deficit. Cranial nerves are essentially intact. - Labs CBC & Chem 7: 10/28/22 04:52 10/28/22 04:52 Labs: Abnormal Lab Results - Last 24 Hours (Table) 10/27/22 10/27/22 10/28/22 Range/Units 17:21 20:29 04:52 RBC 5.27 H (4.10-5.20) X 10*6/uL MCH 24.1 L (27.0-32.0) pg MCHC 29.7 L (32.0-37.0) g/dL RDW 18.6 H (11.5-14.5) % Monocytes # 0.06 L (0.20-1.00) X 10*3/uL Eosinophils # 0 L (0.04-0.35) X 10*3/uL BUN/Creatinine Ratio (12.00-20.00) Ratio Glucose (70-110) mg/dL POC Glucose (mg/dL) 151 H 247 H (70-110) mg/dL Albumin/Globulin Ratio (1.60-3.17) g/dL 10/28/22 10/28/22 10/28/22 Range/Units 04:52 07:18 11:09 RBC (4.10-5.20) X 10*6/uL MCH (27.0-32.0) pg MCHC (32.0-37.0) g/dL RDW (11.5-14.5) % Monocytes # (0.20-1.00) X 10*3/uL Eosinophils # (0.04-0.35) X 10*3/uL BUN/Creatinine Ratio 22.47 H (12.00-20.00) Ratio Glucose 280 H (70-110) mg/dL POC Glucose (mg/dL) 332 H 431 H (70-110) mg/dL Albumin/Globulin Ratio 1.39 L (1.60-3.17) g/dL Assessment and Plan Plan: Acute exacerbation of COPD with possible viral versus chemical pneumonitis. Patient has some vague bilateral pulmonary infiltrates based on the CAT scan of the chest. Chest pain secondary to above Chronic marijuana smoking Coronary artery disease with previous CABG x 3 vessel, September 2021 Ischemic cardiomyopathy, ejection fraction 30% Chronic congestive heart failure with reduced ejection fraction, currently euvolemic COPD Hypertension Hyperlipidemia Fibromyalgia Plan Clinically improving Patient has developed some steroid-induced hyperglycemia. I'm going to discontinue the IV Solu-Medrol and started on a prednisone burst taper. The viral screen came back negative Monitor the blood sugar control any form of steroid-induced hyperglycemia Smoking cessation counseling was done Outpatient PFT Possible discharge either today or within next 24 hours
[2022-10-29] MEDS ORDERED: predniSONE 20 MG TAB PO SCH (09:00)
== END 2022-10-28 17:16 | disposition home or self-care (01) | DRG 313 ==
LOC: EC 18:49 → OBSVTOIN 21:43 → 6NMEDSUR 21:43 → 2CATHESU 10-26 07:22 → 6NMEDSUR 10-26 08:13 → 5NMEDONC 10-26 16:30
PROVIDERS: ADMIT Internal Medicine; ATTEND Internal Medicine
DX: R07.9 Chest pain, unspecified (principal); I50.22 Chronic systolic (congestive) heart failure; J44.1 Chronic obstructive pulmonary disease with (acute) exacerbation; J68.0 Bronchitis and pneumonitis due to chemicals, gases, fumes and vapors; I25.10 Atherosclerotic heart disease of native coronary artery without angina pectoris; M79.7 Fibromyalgia; G47.33 Obstructive sleep apnea (adult) (pediatric); M19.90 Unspecified osteoarthritis, unspecified site; F12.10 Cannabis abuse, uncomplicated; E09.65 Drug or chemical induced diabetes mellitus with hyperglycemia; T38.0X5A Adverse effect of glucocorticoids and synthetic analogues, initial encounter; E78.5 Hyperlipidemia, unspecified; I11.0 Hypertensive heart disease with heart failure; I25.5 Ischemic cardiomyopathy; J30.2 Other seasonal allergic rhinitis; R79.89 Other specified abnormal findings of blood chemistry; I71.21 Aneurysm of the ascending aorta, without rupture; Z20.822 Contact with and (suspected) exposure to COVID-19; Z79.4 Long term (current) use of insulin; Z95.1 Presence of aortocoronary bypass graft; Z87.891 Personal history of nicotine dependence; F11.10 Opioid abuse, uncomplicated; G31.89 Other specified degenerative diseases of nervous system; Z88.2 Allergy status to sulfonamides; Z88.1 Allergy status to other antibiotic agents; Z87.19 Personal history of other diseases of the digestive system; Z79.899 Other long term (current) drug therapy; X58.XXXA Exposure to other specified factors, initial encounter
CPT/HCPCS: 36415; 70450; 71046; 71275; 80053; 80061; 80306; 83036; 83735; 83880; 84484; 85025; 85379; 85610; 85730; 87636; 93005; 93308; 94640; 94760; 96372; 96374; 96375; 96376; 99285

== ENCOUNTER 2023-01-12 19:45 | Observation (INO) | payer MEDICARE, OTHER ==
[2023-01-12] MEDS ORDERED: ASPIRIN 81 MG PO STA (20:02)
--- NOTE | 2023-01-12 20:05 | ED ---
Chest Pain HPI - General Chief Complaint: Chest Pain Stated Complaint: Chest Pain Time Seen by Provider: 01/12/23 19:58 Source: patient Mode of arrival: ambulatory Limitations: no limitations - History of Present Illness Initial Comments: Patient is a 72-year-old female presenting with chief complaint of chest pain. Patient states that the pain started today, states that she gets intermittent squeezing pain in the center of the chest that lasts for about a minute. Pain is accompanied by shortness of breath. No pain currently. Patient is also complaining of back pain and "sciatic nerve pain". She denies any falls or injuries. No loss of bowel or bladder control or saddle paresthesia. No nausea or vomiting. No radiation of pain down the arms or up the neck. No fevers or chills. Patient does state that she has had a cold recently. - Related Data Home Medications Medication Instructions Recorded Confirmed traMADol HCl [Ultram] 100 mg PO BID PRN 11/04/15 01/12/23 Baclofen 10 mg PO TID PRN 09/14/16 01/12/23 Ergocalciferol (Vitamin D2) 1,250 mcg PO MO 09/07/22 01/12/23 [Drisdol (50,000 Iu)] Insulin Detemir (Levemir) [Levemir] 10 unit SQ DAILY 09/07/22 01/12/23 Furosemide [Lasix] 40 mg PO BID 10/26/22 01/12/23 Aspirin EC [Ecotrin Low Dose] 81 mg PO DAILY 12/10/22 01/12/23 Insulin Glargine/Lixisenatide 15 units SQ AC-BRKFST 01/12/23 01/12/23 [Soliqua 100 Unit-33 Mcg/ml Pen] Previous Rx's Medication Instructions Recorded lisinopriL [Zestril] 5 mg PO DAILY tab 10/28/22 Atorvastatin [Lipitor] 80 mg PO HS tab 12/14/22 Ciprofloxacin HCl [Cipro] 250 mg PO BID 4 Days #8 tab 12/14/22 Clopidogrel [Plavix] 75 mg PO DAILY tab 12/14/22 Metoprolol Succinate (ER) [Toprol 25 mg PO DAILY tab 12/14/22 XL] Nitroglycerin Sl Tabs [Nitrostat] 0.4 mg SUBLINGUAL Q5M PRN tab 12/14/22 Allergies Allergy/AdvReac Type Severity Reaction Status Date / Time cephalexin Allergy Anaphylaxis Verified 01/12/23 20:38 cephalexin monohydrate Allergy Anaphylaxis Verified 01/12/23 20:38 [From Keflex] Sulfa (Sulfonamide Allergy Rash/Hives Verified 01/12/23 20:38 Antibiotics) Review of Systems ROS Statement: Those systems with pertinent positive or pertinent negative responses have been documented in the HPI. ROS Other: All systems not noted in ROS Statement are negative. EKG Findings - EKG Comments: EKG Findings:: Sinus rhythm, left axis deviation. Left bundle branch block. Ventricular rate 98. MT interval 124. QRS 147. QT 402. QTC 458. 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 Poly substance abuse 07/19/21 admitted for Acute delirium History of Any Multi-Drug Resistant Organisms: None Reported Past Surgical History: Cholecystectomy, Coronary Bypass/CABG, Hernia Repair, Orthopedic Surgery, Tonsillectomy, Tubal Ligation Additional Past Surgical History / Comment(s): LEFT KNEE ARTHROSCOPY, BMT AND MYRINGOPLASTY, umbilical hernia repair, CABG 2020 Past Anesthesia/Blood Transfusion Reactions: No Reported Reaction Additional Past Anesthesia/Blood Transfusion Reaction / Comment(s): STATES AFTER LAST EAR SX (11/2013) HAD SORE MUSCLES AND WAS WEAK FOR 3-4 DAYS Past Psychological History: Unable to Obtain Smoking Status: Former smoker Past Alcohol Use History: None Reported Past Drug Use History: None Reported - Past Family History Sister(s) Family Medical History: Cancer Brother(s) Family Medical History: Cancer Additional Family Medical History / Comment(s): brother had heart valve replacement Mother Family Medical History: Chest Pain / Angina, Diabetes Mellitus, Hypertension Father History Unknown: Yes Additional Family Medical History / Comment(s): , "had bad lungs" per patient, was a smoker General Exam Limitations: no limitations General appearance: alert, in no apparent distress Head exam: Present: atraumatic, normocephalic, normal inspection Eye exam: Present: normal appearance Neck exam: Present: normal inspection, full ROM Respiratory exam: Present: normal lung sounds bilaterally. Absent: respiratory distress, wheezes, rales, rhonchi, stridor Cardiovascular Exam: Present: regular rate, normal rhythm, normal heart sounds. Absent: systolic murmur, diastolic murmur, rubs, gallop, clicks Extremities exam: Present: full ROM, pedal edema Back exam: Present: normal inspection Neurological exam: Present: alert, oriented X3, CN II-XII intact Psychiatric exam: Present: normal affect, normal mood Skin exam: Present: warm, dry, intact, normal color. Absent: rash Course Vital Signs 01/12/23 01/12/23 01/12/23 19:51 20:10 21:00 Temperature 97.3 F L Pulse Rate 70 96 Respiratory 20 30 H 22 Rate Blood Pressure 109/80 118/70 O2 Sat by Pulse 98 97 Oximetry 01/12/23 01/12/23 22:11 23:10 Temperature 98.8 F Pulse Rate 98 92 Respiratory 20 20 Rate Blood Pressure 112/76 122/70 O2 Sat by Pulse 96 96 Oximetry Chest Pain MDM - MDM Was pt. sent in by a medical professional or institution (BRYN Cerda, TRANSPLANT IMMUNOLOGIST, urgent care, hospital, or jail...) When possible be specific @ -No Did you speak to anyone other than the patient for history (EMS, parent, family, police, friend...)? What history was obtained from this source @ -No Did you review nursing and triage notes (agree or disagree)? Why? @ -I reviewed and agree with nursing and triage notes Were old charts reviewed (outside hosp., previous admission, EMS record, old EKG, old radiological studies, urgent care reports/EKG's, jail records)? Report findings @ -Previous EKG reviewed Differential Diagnosis (chest pain, altered mental status, abdominal pain women, abdominal pain men, vaginal bleeding, weakness, fever, dyspnea, syncope, headache, dizziness, GI bleed, back pain, seizure, CVA, palpatations, mental health, musculoskeletal)? @ -MDM Differential Chest Pain: Stable Angina, Unstable Angina, STEMI, NSTEMI Aortic Dissection, Pneumothorax, Musculoskeletal, Esophageal Spasm GERD, Cholecystitis, Pancreatitis, Zoster This is not meant to be an all-inclusive list. EKG interpreted by me (3pts min.). @ -As above X-rays interpreted by me (1pt min.). @ -No acute process CT interpreted by me (1pt min.). @ -None done U/S interpreted by me (1pt. min.). @ -None done What testing was considered but not performed or refused? (CT, X-rays, U/S, labs)? Why? @ -None What meds were considered but not given or refused? Why? @ -None Did you discuss the management of the patient with other professionals (florencio enrique i.e. , PA, TRANSPLANT IMMUNOLOGIST, lab, RT, psych nurse, social media sr strategy manager, commissions analyst, teacher, field crop technical officer, major case detective)? Give summary @ -No Was smoking cessation discussed for >3mins.? @ -No Was critical care preformed (if so, how long)? @ -No Were there social determinants of health that impacted care today? How? (Homelessness, low income, unemployed, alcoholism, drug addiction, transportation, low edu. Level, literacy, decrease access to med. care, long term, rehab)? @ -No Was there de-escalation of care discussed even if they declined (Discuss DNR or withdrawal of care, Hospice)? DNR status @ -No What co-morbidities impacted this encounter? (DM, HTN, Smoking, COPD, CAD, Cancer, CVA, ARF, Chemo, Hep., AIDS, mental health diagnosis, sleep apnea, morbid obesity)? @ -CAD, COPD, diabetes, hypertension, hyperlipidemia Was patient admitted / discharged? Hospital course, mention meds given and route, prescriptions, significant lab abnormalities, going to OR and other pertinent info. @ -Patient is a 72-year-old female presenting with chief complaint of intermittent chest pain and difficulty breathing throughout the day. At time of evaluation patient is denying chest pain or difficulty breathing. She is complaining of lower back pain which she has had in the past as well as her restless leg syndrome. Physical examination is unremarkable. Lab work shows negative troponin and BNP 371. Chest x-ray shows no acute process. EKG shows no changes from previous EKG. given that the patient is not having any active chest pain or shortness of breath and her vital signs are stable my suspicion for pulmonary embolism is low. Patient will be admitted for observation. I spoke with Dr. Rodríguez who accepted admission. Patient is agreeable with this plan. I discussed with my attending Dr. Grossman Undiagnosed new problem with uncertain prognosis? @ -No Drug Therapy requiring intensive monitoring for toxicity (Heparin, Nitro, Insulin, Cardizem)? @ -No Were any procedures done? @ -No Diagnosis/symptom? @ -Chest pain Acute, or Chronic, or Acute on Chronic? @ -Acute Uncomplicated (without systemic symptoms) or Complicated (systemic symptoms)? @ -Complicated Side effects of treatment? @ -No Exacerbation, Progression, or Severe Exacerbation? @ -No Poses a threat to life or bodily function? How? (Chest pain, USA, MT, pneumonia, PE, COPD, DKA, ARF, appy, cholecystitis, CVA, Diverticulitis, Homicidal, Suicidal, threat to staff... and all critical care pts) @ -Yes Disposition Clinical Impression: Chest pain Disposition: ADMITTED IP TO THIS HOSP Condition: Fair Time of Disposition: 22:22
[2023-01-12] MEDS ORDERED: traMADol 50 MG TAB PO STA (20:38)
[2023-01-12] MEDS ORDERED: LORazepam 2 MG/ML INJ IV STA (20:39)
[2023-01-12 20:47] LABS: Basophils % (A) 0 %; Eosinophils # (A) 0.4 k/uL (0-0.7); Eosinophils % (A) 5 %; HCT 33.5 % (34.0-46.0); HGB 10.8 gm/dL (11.4-16.0); Hypochromasia Slight; Lymphocytes # (A) 2.9 k/uL (1.0-4.8); Lymphocytes % (A) 34 %; MCH 24.8 pg (25.0-35.0); MCHC 32.3 g/dL (31.0-37.0); MCV 76.7 fL (80.0-100.0); Microcytosis Slight; Monocytes # (A) 0.4 k/uL (0-1.0); Monocytes % (A) 5 %; Neutrophils # (A) 4.6 k/uL (1.3-7.7); Neutrophils % (A) 54 %; Platelet Count 428 k/uL (150-450); Poikilocytosis Slight; RBC 4.37 m/uL (3.80-5.40); RDW 15.8 % (11.5-15.5); WBC 8.5 k/uL (3.8-10.6)
[2023-01-12 21:02] LABS: ALT 30 U/L (4-34); AST 23 U/L (14-36); African American GFR (CKD) >90 (>60 ml/min/1.73 sqM); Alkaline Phosphatase 106 U/L (38-126); Anion Gap 9 mmol/L; Blood Urea Nitrogen 11 mg/dL (7-17); Calcium 8.7 mg/dL (8.4-10.2); Carbon Dioxide 29 mmol/L (22-30); Chloride 96 mmol/L (98-107); Glucose 116 mg/dL (74-99); Magnesium 1.7 mg/dL (1.6-2.3); Non-African American GFR(CKD) 88 (>60 ml/min/1.73 sqM); Sodium 134 mmol/L (137-145); Total Bilirubin 0.3 mg/dL (0.2-1.3); Total Protein 7.1 g/dL (6.3-8.2)
[2023-01-12 21:06] LABS: Appearance,Urine Clear (Clear); Bilirubin,Urine Negative (Negative); Blood,Urine Negative (Negative); Color,Urine Yellow; Glucose,Urine (UA) Negative (Negative); Ketones,Urine Negative (Negative); Leukocyte Esterase,Urine Negative (Negative); Nitrite,Urine Negative (Negative); PH, Urine 5.5 (5.0-8.0); Protein,Urine Trace (Negative)
[2023-01-12 21:10] LABS: INR 0.9 (<1.2); Partial Thromboplastin Time 25.2 sec (22.0-30.0)
--- NOTE | 2023-01-12 21:41 | XR ---
EXAMINATION TYPE: XR chest 2V DATE OF EXAM: 01/12/2023 COMPARISON: 12/09/2022 HISTORY: Chest pain TECHNIQUE: 2 views FINDINGS: There is no heart failure nor confluent pneumonic infiltrate. There are sternal wires. Cost ophrenic angles are clear. Bony thorax is intact. IMPRESSION: No active cardiopulmonary disease. No change.
[2023-01-12] MEDS ORDERED: NALOXONE 0.4 MG/ML 1 ML VIAL IV PRN (22:27)
[2023-01-12] MEDS ORDERED: traMADol 50 MG TAB PO PRN (22:27)
[2023-01-12] MEDS ORDERED: ALPRAZolam 0.25 MG TAB PO PRN (22:27)
[2023-01-13] MEDS ORDERED: BACLOFEN 10 MG TAB PO PRN (08:29)
[2023-01-13] MEDS ORDERED: NITROGLYCERIN SL TABS 0.4 MG TAB SUBLINGUAL PRN (08:29)
[2023-01-13] MEDS ORDERED: traMADol 50 MG TAB PO PRN (08:29)
--- NOTE | 2023-01-13 08:29 | P.HPIM ---
History of Present Illness H&P Date: 01/13/23 Mark Moore, is a 72-year-old female who presented to [facility] emergency room with a chief complaint of chest pain, patient describes multiple episodes of lower sternal pain that feels like squeezing, episodes of pain last 1-2 minutes and resolved spontaneously. Patient also had shortness of breath, no radiation of the pain no diaphoresis no nausea or vomiting. She was evaluated in the emergency room vital examination on presentation revealed a temperature of 97.3 pulse 70 respiration 20 blood pressure 109/80 pulse ox 98% on room air Laboratory data revealed a white blood count of 8.5 hemoglobin 10.8 platelet count 428 sodium 134 potassium 4.0 chloride 96 CO2 29 BUN 11 creatinine 0.67 troponin level less than 0.012 Testing in the emergency room revealed EKG done in the emergency room revealed sinus rhythm with left axis deviation and left bundle branch block, chest x-ray done in the emergency room, revealed no active cardiopulmonary disease no change. Patient was admitted to medical floor for further evaluation and treatment Past medical history is significant for history of coronary artery disease with history of coronary artery bypass graft surgery, history of hypertension, history of hyperlipidemia, history of chronic obstructive pulmonary disease, and history of obstructive sleep apnea. On review of systems there is no fever or chills no headache or dizziness no chest pain at this time no shortness of breath no cough no nausea or vomiting no abdominal pain no diarrhea no blood in the stools no burning with urination no frequency or urgency and no hematuria Past Medical History Past Medical History: Asthma, Coronary Artery Disease (CAD), Heart Failure, COPD, Diabetes Mellitus, Fibromyalgia, Hyperlipidemia, Hypertension, Musculoskeletal Disorder, Osteoarthritis (OA), Sleep Apnea/CPAP/BIPAP Additional Past Medical History / Comment(s): TESTED POSITIVE FOR LUPUS (STATES NO SYMPTOMS), DOES NOT USE CPAP, SEASONAL ALLERGIES, STATES 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 Poly substance abuse 07/19/21 admitted for Acute delirium History of Any Multi-Drug Resistant Organisms: None Reported Past Surgical History: Cholecystectomy, Coronary Bypass/CABG, Hernia Repair, Orthopedic Surgery, Tonsillectomy, Tubal Ligation Additional Past Surgical History / Comment(s): LEFT KNEE ARTHROSCOPY, BMT AND MYRINGOPLASTY, umbilical hernia repair, CABG 2020 Past Anesthesia/Blood Transfusion Reactions: No Reported Reaction Additional Past Anesthesia/Blood Transfusion Reaction / Comment(s): STATES AFTER LAST EAR SX (11/2013) HAD SORE MUSCLES AND WAS WEAK FOR 3-4 DAYS Past Psychological History: Unable to Obtain Smoking Status: Former smoker Past Alcohol Use History: None Reported Past Drug Use History: None Reported - Past Family History Sister(s) Family Medical History: Cancer Brother(s) Family Medical History: Cancer Additional Family Medical History / Comment(s): brother had heart valve replacement Mother Family Medical History: Chest Pain / Angina, Diabetes Mellitus, Hypertension Father History Unknown: Yes Additional Family Medical History / Comment(s): , "had bad lungs" per patient, was a smoker Medications and Allergies Home Medications Medication Instructions Recorded Confirmed Type traMADol HCl [Ultram] 100 mg PO BID PRN 11/04/15 01/12/23 History Baclofen 10 mg PO TID PRN 09/14/16 01/12/23 History Ergocalciferol (Vitamin D2) 1,250 mcg PO MO 09/07/22 01/12/23 History [Drisdol (50,000 Iu)] Insulin Detemir (Levemir) [Levemir] 10 unit SQ DAILY 09/07/22 01/12/23 History Furosemide [Lasix] 40 mg PO BID 10/26/22 01/12/23 History lisinopriL [Zestril] 5 mg PO DAILY tab 10/28/22 01/12/23 Rx Aspirin EC [Ecotrin Low Dose] 81 mg PO DAILY 12/10/22 01/12/23 History Atorvastatin [Lipitor] 80 mg PO HS tab 12/14/22 01/12/23 Rx Ciprofloxacin HCl [Cipro] 250 mg PO BID 4 Days #8 tab 12/14/22 01/12/23 Rx Clopidogrel [Plavix] 75 mg PO DAILY tab 12/14/22 01/12/23 Rx Metoprolol Succinate (ER) [Toprol 25 mg PO DAILY tab 12/14/22 01/12/23 Rx XL] Nitroglycerin Sl Tabs [Nitrostat] 0.4 mg SUBLINGUAL Q5M PRN tab 12/14/22 01/12/23 Rx Insulin Glargine/Lixisenatide 15 units SQ AC-BRKFST 01/12/23 01/12/23 History [Soliqua 100 Unit-33 Mcg/ml Pen] Allergies Allergy/AdvReac Type Severity Reaction Status Date / Time cephalexin Allergy Anaphylaxis Verified 01/12/23 20:38 cephalexin monohydrate Allergy Anaphylaxis Verified 01/12/23 20:38 [From Keflex] Sulfa (Sulfonamide Allergy Rash/Hives Verified 01/12/23 20:38 Antibiotics) Physical Exam Vitals: Vital Signs Temp Pulse Resp BP Pulse Ox 01/12/23 23:10 92 20 122/70 96 01/12/23 22:11 98.8 F 98 20 112/76 96 01/12/23 21:00 96 22 118/70 97 01/12/23 20:10 30 H 01/12/23 19:51 97.3 F L 70 20 109/80 98 Intake and Output 01/12/23 01/13/23 01/13/23 22:59 06:59 14:59 Other: Weight 90.718 kg In general patient is alert and oriented x 3 in no distress HEENT head normocephalic and atraumatic Neck is supple no JVD no goiter no lymphadenopathy no carotid bruit Chest examination is clear to auscultation no crackles no wheezing Cardiac exam reveals regular heart sounds S1 and S2 no gallops no murmurs Abdomen is soft nontender no organomegaly with normal bowel sounds Extremity exam reveals no edema no cyanosis or clubbing Neurological examination reveals no gross focal deficits Results CBC & Chem 7: 01/12/23 20:14 01/12/23 20:14 Labs: Abnormal Lab Results - Last 24 Hours (Table) 01/12/23 01/12/23 01/12/23 Range/Units 20:14 20:14 20:14 Hgb 10.8 L (11.4-16.0) gm/dL Hct 33.5 L (34.0-46.0) % MCV 76.7 L (80.0-100.0) fL MCH 24.8 L (25.0-35.0) pg RDW 15.8 H (11.5-15.5) % Sodium 134 L (137-145) mmol/L Chloride 96 L (98-107) mmol/L Glucose 116 H (74-99) mg/dL Urine Protein Trace H (Negative) Assessment and Plan Plan: Episode of chest pain Underlying history of coronary artery disease was history of coronary artery bypass graft surgery Anemia on presentation will check iron and vitamin B12 and folate level Underlying history of hypertension Underlying history of hyperlipidemia Underlying history of insulin-dependent diabetes mellitus Underlying history of COPD Underlying history of chronic low back pain Underlying history of obstructive sleep apnea. At this time patient is admitted to telemetry floor Serial EKG and cardiac enzymes are ordered Cardiology consultation was requested Will check d-dimer Will follow closely
[2023-01-13] MEDS ORDERED: DEXTROSE 50% SYRINGE 50 ML IVP PRN ×2 (08:50)
[2023-01-13] MEDS ORDERED: HYDROcodone/APAP 7.5-325MG 1 EACH TAB PO PRN (08:54)
[2023-01-13] MEDS: ASPIRIN 81 MG PO SCH (09:11)
[2023-01-13] MEDS: CLOPIDOGREL 75 MG TAB PO SCH (09:11)
[2023-01-13] MEDS: lisinopriL 5 MG TAB PO SCH (09:11)
[2023-01-13] MEDS: FUROSEMIDE 40 MG TAB PO SCH ×2 (09:11→15:29)
[2023-01-13] MEDS: METOPROLOL SUCCINATE (ER) 25 MG TAB.ER.24H PO SCH (09:11)
[2023-01-13] MEDS: ENOXAPARIN 40 MG/0.4 ML SYRINGE SQ SCH (09:11)
[2023-01-13 09:23] LABS: Glucose,Whole Blood 217 mg/dL (70-110)
[2023-01-13] MEDS: INSULIN DETEMIR (LEVEMIR) 100 UNIT/ML SYR SQ SCH (09:23)
[2023-01-13 14:23] LABS: Glucose,Whole Blood 150 mg/dL (70-110)
[2023-01-13] MEDS: INSULIN ASPART (NovoLOG) 100 UNIT/ML VIAL SQ SCH ×3 (14:46→21:14)
--- NOTE | 2023-01-13 15:42 | CT ---
EXAMINATION TYPE: CT angio chest CT DLP: 623 mGycm, Automated exposure control for dose reduction was used. DATE OF EXAM: 01/13/2023 3:32 PM COMPARISON: CTA chest 12/10/2022, chest radiograph 01/12/2023. CLINICAL INDICATION:Female, 72 years old with history of elevated D-Dimer; elevated D-dimer TECHNIQUE/CONTRAST: CTA scan of the thorax is performed with IV Contrast, patient injected with 100 cc mL of Isovue 370, pulmonary embolism protocol. MIP images are created and reviewed. FINDINGS: Pulmonary Artery: There is no evidence for a filling defect within the pulmonary vasculature to sugge st acute pulmonary embolism. The pulmonary artery is of normal size. Lungs/Pleura: No evidence of focal consolidation, pleural effusion or pneumothorax. Stable left upper lobe 4 mm pulmonary nodule (series 11, image 32). Airway: Large airways are patent. Heart: The heart is mildly enlarged for size. No pericardial effusion. Left atrial appendage clip red emonstrated. 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 Atelectatic calci fication of the aorta and its branches. Mediastinum: No gross evidence of adenopathy. Post CABG changes. Musculoskeletal: No acute osseous abnormalities. Median sternotomy wires. Partial ankylosis of the C6 -C7 vertebral bodies. Soft Tissues: Unremarkable. Lower neck: Stable 2.4 cm hypodense right thyroid lobe nodule.. Upper Abdomen: Postcholecystectomy changes.. IMPRESSION: 1. No evidence of pulmonary embolism or acute thoracic process. 2. Stable left upper lobe 4 mm pulmonary nodule. 3. 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 4. Stable 2.4 cm right thyroid lobe hypodense nodule. Consider further evaluation with thyroid ultras ound as clinically indicated.
[2023-01-13 16:31] LABS: % Iron Saturation 5.46 (12.00-45.00); Iron 24 ug/dL (50-170); Total Iron Binding Capacity 440 ug/dL (228-460)
[2023-01-13 16:36] LABS: Vitamin B12 <150.0 pg/mL (200.0-944.0)
[2023-01-13 17:23] LABS: Glucose,Whole Blood 115 mg/dL (70-110)
--- NOTE | 2023-01-13 18:46 | P.CRDCN ---
History of Present Illness Consult date: 01/13/23 Chief complaint: chest pain History of present illness: The patient is a pleasant 72-year-old female patient with a past medical history significant for coronary artery disease as well as diabetes and hypertension and dyslipidemia and ischemic cardiomyopathy presented to the hospital complaining of chest discomfort. As a matter of fact she just was discharged from the hospital in November 2022 after she presented with chest discomfort and u nderwent a heart catheterization which revealed severe triple vessel CAD was patent SIMPSON to LAD and ramus and severe disease involving unprotected right coronary artery which she underwent PCI of the PDA of the right coronary artery with no complication. She was discharged in stable medical condition on dual antiplatelet therapy as well as anti-ischemic medications as well as statin. She described the pain as a dull/sharp kind of discomfort with no radiation to the arms or neck or shoulders or back inhis symptoms of shortness of breath or dizziness or lightheadedness or sweating or any feeling of heart racing or fluttering or presyncope or symptoms. Further investigation was performed inc luding EKG showing sinus rhythm with interventricular conduction delay as well as cardiac enzymes came in to be unremarkable. The chest x-ray did not show any acute abnormalities. Computed tomography scan of the chest showed no pulmonary embolism. On examination she has stable vital signs with a regular systolic murmur at the right upper sternal border with clear breathing sounds bilaterally and no carotid bruit or lower extremity edema noted. Assessment Intermittent episodes of chest discomfort appeared to be somewhat atypical for angina CAD was prior stenting as described above Ischemic cardiomyopathy Hypertension Dyslipidemia Diabetes Multiple comorbid conditions Plan Acute coronary syndrome was ruled out Continue the current medical regimen Add oral nitrates to the current medical regimen She was advised to be watched for additional 24 hours but she would like to go home. 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 Poly substance abuse 07/19/21 admitted for Acute delirium History of Any Multi-Drug Resistant Organisms: None Reported Past Surgical History: Cholecystectomy, Coronary Bypass/CABG, Hernia Repair, Orthopedic Surgery, Tonsillectomy, Tubal Ligation Additional Past Surgical History / Comment(s): LEFT KNEE ARTHROSCOPY, BMT AND MYRINGOPLASTY, umbilical hernia repair, CABG 2020 Past Anesthesia/Blood Transfusion Reactions: No Reported Reaction Additional Past Anesthesia/Blood Transfusion Reaction / Comment(s): STATES AFTER LAST EAR SX (11/2013) HAD SORE MUSCLES AND WAS WEAK FOR 3-4 DAYS Past Psychological History: Unable to Obtain Smoking Status: Former smoker Past Alcohol Use History: None Reported Past Drug Use History: None Reported - Past Family History Sister(s) Family Medical History: Cancer Brother(s) Family Medical History: Cancer Additional Family Medical History / Comment(s): brother had heart valve replacem ent Mother Family Medical History: Chest Pain / Angina, Diabetes Mellitus, Hypertension Father History Unknown: Yes Additional Family Medical History / Comment(s): , "had bad lungs" per patient, was a smoker Medications and Allergies Home Medications Medication Instructions Recorded Confirmed Type traMADol HCl [Ultram] 100 mg PO BID PRN 11/04/15 01/12/23 History Baclofen 10 mg PO TID PRN 09/14/16 01/12/23 History Ergocalciferol (Vitamin D2) 1,250 mcg PO MO 09/07/22 01/12/23 History [Drisdol (50,000 Iu)] Insulin Detemir (Levemir) [Levemir] 10 unit SQ DAILY 09/07/22 01/12/23 History Furosemide [Lasix] 40 mg PO BID 10/26/22 01/12/23 History lisinopriL [Zestril] 5 mg PO DAILY tab 10/28/22 01/12/23 Rx Aspirin EC [Ecotrin Low Dose] 81 mg PO DAILY 12/10/22 01/12/23 History Atorvastatin [Lipitor] 80 mg PO HS tab 12/14/22 01/12/23 Rx Ciprofloxacin HCl [Cipro] 250 mg PO BID 4 Days #8 tab 12/14/22 01/12/23 Rx Clopidogrel [Plavix] 75 mg PO DAILY tab 12/14/22 01/12/23 Rx Metoprolol Succinate (ER) [Toprol 25 mg PO DAILY tab 12/14/22 01/12/23 Rx XL] Nitroglycerin Sl Tabs [Nitrostat] 0.4 mg SUBLINGUAL Q5M PRN tab 12/14/22 01/12/23 Rx Insulin Glargine/Lixisenatide 15 units SQ AC-BRKFST 01/12/23 01/12/23 History [Soliqua 100 Unit-33 Mcg/ml Pen] Allergies Allergy/AdvReac Type Severity Reaction Status Date / Time cephalexin Allergy Anaphylaxis Verified 01/12/23 20:38 cephalexin monohydrate Allergy Anaphylaxis Verified 01/12/23 20:38 [From Keflex] Sulfa (Sulfonamide Allergy Rash/Hives Verified 01/12/23 20:38 Antibiotics) Physical Exam Vitals: Vital Signs Temp Pulse Pulse Resp BP BP Pulse Ox 01/13/23 14:07 88 16 113/71 95 01/13/23 12:51 81 16 107/63 97 01/13/23 09:29 89 18 113/83 98 01/13/23 08:00 100 20 131/85 98 01/12/23 23:10 92 20 122/70 96 01/12/23 22:11 98.8 F 98 20 112/76 96 01/12/23 21:00 96 22 118/70 97 01/12/23 20:10 30 H 01/12/23 19:51 97.3 F L 70 20 109/80 98 Intake and Output 01/13/23 01/13/23 01/13/23 06:59 14:59 22:59 Other: # Voids 1 Weight 90.718 kg Results 01/12/23 20:14 01/12/23 20:14 Cardiac Enzymes 01/12/23 01/12/23 01/12/23 Range/Units 20:14 20:14 23:53 AST 23 (14-36) U/L Troponin I <0.012 0.014 (0.000-0.034) ng/mL 01/13/23 Range/Units 01:39 AST (14-36) U/L Troponin I 0.013 (0.000-0.034) ng/mL Coagulation 01/12/23 Range/Units 20:14 PT 10.0 (9.0-12.0) sec APTT 25.2 (22.0-30.0) sec CBC 01/12/23 Range/Units 20:14 WBC 8.5 (3.8-10.6) k/uL RBC 4.37 (3.80-5.40) m/uL Hgb 10.8 L (11.4-16.0) gm/dL Hct 33.5 L (34.0-46.0) % Plt Count 428 (150-450) k/uL Comprehensive Metabolic Panel 01/12/23 Range/Units 20:14 Sodium 134 L (137-145) mmol/L Potassium 4.0 (3.5-5.1) mmol/L Chloride 96 L (98-107) mmol/L Carbon Dioxide 29 (22-30) mmol/L BUN 11 (7-17) mg/dL Creatinine 0.67 (0.52-1.04) mg/dL Glucose 116 H (74-99) mg/dL Calcium 8.7 (8.4-10.2) mg/dL AST 23 (14-36) U/L ALT 30 (4-34) U/L Alkaline Phosphatase 106 (38-126) U/L Total Protein 7.1 (6.3-8.2) g/dL Albumin 4.0 (3.5-5.0) g/dL Current Medications Generic Name Dose Route Start Last Admin Trade Name Freq PRN Reason Stop Dose Admin Hydrocodone Bitart/Acetaminophen 1 each 01/13/23 08:54 01/13/23 09:24 Hydrocodone/Apap 7.5-325mg 1 Each Tab PO 1 each Q6HR PRN Administration Pain Alprazolam 0.25 mg 01/12/23 22:27 01/12/23 23:06 Alprazolam 0.25 Mg Tab PO 0.25 mg Q6HR PRN Administration Anxiety Aspirin 81 mg 01/13/23 09:00 01/13/23 09:11 Aspirin 81 Mg PO 81 mg DAILY DIMA Administration Atorvastatin Calcium 80 mg 01/13/23 21:00 Atorvastatin 80 Mg Tab PO HS DIMA Baclofen 10 mg 01/13/23 08:29 Baclofen 10 Mg Tab PO TID PRN Muscle Pain Clopidogrel Bisulfate 75 mg 01/13/23 09:00 01/13/23 09:11 Clopidogrel 75 Mg Tab PO 75 mg DAILY DIMA Administration Dextrose/Water 25 ml 01/13/23 08:50 Dextrose 50% Syringe 50 Ml IVP PER PROTOCOL PRN Hypoglycemia Protocol Dextrose/Water 50 ml 01/13/23 08:50 Dextrose 50% Syringe 50 Ml IVP PER PROTOCOL PRN Hypoglycemia Protocol Enoxaparin Sodium 40 mg 01/13/23 09:00 01/13/23 09:11 Enoxaparin 40 Mg/0.4 Ml Syringe SQ 40 mg DAILY DIMA Administration Furosemide 40 mg 01/13/23 09:00 01/13/23 15:29 Furosemide 40 Mg Tab PO 40 mg BID@0900,1600 DIMA Administration Insulin Aspart 0 unit 01/13/23 12:30 01/13/23 17:32 Insulin Aspart (Novolog) 100 Unit/Ml Vial SQ Not Given ACHS [facility] Protocol Insulin Detemir 10 unit 01/13/23 09:00 01/13/23 09:23 Insulin Detemir (Levemir) 100 Unit/Ml Syr SQ 10 unit DAILY@0700 DIMA Administration Lisinopril 5 mg 01/13/23 09:00 01/13/23 09:11 Lisinopril 5 Mg Tab PO 5 mg DAILY DIMA Administration Metoprolol Succinate 25 mg 01/13/23 09:00 01/13/23 09:11 Metoprolol Succinate (Er) 25 Mg Tab.Er.24h PO 25 mg DAILY DIMA Administration Naloxone HCl 0.2 mg 01/12/23 22:27 Naloxone 0.4 Mg/Ml 1 Ml Vial IV Q2M PRN Opioid Reversal Nitroglycerin 0.4 mg 01/13/23 08:29 Nitroglycerin Sl Tabs 0.4 Mg Tab SUBLINGUAL Q5M PRN Chest Pain Tramadol HCl 100 mg 01/13/23 08:29 Tramadol 50 Mg Tab PO BID PRN Pain Intake and Output 01/13/23 01/13/23 01/13/23 06:59 14:59 22:59 Other: # Voids 1 Weight 90.718 kg 01/12/23 20:14 01/12/23 20:14
[2023-01-13 20:42] LABS: Glucose,Whole Blood 211 mg/dL (70-110)
[2023-01-13] MEDS ORDERED: ATORVASTATIN 80 MG TAB PO SCH (21:00)
[2023-01-13] MEDS: ISOSORBIDE MONONITRATE ER 30 MG TAB.ER.24H PO SCH (21:14)
[2023-01-14 06:08] LABS: Glucose,Whole Blood 162 mg/dL (70-110)
[2023-01-14] MEDS: INSULIN ASPART (NovoLOG) 100 UNIT/ML VIAL SQ SCH ×2 (06:29→12:04)
[2023-01-14] MEDS: INSULIN DETEMIR (LEVEMIR) 100 UNIT/ML SYR SQ SCH (06:30)
[2023-01-14 07:08] VITALS: BP 95/63; PULSE 77; RESP 18; TEMP 98
[2023-01-14] MEDS: ASPIRIN 81 MG PO SCH (07:53)
[2023-01-14] MEDS: CLOPIDOGREL 75 MG TAB PO SCH (07:53)
[2023-01-14] MEDS: ENOXAPARIN 40 MG/0.4 ML SYRINGE SQ SCH (07:53)
[2023-01-14] MEDS: lisinopriL 5 MG TAB PO SCH (07:54)
[2023-01-14] MEDS: METOPROLOL SUCCINATE (ER) 25 MG TAB.ER.24H PO SCH (07:54)
[2023-01-14] MEDS: FUROSEMIDE 40 MG TAB PO SCH (07:54)
[2023-01-14] MEDS: ISOSORBIDE MONONITRATE ER 30 MG TAB.ER.24H PO SCH (07:54)
--- NOTE | 2023-01-14 10:34 | P.PN ---
Subjective Progress Note Date: 01/14/23 Principal diagnosis: CP The patient is a pleasant 72-year-old female patient with a past medical history significant for coronary artery disease as well as diabetes and hypertension and dyslipidemia and ischemic cardiomyopathy presented to the hospital complaining of chest discomfort. As a matter of fact she just was discharged from the hospital in November 2022 after she presented with chest discomfort and underwent a heart catheterization which revealed severe triple vessel CAD was patent SIMPSON to LAD and ramus and severe disease involving unprotected right coronary artery which she underwent PCI of the PDA of the right coronary artery with no complication. She was discharged in stable medical condition on dual antiplatelet therapy as well as anti-ischemic medications as well as statin. She described the pain as a dull/sharp kind of discomfort with no radiation to the arms or neck or shoulders or back inhis symptoms of shortness of breath or dizziness or lightheadedness or sweating or any feeling of heart racing or fluttering or presyncope or symptoms. Further investigation was performed including EKG showing sinus rhythm with interventricular conduction delay as well as cardiac enzymes came in to be unremarkable. The chest x-ray did not show any acute abnormalities. Computed tomography scan of the chest showed no pulmonary embolism. On examination she has stable vital signs with a regular systolic murmur at the right upper sternal border with clear breathing sounds bilaterally and no carotid bruit or lower extremity edema noted. January 142022 The patient was seen and evaluated this morning and she has been chest pain- free. Oral nitrate was added to her medication yesterday. The pressure has been marginal. I'm going to decrease the dose of Lasix and decrease the dose of lisinopril and continue the current dose of oral nitrate. I would advise monitor the patient for the next few hours and monitor the blood pressure and heart rate and also get the patient up and around ambulating to see if she develop any chest pain or chest discomfort. If there is no discomfort in the chest and the pressure improved she potentially can be discharged home otherwise we need to decrease the dose of Imdur or replace under with Ranexa if the pre ssure remains low. Assessment Intermittent episodes of chest discomfort appeared to be somewhat atypical for angina CAD was prior stenting as described above Ischemic cardiomyopathy Hypotension Dyslipidemia Diabetes Multiple comorbid conditions Plan The patient up and around to see if she is symptomatic Decrease the dose of Lasix Decrease dose of lisinopril Monitor the patient for the next few hours Consider discharge home if she is asymptomatic and hemodynamically stable Objective - Vital Signs Vital signs: Vital Signs Temp 98 F 01/14/23 07:00 Pulse 77 01/14/23 07:00 Resp 18 01/14/23 07:00 BP 95/63 01/14/23 07:00 Pulse Ox 99 01/14/23 07:00 FiO2 Intake & Output 01/13/23 01/14/23 01/14/23 18:59 06:59 18:59 Intake Total 120 Balance 120 Intake: Oral 120 Other: # Voids 1 1 - Labs CBC & Chem 7: 01/12/23 20:14 01/12/23 20:14 Labs: Abnormal Lab Results - Last 24 Hours (Table) 01/12/23 01/13/23 01/13/23 Range/Units 20:14 08:45 14:21 POC Glucose (mg/dL) 150 H (70-110) mg/dL Hemoglobin A1c 8.8 H (0.0-6.0) % Iron 24 L (50-170) ug/dL % Saturation 5.46 L (12.00-45.00) Vitamin B12 <150.0 L (200.0-944.0) pg/mL 01/13/23 01/13/23 01/14/23 Range/Units 17:22 20:41 06:07 POC Glucose (mg/dL) 115 H 211 H 162 H (70-110) mg/dL Hemoglobin A1c (0.0-6.0) % Iron (50-170) ug/dL % Saturation (12.00-45.00) Vitamin B12 (200.0-944.0) pg/mL
[2023-01-14 11:35] LABS: Glucose,Whole Blood 180 mg/dL (70-110)
--- NOTE | 2023-01-14 12:19 | P.CNPUL ---
History of Present Illness Consult date: 01/14/23 Requesting physician: Surinder Rodríguez Reason for consult: chest pain Chief complaint: Chest pain, shortness of breath History of present illness: This is a pleasant 72-year-old female patient who has a known history of coronary artery disease with previous coronary artery bypass grafting, congestiv e heart failure, diabetes mellitus, fibromyalgia, hypertension, hyperlipidemia, history of drug abuse. She was recently discharged from here one month ago after developing a non-ST segment elevation myocardial infarction and had undergone stenting to the PDA on 12/12/2022. She was also treated for COPD exacerbation at that time. She presented here to the emergency room again 01/12/2023 with complaints of chest pain and shortness of breath. Chest x-ray revealed no acute pulmonary process. Troponins were negative 3. White count 8.5. Hemoglobin 10.8. Platelets 428. Sodium 134. Potassium 4.0. Bicarb 29. BUN 11. Creatinine 0.67. Glucose 116. D-dimer 0.65. CT angiogram ruled out p ulmonary embolism. No evidence of focal consolidation, pleural effusion or pneumothorax. Stable left upper lobe 4 mm pulmonary nodule. He is seen today in consultation on the regular medical floor. Currently sitting up in bed. Awake and alert in no acute distress. Denies any chest pain or shortness of breath today. Feeling back to her baseline. Anxious to go home. She's been maintaining good O2 saturations in the 90s on room air. Afebrile. Hemodynamically stable. Review of Systems REVIEW OF SYSTEMS: CONSTITUTIONAL: Denies any recent significant weight loss or weight gain. EYES: Denies change in vision. EARS, NOSE, MOUTH, THROAT: Denies headaches, denies sore throat. CARDIOVASCULAR: Positive for chest pain, no palpitations or syncopal episodes. RESPIRATORY: Positive for shortness of breath, no cough, congestion or hemoptysis. GASTROINTESTINAL: Denies change in appetite, denies abdominal pain GENITOURINARY: Denies hematuria, denies infections. MUSKULOSKELETAL: Denies pain, denies swelling. INTEGUMENTARY: Denies rash, denies eczema. NEUROLOGICAL: Denies recent memory loss, no recent seizure activity. PSYCHIATRIC: Denies anxiety, denies depression. HEMATOLOGIC/LYMPHATIC: Denies anemia, denies enlarged lymph nodes. 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 Poly substance abuse 07/19/21 admitted for Acute delirium History of Any Multi-Drug Resistant Organisms: None Reported Past Surgical History: Cholecystectomy, Coronary Bypass/CABG, Hernia Repair, Orthopedic Surgery, Tonsillectomy, Tubal Ligation Additional Past Surgical History / Comment(s): LEFT KNEE ARTHROSCOPY, BMT AND MYRINGOPLASTY, umbilical hernia repair, CABG 2020 Past Anesthesia/Blood Transfusion Reactions: No Reported Reaction Additional Past Anesthesia/Blood Transfusion Reaction / Comment(s): STATES AFTER LAST EAR SX (11/2013) HAD SORE MUSCLES AND WAS WEAK FOR 3-4 DAYS Past Psychological History: Unable to Obtain Smoking Status: Former smoker Past Alcohol Use History: None Reported Past Drug Use History: None Reported - Past Family History Sister(s) Family Medical History: Cancer Brother(s) Family Medical History: Cancer Additional Family Medical History / Comment(s): brother had heart valve replacement Mother Family Medical History: Chest Pain / Angina, Diabetes Mellitus, Hypertension Father History Unknown: Yes Additional Family Medical History / Comment(s): , "had bad lungs" per patient, was a smoker Medications and Allergies Home Medications Medication Instructions Recorded Confirmed Type traMADol HCl [Ultram] 100 mg PO BID PRN 11/04/15 01/12/23 History Baclofen 10 mg PO TID PRN 09/14/16 01/12/23 History Ergocalciferol (Vitamin D2) 1,250 mcg PO MO 09/07/22 01/12/23 History [Drisdol (50,000 Iu)] Insulin Detemir (Levemir) [Levemir] 10 unit SQ DAILY 09/07/22 01/12/23 History Furosemide [Lasix] 40 mg PO BID 10/26/22 01/12/23 History lisinopriL [Zestril] 5 mg PO DAILY tab 10/28/22 01/12/23 Rx Aspirin EC [Ecotrin Low Dose] 81 mg PO DAILY 12/10/22 01/12/23 History Atorvastatin [Lipitor] 80 mg PO HS tab 12/14/22 01/12/23 Rx Ciprofloxacin HCl [Cipro] 250 mg PO BID 4 Days #8 tab 12/14/22 01/12/23 Rx Clopidogrel [Plavix] 75 mg PO DAILY tab 12/14/22 01/12/23 Rx Metoprolol Succinate (ER) [Toprol 25 mg PO DAILY tab 12/14/22 01/12/23 Rx XL] Nitroglycerin Sl Tabs [Nitrostat] 0.4 mg SUBLINGUAL Q5M PRN tab 12/14/22 01/12/23 Rx Insulin Glargine/Lixisenatide 15 units SQ AC-BRKFST 01/12/23 01/12/23 History [Soliqua 100 Unit-33 Mcg/ml Pen] Allergies Allergy/AdvReac Type Severity Reaction Status Date / Time cephalexin Allergy Anaphylaxis Verified 01/12/23 20:38 cephalexin monohydrate Allergy Anaphylaxis Verified 01/12/23 20:38 [From Keflex] Sulfa (Sulfonamide Allergy Rash/Hives Verified 01/12/23 20:38 Antibiotics) Physical Exam Vitals: Vital Signs Temp Pulse Pulse Resp BP BP BP 01/14/23 07:00 98 F 77 18 95/63 01/14/23 01:09 98.4 F 95 16 88/62 01/13/23 19:43 98.3 F 90 16 111/71 01/13/23 14:07 88 16 113/71 01/13/23 12:51 81 16 107/63 Pulse Ox 01/14/23 07:00 99 01/14/23 01:09 94 L 01/13/23 19:43 95 01/13/23 14:07 95 01/13/23 12:51 97 Intake and Output 01/13/23 01/14/23 01/14/23 22:59 06:59 14:59 Intake Total 120 Balance 120 Intake: Oral 120 Other: # Voids 1 1 GENERAL EXAM: Alert, 72-year-old female, on room air, comfortable in no apparent distress. HEAD: Normocephalic. EYES: Normal reaction of pupils, equal size. NOSE: Clear with pink turbinates. THROAT: No erythema or exudates. NECK: No masses, no JVD. CHEST: No chest wall deformity. LUNGS: Equal air entry with no crackles, wheeze, rhonchi or dullness. CVS: S1 and S2 normal with no audible murmur, regular rhythm. ABDOMEN: No hepatosplenomegaly, normal bowel sounds, no guarding or rigidity. SPINE: No scoliosis or deformity SKIN: No rashes CENTRAL NERVOUS SYSTEM: No focal deficits, tone is normal in all 4 extremities. EXTREMITIES: There is no peripheral edema. No clubbing, no cyanosis. Peripheral pulses are intact. Results - Laboratory Findings CBC and BMP: 01/12/23 20:14 01/12/23 20:14 PT/INR, D-dimer PT 10.0 sec (9.0-12.0) 01/12/23 20:14 INR 0.9 (<1.2) 01/12/23 20:14 D-Dimer 0.65 mg/L FEU (<0.60) H 01/13/23 08:45 Abnormal lab findings: Abnormal Labs 01/12/23 01/12/23 01/12/23 20:14 20:14 20:14 Hgb 10.8 L Hct 33.5 L MCV 76.7 L MCH 24.8 L RDW 15.8 H D-Dimer Sodium 134 L Chloride 96 L Glucose 116 H POC Glucose (mg/dL) Hemoglobin A1c Iron % Saturation Vitamin B12 Urine Protein Trace H 01/12/23 01/13/23 01/13/23 20:14 08:45 08:45 Hgb Hct MCV MCH RDW D-Dimer 0.65 H Sodium Chloride Glucose POC Glucose (mg/dL) Hemoglobin A1c 8.8 H Iron 24 L % Saturation 5.46 L Vitamin B12 <150.0 L Urine Protein 01/13/23 01/13/23 01/13/23 09:22 14:21 17:22 Hgb Hct MCV MCH RDW D-Dimer Sodium Chloride Glucose POC Glucose (mg/dL) 217 H 150 H 115 H Hemoglobin A1c Iron % Saturation Vitamin B12 Urine Protein 01/13/23 01/14/23 01/14/23 20:41 06:07 11:31 Hgb Hct MCV MCH RDW D-Dimer Sodium Chloride Glucose POC Glucose (mg/dL) 211 H 162 H 180 H Hemoglobin A1c Iron % Saturation Vitamin B12 Urine Protein - Diagnostic Findings Chest x-ray: image reviewed CT scan - chest: image reviewed Assessment and Plan Assessment: Atypical chest pain, acute coronary syndrome ruled out Recent admission for non-ST segment elevation myocardial infarction in November 2022, status post stenting to the PDA COPD currently inactive and stable Stable left upper lobe 4 mm pulmonary nodule Chronic marijuana smoking Coronary artery disease with previous CABG x 3 vessel, September 2021 Ischemic cardiomyopathy, ejection fraction 40% Chronic congestive heart failure with reduced ejection fraction, Hypertension Hyperlipidemia Fibromyalgia Thyroid nodule, right-sided IV drug abuse Plan: The patient was seen and evaluated Chest x-ray, CAT scan, labs and medications reviewed Stable and on room air Cleared for discharge from the pulmonary standpoint Educated regarding the importance of complete smoking cessation Keep her appointment as scheduled in our office I have personally seen and examined the patient, performed the documentation and the assessment and plan as written. Number of minutes spent on the visit: 20.
--- NOTE | 2023-01-14 13:37 | P.DS ---
Providers Date of admission: 01/12/23 23:46 Expected date of discharge: 01/14/23 Attending physician: Surinder Rodríguez Consults: 01/12/23 22:27 Consult Physician Urgent Consulting Provider: [facility] Consult Reason/Comments: chest pain Do you want consulting provider notified?: Yes 01/13/23 14:56 Consult Physician Routine Consulting Provider: Silvia Murry Consult Reason/Comments: chest pain, shortness of breath Do you want consulting provider notified?: Yes Primary care physician: Surinder Rodríguez [facility] Course: Diagnoses on discharge: Episode of chest pain, acute coronary syndrome ruled out Underlying history of coronary artery disease was history of coronary artery bypass graft surgery Mild elevation in d-dimer, pulmonary embolism ruled out Anemia on presentation will check iron and vitamin B12 and folate level Underlying history of hypertension Underlying history of hyperlipidemia Underlying history of insulin-dependent diabetes mellitus Underlying history of COPD Underlying history of chronic low back pain Underlying history of obstructive sleep apnea. Hospital course: Mark Moore, is a 72-year-old female who presented to [facility] emergency room with a chief complaint of chest pain, patient describes multiple episodes of lower sternal pain that feels like squeezing, episodes of pain last 1-2 minutes and resolved spontaneously. Patient also had shortness of breath, no radiation of the pain no diaphoresis no nausea or vomiting. She was evaluated in the emergency room vital examination on presentation revealed a temperature of 97.3 pulse 70 respiration 20 blood pressure 109/80 pulse ox 98% on room air Laboratory data revealed a white blood count of 8.5 hemoglobin 10.8 platelet count 428 sodium 134 potassium 4.0 chloride 96 CO2 29 BUN 11 creatinine 0.67 troponin level less than 0.012 Testing in the emergency room revealed EKG done in the emergency room revealed sinus rhythm with left axis deviation and left bundle branch block, chest x-ray done in the emergency room, revealed no active cardiopulmonary disease no change. Patient was admitted to medical floor for further evaluation and treatment Past medical history is significant for history of coronary artery disease with history of coronary artery bypass graft surgery, history of hypertension, history of hyperlipidemia, history of chronic obstructive pulmonary disease, and history of obstructive sleep apnea. On review of systems there is no fever or chills no headache or dizziness no chest pain at this time no shortness of breath no cough no nausea or vomiting no abdominal pain no diarrhea no blood in the stools no burning with urination no frequency or urgency and no hematuria On 01-14-2023 patient was seen and examined on the telemetry floor, she is alert and oriented 3 in no apparent distress she denies any symptoms at this time there is no fever or chills no headache or dizziness no chest pain no shortness of breath no cough no nausea or vomiting no abdominal pain no diarrhea and no urinary symptoms. Patient was evaluated by cardiology him to her was added to her medication regimen and blood pressure was down, she was evaluated by cardiology dose of lisinopril was decreased from 5 mg daily to 2.5 mg daily, recommendation were to monitor until this afternoon if stable and asymptomatic she can be discharged home. On 01/14/2023 patient was reevaluated on the telemetry floor she is alert and oriented 3 in no apparent distress, she denies any dizziness her last blood pressure recorded in the chart was 95/63 however she stated that she feels fine and she is requesting to be discharged home. Case was discussed was Dr. Caraballo, patient will be discharged to home today she will be followed in our office in 2-3 days, she was instructed to return to emergency room if having a new episodes of chest pain or any dizziness or lightheadedness. Patient Condition at Discharge: Fair Plan - Discharge Summary New Discharge Prescriptions: New Isosorbide Mononitrate ER [Imdur] 30 mg PO DAILY tab lisinopriL [Zestril] 2.5 mg PO DAILY tab HYDROcodone/APAP 7.5-325MG [Giltner 7.5-325] 1 each PO Q6HR PRN tab PRN Reason: Pain Continue traMADol HCl [Ultram] 100 mg PO BID PRN PRN Reason: Pain Baclofen 10 mg PO TID PRN PRN Reason: Muscle Pain Ergocalciferol (Vitamin D2) [Drisdol (50,000 Iu)] 1,250 mcg PO MO Aspirin EC [Ecotrin Low Dose] 81 mg PO DAILY Nitroglycerin Sl Tabs [Nitrostat] 0.4 mg SUBLINGUAL Q5M PRN tab PRN Reason: Chest Pain Metoprolol Succinate (ER) [Toprol XL] 25 mg PO DAILY tab Insulin Glargine/Lixisenatide [Soliqua 100 Unit-33 Mcg/ml Pen] 15 units SQ AC-BRKFST Insulin Detemir (Levemir) [Levemir] 10 unit SQ DAILY Furosemide [Lasix] 40 mg PO BID Atorvastatin [Lipitor] 80 mg PO HS tab Clopidogrel [Plavix] 75 mg PO DAILY tab Discontinued lisinopriL [Zestril] 5 mg PO DAILY tab Ciprofloxacin HCl [Cipro] 250 mg PO BID 4 Days #8 tab Discharge Medication List traMADol HCl [Ultram] 100 mg PO BID PRN 11/04/15 [History] Baclofen 10 mg PO TID PRN 09/14/16 [History] Ergocalciferol (Vitamin D2) [Drisdol (50,000 Iu)] 1,250 mcg PO MO 09/07/22 [History] Insulin Detemir (Levemir) [Levemir] 10 unit SQ DAILY 09/07/22 [History] Furosemide [Lasix] 40 mg PO BID 10/26/22 [History] Aspirin EC [Ecotrin Low Dose] 81 mg PO DAILY 12/10/22 [History] Atorvastatin [Lipitor] 80 mg PO HS tab 12/14/22 [Rx] Clopidogrel [Plavix] 75 mg PO DAILY tab 12/14/22 [Rx] Metoprolol Succinate (ER) [Toprol XL] 25 mg PO DAILY tab 12/14/22 [Rx] Nitroglycerin Sl Tabs [Nitrostat] 0.4 mg SUBLINGUAL Q5M PRN tab 12/14/22 [Rx] Insulin Glargine/Lixisenatide [Soliqua 100 Unit-33 Mcg/ml Pen] 15 units SQ AC- BRKFST 01/12/23 [History] HYDROcodone/APAP 7.5-325MG [[place]iltner 7.5-325] 1 each PO Q6HR PRN tab 01/14/23 [Rx] Isosorbide Mononitrate ER [Imdur] 30 mg PO DAILY tab 01/14/23 [Rx] lisinopriL [Zestril] 2.5 mg PO DAILY tab 01/14/23 [Rx] Follow up Appointment(s)/Referral(s): Surinder Rodríguez MD [Primary Care Provider] - 1-2 days
[2023-01-14] MEDS ORDERED: FUROSEMIDE 20 MG TAB PO SCH (16:00)
== END 2023-01-14 14:15 | disposition home or self-care (01) ==
LOC: EC 19:45 → 6NMEDSUR 23:46
PROVIDERS: ADMIT Internal Medicine; ATTEND Internal Medicine
DX: R07.9 Chest pain, unspecified (principal); I44.7 Left bundle-branch block, unspecified; I25.10 Atherosclerotic heart disease of native coronary artery without angina pectoris; I11.0 Hypertensive heart disease with heart failure; I50.9 Heart failure, unspecified; Z95.1 Presence of aortocoronary bypass graft; I25.5 Ischemic cardiomyopathy; Z95.5 Presence of coronary angioplasty implant and graft; R79.1 Abnormal coagulation profile; D64.9 Anemia, unspecified; E78.5 Hyperlipidemia, unspecified; E11.9 Type 2 diabetes mellitus without complications; J44.9 Chronic obstructive pulmonary disease, unspecified; G89.29 Other chronic pain; M54.50 Low back pain, unspecified; G47.33 Obstructive sleep apnea (adult) (pediatric); M79.7 Fibromyalgia; M19.90 Unspecified osteoarthritis, unspecified site; M32.9 Systemic lupus erythematosus, unspecified; J30.2 Other seasonal allergic rhinitis; F19.10 Other psychoactive substance abuse, uncomplicated; Z90.49 Acquired absence of other specified parts of digestive tract; Z98.51 Tubal ligation status; Z98.890 Other specified postprocedural states; Z87.891 Personal history of nicotine dependence; Z80.9 Family history of malignant neoplasm, unspecified; Z82.49 Family history of ischemic heart disease and other diseases of the circulatory system; Z83.3 Family history of diabetes mellitus; Z79.02 Long term (current) use of antithrombotics/antiplatelets; Z79.82 Long term (current) use of aspirin; Z79.4 Long term (current) use of insulin; Z79.899 Other long term (current) drug therapy; Z88.1 Allergy status to other antibiotic agents; Z88.2 Allergy status to sulfonamides
CPT/HCPCS: 96376; 96374; 96375; 99285; 36415; 93005; 85379; 83880; 80053; 82607; 82746; 83540; 83550; 83735; 84484 ×2; 85025; 85610; 85730; 81003; 83036; 71046; 71275; G0378 ×2; J2060; J1650 ×2; Q9967

== ENCOUNTER 2023-01-25 04:41 | Emergency (ER) | payer MEDICARE, OTHER ==
[2023-01-25 04:49] VITALS: BP 106/56; PULSE 87; RESP 16; TEMP 97.9
[2023-01-25] MEDS ORDERED: ORPHENADRINE 30 MG/ML 2 ML VIAL IM STA (05:16)
[2023-01-25] MEDS ORDERED: KETOROLAC 15 MG/ML 1 ML VIAL IM STA (05:16)
--- NOTE | 2023-01-25 05:46 | ED ---
General Adult HPI - General Chief complaint: Back Pain/Injury Stated complaint: sciatic nerve pain,chest pain Time Seen by Provider: 01/25/23 04:57 Source: patient Mode of arrival: ambulatory Limitations: no limitations - History of Present Illness Initial comments: This is a 72-year-old female with a past medical history including coronary artery disease, COPD, restless leg syndrome and chronic sciatica presents emergency department for right sciatic nerve pain. The patient stated that she has been restless leg and sciatic nerve pain over the last 2 days and has been unable to sleep. The patient came to the emergency department requesting "shot of medications sleep and that I'll be going home." The patient was walking around the room my evaluation without any acute significant distress. The patient denied any other acute pain or complaints at this time. - Related Data Home Medications Medication Instructions Recorded Confirmed traMADol HCl [Ultram] 100 mg PO BID PRN 11/04/15 01/12/23 Baclofen 10 mg PO TID PRN 09/14/16 01/12/23 Ergocalciferol (Vitamin D2) 1,250 mcg PO MO 09/07/22 01/12/23 [Drisdol (50,000 Iu)] Insulin Detemir (Levemir) [Levemir] 10 unit SQ DAILY 09/07/22 01/12/23 Furosemide [Lasix] 40 mg PO BID 10/26/22 01/12/23 Aspirin EC [Ecotrin Low Dose] 81 mg PO DAILY 12/10/22 01/12/23 Insulin Glargine/Lixisenatide 15 units SQ AC-BRKFST 01/12/23 01/12/23 [Soliqua 100 Unit-33 Mcg/ml Pen] Previous Rx's Medication Instructions Recorded Atorvastatin [Lipitor] 80 mg PO HS tab 12/14/22 Clopidogrel [Plavix] 75 mg PO DAILY tab 12/14/22 Metoprolol Succinate (ER) [Toprol 25 mg PO DAILY tab 12/14/22 XL] Nitroglycerin Sl Tabs [Nitrostat] 0.4 mg SUBLINGUAL Q5M PRN tab 12/14/22 HYDROcodone/APAP 7.5-325MG [Clio 1 each PO Q6HR PRN tab 01/14/23 7.5-325] Isosorbide Mononitrate ER [Imdur] 30 mg PO DAILY tab 01/14/23 lisinopriL [Zestril] 2.5 mg PO DAILY tab 01/14/23 Allergies Allergy/AdvReac Type Severity Reaction Status Date / Time cephalexin Allergy Anaphylaxis Verified 01/12/23 20:38 cephalexin monohydrate Allergy Anaphylaxis Verified 01/12/23 20:38 [From Keflex] Sulfa (Sulfonamide Allergy Rash/Hives Verified 01/12/23 20:38 Antibiotics) Review of Systems ROS Statement: Those systems with pertinent positive or pertinent negative responses have been documented in the HPI. ROS Other: All systems not noted in ROS Statement are negative. 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 Poly substance abuse 07/19/21 admitted for Acute delirium History of Any Multi-Drug Resistant Organisms: None Reported Past Surgical History: Cholecystectomy, Coronary Bypass/CABG, Hernia Repair, Orthopedic Surgery, Tonsillectomy, Tubal Ligation Additional Past Surgical History / Comment(s): LEFT KNEE ARTHROSCOPY, BMT AND MYRINGOPLASTY, umbilical hernia repair, CABG 2020 Past Anesthesia/Blood Transfusion Reactions: No Reported Reaction Additional Past Anesthesia/Blood Transfusion Reaction / Comment(s): STATES AFTER LAST EAR SX (11/2013) HAD SORE MUSCLES AND WAS WEAK FOR 3-4 DAYS Past Psychological History: Unable to Obtain Smoking Status: Former smoker Past Alcohol Use History: None Reported Past Drug Use History: None Reported - Past Family History Sister(s) Family Medical History: Cancer Brother(s) Family Medical History: Cancer Additional Family Medical History / Comment(s): brother had heart valve replacement Mother Family Medical History: Chest Pain / Angina, Diabetes Mellitus, Hypertension Father History Unknown: Yes Additional Family Medical History / Comment(s): , "had bad lungs" per patient, was a smoker General Exam Limitations: no limitations General appearance: alert, in no apparent distress Head exam: Present: atraumatic, normocephalic, normal inspection Eye exam: Present: normal appearance, PERRL Pupils: Present: normal accommodation ENT exam: Present: normal exam, normal oropharynx, mucous membranes moist Neck exam: Present: normal inspection, full ROM Respiratory exam: Present: normal lung sounds bilaterally Cardiovascular Exam: Present: regular rate, normal rhythm, normal heart sounds GI/Abdominal exam: Present: soft, normal bowel sounds Extremities exam: Present: normal inspection, full ROM, other (Minimal tenderness to palpation over the right sciatic nerve) Back exam: Present: normal inspection, full ROM Neurological exam: Present: alert, oriented X3, CN II-XII intact Psychiatric exam: Present: normal affect, normal mood Skin exam: Present: warm, dry Course Vital Signs 01/25/23 04:45 Temperature 97.9 F Pulse Rate 87 Respiratory 16 Rate Blood Pressure 106/56 O2 Sat by Pulse 99 Oximetry Medical Decision Making - Medical Decision Making Was pt. sent in by a medical professional or institution (, PA, LABORATORY TECHNOLOGIST, urgent care, hospital, or shelter...) When possible be specific @ -No Did you speak to anyone other than the patient for history (EMS, parent, family, police, friend...)? What history was obtained from this source @ -No Did you review nursing and triage notes (agree or disagree)? Why? @ -I reviewed and agree with nursing and triage notes Were old charts reviewed (outside hosp., previous admission, EMS record, old EKG, old radiological studies, urgent care reports/EKG's, shelter records)? Report findings @ -No old charts were reviewed Differential Diagnosis (chest pain, altered mental status, abdominal pain women, abdominal pain men, vaginal bleeding, weakness, fever, dyspnea, syncope, headache, dizziness, GI bleed, back pain, seizure, CVA, palpatations, mental he alth)? @ -Sciatica, muscular skeletal strain, muscle spasm EKG interpreted by me (3pts min.). @ -None X-rays interpreted by me (1pt min.). @ -None done CT interpreted by me (1pt min.). @ -None done U/S interpreted by me (1pt. min.). @ -None done What testing was considered but not performed or refused? (CT, X-rays, U/S, labs)? Why? @ -None What meds were considered but not given or refused? Why? @ -None Did you discuss the management of the patient with other professionals (professionals i.e. , PA, LABORATORY TECHNOLOGIST, lab, RT, psych nurse, criminal justice social worker, business intelligence engineer, teacher, fare enforcement officer, special education case manager)? Give summary @ -No Was smoking cessation discussed for >3mins.? @ -Yes Was critical care preformed (if so, how long)? @ -No Were there social determinants of health that impacted care today? How? (Homelessness, low income, unemployed, alcoholism, drug addiction, transportation, low edu. Level, literacy, decrease access to med. care, care home, rehab)? @ -No Was there de-escalation of care discussed even if they declined (Discuss DNR or withdrawal of care, Hospice)? DNR status @ -No What co-morbidities impacted this encounter? (DM, HTN, Smoking, COPD, CAD, Cancer, CVA, ARF, Chemo, Hep., AIDS, mental health diagnosis, sleep apnea, morbid obesity)? @ -COPD, hypertension, coronary artery disease, restless leg syndrome Was patient admitted / discharged? Hospital course, mention meds given and route, prescriptions, significant lab abnormalities, going to OR and other pertinent info. @ -The patient was seen and evaluated emergency department. Physical exam, the patient was resting in bed and walking around the room without any acute distress. The patient had physical exam findings consistent with sciatic nerve pain and the patient only requested medications. The patient was given a intramuscular injection for Toradol and Norflex. Only approximately 15 minutes after this, the patient stated that "I'm ready to go home and I, medical treatment some good to go." The patient continued to walk around the room without any acute distress. The patient to remain stable was discharged home in stable condition with her grandson. Undiagnosed new problem with uncertain prognosis? @ -No Drug Therapy requiring intensive monitoring for toxicity (Heparin, Nitro, Insulin, Cardizem)? @ -No Were any procedures done? @ -No Diagnosis/symptom? @ -Right sciatica Acute, or Chronic, or Acute on Chronic? @ -Acute on chronic Uncomplicated (without systemic symptoms) or Complicated (systemic symptoms)? @ -Uncomplicated Side effects of treatment? @ -No Exacerbation, Progression, or Severe Exacerbation? @ -No Poses a threat to life or bodily function? How? (Chest pain, [place], [place], pneumonia, PE, COPD, DKA, ARF, appy, cholecystitis, CVA, Diverticulitis, Homicidal, Suicid al, threat to staff... and all critical care pts) @ -No Disposition Clinical Impression: Sciatica Disposition: HOME SELF-CARE Condition: Stable Instructions (If sedation given, give patient instructions): Sciatica (ED) Is patient prescribed a controlled substance at d/c from ED?: No Referrals: Surinder Rodríguez MD [Primary Care Provider] - 1-2 days Time of Disposition: 05:40
== END 2023-01-25 05:51 | disposition home or self-care (01) ==
LOC: EC 04:41
DX: M54.30 Sciatica, unspecified side (principal); I25.10 Atherosclerotic heart disease of native coronary artery without angina pectoris; I11.0 Hypertensive heart disease with heart failure; I50.9 Heart failure, unspecified; J44.9 Chronic obstructive pulmonary disease, unspecified; E11.9 Type 2 diabetes mellitus without complications; G47.30 Sleep apnea, unspecified; M19.90 Unspecified osteoarthritis, unspecified site; Z79.1 Long term (current) use of non-steroidal anti-inflammatories (NSAID); Z79.82 Long term (current) use of aspirin; Z79.4 Long term (current) use of insulin; Z87.891 Personal history of nicotine dependence; Z88.1 Allergy status to other antibiotic agents; Z88.2 Allergy status to sulfonamides; Z79.899 Other long term (current) drug therapy
CPT/HCPCS: 99283; 96372 ×2; J2360; J1885

== ENCOUNTER 2023-06-11 13:09 | Inpatient (IN) | payer MEDICARE, OTHER ==
--- NOTE | 2023-06-11 13:34 | ED ---
General Adult HPI - General Chief complaint: Shortness of Breath Stated complaint: SOB Time Seen by Provider: 06/11/23 13:20 Source: patient, RN notes reviewed Mode of arrival: ambulatory Limitations: no limitations - History of Present Illness Initial comments: Patient is a pleasant 72-year-old female presenting to the emergency department with difficulty breathing. Onset of symptoms was yesterday. Patient does have cough. No sputum. Patient does have chest congestion. No chest pain. No fever. No leg pain or leg swelling. Patient does have history of asthma however this feels worse. - Related Data Home Medications Medication Instructions Recorded Confirmed traMADol HCl [Ultram] 100 mg PO BID PRN 11/04/15 01/12/23 Baclofen 10 mg PO TID PRN 09/14/16 01/12/23 Ergocalciferol (Vitamin D2) 1,250 mcg PO MO 09/07/22 01/12/23 [Drisdol (50,000 Iu)] Insulin Detemir (Levemir) [Levemir] 10 unit SQ DAILY 09/07/22 01/12/23 Furosemide [Lasix] 40 mg PO BID 10/26/22 01/12/23 Aspirin EC [Ecotrin Low Dose] 81 mg PO DAILY 12/10/22 01/12/23 Insulin Glargine/Lixisenatide 15 units SQ AC-[id number] 01/12/23 01/12/23 [[place] 100 Unit-33 Mcg/ml Pen] Previous Rx's Medication Instructions Recorded Atorvastatin [Lipitor] 80 mg PO HS tab 12/14/22 Clopidogrel [Plavix] 75 mg PO DAILY tab 12/14/22 Metoprolol Succinate (ER) [Toprol 25 mg PO DAILY tab 12/14/22 XL] Nitroglycerin Sl Tabs [Nitrostat] 0.4 mg SUBLINGUAL Q5M PRN tab 12/14/22 HYDROcodone/APAP 7.5-325MG [[place] 1 each PO Q6HR PRN tab 01/14/23 7.5-325] Isosorbide Mononitrate ER [Imdur] 30 mg PO DAILY tab 01/14/23 lisinopriL [Zestril] 2.5 mg PO DAILY tab 01/14/23 Amoxic-Pot Clav 875-125Mg 1 tab PO Q12HR #14 tablet 02/28/23 [Augmentin 875-125] Allergies Allergy/AdvReac Type Severity Reaction Status Date / Time cephalexin Allergy Anaphylaxis Verified 06/11/23 13:17 cephalexin monohydrate Allergy Anaphylaxis Verified 06/11/23 13:17 [From Keflex] Sulfa (Sulfonamide Allergy Rash/Hives Verified 06/11/23 13:17 Antibiotics) Review of Systems ROS Statement: Those systems with pertinent positive or pertinent negative responses have been documented in the HPI. ROS Other: All systems not noted in ROS Statement are negative. Constitutional: Denies: fever Eyes: Denies: eye pain ENT: Denies: ear pain Respiratory: Reports: cough, dyspnea Cardiovascular: Denies: chest pain Endocrine: Denies: fatigue Gastrointestinal: Denies: abdominal pain Genitourinary: Denies: dysuria Past Medical History Past Medical History: Asthma, Coronary Artery Disease (CAD), Heart Failure, COPD, Diabetes Mellitus, Fibromyalgia, Hyperlipidemia, Hypertension, Musculoskeletal Disorder, Osteoarthritis (OA), Sleep Apnea/CPAP/BIPAP Additional Past Medical History / Comment(s): TESTED POSITIVE FOR LUPUS (STATES NO SYMPTOMS), DOES NOT USE CPAP, SEASONAL ALLERGIES, STATES 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 Poly substance abuse 07/19/21 admitted for Acute delirium History of Any Multi-Drug Resistant Organisms: None Reported Past Surgical History: Cholecystectomy, Coronary Bypass/CABG, Hernia Repair, Orthopedic Surgery, Tonsillectomy, Tubal Ligation Additional Past Surgical History / Comment(s): LEFT KNEE ARTHROSCOPY, BMT AND MYRINGOPLASTY, umbilical hernia repair, CABG 2020 Past Anesthesia/Blood Transfusion Reactions: No Reported Reaction Additional Past Anesthesia/Blood Transfusion Reaction / Comment(s): STATES AFTER LAST EAR SX (11/2013) HAD SORE MUSCLES AND WAS WEAK FOR 3-4 DAYS Past Psychological History: Unable to Obtain Smoking Status: Former smoker Past Alcohol Use History: None Reported Past Drug Use History: None Reported, Marijuana - Past Family History Sister(s) Family Medical History: Cancer Brother(s) Family Medical History: Cancer Additional Family Medical History / Comment(s): brother had heart valve replacement Mother Family Medical History: Chest Pain / Angina, Diabetes Mellitus, Hypertension Father History Unknown: Yes Additional Family Medical History / Comment(s): , "had bad lungs" per patient, was a smoker General Exam Limitations: no limitations General appearance: alert, in no apparent distress Head exam: Present: atraumatic Eye exam: Present: normal appearance Neck exam: Present: normal inspection Respiratory exam: Present: rales Cardiovascular Exam: Present: tachycardia GI/Abdominal exam: Present: soft. Absent: tenderness Extremities exam: Present: normal inspection. Absent: pedal edema, calf tenderness Neurological exam: Present: alert Psychiatric exam: Present: normal affect, normal mood Skin exam: Present: normal color Course Vital Signs 06/11/23 06/11/23 06/11/23 13:12 14:00 15:00 Temperature 98.9 F Pulse Rate 108 H 93 86 Respiratory 24 20 20 Rate Blood Pressure 144/78 118/66 130/63 O2 Sat by Pulse 97 98 100 Oximetry 06/11/23 06/11/23 06/11/23 15:27 15:37 16:00 Temperature Pulse Rate 90 86 93 Respiratory 20 Rate Blood Pressure 106/82 O2 Sat by Pulse 97 Oximetry 06/11/23 16:21 Temperature Pulse Rate 103 H Respiratory 20 Rate Blood Pressure 118/87 O2 Sat by Pulse 99 Oximetry - Reevaluation(s) Reevaluation #1: 06/11/23 16:42 Repeat EKG interpreted by myself shows sinus rhythm at 90. Left axis. Left bundle branch block. Nonspecific ST-T. EKG Findings - EKG Results: EKG: interpreted by ERMD ((Springs left. Left bundle branch block. Nonspecific ST-T), sinus rhythm Medical Decision Making - Medical Decision Making Was pt. sent in by a medical professional or institution (, PA, [employer], urgent care, hospital, or longterm...) When possible be specific @ -[No] Did you speak to anyone other than the patient for history (EMS, parent, family, police, friend...)? What history was obtained from this source @ -[No] Did you review nursing and triage notes (agree or disagree)? Why? @ -[I reviewed and agree with nursing and triage notes] Were old charts reviewed (outside hosp., previous admission, EMS record, old EKG, old radiological studies, urgent care reports/EKG's, longterm records)? Report findings @ -[No old charts were reviewed] Differential Diagnosis (chest pain, altered mental status, abdominal pain women, abdominal pain men, vaginal bleeding, weakness, fever, dyspnea, syncope, headache, dizziness, GI bleed, back pain, seizure, CVA, palpatations, mental health, musculoskeletal)? @ -Differential Dyspnea: Coronary syndrome, arrhythmia, tamponade, asthma, COPD, pulmonary embolism, pneumonia, pneumothorax, pulmonary effusion, anaphylaxis, diabetic ketoacidosis, flailed chest, pulmonary contusion, diaphragmatic rupture, anemia, neuromuscular, this is not meant to be an all-inclusive list. EKG interpreted by me (3pts min.). @ -[As above] X-rays interpreted by me (1pt min.). @ -Chest x-ray reveals no acute process. poststernotomy wires. CT interpreted by me (1pt min.). @ -[None done] U/S interpreted by me (1pt. min.). @ -[None done] What testing was considered but not performed or refused? (CT, X-rays, U/S, labs)? Why? @ -Computed tomography scan of the chest ordered secondary to elevation of d- dimer What meds were considered but not given or refused? Why? @ -[None] Did you discuss the management of the patient with other professionals (professionals i.e. , PA, [employer], lab, RT, psych nurse, geriatric social work professor, rfid strategist, teacher, probation and parole officer, top case assembler)? Give summary @ -Case was discussed with Dr. Rodríguez, who will admit his patient Was smoking cessation discussed for >3mins.? @ -[No] Was critical care preformed (if so, how long)? @ -[No] Were there social determinants of health that impacted care today? How? (Homelessness, low income, unemployed, alcoholism, drug addiction, transportation, low edu. Level, literacy, decrease access to med. care, [facility], rehab)? @ -[No] Was there de-escalation of care discussed even if they declined (Discuss DNR or withdrawal of care, Hospice)? DNR status @ -[No] What co-morbidities impacted this encounter? (DM, HTN, Smoking, COPD, CAD, Cancer, CVA, ARF, Chemo, Hep., AIDS, mental health diagnosis, sleep apnea, morbid obesity)? @ -[None] Was patient admitted / discharged? Hospital course, mention meds given and route, prescriptions, significant lab abnormalities, going to OR and other pertinent info. @ -Patient reevaluated and somewhat improved. Patient is updated on results and plan. Patient will be admitted with consults. Admission orders. Computed tomography scan ordered. Undiagnosed new problem with uncertain prognosis? @ -Etiology dyspnea is unclear at this point. Computed tomography scan ordered. Consults will place. Drug Therapy requiring intensive monitoring for toxicity (Heparin, Nitro, Insulin, Cardizem)? @ -[No] Were any procedures done? @ -[No] Diagnosis/symptom? @ -Dyspnea Acute, or Chronic, or Acute on Chronic? @ -Acute Uncomplicated (without systemic symptoms) or Complicated (systemic symptoms)? @ -[default] Side effects of treatment? @ -[No] Exacerbation, Progression, or Severe Exacerbation? @ -[No] Poses a threat to life or bodily function? How? (Chest pain, USA, MS, pneumonia, PE, COPD, DKA, ARF, appy, cholecystitis, CVA, Diverticulitis, Homicidal, Freda cidal, threat to staff... and all critical care pts) @ -[No] - Lab Data Result diagrams: 06/11/23 13:35 06/11/23 13:35 Lab Results 06/11/23 06/11/23 06/11/23 Range/Units 13:35 13:35 13:35 WBC 5.9 (3.8-10.6) k/uL RBC 4.86 (3.80-5.40) m/uL Hgb 11.2 L (11.4-16.0) gm/dL Hct 34.7 (34.0-46.0) % MCV 71.4 L (80.0-100.0) fL MCH 23.0 L (25.0-35.0) pg MCHC 32.2 (31.0-37.0) g/dL RDW 16.8 H (11.5-15.5) % Plt Count 225 (150-450) k/uL MPV 8.0 Neutrophils % 58 % Lymphocytes % 26 % Monocytes % 5 % Eosinophils % 8 % Basophils % 0 % Neutrophils # 3.4 (1.3-7.7) k/uL Lymphocytes # 1.5 (1.0-4.8) k/uL Monocytes # 0.3 (0-1.0) k/uL Eosinophils # 0.5 (0-0.7) k/uL Basophils # 0.0 (0-0.2) k/uL Hypochromasia Moderate Anisocytosis Slight Microcytosis Moderate PT 10.2 (9.0-12.0) sec INR 1.0 (<1.2) APTT 24.5 (22.0-30.0) sec D-Dimer (<0.60) mg/L FEU Sodium 136 L (137-145) mmol/L Potassium 4.5 (3.5-5.1) mmol/L Chloride 105 (98-107) mmol/L Carbon Dioxide 19 L (22-30) mmol/L Anion Gap 12 mmol/L BUN 10 (7-17) mg/dL Creatinine 0.52 (0.52-1.04) mg/dL Est GFR (CKD-EPI)AfAm >90 (>60 ml/min/1.73 sqM) Est GFR (CKD-EPI)NonAf >90 (>60 ml/min/1.73 sqM) Glucose 148 H (74-99) mg/dL Plasma Lactic Acid Angel (0.7-2.0) mmol/L Calcium 8.8 (8.4-10.2) mg/dL Total Bilirubin 0.5 (0.2-1.3) mg/dL AST 33 (14-36) U/L ALT 29 (4-34) U/L Alkaline Phosphatase 115 (38-126) U/L Troponin I (0.000-0.034) ng/mL NT-Pro-B Natriuret Pep 1940 pg/mL Total Protein 7.4 (6.3-8.2) g/dL Albumin 3.9 (3.5-5.0) g/dL Coronavirus (PCR) (Not Detectd) 06/11/23 06/11/23 06/11/23 Range/Units 13:35 13:35 13:35 WBC (3.8-10.6) k/uL RBC (3.80-5.40) m/uL Hgb (11.4-16.0) gm/dL Hct (34.0-46.0) % MCV (80.0-100.0) fL MCH (25.0-35.0) pg MCHC (31.0-37.0) g/dL RDW (11.5-15.5) % Plt Count (150-450) k/uL MPV Neutrophils % % Lymphocytes % % Monocytes % % Eosinophils % % Basophils % % Neutrophils # (1.3-7.7) k/uL Lymphocytes # (1.0-4.8) k/uL Monocytes # (0-1.0) k/uL Eosinophils # (0-0.7) k/uL Basophils # (0-0.2) k/uL Hypochromasia Anisocytosis Microcytosis PT (9.0-12.0) sec INR (<1.2) APTT (22.0-30.0) sec D-Dimer (<0.60) mg/L FEU Sodium (137-145) mmol/L Potassium (3.5-5.1) mmol/L Chloride (98-107) mmol/L Carbon Dioxide (22-30) mmol/L Anion Gap mmol/L BUN (7-17) mg/dL Creatinine (0.52-1.04) mg/dL Est GFR (CKD-EPI)AfAm (>60 ml/min/1.73 sqM) Est GFR (CKD-EPI)NonAf (>60 ml/min/1.73 sqM) Glucose (74-99) mg/dL Plasma Lactic Acid Angel 2.2 H* (0.7-2.0) mmol/L Calcium (8.4-10.2) mg/dL Total Bilirubin (0.2-1.3) mg/dL AST (14-36) U/L ALT (4-34) U/L Alkaline Phosphatase (38-126) U/L Troponin I 0.038 H* (0.000-0.034) ng/mL NT-Pro-B Natriuret Pep pg/mL Total Protein (6.3-8.2) g/dL Albumin (3.5-5.0) g/dL Coronavirus (PCR) Not Detected (Not Detectd) 06/11/23 Range/Units 13:35 WBC (3.8-10.6) k/uL RBC (3.80-5.40) m/uL Hgb (11.4-16.0) gm/dL Hct (34.0-46.0) % MCV (80.0-100.0) fL MCH (25.0-35.0) pg MCHC (31.0-37.0) g/dL RDW (11.5-15.5) % Plt Count (150-450) k/uL MPV Neutrophils % % Lymphocytes % % Monocytes % % Eosinophils % % Basophils % % Neutrophils # (1.3-7.7) k/uL Lymphocytes # (1.0-4.8) k/uL Monocytes # (0-1.0) k/uL Eosinophils # (0-0.7) k/uL Basophils # (0-0.2) k/uL Hypochromasia Anisocytosis Microcytosis PT (9.0-12.0) sec INR (<1.2) APTT (22.0-30.0) sec D-Dimer 0.77 H (<0.60) mg/L FEU Sodium (137-145) mmol/L Potassium (3.5-5.1) mmol/L Chloride (98-107) mmol/L Carbon Dioxide (22-30) mmol/L Anion Gap mmol/L BUN (7-17) mg/dL Creatinine (0.52-1.04) mg/dL Est GFR (CKD-EPI)AfAm (>60 ml/min/1.73 sqM) Est GFR (CKD-EPI)NonAf (>60 ml/min/1.73 sqM) Glucose (74-99) mg/dL Plasma Lactic Acid Angel (0.7-2.0) mmol/L Calcium (8.4-10.2) mg/dL Total Bilirubin (0.2-1.3) mg/dL AST (14-36) U/L ALT (4-34) U/L Alkaline Phosphatase (38-126) U/L Troponin I (0.000-0.034) ng/mL NT-Pro-B Natriuret Pep pg/mL Total Protein (6.3-8.2) g/dL Albumin (3.5-5.0) g/dL Coronavirus (PCR) (Not Detectd) Disposition Clinical Impression: Dyspnea Disposition: ADMITTED IP TO THIS HOSP Is patient prescribed a controlled substance at d/c from ED?: No Referrals: Surinder Rodríguez MD [Primary Care Provider] - 1-2 days Time of Disposition: 17:24
--- NOTE | 2023-06-11 14:04 | XR ---
EXAMINATION TYPE: XR chest 2V DATE OF EXAM: 06/11/2023 2:00 PM COMPARISON: Chest radiographs from 01/12/2023, CTA chest 01/13/2023 TECHNIQUE: XR chest 2V Frontal and lateral views of the chest. CLINICAL INDICATION:Female, 72 years old with history of difficulty breathing; FINDINGS: Lungs/Pleura: There is no evidence of pleural effusion, focal consolidation, or pneumothorax. Pulmonary vascularity: Unremarkable. Heart/mediastinum: Cardiomediastinal silhouette is enlarged and stable. Atherosclerotic calcificatio ns are seen in the aorta. Left atrial appendage occlusion devices present. Musculoskeletal: No acute osseous pathology. Midline sternotomy wires are noted and stable. IMPRESSION: Chronic changes without acute pulmonary process. No significant change from prior.
[2023-06-11 14:21] LABS: Anisocytosis Slight; Basophils % (A) 0 %; Eosinophils # (A) 0.5 k/uL (0-0.7); Eosinophils % (A) 8 %; HCT 34.7 % (34.0-46.0); HGB 11.2 gm/dL (11.4-16.0); Hypochromasia Moderate; Lymphocytes # (A) 1.5 k/uL (1.0-4.8); Lymphocytes % (A) 26 %; MCHC 32.2 g/dL (31.0-37.0); MCV 71.4 fL (80.0-100.0); Microcytosis Moderate; Monocytes # (A) 0.3 k/uL (0-1.0); Monocytes % (A) 5 %; Neutrophils # (A) 3.4 k/uL (1.3-7.7); Neutrophils % (A) 58 %; Platelet Count 225 k/uL (150-450); RBC 4.86 m/uL (3.80-5.40); RDW 16.8 % (11.5-15.5); WBC 5.9 k/uL (3.8-10.6)
[2023-06-11 14:35] LABS: Partial Thromboplastin Time 24.5 sec (22.0-30.0); Prothrombin Time 10.2 sec (9.0-12.0)
[2023-06-11 14:51] LABS: ALT 29 U/L (4-34); AST 33 U/L (14-36); African American GFR (CKD) >90 (>60 ml/min/1.73 sqM); Albumin 3.9 g/dL (3.5-5.0); Alkaline Phosphatase 115 U/L (38-126); Anion Gap 12 mmol/L; Blood Urea Nitrogen 10 mg/dL (7-17); Calcium 8.8 mg/dL (8.4-10.2); Carbon Dioxide 19 mmol/L (22-30); Chloride 105 mmol/L (98-107); Glucose 148 mg/dL (74-99); Non-African American GFR(CKD) >90 (>60 ml/min/1.73 sqM); Sodium 136 mmol/L (137-145); Total Bilirubin 0.5 mg/dL (0.2-1.3); Total Protein 7.4 g/dL (6.3-8.2)
[2023-06-11] MEDS ORDERED: IPRATROPIUM-ALBUTEROL 3 ML NEB INHALATION STA (14:54)
[2023-06-11 15:00] LABS: NT-Pro-B-Type Natriuretic Pept 1940 pg/mL
[2023-06-11 16:02] LABS: Potassium 4.5 mmol/L (3.5-5.1)
[2023-06-11] MEDS ORDERED: IPRATROPIUM-ALBUTEROL 3 ML NEB INHALATION PRN (17:28)
[2023-06-11] MEDS ORDERED: methylPREDNISolone SOD SUCCI 125 MG/2 ML VIAL IV STA (17:28)
[2023-06-11] MEDS ORDERED: NALOXONE 0.4 MG/ML 1 ML VIAL IV PRN (17:28)
--- NOTE | 2023-06-11 17:28 | ED ---
General Adult HPI - General Chief complaint: Shortness of Breath Stated complaint: SOB Time Seen by Provider: 06/11/23 13:20 Source: patient, RN notes reviewed Mode of arrival: ambulatory Limitations: no limitations - History of Present Illness Initial comments: Patient is a pleasant 72-year-old female presenting to the emergency department with concerns with difficulty breathing. Onset of symptoms was last day or so. No history of similar symptoms previously. Patient does have occasional cough with occasional U don't, clear. No leg pain or leg swelling. No fevers. - Related Data Home Medications Medication Instructions Recorded Confirmed traMADol HCl [Ultram] 100 mg PO BID PRN 11/04/15 01/12/23 Baclofen 10 mg PO TID PRN 09/14/16 01/12/23 Ergocalciferol (Vitamin D2) 1,250 mcg PO MO 09/07/22 01/12/23 [Drisdol (50,000 Iu)] Insulin Detemir (Levemir) [Levemir] 10 unit SQ DAILY 09/07/22 01/12/23 Furosemide [Lasix] 40 mg PO BID 10/26/22 01/12/23 Aspirin EC [Ecotrin Low Dose] 81 mg PO DAILY 12/10/22 01/12/23 Insulin Glargine/Lixisenatide 15 units SQ AC-BRKFST 01/12/23 01/12/23 [[place] 100 Unit-33 Mcg/ml Pen] Previous Rx's Medication Instructions Recorded Atorvastatin [Lipitor] 80 mg PO HS tab 12/14/22 Clopidogrel [Plavix] 75 mg PO DAILY tab 12/14/22 Metoprolol Succinate (ER) [Toprol 25 mg PO DAILY tab 12/14/22 XL] Nitroglycerin Sl Tabs [Nitrostat] 0.4 mg SUBLINGUAL Q5M PRN tab 12/14/22 HYDROcodone/APAP 7.5-325MG [[place] 1 each PO Q6HR PRN tab 01/14/23 7.5-325] Isosorbide Mononitrate ER [Imdur] 30 mg PO DAILY tab 01/14/23 lisinopriL [Zestril] 2.5 mg PO DAILY tab 01/14/23 Amoxic-Pot Clav 875-125Mg 1 tab PO Q12HR #14 tablet 02/28/23 [Augmentin 875-125] Allergies Allergy/AdvReac Type Severity Reaction Status Date / Time cephalexin Allergy Anaphylaxis Verified 06/11/23 13:17 cephalexin monohydrate Allergy Anaphylaxis Verified 06/11/23 13:17 [From Keflex] Sulfa (Sulfonamide Allergy Rash/Hives Verified 06/11/23 13:17 Antibiotics) Review of Systems ROS Statement: Those systems with pertinent positive or pertinent negative responses have been documented in the HPI. ROS Other: All systems not noted in ROS Statement are negative. Constitutional: Denies: fever Eyes: Denies: eye pain ENT: Denies: ear pain Respiratory: Reports: cough, dyspnea Cardiovascular: Denies: chest pain Endocrine: Denies: fatigue Gastrointestinal: Denies: abdominal pain Genitourinary: Denies: dysuria Past Medical History Past Medical History: Asthma, Coronary Artery Disease (CAD), Heart Failure, COPD, Diabetes Mellitus, Fibromyalgia, Hyperlipidemia, Hypertension, Mus culoskeletal Disorder, Osteoarthritis (OA), Sleep Apnea/CPAP/BIPAP Additional Past Medical History / Comment(s): TESTED POSITIVE FOR LUPUS (STATES NO SYMPTOMS), DOES NOT USE CPAP, SEASONAL ALLERGIES, STATES 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 Poly substance abuse 07/19/21 admitted for Acute delirium History of Any Multi-Drug Resistant Organisms: None Reported Past Surgical History: Cholecystectomy, Coronary Bypass/CABG, Hernia Repair, Orthopedic Surgery, Tonsillectomy, Tubal Ligation Additional Past Surgical History / Comment(s): LEFT KNEE ARTHROSCOPY, BMT AND MYRINGOPLASTY, umbilical hernia repair, CABG 2020 Past Anesthesia/Blood Transfusion Reactions: No Reported Reaction Additional Past Anesthesia/Blood Transfusion Reaction / Comment(s): STATES AFTER LAST EAR SX (11/2013) HAD SORE MUSCLES AND WAS WEAK FOR 3-4 DAYS Past Psychological History: Unable to Obtain Smoking Status: Former smoker Past Alcohol Use History: None Reported Past Drug Use History: None Reported, Marijuana - Past Family History Sister(s) Family Medical History: Cancer Brother(s) Family Medical History: Cancer Additional Family Medical History / Comment(s): brother had heart valve replacement Mother Family Medical History: Chest Pain / Angina, Diabetes Mellitus, Hypertension Father History Unknown: Yes Additional Family Medical History / Comment(s): , "had bad lungs" per patient, was a smoker General Exam Limitations: no limitations General appearance: alert, in no apparent distress Head exam: Present: normocephalic Eye exam: Present: normal appearance ENT exam: Present: normal oropharynx Neck exam: Present: normal inspection Respiratory exam: Present: rales Cardiovascular Exam: Present: tachycardia GI/Abdominal exam: Present: soft. Absent: tenderness Extremities exam: Present: normal inspection. Absent: pedal edema, calf tenderness Neurological exam: Present: alert Psychiatric exam: Present: normal affect, normal mood Skin exam: Present: normal color Course Vital Signs 06/11/23 06/11/23 06/11/23 13:12 14:00 15:00 Temperature 98.9 F Pulse Rate 108 H 93 86 Respiratory 24 20 20 Rate Blood Pressure 144/78 118/66 130/63 O2 Sat by Pulse 97 98 100 Oximetry 06/11/23 06/11/23 06/11/23 15:27 15:37 16:00 Temperature Pulse Rate 90 86 93 Respiratory 20 Rate Blood Pressure 106/82 O2 Sat by Pulse 97 Oximetry 06/11/23 16:21 Temperature Pulse Rate 103 H Respiratory 20 Rate Blood Pressure 118/87 O2 Sat by Pulse 99 Oximetry Procedures - [place] Protocol (Time Out) Nurse: Nela Alonso Medical Decision Making - Medical Decision Making Was pt. sent in by a medical professional or institution ([facility], [employer], urgent care, hospital, or [facility]...) When possible be specific @ -[No] Did you speak to anyone other than the patient for history (EMS, parent, family, police, friend...)? What history was obtained from this source @ -[No] Did you review nursing and triage notes (agree or disagree)? Why? @ -[I reviewed and agree with nursing and triage notes] Were old charts reviewed (outside hosp., previous admission, EMS record, old EKG, old radiological studies, urgent care reports/EKG's, [facility] records)? Report findings @ -[No old charts were reviewed] Differential Diagnosis (chest pain, altered mental status, abdominal pain women, abdominal pain men, vaginal bleeding, weakness, fever, dyspnea, syncope, headache, dizziness, GI bleed, back pain, seizure, CVA, palpatations, mental health, musculoskeletal)? @ -[not applicable] EKG interpreted by me (3pts min.). @ -[As above] X-rays interpreted by me (1pt min.). @ -[None done] CT interpreted by me (1pt min.). @ -[None done] U/S interpreted by me (1pt. min.). @ -[None done] What testing was considered but not performed or refused? (CT, X-rays, U/S, labs)? Why? @ -[None] What meds were considered but not given or refused? Why? @ -[None] Did you discuss the management of the patient with other professionals (professionals i.e. DrRigoberto, PA, [employer], lab, RT, psych nurse, psych social worker, salesperson men's and boys' clothing, teacher, assistant chief nursing officer, pillowcase cutter)? Give summary @ -[No] Was smoking cessation discussed for >3mins.? @ -[No] Was critical care preformed (if so, how long)? @ -[No] Were there social determinants of health that impacted care today? How? (Homelessness, low income, unemployed, alcoholism, drug addiction, transportation, low edu. Level, literacy, decrease access to med. care, long-term, rehab)? @ -[No] Was there de-escalation of care discussed even if they declined (Discuss DNR or withdrawal of care, Hospice)? DNR status @ -[No] What co-morbidities impacted this encounter? (DM, HTN, Smoking, COPD, CAD, Cancer, CVA, ARF, Chemo, Hep., AIDS, mental health diagnosis, sleep apnea, morbid obesity)? @ -[None] Was patient admitted / discharged? Hospital course, mention meds given and route, prescriptions, significant lab abnormalities, going to OR and other pertinent info. @ -[hospital course] Undiagnosed new problem with uncertain prognosis? @ -[No] Drug Therapy requiring intensive monitoring for toxicity (Heparin, Nitro, Insulin, Cardizem)? @ -[No] Were any procedures done? @ -[No] Diagnosis/symptom? @ -[default] Acute, or Chronic, or Acute on Chronic? @ -[default] Uncomplicated (without systemic symptoms) or Complicated (systemic symptoms)? @ -[default] Side effects of treatment? @ -[No] Exacerbation, Progression, or Severe Exacerbation? @ -[No] Poses a threat to life or bodily function? How? (Chest pain, [place], MA, pneumonia, PE, COPD, DKA, ARF, appy, cholecystitis, CVA, Diverticulitis, Homicidal, Suicidal, threat to staff... and all critical care pts) @ -[No] - Lab Data Result diagrams: 06/11/23 13:35 06/11/23 13:35 Lab Results 06/11/23 06/11/23 06/11/23 Range/Units 13:35 13:35 13:35 WBC 5.9 (3.8-10.6) k/uL RBC 4.86 (3.80-5.40) m/uL Hgb 11.2 L (11.4-16.0) gm/dL Hct 34.7 (34.0-46.0) % MCV 71.4 L (80.0-100.0) fL MCH 23.0 L (25.0-35.0) pg MCHC 32.2 (31.0-37.0) g/dL RDW 16.8 H (11.5-15.5) % Plt Count 225 (150-450) k/uL MPV 8.0 Neutrophils % 58 % Lymphocytes % 26 % Monocytes % 5 % Eosinophils % 8 % Basophils % 0 % Neutrophils # 3.4 (1.3-7.7) k/uL Lymphocytes # 1.5 (1.0-4.8) k/uL Monocytes # 0.3 (0-1.0) k/uL Eosinophils # 0.5 (0-0.7) k/uL Basophils # 0.0 (0-0.2) k/uL Hypochromasia Moderate Anisocytosis Slight Microcytosis Moderate PT 10.2 (9.0-12.0) sec INR 1.0 (<1.2) APTT 24.5 (22.0-30.0) sec D-Dimer (<0.60) mg/L FEU Sodium 136 L (137-145) mmol/L Potassium 4.5 (3.5-5.1) mmol/L Chloride 105 (98-107) mmol/L Carbon Dioxide 19 L (22-30) mmol/L Anion Gap 12 mmol/L BUN 10 (7-17) mg/dL Creatinine 0.52 (0.52-1.04) mg/dL Est GFR (CKD-EPI)AfAm >90 (>60 ml/min/1.73 sqM) Est GFR (CKD-EPI)NonAf >90 (>60 ml/min/1.73 sqM) Glucose 148 H (74-99) mg/dL Lactic Ac Sepsis Rflx Plasma Lactic Acid Angel (0.7-2.0) mmol/L Calcium 8.8 (8.4-10.2) mg/dL Total Bilirubin 0.5 (0.2-1.3) mg/dL AST 33 (14-36) U/L ALT 29 (4-34) U/L Alkaline Phosphatase 115 (38-126) U/L Troponin I (0.000-0.034) ng/mL NT-Pro-B Natriuret Pep 1940 pg/mL Total Protein 7.4 (6.3-8.2) g/dL Albumin 3.9 (3.5-5.0) g/dL Coronavirus (PCR) (Not Detectd) 06/11/23 06/11/23 06/11/23 Range/Units 13:35 13:35 13:35 WBC (3.8-10.6) k/uL RBC (3.80-5.40) m/uL Hgb (11.4-16.0) gm/dL Hct (34.0-46.0) % MCV (80.0-100.0) fL MCH (25.0-35.0) pg MCHC (31.0-37.0) g/dL RDW (11.5-15.5) % Plt Count (150-450) k/uL MPV Neutrophils % % Lymphocytes % % Monocytes % % Eosinophils % % Basophils % % Neutrophils # (1.3-7.7) k/uL Lymphocytes # (1.0-4.8) k/uL Monocytes # (0-1.0) k/uL Eosinophils # (0-0.7) k/uL Basophils # (0-0.2) k/uL Hypochromasia Anisocytosis Microcytosis PT (9.0-12.0) sec INR (<1.2) APTT (22.0-30.0) sec D-Dimer (<0.60) mg/L FEU Sodium (137-145) mmol/L Potassium (3.5-5.1) mmol/L Chloride (98-107) mmol/L Carbon Dioxide (22-30) mmol/L Anion Gap mmol/L BUN (7-17) mg/dL Creatinine (0.52-1.04) mg/dL Est GFR (CKD-EPI)AfAm (>60 ml/min/1.73 sqM) Est GFR (CKD-EPI)NonAf (>60 ml/min/1.73 sqM) Glucose (74-99) mg/dL Lactic Ac Sepsis Rflx Plasma Lactic Acid Angel 2.2 H* (0.7-2.0) mmol/L Calcium (8.4-10.2) mg/dL Total Bilirubin (0.2-1.3) mg/dL AST (14-36) U/L ALT (4-34) U/L Alkaline Phosphatase (38-126) U/L Troponin I 0.038 H* (0.000-0.034) ng/mL NT-Pro-B Natriuret Pep pg/mL Total Protein (6.3-8.2) g/dL Albumin (3.5-5.0) g/dL Coronavirus (PCR) Not Detected (Not Detectd) 06/11/23 06/11/23 Range/Units 13:35 15:22 WBC (3.8-10.6) k/uL RBC (3.80-5.40) m/uL Hgb (11.4-16.0) gm/dL Hct (34.0-46.0) % MCV (80.0-100.0) fL MCH (25.0-35.0) pg MCHC (31.0-37.0) g/dL RDW (11.5-15.5) % Plt Count (150-450) k/uL MPV Neutrophils % % Lymphocytes % % Monocytes % % Eosinophils % % Basophils % % Neutrophils # (1.3-7.7) k/uL Lymphocytes # (1.0-4.8) k/uL Monocytes # (0-1.0) k/uL Eosinophils # (0-0.7) k/uL Basophils # (0-0.2) k/uL Hypochromasia Anisocytosis Microcytosis PT (9.0-12.0) sec INR (<1.2) APTT (22.0-30.0) sec D-Dimer 0.77 H (<0.60) mg/L FEU Sodium (137-145) mmol/L Potassium (3.5-5.1) mmol/L Chloride (98-107) mmol/L Carbon Dioxide (22-30) mmol/L Anion Gap mmol/L BUN (7-17) mg/dL Creatinine (0.52-1.04) mg/dL Est GFR (CKD-EPI)AfAm (>60 ml/min/1.73 sqM) Est GFR (CKD-EPI)NonAf (>60 ml/min/1.73 sqM) Glucose (74-99) mg/dL Lactic Ac Sepsis Rflx Y Plasma Lactic Acid Angel (0.7-2.0) mmol/L Calcium (8.4-10.2) mg/dL Total Bilirubin (0.2-1.3) mg/dL AST (14-36) U/L ALT (4-34) U/L Alkaline Phosphatase (38-126) U/L Troponin I (0.000-0.034) ng/mL NT-Pro-B Natriuret Pep pg/mL Total Protein (6.3-8.2) g/dL Albumin (3.5-5.0) g/dL Coronavirus (PCR) (Not Detectd) Disposition Clinical Impression: Dyspnea Disposition: ADMITTED IP TO THIS HOSP Referrals: Surinder Rodríguez MD [Primary Care Provider] - 1-2 days Time of Disposition: 17:27
--- NOTE | 2023-06-11 17:59 | CT ---
EXAMINATION TYPE: CT angio chest CT DLP: 398.1 mGycm, Automated exposure control for dose reduction was used. DATE OF EXAM: 06/11/2023 5:49 PM COMPARISON: Chest radiograph from same day. Multiple CTs of the chest with most recent on 01/13/2023 . CLINICAL INDICATION:Female, 72 years old with history of dyspnea; Dyspnea, cardiac hx, COPD. TECHNIQUE/CONTRAST: CTA scan of the thorax is performed with IV Contrast, patient injected with 100 mL of Isovue 370, MIP images are created and reviewed these are created on a separate workstation.. FINDINGS: Pulmonary Artery: There is no evidence for a filling defect within the pulmonary vasculature to sugge st acute pulmonary embolism. The pulmonary artery is of normal size. Lungs/Pleura: No evidence of focal consolidation, pleural effusion or pneumothorax. Airway: Large airways are patent. Heart: The heart is mildly enlarged for size. Moderate coronary artery calcifications are present. Vasculature: No evidence of aortic aneurysm. Mediastinum: No gross evidence of adenopathy. Musculoskeletal: Mild degenerative disc disease changes are present throughout the thoracolumbar spin e. Sternotomy wires are present. Soft Tissues: Unremarkable. Lower neck: Heterogenous multinodular goiter of the thyroid gland. Upper Abdomen: The gallbladder surgically absent. IMPRESSION: 1. No evidence of pulmonary embolism. 2. No acute process.
[2023-06-11] MEDS: AZITHROMYCIN 500 MG in SODIUM CHLORIDE 0.9% 250 ML IVPB SCH (18:23)
[2023-06-11] MEDS: methylPREDNISolone SOD SUCCI 125 MG/2 ML VIAL IV SCH (19:51)
[2023-06-11] MEDS: IPRATROPIUM-ALBUTEROL 3 ML NEB INHALATION SCH (19:58)
[2023-06-12] MEDS: methylPREDNISolone SOD SUCCI 125 MG/2 ML VIAL IV SCH ×2 (00:20→18:02)
[2023-06-12] MEDS ORDERED: traMADol 50 MG TAB PO STA (00:38)
[2023-06-12] MEDS: BACLOFEN 10 MG TAB PO PRN ×2 (00:44→08:45)
--- NOTE | 2023-06-12 03:20 | P.CNPUL ---
History of Present Illness Consult date: 06/12/23 Requesting physician: Denys Lee Reason for consult: asthma Chief complaint: Shortness of breath and cough over the last 24 hours History of present illness: I am seeing this patient in no consultation today 06/12/2023 for suspected COPD exacerbation. Patient is a 72-year-old white female past medical history significant for COPD/asthma, coronary artery disease with previous coronary artery bypass grafting and subsequent stenting to the PDA, congestive heart failure, diabetes mellitus, hypertension, hyperlipidemia, fibromyalgia, and is an ex tobacco smoker of over 30 years ago.. Her primary care provider is Dr. Rodríguez. She does not routinely follow with a boardmarker. Patient presented to the emergency room yesterday afternoon complaining of progressively worsening shortness of breath over the last 24 hours. This was associated with a congested nonproductive cough. She complains of subjective fevers. Patient is currently sitting up in bed, on room air, in no acute distress. Chest x-ray on arrival did not show any infiltrates or evidence of pneumonia. CBC on arrival was unremarkable. No leukocytosis. BMP on arrival was unremarkable. Troponins mildly elevated at 0.038, 0.043, and down to 0.21. Denies any chest pain, heart palpitations, lower extremity swelling, orthopnea. NT proBNP mildly elevated at 1940. No chest x-ray evidence of congestion or heart failure. Negative for COVID-19. D-dimer was mildly elevated at 0.77. A follow-up chest CTA did not show any evidence of pulmonary embolism. Patient has been started empirically on azithromycin. Currently afebrile. Also started on a combination of bronchodilators, Symbicort inhaler, and IV Solu-Medrol. On my clinical evaluation, the patient's COPD is not particularly active. She is hemodynamically stable. Review of Systems REVIEW OF SYSTEMS: CONSTITUTIONAL: Denies any recent significant weight loss or weight gain. EYES: Denies change in vision. EARS, NOSE, MOUTH, THROAT: Denies headaches, denies sore throat. CARDIOVASCULAR: Denies chest pain, palpitations or syncopal episodes. RESPIRATORY: See HPI GASTROINTESTINAL: Denies change in appetite, abdominal pain, nausea and vomiting, or diarrhea GENITOURINARY: Denies hematuria, denies infections. MUSKULOSKELETAL: Denies pain, denies swelling. INTEGUMENTARY: Denies rash, denies eczema. NEUROLOGICAL: Denies recent memory loss, no recent seizure activity. PSYCHIATRIC: Denies anxiety, denies depression. HEMATOLOGIC/LYMPHATIC: Denies anemia, denies enlarged lymph node Past Medical History Past Medical History: Asthma, Coronary Artery Disease (CAD), Heart Failure, COPD, Diabetes Mellitus, Fibromyalgia, Hyperlipidemia, Hypertension, Musculos keletal Disorder, Osteoarthritis (OA), Sleep Apnea/CPAP/BIPAP Additional Past Medical History / Comment(s): TESTED POSITIVE FOR LUPUS (STATES NO SYMPTOMS), DOES NOT USE CPAP, SEASONAL ALLERGIES, STATES 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 Poly substance abuse 07/19/21 admitted for Acute delirium History of Any Multi-Drug Resistant Organisms: None Reported Past Surgical History: Cholecystectomy, Coronary Bypass/CABG, Hernia Repair, Orthopedic Surgery, Tonsillectomy, Tubal Ligation Additional Past Surgical History / Comment(s): LEFT KNEE ARTHROSCOPY, BMT AND MYRINGOPLASTY, umbilical hernia repair, CABG 2020 Past Anesthesia/Blood Transfusion Reactions: No Reported Reaction Additional Past Anesthesia/Blood Transfusion Reaction / Comment(s): STATES AFTER LAST EAR SX (11/2013) HAD SORE MUSCLES AND WAS WEAK FOR 3-4 DAYS Past Psychological History: Unable to Obtain Smoking Status: Former smoker Past Alcohol Use History: None Reported Past Drug Use History: None Reported, Marijuana - Past Family History Sister(s) Family Medical History: Cancer Brother(s) Family Medical History: Cancer Additional Family Medical History / Comment(s): brother had heart valve replacement Mother Family Medical History: Chest Pain / Angina, Diabetes Mellitus, Hypertension Father History Unknown: Yes Additional Family Medical History / Comment(s): , "had bad lungs" per patient, was a smoker Medications and Allergies Home Medications Medication Instructions Recorded Confirmed Type traMADol HCl [Ultram] 50 mg PO TID PRN 11/04/15 06/11/23 History Metoprolol Succinate (ER) [Toprol 25 mg PO DAILY tab 12/14/22 06/11/23 Rx XL] Ibuprofen [Motrin] 800 mg PO TID PRN 06/11/23 06/11/23 History traZODone HCL [Desyrel] 50 mg PO HS PRN 06/11/23 06/11/23 History Allergies Allergy/AdvReac Type Severity Reaction Status Date / Time cephalexin Allergy Anaphylaxis Verified 06/11/23 18:10 cephalexin monohydrate Allergy Anaphylaxis Verified 06/11/23 18:10 [From Keflex] Sulfa (Sulfonamide Allergy Rash/Hives Verified 06/11/23 18:10 Antibiotics) Physical Exam Vitals: Vital Signs Temp Pulse Resp BP Pulse Ox 06/12/23 02:05 102 H 18 119/72 95 06/11/23 22:00 20 113/73 98 06/11/23 20:56 112 H 18 131/76 98 06/11/23 20:05 109 H 06/11/23 19:58 104 H 06/11/23 19:00 109 H 22 156/99 98 06/11/23 18:00 102 H 20 126/86 100 06/11/23 17:00 98 20 111/95 99 06/11/23 16:21 103 H 20 118/87 99 06/11/23 16:00 93 20 106/82 97 06/11/23 15:37 86 06/11/23 15:27 90 06/11/23 15:00 86 20 130/63 100 06/11/23 14:00 93 20 118/66 98 06/11/23 13:12 98.9 F 108 H 24 144/78 97 Intake and Output 06/11/23 06/11/23 06/12/23 14:59 22:59 06:59 Other: Weight 85.729 kg GENERAL EXAM: Alert, 72-year-old white female appearing stated age, comfortable in no apparent distress. HEAD: Normocephalic and atraumatic EYES: Normal reaction of pupils, equal size. NOSE: Clear with pink turbinates. THROAT: No erythema or exudates. NECK: No masses, no JVD. CHEST: No chest wall deformity. LUNGS: Equal air entry with no crackles, wheeze, rhonchi or dullness. On room air. No conversational dyspnea or accessory muscle use.. CVS: S1 and S2 normal with no audible murmur, regular rhythm. No extra heart sounds ABDOMEN: No hepatosplenomegaly, active bowel sounds, no guarding or rigidity. SPINE: No scoliosis or deformity SKIN: No rashes CENTRAL NERVOUS SYSTEM: No focal deficits, tone is normal in all 4 extremities. EXTREMITIES: There is no peripheral edema, clubbing, or cyanosis. Peripheral pulses are intact. Results - Laboratory Findings CBC and BMP: 06/11/23 13:35 06/11/23 13:35 PT/INR, D-dimer PT 10.2 sec (9.0-12.0) 06/11/23 13:35 INR 1.0 (<1.2) 06/11/23 13:35 D-Dimer 0.77 mg/L FEU (<0.60) H 06/11/23 13:35 Abnormal lab findings: Abnormal Labs 06/11/23 06/11/23 06/11/23 13:35 13:35 13:35 Hgb 11.2 L MCV 71.4 L MCH 23.0 L RDW 16.8 H D-Dimer Sodium 136 L Carbon Dioxide 19 L Glucose 148 H Plasma Lactic Acid Angel 2.2 H* Troponin I 06/11/23 06/11/23 06/11/23 13:35 13:35 17:47 Hgb MCV MCH RDW D-Dimer 0.77 H Sodium Carbon Dioxide Glucose Plasma Lactic Acid Angel Troponin I 0.038 H* 0.043 H* - Diagnostic Findings Chest x-ray: image reviewed CT scan - chest: image reviewed Assessment and Plan Assessment: Acute COPD exacerbation, chest x-ray on arrival showed no acute infiltrates or evidence of pneumonia. Negative for COVID-19. Elevated d-dimer, pulmonary embolism ruled out Elevated troponins, trending down and normalized to 0.021 Coronary artery disease, with previous coronary artery bypass grafting, and subsequent stenting of the PDA 12/12/2022 Ischemic cardiomyopathy, with an improved ejection fraction of 40% Essential hypertension Hyperlipidemia Thyroid nodule, that needs to be followed up outpatient Fibromyalgia Current marijuana smoker. Ex-tobacco smoker Plan: Patient's medications, labs, imaging reviewed On room air Currently receiving empiric antibiotics, we will check procalcitonin level Continue combination of DuoNeb's and Symbicort inhaler Start prednisone taper Anticipate discharge within the next 24-48 hours I have personally seen and examined the patient, performed the documentation and the assessment and plan as written. Number of minutes spent on the visit:20 This is a joint evaluation that was done along with the nurse practitioner. The patient is being hospitalized for an acute COPD exacerbation. This evaluation was done in more than 30 minutes. The patient is currently on a combination of bronchodilators, the patient will be kept on IV Solu-Medrol. She remains bronchospastic and wheezy. Titrate oxygen flow to maintain a saturation above 90%. CT of the chest was done that shows no evidence of any acute pulmonary embolism. There is no acute abnormalities. There is underlying coronary amaya cification. No focal consolidation, pleural effusion or pneumothorax. She does have a heterogeneous multinodular goiter. The patient was also seen by cardiology. No cardiac intervention is recommended this point in time. She smokes marijuana daily basis which could be potentially one of the triggers for her COPD exacerbation. Time with Patient: Greater than 30
[2023-06-12] MEDS: SYMBICORT 160-4.5 MCG INHALER INHALATION SCH ×2 (07:41→19:41)
[2023-06-12] MEDS: IPRATROPIUM-ALBUTEROL 3 ML NEB INHALATION SCH ×4 (07:41→19:41)
[2023-06-12] MEDS: AZITHROMYCIN 500 MG in SODIUM CHLORIDE 0.9% 250 ML IVPB SCH (08:45)
[2023-06-12] MEDS ORDERED: predniSONE 20 MG TAB PO SCH (09:00)
[2023-06-12] MEDS ORDERED: IBUPROFEN 800 MG TAB PO PRN (09:13)
[2023-06-12] MEDS ORDERED: traZODone HCL 50 MG TAB PO PRN (09:13)
[2023-06-12] MEDS ORDERED: DILTIAZEM 5 MG/ML 5 ML VIAL IVP STA (09:59)
[2023-06-12] MEDS: ASPIRIN 81 MG PO SCH (10:11)
[2023-06-12] MEDS: METOPROLOL SUCCINATE (ER) 25 MG TAB.ER.24H PO SCH (10:11)
[2023-06-12] MEDS: traMADol 50 MG TAB PO PRN (10:11)
[2023-06-12] MEDS: CLOPIDOGREL 75 MG TAB PO SCH (10:11)
[2023-06-12] MEDS ORDERED: DILTIAZEM 5 MG/ML 5 ML VIAL IVP ONE (11:00)
--- NOTE | 2023-06-12 11:56 | P.CRDCN ---
History of Present Illness History of present illness: HISTORY OF PRESENT ILLNESS: This is a 72-year-old female with a past medical history significant for COPD, hypertension, hyperlipidemia, diabetes, and former nicotine dependence. Patient does not follow with a wool and pelt grader. We have been asked to see the patient in c onsultation for shortness of breath. Patient examined at the bedside in the emergency room. Patient presented to hospitals a chief complaint of shortness of breath. Patient is currently being treated for COPD exacerbation. She is receiving nebulizer treatments and received a dose of IV steroids in the ER. Patient is in SVT at time of examination with a heart rate in the 150-160s. * Bedside telemetry reveals SVT with a heart rate 150-160s * Chest xray chronic changes without acute pulmonary process. No significant change from prior. * Laboratory data: WBC 5.9. Hemoglobin 11.2. Platelet count 225. Sodium 136. Potassium 4.5. BUN 10. Creatinine 0.53. Lactic acid 2.2. Troponin 0.03. 0.043. 0.021. ProBNP 1940. * Current home cardiac medications include metoprolol succinate 25 mg daily * Most recent echocardiogram obtained in October 2022 with EF 40% (limited study) * Cardiac catheterization history: November 2022 with stenting to the proximal PDA REVIEW OF SYSTEMS: At the time of my exam: CONSTITUTIONAL: Denies fever or chills. HEENT: Denies blurred vision, vision changes, or eye pain. Denies hemoptysis CARDIOVASCULAR: Denies chest pain. Denies orthopnea. Denies PND. Denies palpitations RESPIRATORY: Denies shortness of breath. GASTROINTESTINAL: Denies abdominal pain. Denies nausea or vomiting. HEMATOLOGIC: Denies bleeding disorders. GENITOURINARY: Denies any blood in urine. SKIN: Denies pruitis. Denies rash. PHYSICAL EXAM: VITAL SIGNS: Reviewed. GENERAL: Well-developed in no acute distress. HEENT: Head is normocephalic. Pupils are equal, round. Sclerae anicteric. Mucous membranes of the mouth are moist. Neck supple. No JVD or thyromegaly LUNGS: Respirations even and unlabored. Lungs with decreased air exchange and wheezing throughout HEART: Tachycardic. Regular rate and rhythm. S1 and S2 heard. ABDOMEN: Soft. Nondistended. Nontender. EXTREMITIES: Normal range of motion. No clubbing or cyanosis. Peripheral pulses intact. No lower extremity edema NEUROLOGIC: Awake and alert. Oriented x 3. ASSESSMENT: Shortness of breath Acute COPD exacerbation SVT Coronary artery disease with previous PCI, most recently to proximal PDA in November 2022 Ischemic cardiomyopathy, ejection fraction 40% Hypertension Hyperlipidemia Diabetes Former nicotine dependence PLAN: Resume home cardiac medications Give Cardizem 10mg IVP x 1. Repeat in 1 hour. Continue telemetry monitoring. Pulmonary following. Recommend scheduled IV steroids Further recommendations pending patient course. Nurse practitioner note has been reviewed by physician. Signing provider agrees with the documented findings, assessment, and plan of care. 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 Poly substance abuse 06/24 05/12 admitted for Acute delirium History of Any Multi-Drug Resistant Organisms: None Reported Past Surgical History: Cholecystectomy, Coronary Bypass/CABG, Hernia Repair, Orthopedic Surgery, Tonsillectomy, Tubal Ligation Additional Past Surgical History / Comment(s): LEFT KNEE ARTHROSCOPY, BMT AND MYRINGOPLASTY, umbilical hernia repair, CABG 2020 Past Anesthesia/Blood Transfusion Reactions: No Reported Reaction Additional Past Anesthesia/Blood Transfusion Reaction / Comment(s): STATES AFTER LAST EAR SX (11/2013) HAD SORE MUSCLES AND WAS WEAK FOR 3-4 DAYS Past Psychological History: Unable to Obtain Smoking Status: Former smoker Past Alcohol Use History: None Reported Past Drug Use History: None Reported, Marijuana - Past Family History Sister(s) Family Medical History: Cancer Brother(s) Family Medical History: Cancer Additional Family Medical History / Comment(s): brother had heart valve replacement Mother Family Medical History: Chest Pain / Angina, Diabetes Mellitus, Hypertension Father History Unknown: Yes Additional Family Medical History / Comment(s): , "had bad lungs" per patient, was a smoker Medications and Allergies Home Medications Medication Instructions Recorded Confirmed Type traMADol HCl [Ultram] 50 mg PO TID PRN 11/04/15 06/11/23 History Metoprolol Succinate (ER) [Toprol 25 mg PO DAILY tab 12/14/22 06/11/23 Rx XL] Ibuprofen [Motrin] 800 mg PO TID PRN 06/11/23 06/11/23 History traZODone HCL [Desyrel] 50 mg PO HS PRN 06/11/23 06/11/23 History Allergies Allergy/AdvReac Type Severity Reaction Status Date / Time cephalexin Allergy Anaphylaxis Verified 06/11/23 18:10 cephalexin monohydrate Allergy Anaphylaxis Verified 06/11/23 18:10 [From Keflex] Sulfa (Sulfonamide Allergy Rash/Hives Verified 06/11/23 18:10 Antibiotics) Physical Exam Vitals: Vital Signs Temp Pulse Resp BP Pulse Ox 06/12/23 11:36 114 H 06/12/23 11:22 107 H 06/12/23 10:00 94 L 06/12/23 08:00 98.5 F 110 H 16 124/77 99 06/12/23 07:51 102 H 06/12/23 07:41 105 H 98 06/12/23 07:20 98 18 124/77 97 06/12/23 03:59 99 18 128/80 98 06/12/23 02:05 102 H 18 119/72 95 06/11/23 22:00 20 113/73 98 06/11/23 20:56 112 H 18 131/76 98 06/11/23 20:05 109 H 06/11/23 19:58 104 H 06/11/23 19:00 109 H 22 156/99 98 06/11/23 18:00 102 H 20 126/86 100 06/11/23 17:00 98 20 111/95 99 06/11/23 16:21 103 H 20 118/87 99 06/11/23 16:00 93 20 106/82 97 06/11/23 15:37 86 06/11/23 15:27 90 06/11/23 15:00 86 20 130/63 100 06/11/23 14:00 93 20 118/66 98 06/11/23 13:12 98.9 F 108 H 24 144/78 97 Results 06/11/23 13:35 06/11/23 13:35 Cardiac Enzymes 06/11/23 06/11/23 06/11/23 Range/Units 13:35 13:35 17:47 AST 33 (14-36) U/L Troponin I 0.038 H* 0.043 H* (0.000-0.034) ng/mL 06/11/23 Range/Units 21:13 AST (14-36) U/L Troponin I 0.021 (0.000-0.034) ng/mL Coagulation 06/11/23 Range/Units 13:35 PT 10.2 (9.0-12.0) sec APTT 24.5 (22.0-30.0) sec CBC 06/11/23 Range/Units 13:35 WBC 5.9 (3.8-10.6) k/uL RBC 4.86 (3.80-5.40) m/uL Hgb 11.2 L (11.4-16.0) gm/dL Hct 34.7 (34.0-46.0) % Plt Count 225 (150-450) k/uL Comprehensive Metabolic Panel 06/11/23 Range/Units 13:35 Sodium 136 L (137-145) mmol/L Potassium 4.5 (3.5-5.1) mmol/L Chloride 105 (98-107) mmol/L Carbon Dioxide 19 L (22-30) mmol/L BUN 10 (7-17) mg/dL Creatinine 0.52 (0.52-1.04) mg/dL Glucose 148 H (74-99) mg/dL Calcium 8.8 (8.4-10.2) mg/dL AST 33 (14-36) U/L ALT 29 (4-34) U/L Alkaline Phosphatase 115 (38-126) U/L Total Protein 7.4 (6.3-8.2) g/dL Albumin 3.9 (3.5-5.0) g/dL Current Medications Generic Name Dose Route Start Last Admin Trade Name Freq PRN Reason Stop Dose Admin Albuterol/Ipratropium 3 ml 06/11/23 20:00 06/12/23 11:22 Ipratropium-Albuterol 3 Ml Neb INHALATION 3 ml RT-QID DIMA Administration Albuterol/Ipratropium 3 ml 06/11/23 17:28 Ipratropium-Albuterol 3 Ml Neb INHALATION RT-Q2H PRN Shortness Of Breath Or Wheezing Aspirin 81 mg 06/12/23 10:30 06/12/23 10:11 Aspirin 81 Mg PO 81 mg DAILY DIMA Administration Atorvastatin Calcium 40 mg 06/12/23 21:00 Atorvastatin 40 Mg Tab PO HS DIMA Baclofen 10 mg 06/12/23 00:39 06/12/23 08:45 Baclofen 10 Mg Tab PO 10 mg QID PRN Administration Muscle Spasm Budesonide/Formoterol Fumarate 2 puff 06/12/23 08:00 06/12/23 07:41 Symbicort 160-4.5 Mcg Inhaler INHALATION 2 puff RT-BID DIMA Administration Clopidogrel Bisulfate 75 mg 06/12/23 10:15 06/12/23 10:11 Clopidogrel 75 Mg Tab PO 75 mg DAILY DIMA Administration Azithromycin 500 mg/ Sodium 250 mls @ 250 mls/hr 06/11/23 17:30 06/12/23 08:45 Chloride IVPB 06/13/23 09:59 250 mls/hr DAILY DIMA Administration Protocol Ibuprofen 800 mg 06/12/23 09:13 06/12/23 10:11 Ibuprofen 800 Mg Tab PO 800 mg TID PRN Administration Pain Metoprolol Succinate 25 mg 06/12/23 09:30 06/12/23 10:11 Metoprolol Succinate (Er) 25 Mg Tab.Er.24h PO 25 mg DAILY DIMA Administration Naloxone HCl 0.2 mg 06/11/23 17:28 Naloxone 0.4 Mg/Ml 1 Ml Vial IV Q2M PRN Opioid Reversal Prednisone 40 mg 06/12/23 09:00 06/12/23 08:45 Prednisone 20 Mg Tab PO 40 mg DAILY DIMA Administration Tramadol HCl 50 mg 06/12/23 09:13 06/12/23 10:11 Tramadol 50 Mg Tab PO 50 mg TID PRN Administration Pain Trazodone HCl 50 mg 06/12/23 09:13 Trazodone Hcl 50 Mg Tab PO HS PRN Insomnia 06/11/23 13:35 06/11/23 13:35
--- NOTE | 2023-06-12 16:59 | P.HPIM ---
History of Present Illness H&P Date: 06/12/23 Mari Moore, is a 72-year-old female who presented to [facility] emergency room with a chief complaint of shortness of breath and chest pain when she takes a deep breath. She was evaluated in the emergency room vital examination on presentation revealed a temperature of 98.9 pulse 108 respiration 24 blood pressure 144/78 pulse ox 97% on room air Laboratory data reveals a white blood count of 5.9 hemoglobin 11.2 platelet count 255 sodium 136 potassium 4.5 chloride 105 CO2 19 BUN 10 creatinine 0.52 lactic acid on presentation was elevated at 2.2 troponin level 0.038 d-dimer 0.77 COVID-19 PCR was negative. Testing in the emergency room revealed chest x-ray done in the emergency room revealed chronic changes without acute pulmonary process, CT angiogram of the chest revealed no evidence of pulmonary embolism no acute process. EKG revealed sinus rhythm with short MA interval with frequent supraventricular premature complexes. 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 Poly substance abuse 07/19/21 admitted for Acute delirium History of Any Multi-Drug Resistant Organisms: None Reported Past Surgical History: Cholecystectomy, Coronary Bypass/CABG, Hernia Repair, Orthopedic Surgery, Tonsillectomy, Tubal Ligation Additional Past Surgical History / Comment(s): LEFT KNEE ARTHROSCOPY, BMT AND MYRINGOPLASTY, umbilical hernia repair, CABG 2020 Past Anesthesia/Blood Transfusion Reactions: No Reported Reaction Additional Past Anesthesia/Blood Transfusion Reaction / Comment(s): STATES AFTER LAST EAR SX (11/2013) HAD SORE MUSCLES AND WAS WEAK FOR 3-4 DAYS Past Psychological History: Unable to Obtain Smoking Status: Former smoker Past Alcohol Use History: None Reported Past Drug Use History: None Reported, Marijuana - Past Family History Sister(s) Family Medical History: Cancer Brother(s) Family Medical History: Cancer Additional Family Medical History / Comment(s): brother had heart valve repla cement Mother Family Medical History: Chest Pain / Angina, Diabetes Mellitus, Hypertension Father History Unknown: Yes Additional Family Medical History / Comment(s): , "had bad lungs" per patient, was a smoker Medications and Allergies Home Medications Medication Instructions Recorded Confirmed Type traMADol HCl [Ultram] 50 mg PO TID PRN 11/04/15 06/11/23 History Metoprolol Succinate (ER) [Toprol 25 mg PO DAILY tab 12/14/22 06/11/23 Rx XL] Ibuprofen [Motrin] 800 mg PO TID PRN 06/11/23 06/11/23 History traZODone HCL [Desyrel] 50 mg PO HS PRN 06/11/23 06/11/23 History Allergies Allergy/AdvReac Type Severity Reaction Status Date / Time cephalexin Allergy Anaphylaxis Verified 06/11/23 18:10 cephalexin monohydrate Allergy Anaphylaxis Verified 06/11/23 18:10 [From Keflex] Sulfa (Sulfonamide Allergy Rash/Hives Verified 06/11/23 18:10 Antibiotics) Physical Exam Vitals: Vital Signs Temp Pulse Resp BP Pulse Ox 06/12/23 07:51 102 H 06/12/23 07:41 105 H 98 06/12/23 07:20 98 18 124/77 97 06/12/23 03:59 99 18 128/80 98 06/12/23 02:05 102 H 18 119/72 95 06/11/23 22:00 20 113/73 98 06/11/23 20:56 112 H 18 131/76 98 06/11/23 20:05 109 H 06/11/23 19:58 104 H 06/11/23 19:00 109 H 22 156/99 98 06/11/23 18:00 102 H 20 126/86 100 06/11/23 17:00 98 20 111/95 99 06/11/23 16:21 103 H 20 118/87 99 06/11/23 16:00 93 20 106/82 97 06/11/23 15:37 86 06/11/23 15:27 90 06/11/23 15:00 86 20 130/63 100 06/11/23 14:00 93 20 118/66 98 06/11/23 13:12 98.9 F 108 H 24 144/78 97 In general patient is alert and oriented x 3 in no distress HEENT head normocephalic and atraumatic Neck is supple no JVD no goiter no lymphadenopathy no carotid bruit Chest examination reveals a scattered crackles bilaterally with mild wheezing Cardiac exam reveals regular heart sounds S1 and S2 no gallops no murmurs Abdomen is soft nontender no organomegaly with normal bowel sounds Extremity exam reveals no edema no cyanosis or clubbing Neurological examination reveals no gross focal deficits Results CBC & Chem 7: 06/11/23 13:35 06/11/23 13:35 Labs: Abnormal Lab Results - Last 24 Hours (Table) 06/11/23 06/11/23 06/11/23 Range/Units 13:35 13:35 13:35 Hgb 11.2 L (11.4-16.0) gm/dL MCV 71.4 L (80.0-100.0) fL MCH 23.0 L (25.0-35.0) pg RDW 16.8 H (11.5-15.5) % D-Dimer (<0.60) mg/L FEU Sodium 136 L (137-145) mmol/L Carbon Dioxide 19 L (22-30) mmol/L Glucose 148 H (74-99) mg/dL Plasma Lactic Acid Angel 2.2 H* (0.7-2.0) mmol/L Troponin I (0.000-0.034) ng/mL 06/11/23 06/11/23 06/11/23 Range/Units 13:35 13:35 17:47 Hgb (11.4-16.0) gm/dL MCV (80.0-100.0) fL MCH (25.0-35.0) pg RDW (11.5-15.5) % D-Dimer 0.77 H (<0.60) mg/L FEU Sodium (137-145) mmol/L Carbon Dioxide (22-30) mmol/L Glucose (74-99) mg/dL Plasma Lactic Acid Angel (0.7-2.0) mmol/L Troponin I 0.038 H* 0.043 H* (0.000-0.034) ng/mL Assessment and Plan Plan: Acute exacerbation of chronic obstructive pulmonary disease Acute purulent bronchitis Episodes of chest pain Episode of supraventricular tachycardia Mild elevation in troponin level Underlying history of coronary artery disease with previous history of angioplasty and stent placement Underlying history of ischemic cardiomyopathy with decreased ejection fraction to 40% Underlying history of hypertension Underlying history of hyperlipidemia Underlying history of diabetes mellitus At this time patient was seen and examined in the emergency room Home medications reviewed and reordered Cardiology consultation and pulmonary consultation was requested Patient was started on IV Zithromax and IV Solu-Medrol and inhaled bronchodilators For DVT prophylaxis subcu Lovenox Will follow closely
[2023-06-12] MEDS: ENOXAPARIN 40 MG/0.4 ML SYRINGE SQ SCH (18:06)
[2023-06-12] MEDS: ATORVASTATIN 40 MG TAB PO SCH (20:12)
[2023-06-12 20:56] LABS: Glucose,Whole Blood 407 mg/dL (70-110)
[2023-06-12] MEDS ORDERED: DEXTROSE 50% SYRINGE 50 ML IVP PRN ×2 (21:51)
[2023-06-12] MEDS: INSULIN ASPART (NovoLOG) 100 UNIT/ML VIAL SQ SCH (22:07)
[2023-06-13] MEDS: traMADol 50 MG TAB PO PRN ×2 (00:29→09:14)
[2023-06-13] MEDS: methylPREDNISolone SOD SUCCI 125 MG/2 ML VIAL IV SCH ×5 (00:29→23:28)
[2023-06-13] MEDS: BACLOFEN 10 MG TAB PO PRN ×2 (00:29→09:14)
[2023-06-13 06:19] LABS: Glucose,Whole Blood 268 mg/dL (70-110)
[2023-06-13] MEDS: INSULIN ASPART (NovoLOG) 100 UNIT/ML VIAL SQ SCH ×4 (06:30→21:21)
[2023-06-13] MEDS ORDERED: INSULIN ASPART (NovoLOG) 100 UNIT/ML VIAL SQ SCH (07:30)
[2023-06-13] MEDS: METOPROLOL SUCCINATE (ER) 25 MG TAB.ER.24H PO SCH (08:18)
[2023-06-13] MEDS: ASPIRIN 81 MG PO SCH (08:18)
[2023-06-13] MEDS: CLOPIDOGREL 75 MG TAB PO SCH (08:18)
[2023-06-13] MEDS: AZITHROMYCIN 500 MG in SODIUM CHLORIDE 0.9% 250 ML IVPB SCH (08:18)
[2023-06-13] MEDS: ENOXAPARIN 40 MG/0.4 ML SYRINGE SQ SCH (08:18)
[2023-06-13 09:10] LABS: AST 31 U/L (14-36); African American GFR (CKD) >90 (>60 ml/min/1.73 sqM); Albumin 3.6 g/dL (3.5-5.0); Alkaline Phosphatase 93 U/L (38-126); Anion Gap 10 mmol/L; Blood Urea Nitrogen 16 mg/dL (7-17); Calcium 8.7 mg/dL (8.4-10.2); Carbon Dioxide 21 mmol/L (22-30); Chloride 102 mmol/L (98-107); Glucose 284 mg/dL (74-99); Non-African American GFR(CKD) >90 (>60 ml/min/1.73 sqM); Potassium 4.7 mmol/L (3.5-5.1); Sodium 133 mmol/L (137-145); Total Bilirubin 0.3 mg/dL (0.2-1.3); Total Protein 6.6 g/dL (6.3-8.2)
[2023-06-13] MEDS: SYMBICORT 160-4.5 MCG INHALER INHALATION SCH ×2 (09:13→20:11)
[2023-06-13] MEDS: IPRATROPIUM-ALBUTEROL 3 ML NEB INHALATION SCH ×4 (09:13→20:11)
[2023-06-13 09:18] LABS: ALT 36 U/L (4-34); Anisocytosis Slight; Basophils % (A) 0 %; Eosinophils % (A) 0 %; HCT 34.4 % (34.0-46.0); HGB 10.2 gm/dL (11.4-16.0); Hypochromasia Marked; Lymphocytes # (A) 0.6 k/uL (1.0-4.8); Lymphocytes % (A) 5 %; MCHC 29.7 g/dL (31.0-37.0); MCV 74.1 fL (80.0-100.0); Mean Platelet Volume 8.9; Microcytosis Moderate; Monocytes # (A) 0.2 k/uL (0-1.0); Monocytes % (A) 1 %; Neutrophils # (A) 12.1 k/uL (1.3-7.7); Neutrophils % (A) 94 %; Platelet Count 237 k/uL (150-450); RBC 4.64 m/uL (3.80-5.40); RDW 16.7 % (11.5-15.5); WBC 12.8 k/uL (3.8-10.6)
[2023-06-13 12:03] LABS: Glucose,Whole Blood 259 mg/dL (70-110)
--- NOTE | 2023-06-13 12:41 | P.PN ---
Subjective Progress Note Date: 06/13/23 I am seeing this patient in no consultation today 06/12/2023 for suspected COPD exacerbation. Patient is a 72-year-old white female past medical history significant for COPD/asthma, coronary artery disease with previous coronary artery bypass grafting and subsequent stenting to the PDA, congestive heart failure, diabetes mellitus, hypertension, hyperlipidemia, fibromyalgia, and is an ex tobacco smoker of over 30 years ago.. Her primary care provider is Dr. Rodríguez. She does not routinely follow with a radiology transcriptionist. Patient presented to the emergency room yesterday afternoon complaining of progressively worsening shortness of breath over the last 24 hours. This was associated with a congested nonproductive cough. She complains of subjective fevers. Patient is currently sitting up in bed, on room air, in no acute distress. Chest x-ray on arrival did not show any infiltrates or evidence of pneumonia. CBC on arrival was unremarkable. No leukocytosis. BMP on arrival was unremarkable. Troponins mildly elevated at 0.038, 0.043, and down to 0.21. Denies any chest pain, heart palpitations, lower extremity swelling, orthopnea. NT proBNP mildly elevated at 1940. No chest x-ray evidence of congestion or heart failure. Negative for COVID-19. D-dimer was mildly elevated at 0.77. A follow-up chest CTA did not show any evidence of pulmonary embolism. Patient has been started empirically on azithromycin. Currently afebrile. Also started on a combination of bronchodilators, Symbicort inhaler, and IV Solu-Medrol. On my clinical evaluation, the patient's COPD is not particularly active. She is hemodynamically stable. On today's evaluation of a 06/13 2023, the patient is feeling slightly improved compared to yesterday, she said bronchospastic and wheezy although less compared to yesterday and the patient is, comfortable and stable. She is on DuoNeb neb blotchiness on the clock, she is on Symbicort as maintenance and IV Solu-Medrol 60 mg every 6 hours. Her blood work from today shows that the discomfort of 12.8, hemoglobin was at 10.2, there is at 60 with a creatinine of 0.6 and a sodium level is at 133. LFTs are within normal limits. No altered mentation. No chest pain. CT antigram showed no evidence of any pulmonary embolism patient remains on Zithromax. Objective - Vital Signs Vital signs: Vital Signs Temp 98.0 F 06/13/23 04:00 Pulse 95 06/13/23 09:26 Resp 16 06/13/23 08:00 BP 92/51 06/13/23 08:00 Pulse Ox 99 06/13/23 09:15 FiO2 Intake & Output 06/12/23 06/13/23 06/13/23 18:59 06:59 18:59 Intake Total 200 240 Balance 200 240 Weight 85.729 kg 82.2 kg Intake: Oral 200 240 Other: # Voids 2 - Exam GENERAL EXAM: Alert, 72-year-old white female appearing stated age, comfortable in no apparent distress. HEAD: Normocephalic and atraumatic EYES: Normal reaction of pupils, equal size. NOSE: Clear with pink turbinates. THROAT: No erythema or exudates. NECK: No masses, no JVD. CHEST: No chest wall deformity. LUNGS: Equal air entry with no crackles, wheeze, rhonchi or dullness. On room air. No conversational dyspnea or accessory muscle use.. CVS: S1 and S2 normal with no audible murmur, regular rhythm. No extra heart sounds ABDOMEN: No hepatosplenomegaly, active bowel sounds, no guarding or rigidity. SPINE: No scoliosis or deformity SKIN: No rashes CENTRAL NERVOUS SYSTEM: No focal deficits, tone is normal in all 4 extremities. EXTREMITIES: There is no peripheral edema, clubbing, or cyanosis. Peripheral pulses are intact. - Labs CBC & Chem 7: 06/13/23 08:27 06/13/23 08:27 Labs: Abnormal Lab Results - Last 24 Hours (Table) 06/12/23 06/13/23 06/13/23 Range/Units 20:55 06:17 08:27 WBC 12.8 H (3.8-10.6) k/uL Hgb 10.2 L (11.4-16.0) gm/dL MCV 74.1 L (80.0-100.0) fL MCH 22.0 L (25.0-35.0) pg MCHC 29.7 L (31.0-37.0) g/dL RDW 16.7 H (11.5-15.5) % Neutrophils # 12.1 H (1.3-7.7) k/uL Lymphocytes # 0.6 L (1.0-4.8) k/uL Sodium (137-145) mmol/L Carbon Dioxide (22-30) mmol/L Glucose (74-99) mg/dL POC Glucose (mg/dL) 407 H 268 H (70-110) mg/dL ALT (4-34) U/L 06/13/23 Range/Units 08:27 WBC (3.8-10.6) k/uL Hgb (11.4-16.0) gm/dL MCV (80.0-100.0) fL MCH (25.0-35.0) pg MCHC (31.0-37.0) g/dL RDW (11.5-15.5) % Neutrophils # (1.3-7.7) k/uL Lymphocytes # (1.0-4.8) k/uL Sodium 133 L (137-145) mmol/L Carbon Dioxide 21 L (22-30) mmol/L Glucose 284 H (74-99) mg/dL POC Glucose (mg/dL) (70-110) mg/dL ALT 36 H (4-34) U/L Assessment and Plan Assessment: Acute COPD exacerbation, chest x-ray on arrival showed no acute infiltrates or evidence of pneumonia. Negative for COVID-19. Elevated d-dimer, pulmonary embolism ruled out Elevated troponins, trending down and normalized to 0.021 Coronary artery disease, with previous coronary artery bypass grafting, and subsequent stenting of the PDA 12/12/2022 Ischemic cardiomyopathy, with an improved ejection fraction of 40% Essential hypertension Hyperlipidemia Thyroid nodule, that needs to be followed up outpatient Fibromyalgia Current marijuana smoker. Ex-tobacco smoker Plan: Clinically improving Continue bronchodilators Continue IV Solu-Medrol Continue bronchodilators around the clock We'll continue to follow
[2023-06-13 16:45] LABS: Glucose,Whole Blood 333 mg/dL (70-110)
--- NOTE | 2023-06-13 17:10 | P.PN ---
Subjective Progress Note Date: 06/13/23 Mari Moore, is a 72-year-old female who presented to [facility] emergency room with a chief complaint of shortness of breath and chest pain when she takes a deep breath. She was evaluated in the emergency room vital examination on presentation revealed a temperature of 98.9 pulse 108 respiration 24 blood pressure 144/78 pulse ox 97% on room air Laboratory data reveals a white blood count of 5.9 hemoglobin 11.2 platelet count 255 sodium 136 potassium 4.5 chloride 105 CO2 19 BUN 10 creatinine 0.52 lactic acid on presentation was elevated at 2.2 troponin level 0.038 d-dimer 0.77 COVID-19 PCR was negative. Testing in the emergency room revealed chest x-ray done in the emergency room revealed chronic changes without acute pulmonary process, CT angiogram of the chest revealed no evidence of pulmonary embolism no acute process. EKG revealed sinus rhythm with short [place] interval with frequent supraventricular premature complexes. Patient was admitted to medical floor for further evaluation and treatment On 06/13/2023 patient was seen and examined on the medical floor she is alert and oriented 3 in no apparent distress she reports some improvement in her shortness of breath otherwise she denies any complaints at this time there is no fever or chills no headache or dizziness no chest pain she has occasional cough no nausea or vomiting no abdominal pain no diarrhea and no urinary symptoms Objective - Vital Signs Vital signs: Vital Signs Temp 98.0 F 06/13/23 04:00 Pulse 96 06/13/23 12:54 Resp 16 06/13/23 12:00 BP 113/69 06/13/23 12:00 Pulse Ox 98 06/13/23 12:00 FiO2 Intake & Output 06/12/23 06/13/23 06/13/23 18:59 06:59 18:59 Intake Total 200 480 Balance 200 480 Weight 85.729 kg 82.2 kg Intake: Oral 200 480 Other: # Voids 2 - Exam In general patient is alert and oriented x 3 in no distress HEENT head normocephalic and atraumatic Neck is supple no JVD no goiter no lymphadenopathy no carotid bruit Chest examination reveals a scattered crackles bilaterally with mild wheezing Cardiac exam reveals regular heart sounds S1 and S2 no gallops no murmurs Abdomen is soft nontender no organomegaly with normal bowel sounds Extremity exam reveals no edema no cyanosis or clubbing Neurological examination reveals no gross focal deficits - Labs CBC & Chem 7: 06/13/23 08:27 06/13/23 08:27 Labs: Abnormal Lab Results - Last 24 Hours (Table) 06/12/23 06/13/23 06/13/23 Range/Units 20:55 06:17 08:27 WBC 12.8 H (3.8-10.6) k/uL Hgb 10.2 L (11.4-16.0) gm/dL MCV 74.1 L (80.0-100.0) fL MCH 22.0 L (25.0-35.0) pg MCHC 29.7 L (31.0-37.0) g/dL RDW 16.7 H (11.5-15.5) % Neutrophils # 12.1 H (1.3-7.7) k/uL Lymphocytes # 0.6 L (1.0-4.8) k/uL Sodium (137-145) mmol/L Carbon Dioxide (22-30) mmol/L Glucose (74-99) mg/dL POC Glucose (mg/dL) 407 H 268 H (70-110) mg/dL Hemoglobin A1c (<=6.0) % ALT (4-34) U/L 06/13/23 06/13/23 06/13/23 Range/Units 08:27 08:27 11:55 WBC (3.8-10.6) k/uL Hgb (11.4-16.0) gm/dL MCV (80.0-100.0) fL MCH (25.0-35.0) pg MCHC (31.0-37.0) g/dL RDW (11.5-15.5) % Neutrophils # (1.3-7.7) k/uL Lymphocytes # (1.0-4.8) k/uL Sodium 133 L (137-145) mmol/L Carbon Dioxide 21 L (22-30) mmol/L Glucose 284 H (74-99) mg/dL POC Glucose (mg/dL) 259 H (70-110) mg/dL Hemoglobin A1c 6.9 H (<=6.0) % ALT 36 H (4-34) U/L Microbiology - Last 24 Hours (Table) 06/11/23 17:25 Blood Culture - Preliminary Blood 06/11/23 17:40 Blood Culture - Preliminary Blood Assessment and Plan Plan: Acute exacerbation of chronic obstructive pulmonary disease Acute purulent bronchitis Episodes of chest pain Episode of supraventricular tachycardia Mild elevation in troponin level Underlying history of coronary artery disease with previous history of angioplasty and stent placement Underlying history of ischemic cardiomyopathy with decreased ejection fraction to 40% Underlying history of hypertension Underlying history of hyperlipidemia Underlying history of diabetes mellitus At this time patient was seen and examined in the emergency room Home medications reviewed and reordered Cardiology consultation and pulmonary consultation was requested Patient was started on IV Zithromax and IV Solu-Medrol and inhaled bronchodilators For DVT prophylaxis subcu Lovenox Will follow closely
--- NOTE | 2023-06-13 17:13 | P.PN ---
Subjective Progress Note Date: 06/13/23 Subjective: Patient is seen and examined at bedside the same. She is doing much better as compared to yesterday. Her lungs sound clear. There is no more wheezing. She describes stable blood pressure 113/69, creatinine 0.62 HISTORY OF PRESENT ILLNESS: This is a 72-year-old female with a past medical history significant for COPD, hypertension, hyperlipidemia, diabetes, and former nicotine dependence. 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 We have been asked to see the patient in consultation for shortness of breath. Patient examined at the bedside in the emergency room. Patient presented to hospitals a chief complaint of shortness of breath. Patient is currently being treated for COPD exacerbation. She is receiving nebulizer treatments and received a dose of IV steroids in the ER. Patient is in SVT at time of examination with a heart rate in the 150-160s. * Bedside telemetry reveals SVT with a heart rate 150-160s * Chest xray chronic changes without acute pulmonary process. No significant change from prior. * Laboratory data: WBC 5.9. Hemoglobin 11.2. Platelet count 225. Sodium 136. Potassium 4.5. BUN 10. Creatinine 0.53. Lactic acid 2.2. Troponin 0.03. 0.043. 0.021. ProBNP 1940. * Current home cardiac medications include metoprolol succinate 25 mg daily * Most recent echocardiogram obtained in October 2022 with EF 40% (limited study) * Cardiac catheterization history: November 2022 with stenting to the proximal PDA REVIEW OF SYSTEMS: At the time of my exam: CONSTITUTIONAL: Denies fever or chills. HEENT: Denies blurred vision, vision changes, or eye pain. Denies hemoptysis CARDIOVASCULAR: Denies chest pain. Denies orthopnea. Denies PND. Denies palpitations RESPIRATORY: Denies shortness of breath. GASTROINTESTINAL: Denies abdominal pain. Denies nausea or vomiting. HEMATOLOGIC: Denies bleeding disorders. GENITOURINARY: Denies any blood in urine. SKIN: Denies pruitis. Denies rash. PHYSICAL EXAM: VITAL SIGNS: Reviewed. GENERAL: Well-developed in no acute distress. HEENT: Head is normocephalic. Pupils are equal, round. Sclerae anicteric. Mucous membranes of the mouth are moist. Neck supple. No JVD or thyromegaly LUNGS: Respirations even and unlabored. Lungs with decreased air exchange and wheezing throughout HEART: Tachycardic. Regular rate and rhythm. S1 and S2 heard. ABDOMEN: Soft. Nondistended. Nontender. EXTREMITIES: Normal range of motion. No clubbing or cyanosis. Peripheral pulses intact. No lower extremity edema NEUROLOGIC: Awake and alert. Oriented x 3. ASSESSMENT: Shortness of breath Acute COPD exacerbation SVT Coronary artery disease with previous PCI, most recently to proximal PDA in November 2022 Ischemic cardiomyopathy, ejection fraction 40% Hypertension Hyperlipidemia Diabetes Former nicotine dependence PLAN: Patient had short run of ventricular tachycardia of her breathing treatments. This has not reoccurred. There is no evidence of atrial fibrillation last 24- hour telemetry monitoring. Continue aspirin and Plavix and atorvastatin. Continue DAPT therapy for 1 year Continue metoprolol succinate 25 mg daily Start lisinopril 2.5 mg daily for cardio myopathy Would recommend addition of Jardiance once patient is off steroids. This can be done as an outpatient addition. Patient is cleared to discharge from [facility] standpoint follow-up in cardiology clinic outpatient. Objective - Vital Signs Vital signs: Vital Signs Temp 98.0 F 06/13/23 04:00 Pulse 75 06/13/23 16:29 Resp 16 06/13/23 16:00 BP 102/58 06/13/23 16:00 Pulse Ox 95 06/13/23 16:00 FiO2 Intake & Output 06/12/23 06/13/23 06/13/23 18:59 06:59 18:59 Intake Total 200 480 Balance 200 480 Weight 85.729 kg 82.2 kg Intake: Oral 200 480 Other: # Voids 2 - Labs CBC & Chem 7: 06/13/23 08:27 06/13/23 08:27 Labs: Abnormal Lab Results - Last 24 Hours (Table) 06/12/23 06/13/23 06/13/23 Range/Units 20:55 06:17 08:27 WBC 12.8 H (3.8-10.6) k/uL Hgb 10.2 L (11.4-16.0) gm/dL MCV 74.1 L (80.0-100.0) fL MCH 22.0 L (25.0-35.0) pg MCHC 29.7 L (31.0-37.0) g/dL RDW 16.7 H (11.5-15.5) % Neutrophils # 12.1 H (1.3-7.7) k/uL Lymphocytes # 0.6 L (1.0-4.8) k/uL Sodium (137-145) mmol/L Carbon Dioxide (22-30) mmol/L Glucose (74-99) mg/dL POC Glucose (mg/dL) 407 H 268 H (70-110) mg/dL Hemoglobin A1c (<=6.0) % ALT (4-34) U/L 06/13/23 06/13/23 06/13/23 Range/Units 08:27 08:27 11:55 WBC (3.8-10.6) k/uL Hgb (11.4-16.0) gm/dL MCV (80.0-100.0) fL MCH (25.0-35.0) pg MCHC (31.0-37.0) g/dL RDW (11.5-15.5) % Neutrophils # (1.3-7.7) k/uL Lymphocytes # (1.0-4.8) k/uL Sodium 133 L (137-145) mmol/L Carbon Dioxide 21 L (22-30) mmol/L Glucose 284 H (74-99) mg/dL POC Glucose (mg/dL) 259 H (70-110) mg/dL Hemoglobin A1c 6.9 H (<=6.0) % ALT 36 H (4-34) U/L 06/13/23 Range/Units 16:39 WBC (3.8-10.6) k/uL Hgb (11.4-16.0) gm/dL MCV (80.0-100.0) fL MCH (25.0-35.0) pg MCHC (31.0-37.0) g/dL RDW (11.5-15.5) % Neutrophils # (1.3-7.7) k/uL Lymphocytes # (1.0-4.8) k/uL Sodium (137-145) mmol/L Carbon Dioxide (22-30) mmol/L Glucose (74-99) mg/dL POC Glucose (mg/dL) 333 H (70-110) mg/dL Hemoglobin A1c (<=6.0) % ALT (4-34) U/L Microbiology - Last 24 Hours (Table) 06/11/23 17:25 Blood Culture - Preliminary Blood 06/11/23 17:40 Blood Culture - Preliminary Blood
[2023-06-13] MEDS: ATORVASTATIN 40 MG TAB PO SCH (20:35)
[2023-06-13 20:43] LABS: Glucose,Whole Blood 310 mg/dL (70-110)
[2023-06-13 23:29] VITALS: RESP 18
[2023-06-14] MEDS: methylPREDNISolone SOD SUCCI 125 MG/2 ML VIAL IV SCH ×2 (06:36→13:21)
[2023-06-14 07:43] LABS: Glucose,Whole Blood 250 mg/dL (70-110)
[2023-06-14] MEDS: CLOPIDOGREL 75 MG TAB PO SCH (08:00)
[2023-06-14] MEDS: INSULIN ASPART (NovoLOG) 100 UNIT/ML VIAL SQ SCH ×2 (08:00→13:22)
[2023-06-14] MEDS: METOPROLOL SUCCINATE (ER) 25 MG TAB.ER.24H PO SCH (08:00)
[2023-06-14] MEDS: ASPIRIN 81 MG PO SCH (08:00)
[2023-06-14] MEDS: ENOXAPARIN 40 MG/0.4 ML SYRINGE SQ SCH (08:00)
[2023-06-14 08:27] VITALS: BP 101/68; TEMP 97.9
[2023-06-14] MEDS: IPRATROPIUM-ALBUTEROL 3 ML NEB INHALATION SCH ×2 (08:40→10:49)
[2023-06-14] MEDS: SYMBICORT 160-4.5 MCG INHALER INHALATION SCH (08:40)
[2023-06-14 08:45] VITALS: PULSE 60
--- NOTE | 2023-06-14 10:55 | P.DS ---
Providers Date of admission: 06/11/23 17:28 Expected date of discharge: 06/14/23 Attending physician: Surinder Rodríguez Consults: 06/11/23 17:28 Consult Physician Routine Consulting Provider: Kolton Caraballo Consult Reason/Comments: dyspnea Do you want consulting provider notified?: Yes Consult Physician Routine Consulting Provider: Yosi Washington Consult Reason/Comments: dyspnea Do you want consulting provider notified?: Yes Primary care physician: Surinder Rodríguez [facility] Course: Discharge diagnosis Acute exacerbation of chronic obstructive pulmonary disease Acute purulent bronchitis Episodes of chest pain Episode of supraventricular tachycardia Mild elevation in troponin level Underlying history of coronary artery disease with previous history of angioplasty and stent placement Underlying history of ischemic cardiomyopathy with decreased ejection fraction to 40% Underlying history of hypertension Underlying history of hyperlipidemia Underlying history of diabetes mellitus Hospital course Mari Moore, is a 72-year-old female who presented to [facility] emergency room with a chief complaint of shortness of breath and chest pain when she takes a deep breath. She was evaluated in the emergency room vital examination on presentation revealed a temperature of 98.9 pulse 108 respiration 24 blood pressure 144/78 pulse ox 97% on room air Laboratory data reveals a white blood count of 5.9 hemoglobin 11.2 platelet count 255 sodium 136 potassium 4.5 chloride 105 CO2 19 BUN 10 creatinine 0.52 lactic acid on presentation was elevated at 2.2 troponin level 0.038 d-dimer 0.77 COVID-19 PCR was negative. Testing in the emergency room revealed chest x-ray done in the emergency room revealed chronic changes without acute pulmonary process, CT angiogram of the chest revealed no evidence of pulmonary embolism no acute process. EKG revealed sinus rhythm with short [place] interval with frequent supraventricular premature complexes. Patient was admitted to medical floor for further evaluation and treatment On 06/13/2023 patient was seen and examined on the medical floor she is alert and oriented 3 in no apparent distress she reports some improvement in her shortness of breath otherwise she denies any complaints at this time there is no fever or chills no headache or dizziness no chest pain she has occasional cough no nausea or vomiting no abdominal pain no diarrhea and no urinary symptoms On 06/14/2023 patient is alert and oriented 3. Patient has completed a course of IV antibiotics. Patient will be DC'd on prednisone taper. Patient reports significant improvement. Patient denies chest pain or shortness breath. Patient denies nausea vomiting or diarrhea. Patient was started and should be maintained on dual antiplatelet therapy per cardiology. Patient educated on the importance of medical compliance. Patient to follow-up P6 pain consulting providers for further management Patient Condition at Discharge: Stable Plan - Discharge Summary Discharge Rx Participant: Yes New Discharge Prescriptions: New Aspirin 81 mg PO DAILY 30 Days #30 tab predniSONE 10 mg PO DIRECTED 12 Days #30 tab Atorvastatin [Lipitor] 40 mg PO HS 30 Days #30 tab Clopidogrel [Plavix] 75 mg PO DAILY 30 Days #30 tab lisinopriL [Zestril] 2.5 mg PO DAILY 30 Days #30 tab Continue traMADol HCl [Ultram] 50 mg PO TID PRN PRN Reason: Pain Metoprolol Succinate (ER) [Toprol XL] 25 mg PO DAILY tab traZODone HCL [Desyrel] 50 mg PO HS PRN PRN Reason: Insomnia Discontinued Ibuprofen [Motrin] 800 mg PO TID PRN PRN Reason: Pain Discharge Medication List traMADol HCl [Ultram] 50 mg PO TID PRN 11/04/15 [History] Metoprolol Succinate (ER) [Toprol XL] 25 mg PO DAILY tab 12/14/22 [Rx] traZODone HCL [Desyrel] 50 mg PO HS PRN 06/11/23 [History] Aspirin 81 mg PO DAILY 30 Days #30 tab 06/14/23 [Rx] Atorvastatin [Lipitor] 40 mg PO HS 30 Days #30 tab 06/14/23 [Rx] Clopidogrel [Plavix] 75 mg PO DAILY 30 Days #30 tab 06/14/23 [Rx] lisinopriL [Zestril] 2.5 mg PO DAILY 30 Days #30 tab 06/14/23 [Rx] predniSONE 10 mg PO DIRECTED 12 Days #30 tab 06/14/23 [Rx] Follow up Appointment(s)/Referral(s): Surinder Rodríguez MD [Primary Care Provider] - 1-2 days Johnathan More MD [Medical Doctor] - 1 Week Silvia Murry MD [STAFF PHYSICIAN] - 1 Week Discharge Disposition: HOME SELF-CARE
[2023-06-14 12:27] LABS: Glucose,Whole Blood 344 mg/dL (70-110)
== END 2023-06-14 14:29 | disposition home or self-care (01) | DRG 202 ==
LOC: EC 13:09 → 3SCARD 17:28 → 5NMEDONC 06-13 23:44
PROVIDERS: ADMIT Internal Medicine; ATTEND Internal Medicine
DX: J20.9 Acute bronchitis, unspecified (principal); I47.1 Supraventricular tachycardia; J44.1 Chronic obstructive pulmonary disease with (acute) exacerbation; I47.20 Ventricular tachycardia, unspecified; J44.0 Chronic obstructive pulmonary disease with (acute) lower respiratory infection; I11.0 Hypertensive heart disease with heart failure; M32.9 Systemic lupus erythematosus, unspecified; E11.9 Type 2 diabetes mellitus without complications; F19.10 Other psychoactive substance abuse, uncomplicated; E04.1 Nontoxic single thyroid nodule; M79.7 Fibromyalgia; M77.9 Enthesopathy, unspecified; G47.30 Sleep apnea, unspecified; I44.7 Left bundle-branch block, unspecified; I49.1 Atrial premature depolarization; M47.9 Spondylosis, unspecified; I25.10 Atherosclerotic heart disease of native coronary artery without angina pectoris; I25.5 Ischemic cardiomyopathy; E78.5 Hyperlipidemia, unspecified; Z20.822 Contact with and (suspected) exposure to COVID-19; Z79.4 Long term (current) use of insulin; Z79.82 Long term (current) use of aspirin; Z95.5 Presence of coronary angioplasty implant and graft; Z79.899 Other long term (current) drug therapy; Z79.02 Long term (current) use of antithrombotics/antiplatelets; Z88.1 Allergy status to other antibiotic agents; Z88.2 Allergy status to sulfonamides; Z95.1 Presence of aortocoronary bypass graft; Z87.891 Personal history of nicotine dependence; Z86.61 Personal history of infections of the central nervous system; Z83.6 Family history of other diseases of the respiratory system; Z81.2 Family history of tobacco abuse and dependence
CPT/HCPCS: 36415; 71046; 71275; 80053; 83036; 83605; 83880; 84145; 84484; 85025; 85379; 85610; 85730; 87040; 87635; 93005; 94640; 94760; 96365; 96366; 96367; 96372; 96375; 96376; 99285

== ENCOUNTER 2023-06-28 02:06 | Inpatient (IN) | payer MEDICARE, OTHER ==
[2023-06-28] MEDS ORDERED: SODIUM CHLORIDE 0.9% 1,000 ML IV STA (02:29)
[2023-06-28] MEDS ORDERED: IPRATROPIUM-ALBUTEROL 3 ML NEB INHALATION STA ×2 (02:29→04:16)
--- NOTE | 2023-06-28 02:30 | ED ---
SOB HPI - General Chief Complaint: Shortness of Breath Stated Complaint: Chest pain, Difficulty breathing, coughing Time Seen by Provider: 06/28/23 02:28 Source: patient, RN notes reviewed, old records reviewed Mode of arrival: wheelchair Limitations: no limitations - History of Present Illness Initial Comments: This is a 70-year-old female to the emergency department for evaluation. Patient presents today for evaluation regards to shortness of breath severe with history of asthma. This is asthma exacerbation which is significantly getting worse. No fevers no chest pain. Patient does admit elevated heart rate here in the ER MD Complaint: shortness of breath, cough, "asthma attack", anxiety -: hour(s) Radiation: back Severity: moderate Severity scale (1-10): 6 Quality: sharp Consistency: constant Improves With: nothing Known History Of: asthma Context: recent URI, anxiety, recent illness Associated Symptoms: cough, sputum production Treatments Prior to Arrival: none - Related Data Home Medications Medication Instructions Recorded Confirmed traMADol HCl [Ultram] 50 mg PO TID PRN 11/04/15 06/28/23 traZODone HCL [Desyrel] 50 mg PO HS PRN 06/11/23 06/28/23 Previous Rx's Medication Instructions Recorded Albuterol Nebulized [Ventolin 2.5 mg INHALATION RT-Q4H ml 07/01/23 Nebulized] Aspirin 81 mg PO DAILY tab 07/01/23 Atorvastatin [Lipitor] 40 mg PO DAILY tab 07/01/23 Budesonide-Formot 160-4.5 Mcg 2 puff INHALATION RT-BID each 07/01/23 [Symbicort 160-4.5 Mcg Inhaler] Clopidogrel [Plavix] 75 mg PO DAILY tab 07/01/23 Insulin Glargine/Lixisenatide 30 units SQ DAILY 30 Days #1 pen 07/01/23 [Soliqua 100 Unit-33 Mcg/ml Pen] Metoprolol Succinate (ER) [Toprol 25 mg PO DAILY tab 07/01/23 XL] lisinopriL [Zestril] 2.5 mg PO DAILY tab 07/01/23 predniSONE [Deltasone] 40 mg PO DAILY tab 07/01/23 Allergies Allergy/AdvReac Type Severity Reaction Status Date / Time cephalexin Allergy Anaphylaxis Verified 06/28/23 06:46 cephalexin monohydrate Allergy Anaphylaxis Verified 06/28/23 06:46 [From Keflex] Sulfa (Sulfonamide Allergy Rash/Hives Verified 06/28/23 06:46 Antibiotics) Review of Systems ROS Statement: Those systems with pertinent positive or pertinent negative responses have been documented in the HPI. ROS Other: All systems not noted in ROS Statement are negative. 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 Poly substance abuse 07/19/21 admitted for Acute delirium History of Any Multi-Drug Resistant Organisms: None Reported Past Surgical History: Cholecystectomy, Coronary Bypass/CABG, Hernia Repair, Orthopedic Surgery, Tonsillectomy, Tubal Ligation Additional Past Surgical History / Comment(s): LEFT KNEE ARTHROSCOPY, BMT AND MYRINGOPLASTY, umbilical hernia repair, CABG 2020 Past Anesthesia/Blood Transfusion Reactions: No Reported Reaction Additional Past Anesthesia/Blood Transfusion Reaction / Comment(s): STATES AFTER LAST EAR SX (11/2013) HAD SORE MUSCLES AND WAS WEAK FOR 3-4 DAYS Past Psychological History: Unable to Obtain Smoking Status: Former smoker Past Alcohol Use History: None Reported Past Drug Use History: None Reported, Marijuana - Past Family History Sister(s) Family Medical History: Cancer Brother(s) Family Medical History: Cancer Additional Family Medical History / Comment(s): brother had heart valve replacement Mother Family Medical History: Chest Pain / Angina, Diabetes Mellitus, Hypertension Father History Unknown: Yes Additional Family Medical History / Comment(s): , "had bad lungs" per patient, was a smoker General Exam General appearance: alert, in no apparent distress, anxious Head exam: Present: atraumatic, normocephalic, normal inspection Eye exam: Present: normal appearance, PERRL, EOMI. Absent: scleral icterus, conjunctival injection, periorbital swelling ENT exam: Present: normal exam, mucous membranes moist Neck exam: Present: normal inspection. Absent: tenderness, meningismus, lymphadenopathy Respiratory exam: Present: respiratory distress, wheezes, accessory muscle use, decreased breath sounds, prolonged expiratory. Absent: rales, rhonchi, stridor Cardiovascular Exam: Present: normal rhythm, tachycardia, normal heart sounds. Absent: systolic murmur, diastolic murmur, rubs, gallop, clicks GI/Abdominal exam: Present: soft, normal bowel sounds. Absent: distended, tenderness, guarding, rebound, rigid Extremities exam: Present: normal inspection, full ROM, normal capillary refill. Absent: tenderness, pedal edema, joint swelling, calf tenderness Back exam: Present: normal inspection Neurological exam: Present: alert, oriented X3, CN II-XII intact Psychiatric exam: Present: normal affect, normal mood Skin exam: Present: warm, dry, intact, normal color. Absent: rash Course Vital Signs 06/28/23 06/28/23 06/28/23 02:12 02:30 02:39 Temperature 98 F Pulse Rate 99 96 Pulse Rate [ Pulse Oximetery ] Respiratory 18 30 H Rate Blood Pressure 113/80 Blood Pressure [Right Arm] O2 Sat by Pulse 99 Oximetry 06/28/23 06/28/23 06/28/23 02:58 04:28 04:38 Temperature Pulse Rate 104 H 102 H 97 Pulse Rate [ Pulse Oximetery ] Respiratory 24 Rate Blood Pressure 114/88 Blood Pressure [Right Arm] O2 Sat by Pulse 98 Oximetry 06/28/23 06/28/23 06/28/23 04:55 06:00 08:07 Temperature 98.4 F Pulse Rate 105 H 104 H 113 H Pulse Rate [ Pulse Oximetery ] Respiratory 22 18 Rate Blood Pressure 118/87 110/78 Blood Pressure [Right Arm] O2 Sat by Pulse Oximetry 06/28/23 06/28/23 06/28/23 08:32 08:45 11:44 Temperature Pulse Rate 85 112 H 117 H Pulse Rate [ Pulse Oximetery ] Respiratory 20 Rate Blood Pressure 132/105 Blood Pressure [Right Arm] O2 Sat by Pulse 98 99 Oximetry 06/28/23 06/28/23 06/28/23 11:47 12:03 14:25 Temperature Pulse Rate 116 H 117 H 107 H Pulse Rate [ Pulse Oximetery ] Respiratory 18 Rate Blood Pressure 113/87 Blood Pressure [Right Arm] O2 Sat by Pulse 98 Oximetry 06/28/23 06/28/23 06/28/23 15:20 15:30 19:05 Temperature Pulse Rate 112 H 115 H 101 H Pulse Rate [ Pulse Oximetery ] Respiratory 20 Rate Blood Pressure 81/68 Blood Pressure [Right Arm] O2 Sat by Pulse 97 Oximetry 06/28/23 19:55 Temperature 97.9 F Pulse Rate Pulse Rate [ 101 H Pulse Oximetery ] Respiratory 20 Rate Blood Pressure Blood Pressure 107/71 [Right Arm] O2 Sat by Pulse 99 Oximetry - Reevaluation(s) Reevaluation #1: 06/28/23 03:14 Medical records reviewed Reevaluation #2: 06/28/23 05:07 Patient has no improvement here in the ER Reevaluation #3: 06/28/23 05:07 Patient informed results questions answered Reevaluation #4: 06/28/23 03:14 Was pt. sent in by a medical professional or institution (, PA, [employer], urgent care, hospital, or shelter...) When possible be specific @ -no Did you speak to anyone other than the patient for history (EMS, parent, family, police, friend...)? What history was obtained from this source @ -no Did you review nursing and triage notes (agree or disagree)? Why? @ -agree Are old charts reviewed (outside hosp., previous admission, EMS record, old EKG, old radiological studies, urgent care reports/EKG's, shelter records)? Report findings @ -yes Differential Diagnosis (chest pain, altered mental status, abdominal pain women, abdominal pain men, vaginal bleeding, weakness, fever, dyspnea, syncope, headache, dizziness, GI bleed, back pain, seizure, CVA, palpatations, mental health, musculoskeletal)? @ -prior EKG interpreted by me (3pts min.). @ -yes X-rays interpreted by me (1pt min.). @ -yes CT interpreted by me (1pt min.). @ -no U/S interpreted by me (1pt. min.). @ -no What testing was considered but not performed or refused? (CT, X-rays, U/S, labs)? Why? @ -none What meds were considered but not given or refused? Why? @ -none Did you discuss the management of the patient with other professionals (florencio enrique i.e. , PA, [employer], lab, RT, psych nurse, social worker delinquency prevention, geology professor, teacher, disability insurance hearing officer, disease case manager)? Give summary @ -no Was smoking cessation discussed for >3mins.? @ -no Was critical care preformed (if so, how long)? @ -no Were there social determinants of health that impacted care today? How? (Homelessness, low income, unemployed, alcoholism, drug addiction, transportation, low edu. Level, literacy, decrease access to med. care, nursing home, rehab)? @ -none Was there de-escalation of care discussed even if they declined (Discuss DNR or withdrawal of care, Hospice)? DNR status @ -no What co-morbidities impacted this encounter? (DM, HTN, Smoking, COPD, CAD, Cancer, CVA, ARF, Chemo, Hep., AIDS, mental health diagnosis, sleep apnea, morbid obesity)? @ -none Was patient admitted / discharged? Hospital course, mention meds given and route, prescriptions, significant lab abnormalities, going to OR and other pertinent info. @ - 72 female presents emergency today for evaluation with shortness of breath secondary severe COPD mildly improved with breathing treatments but significantly persistent here in the ER, patient is in still significant distress or shortness of breath and will admit for further supportive care Admitted Undiagnosed new problem with uncertain prognosis? @ -no Drug Therapy requiring intensive monitoring for toxicity (Heparin, Nitro, Insulin, Cardizem)? @ -no Were any procedures done? @ -no Diagnosis/symptom? @ -Severe COPD Acute, or Chronic, or Acute on Chronic? @ -Acute Uncomplicated (without systemic symptoms) or Complicated (systemic symptoms)? @ -Complicated Side effects of treatment? @ -no Exacerbation, Progression, or Severe Exacerbation? @ -exacerbation Poses a threat to life or bodily function? How? (Chest pain, [place], [place], pneumonia, PE, COPD, DKA, ARF, appy, cholecystitis, CVA, Diverticulitis, Homicidal, Suicidal, threat to staff... and all critical care pts) @ -yes with rest for distress Reevaluation #5: 06/28/23 03:14 Differential Dyspnea: Coronary syndrome, arrhythmia, tamponade, asthma, COPD, pulmonary embolism, pneumonia, pneumothorax, pulmonary effusion, anaphylaxis, diabetic ketoacidosis, flailed chest, pulmonary contusion, diaphragmatic rupture, anemia, neuromuscular, this is not meant to be an all-inclusive list. - Consultations Consultation #1: spoke with Dr. Rodríguez who agrees to admit the patient Medical Decision Making - Medical Decision Making 72 female presents emergency today for evaluation with shortness of breath secondary severe COPD mildly improved with breathing treatments but significantly persistent here in the ER, patient is in still significant distress or shortness of breath and will admit for further supportive care - Lab Data Result diagrams: 06/30/23 06:03 06/30/23 06:03 Lab Results 06/28/23 06/28/23 06/28/23 Range/Units 02:42 02:42 02:42 WBC 8.2 (3.8-10.6) k/uL RBC 5.20 (3.80-5.40) m/uL Hgb 11.7 (11.4-16.0) gm/dL Hct 37.5 (34.0-46.0) % MCV 72.2 L (80.0-100.0) fL MCH 22.5 L (25.0-35.0) pg MCHC 31.2 (31.0-37.0) g/dL RDW 17.4 H (11.5-15.5) % Plt Count 248 (150-450) k/uL MPV 8.5 Neutrophils % 70 % Lymphocytes % 21 % Monocytes % 4 % Eosinophils % 4 % Basophils % 0 % Neutrophils # 5.8 (1.3-7.7) k/uL Lymphocytes # 1.7 (1.0-4.8) k/uL Monocytes # 0.3 (0-1.0) k/uL Eosinophils # 0.3 (0-0.7) k/uL Basophils # 0.0 (0-0.2) k/uL Hypochromasia Moderate Anisocytosis Slight Microcytosis Moderate PT 9.8 (9.0-12.0) sec INR 0.9 (<1.2) APTT 22.5 (22.0-30.0) sec Sodium 137 (137-145) mmol/L Potassium 3.8 (3.5-5.1) mmol/L Chloride 104 (98-107) mmol/L Carbon Dioxide 25 (22-30) mmol/L Anion Gap 8 mmol/L BUN 13 (7-17) mg/dL Creatinine 0.63 (0.52-1.04) mg/dL Est GFR (CKD-EPI)AfAm >90 (>60 ml/min/1.73 sqM) Est GFR (CKD-EPI)NonAf 90 (>60 ml/min/1.73 sqM) Glucose 209 H (74-99) mg/dL Plasma Lactic Acid Angel (0.7-2.0) mmol/L Calcium 8.9 (8.4-10.2) mg/dL Magnesium 1.7 (1.6-2.3) mg/dL Total Bilirubin 0.4 (0.2-1.3) mg/dL AST 31 (14-36) U/L ALT 45 H (4-34) U/L Alkaline Phosphatase 102 (38-126) U/L Troponin I (0.000-0.034) ng/mL NT-Pro-B Natriuret Pep 1410 pg/mL Total Protein 6.6 (6.3-8.2) g/dL Albumin 3.7 (3.5-5.0) g/dL 06/28/23 06/28/23 Range/Units 02:42 02:42 WBC (3.8-10.6) k/uL RBC (3.80-5.40) m/uL Hgb (11.4-16.0) gm/dL Hct (34.0-46.0) % MCV (80.0-100.0) fL MCH (25.0-35.0) pg MCHC (31.0-37.0) g/dL RDW (11.5-15.5) % Plt Count (150-450) k/uL MPV Neutrophils % % Lymphocytes % % Monocytes % % Eosinophils % % Basophils % % Neutrophils # (1.3-7.7) k/uL Lymphocytes # (1.0-4.8) k/uL Monocytes # (0-1.0) k/uL Eosinophils # (0-0.7) k/uL Basophils # (0-0.2) k/uL Hypochromasia Anisocytosis Microcytosis PT (9.0-12.0) sec INR (<1.2) APTT (22.0-30.0) sec Sodium (137-145) mmol/L Potassium (3.5-5.1) mmol/L Chloride (98-107) mmol/L Carbon Dioxide (22-30) mmol/L Anion Gap mmol/L BUN (7-17) mg/dL Creatinine (0.52-1.04) mg/dL Est GFR (CKD-EPI)AfAm (>60 ml/min/1.73 sqM) Est GFR (CKD-EPI)NonAf (>60 ml/min/1.73 sqM) Glucose (74-99) mg/dL Plasma Lactic Acid Angel 1.6 (0.7-2.0) mmol/L Calcium (8.4-10.2) mg/dL Magnesium (1.6-2.3) mg/dL Total Bilirubin (0.2-1.3) mg/dL AST (14-36) U/L ALT (4-34) U/L Alkaline Phosphatase (38-126) U/L Troponin I 0.021 (0.000-0.034) ng/mL NT-Pro-B Natriuret Pep pg/mL Total Protein (6.3-8.2) g/dL Albumin (3.5-5.0) g/dL - EKG Data -: EKG Interpreted by Me (EKG is sinus tachycardia 109 RI 135 QRS 141 QTC 436) - Radiology Data Radiology results: report reviewed (Chest x-rays negative for acute disease), image reviewed Disposition Clinical Impression: Acute respiratory distress syndrome in adult, Respiratory insufficiency, Chest pain, Dyspnea, COPD with acute exacerbation Disposition: ADMITTED IP TO THIS HOSP Condition: Fair Is patient prescribed a controlled substance at d/c from ED?: No Time of Disposition: 05:00
[2023-06-28 03:11] LABS: Anisocytosis Slight; Basophils % (A) 0 %; Eosinophils # (A) 0.3 k/uL (0-0.7); Eosinophils % (A) 4 %; HCT 37.5 % (34.0-46.0); HGB 11.7 gm/dL (11.4-16.0); Hypochromasia Moderate; Lymphocytes # (A) 1.7 k/uL (1.0-4.8); Lymphocytes % (A) 21 %; MCH 22.5 pg (25.0-35.0); MCHC 31.2 g/dL (31.0-37.0); MCV 72.2 fL (80.0-100.0); Mean Platelet Volume 8.5; Microcytosis Moderate; Monocytes # (A) 0.3 k/uL (0-1.0); Monocytes % (A) 4 %; Neutrophils # (A) 5.8 k/uL (1.3-7.7); Neutrophils % (A) 70 %; Platelet Count 248 k/uL (150-450); RDW 17.4 % (11.5-15.5); WBC 8.2 k/uL (3.8-10.6)
[2023-06-28 03:18] LABS: INR 0.9 (<1.2); Partial Thromboplastin Time 22.5 sec (22.0-30.0); Prothrombin Time 9.8 sec (9.0-12.0)
[2023-06-28 03:33] LABS: ALT 45 U/L (4-34); AST 31 U/L (14-36); African American GFR (CKD) >90 (>60 ml/min/1.73 sqM); Albumin 3.7 g/dL (3.5-5.0); Alkaline Phosphatase 102 U/L (38-126); Anion Gap 8 mmol/L; Blood Urea Nitrogen 13 mg/dL (7-17); Calcium 8.9 mg/dL (8.4-10.2); Carbon Dioxide 25 mmol/L (22-30); Chloride 104 mmol/L (98-107); Glucose 209 mg/dL (74-99); Magnesium 1.7 mg/dL (1.6-2.3); Non-African American GFR(CKD) 90 (>60 ml/min/1.73 sqM); Potassium 3.8 mmol/L (3.5-5.1); Sodium 137 mmol/L (137-145); Total Bilirubin 0.4 mg/dL (0.2-1.3); Total Protein 6.6 g/dL (6.3-8.2)
[2023-06-28 03:41] LABS: NT-Pro-B-Type Natriuretic Pept 1410 pg/mL
[2023-06-28] MEDS ORDERED: methylPREDNISolone SOD SUCCI 125 MG/2 ML VIAL IV STA (04:16)
[2023-06-28] MEDS ORDERED: NALOXONE 0.4 MG/ML 1 ML VIAL IVP PRN (05:03)
[2023-06-28] MEDS ORDERED: ONDANSETRON 4 MG/2 ML VIAL IVP PRN (05:04)
[2023-06-28] MEDS ORDERED: NALOXONE 0.4 MG/ML 1 ML VIAL IV PRN (05:04)
[2023-06-28] MEDS ORDERED: ACETAMINOPHEN TAB 325 MG TAB PO PRN (05:04)
[2023-06-28] MEDS ORDERED: HYDROmorphone 0.5 MG/0.5 ML SYRINGE IVP STA (05:49)
[2023-06-28] MEDS: MORPHINE SULFATE 4 MG/ML SYRINGE IV PRN ×2 (05:59→15:09)
--- NOTE | 2023-06-28 06:37 | XR ---
EXAM: XR Chest, 2 Views CLINICAL HISTORY: ITS.REASON XR Reason: shortness of breathe TECHNIQUE: Frontal and lateral views of the chest. COMPARISON: XR Chest dated 06/11/23 FINDINGS: Lungs: Unremarkable. No consolidation. Pleural space: Unremarkable. No pneumothorax. Heart: Stable mild cardiomegaly. Mediastinum: Unremarkable. Bones/joints: Median sternotomy wires. Left atrial appendage clip. IMPRESSION: No significant interval change. No evidence of acute cardiopulmonary disease.
--- NOTE | 2023-06-28 06:48 | P.CNPUL ---
History of Present Illness Consult date: 06/28/23 Requesting physician: Rad Gilmore Reason for consult: COPD Chief complaint: Shortness of breath and nonproductive cough History of present illness: I am seeing this patient in new consultation today 06/28/2023 for an acute COPD exacerbation. Patient is a 72-year-old white female past medical history significant for COPD/asthma, coronary artery disease with previous coronary artery bypass grafting and subsequent stenting to the PDA, congestive heart failure, diabetes mellitus, hypertension, hyperlipidemia, fibromyalgia, is a current daily marijuana smoker, and is an ex tobacco smoker of over 30 years ago. Her primary care provider is Dr. Rodríguez. She does not routinely follow w ith a home weatherizing worker. She was recently discharged on 06/14/2023 for similar symptoms. Patient presented to the emergency room earlier this morning complaining of progressively worsening shortness of breath over the last 24 hours. This was associated with a congested nonproductive cough. She denies any fevers, chills, myalgias. Denies sick contacts. Denies any chest pain, heart palpitations, syncope. Does admit some lower extremity swelling. Patient is currently sitting at the edge of the bed, on room air, in no acute distress. Chest x-ray on arrival did not show any infiltrates or evidence of pneumonia CBC and BMP on arrival were unremarkable. Normal saline is infusing at 130 ML's per hour. Lactic was 1.6. Troponins 0.021. NT proBNP 1400. Patient has been started on bronchodilators, Symbicort inhaler, and IV site Medrol. She is hemodynamically stable. Review of Systems REVIEW OF SYSTEMS: CONSTITUTIONAL: Denies any recent significant weight loss or weight gain. EYES: Denies change in vision. EARS, NOSE, MOUTH, THROAT: Denies headaches, denies sore throat. CARDIOVASCULAR: Denies chest pain, palpitations or syncopal episodes. RESPIRATORY: See HPI GASTROINTESTINAL: Denies change in appetite, abdominal pain, nausea and vomiti ng, or diarrhea GENITOURINARY: Denies hematuria, denies infections. MUSKULOSKELETAL: Denies pain, denies swelling. INTEGUMENTARY: Denies rash, denies eczema. NEUROLOGICAL: Denies recent memory loss, no recent seizure activity. PSYCHIATRIC: Denies anxiety, denies depression. HEMATOLOGIC/LYMPHATIC: Denies anemia, denies enlarged lymph node Past Medical History Past Medical History: Asthma, Coronary Artery Disease (CAD), Heart Failure, COPD, Diabetes Mellitus, Fibromyalgia, Hyperlipidemia, Hypertension, Musculoskeletal Disorder, Osteoarthritis (OA), Sleep Apnea/CPAP/BIPAP Additional Past Medical History / Comment(s): TESTED POSITIVE FOR LUPUS (STATES NO SYMPTOMS), DOES NOT USE CPAP, SEASONAL ALLERGIES, STATES 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 Poly substance abuse 07/19/21 admitted for Acute delirium History of Any Multi-Drug Resistant Organisms: None Reported Past Surgical History: Cholecystectomy, Coronary Bypass/CABG, Hernia Repair, Orthopedic Surgery, Tonsillectomy, Tubal Ligation Additional Past Surgical History / Comment(s): LEFT KNEE ARTHROSCOPY, BMT AND MYRINGOPLASTY, umbilical hernia repair, CABG 2020 Past Anesthesia/Blood Transfusion Reactions: No Reported Reaction Additional Past Anesthesia/Blood Transfusion Reaction / Comment(s): STATES AFTER LAST EAR SX (11/2013) HAD SORE MUSCLES AND WAS WEAK FOR 3-4 DAYS Past Psychological History: Unable to Obtain Smoking Status: Former smoker Past Alcohol Use History: None Reported Past Drug Use History: None Reported, Marijuana - Past Family History Sister(s) Family Medical History: Cancer Brother(s) Family Medical History: Cancer Additional Family Medical History / Comment(s): brother had heart valve replacement Mother Family Medical History: Chest Pain / Angina, Diabetes Mellitus, Hypertension Father History Unknown: Yes Additional Family Medical History / Comment(s): , "had bad lungs" per patient, was a smoker Medications and Allergies Home Medications Medication Instructions Recorded Confirmed Type traMADol HCl [Ultram] 50 mg PO TID PRN 11/04/15 06/11/23 History Metoprolol Succinate (ER) [Toprol 25 mg PO DAILY tab 12/14/22 06/11/23 Rx XL] traZODone HCL [Desyrel] 50 mg PO HS PRN 06/11/23 06/11/23 History Aspirin 81 mg PO DAILY 30 Days #30 tab 06/14/23 Rx Atorvastatin [Lipitor] 40 mg PO HS 30 Days #30 tab 06/14/23 Rx Clopidogrel [Plavix] 75 mg PO DAILY 30 Days #30 tab 06/14/23 Rx lisinopriL [Zestril] 2.5 mg PO DAILY 30 Days #30 tab 06/14/23 Rx predniSONE 10 mg PO DIRECTED 12 Days #30 06/14/23 Rx tab Allergies Allergy/AdvReac Type Severity Reaction Status Date / Time cephalexin Allergy Anaphylaxis Verified 06/28/23 02:14 cephalexin monohydrate Allergy Anaphylaxis Verified 06/28/23 02:14 [From Keflex] Sulfa (Sulfonamide Allergy Rash/Hives Verified 06/28/23 02:14 Antibiotics) Physical Exam Vitals: Vital Signs Temp Pulse Resp BP Pulse Ox 06/28/23 06:00 104 H 22 118/87 06/28/23 04:55 105 H 06/28/23 04:38 97 06/28/23 04:28 102 H 24 114/88 98 06/28/23 02:58 104 H 06/28/23 02:39 96 06/28/23 02:30 30 H 06/28/23 02:12 98 F 99 18 113/80 99 Intake and Output 06/27/23 06/27/23 06/28/23 14:59 22:59 06:59 Other: Weight 88.451 kg GENERAL EXAM: Alert, 72-year-old white female appearing stated age, comfortable in no apparent distress. HEAD: Normocephalic and atraumatic EYES: Normal reaction of pupils, equal size. NOSE: Clear with pink turbinates. THROAT: No erythema or exudates. NECK: No masses, no JVD. CHEST: No chest wall deformity. LUNGS: Equal air entry with expiratory wheezes and scattered rhonchi heard throughout. On room air. No conversational dyspnea or accessory muscle use.. CVS: S1 and S2 normal with no audible murmur, regular rhythm. No extra heart sounds ABDOMEN: No hepatosplenomegaly, active bowel sounds, no guarding or rigidity. SPINE: No scoliosis or deformity SKIN: No rashes CENTRAL NERVOUS SYSTEM: No focal deficits, tone is normal in all 4 extremities. EXTREMITIES: There is mild nonpitting bilateral lower extremity edema. No clubbing, or cyanosis. Peripheral pulses are intact Results - Laboratory Findings CBC and BMP: 06/28/23 02:42 06/28/23 02:42 PT/INR, D-dimer PT 9.8 sec (9.0-12.0) 06/28/23 02:42 INR 0.9 (<1.2) 06/28/23 02:42 Abnormal lab findings: Abnormal Labs 06/28/23 06/28/23 02:42 02:42 MCV 72.2 L MCH 22.5 L RDW 17.4 H Glucose 209 H ALT 45 H - Diagnostic Findings Chest x-ray: image reviewed Assessment and Plan Assessment: Acute COPD exacerbation, chest x-ray on arrival showed no acute infiltrates or evidence of pneumonia. Dyspnea, secondary to above Coronary artery disease, with previous coronary artery bypass grafting, and subsequent stenting of the PDA 12/12/2022 Ischemic cardiomyopathy, with an improved ejection fraction of 40% Essential hypertension Hyperlipidemia Thyroid nodule, that needs to be followed up outpatient Fibromyalgia Current marijuana smoker. Ex-tobacco smoker Plan: Patient's medications, labs, chest x-ray reviewed On room air Continue combination of bronchodilators, Symbicort inhaler, and IV Solu-Medrol Check COVID-19 Smoking cessation counseling performed We will continue to follow and make recommendations I have personally seen and examined the patient, performed the documentation and the assessment and plan as written. Number of minutes spent on the visit:20 Time with Patient: Greater than 30
[2023-06-28] MEDS ORDERED: BENZOCAINE/MENTHOL LOZENG 1 EACH LOZENGE MUCOUS MEM PRN (06:49)
[2023-06-28] MEDS: ALBUTEROL NEBULIZED 2.5 MG/3 ML INHALATION SCH ×4 (08:31→20:18)
[2023-06-28] MEDS: SYMBICORT 160-4.5 MCG INHALER INHALATION SCH ×2 (08:32→20:18)
[2023-06-28] MEDS: SODIUM CHLORIDE 0.9% 1,000 ML IV SCH ×2 (10:54→19:08)
[2023-06-28] MEDS: methylPREDNISolone SOD SUCCI 125 MG/2 ML VIAL IV SCH ×3 (11:02→20:39)
--- NOTE | 2023-06-28 16:07 | P.HPIM ---
History of Present Illness H&P Date: 06/28/23 Mari Moore, is a 77-year-old female patient presented to the hospital with concerns of increased shortness of breath. Patient has long-standing history of COPD and asthma. Additional medical history includes coronary artery disease which she underwent coronary artery bypass graft surgery, COPD, diabetes mellitus, fibromyalgia, hyperlipidemia, hypertension, osteoarthritis, sleep apnea and ex-smoker. Patient also admits to marijuana use. Chest x-ray completed in ER showing no significant interval change no evidence of acute cardiopulmonary disease. Influenza RSV and COVID-19 negative troponin negative. WBC 8.2 creatinine 0.63 and bun 13. At this time patient was started on IV Oliva u-Medrol and DuoNeb breathing treatments. Pulmonary service is consulted. Current vital signs temp 98.4, heart rate 88, respiratory rate 18, blood pressure 110/70 with a pulse ox 99 on 2 L. 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 Poly substance abuse admitted for Acute delirium History of Any Multi-Drug Resistant Organisms: None Reported Past Surgical History: Cholecystectomy, Coronary Bypass/CABG, Hernia Repair, Orthopedic Surgery, Tonsillectomy, Tubal Ligation Additional Past Surgical History / Comment(s): LEFT KNEE ARTHROSCOPY, BMT AND MYRINGOPLASTY, umbilical hernia repair, CABG 2020 Past Anesthesia/Blood Transfusion Reactions: No Reported Reaction Additional Past Anesthesia/Blood Transfusion Reaction / Comment(s): STATES AFTER LAST EAR SX (11/2013) HAD SORE MUSCLES AND WAS WEAK FOR 3-4 DAYS Past Psychological History: Unable to Obtain Smoking Status: Former smoker Past Alcohol Use History: None Reported Past Drug Use History: None Reported, Marijuana - Past Family History Sister(s) Family Medical History: Cancer Brother(s) Family Medical History: Cancer Additional Family Medical History / Comment(s): brother had heart valve replacement Mother Family Medical History: Chest Pain / Angina, Diabetes Mellitus, Hypertension Father History Unknown: Yes Additional Family Medical History / Comment(s): , "had bad lungs" per patient, was a smoker Medications and Allergies Home Medications Medication Instructions Recorded Confirmed Type traMADol HCl [Ultram] 50 mg PO TID PRN 11/04/15 06/28/23 History traZODone HCL [Desyrel] 50 mg PO HS PRN 06/11/23 06/28/23 History Allergies Allergy/AdvReac Type Severity Reaction Status Date / Time cephalexin Allergy Anaphylaxis Verified 06/28/23 06:46 cephalexin monohydrate Allergy Anaphylaxis Verified 06/28/23 06:46 [From Keflex] Sulfa (Sulfonamide Allergy Rash/Hives Verified 06/28/23 06:46 Antibiotics) Physical Exam Vitals: Vital Signs Temp Pulse Resp BP Pulse Ox 06/28/23 08:45 112 H 06/28/23 08:32 85 98 06/28/23 08:07 98.4 F 113 H 18 110/78 06/28/23 06:00 104 H 22 118/87 06/28/23 04:55 105 H 06/28/23 04:38 97 06/28/23 04:28 102 H 24 114/88 98 06/28/23 02:58 104 H 06/28/23 02:39 96 06/28/23 02:30 30 H 06/28/23 02:12 98 F 99 18 113/80 99 Intake and Output 06/27/23 06/28/23 06/28/23 22:59 06:59 14:59 Other: Weight 88.451 kg Head normocephalic Neck supple Lungs diminished bilaterally with expiratory wheezing Heart regular rate and rhythm S1-S2, no rub or gallop Abdomen is soft nontender nondistended positive bowel sounds no hepatosplenomegaly Extremities no edema Neuro alert and orientated to 3 Results CBC & Chem 7: 06/28/23 02:42 06/28/23 02:42 Labs: Abnormal Lab Results - Last 24 Hours (Table) 06/28/23 06/28/23 Range/Units 02:42 02:42 MCV 72.2 L (80.0-100.0) fL MCH 22.5 L (25.0-35.0) pg RDW 17.4 H (11.5-15.5) % Glucose 209 H (74-99) mg/dL ALT 45 H (4-34) U/L Assessment and Plan Assessment: 1. Shortness of breath secondary to acute exacerbation of chronic obstructive pulmonary disease 2. History of coronary artery disease with previous history of angioplasty and stent placement 4. History of ischemic cardiomyopathy 5. History of essential hypertension 6. History of hyperlipidemia 7. History of diabetes mellitus 8. Noncompliance with medication. It appears that patient was recently seen and evaluated by cardiology services in May and status post be on Plavix Lipitor aspirin not currently taking on home medication list. Will consult cardiology services DVT prophylaxis Lovenox. GI prophylaxis Protonix Pulmonary and cardiology services consulted Patient started on IV steroids and DuoNeb breathing treatments Repeat labs ordered Time with Patient: Greater than 30 (Greater than 60% of the total time spent in counseling and coordination of care)
[2023-06-28] MEDS: METOPROLOL SUCCINATE (ER) 25 MG TAB.ER.24H PO SCH (19:08)
[2023-06-28] MEDS: ASPIRIN 81 MG PO SCH ×2 (19:21→19:22)
[2023-06-28] MEDS: CLOPIDOGREL 75 MG TAB PO SCH (19:23)
[2023-06-28] MEDS: traMADol 50 MG TAB PO PRN (20:54)
[2023-06-28] MEDS: traZODone HCL 50 MG TAB PO PRN (20:54)
[2023-06-29] MEDS: MORPHINE SULFATE 4 MG/ML SYRINGE IV PRN (00:03)
[2023-06-29] MEDS: ALBUTEROL NEBULIZED 2.5 MG/3 ML INHALATION SCH ×7 (00:25→23:26)
[2023-06-29] MEDS: methylPREDNISolone SOD SUCCI 125 MG/2 ML VIAL IV SCH (03:33)
[2023-06-29 06:18] LABS: Glucose,Whole Blood 440 mg/dL (70-110)
[2023-06-29 07:47] LABS: Glucose,Whole Blood 462 mg/dL (70-110)
[2023-06-29] MEDS: SYMBICORT 160-4.5 MCG INHALER INHALATION SCH ×2 (08:20→22:09)
[2023-06-29] MEDS ORDERED: DEXTROSE 50% SYRINGE 50 ML IVP PRN ×2 (08:25)
[2023-06-29] MEDS: METOPROLOL SUCCINATE (ER) 25 MG TAB.ER.24H PO SCH (08:30)
[2023-06-29] MEDS: PANTOPRAZOLE 40 MG TABLET PO SCH (08:38)
[2023-06-29] MEDS: ENOXAPARIN 40 MG/0.4 ML SYRINGE SQ SCH (08:38)
[2023-06-29] MEDS: ASPIRIN 81 MG PO SCH (08:38)
[2023-06-29] MEDS: CLOPIDOGREL 75 MG TAB PO SCH (08:38)
[2023-06-29] MEDS: INSULIN ASPART (NovoLOG) 100 UNIT/ML VIAL SQ SCH ×4 (08:38→20:55)
[2023-06-29] MEDS ORDERED: INSULIN DETEMIR (LEVEMIR) 100 UNIT/ML SYR SQ SCH (08:45)
[2023-06-29] MEDS: SODIUM CHLORIDE 0.9% 1,000 ML IV SCH (08:46)
[2023-06-29 09:43] LABS: Glucose,Whole Blood 459 mg/dL (70-110)
[2023-06-29 11:30] LABS: Glucose,Whole Blood 393 mg/dL (70-110)
--- NOTE | 2023-06-29 12:52 | P.PN ---
Subjective Progress Note Date: 06/29/23 I am seeing this patient in new consultation today 06/28/2023 for an acute COPD exacerbation. Patient is a 72-year-old white female past medical history significant for COPD/asthma, coronary artery disease with previous coronary artery bypass grafting and subsequent stenting to the PDA, congestive heart failure, diabetes mellitus, hypertension, hyperlipidemia, fibromyalgia, is a current daily marijuana smoker, and is an ex tobacco smoker of over 30 years ago. Her primary care provider is Dr. Rodríguez. 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 She was recently discharged on 06/14/2023 for similar symptoms. Patient presented to the emergency room earlier this morning complaining of progressively worsening shortness of breath over the last 24 hours. This was associated with a congested nonproductive cough. She denies any fevers, chills, myalgias. Denies sick contacts. Denies any chest pain, heart palpitations, syncope. Does admit some lower extremity swelling. Patient is currently sitting at the edge of the bed, on room air, in no acute distress. Chest x-ray on arrival did not show any infiltrates or evidence of pneumonia CBC and BMP on arrival were unremarkable. Normal saline is infusing at 130 ML's per hour. Lactic was 1.6. Troponins 0.021. NT proBNP 1400. Patient has been started on bronchodilators, Symbicort inhaler, and IV site Medrol. She is hemodynamically stable. The patient is seen today 06/29/2023 in follow-up on the regular medical floor. She is sitting up in bed. Awake and alert in no acute distress. Maintaining O2 saturations in the 90s on room air. No IV fluids. Improved but not quite back to her baseline. Chest x-ray revealed no acute pulmonary process. Blood glucose 393. She remains on Symbicort, albuterol, Solu-Medrol. Lovenox for DVT prophylaxis. Objective - Vital Signs Vital signs: Vital Signs Temp 98.6 F 06/29/23 06:57 Pulse 100 06/29/23 12:37 Resp 20 06/29/23 08:00 BP 117/69 06/29/23 06:57 Pulse Ox 94 L 06/29/23 08:22 FiO2 21 06/29/23 08:22 Intake & Output 06/28/23 06/29/23 06/29/23 18:59 06:59 18:59 Other: # Voids 2 - Exam GENERAL EXAM: Alert, pleasant 72-year-old female, on room air, comfortable in no apparent distress. HEAD: Normocephalic. EYES: Normal reaction of pupils, equal size. NOSE: Clear with pink turbinates. THROAT: No erythema or exudates. NECK: No masses, no JVD. CHEST: No chest wall deformity. LUNGS: Equal air entry with bilateral scattered rhonchi. CVS: S1 and S2 normal with no audible murmur, regular rhythm. ABDOMEN: No hepatosplenomegaly, normal bowel sounds, no guarding or rigidity. SPINE: No scoliosis or deformity SKIN: No rashes CENTRAL NERVOUS SYSTEM: No focal deficits, tone is normal in all 4 extremities. EXTREMITIES: There is no peripheral edema. No clubbing, no cyanosis. Peripheral pulses are intact. - Labs CBC & Chem 7: 06/28/23 02:42 06/28/23 02:42 Labs: Abnormal Lab Results - Last 24 Hours (Table) 06/29/23 06/29/23 06/29/23 Range/Units 06:06 07:45 09:32 POC Glucose (mg/dL) 440 H 462 H 459 H (70-110) mg/dL 06/29/23 Range/Units 11:29 POC Glucose (mg/dL) 393 H (70-110) mg/dL Assessment and Plan Assessment: Acute COPD exacerbation, chest x-ray on arrival showed no acute infiltrates or evidence of pneumonia Dyspnea, secondary to above Coronary artery disease, with previous coronary artery bypass grafting, and subsequent stenting of the PDA 12/12/2022 Ischemic cardiomyopathy, with an improved ejection fraction of 40% Diabetes mellitus Essential hypertension Hyperlipidemia Thyroid nodule, that needs to be followed up outpatient Fibromyalgia Current marijuana smoker Former smoker Plan: The patient was seen and evaluated Labs and medications reviewed We'll decrease her IV Solu-Medrol due to hyperglycemia Currently stable and on room air Probable discharge in the a.m. We will continue to follow I have personally seen and examined the patient, performed the documentation and the assessment and plan as written. Number of minutes spent on the visit: 10.
[2023-06-29 16:09] LABS: Glucose,Whole Blood 380 mg/dL (70-110)
[2023-06-29] MEDS: methylPREDNISolone SOD SUCCI 40 MG/ML 1 ML VIAL IV SCH ×2 (16:10→23:36)
--- NOTE | 2023-06-29 16:44 | P.PN ---
Subjective Progress Note Date: 06/29/23 Mari Moore, is a 77-year-old female patient presented to the hospital with concerns of increased shortness of breath. Patient has long-standing history of COPD and asthma. Additional medical history includes coronary artery disease which she underwent coronary artery bypass graft surgery, COPD, diabetes mellitus, fibromyalgia, hyperlipidemia, hypertension, osteoarthritis, sleep apnea and ex-smoker. Patient also admits to marijuana use. Chest x-ray completed in ER showing no significant interval change no evidence of acute cardiopulmonary disease. Influenza RSV and COVID-19 negative troponin negative. WBC 8.2 creatinine 0.63 and bun 13. At this time patient was started on IV Solu-Medrol and DuoNeb breathing treatments. Pulmonary service is consulted. Current vital signs temp 98.4, heart rate 88, respiratory rate 18, blood pressure 110/70 with a pulse ox 99 on 2 L. On 06/29/2023 patient was seen and examined on the medical floor she is alert and oriented 3 in no apparent distress , she is still complaining of shortness of breath and wheezing , blood pressure remains on the low side , otherwise she denies any complaints , there is no fever or chills no headache or dizziness, no chest pain no nausea or vomiting no abdominal pain no diarrhea and no urinary symptoms. Objective - Vital Signs Vital signs: Vital Signs Temp 98.6 F 06/29/23 06:57 Pulse 100 06/29/23 08:34 Resp 20 06/29/23 08:00 BP 117/69 06/29/23 06:57 Pulse Ox 94 L 06/29/23 08:22 FiO2 21 06/29/23 08:22 Intake & Output 06/28/23 06/29/23 06/29/23 18:59 06:59 18:59 Other: # Voids 2 - Exam Head normocephalic Neck supple Lungs diminished bilaterally with expiratory wheezing Heart regular rate and rhythm S1-S2, no rub or gallop Abdomen is soft nontender nondistended positive bowel sounds no hepatosplenomegaly Extremities no edema Neuro alert and orientated to 3 - Labs CBC & Chem 7: 06/28/23 02:42 06/28/23 02:42 Labs: Abnormal Lab Results - Last 24 Hours (Table) 06/29/23 06/29/23 06/29/23 Range/Units 06:06 07:45 09:32 POC Glucose (mg/dL) 440 H 462 H 459 H (70-110) mg/dL Assessment and Plan Assessment: 1. Shortness of breath secondary to acute exacerbation of chronic obstructive pulmonary disease 2. History of coronary artery disease with previous history of angioplasty and stent placement 4. History of ischemic cardiomyopathy 5. History of essential hypertension 6. History of hyperlipidemia 7. History of diabetes mellitus 8. Noncompliance with medication. It appears that patient was recently seen an d evaluated by cardiology services in May and status post be on Plavix Lipitor aspirin not currently taking on home medication list. Will consult cardiology services. 9. Hypotension, blood pressure 82/56 cardiology consult requested, at this time holding metoprolol and lisinopril, will check echocardiogram DVT prophylaxis Lovenox. GI prophylaxis Protonix Pulmonary and cardiology services consulted Patient started on IV steroids and DuoNeb breathing treatments Repeat labs ordered
[2023-06-29 20:28] LABS: Glucose,Whole Blood 301 mg/dL (70-110)
[2023-06-30] MEDS: traZODone HCL 50 MG TAB PO PRN ×2 (01:58→22:03)
[2023-06-30] MEDS: traMADol 50 MG TAB PO PRN (01:58)
[2023-06-30] MEDS: SODIUM CHLORIDE 0.9% 1,000 ML IV SCH ×2 (03:06→10:48)
[2023-06-30] MEDS: ALBUTEROL NEBULIZED 2.5 MG/3 ML INHALATION SCH ×5 (04:29→21:02)
[2023-06-30 06:04] LABS: Glucose,Whole Blood 249 mg/dL (70-110)
[2023-06-30] MEDS: INSULIN ASPART (NovoLOG) 100 UNIT/ML VIAL SQ SCH ×4 (06:33→22:03)
[2023-06-30] MEDS: INSULIN DETEMIR (LEVEMIR) 100 UNIT/ML SYR SQ SCH (06:33)
[2023-06-30] MEDS: PANTOPRAZOLE 40 MG TABLET PO SCH (06:33)
[2023-06-30] MEDS: SYMBICORT 160-4.5 MCG INHALER INHALATION SCH ×2 (08:32→21:19)
[2023-06-30] MEDS: METOPROLOL SUCCINATE (ER) 25 MG TAB.ER.24H PO SCH (10:47)
[2023-06-30] MEDS: CLOPIDOGREL 75 MG TAB PO SCH (10:47)
[2023-06-30] MEDS: ASPIRIN 81 MG PO SCH (10:47)
[2023-06-30] MEDS: ENOXAPARIN 40 MG/0.4 ML SYRINGE SQ SCH (10:47)
[2023-06-30] MEDS: methylPREDNISolone SOD SUCCI 40 MG/ML 1 ML VIAL IV SCH (10:48)
[2023-06-30 10:52] LABS: HCT 39.1 % (37.2-46.3); HGB 11.3 d/dL (12.0-15.0); MCH 21.5 pg (27.0-32.0); MCHC 28.9 d/dL (32.0-37.0); MCV 74.3 FL (80.0-97.0); Mean Platelet Volume 10.7 FL (9.5-12.2); NRBC Per 100 WBC 0 X 10*3/uL (0.00-0.01); Platelet Count 274 X 10*3/uL (140-440); RBC 5.26 X 10*6/uL (4.10-5.20); RDW 18.8 % (11.5-14.5); WBC 12.83 X 10*3/uL (4.50-10.00)
[2023-06-30 11:06] LABS: Glucose,Whole Blood 204 mg/dL (70-110)
[2023-06-30 11:06] LABS: ALT 34 U/L (8-44); AST 15 U/L (13-35); Albumin 3.9 d/dL (3.8-4.9); Alkaline Phosphatase 96 U/L (41-126); BUN/Creat Ratio 30.14 Ratio (12.00-20.00); Blood Urea Nitrogen 21.1 mg/dL (9.0-27.0); Calcium 9.2 mg/dL (8.7-10.3); Carbon Dioxide 21.8 mmol/L (21.6-31.8); Chloride 105 mmol/L (96-109); Globulin 2.3 d/dL (1.6-3.3); Glucose 218 mg/dL (70-110); Potassium 4.5 mmol/L (3.5-5.5); Sodium 140 mmol/L (135-145); Total Bilirubin 0.3 mg/dL (0.3-1.2); Total Protein 6.2 d/dL (6.2-8.2)
--- NOTE | 2023-06-30 11:17 | P.PN ---
Subjective Progress Note Date: 06/30/23 Mari Moore, is a 77-year-old female patient presented to the hospital with concerns of increased shortness of breath. Patient has long-standing history of COPD and asthma. Additional medical history includes coronary artery disease which she underwent coronary artery bypass graft surgery, COPD, diabetes mellitus, fibromyalgia, hyperlipidemia, hypertension, osteoarthritis, sleep apnea and ex-smoker. Patient also admits to marijuana use. Chest x-ray completed in ER showing no significant interval change no evidence of acute cardiopulmonary disease. Influenza RSV and COVID-19 negative troponin negative. WBC 8.2 creatinine 0.63 and bun 13. At this time patient was started on IV Solu-Medrol and DuoNeb breathing treatments. Pulmonary service is consulted. Current vital signs temp 98.4, heart rate 88, respiratory rate 18, blood pressure 110/70 with a pulse ox 99 on 2 L. On 06/29/2023 patient was seen and examined on the medical floor she is alert and oriented 3 in no apparent distress , she is still complaining of shortness of breath and wheezing , blood pressure remains on the low side , otherwise she denies any complaints , there is no fever or chills no headache or dizziness, no chest pain no nausea or vomiting no abdominal pain no diarrhea and no urinary symptoms. On 06/30/2023 patient is alert and oriented 3 Awaiting cardiology consult and 2-D results. Blood pressure has improved. Breathing also improved patient remains on IV Solu-Medrol. Patient denies nausea vomiting and diarrhea. Patient denies any urinary burning or frequency Objective - Vital Signs Vital signs: Vital Signs Temp 97.6 F 06/30/23 07:33 Pulse 102 H 06/30/23 08:42 Resp 18 06/30/23 07:33 BP 109/76 06/30/23 07:33 Pulse Ox 96 06/30/23 08:43 FiO2 21 06/29/23 08:22 Intake & Output 06/29/23 06/30/23 06/30/23 18:59 06:59 18:59 Other: # Voids 5 2 - Exam Head normocephalic Neck supple Lungs diminished bilaterally with expiratory wheezing Heart regular rate and rhythm S1-S2, no rub or gallop Abdomen is soft nontender nondistended positive bowel sounds no hepatosplenomegaly Extremities no edema Neuro alert and orientated to 3 - Labs CBC & Chem 7: 06/30/23 06:03 06/30/23 06:03 Labs: Abnormal Lab Results - Last 24 Hours (Table) 06/29/23 06/29/23 06/29/23 Range/Units 11:29 16:07 20:26 WBC (4.50-10.00) X 10*3/uL RBC (4.10-5.20) X 10*6/uL Hgb (12.0-15.0) d/dL MCV (80.0-97.0) FL MCH (27.0-32.0) pg MCHC (32.0-37.0) d/dL RDW (11.5-14.5) % Anion Gap (4.00-12.00) mmol/L BUN/Creatinine Ratio (12.00-20.00) Ratio Glucose (70-110) mg/dL POC Glucose (mg/dL) 393 H 380 H 301 H (70-110) mg/dL Hemoglobin A1c (<=6.0) % 06/30/23 06/30/23 06/30/23 Range/Units 06:01 06:03 06:03 WBC 12.83 H (4.50-10.00) X 10*3/uL RBC 5.26 H (4.10-5.20) X 10*6/uL Hgb 11.3 L (12.0-15.0) d/dL MCV 74.3 L (80.0-97.0) FL MCH 21.5 L (27.0-32.0) pg MCHC 28.9 L (32.0-37.0) d/dL RDW 18.8 H (11.5-14.5) % Anion Gap (4.00-12.00) mmol/L BUN/Creatinine Ratio (12.00-20.00) Ratio Glucose (70-110) mg/dL POC Glucose (mg/dL) 249 H (70-110) mg/dL Hemoglobin A1c 8.4 H (<=6.0) % 06/30/23 06/30/23 Range/Units 06:03 11:05 WBC (4.50-10.00) X 10*3/uL RBC (4.10-5.20) X 10*6/uL Hgb (12.0-15.0) d/dL MCV (80.0-97.0) FL MCH (27.0-32.0) pg MCHC (32.0-37.0) d/dL RDW (11.5-14.5) % Anion Gap 13.20 H (4.00-12.00) mmol/L BUN/Creatinine Ratio 30.14 H (12.00-20.00) Ratio Glucose 218 H (70-110) mg/dL POC Glucose (mg/dL) 204 H (70-110) mg/dL Hemoglobin A1c (<=6.0) % Assessment and Plan Assessment: 1. Shortness of breath secondary to acute exacerbation of chronic obstructive pulmonary disease 2. History of coronary artery disease with previous history of angioplasty and stent placement 4. History of ischemic cardiomyopathy 5. History of essential hypertension 6. History of hyperlipidemia 7. History of diabetes mellitus 8. Noncompliance with medication. It appears that patient was recently seen and evaluated by cardiology services in May and status post be on Plavix Lipitor aspirin not currently taking on home medication list. Will consult cardiology services. 9. Hypotension, blood pressure 82/56 cardiology consult requested, at this time holding metoprolol and lisinopril, will check echocardiogram DVT prophylaxis Lovenox. GI prophylaxis Protonix Pulmonary and cardiology services consulted Patient started on IV steroids and DuoNeb breathing treatments Repeat labs ordered
[2023-06-30 12:14] LABS: Anisocytosis (M) 2+; Basophils # (A) 0.01 X 10*3/uL (0.00-0.10); Basophils % (A) 0.1 %; Elliptocytes 2+; Eosinophils # (A) 0 X 10*3/uL (0.04-0.35); Eosinophils % (A) 0 %; Lymphocytes # (A) 0.44 X 10*3/uL (0.90-5.00); Lymphocytes % (A) 3.4 %; Microcytosis (M) 2+; Monocytes # (A) 0.19 X 10*3/uL (0.20-1.00); Monocytes % (A) 1.5 %; Neutrophils % (A) 94.3 %
--- NOTE | 2023-06-30 12:27 | P.PN ---
Subjective Progress Note Date: 06/30/23 I am seeing this patient in new consultation today 06/28/2023 for an acute COPD exacerbation. Patient is a 72-year-old white female past medical history significant for COPD/asthma, coronary artery disease with previous coronary artery bypass grafting and subsequent stenting to the PDA, congestive heart failure, diabetes mellitus, hypertension, hyperlipidemia, fibromyalgia, is a current daily marijuana smoker, and is an ex tobacco smoker of over 30 years ago. Her primary care provider is Dr. Rodríguez. She does not routinely follow with a director oncology. She was recently discharged on 06/14/2023 for similar symptoms. Patient presented to the emergency room earlier this morning complaining of progressively worsening shortness of breath over the last 24 hours. This was associated with a congested nonproductive cough. She denies any fevers, chills, myalgias. Denies sick contacts. Denies any chest pain, heart palpitations, syncope. Does admit some lower extremity swelling. Patient is currently sitting at the edge of the bed, on room air, in no acute distress. Chest x-ray on arrival did not show any infiltrates or evidence of pneumonia CBC and BMP on arrival were unremarkable. Normal saline is infusing at 130 ML's per hour. Lactic was 1.6. Troponins 0.021. NT proBNP 1400. Patient has been started on bronchodilators, Symbicort inhaler, and IV site Medrol. She is hemodynamically stable. The patient is seen today 06/29/2023 in follow-up on the regular medical floor. She is sitting up in bed. Awake and alert in no acute distress. Maintaining O2 saturations in the 90s on room air. No IV fluids. Improved but not quite back to her baseline. Chest x-ray revealed no acute pulmonary process. Blood glucose 393. She remains on Symbicort, albuterol, Solu-Medrol. Lovenox for DVT prophylaxis. The patient is seen today 06/30/2023 in follow-up on the regular medical floor. She is currently resting comfortably in bed. Awake and alert in no acute distress. Continues to maintain good O2 saturations in the 90s on room air. Afebrile. Hemodynamically stable. Echocardiogram pending. White count 12.8. Hemoglobin 11.3. Platelets 274. Sodium 140. Potassium 4.5. Bicarb 22. BUN 21. Creatinine 0.7. Glucose 218. She remains on Symbicort, albuterol, IV Solu-Medrol. Lovenox for DVT prophylaxis. Objective - Vital Signs Vital signs: Vital Signs Temp 97.6 F 06/30/23 07:33 Pulse 105 H 06/30/23 12:16 Resp 18 06/30/23 11:31 BP 109/76 06/30/23 07:33 Pulse Ox 96 06/30/23 08:43 FiO2 21 06/29/23 08:22 Intake & Output 06/29/23 06/30/23 06/30/23 18:59 06:59 18:59 Other: # Voids 5 2 - Exam GENERAL EXAM: Alert, 72-year-old female, resting in bed, on room air, comfortable in no apparent distress. HEAD: Normocephalic. EYES: Normal reaction of pupils, equal size. NOSE: Clear with pink turbinates. THROAT: No erythema or exudates. NECK: No masses, no JVD. CHEST: No chest wall deformity. LUNGS: Equal air entry with bilateral scattered rhonchi. CVS: S1 and S2 normal with no audible murmur, regular rhythm. ABDOMEN: No hepatosplenomegaly, normal bowel sounds, no guarding or rigidity. SPINE: No scoliosis or deformity SKIN: No rashes CENTRAL NERVOUS SYSTEM: No focal deficits, tone is normal in all 4 extremities. EXTREMITIES: There is no peripheral edema. No clubbing, no cyanosis. Peripheral pulses are intact. - Labs CBC & Chem 7: 06/30/23 06:03 06/30/23 06:03 Labs: Abnormal Lab Results - Last 24 Hours (Table) 06/29/23 06/29/23 06/30/23 Range/Units 16:07 20:26 06:01 WBC (4.50-10.00) X 10*3/uL RBC (4.10-5.20) X 10*6/uL Hgb (12.0-15.0) d/dL MCV (80.0-97.0) FL MCH (27.0-32.0) pg MCHC (32.0-37.0) d/dL RDW (11.5-14.5) % Neutrophils # (1.80-7.70) X 10*3/uL Lymphocytes # (0.90-5.00) X 10*3/uL Monocytes # (0.20-1.00) X 10*3/uL Eosinophils # (0.04-0.35) X 10*3/uL Anisocytosis (manual) Microcytosis (manual) Elliptocytes Anion Gap (4.00-12.00) mmol/L BUN/Creatinine Ratio (12.00-20.00) Ratio Glucose (70-110) mg/dL POC Glucose (mg/dL) 380 H 301 H 249 H (70-110) mg/dL Hemoglobin A1c (<=6.0) % 06/30/23 06/30/23 06/30/23 Range/Units 06:03 06:03 06:03 WBC 12.83 H (4.50-10.00) X 10*3/uL RBC 5.26 H (4.10-5.20) X 10*6/uL Hgb 11.3 L (12.0-15.0) d/dL MCV 74.3 L (80.0-97.0) FL MCH 21.5 L (27.0-32.0) pg MCHC 28.9 L (32.0-37.0) d/dL RDW 18.8 H (11.5-14.5) % Neutrophils # 12.10 H (1.80-7.70) X 10*3/uL Lymphocytes # 0.44 L (0.90-5.00) X 10*3/uL Monocytes # 0.19 L (0.20-1.00) X 10*3/uL Eosinophils # 0 L (0.04-0.35) X 10*3/uL Anisocytosis (manual) 2+ A Microcytosis (manual) 2+ A Elliptocytes 2+ A Anion Gap 13.20 H (4.00-12.00) mmol/L BUN/Creatinine Ratio 30.14 H (12.00-20.00) Ratio Glucose 218 H (70-110) mg/dL POC Glucose (mg/dL) (70-110) mg/dL Hemoglobin A1c 8.4 H (<=6.0) % 06/30/23 Range/Units 11:05 WBC (4.50-10.00) X 10*3/uL RBC (4.10-5.20) X 10*6/uL Hgb (12.0-15.0) d/dL MCV (80.0-97.0) FL MCH (27.0-32.0) pg MCHC (32.0-37.0) d/dL RDW (11.5-14.5) % Neutrophils # (1.80-7.70) X 10*3/uL Lymphocytes # (0.90-5.00) X 10*3/uL Monocytes # (0.20-1.00) X 10*3/uL Eosinophils # (0.04-0.35) X 10*3/uL Anisocytosis (manual) Microcytosis (manual) Elliptocytes Anion Gap (4.00-12.00) mmol/L BUN/Creatinine Ratio (12.00-20.00) Ratio Glucose (70-110) mg/dL POC Glucose (mg/dL) 204 H (70-110) mg/dL Hemoglobin A1c (<=6.0) % Assessment and Plan Assessment: Acute COPD exacerbation, chest x-ray on arrival showed no acute infiltrates or evidence of pneumonia Dyspnea, secondary to above Coronary artery disease, with previous coronary artery bypass grafting, and subsequent stenting of the PDA 12/12/2022 Ischemic cardiomyopathy, with an improved ejection fraction of 40% Diabetes mellitus Essential hypertension Hyperlipidemia Thyroid nodule, that needs to be followed up outpatient Fibromyalgia Current marijuana smoker Former smoker Plan: The patient was seen and evaluated Labs and medications reviewed Transition to oral steroids Currently stable and on room air Cleared for discharge from the pulmonary standpoint Follow-up in our office in 1 week I have personally seen and examined the patient, performed the documentation and the assessment and plan as written. Number of minutes spent on the visit: 10.
--- NOTE | 2023-06-30 12:28 | P.CRDCN ---
History of Present Illness Consult date: 06/30/23 History of present illness: HISTORY OF PRESENTING ILLNESS Patient is a 72-year-old female with past medical history of coronary artery disease status post CABG in 2019 and thereafter PCI in November 2022 to distal PDA. This cath showed that she had patent SIMPSON to LAD. She also has past medical history of COPD, asthma, hypertension, hyperlipidemia, type 2 diabetes, former tobacco smoker and obesity. She was in the hospital 2 weeks ago for worsening shortness of breath and was noticed to have an episode of supraventricular tachycardia which resolved with Cardizem drip. She went into supraventricular tachycardia due to repeated breat fiona treatments she was receiving for shortness of breath. She had not had recurrence of agitation hospital ventricular tachycardia since. Distention present to the hospital with worsening shortness of breath and difficulty breathing even at rest. On admission she was noticed to be hypotensive with systolic blood pressure in the range of 90s. Due to her hypotension cardiology was consulted. Patient denies having any chest pain or chest pressure at this time. She denies having any palpitations lightheadedness or dizziness. She reports her shortness of breath is better since admission but she is still having significant cough and difficulty in breathing DIAGNOSTICS EKG reveals sinus tachycardia with incomplete left bundle-branch block. Chest xray no evidence of pulmonary congestion. Laboratory reviewed, Hb 11.3, PLt 274, BUN 21, creatinine 0.7, HbA1c of 8.4. Home cardiac medications include aspirin, Plavix, metoprolol succinate 25 mg. PRIOR CARDIAC TESTING Echocardiogram from October 2022 showed an EF of 40% REVIEW OF SYSTEMS 14 point review of system is negative except what is mentioned above in HPI. PHYSICAL EXAMINATION Vital signs reviewed. Head: Normocephalic. Eyes: Sclerae nonicteric. Neck: Brisk carotid upstroke, no jugular venous distention. Lungs: Diffuse wheezing in bilateral lung powers Heart: Regular rate and rhythm, S1-S2, no S3, no murmur or rub. Abdomen: Soft nontender, positive bowel sounds no organomegaly. Extremities: No edema, intact distal pulses. ASSESSMENT Hypotension, likely due to increased intrathoracic pressure from advanced COPD exacerbation. Also component of dehydration Acute hypoxic respiratory failure and shortness of breath due to COPD exacerbation Coronary artery disease status post CABG, and PCI to PDA in November 2022 Ischemic cardiomyopathy EF of 40% Essential hypertension, controlled Type II Diabetes Former smoker Obesity PLAN Discontinue IV fluids as patient has started developing lower extremity swelling now. Resume her aspirin and Plavix. Continue metoprolol succinate 25 mg daily. 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 Poly substance abuse 07/19/21 admitted for Acute delirium History of Any Multi-Drug Resistant Organisms: None Reported Past Surgical History: Cholecystectomy, Coronary Bypass/CABG, Hernia Repair, Orthopedic Surgery, Tonsillectomy, Tubal Ligation Additional Past Surgical History / Comment(s): LEFT KNEE ARTHROSCOPY, BMT AND MYRINGOPLASTY, umbilical hernia repair, CABG 2020 Past Anesthesia/Blood Transfusion Reactions: No Reported Reaction Additional Past Anesthesia/Blood Transfusion Reaction / Comment(s): STATES AFTER LAST EAR SX (11/2013) HAD SORE MUSCLES AND WAS WEAK FOR 3-4 DAYS Past Psychological History: Unable to Obtain Smoking Status: Former smoker Past Alcohol Use History: None Reported Past Drug Use History: None Reported, Marijuana - Past Family History Sister(s) Family Medical History: Cancer Brother(s) Family Medical History: Cancer Additional Family Medical History / Comment(s): brother had heart valve replacement Mother Family Medical History: Chest Pain / Angina, Diabetes Mellitus, Hypertension Father History Unknown: Yes Additional Family Medical History / Comment(s): , "had bad lungs" per patient, was a smoker Medications and Allergies Home Medications Medication Instructions Recorded Confirmed Type traMADol HCl [Ultram] 50 mg PO TID PRN 11/04/15 06/28/23 History traZODone HCL [Desyrel] 50 mg PO HS PRN 06/11/23 06/28/23 History Insulin Detemir (Levemir) [Levemir] 15 units DAILY 06/29/23 06/29/23 History Insulin Glargine/Lixisenatide 15 units DAILY 06/29/23 06/29/23 History [Soliqua 100 Unit-33 Mcg/ml Pen] Allergies Allergy/AdvReac Type Severity Reaction Status Date / Time cephalexin Allergy Anaphylaxis Verified 06/28/23 06:46 cephalexin monohydrate Allergy Anaphylaxis Verified 06/28/23 06:46 [From Keflex] Sulfa (Sulfonamide Allergy Rash/Hives Verified 06/28/23 06:46 Antibiotics) Physical Exam Vitals: Vital Signs Temp Pulse Pulse Resp BP Pulse Ox 06/30/23 12:16 105 H 06/30/23 12:07 101 H 06/30/23 11:31 95 18 06/30/23 08:43 96 06/30/23 08:42 102 H 06/30/23 08:32 102 H 06/30/23 07:33 97.6 F 95 18 109/76 97 06/30/23 01:21 97.8 F 52 L 20 149/72 95 06/29/23 23:44 90 06/29/23 23:28 102 H 06/29/23 22:19 95 06/29/23 22:10 100 06/29/23 20:01 98.3 F 94 18 96/58 95 06/29/23 16:49 104 H 06/29/23 16:38 100 06/29/23 13:01 97.8 F 101 H 14 85/58 06/29/23 12:53 100 06/29/23 12:37 100 Intake and Output 06/29/23 06/30/23 06/30/23 22:59 06:59 14:59 Other: # Voids 5 2 Results 06/30/23 06:03 06/30/23 06:03 Cardiac Enzymes 06/30/23 Range/Units 06:03 AST 15 (13-35) U/L CBC 06/30/23 Range/Units 06:03 WBC 12.83 H (4.50-10.00) X 10*3/uL RBC 5.26 H (4.10-5.20) X 10*6/uL Hgb 11.3 L (12.0-15.0) d/dL Hct 39.1 (37.2-46.3) % Plt Count 274 (140-440) X 10*3/uL Comprehensive Metabolic Panel 06/30/23 Range/Units 06:03 Sodium 140 (135-145) mmol/L Potassium 4.5 (3.5-5.5) mmol/L Chloride 105 (96-109) mmol/L Carbon Dioxide 21.8 (21.6-31.8) mmol/L BUN 21.1 (9.0-27.0) mg/dL Creatinine 0.7 (0.6-1.5) mg/dL Glucose 218 H (70-110) mg/dL Calcium 9.2 (8.7-10.3) mg/dL AST 15 (13-35) U/L ALT 34 (8-44) U/L Alkaline Phosphatase 96 (41-126) U/L Total Protein 6.2 (6.2-8.2) d/dL Albumin 3.9 (3.8-4.9) d/dL Current Medications Generic Name Dose Route Start Last Admin Trade Name Freq PRN Reason Stop Dose Admin Acetaminophen 650 mg 06/28/23 05:04 Acetaminophen Tab 325 Mg Tab PO Q6HR PRN Mild Pain or Fever > 100.5 Albuterol Sulfate 5 mg 06/28/23 08:00 06/30/23 12:07 Albuterol Nebulized 2.5 Mg/3 Ml INHALATION 5 mg RT-Q4H DIMA Administration Aspirin 81 mg 06/28/23 16:15 06/30/23 10:47 Aspirin 81 Mg PO 81 mg DAILY DIMA Administration Benzocaine/Menthol 1 each 06/28/23 06:49 06/28/23 07:36 Benzocaine/Menthol Lozeng 1 Each Lozenge MUCOUS MEM 1 each Q4HR PRN Administration Cough Budesonide/Formoterol Fumarate 2 puff 06/28/23 08:00 06/30/23 08:32 Symbicort 160-4.5 Mcg Inhaler INHALATION 2 puff RT-BID DIMA Administration Clopidogrel Bisulfate 75 mg 06/28/23 16:15 06/30/23 10:47 Clopidogrel 75 Mg Tab PO 75 mg DAILY DIMA Administration Dextrose/Water 25 ml 06/29/23 08:25 Dextrose 50% Syringe 50 Ml IVP PER PROTOCOL PRN Hypoglycemia Protocol Dextrose/Water 50 ml 06/29/23 08:25 Dextrose 50% Syringe 50 Ml IVP PER PROTOCOL PRN Hypoglycemia Protocol Enoxaparin Sodium 40 mg 06/29/23 09:00 06/30/23 10:47 Enoxaparin 40 Mg/0.4 Ml Syringe SQ 40 mg DAILY DIMA Administration Insulin Aspart 0 unit 06/29/23 12:30 06/30/23 06:33 Insulin Aspart (Novolog) 100 Unit/Ml Vial SQ 4 unit ACHS DIMA Administration Protocol Insulin Detemir 30 unit 06/30/23 07:00 06/30/23 06:33 Insulin Detemir (Levemir) 100 Unit/Ml Syr SQ 30 unit DAILY@0700 DIMA Administration Lisinopril 2.5 mg 06/28/23 16:45 06/30/23 10:47 Lisinopril 2.5 Mg Tab PO 2.5 mg DAILY DIMA Administration Metoprolol Succinate 25 mg 06/28/23 16:45 06/30/23 10:47 Metoprolol Succinate (Er) 25 Mg Tab.Er.24h PO 25 mg DAILY DIMA Administration Morphine Sulfate 4 mg 06/28/23 05:04 06/29/23 00:03 Morphine Sulfate 4 Mg/Ml Syringe IV 4 mg Q4HR PRN Administration Severe Pain (Scale 7 to 10) Naloxone HCl 0.2 mg 06/28/23 05:04 Naloxone 0.4 Mg/Ml 1 Ml Vial IV Q2M PRN Opioid Reversal Ondansetron HCl 4 mg 06/28/23 05:04 Ondansetron 4 Mg/2 Ml Vial IVP Q8HR PRN Nausea And Vomiting Pantoprazole Sodium 40 mg 06/29/23 07:30 06/30/23 06:33 Pantoprazole 40 Mg Tablet PO 40 mg [id number] DIMA Administration Prednisone 40 mg 07/01/23 09:00 Prednisone 20 Mg Tab PO DAILY DIMA Tramadol HCl 50 mg 06/28/23 16:07 06/30/23 01:58 Tramadol 50 Mg Tab PO 50 mg TID PRN Administration Pain Trazodone HCl 50 mg 06/28/23 09:03 06/30/23 01:58 Trazodone Hcl 50 Mg Tab PO 50 mg HS PRN Administration Insomnia Intake and Output 06/29/23 06/30/23 06/30/23 22:59 06:59 14:59 Other: # Voids 5 2 06/30/23 06:03 06/30/23 06:03
[2023-06-30] MEDS: ATORVASTATIN 40 MG TAB PO SCH (13:03)
--- NOTE | 2023-06-30 14:05 | CA ---
Transthoracic Echo Report Name: Mark Moore Age: 72 Gender: F : 1950 Exam Date: 06/30/2023 09:28 Exam Location: [place] [facility] Ht (in): 62 Wt (lb): 195 Ordering Physician: Surinder Rodríguez MD Attending/Referring Phys: Language Arts Teacher Riccardo Earl Procedure CPT: Indications: Hypotension Cardiac Hx: Technical Quality: Fair Contrast 1: Total Dose (mL): Contrast 2: Total Dose (mL): MEASUREMENTS (Male / Female) Normal Values 2D ECHO LV Diastolic Diameter PLAX 5.4 cm 4.2 - 5.9 / 3.9 - 5.3 cm LV Systolic Diameter PLAX 4.7 cm IVS Diastolic Thickness 1.4 cm 0.6 - 1.0 / 0.6 - 0.9 cm LVPW Diastolic Thickness 1.5 cm 0.6 - 1.0 / 0.6 - 0.9 cm LV Relative Wall Thickness 0.5 RV Internal Dim ED PLAX 2.7 cm LVOT Diameter 2.1 cm Aortic Root Diameter 3.1 cm LA Systolic Diameter LX 3.2 cm 3.0 - 4.0 / 2.7 - 3.8 cm LV Diastolic Volume MOD BP 111.6 cm??? 67 - 155 / 56 - 104 cm??? LV Systolic Volume MOD BP 81.9 cm??? - 58 / 19 - 49 cm??? LV Ejection Fraction MOD BP 26.7 % >= 55 % LV Cardiac Index MOD BP 1407.5 cm???/min???m??? LV Diastolic Volume MOD 4C 110.7 cm??? LV Systolic Volume MOD 4C 71.0 cm??? LV Ejection Fraction MOD 4C 35.9 % LV Cardiac Index MOD 4C 1877.7 cm???/min???m??? LV Diastolic Length 4C 7.6 cm LV Systolic Length 4C 6.8 cm LV Diastolic Volume MOD 2C 112.6 cm??? LV Systolic Volume MOD 2C 92.6 cm??? LV Ejection Fraction MOD 2C 17.8 % LV Cardiac Index MOD 2C 946.4 cm???/min???m??? LV Diastolic Length 2C 7.6 cm LV Systolic Length 2C 7.0 cm LA Volume 59.1 cm??? 18 - 58 / 22 - 52 cm??? Ascending Aorta Diameter 3.2 cm DOPPLER AV Peak Velocity 174.2 cm/s AV Peak Gradient 12.1 mmHg AI Peak Velocity 331.5 cm/s AI Peak Gradient 44.0 mmHg AI Pressure Half Time 714.4 ms LVOT Peak Velocity 91.8 cm/s LVOT Peak Gradient 3.4 mmHg LVOT Velocity Time Integral 19.6 cm LVOT Stroke Volume 67.8 cm??? LVOT Stroke Volume Index 35.8 ml/m??? LVOT Cardiac Index 3204.7 cm???/min???m??? AV Area Cont Eq pk 1.8 cm??? MV Peak Velocity 160.7 cm/s MV Peak Gradient 10.3 mmHg MV Mean Velocity 109.0 cm/s MV Mean Gradient 5.4 mmHg MV Velocity Time Integral 47.9 cm MR Peak Velocity 337.7 cm/s MR Peak Gradient 45.6 mmHg Mitral E Point Velocity 144.0 cm/s Mitral A Point Velocity 121.5 cm/s Mitral E to A Ratio 1.2 MV Deceleration Time 253.4 ms MV E' Velocity 2.9 cm/s Mitral E to MV E' Ratio 49.6 TR Peak Velocity 203.9 cm/s TR Peak Gradient 16.6 mmHg Right Ventricular Systolic Press 22.5 mmHg PV Peak Velocity 135.7 cm/s PV Peak Gradient 7.4 mmHg FINDINGS Left Ventricle Normal LV size and wall thickness. Left ventricular ejection fraction is estimated at 30-35 %. Severely reduced global LV systolic function. Mild inferior hypokinesia, appears to be old. Right Ventricle Normal right ventricular size. RVSP= 34mmHg. Right Atrium Normal right atrial size. Left Atrium Normal left atrial size. LA volume index= 31ml/m2 Mitral Valve Moderate mitral annular calcification. Moderate MR. calcific posterior mitral leaflet Aortic Valve Trileaflet aortic valve. Mild to moderate AV calcification. Mild AI. Tricuspid Valve Structurally normal tricuspid valve. Mild TR. Pulmonic Valve Pulmonic valve not well visualized. No pulmonic regurgitation. Pericardium No pericardial effusion Aorta Normal size aortic root and proximal ascending aorta. CONCLUSIONS Normal LV size. Severely reduced global LV systolic function. EF estimated at 30-35% Possible mild inferior hypokinesia appears to be old Moderate annular calcification with mild to moderate mitral regurgitation Mild aortic valve calcification with mild aortic insufficiency Patient appears to be in sinus arrhythmia. When compared to prior echocardiogram, LVEF appears to be mildly reduced. Prior echo from 10/2022 reported EF of 40% Previewed by: Dr Johnathan More (Electronically Signed) Final Date: 30 June 2023 14:04
[2023-06-30 16:38] LABS: Glucose,Whole Blood 329 mg/dL (70-110)
[2023-06-30 19:45] LABS: Glucose,Whole Blood 319 mg/dL (70-110)
[2023-07-01] MEDS: ALBUTEROL NEBULIZED 2.5 MG/3 ML INHALATION SCH ×4 (00:42→11:45)
[2023-07-01 05:05] LABS: Glucose,Whole Blood 233 mg/dL (70-110)
[2023-07-01] MEDS: INSULIN DETEMIR (LEVEMIR) 100 UNIT/ML SYR SQ SCH (06:30)
[2023-07-01] MEDS: PANTOPRAZOLE 40 MG TABLET PO SCH (06:30)
[2023-07-01] MEDS: INSULIN ASPART (NovoLOG) 100 UNIT/ML VIAL SQ SCH ×2 (06:30→12:17)
[2023-07-01] MEDS: CLOPIDOGREL 75 MG TAB PO SCH (08:07)
[2023-07-01] MEDS: ENOXAPARIN 40 MG/0.4 ML SYRINGE SQ SCH (08:07)
[2023-07-01] MEDS: ATORVASTATIN 40 MG TAB PO SCH (08:07)
[2023-07-01] MEDS: ASPIRIN 81 MG PO SCH (08:07)
[2023-07-01] MEDS: METOPROLOL SUCCINATE (ER) 25 MG TAB.ER.24H PO SCH (08:07)
[2023-07-01] MEDS: SYMBICORT 160-4.5 MCG INHALER INHALATION SCH (08:17)
[2023-07-01] MEDS ORDERED: predniSONE 20 MG TAB PO SCH (09:00)
--- NOTE | 2023-07-01 11:19 | P.PN ---
Subjective Progress Note Date: 07/01/23 I am seeing this patient in new consultation today 06/28/2023 for an acute COPD exacerbation. Patient is a 72-year-old white female past medical history significant for COPD/asthma, coronary artery disease with previous coronary artery bypass grafting and subsequent stenting to the PDA, congestive heart failure, diabetes mellitus, hypertension, hyperlipidemia, fibromyalgia, is a current daily marijuana smoker, and is an ex tobacco smoker of over 30 years ago. Her primary care provider is Dr. Rodríguez. She does not routinely follow with a trouble shooter. She was recently discharged on 06/14/2023 for similar symptoms. Patient presented to the emergency room earlier this morning complaining of progressively worsening shortness of breath over the last 24 hours. This was associated with a congested nonproductive cough. She denies any fevers, chills, myalgias. Denies sick contacts. Denies any chest pain, heart palpitations, syncope. Does admit some lower extremity swelling. Patient is currently sitting at the edge of the bed, on room air, in no acute distress. Chest x-ray on arrival did not show any infiltrates or evidence of pneumonia CBC and BMP on arrival were unremarkable. Normal saline is infusing at 130 ML's per hour. Lactic was 1.6. Troponins 0.021. NT proBNP 1400. Patient has been started on bronchodilators, Symbicort inhaler, and IV site Medrol. She is hemodynamically stable. The patient is seen today 06/29/2023 in follow-up on the regular medical floor. She is sitting up in bed. Awake and alert in no acute distress. Maintaining O2 saturations in the 90s on room air. No IV fluids. Improved but not quite back to her baseline. Chest x-ray revealed no acute pulmonary process. Blood glucose 393. She remains on Symbicort, albuterol, Solu-Medrol. Lovenox for DVT prophylaxis. The patient is seen today 06/30/2023 in follow-up on the regular medical floor. She is currently resting comfortably in bed. Awake and alert in no acute distress. Continues to maintain good O2 saturations in the 90s on room air. Afebrile. Hemodynamically stable. Echocardiogram pending. White count 12.8. Hemoglobin 11.3. Platelets 274. Sodium 140. Potassium 4.5. Bicarb 22. BUN 21. Creatinine 0.7. Glucose 218. She remains on Symbicort, albuterol, IV Solu-Medrol. Lovenox for DVT prophylaxis. the patient is seen today 07/01/2023 in follow-up on the regular medical floor. She is currently awake and alert in no acute distress. Resting comfortably in bed. Maintaining O2 saturations in the 90s on room air. echocardiogram does reveal severely reduced global LV systolic function with an ejection fraction of 30-35%. Blood glucose 233. She remains on Symbicort, prednisone taper. Objective - Vital Signs Vital signs: Vital Signs Temp 98.3 F 07/01/23 07:57 Pulse 98 07/01/23 08:29 Resp 19 07/01/23 07:57 BP 88/53 07/01/23 07:57 Pulse Ox 97 07/01/23 08:18 FiO2 21 06/29/23 08:22 Intake & Output 06/30/23 07/01/23 07/01/23 18:59 06:59 18:59 Intake Total 550 Balance 550 Intake: Oral 550 Other: # Voids 2 0 - Exam GENERAL EXAM: Alert, pleasant 72-year-old female, on room air, comfortable in no apparent distress. HEAD: Normocephalic. EYES: Normal reaction of pupils, equal size. NOSE: Clear with pink turbinates. THROAT: No erythema or exudates. NECK: No masses, no JVD. CHEST: No chest wall deformity. LUNGS: Equal air entry with bilateral scattered rhonchi. CVS: S1 and S2 normal with no audible murmur, regular rhythm. ABDOMEN: No hepatosplenomegaly, normal bowel sounds, no guarding or rigidity. SPINE: No scoliosis or deformity SKIN: No rashes CENTRAL NERVOUS SYSTEM: No focal deficits, tone is normal in all 4 extremities. EXTREMITIES: There is no peripheral edema. No clubbing, no cyanosis. Peripheral pulses are intact. - Labs CBC & Chem 7: 06/30/23 06:03 06/30/23 06:03 Labs: Abnormal Lab Results - Last 24 Hours (Table) 06/30/23 06/30/23 06/30/23 Range/Units 06:03 16:37 19:44 Neutrophils # 12.10 H (1.80-7.70) X 10*3/uL Lymphocytes # 0.44 L (0.90-5.00) X 10*3/uL Monocytes # 0.19 L (0.20-1.00) X 10*3/uL Eosinophils # 0 L (0.04-0.35) X 10*3/uL Anisocytosis (manual) 2+ A Microcytosis (manual) 2+ A Elliptocytes 2+ A POC Glucose (mg/dL) 329 H 319 H (70-110) mg/dL 07/01/23 Range/Units 05:03 Neutrophils # (1.80-7.70) X 10*3/uL Lymphocytes # (0.90-5.00) X 10*3/uL Monocytes # (0.20-1.00) X 10*3/uL Eosinophils # (0.04-0.35) X 10*3/uL Anisocytosis (manual) Microcytosis (manual) Elliptocytes POC Glucose (mg/dL) 233 H (70-110) mg/dL Assessment and Plan Assessment: Acute COPD exacerbation, chest x-ray on arrival showed no acute infiltrates or evidence of pneumonia Dyspnea, secondary to above Coronary artery disease, with previous coronary artery bypass grafting, and subsequent stenting of the PDA 12/12/2022 Ischemic cardiomyopathy, with an impaired left ventricular systolic function with an ejection fraction of 30-35% Diabetes mellitus Essential hypertension Hyperlipidemia Thyroid nodule, that needs to be followed up outpatient Fibromyalgia Current marijuana smoker Former smoker Plan: The patient was seen and evaluated Echocardiogram and medications reviewed Cardiology is following Currently stable and on room air Cleared for discharge from the pulmonary standpoint Follow-up in our office in 1 week I have personally seen and examined the patient, performed the documentation and the assessment and plan as written. Number of minutes spent on the visit: 10.
[2023-07-01 11:54] LABS: Glucose,Whole Blood 304 mg/dL (70-110)
--- NOTE | 2023-07-01 12:23 | P.PN ---
Subjective Progress Note Date: 07/01/23 HISTORY OF PRESENTING ILLNESS Patient is a 72-year-old female with past medical history of COPD, asthma, hypertension, hyperlipidemia, type 2 diabetes, former tobacco smoker and obes ity, and coronary artery disease status post CABG in 2019 and thereafter PCI in November 2022 to distal PDA, cath showed that she had patent SIMPSON to LAD. She was in the hospital 2 weeks ago for worsening shortness of breath and was noticed to have an episode of supraventricular tachycardia which resolved with Cardizem drip. She went into supraventricular tachycardia due to repeated breathing treatments she was receiving for shortness of breath. She had not had recurrence of agitation hospital ventricular tachycardia since. On admission she was noticed to be hypotensive with systolic blood pressure in the range of 90s. Due to her hypotension cardiology was consulted. Patient denies having any chest pain or chest pressure at this time. She denies having any palpitations lightheadedness or dizziness. She reports her shortness of breath is better since admission but she is still having significant cough and difficulty in breathing. 07/01/23 She reports that her breathing is feeling better, but is not quite back to her baseline yet. Denies any chest pain or pressure. SBP lower today 80-90's. ECHO 06/30/23 with EF 30-35%, moderate mitral regurgitation. DIAGNOSTICS EKG reveals sinus tachycardia with incomplete left bundle-branch block. Chest xray no evidence of pulmonary congestion. Laboratory reviewed, Hb 11.3, PLt 274, BUN 21, creatinine 0.7, HbA1c of 8.4. BNP 1400. Home cardiac medications include aspirin, Plavix, metoprolol succinate 25 mg. PRIOR CARDIAC TESTING Echocardiogram from October 2022 showed an EF of 40% REVIEW OF SYSTEMS 14 point review of system is negative except what is mentioned above in HPI. PHYSICAL EXAMINATION Vital signs reviewed. Head: Normocephalic. Eyes: Sclerae nonicteric. Neck: Brisk carotid upstroke, no jugular venous distention. Lungs: Wheezing in bilateral lung powers. Heart: Regular rate and rhythm, S1-S2, no S3, no murmur or rub. Abdomen: Soft nontender. Extremities: No edema, intact distal pulses. ASSESSMENT Hypotension, likely due to increased intrathoracic pressure from advanced COPD exacerbation. Also component of dehydration Acute hypoxic respiratory failure and shortness of breath due to COPD e xacerbation Coronary artery disease status post CABG, and PCI to PDA in November 2022 Ischemic cardiomyopathy Essential hypertension, controlled Type II Diabetes Former smoker Obesity PLAN ECHO reviewed, relatively stable. Continue with current medications. Cardiology to sign off. Please call with any questions. Follow up in clinic 1 week. Patient seen and examined with Dr. Grewal, plan of care agreed upon. Objective - Vital Signs Vital signs: Vital Signs Temp 98.3 F 07/01/23 07:57 Pulse 92 07/01/23 11:57 Resp 19 07/01/23 07:57 BP 88/53 07/01/23 07:57 Pulse Ox 97 07/01/23 08:18 FiO2 21 06/29/23 08:22 Intake & Output 06/30/23 07/01/23 07/01/23 18:59 06:59 18:59 Intake Total 550 Balance 550 Intake: Oral 550 Other: # Voids 2 0 - Labs CBC & Chem 7: 06/30/23 06:03 06/30/23 06:03 Labs: Abnormal Lab Results - Last 24 Hours (Table) 06/30/23 06/30/23 07/01/23 Range/Units 16:37 19:44 05:03 POC Glucose (mg/dL) 329 H 319 H 233 H (70-110) mg/dL 07/01/23 Range/Units 11:53 POC Glucose (mg/dL) 304 H (70-110) mg/dL
[2023-07-01 14:51] VITALS: BP 107/66; PULSE 64; RESP 18; TEMP 97.7
--- NOTE | 2023-07-01 15:22 | P.DS ---
Providers Date of admission: 06/28/23 05:03 Expected date of discharge: 07/01/23 Attending physician: Surinder Rodríguez Consults: 06/28/23 05:03 Consult Physician Routine Consulting Provider: Silvia Murry Consult Reason/Comments: copd Do you want consulting provider notified?: Yes Primary care physician: Surinder Marcos [facility] Course: Diagnosis on discharge: 1. Shortness of breath secondary to acute exacerbation of chronic obstructive pulmonary disease 2. History of coronary artery disease with previous history of angioplasty and stent placement 4. History of ischemic cardiomyopathy 5. History of essential hypertension 6. History of hyperlipidemia 7. History of diabetes mellitus 8. Noncompliance with medication. It appears that patient was recently seen and evaluated by cardiology services in May and status post be on Plavix Lipitor aspirin not currently taking on home medication list. Will consult cardiology services. 9. Hypotension, blood pressure 82/56 cardiology consult requested, at this time holding metoprolol and lisinopril, will check echocardiogram Hospital course: Mari Moore, is a 77-year-old female patient presented to the hospital with concerns of increased shortness of breath. Patient has long-standing history of COPD and asthma. Additional medical history includes coronary artery disease which she underwent coronary artery bypass graft surgery, COPD, diabetes mellitus, fibromyalgia, hyperlipidemia, hypertension, osteoarthritis, sleep apnea and ex-smoker. Patient also admits to marijuana use. Chest x-ray completed in ER showing no significant interval change no evidence of acute cardiopulmonary disease. Influenza RSV and COVID-19 negative troponin negative. WBC 8.2 creatinine 0.63 and bun 13. At this time patient was started on IV Solu-Medrol and DuoNeb breathing treatments. Pulmonary service is consulted. Current vital signs temp 98.4, heart rate 88, respiratory rate 18, blood pressure 110/70 with a pulse ox 99 on 2 L. On 06/29/2023 patient was seen and examined on the medical floor she is alert and oriented 3 in no apparent distress , she is still complaining of shortness of breath and wheezing , blood pressure remains on the low side , otherwise she denies any complaints , there is no fever or chills no headache or dizziness, no chest pain no nausea or vomiting no abdominal pain no diarrhea and no urinary symptoms. On 06/30/2023 patient is alert and oriented 3 Awaiting cardiology consult and 2-D results. Blood pressure has improved. Breathing also improved patient remains on IV Solu-Medrol. Patient denies nausea vomiting and diarrhea. Patient denies any urinary burning or frequency On 07/01/2023 patient was seen and examined on the medical floor, she is alert and oriented 3 in no apparent distress, there is no fever or chills no headache or dizziness no chest pain, her shortness of breath and cough has improved significantly, there is no nausea or vomiting no abdominal pain no diarrhea and no urinary symptoms. She was evaluated by pulmonary, she was switched to oral prednisone and was cleared for discharge. She was also seen by cardiology, echocardiogram review, patient was cleared for discharge on her same medications. Patient has a long history of noncompliance with medications, when she came into the hospital, she was not taking any of her cardiac medications, she was counseled in length in that regard, she was given written prescriptions for aspirin, Plavix, Lipitor, Toprol-XL, lisinopril, Soliqua, Symbicort, prednisone, and DuoNeb updrafts or effusion. She was also given a written prescription for a nebulizer. She will be followed in our office in 2-3 days to assure adherence to all her medication regimen. Patient Condition at Discharge: Fair Plan - Discharge Summary Discharge Rx Participant: Yes New Discharge Prescriptions: New Aspirin 81 mg PO DAILY tab Clopidogrel [Plavix] 75 mg PO DAILY tab Insulin Glargine/Lixisenatide [Soliqua 100 Unit-33 Mcg/ml Pen] 30 units SQ DAILY 30 Days #1 pen Budesonide-Formot 160-4.5 Mcg [Symbicort 160-4.5 Mcg Inhaler] 2 puff INHALATION RT-BID each Metoprolol Succinate (ER) [Toprol XL] 25 mg PO DAILY tab lisinopriL [Zestril] 2.5 mg PO DAILY tab predniSONE [Deltasone] 40 mg PO DAILY tab Atorvastatin [Lipitor] 40 mg PO DAILY tab Albuterol Nebulized [Ventolin Nebulized] 2.5 mg INHALATION RT-Q4H ml Continue traMADol HCl [Ultram] 50 mg PO TID PRN PRN Reason: Pain traZODone HCL [Desyrel] 50 mg PO HS PRN PRN Reason: Insomnia Discontinued Insulin Detemir (Levemir) [Levemir] 15 units DAILY Insulin Glargine/Lixisenatide [Soliqua 100 Unit-33 Mcg/ml Pen] 15 units DAILY Discharge Medication List traMADol HCl [Ultram] 50 mg PO TID PRN 11/04/15 [History] traZODone HCL [Desyrel] 50 mg PO HS PRN 06/11/23 [History] Albuterol Nebulized [Ventolin Nebulized] 2.5 mg INHALATION RT-Q4H ml 07/01/23 [Rx] Aspirin 81 mg PO DAILY tab 07/01/23 [Rx] Atorvastatin [Lipitor] 40 mg PO DAILY tab 07/01/23 [Rx] Budesonide-Formot 160-4.5 Mcg [Symbicort 160-4.5 Mcg Inhaler] 2 puff INHALATION RT-BID each 07/01/23 [Rx] Clopidogrel [Plavix] 75 mg PO DAILY tab 07/01/23 [Rx] Insulin Glargine/Lixisenatide [Soliqua 100 Unit-33 Mcg/ml Pen] 30 units SQ DAILY 30 Days #1 pen 07/01/23 [Rx] Metoprolol Succinate (ER) [Toprol XL] 25 mg PO DAILY tab 07/01/23 [Rx] lisinopriL [Zestril] 2.5 mg PO DAILY tab 07/01/23 [Rx] predniSONE [Deltasone] 40 mg PO DAILY tab 07/01/23 [Rx] Follow up Appointment(s)/Referral(s): [facility],Equipment [NON-STAFF] - As Needed (Call [facility] if you have questions regarding your new nebulizer. ) Surinder Rodríguez MD [Primary Care Provider] - 1-2 days Patient Instructions/Handouts: COPD (Chronic Obstructive Pulmonary Disease) (DC) Activity/Diet/Wound Care/Special Instructions: Glucometer is at [facility] at [facility]. Please obtain prior to discharge.
--- NOTE | 2023-07-04 16:10 | CDI ---
Documentation Clarification Form Date: 07/04/2023 04:00:04 PM From: Tiff Gusman Phone: Admit Date: 06/28/2023 05:03:00 AM Patient Name: Mark Moore Visit Number: [id number] Discharge Date: 07/01/2023 03:45:00 PM ATTENTION: The Clinical Documentation Specialists (CDI) and [facility] Coding Staff appreciate your assistance in clarifying documentation. Please respond to the clarification below the line at the bottom and electronically sign. The CDI & [facility] Coding staff will review the response and follow-up if needed. Please note: Queries are made part of the Legal Health Record. If you have any questions, please contact the author of this message via ITS. Dr. Surinder Rodríguez Your patient has the documented diagnosis of unspecified CHF per ED Note and following Progress Notes. Additional information regarding the type and acuity of CHF is requested. History/Risk Factors: 72yo F, Hypotension, likely d/t AECOPD, dehydration, AHRF, CAD sp CABG/stents, ICM, HTN, DMII, former smoker, obesity Clinical Indicators: VS/Pulse OX: 99 BNP: 1400 Echocardiogram Results: reveal severelyreducedglobal LV systolic function with an ejection fraction of 30-35%. Chest x ray: stable mildcardiomegaly Treatment: ECHO reviewed, relatively stable. Continue with current medications. Cardiology to sign off. Please call with any questions. Follow upin clinic 1 week. Patient seen and examined withDr. Grewal, plan of care agreed upon. In your professional opinion, can you please clarify the type and acuity of CHF if known? [ ] Acute Systolic Heart Failure (reduced EF) [ xxxxx ] Chronic Systolic Heart Failure (reduced EF) [ ] Acute on Chronic Systolic Heart Failure (reduced EF) [ ] Acute Diastolic Heart Failure (preserved EF) [ ] Chronic Diastolic Heart Failure (preserved EF) [ ] Acute on Chronic Diastolic Heart Failure (preserved EF) [ ] Other, please specify [ ] Unable to determine (Template Last Revised: November 2020) MTDD
== END 2023-07-01 15:45 | disposition home or self-care (01) | DRG 190 ==
LOC: EC 02:06 → 4SSUR 05:03
PROVIDERS: ADMIT Internal Medicine; ATTEND Internal Medicine
DX: J44.1 Chronic obstructive pulmonary disease with (acute) exacerbation (principal); J96.01 Acute respiratory failure with hypoxia; J45.901 Unspecified asthma with (acute) exacerbation; I50.22 Chronic systolic (congestive) heart failure; I11.0 Hypertensive heart disease with heart failure; M32.9 Systemic lupus erythematosus, unspecified; F19.11 Other psychoactive substance abuse, in remission; Z79.4 Long term (current) use of insulin; E11.65 Type 2 diabetes mellitus with hyperglycemia; I95.9 Hypotension, unspecified; I34.0 Nonrheumatic mitral (valve) insufficiency; E04.1 Nontoxic single thyroid nodule; E66.9 Obesity, unspecified; Z68.35 Body mass index [BMI] 35.0-35.9, adult; I25.10 Atherosclerotic heart disease of native coronary artery without angina pectoris; I25.5 Ischemic cardiomyopathy; E78.5 Hyperlipidemia, unspecified; T45.526A Underdosing of antithrombotic drugs, initial encounter; T46.6X6A Underdosing of antihyperlipidemic and antiarteriosclerotic drugs, initial encounter; T39.016A Underdosing of aspirin, initial encounter; M79.7 Fibromyalgia; G47.30 Sleep apnea, unspecified; M77.9 Enthesopathy, unspecified; M47.9 Spondylosis, unspecified; I44.7 Left bundle-branch block, unspecified; E86.0 Dehydration; F41.9 Anxiety disorder, unspecified; Z20.822 Contact with and (suspected) exposure to COVID-19; Z95.5 Presence of coronary angioplasty implant and graft; Z91.148 Patient's other noncompliance with medication regimen for other reason; Z87.891 Personal history of nicotine dependence; Z95.1 Presence of aortocoronary bypass graft; Z82.49 Family history of ischemic heart disease and other diseases of the circulatory system; Z79.899 Other long term (current) drug therapy; Z79.82 Long term (current) use of aspirin; Z79.02 Long term (current) use of antithrombotics/antiplatelets; Z88.1 Allergy status to other antibiotic agents; Z88.2 Allergy status to sulfonamides; Z79.51 Long term (current) use of inhaled steroids
CPT/HCPCS: 36415; 71046; 80053; 83036; 83605; 83735; 83880; 84484; 85025; 85610; 85730; 87636; 93005; 93306; 94640; 94760; 96361; 96374; 96375; 96376; 99285

== ENCOUNTER 2023-07-22 02:15 | Inpatient (IN) | payer MEDICARE, OTHER ==
[2023-07-22] MEDS ORDERED: ALBUTEROL NEBULIZED 2.5 MG/3 ML INHALATION STA (03:41)
[2023-07-22] MEDS ORDERED: IPRATROPIUM-ALBUTEROL 3 ML NEB INHALATION STA (03:41)
--- NOTE | 2023-07-22 03:43 | ED ---
SOB HPI - General Chief Complaint: Shortness of Breath Stated Complaint: SOB,Coughing Time Seen by Provider: 07/22/23 02:43 Source: patient Mode of arrival: wheelchair - History of Present Illness Initial Comments: This patient is a 72-year-old woman who states she has history of asthma and it feels like things been flaring up. She has been having cough and shortness of breath"all night." She has not noted fever. There is no chest pain. She states she does have some bilateral ankle swelling but this is something that she gets regularly and is not new. No change in urination or bowel movements. MD Complaint: shortness of breath, cough -: hour(s) Severity: mild Quality: aching Consistency: constant Improves With: nothing Worsens With: nothing Known History Of: asthma Associated Symptoms: cough Treatments Prior to Arrival: none - Related Data Home Medications Medication Instructions Recorded Confirmed traMADol HCl [Ultram] 50 mg PO TID PRN 11/04/15 07/22/23 traZODone HCL [Desyrel] 50 mg PO HS PRN 06/11/23 07/22/23 Albuterol Nebulized [Ventolin 2.5 mg INHALATION RT-Q4H PRN 07/22/23 07/22/23 Nebulized] Ipratropium-Albuterol Nebulize 3 ml INHALATION RT-QID 07/22/23 07/22/23 [Duoneb 0.5 mg-3 mg/3 ml Soln] Previous Rx's Medication Instructions Recorded Aspirin 81 mg PO DAILY tab 07/01/23 Clopidogrel [Plavix] 75 mg PO DAILY tab 07/01/23 Insulin Glargine/Lixisenatide 30 units SQ DAILY 30 Days #1 pen 07/01/23 [Soliqua 100 Unit-33 Mcg/ml Pen] Metoprolol Succinate (ER) [Toprol 25 mg PO DAILY tab 07/01/23 XL] lisinopriL [Zestril] 2.5 mg PO DAILY tab 07/01/23 Atorvastatin [Lipitor] 80 mg PO DAILY 30 Days #30 tab 07/25/23 Furosemide [Lasix] 40 mg PO DAILY 30 Days #30 tab 07/25/23 predniSONE [Deltasone] 30 mg PO DAILY 12 Days #14 tab 07/25/23 Allergies Allergy/AdvReac Type Severity Reaction Status Date / Time cephalexin Allergy Anaphylaxis Verified 07/22/23 10:51 cephalexin monohydrate Allergy Anaphylaxis Verified 07/22/23 10:51 [From Keflex] Sulfa (Sulfonamide Allergy Rash/Hives Verified 07/22/23 10:51 Antibiotics) Review of Systems ROS Statement: Those systems with pertinent positive or pertinent negative responses have been documented in the HPI. ROS Other: All systems not noted in ROS Statement are negative. Constitutional: Denies: fever, chills Respiratory: Reports: cough, dyspnea, wheezes. Denies: hemoptysis Cardiovascular: Reports: edema. Denies: chest pain, palpitations, orthopnea, syncope Gastrointestinal: Denies: abdominal pain, nausea, vomiting, melena, hematochezia Genitourinary: Denies: dysuria, hematuria Musculoskeletal: Denies: back pain Skin: Denies: rash Neurological: Denies: headache, weakness Past Medical History Past Medical History: Asthma, Coronary Artery Disease (CAD), Heart Failure, COPD, Diabetes Mellitus, Fibromyalgia, Hyperlipidemia, Hypertension, Musculoskeletal Disorder, Osteoarthritis (OA), Sleep Apnea/CPAP/BIPAP Additional Past Medical History / Comment(s): TESTED POSITIVE FOR LUPUS (STATES NO SYMPTOMS), DOES NOT USE CPAP, SEASONAL ALLERGIES, STATES 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 Poly substance abuse 07/19/21 admitted for Acute delirium History of Any Multi-Drug Resistant Organisms: None Reported Past Surgical History: Cholecystectomy, Coronary Bypass/CABG, Hernia Repair, Orthopedic Surgery, Tonsillectomy, Tubal Ligation Additional Past Surgical History / Comment(s): LEFT KNEE ARTHROSCOPY, BMT AND MYRINGOPLASTY, umbilical hernia repair, CABG 2020 Past Anesthesia/Blood Transfusion Reactions: No Reported Reaction Additional Past Anesthesia/Blood Transfusion Reaction / Comment(s): STATES AFTER LAST EAR SX (11/2013) HAD SORE MUSCLES AND WAS WEAK FOR 3-4 DAYS Past Psychological History: Unable to Obtain Smoking Status: Former smoker Past Alcohol Use History: None Reported Past Drug Use History: None Reported, Marijuana - Past Family History Sister(s) Family Medical History: Cancer Brother(s) Family Medical History: Cancer Additional Family Medical History / Comment(s): brother had heart valve replacement Mother Family Medical History: Chest Pain / Angina, Diabetes Mellitus, Hypertension Father History Unknown: Yes Additional Family Medical History / Comment(s): , "had bad lungs" per patient, was a smoker General Exam General appearance: alert, in no apparent distress Head exam: Present: atraumatic, normocephalic Eye exam: Present: normal appearance. Absent: scleral icterus, conjunctival injection ENT exam: Present: normal oropharynx Neck exam: Present: normal inspection Respiratory exam: Present: wheezes. Absent: respiratory distress, rales, rhonchi, stridor, chest wall tenderness, accessory muscle use Cardiovascular Exam: Present: regular rate, normal rhythm, normal heart sounds. Absent: systolic murmur, diastolic murmur, rubs, gallop GI/Abdominal exam: Present: soft. Absent: distended, tenderness, guarding, rebound, rigid, mass Extremities exam: Present: normal inspection, normal capillary refill, pedal edema. Absent: calf tenderness Back exam: Present: normal inspection. Absent: CVA tenderness (R), CVA tenderness (L) Neurological exam: Present: alert Skin exam: Present: warm, dry, intact, normal color. Absent: rash Course Vital Signs 07/22/23 07/22/23 07/22/23 02:19 02:40 02:50 Temperature 98.1 F Pulse Rate 122 H 113 H 116 H Pulse Rate [ Therapist Rrt ] Respiratory 41 H 16 18 Rate Blood Pressure 131/68 128/88 128/88 Blood Pressure [Left Arm] O2 Sat by Pulse 99 98 95 Oximetry 07/22/23 07/22/23 07/22/23 03:10 04:02 04:16 Temperature Pulse Rate 111 H 54 L 56 L Pulse Rate [ Therapist Rrt ] Respiratory 19 Rate Blood Pressure 116/79 Blood Pressure [Left Arm] O2 Sat by Pulse 97 Oximetry 07/22/23 07/22/23 07/22/23 04:40 06:17 07:41 Temperature Pulse Rate 116 H 106 H 108 H Pulse Rate [ Therapist Rrt ] Respiratory 18 16 20 Rate Blood Pressure 117/78 102/68 119/74 Blood Pressure [Left Arm] O2 Sat by Pulse 96 97 98 Oximetry 07/22/23 07/22/23 07/22/23 08:08 08:18 10:11 Temperature 97.8 F Pulse Rate 98 99 106 H Pulse Rate [ Therapist Rrt ] Respiratory 18 Rate Blood Pressure 104/64 Blood Pressure [Left Arm] O2 Sat by Pulse 96 Oximetry 07/22/23 07/22/23 07/22/23 11:51 12:00 12:09 Temperature 98.7 F Pulse Rate 106 H 108 H Pulse Rate [ 112 H Therapist Rrt ] Respiratory 16 Rate Blood Pressure Blood Pressure 87/58 [Left Arm] O2 Sat by Pulse 96 Oximetry 07/22/23 07/22/23 07/22/23 12:14 15:02 15:06 Temperature 98.7 F Pulse Rate Pulse Rate [ 104 H 114 H 105 H Therapist Rrt ] Respiratory 17 17 Rate Blood Pressure Blood Pressure 88/58 95/61 [Left Arm] O2 Sat by Pulse 97 97 Oximetry 07/22/23 07/22/23 15:15 15:27 Temperature Pulse Rate 98 102 H Pulse Rate [ Therapist Rrt ] Respiratory Rate Blood Pressure Blood Pressure [Left Arm] O2 Sat by Pulse Oximetry Medical Decision Making - Medical Decision Making The patient had chest x-ray which I interpreted as showing no infiltrate or pneumothorax. Cardiomegaly present Was pt. sent in by a medical professional or institution (, PA, [employer] SALESPERSON, urgent care, hospital, or long term...) When possible be specific @ -[No] Did you speak to anyone other than the patient for history (EMS, parent, family, police, friend...)? What history was obtained from this source @ -[No] Did you review nursing and triage notes (agree or disagree)? Why? @ -[I reviewed and agree with nursing and triage notes] Were old charts reviewed (outside hosp., previous admission, EMS record, old EKG, old radiological studies, urgent care reports/EKG's, long term records)? Report findings @ -[No old charts were reviewed] Differential Diagnosis (chest pain, altered mental status, abdominal pain women, abdominal pain men, vaginal bleeding, weakness, fever, dyspnea, syncope, headache, dizziness, GI bleed, back pain, seizure, CVA, palpatations, mental health, musculoskeletal)? @ -Differential Dyspnea: Coronary syndrome, arrhythmia, tamponade, asthma, COPD, pulmonary embolism, pneumonia, pneumothorax, pulmonary effusion, anaphylaxis, diabetic ketoacidosis, flailed chest, pulmonary contusion, diaphragmatic rupture, anemia, neuromuscular, this is not meant to be an all-inclusive list. EKG interpreted by me (3pts min.). @ -[I interpreted as above X-rays interpreted by me (1pt min.). @ -[I interpreted as above CT interpreted by me (1pt min.). @ -[None done] U/S interpreted by me (1pt. min.). @ -[None done] What testing was considered but not performed or refused? (CT, X-rays, U/S, labs)? Why? @ -[None] What meds were considered but not given or refused? Why? @ -[None] Did you discuss the management of the patient with other professionals (professionals i.e. Dr., PA, [employer] SALESPERSON, lab, RT, psych nurse, social media intern, machine package sealer, teacher, business practices officer, correctional case manager)? Give summary @ -[Case discussed with the admitting physician Was smoking cessation discussed for >3mins.? @ -[No] Was critical care preformed (if so, how long)? @ -[Yes 30 minutes Were there social determinants of health that impacted care today? How? (Homelessness, low income, unemployed, alcoholism, drug addiction, transportation, low edu. Level, literacy, decrease access to med. care, prison, rehab)? @ -[No] Was there de-escalation of care discussed even if they declined (Discuss DNR or withdrawal of care, Hospice)? DNR status @ -[No] What co-morbidities impacted this encounter? (DM, HTN, Smoking, COPD, CAD, Cancer, CVA, ARF, Chemo, Hep., AIDS, mental health diagnosis, sleep apnea, morbid obesity)? @ -[COPD, diabetes, hypertension Was patient admitted / discharged? Hospital course, mention meds given and route, prescriptions, significant lab abnormalities, going to OR and other pertinent info. @ -[Patient is 72-year-old woman arriving to have evaluation of dyspnea. There does appear to be contribution from underlying COPD and I suspect some early congestive heart failure contributing as well. The patient's workup does reveal a mildly elevated troponin. The patient be admitted, and she did have second troponin which had increased there. Patient therefore to have cardiology as well as pulmonology consultation Undiagnosed new problem with uncertain prognosis? @ -[No] Drug Therapy requiring intensive monitoring for toxicity (Heparin, Nitro, Insulin, Cardizem)? @ -[Heparin Were any procedures done? @ -[No] Diagnosis/symptom? @ -[Acute dyspnea COPD exacerbation Hyperglycemia NSTEMI Acute, or Chronic, or Acute on Chronic? @ -[Acute Uncomplicated (without systemic symptoms) or Complicated (systemic symptoms)? @ -[Uncomplicated Side effects of treatment? @ -[No] Exacerbation, Progression, or Severe Exacerbation? @ -[No] Poses a threat to life or bodily function? How? (Chest pain, [place], MA, pneumonia, PE, COPD, DKA, ARF, appy, cholecystitis, CVA, Diverticulitis, Homicidal, Suicidal, threat to staff... and all critical care pts) @ -[Yes untreated COPD/NSTEMI can rapidly worsened to respiratory failure/ - Lab Data Result diagrams: 07/25/23 08:00 07/25/23 08:00 Lab Results 07/22/23 07/22/23 07/22/23 Range/Units 03:45 03:45 03:45 WBC 7.8 (3.8-10.6) k/uL RBC 4.79 (3.80-5.40) m/uL Hgb 10.9 L (11.4-16.0) gm/dL Hct 35.3 (34.0-46.0) % MCV 73.7 L (80.0-100.0) fL MCH 22.8 L (25.0-35.0) pg MCHC 30.9 L (31.0-37.0) g/dL RDW 17.2 H (11.5-15.5) % Plt Count 248 (150-450) k/uL MPV 7.8 Neutrophils % 82 % Lymphocytes % 10 % Monocytes % 6 % Eosinophils % 1 % Basophils % 0 % Neutrophils # 6.4 (1.3-7.7) k/uL Lymphocytes # 0.8 L (1.0-4.8) k/uL Monocytes # 0.4 (0-1.0) k/uL Eosinophils # 0.1 (0-0.7) k/uL Basophils # 0.0 (0-0.2) k/uL Hypochromasia Marked Anisocytosis Slight Microcytosis Moderate PT 9.9 (9.0-12.0) sec INR 0.9 (<1.2) APTT 23.6 (22.0-30.0) sec D-Dimer 0.60 H (<0.60) mg/L FEU Sodium 132 L (137-145) mmol/L Potassium 3.9 (3.5-5.1) mmol/L Chloride 95 L (98-107) mmol/L Carbon Dioxide 22 (22-30) mmol/L Anion Gap 15 mmol/L BUN 10 (7-17) mg/dL Creatinine 0.60 (0.52-1.04) mg/dL Est GFR (CKD-EPI)AfAm >90 (>60 ml/min/1.73 sqM) Est GFR (CKD-EPI)NonAf >90 (>60 ml/min/1.73 sqM) Glucose 499 H (74-99) mg/dL Estimated Ave Glu mg/dL mg/dL Hemoglobin A1c (<=6.0) % Lactic Ac Sepsis Rflx Plasma Lactic Acid Angel (0.7-2.0) mmol/L Calcium 8.6 (8.4-10.2) mg/dL Total Bilirubin 0.5 (0.2-1.3) mg/dL AST 18 (14-36) U/L ALT 14 (4-34) U/L Alkaline Phosphatase 88 (38-126) U/L Troponin I (0.000-0.034) ng/mL NT-Pro-B Natriuret Pep 689 pg/mL Total Protein 6.7 (6.3-8.2) g/dL Albumin 3.9 (3.5-5.0) g/dL Triglycerides (0.00-149.00) mg/dL Cholesterol (0.00-200.00) mg/dL LDL Cholesterol, Calc (0.0-131.0) mg/dL VLDL Cholesterol, Calc (5.00-40.00) mg/dL HDL Cholesterol (40.00-60.00) mg/dL Cholesterol/HDL Ratio Ratio TSH (0.465-4.680) mIU/L Coronavirus (PCR) (Not Detectd) 07/22/23 07/22/23 07/22/23 Range/Units 03:45 03:45 03:45 WBC (3.8-10.6) k/uL RBC (3.80-5.40) m/uL Hgb (11.4-16.0) gm/dL Hct (34.0-46.0) % MCV (80.0-100.0) fL MCH (25.0-35.0) pg MCHC (31.0-37.0) g/dL RDW (11.5-15.5) % Plt Count (150-450) k/uL MPV Neutrophils % % Lymphocytes % % Monocytes % % Eosinophils % % Basophils % % Neutrophils # (1.3-7.7) k/uL Lymphocytes # (1.0-4.8) k/uL Monocytes # (0-1.0) k/uL Eosinophils # (0-0.7) k/uL Basophils # (0-0.2) k/uL Hypochromasia Anisocytosis Microcytosis PT (9.0-12.0) sec INR (<1.2) APTT (22.0-30.0) sec D-Dimer (<0.60) mg/L FEU Sodium (137-145) mmol/L Potassium (3.5-5.1) mmol/L Chloride (98-107) mmol/L Carbon Dioxide (22-30) mmol/L Anion Gap mmol/L BUN (7-17) mg/dL Creatinine (0.52-1.04) mg/dL Est GFR (CKD-EPI)AfAm (>60 ml/min/1.73 sqM) Est GFR (CKD-EPI)NonAf (>60 ml/min/1.73 sqM) Glucose (74-99) mg/dL Estimated Ave Glu mg/dL mg/dL Hemoglobin A1c (<=6.0) % Lactic Ac Sepsis Rflx Plasma Lactic Acid Angel 2.6 H* (0.7-2.0) mmol/L Calcium (8.4-10.2) mg/dL Total Bilirubin (0.2-1.3) mg/dL AST (14-36) U/L ALT (4-34) U/L Alkaline Phosphatase (38-126) U/L Troponin I 0.074 H* (0.000-0.034) ng/mL NT-Pro-B Natriuret Pep pg/mL Total Protein (6.3-8.2) g/dL Albumin (3.5-5.0) g/dL Triglycerides (0.00-149.00) mg/dL Cholesterol (0.00-200.00) mg/dL LDL Cholesterol, Calc (0.0-131.0) mg/dL VLDL Cholesterol, Calc (5.00-40.00) mg/dL HDL Cholesterol (40.00-60.00) mg/dL Cholesterol/HDL Ratio Ratio TSH (0.465-4.680) mIU/L Coronavirus (PCR) Not Detected (Not Detectd) 07/22/23 07/22/23 07/22/23 Range/Units 03:45 05:10 06:00 WBC (3.8-10.6) k/uL RBC (3.80-5.40) m/uL Hgb (11.4-16.0) gm/dL Hct (34.0-46.0) % MCV (80.0-100.0) fL MCH (25.0-35.0) pg MCHC (31.0-37.0) g/dL RDW (11.5-15.5) % Plt Count (150-450) k/uL MPV Neutrophils % % Lymphocytes % % Monocytes % % Eosinophils % % Basophils % % Neutrophils # (1.3-7.7) k/uL Lymphocytes # (1.0-4.8) k/uL Monocytes # (0-1.0) k/uL Eosinophils # (0-0.7) k/uL Basophils # (0-0.2) k/uL Hypochromasia Anisocytosis Microcytosis PT (9.0-12.0) sec INR (<1.2) APTT (22.0-30.0) sec D-Dimer (<0.60) mg/L FEU Sodium (137-145) mmol/L Potassium (3.5-5.1) mmol/L Chloride (98-107) mmol/L Carbon Dioxide (22-30) mmol/L Anion Gap mmol/L BUN (7-17) mg/dL Creatinine (0.52-1.04) mg/dL Est GFR (CKD-EPI)AfAm (>60 ml/min/1.73 sqM) Est GFR (CKD-EPI)NonAf (>60 ml/min/1.73 sqM) Glucose (74-99) mg/dL Estimated Ave Glu mg/dL 246 mg/dL Hemoglobin A1c 10.2 H (<=6.0) % Lactic Ac Sepsis Rflx Y Plasma Lactic Acid Angel (0.7-2.0) mmol/L Calcium (8.4-10.2) mg/dL Total Bilirubin (0.2-1.3) mg/dL AST (14-36) U/L ALT (4-34) U/L Alkaline Phosphatase (38-126) U/L Troponin I (0.000-0.034) ng/mL NT-Pro-B Natriuret Pep pg/mL Total Protein (6.3-8.2) g/dL Albumin (3.5-5.0) g/dL Triglycerides 243.00 H (0.00-149.00) mg/dL Cholesterol 152.00 (0.00-200.00) mg/dL LDL Cholesterol, Calc 57.8 (0.0-131.0) mg/dL VLDL Cholesterol, Calc 48.60 H (5.00-40.00) mg/dL HDL Cholesterol 45.60 (40.00-60.00) mg/dL Cholesterol/HDL Ratio 3.33 Ratio TSH 0.899 (0.465-4.680) mIU/L Coronavirus (PCR) (Not Detectd) - EKG Data -: EKG Interpreted by Nh EKG shows normal: axis (Left axis deviation), intervals (QRS duration 157 ms, consistent with left bundle branch block. QTC 437 ms, normal.), QRS complexes (Left Bundle-branch block) Rate: tachycardia (Rate 120 bpm) Interpretation: other (Underlying rhythm is atrial fibrillation) Disposition Clinical Impression: COPD with acute exacerbation, Hyperglycemia, NSTEMI (non-ST elevated myocardial infarction) Disposition: ADMITTED IP TO THIS HOSP Condition: Stable Is patient prescribed a controlled substance at d/c from ED?: No
[2023-07-22 04:50] LABS: Anisocytosis Slight; Basophils % (A) 0 %; Eosinophils # (A) 0.1 k/uL (0-0.7); Eosinophils % (A) 1 %; HCT 35.3 % (34.0-46.0); HGB 10.9 gm/dL (11.4-16.0); Hypochromasia Marked; Lymphocytes # (A) 0.8 k/uL (1.0-4.8); Lymphocytes % (A) 10 %; MCH 22.8 pg (25.0-35.0); MCHC 30.9 g/dL (31.0-37.0); MCV 73.7 fL (80.0-100.0); Mean Platelet Volume 7.8; Microcytosis Moderate; Monocytes # (A) 0.4 k/uL (0-1.0); Monocytes % (A) 6 %; Neutrophils # (A) 6.4 k/uL (1.3-7.7); Neutrophils % (A) 82 %; Platelet Count 248 k/uL (150-450); RBC 4.79 m/uL (3.80-5.40); RDW 17.2 % (11.5-15.5); WBC 7.8 k/uL (3.8-10.6)
[2023-07-22 05:02] LABS: INR 0.9 (<1.2); Partial Thromboplastin Time 23.6 sec (22.0-30.0); Prothrombin Time 9.9 sec (9.0-12.0)
[2023-07-22 05:06] LABS: ALT 14 U/L (4-34); AST 18 U/L (14-36); African American GFR (CKD) >90 (>60 ml/min/1.73 sqM); Albumin 3.9 g/dL (3.5-5.0); Alkaline Phosphatase 88 U/L (38-126); Anion Gap 15 mmol/L; Blood Urea Nitrogen 10 mg/dL (7-17); Calcium 8.6 mg/dL (8.4-10.2); Carbon Dioxide 22 mmol/L (22-30); Chloride 95 mmol/L (98-107); Glucose 499 mg/dL (74-99); Non-African American GFR(CKD) >90 (>60 ml/min/1.73 sqM); Potassium 3.9 mmol/L (3.5-5.1); Sodium 132 mmol/L (137-145); Total Bilirubin 0.5 mg/dL (0.2-1.3); Total Protein 6.7 g/dL (6.3-8.2)
[2023-07-22 05:12] LABS: NT-Pro-B-Type Natriuretic Pept 689 pg/mL
[2023-07-22] MEDS ORDERED: SODIUM CHLORIDE 0.9% 1,000 ML IV ONE (05:53)
[2023-07-22] MEDS ORDERED: INSULIN REGULAR 100 UNIT/ML VIAL (IV) IV STA (05:53)
--- NOTE | 2023-07-22 06:30 | XR ---
EXAMINATION TYPE: XR chest 2V DATE OF EXAM: 07/22/2023 COMPARISON: 06/28/2023 HISTORY: Difficulty breathing TECHNIQUE: Frontal and lateral views of the chest are obtained. FINDINGS: There is a median sternotomy and CABG surgery. There is moderate cardiomegaly unchanged. There is no pulmonary vascular congestion. There is no pleural effusion or pneumothorax. The lungs ar e clear of airspace or interstitial opacity. The osseous structures are intact. IMPRESSION: 1. No acute cardiopulmonary disease. 2. Moderate cardiomegaly which is stable. 3 CABG surgery.
[2023-07-22] MEDS ORDERED: NALOXONE 0.4 MG/ML 1 ML VIAL IVP PRN (06:44)
[2023-07-22] MEDS ORDERED: DEXTROSE 50% SYRINGE 50 ML IVP PRN ×2 (06:47)
[2023-07-22] MEDS ORDERED: ONDANSETRON 4 MG in SODIUM CHLORIDE 0.9% 50 ML IVPB ONE (06:49)
[2023-07-22] MEDS ORDERED: MORPHINE SULFATE 4 MG/ML SYRINGE IVP STA (06:49)
[2023-07-22] MEDS ORDERED: ONDANSETRON 4 MG/2 ML VIAL IVP STA (06:52)
[2023-07-22] MEDS ORDERED: ONDANSETRON 4 MG/2 ML VIAL IVP ONE (07:00)
[2023-07-22 07:38] LABS: Glucose,Whole Blood 288 mg/dL (70-110)
--- NOTE | 2023-07-22 07:49 | CT ---
EXAMINATION TYPE: CT abdomen pelvis wo con DATE OF EXAM: 07/22/2023 COMPARISON: 07/19/2021 HISTORY: Acute epigastric pain CT DLP: 850.1 mGycm Automated exposure control for dose reduction was used. TECHNIQUE: Helical acquisition of images was performed from the lung bases through the pelvis. FINDINGS: Lung bases are clear. There are surgical absence of the gallbladder and no biliary ductal dilatation. There is no organomegaly involving the solid visceral organs of the upper abdomen. There is no hydronephrosis or renal calcification. The bowel loops are normal in caliber and there is no obstruction. No inflammatory changes are identified in the mesentery and there is no free intrape ritoneal air or fluid. The caliber the abdominal aorta is normal is no retroperitoneal adenopathy or hemorrhage. There is an enlarged uterus with calcified pedunculated fibroid which was seen previously. There is n o pelvic adenopathy or free fluid. The osseous structures are intact. IMPRESSION: 1. No acute changes within the abdomen or pelvis. 2. Uterine fibroids which are stable. 3. Cholecystectomy.
[2023-07-22 08:03] LABS: Amylase 42 U/L (30-110); Lipase 88 U/L (23-300)
[2023-07-22] MEDS: IPRATROPIUM-ALBUTEROL 3 ML NEB INHALATION SCH ×4 (08:07→21:32)
[2023-07-22] MEDS ORDERED: ATORVASTATIN 80 MG TAB PO STA (09:51)
[2023-07-22] MEDS: CLOPIDOGREL 75 MG TAB PO SCH (10:10)
[2023-07-22] MEDS: ASPIRIN 81 MG PO SCH (10:10)
[2023-07-22] MEDS ORDERED: ALBUTEROL NEBULIZED 2.5 MG/3 ML INHALATION PRN (12:24)
[2023-07-22] MEDS ORDERED: CLOPIDOGREL 75 MG TAB PO SCH (12:30)
[2023-07-22 12:33] LABS: Glucose,Whole Blood 393 mg/dL (70-110)
[2023-07-22] MEDS ORDERED: HEPARIN SODIUM 1,000 UN/ML (10ML VL) IV ONE (12:33)
[2023-07-22] MEDS ORDERED: HEPARIN SODIUM 1,000 UN/ML (10ML VL) IV PRN (12:33)
--- NOTE | 2023-07-22 12:38 | P.HPIM ---
History of Present Illness H&P Date: 07/22/23 Mari Moore, is a 72-year-old female who presented to [facility] emergency room with a chief complaint of worsening shortness of breath and cough. She was evaluated in the emergency room vital examination on presentation revealed a temperature of 98.1 pulse 122 respiration 41 blood pressure 131/68 pulse ox 99% on room air Laboratory data reveals a white blood count of 7.8 hemoglobin 10.9 platelet count 248 d-dimer 0.6 lactic acid 2.6 sodium 132 potassium 3.9 chloride 95 CO2 22 BUN 10 creatinine 0.6 troponin level 0.074 Testing in the emergency room revealed chest x-ray done in the emergency room revealed no acute cardiopulmonary disease, moderate cardiomegaly, EKG done in the emergency room revealed atrial fibrillation with rapid ventricular response, computed tomography scan of the abdomen and pelvis was done in the emergency room and revealed no acute findings. Patient was admitted to medical floor for further evaluation and treatment Past medical history is significant for history of hypertension, history of hyperlipidemia, history of diabetes mellitus history of coronary artery disease with previous history of angioplasty and stent placement, also history of coronary artery bypass graft surgery in 2019 , history of ischemic cardiomyopathy, history of COPD, history of asthma, history of morbid obesity, history tobacco abuse and drug abuse, and history of poor compliance with medical treatment On review of systems patient is alert and oriented 3 in no apparent distress, she is complaining of shortness of breath and cough otherwise she denies any complaints, there is no fever or chills no headache or dizziness no chest pain no nausea or vomiting no abdominal pain no diarrhea no blood in the stools no burning with urination no frequency or urgency no hematuria. 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 Poly substance abuse 07/19/21 admitted for Acute delirium History of Any Multi-Drug Resistant Organisms: None Reported Past Surgical History: Cholecystectomy, Coronary Bypass/CABG, Hernia Repair, Orthopedic Surgery, Tonsillectomy, Tubal Ligation Additional Past Surgical History / Comment(s): LEFT KNEE ARTHROSCOPY, BMT AND MYRINGOPLASTY, umbilical hernia repair, CABG 2020 Past Anesthesia/Blood Transfusion Reactions: No Reported Reaction Additional Past Anesthesia/Blood Transfusion Reaction / Comment(s): STATES AFTER LAST EAR SX (11/2013) HAD SORE MUSCLES AND WAS WEAK FOR 3-4 DAYS Past Psychological History: Unable to Obtain Smoking Status: Former smoker Past Alcohol Use History: None Reported Past Drug Use History: None Reported, Marijuana - Past Family History Sister(s) Family Medical History: Cancer Brother(s) Family Medical History: Cancer Additional Family Medical History / Comment(s): brother had heart valve replacement Mother Family Medical History: Chest Pain / Angina, Diabetes Mellitus, Hypertension Father History Unknown: Yes Additional Family Medical History / Comment(s): , "had bad lungs" per patient, was a smoker Medications and Allergies Home Medications Medication Instructions Recorded Confirmed Type RX: traMADol HCl [Ultram] 50 mg PO TID PRN 11/04/15 07/22/23 History RX: traZODone HCL [Desyrel] 50 mg PO HS PRN 06/11/23 07/22/23 History Insulin Glargine/Lixisenatide 30 units SQ DAILY 30 Days #1 pen 07/01/23 07/22/23 Rx [Soliqua 100 Unit-33 Mcg/ml Pen] RX: Aspirin 81 mg PO DAILY tab 07/01/23 07/22/23 Rx RX: Atorvastatin [Lipitor] 40 mg PO DAILY tab 07/01/23 07/22/23 Rx RX: Clopidogrel [Plavix] 75 mg PO DAILY tab 07/01/23 07/22/23 Rx RX: Metoprolol Succinate (ER) 25 mg PO DAILY tab 07/01/23 07/22/23 Rx [Toprol XL] RX: lisinopriL [Zestril] 2.5 mg PO DAILY tab 07/01/23 07/22/23 Rx RX: predniSONE [Deltasone] 40 mg PO DAILY tab 07/01/23 07/22/23 Rx Ipratropium-Albuterol Nebulize 3 ml INHALATION RT-QID 07/22/23 07/22/23 History [Duoneb 0.5 mg-3 mg/3 ml Soln] RX: Albuterol Nebulized [Ventolin 2.5 mg INHALATION RT-Q4H PRN 07/22/23 07/22/23 History Nebulized] Allergies Allergy/AdvReac Type Severity Reaction Status Date / Time cephalexin Allergy Anaphylaxis Verified 07/22/23 10:51 cephalexin monohydrate Allergy Anaphylaxis Verified 07/22/23 10:51 [From Keflex] Sulfa (Sulfonamide Allergy Rash/Hives Verified 07/22/23 10:51 Antibiotics) Physical Exam Vitals: Vital Signs Temp Pulse Pulse Resp BP BP Pulse Ox 07/22/23 12:09 98.7 F 112 H 16 87/58 96 07/22/23 12:00 108 H 07/22/23 11:51 106 H 07/22/23 10:11 97.8 F 106 H 18 104/64 96 07/22/23 08:18 99 07/22/23 08:08 98 07/22/23 07:41 108 H 20 119/74 98 07/22/23 06:17 106 H 16 102/68 97 07/22/23 04:40 116 H 18 117/78 96 07/22/23 04:16 56 L 07/22/23 04:02 54 L 07/22/23 03:10 111 H 19 116/79 97 07/22/23 02:50 116 H 18 128/88 95 07/22/23 02:40 113 H 16 128/88 98 07/22/23 02:19 98.1 F 122 H 41 H 131/68 99 Intake and Output 07/21/23 07/22/23 07/22/23 22:59 06:59 14:59 Other: Weight 89.811 kg In general patient is alert and oriented x 3 in no distress HEENT head normocephalic and atraumatic Neck is supple no JVD no goiter no lymphadenopathy no carotid bruit Chest examination reveals a crackles in both lung powers with wheezing Cardiac exam reveals irregular heart sounds S1 and S2 with tachycardia no gallops no murmurs Abdomen is soft nontender no organomegaly with normal bowel sounds Extremity exam reveals no edema no cyanosis or clubbing Neurological examination reveals no gross focal deficits Results CBC & Chem 7: 07/22/23 03:45 07/22/23 03:45 Labs: Abnormal Lab Results - Last 24 Hours (Table) 07/22/23 07/22/23 07/22/23 Range/Units 03:45 03:45 03:45 Hgb 10.9 L (11.4-16.0) gm/dL MCV 73.7 L (80.0-100.0) fL MCH 22.8 L (25.0-35.0) pg MCHC 30.9 L (31.0-37.0) g/dL RDW 17.2 H (11.5-15.5) % Lymphocytes # 0.8 L (1.0-4.8) k/uL D-Dimer 0.60 H (<0.60) mg/L FEU Sodium 132 L (137-145) mmol/L Chloride 95 L (98-107) mmol/L Glucose 499 H (74-99) mg/dL POC Glucose (mg/dL) (70-110) mg/dL Plasma Lactic Acid Angel (0.7-2.0) mmol/L Troponin I (0.000-0.034) ng/mL 07/22/23 07/22/23 07/22/23 Range/Units 03:45 03:45 07:36 Hgb (11.4-16.0) gm/dL MCV (80.0-100.0) fL MCH (25.0-35.0) pg MCHC (31.0-37.0) g/dL RDW (11.5-15.5) % Lymphocytes # (1.0-4.8) k/uL D-Dimer (<0.60) mg/L FEU Sodium (137-145) mmol/L Chloride (98-107) mmol/L Glucose (74-99) mg/dL POC Glucose (mg/dL) 288 H (70-110) mg/dL Plasma Lactic Acid Angel 2.6 H* (0.7-2.0) mmol/L Troponin I 0.074 H* (0.000-0.034) ng/mL 07/22/23 Range/Units 07:38 Hgb (11.4-16.0) gm/dL MCV (80.0-100.0) fL MCH (25.0-35.0) pg MCHC (31.0-37.0) g/dL RDW (11.5-15.5) % Lymphocytes # (1.0-4.8) k/uL D-Dimer (<0.60) mg/L FEU Sodium (137-145) mmol/L Chloride (98-107) mmol/L Glucose (74-99) mg/dL POC Glucose (mg/dL) (70-110) mg/dL Plasma Lactic Acid Angel (0.7-2.0) mmol/L Troponin I 0.587 H* (0.000-0.034) ng/mL Assessment and Plan Plan: Atrial fibrillation with rapid ventricular response Elevated troponin level possible acute GA Lactic acidosis Hypotension with blood pressure at 87/58 at this time Acute exacerbation of chronic obstructive pulmonary disease Underlying history of coronary artery disease with previous history of angiopla sty and stent placement and previous history of coronary artery bypass graft surgery Underlying history of hypertension Underlying history of hyperlipidemia Underlying history of insulin-dependent diabetes mellitus Previous history of tobacco and drug use At this time patient will be admitted to telemetry floor She was started on IV heparin She was also started on IV Solu-Medrol and inhaled bronchodilators She was started on gentle hydration due to hypotension Blood culture and urine analysis and urine culture ordered Cardiology consultation and pulmonary consultation requested Will recheck labs in a.m. Will follow closely
[2023-07-22] MEDS: INSULIN ASPART (NovoLOG) 100 UNIT/ML VIAL SQ SCH ×3 (12:39→21:35)
[2023-07-22] MEDS ORDERED: HEPARIN SOD,PORK IN 0.45% NACL 25,000 UNIT in 0.45% NACL 1 250ML.BAG IV SCH (12:45)
[2023-07-22] MEDS: METOPROLOL SUCCINATE (ER) 25 MG TAB.ER.24H PO SCH (13:03)
[2023-07-22] MEDS: INSULIN DETEMIR (LEVEMIR) 100 UNIT/ML SYR SQ SCH (13:04)
[2023-07-22 13:05] LABS: Anisocytosis Slight; Basophils % (A) 0 %; Eosinophils # (A) 0.2 k/uL (0-0.7); Eosinophils % (A) 4 %; HCT 30.7 % (34.0-46.0); HGB 9.7 gm/dL (11.4-16.0); Hypochromasia Moderate; Lymphocytes # (A) 1.2 k/uL (1.0-4.8); Lymphocytes % (A) 28 %; MCH 22.9 pg (25.0-35.0); MCHC 31.5 g/dL (31.0-37.0); MCV 72.7 fL (80.0-100.0); Mean Platelet Volume 8.5; Microcytosis Moderate; Monocytes # (A) 0.3 k/uL (0-1.0); Monocytes % (A) 7 %; Neutrophils # (A) 2.6 k/uL (1.3-7.7); Neutrophils % (A) 59 %; Platelet Count 243 k/uL (150-450); RBC 4.23 m/uL (3.80-5.40); RDW 17.2 % (11.5-15.5); WBC 4.3 k/uL (3.8-10.6)
[2023-07-22 13:23] LABS: Partial Thromboplastin Time 24.4 sec (22.0-30.0); Prothrombin Time 10.3 sec (9.0-12.0)
[2023-07-22] MEDS: SODIUM CHLORIDE 0.9% 1,000 ML IV SCH (13:46)
[2023-07-22 14:29] LABS: Appearance,Urine Clear (Clear); Bilirubin,Urine Negative (Negative); Blood,Urine Negative (Negative); Color,Urine Yellow; Glucose,Urine (UA) 4+ (Negative); Ketones,Urine Negative (Negative); Leukocyte Esterase,Urine Negative (Negative); Nitrite,Urine Negative (Negative); PH, Urine 5.5 (5.0-8.0); Protein,Urine Negative (Negative); Specific Gravity,Urine 1.015 (1.001-1.035); Urobilinogen,Urine <2.0 mg/dL (<2.0)
--- NOTE | 2023-07-22 14:43 | P.CRDCN ---
History of Present Illness Consult date: 07/22/23 Consult reason: congestive heart failure History of present illness: The patient is a 72-year-old female who has previously seen Dr. Hull and pres ented to the emergency room with generalized complaints. She does have an extensive cardiac history and cardiology was consulted for mildly elevated troponins and congestive heart failure. The patient states she is more short of breath, weak and fatigued over the last week. The patient did have a recent hospital admission on June 28. DIAGNOSTICS: EKG shows sinus tachycardia with left bundle branch block Chest x-ray shows no acute cardiopulmonary process with moderate cardiomegaly Echocardiogram on July 01 shows LV function at 30-35% with severely reduced global systolic function and mild inferior hypokinesia. Mild to moderate mitral regurgitation with MAC. Lab data: WBC 4.3, hemoglobin 9.7, hematocrit 30.7, platelet 243, d-dimer 0.6, sodium 132, potassium 3.9, BUN 15, creatinine 0.6, lactic acid 2.6, 2.0, TSH 0.89, BNP 689, troponins 0.07, 0.58 PAST MEDICAL HISTORY: COPD, asthma, hypertension, hyperlipidemia, type II diabetic, former smoker, obesity, coronary artery disease status post CABG and PCI to distal PDA in November 2022 REVIEW OF SYSTEMS: No fever or chills. No cough or expectoration. No diaphoresis. Patient denies headache, dizziness, blurred vision, double vision. Patient denies any stomach discomfort. No nausea, vomiting. No hematochezia. No hematemesis. Denies any black stools or blood in his stools. Denies dysuria or hematuria. No muscle weakness or numbness. Positive for shortness of breath. Denies chest pain or chest pressure. PHYSICAL EXAMINATION: This is a 72-year-old obese female in no apparent distress at the time of my examination. HEENT: Head is atraumatic, normocephalic. Pupils are equal, round. There is no jugular venous distention. No carotid bruit is heard. CHEST EXAMINATION: Lungs are diminished to auscultation. No chest wall tenderness is noted on palpation or with deep breathing. Bilateral inspiratory and expiratory wheezes HEART EXAMINATION: Heart regular rate and rhythm. S1, S2 heard. No murmurs, gallops or rub. ABDOMEN: Soft, nontender. Bowel sounds are heard. No organomegaly noted. EXTREMITIES: 2+ peripheral pulses with no evidence of peripheral edema and no calf tenderness noted. NEUROLOGIC EXAMINATION: Patient is awake, alert and oriented x3. FINAL ASSESSMENT AND PLAN: Shortness of breath, COPD exacerbation Acute hypoxic respiratory failure Coronary artery disease Ischemic cardiomyopathy Central hypertension Type 2 diabetes, uncontrolled Former smoker Obesity PLAN: Increase atorvastatin 80 mg Continue dual antiplatelet therapy Hold lisinopril for hypotension No need for repeat echocardiogram and she had one completed last month Further recommendations to be based on clinical course I am dictating on behalf of Dr Ravin Prieto's history/physical and assessment/plan. 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 Poly substance abuse 07/19/21 admitted for Acute delirium History of Any Multi-Drug Resistant Organisms: None Reported Past Surgical History: Cholecystectomy, Coronary Bypass/CABG, Hernia Repair, Orthopedic Surgery, Tonsillectomy, Tubal Ligation Additional Past Surgical History / Comment(s): LEFT KNEE ARTHROSCOPY, BMT AND MYRINGOPLASTY, umbilical hernia repair, CABG 2020 Past Anesthesia/Blood Transfusion Reactions: No Reported Reaction Additional Past Anesthesia/Blood Transfusion Reaction / Comment(s): STATES AFTER LAST EAR SX (11/2013) HAD SORE MUSCLES AND WAS WEAK FOR 3-4 DAYS Past Psychological History: Unable to Obtain Smoking Status: Former smoker Past Alcohol Use History: None Reported Past Drug Use History: None Reported, Marijuana - Past Family History Sister(s) Family Medical History: Cancer Brother(s) Family Medical History: Cancer Additional Family Medical History / Comment(s): brother had heart valve replacement Mother Family Medical History: Chest Pain / Angina, Diabetes Mellitus, Hypertension Father History Unknown: Yes Additional Family Medical History / Comment(s): , "had bad lungs" per patient, was a smoker Medications and Allergies Home Medications Medication Instructions Recorded Confirmed Type traMADol HCl [Ultram] 50 mg PO TID PRN 11/04/15 07/22/23 History traZODone HCL [Desyrel] 50 mg PO HS PRN 06/11/23 07/22/23 History Aspirin 81 mg PO DAILY tab 07/01/23 07/22/23 Rx Atorvastatin [Lipitor] 40 mg PO DAILY tab 07/01/23 07/22/23 Rx Clopidogrel [Plavix] 75 mg PO DAILY tab 07/01/23 07/22/23 Rx Insulin Glargine/Lixisenatide 30 units SQ DAILY 30 Days #1 pen 07/01/23 07/22/23 Rx [Soliqua 100 Unit-33 Mcg/ml Pen] Metoprolol Succinate (ER) [Toprol 25 mg PO DAILY tab 07/01/23 07/22/23 Rx XL] lisinopriL [Zestril] 2.5 mg PO DAILY tab 07/01/23 07/22/23 Rx predniSONE [Deltasone] 40 mg PO DAILY tab 07/01/23 07/22/23 Rx Albuterol Nebulized [Ventolin 2.5 mg INHALATION RT-Q4H PRN 07/22/23 07/22/23 History Nebulized] Ipratropium-Albuterol Nebulize 3 ml INHALATION RT-QID 07/22/23 07/22/23 History [Duoneb 0.5 mg-3 mg/3 ml Soln] Allergies Allergy/AdvReac Type Severity Reaction Status Date / Time cephalexin Allergy Anaphylaxis Verified 07/22/23 10:51 cephalexin monohydrate Allergy Anaphylaxis Verified 07/22/23 10:51 [From Keflex] Sulfa (Sulfonamide Allergy Rash/Hives Verified 07/22/23 10:51 Antibiotics) Physical Exam Vitals: Vital Signs Temp Pulse Pulse Resp BP BP Pulse Ox 07/22/23 12:14 98.7 F 104 H 17 88/58 97 07/22/23 12:09 98.7 F 112 H 16 87/58 96 07/22/23 12:00 108 H 07/22/23 11:51 106 H 07/22/23 10:11 97.8 F 106 H 18 104/64 96 07/22/23 08:18 99 07/22/23 08:08 98 07/22/23 07:41 108 H 20 119/74 98 07/22/23 06:17 106 H 16 102/68 97 07/22/23 04:40 116 H 18 117/78 96 07/22/23 04:16 56 L 07/22/23 04:02 54 L 07/22/23 03:10 111 H 19 116/79 97 07/22/23 02:50 116 H 18 128/88 95 07/22/23 02:40 113 H 16 128/88 98 07/22/23 02:19 98.1 F 122 H 41 H 131/68 99 Intake and Output 07/21/23 07/22/23 07/22/23 22:59 06:59 14:59 Other: Weight 89.811 kg 89.811 kg Results 07/22/23 12:42 07/22/23 03:45 Cardiac Enzymes 07/22/23 07/22/23 07/22/23 Range/Units 03:45 03:45 07:38 AST 18 (14-36) U/L Troponin I 0.074 H* 0.587 H* (0.000-0.034) ng/mL Coagulation 07/22/23 07/22/23 Range/Units 03:45 12:42 PT 9.9 10.3 (9.0-12.0) sec APTT 23.6 24.4 (22.0-30.0) sec CBC 07/22/23 07/22/23 Range/Units 03:45 12:42 WBC 7.8 4.3 (3.8-10.6) k/uL RBC 4.79 4.23 (3.80-5.40) m/uL Hgb 10.9 L 9.7 L (11.4-16.0) gm/dL Hct 35.3 30.7 L (34.0-46.0) % Plt Count 248 243 (150-450) k/uL Comprehensive Metabolic Panel 07/22/23 Range/Units 03:45 Sodium 132 L (137-145) mmol/L Potassium 3.9 (3.5-5.1) mmol/L Chloride 95 L (98-107) mmol/L Carbon Dioxide 22 (22-30) mmol/L BUN 10 (7-17) mg/dL Creatinine 0.60 (0.52-1.04) mg/dL Glucose 499 H (74-99) mg/dL Calcium 8.6 (8.4-10.2) mg/dL AST 18 (14-36) U/L ALT 14 (4-34) U/L Alkaline Phosphatase 88 (38-126) U/L Total Protein 6.7 (6.3-8.2) g/dL Albumin 3.9 (3.5-5.0) g/dL Current Medications Generic Name Dose Route Start Last Admin Trade Name Freq PRN Reason Stop Dose Admin Albuterol Sulfate 2.5 mg 07/22/23 12:24 Albuterol Nebulized 2.5 Mg/3 Ml INHALATION RT-Q4H PRN Shortness Of Breath Albuterol/Ipratropium 3 ml 07/22/23 16:00 Ipratropium-Albuterol 3 Ml Neb INHALATION RT-QID DIMA Aspirin 81 mg 07/22/23 10:00 07/22/23 10:10 Aspirin 81 Mg PO 81 mg DAILY DIMA Administration Atorvastatin Calcium 40 mg 07/23/23 09:00 Atorvastatin 40 Mg Tab PO DAILY DIM[facility] Clopidogrel Bisulfate 75 mg 07/22/23 10:00 07/22/23 10:10 Clopidogrel 75 Mg Tab PO 75 mg DAILY DIMA Administration Dextrose/Water 25 ml 07/22/23 06:47 Dextrose 50% Syringe 50 Ml IVP PER PROTOCOL PRN Hypoglycemia Protocol Dextrose/Water 50 ml 07/22/23 06:47 Dextrose 50% Syringe 50 Ml IVP PER PROTOCOL PRN Hypoglycemia Protocol Heparin Sodium (Porcine) 0 unit 07/22/23 12:33 Heparin Sodium 1,000 Un/Ml (10ml Vl) IV PER PROTOCOL PRN Low PTT Protocol Heparin Sodium/Sodium Chloride 250 mls @ 10.104 mls/hr 07/22/23 12:45 07/22/23 13:47 25,000 unit/ Sodium Chloride IV 11.25 units/kg/hr .Q24H DIMA 10.104 mls/hr Administration Protocol 11.25 UNITS/KG/HR Sodium Chloride 1,000 mls @ 75 mls/hr 07/22/23 12:45 07/22/23 13:46 Saline 0.9% IV 75 mls/hr .[id number] DIMA Administration Insulin Aspart 0 unit 07/22/23 12:30 07/22/23 12:39 Insulin Aspart (Novolog) 100 Unit/Ml Vial SQ 10 unit ACHS DIMA Administration Protocol Insulin Detemir 30 unit 07/22/23 12:30 07/22/23 13:04 Insulin Detemir (Levemir) 100 Unit/Ml Syr SQ 30 unit DAILY [facility] Administration Lisinopril 2.5 mg 07/22/23 12:30 07/22/23 13:03 Lisinopril 2.5 Mg Tab PO Not Given DAILY [facility] Methylprednisolone Sodium Succinate 40 mg 07/22/23 16:00 Methylprednisolone Sod Succi 40 Mg/Ml 1 Ml Vial IV Q8HR [facility] Metoprolol Succinate 25 mg 07/22/23 12:30 07/22/23 13:03 Metoprolol Succinate (Er) 25 Mg Tab.Er.24h PO Not Given DAILY [facility] Naloxone HCl 0.2 mg 07/22/23 06:44 Naloxone 0.4 Mg/Ml 1 Ml Vial IVP Q2M PRN Opioid Reversal Tramadol HCl 50 mg 07/22/23 12:24 Tramadol 50 Mg Tab PO TID PRN Pain Trazodone HCl 50 mg 07/22/23 12:24 Trazodone Hcl 50 Mg Tab PO HS PRN Insomnia Intake and Output 07/21/23 07/22/23 07/22/23 22:59 06:59 14:59 Other: Weight 89.811 kg 89.811 kg Patient Weight 07/23/23 06:59 Weight 89.811 kg 07/22/23 12:42 07/22/23 03:45
[2023-07-22 16:49] LABS: Glucose,Whole Blood 294 mg/dL (70-110)
[2023-07-22] MEDS: methylPREDNISolone SOD SUCCI 40 MG/ML 1 ML VIAL IV SCH (16:56)
[2023-07-22 19:33] LABS: Glucose,Whole Blood 315 mg/dL (70-110)
[2023-07-22] MEDS: traZODone HCL 50 MG TAB PO PRN (21:35)
[2023-07-22] MEDS: traMADol 50 MG TAB PO PRN (21:35)
[2023-07-23] MEDS: methylPREDNISolone SOD SUCCI 40 MG/ML 1 ML VIAL IV SCH ×2 (00:40→09:06)
[2023-07-23 05:00] LABS: Anisocytosis Slight; Basophils % (A) 0 %; Eosinophils % (A) 0 %; HCT 34.7 % (34.0-46.0); Hypochromasia Marked; Lymphocytes # (A) 0.6 k/uL (1.0-4.8); Lymphocytes % (A) 12 %; MCH 23.1 pg (25.0-35.0); MCHC 31.5 g/dL (31.0-37.0); MCV 73.3 fL (80.0-100.0); Mean Platelet Volume 7.7; Microcytosis Moderate; Monocytes # (A) 0.1 k/uL (0-1.0); Monocytes % (A) 2 %; Neutrophils % (A) 86 %; Platelet Count 242 k/uL (150-450); RBC 4.74 m/uL (3.80-5.40); RDW 17.2 % (11.5-15.5); WBC 4.7 k/uL (3.8-10.6)
[2023-07-23] MEDS: SODIUM CHLORIDE 0.9% 1,000 ML IV SCH (05:02)
[2023-07-23 05:24] LABS: ALT 16 U/L (4-34); AST 16 U/L (14-36); African American GFR (CKD) >90 (>60 ml/min/1.73 sqM); Albumin 3.7 g/dL (3.5-5.0); Alkaline Phosphatase 103 U/L (38-126); Anion Gap 9 mmol/L; Blood Urea Nitrogen 11 mg/dL (7-17); Calcium 8.9 mg/dL (8.4-10.2); Carbon Dioxide 24 mmol/L (22-30); Chloride 101 mmol/L (98-107); Glucose 352 mg/dL (74-99); Non-African American GFR(CKD) >90 (>60 ml/min/1.73 sqM); Potassium 4.8 mmol/L (3.5-5.1); Sodium 134 mmol/L (137-145); Total Bilirubin 0.4 mg/dL (0.2-1.3); Total Protein 6.4 g/dL (6.3-8.2)
[2023-07-23 05:48] LABS: Prothrombin Time 10.4 sec (9.0-12.0)
[2023-07-23 06:05] LABS: Glucose,Whole Blood 391 mg/dL (70-110)
[2023-07-23] MEDS: INSULIN ASPART (NovoLOG) 100 UNIT/ML VIAL SQ SCH ×4 (06:52→21:02)
[2023-07-23] MEDS: traMADol 50 MG TAB PO PRN (06:53)
[2023-07-23 07:23] LABS: Chol/HDL Ratio 3.33 Ratio; LDL Cholesterol,Calculated 57.8 mg/dL (0.0-131.0)
--- NOTE | 2023-07-23 08:09 | P.PN ---
Subjective Progress Note Date: 07/23/23 Mari Moore, is a 72-year-old female who presented to [facility] emergency room with a chief complaint of worsening shortness of breath and cough. She was evaluated in the emergency room vital examination on presentation revealed a temperature of 98.1 pulse 122 respiration 41 blood pressure 131/68 pulse ox 99% on room air Laboratory data reveals a white blood count of 7.8 hemoglobin 10.9 platelet count 248 d-dimer 0.6 lactic acid 2.6 sodium 132 potassium 3.9 chloride 95 CO2 22 BUN 10 creatinine 0.6 troponin level 0.074 Testing in the emergency room revealed chest x-ray done in the emergency room revealed no acute cardiopulmonary disease, moderate cardiomegaly, EKG done in the emergency room revealed atrial fibrillation with rapid ventricular response, computed tomography scan of the abdomen and pelvis was done in the emergency room and revealed no acute findings. Patient was admitted to medical floor for further evaluation and treatment Past medical history is significant for history of hypertension, history of hyperlipidemia, history of diabetes mellitus history of coronary artery disease with previous history of angioplasty and stent placement, also history of cor onary artery bypass graft surgery in 2019 , history of ischemic cardiomyopathy, history of COPD, history of asthma, history of morbid obesity, history tobacco abuse and drug abuse, and history of poor compliance with medical treatment On review of systems patient is alert and oriented 3 in no apparent distress, she is complaining of shortness of breath and cough otherwise she denies any complaints, there is no fever or chills no headache or dizziness no chest pain no nausea or vomiting no abdominal pain no diarrhea no blood in the stools no burning with urination no frequency or urgency no hematuria. On 07/23/2023 patient was seen and examined on the telemetry floor she is alert and oriented 3 in no apparent distress she stated she is feeling better, there is improvement in her shortness of breath and cough and otherwise she denies any complaints there is no fever or chills no headache or dizziness no chest pain no nausea or vomiting no abdominal pain no diarrhea and no urinary symptoms. Objective - Vital Signs Vital signs: Vital Signs Temp 97.9 F 07/23/23 04:00 Pulse 100 07/23/23 04:00 Resp 18 07/23/23 04:00 BP 99/65 07/23/23 04:00 Pulse Ox 95 07/23/23 04:00 FiO2 Intake & Output 07/22/23 07/23/23 07/23/23 18:59 06:59 18:59 Intake Total 1165.158 Output Total 300 Balance -300 1165.158 Weight 89.811 kg Intake: IV 20 Invasive Line 1 20 Intake, IV Titration 380.158 Amount Heparin Sod,Pork in 0.45% 80.158 NaCl 25,000 unit In 0.45 % NaCl 1 250ml.bag @ 11. 25 UNITS/KG/HR 10.104 mls /hr IV .Q24H [facility] Rx#: [id number] Sodium Chloride 0.9% 1, 300 000 ml @ 75 mls/hr IV . [id number] [facility] Rx#:[id number] Oral 765 Output: Urine 300 Other: # Voids 1 1 1 - Exam In general patient is alert and oriented x 3 in no distress HEENT head normocephalic and atraumatic Neck is supple no JVD no goiter no lymphadenopathy no carotid bruit Chest examination reveals a crackles in both lung powers with wheezing Cardiac exam reveals irregular heart sounds S1 and S2 with tachycardia no gallops no murmurs Abdomen is soft nontender no organomegaly with normal bowel sounds Extremity exam reveals no edema no cyanosis or clubbing Neurological examination reveals no gross focal deficits - Labs CBC & Chem 7: 07/23/23 04:13 07/23/23 04:13 Labs: Abnormal Lab Results - Last 24 Hours (Table) 07/22/23 07/22/23 07/22/23 Range/Units 03:45 07:36 07:38 Hgb (11.4-16.0) gm/dL Hct (34.0-46.0) % MCV (80.0-100.0) fL MCH (25.0-35.0) pg RDW (11.5-15.5) % Lymphocytes # (1.0-4.8) k/uL Sodium (137-145) mmol/L Creatinine (0.52-1.04) mg/dL Glucose (74-99) mg/dL POC Glucose (mg/dL) 288 H (70-110) mg/dL Troponin I 0.587 H* (0.000-0.034) ng/mL Triglycerides 243.00 H (0.00-149.00) mg/dL VLDL Cholesterol, Calc 48.60 H (5.00-40.00) mg/dL Urine Glucose (UA) (Negative) 07/22/23 07/22/23 07/22/23 Range/Units 12:27 12:42 13:30 Hgb 9.7 L (11.4-16.0) gm/dL Hct 30.7 L (34.0-46.0) % MCV 72.7 L (80.0-100.0) fL MCH 22.9 L (25.0-35.0) pg RDW 17.2 H (11.5-15.5) % Lymphocytes # (1.0-4.8) k/uL Sodium (137-145) mmol/L Creatinine (0.52-1.04) mg/dL Glucose (74-99) mg/dL POC Glucose (mg/dL) 393 H (70-110) mg/dL Troponin I (0.000-0.034) ng/mL Triglycerides (0.00-149.00) mg/dL VLDL Cholesterol, Calc (5.00-40.00) mg/dL Urine Glucose (UA) 4+ H (Negative) 07/22/23 07/22/23 07/23/23 Range/Units 16:48 19:32 04:13 Hgb 11.0 L (11.4-16.0) gm/dL Hct (34.0-46.0) % MCV 73.3 L (80.0-100.0) fL MCH 23.1 L (25.0-35.0) pg RDW 17.2 H (11.5-15.5) % Lymphocytes # 0.6 L (1.0-4.8) k/uL Sodium (137-145) mmol/L Creatinine (0.52-1.04) mg/dL Glucose (74-99) mg/dL POC Glucose (mg/dL) 294 H 315 H (70-110) mg/dL Troponin I (0.000-0.034) ng/mL Triglycerides (0.00-149.00) mg/dL VLDL Cholesterol, Calc (5.00-40.00) mg/dL Urine Glucose (UA) (Negative) 07/23/23 07/23/23 Range/Units 04:13 06:03 Hgb (11.4-16.0) gm/dL Hct (34.0-46.0) % MCV (80.0-100.0) fL MCH (25.0-35.0) pg RDW (11.5-15.5) % Lymphocytes # (1.0-4.8) k/uL Sodium 134 L (137-145) mmol/L Creatinine 0.47 L (0.52-1.04) mg/dL Glucose 352 H (74-99) mg/dL POC Glucose (mg/dL) 391 H (70-110) mg/dL Troponin I (0.000-0.034) ng/mL Triglycerides (0.00-149.00) mg/dL VLDL Cholesterol, Calc (5.00-40.00) mg/dL Urine Glucose (UA) (Negative) Assessment and Plan Plan: Atrial fibrillation with rapid ventricular response Elevated troponin level possible acute IL Lactic acidosis Hypotension with blood pressure at 87/58 at this time Acute exacerbation of chronic obstructive pulmonary disease Underlying history of coronary artery disease with previous history of angioplasty and stent placement and previous history of coronary artery bypass graft surgery Underlying history of hypertension Underlying history of hyperlipidemia Underlying history of insulin-dependent diabetes mellitus Previous history of tobacco and drug use At this time patient will be admitted to telemetry floor She was started on IV heparin She was also started on IV Solu-Medrol and inhaled bronchodilators She was started on gentle hydration due to hypotension Blood culture and urine analysis and urine culture ordered Cardiology consultation and pulmonary consultation requested Will recheck labs in a.m. Will follow closely
[2023-07-23] MEDS: IPRATROPIUM-ALBUTEROL 3 ML NEB INHALATION SCH ×4 (08:35→20:33)
[2023-07-23] MEDS ORDERED: ASPIRIN 81 MG PO SCH (09:00)
[2023-07-23] MEDS ORDERED: ATORVASTATIN 40 MG TAB PO SCH (09:00)
[2023-07-23] MEDS: INSULIN DETEMIR (LEVEMIR) 100 UNIT/ML SYR SQ SCH (09:06)
[2023-07-23] MEDS: ASPIRIN 81 MG PO SCH (09:06)
[2023-07-23] MEDS: METOPROLOL SUCCINATE (ER) 25 MG TAB.ER.24H PO SCH (09:06)
[2023-07-23] MEDS: CLOPIDOGREL 75 MG TAB PO SCH (09:06)
[2023-07-23] MEDS ORDERED: FUROSEMIDE 20 MG TAB PO SCH (10:45)
[2023-07-23 11:45] LABS: Glucose,Whole Blood 421 mg/dL (70-110)
--- NOTE | 2023-07-23 13:33 | P.CNPUL ---
History of Present Illness Consult date: 07/23/23 Requesting physician: Surinder Rodríguez Reason for consult: dyspnea, cough, COPD, hypoxemia Chief complaint: Shortness of breath. History of present illness: Pulmonary consult dated 07/23/2023. 72-year-old female presents to the emergency department, on July 22, complaining of shortness of breath, and states that her asthma/COPD is acting up. In addition to shortness of breath, she complains of chest tightness, cough, and wheezing. She denies any chest pain or chest discomfort. She appar ently also complaining of some ankle swelling. She denied any fever or chills. She did smoke cigarettes in the past, and currently still smokes marijuana, to help her relax. The patient has had at least 5 admissions this year, for similar situation. We have never seen her in the office. In addition to asthma and COPD, the patient has a history of hyperlipidemia, diabetes, and hypertension. The patient apparently also has a history of osteoarthritis, and sleep apnea syndrome. White count 4.7, hemoglobin 11, hematocrit 34.7, with a normal platelet count. Sodium 134, potassium 4.8, chlorides 101, CO2 24, BUN 11, creatinine 0.7. Glucose 421. Troponin is 0.335. The patient is currently on IV heparin, for suspected possible non-ST segment elevation myocardial infarction. The patient's currently on room air. There was no obvious respiratory distress. Review of Systems REVIEW OF SYSTEMS: CONSTITUTIONAL: [Negative.] NEUROLOGIC: [ Negative.] HEENT: [ Negative.] CARDIAC: [Negative.] PULMONARY: Shortness of breath, cough, wheezing, chest tightness. GI: [Negative.] : [Negative.] RHEUMATOLOGIC: [ Negative.] IMMUNOLOGIC: [ Negative.] ENDOCRINE: [Negative. 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 Poly substance abuse 07/19/21 admitted for Acute delirium History of Any Multi-Drug Resistant Organisms: None Reported Past Surgical History: Cholecystectomy, Coronary Bypass/CABG, Hernia Repair, Orthopedic Surgery, Tonsillectomy, Tubal Ligation Additional Past Surgical History / Comment(s): LEFT KNEE ARTHROSCOPY, BMT AND MYRINGOPLASTY, umbilical hernia repair, CABG 2020 Past Anesthesia/Blood Transfusion Reactions: No Reported Reaction Additional Past Anesthesia/Blood Transfusion Reaction / Comment(s): STATES AFTER LAST EAR SX (11/2013) HAD SORE MUSCLES AND WAS WEAK FOR 3-4 DAYS Past Psychological History: Unable to Obtain Smoking Status: Former smoker Past Alcohol Use History: None Reported Past Drug Use History: None Reported, Marijuana - Past Family History Sister(s) Family Medical History: Cancer Brother(s) Family Medical History: Cancer Additional Family Medical History / Comment(s): brother had heart valve replacement Mother Family Medical History: Chest Pain / Angina, Diabetes Mellitus, Hypertension Father History Unknown: Yes Additional Family Medical History / Comment(s): , "had bad lungs" per patient, was a smoker Medications and Allergies Home Medications Medication Instructions Recorded Confirmed Type traMADol HCl [Ultram] 50 mg PO TID PRN 11/04/15 07/22/23 History traZODone HCL [Desyrel] 50 mg PO HS PRN 06/11/23 07/22/23 History Aspirin 81 mg PO DAILY tab 07/01/23 07/22/23 Rx Atorvastatin [Lipitor] 40 mg PO DAILY tab 07/01/23 07/22/23 Rx Clopidogrel [Plavix] 75 mg PO DAILY tab 07/01/23 07/22/23 Rx Insulin Glargine/Lixisenatide 30 units SQ DAILY 30 Days #1 pen 07/01/23 07/22/23 Rx [Soliqua 100 Unit-33 Mcg/ml Pen] Metoprolol Succinate (ER) [Toprol 25 mg PO DAILY tab 07/01/23 07/22/23 Rx XL] lisinopriL [Zestril] 2.5 mg PO DAILY tab 07/01/23 07/22/23 Rx predniSONE [Deltasone] 40 mg PO DAILY tab 07/01/23 07/22/23 Rx Albuterol Nebulized [Ventolin 2.5 mg INHALATION RT-Q4H PRN 07/22/23 07/22/23 History Nebulized] Ipratropium-Albuterol Nebulize 3 ml INHALATION RT-QID 07/22/23 07/22/23 History [Duoneb 0.5 mg-3 mg/3 ml Soln] Allergies Allergy/AdvReac Type Severity Reaction Status Date / Time cephalexin Allergy Anaphylaxis Verified 07/22/23 10:51 cephalexin monohydrate Allergy Anaphylaxis Verified 07/22/23 10:51 [From Keflex] Sulfa (Sulfonamide Allergy Rash/Hives Verified 07/22/23 10:51 Antibiotics) Physical Exam Osteopathic Statement: *. No significant issues noted on an osteopathic structu ral exam other than those noted in the History and Physical/Consult. Vitals: Vital Signs Temp Pulse Pulse Resp BP Pulse Ox 07/23/23 12:06 68 07/23/23 12:00 65 18 111/71 100 07/23/23 11:58 68 07/23/23 10:10 94 18 07/23/23 09:02 97.7 F 94 18 113/70 91 L 07/23/23 08:37 84 97 07/23/23 04:00 97.9 F 100 18 99/65 95 07/23/23 00:00 97.8 F 95 16 115/74 97 07/22/23 20:00 99 F 106 H 18 126/79 97 07/22/23 15:27 102 H 07/22/23 15:15 98 07/22/23 15:06 105 H 17 95/61 97 07/22/23 15:02 114 H Intake and Output 07/22/23 07/23/23 07/23/23 22:59 06:59 14:59 Intake Total 1155.158 10 180 Output Total 300 Balance 855.158 10 180 Intake: IV 10 10 Invasive Line 1 10 10 Intake, IV Titration 380.158 Amount Heparin Sod,Pork in 0.45% 80.158 NaCl 25,000 unit In 0.45 % NaCl 1 250ml.bag @ 11. 25 UNITS/KG/HR 10.104 mls /hr IV .Q24H [facility] Rx#: [id number] Sodium Chloride 0.9% 1, 300 000 ml @ 75 mls/hr IV . [id number] [facility] Rx#:[id number] Oral 765 180 Output: Urine 300 Other: # Voids 1 1 No acute distress, oriented 3. No respiratory distress, use of accessory muscles, or audible wheezing. HEENT examination is grossly unremarkable. Neck supple. Full range of motion. No adenopathy thyromegaly or neck vein distention. Cardiovascular examination reveals regular rhythm rate. S1-S2 normal. No S3 or S4. No discernible murmur noted. Heart rate 68 bpm. Lungs reveal diminished bilateral breath sounds. Scattered expiratory rhonchi and wheezes are noted. Slight prolongation on forced maneuver. No crackles. Saturations are in the mid 90s on room air. Abdomen soft bowel sounds are heard. No masses or tenderness. Extremities are intact. No cyanosis clubbing or edema. Skin is without rash or lesion. Neurologic examination is brief but nonfocal. Results - Laboratory Findings CBC and BMP: 07/23/23 04:13 07/23/23 04:13 PT/INR, D-dimer PT 10.4 sec (9.0-12.0) 07/23/23 04:13 INR 1.0 (<1.2) 07/23/23 04:13 D-Dimer 0.60 mg/L FEU (<0.60) H 07/22/23 03:45 Abnormal lab findings: Abnormal Labs 07/22/23 07/22/23 07/22/23 03:45 03:45 03:45 Hgb 10.9 L Hct MCV 73.7 L MCH 22.8 L MCHC 30.9 L RDW 17.2 H Lymphocytes # 0.8 L APTT D-Dimer 0.60 H Sodium 132 L Chloride 95 L Creatinine Glucose 499 H POC Glucose (mg/dL) Hemoglobin A1c Plasma Lactic Acid Angel Troponin I Triglycerides VLDL Cholesterol, Calc Urine Glucose (UA) 07/22/23 07/22/23 07/22/23 03:45 03:45 03:45 Hgb Hct MCV MCH MCHC RDW Lymphocytes # APTT D-Dimer Sodium Chloride Creatinine Glucose POC Glucose (mg/dL) Hemoglobin A1c Plasma Lactic Acid Angel 2.6 H* Troponin I 0.074 H* Triglycerides 243.00 H VLDL Cholesterol, Calc 48.60 H Urine Glucose (UA) 07/22/23 07/22/23 07/22/23 06:00 07:36 07:38 Hgb Hct MCV MCH MCHC RDW Lymphocytes # APTT D-Dimer Sodium Chloride Creatinine Glucose POC Glucose (mg/dL) 288 H Hemoglobin A1c 10.2 H Plasma Lactic Acid Angel Troponin I 0.587 H* Triglycerides VLDL Cholesterol, Calc Urine Glucose (UA) 07/22/23 07/22/23 07/22/23 12:27 12:42 13:30 Hgb 9.7 L Hct 30.7 L MCV 72.7 L MCH 22.9 L MCHC RDW 17.2 H Lymphocytes # APTT D-Dimer Sodium Chloride Creatinine Glucose POC Glucose (mg/dL) 393 H Hemoglobin A1c Plasma Lactic Acid Angel Troponin I Triglycerides VLDL Cholesterol, Calc Urine Glucose (UA) 4+ H 07/22/23 07/22/23 07/23/23 16:48 19:32 04:13 Hgb 11.0 L Hct MCV 73.3 L MCH 23.1 L MCHC RDW 17.2 H Lymphocytes # 0.6 L APTT D-Dimer Sodium Chloride Creatinine Glucose POC Glucose (mg/dL) 294 H 315 H Hemoglobin A1c Plasma Lactic Acid Angel Troponin I Triglycerides VLDL Cholesterol, Calc Urine Glucose (UA) 07/23/23 07/23/23 07/23/23 04:13 06:03 08:04 Hgb Hct MCV MCH MCHC RDW Lymphocytes # APTT 47.5 H D-Dimer Sodium 134 L Chloride Creatinine 0.47 L Glucose 352 H POC Glucose (mg/dL) 391 H Hemoglobin A1c Plasma Lactic Acid Angel Troponin I Triglycerides VLDL Cholesterol, Calc Urine Glucose (UA) 07/23/23 07/23/23 08:04 11:43 Hgb Hct MCV MCH MCHC RDW Lymphocytes # APTT D-Dimer Sodium Chloride Creatinine Glucose POC Glucose (mg/dL) 421 H Hemoglobin A1c Plasma Lactic Acid Angel Troponin I 0.335 H* Triglycerides VLDL Cholesterol, Calc Urine Glucose (UA) - Diagnostic Findings Chest x-ray: image reviewed Assessment and Plan Assessment: Shortness of breath, secondary to COPD/asthma exacerbation. Previous history of tobacco use. History of hypertension. History of hyperlipidemia. History of diabetes mellitus. History of sleep apnea syndrome, maintained on CPAP. Prior history of coronary artery bypass grafting, 2020. Plan: Plan dated 07/23/2023. Currently, the patient is on Symbicort, an albuterol sulfate/ipratropium bromide, as well as prednisone for suspected COPD exacerbation. In addition, the patient is being evaluated by the primary service, and cardiology, for possible non-ST segment elevation myocardial infarction. The patient did smoke in the past, and continues to smoke marijuana from time to time. She's had 5 admissions to the hospital for similar episodes. The patient has not seen us in the office, we do encourage her to see us in the office, for complete PFTs. This will better define her chronic lung disease. Additional recommendations and suggestions are forthcoming. Prognosis is guarded. Family at the bedside. Time with Patient: Greater than 30
--- NOTE | 2023-07-23 15:53 | P.PN ---
Subjective Progress Note Date: 07/23/23 The patient is a 72-year-old female who presented to the hospital with generalized complaints. She is found to have mildly elevated troponin levels as well as BNP. The patient had a recent similar heart failure admission early in June. She has not followed up with her aging room operator Dr. Mahoney. Patient was interviewed and examined resting comfortably in bed. She is lying flat and has no orthopnea. She denies any chest pain or chest pressure. She reports generalized weakness and fatigue. GENERAL: Well-appearing, well-nourished and in no acute distress. NECK: Supple without JVD or thyromegaly. LUNGS: Breath sounds diminished to auscultation bilaterally. Respiration equal and unlabored. No wheezes, rales or rhonchi. HEART: Regular rate and rhythm without murmurs, rubs or gallops. S1 and S2 heard. EXTREMITIES: Normal range of motion, mild generalized edema. No clubbing or cyanosis. Peripheral pulses intact and strong. TELEMETRY: Sinus rhythm overnight LABS: WBC 4.7, hemoglobin 11.2, hematocrit 34.7, platelets 242, sodium 134, potassium 4.8, BUN 11, creatinine 0.47, AST 16, ALT 16, triglycerides 243, LDL 57, HDL 45 IMPRESSION: Shortness of breath, COPD exacerbation Acute hypoxic respiratory failure Coronary artery disease Ischemic cardiomyopathy Central hypertension Type 2 diabetes, uncontrolled Former smoker Obesity PLAN: Start oral diuretics Increase atorvastatin 80 mg Continue dual antiplatelet therapy Further recommendations to be based on clinical course I am dictating on behalf of Dr Ravin Prieto's history/physical and assessment/plan. Objective - Vital Signs Vital signs: Vital Signs Temp 97.7 F 07/23/23 09:02 Pulse 68 07/23/23 12:06 Resp 18 07/23/23 12:00 BP 111/71 07/23/23 12:00 Pulse Ox 100 07/23/23 12:00 FiO2 Intake & Output 07/22/23 07/23/23 07/23/23 18:59 06:59 18:59 Intake Total 1165.158 360 Output Total 300 Balance -300 1165.158 360 Weight 89.811 kg Intake: IV 20 Invasive Line 1 20 Intake, IV Titration 380.158 Amount Heparin Sod,Pork in 0.45% 80.158 NaCl 25,000 unit In 0.45 % NaCl 1 250ml.bag @ 11. 25 UNITS/KG/HR 10.104 mls /hr IV .Q24H [facility] Rx#: [id number] Sodium Chloride 0.9% 1, 300 000 ml @ 75 mls/hr IV . [id number] [facility] Rx#:[id number] Oral 765 360 Output: Urine 300 Other: # Voids 1 1 1 - Labs CBC & Chem 7: 07/23/23 04:13 07/23/23 04:13 Labs: Abnormal Lab Results - Last 24 Hours (Table) 07/22/23 07/22/23 07/22/23 Range/Units 03:45 06:00 16:48 Hgb (11.4-16.0) gm/dL MCV (80.0-100.0) fL MCH (25.0-35.0) pg RDW (11.5-15.5) % Lymphocytes # (1.0-4.8) k/uL APTT (22.0-30.0) sec Sodium (137-145) mmol/L Creatinine (0.52-1.04) mg/dL Glucose (74-99) mg/dL POC Glucose (mg/dL) 294 H (70-110) mg/dL Hemoglobin A1c 10.2 H (<=6.0) % Troponin I (0.000-0.034) ng/mL Triglycerides 243.00 H (0.00-149.00) mg/dL VLDL Cholesterol, Calc 48.60 H (5.00-40.00) mg/dL 07/22/23 07/23/23 07/23/23 Range/Units 19:32 04:13 04:13 Hgb 11.0 L (11.4-16.0) gm/dL MCV 73.3 L (80.0-100.0) fL MCH 23.1 L (25.0-35.0) pg RDW 17.2 H (11.5-15.5) % Lymphocytes # 0.6 L (1.0-4.8) k/uL APTT (22.0-30.0) sec Sodium 134 L (137-145) mmol/L Creatinine 0.47 L (0.52-1.04) mg/dL Glucose 352 H (74-99) mg/dL POC Glucose (mg/dL) 315 H (70-110) mg/dL Hemoglobin A1c (<=6.0) % Troponin I (0.000-0.034) ng/mL Triglycerides (0.00-149.00) mg/dL VLDL Cholesterol, Calc (5.00-40.00) mg/dL 07/23/23 07/23/23 07/23/23 Range/Units 06:03 08:04 08:04 Hgb (11.4-16.0) gm/dL MCV (80.0-100.0) fL MCH (25.0-35.0) pg RDW (11.5-15.5) % Lymphocytes # (1.0-4.8) k/uL APTT 47.5 H (22.0-30.0) sec Sodium (137-145) mmol/L Creatinine (0.52-1.04) mg/dL Glucose (74-99) mg/dL POC Glucose (mg/dL) 391 H (70-110) mg/dL Hemoglobin A1c (<=6.0) % Troponin I 0.335 H* (0.000-0.034) ng/mL Triglycerides (0.00-149.00) mg/dL VLDL Cholesterol, Calc (5.00-40.00) mg/dL 07/23/23 Range/Units 11:43 Hgb (11.4-16.0) gm/dL MCV (80.0-100.0) fL MCH (25.0-35.0) pg RDW (11.5-15.5) % Lymphocytes # (1.0-4.8) k/uL APTT (22.0-30.0) sec Sodium (137-145) mmol/L Creatinine (0.52-1.04) mg/dL Glucose (74-99) mg/dL POC Glucose (mg/dL) 421 H (70-110) mg/dL Hemoglobin A1c (<=6.0) % Troponin I (0.000-0.034) ng/mL Triglycerides (0.00-149.00) mg/dL VLDL Cholesterol, Calc (5.00-40.00) mg/dL
[2023-07-23 16:20] LABS: Glucose,Whole Blood 481 mg/dL (70-110)
[2023-07-23] MEDS ORDERED: INSULIN ASPART (NovoLOG) 100 UNIT/ML VIAL SQ ONE (16:27)
[2023-07-23] MEDS: SYMBICORT 160-4.5 MCG INHALER INHALATION SCH (20:33)
[2023-07-23 20:49] LABS: Glucose,Whole Blood 432 mg/dL (70-110)
[2023-07-24] MEDS: traZODone HCL 50 MG TAB PO PRN ×2 (01:37→23:50)
[2023-07-24 02:27] LABS: Glucose,Whole Blood 204 mg/dL (70-110)
[2023-07-24 06:18] LABS: Glucose,Whole Blood 168 mg/dL (70-110)
[2023-07-24] MEDS: INSULIN ASPART (NovoLOG) 100 UNIT/ML VIAL SQ SCH ×4 (06:26→20:43)
[2023-07-24 08:01] LABS: Anisocytosis Slight; Basophils % (A) 0 %; Eosinophils % (A) 0 %; HCT 35.2 % (34.0-46.0); Hypochromasia Moderate; Lymphocytes # (A) 1.6 k/uL (1.0-4.8); Lymphocytes % (A) 19 %; MCHC 31.3 g/dL (31.0-37.0); MCV 73.3 fL (80.0-100.0); Mean Platelet Volume 8.6; Microcytosis Moderate; Monocytes # (A) 0.4 k/uL (0-1.0); Monocytes % (A) 4 %; Neutrophils # (A) 6.4 k/uL (1.3-7.7); Neutrophils % (A) 76 %; Platelet Count 301 k/uL (150-450); RDW 17.3 % (11.5-15.5); WBC 8.5 k/uL (3.8-10.6)
[2023-07-24] MEDS: SYMBICORT 160-4.5 MCG INHALER INHALATION SCH ×2 (08:08→21:07)
[2023-07-24] MEDS: IPRATROPIUM-ALBUTEROL 3 ML NEB INHALATION SCH ×4 (08:08→21:07)
[2023-07-24 08:11] LABS: ALT 15 U/L (4-34); AST 13 U/L (14-36); African American GFR (CKD) 77 (>60 ml/min/1.73 sqM); Albumin 3.8 g/dL (3.5-5.0); Alkaline Phosphatase 78 U/L (38-126); Anion Gap 10 mmol/L; Blood Urea Nitrogen 20 mg/dL (7-17); Calcium 9.6 mg/dL (8.4-10.2); Carbon Dioxide 26 mmol/L (22-30); Chloride 99 mmol/L (98-107); Glucose 202 mg/dL (74-99); Non-African American GFR(CKD) 67 (>60 ml/min/1.73 sqM); Potassium 4.2 mmol/L (3.5-5.1); Sodium 135 mmol/L (137-145); Total Bilirubin 0.4 mg/dL (0.2-1.3); Total Protein 6.7 g/dL (6.3-8.2)
[2023-07-24] MEDS: ASPIRIN 81 MG PO SCH (08:53)
[2023-07-24] MEDS: CLOPIDOGREL 75 MG TAB PO SCH (08:53)
[2023-07-24] MEDS: METOPROLOL SUCCINATE (ER) 25 MG TAB.ER.24H PO SCH (08:53)
[2023-07-24] MEDS: predniSONE 10 MG TAB PO SCH (08:53)
[2023-07-24] MEDS: ATORVASTATIN 80 MG TAB PO SCH (08:53)
[2023-07-24] MEDS: FUROSEMIDE 10 MG/ML 4 ML VIAL IV SCH ×2 (08:54→20:41)
[2023-07-24] MEDS: INSULIN DETEMIR (LEVEMIR) 100 UNIT/ML SYR SQ SCH (08:54)
--- NOTE | 2023-07-24 10:59 | P.PN ---
Subjective HISTORY OF PRESENT ILLNESS: This is a 72-year-old female who follows in the office with Dr. Mahoney, but has not been seen recently. Patient is admitted to the hospital secondary to shortness of breath. She is being treated for COPD exacerbation and CHF exacerbation. Patient examined this morning at the bedside. She denies chest pain or pressure. She continues to report shortness of breath although improving. She was started on oral diuretics per cardiology yesterday. Blood pressures are soft with a systolic in the 90s. PHYSICAL EXAM: VITAL SIGNS: Reviewed. GENERAL: Well-developed in no acute distress. NECK: Supple. No JVD or thyromegaly LUNGS: Respirations even and unlabored. Lungs with expiratory wheezing noted HEART: Regular rate and rhythm. S1 and S2 heard. EXTREMITIES: Normal range of motion. No clubbing or cyanosis. Peripheral pulses intact. 1-2+ bilateral lower extremity edema ASSESSMENT: Shortness of breath Acute COPD exacerbation Acute on chronic heart failure with reduced EF, 3035% Coronary artery disease with previous CABG and recent stenting of the PDA, November 2022 Ischemic cardiomyopathy Hypertension Hyperlipidemia Diabetes Former nicotine dependence PLAN: Continue current cardiac medications Recommend transitioning diuretics back to IV. We'll begin IV Lasix 40 mg every 12 hours Daily weights, accurate I&O, monitor kidney function Further recommendations pending patient's course Nurse practitioner note has been reviewed by physician. Signing provider agrees with the documented findings, assessment, and plan of care. Objective - Vital Signs Vital signs: Vital Signs Temp 97.6 F 07/24/23 08:50 Pulse 98 07/24/23 10:37 Resp 18 07/24/23 10:37 BP 93/60 07/24/23 08:50 Pulse Ox 94 L 07/24/23 08:50 FiO2 Intake & Output 07/23/23 07/24/23 07/24/23 18:59 06:59 18:59 Intake Total 360 490 Balance 360 490 Intake: Oral 360 490 Other: Voiding Method Toilet Toilet # Voids 1 2 - Labs CBC & Chem 7: 07/24/23 07:38 07/24/23 07:38 Labs: Abnormal Lab Results - Last 24 Hours (Table) 07/22/23 07/23/23 07/23/23 Range/Units 06:00 11:43 16:19 Hgb (11.4-16.0) gm/dL MCV (80.0-100.0) fL MCH (25.0-35.0) pg RDW (11.5-15.5) % Sodium (137-145) mmol/L BUN (7-17) mg/dL Glucose (74-99) mg/dL POC Glucose (mg/dL) 421 H 481 H (70-110) mg/dL Hemoglobin A1c 10.2 H (<=6.0) % AST (14-36) U/L 07/23/23 07/24/23 07/24/23 Range/Units 20:47 02:24 06:17 Hgb (11.4-16.0) gm/dL MCV (80.0-100.0) fL MCH (25.0-35.0) pg RDW (11.5-15.5) % Sodium (137-145) mmol/L BUN (7-17) mg/dL Glucose (74-99) mg/dL POC Glucose (mg/dL) 432 H 204 H 168 H (70-110) mg/dL Hemoglobin A1c (<=6.0) % AST (14-36) U/L 07/24/23 07/24/23 Range/Units 07:38 07:38 Hgb 11.0 L (11.4-16.0) gm/dL MCV 73.3 L (80.0-100.0) fL MCH 23.0 L (25.0-35.0) pg RDW 17.3 H (11.5-15.5) % Sodium 135 L (137-145) mmol/L BUN 20 H (7-17) mg/dL Glucose 202 H (74-99) mg/dL POC Glucose (mg/dL) (70-110) mg/dL Hemoglobin A1c (<=6.0) % AST 13 L (14-36) U/L
[2023-07-24 11:43] LABS: Glucose,Whole Blood 504 mg/dL (70-110)
[2023-07-24 11:43] LABS: Glucose,Whole Blood 521 mg/dL (70-110)
[2023-07-24] MEDS ORDERED: INSULIN ASPART (NovoLOG) 100 UNIT/ML VIAL SQ ONE (11:51)
--- NOTE | 2023-07-24 13:48 | P.PN ---
Subjective Progress Note Date: 07/24/23 72-year-old female presents to the emergency department, on July 22, complaining of shortness of breath, and states that her asthma/COPD is acting up. In addition to shortness of breath, she complains of chest tightness, cough, and wheezing. She denies any chest pain or chest discomfort. She appa rently also complaining of some ankle swelling. She denied any fever or chills. She did smoke cigarettes in the past, and currently still smokes marijuana, to help her relax. The patient has had at least 5 admissions this year, for similar situation. We have never seen her in the office. In addition to asthma and COPD, the patient has a history of hyperlipidemia, diabetes, and hypertension. The patient apparently also has a history of osteoarthritis, and sleep apnea syndrome. White count 4.7, hemoglobin 11, hematocrit 34.7, with a normal platelet count. Sodium 134, potassium 4.8, chlorides 101, CO2 24, BUN 11, creatinine 0.7. Glucose 421. Troponin is 0.335. The patient is currently on IV heparin, for suspected possible non-ST segment elevation myocardial infarction. The patient's currently on room air. There was no obvious respiratory distress. On today's evaluation of 07/24/2023, the patient has no specific complaints. She has improved considerably. He is less short of breath unless bronchus spastic and wheezing. She is currently on a prednisone as part of a burst taper and currently is on 30 mg by mouth daily. No chest pain. No pleurisy. No hemoptysis. White cell count is at 8.5, hemoglobin is 11, BUN is at 20 with a creatinine of 0.8. Sodium is 135. Objective - Vital Signs Vital signs: Vital Signs Temp 97.6 F 07/24/23 08:50 Pulse 98 07/24/23 10:37 Resp 18 07/24/23 10:37 BP 93/60 07/24/23 08:50 Pulse Ox 94 L 07/24/23 08:50 FiO2 Intake & Output 07/23/23 07/24/23 07/24/23 18:59 06:59 18:59 Intake Total 360 490 Balance 360 490 Intake: Oral 360 490 Other: Voiding Method Toilet Toilet # Voids 1 2 - Exam No acute distress, oriented 3. No respiratory distress, use of accessory muscles, or audible wheezing. HEENT examination is grossly unremarkable. Neck supple. Full range of motion. No adenopathy thyromegaly or neck vein distention. Cardiovascular examination reveals regular rhythm rate. S1-S2 normal. No S3 or S4. No discernible murmur noted. Heart rate 68 bpm. Lungs reveal diminished bilateral breath sounds. Scattered expiratory rhonchi and wheezes are noted. Slight prolongation on forced maneuver. No crackles. Saturations are in the mid 90s on room air. Abdomen soft bowel sounds are heard. No masses or tenderness. Extremities are intact. No cyanosis clubbing or edema. Skin is without rash or lesion. Neurologic examination is brief but nonfocal. - Labs CBC & Chem 7: 07/24/23 07:38 07/24/23 07:38 Labs: Abnormal Lab Results - Last 24 Hours (Table) 07/22/23 07/23/23 07/23/23 Range/Units 06:00 11:43 16:19 Hgb (11.4-16.0) gm/dL MCV (80.0-100.0) fL MCH (25.0-35.0) pg RDW (11.5-15.5) % Sodium (137-145) mmol/L BUN (7-17) mg/dL Glucose (74-99) mg/dL POC Glucose (mg/dL) 421 H 481 H (70-110) mg/dL Hemoglobin A1c 10.2 H (<=6.0) % AST (14-36) U/L 07/23/23 07/24/23 07/24/23 Range/Units 20:47 02:24 06:17 Hgb (11.4-16.0) gm/dL MCV (80.0-100.0) fL MCH (25.0-35.0) pg RDW (11.5-15.5) % Sodium (137-145) mmol/L BUN (7-17) mg/dL Glucose (74-99) mg/dL POC Glucose (mg/dL) 432 H 204 H 168 H (70-110) mg/dL Hemoglobin A1c (<=6.0) % AST (14-36) U/L 07/24/23 07/24/23 Range/Units 07:38 07:38 Hgb 11.0 L (11.4-16.0) gm/dL MCV 73.3 L (80.0-100.0) fL MCH 23.0 L (25.0-35.0) pg RDW 17.3 H (11.5-15.5) % Sodium 135 L (137-145) mmol/L BUN 20 H (7-17) mg/dL Glucose 202 H (74-99) mg/dL POC Glucose (mg/dL) (70-110) mg/dL Hemoglobin A1c (<=6.0) % AST 13 L (14-36) U/L Assessment and Plan Plan: Acute COPD exacerbation, improving Shortness of breath, secondary to COPD/asthma exacerbation. Previous history of tobacco use. History of hypertension. History of hyperlipidemia. History of diabetes mellitus. History of sleep apnea syndrome, maintained on CPAP. Prior history of coronary artery bypass grafting, 2020. Plan: Clinically improved. The patient will continue on the bronchodilators and a prednisone burst taper. Discharge planning is in progress. She may be able to go home today or within next 24 hours. No active issues for now.
[2023-07-24 15:04] VITALS: BMI 36.2
[2023-07-24 16:38] LABS: Glucose,Whole Blood 410 mg/dL (70-110)
--- NOTE | 2023-07-24 16:59 | P.PN ---
Subjective Progress Note Date: 07/24/23 Mari Moore, is a 72-year-old female who presented to [facility] emergency room with a chief complaint of worsening shortness of breath and cough. She was evaluated in the emergency room vital examination on presentation revealed a temperature of 98.1 pulse 122 respiration 41 blood pressure 131/68 pulse ox 99% on room air Laboratory data reveals a white blood count of 7.8 hemoglobin 10.9 platelet count 248 d-dimer 0.6 lactic acid 2.6 sodium 132 potassium 3.9 chloride 95 CO2 22 BUN 10 creatinine 0.6 troponin level 0.074 Testing in the emergency room revealed chest x-ray done in the emergency room revealed no acute cardiopulmonary disease, moderate cardiomegaly, EKG done in the emergency room revealed atrial fibrillation with rapid ventricular response, computed tomography scan of the abdomen and pelvis was done in the emergency room and revealed no acute findings. Patient was admitted to medical floor for further evaluation and treatment Past medical history is significant for history of hypertension, history of hyperlipidemia, history of diabetes mellitus history of coronary artery disease with previous history of angioplasty and stent placement, also history of cor onary artery bypass graft surgery in 2019 , history of ischemic cardiomyopathy, history of COPD, history of asthma, history of morbid obesity, history tobacco abuse and drug abuse, and history of poor compliance with medical treatment On review of systems patient is alert and oriented 3 in no apparent distress, she is complaining of shortness of breath and cough otherwise she denies any complaints, there is no fever or chills no headache or dizziness no chest pain no nausea or vomiting no abdominal pain no diarrhea no blood in the stools no burning with urination no frequency or urgency no hematuria. On 07/23/2023 patient was seen and examined on the telemetry floor she is alert and oriented 3 in no apparent distress she stated she is feeling better, there is improvement in her shortness of breath and cough and otherwise she denies any complaints there is no fever or chills no headache or dizziness no chest pain no nausea or vomiting no abdominal pain no diarrhea and no urinary symptoms. On 07/24/2023 patient was seen and examined on the telemetry floor she is alert and oriented 3 in no apparent distress there is no fever or chills no headache or dizziness she reports improvement in her shortness of breath there is no chest pain no nausea or vomiting no abdominal pain no diarrhea and no urinary symptoms. She was evaluated by cardiology today and was restarted on IV Lasix, she was also evaluated by pulmonary and was switched to oral prednisone, will continue to monitor will recheck labs in a.m.. Objective - Vital Signs Vital signs: Vital Signs Temp 97.6 F 07/24/23 08:50 Pulse 98 07/24/23 08:50 Resp 18 07/24/23 08:50 BP 93/60 07/24/23 08:50 Pulse Ox 94 L 07/24/23 08:50 FiO2 Intake & Output 07/23/23 07/24/23 07/24/23 18:59 06:59 18:59 Intake Total 360 490 Balance 360 490 Intake: Oral 360 490 Other: Voiding Method Toilet # Voids 1 2 - Exam In general patient is alert and oriented x 3 in no distress HEENT head normocephalic and atraumatic Neck is supple no JVD no goiter no lymphadenopathy no carotid bruit Chest examination reveals a crackles in both lung powers with wheezing Cardiac exam reveals irregular heart sounds S1 and S2 with tachycardia no gallops no murmurs Abdomen is soft nontender no organomegaly with normal bowel sounds Extremity exam reveals no edema no cyanosis or clubbing Neurological examination reveals no gross focal deficits - Labs CBC & Chem 7: 07/24/23 07:38 07/24/23 07:38 Labs: Abnormal Lab Results - Last 24 Hours (Table) 07/22/23 07/23/23 07/23/23 Range/Units 06:00 08:04 08:04 Hgb (11.4-16.0) gm/dL MCV (80.0-100.0) fL MCH (25.0-35.0) pg RDW (11.5-15.5) % APTT 47.5 H (22.0-30.0) sec Sodium (137-145) mmol/L BUN (7-17) mg/dL Glucose (74-99) mg/dL POC Glucose (mg/dL) (70-110) mg/dL Hemoglobin A1c 10.2 H (<=6.0) % AST (14-36) U/L Troponin I 0.335 H* (0.000-0.034) ng/mL 07/23/23 07/23/23 07/23/23 Range/Units 11:43 16:19 20:47 Hgb (11.4-16.0) gm/dL MCV (80.0-100.0) fL MCH (25.0-35.0) pg RDW (11.5-15.5) % APTT (22.0-30.0) sec Sodium (137-145) mmol/L BUN (7-17) mg/dL Glucose (74-99) mg/dL POC Glucose (mg/dL) 421 H 481 H 432 H (70-110) mg/dL Hemoglobin A1c (<=6.0) % AST (14-36) U/L Troponin I (0.000-0.034) ng/mL 07/24/23 07/24/23 07/24/23 Range/Units 02:24 06:17 07:38 Hgb 11.0 L (11.4-16.0) gm/dL MCV 73.3 L (80.0-100.0) fL MCH 23.0 L (25.0-35.0) pg RDW 17.3 H (11.5-15.5) % APTT (22.0-30.0) sec Sodium (137-145) mmol/L BUN (7-17) mg/dL Glucose (74-99) mg/dL POC Glucose (mg/dL) 204 H 168 H (70-110) mg/dL Hemoglobin A1c (<=6.0) % AST (14-36) U/L Troponin I (0.000-0.034) ng/mL 07/24/23 Range/Units 07:38 Hgb (11.4-16.0) gm/dL MCV (80.0-100.0) fL MCH (25.0-35.0) pg RDW (11.5-15.5) % APTT (22.0-30.0) sec Sodium 135 L (137-145) mmol/L BUN 20 H (7-17) mg/dL Glucose 202 H (74-99) mg/dL POC Glucose (mg/dL) (70-110) mg/dL Hemoglobin A1c (<=6.0) % AST 13 L (14-36) U/L Troponin I (0.000-0.034) ng/mL Assessment and Plan Plan: Atrial fibrillation with rapid ventricular response Elevated troponin level possible acute CT Lactic acidosis Hypotension with blood pressure at 87/58 at this time Acute exacerbation of chronic obstructive pulmonary disease Underlying history of coronary artery disease with previous history of angioplasty and stent placement and previous history of coronary artery bypass graft surgery Underlying history of hypertension Underlying history of hyperlipidemia Underlying history of insulin-dependent diabetes mellitus Previous history of tobacco and drug use At this time patient will be admitted to telemetry floor She was started on IV heparin She was also started on IV Solu-Medrol and inhaled bronchodilators She was started on gentle hydration due to hypotension Blood culture and urine analysis and urine culture ordered Cardiology consultation and pulmonary consultation requested Will recheck labs in a.m. Will follow closely
[2023-07-24 20:22] LABS: Glucose,Whole Blood 395 mg/dL (70-110)
[2023-07-25] MEDS: traMADol 50 MG TAB PO PRN (00:27)
[2023-07-25 06:09] LABS: Glucose,Whole Blood 207 mg/dL (70-110)
[2023-07-25] MEDS: INSULIN ASPART (NovoLOG) 100 UNIT/ML VIAL SQ SCH (06:17)
[2023-07-25] MEDS: SYMBICORT 160-4.5 MCG INHALER INHALATION SCH (09:05)
[2023-07-25] MEDS: IPRATROPIUM-ALBUTEROL 3 ML NEB INHALATION SCH ×2 (09:05→12:01)
[2023-07-25 09:24] LABS: ALT 14 U/L (4-34); AST 25 U/L (14-36); African American GFR (CKD) >90 (>60 ml/min/1.73 sqM); Albumin 3.6 g/dL (3.5-5.0); Anion Gap 10 mmol/L; Blood Urea Nitrogen 27 mg/dL (7-17); Calcium 8.9 mg/dL (8.4-10.2); Carbon Dioxide 27 mmol/L (22-30); Chloride 97 mmol/L (98-107); Glucose 233 mg/dL (74-99); Non-African American GFR(CKD) 88 (>60 ml/min/1.73 sqM); Sodium 134 mmol/L (137-145); Total Bilirubin 0.6 mg/dL (0.2-1.3); Total Protein 6.5 g/dL (6.3-8.2)
[2023-07-25 09:29] LABS: Anisocytosis Slight; Basophils # (A) 0.1 k/uL (0-0.2); Basophils % (A) 1 %; Eosinophils # (A) 0.1 k/uL (0-0.7); Eosinophils % (A) 1 %; HCT 36.8 % (34.0-46.0); HGB 11.2 gm/dL (11.4-16.0); Hypochromasia Marked; Lymphocytes # (A) 2.5 k/uL (1.0-4.8); Lymphocytes % (A) 33 %; MCH 22.8 pg (25.0-35.0); MCHC 30.4 g/dL (31.0-37.0); MCV 75.1 fL (80.0-100.0); Mean Platelet Volume 8.6; Microcytosis Slight; Monocytes # (A) 0.4 k/uL (0-1.0); Monocytes % (A) 6 %; Neutrophils # (A) 4.4 k/uL (1.3-7.7); Neutrophils % (A) 58 %; Platelet Count 273 k/uL (150-450); RDW 17.3 % (11.5-15.5); WBC 7.5 k/uL (3.8-10.6)
[2023-07-25] MEDS: predniSONE 10 MG TAB PO SCH (09:34)
[2023-07-25] MEDS: ATORVASTATIN 80 MG TAB PO SCH (09:34)
[2023-07-25] MEDS: METOPROLOL SUCCINATE (ER) 25 MG TAB.ER.24H PO SCH (09:34)
[2023-07-25] MEDS: ASPIRIN 81 MG PO SCH (09:34)
[2023-07-25] MEDS: CLOPIDOGREL 75 MG TAB PO SCH (09:34)
[2023-07-25] MEDS: FUROSEMIDE 10 MG/ML 4 ML VIAL IV SCH (09:34)
[2023-07-25 09:38] LABS: Potassium 4.4 mmol/L (3.5-5.1)
[2023-07-25 09:39] VITALS: RESP 16
[2023-07-25 09:39] LABS: Alkaline Phosphatase 55 U/L (38-126)
[2023-07-25] MEDS: INSULIN DETEMIR (LEVEMIR) 100 UNIT/ML SYR SQ SCH (09:40)
--- NOTE | 2023-07-25 09:56 | P.DS ---
Providers Date of admission: 07/22/23 06:44 Expected date of discharge: 07/25/23 Attending physician: Surinder Rodríguez Consults: 07/22/23 06:52 Consult Physician Routine Consulting Provider: Kolton Caraballo Consult Reason/Comments: elevated troponin Do you want consulting provider notified?: Yes 07/22/23 12:39 Consult Physician Routine Consulting Provider: Kaiden Alexander Consult Reason/Comments: shortness of breath Do you want consulting provider notified?: Yes Primary care physician: Surinder Rodríguez [facility] Course: Discharge Diagnosis Atrial fibrillation with rapid ventricular response Elevated troponin level possible acute [place] Lactic acidosis Hypotension with blood pressure at 87/58 at this time Acute exacerbation of chronic obstructive pulmonary disease Underlying history of coronary artery disease with previous history of angioplasty and stent placement and previous history of coronary artery bypass graft surgery Underlying history of hypertension Underlying history of hyperlipidemia Underlying history of insulin-dependent diabetes mellitus Previous history of tobacco and drug use Hospital course Mari Moore, is a 72-year-old female who presented to [facility] emergency room with a chief complaint of worsening shortness of breath and cough. She was evaluated in the emergency room vital examination on presentation revealed a temperature of 98.1 pulse 122 respiration 41 blood pressure 131/68 pulse ox 99% on room air Laboratory data reveals a white blood count of 7.8 hemoglobin 10.9 platelet count 248 d-dimer 0.6 lactic acid 2.6 sodium 132 potassium 3.9 chloride 95 CO2 22 BUN 10 creatinine 0.6 troponin level 0.074 Testing in the emergency room revealed chest x-ray done in the emergency room revealed no acute cardiopulmonary disease, moderate cardiomegaly, EKG done in the emergency room revealed atrial fibrillation with rapid ventricular response, computed tomography scan of the abdomen and pelvis was done in the emergency room and revealed no acute findings. Patient was admitted to medical floor for further evaluation and treatment Past medical history is significant for history of hypertension, history of hyperlipidemia, history of diabetes mellitus history of coronary artery disease with previous history of angioplasty and stent placement, also history of coronary artery bypass graft surgery in 2019 , history of ischemic cardiomyopathy, history of COPD, history of asthma, history of morbid obesity, history tobacco abuse and drug abuse, and history of poor compliance with medical treatment On review of systems patient is alert and oriented 3 in no apparent distress, she is complaining of shortness of breath and cough otherwise she denies any complaints, there is no fever or chills no headache or dizziness no chest pain no nausea or vomiting no abdominal pain no diarrhea no blood in the stools no burning with urination no frequency or urgency no hematuria. On 07/23/2023 patient was seen and examined on the telemetry floor she is alert and oriented 3 in no apparent distress she stated she is feeling better, there is improvement in her shortness of breath and cough and otherwise she denies any complaints there is no fever or chills no headache or dizziness no chest pain no nausea or vomiting no abdominal pain no diarrhea and no urinary symptoms. On 07/24/2023 patient was seen and examined on the telemetry floor she is alert and oriented 3 in no apparent distress there is no fever or chills no headache or dizziness she reports improvement in her shortness of breath there is no chest pain no nausea or vomiting no abdominal pain no diarrhea and no urinary symptoms. She was evaluated by cardiology today and was restarted on IV Lasix, she was also evaluated by pulmonary and was switched to oral prednisone, will continue to monitor will recheck labs in a.m.. On 07/25/2023 patient is alert and oriented x3. States she feels ready to be DC 'd home. Patient has been cleared by pulmonary switch to oral prednisone. Discussed case with cardiology nurse practitioner patient will receive last dose of IV Lasix this a.m. then switch over to oral Lasix patient cleared for discharge from cardiology standpoint. Patient denies chest pain or shortness of breath. Patient denies nausea vomiting or diarrhea. Patient denies any urinary burning or frequency Patient Condition at Discharge: Stable Plan - Discharge Summary New Discharge Prescriptions: New Furosemide [Lasix] 40 mg PO DAILY 30 Days #30 tab Atorvastatin [Lipitor] 80 mg PO DAILY 30 Days #30 tab Continue traMADol HCl [Ultram] 50 mg PO TID PRN PRN Reason: Pain traZODone HCL [Desyrel] 50 mg PO HS PRN PRN Reason: Insomnia Aspirin 81 mg PO DAILY tab Clopidogrel [Plavix] 75 mg PO DAILY tab Insulin Glargine/Lixisenatide [Soliqua 100 Unit-33 Mcg/ml Pen] 30 units SQ DAILY 30 Days #1 pen Metoprolol Succinate (ER) [Toprol XL] 25 mg PO DAILY tab lisinopriL [Zestril] 2.5 mg PO DAILY tab Albuterol Nebulized [Ventolin Nebulized] 2.5 mg INHALATION RT-Q4H PRN PRN Reason: Shortness Of Breath Ipratropium-Albuterol Nebulize [Duoneb 0.5 mg-3 mg/3 ml Soln] 3 ml INHALATION RT-QID Changed predniSONE [Deltasone] 30 mg PO DAILY 12 Days #14 tab Discontinued Atorvastatin [Lipitor] 40 mg PO DAILY tab Discharge Medication List traMADol HCl [Ultram] 50 mg PO TID PRN 11/04/15 [History] traZODone HCL [Desyrel] 50 mg PO HS PRN 06/11/23 [History] Aspirin 81 mg PO DAILY tab 07/01/23 [Rx] Clopidogrel [Plavix] 75 mg PO DAILY tab 07/01/23 [Rx] Insulin Glargine/Lixisenatide [Soliqua 100 Unit-33 Mcg/ml Pen] 30 units SQ DAILY 30 Days #1 pen 07/01/23 [Rx] Metoprolol Succinate (ER) [Toprol XL] 25 mg PO DAILY tab 07/01/23 [Rx] lisinopriL [Zestril] 2.5 mg PO DAILY tab 07/01/23 [Rx] Albuterol Nebulized [Ventolin Nebulized] 2.5 mg INHALATION RT-Q4H PRN 07/22/23 [History] Ipratropium-Albuterol Nebulize [Duoneb 0.5 mg-3 mg/3 ml Soln] 3 ml INHALATION RT-QID 07/22/23 [History] Atorvastatin [Lipitor] 80 mg PO DAILY 30 Days #30 tab 07/25/23 [Rx] Furosemide [Lasix] 40 mg PO DAILY 30 Days #30 tab 07/25/23 [Rx] predniSONE [Deltasone] 30 mg PO DAILY 12 Days #14 tab 07/25/23 [Rx] Follow up Appointment(s)/Referral(s): Kaiden Alexander MD [STAFF PHYSICIAN] - 10 Days Surinder Rodríguez MD [Primary Care Provider] - 1-2 days Kolton Caraballo MD [STAFF PHYSICIAN] - 1 Week Discharge Disposition: HOME SELF-CARE
--- NOTE | 2023-07-25 10:53 | P.PN ---
Subjective Progress Note Date: 07/25/23 72-year-old female presents to the emergency department, on July 22, complaining of shortness of breath, and states that her asthma/COPD is acting up. In addition to shortness of breath, she complains of chest tightness, cough, and wheezing. She denies any chest pain or chest discomfort. She appa rently also complaining of some ankle swelling. She denied any fever or chills. She did smoke cigarettes in the past, and currently still smokes marijuana, to help her relax. The patient has had at least 5 admissions this year, for similar situation. We have never seen her in the office. In addition to asthma and COPD, the patient has a history of hyperlipidemia, diabetes, and hypertension. The patient apparently also has a history of osteoarthritis, and sleep apnea syndrome. White count 4.7, hemoglobin 11, hematocrit 34.7, with a normal platelet count. Sodium 134, potassium 4.8, chlorides 101, CO2 24, BUN 11, creatinine 0.7. Glucose 421. Troponin is 0.335. The patient is currently on IV heparin, for suspected possible non-ST segment elevation myocardial infarction. The patient's currently on room air. There was no obvious respiratory distress. On today's evaluation of 07/24/2023, the patient has no specific complaints. She has improved considerably. He is less short of breath unless bronchus spastic and wheezing. She is currently on a prednisone as part of a burst taper and currently is on 30 mg by mouth daily. No chest pain. No pleurisy. No hemoptysis. White cell count is at 8.5, hemoglobin is 11, BUN is at 20 with a creatinine of 0.8. Sodium is 135. On 08/21/2023, no new complaints and the patient is feeding well and she feels that she is very to go home today.The white cell count is at 7.5, hemoglobin is at 11.2, BUN is 27 with a creatinine of 0.6 and the electrolytes are all within normal limits. Objective - Vital Signs Vital signs: Vital Signs Temp 98.1 F 07/25/23 08:00 Pulse 84 07/25/23 09:16 Resp 16 07/25/23 08:00 BP 118/72 07/25/23 08:00 Pulse Ox 95 07/25/23 10:00 FiO2 Intake & Output 07/24/23 07/25/23 07/25/23 18:59 06:59 18:59 Intake Total 480 480 240 Balance 480 480 240 Weight 89.811 kg 82.1 kg Intake: Oral 480 480 240 Other: Voiding Method Toilet Toilet - Exam No acute distress, oriented 3. No respiratory distress, use of accessory muscles, or audible wheezing. HEENT examination is grossly unremarkable. Neck supple. Full range of motion. No adenopathy thyromegaly or neck vein distention. Cardiovascular examination reveals regular rhythm rate. S1-S2 normal. No S3 or S4. No discernible murmur noted. Heart rate 68 bpm. Lungs reveal diminished bilateral breath sounds. Scattered expiratory rhonchi and wheezes are noted. Slight prolongation on forced maneuver. No crackles. Saturations are in the mid 90s on room air. Abdomen soft bowel sounds are heard. No masses or tenderness. Extremities are intact. No cyanosis clubbing or edema. Skin is without rash or lesion. Neurologic examination is brief but nonfocal. - Labs CBC & Chem 7: 07/25/23 08:00 07/25/23 08:00 Labs: Abnormal Lab Results - Last 24 Hours (Table) 07/24/23 07/24/23 07/24/23 Range/Units 11:40 11:41 16:35 Hgb (11.4-16.0) gm/dL MCV (80.0-100.0) fL MCH (25.0-35.0) pg MCHC (31.0-37.0) g/dL RDW (11.5-15.5) % Sodium (137-145) mmol/L Chloride (98-107) mmol/L BUN (7-17) mg/dL Glucose (74-99) mg/dL POC Glucose (mg/dL) 521 H 504 H 410 H (70-110) mg/dL 07/24/23 07/25/23 07/25/23 Range/Units 20:20 06:08 08:00 Hgb 11.2 L (11.4-16.0) gm/dL MCV 75.1 L (80.0-100.0) fL MCH 22.8 L (25.0-35.0) pg MCHC 30.4 L (31.0-37.0) g/dL RDW 17.3 H (11.5-15.5) % Sodium (137-145) mmol/L Chloride (98-107) mmol/L BUN (7-17) mg/dL Glucose (74-99) mg/dL POC Glucose (mg/dL) 395 H 207 H (70-110) mg/dL 07/25/23 Range/Units 08:00 Hgb (11.4-16.0) gm/dL MCV (80.0-100.0) fL MCH (25.0-35.0) pg MCHC (31.0-37.0) g/dL RDW (11.5-15.5) % Sodium 134 L (137-145) mmol/L Chloride 97 L (98-107) mmol/L BUN 27 H (7-17) mg/dL Glucose 233 H (74-99) mg/dL POC Glucose (mg/dL) (70-110) mg/dL Assessment and Plan Plan: Acute COPD exacerbation, improving Shortness of breath, secondary to COPD/asthma exacerbation. Previous history of tobacco use. History of hypertension. History of hyperlipidemia. History of diabetes mellitus. History of sleep apnea syndrome, maintained on CPAP. Prior history of coronary artery bypass grafting, 2020. Plan: Clinically improved. The patient is to be discharged home today Complete the prednisone burst taper Resume all medications No need for oxygen
[2023-07-25 11:13] LABS: Glucose,Whole Blood 254 mg/dL (70-110)
[2023-07-25 11:45] VITALS: BP 104/60; PULSE 54; TEMP 98.2
--- NOTE | 2023-07-25 12:39 | P.PN ---
Subjective HISTORY OF PRESENT ILLNESS: This is a 72-year-old female who follows in the office with Dr. Mahoney, but has not been seen recently. Patient is admitted to the hospital secondary to shortness of breath. She is being treated for COPD exacerbation and CHF exacerbation. Patient examined this morning at the bedside. She denies chest pain or pressure. She continues to report shortness of breath although improving. She was started on oral diuretics per cardiology yesterday. Blood pressures are soft with a systolic in the 90s. 07/25/2023 Patient examined this morning at the bedside. She denies chest pain or pressure. She reports improvement in her shortness of breath and also in her lower extremities edema. She remains on IV Lasix. Vital signs are stable. PHYSICAL EXAM: VITAL SIGNS: Reviewed. GENERAL: Well-developed in no acute distress. NECK: Supple. No JVD or thyromegaly LUNGS: Respirations even and unlabored. Lungs with expiratory wheezing noted HEART: Regular rate and rhythm. S1 and S2 heard. EXTREMITIES: Normal range of motion. No clubbing or cyanosis. Peripheral pulses intact. 1-2+ bilateral lower extremity edema ASSESSMENT: Shortness of breath Acute COPD exacerbation Acute on chronic heart failure with reduced EF, 3035% Coronary artery disease with previous CABG and recent stenting of the PDA, November 2022 Ischemic cardiomyopathy Hypertension Hyperlipidemia Diabetes Former nicotine dependence PLAN: Discontinue IV Lasix Begin oral Lasix 40 mg daily Patient is stable for discharge home today from a cardiac standpoint Nurse practitioner note has been reviewed by physician. Signing provider agrees with the documented findings, assessment, and plan of care. Objective - Vital Signs Vital signs: Vital Signs Temp 98.2 F 07/25/23 11:42 Pulse 54 L 07/25/23 11:42 Resp 16 07/25/23 11:42 BP 104/60 07/25/23 11:42 Pulse Ox 96 07/25/23 11:42 FiO2 Intake & Output 07/24/23 07/25/23 07/25/23 18:59 06:59 18:59 Intake Total 480 480 240 Balance 480 480 240 Weight 89.811 kg 82.1 kg Intake: Oral 480 480 240 Other: Voiding Method Toilet Toilet Toilet - Labs CBC & Chem 7: 07/25/23 08:00 07/25/23 08:00 Labs: Abnormal Lab Results - Last 24 Hours (Table) 07/24/23 07/24/23 07/25/23 Range/Units 16:35 20:20 06:08 Hgb (11.4-16.0) gm/dL MCV (80.0-100.0) fL MCH (25.0-35.0) pg MCHC (31.0-37.0) g/dL RDW (11.5-15.5) % Sodium (137-145) mmol/L Chloride (98-107) mmol/L BUN (7-17) mg/dL Glucose (74-99) mg/dL POC Glucose (mg/dL) 410 H 395 H 207 H (70-110) mg/dL 07/25/23 07/25/23 07/25/23 Range/Units 08:00 08:00 11:11 Hgb 11.2 L (11.4-16.0) gm/dL MCV 75.1 L (80.0-100.0) fL MCH 22.8 L (25.0-35.0) pg MCHC 30.4 L (31.0-37.0) g/dL RDW 17.3 H (11.5-15.5) % Sodium 134 L (137-145) mmol/L Chloride 97 L (98-107) mmol/L BUN 27 H (7-17) mg/dL Glucose 233 H (74-99) mg/dL POC Glucose (mg/dL) 254 H (70-110) mg/dL
[2023-07-26] MEDS ORDERED: FUROSEMIDE 40 MG TAB PO SCH (09:00)
== END 2023-07-25 12:03 | disposition home or self-care (01) | DRG 190 ==
LOC: EC 02:15 → 3SCARD 06:44
PROVIDERS: ADMIT Internal Medicine; ATTEND Internal Medicine
DX: J44.1 Chronic obstructive pulmonary disease with (acute) exacerbation (principal); I21.4 Non-ST elevation (NSTEMI) myocardial infarction; I50.23 Acute on chronic systolic (congestive) heart failure; J96.01 Acute respiratory failure with hypoxia; J45.901 Unspecified asthma with (acute) exacerbation; E87.20 Acidosis, unspecified; Z20.822 Contact with and (suspected) exposure to COVID-19; J44.0 Chronic obstructive pulmonary disease with (acute) lower respiratory infection; M79.7 Fibromyalgia; Z79.02 Long term (current) use of antithrombotics/antiplatelets; Z79.4 Long term (current) use of insulin; Z79.51 Long term (current) use of inhaled steroids; Z79.82 Long term (current) use of aspirin; Z79.899 Other long term (current) drug therapy; Z82.49 Family history of ischemic heart disease and other diseases of the circulatory system; Z87.891 Personal history of nicotine dependence; Z91.199 Patient's noncompliance with other medical treatment and regimen due to unspecified reason; Z95.1 Presence of aortocoronary bypass graft; Z95.5 Presence of coronary angioplasty implant and graft; I25.10 Atherosclerotic heart disease of native coronary artery without angina pectoris; Z68.33 Body mass index [BMI] 33.0-33.9, adult; I25.5 Ischemic cardiomyopathy; I48.91 Unspecified atrial fibrillation; I11.0 Hypertensive heart disease with heart failure; E66.01 Morbid (severe) obesity due to excess calories; E78.5 Hyperlipidemia, unspecified; E11.65 Type 2 diabetes mellitus with hyperglycemia; Z88.1 Allergy status to other antibiotic agents; Z88.2 Allergy status to sulfonamides; I95.9 Hypotension, unspecified; Z87.19 Personal history of other diseases of the digestive system; Z90.49 Acquired absence of other specified parts of digestive tract; Z98.51 Tubal ligation status
CPT/HCPCS: 36415; 71046; 74176; 80053; 80061; 81003; 82150; 83036; 83605; 83690; 83880; 84443; 84484; 85025; 85379; 85610; 85730; 87635; 93005; 94640; 94760; 96361; 96365; 96366; 96375; 99291

== ENCOUNTER 2023-08-04 05:03 | Inpatient (IN) | payer MEDICARE, OTHER ==
[2023-08-04] MEDS ORDERED: SODIUM CHLORIDE 0.9% 1,000 ML IV STA ×3 (05:05→06:24)
[2023-08-04] MEDS ORDERED: MORPHINE SULFATE 2 MG/ML SYRINGE IVP STA (05:06)
[2023-08-04] MEDS ORDERED: ONDANSETRON 4 MG/2 ML VIAL IVP STA (05:06)
[2023-08-04] MEDS ORDERED: LORazepam 2 MG/ML INJ IM STA (05:08)
[2023-08-04] MEDS ORDERED: MIDAZOLAM 1 MG/ML 5 ML VIAL IV STA ×2 (05:16→05:35)
[2023-08-04] MEDS ORDERED: HALOPERIDOL LACTATE 5 MG/ML 1 ML VIAL IVP STA (05:24)
[2023-08-04 05:42] LABS: Anisocytosis Slight; Basophils % (A) 0 %; Eosinophils % (A) 0 %; HCT 36.2 % (34.0-46.0); HGB 10.8 gm/dL (11.4-16.0); Hypochromasia Marked; Lymphocytes # (A) 2.8 k/uL (1.0-4.8); Lymphocytes % (A) 12 %; MCV 76.6 fL (80.0-100.0); Mean Platelet Volume 9.3; Microcytosis Slight; Monocytes # (A) 0.7 k/uL (0-1.0); Monocytes % (A) 3 %; Neutrophils # (A) 19.3 k/uL (1.3-7.7); Neutrophils % (A) 84 %; Platelet Count 477 k/uL (150-450); RBC 4.72 m/uL (3.80-5.40); RDW 17.4 % (11.5-15.5)
--- NOTE | 2023-08-04 05:44 | XR ---
EXAMINATION TYPE: XR chest 1V portable DATE OF EXAM: 08/04/2023 COMPARISON: Chest x-ray July 22, 2023 HISTORY: Dyspnea. TECHNIQUE: 2 frontal views of the chest are obtained. FINDINGS: Overlying sternal wires and mediastinal clips are redemonstrated. Left atrial appendage cl ip redemonstrated. Persistent cardiomegaly. New right upper to midlung increased opacity and mild alexander tral vascular congestion. No pleural effusion or pneumothorax seen bilaterally. IMPRESSION: Cardiomegaly with mild central vascular congestion and new right upper to midlung acute infiltrate and/or edema.
[2023-08-04 05:48] LABS: VBG PH 7.32 (7.31-7.41)
[2023-08-04 05:50] LABS: ALT 18 U/L (4-34); AST 13 U/L (14-36); African American GFR (CKD) 62 (>60 ml/min/1.73 sqM); Albumin 4.2 g/dL (3.5-5.0); Alkaline Phosphatase 90 U/L (38-126); Amylase 73 U/L (30-110); Anion Gap 22 mmol/L; Blood Urea Nitrogen 41 mg/dL (7-17); Calcium 9.5 mg/dL (8.4-10.2); Carbon Dioxide 15 mmol/L (22-30); Chloride 86 mmol/L (98-107); Lipase 263 U/L (23-300); Non-African American GFR(CKD) 54 (>60 ml/min/1.73 sqM); Potassium 5.5 mmol/L (3.5-5.1); Sodium 123 mmol/L (137-145); Total Bilirubin 0.5 mg/dL (0.2-1.3); Total Protein 6.6 g/dL (6.3-8.2)
[2023-08-04] MEDS ORDERED: ZIPRASIDONE 20 MG VIAL IM STA (05:57)
[2023-08-04 06:05] LABS: Glucose 831 mg/dL (74-99)
[2023-08-04 06:10] LABS: INR 0.9 (<1.2); Partial Thromboplastin Time 22.8 sec (22.0-30.0); Prothrombin Time 9.7 sec (9.0-12.0)
[2023-08-04] MEDS ORDERED: VANCOMYCIN IV PER PHARMACY 1 EACH MISC MISCELLANE PRN (06:23)
[2023-08-04] MEDS ORDERED: PIPERACILLIN-TAZOBACTAM 3.375 GM in SODIUM CHLORIDE 0.9% 100 ML IVPB STA (06:30)
--- NOTE | 2023-08-04 06:51 | CT ---
EXAMINATION TYPE: CT brain wo con DATE OF EXAM: 08/04/2023 HISTORY: AMS and agitation. CT DLP: 1261.4 mGycm. Automated Exposure Control for Dose Reduction was Utilized. TECHNIQUE: CT scan of the head is performed without contrast. COMPARISON: Prior CT October 26, 2022. FINDINGS: There is no acute intracranial hemorrhage or midline shift identified. There is mild diff use ventricular and sulcal prominence redemonstrated. There is mild low-attenuation in the periventr icular white matter redemonstrated. The calvarium is intact. The globes are intact and the visualize d sinuses are clear. IMPRESSION: No acute intracranial hemorrhage or midline shift. There is mild diffuse age-related ce rebral atrophy and chronic small vessel ischemic change redemonstrated. No significant change from p rior.
[2023-08-04] MEDS ORDERED: VANCOMYCIN 1,500 MG in SODIUM CHLORIDE 0.9% 500 ML 500 ML IVPB ONE (07:00)
[2023-08-04 07:40] LABS: Appearance,Urine Clear (Clear); Bilirubin,Urine Negative (Negative); Blood,Urine Negative (Negative); Color,Urine Colorless; Glucose,Urine (UA) 4+ (Negative); Ketones,Urine Negative (Negative); Leukocyte Esterase,Urine Negative (Negative); Nitrite,Urine Negative (Negative); Protein,Urine Trace (Negative); Specific Gravity,Urine 1.021 (1.001-1.035); Urobilinogen,Urine <2.0 mg/dL (<2.0)
--- NOTE | 2023-08-04 07:47 | CT ---
EXAMINATION TYPE: CT angio thor/abd pel aorta DATE OF EXAM: 08/04/2023 COMPARISON: 07/22/2023 HISTORY: AMS CT DLP: 2152.8 mGycm CONTRAST: CTA thoracic and abdominal aorta with 3-D reconstruction is performed and with IV Contrast, patient i njected with 100 mL of Isovue 370. Contrast CTA of the thoracic and abdominal aorta was performed from the lung apex through the base of the pelvis. 3-D reconstruction imaging obtained at a separate workstation. CT Chest: THORACIC AORTA: Borderline aneurysmal dilatation of ascending thoracic aorta at 4 cm AP dimension. No dissection or mediastinal hematoma. Mild atheromatous changes are seen. LUNGS: Airspace infiltrates within the upper lobes with additional scattered groundglass infiltrates at the lung bases felt to reflect pneumonia in the appropriate clinical setting. No pulmonary nodule or mass is detected. No pleural effusion or CT evidence of interstitial lung disease. MEDIASTINUM: The heart is enlarged. Pulmonary arteries as visualized appear to be well opacified. No evidence for mediastinal mass or adenopathy. HILAR STRUCTURES: No evidence for mass. No hilar adenopathy is appreciated. OTHER: No significant abnormality. CONTRAST CT ABDOMEN AND PELVIS ABDOMINAL AORTA: No evidence for abdominal aortic aneurysm. No dissection. Iliac vessels are symmet james and patent. LIVER/GB- No significant abnormality is seen. Gallbladder is surgically absent. PANCREAS- No significant abnormality is seen. SPLEEN- No significant abnormality is seen. ADRENALS- No significant abnormality is seen. KIDNEYS/BLADDER- No significant abnormality is seen. BOWEL- No Significant abnormality GENITAL ORGANS: No gross abnormality seen. LYMPH NODES- No greater than 1cm abdominal or pelvic lymph nodes areappreciated. OSSEOUS STRUCTURES- No significant abnormality is seen. OTHER- No significant abnormality is seen. IMPRESSION- 1. Borderline aneurysmal dilatation of the ascending thoracic aorta. The remainder of the aorta is of normal caliber. No dissection or intramural hematoma seen. 2. Calcified uterine leiomyoma is noted. 3. No acute inflammatory process.
[2023-08-04] MEDS ORDERED: DEXTROSE 50% SYRINGE 50 ML IVP PRN ×2 (07:59)
[2023-08-04] MEDS ORDERED: INSULIN REGULAR BOLUS (FROM DRIP BAG) IV ONE (07:59)
[2023-08-04] MEDS ORDERED: NALOXONE 0.4 MG/ML 1 ML VIAL IV PRN (08:00)
--- NOTE | 2023-08-04 08:14 | ED ---
General Adult HPI - General Chief complaint: Chest Pain Stated complaint: Chest Pain Time Seen by Provider: 08/04/23 05:04 Source: patient, RN notes reviewed, old records reviewed Mode of arrival: ambulatory Limitations: no limitations - History of Present Illness Initial comments: Patient is a 72-year-old female who presents emergency Department with multiple complaints. Has a history of asthma and COPD. Seems somewhat agitated. EMS went to go pick her up and she to get in the rig, however immediately got out and states she can stay. Family drove her to the emergency department and dropped her off. She is complaining of some chest discomfort, coughing, nausea and vomiting, high blood sugars, anxiety, as well as sweating. Has been ongoing for the last 2 days. States her sugars have been reading high. Denies any abdominal pain. She refuses to answer any direct questions and will not cooperative deficits. She will not cooperate with IV being started. She is altered at this time. - Related Data Home Medications Medication Instructions Recorded Confirmed traMADol HCl [Ultram] 50 mg PO TID PRN 11/04/15 08/04/23 traZODone HCL [Desyrel] 50 mg PO HS PRN 06/11/23 08/04/23 Albuterol Nebulized [Ventolin 2.5 mg INHALATION RT-Q4H PRN 07/22/23 08/04/23 Nebulized] Ipratropium-Albuterol Nebulize 3 ml INHALATION RT-QID 07/22/23 08/04/23 [Duoneb 0.5 mg-3 mg/3 ml Soln] predniSONE [Deltasone] 1 dose PO DIRECTED 08/04/23 Previous Rx's Medication Instructions Recorded Aspirin 81 mg PO DAILY tab 07/01/23 Clopidogrel [Plavix] 75 mg PO DAILY tab 07/01/23 Insulin Glargine/Lixisenatide 30 units SQ DAILY 30 Days #1 pen 07/01/23 [Soliqua 100 Unit-33 Mcg/ml Pen] Metoprolol Succinate (ER) [Toprol 25 mg PO DAILY tab 07/01/23 XL] lisinopriL [Zestril] 2.5 mg PO DAILY tab 07/01/23 Atorvastatin [Lipitor] 80 mg PO DAILY 30 Days #30 tab 07/25/23 Furosemide [Lasix] 40 mg PO DAILY 30 Days #30 tab 07/25/23 Allergies Allergy/AdvReac Type Severity Reaction Status Date / Time cephalexin Allergy Anaphylaxis Verified 08/04/23 06:54 cephalexin monohydrate Allergy Anaphylaxis Verified 08/04/23 06:54 [From Keflex] Sulfa (Sulfonamide Allergy Rash/Hives Verified 08/04/23 06:54 Antibiotics) Review of Systems ROS Statement: Those systems with pertinent positive or pertinent negative responses have been documented in the HPI. ROS Other: All systems not noted in ROS Statement are negative. 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 Poly substance abuse 07/19/21 admitted for Acute delirium History of Any Multi-Drug Resistant Organisms: None Reported Past Surgical History: Cholecystectomy, Coronary Bypass/CABG, Hernia Repair, Orthopedic Surgery, Tonsillectomy, Tubal Ligation Additional Past Surgical History / Comment(s): LEFT KNEE ARTHROSCOPY, BMT AND MYRINGOPLASTY, umbilical hernia repair, CABG 2020 Past Anesthesia/Blood Transfusion Reactions: No Reported Reaction Additional Past Anesthesia/Blood Transfusion Reaction / Comment(s): STATES AFTER LAST EAR SX (11/2013) HAD SORE MUSCLES AND WAS WEAK FOR 3-4 DAYS Past Psychological History: Unable to Obtain Smoking Status: Former smoker Past Alcohol Use History: None Reported Past Drug Use History: None Reported, Marijuana - Past Family History Sister(s) Family Medical History: Cancer Brother(s) Family Medical History: Cancer Additional Family Medical History / Comment(s): brother had heart valve replacement Mother Family Medical History: Chest Pain / Angina, Diabetes Mellitus, Hypertension Father History Unknown: Yes Additional Family Medical History / Comment(s): , "had bad lungs" per patient, was a smoker General Exam - General Exam Comments Initial Comments: General: Patient is agitated, somewhat altered will not sit still. HEAD: Normal with no signs of head trauma. EYES: PERRLA, EOMI, conjunctiva normal, no discharge. Herbals are 3 mm and equal bilaterally. ENT: Hearing grossly intact, normal oropharynx. RESPIRATORY: Relatively clear breath sounds with mild wheezing. No hypoxia is significant. Increased work of breathing. C/V: Patient's tachycardic with a regular rhythm. S1 and S2 auscultated. Peripheral pulses 2+ intact throughout. ABD: Abd is soft, nontender, nondistended EXT: Normal range of motion, no obvious deformity SKIN: No rashes or lesions observed on exposed skin. NEURO: Alert and oriented 2-3 however it does appear altered and is unwilling to sit still. Ambulating throughout the trauma bay. Limitations: no limitations Course Vital Signs 08/04/23 08/04/23 08/04/23 05:08 05:53 06:20 Pulse Rate 131 H 151 H Respiratory 36 H 36 H Rate Blood Pressure 144/116 132/100 O2 Sat by Pulse 93 L Oximetry Fraction of 60 Inspired Oxygen (FIO2) 08/04/23 08/04/23 08/04/23 06:21 06:48 07:58 Pulse Rate 130 H Respiratory 18 Rate Blood Pressure 143/80 O2 Sat by Pulse 100 Oximetry Fraction of 60 40 Inspired Oxygen (FIO2) Medical Decision Making - Medical Decision Making Was pt. sent in by a medical professional or institution ([facility], [employer]BER, urgent care, hospital, or longterm...) When possible be specific @ -No Did you speak to anyone other than the patient for history (EMS, parent, family, police, friend...)? What history was obtained from this source @ -No Did you review nursing and triage notes (agree or disagree)? Why? @ -I reviewed and agree with nursing and triage notes Were old charts reviewed (outside hosp., previous admission, EMS record, old EKG, old radiological studies, urgent care reports/EKG's, longterm records)? Report findings @ -Charts reviewed Differential Diagnosis (chest pain, altered mental status, abdominal pain women, abdominal pain men, vaginal bleeding, weakness, fever, dyspnea, syncope, headache, dizziness, GI bleed, back pain, seizure, CVA, palpatations, mental health, musculoskeletal)? @ -Differential Altered Mental Status: Hypoglycemia, DKA, hypercapnia, ETOH, overdose, CO poisoning, trauma, myxedema coma, HTN encephalopathy, infection, encephalitis, psychosis, intercranial hemorrhage, hepatic encephalopathy, meningitis, CVA, this is not meant to be an all-inclusive list EKG interpreted by me (3pts min.). @ -As above X-rays interpreted by me (1pt min.). @ -Chest x-ray shows possible right upper lobe pneumonia. CT interpreted by me (1pt min.). @ -CT brain shows no obvious acute intracranial process. CT angiogram of the aorta reveals no obvious aortic injury. U/S interpreted by me (1pt. min.). @ -None done What testing was considered but not performed or refused? (CT, X-rays, U/S, labs)? Why? @ -None What meds were considered but not given or refused? Why? @ -None Did you discuss the management of the patient with other professionals (pro fessionals i.e. , PA, [employer] MEMBER, lab, RT, psych nurse, social worker assistant, tube buffer, teacher, loan review officer, caseworker intake)? Give summary @ -Discussed with Dr. Bal who accepted the patient to ICU and was in agreement with the plan. Patient will be started on insulin via DKA protocol for possible HHS. Spoke with the admitting physician, Dr. Rodríguez who accepted the patient. Was smoking cessation discussed for >3mins.? @ -No Was critical care preformed (if so, how long)? @ -Yes, 76 minutes. Were there social determinants of health that impacted care today? How? (Homelessness, low income, unemployed, alcoholism, drug addiction, transportation, low edu. Level, literacy, decrease access to med. care, [facility], rehab)? @ -No Was there de-escalation of care discussed even if they declined (Discuss DNR or withdrawal of care, Hospice)? DNR status @ -No What co-morbidities impacted this encounter? (DM, HTN, Smoking, COPD, CAD, Cancer, CVA, ARF, Chemo, Hep., AIDS, mental health diagnosis, sleep apnea, morbid obesity)? @ -Diabetes, COPD Was patient admitted / discharged? Hospital course, mention meds given and route, prescriptions, significant lab abnormalities, going to OR and other pertinent info. @ -Based on patient's presentation and physical exam, I'm concerned for possible infectious process versus DKA versus possible aortic injury as the patient is complaining of chest pain, unable to sit still, and appears to be having some mental status changes. Patient was agitated initially, and eventually was calm enough following multiple doses of Ativan, Versed, Geodon and a dose of Haldol. We were able to obtain multiple IVs. Following this, patient was sleepy, and was placed on BiPAP empirically, but was tolerating lower settings at 12/5 and 40% saturating well. Remainder the patient's vital signs remarkable for tachypnea, as well as tachycardia. Blood pressure within acceptable limits. Broad workup will be obtained. Chest x-ray shows possible right upper lobe pneumonia. EKG shows a regular tachycardia, suspect sinus tachycardia likely secondary to patient's underlying condition. CT imaging revealed no obvious acute process. Aorta appears within acceptable limits. Labs remarkable for leukocytosis of 23. D-dimer within normal limits. Patient is hyperglycemic today 131 with a lactic acidosis of 6.8, and anion gap metabolic acidosis. Troponin within acceptable limits. Acetone negative. Ketones negative in the urine. Patient was empirically started on IV vancomycin as well as Zosyn for sepsis. Patient met sepsis criteria at 0630. Patient is currently receiving 1 L fluid bolus and we will electronics repair technician an additional liter as well as place patient on maintenance fluids. There is also concern for age at bedtime at this time. Osmolality is pending still. Patient will require ICU admission. I spoke with Dr. Bal who accepted the patient to unit was in agreement started the patient on insulin drip per DKA protocol. Otherwise he was in agreement with management. I spoke with the admitting physician, Dr. López who was in agreement with the plan. Undiagnosed new problem with uncertain prognosis? @ -No Drug Therapy requiring intensive monitoring for toxicity (Heparin, Nitro, Insulin, Cardizem)? @ -Insulin Were any procedures done? @ -No Diagnosis/symptom? @ -Sepsis, HHS, dehydration, agitation, sinus tachycardia Acute, or Chronic, or Acute on Chronic? @ -Acute Uncomplicated (without systemic symptoms) or Complicated (systemic symptoms)? @ -Complicated Side effects of treatment? @ -No Exacerbation, Progression, or Severe Exacerbation? @ -No Poses a threat to life or bodily function? How? (Chest pain, [place], [place], pneumonia, PE, COPD, DKA, ARF, appy, cholecystitis, CVA, Diverticulitis, Homicidal, Suicidal, threat to staff... and all critical care pts) @ -Yes - Lab Data Result diagrams: 08/04/23 05:25 08/04/23 05:25 Lab Results 08/04/23 08/04/23 08/04/23 Range/Units 05:25 05:25 05:25 WBC 23.0 H (3.8-10.6) k/uL RBC 4.72 (3.80-5.40) m/uL Hgb 10.8 L (11.4-16.0) gm/dL Hct 36.2 (34.0-46.0) % MCV 76.6 L (80.0-100.0) fL MCH 23.0 L (25.0-35.0) pg MCHC 30.0 L (31.0-37.0) g/dL RDW 17.4 H (11.5-15.5) % Plt Count 477 H (150-450) k/uL MPV 9.3 Neutrophils % 84 % Lymphocytes % 12 % Monocytes % 3 % Eosinophils % 0 % Basophils % 0 % Neutrophils # 19.3 H (1.3-7.7) k/uL Lymphocytes # 2.8 (1.0-4.8) k/uL Monocytes # 0.7 (0-1.0) k/uL Eosinophils # 0.0 (0-0.7) k/uL Basophils # 0.0 (0-0.2) k/uL Hypochromasia Marked Anisocytosis Slight Microcytosis Slight PT 9.7 (9.0-12.0) sec INR 0.9 (<1.2) APTT 22.8 (22.0-30.0) sec D-Dimer 0.57 (<0.60) mg/L FEU VBG pH (7.31-7.41) VBG pCO2 (37-51) mmHg VBG HCO3 (24-28) mmol/L Sodium (137-145) mmol/L Potassium (3.5-5.1) mmol/L Chloride (98-107) mmol/L Carbon Dioxide (22-30) mmol/L Anion Gap mmol/L BUN (7-17) mg/dL Creatinine (0.52-1.04) mg/dL Est GFR (CKD-EPI)AfAm (>60 ml/min/1.73 sqM) Est GFR (CKD-EPI)NonAf (>60 ml/min/1.73 sqM) Glucose (74-99) mg/dL Osmolality (280-301) mosm/kg Lactic Ac Sepsis Rflx Plasma Lactic Acid Angel (0.7-2.0) mmol/L Calcium (8.4-10.2) mg/dL Magnesium (1.6-2.3) mg/dL Total Bilirubin (0.2-1.3) mg/dL AST (14-36) U/L ALT (4-34) U/L Alkaline Phosphatase (38-126) U/L Troponin I (0.000-0.034) ng/mL Total Protein (6.3-8.2) g/dL Albumin (3.5-5.0) g/dL Amylase (30-110) U/L Lipase (23-300) U/L Urine Color Colorless Urine Appearance Clear (Clear) Urine pH 5.0 (5.0-8.0) Ur Specific Given 1.021 (1.001-1.035) Urine Protein Trace H (Negative) Urine Glucose (UA) 4+ H (Negative) Urine Ketones Negative (Negative) Urine Blood Negative (Negative) Urine Nitrite Negative (Negative) Urine Bilirubin Negative (Negative) Urine Urobilinogen <2.0 (<2.0) mg/dL Ur Leukocyte Esterase Negative (Negative) Acetone, Qual (Negative) 08/04/23 08/04/23 08/04/23 Range/Units 05:25 05:25 05:25 WBC (3.8-10.6) k/uL RBC (3.80-5.40) m/uL Hgb (11.4-16.0) gm/dL Hct (34.0-46.0) % MCV (80.0-100.0) fL MCH (25.0-35.0) pg MCHC (31.0-37.0) g/dL RDW (11.5-15.5) % Plt Count (150-450) k/uL MPV Neutrophils % % Lymphocytes % % Monocytes % % Eosinophils % % Basophils % % Neutrophils # (1.3-7.7) k/uL Lymphocytes # (1.0-4.8) k/uL Monocytes # (0-1.0) k/uL Eosinophils # (0-0.7) k/uL Basophils # (0-0.2) k/uL Hypochromasia Anisocytosis Microcytosis PT (9.0-12.0) sec INR (<1.2) APTT (22.0-30.0) sec D-Dimer (<0.60) mg/L FEU VBG pH 7.32 (7.31-7.41) VBG pCO2 33 L (37-51) mmHg VBG HCO3 17 L (24-28) mmol/L Sodium 123 L (137-145) mmol/L Potassium 5.5 H (3.5-5.1) mmol/L Chloride 86 L (98-107) mmol/L Carbon Dioxide 15 L (22-30) mmol/L Anion Gap 22 mmol/L BUN 41 H (7-17) mg/dL Creatinine 1.04 (0.52-1.04) mg/dL Est GFR (CKD-EPI)AfAm 62 (>60 ml/min/1.73 sqM) Est GFR (CKD-EPI)NonAf 54 (>60 ml/min/1.73 sqM) Glucose 831 H* (74-99) mg/dL Osmolality (280-301) mosm/kg Lactic Ac Sepsis Rflx Plasma Lactic Acid Angel (0.7-2.0) mmol/L Calcium 9.5 (8.4-10.2) mg/dL Magnesium 2.0 (1.6-2.3) mg/dL Total Bilirubin 0.5 (0.2-1.3) mg/dL AST 13 L (14-36) U/L ALT 18 (4-34) U/L Alkaline Phosphatase 90 (38-126) U/L Troponin I 0.023 (0.000-0.034) ng/mL Total Protein 6.6 (6.3-8.2) g/dL Albumin 4.2 (3.5-5.0) g/dL Amylase 73 (30-110) U/L Lipase 263 (23-300) U/L Urine Color Urine Appearance (Clear) Urine pH (5.0-8.0) Ur Specific Given (1.001-1.035) Urine Protein (Negative) Urine Glucose (UA) (Negative) Urine Ketones (Negative) Urine Blood (Negative) Urine Nitrite (Negative) Urine Bilirubin (Negative) Urine Urobilinogen (<2.0) mg/dL Ur Leukocyte Esterase (Negative) Acetone, Qual Negative (Negative) 08/04/23 08/04/23 08/04/23 Range/Units 05:25 05:29 06:12 WBC (3.8-10.6) k/uL RBC (3.80-5.40) m/uL Hgb (11.4-16.0) gm/dL Hct (34.0-46.0) % MCV (80.0-100.0) fL MCH (25.0-35.0) pg MCHC (31.0-37.0) g/dL RDW (11.5-15.5) % Plt Count (150-450) k/uL MPV Neutrophils % % Lymphocytes % % Monocytes % % Eosinophils % % Basophils % % Neutrophils # (1.3-7.7) k/uL Lymphocytes # (1.0-4.8) k/uL Monocytes # (0-1.0) k/uL Eosinophils # (0-0.7) k/uL Basophils # (0-0.2) k/uL Hypochromasia Anisocytosis Microcytosis PT (9.0-12.0) sec INR (<1.2) APTT (22.0-30.0) sec D-Dimer (<0.60) mg/L FEU VBG pH (7.31-7.41) VBG pCO2 (37-51) mmHg VBG HCO3 (24-28) mmol/L Sodium (137-145) mmol/L Potassium (3.5-5.1) mmol/L Chloride (98-107) mmol/L Carbon Dioxide (22-30) mmol/L Anion Gap mmol/L BUN (7-17) mg/dL Creatinine (0.52-1.04) mg/dL Est GFR (CKD-EPI)AfAm (>60 ml/min/1.73 sqM) Est GFR (CKD-EPI)NonAf (>60 ml/min/1.73 sqM) Glucose (74-99) mg/dL Osmolality 317 H (280-301) mosm/kg Lactic Ac Sepsis Rflx Y Plasma Lactic Acid Angel 6.8 H* (0.7-2.0) mmol/L Calcium (8.4-10.2) mg/dL Magnesium (1.6-2.3) mg/dL Total Bilirubin (0.2-1.3) mg/dL AST (14-36) U/L ALT (4-34) U/L Alkaline Phosphatase (38-126) U/L Troponin I (0.000-0.034) ng/mL Total Protein (6.3-8.2) g/dL Albumin (3.5-5.0) g/dL Amylase (30-110) U/L Lipase (23-300) U/L Urine Color Urine Appearance (Clear) Urine pH (5.0-8.0) Ur Specific Given (1.001-1.035) Urine Protein (Negative) Urine Glucose (UA) (Negative) Urine Ketones (Negative) Urine Blood (Negative) Urine Nitrite (Negative) Urine Bilirubin (Negative) Urine Urobilinogen (<2.0) mg/dL Ur Leukocyte Esterase (Negative) Acetone, Qual (Negative) - EKG Data -: EKG Interpreted by Me EKG Comments: 12-lead Electrocardiogram Interpretation Note EKG was reviewed and interpreted by myself. 12-lead ECG performed at [facility] is interpreted by me as revealing sinus tachycardia versus structural tachycardia at a rate of 153 beats per minute. Left axis deviation. NH interval is 83 ms, QRS durations 176 ms, QTc is 396 ms.. There were no obvious acute ST or T wave abnormalities to suggest significant myocardial ischemia or injury. . . Critical Care Time Critical Care Time: Yes Total Critical Care Time: 76 Disposition Clinical Impression: Hyperosmolar hyperglycemic state (HHS), Sinus tachycardia, Sepsis, Lactic acidosis, Altered mental status Disposition: ADMITTED IP TO THIS [facility] Condition: Serious Referrals: Surinder Rodríguez MD [Primary Care Provider] - 1-2 days Time of Disposition: 08:00
[2023-08-04] MEDS ORDERED: IPRATROPIUM-ALBUTEROL 3 ML NEB INHALATION PRN (08:43)
[2023-08-04 09:02] LABS: Glucose,Whole Blood >600 mg/dL (70-110)
[2023-08-04] MEDS: INSULIN REGULAR 100 UNIT in SODIUM CHLORIDE 0.9% 100 ML IV SCH ×2 (09:04→21:14)
[2023-08-04] MEDS ORDERED: PIPERACILLIN-TAZOBACTAM 3.375 GM in SODIUM CHLORIDE 0.9% 100 ML IVPB SCH (10:00)
[2023-08-04 10:20] LABS: Glucose,Whole Blood >600 mg/dL (70-110)
[2023-08-04] MEDS: methylPREDNISolone SOD SUCCI 40 MG/ML 1 ML VIAL IV SCH ×2 (10:33→16:31)
[2023-08-04] MEDS: DEXMEDETOMIDINE/0.9% NACL(PMX) 400 MCG in EMPTY BAG 1 BAG IV SCH (10:36)
[2023-08-04] MEDS: SODIUM CHLORIDE 0.9% 1,000 ML IV SCH ×2 (10:42→16:15)
[2023-08-04 11:44] LABS: Glucose,Whole Blood >600 mg/dL (70-110)
[2023-08-04] MEDS: IPRATROPIUM-ALBUTEROL 3 ML NEB INHALATION SCH ×3 (12:26→21:17)
[2023-08-04 12:29] LABS: Glucose,Whole Blood 569 mg/dL (70-110)
[2023-08-04 13:34] LABS: Glucose,Whole Blood 539 mg/dL (70-110)
[2023-08-04 14:30] LABS: Glucose,Whole Blood 437 mg/dL (70-110)
--- NOTE | 2023-08-04 15:22 | P.CNPUL ---
History of Present Illness Consult date: 08/04/23 Requesting physician: Surinder Rodríguez Reason for consult: dyspnea, hypoxemia Chief complaint: Altered mental status and agitation History of present illness: This is a 72-year-old female with history of multiple medical problems including severe COPD/asthma patient was recently in the hospital and she was seen by Dr. Murry on consultation. Patient was brought into the ER and early this mornin g with multiple complaints, however the patient herself is a very poor historian, and could not get information from the patient. But according to the chart the patient arrived to the ER, she was extremely agitated, she was also complaining of some vague chest discomfort, cough, nausea and vomiting, she was also sweating profusely upon arrival. Patient was noted to have extremely elevated blood sugar however she had negative ketones. When I saw the patient she was not answering any questions and was not cooperative, patient was on BiPAP. Chest x-ray showed cardiomegaly, mild pulmonary vascular congestion, questionable right upper lobe infiltrate her labs showed evidence of leukocytosis with WBC count of 23.0 hemoglobin 10.8. Sodium was noted to be low at 123 however this is a pseudohyponatremia because her blood sugar was a 51. Bicarb was noted to be 15 and she had anion gap of 22. Urine was negative for ketones. Troponin was slightly elevated. At any rate I evaluated the patient in the ER, recommended icy admission once a bed becomes available in the meantime we will place the patient on the DKA protocol although the patient has what seems to be a hyperosmolar nonketotic state. With hyperglycemia. And acute anion gap metabolic acidosis. Again her ketones were negative in the urine. 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 Poly substance abuse 07/19/21 admitted for Acute delirium History of Any Multi-Drug Resistant Organisms: None Reported Past Surgical History: Cholecystectomy, Coronary Bypass/CABG, Hernia Repair, Orthopedic Surgery, Tonsillectomy, Tubal Ligation Additional Past Surgical History / Comment(s): LEFT KNEE ARTHROSCOPY, BMT AND MYRINGOPLASTY, umbilical hernia repair, CABG 2020 Past Anesthesia/Blood Transfusion Reactions: No Reported Reaction Additional Past Anesthesia/Blood Transfusion Reaction / Comment(s): STATES AFTER LAST EAR SX (11/2013) HAD SORE MUSCLES AND WAS WEAK FOR 3-4 DAYS Past Psychological History: Unable to Obtain Smoking Status: Former smoker Past Alcohol Use History: None Reported Past Drug Use History: None Reported, Marijuana - Past Family History Sister(s) Family Medical History: Cancer Brother(s) Family Medical History: Cancer Additional Family Medical History / Comment(s): brother had heart valve replacement Mother Family Medical History: Chest Pain / Angina, Diabetes Mellitus, Hypertension Father History Unknown: Yes Additional Family Medical History / Comment(s): , "had bad lungs" per patient, was a smoker Medications and Allergies Home Medications Medication Instructions Recorded Confirmed Type traMADol HCl [Ultram] 50 mg PO TID PRN 11/04/15 08/04/23 History traZODone HCL [Desyrel] 50 mg PO HS PRN 06/11/23 08/04/23 History Aspirin 81 mg PO DAILY tab 07/01/23 08/04/23 Rx Clopidogrel [Plavix] 75 mg PO DAILY tab 07/01/23 08/04/23 Rx Insulin Glargine/Lixisenatide 30 units SQ DAILY 30 Days #1 pen 07/01/23 08/04/23 Rx [Soliqua 100 Unit-33 Mcg/ml Pen] Metoprolol Succinate (ER) [Toprol 25 mg PO DAILY tab 07/01/23 08/04/23 Rx XL] lisinopriL [Zestril] 2.5 mg PO DAILY tab 07/01/23 08/04/23 Rx Albuterol Nebulized [Ventolin 2.5 mg INHALATION RT-Q4H PRN 07/22/23 08/04/23 History Nebulized] Ipratropium-Albuterol Nebulize 3 ml INHALATION RT-QID 07/22/23 08/04/23 History [Duoneb 0.5 mg-3 mg/3 ml Soln] Atorvastatin [Lipitor] 80 mg PO DAILY 30 Days #30 tab 07/25/23 08/04/23 Rx Furosemide [Lasix] 40 mg PO DAILY 30 Days #30 tab 07/25/23 08/04/23 Rx predniSONE [Deltasone] See Taper PO DIRECTED 08/04/23 08/04/23 History Allergies Allergy/AdvReac Type Severity Reaction Status Date / Time cephalexin Allergy Anaphylaxis Verified 08/04/23 06:54 cephalexin monohydrate Allergy Anaphylaxis Verified 08/04/23 06:54 [From Keflex] Sulfa (Sulfonamide Allergy Rash/Hives Verified 08/04/23 06:54 Antibiotics) Physical Exam Vitals: Vital Signs Temp Pulse Resp BP Pulse Ox FiO2 08/04/23 14:30 109 H 22 127/70 92 L 08/04/23 14:00 116 H 24 107/62 94 L 08/04/23 13:30 118 H 24 93/63 93 L 08/04/23 13:00 121 H 21 120/97 97 08/04/23 12:41 118 H 08/04/23 12:30 124 H 20 134/95 95 08/04/23 12:28 118 H 40 08/04/23 12:16 98.0 F 08/04/23 12:00 120 H 24 118/64 95 08/04/23 11:52 129 H 18 118/64 98 08/04/23 11:30 124 H 22 114/75 100 08/04/23 11:00 126 H 22 107/81 91 L 08/04/23 10:30 126 H 22 100/68 91 L 08/04/23 10:00 122 H 22 109/79 91 L 08/04/23 09:30 142 H 20 117/69 99 08/04/23 09:15 40 08/04/23 08:30 141 H 38 H 118/79 100 08/04/23 08:00 33 H 08/04/23 07:58 130 H 18 143/80 100 08/04/23 06:48 40 08/04/23 06:21 60 08/04/23 06:20 60 08/04/23 05:53 151 H 36 H 132/100 93 L 08/04/23 05:08 131 H 36 H 144/116 Intake and Output 08/04/23 08/04/23 08/04/23 06:59 14:59 22:59 Intake Total 17.064 Balance 17.064 Intake: Intake, IV Titration 17.064 Amount Dexmedetomidine/0.9% NaCl 17.064 (Pmx) 400 mcg In Empty Bag 1 bag @ 0.2 MCG/KG/HR 4.196 mls/hr IV .[id number] [facility] Rx#:[id number] Other: Weight 83.915 kg GENERAL EXAM: Revealed a 72-year-old female on BiPAP, restless and agitated while in the ER. And difficult to calm down. Hence I recommended Precedex drip HEAD: Normocephalic and atraumatic EYES: Normal reaction of pupils, equal size. NOSE: Clear with pink turbinates. THROAT: No erythema or exudates. NECK: No masses, no JVD. CHEST: No chest wall deformity. LUNGS: Diffuse rhonchi and wheezes noted bilaterally. CVS: S1 and S2 normal with no audible murmur, regular rhythm. No extra heart sounds ABDOMEN: Obese, No hepatosplenomegaly, active bowel sounds, no guarding or rigidity. SKIN: No rashes CENTRAL NERVOUS SYSTEM: Difficult to assess, patient is quite encephalopathic. EXTREMITIES: Results - Laboratory Findings CBC and BMP: 08/04/23 05:25 08/04/23 05:25 PT/INR, D-dimer PT 9.7 sec (9.0-12.0) 08/04/23 05:25 INR 0.9 (<1.2) 08/04/23 05:25 D-Dimer 0.57 mg/L FEU (<0.60) 08/04/23 05:25 Abnormal lab findings: Abnormal Labs 08/04/23 08/04/23 08/04/23 05:25 05:25 05:25 WBC 23.0 H Hgb 10.8 L MCV 76.6 L MCH 23.0 L MCHC 30.0 L RDW 17.4 H Plt Count 477 H Neutrophils # 19.3 H VBG pCO2 VBG HCO3 Sodium 123 L Potassium 5.5 H Chloride 86 L Carbon Dioxide 15 L BUN 41 H Glucose 831 H* POC Glucose (mg/dL) Osmolality Plasma Lactic Acid Angel AST 13 L Urine Protein Trace H Urine Glucose (UA) 4+ H 08/04/23 08/04/23 08/04/23 05:25 05:25 05:29 WBC Hgb MCV MCH MCHC RDW Plt Count Neutrophils # VBG pCO2 33 L VBG HCO3 17 L Sodium Potassium Chloride Carbon Dioxide BUN Glucose POC Glucose (mg/dL) Osmolality 317 H Plasma Lactic Acid Angel 6.8 H* AST Urine Protein Urine Glucose (UA) 08/04/23 08/04/23 08/04/23 08:56 09:14 10:18 WBC Hgb MCV MCH MCHC RDW Plt Count Neutrophils # VBG pCO2 VBG HCO3 Sodium Potassium Chloride Carbon Dioxide BUN Glucose POC Glucose (mg/dL) >600 H >600 H Osmolality Plasma Lactic Acid Angel 5.5 H* AST Urine Protein Urine Glucose (UA) 08/04/23 08/04/23 08/04/23 11:43 12:28 13:32 WBC Hgb MCV MCH MCHC RDW Plt Count Neutrophils # VBG pCO2 VBG HCO3 Sodium Potassium Chloride Carbon Dioxide BUN Glucose POC Glucose (mg/dL) >600 H 569 H 539 H Osmolality Plasma Lactic Acid Angel AST Urine Protein Urine Glucose (UA) 08/04/23 08/04/23 13:57 14:28 WBC Hgb MCV MCH MCHC RDW Plt Count Neutrophils # VBG pCO2 VBG HCO3 Sodium Potassium Chloride Carbon Dioxide BUN Glucose POC Glucose (mg/dL) 437 H Osmolality Plasma Lactic Acid Angel 3.1 H* AST Urine Protein Urine Glucose (UA) - Diagnostic Findings Chest x-ray: image reviewed (As noted in HPI) Assessment and Plan Assessment: Impression: Acute hypoxic respiratory failure Acute hypoxia hyper glycemic nonketotic hyperosmolar state Acute exacerbation of COPD Pseudohyponatremia because of hyperglycemia Acute on chronic congestive heart failure, systolic in nature, ejection fraction of 40% at best Coronary arteriosclerosis and previous CABG as well as stenting of the PDA in December 12 2022 Dyslipidemia Benign essential hypertension Acute anion gap metabolic acidosis History of thyroid nodule Fibromyalgia Current marijuana smoke or X tobacco smoker Recommendation: Continue BiPAP Repeat ABG Admit to ICU when a bed is available Follow the DKA protocol for her hyperglycemia and the patient will need insulin drip. Continue bronchodilators Empiric antibiotics although clinically I doubt pneumonia Close monitoring of her blood sugars and her electrolytes Continue Solu-Medrol 40 mg IV push every 8 hours GI and DVT prophylaxis Start the patient on Precedex while in the ER and that could be continued in the ICU We will continue to follow Patient is critically ill, needs ICU admission. Critical care time is over 50 but Time with Patient: Greater than 30
[2023-08-04 15:23] LABS: Glucose,Whole Blood 363 mg/dL (70-110)
[2023-08-04 16:12] LABS: African American GFR (CKD) 67 (>60 ml/min/1.73 sqM); Anion Gap 15 mmol/L; Blood Urea Nitrogen 39 mg/dL (7-17); Carbon Dioxide 20 mmol/L (22-30); Chloride 105 mmol/L (98-107); Glucose 227 mg/dL (74-99); Non-African American GFR(CKD) 58 (>60 ml/min/1.73 sqM); Phosphorus 4.6 mg/dL (2.5-4.5); Potassium 3.9 mmol/L (3.5-5.1); Sodium 140 mmol/L (137-145)
[2023-08-04] MEDS: D5-0.45% NACL WITH KCL 20MEQ/L 1,000 ML IV SCH ×3 (16:48→23:18)
[2023-08-04] MEDS: PIPERACILLIN-TAZOBACTAM 3.375 GM in SODIUM CHLORIDE 0.9% 100 ML IVPB SCH (16:59)
[2023-08-04 17:35] LABS: Glucose,Whole Blood 191 mg/dL (70-110)
[2023-08-04 19:37] LABS: ABG Base Excess -2.5 mmol/L; ABG HCO3 23 mmol/L (21-25); ABG Oxygen Saturation 36.5 % (94-97); ABG PCO2 43 mmHg (35-45); ABG PH 7.34 (7.35-7.45); ABG TCO2 25 mmol/L (19-24); Allen Test Performed? Yes
[2023-08-04 19:40] LABS: ABG PO2 26 mmHg (83-108)
[2023-08-04 19:45] LABS: Glucose,Whole Blood 222 mg/dL (70-110)
[2023-08-04 20:18] LABS: Glucose,Whole Blood 238 mg/dL (70-110)
[2023-08-04 20:26] LABS: ABG Base Excess -17.2 mmol/L; ABG HCO3 11 mmol/L (21-25); ABG Oxygen Saturation 73.7 % (94-97); ABG PCO2 28 mmHg (35-45); ABG TCO2 12 mmol/L (19-24); Allen Test Performed? Yes
[2023-08-04 20:30] LABS: ABG PO2 44 mmHg (83-108)
[2023-08-04] MEDS ORDERED: propofoL 100 ML IV ONE (20:50)
[2023-08-04 21:00] LABS: African American GFR (CKD) 85 (>60 ml/min/1.73 sqM); Anion Gap 11 mmol/L; Blood Urea Nitrogen 36 mg/dL (7-17); Calcium 8.4 mg/dL (8.4-10.2); Carbon Dioxide 21 mmol/L (22-30); Chloride 107 mmol/L (98-107); Glucose 217 mg/dL (74-99); Non-African American GFR(CKD) 74 (>60 ml/min/1.73 sqM); Phosphorus 3.7 mg/dL (2.5-4.5); Potassium 3.9 mmol/L (3.5-5.1); Sodium 139 mmol/L (137-145)
[2023-08-04] MEDS ORDERED: methylPREDNISolone SOD SUCCI 40 MG/ML 1 ML VIAL IV SCH (21:00)
[2023-08-04] MEDS ORDERED: DEXTROSE 5% IN WATER 1,000 ML with SODIUM BICARB (1 MEQ/ML) 150 ML IV SCH (21:00)
[2023-08-04] MEDS ORDERED: FUROSEMIDE 10 MG/ML 4 ML VIAL IV SCH (21:00)
[2023-08-04 21:11] LABS: Glucose,Whole Blood 215 mg/dL (70-110)
[2023-08-04] MEDS: NOREPINEPHRINE 4 MG in SODIUM CHLORIDE 0.9% 250 ML IV SCH (21:15)
[2023-08-04] MEDS: BUDESONIDE 1 MG/2 ML NEBU INHALATION SCH (21:17)
[2023-08-04] MEDS: FORMOTEROL FUMARATE 20 MCG/2 ML NEBU INHALATION SCH (21:17)
--- NOTE | 2023-08-04 21:42 | P.CONS ---
History of Present Illness - Reason for Consult Consult date: 08/04/23 - History of Present Illness Patient is a 72-year-old female with a past medical history significant for diabetes mellitus fibromyalgia hypertension hyperlipidemia osteoarthritis sleep apnea and asthma presented to the hospital this morning complaining of chest discomfort coughing nausea vomiting elevated blood sugar as well as anxiety and sweating patient symptom has been going on for 2 days before presentation the hospital on arrival to the ER the patient was afebrile and no fever has been recorded subsequently patient did have vital 23,000 creatinine was normal 0.80 no exams are normal amylase lipase was normal urine was negative serum extremities negative D-dimer was normal patient did have a chest x-ray cardiomegaly with mild central venous congestion new right upper to midlung acute infiltrate and or edema patient was started on Zosyn patient is currently on a BiPAP and is getting medication for her agitation so most information has been obtained from review the chart and nursing staff as the patient was unable to provide any history infectious disease was consulted concerning for sepsis Past Medical History Past Medical History: Asthma, Coronary Artery Disease (CAD), Heart Failure, COPD, Diabetes Mellitus, Fibromyalgia, Hyperlipidemia, Hypertension, Musculoskeletal Disorder, Osteoarthritis (OA), Sleep Apnea/CPAP/BIPAP Additional Past Medical History / Comment(s): TESTED POSITIVE FOR LUPUS (STATES NO SYMPTOMS), DOES NOT USE CPAP, SEASONAL ALLERGIES, STATES 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 Poly substance abuse 07/19/21 admitted for Acute delirium History of Any Multi-Drug Resistant Organisms: None Reported Past Surgical History: Cholecystectomy, Coronary Bypass/CABG, Hernia Repair, Orthopedic Surgery, Tonsillectomy, Tubal Ligation Additional Past Surgical History / Comment(s): LEFT KNEE ARTHROSCOPY, BMT AND MYRINGOPLASTY, umbilical hernia repair, CABG 2020 Past Anesthesia/Blood Transfusion Reactions: No Reported Reaction Additional Past Anesthesia/Blood Transfusion Reaction / Comm: STATES AFTER LAST EAR SX (11/2013) HAD SORE MUSCLES AND WAS WEAK FOR 3-4 DAYS Past Psychological History: Unable to Obtain Smoking Status: Former smoker Past Alcohol Use History: None Reported Past Drug Use History: None Reported, Marijuana - Past Family History Sister(s) Family Medical History: Cancer Brother(s) Family Medical History: Cancer Additional Family Medical History / Comment(s): brother had heart valve replacement Mother Family Medical History: Chest Pain / Angina, Diabetes Mellitus, Hypertension Father History Unknown: Yes Additional Family Medical History / Comment(s): , "had bad lungs" per patient, was a smoker Medications and Allergies Home Medications Medication Instructions Recorded Confirmed Type traMADol HCl [Ultram] 50 mg PO TID PRN 11/04/15 08/04/23 History traZODone HCL [Desyrel] 50 mg PO HS PRN 06/11/23 08/04/23 History Aspirin 81 mg PO DAILY tab 07/01/23 08/04/23 Rx Clopidogrel [Plavix] 75 mg PO DAILY tab 07/01/23 08/04/23 Rx Insulin Glargine/Lixisenatide 30 units SQ DAILY 30 Days #1 pen 07/01/23 08/04/23 Rx [Soliqua 100 Unit-33 Mcg/ml Pen] Metoprolol Succinate (ER) [Toprol 25 mg PO DAILY tab 07/01/23 08/04/23 Rx XL] lisinopriL [Zestril] 2.5 mg PO DAILY tab 07/01/23 08/04/23 Rx Albuterol Nebulized [Ventolin 2.5 mg INHALATION RT-Q4H PRN 07/22/23 08/04/23 History Nebulized] Ipratropium-Albuterol Nebulize 3 ml INHALATION RT-QID 07/22/23 08/04/23 History [Duoneb 0.5 mg-3 mg/3 ml Soln] Atorvastatin [Lipitor] 80 mg PO DAILY 30 Days #30 tab 07/25/23 08/04/23 Rx Furosemide [Lasix] 40 mg PO DAILY 30 Days #30 tab 07/25/23 08/04/23 Rx predniSONE [Deltasone] See Taper PO DIRECTED 08/04/23 08/04/23 History Allergies Allergy/AdvReac Type Severity Reaction Status Date / Time cephalexin Allergy Anaphylaxis Verified 08/04/23 06:54 cephalexin monohydrate Allergy Anaphylaxis Verified 08/04/23 06:54 [From Keflex] Sulfa (Sulfonamide Allergy Rash/Hives Verified 08/04/23 06:54 Antibiotics) Physical Exam Vitals: Vital Signs Temp Pulse Resp BP Pulse Ox FiO2 08/04/23 12:41 118 H 08/04/23 12:28 118 H 40 08/04/23 12:16 98.0 F 08/04/23 11:52 129 H 18 118/64 98 08/04/23 11:30 124 H 22 114/75 100 08/04/23 11:00 126 H 22 107/81 91 L 08/04/23 10:30 126 H 22 100/68 91 L 08/04/23 10:00 122 H 22 109/79 91 L 08/04/23 09:30 142 H 20 117/69 99 08/04/23 09:15 40 08/04/23 08:30 141 H 38 H 118/79 100 08/04/23 08:00 33 H 08/04/23 07:58 130 H 18 143/80 100 08/04/23 06:48 40 08/04/23 06:21 60 08/04/23 06:20 60 08/04/23 05:53 151 H 36 H 132/100 93 L 08/04/23 05:08 131 H 36 H 144/116 Intake and Output 08/03/23 08/04/23 08/04/23 22:59 06:59 14:59 Intake Total 17.064 Balance 17.064 Intake: Intake, IV Titration 17.064 Amount Dexmedetomidine/0.9% NaCl 17.064 (Pmx) 400 mcg In Empty Bag 1 bag @ 0.2 MCG/KG/HR 4.196 mls/hr IV .[id number] [facility] Rx#:[id number] Other: Weight 83.915 kg Results CBC & Chem 7: 08/04/23 05:25 08/04/23 20:28 Labs: Abnormal Lab Results - Last 24 Hours (Table) 08/04/23 08/04/23 08/04/23 Range/Units 05:25 05:25 05:25 WBC 23.0 H (3.8-10.6) k/uL Hgb 10.8 L (11.4-16.0) gm/dL MCV 76.6 L (80.0-100.0) fL MCH 23.0 L (25.0-35.0) pg MCHC 30.0 L (31.0-37.0) g/dL RDW 17.4 H (11.5-15.5) % Plt Count 477 H (150-450) k/uL Neutrophils # 19.3 H (1.3-7.7) k/uL VBG pCO2 (37-51) mmHg VBG HCO3 (24-28) mmol/L Sodium 123 L (137-145) mmol/L Potassium 5.5 H (3.5-5.1) mmol/L Chloride 86 L (98-107) mmol/L Carbon Dioxide 15 L (22-30) mmol/L BUN 41 H (7-17) mg/dL Glucose 831 H* (74-99) mg/dL POC Glucose (mg/dL) (70-110) mg/dL Osmolality (280-301) mosm/kg Plasma Lactic Acid Angel (0.7-2.0) mmol/L AST 13 L (14-36) U/L Urine Protein Trace H (Negative) Urine Glucose (UA) 4+ H (Negative) 08/04/23 08/04/23 08/04/23 Range/Units 05:25 05:25 05:29 WBC (3.8-10.6) k/uL Hgb (11.4-16.0) gm/dL MCV (80.0-100.0) fL MCH (25.0-35.0) pg MCHC (31.0-37.0) g/dL RDW (11.5-15.5) % Plt Count (150-450) k/uL Neutrophils # (1.3-7.7) k/uL VBG pCO2 33 L (37-51) mmHg VBG HCO3 17 L (24-28) mmol/L Sodium (137-145) mmol/L Potassium (3.5-5.1) mmol/L Chloride (98-107) mmol/L Carbon Dioxide (22-30) mmol/L BUN (7-17) mg/dL Glucose (74-99) mg/dL POC Glucose (mg/dL) (70-110) mg/dL Osmolality 317 H (280-301) mosm/kg Plasma Lactic Acid Angel 6.8 H* (0.7-2.0) mmol/L AST (14-36) U/L Urine Protein (Negative) Urine Glucose (UA) (Negative) 08/04/23 08/04/23 08/04/23 Range/Units 08:56 09:14 10:18 WBC (3.8-10.6) k/uL Hgb (11.4-16.0) gm/dL MCV (80.0-100.0) fL MCH (25.0-35.0) pg MCHC (31.0-37.0) g/dL RDW (11.5-15.5) % Plt Count (150-450) k/uL Neutrophils # (1.3-7.7) k/uL VBG pCO2 (37-51) mmHg VBG HCO3 (24-28) mmol/L Sodium (137-145) mmol/L Potassium (3.5-5.1) mmol/L Chloride (98-107) mmol/L Carbon Dioxide (22-30) mmol/L BUN (7-17) mg/dL Glucose (74-99) mg/dL POC Glucose (mg/dL) >600 H >600 H (70-110) mg/dL Osmolality (280-301) mosm/kg Plasma Lactic Acid Angel 5.5 H* (0.7-2.0) mmol/L AST (14-36) U/L Urine Protein (Negative) Urine Glucose (UA) (Negative) 08/04/23 08/04/23 Range/Units 11:43 12:28 WBC (3.8-10.6) k/uL Hgb (11.4-16.0) gm/dL MCV (80.0-100.0) fL MCH (25.0-35.0) pg MCHC (31.0-37.0) g/dL RDW (11.5-15.5) % Plt Count (150-450) k/uL Neutrophils # (1.3-7.7) k/uL VBG pCO2 (37-51) mmHg VBG HCO3 (24-28) mmol/L Sodium (137-145) mmol/L Potassium (3.5-5.1) mmol/L Chloride (98-107) mmol/L Carbon Dioxide (22-30) mmol/L BUN (7-17) mg/dL Glucose (74-99) mg/dL POC Glucose (mg/dL) >600 H 569 H (70-110) mg/dL Osmolality (280-301) mosm/kg Plasma Lactic Acid Angel (0.7-2.0) mmol/L AST (14-36) U/L Urine Protein (Negative) Urine Glucose (UA) (Negative) Assessment and Plan Plan: 1patient with a SIRS/sepsis in this patient with a leukocytosis and did have elevated lactic acid and tachycardia, patient presented hospital with agitation weakness some shortness of breath which is likely multifactorial patient did have some acute infiltrate on chest x-ray and concern for possible aspiration pneumonitis not entirely excluded currently no other obvious focus of infection, patient did have a negative UA abdominous of clinical examination no evidence of any joint swelling or redness 2-we will try to obtain a sputum for Gram stain culture check a CRP and a procalcitonin 3-continue Zosyn 3.375 g every 8 hours We will follow on clinical condition and cultures to further adjust medication if needed Thank you for this consultation we will follow the patient along with you Dictation was produced using [employer] dictation software. please excuse any grammatical, word or spelling errors. Time with Patient: Greater than 30
--- NOTE | 2023-08-04 22:03 | XR ---
EXAM: XR chest 1V portable CLINICAL INDICATION:Female, 72 years old with history of Tube placement; [facility] COMPARISON: Chest x-ray earlier today, 5:25 AM, and 07/22/2023 TECHNIQUE: Chest single view. FINDINGS: Lines/tubes/devices: ET tube appears low in position, with the distal tip pointed towards the proxima l right mainstem bronchus. NG/OG tube extends into the left abdomen with the tip beyond the field of view. Cardiomediastinum: Cardiac silhouette appears stable, moderately enlarged. Stable mediastinal silhouette. Vasculature: Mild pulmonary vascular congestion. Lungs/pleura: Scattered bilateral interstitial and airspace opacities bilaterally, mostly in the right mid to upper lung zones, similar to previous. Suspect small left pleural effusion with left basilar infiltrate or atelectasis. No visible pneumothorax. Bones/soft tissues: Bony thorax appears grossly intact as seen with mild degenerative changes noted. Post CABG changes an d probable left atrial appendage clip redemonstrated. Regional soft tissues negative for acute proces s. IMPRESSION: 1. ET tube low in position, with the distal tip pointed towards the proximal right mainstem bronchus . Recommend retraction about 4 cm. 2. NG/OG tube extends into the left abdomen with the tip beyond the field of view. 3. Moderate cardiomegaly and post-CABG changes, with mild pulmonary vascular congestion as before. 4. Scattered bilateral interstitial and airspace opacities bilaterally, mostly in the right mid to u pper lung zones, similar to previous. This could reflect edema and/or infectious/inflammatory process . 5. Suspect small left pleural effusion with left basilar infiltrate or atelectasis. Dr. Hong attempted to call these findings to the ICU on 08/04/2023 10:00 PM via telephone, with no answer.
[2023-08-04 22:08] LABS: Glucose,Whole Blood 283 mg/dL (70-110)
[2023-08-04 22:14] LABS: ABG Base Excess -4.2 mmol/L; ABG HCO3 21 mmol/L (21-25); ABG PCO2 38 mmHg (35-45); ABG PH 7.36 (7.35-7.45); ABG PO2 286 mmHg (83-108); ABG TCO2 22 mmol/L (19-24)
[2023-08-04 22:17] LABS: Allen Test Performed? No
[2023-08-04 23:08] LABS: Glucose,Whole Blood 293 mg/dL (70-110)
[2023-08-05 00:08] LABS: Glucose,Whole Blood 202 mg/dL (70-110)
[2023-08-05] MEDS: PIPERACILLIN-TAZOBACTAM 3.375 GM in SODIUM CHLORIDE 0.9% 100 ML IVPB SCH ×3 (00:09→15:18)
[2023-08-05] MEDS: DEXMEDETOMIDINE/0.9% NACL(PMX) 400 MCG in EMPTY BAG 1 BAG IV SCH ×2 (00:09→05:46)
[2023-08-05 01:05] LABS: Glucose,Whole Blood 308 mg/dL (70-110)
[2023-08-05 02:02] LABS: Glucose,Whole Blood 264 mg/dL (70-110)
[2023-08-05 02:42] LABS: African American GFR (CKD) >90 (>60 ml/min/1.73 sqM); Anion Gap 13 mmol/L; Blood Urea Nitrogen 29 mg/dL (7-17); Calcium 8.4 mg/dL (8.4-10.2); Carbon Dioxide 18 mmol/L (22-30); Chloride 106 mmol/L (98-107); Glucose 268 mg/dL (74-99); Non-African American GFR(CKD) 89 (>60 ml/min/1.73 sqM); Phosphorus 3.1 mg/dL (2.5-4.5); Potassium 4.3 mmol/L (3.5-5.1); Sodium 137 mmol/L (137-145)
[2023-08-05 03:09] LABS: Glucose,Whole Blood 262 mg/dL (70-110)
[2023-08-05] MEDS: NOREPINEPHRINE 4 MG in SODIUM CHLORIDE 0.9% 250 ML IV SCH ×3 (03:09→18:58)
[2023-08-05 04:06] LABS: Glucose,Whole Blood 282 mg/dL (70-110)
[2023-08-05 04:26] LABS: Anisocytosis Slight; Basophils % (A) 0 %; Eosinophils % (A) 0 %; HCT 33.6 % (34.0-46.0); HGB 10.4 gm/dL (11.4-16.0); Hypochromasia Moderate; Lymphocytes # (A) 1.5 k/uL (1.0-4.8); Lymphocytes % (A) 6 %; MCH 22.6 pg (25.0-35.0); MCHC 31.1 g/dL (31.0-37.0); MCV 72.6 fL (80.0-100.0); Mean Platelet Volume 8.4; Microcytosis Moderate; Monocytes # (A) 0.7 k/uL (0-1.0); Monocytes % (A) 3 %; Neutrophils # (A) 21.5 k/uL (1.3-7.7); Neutrophils % (A) 90 %; Platelet Count 371 k/uL (150-450); RBC 4.62 m/uL (3.80-5.40); RDW 17.2 % (11.5-15.5); WBC 23.8 k/uL (3.8-10.6)
[2023-08-05 04:44] LABS: Appearance,Urine Cloudy (Clear); Bacteria,Urine Rare /hpf; Bilirubin,Urine Negative (Negative); Blood,Urine Negative (Negative); Color,Urine Colorless; Glucose,Urine (UA) Trace (Negative); Hyaline Casts,Urine 6 /lpf (0-2); Ketones,Urine Negative (Negative); Leukocyte Esterase,Urine Negative (Negative); Nitrite,Urine Negative (Negative); Protein,Urine Negative (Negative); RBC,Urine <1 /hpf (0-5); Specific Gravity,Urine 1.013 (1.001-1.035); Uric Acid Crystals,Urine Rare /hpf; Urobilinogen,Urine <2.0 mg/dL (<2.0); WBC,Urine <1 /hpf (0-5)
[2023-08-05] MEDS: methylPREDNISolone SOD SUCCI 40 MG/ML 1 ML VIAL IV SCH ×2 (04:44→15:17)
[2023-08-05 04:49] LABS: African American GFR (CKD) >90 (>60 ml/min/1.73 sqM); Anion Gap 13 mmol/L; Blood Urea Nitrogen 26 mg/dL (7-17); Calcium 8.2 mg/dL (8.4-10.2); Carbon Dioxide 19 mmol/L (22-30); Chloride 106 mmol/L (98-107); Glucose 267 mg/dL (74-99); Non-African American GFR(CKD) 87 (>60 ml/min/1.73 sqM); Phosphorus 2.6 mg/dL (2.5-4.5); Potassium 4.2 mmol/L (3.5-5.1); Sodium 138 mmol/L (137-145)
--- NOTE | 2023-08-05 04:54 | XR ---
EXAM: XR Chest, 1 View CLINICAL HISTORY: ET tube placement TECHNIQUE: Frontal view of the chest. COMPARISON: Earlier the same day. FINDINGS/IMPRESSION: Cannot adequately assess the location of the ET tube tip, likely just above the nahun. No other significant interval change. Repeat study recommended. <MYCVCSECTION> Communications: 08/05/23 04:58 Verify Receipt Verified receipt with Nurse Rainey on 08/05 04:58 (-04:00)
--- NOTE | 2023-08-05 04:56 | US ---
EXAM: US Duplex Bilateral Lower Extremities Veins CLINICAL HISTORY: Possible DVT TECHNIQUE: Real-time duplex ultrasound scan of the bilateral lower extremity veins integrating B-mode two-dimensional vascular structure, Doppler spectral analysis, color flow Doppler imaging and compression. COMPARISON: No relevant prior studies available. FINDINGS: Right deep veins: Unremarkable. No DVT in the right common femoral, femoral, proximal deep femoral or popliteal veins. The veins demonstrate normal color flow, are normally compressible, with normal phasic flow and/or augmentation response. Right superficial veins: Unremarkable. No thrombus in the visualized right great saphenous vein. Left deep veins: Unremarkable. No DVT in the left common femoral, femoral, proximal deep femoral or popliteal veins. The veins demonstrate normal color flow, are normally compressible, with normal phasic flow and/or augmentation response. Left superficial veins: Unremarkable. No thrombus in the visualized left great saphenous vein. Soft tissues: Probable left-sided complex Mederos's cyst, measuring 5.7 x 4.1 x 2.1 cm, with internal hemorrhage. IMPRESSION: 1. Probable left-sided complex Mederos's cyst, measuring 5.7 cm, with internal hemorrhage. 2. No evidence of DVT.
[2023-08-05 05:03] LABS: Glucose,Whole Blood 274 mg/dL (70-110)
[2023-08-05] MEDS: PANTOPRAZOLE 40 MG TABLET PO SCH (05:21)
[2023-08-05] MEDS: D5-0.45% NACL WITH KCL 20MEQ/L 1,000 ML IV SCH (05:46)
[2023-08-05 05:52] LABS: Glucose,Whole Blood 250 mg/dL (70-110)
[2023-08-05] MEDS ORDERED: VANCOMYCIN 1,500 MG in SODIUM CHLORIDE 0.9% 500 ML 500 ML IVPB SCH (06:00)
[2023-08-05 06:24] LABS: ABG Base Excess -1.6 mmol/L; ABG HCO3 23 mmol/L (21-25); ABG Oxygen Saturation 99.7 % (94-97); ABG PCO2 33 mmHg (35-45); ABG PH 7.44 (7.35-7.45); ABG PO2 186 mmHg (83-108); ABG TCO2 24 mmol/L (19-24)
[2023-08-05 06:26] LABS: Allen Test Performed? No
[2023-08-05 06:59] LABS: Glucose,Whole Blood 227 mg/dL (70-110)
--- NOTE | 2023-08-05 08:05 | XR ---
EXAMINATION TYPE: XR chest 1V portable DATE OF EXAM: 08/05/2023 COMPARISON: 08/04/2023 HISTORY: SOB, Follow Up FINDINGS: Indwelling tubes and catheters are unchanged. Postoperative changes of CABG. Persistent pulmonary venous congestion and upper lobe infiltrates. Continued left lower lobe atelecta sis with pleural effusion. Endotracheal tube is 4.1 cm from the nahun. Stable appearance of the cardio-mediastinal structures at this time. Pleural effusion unchanged. IMPRESSION: 1. Persistent pulmonary venous congestion and upper lobe infiltrates. Continued left lower lobe atel ectasis with pleural effusion. Endotracheal tube is 4.1 cm from the nahun.
[2023-08-05 08:06] LABS: Glucose,Whole Blood 248 mg/dL (70-110)
[2023-08-05] MEDS: IPRATROPIUM-ALBUTEROL 3 ML NEB INHALATION SCH ×4 (08:18→20:39)
[2023-08-05] MEDS: FORMOTEROL FUMARATE 20 MCG/2 ML NEBU INHALATION SCH ×2 (08:18→20:39)
[2023-08-05] MEDS: BUDESONIDE 1 MG/2 ML NEBU INHALATION SCH ×2 (08:18→20:40)
[2023-08-05 09:13] LABS: Glucose,Whole Blood 256 mg/dL (70-110)
[2023-08-05] MEDS: ENOXAPARIN 40 MG/0.4 ML SYRINGE SQ SCH (09:17)
[2023-08-05] MEDS: SODIUM CHLORIDE 0.9% 1,000 ML IV SCH ×2 (09:18→18:59)
--- NOTE | 2023-08-05 09:31 | P.HPIM ---
History of Present Illness H&P Date: 08/04/23 Chief Complaint: Altered mental status changes possible DKA possible sepsis This is a 72-year-old female patient who presented to the ER with multiple complaints. Patient is currently sedated on BiPAP all information is obtained from medical record no family at bedside Upon arrival to the ER it appears that patient came very agitated and family returned her back to the ER according to ER reports complaints upon arrival include chest discomfort coughing nausea hyperglycemia anxiety and diaphoresis. Per records patient symptoms have been occurring over the past 2 days with elevated blood sugars. Patient has a past medical history of asthma, coronary artery disease with coronary artery bypass graft surgery, heart failure, COPD, diabetes mellitus, fibromyalgia, hyp erlipidemia, hypertension, diabetes mellitus, sleep apnea and ex-smoker. Chest x-ray performed showing cardiomegaly with mild central vascular congestion and new right upper to midlung acute infiltrate and/or edema. Head CT completed showing no acute intracranial hemorrhage or midline shift there is mild diffuse age-related cerebral atrophy and chronic small vessel ischemic changes significant change from prior. Thoracic aorta CT performed showing borderline aneurysmal dilation of the ascending thoracic aorta the remainder daily order is of normal caliber no dissection of intra-mural hematoma seen. Blood sugar upon arrival 831, sodium 123, potassium 5.5, lactic acid 6.8, WBC 23.0. Patient also noted to have significant tachycardia initially elevated at 151. Patient was given multiple medications in ER due to agitation. Patient was placed on BiPAP. Patient was started on IV Zosyn, IV Solu-Medrol and insulin drip. Patient will be admitted to the intensive care unit patient also started on Precedex per critical care services. Will consult infectious disease due to sepsis. Drug screen ordered repeat labs ordered. Will also consult cardiology services due to initial complaints of chest pain and elevated heart rate. 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 Poly substance abuse 07/19/21 admitted for Acute delirium History of Any Multi-Drug Resistant Organisms: None Reported Past Surgical History: Cholecystectomy, Coronary Bypass/CABG, Hernia Repair, Orthopedic Surgery, Tonsillectomy, Tubal Ligation Additional Past Surgical History / Comment(s): LEFT KNEE ARTHROSCOPY, BMT AND MYRINGOPLASTY, umbilical hernia repair, CABG 2020 Past Anesthesia/Blood Transfusion Reactions: No Reported Reaction Additional Past Anesthesia/Blood Transfusion Reaction / Comment(s): STATES AFTER LAST EAR SX (11/2013) HAD SORE MUSCLES AND WAS WEAK FOR 3-4 DAYS Past Psychological History: Unable to Obtain Smoking Status: Former smoker Past Alcohol Use History: None Reported Past Drug Use History: None Reported, Marijuana - Past Family History Sister(s) Family Medical History: Cancer Brother(s) Family Medical History: Cancer Additional Family Medical History / Comment(s): brother had heart valve replacem ent Mother Family Medical History: Chest Pain / Angina, Diabetes Mellitus, Hypertension Father History Unknown: Yes Additional Family Medical History / Comment(s): , "had bad lungs" per patient, was a smoker Medications and Allergies Home Medications Medication Instructions Recorded Confirmed Type traMADol HCl [Ultram] 50 mg PO TID PRN 11/04/15 08/04/23 History traZODone HCL [Desyrel] 50 mg PO HS PRN 06/11/23 08/04/23 History Aspirin 81 mg PO DAILY tab 07/01/23 08/04/23 Rx Clopidogrel [Plavix] 75 mg PO DAILY tab 07/01/23 08/04/23 Rx Insulin Glargine/Lixisenatide 30 units SQ DAILY 30 Days #1 pen 07/01/23 08/04/23 Rx [Soliqua 100 Unit-33 Mcg/ml Pen] Metoprolol Succinate (ER) [Toprol 25 mg PO DAILY tab 07/01/23 08/04/23 Rx XL] lisinopriL [Zestril] 2.5 mg PO DAILY tab 07/01/23 08/04/23 Rx Albuterol Nebulized [Ventolin 2.5 mg INHALATION RT-Q4H PRN 07/22/23 08/04/23 History Nebulized] Ipratropium-Albuterol Nebulize 3 ml INHALATION RT-QID 07/22/23 08/04/23 History [Duoneb 0.5 mg-3 mg/3 ml Soln] Atorvastatin [Lipitor] 80 mg PO DAILY 30 Days #30 tab 07/25/23 08/04/23 Rx Furosemide [Lasix] 40 mg PO DAILY 30 Days #30 tab 07/25/23 08/04/23 Rx predniSONE [Deltasone] See Taper PO DIRECTED 08/04/23 08/04/23 History Allergies Allergy/AdvReac Type Severity Reaction Status Date / Time cephalexin Allergy Anaphylaxis Verified 08/04/23 06:54 cephalexin monohydrate Allergy Anaphylaxis Verified 08/04/23 06:54 [From Keflex] Sulfa (Sulfonamide Allergy Rash/Hives Verified 08/04/23 06:54 Antibiotics) Physical Exam Vitals: Vital Signs Pulse Resp BP Pulse Ox FiO2 08/04/23 09:15 40 08/04/23 07:58 130 H 18 143/80 100 08/04/23 06:48 40 08/04/23 06:21 60 08/04/23 06:20 60 08/04/23 05:53 151 H 36 H 132/100 93 L 08/04/23 05:08 131 H 36 H 144/116 Intake and Output 08/03/23 08/04/23 08/04/23 22:59 06:59 14:59 Intake Total 1.539 Balance 1.539 Intake: Intake, IV Titration 1.539 Amount Dexmedetomidine/0.9% NaCl 1.539 (Pmx) 400 mcg In Empty Bag 1 bag @ 0.2 MCG/KG/HR 4.196 mls/hr IV .[id number] [facility] Rx#:[id number] Other: Weight 83.915 kg Head normocephalic Neck supple Lungs clear to auscultation bilaterally no wheezing or crackles Heart regular rate and rhythm S1-S2, no rub or gallop Abdomen is soft nontender nondistended positive bowel sounds no hepatosplenomegaly Extremities no edema Neuro patient is currently resting on BiPAP. Does wake up but quickly falls back to sleep Results CBC & Chem 7: 08/04/23 05:25 08/04/23 05:25 Labs: Abnormal Lab Results - Last 24 Hours (Table) 08/04/23 08/04/23 08/04/23 Range/Units 05:25 05:25 05:25 WBC 23.0 H (3.8-10.6) k/uL Hgb 10.8 L (11.4-16.0) gm/dL MCV 76.6 L (80.0-100.0) fL MCH 23.0 L (25.0-35.0) pg MCHC 30.0 L (31.0-37.0) g/dL RDW 17.4 H (11.5-15.5) % Plt Count 477 H (150-450) k/uL Neutrophils # 19.3 H (1.3-7.7) k/uL VBG pCO2 (37-51) mmHg VBG HCO3 (24-28) mmol/L Sodium 123 L (137-145) mmol/L Potassium 5.5 H (3.5-5.1) mmol/L Chloride 86 L (98-107) mmol/L Carbon Dioxide 15 L (22-30) mmol/L BUN 41 H (7-17) mg/dL Glucose 831 H* (74-99) mg/dL POC Glucose (mg/dL) (70-110) mg/dL Osmolality (280-301) mosm/kg Plasma Lactic Acid Angel (0.7-2.0) mmol/L AST 13 L (14-36) U/L Urine Protein Trace H (Negative) Urine Glucose (UA) 4+ H (Negative) 08/04/23 08/04/23 08/04/23 Range/Units 05:25 05:25 05:29 WBC (3.8-10.6) k/uL Hgb (11.4-16.0) gm/dL MCV (80.0-100.0) fL MCH (25.0-35.0) pg MCHC (31.0-37.0) g/dL RDW (11.5-15.5) % Plt Count (150-450) k/uL Neutrophils # (1.3-7.7) k/uL VBG pCO2 33 L (37-51) mmHg VBG HCO3 17 L (24-28) mmol/L Sodium (137-145) mmol/L Potassium (3.5-5.1) mmol/L Chloride (98-107) mmol/L Carbon Dioxide (22-30) mmol/L BUN (7-17) mg/dL Glucose (74-99) mg/dL POC Glucose (mg/dL) (70-110) mg/dL Osmolality 317 H (280-301) mosm/kg Plasma Lactic Acid Angel 6.8 H* (0.7-2.0) mmol/L AST (14-36) U/L Urine Protein (Negative) Urine Glucose (UA) (Negative) 08/04/23 08/04/23 08/04/23 Range/Units 08:56 09:14 10:18 WBC (3.8-10.6) k/uL Hgb (11.4-16.0) gm/dL MCV (80.0-100.0) fL MCH (25.0-35.0) pg MCHC (31.0-37.0) g/dL RDW (11.5-15.5) % Plt Count (150-450) k/uL Neutrophils # (1.3-7.7) k/uL VBG pCO2 (37-51) mmHg VBG HCO3 (24-28) mmol/L Sodium (137-145) mmol/L Potassium (3.5-5.1) mmol/L Chloride (98-107) mmol/L Carbon Dioxide (22-30) mmol/L BUN (7-17) mg/dL Glucose (74-99) mg/dL POC Glucose (mg/dL) >600 H >600 H (70-110) mg/dL Osmolality (280-301) mosm/kg Plasma Lactic Acid Angel 5.5 H* (0.7-2.0) mmol/L AST (14-36) U/L Urine Protein (Negative) Urine Glucose (UA) (Negative) Assessment and Plan Assessment: 1. Altered mental status changes 2. Hyperglycemia possible HHS or DKA. Patient started on insulin drip 3. Sepsis with elevated lactic acid and WBC. 4. Pneumonia. Patient started on IV Zosyn 5. Electrolyte imbalance 6. Tachycardia. Cardiology service is consulted 7. Acute exacerbation of COPD 8. Underlying history of coronary artery disease with previous history of angioplasty and stent and coronary artery bypass graft surgery 9. History of non-compliance with medication 10. History of essential hypertension 11. History of hyperlipidemia 12. History of insulin-dependent diabetes mellitus 13. History of tobacco and drug use DVT prophylaxis Lovenox. GI prophylaxis Protonix Critical care services, infectious disease and cardiology services are consulted Patient started on insulin drip Patient started on IV antibiotics Patient started on IV steroids Blood culture ordered Patient to be admitted to the intensive care unit home medications currently on hold due to patient unable to swallow at this time Time with Patient: Greater than 30 (Greater than 60% of the total time spent in counseling and coordination of care)
[2023-08-05 10:02] LABS: African American GFR (CKD) >90 (>60 ml/min/1.73 sqM); Anion Gap 6 mmol/L; Blood Urea Nitrogen 20 mg/dL (7-17); Calcium 8.2 mg/dL (8.4-10.2); Carbon Dioxide 22 mmol/L (22-30); Chloride 108 mmol/L (98-107); Glucose 236 mg/dL (74-99); Non-African American GFR(CKD) 88 (>60 ml/min/1.73 sqM); Phosphorus 2.4 mg/dL (2.5-4.5); Potassium 4.2 mmol/L (3.5-5.1); Sodium 136 mmol/L (137-145)
[2023-08-05 10:13] LABS: Glucose,Whole Blood 231 mg/dL (70-110)
[2023-08-05 10:38] LABS: Urine Alcohol Negative (Negative); Urine Barbiturate Negative (Negative); Urine Cocaine Negative (Negative); Urine Methadone Negative (Negative); Urine Opiates Negative (Negative); Urine Phencyclidine Negative (Negative)
[2023-08-05 11:01] LABS: Glucose,Whole Blood 243 mg/dL (70-110)
[2023-08-05] MEDS ORDERED: POTAS-SOD-PHOS 278-164-250 MG 1 EACH PACKET PO ONE (11:12)
[2023-08-05] MEDS ORDERED: Phosphorus Replacement Protoco 1 EACH MISC MISCELLANE PRN (11:12)
--- NOTE | 2023-08-05 11:24 | XR ---
EXAMINATION TYPE: XR chest 1V portable DATE OF EXAM: 08/05/2023 COMPARISON: 08/05/23 HISTORY: SOB, Follow Up FINDINGS: Indwelling tubes and catheters are unchanged. Right IJ central venous line with its distal tip overly ing the SVC. No evidence for pneumothorax. No change in bibasilar opacities. Stable appearance of the cardio-mediastinal structures at this time. Pleural effusion unchanged. IMPRESSION: 1. Stable portable chest. Clinical correlation and follow up until resolution is recommended.
[2023-08-05] MEDS ORDERED: MAGNESIUM SULFATE-D5W PMX 1 GM in DEXTROSE/WATER 1 100ML.BAG IVPB ONE (11:45)
[2023-08-05] MEDS ORDERED: Magnesium Replacement Protocol 1 EACH MISC MISCELLANE PRN (11:45)
[2023-08-05 12:06] LABS: Glucose,Whole Blood 228 mg/dL (70-110)
--- NOTE | 2023-08-05 12:30 | P.PN ---
Subjective Progress Note Date: 08/05/23 Principal diagnosis: Acute hypoxic respiratory failure, multifactorial requiring intubation and mechanical ventilation on 08/04/2023 This is a 72-year-old female with history of multiple medical problems including severe COPD/asthma patient was recently in the hospital and she was seen by Dr. Murry on consultation. Patient was brought into the ER and early this morning with multiple complaints, however the patient herself is a very poor historian, and could not get information from the patient. But according to the chart the patient arrived to the ER, she was extremely agitated, she was also complaining of some vague chest discomfort, cough, nausea and vomiting, she was also sweating profusely upon arrival. Patient was noted to have extremely elevated blood sugar however she had negative ketones. When I saw the patient she was not answering any questions and was not cooperative, patient was on BiPAP. Chest x-ray showed cardiomegaly, mild pulmonary vascular congestion, questionable right upper lobe infiltrate her labs showed evidence of leukocytosis with WBC count of 23.0 hemoglobin 10.8. Sodium was noted to be low at 123 however this is a pseudohyponatremia because her blood sugar was a 51. Bicarb was noted to be 15 and she had anion gap of 22. Urine was negative for ketones. Troponin was slightly elevated. At any rate I evaluated the patient in the ER, recommended icy admission once a bed becomes available in the meantime we will place the patient on the DKA protocol although the patient has what seems to be a hyperosmolar nonketotic state. With hyperglycemia. And acute anion gap metabolic acidosis. Again her ketones were negative in the urine. Patient was also placed on antibiotics, and bronchodilators follow-up ABG was ordered Patient was reevaluated today on 08/05/2023. Patient was transferred to the ICU from the ER early evening yesterday, and upon arrival to the ICU patient was hypoxic, agitated and restless, and her ABG was quite abnormal. I was notified about this patient, and I recommended immediate intubation. Patient was placed on mechanical ventilation, and overnight she was placed on norepinephrine. Remains on norepinephrine at 0.1 mcg/kg/m mostly for low blood pressure. Patient is now on assist control rate of 20, volume 500 FiO2 50% and PEEP of 5 ABG showed a pO2 of 186 pCO2 33 pH of 7.44. She was on Precedex which I have discontinued. And I will keep the patient on propofol for now. Considering the patient is on norepinephrine I went ahead and placed a right subclavian triple- lumen catheter. Patient's sugar is much better controlled today, she was still on insulin drip which I have recommended tapering down and changing her main IV fluid to 0.9 normal saline at 100 mL per hour. Empirically the patient is on Zosyn, chest x-ray showed dramatic improvement in her right upper lobe abnor mality however she does have bibasilar atelectasis. Questionable aspiration is possible but felt to be less likely. Cultures are pending. Venous Doppler of the lower extremities was negative. D-dimer was slightly elevated at 2.23 and drug screen was negative except for cannabinoids. Urinalysis is unremarkable. Lactic acid on admission was 3.6 but now it's 2.0 WBC count is 23.8 hemoglobin is 10.4, blood sugar is 236 this morning, anion gap is only 6. Objective - Vital Signs Vital signs: Vital Signs Temp 98.8 F 08/05/23 12:00 Pulse 64 08/05/23 12:00 Resp 20 08/05/23 12:00 BP 113/56 08/05/23 12:00 Pulse Ox 100 08/05/23 12:00 FiO2 40 08/05/23 12:00 Intake & Output 08/04/23 08/05/23 08/05/23 18:59 06:59 18:59 Intake Total 323.941 8027.446 1145.250 Output Total 600 1555 360 Balance -805.344 4142.446 785.250 Weight 85.8 kg 84.9 kg Intake: IV 820 .9 KVO 20 D5-0.45% NaCl with KCl 300 20Meq/l 1,000 ml @ 150 mls/hr IV .Q6H40M [facility] Rx# :[id number] Piperacillin-Tazobactam 3 100 .375 gm In Sodium Chloride 0.9% 100 ml @ 25 mls/hr IVPB Q8HR [facility] Rx# :[id number] Sodium Chloride 0.9% 1, 400 000 ml @ 100 mls/hr IV . Q10H [facility] Rx#:[id number] Intake, IV Titration 343.376 2333.446 295.250 Amount D5-0.45% NaCl with KCl 1050 20Meq/l 1,000 ml @ 150 mls/hr IV .Q6H40M [facility] [place] Rx# :[id number] D5-0.45% NaCl with KCl 750 20Meq/l 1,000 ml @ 50 mls /hr IV .Q20H [facility] [place] Rx#: [id number] Dexmedetomidine/0.9% NaCl 92.761 101.504 68.671 (Pmx) 400 mcg In Empty Bag 1 bag @ 0.2 MCG/KG/HR 4.196 mls/hr IV .[id number] [facility] [place] Rx#:[id number] Insulin Regular 100 unit 72.461 31.636 In Sodium Chloride 0.9% 100 ml @ 0.1 UNITS/KG/HR 8.475 mls/hr IV .[id number] [facility] [place] Rx#:[id number] Norepinephrine 4 mg In 359.894 133.893 Sodium Chloride 0.9% 250 ml @ 0.03 MCG/KG/MIN 9. 591 mls/hr IV .Q24H [facility] [place] Rx#:[id number] Piperacillin-Tazobactam 3 25 .375 gm In Sodium Chloride 0.9% 100 ml @ 200 mls/hr IVPB [facility] Rx#:[id number] Piperacillin-Tazobactam 3 75 .375 gm In Sodium Chloride 0.9% 100 ml @ 25 mls/hr IVPB Q8HR [facility] [place] Rx# :[id number] propofoL 1,000 mg In 185.412 92.686 Empty Bag 1 bag @ 15 MCG/ KG/MIN 7.552 mls/hr IV . [id number] [facility] [place] Rx#:[id number] Other 30 Output: Urine 600 1555 360 Other: Voiding Method Indwelling Catheter ABP, PAP, CO, CI - Last Documented Arterial Blood Pressure 124/81 - Exam Physical Exam: Revealed 72-year-old female intubated and mechanically ventilated sedated not in distress. Head: Atraumatic, normocephalic. Endotracheal tube and orogastric tube are intact. HEENT:[Neck is supple.] [No neck masses.] [No thyromegaly.] [No JVD.] Chest: Crackles at the bases no rhonchi and no wheezes Cardiac Exam: [Normal S1 and S2, no S3 gallop, no murmur.] Abdomen: [Obese, Soft, nontender, no megaly, no rebound, no guarding, normal bowel sounds.] Extremities: [No clubbing, no edema, no cyanosis.] Neurological Exam: Could not assess patient is sedated, on propofol. Psychiatric: Could not assess patient is sedated, on propofol - Labs CBC & Chem 7: 08/05/23 04:05 08/05/23 09:40 Labs: Abnormal Lab Results - Last 24 Hours (Table) 08/04/23 08/04/23 08/04/23 Range/Units 07:58 12:28 13:32 WBC (3.8-10.6) k/uL Hgb (11.4-16.0) gm/dL Hct (34.0-46.0) % MCV (80.0-100.0) fL MCH (25.0-35.0) pg RDW (11.5-15.5) % Neutrophils # (1.3-7.7) k/uL D-Dimer (<0.60) mg/L FEU ABG pH (7.35-7.45) ABG pCO2 (35-45) mmHg ABG pO2 (83-108) mmHg ABG HCO3 (21-25) mmol/L ABG Total CO2 (19-24) mmol/L ABG O2 Saturation (94-97) % Sodium (137-145) mmol/L Chloride (98-107) mmol/L Carbon Dioxide (22-30) mmol/L BUN (7-17) mg/dL Glucose (74-99) mg/dL POC Glucose (mg/dL) 569 H 539 H (70-110) mg/dL Plasma Lactic Acid Angel (0.7-2.0) mmol/L Calcium (8.4-10.2) mg/dL Phosphorus (2.5-4.5) mg/dL Urine Appearance (Clear) Urine Glucose (UA) (Negative) Uric Acid Crystals (None) /hpf Urine Bacteria (None) /hpf Hyaline Casts (0-2) /lpf U Cannabinoids Screen Positive A (Negative) 08/04/23 08/04/23 08/04/23 Range/Units 13:57 14:28 15:21 WBC (3.8-10.6) k/uL Hgb (11.4-16.0) gm/dL Hct (34.0-46.0) % MCV (80.0-100.0) fL MCH (25.0-35.0) pg RDW (11.5-15.5) % Neutrophils # (1.3-7.7) k/uL D-Dimer (<0.60) mg/L FEU ABG pH (7.35-7.45) ABG pCO2 (35-45) mmHg ABG pO2 (83-108) mmHg ABG HCO3 (21-25) mmol/L ABG Total CO2 (19-24) mmol/L ABG O2 Saturation (94-97) % Sodium (137-145) mmol/L Chloride (98-107) mmol/L Carbon Dioxide (22-30) mmol/L BUN (7-17) mg/dL Glucose (74-99) mg/dL POC Glucose (mg/dL) 437 H 363 H (70-110) mg/dL Plasma Lactic Acid Angel 3.1 H* (0.7-2.0) mmol/L Calcium (8.4-10.2) mg/dL Phosphorus (2.5-4.5) mg/dL Urine Appearance (Clear) Urine Glucose (UA) (Negative) Uric Acid Crystals (None) /hpf Urine Bacteria (None) /hpf Hyaline Casts (0-2) /lpf U Cannabinoids Screen (Negative) 08/04/23 08/04/23 08/04/23 Range/Units 15:45 17:32 17:33 WBC (3.8-10.6) k/uL Hgb (11.4-16.0) gm/dL Hct (34.0-46.0) % MCV (80.0-100.0) fL MCH (25.0-35.0) pg RDW (11.5-15.5) % Neutrophils # (1.3-7.7) k/uL D-Dimer (<0.60) mg/L FEU ABG pH (7.35-7.45) ABG pCO2 (35-45) mmHg ABG pO2 (83-108) mmHg ABG HCO3 (21-25) mmol/L ABG Total CO2 (19-24) mmol/L ABG O2 Saturation (94-97) % Sodium (137-145) mmol/L Chloride (98-107) mmol/L Carbon Dioxide 20 L (22-30) mmol/L BUN 39 H (7-17) mg/dL Glucose 227 H (74-99) mg/dL POC Glucose (mg/dL) 191 H (70-110) mg/dL Plasma Lactic Acid Angel 3.3 H* (0.7-2.0) mmol/L Calcium (8.4-10.2) mg/dL Phosphorus 4.6 H (2.5-4.5) mg/dL Urine Appearance (Clear) Urine Glucose (UA) (Negative) Uric Acid Crystals (None) /hpf Urine Bacteria (None) /hpf Hyaline Casts (0-2) /lpf U Cannabinoids Screen (Negative) 08/04/23 08/04/23 08/04/23 Range/Units 19:34 19:43 20:16 WBC (3.8-10.6) k/uL Hgb (11.4-16.0) gm/dL Hct (34.0-46.0) % MCV (80.0-100.0) fL MCH (25.0-35.0) pg RDW (11.5-15.5) % Neutrophils # (1.3-7.7) k/uL D-Dimer (<0.60) mg/L FEU ABG pH 7.34 L (7.35-7.45) ABG pCO2 (35-45) mmHg ABG pO2 26 L* (83-108) mmHg ABG HCO3 (21-25) mmol/L ABG Total CO2 25 H (19-24) mmol/L ABG O2 Saturation 36.5 L (94-97) % Sodium (137-145) mmol/L Chloride (98-107) mmol/L Carbon Dioxide (22-30) mmol/L BUN (7-17) mg/dL Glucose (74-99) mg/dL POC Glucose (mg/dL) 222 H 238 H (70-110) mg/dL Plasma Lactic Acid Angel (0.7-2.0) mmol/L Calcium (8.4-10.2) mg/dL Phosphorus (2.5-4.5) mg/dL Urine Appearance (Clear) Urine Glucose (UA) (Negative) Uric Acid Crystals (None) /hpf Urine Bacteria (None) /hpf Hyaline Casts (0-2) /lpf U Cannabinoids Screen (Negative) 08/04/23 08/04/23 08/04/23 Range/Units 20:25 20:28 20:28 WBC (3.8-10.6) k/uL Hgb (11.4-16.0) gm/dL Hct (34.0-46.0) % MCV (80.0-100.0) fL MCH (25.0-35.0) pg RDW (11.5-15.5) % Neutrophils # (1.3-7.7) k/uL D-Dimer (<0.60) mg/L FEU ABG pH 7.20 L (7.35-7.45) ABG pCO2 28 L (35-45) mmHg ABG pO2 44 L* (83-108) mmHg ABG HCO3 11 L (21-25) mmol/L ABG Total CO2 12 L (19-24) mmol/L ABG O2 Saturation 73.7 L (94-97) % Sodium (137-145) mmol/L Chloride (98-107) mmol/L Carbon Dioxide 21 L (22-30) mmol/L BUN 36 H (7-17) mg/dL Glucose 217 H (74-99) mg/dL POC Glucose (mg/dL) (70-110) mg/dL Plasma Lactic Acid Angel 3.6 H* (0.7-2.0) mmol/L Calcium (8.4-10.2) mg/dL Phosphorus (2.5-4.5) mg/dL Urine Appearance (Clear) Urine Glucose (UA) (Negative) Uric Acid Crystals (None) /hpf Urine Bacteria (None) /hpf Hyaline Casts (0-2) /lpf U Cannabinoids Screen (Negative) 08/04/23 08/04/23 08/04/23 Range/Units 20:40 21:09 22:06 WBC (3.8-10.6) k/uL Hgb (11.4-16.0) gm/dL Hct (34.0-46.0) % MCV (80.0-100.0) fL MCH (25.0-35.0) pg RDW (11.5-15.5) % Neutrophils # (1.3-7.7) k/uL D-Dimer 2.23 H (<0.60) mg/L FEU ABG pH (7.35-7.45) ABG pCO2 (35-45) mmHg ABG pO2 (83-108) mmHg ABG HCO3 (21-25) mmol/L ABG Total CO2 (19-24) mmol/L ABG O2 Saturation (94-97) % Sodium (137-145) mmol/L Chloride (98-107) mmol/L Carbon Dioxide (22-30) mmol/L BUN (7-17) mg/dL Glucose (74-99) mg/dL POC Glucose (mg/dL) 215 H 283 H (70-110) mg/dL Plasma Lactic Acid Angel (0.7-2.0) mmol/L Calcium (8.4-10.2) mg/dL Phosphorus (2.5-4.5) mg/dL Urine Appearance (Clear) Urine Glucose (UA) (Negative) Uric Acid Crystals (None) /hpf Urine Bacteria (None) /hpf Hyaline Casts (0-2) /lpf U Cannabinoids Screen (Negative) 08/04/23 08/04/23 08/05/23 Range/Units 22:10 23:05 00:07 WBC (3.8-10.6) k/uL Hgb (11.4-16.0) gm/dL Hct (34.0-46.0) % MCV (80.0-100.0) fL MCH (25.0-35.0) pg RDW (11.5-15.5) % Neutrophils # (1.3-7.7) k/uL D-Dimer (<0.60) mg/L FEU ABG pH (7.35-7.45) ABG pCO2 (35-45) mmHg ABG pO2 286 H (83-108) mmHg ABG HCO3 (21-25) mmol/L ABG Total CO2 (19-24) mmol/L ABG O2 Saturation 100.0 H (94-97) % Sodium (137-145) mmol/L Chloride (98-107) mmol/L Carbon Dioxide (22-30) mmol/L BUN (7-17) mg/dL Glucose (74-99) mg/dL POC Glucose (mg/dL) 293 H 202 H (70-110) mg/dL Plasma Lactic Acid Angel (0.7-2.0) mmol/L Calcium (8.4-10.2) mg/dL Phosphorus (2.5-4.5) mg/dL Urine Appearance (Clear) Urine Glucose (UA) (Negative) Uric Acid Crystals (None) /hpf Urine Bacteria (None) /hpf Hyaline Casts (0-2) /lpf U Cannabinoids Screen (Negative) 08/05/23 08/05/23 08/05/23 Range/Units 01:03 01:10 02:00 WBC (3.8-10.6) k/uL Hgb (11.4-16.0) gm/dL Hct (34.0-46.0) % MCV (80.0-100.0) fL MCH (25.0-35.0) pg RDW (11.5-15.5) % Neutrophils # (1.3-7.7) k/uL D-Dimer (<0.60) mg/L FEU ABG pH (7.35-7.45) ABG pCO2 (35-45) mmHg ABG pO2 (83-108) mmHg ABG HCO3 (21-25) mmol/L ABG Total CO2 (19-24) mmol/L ABG O2 Saturation (94-97) % Sodium (137-145) mmol/L Chloride (98-107) mmol/L Carbon Dioxide 18 L (22-30) mmol/L BUN 29 H (7-17) mg/dL Glucose 268 H (74-99) mg/dL POC Glucose (mg/dL) 308 H 264 H (70-110) mg/dL Plasma Lactic Acid Angel (0.7-2.0) mmol/L Calcium (8.4-10.2) mg/dL Phosphorus (2.5-4.5) mg/dL Urine Appearance (Clear) Urine Glucose (UA) (Negative) Uric Acid Crystals (None) /hpf Urine Bacteria (None) /hpf Hyaline Casts (0-2) /lpf U Cannabinoids Screen (Negative) 08/05/23 08/05/23 08/05/23 Range/Units 03:08 04:04 04:05 WBC (3.8-10.6) k/uL Hgb (11.4-16.0) gm/dL Hct (34.0-46.0) % MCV (80.0-100.0) fL MCH (25.0-35.0) pg RDW (11.5-15.5) % Neutrophils # (1.3-7.7) k/uL D-Dimer (<0.60) mg/L FEU ABG pH (7.35-7.45) ABG pCO2 (35-45) mmHg ABG pO2 (83-108) mmHg ABG HCO3 (21-25) mmol/L ABG Total CO2 (19-24) mmol/L ABG O2 Saturation (94-97) % Sodium (137-145) mmol/L Chloride (98-107) mmol/L Carbon Dioxide 19 L (22-30) mmol/L BUN 26 H (7-17) mg/dL Glucose 267 H (74-99) mg/dL POC Glucose (mg/dL) 262 H 282 H (70-110) mg/dL Plasma Lactic Acid Angel (0.7-2.0) mmol/L Calcium 8.2 L (8.4-10.2) mg/dL Phosphorus (2.5-4.5) mg/dL Urine Appearance (Clear) Urine Glucose (UA) (Negative) Uric Acid Crystals (None) /hpf Urine Bacteria (None) /hpf Hyaline Casts (0-2) /lpf U Cannabinoids Screen (Negative) 08/05/23 08/05/23 08/05/23 Range/Units 04:05 04:05 05:02 WBC 23.8 H (3.8-10.6) k/uL Hgb 10.4 L (11.4-16.0) gm/dL Hct 33.6 L (34.0-46.0) % MCV 72.6 L (80.0-100.0) fL MCH 22.6 L (25.0-35.0) pg RDW 17.2 H (11.5-15.5) % Neutrophils # 21.5 H (1.3-7.7) k/uL D-Dimer (<0.60) mg/L FEU ABG pH (7.35-7.45) ABG pCO2 (35-45) mmHg ABG pO2 (83-108) mmHg ABG HCO3 (21-25) mmol/L ABG Total CO2 (19-24) mmol/L ABG O2 Saturation (94-97) % Sodium (137-145) mmol/L Chloride (98-107) mmol/L Carbon Dioxide (22-30) mmol/L BUN (7-17) mg/dL Glucose (74-99) mg/dL POC Glucose (mg/dL) 274 H (70-110) mg/dL Plasma Lactic Acid Angel (0.7-2.0) mmol/L Calcium (8.4-10.2) mg/dL Phosphorus (2.5-4.5) mg/dL Urine Appearance Cloudy H (Clear) Urine Glucose (UA) Trace H (Negative) Uric Acid Crystals Rare H (None) /hpf Urine Bacteria Rare H (None) /hpf Hyaline Casts 6 H (0-2) /lpf U Cannabinoids Screen (Negative) 08/05/23 08/05/23 08/05/23 Range/Units 05:51 06:20 06:58 WBC (3.8-10.6) k/uL Hgb (11.4-16.0) gm/dL Hct (34.0-46.0) % MCV (80.0-100.0) fL MCH (25.0-35.0) pg RDW (11.5-15.5) % Neutrophils # (1.3-7.7) k/uL D-Dimer (<0.60) mg/L FEU ABG pH (7.35-7.45) ABG pCO2 33 L (35-45) mmHg ABG pO2 186 H (83-108) mmHg ABG HCO3 (21-25) mmol/L ABG Total CO2 (19-24) mmol/L ABG O2 Saturation 99.7 H (94-97) % Sodium (137-145) mmol/L Chloride (98-107) mmol/L Carbon Dioxide (22-30) mmol/L BUN (7-17) mg/dL Glucose (74-99) mg/dL POC Glucose (mg/dL) 250 H 227 H (70-110) mg/dL Plasma Lactic Acid Angel (0.7-2.0) mmol/L Calcium (8.4-10.2) mg/dL Phosphorus (2.5-4.5) mg/dL Urine Appearance (Clear) Urine Glucose (UA) (Negative) Uric Acid Crystals (None) /hpf Urine Bacteria (None) /hpf Hyaline Casts (0-2) /lpf U Cannabinoids Screen (Negative) 08/05/23 08/05/23 08/05/23 Range/Units 08:05 09:11 09:40 WBC (3.8-10.6) k/uL Hgb (11.4-16.0) gm/dL Hct (34.0-46.0) % MCV (80.0-100.0) fL MCH (25.0-35.0) pg RDW (11.5-15.5) % Neutrophils # (1.3-7.7) k/uL D-Dimer (<0.60) mg/L FEU ABG pH (7.35-7.45) ABG pCO2 (35-45) mmHg ABG pO2 (83-108) mmHg ABG HCO3 (21-25) mmol/L ABG Total CO2 (19-24) mmol/L ABG O2 Saturation (94-97) % Sodium 136 L (137-145) mmol/L Chloride 108 H (98-107) mmol/L Carbon Dioxide (22-30) mmol/L BUN 20 H (7-17) mg/dL Glucose 236 H (74-99) mg/dL POC Glucose (mg/dL) 248 H 256 H (70-110) mg/dL Plasma Lactic Acid Angel (0.7-2.0) mmol/L Calcium 8.2 L (8.4-10.2) mg/dL Phosphorus 2.4 L (2.5-4.5) mg/dL Urine Appearance (Clear) Urine Glucose (UA) (Negative) Uric Acid Crystals (None) /hpf Urine Bacteria (None) /hpf Hyaline Casts (0-2) /lpf U Cannabinoids Screen (Negative) 08/05/23 08/05/23 08/05/23 Range/Units 10:11 11:00 12:04 WBC (3.8-10.6) k/uL Hgb (11.4-16.0) gm/dL Hct (34.0-46.0) % MCV (80.0-100.0) fL MCH (25.0-35.0) pg RDW (11.5-15.5) % Neutrophils # (1.3-7.7) k/uL D-Dimer (<0.60) mg/L FEU ABG pH (7.35-7.45) ABG pCO2 (35-45) mmHg ABG pO2 (83-108) mmHg ABG HCO3 (21-25) mmol/L ABG Total CO2 (19-24) mmol/L ABG O2 Saturation (94-97) % Sodium (137-145) mmol/L Chloride (98-107) mmol/L Carbon Dioxide (22-30) mmol/L BUN (7-17) mg/dL Glucose (74-99) mg/dL POC Glucose (mg/dL) 231 H 243 H 228 H (70-110) mg/dL Plasma Lactic Acid Angel (0.7-2.0) mmol/L Calcium (8.4-10.2) mg/dL Phosphorus (2.5-4.5) mg/dL Urine Appearance (Clear) Urine Glucose (UA) (Negative) Uric Acid Crystals (None) /hpf Urine Bacteria (None) /hpf Hyaline Casts (0-2) /lpf U Cannabinoids Screen (Negative) Assessment and Plan Assessment: Impression: Acute hypoxic respiratory failure requiring intubation and mechanical ventilation 08/04/2023 Possible sepsis, exact source is not clear, patient may have had aspiration pneumonia considering her initial presentation and her mental status. Acute hypoxia hyper glycemic nonketotic hyperosmolar state Acute metabolic encephalopathy secondary to above Acute exacerbation of COPD, improving based on the clinical findings today. Pseudohyponatremia because of hyperglycemia Acute on chronic congestive heart failure, systolic in nature, ejection fraction of 40% at best Coronary arteriosclerosis and previous CABG as well as stenting of the PDA in F ebruary 2022 Dyslipidemia Benign essential hypertension Acute anion gap metabolic acidosis, resolved History of thyroid nodule Fibromyalgia Current marijuana smoke or X tobacco smoker Recommendation: Continue ventilatory support cut down FiO2 to 40% and PEEP rate at 20 tidal volume 500 PEEP of 5 Continue norepinephrine, central line was established. Titrate accordingly Continue close monitoring of the sugars may consider transitioning to subcu insulin/sliding scale in the meantime change fluid to 0.9 normal saline at 100 mL per hour Continue Zosyn empirically as the patient may have aspirated Continue bronchodilators for her underlying COPD Continue Solu-Medrol 40 mg IV push every 12 hours GI and DVT prophylaxis Continue propofol and discontinue Precedex. Nutritional support/enteral feeding Patient is critically ill, critical care time is over 30 minutes not including the time spent on procedures Time with Patient: Greater than 30
[2023-08-05 13:18] LABS: Glucose,Whole Blood 210 mg/dL (70-110)
--- NOTE | 2023-08-05 13:52 | OP ---
OPERATIVE REPORT DATE OF SERVICE : PROCEDURE PERFORMED: Placement of right subclavian triple-lumen catheter. PREOPERATIVE DIAGNOSIS: Acute hypoxic respiratory failure. POSTOPERATIVE DIAGNOSIS: Acute hypoxic respiratory failure. ANESTHESIA USED: 2 mL of 1% lidocaine. DESCRIPTION OF PROCEDURE: The patient was placed in a Trendelenburg position, the area of the right subclavian and right IJ/cervical region was prepared in a sterile fashion. Drapes were applied. The area below the right subcostal of the right clavicle was locally anesthetized. Using the inferior approach, the right subclavian vein was easily cannulated, and a guidewire was placed. The area around the guidewire was dilated. A triple-lumen catheter was inserted over the guidewire, and the guidewire was removed. Good blood flow noted in 3 different ports of the catheter, line was secured using 3-0 silk sutures, and chest x-ray postoperatively showed no pneumothorax and no complications with adequate placement of the tip of the line in the SVC. MMBAY / MALGORZATAN: [id number] /
[2023-08-05 14:22] LABS: Glucose,Whole Blood 259 mg/dL (70-110)
[2023-08-05 15:50] LABS: Glucose,Whole Blood 236 mg/dL (70-110)
[2023-08-05 17:04] LABS: African American GFR (CKD) >90 (>60 ml/min/1.73 sqM); Anion Gap 8 mmol/L; Blood Urea Nitrogen 18 mg/dL (7-17); Carbon Dioxide 20 mmol/L (22-30); Chloride 109 mmol/L (98-107); Glucose 214 mg/dL (74-99); Non-African American GFR(CKD) >90 (>60 ml/min/1.73 sqM); Phosphorus 3.1 mg/dL (2.5-4.5); Sodium 137 mmol/L (137-145)
[2023-08-05 17:10] LABS: Glucose,Whole Blood 221 mg/dL (70-110)
[2023-08-05 18:03] LABS: Glucose,Whole Blood 230 mg/dL (70-110)
[2023-08-05] MEDS: INSULIN REGULAR 100 UNIT in SODIUM CHLORIDE 0.9% 100 ML IV SCH ×2 (18:51→23:14)
[2023-08-05 20:03] LABS: Glucose,Whole Blood 227 mg/dL (70-110)
[2023-08-05 20:37] LABS: African American GFR (CKD) >90 (>60 ml/min/1.73 sqM); Anion Gap 8 mmol/L; Blood Urea Nitrogen 15 mg/dL (7-17); Calcium 7.9 mg/dL (8.4-10.2); Carbon Dioxide 18 mmol/L (22-30); Chloride 111 mmol/L (98-107); Glucose 208 mg/dL (74-99); Non-African American GFR(CKD) >90 (>60 ml/min/1.73 sqM); Phosphorus 2.8 mg/dL (2.5-4.5); Potassium 3.8 mmol/L (3.5-5.1); Sodium 137 mmol/L (137-145)
[2023-08-05] MEDS ORDERED: Potassium Replacement Protocol 1 EACH MISC MISCELLANE PRN (20:40)
[2023-08-05] MEDS ORDERED: POTASSIUM BICARBONATE/CIT AC 20 MEQ TABLET.EFF NG-TUBE SCH (21:00)
[2023-08-05 21:15] LABS: Glucose,Whole Blood 230 mg/dL (70-110)
--- NOTE | 2023-08-05 22:15 | P.PN ---
Subjective Progress Note Date: 08/05/23 Principal diagnosis: Sepsis/aspiration pneumonia Patient is a 72-year-old female with a past medical history negative for diabetes mellitus hypertension hyperlipidemia presenting the hospital for nausea vomiting anxiety chest discomfort patient did have a respiratory distress initially on BiPAP however the patient ended up getting intubated because of worsening respiratory status and is in the ICU. On today's evaluation that is 08/05/2020 the patient have a low-grade fever of 99.9 degrees following hide this morning patient is currently requiring a pressor support commended her blood pressure FiO2 is currently to 40% no significant purulent secretions through the ET vomiting or diarrhea has been reported by the nursing staff. Patient did have white count of 23.8 creatinine 0.55 urine has been negative chest x-ray bibasilar opacities and effusion Objective - Vital Signs Vital signs: Vital Signs Temp 99.9 F H 08/05/23 08:00 Pulse 66 08/05/23 10:57 Resp 20 08/05/23 10:00 BP 105/58 08/05/23 08:15 Pulse Ox 100 08/05/23 10:00 FiO2 40 08/05/23 10:53 Intake & Output 08/04/23 08/05/23 08/05/23 18:59 06:59 18:59 Intake Total 131.719 1843.446 912.593 Output Total 600 1555 255 Balance -823.495 4728.446 657.593 Weight 85.8 kg 84.9 kg Intake: IV 620 .9 KVO 20 D5-0.45% NaCl with KCl 300 20Meq/l 1,000 ml @ 150 mls/hr IV .Q6H40M [facility] Rx# :[id number] Piperacillin-Tazobactam 3 100 .375 gm In Sodium Chloride 0.9% 100 ml @ 25 mls/hr IVPB Q8HR [facility] Rx# :[id number] Sodium Chloride 0.9% 1, 200 000 ml @ 100 mls/hr IV . Q10H [facility] Rx#:[id number] Intake, IV Titration 204.507 4187.446 292.593 Amount D5-0.45% NaCl with KCl 1050 20Meq/l 1,000 ml @ 150 mls/hr IV .Q6H40M [facility] Rx# :[id number] D5-0.45% NaCl with KCl 750 20Meq/l 1,000 ml @ 50 mls /hr IV .Q20H [facility] Rx#: [id number] Dexmedetomidine/0.9% NaCl 92.761 101.504 66.014 (Pmx) 400 mcg In Empty Bag 1 bag @ 0.2 MCG/KG/HR 4.196 mls/hr IV .[id number] [facility] Rx#:[id number] Insulin Regular 100 unit 72.461 31.636 In Sodium Chloride 0.9% 100 ml @ 0.1 UNITS/KG/HR 8.475 mls/hr IV .[id number] [facility] Rx#:[id number] Norepinephrine 4 mg In 359.894 133.893 Sodium Chloride 0.9% 250 ml @ 0.03 MCG/KG/MIN 9. 591 mls/hr IV .Q24H [facility] Rx#:[id number] Piperacillin-Tazobactam 3 25 .375 gm In Sodium Chloride 0.9% 100 ml @ 200 mls/hr IVPB [facility] Rx#:[id number] Piperacillin-Tazobactam 3 75 .375 gm In Sodium Chloride 0.9% 100 ml @ 25 mls/hr IVPB Q8HR [facility] Rx# :[id number] propofoL 1,000 mg In 185.412 92.686 Empty Bag 1 bag @ 15 MCG/ KG/MIN 7.552 mls/hr IV . [id number] [facility] Rx#:[id number] Output: Urine 600 1555 255 Other: Voiding Method Indwelling Catheter ABP, PAP, CO, CI - Last Documented Arterial Blood Pressure 124/81 - Exam GENERAL DESCRIPTION: Elderly female intubated on the vent RESPIRATORY SYSTEM: Unlabored breathing , decreased breath sounds at bases HEART: S1 S2 regular rate and rhythm ,no loud murmurs ABDOMEN: Soft , no tenderness EXTREMITIES: No edema feet - Labs CBC & Chem 7: 08/05/23 04:05 08/05/23 20:00 Labs: Abnormal Lab Results - Last 24 Hours (Table) 08/04/23 08/04/23 08/04/23 Range/Units 07:58 11:43 12:28 WBC (3.8-10.6) k/uL Hgb (11.4-16.0) gm/dL Hct (34.0-46.0) % MCV (80.0-100.0) fL MCH (25.0-35.0) pg RDW (11.5-15.5) % Neutrophils # (1.3-7.7) k/uL D-Dimer (<0.60) mg/L FEU ABG pH (7.35-7.45) ABG pCO2 (35-45) mmHg ABG pO2 (83-108) mmHg ABG HCO3 (21-25) mmol/L ABG Total CO2 (19-24) mmol/L ABG O2 Saturation (94-97) % Sodium (137-145) mmol/L Chloride (98-107) mmol/L Carbon Dioxide (22-30) mmol/L BUN (7-17) mg/dL Glucose (74-99) mg/dL POC Glucose (mg/dL) >600 H 569 H (70-110) mg/dL Plasma Lactic Acid Angel (0.7-2.0) mmol/L Calcium (8.4-10.2) mg/dL Phosphorus (2.5-4.5) mg/dL Urine Appearance (Clear) Urine Glucose (UA) (Negative) Uric Acid Crystals (None) /hpf Urine Bacteria (None) /hpf Hyaline Casts (0-2) /lpf U Cannabinoids Screen Positive A (Negative) 08/04/23 08/04/23 08/04/23 Range/Units 13:32 13:57 14:28 WBC (3.8-10.6) k/uL Hgb (11.4-16.0) gm/dL Hct (34.0-46.0) % MCV (80.0-100.0) fL MCH (25.0-35.0) pg RDW (11.5-15.5) % Neutrophils # (1.3-7.7) k/uL D-Dimer (<0.60) mg/L FEU ABG pH (7.35-7.45) ABG pCO2 (35-45) mmHg ABG pO2 (83-108) mmHg ABG HCO3 (21-25) mmol/L ABG Total CO2 (19-24) mmol/L ABG O2 Saturation (94-97) % Sodium (137-145) mmol/L Chloride (98-107) mmol/L Carbon Dioxide (22-30) mmol/L BUN (7-17) mg/dL Glucose (74-99) mg/dL POC Glucose (mg/dL) 539 H 437 H (70-110) mg/dL Plasma Lactic Acid Angel 3.1 H* (0.7-2.0) mmol/L Calcium (8.4-10.2) mg/dL Phosphorus (2.5-4.5) mg/dL Urine Appearance (Clear) Urine Glucose (UA) (Negative) Uric Acid Crystals (None) /hpf Urine Bacteria (None) /hpf Hyaline Casts (0-2) /lpf U Cannabinoids Screen (Negative) 08/04/23 08/04/23 08/04/23 Range/Units 15:21 15:45 17:32 WBC (3.8-10.6) k/uL Hgb (11.4-16.0) gm/dL Hct (34.0-46.0) % MCV (80.0-100.0) fL MCH (25.0-35.0) pg RDW (11.5-15.5) % Neutrophils # (1.3-7.7) k/uL D-Dimer (<0.60) mg/L FEU ABG pH (7.35-7.45) ABG pCO2 (35-45) mmHg ABG pO2 (83-108) mmHg ABG HCO3 (21-25) mmol/L ABG Total CO2 (19-24) mmol/L ABG O2 Saturation (94-97) % Sodium (137-145) mmol/L Chloride (98-107) mmol/L Carbon Dioxide 20 L (22-30) mmol/L BUN 39 H (7-17) mg/dL Glucose 227 H (74-99) mg/dL POC Glucose (mg/dL) 363 H 191 H (70-110) mg/dL Plasma Lactic Acid Angel (0.7-2.0) mmol/L Calcium (8.4-10.2) mg/dL Phosphorus 4.6 H (2.5-4.5) mg/dL Urine Appearance (Clear) Urine Glucose (UA) (Negative) Uric Acid Crystals (None) /hpf Urine Bacteria (None) /hpf Hyaline Casts (0-2) /lpf U Cannabinoids Screen (Negative) 08/04/23 08/04/23 08/04/23 Range/Units 17:33 19:34 19:43 WBC (3.8-10.6) k/uL Hgb (11.4-16.0) gm/dL Hct (34.0-46.0) % MCV (80.0-100.0) fL MCH (25.0-35.0) pg RDW (11.5-15.5) % Neutrophils # (1.3-7.7) k/uL D-Dimer (<0.60) mg/L FEU ABG pH 7.34 L (7.35-7.45) ABG pCO2 (35-45) mmHg ABG pO2 26 L* (83-108) mmHg ABG HCO3 (21-25) mmol/L ABG Total CO2 25 H (19-24) mmol/L ABG O2 Saturation 36.5 L (94-97) % Sodium (137-145) mmol/L Chloride (98-107) mmol/L Carbon Dioxide (22-30) mmol/L BUN (7-17) mg/dL Glucose (74-99) mg/dL POC Glucose (mg/dL) 222 H (70-110) mg/dL Plasma Lactic Acid Angel 3.3 H* (0.7-2.0) mmol/L Calcium (8.4-10.2) mg/dL Phosphorus (2.5-4.5) mg/dL Urine Appearance (Clear) Urine Glucose (UA) (Negative) Uric Acid Crystals (None) /hpf Urine Bacteria (None) /hpf Hyaline Casts (0-2) /lpf U Cannabinoids Screen (Negative) 08/04/23 08/04/23 08/04/23 Range/Units 20:16 20:25 20:28 WBC (3.8-10.6) k/uL Hgb (11.4-16.0) gm/dL Hct (34.0-46.0) % MCV (80.0-100.0) fL MCH (25.0-35.0) pg RDW (11.5-15.5) % Neutrophils # (1.3-7.7) k/uL D-Dimer (<0.60) mg/L FEU ABG pH 7.20 L (7.35-7.45) ABG pCO2 28 L (35-45) mmHg ABG pO2 44 L* (83-108) mmHg ABG HCO3 11 L (21-25) mmol/L ABG Total CO2 12 L (19-24) mmol/L ABG O2 Saturation 73.7 L (94-97) % Sodium (137-145) mmol/L Chloride (98-107) mmol/L Carbon Dioxide 21 L (22-30) mmol/L BUN 36 H (7-17) mg/dL Glucose 217 H (74-99) mg/dL POC Glucose (mg/dL) 238 H (70-110) mg/dL Plasma Lactic Acid Angel (0.7-2.0) mmol/L Calcium (8.4-10.2) mg/dL Phosphorus (2.5-4.5) mg/dL Urine Appearance (Clear) Urine Glucose (UA) (Negative) Uric Acid Crystals (None) /hpf Urine Bacteria (None) /hpf Hyaline Casts (0-2) /lpf U Cannabinoids Screen (Negative) 08/04/23 08/04/23 08/04/23 Range/Units 20:28 20:40 21:09 WBC (3.8-10.6) k/uL Hgb (11.4-16.0) gm/dL Hct (34.0-46.0) % MCV (80.0-100.0) fL MCH (25.0-35.0) pg RDW (11.5-15.5) % Neutrophils # (1.3-7.7) k/uL D-Dimer 2.23 H (<0.60) mg/L FEU ABG pH (7.35-7.45) ABG pCO2 (35-45) mmHg ABG pO2 (83-108) mmHg ABG HCO3 (21-25) mmol/L ABG Total CO2 (19-24) mmol/L ABG O2 Saturation (94-97) % Sodium (137-145) mmol/L Chloride (98-107) mmol/L Carbon Dioxide (22-30) mmol/L BUN (7-17) mg/dL Glucose (74-99) mg/dL POC Glucose (mg/dL) 215 H (70-110) mg/dL Plasma Lactic Acid Angel 3.6 H* (0.7-2.0) mmol/L Calcium (8.4-10.2) mg/dL Phosphorus (2.5-4.5) mg/dL Urine Appearance (Clear) Urine Glucose (UA) (Negative) Uric Acid Crystals (None) /hpf Urine Bacteria (None) /hpf Hyaline Casts (0-2) /lpf U Cannabinoids Screen (Negative) 08/04/23 08/04/23 08/04/23 Range/Units 22:06 22:10 23:05 WBC (3.8-10.6) k/uL Hgb (11.4-16.0) gm/dL Hct (34.0-46.0) % MCV (80.0-100.0) fL MCH (25.0-35.0) pg RDW (11.5-15.5) % Neutrophils # (1.3-7.7) k/uL D-Dimer (<0.60) mg/L FEU ABG pH (7.35-7.45) ABG pCO2 (35-45) mmHg ABG pO2 286 H (83-108) mmHg ABG HCO3 (21-25) mmol/L ABG Total CO2 (19-24) mmol/L ABG O2 Saturation 100.0 H (94-97) % Sodium (137-145) mmol/L Chloride (98-107) mmol/L Carbon Dioxide (22-30) mmol/L BUN (7-17) mg/dL Glucose (74-99) mg/dL POC Glucose (mg/dL) 283 H 293 H (70-110) mg/dL Plasma Lactic Acid Angel (0.7-2.0) mmol/L Calcium (8.4-10.2) mg/dL Phosphorus (2.5-4.5) mg/dL Urine Appearance (Clear) Urine Glucose (UA) (Negative) Uric Acid Crystals (None) /hpf Urine Bacteria (None) /hpf Hyaline Casts (0-2) /lpf U Cannabinoids Screen (Negative) 08/05/23 08/05/23 08/05/23 Range/Units 00:07 01:03 01:10 WBC (3.8-10.6) k/uL Hgb (11.4-16.0) gm/dL Hct (34.0-46.0) % MCV (80.0-100.0) fL MCH (25.0-35.0) pg RDW (11.5-15.5) % Neutrophils # (1.3-7.7) k/uL D-Dimer (<0.60) mg/L FEU ABG pH (7.35-7.45) ABG pCO2 (35-45) mmHg ABG pO2 (83-108) mmHg ABG HCO3 (21-25) mmol/L ABG Total CO2 (19-24) mmol/L ABG O2 Saturation (94-97) % Sodium (137-145) mmol/L Chloride (98-107) mmol/L Carbon Dioxide 18 L (22-30) mmol/L BUN 29 H (7-17) mg/dL Glucose 268 H (74-99) mg/dL POC Glucose (mg/dL) 202 H 308 H (70-110) mg/dL Plasma Lactic Acid Angel (0.7-2.0) mmol/L Calcium (8.4-10.2) mg/dL Phosphorus (2.5-4.5) mg/dL Urine Appearance (Clear) Urine Glucose (UA) (Negative) Uric Acid Crystals (None) /hpf Urine Bacteria (None) /hpf Hyaline Casts (0-2) /lpf U Cannabinoids Screen (Negative) 08/05/23 08/05/23 08/05/23 Range/Units 02:00 03:08 04:04 WBC (3.8-10.6) k/uL Hgb (11.4-16.0) gm/dL Hct (34.0-46.0) % MCV (80.0-100.0) fL MCH (25.0-35.0) pg RDW (11.5-15.5) % Neutrophils # (1.3-7.7) k/uL D-Dimer (<0.60) mg/L FEU ABG pH (7.35-7.45) ABG pCO2 (35-45) mmHg ABG pO2 (83-108) mmHg ABG HCO3 (21-25) mmol/L ABG Total CO2 (19-24) mmol/L ABG O2 Saturation (94-97) % Sodium (137-145) mmol/L Chloride (98-107) mmol/L Carbon Dioxide (22-30) mmol/L BUN (7-17) mg/dL Glucose (74-99) mg/dL POC Glucose (mg/dL) 264 H 262 H 282 H (70-110) mg/dL Plasma Lactic Acid Angel (0.7-2.0) mmol/L Calcium (8.4-10.2) mg/dL Phosphorus (2.5-4.5) mg/dL Urine Appearance (Clear) Urine Glucose (UA) (Negative) Uric Acid Crystals (None) /hpf Urine Bacteria (None) /hpf Hyaline Casts (0-2) /lpf U Cannabinoids Screen (Negative) 08/05/23 08/05/23 08/05/23 Range/Units 04:05 04:05 04:05 WBC 23.8 H (3.8-10.6) k/uL Hgb 10.4 L (11.4-16.0) gm/dL Hct 33.6 L (34.0-46.0) % MCV 72.6 L (80.0-100.0) fL MCH 22.6 L (25.0-35.0) pg RDW 17.2 H (11.5-15.5) % Neutrophils # 21.5 H (1.3-7.7) k/uL D-Dimer (<0.60) mg/L FEU ABG pH (7.35-7.45) ABG pCO2 (35-45) mmHg ABG pO2 (83-108) mmHg ABG HCO3 (21-25) mmol/L ABG Total CO2 (19-24) mmol/L ABG O2 Saturation (94-97) % Sodium (137-145) mmol/L Chloride (98-107) mmol/L Carbon Dioxide 19 L (22-30) mmol/L BUN 26 H (7-17) mg/dL Glucose 267 H (74-99) mg/dL POC Glucose (mg/dL) (70-110) mg/dL Plasma Lactic Acid Angel (0.7-2.0) mmol/L Calcium 8.2 L (8.4-10.2) mg/dL Phosphorus (2.5-4.5) mg/dL Urine Appearance Cloudy H (Clear) Urine Glucose (UA) Trace H (Negative) Uric Acid Crystals Rare H (None) /hpf Urine Bacteria Rare H (None) /hpf Hyaline Casts 6 H (0-2) /lpf U Cannabinoids Screen (Negative) 08/05/23 08/05/23 08/05/23 Range/Units 05:02 05:51 06:20 WBC (3.8-10.6) k/uL Hgb (11.4-16.0) gm/dL Hct (34.0-46.0) % MCV (80.0-100.0) fL MCH (25.0-35.0) pg RDW (11.5-15.5) % Neutrophils # (1.3-7.7) k/uL D-Dimer (<0.60) mg/L FEU ABG pH (7.35-7.45) ABG pCO2 33 L (35-45) mmHg ABG pO2 186 H (83-108) mmHg ABG HCO3 (21-25) mmol/L ABG Total CO2 (19-24) mmol/L ABG O2 Saturation 99.7 H (94-97) % Sodium (137-145) mmol/L Chloride (98-107) mmol/L Carbon Dioxide (22-30) mmol/L BUN (7-17) mg/dL Glucose (74-99) mg/dL POC Glucose (mg/dL) 274 H 250 H (70-110) mg/dL Plasma Lactic Acid Angel (0.7-2.0) mmol/L Calcium (8.4-10.2) mg/dL Phosphorus (2.5-4.5) mg/dL Urine Appearance (Clear) Urine Glucose (UA) (Negative) Uric Acid Crystals (None) /hpf Urine Bacteria (None) /hpf Hyaline Casts (0-2) /lpf U Cannabinoids Screen (Negative) 08/05/23 08/05/23 08/05/23 Range/Units 06:58 08:05 09:11 WBC (3.8-10.6) k/uL Hgb (11.4-16.0) gm/dL Hct (34.0-46.0) % MCV (80.0-100.0) fL MCH (25.0-35.0) pg RDW (11.5-15.5) % Neutrophils # (1.3-7.7) k/uL D-Dimer (<0.60) mg/L FEU ABG pH (7.35-7.45) ABG pCO2 (35-45) mmHg ABG pO2 (83-108) mmHg ABG HCO3 (21-25) mmol/L ABG Total CO2 (19-24) mmol/L ABG O2 Saturation (94-97) % Sodium (137-145) mmol/L Chloride (98-107) mmol/L Carbon Dioxide (22-30) mmol/L BUN (7-17) mg/dL Glucose (74-99) mg/dL POC Glucose (mg/dL) 227 H 248 H 256 H (70-110) mg/dL Plasma Lactic Acid Angel (0.7-2.0) mmol/L Calcium (8.4-10.2) mg/dL Phosphorus (2.5-4.5) mg/dL Urine Appearance (Clear) Urine Glucose (UA) (Negative) Uric Acid Crystals (None) /hpf Urine Bacteria (None) /hpf Hyaline Casts (0-2) /lpf U Cannabinoids Screen (Negative) 08/05/23 08/05/23 Range/Units 09:40 10:11 WBC (3.8-10.6) k/uL Hgb (11.4-16.0) gm/dL Hct (34.0-46.0) % MCV (80.0-100.0) fL MCH (25.0-35.0) pg RDW (11.5-15.5) % Neutrophils # (1.3-7.7) k/uL D-Dimer (<0.60) mg/L FEU ABG pH (7.35-7.45) ABG pCO2 (35-45) mmHg ABG pO2 (83-108) mmHg ABG HCO3 (21-25) mmol/L ABG Total CO2 (19-24) mmol/L ABG O2 Saturation (94-97) % Sodium 136 L (137-145) mmol/L Chloride 108 H (98-107) mmol/L Carbon Dioxide (22-30) mmol/L BUN 20 H (7-17) mg/dL Glucose 236 H (74-99) mg/dL POC Glucose (mg/dL) 231 H (70-110) mg/dL Plasma Lactic Acid Angel (0.7-2.0) mmol/L Calcium 8.2 L (8.4-10.2) mg/dL Phosphorus 2.4 L (2.5-4.5) mg/dL Urine Appearance (Clear) Urine Glucose (UA) (Negative) Uric Acid Crystals (None) /hpf Urine Bacteria (None) /hpf Hyaline Casts (0-2) /lpf U Cannabinoids Screen (Negative) Assessment and Plan (1) Aspiration pneumonia Current Visit: Yes Status: Acute Code(s): J69.0 - PNEUMONITIS DUE TO INHALATION OF FOOD AND VOMIT SNOMED Code(s): 416093763 (2) Allergy to multiple antibiotics Current Visit: Yes Status: Acute Code(s): Z88.1 - ALLERGY STATUS TO OTHER ANTIBIOTIC AGENTS SNOMED Code(s): 511249374 (3) Sepsis Current Visit: Yes Status: Acute Code(s): A41.9 - SEPSIS, UNSPECIFIED ORGAN ISM SNOMED Code(s): 19686895 Plan: 1patient with a SIRS/sepsis in this patient with a leukocytosis and did have elevated lactic acid and tachycardia, patient presented hospital with agitation weakness some shortness of breath which is likely multifactorial patient did have some acute infiltrate on chest x-ray and concern for possible aspiration pneumonitis not entirely excluded currently no other obvious focus of infection, patient did have a negative UA abdomin soft on clinical examination no evidence of any joint swelling or redness 2sputum has been obtained and cultures will be followed. 3patient to continue with the Zosyn 3.375 g every 8 hours while waiting for the culture to finalize Dictation was produced using [employer] dictation software. please excuse any grammatical, word or spelling errors.
[2023-08-05 22:19] LABS: Glucose,Whole Blood 228 mg/dL (70-110)
[2023-08-05 22:51] LABS: Glucose,Whole Blood 185 mg/dL (70-110)
[2023-08-06 00:10] LABS: Glucose,Whole Blood 235 mg/dL (70-110)
[2023-08-06] MEDS: PIPERACILLIN-TAZOBACTAM 3.375 GM in SODIUM CHLORIDE 0.9% 100 ML IVPB SCH ×4 (00:19→23:52)
[2023-08-06 00:30] LABS: African American GFR (CKD) >90 (>60 ml/min/1.73 sqM); Anion Gap 9 mmol/L; Blood Urea Nitrogen 16 mg/dL (7-17); Calcium 7.8 mg/dL (8.4-10.2); Carbon Dioxide 18 mmol/L (22-30); Chloride 110 mmol/L (98-107); Glucose 210 mg/dL (74-99); Non-African American GFR(CKD) >90 (>60 ml/min/1.73 sqM); Phosphorus 3.1 mg/dL (2.5-4.5); Potassium 4.2 mmol/L (3.5-5.1); Sodium 137 mmol/L (137-145)
[2023-08-06 01:03] LABS: Glucose,Whole Blood 236 mg/dL (70-110)
[2023-08-06 01:58] LABS: Glucose,Whole Blood 225 mg/dL (70-110)
[2023-08-06 02:56] LABS: Glucose,Whole Blood 189 mg/dL (70-110)
[2023-08-06] MEDS: methylPREDNISolone SOD SUCCI 40 MG/ML 1 ML VIAL IV SCH ×2 (03:51→16:40)
[2023-08-06 04:14] LABS: Glucose,Whole Blood 172 mg/dL (70-110)
[2023-08-06] MEDS: SODIUM CHLORIDE 0.9% 1,000 ML IV SCH ×3 (04:17→23:55)
[2023-08-06 04:34] LABS: Anisocytosis Slight; Basophils % (A) 0 %; Eosinophils % (A) 0 %; HCT 32.1 % (34.0-46.0); HGB 9.9 gm/dL (11.4-16.0); Hypochromasia Marked; Lymphocytes # (A) 1.9 k/uL (1.0-4.8); Lymphocytes % (A) 11 %; MCH 22.6 pg (25.0-35.0); MCHC 30.9 g/dL (31.0-37.0); MCV 73.3 fL (80.0-100.0); Mean Platelet Volume 7.6; Microcytosis Moderate; Monocytes # (A) 0.8 k/uL (0-1.0); Monocytes % (A) 5 %; Neutrophils # (A) 14.1 k/uL (1.3-7.7); Neutrophils % (A) 83 %; Platelet Count 244 k/uL (150-450); RBC 4.38 m/uL (3.80-5.40); RDW 17.9 % (11.5-15.5)
[2023-08-06 04:47] LABS: ALT 32 U/L (4-34); AST 40 U/L (14-36); African American GFR (CKD) >90 (>60 ml/min/1.73 sqM); Albumin 2.8 g/dL (3.5-5.0); Alkaline Phosphatase 73 U/L (38-126); Anion Gap 6 mmol/L; Blood Urea Nitrogen 16 mg/dL (7-17); Calcium 8.1 mg/dL (8.4-10.2); Carbon Dioxide 22 mmol/L (22-30); Chloride 109 mmol/L (98-107); Glucose 166 mg/dL (74-99); Non-African American GFR(CKD) >90 (>60 ml/min/1.73 sqM); Sodium 137 mmol/L (137-145); Total Bilirubin 0.3 mg/dL (0.2-1.3); Total Protein 5.1 g/dL (6.3-8.2)
[2023-08-06] MEDS ORDERED: ACETAMINOPHEN IV (For NPO) 1,000 MG in EMPTY BAG 1 BAG IVPB PRN (04:53)
[2023-08-06 05:25] LABS: Glucose,Whole Blood 187 mg/dL (70-110)
[2023-08-06 05:34] LABS: ABG Base Excess 1.2 mmol/L; ABG HCO3 25 mmol/L (21-25); ABG Oxygen Saturation 98.5 % (94-97); ABG PCO2 37 mmHg (35-45); ABG PH 7.44 (7.35-7.45); ABG PO2 105 mmHg (83-108); ABG TCO2 26 mmol/L (19-24); Allen Test Performed? Yes
[2023-08-06 06:13] LABS: Glucose,Whole Blood 210 mg/dL (70-110)
--- NOTE | 2023-08-06 06:23 | XR ---
EXAMINATION TYPE: XR chest 1V portable DATE OF EXAM: 08/06/2023 CLINICAL HISTORY: Difficulty breathing progress study. TECHNIQUE: Single AP portable semiupright view of the chest is obtained. COMPARISON: Chest x-ray from one day earlier and older studies. FINDINGS: Stable endotracheal and orogastric tubes. Stable right-sided subclavian central venous cat heter. Overlying sternal wires and mediastinal clips are redemonstrated. Left atrial appendage clip is redem onstrated. Persistent mild cardiomegaly with increasing interstitial markings bilaterally and tiny le ft pleural effusion. Osseous structures are intact. IMPRESSION: I suspect CHF exacerbation or fluid overload state as there is increasing interstitial ed marilee present on background mild cardiomegaly. Correlate clinically.
[2023-08-06] MEDS ORDERED: ONDANSETRON 4 MG/2 ML VIAL IVP PRN (07:13)
[2023-08-06] MEDS: PANTOPRAZOLE 40 MG TABLET PO SCH (07:33)
[2023-08-06] MEDS: FORMOTEROL FUMARATE 20 MCG/2 ML NEBU INHALATION SCH ×2 (08:15→21:08)
[2023-08-06] MEDS: BUDESONIDE 1 MG/2 ML NEBU INHALATION SCH ×2 (08:15→21:04)
[2023-08-06] MEDS: IPRATROPIUM-ALBUTEROL 3 ML NEB INHALATION SCH ×4 (08:15→21:05)
[2023-08-06] MEDS: ENOXAPARIN 40 MG/0.4 ML SYRINGE SQ SCH (08:44)
[2023-08-06 09:22] LABS: Glucose,Whole Blood 309 mg/dL (70-110)
--- NOTE | 2023-08-06 09:45 | P.PN ---
Subjective Progress Note Date: 08/06/23 This is a 72-year-old female patient who presented to the ER with multiple complaints. Patient is currently sedated on BiPAP all information is obtained from medical record no family at bedside Upon arrival to the ER it appears that patient came very agitated and family returned her back to the ER according to ER reports complaints upon arrival include chest discomfort coughing nausea hyperglycemia anxiety and diaphoresis. Per records patient symptoms have been occurring over the past 2 days with elevated blood sugars. Patient has a past medical history of asthma, coronary artery disease with coronary artery bypass graft surgery, heart failure, COPD, diabetes mellitus, fibromyalgia, hyperlipid emia, hypertension, diabetes mellitus, sleep apnea and ex-smoker. Chest x-ray performed showing cardiomegaly with mild central vascular congestion and new right upper to midlung acute infiltrate and/or edema. Head CT completed showing no acute intracranial hemorrhage or midline shift there is mild diffuse age- related cerebral atrophy and chronic small vessel ischemic changes significant change from prior. Thoracic aorta CT performed showing borderline aneurysmal dilation of the ascending thoracic aorta the remainder daily order is of normal caliber no dissection of intra-mural hematoma seen. Blood sugar upon arrival 831, sodium 123, potassium 5.5, lactic acid 6.8, WBC 23.0. Patient also noted to have significant tachycardia initially elevated at 151. Patient was given multiple medications in ER due to agitation. Patient was placed on BiPAP. Patient was started on IV Zosyn, IV Solu-Medrol and insulin drip. Patient will be admitted to the intensive care unit patient also started on Precedex per critical care services. Will consult infectious disease due to sepsis. Drug screen ordered repeat labs ordered. Will also consult cardiology services due to initial complaints of chest pain and elevated heart rate. On 08/06/2023 patient currently intubated and sedated in the intensive care unit. Per nursing staff patient has been weaned off Levophed. Remains on insulin per HHS protocol. Patient remains on IV Zosyn IV Solu-Medrol. Patient remains on FiO2 of 40%. Critical care infectious disease and cardiology services consulted Objective - Vital Signs Vital signs: Vital Signs Temp 100.1 F H 08/06/23 08:00 Pulse 122 H 08/06/23 09:15 Resp 24 08/06/23 09:15 BP 163/89 08/06/23 09:15 Pulse Ox 99 08/06/23 09:15 FiO2 40 08/06/23 08:00 Intake & Output 08/05/23 08/06/23 08/06/23 18:59 06:59 18:59 Intake Total 2505.797 1892.208 410 Output Total 725 545 150 Balance 4309.519 6968.208 260 Weight 84.9 kg 88 kg Intake: IV 1640 1200 410 .9 KVO 40 10 D5-0.45% NaCl with KCl 300 20Meq/l 1,000 ml @ 150 mls/hr IV .[id number] [facility] Rx# :[id number] Magnesium Sulfate-D5w Pmx 100 1 gm In Dextrose/Water 1 100ml.bag @ 100 mls/hr IVPB ONCE ONE Rx#: [id number] Piperacillin-Tazobactam 3 200 100 .375 gm In Sodium Chloride 0.9% 100 ml @ 25 mls/hr IVPB Q8HR [facility] Rx# :[id number] Sodium Chloride 0.9% 1, 1000 1200 300 000 ml @ 100 mls/hr IV . Q10H [facility] Rx#:[id number] Intake, IV Titration 795.797 370.208 Amount Dexmedetomidine/0.9% NaCl 68.671 (Pmx) 400 mcg In Empty Bag 1 bag @ 0.2 MCG/KG/HR 4.196 mls/hr IV .[id number] [facility] Rx#:[id number] Insulin Regular 100 unit 84.688 34.055 In Sodium Chloride 0.9% 100 ml @ 0.1 UNITS/KG/HR 8.475 mls/hr IV .[id number] [facility] Rx#:[id number] Norepinephrine 4 mg In 349.752 62.025 Sodium Chloride 0.9% 250 ml @ 0.03 MCG/KG/MIN 9. 591 mls/hr IV .Q24H [facility] Rx#:[id number] propofoL 1,000 mg In 292.686 274.128 Empty Bag 1 bag @ 15 MCG/ KG/MIN 7.552 mls/hr IV . [id number] [facility] Rx#:[id number] Tube Feeding 40 232 0 Other 30 90 Output: Urine 725 545 150 Other: Voiding Method Indwelling Catheter Indwelling Catheter ABP, PAP, CO, CI - Last Documented Arterial Blood Pressure 108/82 - Exam Head normocephalic Neck supple Lungs clear to auscultation bilaterally no wheezing or crackles Heart regular rate and rhythm S1-S2, no rub or gallop Abdomen is soft nontender nondistended positive bowel sounds no hepatosplenomegaly Extremities no edema Neuro patient intubated and sedated - Labs CBC & Chem 7: 08/06/23 04:15 08/06/23 04:15 Labs: Abnormal Lab Results - Last 24 Hours (Table) 08/04/23 08/05/23 08/05/23 Range/Units 07:58 09:40 10:11 WBC (3.8-10.6) k/uL Hgb (11.4-16.0) gm/dL Hct (34.0-46.0) % MCV (80.0-100.0) fL MCH (25.0-35.0) pg MCHC (31.0-37.0) g/dL RDW (11.5-15.5) % Neutrophils # (1.3-7.7) k/uL ABG Total CO2 (19-24) mmol/L ABG O2 Saturation (94-97) % Sodium 136 L (137-145) mmol/L Chloride 108 H (98-107) mmol/L Carbon Dioxide (22-30) mmol/L BUN 20 H (7-17) mg/dL Creatinine (0.52-1.04) mg/dL Glucose 236 H (74-99) mg/dL POC Glucose (mg/dL) 231 H (70-110) mg/dL Calcium 8.2 L (8.4-10.2) mg/dL Phosphorus 2.4 L (2.5-4.5) mg/dL AST (14-36) U/L Total Protein (6.3-8.2) g/dL Albumin (3.5-5.0) g/dL U Cannabinoids Screen Positive A (Negative) 08/05/23 08/05/23 08/05/23 Range/Units 11:00 12:04 13:16 WBC (3.8-10.6) k/uL Hgb (11.4-16.0) gm/dL Hct (34.0-46.0) % MCV (80.0-100.0) fL MCH (25.0-35.0) pg MCHC (31.0-37.0) g/dL RDW (11.5-15.5) % Neutrophils # (1.3-7.7) k/uL ABG Total CO2 (19-24) mmol/L ABG O2 Saturation (94-97) % Sodium (137-145) mmol/L Chloride (98-107) mmol/L Carbon Dioxide (22-30) mmol/L BUN (7-17) mg/dL Creatinine (0.52-1.04) mg/dL Glucose (74-99) mg/dL POC Glucose (mg/dL) 243 H 228 H 210 H (70-110) mg/dL Calcium (8.4-10.2) mg/dL Phosphorus (2.5-4.5) mg/dL AST (14-36) U/L Total Protein (6.3-8.2) g/dL Albumin (3.5-5.0) g/dL U Cannabinoids Screen (Negative) 08/05/23 08/05/23 08/05/23 Range/Units 14:20 15:49 15:50 WBC (3.8-10.6) k/uL Hgb (11.4-16.0) gm/dL Hct (34.0-46.0) % MCV (80.0-100.0) fL MCH (25.0-35.0) pg MCHC (31.0-37.0) g/dL RDW (11.5-15.5) % Neutrophils # (1.3-7.7) k/uL ABG Total CO2 (19-24) mmol/L ABG O2 Saturation (94-97) % Sodium (137-145) mmol/L Chloride 109 H (98-107) mmol/L Carbon Dioxide 20 L (22-30) mmol/L BUN 18 H (7-17) mg/dL Creatinine (0.52-1.04) mg/dL Glucose 214 H (74-99) mg/dL POC Glucose (mg/dL) 259 H 236 H (70-110) mg/dL Calcium 8.0 L (8.4-10.2) mg/dL Phosphorus (2.5-4.5) mg/dL AST (14-36) U/L Total Protein (6.3-8.2) g/dL Albumin (3.5-5.0) g/dL U Cannabinoids Screen (Negative) 08/05/23 08/05/23 08/05/23 Range/Units 17:08 18:02 20:00 WBC (3.8-10.6) k/uL Hgb (11.4-16.0) gm/dL Hct (34.0-46.0) % MCV (80.0-100.0) fL MCH (25.0-35.0) pg MCHC (31.0-37.0) g/dL RDW (11.5-15.5) % Neutrophils # (1.3-7.7) k/uL ABG Total CO2 (19-24) mmol/L ABG O2 Saturation (94-97) % Sodium (137-145) mmol/L Chloride 111 H (98-107) mmol/L Carbon Dioxide 18 L (22-30) mmol/L BUN (7-17) mg/dL Creatinine (0.52-1.04) mg/dL Glucose 208 H (74-99) mg/dL POC Glucose (mg/dL) 221 H 230 H (70-110) mg/dL Calcium 7.9 L (8.4-10.2) mg/dL Phosphorus (2.5-4.5) mg/dL AST (14-36) U/L Total Protein (6.3-8.2) g/dL Albumin (3.5-5.0) g/dL U Cannabinoids Screen (Negative) 08/05/23 08/05/23 08/05/23 Range/Units 20:02 21:13 22:18 WBC (3.8-10.6) k/uL Hgb (11.4-16.0) gm/dL Hct (34.0-46.0) % MCV (80.0-100.0) fL MCH (25.0-35.0) pg MCHC (31.0-37.0) g/dL RDW (11.5-15.5) % Neutrophils # (1.3-7.7) k/uL ABG Total CO2 (19-24) mmol/L ABG O2 Saturation (94-97) % Sodium (137-145) mmol/L Chloride (98-107) mmol/L Carbon Dioxide (22-30) mmol/L BUN (7-17) mg/dL Creatinine (0.52-1.04) mg/dL Glucose (74-99) mg/dL POC Glucose (mg/dL) 227 H 230 H 228 H (70-110) mg/dL Calcium (8.4-10.2) mg/dL Phosphorus (2.5-4.5) mg/dL AST (14-36) U/L Total Protein (6.3-8.2) g/dL Albumin (3.5-5.0) g/dL U Cannabinoids Screen (Negative) 08/05/23 08/06/23 08/06/23 Range/Units 22:49 00:05 00:09 WBC (3.8-10.6) k/uL Hgb (11.4-16.0) gm/dL Hct (34.0-46.0) % MCV (80.0-100.0) fL MCH (25.0-35.0) pg MCHC (31.0-37.0) g/dL RDW (11.5-15.5) % Neutrophils # (1.3-7.7) k/uL ABG Total CO2 (19-24) mmol/L ABG O2 Saturation (94-97) % Sodium (137-145) mmol/L Chloride 110 H (98-107) mmol/L Carbon Dioxide 18 L (22-30) mmol/L BUN (7-17) mg/dL Creatinine 0.51 L (0.52-1.04) mg/dL Glucose 210 H (74-99) mg/dL POC Glucose (mg/dL) 185 H 235 H (70-110) mg/dL Calcium 7.8 L (8.4-10.2) mg/dL Phosphorus (2.5-4.5) mg/dL AST (14-36) U/L Total Protein (6.3-8.2) g/dL Albumin (3.5-5.0) g/dL U Cannabinoids Screen (Negative) 08/06/23 08/06/23 08/06/23 Range/Units 01:01 01:56 02:54 WBC (3.8-10.6) k/uL Hgb (11.4-16.0) gm/dL Hct (34.0-46.0) % MCV (80.0-100.0) fL MCH (25.0-35.0) pg MCHC (31.0-37.0) g/dL RDW (11.5-15.5) % Neutrophils # (1.3-7.7) k/uL ABG Total CO2 (19-24) mmol/L ABG O2 Saturation (94-97) % Sodium (137-145) mmol/L Chloride (98-107) mmol/L Carbon Dioxide (22-30) mmol/L BUN (7-17) mg/dL Creatinine (0.52-1.04) mg/dL Glucose (74-99) mg/dL POC Glucose (mg/dL) 236 H 225 H 189 H (70-110) mg/dL Calcium (8.4-10.2) mg/dL Phosphorus (2.5-4.5) mg/dL AST (14-36) U/L Total Protein (6.3-8.2) g/dL Albumin (3.5-5.0) g/dL U Cannabinoids Screen (Negative) 08/06/23 08/06/23 08/06/23 Range/Units 04:12 04:15 04:15 WBC 17.0 H (3.8-10.6) k/uL Hgb 9.9 L (11.4-16.0) gm/dL Hct 32.1 L (34.0-46.0) % MCV 73.3 L (80.0-100.0) fL MCH 22.6 L (25.0-35.0) pg MCHC 30.9 L (31.0-37.0) g/dL RDW 17.9 H (11.5-15.5) % Neutrophils # 14.1 H (1.3-7.7) k/uL ABG Total CO2 (19-24) mmol/L ABG O2 Saturation (94-97) % Sodium (137-145) mmol/L Chloride 109 H (98-107) mmol/L Carbon Dioxide (22-30) mmol/L BUN (7-17) mg/dL Creatinine (0.52-1.04) mg/dL Glucose 166 H (74-99) mg/dL POC Glucose (mg/dL) 172 H (70-110) mg/dL Calcium 8.1 L (8.4-10.2) mg/dL Phosphorus (2.5-4.5) mg/dL AST 40 H (14-36) U/L Total Protein 5.1 L (6.3-8.2) g/dL Albumin 2.8 L (3.5-5.0) g/dL U Cannabinoids Screen (Negative) 08/06/23 08/06/23 08/06/23 Range/Units 05:23 05:33 06:11 WBC (3.8-10.6) k/uL Hgb (11.4-16.0) gm/dL Hct (34.0-46.0) % MCV (80.0-100.0) fL MCH (25.0-35.0) pg MCHC (31.0-37.0) g/dL RDW (11.5-15.5) % Neutrophils # (1.3-7.7) k/uL ABG Total CO2 26 H (19-24) mmol/L ABG O2 Saturation 98.5 H (94-97) % Sodium (137-145) mmol/L Chloride (98-107) mmol/L Carbon Dioxide (22-30) mmol/L BUN (7-17) mg/dL Creatinine (0.52-1.04) mg/dL Glucose (74-99) mg/dL POC Glucose (mg/dL) 187 H 210 H (70-110) mg/dL Calcium (8.4-10.2) mg/dL Phosphorus (2.5-4.5) mg/dL AST (14-36) U/L Total Protein (6.3-8.2) g/dL Albumin (3.5-5.0) g/dL U Cannabinoids Screen (Negative) 08/06/23 Range/Units 09:21 WBC (3.8-10.6) k/uL Hgb (11.4-16.0) gm/dL Hct (34.0-46.0) % MCV (80.0-100.0) fL MCH (25.0-35.0) pg MCHC (31.0-37.0) g/dL RDW (11.5-15.5) % Neutrophils # (1.3-7.7) k/uL ABG Total CO2 (19-24) mmol/L ABG O2 Saturation (94-97) % Sodium (137-145) mmol/L Chloride (98-107) mmol/L Carbon Dioxide (22-30) mmol/L BUN (7-17) mg/dL Creatinine (0.52-1.04) mg/dL Glucose (74-99) mg/dL POC Glucose (mg/dL) 309 H (70-110) mg/dL Calcium (8.4-10.2) mg/dL Phosphorus (2.5-4.5) mg/dL AST (14-36) U/L Total Protein (6.3-8.2) g/dL Albumin (3.5-5.0) g/dL U Cannabinoids Screen (Negative) Assessment and Plan Assessment: Altered mental status changes secondary to metabolic encephalopathy Hyperglycemia secondary to HHS. Patient started on insulin drip Acute hypoxic respiratory failure requiring intubation on 08/04/2023 Sepsis with elevated lactic acid and WBC. Pneumonia. Patient started on IV Zosyn Electrolyte imbalance Tachycardia. Cardiology service is consulted Acute exacerbation of COPD Underlying history of coronary artery disease with previous history of angioplasty and stent and coronary artery bypass graft surgery History of non-compliance with medication History of essential hypertension History of hyperlipidemia History of insulin-dependent diabetes mellitus History of tobacco and drug use Patient has been admitted to the intensive care unit Maintained on IV antibiotics and IV steroids HHS protocol Critical care infectious disease service is following
[2023-08-06] MEDS: HYDROmorphone 0.5 MG/0.5 ML SYRINGE IVP PRN (10:23)
[2023-08-06] MEDS: METOPROLOL TARTRATE 25 MG TAB PO SCH ×2 (10:23→20:23)
[2023-08-06] MEDS: INSULIN REGULAR 100 UNIT in SODIUM CHLORIDE 0.9% 100 ML IV SCH (10:25)
[2023-08-06 11:37] LABS: Glucose,Whole Blood 295 mg/dL (70-110)
[2023-08-06 12:36] LABS: Glucose,Whole Blood 275 mg/dL (70-110)
--- NOTE | 2023-08-06 12:53 | P.PN ---
Subjective Progress Note Date: 08/06/23 Principal diagnosis: Acute hypoxic respiratory failure, multifactorial requiring intubation and mechanical ventilation on 08/04/2023 This is a 72-year-old female with history of multiple medical problems including severe COPD/asthma patient was recently in the hospital and she was seen by Dr. Murry on consultation. Patient was brought into the ER and early this morning with multiple complaints, however the patient herself is a very poor historian, and could not get information from the patient. But according to the chart the patient arrived to the ER, she was extremely agitated, she was also complaining of some vague chest discomfort, cough, nausea and vomiting, she was also sweating profusely upon arrival. Patient was noted to have extremely elevated blood sugar however she had negative ketones. When I saw the patient she was not answering any questions and was not cooperative, patient was on BiPAP. Chest x-ray showed cardiomegaly, mild pulmonary vascular congestion, questionable right upper lobe infiltrate her labs showed evidence of leukocytosis with WBC count of 23.0 hemoglobin 10.8. Sodium was noted to be low at 123 however this is a pseudohyponatremia because her blood sugar was a 51. Bicarb was noted to be 15 and she had anion gap of 22. Urine was negative for ketones. Troponin was slightly elevated. At any rate I evaluated the patient in the ER, recommended icy admission once a bed becomes available in the meantime we will place the patient on the DKA protocol although the patient has what seems to be a hyperosmolar nonketotic state. With hyperglycemia. And acute anion gap metabolic acidosis. Again her ketones were negative in the urine. Patient was also placed on antibiotics, and bronchodilators follow-up ABG was ordered Patient was reevaluated today on 08/05/2023. Patient was transferred to the ICU from the ER early evening yesterday, and upon arrival to the ICU patient was hypoxic, agitated and restless, and her ABG was quite abnormal. I was notified about this patient, and I recommended immediate intubation. Patient was placed on mechanical ventilation, and overnight she was placed on norepinephrine. Remains on norepinephrine at 0.1 mcg/kg/m mostly for low blood pressure. Patient is now on assist control rate of 20, volume 500 FiO2 50% and PEEP of 5 ABG showed a pO2 of 186 pCO2 33 pH of 7.44. She was on Precedex which I have discontinued. And I will keep the patient on propofol for now. Considering the patient is on norepinephrine I went ahead and placed a right subclavian triple- lumen catheter. Patient's sugar is much better controlled today, she was still on insulin drip which I have recommended tapering down and changing her main IV fluid to 0.9 normal saline at 100 mL per hour. Empirically the patient is on Zosyn, chest x-ray showed dramatic improvement in her right upper lobe abnor mality however she does have bibasilar atelectasis. Questionable aspiration is possible but felt to be less likely. Cultures are pending. Venous Doppler of the lower extremities was negative. D-dimer was slightly elevated at 2.23 and drug screen was negative except for cannabinoids. Urinalysis is unremarkable. Lactic acid on admission was 3.6 but now it's 2.0 WBC count is 23.8 hemoglobin is 10.4, blood sugar is 236 this morning, anion gap is only 6. Patient was reevaluated today on 08/06/2023, remains in the ICU, intubated and mechanically ventilated. Patient is on assist control rate of 2010 volume 500 FiO2 40% PEEP of 5 ABG showed a pO2 of 105 pCO2 37 pH of 7.44 hence the patient was kept on 40% FiO2. Patient remains on propofol at 50 mcg/kg/m receiving a small amount of insulin 0.32 units per hour and on IV fluid 0.9 normal saline at 100 mL per hour. Patient is tachycardic, hence I added Lopressor as she takes normally beta blockers at home and this will be at 50 mg twice a day. Patient remains on Zosyn empirically, and she is receiving Dilaudid when necessary. Sputum cultures are basically nondiagnostic. So far WBC count is down to 17 hemoglobin is 9.9 platelets are 244, basic metabolic profile is normal renal profile is normal. Patient is arousable but she seems to be quite frail and weak. And on physical examination she had scattered rhonchi bilaterally and did not proceed with weaning trials today. Objective - Vital Signs Vital signs: Vital Signs Temp 98.8 F 08/06/23 12:00 Pulse 108 H 08/06/23 12:15 Resp 20 08/06/23 12:15 BP 104/51 08/06/23 12:15 Pulse Ox 99 08/06/23 12:15 FiO2 35 10/15/23 12:00 Intake & Output 08/05/23 08/06/23 08/06/23 18:59 06:59 18:59 Intake Total 2505.797 1892.208 901.438 Output Total 725 545 370 Balance 8924.186 5749.208 531.438 Weight 84.9 kg 88 kg Intake: IV 1640 1200 720 .9 KVO 40 20 D5-0.45% NaCl with KCl 300 20Meq/l 1,000 ml @ 150 mls/hr IV .[id number] [facility] Rx# :[id number] Magnesium Sulfate-D5w Pmx 100 1 gm In Dextrose/Water 1 100ml.bag @ 100 mls/hr IVPB ONCE ONE Rx#: [id number] Piperacillin-Tazobactam 3 200 100 .375 gm In Sodium Chloride 0.9% 100 ml @ 25 mls/hr IVPB Q8HR [facility] Rx# :[id number] Sodium Chloride 0.9% 1, 1000 1200 600 000 ml @ 100 mls/hr IV . Q10H [facility] Rx#:[id number] Intake, IV Titration 795.797 370.208 101.438 Amount Dexmedetomidine/0.9% NaCl 68.671 (Pmx) 400 mcg In Empty Bag 1 bag @ 0.2 MCG/KG/HR 4.196 mls/hr IV .[id number] [facility] Rx#:[id number] Insulin Regular 100 unit 84.688 34.055 1.438 In Sodium Chloride 0.9% 100 ml @ 0.1 UNITS/KG/HR 8.475 mls/hr IV .[id number] [facility] Rx#:[id number] Norepinephrine 4 mg In 349.752 62.025 Sodium Chloride 0.9% 250 ml @ 0.03 MCG/KG/MIN 9. 591 mls/hr IV .Q24H [facility] Rx#:[id number] propofoL 1,000 mg In 292.686 274.128 100 Empty Bag 1 bag @ 15 MCG/ KG/MIN 7.552 mls/hr IV . [id number] [facility] Rx#:[id number] Tube Feeding 40 232 20 Other 30 90 60 Output: Urine 725 545 370 Other: Voiding Method Indwelling Catheter Indwelling Catheter ABP, PAP, CO, CI - Last Documented Arterial Blood Pressure 108/82 - Exam Physical Exam: Revealed 72-year-old female intubated and mechanically ventilated sedated not in distress. Arousable, and follows simple instructions Head: Atraumatic, normocephalic. Endotracheal tube and orogastric tube are intact. HEENT:[Neck is supple.] [No neck masses.] [No thyromegaly.] [No JVD.] Chest: Crackles and rhonchi noted bilaterally. Cardiac: Normal S1 and S2, no S3 gallop, tachycardic, no murmur. Abdomen: [Obese, Soft, nontender, no megaly, no rebound, no guarding, normal bowel sounds.] Extremities: [No clubbitrace of bipedal edema, no cyanosis.] Neurological Examarousable looks very frail and weak, but follows instructions Psychiatric:: Flat affect, seems to have normal mental status - Labs CBC & Chem 7: 08/06/23 04:15 08/06/23 04:15 Labs: Abnormal Lab Results - Last 24 Hours (Table) 08/05/23 08/05/23 08/05/23 Range/Units 13:16 14:20 15:49 WBC (3.8-10.6) k/uL Hgb (11.4-16.0) gm/dL Hct (34.0-46.0) % MCV (80.0-100.0) fL MCH (25.0-35.0) pg MCHC (31.0-37.0) g/dL RDW (11.5-15.5) % Neutrophils # (1.3-7.7) k/uL ABG Total CO2 (19-24) mmol/L ABG O2 Saturation (94-97) % Chloride (98-107) mmol/L Carbon Dioxide (22-30) mmol/L BUN (7-17) mg/dL Creatinine (0.52-1.04) mg/dL Glucose (74-99) mg/dL POC Glucose (mg/dL) 210 H 259 H 236 H (70-110) mg/dL Calcium (8.4-10.2) mg/dL AST (14-36) U/L Total Protein (6.3-8.2) g/dL Albumin (3.5-5.0) g/dL 08/05/23 08/05/23 08/05/23 Range/Units 15:50 17:08 18:02 WBC (3.8-10.6) k/uL Hgb (11.4-16.0) gm/dL Hct (34.0-46.0) % MCV (80.0-100.0) fL MCH (25.0-35.0) pg MCHC (31.0-37.0) g/dL RDW (11.5-15.5) % Neutrophils # (1.3-7.7) k/uL ABG Total CO2 (19-24) mmol/L ABG O2 Saturation (94-97) % Chloride 109 H (98-107) mmol/L Carbon Dioxide 20 L (22-30) mmol/L BUN 18 H (7-17) mg/dL Creatinine (0.52-1.04) mg/dL Glucose 214 H (74-99) mg/dL POC Glucose (mg/dL) 221 H 230 H (70-110) mg/dL Calcium 8.0 L (8.4-10.2) mg/dL AST (14-36) U/L Total Protein (6.3-8.2) g/dL Albumin (3.5-5.0) g/dL 08/05/23 08/05/23 08/05/23 Range/Units 20:00 20:02 21:13 WBC (3.8-10.6) k/uL Hgb (11.4-16.0) gm/dL Hct (34.0-46.0) % MCV (80.0-100.0) fL MCH (25.0-35.0) pg MCHC (31.0-37.0) g/dL RDW (11.5-15.5) % Neutrophils # (1.3-7.7) k/uL ABG Total CO2 (19-24) mmol/L ABG O2 Saturation (94-97) % Chloride 111 H (98-107) mmol/L Carbon Dioxide 18 L (22-30) mmol/L BUN (7-17) mg/dL Creatinine (0.52-1.04) mg/dL Glucose 208 H (74-99) mg/dL POC Glucose (mg/dL) 227 H 230 H (70-110) mg/dL Calcium 7.9 L (8.4-10.2) mg/dL AST (14-36) U/L Total Protein (6.3-8.2) g/dL Albumin (3.5-5.0) g/dL 08/05/23 08/05/23 08/06/23 Range/Units 22:18 22:49 00:05 WBC (3.8-10.6) k/uL Hgb (11.4-16.0) gm/dL Hct (34.0-46.0) % MCV (80.0-100.0) fL MCH (25.0-35.0) pg MCHC (31.0-37.0) g/dL RDW (11.5-15.5) % Neutrophils # (1.3-7.7) k/uL ABG Total CO2 (19-24) mmol/L ABG O2 Saturation (94-97) % Chloride 110 H (98-107) mmol/L Carbon Dioxide 18 L (22-30) mmol/L BUN (7-17) mg/dL Creatinine 0.51 L (0.52-1.04) mg/dL Glucose 210 H (74-99) mg/dL POC Glucose (mg/dL) 228 H 185 H (70-110) mg/dL Calcium 7.8 L (8.4-10.2) mg/dL AST (14-36) U/L Total Protein (6.3-8.2) g/dL Albumin (3.5-5.0) g/dL 08/06/23 08/06/23 08/06/23 Range/Units 00:09 01:01 01:56 WBC (3.8-10.6) k/uL Hgb (11.4-16.0) gm/dL Hct (34.0-46.0) % MCV (80.0-100.0) fL MCH (25.0-35.0) pg MCHC (31.0-37.0) g/dL RDW (11.5-15.5) % Neutrophils # (1.3-7.7) k/uL ABG Total CO2 (19-24) mmol/L ABG O2 Saturation (94-97) % Chloride (98-107) mmol/L Carbon Dioxide (22-30) mmol/L BUN (7-17) mg/dL Creatinine (0.52-1.04) mg/dL Glucose (74-99) mg/dL POC Glucose (mg/dL) 235 H 236 H 225 H (70-110) mg/dL Calcium (8.4-10.2) mg/dL AST (14-36) U/L Total Protein (6.3-8.2) g/dL Albumin (3.5-5.0) g/dL 08/06/23 08/06/23 08/06/23 Range/Units 02:54 04:12 04:15 WBC 17.0 H (3.8-10.6) k/uL Hgb 9.9 L (11.4-16.0) gm/dL Hct 32.1 L (34.0-46.0) % MCV 73.3 L (80.0-100.0) fL MCH 22.6 L (25.0-35.0) pg MCHC 30.9 L (31.0-37.0) g/dL RDW 17.9 H (11.5-15.5) % Neutrophils # 14.1 H (1.3-7.7) k/uL ABG Total CO2 (19-24) mmol/L ABG O2 Saturation (94-97) % Chloride (98-107) mmol/L Carbon Dioxide (22-30) mmol/L BUN (7-17) mg/dL Creatinine (0.52-1.04) mg/dL Glucose (74-99) mg/dL POC Glucose (mg/dL) 189 H 172 H (70-110) mg/dL Calcium (8.4-10.2) mg/dL AST (14-36) U/L Total Protein (6.3-8.2) g/dL Albumin (3.5-5.0) g/dL 08/06/23 08/06/23 08/06/23 Range/Units 04:15 05:23 05:33 WBC (3.8-10.6) k/uL Hgb (11.4-16.0) gm/dL Hct (34.0-46.0) % MCV (80.0-100.0) fL MCH (25.0-35.0) pg MCHC (31.0-37.0) g/dL RDW (11.5-15.5) % Neutrophils # (1.3-7.7) k/uL ABG Total CO2 26 H (19-24) mmol/L ABG O2 Saturation 98.5 H (94-97) % Chloride 109 H (98-107) mmol/L Carbon Dioxide (22-30) mmol/L BUN (7-17) mg/dL Creatinine (0.52-1.04) mg/dL Glucose 166 H (74-99) mg/dL POC Glucose (mg/dL) 187 H (70-110) mg/dL Calcium 8.1 L (8.4-10.2) mg/dL AST 40 H (14-36) U/L Total Protein 5.1 L (6.3-8.2) g/dL Albumin 2.8 L (3.5-5.0) g/dL 08/06/23 08/06/23 08/06/23 Range/Units 06:11 09:21 11:36 WBC (3.8-10.6) k/uL Hgb (11.4-16.0) gm/dL Hct (34.0-46.0) % MCV (80.0-100.0) fL MCH (25.0-35.0) pg MCHC (31.0-37.0) g/dL RDW (11.5-15.5) % Neutrophils # (1.3-7.7) k/uL ABG Total CO2 (19-24) mmol/L ABG O2 Saturation (94-97) % Chloride (98-107) mmol/L Carbon Dioxide (22-30) mmol/L BUN (7-17) mg/dL Creatinine (0.52-1.04) mg/dL Glucose (74-99) mg/dL POC Glucose (mg/dL) 210 H 309 H 295 H (70-110) mg/dL Calcium (8.4-10.2) mg/dL AST (14-36) U/L Total Protein (6.3-8.2) g/dL Albumin (3.5-5.0) g/dL 08/06/23 Range/Units 12:24 WBC (3.8-10.6) k/uL Hgb (11.4-16.0) gm/dL Hct (34.0-46.0) % MCV (80.0-100.0) fL MCH (25.0-35.0) pg MCHC (31.0-37.0) g/dL RDW (11.5-15.5) % Neutrophils # (1.3-7.7) k/uL ABG Total CO2 (19-24) mmol/L ABG O2 Saturation (94-97) % Chloride (98-107) mmol/L Carbon Dioxide (22-30) mmol/L BUN (7-17) mg/dL Creatinine (0.52-1.04) mg/dL Glucose (74-99) mg/dL POC Glucose (mg/dL) 275 H (70-110) mg/dL Calcium (8.4-10.2) mg/dL AST (14-36) U/L Total Protein (6.3-8.2) g/dL Albumin (3.5-5.0) g/dL Microbiology - Last 24 Hours (Table) 08/05/23 03:50 Gram Stain - Preliminary Sputum Assessment and Plan Assessment: Impression: Acute hypoxic respiratory failure requiring intubation and mechanical ventilation 08/04/2023 Possible sepsis, exact source is not clear, patient may have had aspiration pneumonia considering her initial presentation and her mental status. Acute hyper glycemic nonketotic hyperosmolar state, blood sugar on presentation was over 800 Acute metabolic encephalopathy secondary to above Acute exacerbation of COPD, steadily improving but not resolved Pseudohyponatremia because of hyperglycemia, resolved Acute on chronic congestive heart failure, systolic in nature, ejection fraction of 40% at best Coronary arteriosclerosis and previous CABG as well as stenting of the PDA in December 12 2022 Dyslipidemia Benign essential hypertension History of thyroid nodule Fibromyalgia Current marijuana smoke or X tobacco smoker Recommendation: Continue ventilatory support, no changes made in the vent settings today. Patient is not ready for weaning and extubation today as she continues to have significant rhonchi and wheezing on physical examination. And she seems to be quite weak. Patient is now off norepinephrine Continue insulin and hopefully transition to subcu insulin with sliding scale Continue Zosyn empirically as the patient may have aspirated Continue bronchodilators for her underlying COPD Continue Solu-Medrol 40 mg IV push every 12 hours, using lower dose mostly because of the hyperglycemia GI and DVT prophylaxis Continue propofol and maintain a rass scale -3 Nutritional support/enteral feeding Patient is critically ill, critical care time is over 30 minutes Time with Patient: Greater than 30
[2023-08-06 13:16] LABS: Glucose,Whole Blood 253 mg/dL (70-110)
[2023-08-06 14:16] LABS: Glucose,Whole Blood 269 mg/dL (70-110)
--- NOTE | 2023-08-06 14:59 | P.CRDCN ---
History of Present Illness Consult date: 08/06/23 History of present illness: HISTORY OF PRESENTING ILLNESS 72-year-old female with past medical history significant for type 2 diabetes, hypertension, dyslipidemia, osteoarthritis and asthma. She presented to the hospital with the complaints of nausea and vomiting, elevated blood sugars. She has also been reporting of anxiety and sweating. On admission to ER she was significantly confused and was noticed to be septic. Cardiology was consulted for to evaluate for tachycardia and possible chest pain. At the time of evaluation patient was intubated. History is very limited WBC count of 23.0 hemoglobin 10.8. Sodium was noted to be low at 123 however this is a pseudohyponatremia because her blood sugar was a 51. Bicarb was noted to be 15 and she had anion gap of 22. Urine was negative for ketones. REVIEW OF SYSTEMS 14 point review of system is negative except what is mentioned above in HPI. PHYSICAL EXAMINATION Vital signs reviewed. Head: Normocephalic. Eyes: Sclerae nonicteric. Neck: Brisk carotid upstroke, Lungs: On vent support, ET tube in place. Heart: Regular rate and rhythm, S1-S2, no S3, no murmur or rub. Abdomen: Soft nontender, positive bowel sounds no organomegaly. Extremities: No edema, intact distal pulses. Neuro: Alert, oritented, no focal deficits ASSESSMENT Physiological sinus tachycardia, due to sepsis Acute hypoxic respiratory failure Vent dependent respiratory failure Nonketotic hyperosmolar state Acute COPD exacerbation History of CAD status post CABG and prior stenting to PDA and 2022 Dyslipidemia [facility] Tobacco smoker PLAN Continue DAPT therapy with aspirin and Plavix Resume statins once patient is extubated Do not treat patients with physiological sinus tachycardia with AV samantha bl ocking agent Obtain an echocardiogram Other comorbidities to be managed by intensive care team and primary team Past Medical History Past Medical History: Asthma, Coronary Artery Disease (CAD), Heart Failure, COPD, Diabetes Mellitus, Fibromyalgia, Hyperlipidemia, Hypertension, Musculoskeletal Disorder, Osteoarthritis (OA), Sleep Apnea/CPAP/BIPAP Additional Past Medical History / Comment(s): TESTED POSITIVE FOR LUPUS (STATES NO SYMPTOMS), DOES NOT USE CPAP, SEASONAL ALLERGIES, STATES 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 Poly substance abuse 07/19/21 admitted for Acute delirium History of Any Multi-Drug Resistant Organisms: None Reported Past Surgical History: Cholecystectomy, Coronary Bypass/CABG, Hernia Repair, Orthopedic Surgery, Tonsillectomy, Tubal Ligation Additional Past Surgical History / Comment(s): LEFT KNEE ARTHROSCOPY, BMT AND MYRINGOPLASTY, umbilical hernia repair, CABG 2020 Past Anesthesia/Blood Transfusion Reactions: No Reported Reaction Additional Past Anesthesia/Blood Transfusion Reaction / Comment(s): STATES AFTER LAST EAR SX (11/2013) HAD SORE MUSCLES AND WAS WEAK FOR 3-4 DAYS Past Psychological History: Unable to Obtain Smoking Status: Former smoker Past Alcohol Use History: None Reported Past Drug Use History: None Reported, Marijuana - Past Family History Sister(s) Family Medical History: Cancer Brother(s) Family Medical History: Cancer Additional Family Medical History / Comment(s): brother had heart valve replacement Mother Family Medical History: Chest Pain / Angina, Diabetes Mellitus, Hypertension Father History Unknown: Yes Additional Family Medical History / Comment(s): , "had bad lungs" per patient, was a smoker Medications and Allergies Home Medications Medication Instructions Recorded Confirmed Type traMADol HCl [Ultram] 50 mg PO TID PRN 11/04/15 08/04/23 History traZODone HCL [Desyrel] 50 mg PO HS PRN 06/11/23 08/04/23 History Aspirin 81 mg PO DAILY tab 07/01/23 08/04/23 Rx Clopidogrel [Plavix] 75 mg PO DAILY tab 07/01/23 08/04/23 Rx Insulin Glargine/Lixisenatide 30 units SQ DAILY 30 Days #1 pen 07/01/23 08/04/23 Rx [Soliqua 100 Unit-33 Mcg/ml Pen] Metoprolol Succinate (ER) [Toprol 25 mg PO DAILY tab 07/01/23 08/04/23 Rx XL] lisinopriL [Zestril] 2.5 mg PO DAILY tab 07/01/23 08/04/23 Rx Albuterol Nebulized [Ventolin 2.5 mg INHALATION RT-Q4H PRN 07/22/23 08/04/23 History Nebulized] Ipratropium-Albuterol Nebulize 3 ml INHALATION RT-QID 07/22/23 08/04/23 History [Duoneb 0.5 mg-3 mg/3 ml Soln] Atorvastatin [Lipitor] 80 mg PO DAILY 30 Days #30 tab 07/25/23 08/04/23 Rx Furosemide [Lasix] 40 mg PO DAILY 30 Days #30 tab 07/25/23 08/04/23 Rx predniSONE [Deltasone] See Taper PO DIRECTED 08/04/23 08/04/23 History Allergies Allergy/AdvReac Type Severity Reaction Status Date / Time cephalexin Allergy Anaphylaxis Verified 08/04/23 06:54 cephalexin monohydrate Allergy Anaphylaxis Verified 08/04/23 06:54 [From Keflex] Sulfa (Sulfonamide Allergy Rash/Hives Verified 08/04/23 06:54 Antibiotics) Physical Exam Vitals: Vital Signs Temp Pulse Resp BP Pulse Ox FiO2 08/06/23 14:55 35 08/06/23 14:00 81 20 112/68 99 08/06/23 13:45 90 20 120/65 99 08/06/23 13:30 89 20 125/70 99 08/06/23 13:15 89 20 103/58 99 08/06/23 13:00 92 20 103/58 98 08/06/23 12:45 97 20 104/62 98 08/06/23 12:30 98 20 101/63 99 08/06/23 12:15 108 H 20 104/51 99 08/06/23 12:00 98.8 F 112 H 20 88/57 99 35 08/06/23 11:45 116 H 20 90/63 99 08/06/23 11:33 115 H 08/06/23 11:30 111 H 20 112/70 98 08/06/23 11:21 116 H 08/06/23 11:18 35 08/06/23 11:15 116 H 20 121/68 99 08/06/23 11:00 117 H 20 116/77 99 08/06/23 10:45 116 H 20 159/113 98 08/06/23 10:30 124 H 22 160/89 97 08/06/23 10:15 123 H 25 H 156/91 97 08/06/23 10:00 123 H 24 94 L 35 08/06/23 09:45 124 H 22 159/96 99 08/06/23 09:30 121 H 24 164/98 98 08/06/23 09:15 122 H 24 163/89 99 08/06/23 09:00 129 H 25 H 157/85 99 08/06/23 08:45 125 H 23 141/80 99 08/06/23 08:38 116 H 08/06/23 08:30 112 H 24 140/76 98 08/06/23 08:25 115 H 08/06/23 08:15 118 H 24 160/86 98 08/06/23 08:00 100.1 F H 118 H 23 162/89 99 40 08/06/23 07:49 40 08/06/23 07:45 121 H 23 150/81 99 08/06/23 07:30 112 H 20 154/74 98 08/06/23 07:15 120 H 20 153/78 96 08/06/23 07:00 120 H 20 155/82 97 08/06/23 06:15 125 H 20 147/79 99 08/06/23 06:00 20 L 20 151/83 98 08/06/23 05:30 121 H 20 151/82 98 08/06/23 05:00 122 H 20 151/99 99 40 08/06/23 04:30 112 H 20 159/84 98 08/06/23 04:15 109 H 22 149/85 99 08/06/23 04:10 40 08/06/23 04:00 100.5 F H 116 H 20 148/87 99 40 08/06/23 03:45 118 H 20 130/81 100 08/06/23 03:30 116 H 20 99 08/06/23 03:15 108 H 20 128/74 99 08/06/23 03:00 113 H 20 133/86 99 08/06/23 02:45 112 H 20 133/86 99 08/06/23 02:30 109 H 20 133/82 99 08/06/23 02:15 107 H 20 133/82 99 08/06/23 02:00 106 H 15 99 40 08/06/23 01:45 112 H 8 L 98 08/06/23 01:30 108 H 17 99 08/06/23 01:15 111 H 25 H 100 08/06/23 01:00 109 H 20 100 40 08/06/23 00:45 106 H 23 100 08/06/23 00:30 110 H 23 140/81 100 08/06/23 00:15 107 H 21 100 40 08/06/23 00:00 98.7 F 107 H 21 100 40 08/05/23 23:45 103 H 20 100 08/05/23 23:30 102 H 21 100 08/05/23 23:15 100 21 100 08/05/23 23:00 96 21 100 08/05/23 22:45 96 22 100 08/05/23 22:30 97 20 100 08/05/23 22:15 106 H 19 100 08/05/23 22:00 92 20 100 08/05/23 21:45 92 20 100 08/05/23 21:30 82 20 100 08/05/23 21:15 76 20 100 08/05/23 21:05 68 08/05/23 21:00 72 20 100 08/05/23 20:56 68 08/05/23 20:55 66 08/05/23 20:45 81 20 100 08/05/23 20:40 64 08/05/23 20:38 40 08/05/23 20:30 68 20 100 08/05/23 20:15 68 20 122/63 100 08/05/23 20:00 97.0 F L 63 20 100 40 08/05/23 19:45 62 20 113/55 100 08/05/23 19:30 64 20 110/57 100 08/05/23 19:15 64 20 108/52 100 08/05/23 19:00 60 20 108/58 100 08/05/23 18:45 66 20 110/61 100 08/05/23 18:30 67 20 97/55 100 08/05/23 18:15 67 20 102/56 100 08/05/23 18:00 79 29 H 112/59 98 08/05/23 17:45 63 20 108/58 100 08/05/23 17:30 64 20 106/61 100 08/05/23 17:15 63 20 100 08/05/23 17:00 64 20 115/59 100 08/05/23 16:45 62 20 116/60 99 08/05/23 16:30 67 20 110/58 100 08/05/23 16:15 68 20 116/64 100 08/05/23 16:00 98.6 F 79 20 108/56 100 40 08/05/23 15:45 63 21 107/56 100 08/05/23 15:30 68 20 100/56 100 10/14/23 15:15 63 20 104/55 100 08/05/23 15:00 61 20 109/56 100 Intake and Output 08/05/23 08/06/23 08/06/23 22:59 06:59 14:59 Intake Total 2937.226 1143.265 1141.438 Output Total 505 295 535 Balance 926.179 908.265 606.438 Intake: IV 800 800 940 .9 KVO 40 Piperacillin-Tazobactam 3 100 100 .375 gm In Sodium Chloride 0.9% 100 ml @ 25 mls/hr IVPB Q8HR [facility] Rx# :[id number] Sodium Chloride 0.9% 1, 700 800 800 000 ml @ 100 mls/hr IV . Q10H DIMA Rx#:[id number] Intake, IV Titration 481.179 191.265 101.438 Amount Insulin Regular 100 unit 105.521 13.222 1.438 In Sodium Chloride 0.9% 100 ml @ 0.1 UNITS/KG/HR 8.475 mls/hr IV .[id number] D[facility] Rx#:[id number] Norepinephrine 4 mg In 179.573 Sodium Chloride 0.9% 250 ml @ 0.03 MCG/KG/MIN 9. 591 mls/hr IV .Q24H [facility] Rx#:[id number] propofoL 1,000 mg In 196.085 178.043 100 Empty Bag 1 bag @ 15 MCG/ KG/MIN 7.552 mls/hr IV . [id number] [facility] Rx#:[id number] Tube Feeding 120 152 40 Other 30 60 60 Output: Urine 505 295 535 Other: Voiding Method Indwelling Catheter Indwelling Catheter Weight 88 kg Results 08/06/23 04:15 08/06/23 04:15 Cardiac Enzymes 08/06/23 Range/Units 04:15 AST 40 H (14-36) U/L CBC 08/06/23 Range/Units 04:15 WBC 17.0 H (3.8-10.6) k/uL RBC 4.38 (3.80-5.40) m/uL Hgb 9.9 L (11.4-16.0) gm/dL Hct 32.1 L (34.0-46.0) % Plt Count 244 (150-450) k/uL Comprehensive Metabolic Panel 08/05/23 08/05/23 08/06/23 Range/Units 15:50 20:00 00:05 Sodium 137 137 137 (137-145) mmol/L Potassium 4.0 3.8 4.2 (3.5-5.1) mmol/L Chloride 109 H 111 H 110 H (98-107) mmol/L Carbon Dioxide 20 L 18 L 18 L (22-30) mmol/L BUN 18 H 15 16 (7-17) mg/dL Creatinine 0.57 0.55 0.51 L (0.52-1.04) mg/dL Glucose 214 H 208 H 210 H (74-99) mg/dL Calcium 8.0 L 7.9 L 7.8 L (8.4-10.2) mg/dL AST (14-36) U/L ALT (4-34) U/L Alkaline Phosphatase (38-126) U/L Total Protein (6.3-8.2) g/dL Albumin (3.5-5.0) g/dL 08/06/23 Range/Units 04:15 Sodium 137 (137-145) mmol/L Potassium 4.0 (3.5-5.1) mmol/L Chloride 109 H (98-107) mmol/L Carbon Dioxide 22 (22-30) mmol/L BUN 16 (7-17) mg/dL Creatinine 0.62 (0.52-1.04) mg/dL Glucose 166 H (74-99) mg/dL Calcium 8.1 L (8.4-10.2) mg/dL AST 40 H (14-36) U/L ALT 32 (4-34) U/L Alkaline Phosphatase 73 (38-126) U/L Total Protein 5.1 L (6.3-8.2) g/dL Albumin 2.8 L (3.5-5.0) g/dL Current Medications Generic Name Dose Route Start Last Admin Trade Name Freq PRN Reason Stop Dose Admin Albuterol/Ipratropium 3 ml 08/04/23 12:00 08/06/23 14:58 Ipratropium-Albuterol 3 Ml Neb INHALATION 3 ml RT-QID DIMA Administration Albuterol/Ipratropium 3 ml 08/04/23 08:43 Ipratropium-Albuterol 3 Ml Neb INHALATION RT-Q2H PRN Shortness Of Breath Or Wheezing Aspirin 81 mg 08/06/23 15:00 Aspirin 81 Mg PO DAILY DIMA Budesonide 1 mg 08/04/23 20:00 08/06/23 08:15 Budesonide 1 Mg/2 Ml Nebu INHALATION 1 mg RT-BID DIMA Administration Chlorhexidine Gluconate 15 ml 08/06/23 21:00 Chlorhexidine Gluconate 15 Ml Cup MUCOUS MEM BID DIMA Clopidogrel Bisulfate 75 mg 08/06/23 15:00 Clopidogrel 75 Mg Tab PO DAILY DIMA Dextrose/Water 25 ml 08/04/23 07:59 Dextrose 50% Syringe 50 Ml IVP PER PROTOCOL PRN Hypoglycemia Protocol Dextrose/Water 50 ml 08/04/23 07:59 Dextrose 50% Syringe 50 Ml IVP PER PROTOCOL PRN Hypoglycemia Protocol Enoxaparin Sodium 40 mg 08/05/23 09:00 08/06/23 08:44 Enoxaparin 40 Mg/0.4 Ml Syringe SQ 40 mg DAILY DIMA Administration Formoterol Fumarate 20 mcg 08/04/23 20:00 08/06/23 08:15 Formoterol Fumarate 20 Mcg/2 Ml Nebu INHALATION 20 mcg RT-BID DIMA Administration Hydromorphone HCl 0.5 mg 08/06/23 09:43 08/06/23 10:23 Hydromorphone 0.5 Mg/0.5 Ml Syringe IVP 0.5 mg Q4HR PRN Administration Pain Insulin Human Regular 100 unit 101 mls @ 8.475 mls/hr 08/04/23 08:00 08/06/23 10:25 / Sodium Chloride IV Not Given .[id number] DIMA Protocol 0.1 UNITS/KG/HR Piperacillin Sod/Tazobactam 100 mls @ 25 mls/hr 08/04/23 16:00 08/06/23 08:44 Sod 3.375 gm/ Sodium Chloride IVPB 25 mls/hr Q8HR DIMA Administration Protocol Dexmedetomidine HCl 400 mcg/ 100 mls @ 4.196 mls/hr 08/04/23 09:00 08/05/23 11:45 IV Solution IV 0 mcg/kg/hr .[id number] DIMA 0 mls/hr Titration Protocol 0.2 MCG/KG/HR Propofol 1,000 mg/ IV Solution 100 mls @ 7.552 mls/hr 08/04/23 20:45 08/06/23 09:55 IV 50 mcg/kg/min .[id number] DIMA 25.175 mls/hr Administration Protocol 15 MCG/KG/MIN Norepinephrine Bitartrate 4 mg 254 mls @ 9.591 mls/hr 08/04/23 20:45 08/05/23 21:55 / Sodium Chloride IV 0 mcg/kg/min .Q24H DIMA 0 mls/hr Titration Protocol 0.03 MCG/KG/MIN Sodium Chloride 1,000 mls @ 100 mls/hr 08/05/23 09:00 08/06/23 04:17 Saline 0.9% IV 100 mls/hr .Q10H DIMA Administration Acetaminophen 1,000 mg/ IV 100 mls @ 400 mls/hr 08/06/23 04:53 08/06/23 05:03 Solution IVPB 08/07/23 04:54 400 mls/hr Q8HR PRN Administration Fever Methylprednisolone Sodium Succinate 40 mg 08/05/23 04:00 08/06/23 03:51 Methylprednisolone Sod Succi 40 Mg/Ml 1 Ml Vial IV 40 mg Q12H DIMA Administration Metoprolol Tartrate 25 mg 08/06/23 09:45 08/06/23 10:23 Metoprolol Tartrate 25 Mg Tab PO 25 mg BID DIMA Administration Miscellaneous Information 1 each 08/05/23 11:12 Phosphorus Replacement Protoco 1 Each Misc MISCELLANE DAILY PRN Per Protocol Protocol Miscellaneous Information 1 each 08/05/23 11:45 Magnesium Replacement Protocol 1 Each Mis MISCELLANE DAILY PRN Per Protocol Protocol Miscellaneous Information 1 each 08/05/23 20:40 Potassium Replacement Protocol 1 Each Misc MISCELLANE DAILY PRN Per Protocol Protocol Naloxone HCl 0.2 mg 08/04/23 08:00 Naloxone 0.4 Mg/Ml 1 Ml Vial IV Q2M PRN Opioid Reversal Ondansetron HCl 4 mg 08/06/23 07:13 08/06/23 08:44 Ondansetron 4 Mg/2 Ml Vial IVP 4 mg Q6HR PRN Administration Nausea And Vomiting Pantoprazole Sodium 40 mg 08/05/23 07:30 08/06/23 07:33 Pantoprazole 40 Mg Tablet PO Not Given [id number] DIMA Intake and Output 08/05/23 08/06/2323 22:59 06:59 14:59 Intake Total 8674.242 9788.265 1141.438 Output Total 505 295 535 Balance 926.179 908.265 606.438 Intake: IV 800 800 940 .9 KVO 40 Piperacillin-Tazobactam 3 100 100 .375 gm In Sodium Chloride 0.9% 100 ml @ 25 mls/hr IVPB Q8HR [facility] Rx# :[id number] Sodium Chloride 0.9% 1, 700 800 800 000 ml @ 100 mls/hr IV . Q10H [facility] Rx#:[id number] Intake, IV Titration 481.179 191.265 101.438 Amount Insulin Regular 100 unit 105.521 13.222 1.438 In Sodium Chloride 0.9% 100 ml @ 0.1 UNITS/KG/HR 8.475 mls/hr IV .[id number] [facility] Rx#:[id number] Norepinephrine 4 mg In 179.573 Sodium Chloride 0.9% 250 ml @ 0.03 MCG/KG/MIN 9. 591 mls/hr IV .Q24H [facility] Rx#:[id number] propofoL 1,000 mg In 196.085 178.043 100 Empty Bag 1 bag @ 15 MCG/ KG/MIN 7.552 mls/hr IV . [id number] [facility] Rx#:[id number] Tube Feeding 120 152 40 Other 30 60 60 Output: Urine 505 295 535 Other: Voiding Method Indwelling Catheter Indwelling Catheter Weight 88 kg 08/06/23 04:15 08/06/23 04:15
[2023-08-06 16:11] LABS: Glucose,Whole Blood 268 mg/dL (70-110)
[2023-08-06] MEDS: ASPIRIN 81 MG PO SCH (16:40)
[2023-08-06] MEDS: CLOPIDOGREL 75 MG TAB PO SCH (16:40)
[2023-08-06 18:16] LABS: Glucose,Whole Blood 302 mg/dL (70-110)
--- NOTE | 2023-08-06 18:18 | P.PN ---
Subjective Progress Note Date: 08/06/23 Patient is a 72-year-old female with a past medical history negative for diabetes mellitus hypertension hyperlipidemia presenting the hospital for nausea vomiting anxiety chest discomfort patient did have a respiratory distress initially on BiPAP however the patient ended up getting intubated because of worsening respiratory status and is in the ICU. On today's evaluation that is 08/06/2023 the patient have a low-grade fever of 100.1 degrees Fahrenheit this morning patient is currently off the pressor support commended her blood pressure FiO2 is down to 35% no significant purulent secretions through the ET vomiting or diarrhea has been reported by the nursing staff. Patient did have white count down to 17K creatinine 0.62 urine has been negative chest x-ray bibasilar opacities and effusion Objective - Vital Signs Vital signs: Vital Signs Temp 98.4 F 08/06/23 16:00 Pulse 92 08/06/23 17:45 Resp 20 08/06/23 17:45 BP 97/53 08/06/23 17:45 Pulse Ox 98 08/06/23 17:45 FiO2 35 08/06/23 16:00 Intake & Output 08/05/23 08/06/23 08/06/23 18:59 06:59 18:59 Intake Total 2505.797 0741.392 5117.438 Output Total 725 545 710 Balance 4910.210 8949.208 801.438 Weight 84.9 kg 88 kg Intake: IV 1640 1200 1160 .9 KVO 40 60 D5-0.45% NaCl with KCl 300 20Meq/l 1,000 ml @ 150 mls/hr IV .[id number] [facility] Rx# :[id number] Magnesium Sulfate-D5w Pmx 100 1 gm In Dextrose/Water 1 100ml.bag @ 100 mls/hr IVPB ONCE ONE Rx#: [id number] Piperacillin-Tazobactam 3 200 100 .375 gm In Sodium Chloride 0.9% 100 ml @ 25 mls/hr IVPB Q8HR [facility] Rx# :[id number] Sodium Chloride 0.9% 1, 1000 1200 1000 000 ml @ 100 mls/hr IV . Q10H [facility] Rx#:[id number] Intake, IV Titration 795.797 370.208 201.438 Amount Dexmedetomidine/0.9% NaCl 68.671 (Pmx) 400 mcg In Empty Bag 1 bag @ 0.2 MCG/KG/HR 4.196 mls/hr IV .[id number] [facility] Rx#:[id number] Insulin Regular 100 unit 84.688 34.055 1.438 In Sodium Chloride 0.9% 100 ml @ 0.1 UNITS/KG/HR 8.475 mls/hr IV .[id number] [facility] Rx#:[id number] Norepinephrine 4 mg In 349.752 62.025 Sodium Chloride 0.9% 250 ml @ 0.03 MCG/KG/MIN 9. 591 mls/hr IV .Q24H [facility] Rx#:[id number] propofoL 1,000 mg In 292.686 274.128 200 Empty Bag 1 bag @ 15 MCG/ KG/MIN 7.552 mls/hr IV . [id number] [facility] Rx#:[id number] Tube Feeding 40 232 60 Other 30 90 90 Output: Urine 725 545 710 Other: Voiding Method Indwelling Catheter Indwelling Catheter ABP, PAP, CO, CI - Last Documented Arterial Blood Pressure 108/82 - Exam GENERAL DESCRIPTION: Elderly female intubated on the vent RESPIRATORY SYSTEM: Unlabored breathing , decreased breath sounds at bases HEART: S1 S2 regular rate and rhythm ,no loud murmurs ABDOMEN: Soft , no tenderness EXTREMITIES: No edema feet - Labs CBC & Chem 7: 08/06/23 04:15 08/06/23 04:15 Labs: Abnormal Lab Results - Last 24 Hours (Table) 08/05/23 08/05/23 08/05/23 Range/Units 18:02 20:00 20:02 WBC (3.8-10.6) k/uL Hgb (11.4-16.0) gm/dL Hct (34.0-46.0) % MCV (80.0-100.0) fL MCH (25.0-35.0) pg MCHC (31.0-37.0) g/dL RDW (11.5-15.5) % Neutrophils # (1.3-7.7) k/uL ABG Total CO2 (19-24) mmol/L ABG O2 Saturation (94-97) % Chloride 111 H (98-107) mmol/L Carbon Dioxide 18 L (22-30) mmol/L Creatinine (0.52-1.04) mg/dL Glucose 208 H (74-99) mg/dL POC Glucose (mg/dL) 230 H 227 H (70-110) mg/dL Calcium 7.9 L (8.4-10.2) mg/dL AST (14-36) U/L Total Protein (6.3-8.2) g/dL Albumin (3.5-5.0) g/dL 08/05/23 08/05/23 08/05/23 Range/Units 21:13 22:18 22:49 WBC (3.8-10.6) k/uL Hgb (11.4-16.0) gm/dL Hct (34.0-46.0) % MCV (80.0-100.0) fL MCH (25.0-35.0) pg MCHC (31.0-37.0) g/dL RDW (11.5-15.5) % Neutrophils # (1.3-7.7) k/uL ABG Total CO2 (19-24) mmol/L ABG O2 Saturation (94-97) % Chloride (98-107) mmol/L Carbon Dioxide (22-30) mmol/L Creatinine (0.52-1.04) mg/dL Glucose (74-99) mg/dL POC Glucose (mg/dL) 230 H 228 H 185 H (70-110) mg/dL Calcium (8.4-10.2) mg/dL AST (14-36) U/L Total Protein (6.3-8.2) g/dL Albumin (3.5-5.0) g/dL 08/06/23 08/06/23 08/06/23 Range/Units 00:05 00:09 01:01 WBC (3.8-10.6) k/uL Hgb (11.4-16.0) gm/dL Hct (34.0-46.0) % MCV (80.0-100.0) fL MCH (25.0-35.0) pg MCHC (31.0-37.0) g/dL RDW (11.5-15.5) % Neutrophils # (1.3-7.7) k/uL ABG Total CO2 (19-24) mmol/L ABG O2 Saturation (94-97) % Chloride 110 H (98-107) mmol/L Carbon Dioxide 18 L (22-30) mmol/L Creatinine 0.51 L (0.52-1.04) mg/dL Glucose 210 H (74-99) mg/dL POC Glucose (mg/dL) 235 H 236 H (70-110) mg/dL Calcium 7.8 L (8.4-10.2) mg/dL AST (14-36) U/L Total Protein (6.3-8.2) g/dL Albumin (3.5-5.0) g/dL 08/06/23 08/06/23 08/06/23 Range/Units 01:56 02:54 04:12 WBC (3.8-10.6) k/uL Hgb (11.4-16.0) gm/dL Hct (34.0-46.0) % MCV (80.0-100.0) fL MCH (25.0-35.0) pg MCHC (31.0-37.0) g/dL RDW (11.5-15.5) % Neutrophils # (1.3-7.7) k/uL ABG Total CO2 (19-24) mmol/L ABG O2 Saturation (94-97) % Chloride (98-107) mmol/L Carbon Dioxide (22-30) mmol/L Creatinine (0.52-1.04) mg/dL Glucose (74-99) mg/dL POC Glucose (mg/dL) 225 H 189 H 172 H (70-110) mg/dL Calcium (8.4-10.2) mg/dL AST (14-36) U/L Total Protein (6.3-8.2) g/dL Albumin (3.5-5.0) g/dL 08/06/23 08/06/23 08/06/23 Range/Units 04:15 04:15 05:23 WBC 17.0 H (3.8-10.6) k/uL Hgb 9.9 L (11.4-16.0) gm/dL Hct 32.1 L (34.0-46.0) % MCV 73.3 L (80.0-100.0) fL MCH 22.6 L (25.0-35.0) pg MCHC 30.9 L (31.0-37.0) g/dL RDW 17.9 H (11.5-15.5) % Neutrophils # 14.1 H (1.3-7.7) k/uL ABG Total CO2 (19-24) mmol/L ABG O2 Saturation (94-97) % Chloride 109 H (98-107) mmol/L Carbon Dioxide (22-30) mmol/L Creatinine (0.52-1.04) mg/dL Glucose 166 H (74-99) mg/dL POC Glucose (mg/dL) 187 H (70-110) mg/dL Calcium 8.1 L (8.4-10.2) mg/dL AST 40 H (14-36) U/L Total Protein 5.1 L (6.3-8.2) g/dL Albumin 2.8 L (3.5-5.0) g/dL 08/06/23 08/06/23 08/06/23 Range/Units 05:33 06:11 09:21 WBC (3.8-10.6) k/uL Hgb (11.4-16.0) gm/dL Hct (34.0-46.0) % MCV (80.0-100.0) fL MCH (25.0-35.0) pg MCHC (31.0-37.0) g/dL RDW (11.5-15.5) % Neutrophils # (1.3-7.7) k/uL ABG Total CO2 26 H (19-24) mmol/L ABG O2 Saturation 98.5 H (94-97) % Chloride (98-107) mmol/L Carbon Dioxide (22-30) mmol/L Creatinine (0.52-1.04) mg/dL Glucose (74-99) mg/dL POC Glucose (mg/dL) 210 H 309 H (70-110) mg/dL Calcium (8.4-10.2) mg/dL AST (14-36) U/L Total Protein (6.3-8.2) g/dL Albumin (3.5-5.0) g/dL 08/06/23 08/06/23 08/06/23 Range/Units 11:36 12:24 13:15 WBC (3.8-10.6) k/uL Hgb (11.4-16.0) gm/dL Hct (34.0-46.0) % MCV (80.0-100.0) fL MCH (25.0-35.0) pg MCHC (31.0-37.0) g/dL RDW (11.5-15.5) % Neutrophils # (1.3-7.7) k/uL ABG Total CO2 (19-24) mmol/L ABG O2 Saturation (94-97) % Chloride (98-107) mmol/L Carbon Dioxide (22-30) mmol/L Creatinine (0.52-1.04) mg/dL Glucose (74-99) mg/dL POC Glucose (mg/dL) 295 H 275 H 253 H (70-110) mg/dL Calcium (8.4-10.2) mg/dL AST (14-36) U/L Total Protein (6.3-8.2) g/dL Albumin (3.5-5.0) g/dL 08/06/23 08/06/23 Range/Units 14:14 16:10 WBC (3.8-10.6) k/uL Hgb (11.4-16.0) gm/dL Hct (34.0-46.0) % MCV (80.0-100.0) fL MCH (25.0-35.0) pg MCHC (31.0-37.0) g/dL RDW (11.5-15.5) % Neutrophils # (1.3-7.7) k/uL ABG Total CO2 (19-24) mmol/L ABG O2 Saturation (94-97) % Chloride (98-107) mmol/L Carbon Dioxide (22-30) mmol/L Creatinine (0.52-1.04) mg/dL Glucose (74-99) mg/dL POC Glucose (mg/dL) 269 H 268 H (70-110) mg/dL Calcium (8.4-10.2) mg/dL AST (14-36) U/L Total Protein (6.3-8.2) g/dL Albumin (3.5-5.0) g/dL Microbiology - Last 24 Hours (Table) 08/05/23 04:15 Blood Culture - Preliminary Blood 08/05/23 04:00 Blood Culture - Preliminary Blood 08/05/23 03:50 Gram Stain - Preliminary Sputum Assessment and Plan (1) Aspiration pneumonia Current Visit: Yes Status: Acute Code(s): J69.0 - PNEUMONITIS DUE TO INHALATION OF FOOD AND VOMIT SNOMED Code(s): 554685918 (2) Allergy to multiple antibiotics Current Visit: Yes Status: Acute Code(s): Z88.1 - ALLERGY STATUS TO OTHER ANTIBIOTIC AGENTS SNOMED Code(s): 607917792 (3) Sepsis Current Visit: Yes Status: Acute Code(s): A41.9 - SEPSIS, UNSPECIFIED ORGANISM SNOMED Code(s): 00180848 Plan: 1patient with a SIRS/sepsis in this patient with a leukocytosis and did have elevated lactic acid and tachycardia, patient presented hospital with agitation weakness some shortness of breath which is likely multifactorial patient did have some acute infiltrate on chest x-ray and concern for possible aspiration pneumonitis not entirely excluded currently no other obvious focus of infection, patient did have a negative UA abdomin soft on clinical examination no evidence of any joint swelling or redness 2sputum has been obtained and cultures will be followed. 3patient WBC is trending down and off pressor support , to continue with the Zosyn 3.375 g every 8 hours while waiting for the culture to finalize Dictation was produced using [employer] dictation software. please excuse any grammatical, word or spelling errors. Time with Patient: Less than 30
[2023-08-06 20:04] LABS: Glucose,Whole Blood 299 mg/dL (70-110)
[2023-08-06] MEDS: CHLORHEXIDINE GLUCONATE 15 ML CUP MUCOUS MEM SCH (20:23)
[2023-08-06 22:13] LABS: Glucose,Whole Blood 329 mg/dL (70-110)
[2023-08-07 00:02] LABS: Glucose,Whole Blood 306 mg/dL (70-110)
[2023-08-07] MEDS: HYDROmorphone 0.5 MG/0.5 ML SYRINGE IVP PRN ×5 (00:22→22:34)
[2023-08-07 02:23] LABS: Glucose,Whole Blood 291 mg/dL (70-110)
[2023-08-07 04:22] LABS: Glucose,Whole Blood 248 mg/dL (70-110)
[2023-08-07 04:50] LABS: Anisocytosis Slight; Basophils % (A) 0 %; Eosinophils % (A) 0 %; HCT 27.4 % (34.0-46.0); Hypochromasia Marked; Lymphocytes % (A) 12 %; MCH 22.6 pg (25.0-35.0); MCV 75.2 fL (80.0-100.0); Mean Platelet Volume 9.1; Microcytosis Moderate; Monocytes # (A) 0.3 k/uL (0-1.0); Monocytes % (A) 4 %; Neutrophils % (A) 83 %; Platelet Count 194 k/uL (150-450); RBC 3.64 m/uL (3.80-5.40); RDW 17.9 % (11.5-15.5); WBC 8.5 k/uL (3.8-10.6)
[2023-08-07] MEDS: methylPREDNISolone SOD SUCCI 40 MG/ML 1 ML VIAL IV SCH ×2 (04:51→16:20)
[2023-08-07 04:52] LABS: HGB 8.2 gm/dL (11.4-16.0)
[2023-08-07 05:22] LABS: African American GFR (CKD) >90 (>60 ml/min/1.73 sqM); Anion Gap 4 mmol/L; Blood Urea Nitrogen 17 mg/dL (7-17); Calcium 7.7 mg/dL (8.4-10.2); Carbon Dioxide 23 mmol/L (22-30); Chloride 111 mmol/L (98-107); Glucose 232 mg/dL (74-99); Non-African American GFR(CKD) >90 (>60 ml/min/1.73 sqM); Potassium 3.7 mmol/L (3.5-5.1); Sodium 138 mmol/L (137-145)
[2023-08-07 05:29] LABS: Glucose,Whole Blood 240 mg/dL (70-110)
[2023-08-07] MEDS ORDERED: POTASSIUM BICARBONATE/CIT AC 20 MEQ TABLET.EFF NG-TUBE SCH (06:00)
[2023-08-07 06:37] LABS: Glucose,Whole Blood 233 mg/dL (70-110)
[2023-08-07] MEDS: INSULIN REGULAR 100 UNIT in SODIUM CHLORIDE 0.9% 100 ML IV SCH ×3 (06:37→21:26)
[2023-08-07] MEDS: PANTOPRAZOLE 40 MG TABLET PO SCH (07:07)
[2023-08-07 07:11] LABS: Glucose,Whole Blood 238 mg/dL (70-110)
--- NOTE | 2023-08-07 07:49 | P.PN ---
Subjective Progress Note Date: 08/07/23 PROGRESS NOTE The patient is a 72-year-old female with known history of CAD status post CABG and PCI, history of diabetes, asthma who presented with respiratory distress requiring mechanical ventilation and possible sepsis. She remains intubated and sedated. She is on a low dose of norepinephrine. She continues to be in sinus mechanism. Her urinary output has been stable. There is no evidence of atrial fibrillation or ventricular tachycardia. She underwent stenting in November of this year by Dr. Grewal. She had an echocardiogram in June that showed an ejection fraction of 30-35% with [id number] mitral regurgitation and inferior wall hypokinesis. She had episodes of sinus tachycardia and she was started on a beta marcso. Medications: Aspirin, Plavix 75 mg daily, Lovenox, metoprolol tartrate 25 mg twice a day PHYSICAL EXAMINATION: Blood pressure 104/60 heart rate 60, intubated and sedated LUNGS: Clear to auscultation, anteriorly HEART: Regular rate and rhythm, S1, S2. No S3. Systolic ejection murmur ABDOMEN: Soft, positive bowel sounds, no organomegaly EXTREMETIES: No edema LAB: Hemoglobin 8.2, platelets count 194, creatinine 0.56, BUN 17 IMPRESSION: 1. Respiratory failure, multifactorial, possible aspiration pneumonia 2. History of CAD status post CABG and PCI 3. History of ischemic cardiomyopathy 4. History of COPD PLAN: 1. Continue present therapy 2. Wean and extubate as tolerated 3. Restart statin 4. Once extubated add Farxiga 10 mg daily 5. Follow renal functions 6. Depending on her progress further recommendations will be made Objective - Vital Signs Vital signs: Vital Signs Temp 97.8 F 08/07/23 04:00 Pulse 52 L 08/07/23 07:00 Resp 20 08/07/23 07:00 BP 98/56 08/07/23 07:00 Pulse Ox 99 08/07/23 07:00 FiO2 35 08/07/23 06:09 Intake & Output 08/06/23 08/07/23 08/07/23 18:59 06:59 18:59 Intake Total 6324.350 4615.873 Output Total 810 1180 Balance 1155.781 577.873 Intake: IV 1460 1300 .9 KVO 60 Piperacillin-Tazobactam 3 200 100 .375 gm In Sodium Chloride 0.9% 100 ml @ 25 mls/hr IVPB Q8HR [facility] Rx# :[id number] Sodium Chloride 0.9% 1, 1200 1200 000 ml @ 100 mls/hr IV . Q10H [facility] Rx#:[id number] Intake, IV Titration 335.781 337.873 Amount Insulin Regular 100 unit 12.704 15.425 In Sodium Chloride 0.9% 100 ml @ 0.1 UNITS/KG/HR 8.475 mls/hr IV .[id number] [facility] Rx#:[id number] Norepinephrine 4 mg In 0.426 Sodium Chloride 0.9% 250 ml @ 0.03 MCG/KG/MIN 9. 591 mls/hr IV .Q24H [facility] Rx#:[id number] propofoL 1,000 mg In 323.077 322.022 Empty Bag 1 bag @ 15 MCG/ KG/MIN 7.552 mls/hr IV . [id number] [facility] Rx#:[id number] Tube Feeding 80 90 Other 90 30 Output: Urine 810 1180 Other: Voiding Method Indwelling Catheter Indwelling Catheter ABP, PAP, CO, CI - Last Documented Arterial Blood Pressure 108/82 - Labs CBC & Chem 7: 08/07/23 04:28 08/07/23 04:28 Labs: Abnormal Lab Results - Last 24 Hours (Table) 08/06/23 08/06/23 08/06/23 Range/Units 09:21 11:36 12:24 RBC (3.80-5.40) m/uL Hgb (11.4-16.0) gm/dL Hct (34.0-46.0) % MCV (80.0-100.0) fL MCH (25.0-35.0) pg MCHC (31.0-37.0) g/dL RDW (11.5-15.5) % Chloride (98-107) mmol/L Glucose (74-99) mg/dL POC Glucose (mg/dL) 309 H 295 H 275 H (70-110) mg/dL Calcium (8.4-10.2) mg/dL 08/06/23 08/06/23 08/06/23 Range/Units 13:15 14:14 16:10 RBC (3.80-5.40) m/uL Hgb (11.4-16.0) gm/dL Hct (34.0-46.0) % MCV (80.0-100.0) fL MCH (25.0-35.0) pg MCHC (31.0-37.0) g/dL RDW (11.5-15.5) % Chloride (98-107) mmol/L Glucose (74-99) mg/dL POC Glucose (mg/dL) 253 H 269 H 268 H (70-110) mg/dL Calcium (8.4-10.2) mg/dL 08/06/23 08/06/23 08/06/23 Range/Units 18:15 20:02 22:10 RBC (3.80-5.40) m/uL Hgb (11.4-16.0) gm/dL Hct (34.0-46.0) % MCV (80.0-100.0) fL MCH (25.0-35.0) pg MCHC (31.0-37.0) g/dL RDW (11.5-15.5) % Chloride (98-107) mmol/L Glucose (74-99) mg/dL POC Glucose (mg/dL) 302 H 299 H 329 H (70-110) mg/dL Calcium (8.4-10.2) mg/dL 08/07/23 08/07/23 08/07/23 Range/Units 00:00 02:22 04:21 RBC (3.80-5.40) m/uL Hgb (11.4-16.0) gm/dL Hct (34.0-46.0) % MCV (80.0-100.0) fL MCH (25.0-35.0) pg MCHC (31.0-37.0) g/dL RDW (11.5-15.5) % Chloride (98-107) mmol/L Glucose (74-99) mg/dL POC Glucose (mg/dL) 306 H 291 H 248 H (70-110) mg/dL Calcium (8.4-10.2) mg/dL 08/07/23 08/07/23 08/07/23 Range/Units 04:28 04:28 05:28 RBC 3.64 L (3.80-5.40) m/uL Hgb 8.2 L D (11.4-16.0) gm/dL Hct 27.4 L (34.0-46.0) % MCV 75.2 L (80.0-100.0) fL MCH 22.6 L (25.0-35.0) pg MCHC 30.0 L (31.0-37.0) g/dL RDW 17.9 H (11.5-15.5) % Chloride 111 H (98-107) mmol/L Glucose 232 H (74-99) mg/dL POC Glucose (mg/dL) 240 H (70-110) mg/dL Calcium 7.7 L (8.4-10.2) mg/dL 08/07/23 08/07/23 Range/Units 06:35 07:10 RBC (3.80-5.40) m/uL Hgb (11.4-16.0) gm/dL Hct (34.0-46.0) % MCV (80.0-100.0) fL MCH (25.0-35.0) pg MCHC (31.0-37.0) g/dL RDW (11.5-15.5) % Chloride (98-107) mmol/L Glucose (74-99) mg/dL POC Glucose (mg/dL) 233 H 238 H (70-110) mg/dL Calcium (8.4-10.2) mg/dL Microbiology - Last 24 Hours (Table) 08/05/23 04:15 Blood Culture - Preliminary Blood 08/05/23 04:00 Blood Culture - Preliminary Blood 08/05/23 03:50 Gram Stain - Preliminary Sputum
[2023-08-07 07:52] LABS: Glucose,Whole Blood 249 mg/dL (70-110)
--- NOTE | 2023-08-07 08:14 | XR ---
EXAMINATION TYPE: XR chest 1V portable DATE OF EXAM: 08/07/2023 COMPARISON: 08/06/2023 INDICATION: Tube placement TECHNIQUE: Single frontal view of the chest is obtained. FINDINGS: The heart size is mildly prominent. The pulmonary vasculature is prominent. Small left pleural effusion is present. Some mild infiltrates at the right diaphragm. There is an endotracheal tube with the tip high within the trachea. This is 9 cm above the nahun and can be advanced approximately 6 cm. Nasogastric tube is present with the tip in the left upper quadr ant of the abdomen. Right central venous catheter is present with the tip in the distal superior vena cava region. No pneumothorax is evident. IMPRESSION: 1. Clinical correlation recommended for congestive heart failure. Small pleural effusion and mild rig ht lower lobe infiltrate may be present. 2. Multiple lines and catheters discussed above. The endotracheal tube appears to be pulled back some what from its prior study can be advanced approximately 6 cm for better positioning.
[2023-08-07 08:16] LABS: Magnesium 2.1 mg/dL (1.6-2.3); Phosphorus 2.9 mg/dL (2.5-4.5)
[2023-08-07] MEDS: METOPROLOL TARTRATE 25 MG TAB PO SCH ×2 (08:23→20:20)
[2023-08-07] MEDS: PIPERACILLIN-TAZOBACTAM 3.375 GM in SODIUM CHLORIDE 0.9% 100 ML IVPB SCH ×3 (08:29→23:06)
[2023-08-07] MEDS: BUDESONIDE 1 MG/2 ML NEBU INHALATION SCH ×2 (08:40→21:41)
[2023-08-07] MEDS: FORMOTEROL FUMARATE 20 MCG/2 ML NEBU INHALATION SCH ×2 (08:40→21:41)
[2023-08-07] MEDS: IPRATROPIUM-ALBUTEROL 3 ML NEB INHALATION SCH ×4 (08:40→21:42)
--- NOTE | 2023-08-07 09:05 | P.PN ---
Subjective Progress Note Date: 08/05/23 This is a 72-year-old female patient who presented to the ER with multiple complaints. Patient is currently sedated on BiPAP all information is obtained from medical record no family at bedside Upon arrival to the ER it appears that patient came very agitated and family returned her back to the ER according to ER reports complaints upon arrival include chest discomfort coughing nausea hyperglycemia anxiety and diaphoresis. Per records patient symptoms have been occurring over the past 2 days with elevated blood sugars. Patient has a past medical history of asthma, coronary artery disease with coronary artery bypass graft surgery, heart failure, COPD, diabetes mellitus, fibromyalgia, hyperlipi demia, hypertension, diabetes mellitus, sleep apnea and ex-smoker. Chest x-ray performed showing cardiomegaly with mild central vascular congestion and new right upper to midlung acute infiltrate and/or edema. Head CT completed showing no acute intracranial hemorrhage or midline shift there is mild diffuse age- related cerebral atrophy and chronic small vessel ischemic changes significant change from prior. Thoracic aorta CT performed showing borderline aneurysmal dilation of the ascending thoracic aorta the remainder daily order is of normal caliber no dissection of intra-mural hematoma seen. Blood sugar upon arrival 831, sodium 123, potassium 5.5, lactic acid 6.8, WBC 23.0. Patient also noted to have significant tachycardia initially elevated at 151. Patient was given multiple medications in ER due to agitation. Patient was placed on BiPAP. Patient was started on IV Zosyn, IV Solu-Medrol and insulin drip. Patient will be admitted to the intensive care unit patient also started on Precedex per critical care services. Will consult infectious disease due to sepsis. Drug screen ordered repeat labs ordered. Will also consult cardiology services due to initial complaints of chest pain and elevated heart rate. On 08/05/2023 patient was seen and examined in the ICU she is currently intubated sedated maintained on mechanical ventilation. Vital exam reveals a temperature of 99.9 pulse 72 respiration 22 blood pressure 118/53 pulse ox 100% on FiO2 of 50% Arterial blood gas reveals a pH of 7.44 pCO2 33 by mouth to 186 white blood count 23.8 hemoglobin 10.4 platelet count 371 sodium 136 potassium 4.2 chloride 108 CO2 22 BUN 20 creatinine 0.67 Objective - Vital Signs Vital signs: Vital Signs Temp 99.9 F H 08/05/23 08:00 Pulse 75 08/05/23 09:00 Resp 22 08/05/23 09:00 BP 105/58 08/05/23 08:15 Pulse Ox 100 08/05/23 09:00 FiO2 40 08/05/23 09:04 Intake & Output 08/04/23 08/05/23 08/05/23 18:59 06:59 18:59 Intake Total 983.717 9178.446 571.118 Output Total 600 1555 180 Balance -768.786 4424.446 391.118 Weight 85.8 kg Intake: IV 520 .9 KVO 20 D5-0.45% NaCl with KCl 300 20Meq/l 1,000 ml @ 150 mls/hr IV .Q6H40M [facility] Rx# :[id number] Piperacillin-Tazobactam 3 100 .375 gm In Sodium Chloride 0.9% 100 ml @ 25 mls/hr IVPB Q8HR [facility] Rx# :[id number] Sodium Chloride 0.9% 1, 100 000 ml @ 100 mls/hr IV . Q10H [facility] Rx#:[id number] Intake, IV Titration 147.107 2503.446 51.118 Amount D5-0.45% NaCl with KCl 1050 20Meq/l 1,000 ml @ 150 mls/hr IV .Q6H40M [facility] Rx# :[id number] D5-0.45% NaCl with KCl 750 20Meq/l 1,000 ml @ 50 mls /hr IV .Q20H [facility] Rx#: [id number] Dexmedetomidine/0.9% NaCl 92.761 101.504 51.118 (Pmx) 400 mcg In Empty Bag 1 bag @ 0.2 MCG/KG/HR 4.196 mls/hr IV .[id number] [facility] Rx#:[id number] Insulin Regular 100 unit 72.461 31.636 In Sodium Chloride 0.9% 100 ml @ 0.1 UNITS/KG/HR 8.475 mls/hr IV .[id number] [facility] Rx#:[id number] Norepinephrine 4 mg In 359.894 Sodium Chloride 0.9% 250 ml @ 0.03 MCG/KG/MIN 9. 591 mls/hr IV .Q24H [facility] Rx#:[id number] Piperacillin-Tazobactam 3 25 .375 gm In Sodium Chloride 0.9% 100 ml @ 200 mls/hr IVPB [facility] Rx#:[id number] Piperacillin-Tazobactam 3 75 .375 gm In Sodium Chloride 0.9% 100 ml @ 25 mls/hr IVPB Q8HR [facility] Rx# :[id number] propofoL 1,000 mg In 185.412 Empty Bag 1 bag @ 15 MCG/ KG/MIN 7.552 mls/hr IV . [id number] [facility] Rx#:[id number] Output: Urine 600 1555 180 Other: Voiding Method Indwelling Catheter ABP, PAP, CO, CI - Last Documented Arterial Blood Pressure 114/53 - Exam In general patient is intubated sedated maintained on mechanical ventilation HEENT head normocephalic and atraumatic Neck is supple no JVD no goiter no lymphadenopathy no carotid bruit Chest examination is clear to auscultation no crackles no wheezing Cardiac exam reveals regular heart sounds S1 and S2 no gallops no murmurs Abdomen is soft nontender no organomegaly with normal bowel sounds Extremity exam reveals no edema no cyanosis or clubbing Neurological examination reveals no gross focal deficits - Labs CBC & Chem 7: 08/05/23 04:05 08/05/23 09:40 Labs: Abnormal Lab Results - Last 24 Hours (Table) 08/04/23 08/04/23 08/04/23 Range/Units 09:14 10:18 11:43 WBC (3.8-10.6) k/uL Hgb (11.4-16.0) gm/dL Hct (34.0-46.0) % MCV (80.0-100.0) fL MCH (25.0-35.0) pg RDW (11.5-15.5) % Neutrophils # (1.3-7.7) k/uL D-Dimer (<0.60) mg/L FEU ABG pH (7.35-7.45) ABG pCO2 (35-45) mmHg ABG pO2 (83-108) mmHg ABG HCO3 (21-25) mmol/L ABG Total CO2 (19-24) mmol/L ABG O2 Saturation (94-97) % Carbon Dioxide (22-30) mmol/L BUN (7-17) mg/dL Glucose (74-99) mg/dL POC Glucose (mg/dL) >600 H >600 H (70-110) mg/dL Plasma Lactic Acid Angel 5.5 H* (0.7-2.0) mmol/L Calcium (8.4-10.2) mg/dL Phosphorus (2.5-4.5) mg/dL Urine Appearance (Clear) Urine Glucose (UA) (Negative) Uric Acid Crystals (None) /hpf Urine Bacteria (None) /hpf Hyaline Casts (0-2) /lpf 08/04/23 08/04/23 08/04/23 Range/Units 12:28 13:32 13:57 WBC (3.8-10.6) k/uL Hgb (11.4-16.0) gm/dL Hct (34.0-46.0) % MCV (80.0-100.0) fL MCH (25.0-35.0) pg RDW (11.5-15.5) % Neutrophils # (1.3-7.7) k/uL D-Dimer (<0.60) mg/L FEU ABG pH (7.35-7.45) ABG pCO2 (35-45) mmHg ABG pO2 (83-108) mmHg ABG HCO3 (21-25) mmol/L ABG Total CO2 (19-24) mmol/L ABG O2 Saturation (94-97) % Carbon Dioxide (22-30) mmol/L BUN (7-17) mg/dL Glucose (74-99) mg/dL POC Glucose (mg/dL) 569 H 539 H (70-110) mg/dL Plasma Lactic Acid Angel 3.1 H* (0.7-2.0) mmol/L Calcium (8.4-10.2) mg/dL Phosphorus (2.5-4.5) mg/dL Urine Appearance (Clear) Urine Glucose (UA) (Negative) Uric Acid Crystals (None) /hpf Urine Bacteria (None) /hpf Hyaline Casts (0-2) /lpf 08/04/23 08/04/23 08/04/23 Range/Units 14:28 15:21 15:45 WBC (3.8-10.6) k/uL Hgb (11.4-16.0) gm/dL Hct (34.0-46.0) % MCV (80.0-100.0) fL MCH (25.0-35.0) pg RDW (11.5-15.5) % Neutrophils # (1.3-7.7) k/uL D-Dimer (<0.60) mg/L FEU ABG pH (7.35-7.45) ABG pCO2 (35-45) mmHg ABG pO2 (83-108) mmHg ABG HCO3 (21-25) mmol/L ABG Total CO2 (19-24) mmol/L ABG O2 Saturation (94-97) % Carbon Dioxide 20 L (22-30) mmol/L BUN 39 H (7-17) mg/dL Glucose 227 H (74-99) mg/dL POC Glucose (mg/dL) 437 H 363 H (70-110) mg/dL Plasma Lactic Acid Angel (0.7-2.0) mmol/L Calcium (8.4-10.2) mg/dL Phosphorus 4.6 H (2.5-4.5) mg/dL Urine Appearance (Clear) Urine Glucose (UA) (Negative) Uric Acid Crystals (None) /hpf Urine Bacteria (None) /hpf Hyaline Casts (0-2) /lpf 08/04/23 08/04/23 08/04/23 Range/Units 17:32 17:33 19:34 WBC (3.8-10.6) k/uL Hgb (11.4-16.0) gm/dL Hct (34.0-46.0) % MCV (80.0-100.0) fL MCH (25.0-35.0) pg RDW (11.5-15.5) % Neutrophils # (1.3-7.7) k/uL D-Dimer (<0.60) mg/L FEU ABG pH 7.34 L (7.35-7.45) ABG pCO2 (35-45) mmHg ABG pO2 26 L* (83-108) mmHg ABG HCO3 (21-25) mmol/L ABG Total CO2 25 H (19-24) mmol/L ABG O2 Saturation 36.5 L (94-97) % Carbon Dioxide (22-30) mmol/L BUN (7-17) mg/dL Glucose (74-99) mg/dL POC Glucose (mg/dL) 191 H (70-110) mg/dL Plasma Lactic Acid Angel 3.3 H* (0.7-2.0) mmol/L Calcium (8.4-10.2) mg/dL Phosphorus (2.5-4.5) mg/dL Urine Appearance (Clear) Urine Glucose (UA) (Negative) Uric Acid Crystals (None) /hpf Urine Bacteria (None) /hpf Hyaline Casts (0-2) /lpf 08/04/23 08/04/23 08/04/23 Range/Units 19:43 20:16 20:25 WBC (3.8-10.6) k/uL Hgb (11.4-16.0) gm/dL Hct (34.0-46.0) % MCV (80.0-100.0) fL MCH (25.0-35.0) pg RDW (11.5-15.5) % Neutrophils # (1.3-7.7) k/uL D-Dimer (<0.60) mg/L FEU ABG pH 7.20 L (7.35-7.45) ABG pCO2 28 L (35-45) mmHg ABG pO2 44 L* (83-108) mmHg ABG HCO3 11 L (21-25) mmol/L ABG Total CO2 12 L (19-24) mmol/L ABG O2 Saturation 73.7 L (94-97) % Carbon Dioxide (22-30) mmol/L BUN (7-17) mg/dL Glucose (74-99) mg/dL POC Glucose (mg/dL) 222 H 238 H (70-110) mg/dL Plasma Lactic Acid Angel (0.7-2.0) mmol/L Calcium (8.4-10.2) mg/dL Phosphorus (2.5-4.5) mg/dL Urine Appearance (Clear) Urine Glucose (UA) (Negative) Uric Acid Crystals (None) /hpf Urine Bacteria (None) /hpf Hyaline Casts (0-2) /lpf 08/04/23 08/04/23 08/04/23 Range/Units 20:28 20:28 20:40 WBC (3.8-10.6) k/uL Hgb (11.4-16.0) gm/dL Hct (34.0-46.0) % MCV (80.0-100.0) fL MCH (25.0-35.0) pg RDW (11.5-15.5) % Neutrophils # (1.3-7.7) k/uL D-Dimer 2.23 H (<0.60) mg/L FEU ABG pH (7.35-7.45) ABG pCO2 (35-45) mmHg ABG pO2 (83-108) mmHg ABG HCO3 (21-25) mmol/L ABG Total CO2 (19-24) mmol/L ABG O2 Saturation (94-97) % Carbon Dioxide 21 L (22-30) mmol/L BUN 36 H (7-17) mg/dL Glucose 217 H (74-99) mg/dL POC Glucose (mg/dL) (70-110) mg/dL Plasma Lactic Acid Angel 3.6 H* (0.7-2.0) mmol/L Calcium (8.4-10.2) mg/dL Phosphorus (2.5-4.5) mg/dL Urine Appearance (Clear) Urine Glucose (UA) (Negative) Uric Acid Crystals (None) /hpf Urine Bacteria (None) /hpf Hyaline Casts (0-2) /lpf 08/04/23 08/04/23 08/04/23 Range/Units 21:09 22:06 22:10 WBC (3.8-10.6) k/uL Hgb (11.4-16.0) gm/dL Hct (34.0-46.0) % MCV (80.0-100.0) fL MCH (25.0-35.0) pg RDW (11.5-15.5) % Neutrophils # (1.3-7.7) k/uL D-Dimer (<0.60) mg/L FEU ABG pH (7.35-7.45) ABG pCO2 (35-45) mmHg ABG pO2 286 H (83-108) mmHg ABG HCO3 (21-25) mmol/L ABG Total CO2 (19-24) mmol/L ABG O2 Saturation 100.0 H (94-97) % Carbon Dioxide (22-30) mmol/L BUN (7-17) mg/dL Glucose (74-99) mg/dL POC Glucose (mg/dL) 215 H 283 H (70-110) mg/dL Plasma Lactic Acid Angel (0.7-2.0) mmol/L Calcium (8.4-10.2) mg/dL Phosphorus (2.5-4.5) mg/dL Urine Appearance (Clear) Urine Glucose (UA) (Negative) Uric Acid Crystals (None) /hpf Urine Bacteria (None) /hpf Hyaline Casts (0-2) /lpf 08/04/23 08/05/23 08/05/23 Range/Units 23:05 00:07 01:03 WBC (3.8-10.6) k/uL Hgb (11.4-16.0) gm/dL Hct (34.0-46.0) % MCV (80.0-100.0) fL MCH (25.0-35.0) pg RDW (11.5-15.5) % Neutrophils # (1.3-7.7) k/uL D-Dimer (<0.60) mg/L FEU ABG pH (7.35-7.45) ABG pCO2 (35-45) mmHg ABG pO2 (83-108) mmHg ABG HCO3 (21-25) mmol/L ABG Total CO2 (19-24) mmol/L ABG O2 Saturation (94-97) % Carbon Dioxide (22-30) mmol/L BUN (7-17) mg/dL Glucose (74-99) mg/dL POC Glucose (mg/dL) 293 H 202 H 308 H (70-110) mg/dL Plasma Lactic Acid Angel (0.7-2.0) mmol/L Calcium (8.4-10.2) mg/dL Phosphorus (2.5-4.5) mg/dL Urine Appearance (Clear) Urine Glucose (UA) (Negative) Uric Acid Crystals (None) /hpf Urine Bacteria (None) /hpf Hyaline Casts (0-2) /lpf 08/05/23 08/05/23 08/05/23 Range/Units 01:10 02:00 03:08 WBC (3.8-10.6) k/uL Hgb (11.4-16.0) gm/dL Hct (34.0-46.0) % MCV (80.0-100.0) fL MCH (25.0-35.0) pg RDW (11.5-15.5) % Neutrophils # (1.3-7.7) k/uL D-Dimer (<0.60) mg/L FEU ABG pH (7.35-7.45) ABG pCO2 (35-45) mmHg ABG pO2 (83-108) mmHg ABG HCO3 (21-25) mmol/L ABG Total CO2 (19-24) mmol/L ABG O2 Saturation (94-97) % Carbon Dioxide 18 L (22-30) mmol/L BUN 29 H (7-17) mg/dL Glucose 268 H (74-99) mg/dL POC Glucose (mg/dL) 264 H 262 H (70-110) mg/dL Plasma Lactic Acid Angel (0.7-2.0) mmol/L Calcium (8.4-10.2) mg/dL Phosphorus (2.5-4.5) mg/dL Urine Appearance (Clear) Urine Glucose (UA) (Negative) Uric Acid Crystals (None) /hpf Urine Bacteria (None) /hpf Hyaline Casts (0-2) /lpf 08/05/23 08/05/23 08/05/23 Range/Units 04:04 04:05 04:05 WBC 23.8 H (3.8-10.6) k/uL Hgb 10.4 L (11.4-16.0) gm/dL Hct 33.6 L (34.0-46.0) % MCV 72.6 L (80.0-100.0) fL MCH 22.6 L (25.0-35.0) pg RDW 17.2 H (11.5-15.5) % Neutrophils # 21.5 H (1.3-7.7) k/uL D-Dimer (<0.60) mg/L FEU ABG pH (7.35-7.45) ABG pCO2 (35-45) mmHg ABG pO2 (83-108) mmHg ABG HCO3 (21-25) mmol/L ABG Total CO2 (19-24) mmol/L ABG O2 Saturation (94-97) % Carbon Dioxide 19 L (22-30) mmol/L BUN 26 H (7-17) mg/dL Glucose 267 H (74-99) mg/dL POC Glucose (mg/dL) 282 H (70-110) mg/dL Plasma Lactic Acid Angel (0.7-2.0) mmol/L Calcium 8.2 L (8.4-10.2) mg/dL Phosphorus (2.5-4.5) mg/dL Urine Appearance (Clear) Urine Glucose (UA) (Negative) Uric Acid Crystals (None) /hpf Urine Bacteria (None) /hpf Hyaline Casts (0-2) /lpf 08/05/23 08/05/23 08/05/23 Range/Units 04:05 05:02 05:51 WBC (3.8-10.6) k/uL Hgb (11.4-16.0) gm/dL Hct (34.0-46.0) % MCV (80.0-100.0) fL MCH (25.0-35.0) pg RDW (11.5-15.5) % Neutrophils # (1.3-7.7) k/uL D-Dimer (<0.60) mg/L FEU ABG pH (7.35-7.45) ABG pCO2 (35-45) mmHg ABG pO2 (83-108) mmHg ABG HCO3 (21-25) mmol/L ABG Total CO2 (19-24) mmol/L ABG O2 Saturation (94-97) % Carbon Dioxide (22-30) mmol/L BUN (7-17) mg/dL Glucose (74-99) mg/dL POC Glucose (mg/dL) 274 H 250 H (70-110) mg/dL Plasma Lactic Acid Angel (0.7-2.0) mmol/L Calcium (8.4-10.2) mg/dL Phosphorus (2.5-4.5) mg/dL Urine Appearance Cloudy H (Clear) Urine Glucose (UA) Trace H (Negative) Uric Acid Crystals Rare H (None) /hpf Urine Bacteria Rare H (None) /hpf Hyaline Casts 6 H (0-2) /lpf 08/05/23 08/05/23 08/05/23 Range/Units 06:20 06:58 08:05 WBC (3.8-10.6) k/uL Hgb (11.4-16.0) gm/dL Hct (34.0-46.0) % MCV (80.0-100.0) fL MCH (25.0-35.0) pg RDW (11.5-15.5) % Neutrophils # (1.3-7.7) k/uL D-Dimer (<0.60) mg/L FEU ABG pH (7.35-7.45) ABG pCO2 33 L (35-45) mmHg ABG pO2 186 H (83-108) mmHg ABG HCO3 (21-25) mmol/L ABG Total CO2 (19-24) mmol/L ABG O2 Saturation 99.7 H (94-97) % Carbon Dioxide (22-30) mmol/L BUN (7-17) mg/dL Glucose (74-99) mg/dL POC Glucose (mg/dL) 227 H 248 H (70-110) mg/dL Plasma Lactic Acid Angel (0.7-2.0) mmol/L Calcium (8.4-10.2) mg/dL Phosphorus (2.5-4.5) mg/dL Urine Appearance (Clear) Urine Glucose (UA) (Negative) Uric Acid Crystals (None) /hpf Urine Bacteria (None) /hpf Hyaline Casts (0-2) /lpf 08/05/23 Range/Units 09:11 WBC (3.8-10.6) k/uL Hgb (11.4-16.0) gm/dL Hct (34.0-46.0) % MCV (80.0-100.0) fL MCH (25.0-35.0) pg RDW (11.5-15.5) % Neutrophils # (1.3-7.7) k/uL D-Dimer (<0.60) mg/L FEU ABG pH (7.35-7.45) ABG pCO2 (35-45) mmHg ABG pO2 (83-108) mmHg ABG HCO3 (21-25) mmol/L ABG Total CO2 (19-24) mmol/L ABG O2 Saturation (94-97) % Carbon Dioxide (22-30) mmol/L BUN (7-17) mg/dL Glucose (74-99) mg/dL POC Glucose (mg/dL) 256 H (70-110) mg/dL Plasma Lactic Acid Angel (0.7-2.0) mmol/L Calcium (8.4-10.2) mg/dL Phosphorus (2.5-4.5) mg/dL Urine Appearance (Clear) Urine Glucose (UA) (Negative) Uric Acid Crystals (None) /hpf Urine Bacteria (None) /hpf Hyaline Casts (0-2) /lpf Assessment and Plan Assessment: 1. Acute hypoxic respiratory failure, currently intubated sedated maintained on mechanical ventilation 2. Hyperglycemia possible HHS or DKA. Patient started on insulin drip 3. Sepsis with elevated lactic acid and WBC. 4. Pneumonia. Patient started on IV Zosyn 5. Electrolyte imbalance 6. Tachycardia. Cardiology service is consulted 7. Acute exacerbation of COPD 8. Underlying history of coronary artery disease with previous history of angioplasty and stent and coronary artery bypass graft surgery 9. History of non-compliance with medication 10. History of essential hypertension 11. History of hyperlipidemia 12. History of insulin-dependent diabetes mellitus 13. History of tobacco and drug use DVT prophylaxis Lovenox. GI prophylaxis Protonix Critical care services, infectious disease and cardiology services are consulted Patient started on insulin drip Patient started on IV antibiotics Patient started on IV steroids Blood culture ordered Patient to be admitted to the intensive care unit home medications currently on hold due to patient unable to swallow at this time
[2023-08-07 09:32] LABS: Glucose,Whole Blood 272 mg/dL (70-110)
[2023-08-07] MEDS: ENOXAPARIN 40 MG/0.4 ML SYRINGE SQ SCH (10:01)
[2023-08-07] MEDS: CHLORHEXIDINE GLUCONATE 15 ML CUP MUCOUS MEM SCH (10:01)
[2023-08-07] MEDS: ATORVASTATIN 40 MG TAB PO SCH (10:02)
[2023-08-07] MEDS: CLOPIDOGREL 75 MG TAB PO SCH (10:02)
[2023-08-07] MEDS: ASPIRIN 81 MG PO SCH (10:02)
[2023-08-07 11:51] LABS: Glucose,Whole Blood 287 mg/dL (70-110)
[2023-08-07] MEDS: SODIUM CHLORIDE 0.9% 1,000 ML IV SCH ×2 (12:04→20:20)
[2023-08-07] MEDS: DEXMEDETOMIDINE/0.9% NACL(PMX) 400 MCG in EMPTY BAG 1 BAG IV SCH (12:05)
[2023-08-07 12:29] LABS: ABG Base Excess -0.3 mmol/L; ABG HCO3 24 mmol/L (21-25); ABG PCO2 38 mmHg (35-45); ABG PH 7.42 (7.35-7.45); ABG PO2 102 mmHg (83-108); ABG TCO2 25 mmol/L (19-24); Allen Test Performed? Yes
[2023-08-07] MEDS ORDERED: METOPROLOL TARTRATE 5 MG/5 ML VIAL IVP PRN (13:06)
--- NOTE | 2023-08-07 13:28 | P.PN ---
Subjective Progress Note Date: 08/07/23 Principal diagnosis: Respiratory failure. This is a 72-year-old female with history of multiple medical problems including severe COPD/asthma patient was recently in the hospital and she was seen by Dr. Murry on consultation. Patient was brought into the ER and early this mo rning with multiple complaints, however the patient herself is a very poor historian, and could not get information from the patient. But according to the chart the patient arrived to the ER, she was extremely agitated, she was also complaining of some vague chest discomfort, cough, nausea and vomiting, she was also sweating profusely upon arrival. Patient was noted to have extremely elevated blood sugar however she had negative ketones. When I saw the patient she was not answering any questions and was not cooperative, patient was on BiPAP. Chest x-ray showed cardiomegaly, mild pulmonary vascular congestion, questionable right upper lobe infiltrate her labs showed evidence of leukocytos is with WBC count of 23.0 hemoglobin 10.8. Sodium was noted to be low at 123 however this is a pseudohyponatremia because her blood sugar was a 51. Bicarb was noted to be 15 and she had anion gap of 22. Urine was negative for ketones. Troponin was slightly elevated. At any rate I evaluated the patient in the ER, recommended icy admission once a bed becomes available in the meantime we will place the patient on the DKA protocol although the patient has what seems to be a hyperosmolar nonketotic state. With hyperglycemia. And acute anion gap metabolic acidosis. Again her ketones were negative in the urine. Patient was also placed on antibiotics, and bronchodilators follow-up ABG was ordered Patient was reevaluated today on 08/05/2023. Patient was transferred to the ICU from the ER early evening yesterday, and upon arrival to the ICU patient was hypoxic, agitated and restless, and her ABG was quite abnormal. I was notified about this patient, and I recommended immediate intubation. Patient was placed on mechanical ventilation, and overnight she was placed on norepinephrine. Remains on norepinephrine at 0.1 mcg/kg/m mostly for low blood pressure. Patient is now on assist control rate of 20, volume 500 FiO2 50% and PEEP of 5 ABG showed a pO2 of 186 pCO2 33 pH of 7.44. She was on Precedex which I have discontinued. And I will keep the patient on propofol for now. Considering the patient is on norepinephrine I went ahead and placed a right subclavian triple- lumen catheter. Patient's sugar is much better controlled today, she was still on insulin drip which I have recommended tapering down and changing her main IV fluid to 0.9 normal saline at 100 mL per hour. Empirically the patient is on Zosyn, chest x-ray showed dramatic improvement in her right upper lobe abnormality however she does have bibasilar atelectasis. Questionable aspiration is possible but felt to be less likely. Cultures are pending. Venous Doppler of the lower extremities was negative. D-dimer was slightly elevated at 2.23 and drug screen was negative except for cannabinoids. Uri nalysis is unremarkable. Lactic acid on admission was 3.6 but now it's 2.0 WBC count is 23.8 hemoglobin is 10.4, blood sugar is 236 this morning, anion gap is only 6. Patient was reevaluated today on 08/06/2023, remains in the ICU, intubated and mechanically ventilated. Patient is on assist control rate of 2010 volume 500 FiO2 40% PEEP of 5 ABG showed a pO2 of 105 pCO2 37 pH of 7.44 hence the patient was kept on 40% FiO2. Patient remains on propofol at 50 mcg/kg/m receiving a small amount of insulin 0.32 units per hour and on IV fluid 0.9 normal saline at 100 mL per hour. Patient is tachycardic, hence I added Lopressor as she takes normally beta blockers at home and this will be at 50 mg twice a day. Patient remains on Zosyn empirically, and she is receiving Dilaudid when necessary. Sputum cultures are basically nondiagnostic. So far WBC count is down to 17 hemoglobin is 9.9 platelets are 244, basic metabolic profile is normal renal profile is normal. Patient is arousable but she seems to be quite frail and weak. And on physical examination she had scattered rhonchi bilaterally and did not proceed with weaning trials today. Progress note dated 08/07/2023. This is a 72-year-old female who was admitted on August 04, with hyperglycemic hyperosmolar syndrome. She also was thought to have sepsis. She was intubated on the same day, August 04. Currently, she is on volume assist control, rate 20, tidal volume 500, FiO2 35%, and PEEP of 5. Blood gases were not done. The patient's getting saline at 100 mL an hour, norepinephrine at 1.5 mcg/m, propofol at 60 mcg/kg/m, insulin at 3.32 units an hour, and vital high protein at 10 mL an hour. The patient has not had any weaning trials as yet. Today, we will do a daily interruption of sedation, and a spontaneous breathing trial, but also we'll push her endotracheal tube about 3-4 cm. White count 8.5, hemoglobin 8.2, hematocrit 27.4, with a platelet count of 194,000. Sodium 138, potassium 3.7, chlorides 111, CO2 23, BUN 17, creatinine 0.56. Chest x-ray suggested the possibility of CHF, and a possible right lower lobe infiltrate. Objective - Vital Signs Vital signs: Vital Signs Temp 98.6 F 08/07/23 08:00 Pulse 84 08/07/23 11:51 Resp 16 08/07/23 11:00 BP 108/50 08/07/23 11:00 Pulse Ox 99 08/07/23 11:00 FiO2 35 08/07/23 11:36 Intake & Output 08/06/23 08/07/23 08/07/23 18:59 06:59 18:59 Intake Total 6702.922 6538.873 1042.645 Output Total 810 1180 385 Balance 1155.781 577.873 657.645 Weight 87.7 kg Intake: IV 1460 1300 700 .9 KVO 60 Piperacillin-Tazobactam 3 200 100 100 .375 gm In Sodium Chloride 0.9% 100 ml @ 25 mls/hr IVPB Q8HR [facility] Rx# :[id number] Sodium Chloride 0.9% 1, 1200 1200 600 000 ml @ 100 mls/hr IV . Q10H [facility] Rx#:[id number] Intake, IV Titration 335.781 337.873 212.645 Amount Insulin Regular 100 unit 12.704 15.425 In Sodium Chloride 0.9% 100 ml @ 0.1 UNITS/KG/HR 8.475 mls/hr IV .[id number] [facility] Rx#:[id number] Norepinephrine 4 mg In 0.426 43.852 Sodium Chloride 0.9% 250 ml @ 0.03 MCG/KG/MIN 9. 591 mls/hr IV .Q24H [facility] Rx#:[id number] propofoL 1,000 mg In 323.077 322.022 168.793 Empty Bag 1 bag @ 15 MCG/ KG/MIN 7.552 mls/hr IV . [id number] [facility] Rx#:[id number] Tube Feeding 80 90 60 Other 90 30 70 Output: Urine 810 1180 385 Other: Voiding Method Indwelling Catheter Indwelling Catheter Indwelling Catheter ABP, PAP, CO, CI - Last Documented Arterial Blood Pressure 108/82 - Exam No acute distress, sedated, with an orally placed endotracheal tube and NG tube. HEENT examination is grossly unremarkable. Neck supple. Full range of motion. No adenopathy thyromegaly or neck vein distention. Cardiovascular examination reveals regular rhythm rate. S1-S2 normal. No S3 or S4. No discernible murmur noted. Heart rate 84 bpm. Heart sounds are distant. Lungs reveal scattered bilateral rhonchi and crackles. No wheezes. Breath sounds are equal bilaterally. Saturations are 99%. Abdomen soft bowel sounds are heard. No masses or tenderness. Extremities are intact. No cyanosis clubbing or edema. Skin is without rash or lesion. Neurologic examination cannot be evaluated at that time. - Labs CBC & Chem 7: 08/07/23 04:28 08/07/23 04:28 Labs: Abnormal Lab Results - Last 24 Hours (Table) 08/06/23 08/06/23 08/06/23 Range/Units 14:14 16:10 18:15 RBC (3.80-5.40) m/uL Hgb (11.4-16.0) gm/dL Hct (34.0-46.0) % MCV (80.0-100.0) fL MCH (25.0-35.0) pg MCHC (31.0-37.0) g/dL RDW (11.5-15.5) % Chloride (98-107) mmol/L Glucose (74-99) mg/dL POC Glucose (mg/dL) 269 H 268 H 302 H (70-110) mg/dL Calcium (8.4-10.2) mg/dL 08/06/23 08/06/23 08/07/23 Range/Units 20:02 22:10 00:00 RBC (3.80-5.40) m/uL Hgb (11.4-16.0) gm/dL Hct (34.0-46.0) % MCV (80.0-100.0) fL MCH (25.0-35.0) pg MCHC (31.0-37.0) g/dL RDW (11.5-15.5) % Chloride (98-107) mmol/L Glucose (74-99) mg/dL POC Glucose (mg/dL) 299 H 329 H 306 H (70-110) mg/dL Calcium (8.4-10.2) mg/dL 08/07/23 08/07/23 08/07/23 Range/Units 02:22 04:21 04:28 RBC (3.80-5.40) m/uL Hgb (11.4-16.0) gm/dL Hct (34.0-46.0) % MCV (80.0-100.0) fL MCH (25.0-35.0) pg MCHC (31.0-37.0) g/dL RDW (11.5-15.5) % Chloride 111 H (98-107) mmol/L Glucose 232 H (74-99) mg/dL POC Glucose (mg/dL) 291 H 248 H (70-110) mg/dL Calcium 7.7 L (8.4-10.2) mg/dL 08/07/23 08/07/23 08/07/23 Range/Units 04:28 05:28 06:35 RBC 3.64 L (3.80-5.40) m/uL Hgb 8.2 L D (11.4-16.0) gm/dL Hct 27.4 L (34.0-46.0) % MCV 75.2 L (80.0-100.0) fL MCH 22.6 L (25.0-35.0) pg MCHC 30.0 L (31.0-37.0) g/dL RDW 17.9 H (11.5-15.5) % Chloride (98-107) mmol/L Glucose (74-99) mg/dL POC Glucose (mg/dL) 240 H 233 H (70-110) mg/dL Calcium (8.4-10.2) mg/dL 08/07/23 08/07/2323 Range/Units 07:10 07:51 09:30 RBC (3.80-5.40) m/uL Hgb (11.4-16.0) gm/dL Hct (34.0-46.0) % MCV (80.0-100.0) fL MCH (25.0-35.0) pg MCHC (31.0-37.0) g/dL RDW (11.5-15.5) % Chloride (98-107) mmol/L Glucose (74-99) mg/dL POC Glucose (mg/dL) 238 H 249 H 272 H (70-110) mg/dL Calcium (8.4-10.2) mg/dL 08/07/23 Range/Units 11:50 RBC (3.80-5.40) m/uL Hgb (11.4-16.0) gm/dL Hct (34.0-46.0) % MCV (80.0-100.0) fL MCH (25.0-35.0) pg MCHC (31.0-37.0) g/dL RDW (11.5-15.5) % Chloride (98-107) mmol/L Glucose (74-99) mg/dL POC Glucose (mg/dL) 287 H (70-110) mg/dL Calcium (8.4-10.2) mg/dL Microbiology - Last 24 Hours (Table) 08/05/23 04:15 Blood Culture - Preliminary Blood 08/05/23 04:00 Blood Culture - Preliminary Blood 08/05/23 03:50 Gram Stain - Final Sputum Sputum Culture - Final Sania albicans Assessment and Plan Assessment: Acute hypoxemic respiratory failure, requiring intubation and mechanical ventilation, on 08/04/2023, with possible sepsis, and hyperosmolar, hyperglycemic syndrome. Possible aspiration pneumonia. Acute metabolic encephalopathy. Acute exacerbation of COPD. Pseudohyponatremia. Acute on chronic congestive heart failure, systolic. CAD with previous CABG, and stenting, November 2022. Dyslipidemia. Benign essential hypertension. History of thyroid nodule. Fibromyalgia. Current marijuana use. Previous tobacco use. Plan: Plan dated 08/07/2023. The patient's oxygenation is very good. She seems stable on the ventilator. Today, she will have a daily interruption of sedation, and a spontaneous breathing trial, with a pressure support of 5, and CPAP of 5. After 20 or 30 minutes, the patient will have a full set a weaning parameters, including a rapid shallow breathing index, and a cuff leak test. His numbers look good, she will be extubated. Labs, x-rays, and medications are all reviewed. Additional recommendations and suggestions are forthcoming. Prognosis is guarded. Time with Patient: Greater than 30
[2023-08-07 15:13] LABS: Glucose,Whole Blood 246 mg/dL (70-110)
--- NOTE | 2023-08-07 16:24 | P.PN ---
Subjective Progress Note Date: 08/07/23 This is a 72-year-old female patient who presented to the ER with multiple complaints. Patient is currently sedated on BiPAP all information is obtained from medical record no family at bedside Upon arrival to the ER it appears that patient came very agitated and family returned her back to the ER according to ER reports complaints upon arrival include chest discomfort coughing nausea hyperglycemia anxiety and diaphoresis. Per records patient symptoms have been occurring over the past 2 days with elevated blood sugars. Patient has a past medical history of asthma, coronary artery disease with coronary artery bypass graft surgery, heart failure, COPD, diabetes mellitus, fibromyalgia, hyperlipi demia, hypertension, diabetes mellitus, sleep apnea and ex-smoker. Chest x-ray performed showing cardiomegaly with mild central vascular congestion and new right upper to midlung acute infiltrate and/or edema. Head CT completed showing no acute intracranial hemorrhage or midline shift there is mild diffuse age- related cerebral atrophy and chronic small vessel ischemic changes significant change from prior. Thoracic aorta CT performed showing borderline aneurysmal dilation of the ascending thoracic aorta the remainder daily order is of normal caliber no dissection of intra-mural hematoma seen. Blood sugar upon arrival 831, sodium 123, potassium 5.5, lactic acid 6.8, WBC 23.0. Patient also noted to have significant tachycardia initially elevated at 151. Patient was given multiple medications in ER due to agitation. Patient was placed on BiPAP. Patient was started on IV Zosyn, IV Solu-Medrol and insulin drip. Patient will be admitted to the intensive care unit patient also started on Precedex per critical care services. Will consult infectious disease due to sepsis. Drug screen ordered repeat labs ordered. Will also consult cardiology services due to initial complaints of chest pain and elevated heart rate. On 08/05/2023 patient was seen and examined in the ICU she is currently intubated sedated maintained on mechanical ventilation. Vital exam reveals a temperature of 99.9 pulse 72 respiration 22 blood pressure 118/53 pulse ox 100% on FiO2 of 50% Arterial blood gas reveals a pH of 7.44 pCO2 33 by mouth to 186 white blood count 23.8 hemoglobin 10.4 platelet count 371 sodium 136 potassium 4.2 chloride 108 CO2 22 BUN 20 creatinine 0.67 On 08/06/2023 patient currently intubated and sedated in the intensive care unit. Per nursing staff patient has been weaned off Levophed. Remains on insulin per [facility] protocol. Patient remains on IV Zosyn IV Solu-Medrol. Patient remains on FiO2 of 40%. Critical care infectious disease and cardiology services consulted On 08/07/2023 patient was seen and examined in the ICU, she is alert and oriented 3 in no apparent distress, she was extubated earlier and currently is maintained on oxygen 6 L via nasal cannula, there is no fever or chills no headache or dizziness no chest pain no shortness of breath no cough no nausea or vomiting no abdominal pain no diarrhea and no urinary symptoms. At this time will discontinue insulin drip, will start Levemir 20 units daily, and insulin sliding scale. We'll continue to follow closely. Objective - Vital Signs Vital signs: Vital Signs Temp 98.6 F 08/07/23 08:00 Pulse 70 08/07/23 09:03 Resp 20 08/07/23 08:00 BP 98/49 08/07/23 08:00 Pulse Ox 99 08/07/23 08:00 FiO2 35 08/07/23 08:41 Intake & Output 08/06/23 08/07/23 08/07/23 18:59 06:59 18:59 Intake Total 8448.075 3268.873 440.627 Output Total 810 1180 95 Balance 1155.781 577.873 345.627 Intake: IV 1460 1300 300 .9 KVO 60 Piperacillin-Tazobactam 3 200 100 100 .375 gm In Sodium Chloride 0.9% 100 ml @ 25 mls/hr IVPB Q8HR [facility] Rx# :[id number] Sodium Chloride 0.9% 1, 1200 1200 200 000 ml @ 100 mls/hr IV . Q10H [facility] Rx#:[id number] Intake, IV Titration 335.781 337.873 90.627 Amount Insulin Regular 100 unit 12.704 15.425 In Sodium Chloride 0.9% 100 ml @ 0.1 UNITS/KG/HR 8.475 mls/hr IV .[id number] [facility] Rx#:[id number] Norepinephrine 4 mg In 0.426 Sodium Chloride 0.9% 250 ml @ 0.03 MCG/KG/MIN 9. 591 mls/hr IV .Q24H [facility] Rx#:[id number] propofoL 1,000 mg In 323.077 322.022 90.627 Empty Bag 1 bag @ 15 MCG/ KG/MIN 7.552 mls/hr IV . [id number] [facility] Rx#:[id number] Tube Feeding 80 90 20 Other 90 30 30 Output: Urine 810 1180 95 Other: Voiding Method Indwelling Catheter Indwelling Catheter ABP, PAP, CO, CI - Last Documented Arterial Blood Pressure 108/82 - Exam In general patient is alert and oriented 3 in no apparent distress HEENT head normocephalic and atraumatic Neck is supple no JVD no goiter no lymphadenopathy no carotid bruit Chest examination is clear to auscultation no crackles no wheezing Cardiac exam reveals regular heart sounds S1 and S2 no gallops no murmurs Abdomen is soft nontender no organomegaly with normal bowel sounds Extremity exam reveals no edema no cyanosis or clubbing Neurological examination reveals no gross focal deficits - Labs CBC & Chem 7: 08/07/23 04:28 08/07/23 04:28 Labs: Abnormal Lab Results - Last 24 Hours (Table) 08/06/23 08/06/23 08/06/23 Range/Units 09:21 11:36 12:24 RBC (3.80-5.40) m/uL Hgb (11.4-16.0) gm/dL Hct (34.0-46.0) % MCV (80.0-100.0) fL MCH (25.0-35.0) pg MCHC (31.0-37.0) g/dL RDW (11.5-15.5) % Chloride (98-107) mmol/L Glucose (74-99) mg/dL POC Glucose (mg/dL) 309 H 295 H 275 H (70-110) mg/dL Calcium (8.4-10.2) mg/dL 08/06/23 08/06/23 08/06/23 Range/Units 13:15 14:14 16:10 RBC (3.80-5.40) m/uL Hgb (11.4-16.0) gm/dL Hct (34.0-46.0) % MCV (80.0-100.0) fL MCH (25.0-35.0) pg MCHC (31.0-37.0) g/dL RDW (11.5-15.5) % Chloride (98-107) mmol/L Glucose (74-99) mg/dL POC Glucose (mg/dL) 253 H 269 H 268 H (70-110) mg/dL Calcium (8.4-10.2) mg/dL 08/06/23 08/06/23 08/06/23 Range/Units 18:15 20:02 22:10 RBC (3.80-5.40) m/uL Hgb (11.4-16.0) gm/dL Hct (34.0-46.0) % MCV (80.0-100.0) fL MCH (25.0-35.0) pg MCHC (31.0-37.0) g/dL RDW (11.5-15.5) % Chloride (98-107) mmol/L Glucose (74-99) mg/dL POC Glucose (mg/dL) 302 H 299 H 329 H (70-110) mg/dL Calcium (8.4-10.2) mg/dL 08/07/23 08/07/23 08/07/23 Range/Units 00:00 02:22 04:21 RBC (3.80-5.40) m/uL Hgb (11.4-16.0) gm/dL Hct (34.0-46.0) % MCV (80.0-100.0) fL MCH (25.0-35.0) pg MCHC (31.0-37.0) g/dL RDW (11.5-15.5) % Chloride (98-107) mmol/L Glucose (74-99) mg/dL POC Glucose (mg/dL) 306 H 291 H 248 H (70-110) mg/dL Calcium (8.4-10.2) mg/dL 08/07/23 08/07/23 08/07/23 Range/Units 04:28 04:28 05:28 RBC 3.64 L (3.80-5.40) m/uL Hgb 8.2 L D (11.4-16.0) gm/dL Hct 27.4 L (34.0-46.0) % MCV 75.2 L (80.0-100.0) fL MCH 22.6 L (25.0-35.0) pg MCHC 30.0 L (31.0-37.0) g/dL RDW 17.9 H (11.5-15.5) % Chloride 111 H (98-107) mmol/L Glucose 232 H (74-99) mg/dL POC Glucose (mg/dL) 240 H (70-110) mg/dL Calcium 7.7 L (8.4-10.2) mg/dL 08/07/23 08/07/23 08/07/23 Range/Units 06:35 07:10 07:51 RBC (3.80-5.40) m/uL Hgb (11.4-16.0) gm/dL Hct (34.0-46.0) % MCV (80.0-100.0) fL MCH (25.0-35.0) pg MCHC (31.0-37.0) g/dL RDW (11.5-15.5) % Chloride (98-107) mmol/L Glucose (74-99) mg/dL POC Glucose (mg/dL) 233 H 238 H 249 H (70-110) mg/dL Calcium (8.4-10.2) mg/dL Microbiology - Last 24 Hours (Table) 08/05/23 04:15 Blood Culture - Preliminary Blood 08/05/23 04:00 Blood Culture - Preliminary Blood 08/05/23 03:50 Gram Stain - Preliminary Sputum Assessment and Plan Assessment: 1. Acute hypoxic respiratory failure, currently intubated sedated maintained on mechanical ventilation 2. Hyperglycemia possible HHS or DKA. Patient started on insulin drip 3. Sepsis with elevated lactic acid and WBC. 4. Pneumonia. Patient started on IV Zosyn 5. Electrolyte imbalance 6. Tachycardia. Cardiology service is consulted 7. Acute exacerbation of COPD 8. Underlying history of coronary artery disease with previous history of angioplasty and stent and coronary artery bypass graft surgery 9. History of non-compliance with medication 10. History of essential hypertension 11. History of hyperlipidemia 12. History of insulin-dependent diabetes mellitus 13. History of tobacco and drug use DVT prophylaxis Lovenox. GI prophylaxis Protonix Critical care services, infectious disease and cardiology services are consulted Patient started on insulin drip Patient started on IV antibiotics Patient started on IV steroids Blood culture ordered Patient to be admitted to the intensive care unit home medications currently on hold due to patient unable to swallow at this time
[2023-08-07 19:05] LABS: Glucose,Whole Blood 299 mg/dL (70-110)
[2023-08-07 20:17] LABS: Glucose,Whole Blood 336 mg/dL (70-110)
[2023-08-07] MEDS: INSULIN DETEMIR (LEVEMIR) 100 UNIT/ML SYR SQ SCH (20:17)
[2023-08-07 21:17] LABS: Glucose,Whole Blood 319 mg/dL (70-110)
[2023-08-07 22:03] LABS: Glucose,Whole Blood 290 mg/dL (70-110)
[2023-08-07] MEDS: INSULIN ASPART (NovoLOG) 100 UNIT/ML VIAL SQ SCH (22:16)
[2023-08-07 22:59] LABS: Glucose,Whole Blood 284 mg/dL (70-110)
[2023-08-08 00:13] LABS: Glucose,Whole Blood 241 mg/dL (70-110)
[2023-08-08 01:01] LABS: Glucose,Whole Blood 206 mg/dL (70-110)
[2023-08-08 02:10] LABS: Glucose,Whole Blood 179 mg/dL (70-110)
[2023-08-08 03:07] LABS: Glucose,Whole Blood 165 mg/dL (70-110)
[2023-08-08 03:59] LABS: Glucose,Whole Blood 154 mg/dL (70-110)
[2023-08-08 04:42] LABS: Anisocytosis Slight; Basophils % (A) 0 %; Eosinophils % (A) 0 %; HCT 28.8 % (34.0-46.0); HGB 9.1 gm/dL (11.4-16.0); Hypochromasia Marked; Lymphocytes # (A) 1.6 k/uL (1.0-4.8); Lymphocytes % (A) 19 %; MCHC 31.7 g/dL (31.0-37.0); MCV 75.5 fL (80.0-100.0); Mean Platelet Volume 9.4; Microcytosis Moderate; Monocytes # (A) 0.4 k/uL (0-1.0); Monocytes % (A) 4 %; Neutrophils # (A) 6.5 k/uL (1.3-7.7); Neutrophils % (A) 76 %; Platelet Count 202 k/uL (150-450); RBC 3.81 m/uL (3.80-5.40); RDW 18.3 % (11.5-15.5); WBC 8.6 k/uL (3.8-10.6)
[2023-08-08 04:55] LABS: African American GFR (CKD) >90 (>60 ml/min/1.73 sqM); Anion Gap 4 mmol/L; Blood Urea Nitrogen 17 mg/dL (7-17); Calcium 7.7 mg/dL (8.4-10.2); Carbon Dioxide 25 mmol/L (22-30); Chloride 109 mmol/L (98-107); Glucose 132 mg/dL (74-99); Non-African American GFR(CKD) >90 (>60 ml/min/1.73 sqM); Potassium 3.8 mmol/L (3.5-5.1); Sodium 138 mmol/L (137-145)
[2023-08-08] MEDS ORDERED: Potassium Replacement Protocol 1 EACH MISC MISCELLANE PRN (05:01)
[2023-08-08] MEDS: methylPREDNISolone SOD SUCCI 40 MG/ML 1 ML VIAL IV SCH ×2 (05:04→16:49)
[2023-08-08] MEDS ORDERED: POTASSIUM CHLORIDE ER 20 MEQ TAB.ER PO SCH (06:00)
[2023-08-08 06:47] LABS: Glucose,Whole Blood 173 mg/dL (70-110)
[2023-08-08] MEDS: PANTOPRAZOLE 40 MG TABLET PO SCH (06:50)
[2023-08-08] MEDS: INSULIN ASPART (NovoLOG) 100 UNIT/ML VIAL SQ SCH ×4 (06:50→21:04)
[2023-08-08] MEDS: SODIUM CHLORIDE 0.9% 1,000 ML IV SCH (06:51)
[2023-08-08] MEDS ORDERED: INSULIN ASPART (NovoLOG) 100 UNIT/ML VIAL SQ SCH (07:30)
--- NOTE | 2023-08-08 07:39 | P.PN ---
Subjective Progress Note Date: 08/08/23 PROGRESS NOTE The patient is a 72-year-old female with known history of CAD status post CABG and PCI, history of diabetes, asthma who presented with respiratory distress requiring mechanical ventilation and possible sepsis. She remains intubated and sedated. She is on a low dose of norepinephrine. She continues to be in sinus mechanism. Her urinary output has been stable. There is no evidence of atrial fibrillation or ventricular tachycardia. She underwent stenting in November of this year by Dr. Grewal. She had an echocardiogram in June that showed an ejection fraction of 30-35% with [id number] mitral regurgitation and inferior wall hypokinesis. She had episodes of sinus tachycardia and she was started on a beta marcos. August 08: The patient is extubated, hemodynamically stable on no vasopressors. She is in sinus mechanism. She had episodes of tachycardia after intubation yesterday that resolved. She's feeling well. She denies any chest discomfort, dizziness or palpitations. She has no nausea or vomiting. Her urinary output has been good. Medications: Aspirin, Plavix 75 mg daily, Lovenox, metoprolol tartrate 25 mg twice a day, insulin PHYSICAL EXAMINATION: Blood pressure 114/60 heart rate 84, alert and oriented LUNGS: Clear to auscultation, with few crackles HEART: Regular rate and rhythm, S1, S2. No S3. Systolic ejection murmur ABDOMEN: Soft, positive bowel sounds, no organomegaly, nontender EXTREMETIES: No edema LAB: Hemoglobin 9.1, platelets count 202, creatinine 0.61, BUN 17 IMPRESSION: 1. Respiratory failure, multifactorial, possible aspiration pneumonia 2. History of CAD status post CABG and PCI 3. History of ischemic cardiomyopathy 4. History of COPD PLAN: 1. Continue present therapy 2. Add low-dose ALEJANDRA inhibitor 3. Start spironolactone 4. Depending on blood sugar and status add Farxiga when blood sugar under good control Objective - Vital Signs Vital signs: Vital Signs Temp 97.8 F 08/08/23 04:00 Pulse 84 08/08/23 07:00 Resp 18 08/08/23 07:00 BP 114/64 08/08/23 07:00 Pulse Ox 98 08/08/23 07:00 FiO2 35 08/07/23 12:00 Intake & Output 08/07/23 08/08/23 08/08/23 18:59 06:59 18:59 Intake Total 2740.645 1921.275 100 Output Total 695 850 55 Balance 2045.645 1071.275 45 Weight 87.7 kg 92.5 kg Intake: IV 1300 1200 100 Piperacillin-Tazobactam 3 100 .375 gm In Sodium Chloride 0.9% 100 ml @ 25 mls/hr IVPB Q8HR [facility] Rx# :[id number] Sodium Chloride 0.9% 1, 1200 1200 100 000 ml @ 100 mls/hr IV . Q10H [facility] Rx#:[id number] Intake, IV Titration 212.645 71.275 Amount Insulin Regular 100 unit 71.275 In Sodium Chloride 0.9% 100 ml @ 0.1 UNITS/KG/HR 8.475 mls/hr IV .[id number] [facility] Rx#:[id number] Norepinephrine 4 mg In 43.852 Sodium Chloride 0.9% 250 ml @ 0.03 MCG/KG/MIN 9. 591 mls/hr IV .Q24H [facility] Rx#:[id number] propofoL 1,000 mg In 168.793 Empty Bag 1 bag @ 15 MCG/ KG/MIN 7.552 mls/hr IV . [id number] [facility] Rx#:[id number] Oral 1098 650 Tube Feeding 60 Other 70 Output: Urine 695 850 55 Other: Voiding Method Indwelling Catheter Indwelling Catheter ABP, PAP, CO, CI - Last Documented Arterial Blood Pressure 108/82 - Labs CBC & Chem 7: 08/08/23 04:17 08/08/23 04:17 Labs: Abnormal Lab Results - Last 24 Hours (Table) 08/07/23 08/07/23 08/07/23 Range/Units 07:51 09:30 11:50 Hgb (11.4-16.0) gm/dL Hct (34.0-46.0) % MCV (80.0-100.0) fL MCH (25.0-35.0) pg RDW (11.5-15.5) % ABG Total CO2 (19-24) mmol/L ABG O2 Saturation (94-97) % Chloride (98-107) mmol/L Glucose (74-99) mg/dL POC Glucose (mg/dL) 249 H 272 H 287 H (70-110) mg/dL Calcium (8.4-10.2) mg/dL 08/07/23 08/07/23 08/07/23 Range/Units 12:23 15:12 19:03 Hgb (11.4-16.0) gm/dL Hct (34.0-46.0) % MCV (80.0-100.0) fL MCH (25.0-35.0) pg RDW (11.5-15.5) % ABG Total CO2 25 H (19-24) mmol/L ABG O2 Saturation 98.0 H (94-97) % Chloride (98-107) mmol/L Glucose (74-99) mg/dL POC Glucose (mg/dL) 246 H 299 H (70-110) mg/dL Calcium (8.4-10.2) mg/dL 08/07/23 08/07/23 08/07/23 Range/Units 20:15 21:15 22:01 Hgb (11.4-16.0) gm/dL Hct (34.0-46.0) % MCV (80.0-100.0) fL MCH (25.0-35.0) pg RDW (11.5-15.5) % ABG Total CO2 (19-24) mmol/L ABG O2 Saturation (94-97) % Chloride (98-107) mmol/L Glucose (74-99) mg/dL POC Glucose (mg/dL) 336 H 319 H 290 H (70-110) mg/dL Calcium (8.4-10.2) mg/dL 08/07/23 08/08/23 08/08/23 Range/Units 22:57 00:12 00:59 Hgb (11.4-16.0) gm/dL Hct (34.0-46.0) % MCV (80.0-100.0) fL MCH (25.0-35.0) pg RDW (11.5-15.5) % ABG Total CO2 (19-24) mmol/L ABG O2 Saturation (94-97) % Chloride (98-107) mmol/L Glucose (74-99) mg/dL POC Glucose (mg/dL) 284 H 241 H 206 H (70-110) mg/dL Calcium (8.4-10.2) mg/dL 08/08/23 08/08/23 08/08/23 Range/Units 02:07 03:05 03:56 Hgb (11.4-16.0) gm/dL Hct (34.0-46.0) % MCV (80.0-100.0) fL MCH (25.0-35.0) pg RDW (11.5-15.5) % ABG Total CO2 (19-24) mmol/L ABG O2 Saturation (94-97) % Chloride (98-107) mmol/L Glucose (74-99) mg/dL POC Glucose (mg/dL) 179 H 165 H 154 H (70-110) mg/dL Calcium (8.4-10.2) mg/dL 08/08/23 08/08/23 08/08/23 Range/Units 04:17 04:17 06:45 Hgb 9.1 L (11.4-16.0) gm/dL Hct 28.8 L (34.0-46.0) % MCV 75.5 L (80.0-100.0) fL MCH 24.0 L (25.0-35.0) pg RDW 18.3 H (11.5-15.5) % ABG Total CO2 (19-24) mmol/L ABG O2 Saturation (94-97) % Chloride 109 H (98-107) mmol/L Glucose 132 H (74-99) mg/dL POC Glucose (mg/dL) 173 H (70-110) mg/dL Calcium 7.7 L (8.4-10.2) mg/dL Microbiology - Last 24 Hours (Table) 08/05/23 04:15 Blood Culture - Preliminary Blood 08/05/23 04:00 Blood Culture - Preliminary Blood 08/05/23 03:50 Gram Stain - Final Sputum Sputum Culture - Final Sania albicans
[2023-08-08] MEDS: INSULIN REGULAR 100 UNIT in SODIUM CHLORIDE 0.9% 100 ML IV SCH (08:08)
--- NOTE | 2023-08-08 08:12 | XR ---
EXAMINATION TYPE: XR chest 1V portable DATE OF EXAM: 08/08/2023 5:22 AM COMPARISON: Chest radiographs from 08/07/2023 TECHNIQUE: XR chest 1V portable Portable AP radiograph of the chest. CLINICAL INDICATION:Female, 72 years old with history of follow up possible aspiration pneumonia; FINDINGS: Lungs/Pleura: Blunting of the left costophrenic angle. Patchy right basilar airspace opacity. No pneu mothorax. Pulmonary vascularity: Unremarkable. Heart/mediastinum: Cardiomediastinal silhouette is enlarged and stable. Atherosclerotic calcificatio ns are seen in the aorta. Left atrial appendage occlusion devices present. Post CABG changes. Musculoskeletal: No acute osseous pathology. Midline sternotomy wires are noted and stable. Other findings: None Lines/Tubes: Stable right subclavian approach central venous catheter with distal tip terminating at the low SVC. There is again a looped appearance of the proximal aspect of the catheter. Interval removal of endotr acheal and enteric tube. IMPRESSION: 1. Cardiomegaly with small left pleural effusion and patchy right basilar airspace opacity which may represent atelectasis versus infiltrate. 2. Interval removal of endotracheal and enteric tubes. Stable right subclavian approach central veno us catheter.
[2023-08-08] MEDS: FORMOTEROL FUMARATE 20 MCG/2 ML NEBU INHALATION SCH ×2 (08:47→21:00)
[2023-08-08] MEDS: BUDESONIDE 1 MG/2 ML NEBU INHALATION SCH ×2 (08:47→21:00)
[2023-08-08] MEDS: IPRATROPIUM-ALBUTEROL 3 ML NEB INHALATION SCH ×4 (08:47→21:00)
--- NOTE | 2023-08-08 08:47 | P.PN ---
Subjective Progress Note Date: 08/08/23 This is a 72-year-old female patient who presented to the ER with multiple complaints. Patient is currently sedated on BiPAP all information is obtained from medical record no family at bedside Upon arrival to the ER it appears that patient came very agitated and family returned her back to the ER according to ER reports complaints upon arrival include chest discomfort coughing nausea hyperglycemia anxiety and diaphoresis. Per records patient symptoms have been occurring over the past 2 days with elevated blood sugars. Patient has a past medical history of asthma, coronary artery disease with coronary artery bypass graft surgery, heart failure, COPD, diabetes mellitus, fibromyalgia, hyperlipi demia, hypertension, diabetes mellitus, sleep apnea and ex-smoker. Chest x-ray performed showing cardiomegaly with mild central vascular congestion and new right upper to midlung acute infiltrate and/or edema. Head CT completed showing no acute intracranial hemorrhage or midline shift there is mild diffuse age- related cerebral atrophy and chronic small vessel ischemic changes significant change from prior. Thoracic aorta CT performed showing borderline aneurysmal dilation of the ascending thoracic aorta the remainder daily order is of normal caliber no dissection of intra-mural hematoma seen. Blood sugar upon arrival 831, sodium 123, potassium 5.5, lactic acid 6.8, WBC 23.0. Patient also noted to have significant tachycardia initially elevated at 151. Patient was given multiple medications in ER due to agitation. Patient was placed on BiPAP. Patient was started on IV Zosyn, IV Solu-Medrol and insulin drip. Patient will be admitted to the intensive care unit patient also started on Precedex per critical care services. Will consult infectious disease due to sepsis. Drug screen ordered repeat labs ordered. Will also consult cardiology services due to initial complaints of chest pain and elevated heart rate. On 08/05/2023 patient was seen and examined in the ICU she is currently intubated sedated maintained on mechanical ventilation. Vital exam reveals a temperature of 99.9 pulse 72 respiration 22 blood pressure 118/53 pulse ox 100% on FiO2 of 50% Arterial blood gas reveals a pH of 7.44 pCO2 33 by mouth to 186 white blood count 23.8 hemoglobin 10.4 platelet count 371 sodium 136 potassium 4.2 chloride 108 CO2 22 BUN 20 creatinine 0.67 On 08/06/2023 patient currently intubated and sedated in the intensive care unit. Per nursing staff patient has been weaned off Levophed. Remains on insulin per [facility] protocol. Patient remains on IV Zosyn IV Solu-Medrol. Patient remains on FiO2 of 40%. Critical care infectious disease and cardiology services consulted On 08/07/2023 patient was seen and examined in the ICU, she is alert and oriented 3 in no apparent distress, she was extubated earlier and currently is maintained on oxygen 6 L via nasal cannula, there is no fever or chills no headache or dizziness no chest pain no shortness of breath no cough no nausea or vomiting no abdominal pain no diarrhea and no urinary symptoms. At this time will discontinue insulin drip, will start Levemir 20 units daily, and insulin sliding scale. We'll continue to follow closely. On 08/08/2023 patient remains extubated in the intensive care unit currently on 2 L nasal cannula. Current vitals temp 97.8, , heart rate 84, respiratory rate 18, blood pressure 114/64 with a pulse ox of 98% on 2 L. Patient remains on IV Solu-Medrol and Zosyn. Critical care, infectious disease and cardiology services are all following. Patient is alert and oriented 3. Denies chest pain or shortness of breath. Denies nausea vomiting or diarrhea. Denies any urinary burning or frequency Objective - Vital Signs Vital signs: Vital Signs Temp 97.8 F 08/08/23 04:00 Pulse 84 08/08/23 07:00 Resp 18 08/08/23 07:00 BP 114/64 08/08/23 07:00 Pulse Ox 98 08/08/23 07:00 FiO2 35 08/07/23 12:00 Intake & Output 08/07/23 08/08/23 08/08/23 18:59 06:59 18:59 Intake Total 2740.645 1921.275 100 Output Total 695 850 55 Balance 2045.645 1071.275 45 Weight 87.7 kg 92.5 kg Intake: IV 1300 1200 100 Piperacillin-Tazobactam 3 100 .375 gm In Sodium Chloride 0.9% 100 ml @ 25 mls/hr IVPB Q8HR [facility] Rx# :[id number] Sodium Chloride 0.9% 1, 1200 1200 100 000 ml @ 100 mls/hr IV . Q10H [facility] Rx#:[id number] Intake, IV Titration 212.645 71.275 Amount Insulin Regular 100 unit 71.275 In Sodium Chloride 0.9% 100 ml @ 0.1 UNITS/KG/HR 8.475 mls/hr IV .[id number] [facility] Rx#:[id number] Norepinephrine 4 mg In 43.852 Sodium Chloride 0.9% 250 ml @ 0.03 MCG/KG/MIN 9. 591 mls/hr IV .Q24H [facility] Rx#:[id number] propofoL 1,000 mg In 168.793 Empty Bag 1 bag @ 15 MCG/ KG/MIN 7.552 mls/hr IV . [id number] [facility] Rx#:[id number] Oral 1098 650 Tube Feeding 60 Other 70 Output: Urine 695 850 55 Other: Voiding Method Indwelling Catheter Indwelling Catheter ABP, PAP, CO, CI - Last Documented Arterial Blood Pressure 108/82 - Exam In general patient is alert and oriented 3 in no apparent distress HEENT head normocephalic and atraumatic Neck is supple no JVD no goiter no lymphadenopathy no carotid bruit Chest examination is clear to auscultation no crackles no wheezing Cardiac exam reveals regular heart sounds S1 and S2 no gallops no murmurs Abdomen is soft nontender no organomegaly with normal bowel sounds Extremity exam reveals no edema no cyanosis or clubbing Neurological examination reveals no gross focal deficits - Labs CBC & Chem 7: 08/08/23 04:17 08/08/23 04:17 Labs: Abnormal Lab Results - Last 24 Hours (Table) 08/07/23 08/07/23 08/07/23 Range/Units 09:30 11:50 12:23 Hgb (11.4-16.0) gm/dL Hct (34.0-46.0) % MCV (80.0-100.0) fL MCH (25.0-35.0) pg RDW (11.5-15.5) % ABG Total CO2 25 H (19-24) mmol/L ABG O2 Saturation 98.0 H (94-97) % Chloride (98-107) mmol/L Glucose (74-99) mg/dL POC Glucose (mg/dL) 272 H 287 H (70-110) mg/dL Calcium (8.4-10.2) mg/dL 08/07/23 08/07/23 08/07/23 Range/Units 15:12 19:03 20:15 Hgb (11.4-16.0) gm/dL Hct (34.0-46.0) % MCV (80.0-100.0) fL MCH (25.0-35.0) pg RDW (11.5-15.5) % ABG Total CO2 (19-24) mmol/L ABG O2 Saturation (94-97) % Chloride (98-107) mmol/L Glucose (74-99) mg/dL POC Glucose (mg/dL) 246 H 299 H 336 H (70-110) mg/dL Calcium (8.4-10.2) mg/dL 08/07/23 08/07/23 08/07/23 Range/Units 21:15 22:01 22:57 Hgb (11.4-16.0) gm/dL Hct (34.0-46.0) % MCV (80.0-100.0) fL MCH (25.0-35.0) pg RDW (11.5-15.5) % ABG Total CO2 (19-24) mmol/L ABG O2 Saturation (94-97) % Chloride (98-107) mmol/L Glucose (74-99) mg/dL POC Glucose (mg/dL) 319 H 290 H 284 H (70-110) mg/dL Calcium (8.4-10.2) mg/dL 08/08/23 08/08/23 08/08/23 Range/Units 00:12 00:59 02:07 Hgb (11.4-16.0) gm/dL Hct (34.0-46.0) % MCV (80.0-100.0) fL MCH (25.0-35.0) pg RDW (11.5-15.5) % ABG Total CO2 (19-24) mmol/L ABG O2 Saturation (94-97) % Chloride (98-107) mmol/L Glucose (74-99) mg/dL POC Glucose (mg/dL) 241 H 206 H 179 H (70-110) mg/dL Calcium (8.4-10.2) mg/dL 08/08/23 08/08/23 08/08/23 Range/Units 03:05 03:56 04:17 Hgb 9.1 L (11.4-16.0) gm/dL Hct 28.8 L (34.0-46.0) % MCV 75.5 L (80.0-100.0) fL MCH 24.0 L (25.0-35.0) pg RDW 18.3 H (11.5-15.5) % ABG Total CO2 (19-24) mmol/L ABG O2 Saturation (94-97) % Chloride (98-107) mmol/L Glucose (74-99) mg/dL POC Glucose (mg/dL) 165 H 154 H (70-110) mg/dL Calcium (8.4-10.2) mg/dL 08/08/23 08/08/23 Range/Units 04:17 06:45 Hgb (11.4-16.0) gm/dL Hct (34.0-46.0) % MCV (80.0-100.0) fL MCH (25.0-35.0) pg RDW (11.5-15.5) % ABG Total CO2 (19-24) mmol/L ABG O2 Saturation (94-97) % Chloride 109 H (98-107) mmol/L Glucose 132 H (74-99) mg/dL POC Glucose (mg/dL) 173 H (70-110) mg/dL Calcium 7.7 L (8.4-10.2) mg/dL Microbiology - Last 24 Hours (Table) 08/05/23 04:15 Blood Culture - Preliminary Blood 08/05/23 04:00 Blood Culture - Preliminary Blood 08/05/23 03:50 Gram Stain - Final Sputum Sputum Culture - Final Sania albicans Assessment and Plan Assessment: 1. Acute hypoxic respiratory failure, currently intubated sedated maintained on mechanical ventilation. Extubated 08/07/2023 2. Hyperglycemia possible HHS or DKA. Patient started on insulin drip 3. Sepsis with elevated lactic acid and WBC. 4. Pneumonia. Patient started on IV Zosyn 5. Electrolyte imbalance 6. Tachycardia. Cardiology service is consulted 7. Acute exacerbation of COPD 8. Underlying history of coronary artery disease with previous history of angio plasty and stent and coronary artery bypass graft surgery 9. History of non-compliance with medication 10. History of essential hypertension 11. History of hyperlipidemia 12. History of insulin-dependent diabetes mellitus 13. History of tobacco and drug use DVT prophylaxis Lovenox. GI prophylaxis Protonix Critical care services, infectious disease and cardiology services are consulted Patient started on IV antibiotics Patient started on IV steroids Blood culture ordered Patient to be admitted to the intensive care unit home medications currently on hold due to patient unable to swallow at this time
[2023-08-08] MEDS: PIPERACILLIN-TAZOBACTAM 3.375 GM in SODIUM CHLORIDE 0.9% 100 ML IVPB SCH ×2 (08:54→16:49)
[2023-08-08] MEDS: ENOXAPARIN 40 MG/0.4 ML SYRINGE SQ SCH (08:55)
[2023-08-08] MEDS: ASPIRIN 81 MG PO SCH (08:55)
[2023-08-08] MEDS: CLOPIDOGREL 75 MG TAB PO SCH (08:55)
[2023-08-08] MEDS: METOPROLOL TARTRATE 25 MG TAB PO SCH ×2 (08:55→21:04)
[2023-08-08] MEDS: ATORVASTATIN 40 MG TAB PO SCH (08:55)
[2023-08-08] MEDS: SPIRONOLACTONE 25 MG TAB PO SCH (08:55)
[2023-08-08] MEDS: DEXMEDETOMIDINE/0.9% NACL(PMX) 400 MCG in EMPTY BAG 1 BAG IV SCH (10:07)
--- NOTE | 2023-08-08 11:27 | P.PN ---
Subjective Progress Note Date: 08/08/23 Principal diagnosis: Respiratory failure. This is a 72-year-old female with history of multiple medical problems including severe COPD/asthma patient was recently in the hospital and she was seen by Dr. Murry on consultation. Patient was brought into the ER and early this mo rning with multiple complaints, however the patient herself is a very poor historian, and could not get information from the patient. But according to the chart the patient arrived to the ER, she was extremely agitated, she was also complaining of some vague chest discomfort, cough, nausea and vomiting, she was also sweating profusely upon arrival. Patient was noted to have extremely elevated blood sugar however she had negative ketones. When I saw the patient she was not answering any questions and was not cooperative, patient was on BiPAP. Chest x-ray showed cardiomegaly, mild pulmonary vascular congestion, questionable right upper lobe infiltrate her labs showed evidence of leukocytos is with WBC count of 23.0 hemoglobin 10.8. Sodium was noted to be low at 123 however this is a pseudohyponatremia because her blood sugar was a 51. Bicarb was noted to be 15 and she had anion gap of 22. Urine was negative for ketones. Troponin was slightly elevated. At any rate I evaluated the patient in the ER, recommended icy admission once a bed becomes available in the meantime we will place the patient on the DKA protocol although the patient has what seems to be a hyperosmolar nonketotic state. With hyperglycemia. And acute anion gap metabolic acidosis. Again her ketones were negative in the urine. Patient was also placed on antibiotics, and bronchodilators follow-up ABG was ordered Patient was reevaluated today on 08/05/2023. Patient was transferred to the ICU from the ER early evening yesterday, and upon arrival to the ICU patient was hypoxic, agitated and restless, and her ABG was quite abnormal. I was notified about this patient, and I recommended immediate intubation. Patient was placed on mechanical ventilation, and overnight she was placed on norepinephrine. Remains on norepinephrine at 0.1 mcg/kg/m mostly for low blood pressure. Patient is now on assist control rate of 20, volume 500 FiO2 50% and PEEP of 5 ABG showed a pO2 of 186 pCO2 33 pH of 7.44. She was on Precedex which I have discontinued. And I will keep the patient on propofol for now. Considering the patient is on norepinephrine I went ahead and placed a right subclavian triple- lumen catheter. Patient's sugar is much better controlled today, she was still on insulin drip which I have recommended tapering down and changing her main IV fluid to 0.9 normal saline at 100 mL per hour. Empirically the patient is on Zosyn, chest x-ray showed dramatic improvement in her right upper lobe abnormality however she does have bibasilar atelectasis. Questionable aspiration is possible but felt to be less likely. Cultures are pending. Venous Doppler of the lower extremities was negative. D-dimer was slightly elevated at 2.23 and drug screen was negative except for cannabinoids. Uri nalysis is unremarkable. Lactic acid on admission was 3.6 but now it's 2.0 WBC count is 23.8 hemoglobin is 10.4, blood sugar is 236 this morning, anion gap is only 6. Patient was reevaluated today on 08/06/2023, remains in the ICU, intubated and mechanically ventilated. Patient is on assist control rate of 2010 volume 500 FiO2 40% PEEP of 5 ABG showed a pO2 of 105 pCO2 37 pH of 7.44 hence the patient was kept on 40% FiO2. Patient remains on propofol at 50 mcg/kg/m receiving a small amount of insulin 0.32 units per hour and on IV fluid 0.9 normal saline at 100 mL per hour. Patient is tachycardic, hence I added Lopressor as she takes normally beta blockers at home and this will be at 50 mg twice a day. Patient remains on Zosyn empirically, and she is receiving Dilaudid when necessary. Sputum cultures are basically nondiagnostic. So far WBC count is down to 17 hemoglobin is 9.9 platelets are 244, basic metabolic profile is normal renal profile is normal. Patient is arousable but she seems to be quite frail and weak. And on physical examination she had scattered rhonchi bilaterally and did not proceed with weaning trials today. Progress note dated 08/07/2023. This is a 72-year-old female who was admitted on August 04, with hyperglycemic hyperosmolar syndrome. She also was thought to have sepsis. She was intubated on the same day, August 04. Currently, she is on volume assist control, rate 20, tidal volume 500, FiO2 35%, and PEEP of 5. Blood gases were not done. The patient's getting saline at 100 mL an hour, norepinephrine at 1.5 mcg/m, propofol at 60 mcg/kg/m, insulin at 3.32 units an hour, and vital high protein at 10 mL an hour. The patient has not had any weaning trials as yet. Today, we will do a daily interruption of sedation, and a spontaneous breathing trial, but also we'll push her endotracheal tube about 3-4 cm. White count 8.5, hemoglobin 8.2, hematocrit 27.4, with a platelet count of 194,000. Sodium 138, potassium 3.7, chlorides 111, CO2 23, BUN 17, creatinine 0.56. Chest x-ray suggested the possibility of CHF, and a possible right lower lobe infiltrate. Progress note dated 08/08/2023. 72-year-old female admitted on August 04, with hyperglycemic hyperosmolar coma. The patient was thought to have sepsis as well, and was intubated for respiratory failure on August 04. The patient was successfully extubated yesterday, August 07. She remains on nasal cannula 1 L. She is also getting saline at 100 mL an hour. The triple-lumen catheter can be discontinued, and the tip cultured. Laboratory data includes a white count 8.6, hemoglobin 9.1, hematocrit 28.8, and a platelet count of 202,000. Sodium 138, potassium 3.8, ch lorides 109, CO2 25, BUN 17, creatinine 0.61. Chest x-ray shows evidence of cardiomegaly, right basilar patchy opacities or atelectasis, and a small left- sided pleural effusion. Objective - Vital Signs Vital signs: Vital Signs Temp 97.9 F 08/08/23 08:00 Pulse 101 H 08/08/23 10:00 Resp 24 08/08/23 10:00 BP 124/59 08/08/23 10:00 Pulse Ox 95 08/08/23 10:00 FiO2 35 08/07/23 12:00 Intake & Output 08/07/23 08/08/23 08/08/23 18:59 06:59 18:59 Intake Total 2740.645 1921.275 450 Output Total 695 850 245 Balance 2045.645 1071.275 205 Weight 87.7 kg 92.5 kg Intake: IV 1300 1200 300 Piperacillin-Tazobactam 3 100 .375 gm In Sodium Chloride 0.9% 100 ml @ 25 mls/hr IVPB Q8HR [facility] Rx# :[id number] Sodium Chloride 0.9% 1, 1200 1200 300 000 ml @ 10 mls/hr IV . Q24H [facility] Rx#:[id number] Intake, IV Titration 212.645 71.275 Amount Insulin Regular 100 unit 71.275 In Sodium Chloride 0.9% 100 ml @ 0.1 UNITS/KG/HR 8.475 mls/hr IV .[id number] [facility] Rx#:[id number] Norepinephrine 4 mg In 43.852 Sodium Chloride 0.9% 250 ml @ 0.03 MCG/KG/MIN 9. 591 mls/hr IV .Q24H [facility] Rx#:[id number] propofoL 1,000 mg In 168.793 Empty Bag 1 bag @ 15 MCG/ KG/MIN 7.552 mls/hr IV . [id number] [facility] Rx#:[id number] Oral 1098 650 150 Tube Feeding 60 Other 70 Output: Urine 695 850 245 Other: Voiding Method Indwelling Catheter Indwelling Catheter Indwelling Catheter ABP, PAP, CO, CI - Last Documented Arterial Blood Pressure 108/82 - Exam No acute distress, awake and alert, currently on 1 L of oxygen. HEENT examination is grossly unremarkable. Neck supple. Full range of motion. No adenopathy thyromegaly or neck vein distention. Cardiovascular examination reveals regular rhythm rate. S1-S2 normal. No S3 or S4. No discernible murmur noted. Heart rate 97 bpm. Heart sounds are distant. Lungs reveal scattered bilateral rhonchi and crackles. No wheezes. Breath sounds are equal bilaterally. Saturations are 95 %. Abdomen soft bowel sounds are heard. No masses or tenderness. Extremities are intact. No cyanosis clubbing or edema. Skin is without rash or lesion. Neurologic examination is within normal range. - Labs CBC & Chem 7: 08/08/23 04:17 08/08/23 04:17 Labs: Abnormal Lab Results - Last 24 Hours (Table) 08/07/23 08/07/23 08/07/23 Range/Units 11:50 12:23 15:12 Hgb (11.4-16.0) gm/dL Hct (34.0-46.0) % MCV (80.0-100.0) fL MCH (25.0-35.0) pg RDW (11.5-15.5) % ABG Total CO2 25 H (19-24) mmol/L ABG O2 Saturation 98.0 H (94-97) % Chloride (98-107) mmol/L Glucose (74-99) mg/dL POC Glucose (mg/dL) 287 H 246 H (70-110) mg/dL Calcium (8.4-10.2) mg/dL 08/07/23 08/07/23 08/07/23 Range/Units 19:03 20:15 21:15 Hgb (11.4-16.0) gm/dL Hct (34.0-46.0) % MCV (80.0-100.0) fL MCH (25.0-35.0) pg RDW (11.5-15.5) % ABG Total CO2 (19-24) mmol/L ABG O2 Saturation (94-97) % Chloride (98-107) mmol/L Glucose (74-99) mg/dL POC Glucose (mg/dL) 299 H 336 H 319 H (70-110) mg/dL Calcium (8.4-10.2) mg/dL 08/07/23 08/07/23 08/08/23 Range/Units 22:01 22:57 00:12 Hgb (11.4-16.0) gm/dL Hct (34.0-46.0) % MCV (80.0-100.0) fL MCH (25.0-35.0) pg RDW (11.5-15.5) % ABG Total CO2 (19-24) mmol/L ABG O2 Saturation (94-97) % Chloride (98-107) mmol/L Glucose (74-99) mg/dL POC Glucose (mg/dL) 290 H 284 H 241 H (70-110) mg/dL Calcium (8.4-10.2) mg/dL 08/08/23 08/08/23 08/08/23 Range/Units 00:59 02:07 03:05 Hgb (11.4-16.0) gm/dL Hct (34.0-46.0) % MCV (80.0-100.0) fL MCH (25.0-35.0) pg RDW (11.5-15.5) % ABG Total CO2 (19-24) mmol/L ABG O2 Saturation (94-97) % Chloride (98-107) mmol/L Glucose (74-99) mg/dL POC Glucose (mg/dL) 206 H 179 H 165 H (70-110) mg/dL Calcium (8.4-10.2) mg/dL 08/08/23 08/08/23 08/08/23 Range/Units 03:56 04:17 04:17 Hgb 9.1 L (11.4-16.0) gm/dL Hct 28.8 L (34.0-46.0) % MCV 75.5 L (80.0-100.0) fL MCH 24.0 L (25.0-35.0) pg RDW 18.3 H (11.5-15.5) % ABG Total CO2 (19-24) mmol/L ABG O2 Saturation (94-97) % Chloride 109 H (98-107) mmol/L Glucose 132 H (74-99) mg/dL POC Glucose (mg/dL) 154 H (70-110) mg/dL Calcium 7.7 L (8.4-10.2) mg/dL 08/08/23 Range/Units 06:45 Hgb (11.4-16.0) gm/dL Hct (34.0-46.0) % MCV (80.0-100.0) fL MCH (25.0-35.0) pg RDW (11.5-15.5) % ABG Total CO2 (19-24) mmol/L ABG O2 Saturation (94-97) % Chloride (98-107) mmol/L Glucose (74-99) mg/dL POC Glucose (mg/dL) 173 H (70-110) mg/dL Calcium (8.4-10.2) mg/dL Microbiology - Last 24 Hours (Table) 08/05/23 04:15 Blood Culture - Preliminary Blood 08/05/23 04:00 Blood Culture - Preliminary Blood 08/05/23 03:50 Gram Stain - Final Sputum Sputum Culture - Final Sania albicans Assessment and Plan Assessment: Acute hypoxemic respiratory failure, requiring intubation and mechanical ventilation, on 08/04/2023, with possible sepsis, and hyperosmolar, hyperglycemic syndrome. S/P successful extubation on 08/07/2023. Possible aspiration pneumonia. Acute metabolic encephalopathy. Acute exacerbation of COPD. Pseudohyponatremia. Acute on chronic congestive heart failure, systolic. CAD with previous CABG, and stenting, November 2022. Dyslipidemia. Benign essential hypertension. History of thyroid nodule. Fibromyalgia. Current marijuana use. Previous tobacco use. Plan: Plan dated 08/07/2023. The patient's oxygenation is very good. She seems stable on the ventilator. Today, she will have a daily interruption of sedation, and a spontaneous breathing trial, with a pressure support of 5, and CPAP of 5. After 20 or 30 minutes, the patient will have a full set a weaning parameters, including a rapid shallow breathing index, and a cuff leak test. His numbers look good, she will be extubated. Labs, x-rays, and medications are all reviewed. Additional recommendations and suggestions are forthcoming. Prognosis is guarded. Plan dated 08/08/2023. After placing the patient on a spontaneous breathing trial yesterday, on pressure support of 5, and CPAP of 5, and obtaining excellent weaning parameters at 30 minutes, the decision was made to extubate the patient. This occurred on 08/07/2023. Currently, the patient appears to be doing reasonably well. She continues in the intensive care unit, in room 259. She's getting saline at 100 mL an hour. The central line discontinued, and we would like the tip of the central line culture. We will continue to follow the patient, and make recommendations along the way. Prognosis is guarded. Time with Patient: Greater than 30
[2023-08-08 11:58] LABS: Glucose,Whole Blood 277 mg/dL (70-110)
--- NOTE | 2023-08-08 13:09 | CA ---
Transthoracic Echo Report Name: Mark Moore Age: 72 Gender: F : 1950 Exam Date: 08/07/2023 13:23 Exam Location: [facility] Ht (in): 62 Wt (lb): 193 Ordering Physician: Johnathan More MD ([id number]) Attending/Referring Phys: Career Services Representative Mary Bautista RDCS Procedure CPT: Indications: cp and sob Cardiac Hx: Technical Quality: Fair Contrast 1: Total Dose (mL): Contrast 2: Total Dose (mL): MEASUREMENTS (Male / Female) Normal Values 2D ECHO LV Diastolic Diameter PLAX 5.6 cm 4.2 - 5.9 / 3.9 - 5.3 cm LV Systolic Diameter PLAX 4.5 cm IVS Diastolic Thickness 1.6 cm 0.6 - 1.0 / 0.6 - 0.9 cm LVPW Diastolic Thickness 1.4 cm 0.6 - 1.0 / 0.6 - 0.9 cm LV Relative Wall Thickness 0.5 LV Diastolic Volume MOD BP 161.1 cm??? 67 - 155 / 56 - 104 cm??? LV Systolic Volume MOD BP 103.2 cm??? 22 - 58 / 19 - 49 cm??? LV Ejection Fraction MOD BP 35.9 % >= 55 % LV Cardiac Index MOD BP 3130.6 cm???/min???m??? LV Diastolic Volume MOD 4C 110.7 cm??? LV Systolic Volume MOD 4C 94.3 cm??? LV Ejection Fraction MOD 4C 14.8 % LV Cardiac Index MOD 4C 885.6 cm???/min???m??? LV Diastolic Length 4C 6.3 cm LV Systolic Length 4C 6.0 cm LV Diastolic Volume MOD 2C 189.7 cm??? LV Systolic Volume MOD 2C 97.8 cm??? LV Ejection Fraction MOD 2C 48.5 % LV Cardiac Index MOD 2C 4969.6 cm???/min???m??? LV Diastolic Length 2C 7.8 cm LV Systolic Length 2C 7.1 cm FINDINGS Left Ventricle Moderately increased septal wall thickness. Moderately increased posterior wall thickness. Mildly increased left ventricular diastolic diameter. Severely increased left ventricular diastolic volume. Severely increased left ventricular systolic volume. Moderately decreased left ventricular ejection fraction. Left ventricular ejection fraction is estimated at 25-30 %. Global left ventricular hypokinesis. Right Ventricle Right Atrium Left Atrium Mitral Valve Aortic Valve Tricuspid Valve Pulmonic Valve Pericardium No pericardial effusion. Aorta CONCLUSIONS Dilated left ventricle with severe LV dysfunction Previewed by: Dr. Ravin Prieto MD (Electronically Signed) Final Date: 08 August 2023 13:08
--- NOTE | 2023-08-08 14:18 | P.PN ---
Subjective Progress Note Date: 08/07/23 Principal diagnosis: Sepsis/aspiration pneumonia Patient is a 72-year-old female with a past medical history negative for diabetes mellitus hypertension hyperlipidemia presenting the hospital for nausea vomiting anxiety chest discomfort patient did have a respiratory distress initially on BiPAP however the patient ended up getting intubated because of worsening respiratory status and is in the ICU. On today's evaluation that is 08/07/2023 the patient is afebrile this morning patient is currently off the pressor support, FiO2 is stable at 35% no significant purulent secretions through the ET vomiting or diarrhea has been reported by the nursing staff. Patient did have white count down to 8.5, creatinine 0.56, chest x-ray bibasilar opacities and effusion Objective - Vital Signs Vital signs: Vital Signs Temp 98.1 F 08/07/23 20:00 Pulse 92 08/07/23 22:06 Resp 22 08/07/23 21:30 BP 124/78 08/07/23 21:30 Pulse Ox 100 08/07/23 21:30 FiO2 35 08/07/23 12:00 Intake & Output 08/07/23 08/07/23 08/08/23 06:59 18:59 06:59 Intake Total 8165.787 3105.645 100 Output Total 1180 695 60 Balance 989.527 3149.645 40 Weight 87.7 kg Intake: IV 1300 1300 100 Piperacillin-Tazobactam 3 100 100 .375 gm In Sodium Chloride 0.9% 100 ml @ 25 mls/hr IVPB Q8HR [facility] Rx# :[id number] Sodium Chloride 0.9% 1, 1200 1200 100 000 ml @ 100 mls/hr IV . Q10H [facility] Rx#:[id number] Intake, IV Titration 337.873 212.645 Amount Insulin Regular 100 unit 15.425 In Sodium Chloride 0.9% 100 ml @ 0.1 UNITS/KG/HR 8.475 mls/hr IV .[id number] [facility] Rx#:[id number] Norepinephrine 4 mg In 0.426 43.852 Sodium Chloride 0.9% 250 ml @ 0.03 MCG/KG/MIN 9. 591 mls/hr IV .Q24H [facility] Rx#:[id number] propofoL 1,000 mg In 322.022 168.793 Empty Bag 1 bag @ 15 MCG/ KG/MIN 7.552 mls/hr IV . [id number] [facility] Rx#:[id number] Oral 1098 Tube Feeding 90 60 Other 30 70 Output: Urine 1180 695 60 Other: Voiding Method Indwelling Catheter Indwelling Catheter Indwelling Catheter ABP, PAP, CO, CI - Last Documented Arterial Blood Pressure 108/82 - Exam GENERAL DESCRIPTION: Elderly female intubated on the vent RESPIRATORY SYSTEM: Unlabored breathing , decreased breath sounds at bases HEART: S1 S2 regular rate and rhythm ,no loud murmurs ABDOMEN: Soft , no tenderness EXTREMITIES: No edema feet - Labs CBC & Chem 7: 08/08/23 04:17 08/08/23 04:17 Labs: Abnormal Lab Results - Last 24 Hours (Table) 08/07/23 08/07/23 08/07/23 Range/Units 00:00 02:22 04:21 RBC (3.80-5.40) m/uL Hgb (11.4-16.0) gm/dL Hct (34.0-46.0) % MCV (80.0-100.0) fL MCH (25.0-35.0) pg MCHC (31.0-37.0) g/dL RDW (11.5-15.5) % ABG Total CO2 (19-24) mmol/L ABG O2 Saturation (94-97) % Chloride (98-107) mmol/L Glucose (74-99) mg/dL POC Glucose (mg/dL) 306 H 291 H 248 H (70-110) mg/dL Calcium (8.4-10.2) mg/dL 08/07/23 08/07/23 08/07/23 Range/Units 04:28 04:28 05:28 RBC 3.64 L (3.80-5.40) m/uL Hgb 8.2 L D (11.4-16.0) gm/dL Hct 27.4 L (34.0-46.0) % MCV 75.2 L (80.0-100.0) fL MCH 22.6 L (25.0-35.0) pg MCHC 30.0 L (31.0-37.0) g/dL RDW 17.9 H (11.5-15.5) % ABG Total CO2 (19-24) mmol/L ABG O2 Saturation (94-97) % Chloride 111 H (98-107) mmol/L Glucose 232 H (74-99) mg/dL POC Glucose (mg/dL) 240 H (70-110) mg/dL Calcium 7.7 L (8.4-10.2) mg/dL 08/07/23 08/07/23 08/07/23 Range/Units 06:35 07:10 07:51 RBC (3.80-5.40) m/uL Hgb (11.4-16.0) gm/dL Hct (34.0-46.0) % MCV (80.0-100.0) fL MCH (25.0-35.0) pg MCHC (31.0-37.0) g/dL RDW (11.5-15.5) % ABG Total CO2 (19-24) mmol/L ABG O2 Saturation (94-97) % Chloride (98-107) mmol/L Glucose (74-99) mg/dL POC Glucose (mg/dL) 233 H 238 H 249 H (70-110) mg/dL Calcium (8.4-10.2) mg/dL 08/07/23 08/07/23 08/07/23 Range/Units 09:30 11:50 12:23 RBC (3.80-5.40) m/uL Hgb (11.4-16.0) gm/dL Hct (34.0-46.0) % MCV (80.0-100.0) fL MCH (25.0-35.0) pg MCHC (31.0-37.0) g/dL RDW (11.5-15.5) % ABG Total CO2 25 H (19-24) mmol/L ABG O2 Saturation 98.0 H (94-97) % Chloride (98-107) mmol/L Glucose (74-99) mg/dL POC Glucose (mg/dL) 272 H 287 H (70-110) mg/dL Calcium (8.4-10.2) mg/dL 08/07/23 08/07/23 08/07/23 Range/Units 15:12 19:03 20:15 RBC (3.80-5.40) m/uL Hgb (11.4-16.0) gm/dL Hct (34.0-46.0) % MCV (80.0-100.0) fL MCH (25.0-35.0) pg MCHC (31.0-37.0) g/dL RDW (11.5-15.5) % ABG Total CO2 (19-24) mmol/L ABG O2 Saturation (94-97) % Chloride (98-107) mmol/L Glucose (74-99) mg/dL POC Glucose (mg/dL) 246 H 299 H 336 H (70-110) mg/dL Calcium (8.4-10.2) mg/dL 08/07/23 08/07/23 Range/Units 21:15 22:01 RBC (3.80-5.40) m/uL Hgb (11.4-16.0) gm/dL Hct (34.0-46.0) % MCV (80.0-100.0) fL MCH (25.0-35.0) pg MCHC (31.0-37.0) g/dL RDW (11.5-15.5) % ABG Total CO2 (19-24) mmol/L ABG O2 Saturation (94-97) % Chloride (98-107) mmol/L Glucose (74-99) mg/dL POC Glucose (mg/dL) 319 H 290 H (70-110) mg/dL Calcium (8.4-10.2) mg/dL Microbiology - Last 24 Hours (Table) 08/05/23 04:15 Blood Culture - Preliminary Blood 08/05/23 04:00 Blood Culture - Preliminary Blood 08/05/23 03:50 Gram Stain - Final Sputum Sputum Culture - Final Sania albicans Assessment and Plan (1) Aspiration pneumonia Current Visit: Yes Status: Acute Code(s): J69.0 - PNEUMONITIS DUE TO INHALATION OF FOOD AND VOMIT SNOMED Code(s): 576270976 (2) Allergy to multiple antibiotics Current Visit: Yes Status: Acute Code(s): Z88.1 - ALLERGY STATUS TO OTHER ANTIBIOTIC AGENTS SNOMED Code(s): 149649837 (3) Sepsis Current Visit: Yes Status: Acute Code(s): A41.9 - SEPSIS, UNSPECIFIED ORGANISM SNOMED Code(s): 98352336 Plan: 1patient with a SIRS/sepsis in this patient with a leukocytosis and did have elevated lactic acid and tachycardia, patient presented hospital with agitation weakness some shortness of breath which is likely multifactorial patient did have some acute infiltrate on chest x-ray and concern for possible aspiration pneumonitis not entirely excluded currently no other obvious focus of infection, patient did have a negative UA abdomin soft on clinical examination no evidence of any joint swelling or redness 2sputum has been obtained and cultures will be followed. 3patient WBC is trending down the patient is off pressor support , patient to continue with the Zosyn 3.375 g every 8 hours while waiting for the culture to finalize Dictation was produced using [employer] dictation software. please excuse any grammatical, word or spelling errors. Time with Patient: Less than 30
--- NOTE | 2023-08-08 14:19 | P.PN ---
Subjective Progress Note Date: 08/08/23 Principal diagnosis: Sepsis/aspiration pneumonia Patient is a 72-year-old female with a past medical history negative for diabetes mellitus hypertension hyperlipidemia presenting the hospital for nausea vomiting anxiety chest discomfort patient did have a respiratory distress initially on BiPAP however the patient ended up getting intubated because of worsening respiratory status and is in the ICU. Patient has been extubated as of 08/07/2023 On today's evaluation that is 08/08/2023, the patient continues to be afebrile the patient is breathing comfortably on room air, the patient denies chest pain, shortness of breath did have occasional dry, patient denies abdominal pain, no nausea/vomiting and no diarrhea Patient did have white count down to 8.6, creatinine 0.56, chest x-ray bibasilar opacities and effusion, sputum with a Sania Objective - Vital Signs Vital signs: Vital Signs Temp 97.9 F 08/08/23 08:00 Pulse 90 08/08/23 11:54 Resp 24 08/08/23 10:00 BP 124/59 08/08/23 10:00 Pulse Ox 95 08/08/23 10:00 FiO2 35 08/07/23 12:00 Intake & Output 08/07/23 08/08/23 08/08/23 18:59 06:59 18:59 Intake Total 2740.645 1921.275 450 Output Total 695 850 245 Balance 2045.645 1071.275 205 Weight 87.7 kg 92.5 kg Intake: IV 1300 1200 300 Piperacillin-Tazobactam 3 100 .375 gm In Sodium Chloride 0.9% 100 ml @ 25 mls/hr IVPB Q8HR [facility] Rx# :[id number] Sodium Chloride 0.9% 1, 1200 1200 300 000 ml @ 10 mls/hr IV . Q24H [facility] Rx#:[id number] Intake, IV Titration 212.645 71.275 Amount Insulin Regular 100 unit 71.275 In Sodium Chloride 0.9% 100 ml @ 0.1 UNITS/KG/HR 8.475 mls/hr IV .[id number] [facility] Rx#:[id number] Norepinephrine 4 mg In 43.852 Sodium Chloride 0.9% 250 ml @ 0.03 MCG/KG/MIN 9. 591 mls/hr IV .Q24H [facility] Rx#:[id number] propofoL 1,000 mg In 168.793 Empty Bag 1 bag @ 15 MCG/ KG/MIN 7.552 mls/hr IV . [id number] [facility] Rx#:[id number] Oral 1098 650 150 Tube Feeding 60 Other 70 Output: Urine 695 850 245 Other: Voiding Method Indwelling Catheter Indwelling Catheter Indwelling Catheter ABP, PAP, CO, CI - Last Documented Arterial Blood Pressure 108/82 - Exam GENERAL DESCRIPTION: Elderly female lying in bed in no distress RESPIRATORY SYSTEM: Unlabored breathing , decreased breath sounds at bases HEART: S1 S2 regular rate and rhythm ABDOMEN: Soft , no tenderness EXTREMITIES: No edema feet - Labs CBC & Chem 7: 08/08/23 04:17 08/08/23 04:17 Labs: Abnormal Lab Results - Last 24 Hours (Table) 08/07/23 08/07/23 08/07/23 Range/Units 12:23 15:12 19:03 Hgb (11.4-16.0) gm/dL Hct (34.0-46.0) % MCV (80.0-100.0) fL MCH (25.0-35.0) pg RDW (11.5-15.5) % ABG Total CO2 25 H (19-24) mmol/L ABG O2 Saturation 98.0 H (94-97) % Chloride (98-107) mmol/L Glucose (74-99) mg/dL POC Glucose (mg/dL) 246 H 299 H (70-110) mg/dL Calcium (8.4-10.2) mg/dL 08/07/23 08/07/23 08/07/23 Range/Units 20:15 21:15 22:01 Hgb (11.4-16.0) gm/dL Hct (34.0-46.0) % MCV (80.0-100.0) fL MCH (25.0-35.0) pg RDW (11.5-15.5) % ABG Total CO2 (19-24) mmol/L ABG O2 Saturation (94-97) % Chloride (98-107) mmol/L Glucose (74-99) mg/dL POC Glucose (mg/dL) 336 H 319 H 290 H (70-110) mg/dL Calcium (8.4-10.2) mg/dL 08/07/23 08/08/23 08/08/23 Range/Units 22:57 00:12 00:59 Hgb (11.4-16.0) gm/dL Hct (34.0-46.0) % MCV (80.0-100.0) fL MCH (25.0-35.0) pg RDW (11.5-15.5) % ABG Total CO2 (19-24) mmol/L ABG O2 Saturation (94-97) % Chloride (98-107) mmol/L Glucose (74-99) mg/dL POC Glucose (mg/dL) 284 H 241 H 206 H (70-110) mg/dL Calcium (8.4-10.2) mg/dL 08/08/23 08/08/23 08/08/23 Range/Units 02:07 03:05 03:56 Hgb (11.4-16.0) gm/dL Hct (34.0-46.0) % MCV (80.0-100.0) fL MCH (25.0-35.0) pg RDW (11.5-15.5) % ABG Total CO2 (19-24) mmol/L ABG O2 Saturation (94-97) % Chloride (98-107) mmol/L Glucose (74-99) mg/dL POC Glucose (mg/dL) 179 H 165 H 154 H (70-110) mg/dL Calcium (8.4-10.2) mg/dL 08/08/23 08/08/23 08/08/23 Range/Units 04:17 04:17 06:45 Hgb 9.1 L (11.4-16.0) gm/dL Hct 28.8 L (34.0-46.0) % MCV 75.5 L (80.0-100.0) fL MCH 24.0 L (25.0-35.0) pg RDW 18.3 H (11.5-15.5) % ABG Total CO2 (19-24) mmol/L ABG O2 Saturation (94-97) % Chloride 109 H (98-107) mmol/L Glucose 132 H (74-99) mg/dL POC Glucose (mg/dL) 173 H (70-110) mg/dL Calcium 7.7 L (8.4-10.2) mg/dL 08/08/23 Range/Units 11:57 Hgb (11.4-16.0) gm/dL Hct (34.0-46.0) % MCV (80.0-100.0) fL MCH (25.0-35.0) pg RDW (11.5-15.5) % ABG Total CO2 (19-24) mmol/L ABG O2 Saturation (94-97) % Chloride (98-107) mmol/L Glucose (74-99) mg/dL POC Glucose (mg/dL) 277 H (70-110) mg/dL Calcium (8.4-10.2) mg/dL Microbiology - Last 24 Hours (Table) 08/05/23 04:15 Blood Culture - Preliminary Blood 08/05/23 04:00 Blood Culture - Preliminary Blood 08/05/23 03:50 Gram Stain - Final Sputum Sputum Culture - Final Sania albicans Assessment and Plan (1) Aspiration pneumonia Current Visit: Yes Status: Acute Code(s): J69.0 - PNEUMONITIS DUE TO INHALATION OF FOOD AND VOMIT SNOMED Code(s): 448183287 (2) Allergy to multiple antibiotics Current Visit: Yes Status: Acute Code(s): Z88.1 - ALLERGY STATUS TO OTHER ANTIBIOTIC AGENTS SNOMED Code(s): 978029437 (3) Sepsis Current Visit: Yes Status: Acute Code(s): A41.9 - SEPSIS, UNSPECIFIED ORGANISM SNOMED Code(s): 31454631 Plan: 1patient with a SIRS/sepsis in this patient with a leukocytosis and did have elevated lactic acid and tachycardia, patient presented hospital with agitation weakness some shortness of breath which is likely multifactorial patient did have some acute infiltrate on chest x-ray and concern for possible aspiration pneumonitis not entirely excluded currently no other obvious focus of infection, patient did have a negative UA abdomin soft on clinical examination no evidence of any joint swelling or redness 2sputum has been obtained and cultures growing Sania likely colonizer 3patient has shown clinical improvement and the patient has been extubated 4- patient to continue with the Zosyn 3.375 g every 8 hours and hopefully transition to a short course of oral antibiotics Dictation was produced using [employer] dictation software. please excuse any grammatical, word or spelling errors. Time with Patient: Less than 30
[2023-08-08] MEDS: LACTULOSE 20 GM/30 ML CUP PO SCH (16:49)
[2023-08-08 16:53] LABS: Glucose,Whole Blood 336 mg/dL (70-110)
[2023-08-08 20:49] LABS: Glucose,Whole Blood 353 mg/dL (70-110)
[2023-08-08] MEDS: INSULIN DETEMIR (LEVEMIR) 100 UNIT/ML SYR SQ SCH (21:04)
[2023-08-09] MEDS: PIPERACILLIN-TAZOBACTAM 3.375 GM in SODIUM CHLORIDE 0.9% 100 ML IVPB SCH ×3 (00:36→17:00)
[2023-08-09] MEDS ORDERED: ALPRAZolam 0.25 MG TAB PO STA (02:11)
[2023-08-09] MEDS: methylPREDNISolone SOD SUCCI 40 MG/ML 1 ML VIAL IV SCH ×2 (04:44→17:28)
[2023-08-09] MEDS: SODIUM CHLORIDE 0.9% 1,000 ML IV SCH (04:44)
[2023-08-09 06:37] LABS: Glucose,Whole Blood 181 mg/dL (70-110)
[2023-08-09] MEDS: PANTOPRAZOLE 40 MG TABLET PO SCH (06:50)
[2023-08-09] MEDS: INSULIN ASPART (NovoLOG) 100 UNIT/ML VIAL SQ SCH ×4 (06:50→20:54)
[2023-08-09 07:15] LABS: African American GFR (CKD) >90 (>60 ml/min/1.73 sqM); Anion Gap 6 mmol/L; Blood Urea Nitrogen 16 mg/dL (7-17); Carbon Dioxide 23 mmol/L (22-30); Chloride 106 mmol/L (98-107); Glucose 182 mg/dL (74-99); Non-African American GFR(CKD) >90 (>60 ml/min/1.73 sqM); Potassium 3.5 mmol/L (3.5-5.1); Sodium 135 mmol/L (137-145)
--- NOTE | 2023-08-09 07:38 | P.PN ---
Subjective Progress Note Date: 08/09/23 PROGRESS NOTE The patient is a 72-year-old female with known history of CAD status post CABG and PCI, history of diabetes, asthma who presented with respiratory distress requiring mechanical ventilation and possible sepsis. She remains intubated and sedated. She is on a low dose of norepinephrine. She continues to be in sinus mechanism. Her urinary output has been stable. There is no evidence of atrial fibrillation or ventricular tachycardia. She underwent stenting in November of this year by Dr. Grewal. She had an echocardiogram in June that showed an ejection fraction of 30-35% with [id number] mitral regurgitation and inferior wall hypokinesis. She had episodes of sinus tachycardia and she was started on a beta marcos. August 08: The patient is extubated, hemodynamically stable on no vasopressors. She is in sinus mechanism. She had episodes of tachycardia after intubation yesterday that resolved. She's feeling well. She denies any chest discomfort, dizziness or palpitations. She has no nausea or vomiting. Her urinary output has been good. August 09: The patient is feeling well this morning, anxious to go home. She denies any chest discomfort, dizziness or palpitations. She denies any nausea. She continues to be in sinus mechanism. Hemodynamically stable. Her echocardiogram showed a severely impaired systolic function. Medications: Aspirin, Plavix 75 mg daily, Lovenox, metoprolol tartrate 25 mg twice a day, insulin, lisinopril 2.5 mg twice a day, spironolactone 25 mg daily. PHYSICAL EXAMINATION: Blood pressure 100/70 heart rate 84, alert and oriented LUNGS: Clear to auscultation, with few crackles HEART: Regular rate and rhythm, S1, S2. No S3. Systolic ejection murmur ABDOMEN: Soft, positive bowel sounds, no organomegaly, nontender EXTREMETIES: No edema LAB: Potassium 3.5, BUN 16, creatinine 0.45 IMPRESSION: 1. Respiratory failure, multifactorial, possible aspiration pneumonia 2. History of CAD status post CABG and PCI 3. History of ischemic cardiomyopathy 4. History of COPD PLAN: 1. Continue present therapy 2. Increase physical activity 3. Follow blood pressure 4. Follow renal functions 5. Depending on her progress add Farxiga 10 mg daily Objective - Vital Signs Vital signs: Vital Signs Temp 98.0 F 08/09/23 02:00 Pulse 79 08/09/23 02:00 Resp 21 08/09/23 02:00 BP 88/70 08/09/23 02:00 Pulse Ox 99 08/09/23 02:00 FiO2 35 08/07/23 12:00 Intake & Output 08/08/23 08/09/23 08/09/23 18:59 06:59 18:59 Intake Total 450 690 Output Total 1045 1210 Balance -595 -520 Weight 90.6 kg Intake: IV 300 210 .9 KVO 100 Invasive Line 6 10 Piperacillin-Tazobactam 3 100 .375 gm In Sodium Chloride 0.9% 100 ml @ 25 mls/hr IVPB Q8HR [facility] Rx# :[id number] Sodium Chloride 0.9% 1, 300 000 ml @ 10 mls/hr IV . Q24H [facility] Rx#:[id number] Oral 150 480 Output: Urine 1045 1210 Other: Voiding Method Indwelling Catheter Indwelling Catheter ABP, PAP, CO, CI - Last Documented Arterial Blood Pressure 108/82 - Labs CBC & Chem 7: 08/08/23 04:17 08/09/23 05:09 Labs: Abnormal Lab Results - Last 24 Hours (Table) 08/08/23 08/08/23 08/08/23 Range/Units 11:57 16:51 20:48 Sodium (137-145) mmol/L Creatinine (0.52-1.04) mg/dL Glucose (74-99) mg/dL POC Glucose (mg/dL) 277 H 336 H 353 H (70-110) mg/dL Calcium (8.4-10.2) mg/dL 08/09/23 08/09/23 Range/Units 05:09 06:36 Sodium 135 L (137-145) mmol/L Creatinine 0.45 L (0.52-1.04) mg/dL Glucose 182 H (74-99) mg/dL POC Glucose (mg/dL) 181 H (70-110) mg/dL Calcium 8.0 L (8.4-10.2) mg/dL Microbiology - Last 24 Hours (Table) 08/05/23 04:15 Blood Culture - Preliminary Blood 08/05/23 04:00 Blood Culture - Preliminary Blood
[2023-08-09] MEDS: CLOPIDOGREL 75 MG TAB PO SCH (08:36)
[2023-08-09] MEDS: ASPIRIN 81 MG PO SCH (08:36)
[2023-08-09] MEDS: SPIRONOLACTONE 25 MG TAB PO SCH (08:36)
[2023-08-09] MEDS: ENOXAPARIN 40 MG/0.4 ML SYRINGE SQ SCH (08:36)
[2023-08-09] MEDS: LACTULOSE 20 GM/30 ML CUP PO SCH (08:36)
[2023-08-09] MEDS: METOPROLOL TARTRATE 25 MG TAB PO SCH ×2 (08:36→20:54)
[2023-08-09] MEDS: ATORVASTATIN 40 MG TAB PO SCH (08:38)
[2023-08-09] MEDS: BUDESONIDE 1 MG/2 ML NEBU INHALATION SCH (08:48)
[2023-08-09] MEDS: IPRATROPIUM-ALBUTEROL 3 ML NEB INHALATION SCH ×4 (08:48→20:35)
[2023-08-09] MEDS: FORMOTEROL FUMARATE 20 MCG/2 ML NEBU INHALATION SCH (08:48)
--- NOTE | 2023-08-09 09:40 | P.PN ---
Subjective Progress Note Date: 08/09/23 This is a 72-year-old female patient who presented to the ER with multiple complaints. Patient is currently sedated on BiPAP all information is obtained from medical record no family at bedside Upon arrival to the ER it appears that patient came very agitated and family returned her back to the ER according to ER reports complaints upon arrival include chest discomfort coughing nausea hyperglycemia anxiety and diaphoresis. Per records patient symptoms have been occurring over the past 2 days with elevated blood sugars. Patient has a past medical history of asthma, coronary artery disease with coronary artery bypass graft surgery, heart failure, COPD, diabetes mellitus, fibromyalgia, hyperlipi demia, hypertension, diabetes mellitus, sleep apnea and ex-smoker. Chest x-ray performed showing cardiomegaly with mild central vascular congestion and new right upper to midlung acute infiltrate and/or edema. Head CT completed showing no acute intracranial hemorrhage or midline shift there is mild diffuse age- related cerebral atrophy and chronic small vessel ischemic changes significant change from prior. Thoracic aorta CT performed showing borderline aneurysmal dilation of the ascending thoracic aorta the remainder daily order is of normal caliber no dissection of intra-mural hematoma seen. Blood sugar upon arrival 831, sodium 123, potassium 5.5, lactic acid 6.8, WBC 23.0. Patient also noted to have significant tachycardia initially elevated at 151. Patient was given multiple medications in ER due to agitation. Patient was placed on BiPAP. Patient was started on IV Zosyn, IV Solu-Medrol and insulin drip. Patient will be admitted to the intensive care unit patient also started on Precedex per critical care services. Will consult infectious disease due to sepsis. Drug screen ordered repeat labs ordered. Will also consult cardiology services due to initial complaints of chest pain and elevated heart rate. On 08/05/2023 patient was seen and examined in the ICU she is currently intubated sedated maintained on mechanical ventilation. Vital exam reveals a temperature of 99.9 pulse 72 respiration 22 blood pressure 118/53 pulse ox 100% on FiO2 of 50% Arterial blood gas reveals a pH of 7.44 pCO2 33 by mouth to 186 white blood count 23.8 hemoglobin 10.4 platelet count 371 sodium 136 potassium 4.2 chloride 108 CO2 22 BUN 20 creatinine 0.67 On 08/06/2023 patient currently intubated and sedated in the intensive care unit. Per nursing staff patient has been weaned off Levophed. Remains on insulin per [facility] protocol. Patient remains on IV Zosyn IV Solu-Medrol. Patient remains on FiO2 of 40%. Critical care infectious disease and cardiology services consulted On 08/07/2023 patient was seen and examined in the ICU, she is alert and oriented 3 in no apparent distress, she was extubated earlier and currently is maintained on oxygen 6 L via nasal cannula, there is no fever or chills no headache or dizziness no chest pain no shortness of breath no cough no nausea or vomiting no abdominal pain no diarrhea and no urinary symptoms. At this time will discontinue insulin drip, will start Levemir 20 units daily, and insulin sliding scale. We'll continue to follow closely. On 08/08/2023 patient remains extubated in the intensive care unit currently on 2 L nasal cannula. Current vitals temp 97.8, , heart rate 84, respiratory rate 18, blood pressure 114/64 with a pulse ox of 98% on 2 L. Patient remains on IV Solu-Medrol and Zosyn. Critical care, infectious disease and cardiology services are all following. Patient is alert and oriented 3. Denies chest pain or shortness of breath. Denies nausea vomiting or diarrhea. Denies any urinary burning or frequency On 08/09/2023 patient is alert and oriented 3 currently on room air. Current vital signs 97.8, heart rate 77, respiratory 18, blood pressure 143/71 with pulse ox 98% on room and will consult PT OT and social work services for discharge planning Objective - Vital Signs Vital signs: Vital Signs Temp 97.8 F 08/09/23 07:58 Pulse 89 08/09/23 09:09 Resp 18 08/09/23 07:58 BP 143/71 08/09/23 07:58 Pulse Ox 97 08/09/23 08:50 FiO2 35 08/07/23 12:00 Intake & Output 08/08/23 08/09/23 08/09/23 18:59 06:59 18:59 Intake Total 450 690 Output Total 1045 1210 Balance -595 -520 Weight 90.6 kg Intake: IV 300 210 .9 KVO 100 Invasive Line 6 10 Piperacillin-Tazobactam 3 100 .375 gm In Sodium Chloride 0.9% 100 ml @ 25 mls/hr IVPB Q8HR [facility] Rx# :[id number] Sodium Chloride 0.9% 1, 300 000 ml @ 10 mls/hr IV . Q24H [facility] Rx#:[id number] Oral 150 480 Output: Urine 1045 1210 Other: Voiding Method Indwelling Catheter Indwelling Catheter ABP, PAP, CO, CI - Last Documented Arterial Blood Pressure 108/82 - Exam In general patient is alert and oriented 3 in no apparent distress HEENT head normocephalic and atraumatic Neck is supple no JVD no goiter no lymphadenopathy no carotid bruit Chest examination is clear to auscultation no crackles no wheezing Cardiac exam reveals regular heart sounds S1 and S2 no gallops no murmurs Abdomen is soft nontender no organomegaly with normal bowel sounds Extremity exam reveals no edema no cyanosis or clubbing Neurological examination reveals no gross focal deficits - Labs CBC & Chem 7: 08/08/23 04:17 08/09/23 05:09 Labs: Abnormal Lab Results - Last 24 Hours (Table) 08/08/23 08/08/23 08/08/23 Range/Units 11:57 16:51 20:48 Sodium (137-145) mmol/L Creatinine (0.52-1.04) mg/dL Glucose (74-99) mg/dL POC Glucose (mg/dL) 277 H 336 H 353 H (70-110) mg/dL Calcium (8.4-10.2) mg/dL 08/09/23 08/09/23 Range/Units 05:09 06:36 Sodium 135 L (137-145) mmol/L Creatinine 0.45 L (0.52-1.04) mg/dL Glucose 182 H (74-99) mg/dL POC Glucose (mg/dL) 181 H (70-110) mg/dL Calcium 8.0 L (8.4-10.2) mg/dL Microbiology - Last 24 Hours (Table) 08/05/23 04:15 Blood Culture - Preliminary Blood 08/05/23 04:00 Blood Culture - Preliminary Blood Assessment and Plan Assessment: 1. Acute hypoxic respiratory failure, currently intubated sedated maintained on mechanical ventilation. Extubated 08/07/2023 2. Hyperglycemia possible HHS or DKA. Patient started on insulin drip 3. Sepsis with elevated lactic acid and WBC. 4. Pneumonia. Patient started on IV Zosyn 5. Electrolyte imbalance 6. Tachycardia. Cardiology service is consulted 7. Acute exacerbation of COPD 8. Underlying history of coronary artery disease with previous history of angioplasty and stent and coronary artery bypass graft surgery 9. History of non-compliance with medication 10. History of essential hypertension 11. History of hyperlipidemia 12. History of insulin-dependent diabetes mellitus 13. History of tobacco and drug use DVT prophylaxis Lovenox. GI prophylaxis Protonix Critical care services, infectious disease and cardiology services are consulted Patient started on IV antibiotics Patient started on IV steroids PT OT and social work services consulted
[2023-08-09 10:47] VITALS: BMI 36.5
[2023-08-09 10:48] LABS: Glucose,Whole Blood 277 mg/dL (70-110)
[2023-08-09] MEDS: NOREPINEPHRINE 4 MG in SODIUM CHLORIDE 0.9% 250 ML IV SCH (10:48)
--- NOTE | 2023-08-09 12:18 | P.PN ---
Subjective Progress Note Date: 08/09/23 Principal diagnosis: Respiratory failure. This is a 72-year-old female with history of multiple medical problems including severe COPD/asthma patient was recently in the hospital and she was seen by Dr. Murry on consultation. Patient was brought into the ER and early this mo rning with multiple complaints, however the patient herself is a very poor historian, and could not get information from the patient. But according to the chart the patient arrived to the ER, she was extremely agitated, she was also complaining of some vague chest discomfort, cough, nausea and vomiting, she was also sweating profusely upon arrival. Patient was noted to have extremely elevated blood sugar however she had negative ketones. When I saw the patient she was not answering any questions and was not cooperative, patient was on BiPAP. Chest x-ray showed cardiomegaly, mild pulmonary vascular congestion, questionable right upper lobe infiltrate her labs showed evidence of leukocytos is with WBC count of 23.0 hemoglobin 10.8. Sodium was noted to be low at 123 however this is a pseudohyponatremia because her blood sugar was a 51. Bicarb was noted to be 15 and she had anion gap of 22. Urine was negative for ketones. Troponin was slightly elevated. At any rate I evaluated the patient in the ER, recommended icy admission once a bed becomes available in the meantime we will place the patient on the DKA protocol although the patient has what seems to be a hyperosmolar nonketotic state. With hyperglycemia. And acute anion gap metabolic acidosis. Again her ketones were negative in the urine. Patient was also placed on antibiotics, and bronchodilators follow-up ABG was ordered Patient was reevaluated today on 08/05/2023. Patient was transferred to the ICU from the ER early evening yesterday, and upon arrival to the ICU patient was hypoxic, agitated and restless, and her ABG was quite abnormal. I was notified about this patient, and I recommended immediate intubation. Patient was placed on mechanical ventilation, and overnight she was placed on norepinephrine. Remains on norepinephrine at 0.1 mcg/kg/m mostly for low blood pressure. Patient is now on assist control rate of 20, volume 500 FiO2 50% and PEEP of 5 ABG showed a pO2 of 186 pCO2 33 pH of 7.44. She was on Precedex which I have discontinued. And I will keep the patient on propofol for now. Considering the patient is on norepinephrine I went ahead and placed a right subclavian triple- lumen catheter. Patient's sugar is much better controlled today, she was still on insulin drip which I have recommended tapering down and changing her main IV fluid to 0.9 normal saline at 100 mL per hour. Empirically the patient is on Zosyn, chest x-ray showed dramatic improvement in her right upper lobe abnormality however she does have bibasilar atelectasis. Questionable aspiration is possible but felt to be less likely. Cultures are pending. Venous Doppler of the lower extremities was negative. D-dimer was slightly elevated at 2.23 and drug screen was negative except for cannabinoids. Uri nalysis is unremarkable. Lactic acid on admission was 3.6 but now it's 2.0 WBC count is 23.8 hemoglobin is 10.4, blood sugar is 236 this morning, anion gap is only 6. Patient was reevaluated today on 08/06/2023, remains in the ICU, intubated and mechanically ventilated. Patient is on assist control rate of 2010 volume 500 FiO2 40% PEEP of 5 ABG showed a pO2 of 105 pCO2 37 pH of 7.44 hence the patient was kept on 40% FiO2. Patient remains on propofol at 50 mcg/kg/m receiving a small amount of insulin 0.32 units per hour and on IV fluid 0.9 normal saline at 100 mL per hour. Patient is tachycardic, hence I added Lopressor as she takes normally beta blockers at home and this will be at 50 mg twice a day. Patient remains on Zosyn empirically, and she is receiving Dilaudid when necessary. Sputum cultures are basically nondiagnostic. So far WBC count is down to 17 hemoglobin is 9.9 platelets are 244, basic metabolic profile is normal renal profile is normal. Patient is arousable but she seems to be quite frail and weak. And on physical examination she had scattered rhonchi bilaterally and did not proceed with weaning trials today. Progress note dated 08/07/2023. This is a 72-year-old female who was admitted on August 04, with hyperglycemic hyperosmolar syndrome. She also was thought to have sepsis. She was intubated on the same day, August 04. Currently, she is on volume assist control, rate 20, tidal volume 500, FiO2 35%, and PEEP of 5. Blood gases were not done. The patient's getting saline at 100 mL an hour, norepinephrine at 1.5 mcg/m, propofol at 60 mcg/kg/m, insulin at 3.32 units an hour, and vital high protein at 10 mL an hour. The patient has not had any weaning trials as yet. Today, we will do a daily interruption of sedation, and a spontaneous breathing trial, but also we'll push her endotracheal tube about 3-4 cm. White count 8.5, hemoglobin 8.2, hematocrit 27.4, with a platelet count of 194,000. Sodium 138, potassium 3.7, chlorides 111, CO2 23, BUN 17, creatinine 0.56. Chest x-ray suggested the possibility of CHF, and a possible right lower lobe infiltrate. Progress note dated 08/08/2023. 72-year-old female admitted on August 04, with hyperglycemic hyperosmolar coma. The patient was thought to have sepsis as well, and was intubated for respiratory failure on August 04. The patient was successfully extubated yesterday, August 07. She remains on nasal cannula 1 L. She is also getting saline at 100 mL an hour. The triple-lumen catheter can be discontinued, and the tip cultured. Laboratory data includes a white count 8.6, hemoglobin 9.1, hematocrit 28.8, and a platelet count of 202,000. Sodium 138, potassium 3.8, ch lorides 109, CO2 25, BUN 17, creatinine 0.61. Chest x-ray shows evidence of cardiomegaly, right basilar patchy opacities or atelectasis, and a small left- sided pleural effusion. Progress note dated 08/09/2023. 72-year-old female who was admitted on August 04, with hyperglycemic hyperosmolar syndrome. The patient was also thought to have sepsis as well, and was intubated for respiratory failure on August 04. She was successfully extubated on August 07. She is seen in the intensive care unit, room 259. She's been weaned down to room air. She's not receiving any IV fluids. She is receiving Zosyn. Labs today include a sodium 135, potassium 3.5, chlorides 106, CO2 23, BUN 16, and a creatinine of 0.45. Calcium is 8. Cultures are thus far negative. No chest x-ray today. Objective - Vital Signs Vital signs: Vital Signs Temp 97.8 F 08/09/23 07:58 Pulse 90 08/09/23 11:22 Resp 18 08/09/23 07:58 BP 143/71 08/09/23 07:58 Pulse Ox 97 08/09/23 08:50 FiO2 35 08/07/23 12:00 Intake & Output 08/08/23 08/09/23 08/09/23 18:59 06:59 18:59 Intake Total 450 690 250 Output Total 1045 1210 375 Balance -595 -520 -125 Weight 90.6 kg 90.6 kg Intake: IV 300 210 10 .9 KVO 100 Invasive Line 6 10 10 Piperacillin-Tazobactam 3 100 .375 gm In Sodium Chloride 0.9% 100 ml @ 25 mls/hr IVPB Q8HR [facility] Rx# :[id number] Sodium Chloride 0.9% 1, 300 000 ml @ 10 mls/hr IV . Q24H [facility] Rx#:[id number] Oral 150 480 240 Output: Urine 1045 1210 375 Other: Voiding Method Indwelling Catheter Indwelling Catheter Indwelling Catheter ABP, PAP, CO, CI - Last Documented Arterial Blood Pressure 108/82 - Exam No acute distress, awake and alert, currently on room air. HEENT examination is grossly unremarkable. Neck supple. Full range of motion. No adenopathy thyromegaly or neck vein distention. Cardiovascular examination reveals regular rhythm rate. S1-S2 normal. No S3 or S4. No discernible murmur noted. Heart rate 90 bpm. Heart sounds are distant. Lungs reveal scattered bilateral rhonchi and crackles. No wheezes. Breath sounds are equal bilaterally. Saturations are 97 %. Abdomen soft bowel sounds are heard. No masses or tenderness. Extremities are intact. No cyanosis clubbing or edema. Skin is without rash or lesion. Neurologic examination is within normal range. - Labs CBC & Chem 7: 08/08/23 04:17 08/09/23 05:09 Labs: Abnormal Lab Results - Last 24 Hours (Table) 08/08/23 08/08/23 08/09/23 Range/Units 16:51 20:48 05:09 Sodium 135 L (137-145) mmol/L Creatinine 0.45 L (0.52-1.04) mg/dL Glucose 182 H (74-99) mg/dL POC Glucose (mg/dL) 336 H 353 H (70-110) mg/dL Calcium 8.0 L (8.4-10.2) mg/dL 08/09/23 08/09/23 Range/Units 06:36 10:47 Sodium (137-145) mmol/L Creatinine (0.52-1.04) mg/dL Glucose (74-99) mg/dL POC Glucose (mg/dL) 181 H 277 H (70-110) mg/dL Calcium (8.4-10.2) mg/dL Microbiology - Last 24 Hours (Table) 08/08/23 12:13 Catheter Tip Culture - Preliminary Catheter Tip 08/05/23 04:15 Blood Culture - Preliminary Blood 08/05/23 04:00 Blood Culture - Preliminary Blood Assessment and Plan Assessment: Acute hypoxemic respiratory failure, requiring intubation and mechanical ventilation, on 08/04/2023, with possible sepsis, and hyperosmolar, hy perglycemic syndrome. S/P successful extubation on 08/07/2023. Possible aspiration pneumonia. Acute metabolic encephalopathy. Acute exacerbation of COPD. Pseudohyponatremia. Acute on chronic congestive heart failure, systolic. CAD with previous CABG, and stenting, November 2022. Dyslipidemia. Benign essential hypertension. History of thyroid nodule. Fibromyalgia. Current marijuana use. Previous tobacco use. Plan: Plan dated 08/07/2023. The patient's oxygenation is very good. She seems stable on the ventilator. Today, she will have a daily interruption of sedation, and a spontaneous breathing trial, with a pressure support of 5, and CPAP of 5. After 20 or 30 minutes, the patient will have a full set a weaning parameters, including a rapid shallow breathing index, and a cuff leak test. His numbers look good, she will be extubated. Labs, x-rays, and medications are all reviewed. Additional recommendations and suggestions are forthcoming. Prognosis is guarded. Plan dated 08/08/2023. After placing the patient on a spontaneous breathing trial yesterday, on pressure support of 5, and CPAP of 5, and obtaining excellent weaning parameters at 30 minutes, the decision was made to extubate the patient. This occurred on 08/07/2023. Currently, the patient appears to be doing reasonably well. She continues in the intensive care unit, in room 259. She's getting saline at 100 mL an hour. The central line discontinued, and we would like the tip of the central line culture. We will continue to follow the patient, and make recommendations along the way. Prognosis is guarded. Plan dated 08/09/2023. The patient's doing much better. She is on room air. She's not receiving any IV fluids. The patient continues on Zosyn. Cultures are all negative. Labs, x-rays, and all medications are reviewed. The patient is stable for transfer out of the intensive care unit. Her respiratory status is stable. Her cardiovascular status is stable. Her budesonide and formoterol discontinued, in favor of Symbicort. She will get the Symbicort 160/1.5, 2 puffs twice a day. Time with Patient: Less than 30
[2023-08-09 16:52] LABS: Glucose,Whole Blood 254 mg/dL (70-110)
[2023-08-09 20:21] LABS: Glucose,Whole Blood 273 mg/dL (70-110)
[2023-08-09] MEDS: SYMBICORT 160-4.5 MCG INHALER INHALATION SCH (20:35)
[2023-08-09] MEDS: INSULIN DETEMIR (LEVEMIR) 100 UNIT/ML SYR SQ SCH (20:54)
[2023-08-09] MEDS ORDERED: MELATONIN 5 MG TABLET PO SCH (21:00)
[2023-08-10 05:42] LABS: Glucose,Whole Blood 134 mg/dL (70-110)
[2023-08-10] MEDS: PIPERACILLIN-TAZOBACTAM 3.375 GM in SODIUM CHLORIDE 0.9% 100 ML IVPB SCH ×2 (06:26→07:41)
[2023-08-10 06:51] LABS: Anisocytosis Slight; Basophils % (A) 0 %; Eosinophils # (A) 0.1 k/uL (0-0.7); Eosinophils % (A) 1 %; HCT 33.2 % (34.0-46.0); HGB 10.4 gm/dL (11.4-16.0); Hypochromasia Marked; Lymphocytes # (A) 2.3 k/uL (1.0-4.8); Lymphocytes % (A) 23 %; MCH 23.3 pg (25.0-35.0); MCHC 31.2 g/dL (31.0-37.0); MCV 74.8 fL (80.0-100.0); Mean Platelet Volume 9.7; Microcytosis Moderate; Monocytes # (A) 0.5 k/uL (0-1.0); Monocytes % (A) 5 %; Neutrophils # (A) 6.7 k/uL (1.3-7.7); Neutrophils % (A) 69 %; Platelet Count 196 k/uL (150-450); RBC 4.45 m/uL (3.80-5.40); RDW 18.5 % (11.5-15.5); WBC 9.7 k/uL (3.8-10.6)
[2023-08-10 07:01] LABS: ALT 27 U/L (4-34); AST 28 U/L (14-36); African American GFR (CKD) >90 (>60 ml/min/1.73 sqM); Albumin 2.8 g/dL (3.5-5.0); Albumin/Globulin Ratio 1.2; Alkaline Phosphatase 58 U/L (38-126); Anion Gap 7 mmol/L; Blood Urea Nitrogen 14 mg/dL (7-17); Calcium 8.4 mg/dL (8.4-10.2); Carbon Dioxide 23 mmol/L (22-30); Chloride 108 mmol/L (98-107); Globulin 2.4 g/dL; Glucose 112 mg/dL (74-99); Non-African American GFR(CKD) >90 (>60 ml/min/1.73 sqM); Potassium 3.5 mmol/L (3.5-5.1); Sodium 138 mmol/L (137-145); Total Bilirubin 0.5 mg/dL (0.2-1.3); Total Protein 5.2 g/dL (6.3-8.2)
[2023-08-10] MEDS: PANTOPRAZOLE 40 MG TABLET PO SCH (07:41)
[2023-08-10 07:58] LABS: Glucose,Whole Blood 102 mg/dL (70-110)
[2023-08-10] MEDS: INSULIN ASPART (NovoLOG) 100 UNIT/ML VIAL SQ SCH ×2 (08:06→13:13)
[2023-08-10] MEDS: SYMBICORT 160-4.5 MCG INHALER INHALATION SCH (08:34)
[2023-08-10] MEDS: IPRATROPIUM-ALBUTEROL 3 ML NEB INHALATION SCH ×3 (08:34→16:09)
--- NOTE | 2023-08-10 08:59 | P.PN ---
Subjective Progress Note Date: 08/10/23 PROGRESS NOTE The patient is a 72-year-old female with known history of CAD status post CABG and PCI, history of diabetes, asthma who presented with respiratory distress requiring mechanical ventilation and possible sepsis. She remains intubated and sedated. She is on a low dose of norepinephrine. She continues to be in sinus mechanism. Her urinary output has been stable. There is no evidence of atrial fibrillation or ventricular tachycardia. She underwent stenting in November of this year by Dr. Grewal. She had an echocardiogram in June that showed an ejection fraction of 30-35% with [id number] mitral regurgitation and inferior wall hypokinesis. She had episodes of sinus tachycardia and she was started on a beta marcos. August 08: The patient is extubated, hemodynamically stable on no vasopressors. She is in sinus mechanism. She had episodes of tachycardia after intubation yesterday that resolved. She's feeling well. She denies any chest discomfort, dizziness or palpitations. She has no nausea or vomiting. Her urinary output has been good. August 09: The patient is feeling well this morning, anxious to go home. She denies any chest discomfort, dizziness or palpitations. She denies any nausea. She continues to be in sinus mechanism. Hemodynamically stable. Her echocardiogram showed a severely impaired systolic function. 08/10 Patient is seen today on the [facility] floor. She states she had a comfortable evening and no problems overnight. Patient states she anticipates discharge today. Heart rate is running in the 70s and 80s, blood pressure 136/74, pulse ox 97% on room air. WBC 9.7, hemoglobin 10.4, BUN 14 creatinine 0.42. Medications: Aspirin, Plavix 75 mg daily, Lovenox, metoprolol tartrate 25 mg twice a day, insulin, lisinopril 2.5 mg twice a day, spironolactone 25 mg daily. PHYSICAL EXAMINATION: LUNGS: Clear to auscultation, with few crackles HEART: Regular rate and rhythm, S1, S2. No S3. ABDOMEN: Soft, positive bowel sounds, no organomegaly, nontender EXTREMETIES: No edema IMPRESSION: 1. Respiratory failure, multifactorial, possible aspiration pneumonia 2. History of CAD status post CABG and PCI 3. History of ischemic cardiomyopathy 4. History of COPD PLAN: 1. Continue present therapy 2. Increase physical activity 3. Follow blood pressure 4. Follow renal functions 5. Depending on her progress add Farxiga 10 mg daily 6. Patient is cleared from cardiology for discharge with follow-up in the office in one to 2 weeks. Impression and plan of care have been directed as dictated by the signing physician. Chelsey Pace nurse practitioner acting as scribe for signing physician. Objective - Vital Signs Vital signs: Vital Signs Temp 98 F 08/10/23 07:20 Pulse 50 L 08/10/23 07:20 Resp 17 08/10/23 07:20 BP 136/74 08/10/23 07:20 Pulse Ox 98 08/10/23 07:20 FiO2 35 08/07/23 12:00 Intake & Output 08/09/23 08/10/23 08/10/23 18:59 06:59 18:59 Intake Total 1650 425 Output Total 925 Balance 725 425 Weight 90.6 kg Intake: IV 210 Invasive Line 6 10 Piperacillin-Tazobactam 3 200 .375 gm In Sodium Chloride 0.9% 100 ml @ 25 mls/hr IVPB Q8HR [facility] Rx# :[id number] Oral 1440 425 Output: Urine 925 Other: Voiding Method Indwelling Catheter Indwelling Catheter # Voids 2 ABP, PAP, CO, CI - Last Documented Arterial Blood Pressure 108/82 - Labs CBC & Chem 7: 08/10/23 05:24 08/10/23 05:24 Labs: Abnormal Lab Results - Last 24 Hours (Table) 08/09/23 08/09/23 08/09/23 Range/Units 10:47 16:50 20:18 Hgb (11.4-16.0) gm/dL Hct (34.0-46.0) % MCV (80.0-100.0) fL MCH (25.0-35.0) pg RDW (11.5-15.5) % Chloride (98-107) mmol/L Creatinine (0.52-1.04) mg/dL Glucose (74-99) mg/dL POC Glucose (mg/dL) 277 H 254 H 273 H (70-110) mg/dL Total Protein (6.3-8.2) g/dL Albumin (3.5-5.0) g/dL 08/10/23 08/10/23 08/10/23 Range/Units 02:28 05:24 05:24 Hgb 10.4 L (11.4-16.0) gm/dL Hct 33.2 L (34.0-46.0) % MCV 74.8 L (80.0-100.0) fL MCH 23.3 L (25.0-35.0) pg RDW 18.5 H (11.5-15.5) % Chloride 108 H (98-107) mmol/L Creatinine 0.42 L (0.52-1.04) mg/dL Glucose 112 H (74-99) mg/dL POC Glucose (mg/dL) 134 H (70-110) mg/dL Total Protein 5.2 L (6.3-8.2) g/dL Albumin 2.8 L (3.5-5.0) g/dL Microbiology - Last 24 Hours (Table) 08/08/23 12:13 Catheter Tip Culture - Preliminary Catheter Tip
[2023-08-10] MEDS ORDERED: predniSONE 20 MG TAB PO SCH (09:00)
--- NOTE | 2023-08-10 09:09 | P.PN ---
Subjective Progress Note Date: 08/10/23 This is a 72-year-old female with history of multiple medical problems including severe COPD/asthma patient was recently in the hospital and she was seen by Dr. Murry on consultation. Patient was brought into the ER and early this morning with multiple complaints, however the patient herself is a very poor historian, and could not get information from the patient. But according to the chart the patient arrived to the ER, she was extremely agitated, she was also complaining of some vague chest discomfort, cough, nausea and vomiting, she was also sweating profusely upon arrival. Patient was noted to have extremely elevated blood sugar however she had negative ketones. When I saw the patient s he was not answering any questions and was not cooperative, patient was on BiPAP. Chest x-ray showed cardiomegaly, mild pulmonary vascular congestion, questionable right upper lobe infiltrate her labs showed evidence of leukocytosis with WBC count of 23.0 hemoglobin 10.8. Sodium was noted to be low at 123 however this is a pseudohyponatremia because her blood sugar was a 51. Bicarb was noted to be 15 and she had anion gap of 22. Urine was negative for ketones. Troponin was slightly elevated. At any rate I evaluated the patient in the ER, recommended icy admission once a bed becomes available in the meantime we will place the patient on the DKA protocol although the patient has what seems to be a hyperosmolar nonketotic state. With hyperglycemia. And acute anion gap metabolic acidosis. Again her ketones were negative in the urine. Patient was also placed on antibiotics, and bronchodilators follow-up ABG was ordered Patient was reevaluated today on 08/05/2023. Patient was transferred to the ICU from the ER early evening yesterday, and upon arrival to the ICU patient was hy poxic, agitated and restless, and her ABG was quite abnormal. I was notified about this patient, and I recommended immediate intubation. Patient was placed on mechanical ventilation, and overnight she was placed on norepinephrine. Remains on norepinephrine at 0.1 mcg/kg/m mostly for low blood pressure. Patient is now on assist control rate of 20, volume 500 FiO2 50% and PEEP of 5 ABG showed a pO2 of 186 pCO2 33 pH of 7.44. She was on Precedex which I have discontinued. And I will keep the patient on propofol for now. Considering the patient is on norepinephrine I went ahead and placed a right subclavian triple- lumen catheter. Patient's sugar is much better controlled today, she was still on insulin drip which I have recommended tapering down and changing her main IV fluid to 0.9 normal saline at 100 mL per hour. Empirically the patient is on Zosyn, chest x-ray showed dramatic improvement in her right upper lobe abnormality however she does have bibasilar atelectasis. Questionable aspiration is possible but felt to be less likely. Cultures are pending. Venous Doppler of the lower extremities was negative. D-dimer was slightly elevated at 2.23 and drug screen was negative except for cannabinoids. Urinalysis is unremarkable. Lactic acid on admission was 3.6 but now it's 2.0 WBC count is 23.8 hemoglobin is 10.4, blood sugar is 236 this morning, anion gap is only 6. Patient was reevaluated today on 08/06/2023, remains in the ICU, intubated and mechanically ventilated. Patient is on assist control rate of 2010 volume 500 FiO2 40% PEEP of 5 ABG showed a pO2 of 105 pCO2 37 pH of 7.44 hence the patient was kept on 40% FiO2. Patient remains on propofol at 50 mcg/kg/m receiving a small amount of insulin 0.32 units per hour and on IV fluid 0.9 normal saline at 100 mL per hour. Patient is tachycardic, hence I added Lopressor as she takes normally beta blockers at home and this will be at 50 mg twice a day. Patient remains on Zosyn empirically, and she is receiving Dilaudid when necessary. Sputum cultures are basically nondiagnostic. So far WBC count is down to 17 hemoglobin is 9.9 platelets are 244, basic metabolic profile is normal renal profile is normal. Patient is arousable but she seems to be quite frail and weak. And on physical examination she had scattered rhonchi bilaterally and did not proceed with weaning trials today. Progress note dated 08/07/2023. This is a 72-year-old female who was admitted on August 04, with hyperglycemic hyperosmolar syndrome. She also was thought to have sepsis. She was intubated on the same day, August 04. Currently, she is on volume assist control, rate 20, tidal volume 500, FiO2 35%, and PEEP of 5. Blood gases were not done. The patient's getting saline at 100 mL an hour, norepinephrine at 1.5 mcg/m, propofol at 60 mcg/kg/m, insulin at 3.32 units an hour, and vital high protein at 10 mL an hour. The patient has not had any weaning trials as yet. Today, we will do a daily interruption of sedation, and a spontaneous breathing trial, but also we'll push her endotracheal tube about 3-4 cm. White count 8.5, hemoglobin 8.2, hematocrit 27.4, with a platelet count of 194,000. Sodium 138, potassium 3.7, chlorides 111, CO2 23, BUN 17, creatinine 0.56. Chest x-ray suggested the possibility of CHF, and a possible right lower lobe infiltrate. Progress note dated 08/08/2023. 72-year-old female admitted on August 04, with hyperglycemic hyperosmolar coma. The patient was thought to have sepsis as well, and was intubated for respiratory failure on August 04. The patient was successfully extubated yesterday, August 07. She remains on nasal cannula 1 L. She is also getting saline at 100 mL an hour. The triple-lumen catheter can be discontinued, and the tip cultured. Laboratory data includes a white count 8.6, hemoglobin 9.1, hematocrit 28.8, and a platelet count of 202,000. Sodium 138, potassium 3.8, chlorides 109, CO2 25, BUN 17, creatinine 0.61. Chest x-ray shows evidence of cardiomegaly, right basilar patchy opacities or atelectasis, and a small left- sided pleural effusion. Progress note dated 08/09/2023. 72-year-old female who was admitted on August 04, with hyperglycemic hyperosmolar syndrome. The patient was also thought to have sepsis as well, and was intubated for respiratory failure on August 04. She was successfully extubated on August 07. She is seen in the intensive care unit, room 259. She's been weaned down to room air. She's not receiving any IV fluids. She is receiving Zosyn. Labs today include a sodium 135, potassium 3.5, chlorides 106, CO2 23, BUN 16, and a creatinine of 0.45. Calcium is 8. Cultures are thus far negative. No chest x-ray today. The patient is seen today 08/10/2023 in follow-up on the regular medical floor. She is currently sitting up in bed. Awake and alert in no acute distress. Maintaining good O2 saturations in the 90s on room air. Blood cultures reveal no growth. Catheter tip culture revealing no growth. He is currently on Zosyn. White count 9.7. Hemoglobin 10.4. Platelets 196. Sodium 138. Potassium 3.5. Bicarb 27. BUN 14. Creatinine 0.42. Glucose 112. She is continued on DuoNeb inhalations, Symbicort, Solu-Medrol. Objective - Vital Signs Vital signs: Vital Signs Temp 98 F 08/10/23 07:20 Pulse 80 08/10/23 08:46 Resp 17 08/10/23 07:20 BP 136/74 08/10/23 07:20 Pulse Ox 97 08/10/23 08:34 FiO2 35 08/07/23 12:00 Intake & Output 08/09/23 08/10/23 08/10/23 18:59 06:59 18:59 Intake Total 1650 425 Output Total 925 Balance 725 425 Weight 90.6 kg Intake: IV 210 Invasive Line 6 10 Piperacillin-Tazobactam 3 200 .375 gm In Sodium Chloride 0.9% 100 ml @ 25 mls/hr IVPB Q8HR [facility] Rx# :[id number] Oral 1440 425 Output: Urine 925 Other: Voiding Method Indwelling Catheter Indwelling Catheter # Voids 2 ABP, PAP, CO, CI - Last Documented Arterial Blood Pressure 108/82 - Exam GENERAL EXAM: Alert, pleasant 72-year-old female, on room air, comfortable in no apparent distress. HEAD: Normocephalic. EYES: Normal reaction of pupils, equal size. NOSE: Clear with pink turbinates. THROAT: No erythema or exudates. NECK: No masses, no JVD. CHEST: No chest wall deformity. LUNGS: Equal air entry with no crackles, wheeze, rhonchi or dullness. CVS: S1 and S2 normal with no audible murmur, regular rhythm. ABDOMEN: No hepatosplenomegaly, normal bowel sounds, no guarding or rigidity. SPINE: No scoliosis or deformity SKIN: No rashes CENTRAL NERVOUS SYSTEM: No focal deficits, tone is normal in all 4 extremities. EXTREMITIES: There is no peripheral edema. No clubbing, no cyanosis. Peripheral pulses are intact. - Labs CBC & Chem 7: 08/10/23 05:24 08/10/23 05:24 Labs: Abnormal Lab Results - Last 24 Hours (Table) 08/09/23 08/09/23 08/09/23 Range/Units 10:47 16:50 20:18 Hgb (11.4-16.0) gm/dL Hct (34.0-46.0) % MCV (80.0-100.0) fL MCH (25.0-35.0) pg RDW (11.5-15.5) % Chloride (98-107) mmol/L Creatinine (0.52-1.04) mg/dL Glucose (74-99) mg/dL POC Glucose (mg/dL) 277 H 254 H 273 H (70-110) mg/dL Total Protein (6.3-8.2) g/dL Albumin (3.5-5.0) g/dL 08/10/23 08/10/23 08/10/23 Range/Units 02:28 05:24 05:24 Hgb 10.4 L (11.4-16.0) gm/dL Hct 33.2 L (34.0-46.0) % MCV 74.8 L (80.0-100.0) fL MCH 23.3 L (25.0-35.0) pg RDW 18.5 H (11.5-15.5) % Chloride 108 H (98-107) mmol/L Creatinine 0.42 L (0.52-1.04) mg/dL Glucose 112 H (74-99) mg/dL POC Glucose (mg/dL) 134 H (70-110) mg/dL Total Protein 5.2 L (6.3-8.2) g/dL Albumin 2.8 L (3.5-5.0) g/dL Microbiology - Last 24 Hours (Table) 08/08/23 12:13 Catheter Tip Culture - Preliminary Catheter Tip Assessment and Plan Assessment: Acute hypoxemic respiratory failure, requiring intubation and mechanical ve ntilation, on 08/04/2023, subsequently extubated on 08/07/2023, recovered and on room air. Possible aspiration pneumonia. Completed a course of Zosyn Acute metabolic encephalopathy. Acute exacerbation of COPD. Pseudohyponatremia. Acute on chronic congestive heart failure, systolic. CAD with previous CABG, and stenting, November 2022. Dyslipidemia. Benign essential hypertension. History of thyroid nodule. Fibromyalgia. Current marijuana use. Previous tobacco use. Plan: The patient was seen and evaluated Medications and labs reviewed Discontinue Zosyn Discontinue Pulmicort and Perforomist inhalations Initiate Symbicort Discontinue Solu-Medrol Current initiated prednisone taper starting at 40 mg for 4 days Cleared for discharge from the pulmonary standpoint Follow-up in our office in 1 week This patient was seen independently by the nurse practitioner I have personally seen and examined the patient, performed the documentation and the assessment and plan as written. Number of minutes spent on the visit: 25.
[2023-08-10] MEDS: ASPIRIN 81 MG PO SCH (10:13)
[2023-08-10] MEDS: LACTULOSE 20 GM/30 ML CUP PO SCH (10:14)
[2023-08-10] MEDS: CLOPIDOGREL 75 MG TAB PO SCH (10:14)
[2023-08-10] MEDS: ATORVASTATIN 40 MG TAB PO SCH (10:14)
[2023-08-10] MEDS: SPIRONOLACTONE 25 MG TAB PO SCH (10:16)
[2023-08-10] MEDS: ENOXAPARIN 40 MG/0.4 ML SYRINGE SQ SCH (11:16)
[2023-08-10 12:00] VITALS: BP 115/70; RESP 16; TEMP 97.6
[2023-08-10 12:10] LABS: Glucose,Whole Blood 202 mg/dL (70-110)
[2023-08-10 12:41] VITALS: PULSE 80
[2023-08-10] MEDS: METOPROLOL TARTRATE 25 MG TAB PO SCH (12:55)
--- NOTE | 2023-08-10 16:40 | P.PN ---
Subjective Progress Note Date: 08/09/23 Principal diagnosis: Sepsis/aspiration pneumonia Patient is a 72-year-old female with a past medical history negative for diabetes mellitus hypertension hyperlipidemia presenting the hospital for nausea vomiting anxiety chest discomfort patient did have a respiratory distress initially on BiPAP however the patient ended up getting intubated because of worsening respiratory status and is in the ICU. Patient has been extubated as of 08/07/2023 On today's evaluation that is 08/09/2023, the patient remains to be afebrile the patient is breathing comfortably on room air, the patient denies chest pain, shortness of breath or cough, patient denies nausea/vomiting , no diarrhea and no abdominal pain Patient did have white count down to 8.6, creatinine 0.56 as of yesterday, chest x-ray bibasilar opacities and effusion, sputum with a Sania Objective - Vital Signs Vital signs: Vital Signs Temp 97.8 F 08/09/23 07:58 Pulse 90 08/09/23 11:22 Resp 18 08/09/23 07:58 BP 143/71 08/09/23 07:58 Pulse Ox 97 08/09/23 08:50 FiO2 35 08/07/23 12:00 Intake & Output 08/08/23 08/09/23 08/09/23 18:59 06:59 18:59 Intake Total 450 690 250 Output Total 1045 1210 375 Balance -595 -520 -125 Weight 90.6 kg 90.6 kg Intake: IV 300 210 10 .9 KVO 100 Invasive Line 6 10 10 Piperacillin-Tazobactam 3 100 .375 gm In Sodium Chloride 0.9% 100 ml @ 25 mls/hr IVPB Q8HR [facility] Rx# :[id number] Sodium Chloride 0.9% 1, 300 000 ml @ 10 mls/hr IV . Q24H [facility] Rx#:[id number] Oral 150 480 240 Output: Urine 1045 1210 375 Other: Voiding Method Indwelling Catheter Indwelling Catheter Indwelling Catheter ABP, PAP, CO, CI - Last Documented Arterial Blood Pressure 108/82 - Exam GENERAL DESCRIPTION: Elderly female lying in bed in no distress RESPIRATORY SYSTEM: Unlabored breathing , decreased breath sounds at bases HEART: S1 S2 regular rate and rhythm ABDOMEN: Soft , no tenderness EXTREMITIES: No edema feet - Labs CBC & Chem 7: 08/10/23 05:24 08/10/23 05:24 Labs: Abnormal Lab Results - Last 24 Hours (Table) 08/08/23 08/08/23 08/09/23 Range/Units 16:51 20:48 05:09 Sodium 135 L (137-145) mmol/L Creatinine 0.45 L (0.52-1.04) mg/dL Glucose 182 H (74-99) mg/dL POC Glucose (mg/dL) 336 H 353 H (70-110) mg/dL Calcium 8.0 L (8.4-10.2) mg/dL 08/09/23 08/09/23 Range/Units 06:36 10:47 Sodium (137-145) mmol/L Creatinine (0.52-1.04) mg/dL Glucose (74-99) mg/dL POC Glucose (mg/dL) 181 H 277 H (70-110) mg/dL Calcium (8.4-10.2) mg/dL Microbiology - Last 24 Hours (Table) 08/08/23 12:13 Catheter Tip Culture - Preliminary Catheter Tip 08/05/23 04:15 Blood Culture - Preliminary Blood 08/05/23 04:00 Blood Culture - Preliminary Blood Assessment and Plan (1) Aspiration pneumonia Current Visit: Yes Status: Acute Code(s): J69.0 - PNEUMONITIS DUE TO I NHALATION OF FOOD AND VOMIT SNOMED Code(s): 188216081 (2) Allergy to multiple antibiotics Current Visit: Yes Status: Acute Code(s): Z88.1 - ALLERGY STATUS TO OTHER ANTIBIOTIC AGENTS SNOMED Code(s): 650625307 (3) Sepsis Current Visit: Yes Status: Acute Code(s): A41.9 - SEPSIS, UNSPECIFIED ORGANISM SNOMED Code(s): 96156475 Plan: 1patient with a SIRS/sepsis in this patient with a leukocytosis and did have elevated lactic acid and tachycardia, patient presented hospital with agitation weakness some shortness of breath which is likely multifactorial patient did have some acute infiltrate on chest x-ray and concern for possible aspiration pneumonitis not entirely excluded currently no other obvious focus of infection, patient did have a negative UA abdomin soft on clinical examination no evidence of any joint swelling or redness 2sputum has been obtained and cultures growing Sania likely colonizer 3patient has shown clinical improvement and the patient has been extubated 4- patient to continue with the Zosyn 3.375 g every 8 hours and hopefully transition to a short course of Augmentin on discharge Dictation was produced using [employer] dictation software. please excuse any gramm atical, word or spelling errors. Time with Patient: Less than 30
--- NOTE | 2023-08-10 16:41 | P.PN ---
Subjective Progress Note Date: 08/10/23 Principal diagnosis: Sepsis/aspiration pneumonia Patient is a 72-year-old female with a past medical history negative for diabetes mellitus hypertension hyperlipidemia presenting the hospital for nausea vomiting anxiety chest discomfort patient did have a respiratory distress initially on BiPAP however the patient ended up getting intubated because of worsening respiratory status and is in the ICU. Patient has been extubated as of 08/07/2023 On today's evaluation that is 08/10/2023, the patient denies any fever or any chills, the patient is breathing comfortably on room air and no need for supplemental oxygen , the patient denies chest pain or cough, patient denies abdominal pain, no nausea/vomiting and no diarrhea has been reported Patient did have white count is 9.7, creatinine is 0.42, chest x-ray bibasilar opacities and effusion, sputum with a Sania Objective - Vital Signs Vital signs: Vital Signs Temp 97.6 F 08/10/23 11:40 Pulse 80 08/10/23 12:36 Resp 16 08/10/23 11:40 BP 115/70 08/10/23 11:40 Pulse Ox 98 08/10/23 11:40 FiO2 35 08/07/23 12:00 Intake & Output 08/09/23 08/10/23 08/10/23 18:59 06:59 18:59 Intake Total 1650 425 Output Total 925 Balance 725 425 Weight 90.6 kg Intake: IV 210 Invasive Line 6 10 Piperacillin-Tazobactam 3 200 .375 gm In Sodium Chloride 0.9% 100 ml @ 25 mls/hr IVPB Q8HR [facility] Rx# :[id number] Oral 1440 425 Output: Urine 925 Other: Voiding Method Indwelling Catheter Indwelling Catheter Indwelling Catheter # Voids 2 ABP, PAP, CO, CI - Last Documented Arterial Blood Pressure 108/82 - Exam GENERAL DESCRIPTION: Elderly female lying in bed in no distress RESPIRATORY SYSTEM: Unlabored breathing , decreased breath sounds at bases HEART: S1 S2 regular rate and rhythm ABDOMEN: Soft , no tenderness EXTREMITIES: No edema feet - Labs CBC & Chem 7: 08/10/23 05:24 08/10/23 05:24 Labs: Abnormal Lab Results - Last 24 Hours (Table) 08/09/23 08/09/23 08/10/23 Range/Units 16:50 20:18 02:28 Hgb (11.4-16.0) gm/dL Hct (34.0-46.0) % MCV (80.0-100.0) fL MCH (25.0-35.0) pg RDW (11.5-15.5) % Chloride (98-107) mmol/L Creatinine (0.52-1.04) mg/dL Glucose (74-99) mg/dL POC Glucose (mg/dL) 254 H 273 H 134 H (70-110) mg/dL Total Protein (6.3-8.2) g/dL Albumin (3.5-5.0) g/dL 08/10/23 08/10/23 08/10/23 Range/Units 05:24 05:24 12:08 Hgb 10.4 L (11.4-16.0) gm/dL Hct 33.2 L (34.0-46.0) % MCV 74.8 L (80.0-100.0) fL MCH 23.3 L (25.0-35.0) pg RDW 18.5 H (11.5-15.5) % Chloride 108 H (98-107) mmol/L Creatinine 0.42 L (0.52-1.04) mg/dL Glucose 112 H (74-99) mg/dL POC Glucose (mg/dL) 202 H (70-110) mg/dL Total Protein 5.2 L (6.3-8.2) g/dL Albumin 2.8 L (3.5-5.0) g/dL Microbiology - Last 24 Hours (Table) 08/05/23 04:15 Blood Culture - Final Blood 08/05/23 04:00 Blood Culture - Final Blood 08/08/23 12:13 Catheter Tip Culture - Final Catheter Tip Assessment and Plan (1) Aspiration pneumonia Current Visit: Yes Status: Acute Code(s): J69.0 - PNEUMONITIS DUE TO INHALATION OF FOOD AND VOMIT SNOMED Code(s): 642797410 (2) Allergy to multiple antibiotics Current Visit: Yes Status: Acute Code(s): Z88.1 - ALLERGY STATUS TO OTHER ANTIBIOTIC AGENTS SNOMED Code(s): 144723267 (3) Sepsis Current Visit: Yes Status: Acute Code(s): A41.9 - SEPSIS, UNSPECIFIED [facility] SNOMED Code(s): 05088664 Plan: 1patient with a SIRS/sepsis in this patient with a leukocytosis and did have elevated lactic acid and tachycardia, patient presented hospital with agitation weakness some shortness of breath which is likely multifactorial patient did have some acute infiltrate on chest x-ray and concern for possible aspiration pneumonitis not entirely excluded currently no other obvious focus of infection, patient did have a negative UA abdomin soft on clinical examination no evidence of any joint swelling or redness 2sputum has been obtained and cultures growing Sania likely colonizer 3patient has shown clinical improvement and Zosyn has been discontinued, we will give short course of Augmentin and monitor clinical course closely Dictation was produced using [employer] dictation software. please excuse any gr ammatical, word or spelling errors. Time with Patient: Less than 30
[2023-08-10] MEDS ORDERED: AMOXIC-POT CLAV 875-125MG 1 EACH TAB PO SCH (17:00)
--- NOTE | 2023-08-11 09:52 | P.DS ---
Providers Date of admission: 08/04/23 08:00 Expected date of discharge: 08/10/23 Attending physician: Surinder Rodríguez Consults: 08/04/23 08:00 Consult Physician Stat Consulting Provider: Kaiden Alexander Consult Reason/Comments: HHS, sepsis Do you want consulting provider notified?: Already Contacted 08/04/23 11:15 Consult Physician Routine Consulting Provider: Lamonte Polanco Consult Reason/Comments: sepsis Do you want consulting provider notified?: Yes 08/04/23 11:16 Consult Physician Routine Consulting Provider: Kolton Caraballo Consult Reason/Comments: Chest pain tachycardia Do you want consulting provider notified?: Yes Primary care physician: Surinderasia Rodríguez [facility] Course: Diagnosis on discharge: 1. Acute hypoxic respiratory failure, currently intubated sedated maintained on mechanical ventilation. Extubated 08/07/2023 2. Hyperglycemia possible HHS or DKA. Patient started on insulin drip 3. Sepsis with elevated lactic acid and WBC. 4. Pneumonia. Patient started on IV Zosyn 5. Electrolyte imbalance 6. Tachycardia. Cardiology service is consulted 7. Acute exacerbation of COPD 8. Underlying history of coronary artery disease with previous history of angioplasty and stent and coronary artery bypass graft surgery 9. History of non-compliance with medication 10. History of essential hypertension 11. History of hyperlipidemia 12. History of insulin-dependent diabetes mellitus 13. History of tobacco and drug use Hospital course: This is a 72-year-old female patient who presented to the ER with multiple complaints. Patient is currently sedated on BiPAP all information is obtained from medical record no family at bedside Upon arrival to the ER it appears that patient came very agitated and family returned her back to the ER according to ER reports complaints upon arrival include chest discomfort coughing nausea hyperglycemia anxiety and diaphoresis. Per records patient symptoms have been occurring over the past 2 days with elevated blood sugars. Patient has a past medical history of asthma, coronary artery disease with coronary artery bypass graft surgery, heart failure, COPD, diabetes mellitus, fibromyalgia, hyperlipidemia, hypertension, diabetes mellitus, sleep apnea and ex-smoker. Chest x-ray performed showing cardiomegaly with mild central vascular congestion and new right upper to midlung acute infiltrate and/or edema. Head CT completed showing no acute intracranial hemorrhage or midline shift there is mild diffuse age-related cerebral atrophy and chronic small vessel ischemic changes significant change from prior. Thoracic aorta CT performed showing borderline aneurysmal dilation of the ascending thoracic aorta the remainder daily order is of normal caliber no dissection of intra-mural hematoma seen. Blood sugar upon arrival 831, sodium 123, potassium 5.5, lactic acid 6.8, WBC 23.0. Patient also noted to have significant tachycardia initially elevated at 151. Patient was given multiple medications in ER due to agitation. Patient was placed on BiPAP. Patient was started on IV Zosyn, IV Solu-Medrol and insulin drip. Patient will be admitted to the intensive care unit patient also started on Precedex per critical care services. Will consult infectious disease due to sepsis. Drug screen ordered repeat labs ordered. Will also consult cardiology services due to initial complaints of chest pain and elevated heart rate. On 08/05/2023 patient was seen and examined in the ICU she is currently intubated sedated maintained on mechanical ventilation. Vital exam reveals a temperature of 99.9 pulse 72 respiration 22 blood pressure 118/53 pulse ox 100% on FiO2 of 50% Arterial blood gas reveals a pH of 7.44 pCO2 33 by mouth to 186 white blood count 23.8 hemoglobin 10.4 platelet count 371 sodium 136 potassium 4.2 chloride 108 CO2 22 BUN 20 creatinine 0.67 On 08/06/2023 patient currently intubated and sedated in the intensive care unit. Per nursing staff patient has been weaned off Levophed. Remains on insulin per [facility] protocol. Patient remains on IV Zosyn IV Solu-Medrol. Patient remains on FiO2 of 40%. Critical care infectious disease and cardiology services consulted On 08/07/2023 patient was seen and examined in the ICU, she is alert and oriented 3 in no apparent distress, she was extubated earlier and currently is maintained on oxygen 6 L via nasal cannula, there is no fever or chills no headache or dizziness no chest pain no shortness of breath no cough no nausea or vomiting no abdominal pain no diarrhea and no urinary symptoms. At this time will discontinue insulin drip, will start Levemir 20 units daily, and insulin sliding scale. We'll continue to follow closely. On 08/08/2023 patient remains extubated in the intensive care unit currently on 2 L nasal cannula. Current vitals temp 97.8, , heart rate 84, respiratory rate 18, blood pressure 114/64 with a pulse ox of 98% on 2 L. Patient remains on IV Solu-Medrol and Zosyn. Critical care, infectious disease and cardiology services are all following. Patient is alert and oriented 3. Denies chest pain or shortness of breath. Denies nausea vomiting or diarrhea. Denies any urinary burning or frequency On 08/09/2023 patient remains in ICU , she is alert and oriented 3 currently on room air. Current vital signs 97.8, heart rate 77, respiratory 18, blood pressure 143/71 with pulse ox 98% on room and will consult PT OT and social work services for discharge planning On 08/10/2023 patient was seen and examined she is alert and oriented 3 no apparent distress, there is no fever or chills no headache or dizziness no chest pain no shortness of breath no cough no nausea or vomiting no abdominal pain no diarrhea and no urinary symptoms, patient was cleared by cardiology pulmonary and infectious disease for discharge, she is ambulating well and her home and asking to be discharged. She will be followed in our office within 1 week. Patient Condition at Discharge: Serious Plan - Discharge Summary New Discharge Prescriptions: New Amoxic-Pot Clav 875-125Mg [Augmentin 875-125] 1 tab PO Q12HR 5 Days #10 tab Spironolactone [Aldactone] 25 mg PO DAILY tab Atorvastatin [Lipitor] 40 mg PO DAILY tab Metoprolol Tartrate [Lopressor] 25 mg PO BID tab predniSONE 10 mg PO DIRECTED 12 Days #30 tab Budesonide-Formot 160-4.5 Mcg [Symbicort 160-4.5 Mcg Inhaler] 2 puff INHALATION RT-BID 30 Days #1 each Continue traMADol HCl [Ultram] 50 mg PO TID PRN PRN Reason: Pain traZODone HCL [Desyrel] 50 mg PO HS PRN PRN Reason: Insomnia Aspirin 81 mg PO DAILY tab Clopidogrel [Plavix] 75 mg PO DAILY tab Insulin Glargine/Lixisenatide [Soliqua 100 Unit-33 Mcg/ml Pen] 30 units SQ DAILY 30 Days #1 pen lisinopriL [Zestril] 2.5 mg PO DAILY tab Albuterol Nebulized [Ventolin Nebulized] 2.5 mg INHALATION RT-Q4H PRN PRN Reason: Shortness Of Breath Furosemide [Lasix] 40 mg PO DAILY 30 Days #30 tab Ipratropium-Albuterol Nebulize [Duoneb 0.5 mg-3 mg/3 ml Soln] 3 ml INHALATION RT-QID Discontinued Metoprolol Succinate (ER) [Toprol XL] 25 mg PO DAILY tab predniSONE [Deltasone] See Taper PO DIRECTED Atorvastatin [Lipitor] 80 mg PO DAILY 30 Days #30 tab Discharge Medication List traMADol HCl [Ultram] 50 mg PO TID PRN 11/04/15 [History] traZODone HCL [Desyrel] 50 mg PO HS PRN 06/11/23 [History] Aspirin 81 mg PO DAILY tab 07/01/23 [Rx] Clopidogrel [Plavix] 75 mg PO DAILY tab 07/01/23 [Rx] Insulin Glargine/Lixisenatide [Soliqua 100 Unit-33 Mcg/ml Pen] 30 units SQ DAILY 30 Days #1 pen 07/01/23 [Rx] lisinopriL [Zestril] 2.5 mg PO DAILY tab 07/01/23 [Rx] Albuterol Nebulized [Ventolin Nebulized] 2.5 mg INHALATION RT-Q4H PRN 07/22/23 [History] Ipratropium-Albuterol Nebulize [Duoneb 0.5 mg-3 mg/3 ml Soln] 3 ml INHALATION RT-QID 07/22/23 [History] Furosemide [Lasix] 40 mg PO DAILY 30 Days #30 tab 07/25/23 [Rx] Amoxic-Pot Clav 875-125Mg [Augmentin 875-125] 1 tab PO Q12HR 5 Days #10 tab 08/09/23 [Rx] Atorvastatin [Lipitor] 40 mg PO DAILY tab 08/10/23 [Rx] Budesonide-Formot 160-4.5 Mcg [Symbicort 160-4.5 Mcg Inhaler] 2 puff INHALATION RT-BID 30 Days #1 each 08/10/23 [Rx] Metoprolol Tartrate [Lopressor] 25 mg PO BID tab 08/10/23 [Rx] Spironolactone [Aldactone] 25 mg PO DAILY tab 08/10/23 [Rx] predniSONE 10 mg PO DIRECTED 12 Days #30 tab 08/10/23 [Rx] Follow up Appointment(s)/Referral(s): Jairo Lantigua MD [STAFF PHYSICIAN] - 1 Week (The office will call with a follow up appointment.) Yosi Washington DO [Doctor of Osteopathic Medicine] - 08/22/23 9:45 am [facility], [NON-STAFF] - 1 Week Surinder Rodríguez MD [Primary Care Provider] - 08/15/23 10:00 am Patient Instructions/Handouts: Prednisone (By mouth), Amoxicillin/Clavulanate Potassium (By mouth), Budesonide/Formoterol (By breathing), Diabetic Ketoacidosis (DC), Aspiration Pneumonia (DC), Sepsis (DC), Hyperosmolar Hyperglycemic State (GEN), Bacterial Pneumonia (ED) Discharge Disposition: HOME SELF-CARE
== END 2023-08-10 16:44 | disposition home or self-care (01) | DRG 871 ==
LOC: EC 05:03 → 2SICU 08:00 → 5NMEDONC 08-09 18:16
PROVIDERS: ADMIT Internal Medicine; ATTEND Internal Medicine
PROC: 5A1945Z Respiratory Ventilation, 24-96 Consecutive Hours (ICD-10-PCS; 2023-08-04)
PROC: 0BH18EZ Insertion of Endotracheal Airway into Trachea, Via Natural or Artificial Opening Endoscopic (ICD-10-PCS; 2023-08-04)
PROC: 3E033XZ Introduction of Vasopressor into Peripheral Vein, Percutaneous Approach (ICD-10-PCS; 2023-08-04)
PROC: 5A09357 Assistance with Respiratory Ventilation, Less than 24 Consecutive Hours, Continuous Positive Airway Pressure (ICD-10-PCS; principal; 2023-08-04 16:00)
PROC: 02HV33Z Insertion of Infusion Device into Superior Vena Cava, Percutaneous Approach (ICD-10-PCS; 2023-08-05)
DX: A41.9 Sepsis, unspecified organism (principal); E11.01 Type 2 diabetes mellitus with hyperosmolarity with coma; G93.41 Metabolic encephalopathy; J96.01 Acute respiratory failure with hypoxia; J69.0 Pneumonitis due to inhalation of food and vomit; I50.23 Acute on chronic systolic (congestive) heart failure; J44.0 Chronic obstructive pulmonary disease with (acute) lower respiratory infection; J44.1 Chronic obstructive pulmonary disease with (acute) exacerbation; E87.20 Acidosis, unspecified; I11.0 Hypertensive heart disease with heart failure; G31.9 Degenerative disease of nervous system, unspecified; I71.21 Aneurysm of the ascending aorta, without rupture; Z79.4 Long term (current) use of insulin; R54 Age-related physical debility; E04.1 Nontoxic single thyroid nodule; I34.0 Nonrheumatic mitral (valve) insufficiency; I25.10 Atherosclerotic heart disease of native coronary artery without angina pectoris; E78.5 Hyperlipidemia, unspecified; F41.9 Anxiety disorder, unspecified; T50.906A Underdosing of unspecified drugs, medicaments and biological substances, initial encounter; M79.7 Fibromyalgia; G47.30 Sleep apnea, unspecified; M77.9 Enthesopathy, unspecified; M47.9 Spondylosis, unspecified; I25.5 Ischemic cardiomyopathy; Z95.1 Presence of aortocoronary bypass graft; Z95.5 Presence of coronary angioplasty implant and graft; Z79.899 Other long term (current) drug therapy; Z79.51 Long term (current) use of inhaled steroids; Z79.52 Long term (current) use of systemic steroids; Z79.82 Long term (current) use of aspirin; Z79.02 Long term (current) use of antithrombotics/antiplatelets; Z88.1 Allergy status to other antibiotic agents; Z88.2 Allergy status to sulfonamides; Z87.891 Personal history of nicotine dependence; Z91.148 Patient's other noncompliance with medication regimen for other reason
CPT/HCPCS: 36415; 36600; 70450; 71045; 71275; 74174; 80048; 80051; 80053; 80306; 81001; 81003; 82009; 82150; 82565; 82803; 82805; 82947; 83605; 83690; 83735; 83930; 84100; 84484; 84520; 85025; 85379; 85610; 85730; 87040; 87070; 87205; 93005; 93308; 93970; 94002; 94003; 94640; 94660; 94760; 96365; 96366; 96367; 96368; 96372; 96375; 96376; 99291; 99292

== ENCOUNTER 2023-10-18 23:58 | Inpatient (IN) | payer MEDICARE, OTHER ==
--- NOTE | 2023-10-19 00:06 | ED ---
SOB HPI - General Source: patient, RN notes reviewed <Giuliano Tatum - Last Filed: 10/19/23 00:04> <Marlene Hale - Last Filed: 10/20/23 04:25> - General Stated Complaint: Painful Breathing Time Seen by Provider: 10/19/23 00:05 - History of Present Illness Initial Comments: patient is a 73-year-old female presented ER with a chief complaint of painful breathing. Patient states this going on for a couple of days. Patient also endorses congestion Patient denies any chest pain, fevers, chills, night sweats. (Giuliano Tatum) 73-year-old female with extensive past medical history presented to the ER today reporting some shortness of breath and some pleuritic like chest pain. Patient states she's had a couple days of this with some upper respiratory infection type symptoms. Patient denies any exertional chest pain or palpitations. She has chronic COPD and shortness of breath which is unchanged today. She does not believe she has a history of atrial fibrillation she is not on anticoagulation aside from Plavix. (Marlene Hale) - Related Data Home Medications Medication Instructions Recorded Confirmed traMADol HCl [Ultram] 50 mg PO TID PRN 11/04/15 10/19/23 traZODone HCL [Desyrel] 50 mg PO HS PRN 06/11/23 10/19/23 Albuterol Nebulized [Ventolin 2.5 mg INHALATION RT-Q4H PRN 07/22/23 10/19/23 Nebulized] Ipratropium-Albuterol Nebulize 3 ml INHALATION RT-QID 07/22/23 10/19/23 [Duoneb 0.5 mg-3 mg/3 ml Soln] Metoprolol Succinate (ER) [Toprol 25 mg PO DAILY 10/19/23 10/19/23 Xl] Previous Rx's Medication Instructions Recorded Aspirin 81 mg PO DAILY tab 07/01/23 Clopidogrel [Plavix] 75 mg PO DAILY tab 07/01/23 Insulin Glargine/Lixisenatide 30 units SQ DAILY 30 Days #1 pen 07/01/23 [Soliqua 100 Unit-33 Mcg/ml Pen] lisinopriL [Zestril] 2.5 mg PO DAILY tab 07/01/23 Furosemide [Lasix] 40 mg PO DAILY 30 Days #30 tab 07/25/23 Atorvastatin [Lipitor] 40 mg PO DAILY tab 08/10/23 Budesonide-Formot 160-4.5 Mcg 2 puff INHALATION RT-BID 30 Days 08/10/23 [Symbicort 160-4.5 Mcg Inhaler] #1 each Allergies Allergy/AdvReac Type Severity Reaction Status Date / Time cephalexin Allergy Anaphylaxis Verified 10/19/23 00:21 cephalexin monohydrate Allergy Anaphylaxis Verified 10/19/23 00:21 [From Keflex] Sulfa (Sulfonamide Allergy Rash/Hives Verified 10/19/23 00:21 Antibiotics) Review of Systems ROS Other: All systems not noted in ROS Statement are negative. <Giuliano Tatum - Last Filed: 10/19/23 00:04> ROS Other: All systems not noted in ROS Statement are negative. <Marlene Hale - Last Filed: 10/20/23 04:25> ROS Statement: Those systems with pertinent positive or pertinent negative responses have been documented in the HPI. 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 Poly substance abuse 07/19/21 admitted for Acute delirium History of Any Multi-Drug Resistant Organisms: None Reported Past Surgical History: Cholecystectomy, Coronary Bypass/CABG, Hernia Repair, Orthopedic Surgery, Tonsillectomy, Tubal Ligation Additional Past Surgical History / Comment(s): LEFT KNEE ARTHROSCOPY, BMT AND MYRINGOPLASTY, umbilical hernia repair, CABG 2020 Past Anesthesia/Blood Transfusion Reactions: No Reported Reaction Additional Past Anesthesia/Blood Transfusion Reaction / Comment(s): STATES AFTER LAST EAR SX (11/2013) HAD SORE MUSCLES AND WAS WEAK FOR 3-4 DAYS Past Psychological History: Unable to Obtain Smoking Status: Former smoker Past Alcohol Use History: None Reported Past Drug Use History: None Reported, Marijuana - Past Family History Sister(s) Family Medical History: Cancer Brother(s) Family Medical History: Cancer Additional Family Medical History / Comment(s): brother had heart valve replacement Mother Family Medical History: Chest Pain / Angina, Diabetes Mellitus, Hypertension Father History Unknown: Yes Additional Family Medical History / Comment(s): , "had bad lungs" per patient, was a smoker <Giuliano Tatum - Last Filed: 10/19/23 00:04> General Exam <Giuliano Tatum - Last Filed: 10/19/23 00:04> General appearance: alert, obese Head exam: Present: atraumatic, normocephalic Eye exam: Present: normal appearance ENT exam: Present: mucous membranes dry Respiratory exam: Present: wheezes. Absent: respiratory distress Cardiovascular Exam: Present: tachycardia, irregular rhythm GI/Abdominal exam: Present: soft. Absent: distended Rectal exam: Present: deferred Back exam: Present: normal inspection Neurological exam: Present: alert, oriented X3 Psychiatric exam: Present: normal affect, normal mood Skin exam: Present: warm, dry <Marlene Hale - Last Filed: 10/20/23 04:25> - General Exam Comments Initial Comments: Visual Physical Exam Vital signs reviewed General: Well-appearing, nontoxic, no acute distress. Head: Normocephalic, atraumatic Eyes: PERRLA, EOMI ENT: Airway patent Chest: Nonlabored breathing Skin: No visual rash, normal skin tone Neuro: Alert and oriented 3 Musculoskeletal: No gross abnormalities (Giuliano Tatum) Course Vital Signs 10/19/23 10/19/23 10/19/23 00:18 03:47 04:03 Temperature 98.3 F Pulse Rate 109 H 84 Pulse Rate [ Pulse Oximetery ] Respiratory 20 20 18 Rate Blood Pressure 122/67 91/60 Blood Pressure [Left Arm] O2 Sat by Pulse 97 96 Oximetry 10/19/23 10/19/23 10/19/23 05:00 06:00 09:21 Temperature Pulse Rate 84 83 98 Pulse Rate [ Pulse Oximetery ] Respiratory 18 22 18 Rate Blood Pressure 80/62 97/62 96/58 Blood Pressure [Left Arm] O2 Sat by Pulse 96 93 L Oximetry 10/19/23 10/19/23 11:40 20:00 Temperature 97.9 F Pulse Rate 95 Pulse Rate [ 97 Pulse Oximetery ] Respiratory 18 18 Rate Blood Pressure 101/69 Blood Pressure 150/116 [Left Arm] O2 Sat by Pulse 97 96 Oximetry Medical Decision Making <Giuliano Tatum - Last Filed: 10/19/23 00:04> - Lab Data Result diagrams: 10/19/23 05:40 10/19/23 05:40 <Marlene Hale - Last Filed: 10/20/23 04:25> - Medical Decision Making I performed the quick note portion of the exam. Electronically signed by Giuliano Tatum PA-C (Giuliano Tatum) Was pt. sent in by a medical professional or institution (BRYN Cerda, CYBER INCIDENT ANALYST, urgent care, hospital, or alf...) When possible be specific @ -No Did you speak to anyone other than the patient for history (EMS, parent, family, police, friend...)? What history was obtained from this source @ -No Did you review nursing and triage notes (agree or disagree)? Why? @ -I reviewed and agree with nursing and triage notes Were old charts reviewed (outside hosp., previous admission, EMS record, old EKG, old radiological studies, urgent care reports/EKG's, alf records)? Report findings @ -No old charts were reviewed Differential Diagnosis (chest pain, altered mental status, abdominal pain women, abdominal pain men, vaginal bleeding, weakness, fever, dyspnea, syncope, headache, dizziness, GI bleed, back pain, seizure, CVA, palpatations, mental health)? @ -not applicable EKG interpreted by me (3pts min.). @ -As above X-rays interpreted by me (1pt min.). @ -No pneumonia CT interpreted by me (1pt min.). @ -None done U/S interpreted by me (1pt. min.). @ -None done What testing was considered but not performed or refused? (CT, X-rays, U/S, labs)? Why? @ -None What meds were considered but not given or refused? Why? @ -None Did you discuss the management of the patient with other professionals (professionals i.e. , BRYN, CYBER INCIDENT ANALYST, lab, RT, psych nurse, social media job titles, ocean fishing guide, teacher, ski patrol officer, skilled nursing case manager)? Give summary @ Admitting team Was smoking cessation discussed for >3mins.? @ -No Was critical care preformed (if so, how long)? @ -No Were there social determinants of health that impacted care today? How? (Homelessness, low income, unemployed, alcoholism, drug addiction, transportation, low edu. Level, literacy, decrease access to med. care, usp, rehab)? @ -No Was there de-escalation of care discussed even if they declined (Discuss DNR or withdrawal of care, Hospice)? DNR status @ -No What co-morbidities impacted this encounter? (DM, HTN, Smoking, COPD, CAD, Cancer, CVA, ARF, Chemo, Hep., AIDS, mental health diagnosis, sleep apnea, morbid obesity)? @ -None Was patient admitted / discharged? Hospital course, mention meds given and route, prescriptions, significant lab abnormalities, going to OR and other pertinent info. @ -Admitted PAtient with SOB and elevated troponin - heparin initiated, admit with cardiology consult Undiagnosed new problem with uncertain prognosis? @ -No Drug Therapy requiring intensive monitoring for toxicity (Heparin, Nitro, Insulin, Cardizem)? @ -Yes - Heparin Were any procedures done? @ -No Diagnosis/symptom? @ -NSTEMI Acute, or Chronic, or Acute on Chronic? @ Acute Uncomplicated (without systemic symptoms) or Complicated (systemic symptoms)? @ -default Side effects of treatment? @ -No Exacerbation, Progression, or Severe Exacerbation? @ -No Poses a threat to life or bodily function? How? (Chest pain, USA, NM, pneumonia, PE, COPD, DKA, ARF, appy, cholecystitis, CVA, Diverticulitis, Homicidal, Suicidal, threat to staff... and all critical care pts) @ -No (Marlene Hale) - Lab Data Lab Results 10/19/23 10/19/23 10/19/23 Range/Units 00:23 05:40 05:40 WBC 9.1 (3.8-10.6) k/uL RBC 4.10 (3.80-5.40) m/uL Hgb 8.2 L (11.4-16.0) gm/dL Hct 27.3 L (34.0-46.0) % MCV 66.8 L (80.0-100.0) fL MCH 19.9 L (25.0-35.0) pg MCHC 29.8 L (31.0-37.0) g/dL RDW 16.2 H (11.5-15.5) % Plt Count 308 (150-450) k/uL MPV 8.6 Neutrophils % 69 % Lymphocytes % 21 % Monocytes % 4 % Eosinophils % 5 % Basophils % 0 % Neutrophils # 6.3 (1.3-7.7) k/uL Lymphocytes # 1.9 (1.0-4.8) k/uL Monocytes # 0.4 (0-1.0) k/uL Eosinophils # 0.4 (0-0.7) k/uL Basophils # 0.0 (0-0.2) k/uL Hypochromasia Marked Poikilocytosis Slight Anisocytosis Slight Microcytosis Marked PT 10.8 (10.0-12.5) sec INR 1.0 (<1.2) APTT 26.3 (22.0-30.0) sec Sodium (137-145) mmol/L Potassium (3.5-5.1) mmol/L Chloride (98-107) mmol/L Carbon Dioxide (22-30) mmol/L Anion Gap mmol/L BUN (7-17) mg/dL Creatinine (0.52-1.04) mg/dL Est GFR (CKD-EPI)AfAm (>60 ml/min/1.73 sqM) Est GFR (CKD-EPI)NonAf (>60 ml/min/1.73 sqM) Glucose (74-99) mg/dL Calcium (8.4-10.2) mg/dL Magnesium (1.6-2.3) mg/dL Total Bilirubin (0.2-1.3) mg/dL AST (14-36) U/L ALT (4-34) U/L Alkaline Phosphatase (38-126) U/L Troponin I (0.000-0.034) ng/mL Total Protein (6.3-8.2) g/dL Albumin (3.5-5.0) g/dL TSH (0.465-4.680) mIU/L Influenza Type A (PCR) Not Detected (Not Detectd) Influenza Type B (PCR) Not Detected (Not Detectd) RSV (PCR) Not Detected (Not Detectd) SARS-CoV-2 (PCR) Not Detected (Not Detectd) 10/19/23 10/19/23 Range/Units 05:40 05:40 WBC (3.8-10.6) k/uL RBC (3.80-5.40) m/uL Hgb (11.4-16.0) gm/dL Hct (34.0-46.0) % MCV (80.0-100.0) fL MCH (25.0-35.0) pg MCHC (31.0-37.0) g/dL RDW (11.5-15.5) % Plt Count (150-450) k/uL MPV Neutrophils % % Lymphocytes % % Monocytes % % Eosinophils % % Basophils % % Neutrophils # (1.3-7.7) k/uL Lymphocytes # (1.0-4.8) k/uL Monocytes # (0-1.0) k/uL Eosinophils # (0-0.7) k/uL Basophils # (0-0.2) k/uL Hypochromasia Poikilocytosis Anisocytosis Microcytosis PT (10.0-12.5) sec INR (<1.2) APTT (22.0-30.0) sec Sodium 135 L (137-145) mmol/L Potassium 3.5 (3.5-5.1) mmol/L Chloride 98 (98-107) mmol/L Carbon Dioxide 26 (22-30) mmol/L Anion Gap 11 mmol/L BUN 23 H (7-17) mg/dL Creatinine 0.71 (0.52-1.04) mg/dL Est GFR (CKD-EPI)AfAm >90 (>60 ml/min/1.73 sqM) Est GFR (CKD-EPI)NonAf 85 (>60 ml/min/1.73 sqM) Glucose 124 H (74-99) mg/dL Calcium 8.3 L (8.4-10.2) mg/dL Magnesium 1.9 (1.6-2.3) mg/dL Total Bilirubin 0.4 (0.2-1.3) mg/dL AST 36 (14-36) U/L ALT 37 H (4-34) U/L Alkaline Phosphatase 117 (38-126) U/L Troponin I 0.112 H* (0.000-0.034) ng/mL Total Protein 6.2 L (6.3-8.2) g/dL Albumin 3.5 (3.5-5.0) g/dL TSH 1.030 (0.465-4.680) mIU/L Influenza Type A (PCR) (Not Detectd) Influenza Type B (PCR) (Not Detectd) RSV (PCR) (Not Detectd) SARS-CoV-2 (PCR) (Not Detectd) - EKG Data EKG Comments: Age interpreted by me, EKG obtained 5:49 AM, rate is 84 rhythm is sinus with PVC noted, a leftward axis with a left bundle-branch block, ME 124 QRS was [address] elevations or depressions no evidence of ischemia or infarction. LBB NOT new (Marlene Hale) Disposition <Giuliano Tatum - Last Filed: 10/19/23 00:04> Is patient prescribed a controlled substance at d/c from ED?: No <Marlene Hale - Last Filed: 10/20/23 04:25> Clinical Impression: NSTEMI (non-ST elevated myocardial infarction), Tachycardia Disposition: ADMITTED IP TO THIS HOSP Condition: Serious
--- NOTE | 2023-10-19 01:09 | XR ---
EXAM: XR Chest, 2 Views CLINICAL HISTORY: cough TECHNIQUE: Frontal and lateral views of the chest. COMPARISON: Portable chest single view 08/08/2023 FINDINGS: Lungs: Improved lung expansion without focal airspace consolidation. The pulmonary vasculature demonstrates no significant radiographic abnormality. Pleural space: Unremarkable. No pneumothorax. No large pleural effusion. Heart: Borderline cardiomegaly. Postsurgical changes consistent with left atrial closure device and prior CABG, stable. Mediastinum: The mediastinal contours are unremarkable. The trachea is midline. Bones/joints: Unremarkable. No acute fracture. IMPRESSION: No focal consolidation or acute cardiopulmonary process identified.
[2023-10-19] MEDS ORDERED: SODIUM CHLORIDE 0.9% 1,000 ML IV ONE (05:51)
[2023-10-19 06:23] LABS: Anisocytosis Slight; Basophils % (A) 0 %; Eosinophils # (A) 0.4 k/uL (0-0.7); Eosinophils % (A) 5 %; HCT 27.3 % (34.0-46.0); HGB 8.2 gm/dL (11.4-16.0); Hypochromasia Marked; Lymphocytes # (A) 1.9 k/uL (1.0-4.8); Lymphocytes % (A) 21 %; MCH 19.9 pg (25.0-35.0); MCHC 29.8 g/dL (31.0-37.0); MCV 66.8 fL (80.0-100.0); Mean Platelet Volume 8.6; Microcytosis Marked; Monocytes # (A) 0.4 k/uL (0-1.0); Monocytes % (A) 4 %; Neutrophils # (A) 6.3 k/uL (1.3-7.7); Neutrophils % (A) 69 %; Platelet Count 308 k/uL (150-450); Poikilocytosis Slight; RDW 16.2 % (11.5-15.5); WBC 9.1 k/uL (3.8-10.6)
[2023-10-19 06:43] LABS: Partial Thromboplastin Time 26.3 sec (22.0-30.0); Prothrombin Time 10.8 sec (10.0-12.5)
[2023-10-19 06:44] LABS: ALT 37 U/L (4-34); AST 36 U/L (14-36); African American GFR (CKD) >90 (>60 ml/min/1.73 sqM); Albumin 3.5 g/dL (3.5-5.0); Alkaline Phosphatase 117 U/L (38-126); Anion Gap 11 mmol/L; Blood Urea Nitrogen 23 mg/dL (7-17); Calcium 8.3 mg/dL (8.4-10.2); Carbon Dioxide 26 mmol/L (22-30); Chloride 98 mmol/L (98-107); Glucose 124 mg/dL (74-99); Magnesium 1.9 mg/dL (1.6-2.3); Non-African American GFR(CKD) 85 (>60 ml/min/1.73 sqM); Potassium 3.5 mmol/L (3.5-5.1); Sodium 135 mmol/L (137-145); Total Bilirubin 0.4 mg/dL (0.2-1.3); Total Protein 6.2 g/dL (6.3-8.2)
[2023-10-19] MEDS ORDERED: HEPARIN SODIUM 1,000 UN/ML (10ML VL) IV ONE (07:30)
[2023-10-19] MEDS ORDERED: NITROGLYCERIN SL TABS 0.4 MG TAB SUBLINGUAL PRN ×2 (07:34→11:41)
[2023-10-19] MEDS: HEPARIN SOD,PORK IN 0.45% NACL 25,000 UNIT in 0.45% NACL 1 250ML.BAG IV SCH (08:08)
--- NOTE | 2023-10-19 09:23 | P.HPIM ---
History of Present Illness This is a pleasant 73 years old female with multiple medical problems including Asthma, Coronary Artery Disease (CAD), Heart Failure, COPD, Diabetes Mellitus, Fibromyalgia, Hyperlipidemia, Hypertension,Osteoarthritis (OA), Sleep Apnea/CPAP/BIPAP Back pain dyspnea. Degenerative disc disease she status post CABG Patient presents because of chest pain 8/10 Central nonradiating sharp with no prostate and or relieving factors. She denies smoking or alcohol but she smokes marijuana. She denies any change in her urine or bowel habits. No headache dizziness weakness or numbness. Review of Systems Review of systems CONSTITUTIONAL: No fever, no malaise, no fatigue. HEENT: No recent visual problems or hearing problems. Denied any sore throat. CARDIOVASCULAR: No orthopnea, PND, no palpitations, no syncope. PULMONARY: No shortness of breath, no cough, no hemoptysis. GASTROINTESTINAL: No diarrhea, no nausea, no vomiting, no abdominal pain. Normoactive bowel sounds. NEUROLOGICAL: No headaches, no weakness, no numbness. HEMATOLOGICAL: Denies any bleeding or petechiae. GENITOURINARY: Denies any burning micturition, frequency, or urgency. MUSCULOSKELETAL/RHEUMATOLOGICAL: Denies any joint pain, swelling, or any muscle pain. ENDOCRINE: Denies any polyuria or polydipsia. 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 Poly substance abuse 07/19/21 admitted for Acute delirium History of Any Multi-Drug Resistant Organisms: None Reported Past Surgical History: Cholecystectomy, Coronary Bypass/CABG, Hernia Repair, Orthopedic Surgery, Tonsillectomy, Tubal Ligation Additional Past Surgical History / Comment(s): LEFT KNEE ARTHROSCOPY, BMT AND MYRINGOPLASTY, umbilical hernia repair, CABG 2020 Past Anesthesia/Blood Transfusion Reactions: No Reported Reaction Additional Past Anesthesia/Blood Transfusion Reaction / Comment(s): STATES AFTER LAST EAR SX (11/2013) HAD SORE MUSCLES AND WAS WEAK FOR 3-4 DAYS Past Psychological History: No Psychological Hx Reported Smoking Status: Former smoker Past Alcohol Use History: None Reported Past Drug Use History: Marijuana - Past Family History Sister(s) Family Medical History: Cancer Brother(s) Family Medical History: Cancer Additional Family Medical History / Comment(s): brother had heart valve replacement Mother Family Medical History: Chest Pain / Angina, Diabetes Mellitus, Hypertension Father History Unknown: Yes Additional Family Medical History / Comment(s): , "had bad lungs" per patient, was a smoker Medications and Allergies Home Medications Medication Instructions Recorded Confirmed Type traMADol HCl [Ultram] 50 mg PO TID PRN 11/04/15 08/04/23 History traZODone HCL [Desyrel] 50 mg PO HS PRN 06/11/23 08/04/23 History Aspirin 81 mg PO DAILY tab 07/01/23 08/04/23 Rx Clopidogrel [Plavix] 75 mg PO DAILY tab 07/01/23 08/04/23 Rx Insulin Glargine/Lixisenatide 30 units SQ DAILY 30 Days #1 pen 07/01/23 08/04/23 Rx [Soliqua 100 Unit-33 Mcg/ml Pen] lisinopriL [Zestril] 2.5 mg PO DAILY tab 07/01/23 08/04/23 Rx Albuterol Nebulized [Ventolin 2.5 mg INHALATION RT-Q4H PRN 07/22/23 08/04/23 History Nebulized] Ipratropium-Albuterol Nebulize 3 ml INHALATION RT-QID 07/22/23 08/04/23 History [Duoneb 0.5 mg-3 mg/3 ml Soln] Furosemide [Lasix] 40 mg PO DAILY 30 Days #30 tab 07/25/23 08/04/23 Rx Amoxic-Pot Clav 875-125Mg 1 tab PO Q12HR 5 Days #10 tab 08/09/23 Rx [Augmentin 875-125] Atorvastatin [Lipitor] 40 mg PO DAILY tab 08/10/23 Rx Budesonide-Formot 160-4.5 Mcg 2 puff INHALATION RT-BID 30 Days 08/10/23 Rx [Symbicort 160-4.5 Mcg Inhaler] #1 each Metoprolol Tartrate [Lopressor] 25 mg PO BID tab 08/10/23 Rx Spironolactone [Aldactone] 25 mg PO DAILY tab 08/10/23 Rx predniSONE 10 mg PO DIRECTED 12 Days #30 08/10/23 Rx tab Allergies Allergy/AdvReac Type Severity Reaction Status Date / Time cephalexin Allergy Anaphylaxis Verified 10/19/23 00:21 cephalexin monohydrate Allergy Anaphylaxis Verified 10/19/23 00:21 [From Keflex] Sulfa (Sulfonamide Allergy Rash/Hives Verified 10/19/23 00:21 Antibiotics) Physical Exam Vitals: Vital Signs Temp Pulse Resp BP Pulse Ox 10/19/23 06:00 83 22 97/62 10/19/23 05:00 84 18 80/62 96 10/19/23 04:03 84 18 91/60 96 10/19/23 03:47 20 10/19/23 00:18 98.3 F 109 H 20 122/67 97 Intake and Output 10/18/23 10/19/23 10/19/23 22:59 06:59 14:59 Other: Weight 86.183 kg GENERAL: The patient is alert and oriented x3, not in any acute distress. Well developed, well nourished. HEENT: Pupils are round and equally reacting to light. EOMI. No scleral icterus. No conjunctival pallor. Normocephalic, atraumatic. No pharyngeal erythema. No thyromegaly. CARDIOVASCULAR: S1 and S2 present. No murmurs, rubs, or gallops. PULMONARY: Chest is clear to auscultation, no wheezing , no crackles. ABDOMEN: Soft, nontender, nondistended, normoactive bowel sounds. No palpable organomegaly. MUSCULOSKELETAL: No joint swelling or deformity. EXTREMITIES: No cyanosis, clubbing, or pedal edema. NEUROLOGICAL: Gross neurological examination did not reveal any focal deficits. SKIN: No rashes. no petechiae. Results CBC & Chem 7: 10/19/23 05:40 10/19/23 05:40 Labs: Abnormal Lab Results - Last 24 Hours (Table) 10/19/23 10/19/23 10/19/23 Range/Units 05:40 05:40 05:40 Hgb 8.2 L (11.4-16.0) gm/dL Hct 27.3 L (34.0-46.0) % MCV 66.8 L (80.0-100.0) fL MCH 19.9 L (25.0-35.0) pg MCHC 29.8 L (31.0-37.0) g/dL RDW 16.2 H (11.5-15.5) % Sodium 135 L (137-145) mmol/L BUN 23 H (7-17) mg/dL Glucose 124 H (74-99) mg/dL Calcium 8.3 L (8.4-10.2) mg/dL ALT 37 H (4-34) U/L Troponin I 0.112 H* (0.000-0.034) ng/mL Total Protein 6.2 L (6.3-8.2) g/dL Assessment and Plan Assessment: Chest pain, rule out cardiac causes Coronary artery disease status post CABG Diabetes mellitus Hypertension Hyperlipidemia History of osteoarthritis Hypothyroidism Sleep apnea History of fibromyalgia Plan: Continue with heparin drip Continue with aspirin Cardiology consult Labs and medication were reviewed.. Continue same treatment. Continue with symptomatic treatment. Resume home medication. Monitor lytes and vitals. DVT and GI prophylaxis. Further recommendations depends on the clinical course of the patient DVT prophylaxis: heparin GI Prophylaxis: Pepcid Prognosis is guarded
--- NOTE | 2023-10-19 10:07 | CONS ---
CONSULTATION CHIEF COMPLAINT: Shortness of breath. HISTORY OF PRESENT ILLNESS: Mark is a 73-year-old lady with history of coronary artery disease, status post prior bypass surgery, who presented to hospital complaining of shortness of breath and ruled in for myocardial infarction with mild troponin elevation. The patient had stenting of the PDA in 2022. On this admission, her white cell count is normal. Hemoglobin is low at 8.2, and the first set of troponin is slightly elevated at 0.1. This is similar to the troponins on her last admission. She has tested negative for RSV and coronavirus. Currently on IV heparin and appears stable at rest. She is not short of breath and does not have any chest pain, and her EKG shows sinus rhythm with left bundle-branch block. The patient has known coronary artery disease and underwent cardiac catheterization by me in November of 2022 in the setting of an acute non-ST- segment elevation MS. She has severe three-vessel coronary artery disease with patent SIMPSON to LAD and ramus intermedius and progressively worsened lesion within the PDA that was stented. PAST MEDICAL HISTORY: Significant for coronary artery disease, status post bypass surgery; COPD; hypertension. CURRENT MEDICATIONS: Include: 1. Ultram. 2. Desyrel. 3. Prednisone. 4. Zestril. 5. Aldactone. 6. Lopressor 25 b.i.d. 7. DuoNeb. 8. Lasix 40 mg daily. 9. Plavix. 10.Symbicort. 11.Lipitor. 12.Augmentin. ALLERGIES: She is allergic to Keflex, sulfa. FAMILY HISTORY: Negative for premature coronary artery disease. SOCIAL HISTORY: Negative for smoking, EtOH abuse, or drug abuse. She smokes marijuana. REVIEW OF SYSTEMS: review of systems has been performed, and pertinents are as documented. PHYSICAL EXAMINATION: GENERAL: She is comfortable at rest. VITAL SIGNS: Heart rate is 83 beats per minute, blood pressure is 97/60, respiratory rate is 18. CHEST: Reveals good air entry bilaterally. HEART: Reveals first and second heart sounds and ejection systolic murmur in the aortic area. ABDOMEN: Soft. EXTREMITIES: Did not reveal any edema. Peripheral pulses are palpable. ASSESSMENT AND PLAN: Acute uvr-ON-tamdizk elevation myocardial infarction in a patient with known coronary artery disease, status post prior bypass surgery. Continue the patient on IV heparin, aspirin. Resume the Plavix and the statin. I am going to review her outpatient records and decide on further course of action. MMODL / IJN: [id number] /
[2023-10-19] MEDS ORDERED: ALPRAZolam 0.25 MG TAB PO PRN (11:41)
[2023-10-19] MEDS ORDERED: ALPRAZolam 0.5 MG TAB PO PRN (11:41)
[2023-10-19] MEDS: HEPARIN SODIUM 1,000 UN/ML (10ML VL) IV PRN (16:00)
[2023-10-19 20:48] LABS: Glucose,Whole Blood 168 mg/dL (70-110)
[2023-10-19] MEDS: FAMOTIDINE 20 MG/2 ML VIAL IV SCH (21:39)
[2023-10-19] MEDS: SODIUM CHLORIDE 0.9% 1,000 ML in EMPTY BAG 1 BAG IV SCH (21:40)
[2023-10-20] MEDS ORDERED: ASPIRIN 325 MG TAB PO ONE (05:00)
[2023-10-20] MEDS ORDERED: ATORVASTATIN 80 MG TAB PO ONE (05:00)
[2023-10-20] MEDS: HEPARIN SOD,PORK IN 0.45% NACL 25,000 UNIT in 0.45% NACL 1 250ML.BAG IV SCH (06:09)
[2023-10-20] MEDS: ASPIRIN 81 MG PO SCH (06:10)
[2023-10-20] MEDS: ATORVASTATIN 40 MG TAB PO SCH (06:10)
[2023-10-20 06:18] LABS: Glucose,Whole Blood 170 mg/dL (70-110)
[2023-10-20] MEDS: SODIUM CHLORIDE 0.9% 1,000 ML in EMPTY BAG 1 BAG IV SCH (06:56)
[2023-10-20] MEDS: FAMOTIDINE 20 MG/2 ML VIAL IV SCH ×2 (06:56→20:10)
[2023-10-20] MEDS: CLOPIDOGREL 75 MG TAB PO SCH (06:56)
[2023-10-20] MEDS: METOPROLOL SUCCINATE (ER) 25 MG TAB.ER.24H PO SCH (06:56)
[2023-10-20] MEDS: FUROSEMIDE 40 MG TAB PO SCH (06:56)
[2023-10-20] MEDS ORDERED: HEPARIN SODIUM,PORCINE 10,000 UNIT in SODIUM CHLORIDE 0.9% 1,000 ML IRRIGATION PRN (07:00)
[2023-10-20] MEDS ORDERED: HEPARIN SODIUM,PORCINE (1 ML) 2,500 UNIT in SODIUM CHLORIDE 0.9% 250 ML IRRIGATION PRN (07:00)
[2023-10-20 07:10] LABS: Anisocytosis Slight; Basophils % (A) 1 %; Eosinophils # (A) 0.2 k/uL (0-0.7); Eosinophils % (A) 4 %; HCT 29.8 % (34.0-46.0); HGB 8.7 gm/dL (11.4-16.0); Hypochromasia Marked; Lymphocytes # (A) 1.4 k/uL (1.0-4.8); Lymphocytes % (A) 24 %; MCHC 29.3 g/dL (31.0-37.0); MCV 68.3 fL (80.0-100.0); Mean Platelet Volume 7.4; Microcytosis Marked; Monocytes # (A) 0.3 k/uL (0-1.0); Monocytes % (A) 6 %; Neutrophils # (A) 3.8 k/uL (1.3-7.7); Neutrophils % (A) 64 %; Platelet Count 332 k/uL (150-450); Poikilocytosis Slight; RBC 4.36 m/uL (3.80-5.40); RDW 16.2 % (11.5-15.5); WBC 5.9 k/uL (3.8-10.6)
[2023-10-20 07:22] LABS: African American GFR (CKD) >90 (>60 ml/min/1.73 sqM); Anion Gap 12 mmol/L; Blood Urea Nitrogen 15 mg/dL (7-17); Calcium 8.7 mg/dL (8.4-10.2); Carbon Dioxide 22 mmol/L (22-30); Chloride 105 mmol/L (98-107); Glucose 163 mg/dL (74-99); Non-African American GFR(CKD) >90 (>60 ml/min/1.73 sqM); Sodium 139 mmol/L (137-145)
[2023-10-20] MEDS ORDERED: ASPIRIN 325 MG TAB PO SCH (09:00)
--- NOTE | 2023-10-20 11:33 | CA ---
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 67 - 155 / 56 - 104 cm??? LV Systolic Volume MOD BP 98.8 cm??? 22 - 58 / 19 - 49 cm??? LV Ejection Fraction MOD BP 35.3 % >= 55 % LV Cardiac Index MOD BP 2226.8 cm???/min???m??? LV Diastolic Volume MOD 4C 145.9 cm??? LV Systolic Volume MOD 4C 111.4 cm??? LV Ejection Fraction MOD 4C 23.6 % LV Cardiac Index MOD 4C 1426.5 cm???/min???m??? LV Diastolic Length 4C 8.2 cm LV Systolic Length 4C 7.4 cm LV Diastolic Volume MOD 2C 158.0 cm??? LV Systolic Volume MOD 2C 85.5 cm??? LV Ejection Fraction MOD 2C 45.9 % LV Cardiac Index MOD 2C 3003.2 cm???/min???m??? LV Diastolic Length 2C 8.0 cm LV Systolic Length 2C 7.1 cm Ascending Aorta Diameter 3.7 cm M-MODE Aortic Root Diameter MM 2.5 cm LA Systolic Diameter MM 5.1 cm LA Ao Ratio MM 2.1 AV Cusp Separation MM 1.9 cm DOPPLER AV Peak Velocity 169.3 cm/s AV Peak Gradient 11.5 mmHg AV Mean Velocity 115.3 cm/s AV Mean Gradient 6.1 mmHg AV Velocity Time Integral 34.1 cm LVOT Peak Velocity 98.4 cm/s LVOT Peak Gradient 3.9 mmHg LVOT Velocity Time Integral 22.2 cm LVOT Stroke Volume 68.1 cm??? LVOT Stroke Volume Index 36.4 ml/m??? LVOT Cardiac Index 2820.6 cm???/min???m??? AV Area Cont Eq vti 2.0 cm??? AV Area Cont Eq pk 1.8 cm??? MR Peak Velocity 379.2 cm/s MR Peak Gradient 57.5 mmHg Mitral E Point Velocity 120.2 cm/s Mitral A Point Velocity 108.3 cm/s Mitral E to A Ratio 1.1 MV Deceleration Time 243.0 ms LV E' Lateral Velocity 6.0 cm/s Mitral E to LV E' Lateral Ratio 20.0 LV E' Septal Velocity 4.3 cm/s Mitral E to LV E' Septal Ratio 27.8 TR Peak Velocity 243.8 cm/s TR Peak Gradient 23.8 mmHg Right Atrial Pressure 8.0 mmHg Pulmonary Artery Systolic Pressu 31.8 mmHg Right Ventricular Systolic Press 31.8 mmHg FINDINGS Left Ventricle Mildly increased left ventricular wall thickness. Mildly increased left ventricular diastolic diameter. Severely increased left ventricular diastolic volume. Severely increased left ventricular systolic volume. Moderately decreased left ventricular ejection fraction. Left ventricular ejection fraction is estimated at 30-35%. Right Ventricle Mild right ventricular dilatation. Mild pulmonary hypertension. Right Atrium Normal right atrial size. Left Atrium Severe left atrial dilatation. Mitral Valve Mitral valve thickened. Moderate mitral annular calcification. Moderate mitral regurgitation. Aortic Valve Aortic valve sclerosis. Moderate AV calcification. Mild aortic regurgitation. Tricuspid Valve Structurally normal tricuspid valve. [id number] tricuspid regurgitation. Pulmonic Valve Structurally normal pulmonic valve. Trace pulmonic regurgitation. Pericardium No pericardial effusion. Aorta Normal size aortic root and upper normal proximal ascending aorta. CONCLUSIONS Mildly increased left ventricular wall thickness Left ventricular ejection fraction 30-35% Moderate mitral regurgitation Moderate aortic valve calcification without significant aortic stenosis Mild aortic regurgitation Mild to moderate tricuspid regurgitation RVSP 32 Previewed by: Dr. Wallace Grewal DO (Electronically Signed) Final Date: 20 October 2023 11:32
[2023-10-20 11:43] LABS: Glucose,Whole Blood 142 mg/dL (70-110)
--- NOTE | 2023-10-20 12:47 | P.PN ---
Subjective This is a pleasant 73 years old female with multiple medical problems including Asthma, Coronary Artery Disease (CAD), Heart Failure, COPD, Diabetes Mellitus, Fibromyalgia, Hyperlipidemia, Hypertension,Osteoarthritis (OA), Sleep Apnea/CPAP/BIPAP Back pain dyspnea. Degenerative disc disease she status post CABG Patient presents because of chest pain 8/10 Central nonradiating sharp with no prostate and or relieving factors. She denies smoking or alcohol but she smokes marijuana. She denies any change in her urine or bowel habits. No headache dizziness weakness or numbness. 10/20/2023 Patient denies chest pain today. No other new complaints. Sure is improved 120/69. Heart rate 103. She remains on heparin drip, aspirin and Plavix, plan for cardiac cath today. Echocardiogram showed ejection fraction of 30-35% with moderate mitral regurgitation Objective - Vital Signs Vital signs: Vital Signs Temp 98.4 F 10/20/23 08:00 Pulse 103 H 10/20/23 08:00 Resp 16 10/20/23 08:00 BP 120/69 10/20/23 08:00 Pulse Ox 98 10/20/23 08:00 FiO2 Intake & Output 10/19/23 10/20/23 10/20/23 18:59 06:59 18:59 Intake Total 77.643 172.357 26.466 Balance 77.643 172.357 26.466 Weight 86.183 kg Intake: Intake, IV Titration 77.643 172.357 26.466 Amount Heparin Sod,Pork in 0.45% 77.643 172.357 26.466 NaCl 25,000 unit In 0.45 % NaCl 1 250ml.bag @ 11.6 UNITS/KG/HR 9.997 mls/hr IV .Q24H [facility] Rx#: [id number] Other: Voiding Method Toilet Toilet # Voids 2 - Exam GENERAL: The patient is alert and oriented x3, not in any acute distress. Well developed, well nourished. HEENT: Pupils are round and equally reacting to light. EOMI. No scleral icterus. No conjunctival pallor. Normocephalic, atraumatic. No pharyngeal erythema. No thyromegaly. CARDIOVASCULAR: S1 and S2 present. No murmurs, rubs, or gallops. PULMONARY: Chest is clear to auscultation, no wheezing , no crackles. ABDOMEN: Soft, nontender, nondistended, normoactive bowel sounds. No palpable organomegaly. MUSCULOSKELETAL: No joint swelling or deformity. EXTREMITIES: No cyanosis, clubbing, or pedal edema. NEUROLOGICAL: Gross neurological examination did not reveal any focal deficits. SKIN: No rashes. no petechiae. - Labs CBC & Chem 7: 10/20/23 06:09 10/20/23 06:09 Labs: Abnormal Lab Results - Last 24 Hours (Table) 10/19/23 10/19/23 10/19/23 Range/Units 12:54 20:46 21:52 Hgb (11.4-16.0) gm/dL Hct (34.0-46.0) % MCV (80.0-100.0) fL MCH (25.0-35.0) pg MCHC (31.0-37.0) g/dL RDW (11.5-15.5) % APTT 34.3 H 41.6 H (22.0-30.0) sec Glucose (74-99) mg/dL POC Glucose (mg/dL) 168 H (70-110) mg/dL 10/20/23 10/20/23 10/20/23 Range/Units 06:09 06:09 06:09 Hgb 8.7 L (11.4-16.0) gm/dL Hct 29.8 L (34.0-46.0) % MCV 68.3 L (80.0-100.0) fL MCH 20.0 L (25.0-35.0) pg MCHC 29.3 L (31.0-37.0) g/dL RDW 16.2 H (11.5-15.5) % APTT 37.1 H (22.0-30.0) sec Glucose 163 H (74-99) mg/dL POC Glucose (mg/dL) (70-110) mg/dL 10/20/23 10/20/23 Range/Units 06:17 11:41 Hgb (11.4-16.0) gm/dL Hct (34.0-46.0) % MCV (80.0-100.0) fL MCH (25.0-35.0) pg MCHC (31.0-37.0) g/dL RDW (11.5-15.5) % APTT (22.0-30.0) sec Glucose (74-99) mg/dL POC Glucose (mg/dL) 170 H 142 H (70-110) mg/dL Assessment and Plan Assessment: Chest pain, rule out cardiac causes Cardiomyopathy with ejection fraction 30-35% Moderate mitral regurgitation Coronary artery disease status post CABG Diabetes mellitus Hypertension Hyperlipidemia History of osteoarthritis Hypothyroidism Sleep apnea History of fibromyalgia Plan: Continue with heparin drip Continue with aspirin Cardiology consult Plan for cardiac cath Labs and medication were reviewed.. Continue same treatment. Continue with symptomatic treatment. Resume home medication. Monitor lytes and vitals. DVT and GI prophylaxis. Further recommendations depends on the clinical course of the patient DVT prophylaxis: heparin GI Prophylaxis: Pepcid Prognosis is guarded
--- NOTE | 2023-10-20 12:52 | P.PN ---
Progress Note - Text Per Dr. Mahoney, unable to complete cardiac catheterization today due to scheduling conflicts. Dr. Mahoney to speak with Dr. More regarding performing cardiac catheterization tomorrow. Patient to remain nothing by mouth after midnight
[2023-10-20] MEDS: HEPARIN SODIUM 1,000 UN/ML (10ML VL) IV PRN ×2 (12:57→20:11)
[2023-10-20 15:19] LABS: Chol/HDL Ratio 2.91 Ratio; LDL Cholesterol,Calculated 54.2 mg/dL (0.0-131.0)
[2023-10-20 16:46] LABS: Glucose,Whole Blood 148 mg/dL (70-110)
[2023-10-20 20:21] LABS: Glucose,Whole Blood 141 mg/dL (70-110)
[2023-10-21] MEDS: SODIUM CHLORIDE 0.9% 1,000 ML in EMPTY BAG 1 BAG IV SCH ×3 (00:34→22:16)
[2023-10-21] MEDS: HEPARIN SOD,PORK IN 0.45% NACL 25,000 UNIT in 0.45% NACL 1 250ML.BAG IV SCH ×2 (02:37→17:01)
[2023-10-21 06:09] LABS: Glucose,Whole Blood 166 mg/dL (70-110)
[2023-10-21] MEDS: ASPIRIN 81 MG PO SCH (06:15)
[2023-10-21] MEDS: ATORVASTATIN 40 MG TAB PO SCH (06:15)
[2023-10-21] MEDS: FAMOTIDINE 20 MG/2 ML VIAL IV SCH ×2 (06:16→20:29)
[2023-10-21] MEDS: CLOPIDOGREL 75 MG TAB PO SCH (06:16)
[2023-10-21] MEDS: METOPROLOL SUCCINATE (ER) 25 MG TAB.ER.24H PO SCH (06:17)
[2023-10-21] MEDS: traMADol 50 MG TAB PO PRN (10:22)
[2023-10-21 11:23] LABS: Glucose,Whole Blood 166 mg/dL (70-110)
[2023-10-21] MEDS: FUROSEMIDE 40 MG TAB PO SCH (11:48)
[2023-10-21 16:07] LABS: Glucose,Whole Blood 163 mg/dL (70-110)
[2023-10-21 18:57] LABS: African American GFR (CKD) >90 (>60 ml/min/1.73 sqM); Anion Gap 10 mmol/L; Blood Urea Nitrogen 8 mg/dL (7-17); Carbon Dioxide 23 mmol/L (22-30); Chloride 101 mmol/L (98-107); Glucose 187 mg/dL (74-99); Magnesium 1.5 mg/dL (1.6-2.3); Non-African American GFR(CKD) >90 (>60 ml/min/1.73 sqM); Potassium 3.3 mmol/L (3.5-5.1); Sodium 134 mmol/L (137-145)
[2023-10-21] MEDS ORDERED: Potassium Replacement Protocol 1 EACH MISC MISCELLANE PRN (19:18)
[2023-10-21] MEDS ORDERED: Magnesium Replacement Protocol 1 EACH MISC MISCELLANE PRN (19:19)
--- NOTE | 2023-10-21 20:11 | P.PN ---
Subjective This is a pleasant 73 years old female with multiple medical problems including Asthma, Coronary Artery Disease (CAD), Heart Failure, COPD, Diabetes Mellitus, Fibromyalgia, Hyperlipidemia, Hypertension,Osteoarthritis (OA), Sleep Apnea/CPAP/BIPAP Back pain dyspnea. Degenerative disc disease she status post CABG Patient presents because of chest pain 8/ Central nonradiating sharp with no prostate and or relieving factors. She denies smoking or alcohol but she smokes marijuana. She denies any change in her urine or bowel habits. No headache dizziness weakness or numbness. 10/20/2023 Patient denies chest pain today. No other new complaints. Sure is improved 120/69. Heart rate 103. She remains on heparin drip, aspirin and Plavix, plan for cardiac cath today. Echocardiogram showed ejection fraction of 30-35% with moderate mitral regurgitation 10/21/2023 Patient cardiac cath was consulted yesterday for availability issues and for another cardiac cath with cartilage team followed closely Patient currently denies chest pain but other new complaints. She remains on heparin drip. She uses Ultram for restless leg syndrome provided upon her request. Trazodone to help her sleep. The placenta was prepped protocol. Echocardiogram showed ejection fraction of 30-35% with moderate mitral regurgitation. Objective - Vital Signs Vital signs: Vital Signs Temp 96.5 F L 10/21/23 08:00 Pulse 70 10/21/23 11:14 Resp 18 10/21/23 11:14 BP 112/64 10/21/23 11:14 Pulse Ox 93 L 10/21/23 11:14 FiO2 Intake & Output 10/20/23 10/21/23 10/21/23 18:59 06:59 18:59 Intake Total 796.466 233.534 120 Output Total 200 Balance 796.466 233.534 -80 Weight 82.6 kg Intake: IV 10 Invasive Line 1 10 Intake, IV Titration 26.466 223.534 Amount Heparin Sod,Pork in 0.45% 26.466 223.534 NaCl 25,000 unit In 0.45 % NaCl 1 250ml.bag @ 11.6 UNITS/KG/HR 9.997 mls/hr IV .Q24H [facility] Rx#: [id number] Oral 770 120 Output: Urine 200 Other: Voiding Method Toilet Toilet Toilet # Voids 4 2 1 - Exam GENERAL: The patient is alert and oriented x3, not in any acute distress. Well developed, well nourished. HEENT: Pupils are round and equally reacting to light. EOMI. No scleral icterus. No conjunctival pallor. Normocephalic, atraumatic. No pharyngeal erythema. No thyromegaly. CARDIOVASCULAR: S1 and S2 present. No murmurs, rubs, or gallops. PULMONARY: Chest is clear to auscultation, no wheezing , no crackles. ABDOMEN: Soft, nontender, nondistended, normoactive bowel sounds. No palpable organomegaly. MUSCULOSKELETAL: No joint swelling or deformity. EXTREMITIES: No cyanosis, clubbing, or pedal edema. NEUROLOGICAL: Gross neurological examination did not reveal any focal deficits. SKIN: No rashes. no petechiae. - Labs CBC & Chem 7: 10/20/23 06:09 10/21/23 18:03 Labs: Abnormal Lab Results - Last 24 Hours (Table) 10/20/23 10/20/23 10/20/23 Range/Units 16:45 18:49 20:20 APTT 36.3 H (22.0-30.0) sec POC Glucose (mg/dL) 148 H 141 H (70-110) mg/dL 10/21/23 10/21/23 10/21/23 Range/Units 01:23 06:08 08:26 APTT 55.5 H 49.1 H (22.0-30.0) sec POC Glucose (mg/dL) 166 H (70-110) mg/dL 10/21/23 Range/Units 11:22 APTT (22.0-30.0) sec POC Glucose (mg/dL) 166 H (70-110) mg/dL Assessment and Plan Assessment: Chest pain, rule out cardiac causes Cardiomyopathy with ejection fraction 30-35% Moderate mitral regurgitation Coronary artery disease status post CABG Diabetes mellitus Hypertension Hyperlipidemia History of osteoarthritis Hypothyroidism Sleep apnea History of fibromyalgia Plan: Continue with heparin drip Continue with aspirin Cardiology consult Plan for cardiac cath Labs and medication were reviewed.. Continue same treatment. Continue with symptomatic treatment. Resume home medication. Monitor lytes and vitals. DVT and GI prophylaxis. Further recommendations depends on the clinical course of the patient DVT prophylaxis: heparin GI Prophylaxis: Pepcid Prognosis is guarded
[2023-10-21 20:25] LABS: Glucose,Whole Blood 140 mg/dL (70-110)
[2023-10-21] MEDS: MAGNESIUM SULFATE-D5W PMX 1 GM in DEXTROSE/WATER 1 100ML.BAG IVPB SCH ×2 (20:29→22:15)
--- NOTE | 2023-10-21 20:52 | P.PN ---
Subjective Progress Note Date: 10/21/23 SUBJECTIVE: Patient is seen and examined at bedside the same. She denies having active chest pain chest pressure shortness of breath. She does have mild lower extremity swelling. Mildly elevated JVD BP 114/56, heart rate 106 bpm PHYSICAL EXAMINATION Vital signs reviewed. Head: Normocephalic. Eyes: Sclerae nonicteric. Neck: Brisk carotid upstroke, elevated JVP Respiratory, mild crackles in bilateral bases Heart: Regular rate and rhythm, S1-S2, no S3, no murmur or rub. Abdomen: Soft nontender, positive bowel sounds no organomegaly. Extremities: 1+ pitting edema ASSESSMENT Nstemi Ischemic cardiomyopathy EF 30-35% Acute CHF exacerbation systolic History of CAD status post CABG PLAN Continue IV heparin drip Continue aspirin, Plavix and statin Metoprolol 25 mg daily Lasix 40 mg by mouth daily Plan for cardiac catheterization Monday. Objective - Vital Signs Vital signs: Vital Signs Temp 98.3 F 10/21/23 20:26 Pulse 106 H 10/21/23 20:39 Resp 16 10/21/23 20:39 BP 114/56 10/21/23 20:26 Pulse Ox 100 10/21/23 20:26 FiO2 Intake & Output 10/21/23 10/21/23 10/22/23 06:59 18:59 06:59 Intake Total 233.534 490 10 Output Total 1400 700 Balance 233.534 -910 -690 Weight 82.6 kg Intake: IV 10 10 Invasive Line 1 10 10 Intake, IV Titration 223.534 250 Amount Heparin Sod,Pork in 0.45% 223.534 250 NaCl 25,000 unit In 0.45 % NaCl 1 250ml.bag @ 11.6 UNITS/KG/HR 9.997 mls/hr IV .Q24H [facility] Rx#: [id number] Oral 240 Output: Urine 1400 700 Other: Voiding Method Toilet Toilet Toilet # Voids 2 1 - Labs CBC & Chem 7: 10/20/23 06:09 10/21/23 18:03 Labs: Abnormal Lab Results - Last 24 Hours (Table) 10/21/23 10/21/23 10/21/23 Range/Units 01:23 06:08 08:26 APTT 55.5 H 49.1 H (22.0-30.0) sec Sodium (137-145) mmol/L Potassium (3.5-5.1) mmol/L Glucose (74-99) mg/dL POC Glucose (mg/dL) 166 H (70-110) mg/dL Calcium (8.4-10.2) mg/dL Magnesium (1.6-2.3) mg/dL 10/21/23 10/21/23 10/21/23 Range/Units 11:22 16:06 18:03 APTT (22.0-30.0) sec Sodium 134 L (137-145) mmol/L Potassium 3.3 L (3.5-5.1) mmol/L Glucose 187 H (74-99) mg/dL POC Glucose (mg/dL) 166 H 163 H (70-110) mg/dL Calcium 8.0 L (8.4-10.2) mg/dL Magnesium 1.5 L (1.6-2.3) mg/dL 10/21/23 Range/Units 20:08 APTT (22.0-30.0) sec Sodium (137-145) mmol/L Potassium (3.5-5.1) mmol/L Glucose (74-99) mg/dL POC Glucose (mg/dL) 140 H (70-110) mg/dL Calcium (8.4-10.2) mg/dL Magnesium (1.6-2.3) mg/dL
[2023-10-21] MEDS: traZODone HCL 50 MG TAB PO PRN (22:15)
[2023-10-21] MEDS: POTASSIUM CHLORIDE ER 20 MEQ TAB.ER PO SCH ×2 (22:15→23:22)
[2023-10-22 01:57] LABS: Potassium 3.4 mmol/L (3.5-5.1)
[2023-10-22] MEDS: POTASSIUM CHLORIDE ER 20 MEQ TAB.ER PO SCH ×2 (03:24→04:42)
[2023-10-22] MEDS: HEPARIN SOD,PORK IN 0.45% NACL 25,000 UNIT in 0.45% NACL 1 250ML.BAG IV SCH (05:45)
[2023-10-22 05:59] LABS: Glucose,Whole Blood 129 mg/dL (70-110)
[2023-10-22] MEDS: ASPIRIN 81 MG PO SCH (08:34)
[2023-10-22] MEDS: METOPROLOL SUCCINATE (ER) 25 MG TAB.ER.24H PO SCH (08:34)
[2023-10-22] MEDS: FAMOTIDINE 20 MG/2 ML VIAL IV SCH ×2 (08:34→20:01)
[2023-10-22] MEDS: ATORVASTATIN 40 MG TAB PO SCH (08:34)
[2023-10-22] MEDS: FUROSEMIDE 40 MG TAB PO SCH (08:34)
[2023-10-22] MEDS: CLOPIDOGREL 75 MG TAB PO SCH (08:34)
[2023-10-22] MEDS: SODIUM CHLORIDE 0.9% 1,000 ML in EMPTY BAG 1 BAG IV SCH ×2 (08:44→16:59)
[2023-10-22 09:49] LABS: Anisocytosis Slight; Basophils % (A) 1 %; Eosinophils # (A) 0.2 k/uL (0-0.7); Eosinophils % (A) 3 %; HCT 30.2 % (34.0-46.0); HGB 8.3 gm/dL (11.4-16.0); Hypochromasia Marked; Lymphocytes # (A) 1.6 k/uL (1.0-4.8); Lymphocytes % (A) 24 %; MCH 19.5 pg (25.0-35.0); MCHC 27.5 g/dL (31.0-37.0); MCV 70.7 fL (80.0-100.0); Mean Platelet Volume 8.1; Microcytosis Moderate; Monocytes # (A) 0.2 k/uL (0-1.0); Monocytes % (A) 4 %; Neutrophils # (A) 4.5 k/uL (1.3-7.7); Neutrophils % (A) 67 %; Platelet Count 294 k/uL (150-450); Poikilocytosis Slight; RBC 4.27 m/uL (3.80-5.40); RDW 16.1 % (11.5-15.5); WBC 6.7 k/uL (3.8-10.6)
[2023-10-22] MEDS ORDERED: ALPRAZolam 0.25 MG TAB PO PRN (09:57)
[2023-10-22] MEDS ORDERED: SODIUM CHLORIDE 0.9% 1,000 ML in EMPTY BAG 1 BAG IV SCH (10:00)
[2023-10-22 10:08] LABS: African American GFR (CKD) >90 (>60 ml/min/1.73 sqM); Anion Gap 13 mmol/L; Blood Urea Nitrogen 6 mg/dL (7-17); Calcium 8.3 mg/dL (8.4-10.2); Carbon Dioxide 19 mmol/L (22-30); Chloride 105 mmol/L (98-107); Glucose 194 mg/dL (74-99); Non-African American GFR(CKD) >90 (>60 ml/min/1.73 sqM); Potassium 4.1 mmol/L (3.5-5.1); Sodium 137 mmol/L (137-145)
[2023-10-22 11:43] LABS: Glucose,Whole Blood 142 mg/dL (70-110)
[2023-10-22] MEDS ORDERED: IV FLUID CONTINUATION 1,000 ML IV ONE (11:53)
[2023-10-22] MEDS ORDERED: fentaNYL (PF) 50 MCG/ML 2 ML AMP ONE (12:12)
[2023-10-22] MEDS ORDERED: MIDAZOLAM 2 MG/2 ML VIAL IVP ONE ×2 (12:12)
[2023-10-22] MEDS ORDERED: fentaNYL (PF) 50 MCG/1 ML VIAL IVP ONE ×2 (12:13)
[2023-10-22] MEDS ORDERED: LIDOCAINE 1% INJ 10MG/ML (30 ML VIAL-PF) SQ ONE (12:15)
[2023-10-22] MEDS ORDERED: IOPAMIDOL-370 200ML BTL INJ ONE (12:58)
--- NOTE | 2023-10-22 15:47 | P.PN ---
Subjective This is a pleasant 73 years old female with multiple medical problems including Asthma, Coronary Artery Disease (CAD), Heart Failure, COPD, Diabetes Mellitus, Fibromyalgia, Hyperlipidemia, Hypertension,Osteoarthritis (OA), Sleep Apnea/CPAP/BIPAP Back pain dyspnea. Degenerative disc disease she status post CABG Patient presents because of chest pain 06/01 Central nonradiating sharp with no prostate and or relieving factors. She denies smoking or alcohol but she smokes marijuana. She denies any change in her urine or bowel habits. No headache dizziness weakness or numbness. 10/20/2023 Patient denies chest pain today. No other new complaints. Sure is improved 120/69. Heart rate 103. She remains on heparin drip, aspirin and Plavix, plan for cardiac cath today. Echocardiogram showed ejection fraction of 30-35% with moderate mitral regurgitation 10/21/2023 Patient cardiac cath was consulted yesterday for availability issues and for another cardiac cath with cartilage team followed closely Patient currently denies chest pain but other new complaints. She remains on heparin drip. She uses Ultram for restless leg syndrome provided upon her request. Trazodone to help her sleep. The placenta was prepped protocol. Echocardiogram showed ejection fraction of 30-35% with moderate mitral regurgitation. 10/22/2023 Patient with no chest pain, no significant dyspnea at rest She is hemodynamically stable Sodium 1 potassium are within the reference range, hemoglobin 8.3. Patient remains on heparin drip, aspirin and Plavix Plan for cardiac cath tomorrow 10/23/2023 Objective - Vital Signs Vital signs: Vital Signs Temp 98.2 F 10/22/23 08:31 Pulse 81 10/22/23 15:33 Resp 17 10/22/23 15:33 BP 114/58 10/22/23 15:33 Pulse Ox 99 10/22/23 15:33 FiO2 Intake & Output 10/21/23 10/22/23 10/22/23 18:59 06:59 18:59 Intake Total 490 776.068 220 Output Total 1400 1850 800 Balance -910 -1073.932 -580 Weight 82.6 kg Intake: IV 10 100 Invasive Line 1 10 Intake, IV Titration 250 226.068 Amount Heparin Sod,Pork in 0.45% 250 226.068 NaCl 25,000 unit In 0.45 % NaCl 1 250ml.bag @ 11.6 UNITS/KG/HR 9.997 mls/hr IV .Q24H [facility] Rx#: [id number] Oral 240 540 120 Output: Urine 1400 1850 800 Other: Voiding Method Toilet Toilet External Catheter # Voids 1 2 2 - Exam GENERAL: The patient is alert and oriented x3, not in any acute distress. Well developed, well nourished. HEENT: Pupils are round and equally reacting to light. EOMI. No scleral icterus. No conjunctival pallor. Normocephalic, atraumatic. No pharyngeal erythema. No thyromegaly. CARDIOVASCULAR: S1 and S2 present. No murmurs, rubs, or gallops. PULMONARY: Chest is clear to auscultation, no wheezing , no crackles. ABDOMEN: Soft, nontender, nondistended, normoactive bowel sounds. No palpable organomegaly. MUSCULOSKELETAL: No joint swelling or deformity. EXTREMITIES: No cyanosis, clubbing, or pedal edema. NEUROLOGICAL: Gross neurological examination did not reveal any focal deficits. SKIN: No rashes. no petechiae. - Labs CBC & Chem 7: 10/22/23 08:13 10/22/23 08:13 Labs: Abnormal Lab Results - Last 24 Hours (Table) 10/21/23 10/21/23 10/21/23 Range/Units 16:06 18:03 20:08 Hgb (11.4-16.0) gm/dL Hct (34.0-46.0) % MCV (80.0-100.0) fL MCH (25.0-35.0) pg MCHC (31.0-37.0) g/dL RDW (11.5-15.5) % APTT (22.0-30.0) sec Sodium 134 L (137-145) mmol/L Potassium 3.3 L (3.5-5.1) mmol/L Carbon Dioxide (22-30) mmol/L BUN (7-17) mg/dL Glucose 187 H (74-99) mg/dL POC Glucose (mg/dL) 163 H 140 H (70-110) mg/dL Calcium 8.0 L (8.4-10.2) mg/dL Magnesium 1.5 L (1.6-2.3) mg/dL 10/22/23 10/22/2310/22/23 Range/Units 01:14 05:45 08:13 Hgb (11.4-16.0) gm/dL Hct (34.0-46.0) % MCV (80.0-100.0) fL MCH (25.0-35.0) pg MCHC (31.0-37.0) g/dL RDW (11.5-15.5) % APTT 48.5 H (22.0-30.0) sec Sodium (137-145) mmol/L Potassium 3.4 L (3.5-5.1) mmol/L Carbon Dioxide (22-30) mmol/L BUN (7-17) mg/dL Glucose (74-99) mg/dL POC Glucose (mg/dL) 129 H (70-110) mg/dL Calcium (8.4-10.2) mg/dL Magnesium (1.6-2.3) mg/dL 10/22/23 10/22/23 10/22/23 Range/Units 08:13 08:13 11:42 Hgb 8.3 L (11.4-16.0) gm/dL Hct 30.2 L (34.0-46.0) % MCV 70.7 L (80.0-100.0) fL MCH 19.5 L (25.0-35.0) pg MCHC 27.5 L (31.0-37.0) g/dL RDW 16.1 H (11.5-15.5) % APTT (22.0-30.0) sec Sodium (137-145) mmol/L Potassium (3.5-5.1) mmol/L Carbon Dioxide 19 L (22-30) mmol/L BUN 6 L (7-17) mg/dL Glucose 194 H (74-99) mg/dL POC Glucose (mg/dL) 142 H (70-110) mg/dL Calcium 8.3 L (8.4-10.2) mg/dL Magnesium (1.6-2.3) mg/dL Assessment and Plan Assessment: Chest pain, rule out cardiac causes Cardiomyopathy with ejection fraction 30-35% Moderate mitral regurgitation Coronary artery disease status post CABG Diabetes mellitus Hypertension Hyperlipidemia History of osteoarthritis Hypothyroidism Sleep apnea History of fibromyalgia Plan: Continue with heparin drip Continue with aspirin Cardiology consult Plan for cardiac cath Labs and medication were reviewed.. Continue same treatment. Continue with symptomatic treatment. Resume home medication. Monitor lytes and vitals. DVT and GI prophylaxis. Further recommendations depends on the clinical course of the patient DVT prophylaxis: heparin GI Prophylaxis: Pepcid Prognosis is guarded
[2023-10-22] MEDS: traMADol 50 MG TAB PO PRN ×2 (15:49→23:18)
[2023-10-22 16:53] LABS: Glucose,Whole Blood 185 mg/dL (70-110)
--- NOTE | 2023-10-22 19:37 | P.CARDCATH ---
Date of Procedure: 10/22/23 Description of Procedure: DIAGNOSTIC CORONARY ANGIOGRAPHY and LEFT HEART CATH REPORT PROCEDURES PERFORMED: Left heart catheterization Selective coronary angiography Moderate conscious sedation 45 mins Right common femoral access Right common femoral arteriogram Angioseal Closure INDICATION: NSTEMI and worsening cardiomyopathy, EF 30-35% CONSENT: I have discussed the risks, benefits and alternative therapies for the above-mentioned procedure, sedation/analgesia and necessary blood product administration (if indicated, as they pertain to this patient). The patient has indicated understanding and acceptance of the risks and procedures discussed. Conscious Sedation: Patient's ECG, heart rate, blood pressure, pulse oximetry was monitored throughout the duration of procedure under the direct supervision. [1] mg Versed and [50] mg Fentanyl were used for induction of moderate conscious sedation. Total duration of 45 minutes. PROCEDURE:After the risks, benefits and alternatives of the above mentioned pro cedure explained in detail with the patient, informed consent was obtained. Patient was taken to the catheterization lab and prepped and draped in usual sterile fashion. Ultrasound was used to identify the right common femoral artery. 1% lidocaine was infiltrated over the right common femoral artery. Using ultrasound arterial access was obtained using micropuncture needle. A 6-Icelandic sheath was placed in the right radial artery using modified Seldinger technique. J tipped wire was advanced under fluoroscopic guidance. Over the wire JL4 diagnostic catheter was advanced. Wire was removed, catheter was flushed and manipulated under fluoroscopy to selectively engaged the left coronary ostium. Left coronary angioplasty was performed in different angiographic projections. This catheter was exchanged for a JR4 diagnostic catheter over the wire. The catheter was flushed and manipulated to cross the aortic valve. LV pressures were obtained. Pullback was performed across aortic valve and catheter was manipulated to selectively engage the right coronary ostium under fluoroscopic guidance. Right coronary angiography was performed in different angiographic projections. Catheter was removed over the wire. Femoral sheath was flushed. Angioseal closure device was used to close the arteriotomy site. Appropriate patent hemostasis was achieved. The patient tolerated the procedure well. Patient was transported back to the post catheterization holding area in stable condition. Angiographic images were reviewed in detail. HEMODYNAMICS: Aortic Pressure: 145/80 mmHg. LV pressure: 148/19 mmHg. LVEDP 34 mmHg. SELECTIVE CORONARY ARTERIOGRAPHY: LEFT MAIN: The left main is a large caliber vessel which bifurcates into the LAD, ramus and circumflex. Distal left main has 80% calcific stenosis LEFT ANTERIOR DESCENDING CORONARY ARTERY: Ostial LAD has 80-90% calcific stenosis. Ramus intermedius: Medium size, ostial 80-90% disease. Distal supplied by SIMPSON graft. Ramus bifurcates into superior and inferior branch. Inferior branch appears to be occluded. On prior cath from every 2022 the inferior branch was patent. LEFT CIRCUMFLEX CORONARY ARTERY: 80-90% ostial LCx disease. Nondominant LCx. Gives rise to small OM1 branch which appears angiographically normal RIGHT CORONARY ARTERY: Dominant vessel. Large caliber vessel 20-30% diffuse disease. Distal RCA bifurcates into PDA and PL branches. Proximal PDA has a prior stent with 80% in-stent stenosis. DESI-3 distal flow Grafts SIMPSON graft has [id number] anastomosis with LAD an end-to-side anastomosis of the ramus. SIMPSON graft is patent supplying both LAD and ramus intermedius. There is competitive flow both and ramus and LAD. Good distal runoff Radial anastomosis from SIMPSON to OM is known to be occluded IMPRESSION: 80% in-stent stenosis of proximal PDA stent Patent SIMPSON to LAD and sequential to ramus Known occluded radial graft from SIMPSON to OM Elevated LVEDP PLAN: After discussing the case with Dr. Grewal objective decision was made that Patient is not the best candidate for PCI at this moment. Aggressive guideline directed medical therapy We will discuss the angiographic findings with Dr. Mahoney. Performing Physician Johnathan More MD
[2023-10-22] MEDS ORDERED: RX INFO: IV CONTRAST WAS GIVEN 1 EACH MISC MISCELLANE PRN (19:38)
[2023-10-22] MEDS ORDERED: SODIUM CHLORIDE 0.9% 1,000 ML IV SCH (19:45)
[2023-10-22] MEDS: FUROSEMIDE 10 MG/ML 4 ML VIAL IV SCH (20:01)
[2023-10-22 20:21] LABS: Glucose,Whole Blood 181 mg/dL (70-110)
[2023-10-22 22:18] LABS: Magnesium 1.8 mg/dL (1.6-2.3); Potassium 3.7 mmol/L (3.5-5.1)
[2023-10-22] MEDS ORDERED: MAGNESIUM SULFATE-D5W PMX 1 GM in DEXTROSE/WATER 1 100ML.BAG IVPB ONE (23:11)
[2023-10-22] MEDS: traZODone HCL 50 MG TAB PO PRN (23:18)
[2023-10-23] MEDS: POTASSIUM CHLORIDE ER 20 MEQ TAB.ER PO SCH ×3 (02:58→04:46)
[2023-10-23] MEDS: traMADol 50 MG TAB PO PRN (04:15)
[2023-10-23 05:56] LABS: Glucose,Whole Blood 132 mg/dL (70-110)
[2023-10-23] MEDS: SODIUM CHLORIDE 0.9% 1,000 ML in EMPTY BAG 1 BAG IV SCH (09:12)
[2023-10-23] MEDS: FAMOTIDINE 20 MG/2 ML VIAL IV SCH ×2 (09:16→20:46)
[2023-10-23] MEDS: METOPROLOL SUCCINATE (ER) 25 MG TAB.ER.24H PO SCH ×2 (09:16→20:46)
[2023-10-23] MEDS: ATORVASTATIN 40 MG TAB PO SCH (09:16)
[2023-10-23] MEDS: CLOPIDOGREL 75 MG TAB PO SCH (09:16)
[2023-10-23] MEDS: FUROSEMIDE 10 MG/ML 4 ML VIAL IV SCH ×2 (09:16→20:43)
[2023-10-23] MEDS: ASPIRIN 81 MG PO SCH (09:17)
[2023-10-23 09:22] LABS: African American GFR (CKD) >90 (>60 ml/min/1.73 sqM); Anion Gap 12 mmol/L; Blood Urea Nitrogen 8 mg/dL (7-17); Calcium 8.6 mg/dL (8.4-10.2); Carbon Dioxide 25 mmol/L (22-30); Chloride 101 mmol/L (98-107); Glucose 159 mg/dL (74-99); Magnesium 1.8 mg/dL (1.6-2.3); Non-African American GFR(CKD) >90 (>60 ml/min/1.73 sqM); Potassium 4.4 mmol/L (3.5-5.1); Sodium 138 mmol/L (137-145)
[2023-10-23 09:51] LABS: Anisocytosis Slight; HCT 29.8 % (34.0-46.0); HGB 8.8 gm/dL (11.4-16.0); Hypochromasia Marked; MCH 20.1 pg (25.0-35.0); MCHC 29.6 g/dL (31.0-37.0); Mean Platelet Volume 7.7; Microcytosis Marked; Platelet Count 301 k/uL (150-450); Poikilocytosis Slight; RBC 4.38 m/uL (3.80-5.40); RDW 16.3 % (11.5-15.5); WBC 6.9 k/uL (3.8-10.6)
[2023-10-23 11:33] LABS: Glucose,Whole Blood 187 mg/dL (70-110)
[2023-10-23 16:17] LABS: Glucose,Whole Blood 189 mg/dL (70-110)
--- NOTE | 2023-10-23 16:46 | P.PN ---
Subjective Progress Note Date: 10/23/23 SUBJECTIVE: 10/23/2023 Blood pressure 118/58, pulse 90 beats a minute Lab shows improving 8.8, low MCV, high RDW macrocytosis Sodium 138, potassium 4.4, creatinine 0.6. On telemetry patient has intermittent NSVT 5-6 beats. PHYSICAL EXAMINATION Vital signs reviewed. Head: Normocephalic. Eyes: Sclerae nonicteric. Neck: Brisk carotid upstroke, elevated JVP Respiratory, mild crackles in bilateral bases Heart: Regular rate and rhythm, S1-S2, no S3, no murmur or rub. Abdomen: Soft nontender, positive bowel sounds no organomegaly. Extremities: 1+ pitting edema ASSESSMENT Nstemi 80-90% proximal PDA instent stenosis. Last PCI to prox PDA was in 11/2022. NSVT Ischemic cardiomyopathy EF 30-35% Acute CHF exacerbation systolic History of CAD status post CABG Microcytic anemia, PLAN Continue aspirin, Plavix and statin Increase Metoprolol to 25 mg BID Increase lisinopril to 5mg daily Increase lasix to 40mg IV BID. Has elevated LVEDP on cath 35 mmHG IV iron one dose Check iron studies Optimize heart failure medications. We are limited by patient's low resting blood pressure Patient will need ICD placement for her cardiomyopathy. We will also discuss the cardiac cath images with Dr. Mahoney. I had a discussion with patient about LifeVest. At this time patient is not confident about it. We will reevaluated especially because patient is having frequent NSVDs Objective - Vital Signs Vital signs: Vital Signs Temp 98.1 F 10/23/23 12:55 Pulse 90 10/23/23 12:55 Resp 16 10/23/23 12:55 BP 118/58 10/23/23 12:55 Pulse Ox 98 10/23/23 12:55 FiO2 Intake & Output 10/22/23 10/23/23 10/23/23 18:59 06:59 18:59 Intake Total 340 550 335 Output Total 1600 1700 Balance -1260 -1150 335 Weight 81.9 kg Intake: IV 100 10 Invasive Line 1 10 Oral 240 540 335 Output: Urine 1600 1700 Other: Voiding Method External Catheter Toilet # Voids 2 1 # Bowel Movements 0 - Labs CBC & Chem 7: 10/23/23 08:20 10/23/23 08:20 Labs: Abnormal Lab Results - Last 24 Hours (Table) 10/22/23 10/22/23 10/23/23 Range/Units 16:51 20:20 05:54 Hgb (11.4-16.0) gm/dL Hct (34.0-46.0) % MCV (80.0-100.0) fL MCH (25.0-35.0) pg MCHC (31.0-37.0) g/dL RDW (11.5-15.5) % Glucose (74-99) mg/dL POC Glucose (mg/dL) 185 H 181 H 132 H (70-110) mg/dL 10/23/23 10/23/23 10/23/23 Range/Units 08:20 08:20 11:30 Hgb 8.8 L (11.4-16.0) gm/dL Hct 29.8 L (34.0-46.0) % MCV 68.0 L (80.0-100.0) fL MCH 20.1 L (25.0-35.0) pg MCHC 29.6 L (31.0-37.0) g/dL RDW 16.3 H (11.5-15.5) % Glucose 159 H (74-99) mg/dL POC Glucose (mg/dL) 187 H (70-110) mg/dL 10/23/23 Range/Units 16:16 Hgb (11.4-16.0) gm/dL Hct (34.0-46.0) % MCV (80.0-100.0) fL MCH (25.0-35.0) pg MCHC (31.0-37.0) g/dL RDW (11.5-15.5) % Glucose (74-99) mg/dL POC Glucose (mg/dL) 189 H (70-110) mg/dL
[2023-10-23] MEDS ORDERED: SODIUM FERRIC GLUCONAT-SUCROSE 125 MG in SODIUM CHLORIDE 0.9% 100 ML IVPB ONE (18:00)
[2023-10-23 20:34] LABS: Glucose,Whole Blood 181 mg/dL (70-110)
--- NOTE | 2023-10-23 23:29 | P.PN ---
Subjective This is a pleasant 73 years old female with multiple medical problems including Asthma, Coronary Artery Disease (CAD), Heart Failure, COPD, Diabetes Mellitus, Fibromyalgia, Hyperlipidemia, Hypertension,Osteoarthritis (OA), Sleep Apnea/CPAP/BIPAP Back pain dyspnea. Degenerative disc disease she status post CABG Patient presents because of chest pain / Central nonradiating sharp with no prostate and or relieving factors. She denies smoking or alcohol but she smokes marijuana. She denies any change in her urine or bowel habits. No headache dizziness weakness or numbness. 10/20/2023 Patient denies chest pain today. No other new complaints. Sure is improved 120/69. Heart rate 103. She remains on heparin drip, aspirin and Plavix, plan for cardiac cath today. Echocardiogram showed ejection fraction of 30-35% with moderate mitral regurgitation 10/21/2023 Patient cardiac cath was consulted yesterday for availability issues and for another cardiac cath with cartilage team followed closely Patient currently denies chest pain but other new complaints. She remains on heparin drip. She uses Ultram for restless leg syndrome provided upon her request. Trazodone to help her sleep. The placenta was prepped protocol. Echocardiogram showed ejection fraction of 30-35% with moderate mitral regurgitation. 10/22/2023 Patient with no chest pain, no significant dyspnea at rest She is hemodynamically stable Sodium 1 potassium are within the reference range, hemoglobin 8.3. Patient remains on heparin drip, aspirin and Plavix Plan for cardiac cath tomorrow 10/23/2023 Patient is status post cardiac cath showing 80% stenosis of the PDA stent, patient not a candidate for PCI and was decided to treat her medically Currently placed on aspirin and Plavix, metoprolol lisinopril added today Also patient on IV Lasix 40 mg twice daily Continue monitoring for 24 hours Objective - Vital Signs Vital signs: Vital Signs Temp 98.1 F 10/23/23 03:00 Pulse 82 10/23/23 03:00 Resp 16 10/23/23 03:00 BP 99/49 10/23/23 03:00 Pulse Ox 95 10/23/23 03:00 FiO2 Intake & Output 10/22/23 10/23/23 10/23/23 18:59 06:59 18:59 Intake Total 340 550 225 Output Total 1600 1700 Balance -1260 -1150 225 Weight 81.9 kg Intake: IV 100 10 Invasive Line 1 10 Oral 240 540 225 Output: Urine 1600 1700 Other: Voiding Method External Catheter Toilet # Voids 2 1 - Exam GENERAL: The patient is alert and oriented x3, not in any acute distress. Well developed, well nourished. HEENT: Pupils are round and equally reacting to light. EOMI. No scleral icterus. No conjunctival pallor. Normocephalic, atraumatic. No pharyngeal erythema. No thyromegaly. CARDIOVASCULAR: S1 and S2 present. No murmurs, rubs, or gallops. PULMONARY: Chest is clear to auscultation, no wheezing , no crackles. ABDOMEN: Soft, nontender, nondistended, normoactive bowel sounds. No palpable organomegaly. MUSCULOSKELETAL: No joint swelling or deformity. EXTREMITIES: No cyanosis, clubbing, or pedal edema. NEUROLOGICAL: Gross neurological examination did not reveal any focal deficits. SKIN: No rashes. no petechiae. - Labs CBC & Chem 7: 10/23/23 08:20 10/23/23 08:20 Labs: Abnormal Lab Results - Last 24 Hours (Table) 10/22/23 10/22/23 10/22/23 Range/Units 11:42 16:51 20:20 Hgb (11.4-16.0) gm/dL Hct (34.0-46.0) % MCV (80.0-100.0) fL MCH (25.0-35.0) pg MCHC (31.0-37.0) g/dL RDW (11.5-15.5) % Glucose (74-99) mg/dL POC Glucose (mg/dL) 142 H 185 H 181 H (70-110) mg/dL 10/23/23 10/23/23 10/23/23 Range/Units 05:54 08:20 08:20 Hgb 8.8 L (11.4-16.0) gm/dL Hct 29.8 L (34.0-46.0) % MCV 68.0 L (80.0-100.0) fL MCH 20.1 L (25.0-35.0) pg MCHC 29.6 L (31.0-37.0) g/dL RDW 16.3 H (11.5-15.5) % Glucose 159 H (74-99) mg/dL POC Glucose (mg/dL) 132 H (70-110) mg/dL Assessment and Plan Assessment: NSTEMI, status post cardiac cath showing 80% stenosis of the PDA stent, patient not a candidate for PCI Cardiomyopathy with ejection fraction 30-35% Moderate mitral regurgitation Coronary artery disease status post CABG Diabetes mellitus Hypertension Hyperlipidemia History of osteoarthritis Hypothyroidism Sleep apnea History of fibromyalgia Plan: Continue with heparin drip Continue with aspirin Cardiology consult Plan for cardiac cath Labs and medication were reviewed.. Continue same treatment. Continue with symptomatic treatment. Resume home medication. Monitor lytes and vitals. DVT and GI prophylaxis. Further recommendations depends on the clinical course of the patient DVT prophylaxis: heparin GI Prophylaxis: Pepcid Prognosis is guarded
[2023-10-24 00:32] VITALS: RESP 18
[2023-10-24 06:04] LABS: Glucose,Whole Blood 180 mg/dL (70-110)
[2023-10-24 07:00] LABS: African American GFR (CKD) >90 (>60 ml/min/1.73 sqM); Anion Gap 12 mmol/L; Blood Urea Nitrogen 11 mg/dL (7-17); Calcium 8.8 mg/dL (8.4-10.2); Carbon Dioxide 24 mmol/L (22-30); Chloride 102 mmol/L (98-107); Glucose 172 mg/dL (74-99); Non-African American GFR(CKD) >90 (>60 ml/min/1.73 sqM); Potassium 4.2 mmol/L (3.5-5.1); Sodium 138 mmol/L (137-145)
[2023-10-24 07:07] LABS: NT-Pro-B-Type Natriuretic Pept 1170 pg/mL
[2023-10-24 08:31] LABS: % Iron Saturation 3.54 (12.00-45.00); Ferritin 42.7 ng/mL (10.0-291.0)
[2023-10-24] MEDS: ASPIRIN 81 MG PO SCH (08:59)
[2023-10-24] MEDS: METOPROLOL SUCCINATE (ER) 25 MG TAB.ER.24H PO SCH (08:59)
[2023-10-24] MEDS: ATORVASTATIN 40 MG TAB PO SCH (08:59)
[2023-10-24] MEDS: CLOPIDOGREL 75 MG TAB PO SCH (08:59)
[2023-10-24 09:03] VITALS: TEMP 98.4
[2023-10-24] MEDS: FAMOTIDINE 20 MG/2 ML VIAL IV SCH (09:11)
[2023-10-24] MEDS: FUROSEMIDE 10 MG/ML 4 ML VIAL IV SCH (09:11)
[2023-10-24] MEDS ORDERED: SPIRONOLACTONE 25 MG TAB PO SCH (10:15)
[2023-10-24 11:25] VITALS: BP 123/65; PULSE 85
[2023-10-24 11:39] LABS: Glucose,Whole Blood 153 mg/dL (70-110)
--- NOTE | 2023-10-24 13:54 | P.PN ---
Subjective Progress Note Date: 10/24/23 SUBJECTIVE: 10/23/2023 Blood pressure 118/58, pulse 90 beats a minute Lab shows improving 8.8, low MCV, high RDW macrocytosis Sodium 138, potassium 4.4, creatinine 0.6. On telemetry patient has intermittent NSVT 5-6 beats. 10/24 Patient is seen today in follow-up. She states she has ambulated in her room without symptoms. No chest pain. No shortness of breath. She is currently on IV Lasix. Discussed with patient need for defibrillator which will be planned for outpatient. No LifeVest as needed at this time. PHYSICAL EXAMINATION Vital signs reviewed. Head: Normocephalic. Eyes: Sclerae nonicteric. Neck: Brisk carotid upstroke, elevated JVP Respiratory, mild crackles in bilateral bases Heart: Regular rate and rhythm, S1-S2, no S3, no murmur or rub. Abdomen: Soft nontender, positive bowel sounds no organomegaly. Extremities: 1+ pitting edema ASSESSMENT Nstemi 80-90% proximal PDA instent stenosis. Last PCI to prox PDA was in 11/2022. NSVT Ischemic cardiomyopathy EF 30-35% Acute CHF exacerbation systolic History of CAD status post CABG Microcytic anemia, PLAN Continue aspirin, Plavix and statin Continue Metoprolol to 25 mg BID, lisinopril to 5mg daily Transition IV Lasix to oral 40 mg daily Start patient on Aldactone 25 mg daily Patient is cleared from cardiology for discharge and may follow-up with Dr. Fer Mahoney next week. No LifeVest as needed at this time. Plan will be for outpatient defibrillator implantation. Nurse practitioner note has been reviewed, I agree with the documented findings and plan of care. Patient was seen and examined. Objective - Vital Signs Vital signs: Vital Signs Temp 98.4 F 10/24/23 08:56 Pulse 88 10/24/23 08:56 Resp 18 10/24/23 08:56 BP 109/69 10/24/23 08:56 Pulse Ox 98 10/24/23 08:56 FiO2 Intake & Output 10/23/23 10/24/23 10/24/23 18:59 06:59 18:59 Intake Total 445 120 Output Total 700 500 Balance 445 -700 -380 Weight 80.8 kg Intake: Oral 445 120 Output: Urine 700 500 Other: Voiding Method Toilet Toilet # Voids 1 # Bowel Movements 0 - Labs CBC & Chem 7: 10/23/23 08:20 10/24/23 06:18 Labs: Abnormal Lab Results - Last 24 Hours (Table) 10/23/23 10/23/23 10/23/23 Range/Units 08:20 11:30 16:16 Glucose (74-99) mg/dL POC Glucose (mg/dL) 187 H 189 H (70-110) mg/dL Iron 14 L (50-170) UG/DL % Saturation 3.54 L (12.00-45.00) 10/23/23 10/24/23 10/24/23 Range/Units 20:13 05:43 06:18 Glucose 172 H (74-99) mg/dL POC Glucose (mg/dL) 181 H 180 H (70-110) mg/dL Iron (50-170) UG/DL % Saturation (12.00-45.00)
[2023-10-24 16:56] LABS: Glucose,Whole Blood 174 mg/dL (70-110)
[2023-10-25] MEDS ORDERED: FUROSEMIDE 40 MG TAB PO SCH (09:00)
== END 2023-10-24 17:39 | disposition home or self-care (01) | DRG 280 ==
LOC: EC 23:58 → 3SCARD 10-19 07:34
PROVIDERS: ADMIT Internal Medicine; ATTEND Internal Medicine
PROC: B2131ZZ Fluoroscopy of Multiple Coronary Artery Bypass Grafts using Low Osmolar Contrast (ICD-10-PCS; 2023-10-22)
PROC: B2181ZZ Fluoroscopy of Left Internal Mammary Bypass Graft using Low Osmolar Contrast (ICD-10-PCS; 2023-10-22)
PROC: 4A023N7 Measurement of Cardiac Sampling and Pressure, Left Heart, Percutaneous Approach (ICD-10-PCS; principal; 2023-10-22 11:52)
PROC: B2111ZZ Fluoroscopy of Multiple Coronary Arteries using Low Osmolar Contrast (ICD-10-PCS; 2023-10-22 11:52)
DX: I21.4 Non-ST elevation (NSTEMI) myocardial infarction (principal); I50.23 Acute on chronic systolic (congestive) heart failure; I25.810 Atherosclerosis of coronary artery bypass graft(s) without angina pectoris; I47.20 Ventricular tachycardia, unspecified; T82.855A Stenosis of coronary artery stent, initial encounter; Z11.52 Encounter for screening for COVID-19; D50.9 Iron deficiency anemia, unspecified; D75.89 Other specified diseases of blood and blood-forming organs; E03.9 Hypothyroidism, unspecified; I11.0 Hypertensive heart disease with heart failure; Z79.890 Hormone replacement therapy; M19.90 Unspecified osteoarthritis, unspecified site; M79.7 Fibromyalgia; E78.5 Hyperlipidemia, unspecified; G25.81 Restless legs syndrome; I25.5 Ischemic cardiomyopathy; G47.30 Sleep apnea, unspecified; Z88.2 Allergy status to sulfonamides; Z88.1 Allergy status to other antibiotic agents; Z79.02 Long term (current) use of antithrombotics/antiplatelets; Z79.4 Long term (current) use of insulin; Z79.51 Long term (current) use of inhaled steroids; Z79.82 Long term (current) use of aspirin; Z79.899 Other long term (current) drug therapy; Z82.49 Family history of ischemic heart disease and other diseases of the circulatory system; Z95.1 Presence of aortocoronary bypass graft; I08.3 Combined rheumatic disorders of mitral, aortic and tricuspid valves; Z87.19 Personal history of other diseases of the digestive system; Z98.51 Tubal ligation status
CPT/HCPCS: 36415; 71046; 76937; 80048; 80053; 80061; 82728; 83540; 83550; 83735; 83880; 84132; 84443; 84484; 85025; 85027; 85610; 85730; 87636; 93005; 93306; 93459; 96365; 96375; 99285

== ENCOUNTER 2023-11-07 21:24 | Observation (INO) | payer MEDICARE, OTHER ==
--- NOTE | 2023-11-07 22:04 | ED ---
General Adult HPI - General Chief complaint: Upper Respiratory Infection Stated complaint: NIDIA, Back Pain Time Seen by Provider: 11/07/23 21:48 Source: patient Mode of arrival: wheelchair Limitations: no limitations - History of Present Illness Initial comments: 's patient is 73-year-old woman who presents with 2 complaints. She states that she is having cough, congestion, wheeze that is been going on for 2-3 days, getting progressively worse. She states that The Cough Has Been Causing Her to Have a Flareup of Her Sciatic Nerve Pain. She Indicates the Left Low Back Radiating Towards buttocks. She States She Has Had Previous Episodes and This I s Similar but She Does Not Have Any Pain Medication to Take at Home. She Did Try Palr-Vza-Nrmqvsf Medication but It Is Not Getting Significant Relief. Onset/Timin -: days(s) Location: back, buttocks, left Quality: aching Consistency: constant Improves with: none Worsens with: none Associated Symptoms: cough Treatments Prior to Arrival: NSAID - Related Data Home Medications Medication Instructions Recorded Confirmed traMADol HCl [Ultram] 50 mg PO TID PRN 11/04/15 11/08/23 traZODone HCL [Desyrel] 50 mg PO HS PRN 06/11/23 11/08/23 Albuterol Nebulized [Ventolin 2.5 mg INHALATION RT-Q4H PRN 07/22/23 11/08/23 Nebulized] Ipratropium-Albuterol Nebulize 3 ml INHALATION RT-QID 07/22/23 11/08/23 [Duoneb 0.5 mg-3 mg/3 ml Soln] Previous Rx's Medication Instructions Recorded Insulin Glargine/Lixisenatide 30 units SQ DAILY 30 Days #1 pen 07/01/23 [Soliqua 100 Unit-33 Mcg/ml Pen] Budesonide-Formot 160-4.5 Mcg 2 puff INHALATION RT-BID 30 Days 08/10/23 [Symbicort 160-4.5 Mcg Inhaler] #1 each Aspirin 81 mg PO DAILY #30 tab 10/24/23 Atorvastatin [Lipitor] 40 mg PO DAILY #30 tab 10/24/23 Clopidogrel [Plavix] 75 mg PO DAILY #30 tab 10/24/23 Furosemide [Lasix] 40 mg PO DAILY 30 Days #30 tab 10/24/23 Metoprolol Succinate (ER) [Toprol 25 mg PO BID #60 tab 10/24/23 XL] Spironolactone [Aldactone] 25 mg PO DAILY #30 tab 10/24/23 Ferrous Sulfate [Iron (65 MG 325 mg PO W/LUNCH 30 Days #30 tab 11/11/23 Elemental)] lisinopriL [Zestril] 5 mg PO DAILY 30 Days #30 tab 11/11/23 Allergies Allergy/AdvReac Type Severity Reaction Status Date / Time cephalexin Allergy Anaphylaxis Verified 11/08/23 07:23 cephalexin monohydrate Allergy Anaphylaxis Verified 11/08/23 07:23 [From Keflex] Sulfa (Sulfonamide Allergy Rash/Hives Verified 11/08/23 07:23 Antibiotics) Review of Systems ROS Statement: Those systems with pertinent positive or pertinent negative responses have been documented in the HPI. ROS Other: All systems not noted in ROS Statement are negative. Constitutional: Denies: fever, chills, weakness Respiratory: Reports: as per HPI, cough, wheezes. Denies: dyspnea Cardiovascular: Denies: chest pain, palpitations, orthopnea, edema, syncope Gastrointestinal: Denies: abdominal pain, vomiting, diarrhea Genitourinary: Denies: dysuria, hematuria Musculoskeletal: Reports: as per HPI, back pain Skin: Denies: rash Neurological: Denies: headache, weakness Past Medical History Past Medical History: Asthma, Coronary Artery Disease (CAD), Heart Failure, COPD, Diabetes Mellitus, Fibromyalgia, Hyperlipidemia, Hypertension, Musculoskeletal Disorder, Osteoarthritis (OA), Sleep Apnea/CPAP/BIPAP Additional Past Medical History / Comment(s): TESTED POSITIVE FOR LUPUS (STATES NO SYMPTOMS), DOES NOT USE CPAP, SEASONAL ALLERGIES, STATES 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 Poly substance abuse "when younger", 07/19/21 admitted for Acute delirium History of Any Multi-Drug Resistant Organisms: None Reported Past Surgical History: Cholecystectomy, Coronary Bypass/CABG, Hernia Repair, Orthopedic Surgery, Tonsillectomy, Tubal Ligation Additional Past Surgical History / Comment(s): LEFT KNEE ARTHROSCOPY, BMT AND MYRINGOPLASTY, umbilical hernia repair, CABG 2020 Past Anesthesia/Blood Transfusion Reactions: No Reported Reaction Additional Past Anesthesia/Blood Transfusion Reaction / Comment(s): STATES AFTER LAST EAR SX (11/2013) HAD SORE MUSCLES AND WAS WEAK FOR 3-4 DAYS Past Psychological History: No Psychological Hx Reported Smoking Status: Former smoker Past Alcohol Use History: None Reported Past Drug Use History: Marijuana - Past Family History Sister(s) Family Medical History: Cancer Brother(s) Family Medical History: Cancer Additional Family Medical History / Comment(s): brother had heart valve replacement Mother Family Medical History: Chest Pain / Angina, Diabetes Mellitus, Hypertension Father History Unknown: Yes Additional Family Medical History / Comment(s): , "had bad lungs" per patient, was a smoker General Exam Limitations: no limitations General appearance: alert, in no apparent distress Head exam: Present: atraumatic, normocephalic Eye exam: Present: normal appearance. Absent: scleral icterus, conjunctival injection Neck exam: Present: normal inspection Respiratory exam: Present: wheezes. Absent: respiratory distress, rales, rhonchi, stridor, accessory muscle use Cardiovascular Exam: Present: normal rhythm, tachycardia, normal heart sounds. Absent: systolic murmur, diastolic murmur, rubs, gallop GI/Abdominal exam: Present: soft. Absent: distended, tenderness, guarding, rebound, rigid, mass Extremities exam: Present: normal inspection, normal capillary refill, pedal edema (Trace edema at the ankles bilaterally). Absent: calf tenderness Back exam: Present: normal inspection, paraspinal tenderness. Absent: CVA te nderness (R), CVA tenderness (L) Neurological exam: Present: alert, normal gait, reflexes normal. Absent: motor sensory deficit Skin exam: Present: warm, dry, intact, normal color. Absent: rash Course Vital Signs 11/07/23 11/08/23 11/08/23 21:50 00:50 01:53 Temperature 98.3 F Pulse Rate 119 H 93 Respiratory 24 20 22 Rate Blood Pressure 90/54 108/57 O2 Sat by Pulse 100 99 Oximetry 11/08/23 11/08/23 11/08/23 03:00 06:09 08:31 Temperature Pulse Rate 93 85 94 Respiratory 20 18 22 Rate Blood Pressure 117/64 106/74 111/89 O2 Sat by Pulse 98 96 96 Oximetry 11/08/23 11/08/2324 09:46 13:58 14:06 Temperature Pulse Rate 83 68 70 Respiratory 20 Rate Blood Pressure 114/65 O2 Sat by Pulse 93 L Oximetry 11/08/23 11/08/23 18:17 18:28 Temperature Pulse Rate 110 H 114 H Respiratory Rate Blood Pressure O2 Sat by Pulse Oximetry Medical Decision Making - Medical Decision Making The patient had chest x-ray which I interpreted as showing presence of cardiomegaly a Was pt. sent in by a medical professional or institution (, PA, CRIME PREVENTION POLICE OFFICER, urgent care, hospital, or senior care...) When possible be specific @ -[No] Did you speak to anyone other than the patient for history (EMS, parent, family, police, friend...)? What history was obtained from this source @ -[No] Did you review nursing and triage notes (agree or disagree)? Why? @ -[I reviewed and agree with nursing and triage notes] Were old charts reviewed (outside hosp., previous admission, EMS record, old EKG, old radiological studies, urgent care reports/EKG's, senior care records)? Report findings @ -[No old charts were reviewed] Differential Diagnosis (chest pain, altered mental status, abdominal pain women, abdominal pain men, vaginal bleeding, weakness, fever, dyspnea, syncope, headache, dizziness, GI bleed, back pain, seizure, CVA, palpatations, mental health, musculoskeletal)? @ -[Differential Back Pain: Strain, zoster, cauda equina syndrome, epidural abscess, vertebral osteomyelitis, discitis, fracture, subluxation, disc herniation, DJD, spinal st enosis, dissection, AAA, pancreatitis, peptic ulcer disease, pyelonephritis, kidney stone, this is not meant to be an all-inclusive list. EKG interpreted by me (3pts min.). @ -[As above] X-rays interpreted by me (1pt min.). @ -[I interpreted as above CT interpreted by me (1pt min.). @ -[None done] U/S interpreted by me (1pt. min.). @ -[None done] What testing was considered but not performed or refused? (CT, X-rays, U/S, labs)? Why? @ -[None] What meds were considered but not given or refused? Why? @ -[None] Did you discuss the management of the patient with other professionals (professionals i.e. , PA, CRIME PREVENTION POLICE OFFICER, lab, RT, psych nurse, social media project manager, laboratory animal caretaker, teacher, court security officer, showcase maker)? Give summary @ -[Case discussed with admitting physician will admit to the hospital, treatment recommendations incorporated Was smoking cessation discussed for >3mins.? @ -[No] Was critical care preformed (if so, how long)? @ -[No] Were there social determinants of health that impacted care today? How? (Homelessness, low income, unemployed, alcoholism, drug addiction, transportation, low edu. Level, literacy, decrease access to med. care, detention, rehab)? @ -[No] Was there de-escalation of care discussed even if they declined (Discuss DNR or withdrawal of care, Hospice)? DNR status @ -[No] What co-morbidities impacted this encounter? (DM, HTN, Smoking, COPD, CAD, Cancer, CVA, ARF, Chemo, Hep., AIDS, mental health diagnosis, sleep apnea, morbid obesity)? @ -[None] Was patient admitted / discharged? Hospital course, mention meds given and route, prescriptions, significant lab abnormalities, going to OR and other pe rtinent info. @ -[Patient continues to have intractable pain despite multiple analgesics, and in addition there is a markedly elevated BNP versus patient's baseline Undiagnosed new problem with uncertain prognosis? @ -[No] Drug Therapy requiring intensive monitoring for toxicity (Heparin, Nitro, Insulin, Cardizem)? @ -[No] Were any procedures done? @ -[No] Diagnosis/symptom? @ -[Intractable lumbar radicular pain. Suspected CHF exacerbation Acute, or Chronic, or Acute on Chronic? @ -Acute Uncomplicated (without systemic symptoms) or Complicated (systemic symptoms)? @ - Uncomplicated Side effects of treatment? @ -[No] Exacerbation, Progression, or Severe Exacerbation? @ -[No] Poses a threat to life or bodily function? How? (Chest pain, USA, AR, pneumonia, PE, COPD, DKA, ARF, appy, cholecystitis, CVA, Diverticulitis, Homicidal, Suicidal, threat to staff... and all critical care pts) @ -[No] - Lab Data Result diagrams: 11/11/23 07:50 11/11/23 07:50 Lab Results 11/07/23 11/07/23 11/07/23 Range/Units 21:56 22:00 22:00 WBC 10.1 (3.8-10.6) k/uL RBC 4.51 (3.80-5.40) m/uL Hgb 8.8 L (11.4-16.0) gm/dL Hct 31.1 L (34.0-46.0) % MCV 68.9 L (80.0-100.0) fL MCH 19.5 L (25.0-35.0) pg MCHC 28.3 L (31.0-37.0) g/dL RDW 17.6 H (11.5-15.5) % Plt Count 471 H (150-450) k/uL MPV 8.6 Neutrophils % 66 % Lymphocytes % 23 % Monocytes % 4 % Eosinophils % 4 % Basophils % 1 % Neutrophils # 6.6 (1.3-7.7) k/uL Lymphocytes # 2.4 (1.0-4.8) k/uL Monocytes # 0.4 (0-1.0) k/uL Eosinophils # 0.4 (0-0.7) k/uL Basophils # 0.1 (0-0.2) k/uL Hypochromasia Marked Poikilocytosis Slight Anisocytosis Slight Microcytosis Marked PT 11.1 (10.0-12.5) sec INR 1.0 (<1.2) APTT 28.3 (22.0-30.0) sec Sodium (137-145) mmol/L Potassium (3.5-5.1) mmol/L Chloride (98-107) mmol/L Carbon Dioxide (22-30) mmol/L Anion Gap mmol/L BUN (7-17) mg/dL Creatinine (0.52-1.04) mg/dL Est GFR (CKD-EPI)AfAm (>60 ml/min/1.73 sqM) Est GFR (CKD-EPI)NonAf (>60 ml/min/1.73 sqM) Glucose (74-99) mg/dL Plasma Lactic Acid Angel (0.7-2.0) mmol/L Calcium (8.4-10.2) mg/dL Total Bilirubin (0.2-1.3) mg/dL AST (14-36) U/L ALT (4-34) U/L Alkaline Phosphatase (38-126) U/L Troponin I (0.000-0.034) ng/mL NT-Pro-B Natriuret Pep pg/mL Total Protein (6.3-8.2) g/dL Albumin (3.5-5.0) g/dL Serum Alcohol mg/dL Influenza Type A (PCR) Not Detected (Not Detectd) Influenza Type B (PCR) Not Detected (Not Detectd) RSV (PCR) Not Detected (Not Detectd) SARS-CoV-2 (PCR) Not Detected (Not Detectd) 11/07/23 11/07/23 11/07/23 Range/Units 22:00 22:00 22:00 WBC (3.8-10.6) k/uL RBC (3.80-5.40) m/uL Hgb (11.4-16.0) gm/dL Hct (34.0-46.0) % MCV (80.0-100.0) fL MCH (25.0-35.0) pg MCHC (31.0-37.0) g/dL RDW (11.5-15.5) % Plt Count (150-450) k/uL MPV Neutrophils % % Lymphocytes % % Monocytes % % Eosinophils % % Basophils % % Neutrophils # (1.3-7.7) k/uL Lymphocytes # (1.0-4.8) k/uL Monocytes # (0-1.0) k/uL Eosinophils # (0-0.7) k/uL Basophils # (0-0.2) k/uL Hypochromasia Poikilocytosis Anisocytosis Microcytosis PT (10.0-12.5) sec INR (<1.2) APTT (22.0-30.0) sec Sodium 135 L (137-145) mmol/L Potassium 4.1 (3.5-5.1) mmol/L Chloride 104 (98-107) mmol/L Carbon Dioxide 19 L (22-30) mmol/L Anion Gap 12 mmol/L BUN 12 (7-17) mg/dL Creatinine 0.63 (0.52-1.04) mg/dL Est GFR (CKD-EPI)AfAm >90 (>60 ml/min/1.73 sqM) Est GFR (CKD-EPI)NonAf 89 (>60 ml/min/1.73 sqM) Glucose 154 H (74-99) mg/dL Plasma Lactic Acid Angel 1.4 (0.7-2.0) mmol/L Calcium 9.2 (8.4-10.2) mg/dL Total Bilirubin 0.5 (0.2-1.3) mg/dL AST 28 (14-36) U/L ALT 29 (4-34) U/L Alkaline Phosphatase 109 (38-126) U/L Troponin I 0.052 H* (0.000-0.034) ng/mL NT-Pro-B Natriuret Pep 5030 pg/mL Total Protein 7.7 (6.3-8.2) g/dL Albumin 4.2 (3.5-5.0) g/dL Serum Alcohol mg/dL Influenza Type A (PCR) (Not Detectd) Influenza Type B (PCR) (Not Detectd) RSV (PCR) (Not Detectd) SARS-CoV-2 (PCR) (Not Detectd) 11/07/23 Range/Units 23:33 WBC (3.8-10.6) k/uL RBC (3.80-5.40) m/uL Hgb (11.4-16.0) gm/dL Hct (34.0-46.0) % MCV (80.0-100.0) fL MCH (25.0-35.0) pg MCHC (31.0-37.0) g/dL RDW (11.5-15.5) % Plt Count (150-450) k/uL MPV Neutrophils % % Lymphocytes % % Monocytes % % Eosinophils % % Basophils % % Neutrophils # (1.3-7.7) k/uL Lymphocytes # (1.0-4.8) k/uL Monocytes # (0-1.0) k/uL Eosinophils # (0-0.7) k/uL Basophils # (0-0.2) k/uL Hypochromasia Poikilocytosis Anisocytosis Microcytosis PT (10.0-12.5) sec INR (<1.2) APTT (22.0-30.0) sec Sodium (137-145) mmol/L Potassium (3.5-5.1) mmol/L Chloride (98-107) mmol/L Carbon Dioxide (22-30) mmol/L Anion Gap mmol/L BUN (7-17) mg/dL Creatinine (0.52-1.04) mg/dL Est GFR (CKD-EPI)AfAm (>60 ml/min/1.73 sqM) Est GFR (CKD-EPI)NonAf (>60 ml/min/1.73 sqM) Glucose (74-99) mg/dL Plasma Lactic Acid Angel (0.7-2.0) mmol/L Calcium (8.4-10.2) mg/dL Total Bilirubin (0.2-1.3) mg/dL AST (14-36) U/L ALT (4-34) U/L Alkaline Phosphatase (38-126) U/L Troponin I (0.000-0.034) ng/mL NT-Pro-B Natriuret Pep pg/mL Total Protein (6.3-8.2) g/dL Albumin (3.5-5.0) g/dL Serum Alcohol <10 mg/dL Influenza Type A (PCR) (Not Detectd) Influenza Type B (PCR) (Not Detectd) RSV (PCR) (Not Detectd) SARS-CoV-2 (PCR) (Not Detectd) Disposition Clinical Impression: CHF (congestive heart failure), Lumbar radicular pain Disposition: ADMITTED IP TO THIS HOSP Condition: Stable Is patient prescribed a controlled substance at d/c from ED?: No
[2023-11-07 22:23] LABS: Anisocytosis Slight; Basophils # (A) 0.1 k/uL (0-0.2); Basophils % (A) 1 %; Eosinophils # (A) 0.4 k/uL (0-0.7); Eosinophils % (A) 4 %; HCT 31.1 % (34.0-46.0); HGB 8.8 gm/dL (11.4-16.0); Hypochromasia Marked; Lymphocytes # (A) 2.4 k/uL (1.0-4.8); Lymphocytes % (A) 23 %; MCH 19.5 pg (25.0-35.0); MCHC 28.3 g/dL (31.0-37.0); MCV 68.9 fL (80.0-100.0); Mean Platelet Volume 8.6; Microcytosis Marked; Monocytes # (A) 0.4 k/uL (0-1.0); Monocytes % (A) 4 %; Neutrophils # (A) 6.6 k/uL (1.3-7.7); Neutrophils % (A) 66 %; Platelet Count 471 k/uL (150-450); Poikilocytosis Slight; RBC 4.51 m/uL (3.80-5.40); RDW 17.6 % (11.5-15.5); WBC 10.1 k/uL (3.8-10.6)
[2023-11-07 22:35] LABS: ALT 29 U/L (4-34); AST 28 U/L (14-36); African American GFR (CKD) >90 (>60 ml/min/1.73 sqM); Albumin 4.2 g/dL (3.5-5.0); Alkaline Phosphatase 109 U/L (38-126); Anion Gap 12 mmol/L; Blood Urea Nitrogen 12 mg/dL (7-17); Calcium 9.2 mg/dL (8.4-10.2); Carbon Dioxide 19 mmol/L (22-30); Chloride 104 mmol/L (98-107); Glucose 154 mg/dL (74-99); Non-African American GFR(CKD) 89 (>60 ml/min/1.73 sqM); Potassium 4.1 mmol/L (3.5-5.1); Sodium 135 mmol/L (137-145); Total Bilirubin 0.5 mg/dL (0.2-1.3); Total Protein 7.7 g/dL (6.3-8.2)
[2023-11-07 22:44] LABS: Partial Thromboplastin Time 28.3 sec (22.0-30.0); Prothrombin Time 11.1 sec (10.0-12.5)
[2023-11-07 22:45] LABS: NT-Pro-B-Type Natriuretic Pept 5030 pg/mL
[2023-11-07] MEDS: SODIUM CHLORIDE 0.9% 500 ML 500 ML IV STA (23:28)
--- NOTE | 2023-11-08 00:11 | XR ---
EXAM: XR Chest, 2 Views CLINICAL HISTORY: ITS.REASON XR Reason: dyspnea TECHNIQUE: Frontal and lateral views of the chest. COMPARISON: No relevant prior studies available. FINDINGS: Lungs: Unremarkable. No consolidation. Pleural space: Unremarkable. No pneumothorax. Heart: Cardiomegaly. Atrial appendage clip. Mediastinum: Unremarkable. Normal mediastinal contour. Bones/joints: Sternotomy wires. No acute fracture. IMPRESSION: No acute findings in the chest.
[2023-11-08] MEDS: traMADol 50 MG TAB PO STA (01:08)
[2023-11-08] MEDS: FUROSEMIDE 10 MG/ML 2 ML VIAL IV STA ×2 (01:12→05:47)
[2023-11-08] MEDS: HYDROcodone/APAP 5-325MG 1 EACH TAB PO STA (01:26)
[2023-11-08] MEDS: MORPHINE SULFATE 4 MG/ML SYRINGE IVP STA (02:42)
[2023-11-08] MEDS: FUROSEMIDE 10 MG/ML 4 ML VIAL IV SCH (05:42)
[2023-11-08 07:12] LABS: Bacteria,Urine Rare /hpf; Hyaline Casts,Urine 7 /lpf (0-2); Mucus,Urine Rare /hpf; RBC,Urine 1 /hpf (0-5); Squamous Epithelial Cell,Urine 5 /hpf (0-4); WBC,Urine 2 /hpf (0-5)
[2023-11-08 07:20] LABS: Appearance,Urine Clear (Clear); Color,Urine Orange
[2023-11-08] MEDS ORDERED: ALBUTEROL NEBULIZED 2.5 MG/3 ML INHALATION PRN (09:08)
[2023-11-08] MEDS ORDERED: DEXTROSE 50% SYRINGE 50 ML IVP PRN ×2 (09:09)
--- NOTE | 2023-11-08 10:27 | P.HPIM ---
History of Present Illness H&P Date: 11/08/23 This is a 73-year-old female patient who presented with concerns of increased cough congestion and wheeze over the past 2-3 days patient also complaining that the coughing has been causing increase lower back pain patient denies falls or injury to back patient states she has chronic back pain. Patient has of significant past medical history for asthma, coronary artery disease, coronary artery bypass graft surgery in 2020, heart failure, COPD, diabetes mellitus, hypo-male child, hyperlipidemia, hypertension, with apnea and daily marijuana use. Chest x-ray completed showing no acute findings in the chest. Influenza, RSV COVID-19 negative. Troponin slightly elevated at 0.052, BNP 5030. At this time patient has been admitted patient started on IV Lasix cardiology service is consulted. Also order x-ray of back to assess for pain. At this time patient reports improvement with shortness of breath. Patient denies nausea vomiting or diarrhea. Patient denies any urinary burning or frequency. Current vital signs temp 98.3, heart rate 85, respiratory rate 18, pressure 106/70 fourth pulse ox 96% on room air. 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 Poly substance abuse "when younger", 07/19/21 admitted for Acute delirium History of Any Multi-Drug Resistant Organisms: None Reported Past Surgical History: Cholecystectomy, Coronary Bypass/CABG, Hernia Repair, Orthopedic Surgery, Tonsillectomy, Tubal Ligation Additional Past Surgical History / Comment(s): LEFT KNEE ARTHROSCOPY, BMT AND MYRINGOPLASTY, umbilical hernia repair, CABG 2020 Past Anesthesia/Blood Transfusion Reactions: No Reported Reaction Additional Past Anesthesia/Blood Transfusion Reaction / Comment(s): STATES AFTER LAST EAR SX (11/2013) HAD SORE MUSCLES AND WAS WEAK FOR 3-4 DAYS Past Psychological History: No Psychological Hx Reported Smoking Status: Former smoker Past Alcohol Use History: None Reported Past Drug Use History: Marijuana - Past Family History Sister(s) Family Medical History: Cancer Brother(s) Family Medical History: Cancer Additional Family Medical History / Comment(s): brother had heart valve replacement Mother Family Medical History: Chest Pain / Angina, Diabetes Mellitus, Hypertension Father History Unknown: Yes Additional Family Medical History / Comment(s): , "had bad lungs" per patient, was a smoker Medications and Allergies Home Medications Medication Instructions Recorded Confirmed Type traMADol HCl [Ultram] 50 mg PO TID PRN 11/04/15 11/08/23 History traZODone HCL [Desyrel] 50 mg PO HS PRN 06/11/23 11/08/23 History Insulin Glargine/Lixisenatide 30 units SQ DAILY 30 Days #1 pen 07/01/23 11/08/23 Rx [Soliqua 100 Unit-33 Mcg/ml Pen] Albuterol Nebulized [Ventolin 2.5 mg INHALATION RT-Q4H PRN 07/22/23 11/08/23 History Nebulized] Ipratropium-Albuterol Nebulize 3 ml INHALATION RT-QID 07/22/23 11/08/23 History [Duoneb 0.5 mg-3 mg/3 ml Soln] Budesonide-Formot 160-4.5 Mcg 2 puff INHALATION RT-BID 30 Days 08/10/23 11/08/23 Rx [Symbicort 160-4.5 Mcg Inhaler] #1 each Aspirin 81 mg PO DAILY #30 tab 10/24/23 11/08/23 Rx Atorvastatin [Lipitor] 40 mg PO DAILY #30 tab 10/24/23 11/08/23 Rx Clopidogrel [Plavix] 75 mg PO DAILY #30 tab 10/24/23 11/08/23 Rx Furosemide [Lasix] 40 mg PO DAILY 30 Days #30 tab 10/24/23 11/08/23 Rx Metoprolol Succinate (ER) [Toprol 25 mg PO BID #60 tab 10/24/23 11/08/23 Rx XL] Spironolactone [Aldactone] 25 mg PO DAILY #30 tab 10/24/23 11/08/23 Rx lisinopriL [Zestril] 2.5 mg PO DAILY #30 tab 10/24/23 11/08/23 Rx Allergies Allergy/AdvReac Type Severity Reaction Status Date / Time cephalexin Allergy Anaphylaxis Verified 11/08/23 07:23 cephalexin monohydrate Allergy Anaphylaxis Verified 11/08/23 07:23 [From Keflex] Sulfa (Sulfonamide Allergy Rash/Hives Verified 11/08/23 07:23 Antibiotics) Physical Exam Vitals: Vital Signs Temp Pulse Resp BP Pulse Ox 11/08/23 09:46 83 20 114/65 93 L 11/08/23 08:31 94 22 111/89 96 11/08/23 06:09 85 18 106/74 96 11/08/23 03:00 93 20 117/64 98 11/08/23 01:53 93 22 108/57 99 11/08/23 00:50 20 11/07/23 21:50 98.3 F 119 H 24 90/54 100 Intake and Output 11/07/23 11/08/23 11/08/23 22:59 06:59 14:59 Other: Weight 85.729 kg Head normocephalic Neck supple Lungs clear to auscultation bilaterally no wheezing or crackles Heart regular rate and rhythm S1-S2, no rub or gallop Abdomen is soft nontender nondistended positive bowel sounds no hepatosplenomegaly Extremities no edema Neuro alert and orientated to 3 Results CBC & Chem 7: 11/07/23 22:00 11/07/23 22:00 Labs: Abnormal Lab Results - Last 24 Hours (Table) 11/07/23 11/07/23 11/07/23 Range/Units 22:00 22:00 22:00 Hgb 8.8 L (11.4-16.0) gm/dL Hct 31.1 L (34.0-46.0) % MCV 68.9 L (80.0-100.0) fL MCH 19.5 L (25.0-35.0) pg MCHC 28.3 L (31.0-37.0) g/dL RDW 17.6 H (11.5-15.5) % Plt Count 471 H (150-450) k/uL Sodium 135 L (137-145) mmol/L Carbon Dioxide 19 L (22-30) mmol/L Glucose 154 H (74-99) mg/dL Troponin I 0.052 H* (0.000-0.034) ng/mL Ur Squamous Epith Cells (0-4) /hpf Urine Bacteria (None) /hpf Hyaline Casts (0-2) /lpf Urine Mucus (None) /hpf 11/08/23 Range/Units 05:56 Hgb (11.4-16.0) gm/dL Hct (34.0-46.0) % MCV (80.0-100.0) fL MCH (25.0-35.0) pg MCHC (31.0-37.0) g/dL RDW (11.5-15.5) % Plt Count (150-450) k/uL Sodium (137-145) mmol/L Carbon Dioxide (22-30) mmol/L Glucose (74-99) mg/dL Troponin I (0.000-0.034) ng/mL Ur Squamous Epith Cells 5 H (0-4) /hpf Urine Bacteria Rare H (None) /hpf Hyaline Casts 7 H (0-2) /lpf Urine Mucus Rare H (None) /hpf Assessment and Plan Assessment: Acute on chronic systolic CHF exacerbation back pain. Will order x-ray to rule out fracture Cardiomyopathy with an EF of 30-35% History of non-STEMI in September 2023 status post cardiac cath showing 80% stenosis of the PDA stent patient on a candidate for PCI at that time History of coronary artery disease status post CABG diabetes mellitus type 2 history of essential hypertension history of hyperlipidemia history of osteoarthritis History of fibromyalgia history of sleep apnea DVT prophylaxis Lovenox. GI prophylaxis Protonix Cardiology services consulted Patient started on IV Lasix X-ray of back ordered Repeat labs ordered Time with Patient: Greater than 30 (Greater than 60% of the total time spent in counseling and coordination of care)
--- NOTE | 2023-11-08 12:04 | XR ---
EXAMINATION TYPE: XR spine complete AP and Lat DATE OF EXAM: 11/08/2023 11:25 AM CLINICAL INDICATION:Female, 73 years old with history of pain; PHH COMPARISON: None TECHNIQUE: XR spine complete AP and Lat views of the spine in Frontal and lateral projections. FINDINGS: No evidence of acute fracture. There is scattered multilevel disk space narrowing without loss of ve rtebral body height. There is normal alignment of the vertebral bodies. Scattered osteophyte formatio n along the anterior and lateral aspects of the vertebral bodies. Neural foramen are patent given rose itations of this exam. Spinal canal appears patent. Atherosclerosis of the arterial vasculature. Like ly calcified fibroid. Left atrial appendage occlusion device. Sternotomy changes with surgical clips. Right upper quadrant course thickening clips. IMPRESSION: 1. No acute osseous pathology. 2. Mild to moderate degeneration changes throughout spine.
[2023-11-08] MEDS: INSULIN ASPART (NovoLOG) 100 UNIT/ML VIAL SQ SCH (12:58)
[2023-11-08 13:13] LABS: Glucose,Whole Blood 148 mg/dL (70-110)
[2023-11-08] MEDS: IPRATROPIUM-ALBUTEROL 3 ML NEB INHALATION SCH (13:57)
[2023-11-08 17:20] LABS: Glucose,Whole Blood 199 mg/dL (70-110)
[2023-11-08 20:01] LABS: Glucose,Whole Blood 199 mg/dL (70-110)
[2023-11-08] MEDS: METOPROLOL SUCCINATE (ER) 25 MG TAB.ER.24H PO SCH (20:36)
[2023-11-08] MEDS: traMADol 50 MG TAB PO PRN (20:36)
[2023-11-08] MEDS: SYMBICORT 160-4.5 MCG INHALER INHALATION SCH (21:45)
[2023-11-09 06:00] LABS: Glucose,Whole Blood 152 mg/dL (70-110)
[2023-11-09] MEDS: PANTOPRAZOLE 40 MG TABLET PO SCH (06:42)
[2023-11-09 08:45] LABS: Anisocytosis Slight; Basophils % (A) 1 %; Eosinophils # (A) 0.4 k/uL (0-0.7); Eosinophils % (A) 6 %; HCT 30.6 % (34.0-46.0); HGB 8.9 gm/dL (11.4-16.0); Hypochromasia Marked; Lymphocytes # (A) 1.9 k/uL (1.0-4.8); Lymphocytes % (A) 30 %; MCH 19.6 pg (25.0-35.0); MCHC 29.1 g/dL (31.0-37.0); MCV 67.2 fL (80.0-100.0); Mean Platelet Volume 8.1; Microcytosis Marked; Monocytes # (A) 0.4 k/uL (0-1.0); Monocytes % (A) 7 %; Neutrophils # (A) 3.3 k/uL (1.3-7.7); Neutrophils % (A) 54 %; Platelet Count 393 k/uL (150-450); Poikilocytosis Slight; RBC 4.56 m/uL (3.80-5.40); RDW 17.8 % (11.5-15.5); WBC 6.2 k/uL (3.8-10.6)
[2023-11-09] MEDS: CLOPIDOGREL 75 MG TAB PO SCH (08:51)
[2023-11-09] MEDS: ATORVASTATIN 40 MG TAB PO SCH (08:51)
[2023-11-09] MEDS: SPIRONOLACTONE 25 MG TAB PO SCH (08:51)
[2023-11-09] MEDS: ASPIRIN 81 MG PO SCH (08:51)
[2023-11-09] MEDS: ENOXAPARIN 40 MG/0.4 ML SYRINGE SQ SCH (08:52)
[2023-11-09 09:08] LABS: ALT 27 U/L (4-34); AST 26 U/L (14-36); African American GFR (CKD) >90 (>60 ml/min/1.73 sqM); Albumin 3.5 g/dL (3.5-5.0); Alkaline Phosphatase 113 U/L (38-126); Anion Gap 8 mmol/L; Blood Urea Nitrogen 13 mg/dL (7-17); Calcium 8.8 mg/dL (8.4-10.2); Carbon Dioxide 25 mmol/L (22-30); Chloride 106 mmol/L (98-107); Glucose 126 mg/dL (74-99); Non-African American GFR(CKD) >90 (>60 ml/min/1.73 sqM); Potassium 4.2 mmol/L (3.5-5.1); Sodium 139 mmol/L (137-145); Total Bilirubin 0.4 mg/dL (0.2-1.3); Total Protein 6.5 g/dL (6.3-8.2)
[2023-11-09 11:38] LABS: Glucose,Whole Blood 190 mg/dL (70-110)
[2023-11-09 11:49] VITALS: BMI 34.5
[2023-11-09 16:38] LABS: Glucose,Whole Blood 161 mg/dL (70-110)
[2023-11-09 20:09] LABS: Glucose,Whole Blood 147 mg/dL (70-110)
[2023-11-10 06:18] LABS: Glucose,Whole Blood 190 mg/dL (70-110)
[2023-11-10 07:17] LABS: Anisocytosis Slight; Basophils # (A) 0.1 k/uL (0-0.2); Basophils % (A) 1 %; Eosinophils # (A) 0.3 k/uL (0-0.7); Eosinophils % (A) 4 %; HCT 31.8 % (34.0-46.0); HGB 9.2 gm/dL (11.4-16.0); Hypochromasia Marked; Lymphocytes # (A) 1.9 k/uL (1.0-4.8); Lymphocytes % (A) 26 %; MCH 19.5 pg (25.0-35.0); MCHC 28.9 g/dL (31.0-37.0); MCV 67.6 fL (80.0-100.0); Mean Platelet Volume 7.5; Microcytosis Marked; Monocytes # (A) 0.4 k/uL (0-1.0); Monocytes % (A) 5 %; Neutrophils # (A) 4.6 k/uL (1.3-7.7); Neutrophils % (A) 62 %; Platelet Count 368 k/uL (150-450); Poikilocytosis Slight; RDW 17.9 % (11.5-15.5); WBC 7.4 k/uL (3.8-10.6)
[2023-11-10 07:27] LABS: ALT 24 U/L (4-34); AST 20 U/L (14-36); African American GFR (CKD) >90 (>60 ml/min/1.73 sqM); Albumin 3.6 g/dL (3.5-5.0); Alkaline Phosphatase 114 U/L (38-126); Anion Gap 8 mmol/L; Blood Urea Nitrogen 14 mg/dL (7-17); Calcium 9.2 mg/dL (8.4-10.2); Carbon Dioxide 25 mmol/L (22-30); Chloride 104 mmol/L (98-107); Glucose 179 mg/dL (74-99); Non-African American GFR(CKD) 90 (>60 ml/min/1.73 sqM); Potassium 4.6 mmol/L (3.5-5.1); Sodium 137 mmol/L (137-145); Total Bilirubin 0.5 mg/dL (0.2-1.3); Total Protein 6.7 g/dL (6.3-8.2)
[2023-11-10] MEDS: lisinopriL 5 MG TAB PO SCH (08:48)
[2023-11-10] MEDS: SODIUM FERRIC GLUCONAT-SUCROSE 125 MG in SODIUM CHLORIDE 0.9% 100 ML IVPB ONE (08:48)
--- NOTE | 2023-11-10 10:05 | P.PN ---
Subjective Progress Note Date: 11/09/23 This is a 73-year-old female patient who presented with concerns of increased cough congestion and wheeze over the past 2-3 days patient also complaining that the coughing has been causing increase lower back pain patient denies falls or injury to back patient states she has chronic back pain. Patient has of significant past medical history for asthma, coronary artery disease, coronary artery bypass graft surgery in 2020, heart failure, COPD, diabetes mellitus, hypo-male child, hyperlipidemia, hypertension, with apnea and daily marijuana use. Chest x-ray completed showing no acute findings in the chest. Influenza, RSV COVID-19 negative. Troponin slightly elevated at 0.052, BNP 5030. At this time patient has been admitted patient started on IV Lasix cardiology service is consulted. Also order x-ray of back to assess for pain. At this time patient reports improvement with shortness of breath. Patient denies nausea vomiting or diarrhea. Patient denies any urinary burning or frequency. Current vital signs temp 98.3, heart rate 85, respiratory rate 18, pressure 106/70 fourth pulse ox 96% on room air. On 11/09/2023 patient's alert and oriented 3. Patient remains on IV Lasix. S pine x-ray completed showing no acute osseous pathology mild to moderate degenerative changes throughout spine. Cardiology services are following. Patient denies chest pain. Patient reports improvement shortness breath. Patient denies nausea vomiting and diarrhea. Patient denies any urinary burning or frequency Objective - Vital Signs Vital signs: Vital Signs Temp 98.6 F 11/09/23 03:58 Pulse 95 11/09/23 12:00 Resp 16 11/09/23 12:00 BP 98/64 11/09/23 12:00 Pulse Ox 97 11/09/23 08:00 FiO2 Intake & Output 11/08/23 11/09/23 11/09/23 18:59 06:59 18:59 Intake Total 360 Balance 360 Weight 85.729 kg 85.729 kg Intake: Oral 360 Other: Voiding Method Toilet Toilet # Voids 1 - Exam Head normocephalic Neck supple Lungs clear to auscultation bilaterally no wheezing or crackles Heart regular rate and rhythm S1-S2, no rub or gallop Abdomen is soft nontender nondistended positive bowel sounds no hepatosplenomegaly Extremities no edema Neuro alert and orientated to 3 - Labs CBC & Chem 7: 11/10/23 06:35 11/10/23 06:35 Labs: Abnormal Lab Results - Last 24 Hours (Table) 11/08/23 11/08/23 11/09/23 Range/Units 17:15 19:57 05:59 Hgb (11.4-16.0) gm/dL Hct (34.0-46.0) % MCV (80.0-100.0) fL MCH (25.0-35.0) pg MCHC (31.0-37.0) g/dL RDW (11.5-15.5) % Glucose (74-99) mg/dL POC Glucose (mg/dL) 199 H 199 H 152 H (70-110) mg/dL Hemoglobin A1c (<=6.0) % 11/09/23 11/09/23 11/09/23 Range/Units 07:21 07:21 07:21 Hgb 8.9 L (11.4-16.0) gm/dL Hct 30.6 L (34.0-46.0) % MCV 67.2 L (80.0-100.0) fL MCH 19.6 L (25.0-35.0) pg MCHC 29.1 L (31.0-37.0) g/dL RDW 17.8 H (11.5-15.5) % Glucose 126 H (74-99) mg/dL POC Glucose (mg/dL) (70-110) mg/dL Hemoglobin A1c 7.1 H (<=6.0) % 11/09/23 Range/Units 11:36 Hgb (11.4-16.0) gm/dL Hct (34.0-46.0) % MCV (80.0-100.0) fL MCH (25.0-35.0) pg MCHC (31.0-37.0) g/dL RDW (11.5-15.5) % Glucose (74-99) mg/dL POC Glucose (mg/dL) 190 H (70-110) mg/dL Hemoglobin A1c (<=6.0) % Assessment and Plan Plan: Acute on chronic systolic CHF exacerbation back pain. Will order x-ray to rule out fracture Cardiomyopathy with an EF of 30-35% History of non-STEMI in September 2023 status post cardiac cath showing 80% stenosis of the PDA stent patient on a candidate for PCI at that time History of coronary artery disease status post CABG diabetes mellitus type 2 history of essential hypertension history of hyperlipidemia history of osteoarthritis History of fibromyalgia history of sleep apnea DVT prophylaxis Lovenox. GI prophylaxis Protonix Cardiology services consulted Patient started on IV Lasix X-ray of back completed Repeat labs ordered
--- NOTE | 2023-11-10 10:27 | P.PN ---
Subjective Progress Note Date: 11/10/23 This is a 73-year-old female patient who presented with concerns of increased cough congestion and wheeze over the past 2-3 days patient also complaining that the coughing has been causing increase lower back pain patient denies falls or injury to back patient states she has chronic back pain. Patient has of significant past medical history for asthma, coronary artery disease, coronary artery bypass graft surgery in 2020, heart failure, COPD, diabetes mellitus, hypo-male child, hyperlipidemia, hypertension, with apnea and daily marijuana use. Chest x-ray completed showing no acute findings in the chest. Influenza, RSV COVID-19 negative. Troponin slightly elevated at 0.052, BNP 5030. At this time patient has been admitted patient started on IV Lasix cardiology service is consulted. Also order x-ray of back to assess for pain. At this time patient reports improvement with shortness of breath. Patient denies nausea vomiting or diarrhea. Patient denies any urinary burning or frequency. Current vital signs temp 98.3, heart rate 85, respiratory rate 18, pressure 106/70 fourth pulse ox 96% on room air. On 11/09/2023 patient's alert and oriented 3. Patient remains on IV Lasix. S pine x-ray completed showing no acute osseous pathology mild to moderate degenerative changes throughout spine. Cardiology services are following. Patient denies chest pain. Patient reports improvement shortness breath. Patient denies nausea vomiting and diarrhea. Patient denies any urinary burning or frequency On 11/10/2023 patient's alert and oriented 3. Patient remains on IV Lasix. Lisinopril adjusted per cardiology. Patient denies chest pain or shortness breath. Patient denies nausea vomiting or diarrhea. Patient denies any urinary burning or frequency. Anticipate discharge in the next 24-48 hours Objective - Vital Signs Vital signs: Vital Signs Temp 98.3 F 11/10/23 08:00 Pulse 82 11/10/23 09:24 Resp 16 11/10/23 08:00 BP 113/56 11/10/23 08:00 Pulse Ox 95 11/10/23 08:00 FiO2 Intake & Output 11/09/23 11/10/23 11/10/23 18:59 06:59 18:59 Intake Total 540 120 Balance 540 120 Weight 85.729 kg Intake: Oral 540 120 Other: Voiding Method Toilet Toilet # Voids 1 2 - Exam Head normocephalic Neck supple Lungs clear to auscultation bilaterally no wheezing or crackles Heart regular rate and rhythm S1-S2, no rub or gallop Abdomen is soft nontender nondistended positive bowel sounds no hepatosplenomegaly Extremities no edema Neuro alert and orientated to 3 - Labs CBC & Chem 7: 11/10/23 06:35 11/10/23 06:35 Labs: Abnormal Lab Results - Last 24 Hours (Table) 11/09/23 11/09/23 11/09/23 Range/Units 07:21 11:36 16:36 Hgb (11.4-16.0) gm/dL Hct (34.0-46.0) % MCV (80.0-100.0) fL MCH (25.0-35.0) pg MCHC (31.0-37.0) g/dL RDW (11.5-15.5) % Glucose (74-99) mg/dL POC Glucose (mg/dL) 190 H 161 H (70-110) mg/dL Hemoglobin A1c 7.1 H (<=6.0) % 11/09/23 11/10/23 11/10/23 Range/Units 20:08 06:16 06:35 Hgb 9.2 L (11.4-16.0) gm/dL Hct 31.8 L (34.0-46.0) % MCV 67.6 L (80.0-100.0) fL MCH 19.5 L (25.0-35.0) pg MCHC 28.9 L (31.0-37.0) g/dL RDW 17.9 H (11.5-15.5) % Glucose (74-99) mg/dL POC Glucose (mg/dL) 147 H 190 H (70-110) mg/dL Hemoglobin A1c (<=6.0) % 11/10/23 Range/Units 06:35 Hgb (11.4-16.0) gm/dL Hct (34.0-46.0) % MCV (80.0-100.0) fL MCH (25.0-35.0) pg MCHC (31.0-37.0) g/dL RDW (11.5-15.5) % Glucose 179 H (74-99) mg/dL POC Glucose (mg/dL) (70-110) mg/dL Hemoglobin A1c (<=6.0) % Assessment and Plan Plan: Acute on chronic systolic CHF exacerbation back pain. Will order x-ray to rule out fracture Cardiomyopathy with an EF of 30-35% History of non-STEMI in September 2023 status post cardiac cath showing 80% stenosis of the PDA stent patient on a candidate for PCI at that time History of coronary artery disease status post CABG diabetes mellitus type 2 history of essential hypertension history of hyperlipidemia history of osteoarthritis History of fibromyalgia history of sleep apnea DVT prophylaxis Lovenox. GI prophylaxis Protonix Cardiology services consulted Patient started on IV Lasix X-ray of back completed Repeat labs ordered
[2023-11-10 11:37] LABS: Glucose,Whole Blood 167 mg/dL (70-110)
--- NOTE | 2023-11-10 11:39 | P.CRDCN ---
History of Present Illness Consult date: 11/10/23 Consult reason: congestive heart failure History of present illness: History of present illness: This is a 73-year-old female with past medical history of hypertension, diabetes, hyperlipidemia, coronary artery disease status post bypass surgery and stents, chronic systolic blood pressure with known EF of 30 to 35%. Patient was recently hospitalized in September 2023 at which time she was treated for a non- ST elevated myocardial infarction status post cardiac catheterization finding 80% in-stent stenosis of the proximal PDA stent, patent SIMPSON to LAD and sequential to ramus. No occluded radial graft from SIMPSON to OM. Elevated LVEDP. It was decided that medical management would be utillized. We have been asked to evaluate the patient for heart failure. Patient states her shortness of breath that has been getting worse and her grandson was concerned and brought her into the hospital. She denies having any cough, no chest pain, no difficulty taking a deep breath. She states she can lay flat without any difficulty. No shortness of breath. She is not sure if she is improved since she was last hospitalized . She states her lower extremity edema is much improved. Discussed case with attending and patient is cleared for discharge. EKG sinus tachycardia with left bundle branch block, ventricular rate 114 bpm. Compared to EKG in September. Telemetry is sinus rhythm Chest x-ray: No acute process WBC 7.4, hemoglobin 9.2, platelet count 368. Electrolytes and renal function are normal. Blood sugar 179. Liver function test are normal. Troponin 0.052. proBNP 5030. Alcohol level less than 10. Influenza A, influenza B, RSV, COVID- 19 not detected. Home cardiac medications: Aspirin 81 mg daily, atorvastatin 40 mg daily, Plavix 75 mg daily, Lasix 40 mg daily, lisinopril 2.5 mg daily, Toprol-XL 25 mg twice daily, spironolactone 25 mg daily. Echocardiogram performed 10/19/2023 revealed mildly increased left ventricular wall thickness. EF 35%. Moderate mitral regurgitation, moderate aortic valve calcification without significant stenosis. Mild aortic regurgitation. Mild to moderate tricuspid regurgitation. RVSP 32. CABG 09/2021, SIMPSON to LAD and intermediate T graft left radial artery graft to first obtuse marginal, ligation of left atrial appendage. PCI 12/09/[address] Grewal: In the setting of a non-ST elevated MN cardiac catheterization revealed radial graft to OM occluded and OM appearing small caliber and subtotally occluded with progression of PDA. Patient underwent PCI of the PDA. Cardiac catheterization 10/18/[address] More revealed 80% in-stent stenosis of the proximal PDA stent. Patent SIMPSON to LAD and sequential to ramus. Known occluded radial graft from SIMPSON to OM. Elevated LVEDP. It was determined that patient was not best candidate for PCI and aggressive medical therapy was advised. Review Of Systems: At the time of my evaluation: Constitutional: No fever, no chills. No weakness, fatigue or lethargy. EENT: No headache. No dizziness. Lungs: No shortness of breath, cough, no sputum production. No wheezing. Cardiovascular: No chest pain, no lower extremity edema. No palpitations. No paroxysmal nocturnal dyspnea. No orthopnea. No lightheadedness or dizziness. No syncopal episodes. Abdominal: No abdominal pain. No nausea, vomiting. No diarrhea. No constipation. No bloody or tarry stools. Genitourinary: No dysuria.. No urinary retention. Musculoskeletal: No myalgias. No muscle weakness, no frequent falls. No back pain. No neck pain. Integumentary: No wounds. No rash. No unusual bruising. Neurologic: No aphasia. No facial droop. No change in mentation. No head injury. No headache. Physical examination: Gen: This is a 73-year-old female appears to be in no acute distress. VS: reviewed blood pressure 126/66, heart rate 83. HEENT: Head is atraumatic, normocephalic. Pupils equal, round. Sclerae is anicteric. NECK: Supple. + JVD. LUNGS: Clear to auscultation. No wheezes or rhonchi. No intercostal retractions. HEART: Irregular rate and rhythm. No murmur. ABDOMEN: Soft No tenderness. EXTREMITIES: Mild pedal edema. Chronic lymphedema no calf tenderness. NEUROLOGICAL: Patient is awake, alert and oriented x3. Assessment: Acute on chronic systolic heart failure Hypertension Hyperlipidemia Coronary artery disease with previous CABG and stents Anemia Plan: Resume patient's home cardiac medications Increase lisinopril to 5 mg daily 1 dose of IV Ferrlecit to be infused and then start patient on oral ferrous sulfate daily Patient was started on IV Lasix 40 mg every 12 hours may be transition to oral 40 mg daily Patient is cleared from cardiology for discharge home and may follow-up in the office in 1-2 weeks Further recommendations to follow based upon clinical course Thank you kindly for this consultation. Nurse practitioner note has been reviewed, I agree with documented findings and plan of care. Patient was seen and examined. 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 Poly substance abuse "when younger", 07/19/21 admitted for Acute delirium History of Any Multi-Drug Resistant Organisms: None Reported Past Surgical History: Cholecystectomy, Coronary Bypass/CABG, Hernia Repair, Orthopedic Surgery, Tonsillectomy, Tubal Ligation Additional Past Surgical History / Comment(s): LEFT KNEE ARTHROSCOPY, BMT AND MYRINGOPLASTY, umbilical hernia repair, CABG 2020 Past Anesthesia/Blood Transfusion Reactions: No Reported Reaction Additional Past Anesthesia/Blood Transfusion Reaction / Comment(s): STATES AFTER LAST EAR SX (11/2013) HAD SORE MUSCLES AND WAS WEAK FOR 3-4 DAYS Past Psychological History: No Psychological Hx Reported Smoking Status: Former smoker Past Alcohol Use History: None Reported Additional Past Alcohol Use History / Comment(s): SMOKED 1PPD, SMOKED 10 YEARS . QUIT SMOKING 30 YRS AGO OR MORE. Past Drug Use History: Marijuana Additional Drug Use History / Comment(s): Patient admitted 07/16/21 positive for methamphetamines, amphetamines, benzos, opiates, and marijuana. Patient states she was evicted from her apartment about 2 weeks ago because her son was arrested "for selling drugs" per patient. Pt states she has not done drugs in a couple years now. Patient states they did not live together and she doesnt know why she was - Past Family History Sister(s) Family Medical History: Cancer Brother(s) Family Medical History: Cancer Additional Family Medical History / Comment(s): brother had heart valve replacement Mother Family Medical History: Chest Pain / Angina, Diabetes Mellitus, Hypertension Father History Unknown: Yes Additional Family Medical History / Comment(s): , "had bad lungs" per patient, was a smoker Medications and Allergies Home Medications Medication Instructions Recorded Confirmed Type traMADol HCl [Ultram] 50 mg PO TID PRN 11/04/15 11/08/23 History traZODone HCL [Desyrel] 50 mg PO HS PRN 06/11/23 11/08/23 History Insulin Glargine/Lixisenatide 30 units SQ DAILY 30 Days #1 pen 07/01/23 11/08/23 Rx [Soliqua 100 Unit-33 Mcg/ml Pen] Albuterol Nebulized [Ventolin 2.5 mg INHALATION RT-Q4H PRN 07/22/23 11/08/23 History Nebulized] Ipratropium-Albuterol Nebulize 3 ml INHALATION RT-QID 07/22/23 11/08/23 History [Duoneb 0.5 mg-3 mg/3 ml Soln] Budesonide-Formot 160-4.5 Mcg 2 puff INHALATION RT-BID 30 Days 08/10/23 11/08/23 Rx [Symbicort 160-4.5 Mcg Inhaler] #1 each Aspirin 81 mg PO DAILY #30 tab 10/24/23 11/08/23 Rx Atorvastatin [Lipitor] 40 mg PO DAILY #30 tab 10/24/23 11/08/23 Rx Clopidogrel [Plavix] 75 mg PO DAILY #30 tab 10/24/23 11/08/23 Rx Furosemide [Lasix] 40 mg PO DAILY 30 Days #30 tab 10/24/23 11/08/23 Rx Metoprolol Succinate (ER) [Toprol 25 mg PO BID #60 tab 10/24/23 11/08/23 Rx XL] Spironolactone [Aldactone] 25 mg PO DAILY #30 tab 10/24/23 11/08/23 Rx lisinopriL [Zestril] 2.5 mg PO DAILY #30 tab 10/24/23 11/08/23 Rx Allergies Allergy/AdvReac Type Severity Reaction Status Date / Time cephalexin Allergy Anaphylaxis Verified 11/08/23 07:23 cephalexin monohydrate Allergy Anaphylaxis Verified 11/08/23 07:23 [From Keflex] Sulfa (Sulfonamide Allergy Rash/Hives Verified 11/08/23 07:23 Antibiotics) Physical Exam Vitals: Vital Signs Temp Pulse Pulse Resp BP Pulse Ox 11/10/23 04:00 97.6 F 83 16 126/66 99 11/10/23 00:00 97.6 F 79 16 100/61 99 11/09/23 20:26 84 11/09/23 20:16 84 11/09/23 20:00 97.7 F 82 16 93/58 97 11/09/23 16:00 82 16 88/56 98 11/09/23 15:33 92 11/09/23 15:09 88 11/09/23 12:00 95 16 98/64 11/09/23 11:42 96 11/09/23 11:32 92 11/09/23 08:23 84 11/09/23 08:08 80 11/09/23 08:00 101 H 16 91/57 97 Intake and Output 11/09/23 11/10/23 11/10/23 22:59 06:59 14:59 Intake Total 180 Balance 180 Intake: Oral 180 Other: Voiding Method Toilet Toilet # Voids 2 2 Results 11/10/23 06:35 11/10/23 06:35 Cardiac Enzymes 11/09/23 11/10/23 Range/Units 07:21 06:35 AST 26 20 (14-36) U/L CBC 11/09/23 11/10/23 Range/Units 07:21 06:35 WBC 6.2 7.4 (3.8-10.6) k/uL RBC 4.56 4.70 (3.80-5.40) m/uL Hgb 8.9 L 9.2 L (11.4-16.0) gm/dL Hct 30.6 L 31.8 L (34.0-46.0) % Plt Count 393 368 (150-450) k/uL Comprehensive Metabolic Panel 11/09/23 11/10/23 Range/Units 07:21 06:35 Sodium 139 137 (137-145) mmol/L Potassium 4.2 4.6 (3.5-5.1) mmol/L Chloride 106 104 (98-107) mmol/L Carbon Dioxide 25 25 (22-30) mmol/L BUN 13 14 (7-17) mg/dL Creatinine 0.60 0.62 (0.52-1.04) mg/dL Glucose 126 H 179 H (74-99) mg/dL Calcium 8.8 9.2 (8.4-10.2) mg/dL AST 26 20 (14-36) U/L ALT 27 24 (4-34) U/L Alkaline Phosphatase 113 114 (38-126) U/L Total Protein 6.5 6.7 (6.3-8.2) g/dL Albumin 3.5 3.6 (3.5-5.0) g/dL Current Medications Generic Name Dose Route Start Last Admin Trade Name Freq PRN Reason Stop Dose Admin Albuterol Sulfate 2.5 mg 11/08/23 09:08 Albuterol Nebulized 2.5 Mg/3 Ml INHALATION RT-Q4H PRN Shortness Of Breath Albuterol/Ipratropium 3 ml 11/08/23 12:00 11/09/23 20:16 Ipratropium-Albuterol 3 Ml Neb INHALATION 3 ml RT-QID DIMA Administration Aspirin 81 mg 11/09/23 09:00 11/09/23 08:51 Aspirin 81 Mg PO 81 mg DAILY DIMA Administration Atorvastatin Calcium 40 mg 11/09/23 09:00 11/09/23 08:51 Atorvastatin 40 Mg Tab PO 40 mg DAILY DIMA Administration Budesonide/Formoterol Fumarate 2 puff 11/08/23 20:00 11/09/23 20:15 Symbicort 160-4.5 Mcg Inhaler INHALATION 2 puff RT-BID DIMA Administration Clopidogrel Bisulfate 75 mg 11/09/23 09:00 11/09/23 08:51 Clopidogrel 75 Mg Tab PO 75 mg DAILY DIMA Administration Dextrose/Water 25 ml 11/08/23 09:09 Dextrose 50% Syringe 50 Ml IVP PER PROTOCOL PRN Hypoglycemia Protocol Dextrose/Water 50 ml 11/08/23 09:09 Dextrose 50% Syringe 50 Ml IVP PER PROTOCOL PRN Hypoglycemia Protocol Enoxaparin Sodium 40 mg 11/09/23 09:00 11/09/23 08:52 Enoxaparin 40 Mg/0.4 Ml Syringe SQ 40 mg DAILY DIMA Administration Furosemide 40 mg 11/08/23 05:30 11/10/23 06:41 Furosemide 10 Mg/Ml 4 Ml Vial IV 40 mg Q12H DIMA Administration Insulin Aspart 0 unit 11/08/23 12:30 11/10/23 06:41 Insulin Aspart (Novolog) 100 Unit/Ml Vial SQ 2 unit ACHS DIMA Administration Protocol Lisinopril 2.5 mg 11/09/23 09:00 11/09/23 08:51 Lisinopril 2.5 Mg Tab PO 2.5 mg DAILY DIMA Administration Metoprolol Succinate 25 mg 11/08/23 21:00 11/09/23 20:34 Metoprolol Succinate (Er) 25 Mg Tab.Er.24h PO 25 mg BID DIMA Administration Pantoprazole Sodium 40 mg 11/09/23 07:30 11/10/23 06:41 Pantoprazole 40 Mg Tablet PO 40 mg [id number] DIMA Administration Sodium Chloride 10 ml 11/08/23 09:00 11/09/23 20:36 Sodium Chloride 0.9% Flush 10 Ml Syringe IV 10 ml BID DIMA Administration Spironolactone 25 mg 11/09/23 09:00 11/09/23 08:51 Spironolactone 25 Mg Tab PO 25 mg DAILY DIMA Administration Tramadol HCl 50 mg 11/08/23 09:08 11/08/23 20:36 Tramadol 50 Mg Tab PO 50 mg TID PRN Administration Pain Trazodone HCl 50 mg 11/08/23 09:08 Trazodone Hcl 50 Mg Tab PO HS PRN Insomnia Intake and Output 11/09/23 11/10/23 11/10/23 22:59 06:59 14:59 Intake Total 180 Balance 180 Intake: Oral 180 Other: Voiding Method Toilet Toilet # Voids 2 2 11/10/23 06:35 11/10/23 06:35
[2023-11-10 15:53] LABS: % Iron Saturation 5.54 (12.00-45.00)
[2023-11-10 16:26] LABS: Glucose,Whole Blood 179 mg/dL (70-110)
[2023-11-10 20:00] LABS: Glucose,Whole Blood 177 mg/dL (70-110)
[2023-11-10] MEDS: traZODone HCL 50 MG TAB PO PRN (23:16)
[2023-11-11 06:23] LABS: Glucose,Whole Blood 177 mg/dL (70-110)
[2023-11-11 09:01] LABS: Anisocytosis Slight; Basophils # (A) 0.1 k/uL (0-0.2); Basophils % (A) 1 %; Eosinophils # (A) 0.3 k/uL (0-0.7); Eosinophils % (A) 3 %; HCT 31.7 % (34.0-46.0); HGB 9.2 gm/dL (11.4-16.0); Hypochromasia Marked; Lymphocytes # (A) 1.8 k/uL (1.0-4.8); Lymphocytes % (A) 20 %; MCH 19.4 pg (25.0-35.0); MCHC 28.9 g/dL (31.0-37.0); MCV 67.1 fL (80.0-100.0); Mean Platelet Volume 7.4; Microcytosis Marked; Monocytes # (A) 0.5 k/uL (0-1.0); Monocytes % (A) 5 %; Neutrophils % (A) 69 %; Platelet Count 383 k/uL (150-450); Poikilocytosis Slight; RBC 4.72 m/uL (3.80-5.40); RDW 18.1 % (11.5-15.5); WBC 8.7 k/uL (3.8-10.6)
[2023-11-11 09:32] LABS: ALT 22 U/L (4-34); AST 20 U/L (14-36); African American GFR (CKD) >90 (>60 ml/min/1.73 sqM); Albumin 3.9 g/dL (3.5-5.0); Alkaline Phosphatase 123 U/L (38-126); Anion Gap 11 mmol/L; Blood Urea Nitrogen 22 mg/dL (7-17); Carbon Dioxide 22 mmol/L (22-30); Chloride 100 mmol/L (98-107); Glucose 176 mg/dL (74-99); Non-African American GFR(CKD) 86 (>60 ml/min/1.73 sqM); Potassium 4.2 mmol/L (3.5-5.1); Sodium 133 mmol/L (137-145); Total Bilirubin 0.4 mg/dL (0.2-1.3); Total Protein 7.1 g/dL (6.3-8.2)
[2023-11-11 09:44] VITALS: BP 104/64; PULSE 73; RESP 16; TEMP 98.2
--- NOTE | 2023-11-11 09:58 | P.DS ---
Providers Date of admission: 11/08/23 04:53 Expected date of discharge: 11/11/23 Attending physician: Surinder Rodríguez Consults: 11/09/23 13:53 Consult Physician Routine Consulting Provider: Jairo Lantigua Consult Reason/Comments: CHF Do you want consulting provider notified?: Yes Primary care physician: Surinder Marcos [facility] Course: Discharge diagnosis Acute on chronic systolic CHF exacerbation back pain. Will order x-ray to rule out fracture Cardiomyopathy with an EF of 30-35% History of non-STEMI in September 2023 status post cardiac cath showing 80% stenosis of the PDA stent patient on a candidate for PCI at that time History of coronary artery disease status post CABG diabetes mellitus type 2 history of essential hypertension history of hyperlipidemia history of osteoarthritis History of fibromyalgia history of sleep apnea Hospital course This is a 73-year-old female patient who presented with concerns of increased cough congestion and wheeze over the past 2-3 days patient also complaining that the coughing has been causing increase lower back pain patient denies falls or injury to back patient states she has chronic back pain. Patient has of significant past medical history for asthma, coronary artery disease, coronary artery bypass graft surgery in 2020, heart failure, COPD, diabetes mellitus, hypo-male child, hyperlipidemia, hypertension, with apnea and daily marijuana use. Chest x-ray completed showing no acute findings in the chest. Influenza, RSV COVID-19 negative. Troponin slightly elevated at 0.052, BNP 5030. At this time patient has been admitted patient started on IV Lasix cardiology service is consulted. Also order x-ray of back to assess for pain. At this time patient reports improvement with shortness of breath. Patient denies nausea vomiting or diarrhea. Patient denies any urinary burning or frequency. Current vital signs temp 98.3, heart rate 85, respiratory rate 18, pressure 106/70 fourth pulse ox 96% on room air. On 11/09/2023 patient's alert and oriented 3. Patient remains on IV Lasix. Spine x-ray completed showing no acute osseous pathology mild to moderate degenerative changes throughout spine. Cardiology services are following. Patient denies chest pain. Patient reports improvement shortness breath. Patient denies nausea vomiting and diarrhea. Patient denies any urinary burning or frequency On 11/10/2023 patient's alert and oriented 3. Patient remains on IV Lasix. Lisinopril adjusted per cardiology. Patient denies chest pain or shortness breath. Patient denies nausea vomiting or diarrhea. Patient denies any urinary burning or frequency. Anticipate discharge in the next 24-48 hours On 11/11/2023 patient's alert and oriented 3. Patient cleared for discharge from cardiology standpoint patient will be DC'd by mouth Lasix and increased dose of Cipro. The patient denies chest pain or shortness of breath. Patient denies nausea vomiting or diarrhea. Patient denies any urinary burning or frequency Patient Condition at Discharge: Stable Plan - Discharge Summary Discharge Rx Participant: Yes New Discharge Prescriptions: New Ferrous Sulfate [Iron (65 MG Elemental)] 325 mg PO W/LUNCH 30 Days #30 tab lisinopriL [Zestril] 5 mg PO DAILY 30 Days #30 tab Continue traMADol HCl [Ultram] 50 mg PO TID PRN PRN Reason: Pain traZODone HCL [Desyrel] 50 mg PO HS PRN PRN Reason: Insomnia Insulin Glargine/Lixisenatide [Soliqua 100 Unit-33 Mcg/ml Pen] 30 units SQ DAILY 30 Days #1 pen Albuterol Nebulized [Ventolin Nebulized] 2.5 mg INHALATION RT-Q4H PRN PRN Reason: Shortness Of Breath Spironolactone [Aldactone] 25 mg PO DAILY #30 tab Metoprolol Succinate (ER) [Toprol XL] 25 mg PO BID #60 tab Furosemide [Lasix] 40 mg PO DAILY 30 Days #30 tab Atorvastatin [Lipitor] 40 mg PO DAILY #30 tab Ipratropium-Albuterol Nebulize [Duoneb 0.5 mg-3 mg/3 ml Soln] 3 ml INHALATION RT-QID Budesonide-Formot 160-4.5 Mcg [Symbicort 160-4.5 Mcg Inhaler] 2 puff INHALATION RT-BID 30 Days #1 each Aspirin 81 mg PO DAILY #30 tab Clopidogrel [Plavix] 75 mg PO DAILY #30 tab Discontinued lisinopriL [Zestril] 2.5 mg PO DAILY #30 tab Discharge Medication List traMADol HCl [Ultram] 50 mg PO TID PRN 11/04/15 [History] traZODone HCL [Desyrel] 50 mg PO HS PRN 06/11/23 [History] Insulin Glargine/Lixisenatide [Soliqua 100 Unit-33 Mcg/ml Pen] 30 units SQ DAILY 30 Days #1 pen 07/01/23 [Rx] Albuterol Nebulized [Ventolin Nebulized] 2.5 mg INHALATION RT-Q4H PRN 07/22/23 [History] Ipratropium-Albuterol Nebulize [Duoneb 0.5 mg-3 mg/3 ml Soln] 3 ml INHALATION RT-QID 07/22/23 [History] Budesonide-Formot 160-4.5 Mcg [Symbicort 160-4.5 Mcg Inhaler] 2 puff INHALATION RT-BID 30 Days #1 each 08/10/23 [Rx] Aspirin 81 mg PO DAILY #30 tab 10/24/23 [Rx] Atorvastatin [Lipitor] 40 mg PO DAILY #30 tab 10/24/23 [Rx] Clopidogrel [Plavix] 75 mg PO DAILY #30 tab 10/24/23 [Rx] Furosemide [Lasix] 40 mg PO DAILY 30 Days #30 tab 10/24/23 [Rx] Metoprolol Succinate (ER) [Toprol XL] 25 mg PO BID #60 tab 10/24/23 [Rx] Spironolactone [Aldactone] 25 mg PO DAILY #30 tab 10/24/23 [Rx] Ferrous Sulfate [Iron (65 MG Elemental)] 325 mg PO W/LUNCH 30 Days #30 tab 11/11/23 [Rx] lisinopriL [Zestril] 5 mg PO DAILY 30 Days #30 tab 11/11/23 [Rx] Follow up Appointment(s)/Referral(s): [facility] [Provider Group] - 1 Week Surinder Rodríguez MD [Primary Care Provider] - 1-2 days Discharge Disposition: HOME SELF-CARE
[2023-11-11 11:29] LABS: Glucose,Whole Blood 150 mg/dL (70-110)
[2023-11-11] MEDS ORDERED: FERROUS SULFATE 325 MG TAB PO SCH (12:30)
== END 2023-11-11 12:05 | disposition home or self-care (01) ==
LOC: EC 21:24 → 3SCARD 11-08 04:52 → OBSVTOIN 11-08 04:53 → INTOOBSV 11-08 04:53 → 3SCARD 11-08 05:21 → UNDODISIN 11-11 12:05
PROVIDERS: ADMIT Internal Medicine; ATTEND Internal Medicine
DX: I11.0 Hypertensive heart disease with heart failure (principal); I50.23 Acute on chronic systolic (congestive) heart failure; I25.810 Atherosclerosis of coronary artery bypass graft(s) without angina pectoris; I44.7 Left bundle-branch block, unspecified; I08.3 Combined rheumatic disorders of mitral, aortic and tricuspid valves; T82.855A Stenosis of coronary artery stent, initial encounter; M54.16 Radiculopathy, lumbar region; J44.9 Chronic obstructive pulmonary disease, unspecified; I42.9 Cardiomyopathy, unspecified; I25.2 Old myocardial infarction; M54.42 Lumbago with sciatica, left side; E11.9 Type 2 diabetes mellitus without complications; M19.90 Unspecified osteoarthritis, unspecified site; G47.30 Sleep apnea, unspecified; M79.7 Fibromyalgia; E78.5 Hyperlipidemia, unspecified; M32.9 Systemic lupus erythematosus, unspecified; Z79.51 Long term (current) use of inhaled steroids; Z79.02 Long term (current) use of antithrombotics/antiplatelets; Z79.4 Long term (current) use of insulin; Z79.899 Other long term (current) drug therapy; Z88.2 Allergy status to sulfonamides; Z88.1 Allergy status to other antibiotic agents; Z11.52 Encounter for screening for COVID-19; Z11.59 Encounter for screening for other viral diseases; Z87.891 Personal history of nicotine dependence; Z95.1 Presence of aortocoronary bypass graft; Z95.5 Presence of coronary angioplasty implant and graft
CPT/HCPCS: 96376 ×4; 96365; 96366; 96372 ×3; 96375; 99285; 36415; 94640 ×7; 94760; 93005; 83880; 80053 ×4; 82607; 82746; 83540; 83550; 83605; 84484; 85025 ×4; 85610; 85730; 81001; 83036; 87636; 72082; 71046; G0378 ×4; G0480; J2270; J1940 ×5; J1650 ×3; J2916; 80320; 96374

== ENCOUNTER 2023-11-22 01:44 | Emergency (ER) | payer MEDICARE, OTHER ==
[2023-11-22 02:11] VITALS: TEMP 97.6
[2023-11-22] MEDS ORDERED: KETOROLAC 15 MG/ML 1 ML VIAL IM STA (04:37)
--- NOTE | 2023-11-22 04:41 | ED ---
Back Pain HPI - General Chief Complaint: Back Pain/Injury Stated Complaint: SOB Back pain Time Seen by Provider: 11/22/23 03:42 Source: patient, family Limitations: no limitations - History of Present Illness Initial Comments: Mark is a 73yo F who [facility] for evaluation of sciatica. Patient states she's had intermittent back pain and sciatica in the past. For the past days she's had pain shooting down her left leg. Pain is electric shock in nature. Patient was unable sleep due to the pain so she came to the ER for treatment. Patient also notes that she feels mildly short of breath, she does admit to smoking 2 joints of marijuana a day. - Related Data Home Medications Medication Instructions Recorded Confirmed traMADol HCl [Ultram] 50 mg PO TID PRN 11/04/15 11/08/23 traZODone HCL [Desyrel] 50 mg PO HS PRN 06/11/23 11/08/23 Albuterol Nebulized [Ventolin 2.5 mg INHALATION RT-Q4H PRN 07/22/23 11/08/23 Nebulized] Ipratropium-Albuterol Nebulize 3 ml INHALATION RT-QID 07/22/23 11/08/23 [Duoneb 0.5 mg-3 mg/3 ml Soln] Previous Rx's Medication Instructions Recorded Insulin Glargine/Lixisenatide 30 units SQ DAILY 30 Days #1 pen 07/01/23 [Soliqua 100 Unit-33 Mcg/ml Pen] Budesonide-Formot 160-4.5 Mcg 2 puff INHALATION RT-BID 30 Days 08/10/23 [Symbicort 160-4.5 Mcg Inhaler] #1 each Aspirin 81 mg PO DAILY #30 tab 10/24/23 Atorvastatin [Lipitor] 40 mg PO DAILY #30 tab 10/24/23 Clopidogrel [Plavix] 75 mg PO DAILY #30 tab 10/24/23 Furosemide [Lasix] 40 mg PO DAILY 30 Days #30 tab 10/24/23 Metoprolol Succinate (ER) [Toprol 25 mg PO BID #60 tab 10/24/23 XL] Spironolactone [Aldactone] 25 mg PO DAILY #30 tab 10/24/23 Ferrous Sulfate [Iron (65 MG 325 mg PO W/LUNCH 30 Days #30 tab 11/11/23 Elemental)] lisinopriL [Zestril] 5 mg PO DAILY 30 Days #30 tab 11/11/23 predniSONE [Deltasone] 40 mg PO DAILY 5 Days #10 tab 11/22/23 Allergies Allergy/AdvReac Type Severity Reaction Status Date / Time cephalexin Allergy Anaphylaxis Verified 11/22/23 01:45 cephalexin monohydrate Allergy Anaphylaxis Verified 11/22/23 01:45 [From Keflex] Sulfa (Sulfonamide Allergy Rash/Hives Verified 11/22/23 01:45 Antibiotics) Review of Systems ROS Statement: Those systems with pertinent positive or pertinent negative responses have been documented in the HPI. ROS Other: All systems not noted in ROS Statement are negative. 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 Poly substance abuse "when younger", 07/19/21 admitted for Acute delirium History of Any Multi-Drug Resistant Organisms: None Reported Past Surgical History: Cholecystectomy, Coronary Bypass/CABG, Hernia Repair, Orthopedic Surgery, Tonsillectomy, Tubal Ligation Additional Past Surgical History / Comment(s): LEFT KNEE ARTHROSCOPY, BMT AND MYRINGOPLASTY, umbilical hernia repair, CABG 2020 Past Anesthesia/Blood Transfusion Reactions: No Reported Reaction Additional Past Anesthesia/Blood Transfusion Reaction / Comment(s): STATES AFTER LAST EAR SX (11/2013) HAD SORE MUSCLES AND WAS WEAK FOR 3-4 DAYS Past Psychological History: No Psychological Hx Reported Smoking Status: Former smoker Past Alcohol Use History: None Reported Past Drug Use History: Marijuana - Past Family History Sister(s) Family Medical History: Cancer Brother(s) Family Medical History: Cancer Additional Family Medical History / Comment(s): brother had heart valve replacement Mother Family Medical History: Chest Pain / Angina, Diabetes Mellitus, Hypertension Father History Unknown: Yes Additional Family Medical History / Comment(s): , "had bad lungs" per patient, was a smoker General Exam - General Exam Comments Initial Comments: Mari is a pleasant 73-year-old female presents ER today for evaluation of low back pain with pain radiating down the left leg. Patient describes chronic low back pain but reports that this evening she began having pain that shoots down her left leg she has experienced this in the past. Patient took tramadol home without improvement in her symptoms. Patient was able to sleep so she came to the ER for evaluation. Patient describes the pain as electric-like shocks. She still able to ambulate, no change in bowel or bladder habits no numbness in the leg. Limitations: no limitations Course Vital Signs 11/22/23 11/22/23 11/22/23 01:45 03:46 05:17 Temperature 97.6 F Pulse Rate 112 H 102 H 82 Respiratory 24 20 18 Rate Blood Pressure 121/73 124/76 129/74 O2 Sat by Pulse 99 100 99 Oximetry Medical Decision Making - Medical Decision Making Was pt. sent in by a medical professional or institution (, PA, VISITOR INFORMATION ASSISTANT, urgent care, hospital, or jail...) When possible be specific @ -No Did you speak to anyone other than the patient for history (EMS, parent, family, police, friend...)? What history was obtained from this source @ -No Did you review nursing and triage notes (agree or disagree)? Why? @ -I reviewed and agree with nursing and triage notes Were old charts reviewed (outside hosp., previous admission, EMS record, old EKG, old radiological studies, urgent care reports/EKG's, jail records)? Report findings @ -No old charts were reviewed Differential Diagnosis (chest pain, altered mental status, abdominal pain women, abdominal pain men, vaginal bleeding, weakness, fever, dyspnea, syncope, headache, dizziness, GI bleed, back pain, seizure, CVA, palpatations, mental health)? @ -not applicable EKG interpreted by me (3pts min.). @ -As above X-rays interpreted by me (1pt min.). @ -Chest x-ray with no pneumothorax no consolidation CT interpreted by me (1pt min.). @ -None done U/S interpreted by me (1pt. min.). @ -None done What testing was considered but not performed or refused? (CT, X-rays, U/S, labs)? Why? @ -None What meds were considered but not given or refused? Why? @ -None Did you discuss the management of the patient with other professionals (professionals i.e. , PA, VISITOR INFORMATION ASSISTANT, lab, RT, psych nurse, social science research assistant, loan documents closer, teacher, chief safety officer, senior case manager)? Give summary @ -No Was smoking cessation discussed for >3mins.? @ -No Was critical care preformed (if so, how long)? @ -No Were there social determinants of health that impacted care today? How? (Homelessness, low income, unemployed, alcoholism, drug addiction, tr ansportation, low edu. Level, literacy, decrease access to med. care, fpc, rehab)? @ -No Was there de-escalation of care discussed even if they declined (Discuss DNR or withdrawal of care, Hospice)? DNR status @ -No What co-morbidities impacted this encounter? (DM, HTN, Smoking, COPD, CAD, Cancer, CVA, ARF, Chemo, Hep., AIDS, mental health diagnosis, sleep apnea, morbid obesity)? @ -None Was patient admitted / discharged? Hospital course, mention meds given and route, prescriptions, significant lab abnormalities, going to OR and other pertinent info. @ -Discharged Patient was seen and evaluated, history was obtained from the patient. Attack- like symptoms were treated with Toradol and by mouth Valium. Chest x-rays obtained and was unremarkable. Patient was advised to stop smoking. Undiagnosed new problem with uncertain prognosis? @ -No Drug Therapy requiring intensive monitoring for toxicity (Heparin, Nitro, Insulin, Cardizem)? @ -No Were any procedures done? @ -No Diagnosis/symptom? @ -Sciatica Acute, or Chronic, or Acute on Chronic? @ Acute Uncomplicated (without systemic symptoms) or Complicated (systemic symptoms)? @ Uncomplicated Side effects of treatment? @ -No Exacerbation, Progression, or Severe Exacerbation? @ -No Poses a threat to life or bodily function? How? (Chest pain, [place], ID, pneumonia, PE, COPD, DKA, ARF, appy, cholecystitis, CVA, Diverticulitis, Homicidal, Suicidal, threat to staff... and all critical care pts) @ -No Disposition Clinical Impression: Left sided sciatica Disposition: HOME SELF-CARE Condition: Stable Instructions (If sedation given, give patient instructions): Sciatica (ED) Prescriptions: predniSONE [Deltasone] 40 mg PO DAILY 5 Days #10 tab Is patient prescribed a controlled substance at d/c from ED?: No Referrals: Surinder Rodríguez MD [Primary Care Provider] - 1-2 days
--- NOTE | 2023-11-22 05:10 | XR ---
EXAMINATION TYPE: XR chest 2V DATE OF EXAM: 11/22/2023 COMPARISON: Chest x-ray November 07, 2023 HISTORY: Burning in chest TECHNIQUE: Frontal and lateral views of the chest are obtained. FINDINGS: Overlying sternal wires and mediastinal clips along with left atrial appendage clip are all redemonstrated . There is no suspicious new focal air space opacity, pleural effusion, or pneumothor ax seen. The cardiac silhouette size is stable in within normal limits. The osseous structures are intact. IMPRESSION: No acute process. No significant change from most recent prior.
[2023-11-22 05:42] VITALS: BP 129/74; PULSE 82; RESP 18
== END 2023-11-22 06:02 | disposition home or self-care (01) ==
LOC: EC 01:44
DX: M54.42 Lumbago with sciatica, left side (principal); R06.02 Shortness of breath; E11.9 Type 2 diabetes mellitus without complications; I11.0 Hypertensive heart disease with heart failure; I50.9 Heart failure, unspecified; I25.10 Atherosclerotic heart disease of native coronary artery without angina pectoris; J44.89 Other specified chronic obstructive pulmonary disease; F12.90 Cannabis use, unspecified, uncomplicated; Z79.899 Other long term (current) drug therapy; Z88.1 Allergy status to other antibiotic agents; Z88.2 Allergy status to sulfonamides; Z87.891 Personal history of nicotine dependence; Z95.1 Presence of aortocoronary bypass graft
CPT/HCPCS: 99283 ×2; 96372 ×3; 71046; J3360; J1885

== ENCOUNTER 2023-11-25 23:26 | Emergency (ER) | payer MEDICARE, OTHER ==
[2023-11-25 23:39] VITALS: TEMP 97.5
--- NOTE | 2023-11-25 23:57 | ED ---
Chest Pain HPI - General Chief Complaint: Chest Pain Stated Complaint: Chest pain Time Seen by Provider: 11/25/23 23:40 Source: patient Mode of arrival: ambulatory Limitations: no limitations - History of Present Illness Initial Comments: This patient is a 73-year-old woman here with complaints of back and chest pain. She is entered as chest pain by triage however when I clarified with patient she states it is more of the back pain it is not letting her sit or rest. Anytime she tries to sit or rest the pain intensifies. It does radiate to the buttock. She states she has had similar before and that this is a flareup. Patient states that the pain is flaring up so much that her chest is feeling tight as well. She is denying diaphoresis, dyspnea, nausea or vomiting. Patient denies loss of bladder or bowel control. MD Complaint: other -: hour(s) Onset: during rest Pain Location: left chest, right chest Pain Radiation: none Quality: tightness Consistency: constant Improves With: nothing Worsens With: nothing Treatments Prior to Arrival: none - Related Data Home Medications Medication Instructions Recorded Confirmed traMADol HCl [Ultram] 50 mg PO TID PRN 11/04/15 11/08/23 traZODone HCL [Desyrel] 50 mg PO HS PRN 06/11/23 11/08/23 Albuterol Nebulized [Ventolin 2.5 mg INHALATION RT-Q4H PRN 07/22/23 11/08/23 Nebulized] Ipratropium-Albuterol Nebulize 3 ml INHALATION RT-QID 07/22/23 11/08/23 [Duoneb 0.5 mg-3 mg/3 ml Soln] Previous Rx's Medication Instructions Recorded Insulin Glargine/Lixisenatide 30 units SQ DAILY 30 Days #1 pen 07/01/23 [Soliqua 100 Unit-33 Mcg/ml Pen] Budesonide-Formot 160-4.5 Mcg 2 puff INHALATION RT-BID 30 Days 08/10/23 [Symbicort 160-4.5 Mcg Inhaler] #1 each Aspirin 81 mg PO DAILY #30 tab 10/24/23 Atorvastatin [Lipitor] 40 mg PO DAILY #30 tab 10/24/23 Clopidogrel [Plavix] 75 mg PO DAILY #30 tab 10/24/23 Furosemide [Lasix] 40 mg PO DAILY 30 Days #30 tab 10/24/23 Metoprolol Succinate (ER) [Toprol 25 mg PO BID #60 tab 10/24/23 XL] Spironolactone [Aldactone] 25 mg PO DAILY #30 tab 10/24/23 Ferrous Sulfate [Iron (65 MG 325 mg PO W/LUNCH 30 Days #30 tab 11/11/23 Elemental)] lisinopriL [Zestril] 5 mg PO DAILY 30 Days #30 tab 11/11/23 predniSONE [Deltasone] 40 mg PO DAILY 5 Days #10 tab 11/22/23 Allergies Allergy/AdvReac Type Severity Reaction Status Date / Time cephalexin Allergy Anaphylaxis Verified 11/25/23 23:33 cephalexin monohydrate Allergy Anaphylaxis Verified 11/25/23 23:33 [From Keflex] Sulfa (Sulfonamide Allergy Rash/Hives Verified 11/25/23 23:33 Antibiotics) Review of Systems ROS Statement: Those systems with pertinent positive or pertinent negative responses have been documented in the HPI. ROS Other: All systems not noted in ROS Statement are negative. Constitutional: Denies: fever, chills Respiratory: Denies: cough, dyspnea Cardiovascular: Reports: chest pain. Denies: palpitations, orthopnea, edema, syncope Gastrointestinal: Denies: abdominal pain, vomiting, diarrhea, constipation, melena, hematochezia Genitourinary: Denies: dysuria, hematuria Musculoskeletal: Reports: as per HPI, back pain Skin: Denies: rash Neurological: Denies: headache, weakness, numbness EKG Findings - EKG Results: EKG: interpreted by ERMD EKG shows: atrial fibrillation (Rate 139 bpm) - Blocks, [place], Hypertrophy, ST Abn: AV and intraventricular conduction: left bundle branch block (fixed/intermittent, complete/incomplete) QRS axis and voltage: left axis deviation (-30 to -90) Past Medical History Past Medical History: Asthma, Coronary Artery Disease (CAD), Heart Failure, COPD, Diabetes Mellitus, Fibromyalgia, Hyperlipidemia, Hypertension, Musculoskeletal Disorder, Osteoarthritis (OA), Sleep Apnea/CPAP/BIPAP Additional Past Medical History / Comment(s): TESTED POSITIVE FOR LUPUS (STATES NO SYMPTOMS), DOES NOT USE CPAP, SEASONAL ALLERGIES, STATES 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 Poly substance abuse "when younger", 07/19/21 admitted for Acute delirium History of Any Multi-Drug Resistant Organisms: None Reported Past Surgical History: Cholecystectomy, Coronary Bypass/CABG, Hernia Repair, Orthopedic Surgery, Tonsillectomy, Tubal Ligation Additional Past Surgical History / Comment(s): LEFT KNEE ARTHROSCOPY, BMT AND MYRINGOPLASTY, umbilical hernia repair, CABG 2020 Past Anesthesia/Blood Transfusion Reactions: No Reported Reaction Additional Past Anesthesia/Blood Transfusion Reaction / Comment(s): STATES AFTER LAST EAR SX (11/2013) HAD SORE MUSCLES AND WAS WEAK FOR 3-4 DAYS Past Psychological History: No Psychological Hx Reported Smoking Status: Former smoker Past Alcohol Use History: None Reported Past Drug Use History: Marijuana - Past Family History Sister(s) Family Medical History: Cancer Brother(s) Family Medical History: Cancer Additional Family Medical History / Comment(s): brother had heart valve rep lacement Mother Family Medical History: Chest Pain / Angina, Diabetes Mellitus, Hypertension Father History Unknown: Yes Additional Family Medical History / Comment(s): , "had bad lungs" per patient, was a smoker General Exam Limitations: no limitations General appearance: alert, in distress (Due to back pain), other (Patient pacing, states unable to sit due to back pain) Head exam: Absent: atraumatic, normocephalic Eye exam: Present: normal appearance. Absent: scleral icterus, conjunctival injection ENT exam: Present: normal oropharynx Neck exam: Present: normal inspection Respiratory exam: Present: normal lung sounds bilaterally. Absent: respiratory distress, wheezes, rales, rhonchi, stridor, chest wall tenderness, accessory muscle use Cardiovascular Exam: Present: regular rate, normal rhythm, normal heart sounds. Absent: systolic murmur, diastolic murmur, rubs, gallop GI/Abdominal exam: Present: soft. Absent: distended, tenderness, guarding, rebound, rigid, mass Extremities exam: Present: normal inspection, normal capillary refill. Absent: pedal edema, calf tenderness Back exam: Present: normal inspection, paraspinal tenderness. Absent: CVA tenderness (R), CVA tenderness (L), vertebral tenderness Neurological exam: Present: alert, reflexes normal. Absent: motor sensory deficit Skin exam: Present: warm, dry, intact, normal color. Absent: rash Course Vital Signs 11/25/23 11/26/23 11/26/23 23:29 00:32 01:53 Temperature 97.5 F L Pulse Rate 89 121 H 98 Respiratory 24 20 18 Rate Blood Pressure 140/99 125/102 91/72 O2 Sat by Pulse 93 L 99 98 Oximetry 11/26/23 11/26/23 02:40 05:11 Temperature Pulse Rate 92 81 Respiratory 17 17 Rate Blood Pressure 93/65 87/64 O2 Sat by Pulse 96 97 Oximetry Chest Pain [facility] Patient is 73-year-old woman who is here mainly with exacerbation of back pain however she has had some chest pain that she noticed. Given the patient's history, chest pain workup obtained and this is negative. Note chest pain that patient's primary complaint and is not typical of cardiac etiology. The patient feeling much better following treatment of her back pain. Discussed appropriate further care and follow-up as well as return parameters. The patient had chest x-ray that I interpreted as negative for acute infiltrate, pneumothorax, congestive heart failure Was pt. sent in by a medical professional or institution (, PA, FLOORING GRADER, urgent care, hospital, or senior living...) When possible be specific @ -[No] Did you speak to anyone other than the patient for history (EMS, parent, family, police, friend...)? What history was obtained from this source @ -[No] Did you review nursing and triage notes (agree or disagree)? Why? @ -[I reviewed and agree with nursing and triage notes, though back pain seems to be patient's primary complaint] Were old charts reviewed (outside hosp., previous admission, EMS record, old EKG, old radiological studies, urgent care reports/EKG's, senior living records)? Report findings @ -[Yes old charts were reviewed] Differential Diagnosis (chest pain, altered mental status, abdominal pain women, abdominal pain men, vaginal bleeding, weakness, fever, dyspnea, syncope, headache, dizziness, GI bleed, back pain, seizure, CVA, palpatations, mental health, musculoskeletal)? @ -[Differential Back Pain: Strain, zoster, cauda equina syndrome, epidural abscess, vertebral osteomyelitis, discitis, fracture, subluxation, disc herniation, DJD, spinal stenosis, dissection, AAA, pancreatitis, peptic ulcer disease, pyelonephritis, kidney stone, this is not meant to be an all-inclusive list. Differential Chest Pain: Stable Angina, Unstable Angina, STEMI, NSTEMI Aortic Dissection, Pneumothorax, Musculoskeletal, Esophageal Spasm GERD, Cholecystitis, Pancreatitis, Zoster, this is not meant to be an all-inclusive list. EKG interpreted by me (3pts min.). @ -[I interpreted as above] X-rays interpreted by me (1pt min.). @ -[I interpreted as above CT interpreted by me (1pt min.). @ -[None done] U/S interpreted by me (1pt. min.). @ -[None done] What testing was considered but not performed or refused? (CT, X-rays, U/S, labs)? Why? @ -[None] What meds were considered but not given or refused? Why? @ -[None] Did you discuss the management of the patient with other professionals (professionals i.e. , PA, FLOORING GRADER, lab, RT, psych nurse, social media sr strategy manager, upper extremity surgeon, teacher, parole or probation officer, caser in)? Give summary @ -[No] Was smoking cessation discussed for >3mins.? @ -[No] Was critical care preformed (if so, how long)? @ -[No] Were there social determinants of health that impacted care today? How? (Homeles sness, low income, unemployed, alcoholism, drug addiction, transportation, low edu. Level, literacy, decrease access to med. care, half-way, rehab)? @ -[No] Was there de-escalation of care discussed even if they declined (Discuss DNR or withdrawal of care, Hospice)? DNR status @ -[No] What co-morbidities impacted this encounter? (DM, HTN, Smoking, COPD, CAD, Cancer, CVA, ARF, Chemo, Hep., AIDS, mental health diagnosis, sleep apnea, morbid obesity)? @ -[None] Was patient admitted / discharged? Hospital course, mention meds given and route, prescriptions, significant lab abnormalities, going to OR and other pertinent info. @ -[See above Undiagnosed new problem with uncertain prognosis? @ -[No] Drug Therapy requiring intensive monitoring for toxicity (Heparin, Nitro, Insulin, Cardizem)? @ -[No] Were any procedures done? @ -[No] Diagnosis/symptom? @ -[Acute exacerbation of chronic low back pain Acute chest pain Acute, or Chronic, or Acute on Chronic? @ -[default] Uncomplicated (without systemic symptoms) or Complicated (systemic symptoms)? @ -Uncomplicated Side effects of treatment? @ -[No] Exacerbation, Progression, or Severe Exacerbation? @ -[No] Poses a threat to life or bodily function? How? (Chest pain, [place], [place], pneumonia, PE, COPD, DKA, ARF, appy, cholecystitis, CVA, Diverticulitis, Homicidal, Suicidal, threat to staff... and all critical care pts) @ -[Low likelihood but does require follow-up as discussed with patient Disposition Clinical Impression: Lumbar radicular pain Disposition: HOME SELF-CARE Condition: Good Instructions (If sedation given, give patient instructions): Lumbar Radiculopathy (ED) Is patient prescribed a controlled substance at d/c from ED?: No Referrals: Surinder Rodríguez MD [Primary Care Provider] - 1-2 days
[2023-11-26] MEDS: ASPIRIN 81 MG PO STA (00:14)
--- NOTE | 2023-11-26 00:28 | XR ---
EXAMINATION TYPE: XR chest 1V portable DATE OF EXAM: 11/26/2023 COMPARISON: Chest x-ray November 22, 2023 HISTORY: Chest pain TECHNIQUE: Single frontal view of the chest is obtained. FINDINGS: Sternal wires and mediastinal clips are redemonstrated. There is no focal air space opacity, pleural effusion, or pneumothorax seen. The cardiac silhouette size is stable and mildly enlarged. The oss eous structures are intact. IMPRESSION: Chronic changes and mild cardiomegaly without acute pulmonary process. Note significant change from most recent prior.
[2023-11-26] MEDS: MORPHINE SULFATE 4 MG/ML SYRINGE IV STA (00:31)
[2023-11-26 00:34] LABS: ALT 24 U/L (4-34); AST 23 U/L (14-36); African American GFR (CKD) >90 (>60 ml/min/1.73 sqM); Albumin 4.1 g/dL (3.5-5.0); Alkaline Phosphatase 110 U/L (38-126); Anion Gap 9 mmol/L; Blood Urea Nitrogen 10 mg/dL (7-17); Carbon Dioxide 22 mmol/L (22-30); Chloride 103 mmol/L (98-107); Glucose 257 mg/dL (74-99); Magnesium 1.7 mg/dL (1.6-2.3); Non-African American GFR(CKD) 82 (>60 ml/min/1.73 sqM); Potassium 4.1 mmol/L (3.5-5.1); Sodium 134 mmol/L (137-145); Total Bilirubin 0.4 mg/dL (0.2-1.3); Total Protein 7.3 g/dL (6.3-8.2)
[2023-11-26 00:37] LABS: Partial Thromboplastin Time 26.4 sec (22.0-30.0); Prothrombin Time 10.7 sec (10.0-12.5)
[2023-11-26 01:01] LABS: Anisocytosis Moderate; Basophils % (A) 1 %; Eosinophils # (A) 0.4 k/uL (0-0.7); Eosinophils % (A) 5 %; HCT 32.2 % (34.0-46.0); HGB 9.6 gm/dL (11.4-16.0); Hypochromasia Marked; Lymphocytes # (A) 1.9 k/uL (1.0-4.8); Lymphocytes % (A) 24 %; MCH 20.5 pg (25.0-35.0); MCHC 29.8 g/dL (31.0-37.0); MCV 68.9 fL (80.0-100.0); Mean Platelet Volume 8.2; Microcytosis Marked; Monocytes # (A) 0.4 k/uL (0-1.0); Monocytes % (A) 5 %; Neutrophils # (A) 5.1 k/uL (1.3-7.7); Neutrophils % (A) 64 %; Platelet Count 423 k/uL (150-450); RBC 4.68 m/uL (3.80-5.40); RDW 20.4 % (11.5-15.5); WBC 8.1 k/uL (3.8-10.6)
[2023-11-26 02:58] VITALS: RESP 17
[2023-11-26 05:28] VITALS: BP 87/64; PULSE 81
== END 2023-11-26 06:00 | disposition home or self-care (01) ==
LOC: EC 23:26
DX: M54.50 Low back pain, unspecified (principal); E11.9 Type 2 diabetes mellitus without complications; I11.0 Hypertensive heart disease with heart failure; I44.7 Left bundle-branch block, unspecified; I25.10 Atherosclerotic heart disease of native coronary artery without angina pectoris; I50.9 Heart failure, unspecified; J44.89 Other specified chronic obstructive pulmonary disease; F12.90 Cannabis use, unspecified, uncomplicated; Z87.891 Personal history of nicotine dependence; G47.30 Sleep apnea, unspecified; Z79.4 Long term (current) use of insulin; Z79.899 Other long term (current) drug therapy; Z88.1 Allergy status to other antibiotic agents; Z88.2 Allergy status to sulfonamides
CPT/HCPCS: 36415; 93005 ×2; 80053; 83735; 84484; 85025; 85610; 85730; 71045; 99285; 96374; J2270

== ENCOUNTER 2023-12-16 21:32 | Inpatient (IN) | payer MEDICARE, OTHER ==
--- NOTE | 2023-12-16 21:55 | ED ---
General Adult HPI - General Chief complaint: Upper Respiratory Infection Stated complaint: CHEST PAIN Time Seen by Provider: 12/16/23 21:41 Source: patient, RN notes reviewed, old records reviewed Mode of arrival: ambulatory Limitations: no limitations - History of Present Illness Initial comments: 73-year-old female presenting with multiple complaints, chief complaint is cough and congestion and increased dyspnea. patient states that she has had chills, bilateral ear pain. She has had a nonproductive cough and myalgia. Patient denies vomiting. Denies abdominal pain. Denies central chest pain at the time my evaluation. - Related Data Home Medications Medication Instructions Recorded Confirmed traMADol HCl [Ultram] 50 mg PO TID PRN 11/04/15 11/08/23 traZODone HCL [Desyrel] 50 mg PO HS PRN 06/11/23 11/08/23 Albuterol Nebulized [Ventolin 2.5 mg INHALATION RT-Q4H PRN 07/22/23 11/08/23 Nebulized] Ipratropium-Albuterol Nebulize 3 ml INHALATION RT-QID 07/22/23 11/08/23 [Duoneb 0.5 mg-3 mg/3 ml Soln] Previous Rx's Medication Instructions Recorded Insulin Glargine/Lixisenatide 30 units SQ DAILY 30 Days #1 pen 07/01/23 [Soliqua 100 Unit-33 Mcg/ml Pen] Budesonide-Formot 160-4.5 Mcg 2 puff INHALATION RT-BID 30 Days 08/10/23 [Symbicort 160-4.5 Mcg Inhaler] #1 each Aspirin 81 mg PO DAILY #30 tab 10/24/23 Atorvastatin [Lipitor] 40 mg PO DAILY #30 tab 10/24/23 Clopidogrel [Plavix] 75 mg PO DAILY #30 tab 10/24/23 Furosemide [Lasix] 40 mg PO DAILY 30 Days #30 tab 10/24/23 Metoprolol Succinate (ER) [Toprol 25 mg PO BID #60 tab 10/24/23 XL] Spironolactone [Aldactone] 25 mg PO DAILY #30 tab 10/24/23 Ferrous Sulfate [Iron (65 MG 325 mg PO W/LUNCH 30 Days #30 tab 11/11/23 Elemental)] lisinopriL [Zestril] 5 mg PO DAILY 30 Days #30 tab 11/11/23 predniSONE [Deltasone] 40 mg PO DAILY 5 Days #10 tab 11/22/23 Allergies Allergy/AdvReac Type Severity Reaction Status Date / Time cephalexin Allergy Anaphylaxis Verified 12/16/23 21:37 cephalexin monohydrate Allergy Anaphylaxis Verified 12/16/23 21:37 [From Keflex] Sulfa (Sulfonamide Allergy Rash/Hives Verified 12/16/23 21:37 Antibiotics) Review of Systems ROS Statement: Those systems with pertinent positive or pertinent negative responses have been documented in the HPI. ROS Other: All systems not noted in ROS Statement are negative. 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 Poly substance abuse "when younger", 07/19/21 admitted for Acute delirium History of Any Multi-Drug Resistant Organisms: None Reported Past Surgical History: Cholecystectomy, Coronary Bypass/CABG, Hernia Repair, Orthopedic Surgery, Tonsillectomy, Tubal Ligation Additional Past Surgical History / Comment(s): LEFT KNEE ARTHROSCOPY, BMT AND MYRINGOPLASTY, umbilical hernia repair, CABG 2020 Past Anesthesia/Blood Transfusion Reactions: No Reported Reaction Additional Past Anesthesia/Blood Transfusion Reaction / Comment(s): STATES AFTER LAST EAR SX (11/2013) HAD SORE MUSCLES AND WAS WEAK FOR 3-4 DAYS Past Psychological History: No Psychological Hx Reported Smoking Status: Former smoker Past Alcohol Use History: None Reported Past Drug Use History: Marijuana - Past Family History Sister(s) Family Medical History: Cancer Brother(s) Family Medical History: Cancer Additional Family Medical History / Comment(s): brother had heart valve replacement Mother Family Medical History: Chest Pain / Angina, Diabetes Mellitus, Hypertension Father History Unknown: Yes Additional Family Medical History / Comment(s): , "had bad lungs" per patient, was a smoker General Exam Limitations: no limitations General appearance: alert, in no apparent distress Head exam: Present: atraumatic, normocephalic Eye exam: Present: normal appearance, PERRL Respiratory exam: Present: wheezes, decreased breath sounds, other (Bronchospastic cough, tachypneic). Absent: respiratory distress Cardiovascular Exam: Present: regular rate, normal rhythm GI/Abdominal exam: Present: soft. Absent: distended, tenderness, guarding Extremities exam: Present: normal inspection Neurological exam: Present: alert, oriented X3, CN II-XII intact, normal gait. Absent: motor sensory deficit Psychiatric exam: Present: normal affect, normal mood Skin exam: Present: warm, dry, intact Course Vital Signs 12/16/23 12/16/23 12/16/23 21:34 22:12 22:28 Temperature 98 F Pulse Rate 72 101 H 96 Respiratory 26 H 24 Rate Blood Pressure 94/66 O2 Sat by Pulse 98 100 Oximetry 12/16/23 12/16/23 12/17/23 22:44 23:10 00:12 Temperature Pulse Rate 102 H 111 H 93 Respiratory 28 H 18 Rate Blood Pressure 111/80 91/70 O2 Sat by Pulse 100 99 Oximetry Medical Decision Making - Medical Decision Making Was pt. sent in by a medical professional or institution (, PA, [facility], urgent care, hospital, or fdc...) When possible be specific @ -No Did you speak to anyone other than the patient for history (EMS, parent, family, police, friend...)? What history was obtained from this source @ -No Did you review nursing and triage notes (agree or disagree)? Why? @ -I reviewed and agree with nursing and triage notes Were old charts reviewed (outside hosp., previous admission, EMS record, old EKG, old radiological studies, urgent care reports/EKG's, fdc records)? Report findings @ -No old charts were reviewed Differential Diagnosis (chest pain, altered mental status, abdominal pain women, abdominal pain men, vaginal bleeding, weakness, fever, dyspnea, syncope, heada keith, dizziness, GI bleed, back pain, seizure, CVA, palpatations, mental health, musculoskeletal)? @ -Not applicable EKG interpreted by me (3pts min.). @ -[Sinus tachycardia rate of 102 QRS duration 134, QTc 414, QTc [address] segment elevation, similar QRS compared to prior. X-rays interpreted by me (1pt min.). @ -Chest x-ray without acute process, no pneumothorax, no focal pneumonia CT interpreted by me (1pt min.). @ -None done U/S interpreted by me (1pt. min.). @ -None done What testing was considered but not performed or refused? (CT, X-rays, U/S, labs)? Why? @ -None What meds were considered but not given or refused? Why? @ -None Did you discuss the management of the patient with other professionals (professionals i.e. , PA, [facility], lab, RT, psych nurse, socially responsible investment adviser, superintendent police, t eacher, global safety officer, caseworker)? Give summary @ -No Was smoking cessation discussed for >3mins.? @ -No Was critical care preformed (if so, how long)? @ -No Were there social determinants of health that impacted care today? How? (Homelessness, low income, unemployed, alcoholism, drug addiction, transportation, low edu. Level, literacy, decrease access to med. care, fpc, rehab)? @ -No Was there de-escalation of care discussed even if they declined (Discuss DNR or withdrawal of care, Hospice)? DNR status @ -No What co-morbidities impacted this encounter? (DM, HTN, Smoking, COPD, CAD, Cancer, CVA, ARF, Chemo, Hep., AIDS, mental health diagnosis, sleep apnea, morbid obesity)? @ -COPD, CAD, congestive heart failure Was patient admitted / discharged? Hospital course, mention meds given and route, prescriptions, significant lab abnormalities, going to OR and other pertinent info. @73-year-old female with increased cough and dyspnea, myalgia, chills. Patient's viral panel is negative. Chest x-ray does not show focal pneumonia. Patient has normal white blood cell count, stable chronic anemia. Her BNP is mildly elevated but improved from prior. Troponin is negative. Normal electrolytes. Urinalysis unremarkable. Patient will be placed in observation for treatment of COPD exacerbation. Undiagnosed new problem with uncertain prognosis? @ -No Drug Therapy requiring intensive monitoring for toxicity (Heparin, Nitro, Insulin, Cardizem)? @ -No Were any procedures done? @ -No Diagnosis/symptom? @ -[COPD exacerbation Acute, or Chronic, or Acute on Chronic? @ -Acute on chronic Uncomplicated (without systemic symptoms) or Complicated (systemic symptoms)? @ -[default Side effects of treatment? @ -No Exacerbation, Progression, or Severe Exacerbation? @ -No Poses a threat to life or bodily function? How? (Chest pain, USA, NC, pneumonia, PE, COPD, DKA, ARF, appy, cholecystitis, CVA, Diverticulitis, Homicidal, Suicidal, threat to staff... and all critical care pts) @ -Yes, worsening respiratory failure - Lab Data Result diagrams: 12/16/23 23:59 12/16/23 22:14 Lab Results 12/16/23 12/16/23 12/16/23 Range/Units 22:14 22:14 22:14 WBC (3.8-10.6) k/uL RBC (3.80-5.40) m/uL Hgb (11.4-16.0) gm/dL Hct (34.0-46.0) % MCV (80.0-100.0) fL MCH (25.0-35.0) pg MCHC (31.0-37.0) g/dL RDW (11.5-15.5) % Plt Count (150-450) k/uL MPV Neutrophils % % Lymphocytes % % Monocytes % % Eosinophils % % Basophils % % Neutrophils # (1.3-7.7) k/uL Lymphocytes # (1.0-4.8) k/uL Monocytes # (0-1.0) k/uL Eosinophils # (0-0.7) k/uL Basophils # (0-0.2) k/uL Hypochromasia Poikilocytosis Anisocytosis Microcytosis Sodium 133 L (137-145) mmol/L Potassium 4.4 (3.5-5.1) mmol/L Chloride 98 (98-107) mmol/L Carbon Dioxide 24 (22-30) mmol/L Anion Gap 11 mmol/L BUN 13 (7-17) mg/dL Creatinine 0.67 (0.52-1.04) mg/dL Est GFR (CKD-EPI)AfAm >90 (>60 ml/min/1.73 sqM) Est GFR (CKD-EPI)NonAf 88 (>60 ml/min/1.73 sqM) Glucose 123 H (74-99) mg/dL Calcium 9.0 (8.4-10.2) mg/dL Total Bilirubin 0.4 (0.2-1.3) mg/dL AST 19 (14-36) U/L ALT 13 (4-34) U/L Alkaline Phosphatase 92 (38-126) U/L Troponin I (0.000-0.034) ng/mL NT-Pro-B Natriuret Pep pg/mL Total Protein 7.1 (6.3-8.2) g/dL Albumin 4.1 (3.5-5.0) g/dL Urine Color Colorless Urine Appearance Clear (Clear) Urine pH 5.5 (5.0-8.0) Ur Specific Romayor 1.002 (1.001-1.035) Urine Protein Negative (Negative) Urine Glucose (UA) Negative (Negative) Urine Ketones Negative (Negative) Urine Blood Negative (Negative) Urine Nitrite Negative (Negative) Urine Bilirubin Negative (Negative) Urine Urobilinogen <2.0 (<2.0) mg/dL Ur Leukocyte Esterase Negative (Negative) Influenza Type A (PCR) Not Detected (Not Detectd) Influenza Type B (PCR) Not Detected (Not Detectd) RSV (PCR) Not Detected (Not Detectd) SARS-CoV-2 (PCR) Not Detected (Not Detectd) 12/16/23 12/16/23 12/16/23 Range/Units 23:06 23:06 23:59 WBC 6.8 (3.8-10.6) k/uL RBC 4.34 (3.80-5.40) m/uL Hgb 8.9 L (11.4-16.0) gm/dL Hct 29.4 L (34.0-46.0) % MCV 67.7 L (80.0-100.0) fL MCH 20.6 L (25.0-35.0) pg MCHC 30.4 L (31.0-37.0) g/dL RDW 19.5 H (11.5-15.5) % Plt Count 288 (150-450) k/uL MPV 8.3 Neutrophils % 59 % Lymphocytes % 28 % Monocytes % 5 % Eosinophils % 7 % Basophils % 0 % Neutrophils # 4.1 (1.3-7.7) k/uL Lymphocytes # 1.9 (1.0-4.8) k/uL Monocytes # 0.3 (0-1.0) k/uL Eosinophils # 0.5 (0-0.7) k/uL Basophils # 0.0 (0-0.2) k/uL Hypochromasia Marked Poikilocytosis Slight Anisocytosis Slight Microcytosis Marked Sodium (137-145) mmol/L Potassium (3.5-5.1) mmol/L Chloride (98-107) mmol/L Carbon Dioxide (22-30) mmol/L Anion Gap mmol/L BUN (7-17) mg/dL Creatinine (0.52-1.04) mg/dL Est GFR (CKD-EPI)AfAm (>60 ml/min/1.73 sqM) Est GFR (CKD-EPI)NonAf (>60 ml/min/1.73 sqM) Glucose (74-99) mg/dL Calcium (8.4-10.2) mg/dL Total Bilirubin (0.2-1.3) mg/dL AST (14-36) U/L ALT (4-34) U/L Alkaline Phosphatase (38-126) U/L Troponin I <0.012 (0.000-0.034) ng/mL NT-Pro-B Natriuret Pep 2130 pg/mL Total Protein (6.3-8.2) g/dL Albumin (3.5-5.0) g/dL Urine Color Urine Appearance (Clear) Urine pH (5.0-8.0) Ur Specific Rom[place]or (1.001-1.035) Urine Protein (Negative) Urine Glucose (UA) (Negative) Urine Ketones (Negative) Urine Blood (Negative) Urine Nitrite (Negative) Urine Bilirubin (Negative) Urine Urobilinogen (<2.0) mg/dL Ur Leukocyte Esterase (Negative) Influenza Type A (PCR) (Not Detectd) Influenza Type B (PCR) (Not Detectd) RSV (PCR) (Not Detectd) SARS-CoV-2 (PCR) (Not Detectd) Disposition Clinical Impression: Acute exacerbation of COPD with asthma Disposition: ADMITTED IP TO THIS HOSP Condition: Stable Is patient prescribed a controlled substance at d/c from ED?: No Referrals: Surinder Rodríguez MD [Primary Care Provider] - 1-2 days Time of Disposition: 00:40
[2023-12-16 22:22] LABS: Appearance,Urine Clear (Clear); Bilirubin,Urine Negative (Negative); Blood,Urine Negative (Negative); Color,Urine Colorless; Glucose,Urine (UA) Negative (Negative); Ketones,Urine Negative (Negative); Leukocyte Esterase,Urine Negative (Negative); Nitrite,Urine Negative (Negative); PH, Urine 5.5 (5.0-8.0); Protein,Urine Negative (Negative); Specific Gravity,Urine 1.002 (1.001-1.035); Urobilinogen,Urine <2.0 mg/dL (<2.0)
--- NOTE | 2023-12-16 22:24 | XR ---
EXAMINATION TYPE: XR chest 2V DATE OF EXAM: 12/16/2023 COMPARISON: Chest x-ray November 26, 2023 HISTORY: Cough TECHNIQUE: Frontal and lateral views of the chest are obtained. FINDINGS: Post-CABG changes with sternal wires and mediastinal clips is redemonstrated. Left atrial appendage clip is again seen. There is no suspicious new focal air space opacity, pleural effusion, o r pneumothorax seen. The cardiac silhouette size remains upper limits of normal. The osseous struc tures are intact. IMPRESSION: No acute pulmonary infiltrate.
[2023-12-16] MEDS: IPRATROPIUM-ALBUTEROL 3 ML NEB INHALATION STA (22:28)
[2023-12-16] MEDS: ALBUTEROL NEBULIZED 2.5 MG/3 ML INHALATION STA (22:28)
[2023-12-16 22:33] LABS: ALT 13 U/L (4-34); AST 19 U/L (14-36); African American GFR (CKD) >90 (>60 ml/min/1.73 sqM); Albumin 4.1 g/dL (3.5-5.0); Alkaline Phosphatase 92 U/L (38-126); Anion Gap 11 mmol/L; Blood Urea Nitrogen 13 mg/dL (7-17); Carbon Dioxide 24 mmol/L (22-30); Chloride 98 mmol/L (98-107); Glucose 123 mg/dL (74-99); Non-African American GFR(CKD) 88 (>60 ml/min/1.73 sqM); Potassium 4.4 mmol/L (3.5-5.1); Sodium 133 mmol/L (137-145); Total Bilirubin 0.4 mg/dL (0.2-1.3); Total Protein 7.1 g/dL (6.3-8.2)
[2023-12-16] MEDS: LORazepam 2 MG/ML INJ IV STA (23:14)
[2023-12-16] MEDS: methylPREDNISolone SOD SUCCI 125 MG/2 ML VIAL IV STA (23:26)
[2023-12-16] MEDS: HYDROmorphone 0.5 MG/0.5 ML SYRINGE IVP STA (23:43)
[2023-12-17 00:30] LABS: Anisocytosis Slight; Basophils % (A) 0 %; Eosinophils # (A) 0.5 k/uL (0-0.7); Eosinophils % (A) 7 %; HCT 29.4 % (34.0-46.0); HGB 8.9 gm/dL (11.4-16.0); Hypochromasia Marked; Lymphocytes # (A) 1.9 k/uL (1.0-4.8); Lymphocytes % (A) 28 %; MCH 20.6 pg (25.0-35.0); MCHC 30.4 g/dL (31.0-37.0); MCV 67.7 fL (80.0-100.0); Mean Platelet Volume 8.3; Microcytosis Marked; Monocytes # (A) 0.3 k/uL (0-1.0); Monocytes % (A) 5 %; Neutrophils # (A) 4.1 k/uL (1.3-7.7); Neutrophils % (A) 59 %; Platelet Count 288 k/uL (150-450); Poikilocytosis Slight; RBC 4.34 m/uL (3.80-5.40); RDW 19.5 % (11.5-15.5); WBC 6.8 k/uL (3.8-10.6)
[2023-12-17] MEDS ORDERED: NALOXONE 0.4 MG/ML 1 ML VIAL IVP PRN (00:36)
[2023-12-17] MEDS: SODIUM CHLORIDE 0.9% 500 ML 500 ML IV ONE ×3 (00:55→08:08)
[2023-12-17] MEDS: AZITHROMYCIN 500 MG in SODIUM CHLORIDE 0.9% 250 ML IVPB STA (01:16)
[2023-12-17] MEDS: IPRATROPIUM-ALBUTEROL 3 ML NEB INHALATION PRN (02:01)
[2023-12-17] MEDS: SODIUM CHLORIDE 0.9% 1,000 ML IV SCH (03:00)
[2023-12-17 06:04] LABS: Glucose,Whole Blood 229 mg/dL (70-110)
[2023-12-17] MEDS: traMADol 50 MG TAB PO PRN (06:14)
[2023-12-17] MEDS: methylPREDNISolone SOD SUCCI 125 MG/2 ML VIAL IV SCH (06:15)
[2023-12-17] MEDS: INSULIN ASPART (NovoLOG) 100 UNIT/ML VIAL SQ SCH (06:52)
[2023-12-17] MEDS: IPRATROPIUM-ALBUTEROL 3 ML NEB INHALATION SCH (08:56)
[2023-12-17] MEDS ORDERED: DEXTROSE 50% SYRINGE 50 ML IVP PRN ×2 (10:18)
--- NOTE | 2023-12-17 10:20 | P.HPIM ---
History of Present Illness H&P Date: 12/17/23 Mari Moore, is a 73 year old female who presented to [facility] with a chief complaint of worsening shortness of breath. Patient reports she's had a nonproductive cough and generalized weakness and upper respiratory symptoms over the past few days. Patient has an extensive medical history including asthma, heart failure, COPD, coronary artery disease with previous history of CABG, diabetes mellitus, fibromyalgia, sleep apnea, ex- smoker and current marijuana user. Chest x-ray completed in ER showing no acute pulmonary infiltrate. Current vital signs showing temperature 97.6, heart rate 97, respiratory 18, blood pressure 98/49 with a pulse ox of 96% on room air patient testing negative for influenza RSV and COVID-19. UA negative. Troponins negative 2. BNP elevated at 2130. White blood cell within normal limits hemoglobin 8.9 at this time primary service is consulted. Will consult cardiology services in order 2-D echo. Iron studies ordered for anemia patient started on IV Solu-Medrol DuoNeb breathing treatments. At this time pulmonary and cardiology services consulted. Continue azithromycin for upper respiratory infection. Iron studies for low hemoglobin. 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 Poly substance abuse "when younger", 07/19/21 admitted for Acute delirium History of Any Multi-Drug Resistant Organisms: None Reported Past Surgical History: Cholecystectomy, Coronary Bypass/CABG, Heart Catheterization With Stent, Hernia Repair, Orthopedic Surgery, Tonsillectomy, Tubal Ligation Additional Past Surgical History / Comment(s): LEFT KNEE ARTHROSCOPY, BMT AND MYRINGOPLASTY, umbilical hernia repair, CABG 2020 Past Anesthesia/Blood Transfusion Reactions: No Reported Reaction Additional Past Anesthesia/Blood Transfusion Reaction / Comment(s): STATES AFTER LAST EAR SX (11/2013) HAD SORE MUSCLES AND WAS WEAK FOR 3-4 DAYS Date of Last Stent Placement:: 12/12/2022 Past Psychological History: No Psychological Hx Reported Smoking Status: Former smoker Past Alcohol Use History: None Reported Additional Past Alcohol Use History / Comment(s): SMOKED 1PPD, SMOKED 10 YEARS . QUIT SMOKING 30 YRS AGO OR MORE. Past Drug Use History: Marijuana Additional Drug Use History / Comment(s): Patient admitted 07/16/21 positive for methamphetamines, amphetamines, benzos, opiates, and marijuana. Patient states she was evicted from her apartment about 2 weeks ago because her son was arrested "for selling drugs" per patient. Pt states she has not done drugs in a couple years now. Patient states they did not live together and she doesnt know why she was - Past Family History Sister(s) Family Medical History: Cancer Brother(s) Family Medical History: Cancer Additional Family Medical History / Comment(s): brother had heart valve replacement Mother Family Medical History: Chest Pain / Angina, Diabetes Mellitus, Hyperlipidemia, Hypertension Father History Unknown: Yes Additional Family Medical History / Comment(s): , "had black lung" per patient, was a smoker Medications and Allergies Home Medications Medication Instructions Recorded Confirmed Type traMADol HCl [Ultram] 50 mg PO TID PRN 11/04/15 11/08/23 History traZODone HCL [Desyrel] 50 mg PO HS PRN 06/11/23 11/08/23 History Insulin Glargine/Lixisenatide 30 units SQ DAILY 30 Days #1 pen 07/01/23 11/08/23 Rx [Soliqua 100 Unit-33 Mcg/ml Pen] Albuterol Nebulized [Ventolin 2.5 mg INHALATION RT-Q4H PRN 07/22/23 11/08/23 History Nebulized] Ipratropium-Albuterol Nebulize 3 ml INHALATION RT-QID 07/22/23 11/08/23 History [Duoneb 0.5 mg-3 mg/3 ml Soln] Budesonide-Formot 160-4.5 Mcg 2 puff INHALATION RT-BID 30 Days 08/10/23 11/08/23 Rx [Symbicort 160-4.5 Mcg Inhaler] #1 each Aspirin 81 mg PO DAILY #30 tab 10/24/23 11/08/23 Rx Atorvastatin [Lipitor] 40 mg PO DAILY #30 tab 10/24/23 11/08/23 Rx Clopidogrel [Plavix] 75 mg PO DAILY #30 tab 10/24/23 11/08/23 Rx Furosemide [Lasix] 40 mg PO DAILY 30 Days #30 tab 10/24/23 11/08/23 Rx Metoprolol Succinate (ER) [Toprol 25 mg PO BID #60 tab 10/24/23 11/08/23 Rx XL] Spironolactone [Aldactone] 25 mg PO DAILY #30 tab 10/24/23 11/08/23 Rx Ferrous Sulfate [Iron (65 MG 325 mg PO W/LUNCH 30 Days #30 tab 11/11/23 Rx Elemental)] lisinopriL [Zestril] 5 mg PO DAILY 30 Days #30 tab 11/11/23 Rx predniSONE [Deltasone] 40 mg PO DAILY 5 Days #10 tab 11/22/23 Rx Allergies Allergy/AdvReac Type Severity Reaction Status Date / Time cephalexin Allergy Anaphylaxis Verified 12/16/23 21:37 cephalexin monohydrate Allergy Anaphylaxis Verified 12/16/23 21:37 [From Keflex] Sulfa (Sulfonamide Allergy Rash/Hives Verified 12/16/23 21:37 Antibiotics) Physical Exam Vitals: Vital Signs Temp Pulse Pulse Resp BP BP Pulse Ox 12/17/23 06:07 90/51 12/17/23 05:37 103 H 18 98/49 96 12/17/23 04:10 85/54 12/17/23 04:00 89/55 12/17/23 03:37 73/49 12/17/23 03:25 97.6 F 104 H 20 85/53 95 12/17/23 02:57 110 H 26 H 108/84 97 12/17/23 02:16 108 H 12/17/23 02:02 102 H 12/17/23 02:00 105 H 23 102/77 94 L 12/17/23 01:33 106 H 24 119/86 95 12/17/23 01:16 101 H 22 105/71 96 12/17/23 01:07 101 H 20 94/76 96 12/17/23 01:04 93 17 81/59 94 L 12/17/23 00:12 93 18 91/70 99 12/16/23 23:10 111 H 28 H 111/80 100 12/16/23 22:44 102 H 12/16/23 22:28 96 12/16/23 22:12 101 H 24 94/66 100 12/16/23 21:34 98 F 72 26 H 98 Intake and Output 12/16/23 12/17/23 12/17/23 22:59 06:59 14:59 Output Total 200 Balance -200 Output: Urine 200 Other: # Voids 1 Weight 81.647 kg 81.647 kg Head normocephalic Neck supple Lungs clear to auscultation bilaterally no wheezing or crackles Heart regular rate and rhythm S1-S2, no rub or gallop Abdomen is soft nontender nondistended positive bowel sounds no hepatosplenomegaly Extremities no edema Neuro alert and orientated to 3 Results CBC & Chem 7: 12/16/23 23:59 12/16/23 22:14 Labs: Abnormal Lab Results - Last 24 Hours (Table) 12/16/23 12/16/23 12/17/23 Range/Units 22:14 23:59 06:03 Hgb 8.9 L (11.4-16.0) gm/dL Hct 29.4 L (34.0-46.0) % MCV 67.7 L (80.0-100.0) fL MCH 20.6 L (25.0-35.0) pg MCHC 30.4 L (31.0-37.0) g/dL RDW 19.5 H (11.5-15.5) % Sodium 133 L (137-145) mmol/L Glucose 123 H (74-99) mg/dL POC Glucose (mg/dL) 229 H (70-110) mg/dL Thrombosis Risk Factor Assmnt - Choose All That Apply Any of the Below Risk Factors Present?: Yes Each Factor Represents 1 point: Abnormal pulmonary function (COPD) Other Risk Factors: Yes Each Risk Factor Represents 2 Points: Age 61-74 years Other congenital or acquired thrombophilia - If yes, enter type in comment: No Thrombosis Risk Factor Assessment Total Risk Factor Score: 3 Thrombosis Risk Factor Assessment Level: Moderate Risk Assessment and Plan Assessment: 1. Acute exacerbation of COPD 2. Acute on chronic exacerbation of systolic CHF 3. Anemia. Iron studies ordered 4. Cardiomyopathy with an EF of 30-35% 5. History of non-STEMI September 2023 status post cardiac cath showing 80% stenosis of the stent patent 6. History of coronary artery disease disease status post CABG 7. History of diabetes mellitus type II 8. History of essential hypertension 9. History of hyperlipidemia DVT prophylaxis Lovenox. GI prophylaxis Protonix Cardiology and pulmonary service is consulted. Patient started on IV Solu-Medrol Repeat labs ordered iron studies ordered Time with Patient: Greater than 30 (Greater than 60% of the total time spent in counseling and coordination of care)
--- NOTE | 2023-12-17 10:57 | P.CNPUL ---
History of Present Illness Consult date: 12/17/23 Requesting physician: Surinder Rodríguez Reason for consult: dyspnea, cough, COPD, hypoxemia Chief complaint: Shortness of breath. History of present illness: Pulmonary consult dated December 17, 2023. 73-year-old female who presents to the emergency department, at 9:30 PM, on December 16, complaining of chest pain, chest congestion, cough, shortness of breath, chills, and ear pain. The patient was seen in the emergency department. In addition, she apparently complained of myalgias, and generally just not feeling well. The patient is seen today in room 369. Currently, she is getting saline at 50 cc an hour. She is on room air. She tested negative for influenza, coronavirus, and RSV. The patient was a previous tobacco user, for about 10 years. Currently, she smokes marijuana regularly. Her chest x-ray was negative. Last night, the patient became hypotensive, and she received some Solu-Medrol, 80 mg, and 1-1/2 L of fluid. We added Symbicort to her regimen. Her history includes asthma/COPD, coronary disease, heart failure, diabetes, fibromyalgia, hyperlipidemia, hypertension, osteoarthritis, sleep apnea syndrome, possible SLE, and previous bypass surgery, among other things. White count is 6.8, hemoglobin 8.9, hematocrit 29.4, platelet count of 288,000. Sodium 133, potassium 4.4, chloride 98, CO2 24, BUN 13, creatinine 0.67. Glucose is 229. Troponins are negative x 2. N-terminal proBNP was 2130. This value was elevated for somebody her age. Chest x-ray is interpreted by the radiologist, showed evidence of only cardiomegaly. Review of Systems REVIEW OF SYSTEMS: CONSTITUTIONAL: Weakness. NEUROLOGIC: [ Negative.] HEENT: Nasal congestion and stuffiness. CARDIAC: Chest pain. PULMONARY: Shortness of breath, chest congestion, cough. GI: [Negative.] : [Negative.] RHEUMATOLOGIC: [ Negative.] IMMUNOLOGIC: [ Negative.] ENDOCRINE: [Negative. 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 Poly substance abuse "when younger", 07/19/21 admitted for Acute delirium History of Any Multi-Drug Resistant Organisms: None Reported Past Surgical History: Cholecystectomy, Coronary Bypass/CABG, Heart Catheterizat ion With Stent, Hernia Repair, Orthopedic Surgery, Tonsillectomy, Tubal Ligation Additional Past Surgical History / Comment(s): LEFT KNEE ARTHROSCOPY, BMT AND MYRINGOPLASTY, umbilical hernia repair, CABG 2020 Past Anesthesia/Blood Transfusion Reactions: No Reported Reaction Additional Past Anesthesia/Blood Transfusion Reaction / Comment(s): STATES AFTER LAST EAR SX (11/2013) HAD SORE MUSCLES AND WAS WEAK FOR 3-4 DAYS Date of Last Stent Placement:: 12/12/2022 Past Psychological History: No Psychological Hx Reported Smoking Status: Former smoker Past Alcohol Use History: None Reported Additional Past Alcohol Use History / Comment(s): SMOKED 1PPD, SMOKED 10 YEARS . QUIT SMOKING 30 YRS AGO OR MORE. Past Drug Use History: Marijuana Additional Drug Use History / Comment(s): Patient admitted 07/16/21 positive for methamphetamines, amphetamines, benzos, opiates, and marijuana. Patient states she was evicted from her apartment about 2 weeks ago because her son was arrested "for selling drugs" per patient. Pt states she has not done drugs in a couple years now. Patient states they did not live together and she doesnt know why she was - Past Family History Sister(s) Family Medical History: Cancer Brother(s) Family Medical History: Cancer Additional Family Medical History / Comment(s): brother had heart valve replacement Mother Family Medical History: Chest Pain / Angina, Diabetes Mellitus, Hyperlipidemia, Hypertension Father History Unknown: Yes Additional Family Medical History / Comment(s): , "had black lung" per patient, was a smoker Medications and Allergies Home Medications Medication Instructions Recorded Confirmed Type traMADol HCl [Ultram] 50 mg PO TID PRN 11/04/15 11/08/23 History traZODone HCL [Desyrel] 50 mg PO HS PRN 06/11/23 11/08/23 History Insulin Glargine/Lixisenatide 30 units SQ DAILY 30 Days #1 pen 07/01/23 11/08/23 Rx [Soliqua 100 Unit-33 Mcg/ml Pen] Albuterol Nebulized [Ventolin 2.5 mg INHALATION RT-Q4H PRN 07/22/23 11/08/23 History Nebulized] Ipratropium-Albuterol Nebulize 3 ml INHALATION RT-QID 07/22/23 11/08/23 History [Duoneb 0.5 mg-3 mg/3 ml Soln] Budesonide-Formot 160-4.5 Mcg 2 puff INHALATION RT-BID 30 Days 08/10/23 11/08/23 Rx [Symbicort 160-4.5 Mcg Inhaler] #1 each Aspirin 81 mg PO DAILY #30 tab 10/24/23 11/08/23 Rx Atorvastatin [Lipitor] 40 mg PO DAILY #30 tab 10/24/23 11/08/23 Rx Clopidogrel [Plavix] 75 mg PO DAILY #30 tab 10/24/23 11/08/23 Rx Furosemide [Lasix] 40 mg PO DAILY 30 Days #30 tab 10/24/23 11/08/23 Rx Metoprolol Succinate (ER) [Toprol 25 mg PO BID #60 tab 10/24/23 11/08/23 Rx XL] Spironolactone [Aldactone] 25 mg PO DAILY #30 tab 10/24/23 11/08/23 Rx Ferrous Sulfate [Iron (65 MG 325 mg PO W/LUNCH 30 Days #30 tab 11/11/23 Rx Elemental)] lisinopriL [Zestril] 5 mg PO DAILY 30 Days #30 tab 11/11/23 Rx predniSONE [Deltasone] 40 mg PO DAILY 5 Days #10 tab 11/22/23 Rx Allergies Allergy/AdvReac Type Severity Reaction Status Date / Time cephalexin Allergy Anaphylaxis Verified 12/16/23 21:37 cephalexin monohydrate Allergy Anaphylaxis Verified 12/16/23 21:37 [From Keflex] Sulfa (Sulfonamide Allergy Rash/Hives Verified 12/16/23 21:37 Antibiotics) Physical Exam Osteopathic Statement: *. No significant issues noted on an osteopathic structural exam other than those noted in the History and Physical/Consult. Vitals: Vital Signs Temp Pulse Pulse Resp BP BP BP 12/17/23 10:07 98.2 F 103 H 18 90/52 12/17/23 09:05 94 12/17/23 08:58 97 12/17/23 06:07 90/51 12/17/23 05:37 103 H 18 98/49 12/17/23 04:10 85/54 12/17/23 04:00 110 H 89/55 12/17/23 03:37 73/49 12/17/23 03:25 97.6 F 104 H 20 85/53 12/17/23 02:57 110 H 26 H 108/84 12/17/23 02:16 108 H 12/17/23 02:02 102 H 12/17/23 02:00 105 H 23 102/77 12/17/23 01:33 106 H 24 119/86 12/17/23 01:16 101 H 22 105/71 12/17/23 01:07 101 H 20 94/76 12/17/23 01:04 93 17 81/59 12/17/23 00:12 93 18 91/70 12/16/23 23:10 111 H 28 H 111/80 12/16/23 22:44 102 H 12/16/23 22:28 96 12/16/23 22:12 101 H 24 94/66 12/16/23 21:34 98 F 72 26 H Pulse Ox 12/17/23 10:07 94 L 12/17/23 09:05 12/17/23 08:58 12/17/23 06:07 12/17/23 05:37 96 12/17/23 04:10 12/17/23 04:00 12/17/23 03:37 12/17/23 03:25 95 12/17/23 02:57 97 12/17/23 02:16 12/17/23 02:02 12/17/23 02:00 94 L 12/17/23 01:33 95 12/17/23 01:16 96 12/17/23 01:07 96 12/17/23 01:04 94 L 12/17/23 00:12 99 12/16/23 23:10 100 12/16/23 22:44 12/16/23 22:28 12/16/23 22:12 100 12/16/23 21:34 98 Intake and Output 12/16/23 12/17/23 12/17/23 22:59 06:59 14:59 Intake Total 368 Output Total 200 200 Balance -200 168 Intake: IV 10 Invasive Line 2 10 Oral 358 Output: Urine 200 200 Other: Voiding Method Toilet # Voids 1 2 Weight 81.647 kg 81.647 kg No acute distress, oriented 3. No use of respiratory muscles or conversational dyspnea. No audible wheezing. HEENT examination is grossly unremarkable. Mucous membranes are moist. No oral lesions. Neck supple. Full range of motion. No adenopathy thyromegaly or neck vein distention. Cardiovascular examination reveals regular rhythm rate. S1-S2 normal. No S3 or S4. No discernible murmur noted. Heart sounds are distant. Heart rate 94 bpm. Lungs reveal coarse bilateral inspiratory and expiratory rhonchi. No crackles. No wheezes. Breath sounds equal. Room air saturation is 94 to 95%. Abdomen soft bowel sounds are heard. No masses or tenderness. Extremities are intact. No cyanosis or clubbing. The patient does have lower extremity edema. Skin is without rash or lesion. Neurologic examination is brief but nonfocal. Results - Laboratory Findings CBC and BMP: 12/16/23 23:59 12/16/23 22:14 Abnormal lab findings: Abnormal Labs 12/16/23 12/16/23 12/17/23 22:14 23:59 06:03 Hgb 8.9 L Hct 29.4 L MCV 67.7 L MCH 20.6 L MCHC 30.4 L RDW 19.5 H Sodium 133 L Glucose 123 H POC Glucose (mg/dL) 229 H - Diagnostic Findings Chest x-ray: image reviewed Assessment and Plan Assessment: Shortness of breath, with low saturations, likely multifactorial, in part related to COPD exacerbation, and mild fluid overload. History of coronary artery disease, status post bypass surgery. History of COPD, from previous tobacco use. History of CHF. History of diabetes mellitus. History of hyperlipidemia. History of hypertension. History of fibromyalgia. History of obstructive sleep apnea syndrome. History of polysubstance abuse. Plan: Plan dated December 17, 2023. The patient is seen today in room 369. Currently, the patient is on updrafts, with albuterol sulfate and ipratropium bromide. The patient is also getting Solu-Medrol, 60 mg every 6 hours. I add Symbicort, 160/4.5, 2 puffs twice a day. Yesterday, she developed hypotension, and received 1.5 L of fluid, and Solu-Medrol, 80 mg. Labs, x-rays, medications are all reviewed. I will add a procalcitonin level. If normal, the patient's antibiotic can be discontinued. Additional recommendations and suggestions are forthcoming. The patient did test negative for influenza, coronavirus, and RSV. Time with Patient: Greater than 30
[2023-12-17 11:42] LABS: Glucose,Whole Blood 254 mg/dL (70-110)
[2023-12-17 12:27] LABS: Urine Alcohol Negative (Negative)
[2023-12-17 12:28] LABS: Urine Barbiturate Negative (Negative); Urine Cocaine Negative (Negative); Urine Methadone Negative (Negative); Urine Opiates Negative (Negative); Urine Phencyclidine Negative (Negative)
[2023-12-17] MEDS ORDERED: INSULIN ASPART (NovoLOG) 100 UNIT/ML VIAL SQ SCH (12:30)
[2023-12-17 14:39] LABS: % Iron Saturation 3.94 (12.00-45.00)
[2023-12-17 16:27] LABS: Glucose,Whole Blood 285 mg/dL (70-110)
[2023-12-17] MEDS: BENZONATATE 100 MG CAP PO PRN (17:13)
[2023-12-17 20:15] LABS: Glucose,Whole Blood 245 mg/dL (70-110)
[2023-12-17] MEDS: SYMBICORT 160-4.5 MCG INHALER INHALATION SCH (21:03)
[2023-12-17] MEDS: AZITHROMYCIN 500 MG in SODIUM CHLORIDE 0.9% 250 ML IVPB SCH (21:50)
[2023-12-18 06:09] LABS: Glucose,Whole Blood 229 mg/dL (70-110)
[2023-12-18] MEDS: PANTOPRAZOLE 40 MG TABLET PO SCH (06:37)
[2023-12-18] MEDS: ENOXAPARIN 40 MG/0.4 ML SYRINGE SQ SCH (08:24)
[2023-12-18 09:29] LABS: ALT 15 U/L (4-34); AST 16 U/L (14-36); African American GFR (CKD) >90 (>60 ml/min/1.73 sqM); Albumin 3.4 g/dL (3.5-5.0); Alkaline Phosphatase 83 U/L (38-126); Anion Gap 9 mmol/L; Blood Urea Nitrogen 15 mg/dL (7-17); Calcium 8.7 mg/dL (8.4-10.2); Carbon Dioxide 20 mmol/L (22-30); Chloride 108 mmol/L (98-107); Glucose 259 mg/dL (74-99); Non-African American GFR(CKD) >90 (>60 ml/min/1.73 sqM); Potassium 4.2 mmol/L (3.5-5.1); Sodium 137 mmol/L (137-145); Total Bilirubin 0.3 mg/dL (0.2-1.3); Total Protein 6.1 g/dL (6.3-8.2)
[2023-12-18] MEDS: guaiFENesin-Coden 100-10MG/5ML 10 ML CUP PO PRN (09:29)
[2023-12-18] MEDS: FUROSEMIDE 10 MG/ML 4 ML VIAL IV STA (09:29)
[2023-12-18 09:33] LABS: Anisocytosis Slight; Basophils % (A) 0 %; Eosinophils % (A) 0 %; HCT 30.8 % (34.0-46.0); HGB 8.8 gm/dL (11.4-16.0); Hypochromasia Marked; Lymphocytes # (A) 0.4 k/uL (1.0-4.8); Lymphocytes % (A) 6 %; MCH 20.3 pg (25.0-35.0); MCHC 28.7 g/dL (31.0-37.0); MCV 70.9 fL (80.0-100.0); Microcytosis Marked; Monocytes # (A) 0.1 k/uL (0-1.0); Monocytes % (A) 2 %; Neutrophils # (A) 6.6 k/uL (1.3-7.7); Neutrophils % (A) 93 %; Platelet Count 292 k/uL (150-450); RBC 4.34 m/uL (3.80-5.40); RDW 19.5 % (11.5-15.5); WBC 7.1 k/uL (3.8-10.6)
[2023-12-18 11:26] LABS: Glucose,Whole Blood 342 mg/dL (70-110)
--- NOTE | 2023-12-18 11:40 | P.CRDCN ---
History of Present Illness Consult date: 12/18/23 Consult reason: congestive heart failure (hypotension) History of present illness: History of present illness: This is a 73-year-old female with past medical history of hypertension, diabetes, hyperlipidemia, coronary artery disease status post bypass surgery and stents, chronic systolic blood pressure with known EF of 30 to 35%. Patient was recently hospitalized in September 2023 at which time she was treated for a non- ST elevated myocardial infarction status post cardiac catheterization finding 80% in-stent stenosis of the proximal PDA stent, patent SIMPSON to LAD and sequential to ramus. No occluded radial graft from SIMPSON to OM. Elevated LVEDP. It was decided that medical management would be utillized. Patient had another hospitalization in October for acute on chronic systolic heart failure. We have been asked to evaluate the patient for CHF and low blood pressure. Patient presented to the emergency center due to cough with sputum production. She is unable to stop coughing. She denies having any fever or chills. She states she has some chest discomfort secondary to the coughing. She does have some lower extremity edema. She is not on home oxygen therapy. EKG sinus tachycardia with ventricular rate of 102, occasional PVCs. Left axis deviation, left ventricular hypertrophy. Chest x-ray: No acute process WBC 7.1, hemoglobin 8.8, platelet count 292. Sodium 137, potassium 4.2, chloride 108, CO2 20, BUN 15 creatinine 0.51. Blood sugar 259. Liver function tests are normal. Troponin negative x 3. proBNP 2130. Urine drug screen positive for cannabinoids. Urinalysis negative. Influenza A, influenza B, RSV, COVID-19 not detected. Home cardiac medications: Aspirin 81 mg daily, atorvastatin 40 mg daily, Plavix 75 mg daily, Lasix 40 mg daily, lisinopril 2.5 mg daily, Toprol-XL 25 mg twice daily, spironolactone 25 mg daily. Echocardiogram performed 10/19/2023 revealed mildly increased left ventricular wall thickness. EF 35%. Moderate mitral regurgitation, moderate aortic valve calcification without significant stenosis. Mild aortic regurgitation. Mild to moderate tricuspid regurgitation. RVSP 32. CABG 09/2021, SIMPSON to LAD and intermediate T graft left radial artery graft to first obtuse marginal, ligation of left atrial appendage. PCI 12/09/[address] Grewal: In the setting of a non-ST elevated NH cardiac catheterization revealed radial graft to OM occluded and OM appearing small caliber and subtotally occluded with progression of PDA. Patient underwent PCI of the PDA. Cardiac catheterization 10/18/[address] More revealed 80% in-stent stenosis of the proximal PDA stent. Patent SIMPSON to LAD and sequential to ramus. Known occluded radial graft from SIMPSON to OM. Elevated LVEDP. It was determined that patient was not best candidate for PCI and aggressive medical therapy was adv ised. Review Of Systems: At the time of my evaluation: Constitutional: No fever, no chills. No weakness, fatigue or lethargy. EENT: No headache. No dizziness. Lungs: No shortness of breath, + cough, + sputum production. No wheezing. Cardiovascular: No chest pain, no lower extremity edema. No palpitations. No paroxysmal nocturnal dyspnea. No orthopnea. No lightheadedness or dizziness. No syncopal episodes. Musculoskeletal: No myalgias. No muscle weakness, no frequent falls. Integumentary: No wounds. No rash. No unusual bruising. Neurologic: No aphasia. No facial droop. No change in mentation. Physical examination: Gen: This is a 73-year-old female appears to be in no acute distress. VS: reviewed blood pressure 126/66, heart rate 83. HEENT: Head is atraumatic, normocephalic. Pupils equal, round. Sclerae is anicteric. NECK: Supple. LUNGS: Bilateral wheezes and crackles. No intercostal retractions. HEART: Irregular rate and rhythm. No murmur. ABDOMEN: Soft No tenderness. EXTREMITIES: Mild pedal edema. Chronic lymphedema no calf tenderness. NEUROLOGICAL: Patient is awake, alert and oriented x3. Assessment: Acute on chronic systolic heart failure, mild COPD exacerbation Diabetes Hypertension Hyperlipidemia Coronary artery disease with previous CABG and stents and known 80% in-stent stenosis of the proximal PAD stent Anemia, chronic Plan: Resume patient's home cardiac medications IV Lasix 40 mg x 1 No need to repeat echocardiogram as this was done in September Further recommendations to follow based upon clinical course Thank you kindly for this consultation. Nurse practitioner note has been reviewed, I agree with documented findings and plan of care. Patient was seen and examined. 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 Poly substance abuse "when younger", 07/19/21 admitted for Acute delirium History of Any Multi-Drug Resistant Organisms: None Reported Past Surgical History: Cholecystectomy, Coronary Bypass/CABG, Heart Catheterization With Stent, Hernia Repair, Orthopedic Surgery, Tonsillectomy, Tubal Ligation Additional Past Surgical History / Comment(s): LEFT KNEE ARTHROSCOPY, BMT AND MYRINGOPLASTY, umbilical hernia repair, CABG 2020 Past Anesthesia/Blood Transfusion Reactions: No Reported Reaction Additional Past Anesthesia/Blood Transfusion Reaction / Comment(s): STATES AFTER LAST EAR SX (11/2013) HAD SORE MUSCLES AND WAS WEAK FOR 3-4 DAYS Date of Last Stent Placement:: 12/12/2022 Past Psychological History: No Psychological Hx Reported Smoking Status: Former smoker Past Alcohol Use History: None Reported Additional Past Alcohol Use History / Comment(s): SMOKED 1PPD, SMOKED 10 YEARS . QUIT SMOKING 30 YRS AGO OR MORE. Past Drug Use History: Marijuana Additional Drug Use History / Comment(s): Patient admitted 07/16/21 positive for methamphetamines, amphetamines, benzos, opiates, and marijuana. Patient states she was evicted from her apartment about 2 weeks ago because her son was arrested "for selling drugs" per patient. Pt states she has not done drugs in a couple years now. Patient states they did not live together and she doesnt know why she was - Past Family History Sister(s) Family Medical History: Cancer Brother(s) Family Medical History: Cancer Additional Family Medical History / Comment(s): brother had heart valve replacement Mother Family Medical History: Chest Pain / Angina, Diabetes Mellitus, Hyperlipidemia, Hypertension Father History Unknown: Yes Additional Family Medical History / Comment(s): , "had black lung" per patient, was a smoker Medications and Allergies Home Medications Medication Instructions Recorded Confirmed Type traMADol HCl [Ultram] 50 mg PO TID PRN 11/04/15 12/17/23 History traZODone HCL [Desyrel] 50 mg PO HS PRN 06/11/23 12/17/23 History Insulin Glargine/Lixisenatide 30 units SQ DAILY 30 Days #1 pen 07/01/23 12/17/23 Rx [Soliqua 100 Unit-33 Mcg/ml Pen] Albuterol Nebulized [Ventolin 2.5 mg INHALATION RT-Q4H PRN 07/22/23 12/17/23 History Nebulized] Ipratropium-Albuterol Nebulize 3 ml INHALATION RT-QID 07/22/23 12/17/23 History [Duoneb 0.5 mg-3 mg/3 ml Soln] Budesonide-Formot 160-4.5 Mcg 2 puff INHALATION RT-BID 30 Days 08/10/23 12/17/23 Rx [Symbicort 160-4.5 Mcg Inhaler] #1 each Aspirin 81 mg PO DAILY #30 tab 10/24/23 12/17/23 Rx Atorvastatin [Lipitor] 40 mg PO DAILY #30 tab 10/24/23 12/17/23 Rx Clopidogrel [Plavix] 75 mg PO DAILY #30 tab 10/24/23 12/17/23 Rx Furosemide [Lasix] 40 mg PO DAILY 30 Days #30 tab 10/24/23 12/17/23 Rx Metoprolol Succinate (ER) [Toprol 25 mg PO BID #60 tab 10/24/23 12/17/23 Rx XL] Spironolactone [Aldactone] 25 mg PO DAILY #30 tab 10/24/23 12/17/23 Rx Ferrous Sulfate [Iron (65 MG 325 mg PO W/LUNCH 30 Days #30 tab 11/11/23 12/17/23 Rx Elemental)] lisinopriL [Zestril] 5 mg PO DAILY 30 Days #30 tab 11/11/23 12/17/23 Rx Allergies Allergy/AdvReac Type Severity Reaction Status Date / Time cephalexin Allergy Anaphylaxis Verified 12/17/23 11:48 cephalexin monohydrate Allergy Anaphylaxis Verified 12/17/23 11:48 [From Keflex] Sulfa (Sulfonamide Allergy Rash/Hives Verified 12/17/23 11:48 Antibiotics) Physical Exam Vitals: Vital Signs Temp Pulse Pulse Resp BP Pulse Ox 12/18/23 08:00 98.4 F 102 H 16 118/77 97 12/18/23 02:00 97.6 F 99 20 131/76 99 12/17/23 21:12 100 12/17/23 21:03 99 12/17/23 20:30 106 H 12/17/23 20:19 106 H 18 126/66 96 12/17/23 16:53 98.2 F 84 20 114/65 95 12/17/23 16:11 197 H 12/17/23 16:02 101 H 12/17/23 12:12 104 H 12/17/23 12:11 97.6 F 97 20 96/50 99 12/17/23 12:02 104 H 12/17/23 10:07 98.2 F 103 H 18 90/52 94 L Intake and Output 12/17/23 12/18/23 12/18/23 22:59 06:59 14:59 Intake Total 340 300 110 Output Total 700 900 Balance -360 -600 110 Intake: Oral 340 300 110 Output: Urine 700 700 Emesis 200 Other: Voiding Method Toilet Toilet # Voids 1 1 # Bowel Movements 1 Results 12/18/23 08:08 12/18/23 08:08 Current Medications Generic Name Dose Route Start Last Admin Trade Name Freq PRN Reason Stop Dose Admin Albuterol/Ipratropium 3 ml 12/17/23 00:36 12/17/23 02:01 Ipratropium-Albuterol 3 Ml Neb INHALATION 3 ml RT-Q2H PRN Administration Shortness Of Breath Or Wheezing Albuterol/Ipratropium 3 ml 12/17/23 08:00 12/18/23 07:48 Ipratropium-Albuterol 3 Ml Neb INHALATION Not Given RT-QID DIMA Benzonatate 200 mg 12/17/23 17:02 12/18/23 09:00 Benzonatate 100 Mg Cap PO 200 mg TID PRN Administration Cough Budesonide/Formoterol Fumarate 2 puff 12/17/23 20:00 12/18/23 07:48 Symbicort 160-4.5 Mcg Inhaler INHALATION Not Given RT-BID DIMA Dextrose/Water 25 ml 12/17/23 10:18 Dextrose 50% Syringe 50 Ml IVP PER PROTOCOL PRN Hypoglycemia Protocol Dextrose/Water 50 ml 12/17/23 10:18 Dextrose 50% Syringe 50 Ml IVP PER PROTOCOL PRN Hypoglycemia Protocol Enoxaparin Sodium 40 mg 12/18/23 09:00 12/18/23 08:24 Enoxaparin 40 Mg/0.4 Ml Syringe SQ 40 mg DAILY DIMA Administration Sodium Chloride 1,000 mls @ 50 mls/hr 12/17/23 02:15 12/17/23 12:12 Saline 0.9% IV 50 mls/hr .Q20H DIMA Administration Azithromycin 500 mg/ Sodium 250 mls @ 250 mls/hr 12/17/23 21:00 12/17/23 21:50 Chloride IVPB 12/18/23 21:59 250 mls/hr HS DIMA Administration Protocol Insulin Aspart 0 unit 12/17/23 07:30 12/18/23 06:37 Insulin Aspart (Novolog) 100 Unit/Ml Vial SQ 4 unit ACHS DIMA Administration Protocol Methylprednisolone Sodium Succinate 60 mg 12/17/23 06:00 12/18/23 05:57 Methylprednisolone Sod Succi 125 Mg/2 Ml Vial IV 60 mg Q6HR DIMA Administration Naloxone HCl 0.2 mg 12/17/23 00:36 Naloxone 0.4 Mg/Ml 1 Ml Vial IVP Q2M PRN Opioid Reversal Pantoprazole Sodium 40 mg 12/18/23 07:30 12/18/23 06:37 Pantoprazole 40 Mg Tablet PO 40 mg [id number] DIMA Administration Tramadol HCl 50 mg 12/17/23 06:00 12/17/23 22:35 Tramadol 50 Mg Tab PO 50 mg Q4H PRN Administration Pain Intake and Output 12/17/23 12/18/23 12/18/23 22:59 06:59 14:59 Intake Total 340 300 110 Output Total 700 900 Balance -360 -600 110 Intake: Oral 340 300 110 Output: Urine 700 700 Emesis 200 Other: Voiding Method Toilet Toilet # Voids 1 1 # Bowel Movements 1 12/16/23 23:59 12/16/23 22:14
[2023-12-18 11:48] LABS: Glucose,Whole Blood 425 mg/dL (70-110)
[2023-12-18] MEDS: DEXMEDETOMIDINE/0.9% NACL(PMX) 400 MCG in EMPTY BAG 1 BAG IV SCH (11:54)
--- NOTE | 2023-12-18 12:33 | XR ---
EXAMINATION TYPE: XR chest 1V DATE OF EXAM: 12/18/2023 COMPARISON: 12/16/2023 HISTORY: 73-year-old female BIPAP, respiratory difficulties TECHNIQUE: Single frontal view of the chest is obtained. FINDINGS: Median sternotomy wires with post-CABG clips. Heart borderline in size. Airspace disease t hroughout the right lung and interstitial and patchy opacity throughout the left lung. No sizable ple ural effusion. IMPRESSION: Extensive new air space disease throughout the right lung and interstitial and patchy op acity throughout the left lung. Correlate for etiology such as multifocal pneumonia, aspiration, inte rstitial pneumonitis, or atypical pulmonary edema.
[2023-12-18] MEDS: CISATRACURIUM 2 MG/ML 5 ML VIAL IV ONE ×2 (12:35→17:23)
--- NOTE | 2023-12-18 13:07 | P.PN ---
Subjective Progress Note Date: 12/18/23 Mari Moore, is a 73 year old female who presented to [facility] with a chief complaint of worsening shortness of breath. Patient reports she's had a nonproductive cough and generalized weakness and upper respiratory symptoms over the past few days. Patient has an extensive medical history including asthma, heart failure, COPD, coronary artery disease with previous history of CABG, diabetes mellitus, fibromyalgia, sleep apnea, ex- smoker and current marijuana user. Chest x-ray completed in ER showing no acute pulmonary infiltrate. Current vital signs showing temperature 97.6, heart rate 97, respiratory 18, blood pressure 98/49 with a pulse ox of 96% on room air patient testing negative for influenza RSV and COVID-19. UA negative. Troponins negative 2. BNP elevated at 2130. White blood cell within normal limits hemoglobin 8.9 at this time primary service is consulted. Will consult cardiology services in order 2-D echo. Iron studies ordered for anemia patient started on IV Solu-Medrol DuoNeb breathing treatments. At this time pulmonary and cardiology services consulted. Continue azithromycin for upper respiratory infection. Iron studies for low hemoglobin. On 12/18/2023 patient was seen and examined in the ICU her condition has worsened this morning, she was having severe continuous cough and shortness of breath, she had decrease in her O2 sat duration, she was transferred to intensive care unit, chest x-ray revealed significant worsening since x-ray done on 12/16/2023 with large right middle lobe and right lower lobe infiltrates, possibly related to aspiration. At this time patient is intubated, sedated started on mechanical ventilation, IV Zosyn was added to her medication regimen, pulmonary critical care following. Objective - Vital Signs Vital signs: Vital Signs Temp 98.4 F 12/18/23 08:00 Pulse 155 H 12/18/23 11:25 Resp 16 12/18/23 08:00 BP 118/77 12/18/23 08:00 Pulse Ox 97 12/18/23 08:00 FiO2 100 12/18/23 12:27 Intake & Output 12/17/23 12/18/23 12/18/23 18:59 06:59 18:59 Intake Total 844 522 110 Output Total 900 900 Balance -56 -378 110 Intake: IV 10 Invasive Line 2 10 Oral 834 522 110 Output: Urine 900 700 Emesis 200 Other: Voiding Method Toilet Toilet Toilet # Voids 1 1 # Bowel Movements 1 - Exam In general patient is intubated sedated maintained on mechanical ventilation Head normocephalic and atraumatic Neck supple no JVD no goiter Lungs exam reveals coarse crackles bilaterally no wheezing Heart regular rate and rhythm S1-S2, no rub or gallop Abdomen is soft nontender nondistended positive bowel sounds no hepatos plenomegaly Extremities no edema Neuro no gross focal deficit - Labs CBC & Chem 7: 12/18/23 08:08 12/18/23 08:08 Labs: Abnormal Lab Results - Last 24 Hours (Table) 12/17/23 12/17/23 12/17/23 Range/Units 08:34 16:26 20:14 Hgb (11.4-16.0) gm/dL Hct (34.0-46.0) % MCV (80.0-100.0) fL MCH (25.0-35.0) pg MCHC (31.0-37.0) g/dL RDW (11.5-15.5) % Lymphocytes # (1.0-4.8) k/uL Chloride (98-107) mmol/L Carbon Dioxide (22-30) mmol/L Creatinine (0.52-1.04) mg/dL Glucose (74-99) mg/dL POC Glucose (mg/dL) 285 H 245 H (70-110) mg/dL Iron 15 L (50-170) UG/DL % Saturation 3.94 L (12.00-45.00) Total Protein (6.3-8.2) g/dL Albumin (3.5-5.0) g/dL 12/18/23 12/18/23 12/18/23 Range/Units 06:07 08:08 08:08 Hgb 8.8 L (11.4-16.0) gm/dL Hct 30.8 L (34.0-46.0) % MCV 70.9 L (80.0-100.0) fL MCH 20.3 L (25.0-35.0) pg MCHC 28.7 L (31.0-37.0) g/dL RDW 19.5 H (11.5-15.5) % Lymphocytes # 0.4 L (1.0-4.8) k/uL Chloride 108 H (98-107) mmol/L Carbon Dioxide 20 L (22-30) mmol/L Creatinine 0.51 L (0.52-1.04) mg/dL Glucose 259 H (74-99) mg/dL POC Glucose (mg/dL) 229 H (70-110) mg/dL Iron (50-170) UG/DL % Saturation (12.00-45.00) Total Protein 6.1 L (6.3-8.2) g/dL Albumin 3.4 L (3.5-5.0) g/dL 12/18/23 12/18/23 Range/Units 11:25 11:46 Hgb (11.4-16.0) gm/dL Hct (34.0-46.0) % MCV (80.0-100.0) fL MCH (25.0-35.0) pg MCHC (31.0-37.0) g/dL RDW (11.5-15.5) % Lymphocytes # (1.0-4.8) k/uL Chloride (98-107) mmol/L Carbon Dioxide (22-30) mmol/L Creatinine (0.52-1.04) mg/dL Glucose (74-99) mg/dL POC Glucose (mg/dL) 342 H 425 H (70-110) mg/dL Iron (50-170) UG/DL % Saturation (12.00-45.00) Total Protein (6.3-8.2) g/dL Albumin (3.5-5.0) g/dL Assessment and Plan Assessment: 1. Acute exacerbation of COPD. 2. Acute on chronic exacerbation of systolic CHF 3. Anemia. Iron studies ordered 4. Cardiomyopathy with an EF of 30-35% 5. History of non-STEMI September 2023 status post cardiac cath showing 80% stenosis of the stent patent 6. History of coronary artery disease disease status post CABG 7. History of diabetes mellitus type II 8. History of essential hypertension 9. History of hyperlipidemia. 10. Acute hypoxic respiratory failure requiring intubation and mechanical ventilation on 12/18/2023 11. Right middle lobe and right lower lobe infiltrates, suggestive of pneumonia, possible aspiration. DVT prophylaxis Lovenox. GI prophylaxis Protonix Cardiology and pulmonary service is consulted. Patient started on IV Solu-Medrol Repeat labs ordered iron studies ordered
[2023-12-18] MEDS: propofoL 100 ML IV ONE (13:15)
[2023-12-18] MEDS: SODIUM CHLORIDE 0.9% 1,000 ML IV ONE ×2 (13:16→14:45)
--- NOTE | 2023-12-18 13:21 | P.PN ---
Subjective Progress Note Date: 12/18/23 On 12/18/2023, the patient is being seen in follow-up on the medical floor. The patient was found to be in significant degree of respiratory distress and the patient was using some accessory muscles of breathing. She was having frequent coughing episode and she was unable to catch her breath in between those coughing episodes. She was still responsive and communicating. At that point, I made recommendations to transfer this patient to the intensive care unit for further monitoring. Within 20 minutes, the patient became more diaphoretic, lethargic, quite obtunded and at that point, the patient had to be intubated and placed on the mechanical ventilator. I personally intubated the patient in the intensive care unit. I have her on a tidal volume of 350, rate of 24 with an FiO2 of 100% with a PEEP of 5. Postintubation chest x-ray showed extensive consolidation of the right lung and there is new airspace disease throughout the right lung along with some areas of consolidations and interstitial changes. Post NG tube insertion, the patient's stomach was decompressed and there was total amount of 500 cc of gastric material aspirated from the stomach. No reported aspiration. Obviously, the patient has multifocal pneumonia at this point in time more extensive in the right lung especially in the right middle and right lower lobe area. The white cell count at 7.1 with a hemoglobin 8.8, BUN is at 15 with a creatinine of 0.5 and sodium levels at 137. Potassium level is at 4.2. The patient was started on propofol for sedation. She was given also a dose of Nimbex during the intubation process 10 mg IV x 1. Blood gas are still pending. She may need a bronchoscopy and right lower lobe bronchoalveolar lavage. She remains on bronchodilators. She remains on steroids. Antibiotics will be modified and Zosyn will be added in combination with Zithromax. She has not required any pressors yet. She will be given a bolus of 1 L and following that she will be started on a maintenance of 100 cc an hour. Condition is obviously is critical at this point in time. Echocardiogram that was obtained on 10/19/2023 showed systolic heart failure with an underlying left ventricular ejection fraction of 30 to 35%. The patient also had mild RV dilatation, mild aortic regurgitation, mild to moderate mitral Regurgitation with a right ventricular systolic pressure of 32. He also has moderate degree of pulm hypertension. Objective - Vital Signs Vital signs: Vital Signs Temp 98.4 F 12/18/23 08:00 Pulse 105 H 12/18/23 09:51 Resp 16 12/18/23 08:00 BP 118/77 12/18/23 08:00 Pulse Ox 97 12/18/23 08:00 FiO2 Intake & Output 12/17/23 12/18/23 12/18/23 18:59 06:59 18:59 Intake Total 844 522 110 Output Total 900 900 Balance -56 -378 110 Intake: IV 10 Invasive Line 2 10 Oral 834 522 110 Output: Urine 900 700 Emesis 200 Other: Voiding Method Toilet Toilet # Voids 1 1 # Bowel Movements 1 - Exam Sedated on propofol and, comfortable, intubated on mechanical ventilator. Orogastric and orotracheal tube are both in place. Head exam was generally normal. There was no scleral icterus or corneal arcus. Mucous membranes were moist. Neck supple. Full range of motion. No adenopathy thyromegaly or neck vein distention. Cardiovascular examination reveals regular rhythm rate. S1-S2 normal. No S3 or S4. No discernible murmur noted. Heart sounds are distant. Patient is tachycardic although the rhythm strip is showing some sinus rhythm Lungs reveal coarse bilateral inspiratory and expiratory rhonchi. No crackles. Marked diminished breath sounds along with diffuse expiratory wheezes throughout the lung powers bilaterally. Abdomen soft bowel sounds are heard. No masses or tenderness. Extremities are intact. No cyanosis or clubbing. The patient does have a +1 edema lower extremities bilaterally Skin is without rash or lesion. Neurologic examination, the patient is currently sedated and the patient was withdrawing to painful stimulation moving all 4 extremities prior to intubation. Pupils are equal reactive to light. - Labs CBC & Chem 7: 12/18/23 08:08 12/18/23 08:08 Labs: Abnormal Lab Results - Last 24 Hours (Table) 12/17/23 12/17/23 12/17/23 Range/Units 06:30 08:34 11:40 Hgb (11.4-16.0) gm/dL Hct (34.0-46.0) % MCV (80.0-100.0) fL MCH (25.0-35.0) pg MCHC (31.0-37.0) g/dL RDW (11.5-15.5) % Lymphocytes # (1.0-4.8) k/uL Chloride (98-107) mmol/L Carbon Dioxide (22-30) mmol/L Creatinine (0.52-1.04) mg/dL Glucose (74-99) mg/dL POC Glucose (mg/dL) 254 H (70-110) mg/dL Iron 15 L (50-170) UG/DL % Saturation 3.94 L (12.00-45.00) Total Protein (6.3-8.2) g/dL Albumin (3.5-5.0) g/dL U Cannabinoids Screen Positive A (Negative) 12/17/23 12/17/23 12/18/23 Range/Units 16:26 20:14 06:07 Hgb (11.4-16.0) gm/dL Hct (34.0-46.0) % MCV (80.0-100.0) fL MCH (25.0-35.0) pg MCHC (31.0-37.0) g/dL RDW (11.5-15.5) % Lymphocytes # (1.0-4.8) k/uL Chloride (98-107) mmol/L Carbon Dioxide (22-30) mmol/L Creatinine (0.52-1.04) mg/dL Glucose (74-99) mg/dL POC Glucose (mg/dL) 285 H 245 H 229 H (70-110) mg/dL Iron (50-170) UG/DL % Saturation (12.00-45.00) Total Protein (6.3-8.2) g/dL Albumin (3.5-5.0) g/dL U Cannabinoids Screen (Negative) 12/18/23 12/18/23 Range/Units 08:08 08:08 Hgb 8.8 L (11.4-16.0) gm/dL Hct 30.8 L (34.0-46.0) % MCV 70.9 L (80.0-100.0) fL MCH 20.3 L (25.0-35.0) pg MCHC 28.7 L (31.0-37.0) g/dL RDW 19.5 H (11.5-15.5) % Lymphocytes # 0.4 L (1.0-4.8) k/uL Chloride 108 H (98-107) mmol/L Carbon Dioxide 20 L (22-30) mmol/L Creatinine 0.51 L (0.52-1.04) mg/dL Glucose 259 H (74-99) mg/dL POC Glucose (mg/dL) (70-110) mg/dL Iron (50-170) UG/DL % Saturation (12.00-45.00) Total Protein 6.1 L (6.3-8.2) g/dL Albumin 3.4 L (3.5-5.0) g/dL U Cannabinoids Screen (Negative) Assessment and Plan Plan: Acute hypoxic respiratory failure, currently intubated and mechanically ventilated Multifocal pneumonia with extensive consolidation and airspace disease involving the right middle/right lower lobe area. This is a new finding. The same time, there is increased central markings bilaterally and the possibility of underlying CHF cannot be completely excluded. The patient got transferred to the intensive care unit and the patient was initially placed on a BiPAP and subsequent the patient was intubated and placed on the mechanical ventilator. Marijuana smoker Severe respiratory distress and dyspnea secondary to above in addition to vigorous cough. Currently intubated on mechanical ventilator. History of coronary artery disease, status post bypass surgery. History of COPD, from previous tobacco use. Chronic systolic heart failure with an ejection fraction of 30 to 35% along with moderate MR and mild to moderate pulm hypertension with a PA pressure of 32 Sinus tachycardia versus MAT History of diabetes mellitus, with a component of steroid-induced hyperglycemia History of hyperlipidemia. History of hypertension. History of fibromyalgia. History of obstructive sleep apnea syndrome. History of polysubstance abuse. Plan Keep the patient intubated on mechanical ventilator. Awaiting blood gases Keep the patient on the same ventilator setting. Continue propofol for sedation Give the patient a bolus of 1 L of normal saline Cardizem drip for rate control if the patient continues to be tachycardic despite adequate sedation and fluids Continue Zithromax and add Zosyn and vancomycin Will continue bronchodilators Continue Perforomist and Pulmicort updrafts twice a day Continue IV Solu-Medrol Will need a bronchoscopy and lavage of the right lower lobe for microbial diagnosis Repeat labs Insulin drip if needed for blood sugar control. The patient has significant hyperglycemia at this point in time. Lovenox 40 mg subcu for DVT prophylaxis Will continue to follow. Condition is critical and will continue to follow and make further recom mendations based on her progress. This is a critical care evaluation that was done more than 30 minutes. This is excluding time to do any procedures. Time with Patient: Greater than 30
[2023-12-18 13:23] LABS: ABG Base Excess -13.3 mmol/L; ABG HCO3 17 mmol/L (21-25); ABG Oxygen Saturation 97.8 % (94-97); ABG PCO2 59 mmHg (35-45); ABG PO2 176 mmHg (83-108); ABG TCO2 19 mmol/L (19-24); Allen Test Performed? Yes
--- NOTE | 2023-12-18 13:23 | XR ---
EXAMINATION TYPE: XR chest 1V portable DATE OF EXAM: 12/18/2023 Comparison: Earlier today Clinical History: 73-year-old female Tube placement Findings: ET tube tip appears low, possibly measuring as little as 1.5 cm from the nahun. NG tube courses belo w the diaphragm. Median sternotomy wires and post-CABG clips. Heart is unenlarged. Bilateral airspace disease, right greater than left shows slight interval worsening. No sizable pleural effusion. Impression: 1. ET tube is low, tip 1.5 cm from the nahun. Pull back 2 cm and reassess at follow-up. 2. Bilateral airspace disease, right greater than left, shows slight interval worsening from earlier today.
--- NOTE | 2023-12-18 13:26 | P.PCN ---
Date of Procedure: 12/18/23 Preoperative Diagnosis: Acute hypoxic/hypercapnic respiratory failure secondary to COPD exacerbation pneumonia Postoperative Diagnosis: same Central line insertion, arterial line insertion, intubation Anesthesia: MAC Surgeon: Silvia Murry Estimated Blood Loss (ml): 0 Pathology: none sent Disposition: ICU Operative Findings: Indication: Hemodynamic monitoring. A time-out was completed verifying correct patient, procedure, site, positioning, and implant(s) or special equipment if applicable. Allens test was performed to ensure adequate perfusion. The patients right forearm was prepped and draped in sterile fashion. 1% Lidocaine was used to anesthetize the area. An 18G Arrow arterial line was introduced into the radial artery. The catheter was threaded over the guide wire and the needle was removed with appropriate pulsatile blood return. Blood loss was minimal. The catheter was then sutured in place to the skin and a sterile dressing applied. Perfusion to the extremity distal to the point of catheter insertion was checked and found to be adequate. The patient tolerated the procedure well and there were no complications. Indication: Hemodynamic monitoring/Intravenous access. A time-out was completed verifying correct patient, procedure, site, positioning, and implant(s) or special equipment if applicable. The patient was placed in a dependent position appropriate for central line placement based on the vein to be cannulated. The patients right groin was prepped and draped in sterile fashion. 1% Lidocaine was used to anesthetize the surrounding skin area. A triple lumen 9F Cordis catheter was introduced into the right common femoral vein using Seldinger technique. The catheter was threaded smoothly over the guide wire and appropriate blood return was obtained. Each lumen of the catheter was evacuated of air and flushed with sterile saline. The catheter was then sutured in place to the skin and a sterile dressing applied. Perfusion to the extremity distal to the point of catheter insertion was checked and found to be adequate. The patient tolerated the procedure well and there were no complications. Indication: Respiratory compromise. A time-out was completed verifying correct patient, procedure, site, positioning, and implant(s) or special equipment if applicable. The patient was positioned appropriately and a # 8 endotracheal tube was placed under direct laryngoscopy. The tube was anchored at 22 cm at the teeth. Correct placement was confirmed by presence of bilateral breath sounds without air sounds in the abdomen on auscultation. An end-tidal CO2 monitor was also used to confirm tracheal placement of the ET tube. A chest x-ray was ordered to assess for pneumothorax and verify endotracheal tube placement. The patient tolerated the procedure well and there were no complications.
[2023-12-18] MEDS ORDERED: VANCOMYCIN IV PER PHARMACY 1 EACH MISC MISCELLANE PRN (13:29)
[2023-12-18 13:33] LABS: ABG PH 7.07 (7.35-7.45)
[2023-12-18] MEDS: DILTIAZEM 125 MG in SODIUM CHLORIDE 0.9% 100 ML IV SCH ×2 (13:42→19:30)
[2023-12-18] MEDS: VANCOMYCIN 1,750 MG in SODIUM CHLORIDE 0.9% 500 ML 500 ML IVPB ONE (15:00)
[2023-12-18 15:01] LABS: Glucose,Whole Blood 514 mg/dL (70-110)
[2023-12-18 15:06] LABS: Glucose,Whole Blood 453 mg/dL (70-110)
[2023-12-18] MEDS: INSULIN REGULAR 100 UNIT in SODIUM CHLORIDE 0.9% 100 ML IV SCH (15:23)
[2023-12-18 15:25] LABS: ABG HCO3 17 mmol/L (21-25); ABG Oxygen Saturation 93.9 % (94-97); ABG PCO2 51 mmHg (35-45); ABG PO2 93 mmHg (83-108); ABG TCO2 19 mmol/L (19-24); Allen Test Performed? Yes
[2023-12-18 15:27] LABS: ABG PH 7.13 (7.35-7.45)
[2023-12-18 16:23] LABS: Glucose,Whole Blood 389 mg/dL (70-110)
[2023-12-18] MEDS: PIPERACILLIN-TAZOBACTAM 3.375 GM in SODIUM CHLORIDE 0.9% 100 ML IVPB SCH (17:10)
--- NOTE | 2023-12-18 17:13 | P.PCN ---
Date of Procedure: 12/18/23 Preoperative Diagnosis: Right lower lobe pneumonia Postoperative Diagnosis: Right lower lobe pneumonia Procedure(s) Performed: Flexible bronchoscopy, bronchoalveolar lavage of the right lower lobe Anesthesia: ANTHONY Surgeon: Silvia Murry Estimated Blood Loss (ml): 0 Pathology: other Condition: critical Disposition: ICU Operative Findings: This patient was intubated on mechanical ventilator and the postintubation chest x-ray showed extensive right lung consolidation. Flexible bronchoscopy was done in the intensive care unit. The patient was already intubated on mechanical ventilator. The patient was placed on 100% FiO2. The patient was sedated with propofol. The flexible bronchoscope was introduced through the orotracheal tube and was advanced to the lower trachea. The tip of the orotracheal tube was seen around 1 cm above the nahun. The airway inspection was done and the visualized airways include the distal trachea, bilateral mainstem bronchi, right upper lobe bronchus, bronchus diabetes, right middle lobe bronchus, right lower lobe bronchus, left upper lobe bronchus and left lower lobe bronchus. The various 10 segments on the right and 8 segments on the left were also visualized. Loose frothy respiratory secretions were encountered throughout the airways more so in the right lower lobe. The bronchoscope was wedged in the anterior segment of the right lower lobe. A total of 60 cc of saline was infused and 20 cc of aspirate was obtained without any complications. Aspirate was sent for Gram stain and culture. No endobronchial tumors or lesions. No foreign bodies. No signs of any aspiration. The flexible bronchoscope was removed and the procedure was terminated. The patient had no oxygen saturations throughout the procedure and the patient remained hemodynamically stable.
[2023-12-18 17:21] LABS: Glucose,Whole Blood 345 mg/dL (70-110)
[2023-12-18] MEDS: SODIUM CHLORIDE 0.9% 1,000 ML IV SCH (17:36)
[2023-12-18 18:08] LABS: Glucose,Whole Blood 287 mg/dL (70-110)
[2023-12-18 19:06] LABS: Glucose,Whole Blood 238 mg/dL (70-110)
[2023-12-18] MEDS: FORMOTEROL FUMARATE 20 MCG/2 ML NEBU INHALATION SCH (19:58)
[2023-12-18] MEDS: BUDESONIDE 0.5 MG/2 ML NEBU INHALATION SCH (19:58)
[2023-12-18 20:04] LABS: ABG Base Excess -10.3 mmol/L; ABG HCO3 17 mmol/L (21-25); ABG PCO2 43 mmHg (35-45); ABG PH 7.22 (7.35-7.45); ABG PO2 162 mmHg (83-108); ABG TCO2 19 mmol/L (19-24); Allen Test Performed? Yes
[2023-12-18 20:12] LABS: Glucose,Whole Blood 179 mg/dL (70-110)
[2023-12-18 20:14] LABS: ABG Oxygen Saturation 97.2 % (94-97)
[2023-12-18] MEDS: SODIUM BICARB 8.4% 50 ML SYR (1 MEQ/ML) IV STA (20:50)
[2023-12-18] MEDS: CHLORHEXIDINE GLUCONATE 15 ML CUP MUCOUS MEM SCH (20:58)
[2023-12-18 21:05] LABS: Glucose,Whole Blood 137 mg/dL (70-110)
[2023-12-18 22:16] LABS: Glucose,Whole Blood 127 mg/dL (70-110)
[2023-12-18 23:07] LABS: Glucose,Whole Blood 155 mg/dL (70-110)
[2023-12-18] MEDS: NOREPINEPHRINE 4 MG in SODIUM CHLORIDE 0.9% 250 ML IV SCH (23:16)
[2023-12-19 00:10] LABS: Glucose,Whole Blood 161 mg/dL (70-110)
[2023-12-19] MEDS: VANCOMYCIN 1,750 MG in SODIUM CHLORIDE 0.9% 500 ML 500 ML IVPB SCH ×2 (00:24→20:09)
[2023-12-19 01:21] LABS: Glucose,Whole Blood 166 mg/dL (70-110)
[2023-12-19 02:10] LABS: Glucose,Whole Blood 166 mg/dL (70-110)
[2023-12-19 03:19] LABS: Glucose,Whole Blood 162 mg/dL (70-110)
[2023-12-19 04:15] LABS: Glucose,Whole Blood 165 mg/dL (70-110)
[2023-12-19 04:39] LABS: Anisocytosis Moderate; Basophils % (A) 0 %; Eosinophils % (A) 0 %; HCT 31.7 % (34.0-46.0); HGB 9.1 gm/dL (11.4-16.0); Hypochromasia Marked; Lymphocytes # (A) 0.4 k/uL (1.0-4.8); Lymphocytes % (A) 4 %; MCH 20.5 pg (25.0-35.0); MCHC 28.7 g/dL (31.0-37.0); MCV 71.4 fL (80.0-100.0); Microcytosis Marked; Monocytes # (A) 0.2 k/uL (0-1.0); Monocytes % (A) 2 %; Neutrophils # (A) 9.2 k/uL (1.3-7.7); Neutrophils % (A) 94 %; Platelet Count 288 k/uL (150-450); RBC 4.44 m/uL (3.80-5.40); RDW 20.2 % (11.5-15.5); WBC 9.9 k/uL (3.8-10.6)
[2023-12-19 04:48] LABS: ALT 448 U/L (4-34); AST 525 U/L (14-36); African American GFR (CKD) 69 (>60 ml/min/1.73 sqM); Albumin 2.6 g/dL (3.5-5.0); Alkaline Phosphatase 84 U/L (38-126); Anion Gap 4 mmol/L; Blood Urea Nitrogen 25 mg/dL (7-17); Calcium 7.8 mg/dL (8.4-10.2); Carbon Dioxide 22 mmol/L (22-30); Chloride 117 mmol/L (98-107); Glucose 156 mg/dL (74-99); Magnesium 1.9 mg/dL (1.6-2.3); Non-African American GFR(CKD) 60 (>60 ml/min/1.73 sqM); Potassium 3.8 mmol/L (3.5-5.1); Sodium 143 mmol/L (137-145); Total Bilirubin 0.4 mg/dL (0.2-1.3); Total Protein 5.1 g/dL (6.3-8.2)
[2023-12-19 05:10] LABS: Glucose,Whole Blood 173 mg/dL (70-110)
[2023-12-19 05:28] LABS: Appearance,BF Bloody (Clear); RBC, Body Fluid 1010000 /UL (0-2000)
[2023-12-19 05:58] LABS: ABG Base Excess -2.9 mmol/L; ABG HCO3 23 mmol/L (21-25); ABG Oxygen Saturation 99.2 % (94-97); ABG PCO2 40 mmHg (35-45); ABG PH 7.36 (7.35-7.45); ABG PO2 189 mmHg (83-108); ABG TCO2 24 mmol/L (19-24); Allen Test Performed? Yes
[2023-12-19] MEDS ORDERED: Potassium Replacement Protocol 1 EACH MISC MISCELLANE PRN (06:06)
[2023-12-19] MEDS ORDERED: Magnesium Replacement Protocol 1 EACH MISC MISCELLANE PRN (06:06)
[2023-12-19 06:12] LABS: Glucose,Whole Blood 166 mg/dL (70-110)
[2023-12-19] MEDS: POTASSIUM BICARBONATE/CIT AC 20 MEQ TABLET.EFF NG-TUBE SCH (06:17)
[2023-12-19] MEDS: MAGNESIUM SULFATE-D5W PMX 1 GM in DEXTROSE/WATER 1 100ML.BAG IVPB ONE (06:17)
[2023-12-19 07:06] LABS: Glucose,Whole Blood 183 mg/dL (70-110)
--- NOTE | 2023-12-19 07:50 | P.PN ---
Subjective Progress Note Date: 12/19/23 Principal diagnosis: Shortness of breath The patient is a 73-year-old female patient with extensive cardiac history consistent of coronary artery disease with a prior revascularization with CABG and stenting with the last heart catheterization was performed in September 2023 and no need for revascularization advised at that point as well as cardiomyopathy with an ejection fraction between 30-35% as well as valvular heart disease with moderate mitral regurgitation. The patient presented to the hospital with shortness of breath associated with extensive cough and congestion. Initially she was admitted to the third floor but because she continues to have extensive cough associated with respiratory distress she was transferred to the intensive care unit and subsequently she was intubated and placed on mechanical ventilation. 12/19/2023 The patient was seen this morning. She is hemodynamically stable beside soft blood pressure. Currently she is not on vasopressors and she was weaned from vasopressors earlier today. Beside that she has been maintaining normal sinus mechanism. The possible diagnosis is pneumonia/sepsis and blood culture was sent. She doesn't seems in overt congestive heart failure overall. We'll follow-up with a chest x-ray from this morning. She was given one dose of Lasix last night. The last echo from September showed an EF between 30-35%. The examination is remarkable for regular rhythm with distant heart sounds and diminished breathing sounds bilaterally and no edema was noted. Assessment Acute respiratory distress Acute respiratory failure Coronary artery disease Cardiomyopathy Multiple comorbid conditions Valvular heart disease Plan Continue the current medical regimen Continue supporting the pressure hemodynamically Follow-up with the blood culture No need for any further cardiac testing at this point Possible right heart catheterization to assess the filling pressure Follow-up with the patient Objective - Vital Signs Vital signs: Vital Signs Temp 97.9 F 12/19/23 04:00 Pulse 98 12/19/23 07:00 Resp 30 H 12/19/23 07:00 BP 82/71 12/19/23 03:30 Pulse Ox 98 12/19/23 07:00 FiO2 50 12/19/23 06:02 Intake & Output 12/18/23 12/19/23 12/19/23 18:59 06:59 18:59 Intake Total 2811.049 2589.818 100 Output Total 655 430 35 Balance 2156.049 2159.818 65 Weight 88 kg Intake: IV 2600 1130 100 Invasive Line 4 30 Invasive Line 5 20 30 Sodium Chloride 0.9% 1, 550 1100 100 000 ml @ 100 mls/hr IV . Q10H [facility] Rx#:[id number] Sodium Chloride 0.9% 1, 1000 000 ml @ 999 mls/hr IV . Q1H1M [facility] Rx#:[id number] Sodium Chloride 0.9% 1, 1000 000 ml @ 999 mls/hr IV . Q1H1M [facility] Rx#:[id number] Intake, IV Titration 711.486 7603.818 0 Amount Dexmedetomidine/0.9% NaCl 2.789 (Pmx) 400 mcg In Empty Bag 1 bag @ 0.2 MCG/KG/HR 4.082 mls/hr IV .Q24H [facility] Rx#:[id number] Diltiazem 125 mg In 19.75 Sodium Chloride 0.9% 100 ml @ 5 MG/HR 5 mls/hr IV .Q24H [facility] Rx#:[id number] Diltiazem 125 mg In 43.584 Sodium Chloride 0.9% 100 ml @ 5 MG/HR 5 mls/hr IV .Q24H [facility] Rx#:[id number] Insulin Regular 100 unit 22.175 28.771 0 In Sodium Chloride 0.9% 100 ml @ Titrate IV .Q0M [facility] Rx#:[id number] Magnesium Sulfate-D5w Pmx 100 1 gm In Dextrose/Water 1 100ml.bag @ 100 mls/hr IVPB [facility]CE [facility] Rx#: [id number] Norepinephrine 4 mg In 15.450 Sodium Chloride 0.9% 250 ml @ 0.03 MCG/KG/MIN 9. 332 mls/hr IV .Q24H [facility] Rx#:[id number] Piperacillin-Tazobactam 3 100 .375 gm In Sodium Chloride 0.9% 100 ml @ 25 mls/hr IVPB Q8HR [facility] Rx# :[id number] Vancomycin 1,750 mg In 500 Sodium Chloride 0.9% 500 ml 500 ml @ 167 mls/hr IVPB ONCE [facility] Rx#: [id number] Vancomycin 1,750 mg In 500 Sodium Chloride 0.9% 500 ml 500 ml @ 167 mls/hr IVPB Q12H [facility] Rx#: [id number] propofoL 1,000 mg In 56.335 172.013 Empty Bag 1 bag @ 15 MCG/ KG/MIN 7.348 mls/hr IV . [id number] [facility] Rx#:[id number] Oral 110 Output: Gastric Drainage 550 Urine 105 430 35 Other: Voiding Method Indwelling Catheter Indwelling Catheter # Bowel Movements 0 ABP, PAP, CO, CI - Last Documented Arterial Blood Pressure 88/59 - Labs CBC & Chem 7: 12/19/23 04:30 12/19/23 04:30 Labs: Abnormal Lab Results - Last 24 Hours (Table) 12/18/23 12/18/23 12/18/23 Range/Units 08:08 08:08 08:08 Hgb 8.8 L (11.4-16.0) gm/dL Hct 30.8 L (34.0-46.0) % MCV 70.9 L (80.0-100.0) fL MCH 20.3 L (25.0-35.0) pg MCHC 28.7 L (31.0-37.0) g/dL RDW 19.5 H (11.5-15.5) % Neutrophils # (1.3-7.7) k/uL Lymphocytes # 0.4 L (1.0-4.8) k/uL ABG pH (7.35-7.45) ABG pCO2 (35-45) mmHg ABG pO2 (83-108) mmHg ABG HCO3 (21-25) mmol/L ABG O2 Saturation (94-97) % Chloride 108 H (98-107) mmol/L Carbon Dioxide 20 L (22-30) mmol/L BUN (7-17) mg/dL Creatinine 0.51 L (0.52-1.04) mg/dL Glucose 259 H (74-99) mg/dL POC Glucose (mg/dL) (70-110) mg/dL Hemoglobin A1c 6.3 H (<=6.0) % Calcium (8.4-10.2) mg/dL AST (14-36) U/L ALT (4-34) U/L Total Protein 6.1 L (6.3-8.2) g/dL Albumin 3.4 L (3.5-5.0) g/dL Fluid Appearance (Clear) 12/18/23 12/18/23 12/18/23 Range/Units 11:25 11:46 13:18 Hgb (11.4-16.0) gm/dL Hct (34.0-46.0) % MCV (80.0-100.0) fL MCH (25.0-35.0) pg MCHC (31.0-37.0) g/dL RDW (11.5-15.5) % Neutrophils # (1.3-7.7) k/uL Lymphocytes # (1.0-4.8) k/uL ABG pH 7.07 L* (7.35-7.45) ABG pCO2 59 H (35-45) mmHg ABG pO2 176 H (83-108) mmHg ABG HCO3 17 L (21-25) mmol/L ABG O2 Saturation 97.8 H (94-97) % Chloride (98-107) mmol/L Carbon Dioxide (22-30) mmol/L BUN (7-17) mg/dL Creatinine (0.52-1.04) mg/dL Glucose (74-99) mg/dL POC Glucose (mg/dL) 342 H 425 H (70-110) mg/dL Hemoglobin A1c (<=6.0) % Calcium (8.4-10.2) mg/dL AST (14-36) U/L ALT (4-34) U/L Total Protein (6.3-8.2) g/dL Albumin (3.5-5.0) g/dL Fluid Appearance (Clear) 12/18/23 12/18/23 12/18/23 Range/Units 15:00 15:05 15:20 Hgb (11.4-16.0) gm/dL Hct (34.0-46.0) % MCV (80.0-100.0) fL MCH (25.0-35.0) pg MCHC (31.0-37.0) g/dL RDW (11.5-15.5) % Neutrophils # (1.3-7.7) k/uL Lymphocytes # (1.0-4.8) k/uL ABG pH 7.13 L* (7.35-7.45) ABG pCO2 51 H (35-45) mmHg ABG pO2 (83-108) mmHg ABG HCO3 17 L (21-25) mmol/L ABG O2 Saturation 93.9 L (94-97) % Chloride (98-107) mmol/L Carbon Dioxide (22-30) mmol/L BUN (7-17) mg/dL Creatinine (0.52-1.04) mg/dL Glucose (74-99) mg/dL POC Glucose (mg/dL) 514 H 453 H (70-110) mg/dL Hemoglobin A1c (<=6.0) % Calcium (8.4-10.2) mg/dL AST (14-36) U/L ALT (4-34) U/L Total Protein (6.3-8.2) g/dL Albumin (3.5-5.0) g/dL Fluid Appearance (Clear) 12/18/23 12/18/23 12/18/23 Range/Units 16:21 16:40 17:19 Hgb (11.4-16.0) gm/dL Hct (34.0-46.0) % MCV (80.0-100.0) fL MCH (25.0-35.0) pg MCHC (31.0-37.0) g/dL RDW (11.5-15.5) % Neutrophils # (1.3-7.7) k/uL Lymphocytes # (1.0-4.8) k/uL ABG pH (7.35-7.45) ABG pCO2 (35-45) mmHg ABG pO2 (83-108) mmHg ABG HCO3 (21-25) mmol/L ABG O2 Saturation (94-97) % Chloride (98-107) mmol/L Carbon Dioxide (22-30) mmol/L BUN (7-17) mg/dL Creatinine (0.52-1.04) mg/dL Glucose (74-99) mg/dL POC Glucose (mg/dL) 389 H 345 H (70-110) mg/dL Hemoglobin A1c (<=6.0) % Calcium (8.4-10.2) mg/dL AST (14-36) U/L ALT (4-34) U/L Total Protein (6.3-8.2) g/dL Albumin (3.5-5.0) g/dL Fluid Appearance Bloody A (Clear) 12/18/23 12/18/23 12/18/23 Range/Units 18:07 19:05 19:55 Hgb (11.4-16.0) gm/dL Hct (34.0-46.0) % MCV (80.0-100.0) fL MCH (25.0-35.0) pg MCHC (31.0-37.0) g/dL RDW (11.5-15.5) % Neutrophils # (1.3-7.7) k/uL Lymphocytes # (1.0-4.8) k/uL ABG pH 7.22 L (7.35-7.45) ABG pCO2 (35-45) mmHg ABG pO2 162 H (83-108) mmHg ABG HCO3 17 L (21-25) mmol/L ABG O2 Saturation 97.2 H (94-97) % Chloride (98-107) mmol/L Carbon Dioxide (22-30) mmol/L BUN (7-17) mg/dL Creatinine (0.52-1.04) mg/dL Glucose (74-99) mg/dL POC Glucose (mg/dL) 287 H 238 H (70-110) mg/dL Hemoglobin A1c (<=6.0) % Calcium (8.4-10.2) mg/dL AST (14-36) U/L ALT (4-34) U/L Total Protein (6.3-8.2) g/dL Albumin (3.5-5.0) g/dL Fluid Appearance (Clear) 12/18/23 12/18/23 12/18/23 Range/Units 20:05 21:03 22:07 Hgb (11.4-16.0) gm/dL Hct (34.0-46.0) % MCV (80.0-100.0) fL MCH (25.0-35.0) pg MCHC (31.0-37.0) g/dL RDW (11.5-15.5) % Neutrophils # (1.3-7.7) k/uL Lymphocytes # (1.0-4.8) k/uL ABG pH (7.35-7.45) ABG pCO2 (35-45) mmHg ABG pO2 (83-108) mmHg ABG HCO3 (21-25) mmol/L ABG O2 Saturation (94-97) % Chloride (98-107) mmol/L Carbon Dioxide (22-30) mmol/L BUN (7-17) mg/dL Creatinine (0.52-1.04) mg/dL Glucose (74-99) mg/dL POC Glucose (mg/dL) 179 H 137 H 127 H (70-110) mg/dL Hemoglobin A1c (<=6.0) % Calcium (8.4-10.2) mg/dL AST (14-36) U/L ALT (4-34) U/L Total Protein (6.3-8.2) g/dL Albumin (3.5-5.0) g/dL Fluid Appearance (Clear) 12/18/23 12/19/23 12/19/23 Range/Units 23:05 00:08 01:15 Hgb (11.4-16.0) gm/dL Hct (34.0-46.0) % MCV (80.0-100.0) fL MCH (25.0-35.0) pg MCHC (31.0-37.0) g/dL RDW (11.5-15.5) % Neutrophils # (1.3-7.7) k/uL Lymphocytes # (1.0-4.8) k/uL ABG pH (7.35-7.45) ABG pCO2 (35-45) mmHg ABG pO2 (83-108) mmHg ABG HCO3 (21-25) mmol/L ABG O2 Saturation (94-97) % Chloride (98-107) mmol/L Carbon Dioxide (22-30) mmol/L BUN (7-17) mg/dL Creatinine (0.52-1.04) mg/dL Glucose (74-99) mg/dL POC Glucose (mg/dL) 155 H 161 H 166 H (70-110) mg/dL Hemoglobin A1c (<=6.0) % Calcium (8.4-10.2) mg/dL AST (14-36) U/L ALT (4-34) U/L Total Protein (6.3-8.2) g/dL Albumin (3.5-5.0) g/dL Fluid Appearance (Clear) 12/19/23 12/19/23 12/19/23 Range/Units 02:07 03:17 04:08 Hgb (11.4-16.0) gm/dL Hct (34.0-46.0) % MCV (80.0-100.0) fL MCH (25.0-35.0) pg MCHC (31.0-37.0) g/dL RDW (11.5-15.5) % Neutrophils # (1.3-7.7) k/uL Lymphocytes # (1.0-4.8) k/uL ABG pH (7.35-7.45) ABG pCO2 (35-45) mmHg ABG pO2 (83-108) mmHg ABG HCO3 (21-25) mmol/L ABG O2 Saturation (94-97) % Chloride (98-107) mmol/L Carbon Dioxide (22-30) mmol/L BUN (7-17) mg/dL Creatinine (0.52-1.04) mg/dL Glucose (74-99) mg/dL POC Glucose (mg/dL) 166 H 162 H 165 H (70-110) mg/dL Hemoglobin A1c (<=6.0) % Calcium (8.4-10.2) mg/dL AST (14-36) U/L ALT (4-34) U/L Total Protein (6.3-8.2) g/dL Albumin (3.5-5.0) g/dL Fluid Appearance (Clear) 12/19/23 12/19/23 12/19/23 Range/Units 04:30 04:30 05:07 Hgb 9.1 L (11.4-16.0) gm/dL Hct 31.7 L (34.0-46.0) % MCV 71.4 L (80.0-100.0) fL MCH 20.5 L (25.0-35.0) pg MCHC 28.7 L (31.0-37.0) g/dL RDW 20.2 H (11.5-15.5) % Neutrophils # 9.2 H (1.3-7.7) k/uL Lymphocytes # 0.4 L (1.0-4.8) k/uL ABG pH (7.35-7.45) ABG pCO2 (35-45) mmHg ABG pO2 (83-108) mmHg ABG HCO3 (21-25) mmol/L ABG O2 Saturation (94-97) % Chloride 117 H (98-107) mmol/L Carbon Dioxide (22-30) mmol/L BUN 25 H (7-17) mg/dL Creatinine (0.52-1.04) mg/dL Glucose 156 H (74-99) mg/dL POC Glucose (mg/dL) 173 H (70-110) mg/dL Hemoglobin A1c (<=6.0) % Calcium 7.8 L (8.4-10.2) mg/dL AST 525 H (14-36) U/L ALT 448 H (4-34) U/L Total Protein 5.1 L (6.3-8.2) g/dL Albumin 2.6 L (3.5-5.0) g/dL Fluid Appearance (Clear) 12/19/23 12/19/23 12/19/23 Range/Units 05:55 06:10 07:05 Hgb (11.4-16.0) gm/dL Hct (34.0-46.0) % MCV (80.0-100.0) fL MCH (25.0-35.0) pg MCHC (31.0-37.0) g/dL RDW (11.5-15.5) % Neutrophils # (1.3-7.7) k/uL Lymphocytes # (1.0-4.8) k/uL ABG pH (7.35-7.45) ABG pCO2 (35-45) mmHg ABG pO2 189 H (83-108) mmHg ABG HCO3 (21-25) mmol/L ABG O2 Saturation 99.2 H (94-97) % Chloride (98-107) mmol/L Carbon Dioxide (22-30) mmol/L BUN (7-17) mg/dL Creatinine (0.52-1.04) mg/dL Glucose (74-99) mg/dL POC Glucose (mg/dL) 166 H 183 H (70-110) mg/dL Hemoglobin A1c (<=6.0) % Calcium (8.4-10.2) mg/dL AST (14-36) U/L ALT (4-34) U/L Total Protein (6.3-8.2) g/dL Albumin (3.5-5.0) g/dL Fluid Appearance (Clear) Microbiology - Last 24 Hours (Table) 12/17/23 08:34 Blood Culture - Preliminary Blood
--- NOTE | 2023-12-19 08:03 | XR ---
EXAMINATION TYPE: XR chest 1V portable DATE OF EXAM: 12/19/2023 COMPARISON: 12/18/2023 INDICATION: Tube placement TECHNIQUE: Single frontal view of the chest is obtained. FINDINGS: The heart size is enlarged. The pulmonary vasculature is mildly prominent. There is a right lower lobe consolidation with air bronchograms. Correlate for pneumonia. Small pleur al effusions are not excluded. Endotracheal tube tip is 1.9 cm above nahun. Nasogastric tube appears to transverse thorax with the tip of the [id number]. IMPRESSION: 1. Improving right lower lobe consolidation. Continued follow-up is recommended. 2. Cardiomegaly. 3. Catheters discussed above
--- NOTE | 2023-12-19 08:31 | P.PN ---
Subjective Progress Note Date: 12/19/23 On 12/18/2023, the patient is being seen in follow-up on the medical floor. The patient was found to be in significant degree of respiratory distress and the patient was using some accessory muscles of breathing. She was having frequent coughing episode and she was unable to catch her breath in between those coughing episodes. She was still responsive and communicating. At that point, I made recommendations to transfer this patient to the intensive care unit for further monitoring. Within 20 minutes, the patient became more diaphoretic, lethargic, quite obtunded and at that point, the patient had to be intubated and placed on the mechanical ventilator. I personally intubated the patient in the intensive care unit. I have her on a tidal volume of 350, rate of 24 with an FiO2 of 100% with a PEEP of 5. Postintubation chest x-ray showed extensive consolidation of the right lung and there is new airspace disease throughout the right lung along with some areas of consolidations and interstitial changes. Post NG tube insertion, the patient's stomach was decompressed and there was total amount of 500 cc of gastric material aspirated from the stomach. No reported aspiration. Obviously, the patient has multifocal pneumonia at this point in time more extensive in the right lung especially in the right middle and right lower lobe area. The white cell count at 7.1 with a hemoglobin 8.8, BUN is at 15 with a creatinine of 0.5 and sodium levels at 137. Potassium level is at 4.2. The patient was started on propofol for sedation. She was given also a dose of Nimbex during the intubation process 10 mg IV x 1. Blood gas are still pending. She may need a bronchoscopy and right lower lobe bronchoalveolar lavage. She remains on bronchodilators. She remains on steroids. Antibiotics will be modified and Zosyn will be added in combination with Zithromax. She has not required any pressors yet. She will be given a bolus of 1 L and following that she will be started on a maintenance of 100 cc an hour. Condition is obviously is critical at this point in time. Echocardiogram that was obtained on 10/19/2023 showed systolic heart failure with an underlying left ventricular ejection fraction of 30 to 35%. The patient also had mild RV dilatation, mild aortic regurgitation, mild to moderate mitral Regurgitation with a right ventricular systolic pressure of 32. He also has moderate degree of pulm hypertension. On today's evaluation of 12/19/2023, the patient is intubated on the mechanical ventilator. Overnight, the patient was kept intubated and the patient is sedated adequately with propofol which is running at 35 mcg/kg/min. As mentioned, the patient developed an extensive right lung pneumonia with respiratory failure requiring intubation mechanical ventilation. She currently has a #7.5 orotracheal tube. She is on assist-control mode of mechanical ventilation at a rate of 30, tidal volume of 350, FiO2 of 40% and a PEEP of 5. The peak airway pressure is around 25. The chest x-ray from today showing bilateral pleural effusion and significant consolidation of the right lung base and there is also some limited infiltration of the left lung base. I performed a bronchoscopy on this patient yesterday endobronchial lavage of the right lower lobe was obtained. The results are still pending for now. Meanwhile, the patient was covered with broad-spectrum antibiotic coverage and she is currently on a combination of Zosyn, Zithromax and vancomycin. The peak airway pressure is ranging between 21 and 23. The blood gas shows improvement in the pH is currently up to 7.36 with a pCO2 of 40 and pO2 of 189. Note that the patient was also given 2 doses of bicarb yesterday as the patient was quite acidotic. Rest of the blood work from today shows a WBC count of 9.9, hemoglobin of 9.1 and a platelet count of 288. Sodium is at 143,. Potassium level is at 3.8, BUN is at 25 with a creatinine of 0.9. LFTs are elevated with an AST of 525 and ALT of 448 and a bilirubin of 0.8. Her urine drug screen is positive for cannabis and the patient admits to smoke marijuana on a daily basis approximately 2 joints a day. She is on DuoNeb nebulized treatments [id number]. She is also on a combination of Perforomist and Pulmicort updrafts. She remains on IV Solu-Medrol. She is also on Lovenox 40 mg subcu for DVT prophylaxis. Feeding has not been started yet. Echocardiogram that was done on 10/19/2023 showed impaired LV function with an ejection fraction of 30 to 35%. We have not encountered any hypotension on this patient. She was quite tachycardic yesterday and she was placed briefly on norepinephrine yesterday for some limited hypotension and this ultimately improved and her current mean arterial pressure is around 74. She is on insulin drip running at 3 units an hour. Blood sugars under better control for now. Objective - Vital Signs Vital signs: Vital Signs Temp 97.9 F 12/19/23 04:00 Pulse 107 H 12/19/23 08:23 Resp 32 H 12/19/23 08:23 BP 82/71 12/19/23 03:30 Pulse Ox 98 12/19/23 07:00 FiO2 50 12/19/23 06:02 Intake & Output 12/18/23 12/19/23 12/19/23 18:59 06:59 18:59 Intake Total 2811.049 2589.818 100 Output Total 655 430 35 Balance 2156.049 2159.818 65 Weight 88 kg Intake: IV 2600 1130 100 Invasive Line 4 30 Invasive Line 5 20 30 Sodium Chloride 0.9% 1, 550 1100 100 000 ml @ 100 mls/hr IV . Q10H [facility] Rx#:[id number] Sodium Chloride 0.9% 1, 1000 000 ml @ 999 mls/hr IV . Q1H1M [facility] Rx#:[id number] Sodium Chloride 0.9% 1, 1000 000 ml @ 999 mls/hr IV . Q1H1M [facility] Rx#:[id number] Intake, IV Titration 813.122 3404.818 0 Amount Dexmedetomidine/0.9% NaCl 2.789 (Pmx) 400 mcg In Empty Bag 1 bag @ 0.2 MCG/KG/HR 4.082 mls/hr IV .Q24H [facility] Rx#:[id number] Diltiazem 125 mg In 19.75 Sodium Chloride 0.9% 100 ml @ 5 MG/HR 5 mls/hr IV .Q24H [facility] Rx#:[id number] Diltiazem 125 mg In 43.584 Sodium Chloride 0.9% 100 ml @ 5 MG/HR 5 mls/hr IV .Q24H [facility] Rx#:[id number] Insulin Regular 100 unit 22.175 28.771 0 In Sodium Chloride 0.9% 100 ml @ Titrate IV .Q0M [facility] Rx#:[id number] Magnesium Sulfate-D5w Pmx 100 1 gm In Dextrose/Water 1 100ml.bag @ 100 mls/hr IVPB ONCE ONE Rx#: [id number] Norepinephrine 4 mg In 15.450 Sodium Chloride 0.9% 250 ml @ 0.03 MCG/KG/MIN 9. 332 mls/hr IV .Q24H [facility] Rx#:[id number] Piperacillin-Tazobactam 3 100 .375 gm In Sodium Chloride 0.9% 100 ml @ 25 mls/hr IVPB Q8HR [facility] Rx# :[id number] Vancomycin 1,750 mg In 500 Sodium Chloride 0.9% 500 ml 500 ml @ 167 mls/hr IVPB ONCE ONE Rx#: [id number] Vancomycin 1,750 mg In 500 Sodium Chloride 0.9% 500 ml 500 ml @ 167 mls/hr IVPB Q12H [facility] Rx#: [id number] propofoL 1,000 mg In 56.335 172.013 Empty Bag 1 bag @ 15 MCG/ KG/MIN 7.348 mls/hr IV . Q14G32V [facility] Rx#:[id number] Oral 110 Output: Gastric Drainage 550 Urine 105 430 35 Other: Voiding Method Indwelling Catheter Indwelling Catheter # Bowel Movements 0 ABP, PAP, CO, CI - Last Documented Arterial Blood Pressure 88/59 - Exam Sedated on propofol and, comfortable, intubated on mechanical ventilator. Orogastric and orotracheal tube are both in place. Head exam was generally normal. There was no scleral icterus or corneal arcus. Mucous membranes were moist. Neck supple. Full range of motion. No adenopathy thyromegaly or neck vein distention. Cardiovascular examination reveals regular rhythm rate. S1-S2 normal. No S3 or S4. No discernible murmur noted. Heart sounds are distant. Patient is tachycardic although the rhythm strip is showing some sinus rhythm Lungs reveal coarse bilateral inspiratory and expiratory rhonchi. No crackles. Marked diminished breath sounds along with diffuse expiratory wheezes throughout the lung powers bilaterally. Abdomen soft bowel sounds are heard. No masses or tenderness. Extremities are intact. No cyanosis or clubbing. The patient does have a +1 edema lower extremities bilaterally Skin is without rash or lesion. Neurologic examination, the patient is currently sedated and the patient was withdrawing to painful stimulation moving all 4 extremities prior to intubation. Pupils are equal reactive to light. - Labs CBC & Chem 7: 12/19/23 04:30 12/19/23 04:30 Labs: Abnormal Lab Results - Last 24 Hours (Table) 12/18/23 12/18/23 12/18/23 Range/Units 08:08 08:08 08:08 Hgb 8.8 L (11.4-16.0) gm/dL Hct 30.8 L (34.0-46.0) % MCV 70.9 L (80.0-100.0) fL MCH 20.3 L (25.0-35.0) pg MCHC 28.7 L (31.0-37.0) g/dL RDW 19.5 H (11.5-15.5) % Neutrophils # (1.3-7.7) k/uL Lymphocytes # 0.4 L (1.0-4.8) k/uL ABG pH (7.35-7.45) ABG pCO2 (35-45) mmHg ABG pO2 (83-108) mmHg ABG HCO3 (21-25) mmol/L ABG O2 Saturation (94-97) % Chloride 108 H (98-107) mmol/L Carbon Dioxide 20 L (22-30) mmol/L BUN (7-17) mg/dL Creatinine 0.51 L (0.52-1.04) mg/dL Glucose 259 H (74-99) mg/dL POC Glucose (mg/dL) (70-110) mg/dL Hemoglobin A1c 6.3 H (<=6.0) % Calcium (8.4-10.2) mg/dL AST (14-36) U/L ALT (4-34) U/L Total Protein 6.1 L (6.3-8.2) g/dL Albumin 3.4 L (3.5-5.0) g/dL Fluid Appearance (Clear) 12/18/23 12/18/23 12/18/23 Range/Units 11:25 11:46 13:18 Hgb (11.4-16.0) gm/dL Hct (34.0-46.0) % MCV (80.0-100.0) fL MCH (25.0-35.0) pg MCHC (31.0-37.0) g/dL RDW (11.5-15.5) % Neutrophils # (1.3-7.7) k/uL Lymphocytes # (1.0-4.8) k/uL ABG pH 7.07 L* (7.35-7.45) ABG pCO2 59 H (35-45) mmHg ABG pO2 176 H (83-108) mmHg ABG HCO3 17 L (21-25) mmol/L ABG O2 Saturation 97.8 H (94-97) % Chloride (98-107) mmol/L Carbon Dioxide (22-30) mmol/L BUN (7-17) mg/dL Creatinine (0.52-1.04) mg/dL Glucose (74-99) mg/dL POC Glucose (mg/dL) 342 H 425 H (70-110) mg/dL Hemoglobin A1c (<=6.0) % Calcium (8.4-10.2) mg/dL AST (14-36) U/L ALT (4-34) U/L Total Protein (6.3-8.2) g/dL Albumin (3.5-5.0) g/dL Fluid Appearance (Clear) 12/18/23 12/18/23 12/18/23 Range/Units 15:00 15:05 15:20 Hgb (11.4-16.0) gm/dL Hct (34.0-46.0) % MCV (80.0-100.0) fL MCH (25.0-35.0) pg MCHC (31.0-37.0) g/dL RDW (11.5-15.5) % Neutrophils # (1.3-7.7) k/uL Lymphocytes # (1.0-4.8) k/uL ABG pH 7.13 L* (7.35-7.45) ABG pCO2 51 H (35-45) mmHg ABG pO2 (83-108) mmHg ABG HCO3 17 L (21-25) mmol/L ABG O2 Saturation 93.9 L (94-97) % Chloride (98-107) mmol/L Carbon Dioxide (22-30) mmol/L BUN (7-17) mg/dL Creatinine (0.52-1.04) mg/dL Glucose (74-99) mg/dL POC Glucose (mg/dL) 514 H 453 H (70-110) mg/dL Hemoglobin A1c (<=6.0) % Calcium (8.4-10.2) mg/dL AST (14-36) U/L ALT (4-34) U/L Total Protein (6.3-8.2) g/dL Albumin (3.5-5.0) g/dL Fluid Appearance (Clear) 12/18/23 12/18/23 12/18/23 Range/Units 16:21 16:40 17:19 Hgb (11.4-16.0) gm/dL Hct (34.0-46.0) % MCV (80.0-100.0) fL MCH (25.0-35.0) pg MCHC (31.0-37.0) g/dL RDW (11.5-15.5) % Neutrophils # (1.3-7.7) k/uL Lymphocytes # (1.0-4.8) k/uL ABG pH (7.35-7.45) ABG pCO2 (35-45) mmHg ABG pO2 (83-108) mmHg ABG HCO3 (21-25) mmol/L ABG O2 Saturation (94-97) % Chloride (98-107) mmol/L Carbon Dioxide (22-30) mmol/L BUN (7-17) mg/dL Creatinine (0.52-1.04) mg/dL Glucose (74-99) mg/dL POC Glucose (mg/dL) 389 H 345 H (70-110) mg/dL Hemoglobin A1c (<=6.0) % Calcium (8.4-10.2) mg/dL AST (14-36) U/L ALT (4-34) U/L Total Protein (6.3-8.2) g/dL Albumin (3.5-5.0) g/dL Fluid Appearance Bloody A (Clear) 12/18/23 12/18/23 12/18/23 Range/Units 18:07 19:05 19:55 Hgb (11.4-16.0) gm/dL Hct (34.0-46.0) % MCV (80.0-100.0) fL MCH (25.0-35.0) pg MCHC (31.0-37.0) g/dL RDW (11.5-15.5) % Neutrophils # (1.3-7.7) k/uL Lymphocytes # (1.0-4.8) k/uL ABG pH 7.22 L (7.35-7.45) ABG pCO2 (35-45) mmHg ABG pO2 162 H (83-108) mmHg ABG HCO3 17 L (21-25) mmol/L ABG O2 Saturation 97.2 H (94-97) % Chloride (98-107) mmol/L Carbon Dioxide (22-30) mmol/L BUN (7-17) mg/dL Creatinine (0.52-1.04) mg/dL Glucose (74-99) mg/dL POC Glucose (mg/dL) 287 H 238 H (70-110) mg/dL Hemoglobin A1c (<=6.0) % Calcium (8.4-10.2) mg/dL AST (14-36) U/L ALT (4-34) U/L Total Protein (6.3-8.2) g/dL Albumin (3.5-5.0) g/dL Fluid Appearance (Clear) 12/18/23 12/18/23 12/18/23 Range/Units 20:05 21:03 22:07 Hgb (11.4-16.0) gm/dL Hct (34.0-46.0) % MCV (80.0-100.0) fL MCH (25.0-35.0) pg MCHC (31.0-37.0) g/dL RDW (11.5-15.5) % Neutrophils # (1.3-7.7) k/uL Lymphocytes # (1.0-4.8) k/uL ABG pH (7.35-7.45) ABG pCO2 (35-45) mmHg ABG pO2 (83-108) mmHg ABG HCO3 (21-25) mmol/L ABG O2 Saturation (94-97) % Chloride (98-107) mmol/L Carbon Dioxide (22-30) mmol/L BUN (7-17) mg/dL Creatinine (0.52-1.04) mg/dL Glucose (74-99) mg/dL POC Glucose (mg/dL) 179 H 137 H 127 H (70-110) mg/dL Hemoglobin A1c (<=6.0) % Calcium (8.4-10.2) mg/dL AST (14-36) U/L ALT (4-34) U/L Total Protein (6.3-8.2) g/dL Albumin (3.5-5.0) g/dL Fluid Appearance (Clear) 12/18/23 12/19/23 12/19/23 Range/Units 23:05 00:08 01:15 Hgb (11.4-16.0) gm/dL Hct (34.0-46.0) % MCV (80.0-100.0) fL MCH (25.0-35.0) pg MCHC (31.0-37.0) g/dL RDW (11.5-15.5) % Neutrophils # (1.3-7.7) k/uL Lymphocytes # (1.0-4.8) k/uL ABG pH (7.35-7.45) ABG pCO2 (35-45) mmHg ABG pO2 (83-108) mmHg ABG HCO3 (21-25) mmol/L ABG O2 Saturation (94-97) % Chloride (98-107) mmol/L Carbon Dioxide (22-30) mmol/L BUN (7-17) mg/dL Creatinine (0.52-1.04) mg/dL Glucose (74-99) mg/dL POC Glucose (mg/dL) 155 H 161 H 166 H (70-110) mg/dL Hemoglobin A1c (<=6.0) % Calcium (8.4-10.2) mg/dL AST (14-36) U/L ALT (4-34) U/L Total Protein (6.3-8.2) g/dL Albumin (3.5-5.0) g/dL Fluid Appearance (Clear) 12/19/23 12/19/23 12/19/23 Range/Units 02:07 03:17 04:08 Hgb (11.4-16.0) gm/dL Hct (34.0-46.0) % MCV (80.0-100.0) fL MCH (25.0-35.0) pg MCHC (31.0-37.0) g/dL RDW (11.5-15.5) % Neutrophils # (1.3-7.7) k/uL Lymphocytes # (1.0-4.8) k/uL ABG pH (7.35-7.45) ABG pCO2 (35-45) mmHg ABG pO2 (83-108) mmHg ABG HCO3 (21-25) mmol/L ABG O2 Saturation (94-97) % Chloride (98-107) mmol/L Carbon Dioxide (22-30) mmol/L BUN (7-17) mg/dL Creatinine (0.52-1.04) mg/dL Glucose (74-99) mg/dL POC Glucose (mg/dL) 166 H 162 H 165 H (70-110) mg/dL Hemoglobin A1c (<=6.0) % Calcium (8.4-10.2) mg/dL AST (14-36) U/L ALT (4-34) U/L Total Protein (6.3-8.2) g/dL Albumin (3.5-5.0) g/dL Fluid Appearance (Clear) 12/19/23 12/19/23 12/19/23 Range/Units 04:30 04:30 05:07 Hgb 9.1 L (11.4-16.0) gm/dL Hct 31.7 L (34.0-46.0) % MCV 71.4 L (80.0-100.0) fL MCH 20.5 L (25.0-35.0) pg MCHC 28.7 L (31.0-37.0) g/dL RDW 20.2 H (11.5-15.5) % Neutrophils # 9.2 H (1.3-7.7) k/uL Lymphocytes # 0.4 L (1.0-4.8) k/uL ABG pH (7.35-7.45) ABG pCO2 (35-45) mmHg ABG pO2 (83-108) mmHg ABG HCO3 (21-25) mmol/L ABG O2 Saturation (94-97) % Chloride 117 H (98-107) mmol/L Carbon Dioxide (22-30) mmol/L BUN 25 H (7-17) mg/dL Creatinine (0.52-1.04) mg/dL Glucose 156 H (74-99) mg/dL POC Glucose (mg/dL) 173 H (70-110) mg/dL Hemoglobin A1c (<=6.0) % Calcium 7.8 L (8.4-10.2) mg/dL AST 525 H (14-36) U/L ALT 448 H (4-34) U/L Total Protein 5.1 L (6.3-8.2) g/dL Albumin 2.6 L (3.5-5.0) g/dL Fluid Appearance (Clear) 12/19/23 12/19/23 12/19/23 Range/Units 05:55 06:10 07:05 Hgb (11.4-16.0) gm/dL Hct (34.0-46.0) % MCV (80.0-100.0) fL MCH (25.0-35.0) pg MCHC (31.0-37.0) g/dL RDW (11.5-15.5) % Neutrophils # (1.3-7.7) k/uL Lymphocytes # (1.0-4.8) k/uL ABG pH (7.35-7.45) ABG pCO2 (35-45) mmHg ABG pO2 189 H (83-108) mmHg ABG HCO3 (21-25) mmol/L ABG O2 Saturation 99.2 H (94-97) % Chloride (98-107) mmol/L Carbon Dioxide (22-30) mmol/L BUN (7-17) mg/dL Creatinine (0.52-1.04) mg/dL Glucose (74-99) mg/dL POC Glucose (mg/dL) 166 H 183 H (70-110) mg/dL Hemoglobin A1c (<=6.0) % Calcium (8.4-10.2) mg/dL AST (14-36) U/L ALT (4-34) U/L Total Protein (6.3-8.2) g/dL Albumin (3.5-5.0) g/dL Fluid Appearance (Clear) Microbiology - Last 24 Hours (Table) 12/17/23 08:34 Blood Culture - Preliminary Blood Assessment and Plan Plan: Acute hypoxic respiratory failure, currently intubated and mechanically ventilated, the patient developed an extensive right lower lobe pneumonia, currently covered broad-spectrum antibiotics. Oxygenation improved. The acid- base balance also improved based on the follow-up blood gas Multifocal pneumonia with extensive consolidation and airspace disease involving the right middle/right lower lobe area. This is a new finding. The same time, there is increased central markings bilaterally and the possibility of underlying CHF cannot be completely excluded. The patient is post bronchoscopy endobronchial lavage of the right lower lobe. Cultures are still pending. The patient is currently on a combination of Zosyn Zithromax and vancomycin. She has required pressors for a brief period of time and currently she is off pressors. Marijuana smoker Severe respiratory distress and dyspnea secondary to above in addition to vigorous cough. Currently intubated on mechanical ventilator. History of coronary artery disease, status post bypass surgery. History of COPD, from previous tobacco use. Chronic systolic heart failure with an ejection fraction of 30 to 35% along with moderate MR and mild to moderate pulm hypertension with a PA pressure of 32 Sinus tachycardia versus MAT, heart rate is under better control and the patient is currently in his normal sinus rhythm with occasional PVCs History of diabetes mellitus, with a component of steroid-induced hyperglycemia, the patient is currently on insulin drip at 3 units an hour History of hyperlipidemia. History of hypertension. History of fibromyalgia. History of obstructive sleep apnea syndrome. History of polysubstance abuse. Plan Keep the patient intubated on mechanical ventilator. No ventilator changes for today Keep the patient on the same ventilator setting. Continue propofol for sedation Continue normal saline at a rate of 50 cc an hour as the patient has been aldo quately resuscitated and she was given several boluses of IV fluids yesterday and she does have an underlying cardiomyopathy with an ejection fraction of 30 to 35% and the chest x-ray showing some small bilateral pleural effusions. Continue Zithromax and add Zosyn and vancomycin Awaiting the results of the bronchial lavage Will continue bronchodilators Continue Perforomist and Pulmicort updrafts twice a day Continue IV Solu-Medrol Insulin drip for blood sugar control Repeat labs Will initiate enteral feeding for nutritional support and dietary consultation will be obtained Lovenox 40 mg subcu for DVT prophylaxis Will continue to follow. Condition is critical and will continue to follow and make further recommendations based on her progress. Evaluation was done more than 30 minutes. This is a critically ill patient. Time with Patient: Greater than 30
[2023-12-19 08:57] LABS: Glucose,Whole Blood 159 mg/dL (70-110)
--- NOTE | 2023-12-19 09:11 | P.PN ---
Subjective Progress Note Date: 12/19/23 Mari Moore, is a 73 year old female who presented to [facility] with a chief complaint of worsening shortness of breath. Patient reports she's had a nonproductive cough and generalized weakness and upper respiratory symptoms over the past few days. Patient has an extensive medical history including asthma, heart failure, COPD, coronary artery disease with previous history of CABG, diabetes mellitus, fibromyalgia, sleep apnea, ex- smoker and current marijuana user. Chest x-ray completed in ER showing no acute pulmonary infiltrate. Current vital signs showing temperature 97.6, heart rate 97, respiratory 18, blood pressure 98/49 with a pulse ox of 96% on room air patient testing negative for influenza RSV and COVID-19. UA negative. Troponins negative 2. BNP elevated at 2130. White blood cell within normal limits hemoglobin 8.9 at this time primary service is consulted. Will consult cardiology services in order 2-D echo. Iron studies ordered for anemia patient started on IV Solu-Medrol DuoNeb breathing treatments. At this time pulmonary and cardiology services consulted. Continue azithromycin for upper respiratory infection. Iron studies for low hemoglobin. On 12/18/2023 patient was seen and examined in the ICU her condition has worsened this morning, she was having severe continuous cough and shortness of breath, she had decrease in her O2 sat duration, she was transferred to intensive care unit, chest x-ray revealed significant worsening since x-ray done on 12/16/2023 with large right middle lobe and right lower lobe infiltrates, possibly related to aspiration. At this time patient is intubated, sedated started on mechanical ventilation, IV Zosyn was added to her medication regimen, pulmonary critical care following. On 12/19/2023 patient remains in the ICU on mechanical ventilation FiO2 40%. Patient remains on IV sedation. Levophed has been DC'd. Patient remains on IV steroids and IV antibiotics. Pulmonary and cardiology services following. ABGs this a.m. pH 7.36, pCO2 40, pO2 189, HCO3 23 and total CO2 24. Objective - Vital Signs Vital signs: Vital Signs Temp 97.9 F 12/19/23 04:00 Pulse 105 H 12/19/23 08:45 Resp 32 H 12/19/23 08:23 BP 82/71 12/19/23 03:30 Pulse Ox 98 12/19/23 07:00 FiO2 40 12/19/23 08:27 Intake & Output 12/18/23 12/19/23 12/19/23 18:59 06:59 18:59 Intake Total 2811.049 2589.818 106.187 Output Total 655 430 35 Balance 2156.049 2159.818 71.187 Weight 88 kg Intake: IV 2600 1130 100 Invasive Line 4 30 Invasive Line 5 20 30 Sodium Chloride 0.9% 1, 550 1100 100 000 ml @ 100 mls/hr IV . Q10H [facility] Rx#:[id number] Sodium Chloride 0.9% 1, 1000 000 ml @ 999 mls/hr IV . Q1H1M [facility] Rx#:[id number] Sodium Chloride 0.9% 1, 1000 000 ml @ 999 mls/hr IV . Q1H1M [facility] Rx#:[id number] Intake, IV Titration 846.628 3345.818 6.187 Amount Dexmedetomidine/0.9% NaCl 2.789 (Pmx) 400 mcg In Empty Bag 1 bag @ 0.2 MCG/KG/HR 4.082 mls/hr IV .Q24H [facility] Rx#:[id number] Diltiazem 125 mg In 19.75 Sodium Chloride 0.9% 100 ml @ 5 MG/HR 5 mls/hr IV .Q24H [facility] Rx#:[id number] Diltiazem 125 mg In 43.584 Sodium Chloride 0.9% 100 ml @ 5 MG/HR 5 mls/hr IV .Q24H [facility] Rx#:[id number] Insulin Regular 100 unit 22.175 28.771 6.187 In Sodium Chloride 0.9% 100 ml @ Titrate IV .Q0M [facility] Rx#:[id number] Magnesium Sulfate-D5w Pmx 100 1 gm In Dextrose/Water 1 100ml.bag @ 100 mls/hr IVPB ONCE [facility] Rx#: [id number] Norepinephrine 4 mg In 15.450 Sodium Chloride 0.9% 250 ml @ 0.03 MCG/KG/MIN 9. 332 mls/hr IV .Q24H [facility] Rx#:[id number] Piperacillin-Tazobactam 3 100 .375 gm In Sodium Chloride 0.9% 100 ml @ 25 mls/hr IVPB Q8HR [facility] Rx# :[id number] Vancomycin 1,750 mg In 500 Sodium Chloride 0.9% 500 ml 500 ml @ 167 mls/hr IVPB ONCE ONE Rx#: [id number] Vancomycin 1,750 mg In 500 Sodium Chloride 0.9% 500 ml 500 ml @ 167 mls/hr IVPB Q12H [facility] Rx#: [id number] propofoL 1,000 mg In 56.335 172.013 Empty Bag 1 bag @ 15 MCG/ KG/MIN 7.348 mls/hr IV . [id number] [facility] Rx#:[id number] Oral 110 Output: Gastric Drainage 550 Urine 105 430 35 Other: Voiding Method Indwelling Catheter Indwelling Catheter # Bowel Movements 0 ABP, PAP, CO, CI - Last Documented Arterial Blood Pressure 88/59 - Exam In general patient is intubated sedated maintained on mechanical ventilation Head normocephalic and atraumatic Neck supple no JVD no goiter Lungs exam reveals coarse crackles bilaterally no wheezing Heart regular rate and rhythm S1-S2, no rub or gallop Abdomen is soft nontender nondistended positive bowel sounds no hepatosplenomegaly Extremities no edema Neuro no gross focal deficit - Labs CBC & Chem 7: 12/19/23 04:30 12/19/23 04:30 Labs: Abnormal Lab Results - Last 24 Hours (Table) 12/18/23 12/18/23 12/18/23 Range/Units 08:08 08:08 08:08 Hgb 8.8 L (11.4-16.0) gm/dL Hct 30.8 L (34.0-46.0) % MCV 70.9 L (80.0-100.0) fL MCH 20.3 L (25.0-35.0) pg MCHC 28.7 L (31.0-37.0) g/dL RDW 19.5 H (11.5-15.5) % Neutrophils # (1.3-7.7) k/uL Lymphocytes # 0.4 L (1.0-4.8) k/uL ABG pH (7.35-7.45) ABG pCO2 (35-45) mmHg ABG pO2 (83-108) mmHg ABG HCO3 (21-25) mmol/L ABG O2 Saturation (94-97) % Chloride 108 H (98-107) mmol/L Carbon Dioxide 20 L (22-30) mmol/L BUN (7-17) mg/dL Creatinine 0.51 L (0.52-1.04) mg/dL Glucose 259 H (74-99) mg/dL POC Glucose (mg/dL) (70-110) mg/dL Hemoglobin A1c 6.3 H (<=6.0) % Calcium (8.4-10.2) mg/dL AST (14-36) U/L ALT (4-34) U/L Total Protein 6.1 L (6.3-8.2) g/dL Albumin 3.4 L (3.5-5.0) g/dL Fluid Appearance (Clear) 12/18/23 12/18/23 12/18/23 Range/Units 11:25 11:46 13:18 Hgb (11.4-16.0) gm/dL Hct (34.0-46.0) % MCV (80.0-100.0) fL MCH (25.0-35.0) pg MCHC (31.0-37.0) g/dL RDW (11.5-15.5) % Neutrophils # (1.3-7.7) k/uL Lymphocytes # (1.0-4.8) k/uL ABG pH 7.07 L* (7.35-7.45) ABG pCO2 59 H (35-45) mmHg ABG pO2 176 H (83-108) mmHg ABG HCO3 17 L (21-25) mmol/L ABG O2 Saturation 97.8 H (94-97) % Chloride (98-107) mmol/L Carbon Dioxide (22-30) mmol/L BUN (7-17) mg/dL Creatinine (0.52-1.04) mg/dL Glucose (74-99) mg/dL POC Glucose (mg/dL) 342 H 425 H (70-110) mg/dL Hemoglobin A1c (<=6.0) % Calcium (8.4-10.2) mg/dL AST (14-36) U/L ALT (4-34) U/L Total Protein (6.3-8.2) g/dL Albumin (3.5-5.0) g/dL Fluid Appearance (Clear) 12/18/23 12/18/23 12/18/23 Range/Units 15:00 15:05 15:20 Hgb (11.4-16.0) gm/dL Hct (34.0-46.0) % MCV (80.0-100.0) fL MCH (25.0-35.0) pg MCHC (31.0-37.0) g/dL RDW (11.5-15.5) % Neutrophils # (1.3-7.7) k/uL Lymphocytes # (1.0-4.8) k/uL ABG pH 7.13 L* (7.35-7.45) ABG pCO2 51 H (35-45) mmHg ABG pO2 (83-108) mmHg ABG HCO3 17 L (21-25) mmol/L ABG O2 Saturation 93.9 L (94-97) % Chloride (98-107) mmol/L Carbon Dioxide (22-30) mmol/L BUN (7-17) mg/dL Creatinine (0.52-1.04) mg/dL Glucose (74-99) mg/dL POC Glucose (mg/dL) 514 H 453 H (70-110) mg/dL Hemoglobin A1c (<=6.0) % Calcium (8.4-10.2) mg/dL AST (14-36) U/L ALT (4-34) U/L Total Protein (6.3-8.2) g/dL Albumin (3.5-5.0) g/dL Fluid Appearance (Clear) 12/18/23 12/18/23 12/18/23 Range/Units 16:21 16:40 17:19 Hgb (11.4-16.0) gm/dL Hct (34.0-46.0) % MCV (80.0-100.0) fL MCH (25.0-35.0) pg MCHC (31.0-37.0) g/dL RDW (11.5-15.5) % Neutrophils # (1.3-7.7) k/uL Lymphocytes # (1.0-4.8) k/uL ABG pH (7.35-7.45) ABG pCO2 (35-45) mmHg ABG pO2 (83-108) mmHg ABG HCO3 (21-25) mmol/L ABG O2 Saturation (94-97) % Chloride (98-107) mmol/L Carbon Dioxide (22-30) mmol/L BUN (7-17) mg/dL Creatinine (0.52-1.04) mg/dL Glucose (74-99) mg/dL POC Glucose (mg/dL) 389 H 345 H (70-110) mg/dL Hemoglobin A1c (<=6.0) % Calcium (8.4-10.2) mg/dL AST (14-36) U/L ALT (4-34) U/L Total Protein (6.3-8.2) g/dL Albumin (3.5-5.0) g/dL Fluid Appearance Bloody A (Clear) 12/18/23 12/18/23 12/18/23 Range/Units 18:07 19:05 19:55 Hgb (11.4-16.0) gm/dL Hct (34.0-46.0) % MCV (80.0-100.0) fL MCH (25.0-35.0) pg MCHC (31.0-37.0) g/dL RDW (11.5-15.5) % Neutrophils # (1.3-7.7) k/uL Lymphocytes # (1.0-4.8) k/uL ABG pH 7.22 L (7.35-7.45) ABG pCO2 (35-45) mmHg ABG pO2 162 H (83-108) mmHg ABG HCO3 17 L (21-25) mmol/L ABG O2 Saturation 97.2 H (94-97) % Chloride (98-107) mmol/L Carbon Dioxide (22-30) mmol/L BUN (7-17) mg/dL Creatinine (0.52-1.04) mg/dL Glucose (74-99) mg/dL POC Glucose (mg/dL) 287 H 238 H (70-110) mg/dL Hemoglobin A1c (<=6.0) % Calcium (8.4-10.2) mg/dL AST (14-36) U/L ALT (4-34) U/L Total Protein (6.3-8.2) g/dL Albumin (3.5-5.0) g/dL Fluid Appearance (Clear) 12/18/23 12/18/23 12/18/23 Range/Units 20:05 21:03 22:07 Hgb (11.4-16.0) gm/dL Hct (34.0-46.0) % MCV (80.0-100.0) fL MCH (25.0-35.0) pg MCHC (31.0-37.0) g/dL RDW (11.5-15.5) % Neutrophils # (1.3-7.7) k/uL Lymphocytes # (1.0-4.8) k/uL ABG pH (7.35-7.45) ABG pCO2 (35-45) mmHg ABG pO2 (83-108) mmHg ABG HCO3 (21-25) mmol/L ABG O2 Saturation (94-97) % Chloride (98-107) mmol/L Carbon Dioxide (22-30) mmol/L BUN (7-17) mg/dL Creatinine (0.52-1.04) mg/dL Glucose (74-99) mg/dL POC Glucose (mg/dL) 179 H 137 H 127 H (70-110) mg/dL Hemoglobin A1c (<=6.0) % Calcium (8.4-10.2) mg/dL AST (14-36) U/L ALT (4-34) U/L Total Protein (6.3-8.2) g/dL Albumin (3.5-5.0) g/dL Fluid Appearance (Clear) 12/18/23 12/19/23 12/19/23 Range/Units 23:05 00:08 01:15 Hgb (11.4-16.0) gm/dL Hct (34.0-46.0) % MCV (80.0-100.0) fL MCH (25.0-35.0) pg MCHC (31.0-37.0) g/dL RDW (11.5-15.5) % Neutrophils # (1.3-7.7) k/uL Lymphocytes # (1.0-4.8) k/uL ABG pH (7.35-7.45) ABG pCO2 (35-45) mmHg ABG pO2 (83-108) mmHg ABG HCO3 (21-25) mmol/L ABG O2 Saturation (94-97) % Chloride (98-107) mmol/L Carbon Dioxide (22-30) mmol/L BUN (7-17) mg/dL Creatinine (0.52-1.04) mg/dL Glucose (74-99) mg/dL POC Glucose (mg/dL) 155 H 161 H 166 H (70-110) mg/dL Hemoglobin A1c (<=6.0) % Calcium (8.4-10.2) mg/dL AST (14-36) U/L ALT (4-34) U/L Total Protein (6.3-8.2) g/dL Albumin (3.5-5.0) g/dL Fluid Appearance (Clear) 12/19/23 12/19/23 12/19/23 Range/Units 02:07 03:17 04:08 Hgb (11.4-16.0) gm/dL Hct (34.0-46.0) % MCV (80.0-100.0) fL MCH (25.0-35.0) pg MCHC (31.0-37.0) g/dL RDW (11.5-15.5) % Neutrophils # (1.3-7.7) k/uL Lymphocytes # (1.0-4.8) k/uL ABG pH (7.35-7.45) ABG pCO2 (35-45) mmHg ABG pO2 (83-108) mmHg ABG HCO3 (21-25) mmol/L ABG O2 Saturation (94-97) % Chloride (98-107) mmol/L Carbon Dioxide (22-30) mmol/L BUN (7-17) mg/dL Creatinine (0.52-1.04) mg/dL Glucose (74-99) mg/dL POC Glucose (mg/dL) 166 H 162 H 165 H (70-110) mg/dL Hemoglobin A1c (<=6.0) % Calcium (8.4-10.2) mg/dL AST (14-36) U/L ALT (4-34) U/L Total Protein (6.3-8.2) g/dL Albumin (3.5-5.0) g/dL Fluid Appearance (Clear) 12/19/23 12/19/23 12/19/23 Range/Units 04:30 04:30 05:07 Hgb 9.1 L (11.4-16.0) gm/dL Hct 31.7 L (34.0-46.0) % MCV 71.4 L (80.0-100.0) fL MCH 20.5 L (25.0-35.0) pg MCHC 28.7 L (31.0-37.0) g/dL RDW 20.2 H (11.5-15.5) % Neutrophils # 9.2 H (1.3-7.7) k/uL Lymphocytes # 0.4 L (1.0-4.8) k/uL ABG pH (7.35-7.45) ABG pCO2 (35-45) mmHg ABG pO2 (83-108) mmHg ABG HCO3 (21-25) mmol/L ABG O2 Saturation (94-97) % Chloride 117 H (98-107) mmol/L Carbon Dioxide (22-30) mmol/L BUN 25 H (7-17) mg/dL Creatinine (0.52-1.04) mg/dL Glucose 156 H (74-99) mg/dL POC Glucose (mg/dL) 173 H (70-110) mg/dL Hemoglobin A1c (<=6.0) % Calcium 7.8 L (8.4-10.2) mg/dL AST 525 H (14-36) U/L ALT 448 H (4-34) U/L Total Protein 5.1 L (6.3-8.2) g/dL Albumin 2.6 L (3.5-5.0) g/dL Fluid Appearance (Clear) 12/19/23 12/19/23 12/19/23 Range/Units 05:55 06:10 07:05 Hgb (11.4-16.0) gm/dL Hct (34.0-46.0) % MCV (80.0-100.0) fL MCH (25.0-35.0) pg MCHC (31.0-37.0) g/dL RDW (11.5-15.5) % Neutrophils # (1.3-7.7) k/uL Lymphocytes # (1.0-4.8) k/uL ABG pH (7.35-7.45) ABG pCO2 (35-45) mmHg ABG pO2 189 H (83-108) mmHg ABG HCO3 (21-25) mmol/L ABG O2 Saturation 99.2 H (94-97) % Chloride (98-107) mmol/L Carbon Dioxide (22-30) mmol/L BUN (7-17) mg/dL Creatinine (0.52-1.04) mg/dL Glucose (74-99) mg/dL POC Glucose (mg/dL) 166 H 183 H (70-110) mg/dL Hemoglobin A1c (<=6.0) % Calcium (8.4-10.2) mg/dL AST (14-36) U/L ALT (4-34) U/L Total Protein (6.3-8.2) g/dL Albumin (3.5-5.0) g/dL Fluid Appearance (Clear) 12/19/23 Range/Units 08:54 Hgb (11.4-16.0) gm/dL Hct (34.0-46.0) % MCV (80.0-100.0) fL MCH (25.0-35.0) pg MCHC (31.0-37.0) g/dL RDW (11.5-15.5) % Neutrophils # (1.3-7.7) k/uL Lymphocytes # (1.0-4.8) k/uL ABG pH (7.35-7.45) ABG pCO2 (35-45) mmHg ABG pO2 (83-108) mmHg ABG HCO3 (21-25) mmol/L ABG O2 Saturation (94-97) % Chloride (98-107) mmol/L Carbon Dioxide (22-30) mmol/L BUN (7-17) mg/dL Creatinine (0.52-1.04) mg/dL Glucose (74-99) mg/dL POC Glucose (mg/dL) 159 H (70-110) mg/dL Hemoglobin A1c (<=6.0) % Calcium (8.4-10.2) mg/dL AST (14-36) U/L ALT (4-34) U/L Total Protein (6.3-8.2) g/dL Albumin (3.5-5.0) g/dL Fluid Appearance (Clear) Microbiology - Last 24 Hours (Table) 12/18/23 16:40 Gram Stain - Preliminary Bronchoalviolar Lavage - Right 12/18/23 14:48 Gram Stain - Preliminary Sputum 12/17/23 08:34 Blood Culture - Preliminary Blood Assessment and Plan Assessment: 1. Acute exacerbation of COPD. 2. Acute on chronic exacerbation of systolic CHF 3. Anemia. Iron studies ordered 4. Cardiomyopathy with an EF of 30-35% 5. History of non-STEMI September 2023 status post cardiac cath showing 80% stenosis of the stent patent 6. History of coronary artery disease disease status post CABG 7. History of diabetes mellitus type II 8. History of essential hypertension 9. History of hyperlipidemia. 10. Acute hypoxic respiratory failure requiring intubation and mechanical ventilation on 12/18/2023 11. Right middle lobe and right lower lobe infiltrates, suggestive of pneumonia, possible aspiration. DVT prophylaxis Lovenox. GI prophylaxis Protonix Cardiology and pulmonary service is consulted. Patient started on IV Solu-Medrol Repeat labs ordered iron studies ordered
[2023-12-19 10:18] LABS: Glucose,Whole Blood 139 mg/dL (70-110)
[2023-12-19 11:06] LABS: Glucose,Whole Blood 143 mg/dL (70-110)
[2023-12-19 11:18] LABS: Nucleated Cells, Body Fluid 1100 /UL
[2023-12-19 12:07] LABS: Glucose,Whole Blood 151 mg/dL (70-110)
[2023-12-19] MEDS: SODIUM CHLORIDE 0.9% 1,000 ML IV SCH (12:12)
[2023-12-19 13:16] LABS: Glucose,Whole Blood 171 mg/dL (70-110)
[2023-12-19] MEDS: fentaNYL (PF). 1,000 MCG in SODIUM CHLORIDE 0.9% 80 ML IV SCH (13:43)
[2023-12-19 14:11] LABS: Glucose,Whole Blood 183 mg/dL (70-110)
[2023-12-19 15:12] LABS: Glucose,Whole Blood 183 mg/dL (70-110)
[2023-12-19 16:12] LABS: Glucose,Whole Blood 182 mg/dL (70-110)
[2023-12-19 17:08] LABS: Glucose,Whole Blood 156 mg/dL (70-110)
[2023-12-19 18:09] LABS: Glucose,Whole Blood 151 mg/dL (70-110)
[2023-12-19 18:57] LABS: Glucose,Whole Blood 127 mg/dL (70-110)
[2023-12-19 19:59] LABS: Glucose,Whole Blood 159 mg/dL (70-110)
[2023-12-19 21:01] LABS: Glucose,Whole Blood 189 mg/dL (70-110)
[2023-12-19 21:58] LABS: Glucose,Whole Blood 217 mg/dL (70-110)
[2023-12-19 22:58] LABS: Glucose,Whole Blood 212 mg/dL (70-110)
[2023-12-20 00:08] LABS: Glucose,Whole Blood 185 mg/dL (70-110)
[2023-12-20 00:49] LABS: African American GFR (CKD) 70 (>60 ml/min/1.73 sqM); Anion Gap 0 mmol/L; Blood Urea Nitrogen 31 mg/dL (7-17); Carbon Dioxide 25 mmol/L (22-30); Chloride 119 mmol/L (98-107); Glucose 165 mg/dL (74-99); Magnesium 2.2 mg/dL (1.6-2.3); Non-African American GFR(CKD) 61 (>60 ml/min/1.73 sqM); Potassium 3.8 mmol/L (3.5-5.1); Sodium 144 mmol/L (137-145)
[2023-12-20 00:55] LABS: Glucose,Whole Blood 172 mg/dL (70-110)
[2023-12-20 02:16] LABS: Glucose,Whole Blood 188 mg/dL (70-110)
[2023-12-20 02:59] LABS: Glucose,Whole Blood 172 mg/dL (70-110)
[2023-12-20 04:05] LABS: Glucose,Whole Blood 147 mg/dL (70-110)
[2023-12-20 04:21] LABS: Anisocytosis Moderate; Basophils % (A) 0 %; Eosinophils % (A) 0 %; HCT 30.4 % (34.0-46.0); HGB 8.5 gm/dL (11.4-16.0); Hypochromasia Marked; Lymphocytes # (A) 0.3 k/uL (1.0-4.8); Lymphocytes % (A) 5 %; MCH 20.1 pg (25.0-35.0); MCHC 27.9 g/dL (31.0-37.0); MCV 71.8 fL (80.0-100.0); Mean Platelet Volume 8.3; Microcytosis Marked; Monocytes # (A) 0.2 k/uL (0-1.0); Monocytes % (A) 3 %; Neutrophils # (A) 5.4 k/uL (1.3-7.7); Neutrophils % (A) 92 %; Platelet Count 236 k/uL (150-450); RBC 4.23 m/uL (3.80-5.40); RDW 20.6 % (11.5-15.5); WBC 5.9 k/uL (3.8-10.6)
[2023-12-20 04:29] LABS: African American GFR (CKD) 69 (>60 ml/min/1.73 sqM); Anion Gap 3 mmol/L; Blood Urea Nitrogen 32 mg/dL (7-17); Carbon Dioxide 23 mmol/L (22-30); Chloride 119 mmol/L (98-107); Glucose 145 mg/dL (74-99); Magnesium 2.2 mg/dL (1.6-2.3); Non-African American GFR(CKD) 60 (>60 ml/min/1.73 sqM); Sodium 145 mmol/L (137-145)
[2023-12-20 04:58] LABS: Glucose,Whole Blood 141 mg/dL (70-110)
[2023-12-20 05:08] LABS: Glucose,Whole Blood 152 mg/dL (70-110)
[2023-12-20 05:38] LABS: ABG Base Excess -1.6 mmol/L; ABG HCO3 23 mmol/L (21-25); ABG Oxygen Saturation 98.6 % (94-97); ABG PCO2 38 mmHg (35-45); ABG PO2 126 mmHg (83-108); ABG TCO2 24 mmol/L (19-24)
[2023-12-20 05:41] LABS: Allen Test Performed? No
[2023-12-20 06:03] LABS: Glucose,Whole Blood 146 mg/dL (70-110)
[2023-12-20 06:57] LABS: Glucose,Whole Blood 160 mg/dL (70-110)
--- NOTE | 2023-12-20 07:33 | P.PN ---
Subjective Progress Note Date: 12/20/23 Principal diagnosis: Shortness of breath The patient is a 73-year-old female patient with extensive cardiac history consistent of coronary artery disease with a prior revascularization with CABG and stenting with the last heart catheterization was performed in September 2023 and no need for revascularization advised at that point as well as cardiomyopathy with an ejection fraction between 30-35% as well as valvular heart disease with moderate mitral regurgitation. The patient presented to the hospital with shortness of breath associated with extensive cough and congestion. Initially she was admitted to the third floor but because she continues to have extensive cough associated with respiratory distress she was transferred to the intensive care unit and subsequently she was intubated and placed on mechanical ventilation. 12/19/2023 The patient was seen this morning. She is hemodynamically stable beside soft blood pressure. Currently she is not on vasopressors and she was weaned from vasopressors earlier today. Beside that she has been maintaining normal sinus mechanism. The possible diagnosis is pneumonia/sepsis and blood culture was sent. She doesn't seems in overt congestive heart failure overall. We'll follow-up with a chest x-ray from this morning. She was given one dose of Lasix last night. The last echo from September showed an EF between 30-35%. The examination is remarkable for regular rhythm with distant heart sounds and diminished breathing sounds bilaterally and no edema was noted. 12/20/2023 The patient was seen and evaluated this morning. She continues to be intubated on mechanical ventilation but hemodynamically stable with a soft blood pressure and mean pressure above 65 mmHg. She underwent bronchoscopy yesterday. The est x-ray showed right lower lobe infiltrate/pneumonia. She is on antibiotic. She has been maintaining normal sinus mechanism with ventricular bigeminy but her electrolytes including potassium was on the low side and that has been replaced. From a cardiac arrest or standpoint of view, would continue the current medical regimen and continue following up with the patient. The examination is remarkable for regular rhythm with diminished breathing sounds bilaterally Assessment Acute respiratory distress Acute respiratory failure Pneumonia Coronary artery disease Cardiomyopathy Multiple comorbid conditions Valvular heart disease Plan Continue the current medical regimen Continue supporting the pressure hemodynamically Follow-up with the blood culture No need for any further cardiac testing at this point Follow-up with the patient Objective - Vital Signs Vital signs: Vital Signs Temp 99.0 F 12/20/23 00:00 Pulse 102 H 12/20/23 07:00 Resp 31 H 12/20/23 07:00 BP 90/58 12/20/23 07:00 Pulse Ox 95 12/20/23 07:00 FiO2 30 12/20/23 06:00 Intake & Output 12/19/23 12/20/23 12/20/23 18:59 06:59 18:59 Intake Total 2370.242 9111.828 Output Total 370 485 Balance 849.978 713.828 Weight 88 kg 90 kg Intake: IV 230 600 Invasive Line 5 30 Sodium Chloride 0.9% 1, 200 000 ml @ 100 mls/hr IV . Q10H [facility] Rx#:[id number] Sodium Chloride 0.9% 1, 600 000 ml @ 50 mls/hr IV . Q20H [facility] Rx#:[id number] Intake, IV Titration 899.978 220.828 Amount Insulin Regular 100 unit 25.263 17.361 In Sodium Chloride 0.9% 100 ml @ Titrate IV .Q0M [facility] Rx#:[id number] Piperacillin-Tazobactam 3 100 .375 gm In Sodium Chloride 0.9% 100 ml @ 25 mls/hr IVPB Q8HR [facility] Rx# :[id number] Sodium Chloride 0.9% 1, 550 000 ml @ 50 mls/hr IV . Q20H [facility] Rx#:[id number] propofoL 1,000 mg In 224.715 203.467 Empty Bag 1 bag @ 15 MCG/ KG/MIN 7.348 mls/hr IV . [id number] [facility] Rx#:[id number] Tube Feeding 60 288 Other 30 90 Output: Urine 370 485 Other: Voiding Method Indwelling Catheter Indwelling Catheter ABP, PAP, CO, CI - Last Documented Arterial Blood Pressure 99/54 - Labs CBC & Chem 7: 12/20/23 04:00 12/20/23 04:00 Labs: Abnormal Lab Results - Last 24 Hours (Table) 12/18/23 12/19/23 12/19/23 Range/Units 16:40 08:54 10:16 Hgb (11.4-16.0) gm/dL Hct (34.0-46.0) % MCV (80.0-100.0) fL MCH (25.0-35.0) pg MCHC (31.0-37.0) g/dL RDW (11.5-15.5) % Lymphocytes # (1.0-4.8) k/uL ABG pO2 (83-108) mmHg ABG O2 Saturation (94-97) % Chloride (98-107) mmol/L BUN (7-17) mg/dL Glucose (74-99) mg/dL POC Glucose (mg/dL) 159 H 139 H (70-110) mg/dL Calcium (8.4-10.2) mg/dL Fluid Appearance Bloody A (Clear) Fluid RBC 1234501 H (0-2000) /uL 12/19/23 12/19/23 12/19/23 Range/Units 11:04 12:06 13:14 Hgb (11.4-16.0) gm/dL Hct (34.0-46.0) % MCV (80.0-100.0) fL MCH (25.0-35.0) pg MCHC (31.0-37.0) g/dL RDW (11.5-15.5) % Lymphocytes # (1.0-4.8) k/uL ABG pO2 (83-108) mmHg ABG O2 Saturation (94-97) % Chloride (98-107) mmol/L BUN (7-17) mg/dL Glucose (74-99) mg/dL POC Glucose (mg/dL) 143 H 151 H 171 H (70-110) mg/dL Calcium (8.4-10.2) mg/dL Fluid Appearance (Clear) Fluid RBC (0-2000) /uL 12/19/23 12/19/23 12/19/23 Range/Units 14:09 15:10 16:11 Hgb (11.4-16.0) gm/dL Hct (34.0-46.0) % MCV (80.0-100.0) fL MCH (25.0-35.0) pg MCHC (31.0-37.0) g/dL RDW (11.5-15.5) % Lymphocytes # (1.0-4.8) k/uL ABG pO2 (83-108) mmHg ABG O2 Saturation (94-97) % Chloride (98-107) mmol/L BUN (7-17) mg/dL Glucose (74-99) mg/dL POC Glucose (mg/dL) 183 H 183 H 182 H (70-110) mg/dL Calcium (8.4-10.2) mg/dL Fluid Appearance (Clear) Fluid RBC (0-1999) /uL 12/19/23 12/19/23 12/19/23 Range/Units 17:07 18:07 18:56 Hgb (11.4-16.0) gm/dL Hct (34.0-46.0) % MCV (80.0-100.0) fL MCH (25.0-35.0) pg MCHC (31.0-37.0) g/dL RDW (11.5-15.5) % Lymphocytes # (1.0-4.8) k/uL ABG pO2 (83-108) mmHg ABG O2 Saturation (94-97) % Chloride (98-107) mmol/L BUN (7-17) mg/dL Glucose (74-99) mg/dL POC Glucose (mg/dL) 156 H 151 H 127 H (70-110) mg/dL Calcium (8.4-10.2) mg/dL Fluid Appearance (Clear) Fluid RBC (0-1999) /uL 12/19/23 12/19/23 12/19/23 Range/Units 19:57 20:59 21:57 Hgb (11.4-16.0) gm/dL Hct (34.0-46.0) % MCV (80.0-100.0) fL MCH (25.0-35.0) pg MCHC (31.0-37.0) g/dL RDW (11.5-15.5) % Lymphocytes # (1.0-4.8) k/uL ABG pO2 (83-108) mmHg ABG O2 Saturation (94-97) % Chloride (98-107) mmol/L BUN (7-17) mg/dL Glucose (74-99) mg/dL POC Glucose (mg/dL) 159 H 189 H 217 H (70-110) mg/dL Calcium (8.4-10.2) mg/dL Fluid Appearance (Clear) Fluid RBC (0-1999) /uL 12/19/23 12/20/23 12/20/23 Range/Units 22:57 00:07 00:30 Hgb (11.4-16.0) gm/dL Hct (34.0-46.0) % MCV (80.0-100.0) fL MCH (25.0-35.0) pg MCHC (31.0-37.0) g/dL RDW (11.5-15.5) % Lymphocytes # (1.0-4.8) k/uL ABG pO2 (83-108) mmHg ABG O2 Saturation (94-97) % Chloride 119 H (98-107) mmol/L BUN 31 H (7-17) mg/dL Glucose 165 H (74-99) mg/dL POC Glucose (mg/dL) 212 H 185 H (70-110) mg/dL Calcium 8.0 L (8.4-10.2) mg/dL Fluid Appearance (Clear) Fluid RBC (0-1999) /uL 12/20/23 12/20/23 12/20/23 Range/Units 00:53 02:14 02:58 Hgb (11.4-16.0) gm/dL Hct (34.0-46.0) % MCV (80.0-100.0) fL MCH (25.0-35.0) pg MCHC (31.0-37.0) g/dL RDW (11.5-15.5) % Lymphocytes # (1.0-4.8) k/uL ABG pO2 (83-108) mmHg ABG O2 Saturation (94-97) % Chloride (98-107) mmol/L BUN (7-17) mg/dL Glucose (74-99) mg/dL POC Glucose (mg/dL) 172 H 188 H 172 H (70-110) mg/dL Calcium (8.4-10.2) mg/dL Fluid Appearance (Clear) Fluid RBC (0-1999) /uL 12/20/23 12/20/23 12/20/23 Range/Units 04:00 04:00 04:03 Hgb 8.5 L (11.4-16.0) gm/dL Hct 30.4 L (34.0-46.0) % MCV 71.8 L (80.0-100.0) fL MCH 20.1 L (25.0-35.0) pg MCHC 27.9 L (31.0-37.0) g/dL RDW 20.6 H (11.5-15.5) % Lymphocytes # 0.3 L (1.0-4.8) k/uL ABG pO2 (83-108) mmHg ABG O2 Saturation (94-97) % Chloride 119 H (98-107) mmol/L BUN 32 H (7-17) mg/dL Glucose 145 H (74-99) mg/dL POC Glucose (mg/dL) 147 H (70-110) mg/dL Calcium 8.0 L (8.4-10.2) mg/dL Fluid Appearance (Clear) Fluid RBC (0-2000) /uL 12/20/23 12/20/23 12/20/23 Range/Units 04:57 05:06 05:37 Hgb (11.4-16.0) gm/dL Hct (34.0-46.0) % MCV (80.0-100.0) fL MCH (25.0-35.0) pg MCHC (31.0-37.0) g/dL RDW (11.5-15.5) % Lymphocytes # (1.0-4.8) k/uL ABG pO2 126 H (83-108) mmHg ABG O2 Saturation 98.6 H (94-97) % Chloride (98-107) mmol/L BUN (7-17) mg/dL Glucose (74-99) mg/dL POC Glucose (mg/dL) 141 H 152 H (70-110) mg/dL Calcium (8.4-10.2) mg/dL Fluid Appearance (Clear) Fluid RBC (0-1999) /uL 12/20/23 12/20/23 Range/Units 06:01 06:55 Hgb (11.4-16.0) gm/dL Hct (34.0-46.0) % MCV (80.0-100.0) fL MCH (25.0-35.0) pg MCHC (31.0-37.0) g/dL RDW (11.5-15.5) % Lymphocytes # (1.0-4.8) k/uL ABG pO2 (83-108) mmHg ABG O2 Saturation (94-97) % Chloride (98-107) mmol/L BUN (7-17) mg/dL Glucose (74-99) mg/dL POC Glucose (mg/dL) 146 H 160 H (70-110) mg/dL Calcium (8.4-10.2) mg/dL Fluid Appearance (Clear) Fluid RBC (0-2000) /uL Microbiology - Last 24 Hours (Table) 12/18/23 16:40 Acid Fast Bacilli Smear - Preliminary Bronchoalviolar Lavage - Right 12/17/23 08:34 Blood Culture - Preliminary Blood 12/18/23 16:40 Gram Stain - Preliminary Bronchoalviolar Lavage - Right 12/18/23 14:48 Gram Stain - Preliminary Sputum
[2023-12-20 07:56] LABS: Glucose,Whole Blood 150 mg/dL (70-110)
--- NOTE | 2023-12-20 08:26 | XR ---
EXAMINATION TYPE: XR chest 1V portable DATE OF EXAM: 12/20/2023 Comparison: 12/19/2023 Clinical History: 73-year-old female Tube placement Findings: r ET tube tip obscured by median sternotomy wires. Estimated to measure 3.3 cm from the nahun. Atten tion on follow-up. Post-CABG clips. NG tube courses below the diaphragm. Heart remains enlarged. Tiffanie hilar and diffuse interstitial density persists and may show slight worsening. Patchy and hazy bibasi lar opacities also persist. Impression: 1. The ET tube tip is obscured by overlying median sternotomy wires. Likely satisfactory. Attention o n follow-up. 2. CHF with interstitial pulmonary edema, similar to slightly worsened. 3. Small bilateral pleural effusions with adjacent atelectasis and/or consolidation.
[2023-12-20] MEDS: FUROSEMIDE 10 MG/ML 4 ML VIAL IV STA (08:54)
[2023-12-20 09:13] LABS: Glucose,Whole Blood 153 mg/dL (70-110)
[2023-12-20 09:31] LABS: ALT 390 U/L (4-34); AST 222 U/L (14-36)
--- NOTE | 2023-12-20 09:56 | P.PN ---
Subjective Progress Note Date: 12/20/23 Mari Moore, is a 73 year old female who presented to [facility] with a chief complaint of worsening shortness of breath. Patient reports she's had a nonproductive cough and generalized weakness and upper respiratory symptoms over the past few days. Patient has an extensive medical history including asthma, heart failure, COPD, coronary artery disease with previous history of CABG, diabetes mellitus, fibromyalgia, sleep apnea, ex- smoker and current marijuana user. Chest x-ray completed in ER showing no acute pulmonary infiltrate. Current vital signs showing temperature 97.6, heart rate 97, respiratory 18, blood pressure 98/49 with a pulse ox of 96% on room air patient testing negative for influenza RSV and COVID-19. UA negative. Troponins negative 2. BNP elevated at 2130. White blood cell within normal limits hemoglobin 8.9 at this time primary service is consulted. Will consult cardiology services in order 2-D echo. Iron studies ordered for anemia patient started on IV Solu-Medrol DuoNeb breathing treatments. At this time pulmonary and cardiology services consulted. Continue azithromycin for upper respiratory infection. Iron studies for low hemoglobin. On 12/18/2023 patient was seen and examined in the ICU her condition has worsened this morning, she was having severe continuous cough and shortness of breath, she had decrease in her O2 sat duration, she was transferred to intensive care unit, chest x-ray revealed significant worsening since x-ray done on 12/16/2023 with large right middle lobe and right lower lobe infiltrates, possibly related to aspiration. At this time patient is intubated, sedated started on mechanical ventilation, IV Zosyn was added to her medication regimen, pulmonary critical care following. On 12/19/2023 patient remains in the ICU on mechanical ventilation FiO2 40%. Patient remains on IV sedation. Levophed has been DC'd. Patient remains on IV steroids and IV antibiotics. Pulmonary and cardiology services following. ABGs this a.m. pH 7.36, pCO2 40, pO2 189, HCO3 23 and total CO2 24. On 12/20/2023 patient remains in the ICU on mechanical ventilation FiO2 30%. Liver enzymes trending down AST 222 ALT 390. ABGs this a.m. pH 7.40, pCO2 38, pO2 126 sodium bicarb 24. Patient remains on IV Zosyn and IV vancomycin. Patient [place] on IV steroids Objective - Vital Signs Vital signs: Vital Signs Temp 98.8 F 12/20/23 08:00 Pulse 100 12/20/23 09:05 Resp 25 H 12/20/23 09:05 BP 90/58 12/20/23 07:00 Pulse Ox 95 12/20/23 08:00 FiO2 30 12/20/23 08:33 Intake & Output 12/19/23 12/20/23 12/20/23 18:59 06:59 18:59 Intake Total 5025.583 6625.828 164 Output Total 370 485 70 Balance 849.978 713.828 94 Weight 88 kg 90 kg Intake: IV 230 600 70 Invasive Line 5 30 Sodium Chloride 0.9% 1, 200 000 ml @ 100 mls/hr IV . Q10H [facility] Rx#:[id number] Sodium Chloride 0.9% 1, 600 70 000 ml @ 20 mls/hr IV . Q24H [facility] Rx#:[id number] Intake, IV Titration 899.978 220.828 Amount Insulin Regular 100 unit 25.263 17.361 In Sodium Chloride 0.9% 100 ml @ Titrate IV .Q0M [facility] Rx#:[id number] Piperacillin-Tazobactam 3 100 .375 gm In Sodium Chloride 0.9% 100 ml @ 25 mls/hr IVPB Q8HR [facility] Rx# :[id number] Sodium Chloride 0.9% 1, 550 000 ml @ 20 mls/hr IV . Q24H [facility] Rx#:[id number] propofoL 1,000 mg In 224.715 203.467 Empty Bag 1 bag @ 15 MCG/ KG/MIN 7.348 mls/hr IV . [id number] [facility] Rx#:[id number] Tube Feeding 60 288 64 Other 30 90 30 Output: Urine 370 485 70 Other: Voiding Method Indwelling Catheter Indwelling Catheter ABP, PAP, CO, CI - Last Documented Arterial Blood Pressure 100/54 - Exam In general patient is intubated sedated maintained on mechanical ventilation Head normocephalic and atraumatic Neck supple no JVD no goiter Lungs exam reveals coarse crackles bilaterally no wheezing Heart regular rate and rhythm S1-S2, no rub or gallop Abdomen is soft nontender nondistended positive bowel sounds no hepatosplenomegaly Extremities no edema Neuro no gross focal deficit - Labs CBC & Chem 7: 12/20/23 04:00 12/20/23 04:00 Labs: Abnormal Lab Results - Last 24 Hours (Table) 12/18/23 12/19/23 12/19/23 Range/Units 16:40 10:16 11:04 Hgb (11.4-16.0) gm/dL Hct (34.0-46.0) % MCV (80.0-100.0) fL MCH (25.0-35.0) pg MCHC (31.0-37.0) g/dL RDW (11.5-15.5) % Lymphocytes # (1.0-4.8) k/uL ABG pO2 (83-108) mmHg ABG O2 Saturation (94-97) % Chloride (98-107) mmol/L BUN (7-17) mg/dL Glucose (74-99) mg/dL POC Glucose (mg/dL) 139 H 143 H (70-110) mg/dL Calcium (8.4-10.2) mg/dL AST (14-36) U/L ALT (4-34) U/L Fluid Appearance Bloody A (Clear) Fluid RBC [id number] H (0-2000) /uL 12/19/23 12/19/23 12/19/23 Range/Units 12:06 13:14 14:09 Hgb (11.4-16.0) gm/dL Hct (34.0-46.0) % MCV (80.0-100.0) fL MCH (25.0-35.0) pg MCHC (31.0-37.0) g/dL RDW (11.5-15.5) % Lymphocytes # (1.0-4.8) k/uL ABG pO2 (83-108) mmHg ABG O2 Saturation (94-97) % Chloride (98-107) mmol/L BUN (7-17) mg/dL Glucose (74-99) mg/dL POC Glucose (mg/dL) 151 H 171 H 183 H (70-110) mg/dL Calcium (8.4-10.2) mg/dL AST (14-36) U/L ALT (4-34) U/L Fluid Appearance (Clear) Fluid RBC (0-2000) /uL 12/19/23 12/19/23 12/19/23 Range/Units 15:10 16:11 17:07 Hgb (11.4-16.0) gm/dL Hct (34.0-46.0) % MCV (80.0-100.0) fL MCH (25.0-35.0) pg MCHC (31.0-37.0) g/dL RDW (11.5-15.5) % Lymphocytes # (1.0-4.8) k/uL ABG pO2 (83-108) mmHg ABG O2 Saturation (94-97) % Chloride (98-107) mmol/L BUN (7-17) mg/dL Glucose (74-99) mg/dL POC Glucose (mg/dL) 183 H 182 H 156 H (70-110) mg/dL Calcium (8.4-10.2) mg/dL AST (14-36) U/L ALT (4-34) U/L Fluid Appearance (Clear) Fluid RBC (0-2000) /uL 12/19/23 12/19/23 12/19/23 Range/Units 18:07 18:56 19:57 Hgb (11.4-16.0) gm/dL Hct (34.0-46.0) % MCV (80.0-100.0) fL MCH (25.0-35.0) pg MCHC (31.0-37.0) g/dL RDW (11.5-15.5) % Lymphocytes # (1.0-4.8) k/uL ABG pO2 (83-108) mmHg ABG O2 Saturation (94-97) % Chloride (98-107) mmol/L BUN (7-17) mg/dL Glucose (74-99) mg/dL POC Glucose (mg/dL) 151 H 127 H 159 H (70-110) mg/dL Calcium (8.4-10.2) mg/dL AST (14-36) U/L ALT (4-34) U/L Fluid Appearance (Clear) Fluid RBC (0-2000) /uL 12/19/23 12/19/23 12/19/23 Range/Units 20:59 21:57 22:57 Hgb (11.4-16.0) gm/dL Hct (34.0-46.0) % MCV (80.0-100.0) fL MCH (25.0-35.0) pg MCHC (31.0-37.0) g/dL RDW (11.5-15.5) % Lymphocytes # (1.0-4.8) k/uL ABG pO2 (83-108) mmHg ABG O2 Saturation (94-97) % Chloride (98-107) mmol/L BUN (7-17) mg/dL Glucose (74-99) mg/dL POC Glucose (mg/dL) 189 H 217 H 212 H (70-110) mg/dL Calcium (8.4-10.2) mg/dL AST (14-36) U/L ALT (4-34) U/L Fluid Appearance (Clear) Fluid RBC (0-1999) /uL 12/20/23 12/20/23 12/20/23 Range/Units 00:07 00:30 00:53 Hgb (11.4-16.0) gm/dL Hct (34.0-46.0) % MCV (80.0-100.0) fL MCH (25.0-35.0) pg MCHC (31.0-37.0) g/dL RDW (11.5-15.5) % Lymphocytes # (1.0-4.8) k/uL ABG pO2 (83-108) mmHg ABG O2 Saturation (94-97) % Chloride 119 H (98-107) mmol/L BUN 31 H (7-17) mg/dL Glucose 165 H (74-99) mg/dL POC Glucose (mg/dL) 185 H 172 H (70-110) mg/dL Calcium 8.0 L (8.4-10.2) mg/dL AST (14-36) U/L ALT (4-34) U/L Fluid Appearance (Clear) Fluid RBC (0-2000) /uL 12/20/23 12/20/23 12/20/23 Range/Units 02:14 02:58 04:00 Hgb (11.4-16.0) gm/dL Hct (34.0-46.0) % MCV (80.0-100.0) fL MCH (25.0-35.0) pg MCHC (31.0-37.0) g/dL RDW (11.5-15.5) % Lymphocytes # (1.0-4.8) k/uL ABG pO2 (83-108) mmHg ABG O2 Saturation (94-97) % Chloride 119 H (98-107) mmol/L BUN 32 H (7-17) mg/dL Glucose 145 H (74-99) mg/dL POC Glucose (mg/dL) 188 H 172 H (70-110) mg/dL Calcium 8.0 L (8.4-10.2) mg/dL AST (14-36) U/L ALT (4-34) U/L Fluid Appearance (Clear) Fluid RBC (0-2000) /uL 12/20/23 12/20/23 12/20/23 Range/Units 04:00 04:00 04:03 Hgb 8.5 L (11.4-16.0) gm/dL Hct 30.4 L (34.0-46.0) % MCV 71.8 L (80.0-100.0) fL MCH 20.1 L (25.0-35.0) pg MCHC 27.9 L (31.0-37.0) g/dL RDW 20.6 H (11.5-15.5) % Lymphocytes # 0.3 L (1.0-4.8) k/uL ABG pO2 (83-108) mmHg ABG O2 Saturation (94-97) % Chloride (98-107) mmol/L BUN (7-17) mg/dL Glucose (74-99) mg/dL POC Glucose (mg/dL) 147 H (70-110) mg/dL Calcium (8.4-10.2) mg/dL AST 222 H (14-36) U/L ALT 390 H (4-34) U/L Fluid Appearance (Clear) Fluid RBC (0-2000) /uL 12/20/23 12/20/23 12/20/23 Range/Units 04:57 05:06 05:37 Hgb (11.4-16.0) gm/dL Hct (34.0-46.0) % MCV (80.0-100.0) fL MCH (25.0-35.0) pg MCHC (31.0-37.0) g/dL RDW (11.5-15.5) % Lymphocytes # (1.0-4.8) k/uL ABG pO2 126 H (83-108) mmHg ABG O2 Saturation 98.6 H (94-97) % Chloride (98-107) mmol/L BUN (7-17) mg/dL Glucose (74-99) mg/dL POC Glucose (mg/dL) 141 H 152 H (70-110) mg/dL Calcium (8.4-10.2) mg/dL AST (14-36) U/L ALT (4-34) U/L Fluid Appearance (Clear) Fluid RBC (0-2000) /uL 12/20/23 12/20/23 12/20/23 Range/Units 06:01 06:55 07:54 Hgb (11.4-16.0) gm/dL Hct (34.0-46.0) % MCV (80.0-100.0) fL MCH (25.0-35.0) pg MCHC (31.0-37.0) g/dL RDW (11.5-15.5) % Lymphocytes # (1.0-4.8) k/uL ABG pO2 (83-108) mmHg ABG O2 Saturation (94-97) % Chloride (98-107) mmol/L BUN (7-17) mg/dL Glucose (74-99) mg/dL POC Glucose (mg/dL) 146 H 160 H 150 H (70-110) mg/dL Calcium (8.4-10.2) mg/dL AST (14-36) U/L ALT (4-34) U/L Fluid Appearance (Clear) Fluid RBC (0-2000) /uL 12/20/23 Range/Units 09:10 Hgb (11.4-16.0) gm/dL Hct (34.0-46.0) % MCV (80.0-100.0) fL MCH (25.0-35.0) pg MCHC (31.0-37.0) g/dL RDW (11.5-15.5) % Lymphocytes # (1.0-4.8) k/uL ABG pO2 (83-108) mmHg ABG O2 Saturation (94-97) % Chloride (98-107) mmol/L BUN (7-17) mg/dL Glucose (74-99) mg/dL POC Glucose (mg/dL) 153 H (70-110) mg/dL Calcium (8.4-10.2) mg/dL AST (14-36) U/L ALT (4-34) U/L Fluid Appearance (Clear) Fluid RBC (0-2000) /uL Microbiology - Last 24 Hours (Table) 12/18/23 16:40 Acid Fast Bacilli Smear - Preliminary Bronchoalviolar Lavage - Right 12/17/23 08:34 Blood Culture - Preliminary Blood 12/18/23 16:40 Gram Stain - Preliminary Bronchoalviolar Lavage - Right 12/18/23 14:48 Gram Stain - Preliminary Sputum Assessment and Plan Assessment: 1. Acute exacerbation of COPD. 2. Acute on chronic exacerbation of systolic CHF 3. Anemia. Iron studies ordered 4. Cardiomyopathy with an EF of 30-35% 5. History of non-STEMI September 2023 status post cardiac cath showing 80% stenosis of the stent patent 6. History of coronary artery disease disease status post CABG 7. History of diabetes mellitus type II 8. History of essential hypertension 9. History of hyperlipidemia. 10. Acute hypoxic respiratory failure requiring intubation and mechanical ventilation on 12/18/2023 11. Right middle lobe and right lower lobe infiltrates, suggestive of pneumonia, possible aspiration. DVT prophylaxis Lovenox. GI prophylaxis Protonix Cardiology and pulmonary service is consulted. Patient started on IV Solu-Medrol Repeat labs ordered iron studies ordered
[2023-12-20 10:01] LABS: Glucose,Whole Blood 159 mg/dL (70-110)
[2023-12-20 11:01] LABS: Glucose,Whole Blood 159 mg/dL (70-110)
[2023-12-20] MEDS: DILTIAZEM 125 MG in SODIUM CHLORIDE 0.9% 100 ML IV SCH (12:45)
[2023-12-20] MEDS: DILTIAZEM DRIP BOLUS FROM BAG 1 MG SOLN IV ONE (12:45)
[2023-12-20 13:34] LABS: Glucose,Whole Blood 196 mg/dL (70-110)
[2023-12-20 15:01] LABS: Glucose,Whole Blood 176 mg/dL (70-110)
--- NOTE | 2023-12-20 15:20 | P.PN ---
Subjective Progress Note Date: 12/20/23 On 12/18/2023, the patient is being seen in follow-up on the medical floor. The patient was found to be in significant degree of respiratory distress and the patient was using some accessory muscles of breathing. She was having frequent coughing episode and she was unable to catch her breath in between those coughing episodes. She was still responsive and communicating. At that point, I made recommendations to transfer this patient to the intensive care unit for further monitoring. Within 20 minutes, the patient became more diaphoretic, lethargic, quite obtunded and at that point, the patient had to be intubated and placed on the mechanical ventilator. I personally intubated the patient in the intensive care unit. I have her on a tidal volume of 350, rate of 24 with an FiO2 of 100% with a PEEP of 5. Postintubation chest x-ray showed extensive consolidation of the right lung and there is new airspace disease throughout the right lung along with some areas of consolidations and interstitial changes. Post NG tube insertion, the patient's stomach was decompressed and there was total amount of 500 cc of gastric material aspirated from the stomach. No reported aspiration. Obviously, the patient has multifocal pneumonia at this point in time more extensive in the right lung especially in the right middle and right lower lobe area. The white cell count at 7.1 with a hemoglobin 8.8, BUN is at 15 with a creatinine of 0.5 and sodium levels at 137. Potassium level is at 4.2. The patient was started on propofol for sedation. She was given also a dose of Nimbex during the intubation process 10 mg IV x 1. Blood gas are still pending. She may need a bronchoscopy and right lower lobe bronchoalveolar lavage. She remains on bronchodilators. She remains on steroids. Antibiotics will be modified and Zosyn will be added in combination with Zithromax. She has not required any pressors yet. She will be given a bolus of 1 L and following that she will be started on a maintenance of 100 cc an hour. Condition is obviously is critical at this point in time. Echocardiogram that was obtained on 10/19/2023 showed systolic heart failure with an underlying left ventricular ejection fraction of 30 to 35%. The patient also had mild RV dilatation, mild aortic regurgitation, mild to moderate mitral Regurgitation with a right ventricular systolic pressure of 32. He also has moderate degree of pulm hypertension. On today's evaluation of 12/19/2023, the patient is intubated on the mechanical ventilator. Overnight, the patient was kept intubated and the patient is sedated adequately with propofol which is running at 35 mcg/kg/min. As mentioned, the patient developed an extensive right lung pneumonia with respiratory failure requiring intubation mechanical ventilation. She currently has a #7.5 orotracheal tube. She is on assist-control mode of mechanical ventilation at a rate of 30, tidal volume of 350, FiO2 of 40% and a PEEP of 5. The peak airway pressure is around 25. The chest x-ray from today showing bilateral pleural effusion and significant consolidation of the right lung base and there is also some limited infiltration of the left lung base. I performed a bronchoscopy on this patient yesterday endobronchial lavage of the right lower lobe was obtained. The results are still pending for now. Meanwhile, the patient was covered with broad-spectrum antibiotic coverage and she is currently on a combination of Zosyn, Zithromax and vancomycin. The peak airway pressure is ranging between 21 and 23. The blood gas shows improvement in the pH is currently up to 7.36 with a pCO2 of 40 and pO2 of 189. Note that the patient was also given 2 doses of bicarb yesterday as the patient was quite acidotic. Rest of the blood work from today shows a WBC count of 9.9, hemoglobin of 9.1 and a platelet count of 288. Sodium is at 143,. Potassium level is at 3.8, BUN is at 25 with a creatinine of 0.9. LFTs are elevated with an AST of 525 and ALT of 448 and a bilirubin of 0.8. Her urine drug screen is positive for cannabis and the patient admits to smoke marijuana on a daily basis approximately 2 joints a day. She is on DuoNeb nebulized treatments [id number]. She is also on a combination of Perforomist and Pulmicort updrafts. She remains on IV Solu-Medrol. She is also on Lovenox 40 mg subcu for DVT prophylaxis. Feeding has not been started yet. Echocardiogram that was done on 10/19/2023 showed impaired LV function with an ejection fraction of 30 to 35%. We have not encountered any hypotension on this patient. She was quite tachycardic yesterday and she was placed briefly on norepinephrine yesterday for some limited hypotension and this ultimately improved and her current mean arterial pressure is around 74. She is on insulin drip running at 3 units an hour. Blood sugars under better control for now. On 12/20/2023, the patient remains intubated on the mechanical ventilator. Note that the patient is also sedated with a combination of fentanyl and propofol. The propofol is running at 35 mcg/kg/min and the patient is also on fentanyl 0.5 mcg/kg/h. Adequately sedated and the patient is synchronous with mechanical yoel tilator. She is currently at a rate of 30, tidal volume of 350, FiO2 is down to 30% with a PEEP of 5. The follow-up chest x-ray showsNo significant consolidation. There is improved in the right lower lobe consolidation. There is also cardiomegaly and CHF with interstitial edema and small bilateral pleural effusion. ET tube remains in a good location. As for the blood gas, the patient has a pH of 7.4 with a pCO2 of 38 and pO2 of 126 and this was on FiO2 of 40%. No significant orotracheal secretions. Bronchoscopy endobronchial done but results are still pending for now and there is no significant microbial growth. The blood cultures been negative. On blood work, the patient's white c ell count is 5.9 with a hemoglobin of 8.5 and a platelet count of 236. Sodium is 145, potassium is at 4, BUN is at 33 with a creatinine of 0.9. Viral screen has been negative. Legionella urine antigen has been negative. The patient is also receiving enteral feeding for nutritional support. The patient is currently on vital high-protein at the rate of 30 cc an hour and the patient is also on insulin drip at 5 units an hour. Overall fluid balance is +1.5 L over the past 24 hours. Objective - Vital Signs Vital signs: Vital Signs Temp 99.0 F 12/20/23 00:00 Pulse 102 H 12/20/23 07:00 Resp 31 H 12/20/23 07:00 BP 90/58 12/20/23 07:00 Pulse Ox 95 12/20/23 07:00 FiO2 30 12/20/23 06:00 Intake & Output 12/19/23 12/20/23 12/20/23 18:59 06:59 18:59 Intake Total 6986.796 7941.828 82 Output Total 370 485 40 Balance 849.978 713.828 42 Weight 88 kg 90 kg Intake: IV 230 600 50 Invasive Line 5 30 Sodium Chloride 0.9% 1, 200 000 ml @ 100 mls/hr IV . Q10H [facility] Rx#:[id number] Sodium Chloride 0.9% 1, 600 50 000 ml @ 50 mls/hr IV . Q20H [facility] Rx#:[id number] Intake, IV Titration 899.978 220.828 Amount Insulin Regular 100 unit 25.263 17.361 In Sodium Chloride 0.9% 100 ml @ Titrate IV .Q0M [facility] Rx#:[id number] Piperacillin-Tazobactam 3 100 .375 gm In Sodium Chloride 0.9% 100 ml @ 25 mls/hr IVPB Q8HR [facility] Rx# :[id number] Sodium Chloride 0.9% 1, 550 000 ml @ 50 mls/hr IV . Q20H [facility] Rx#:[id number] propofoL 1,000 mg In 224.715 203.467 Empty Bag 1 bag @ 15 MCG/ KG/MIN 7.348 mls/hr IV . [id number] [facility] Rx#:[id number] Tube Feeding 60 288 32 Other 30 90 Output: Urine 370 485 40 Other: Voiding Method Indwelling Catheter Indwelling Catheter ABP, PAP, CO, CI - Last Documented Arterial Blood Pressure 99/54 - Exam Sedated on propofol and, comfortable, intubated on mechanical ventilator. Orogastric and orotracheal tube are both in place. Head exam was generally normal. There was no scleral icterus or corneal arcus. Mucous membranes were moist. Neck supple. Full range of motion. No adenopathy thyromegaly or neck vein distention. Cardiovascular examination reveals regular rhythm rate. S1-S2 normal. No S3 or S4. No discernible murmur noted. Heart sounds are distant. Patient is tachycardic although the rhythm strip is showing some sinus rhythm Lungs reveal coarse bilateral inspiratory and expiratory rhonchi. No crackles. Marked diminished breath sounds along with diffuse expiratory wheezes throughout the lung powers bilaterally. Abdomen soft bowel sounds are heard. No masses or tenderness. Extremities are intact. No cyanosis or clubbing. The patient does have a +1 edema lower extremities bilaterally Skin is without rash or lesion. Neurologic examination, the patient is currently sedated and the patient was withdrawing to painful stimulation moving all 4 extremities prior to intubation. Pupils are equal reactive to light. - Labs CBC & Chem 7: 12/20/23 04:00 12/20/23 04:00 Labs: Abnormal Lab Results - Last 24 Hours (Table) 12/18/23 12/19/23 12/19/23 Range/Units 16:40 08:54 10:16 Hgb (11.4-16.0) gm/dL Hct (34.0-46.0) % MCV (80.0-100.0) fL MCH (25.0-35.0) pg MCHC (31.0-37.0) g/dL RDW (11.5-15.5) % Lymphocytes # (1.0-4.8) k/uL ABG pO2 (83-108) mmHg ABG O2 Saturation (94-97) % Chloride (98-107) mmol/L BUN (7-17) mg/dL Glucose (74-99) mg/dL POC Glucose (mg/dL) 159 H 139 H (70-110) mg/dL Calcium (8.4-10.2) mg/dL Fluid Appearance Bloody A (Clear) Fluid RBC [id number] H (0-2000) /uL 12/19/23 12/19/23 12/19/23 Range/Units 11:04 12:06 13:14 Hgb (11.4-16.0) gm/dL Hct (34.0-46.0) % MCV (80.0-100.0) fL MCH (25.0-35.0) pg MCHC (31.0-37.0) g/dL RDW (11.5-15.5) % Lymphocytes # (1.0-4.8) k/uL ABG pO2 (83-108) mmHg ABG O2 Saturation (94-97) % Chloride (98-107) mmol/L BUN (7-17) mg/dL Glucose (74-99) mg/dL POC Glucose (mg/dL) 143 H 151 H 171 H (70-110) mg/dL Calcium (8.4-10.2) mg/dL Fluid Appearance (Clear) Fluid RBC (0-2000) /uL 12/19/23 12/19/23 12/19/23 Range/Units 14:09 15:10 16:11 Hgb (11.4-16.0) gm/dL Hct (34.0-46.0) % MCV (80.0-100.0) fL MCH (25.0-35.0) pg MCHC (31.0-37.0) g/dL RDW (11.5-15.5) % Lymphocytes # (1.0-4.8) k/uL ABG pO2 (83-108) mmHg ABG O2 Saturation (94-97) % Chloride (98-107) mmol/L BUN (7-17) mg/dL Glucose (74-99) mg/dL POC Glucose (mg/dL) 183 H 183 H 182 H (70-110) mg/dL Calcium (8.4-10.2) mg/dL Fluid Appearance (Clear) Fluid RBC (0-2000) /uL 12/19/23 12/19/23 12/19/23 Range/Units 17:07 18:07 18:56 Hgb (11.4-16.0) gm/dL Hct (34.0-46.0) % MCV (80.0-100.0) fL MCH (25.0-35.0) pg MCHC (31.0-37.0) g/dL RDW (11.5-15.5) % Lymphocytes # (1.0-4.8) k/uL ABG pO2 (83-108) mmHg ABG O2 Saturation (94-97) % Chloride (98-107) mmol/L BUN (7-17) mg/dL Glucose (74-99) mg/dL POC Glucose (mg/dL) 156 H 151 H 127 H (70-110) mg/dL Calcium (8.4-10.2) mg/dL Fluid Appearance (Clear) Fluid RBC (0-2000) /uL 12/19/23 12/19/23 12/19/23 Range/Units 19:57 20:59 21:57 Hgb (11.4-16.0) gm/dL Hct (34.0-46.0) % MCV (80.0-100.0) fL MCH (25.0-35.0) pg MCHC (31.0-37.0) g/dL RDW (11.5-15.5) % Lymphocytes # (1.0-4.8) k/uL ABG pO2 (83-108) mmHg ABG O2 Saturation (94-97) % Chloride (98-107) mmol/L BUN (7-17) mg/dL Glucose (74-99) mg/dL POC Glucose (mg/dL) 159 H 189 H 217 H (70-110) mg/dL Calcium (8.4-10.2) mg/dL Fluid Appearance (Clear) Fluid RBC (0-2000) /uL 12/19/23 12/20/23 12/20/23 Range/Units 22:57 00:07 00:30 Hgb (11.4-16.0) gm/dL Hct (34.0-46.0) % MCV (80.0-100.0) fL MCH (25.0-35.0) pg MCHC (31.0-37.0) g/dL RDW (11.5-15.5) % Lymphocytes # (1.0-4.8) k/uL ABG pO2 (83-108) mmHg ABG O2 Saturation (94-97) % Chloride 119 H (98-107) mmol/L BUN 31 H (7-17) mg/dL Glucose 165 H (74-99) mg/dL POC Glucose (mg/dL) 212 H 185 H (70-110) mg/dL Calcium 8.0 L (8.4-10.2) mg/dL Fluid Appearance (Clear) Fluid RBC (0-2000) /uL 12/20/23 12/20/23 12/20/23 Range/Units 00:53 02:14 02:58 Hgb (11.4-16.0) gm/dL Hct (34.0-46.0) % MCV (80.0-100.0) fL MCH (25.0-35.0) pg MCHC (31.0-37.0) g/dL RDW (11.5-15.5) % Lymphocytes # (1.0-4.8) k/uL ABG pO2 (83-108) mmHg ABG O2 Saturation (94-97) % Chloride (98-107) mmol/L BUN (7-17) mg/dL Glucose (74-99) mg/dL POC Glucose (mg/dL) 172 H 188 H 172 H (70-110) mg/dL Calcium (8.4-10.2) mg/dL Fluid Appearance (Clear) Fluid RBC (0-1999) /uL 12/20/23 12/20/23 12/20/23 Range/Units 04:00 04:00 04:03 Hgb 8.5 L (11.4-16.0) gm/dL Hct 30.4 L (34.0-46.0) % MCV 71.8 L (80.0-100.0) fL MCH 20.1 L (25.0-35.0) pg MCHC 27.9 L (31.0-37.0) g/dL RDW 20.6 H (11.5-15.5) % Lymphocytes # 0.3 L (1.0-4.8) k/uL ABG pO2 (83-108) mmHg ABG O2 Saturation (94-97) % Chloride 119 H (98-107) mmol/L BUN 32 H (7-17) mg/dL Glucose 145 H (74-99) mg/dL POC Glucose (mg/dL) 147 H (70-110) mg/dL Calcium 8.0 L (8.4-10.2) mg/dL Fluid Appearance (Clear) Fluid RBC (0-1999) /uL 12/20/23 12/20/23 12/20/23 Range/Units 04:57 05:06 05:37 Hgb (11.4-16.0) gm/dL Hct (34.0-46.0) % MCV (80.0-100.0) fL MCH (25.0-35.0) pg MCHC (31.0-37.0) g/dL RDW (11.5-15.5) % Lymphocytes # (1.0-4.8) k/uL ABG pO2 126 H (83-108) mmHg ABG O2 Saturation 98.6 H (94-97) % Chloride (98-107) mmol/L BUN (7-17) mg/dL Glucose (74-99) mg/dL POC Glucose (mg/dL) 141 H 152 H (70-110) mg/dL Calcium (8.4-10.2) mg/dL Fluid Appearance (Clear) Fluid RBC (0-2000) /uL 12/20/23 12/20/23 12/20/23 Range/Units 06:01 06:55 07:54 Hgb (11.4-16.0) gm/dL Hct (34.0-46.0) % MCV (80.0-100.0) fL MCH (25.0-35.0) pg MCHC (31.0-37.0) g/dL RDW (11.5-15.5) % Lymphocytes # (1.0-4.8) k/uL ABG pO2 (83-108) mmHg ABG O2 Saturation (94-97) % Chloride (98-107) mmol/L BUN (7-17) mg/dL Glucose (74-99) mg/dL POC Glucose (mg/dL) 146 H 160 H 150 H (70-110) mg/dL Calcium (8.4-10.2) mg/dL Fluid Appearance (Clear) Fluid RBC (0-2000) /uL Microbiology - Last 24 Hours (Table) 12/18/23 16:40 Acid Fast Bacilli Smear - Preliminary Bronchoalviolar Lavage - Right 12/17/23 08:34 Blood Culture - Preliminary Blood 12/18/23 16:40 Gram Stain - Preliminary Bronchoalviolar Lavage - Right 12/18/23 14:48 Gram Stain - Preliminary Sputum Assessment and Plan Plan: Acute hypoxic respiratory failure, currently intubated and mechanically ventilated, the patient developed an extensive right lower lobe pneumonia, currently covered broad-spectrum antibiotics. Oxygenation improved. The acid- base balance also improved based on the follow-up blood gas. Follow-up chest x- ray showing mainly CHF with cardiomegaly and increased interstitial markings bilaterally. Bronchoscopy and bronchial lavage was completed and the patient has no microbial growth thus far. Multifocal pneumonia with extensive consolidation and airspace disease involving the right middle/right lower lobe area. The right lower lobe consolidation is clearing and the patient's bronchoscopy endobronchial lavage has been completed and the results are still pending for now. Cultures are negative and the patient remains on a combination of Zosyn, Zithromax and vancomycin. History of exacerbation and the patient is less bronchospastic and wheezy. Auto PEEP today is at 2 and the patient remains on a combination of bronchodilators and steroids. Marijuana smoker Severe respiratory distress and dyspnea secondary to above in addition to vigorous cough. Currently intubated on mechanical ventilator. History of coronary artery disease, status post bypass surgery. History of COPD, from previous tobacco use. Chronic systolic heart failure with an ejection fraction of 30 to 35% along with moderate MR and mild to moderate pulm hypertension with a PA pressure of 32 Sinus tachycardia versus MAT, heart rate is under better control and the patient is currently in his normal sinus rhythm with occasional PVCs History of diabetes mellitus, with a component of steroid-induced hyperglycemia, the patient is currently on insulin drip at 5 units an hour History of hyperlipidemia. History of hypertension. History of fibromyalgia. History of obstructive sleep apnea syndrome. History of polysubstance abuse. SVT, single episode, treated with adenosine and the patient was also given Cardizem drip. Currently in a sinus tachycardia. Plan The patient was being given a sedation holiday today. This failed as the patient went into an SVT. The holiday was discontinued and the patient was given adenosine and later on Cardizem drip and currently the patient has some mild sinus tachycardia. She has converted back into normal sinus rhythm. As such, no further sedation holiday will be done for today. Continue ventilator support and drop the respiratory rate down to 20 Change IV fluids to KVO And the patient is also on Lasix 40 mg IV push x 1 Awaiting the results of the bronchial lavage, the results are still negative Continue Zithromax and add Zosyn and vancomycin Will continue bronchodilators Continue Perforomist and Pulmicort updrafts twice a day Continue IV Solu-Medrol Insulin drip for blood sugar control, currently running at 5 units an hour Continue vital high-protein for enteral feeding and nutritional support Lovenox 40 mg subcu for DVT prophylaxis Will continue to follow. Condition is critical and will continue to follow and make further recommendations based on her progress. Evaluation was done more than 30 minutes. This is a critically ill patient. A sedation holiday failed as the patient developed an SVT This critical care evaluation was done more than 30 minutes. Time with Patient: Greater than 30
[2023-12-20 16:58] LABS: Glucose,Whole Blood 150 mg/dL (70-110)
[2023-12-20 19:01] LABS: Glucose,Whole Blood 156 mg/dL (70-110)
[2023-12-20 19:25] LABS: Potassium 3.8 mmol/L (3.5-5.1)
[2023-12-20 21:05] LABS: Glucose,Whole Blood 154 mg/dL (70-110)
[2023-12-20] MEDS: POTASSIUM CHLORIDE 10 MEQ in WATER FOR INJECTION 1 100ML.BAG IVPB SCH (22:10)
[2023-12-20 23:06] LABS: Glucose,Whole Blood 166 mg/dL (70-110)
[2023-12-21 01:12] LABS: Glucose,Whole Blood 186 mg/dL (70-110)
[2023-12-21 02:06] LABS: Glucose,Whole Blood 189 mg/dL (70-110)
[2023-12-21 03:06] LABS: Glucose,Whole Blood 186 mg/dL (70-110)
[2023-12-21 03:59] LABS: Anisocytosis Moderate; Basophils % (A) 0 %; Eosinophils % (A) 1 %; HCT 30.4 % (34.0-46.0); HGB 8.5 gm/dL (11.4-16.0); Hypochromasia Marked; Lymphocytes # (A) 0.2 k/uL (1.0-4.8); Lymphocytes % (A) 5 %; MCH 20.4 pg (25.0-35.0); MCV 72.7 fL (80.0-100.0); Mean Platelet Volume 8.6; Microcytosis Marked; Monocytes # (A) 0.1 k/uL (0-1.0); Monocytes % (A) 2 %; Neutrophils # (A) 4.6 k/uL (1.3-7.7); Neutrophils % (A) 92 %; Platelet Count 245 k/uL (150-450); RBC 4.17 m/uL (3.80-5.40); RDW 20.5 % (11.5-15.5); WBC 4.9 k/uL (3.8-10.6)
[2023-12-21 04:11] LABS: Glucose,Whole Blood 203 mg/dL (70-110)
[2023-12-21 04:11] LABS: African American GFR (CKD) 65 (>60 ml/min/1.73 sqM); Anion Gap 3 mmol/L; Blood Urea Nitrogen 43 mg/dL (7-17); Carbon Dioxide 23 mmol/L (22-30); Chloride 119 mmol/L (98-107); Glucose 196 mg/dL (74-99); Non-African American GFR(CKD) 56 (>60 ml/min/1.73 sqM); Potassium 3.8 mmol/L (3.5-5.1); Sodium 145 mmol/L (137-145)
[2023-12-21] MEDS: POTASSIUM CHLORIDE 10 MEQ in WATER FOR INJECTION 1 100ML.BAG IVPB SCH (04:38)
[2023-12-21 05:59] LABS: Glucose,Whole Blood 167 mg/dL (70-110)
[2023-12-21 06:30] LABS: ABG Base Excess -0.7 mmol/L; ABG HCO3 24 mmol/L (21-25); ABG Oxygen Saturation 97.5 % (94-97); ABG PCO2 39 mmHg (35-45); ABG PO2 94 mmHg (83-108); ABG TCO2 25 mmol/L (19-24); Allen Test Performed? Yes
[2023-12-21 06:57] LABS: Glucose,Whole Blood 180 mg/dL (70-110)
--- NOTE | 2023-12-21 07:35 | XR ---
EXAMINATION TYPE: XR chest 1V portable DATE OF EXAM: 12/21/2023 COMPARISON: 12/20/2023 INDICATION: Tube placement TECHNIQUE: Single frontal view of the chest is obtained. FINDINGS: The heart size is enlarged. The pulmonary vasculature is normal. Mild right lower lobe infiltrate is present. Retrocardiac infiltrate present. Small pleural effusions may be present Endotracheal tube tip is above the nahun. Nasogastric tube transverses the thorax without the tip in the left upper quadrant of the abdomen. IMPRESSION: 1. Bibasilar infiltrates. Minimal pleural effusions may be present. 2. Cardiomegaly. 3. Lines and catheters discussed above.
--- NOTE | 2023-12-21 07:36 | P.PN ---
Subjective Progress Note Date: 12/21/23 Principal diagnosis: Shortness of breath The patient is a 73-year-old female patient with extensive cardiac history consistent of coronary artery disease with a prior revascularization with CABG and stenting with the last heart catheterization was performed in September 2023 and no need for revascularization advised at that point as well as cardiomyopathy with an ejection fraction between 30-35% as well as valvular heart disease with moderate mitral regurgitation. The patient presented to the hospital with shortness of breath associated with extensive cough and congestion. Initially she was admitted to the third floor but because she continues to have extensive cough associated with respiratory distress she was transferred to the intensive care unit and subsequently she was intubated and placed on mechanical ventilation. 12/19/2023 The patient was seen this morning. She is hemodynamically stable beside soft blood pressure. Currently she is not on vasopressors and she was weaned from vasopressors earlier today. Beside that she has been maintaining normal sinus mechanism. The possible diagnosis is pneumonia/sepsis and blood culture was sent. She doesn't seems in overt congestive heart failure overall. We'll follow-up with a chest x-ray from this morning. She was given one dose of Lasix last night. The last echo from September showed an EF between 30-35%. The examination is remarkable for regular rhythm with distant heart sounds and diminished breathing sounds bilaterally and no edema was noted. 12/20/2023 The patient was seen and evaluated this morning. She continues to be intubated on mechanical ventilation but hemodynamically stable with a soft blood pressure and mean pressure above 65 mmHg. She underwent bronchoscopy yesterday. The est x-ray showed right lower lobe infiltrate/pneumonia. She is on antibiotic. She has been maintaining normal sinus mechanism with ventricular bigeminy but her electrolytes including potassium was on the low side and that has been replaced. From a cardiac arrest or standpoint of view, would continue the current medical regimen and continue following up with the patient. The examination is remarkable for regular rhythm with diminished breathing sounds bilaterally October 20, 2024 The patient was seen and evaluated this morning. Hemodynamically she is stable with marginal pressure. Upon extubation yesterday she went into a wide-complex rhythm seems to be consistent with ventricular tachycardia, sustained versus nonsustained. She was given adenosine. She was started on Cardizem IV. Currently she is an sinus mechanism. Because her pressure is marginal and going to stop the Cardizem and start the patient on metoprolol tartrate 12.5 mg p.o. twice daily. Her potassium was marginal and that was replaced. Will check her magnesium. Her ejection fraction is low at 35%. If she has that rhythm again she might benefit from amiodarone bolus and drip. Meanwhile she was given Lasix yesterday. The chest x-ray today appears to be better. Assessment Acute respiratory distress Acute respiratory failure Pneumonia Coronary artery disease Cardiomyopathy Cardiac arrhythmia Valvular heart disease Plan DC Cardizem Start the patient on beta-marcos with metoprolol Consider adding amiodarone if she has any more arrhythmia Maintain normal potassium and magnesium Follow-up with the patient Objective - Vital Signs Vital signs: Vital Signs Temp 99.4 F 12/21/23 04:00 Pulse 86 12/21/23 07:00 Resp 15 12/21/23 07:00 BP 98/69 12/21/23 07:00 Pulse Ox 96 12/21/23 07:00 FiO2 30 12/21/23 04:27 Intake & Output 12/20/23 12/21/23 12/21/23 18:59 06:59 18:59 Intake Total 7937.625 2695.475 82 Output Total 1680 540 50 Balance -505.402 6826.475 32 Intake: IV 252 1550 50 .9 @ 50 550 50 Piperacillin-Tazobactam 3 100 .375 gm In Sodium Chloride 0.9% 100 ml @ 25 mls/hr IVPB Q8HR [facility] Rx# :[id number] Potassium Chloride 10 meq 400 In Water For Injection 1 100ml.bag @ 100 mls/hr IVPB Q1H [facility] Rx#: [id number] Sodium Chloride 0.9% 1, 252 000 ml @ 20 mls/hr IV . Q24H [facility] Rx#:[id number] Vancomycin 1,750 mg In 500 Sodium Chloride 0.9% 500 ml 500 ml @ 167 mls/hr IVPB HS [facility] Rx#:[id number] Intake, IV Titration 363.698 387.475 Amount Diltiazem 125 mg In 26.666 60.583 Sodium Chloride 0.9% 100 ml @ Per Protocol IV .Q0M [facility] Rx#:[id number] Insulin Regular 100 unit 47.873 94.463 In Sodium Chloride 0.9% 100 ml @ Titrate IV .Q0M [facility] Rx#:[id number] Norepinephrine 4 mg In 5.652 Sodium Chloride 0.9% 250 ml @ 0.03 MCG/KG/MIN 9. 332 mls/hr IV .Q24H [facility] Rx#:[id number] Piperacillin-Tazobactam 3 100 .375 gm In Sodium Chloride 0.9% 100 ml @ 25 mls/hr IVPB Q8HR [facility] Rx# :[id number] propofoL 1,000 mg In 189.159 226.777 Empty Bag 1 bag @ 15 MCG/ KG/MIN 7.348 mls/hr IV . [id number] [facility] Rx#:[id number] Tube Feeding 384 352 32 Other 90 90 Output: Urine 1680 540 50 Other: Voiding Method Indwelling Catheter Indwelling Catheter ABP, PAP, CO, CI - Last Documented Arterial Blood Pressure 101/60 - Labs CBC & Chem 7: 12/21/23 03:45 12/21/23 03:45 Labs: Abnormal Lab Results - Last 24 Hours (Table) 12/20/23 12/20/23 12/20/23 Range/Units 04:00 07:54 09:10 Hgb (11.4-16.0) gm/dL Hct (34.0-46.0) % MCV (80.0-100.0) fL MCH (25.0-35.0) pg MCHC (31.0-37.0) g/dL RDW (11.5-15.5) % Lymphocytes # (1.0-4.8) k/uL ABG Total CO2 (19-24) mmol/L ABG O2 Saturation (94-97) % Sodium (137-145) mmol/L Chloride (98-107) mmol/L BUN (7-17) mg/dL Glucose (74-99) mg/dL POC Glucose (mg/dL) 150 H 153 H (70-110) mg/dL Calcium (8.4-10.2) mg/dL AST 222 H (14-36) U/L ALT 390 H (4-34) U/L 12/20/23 12/20/23 12/20/23 Range/Units 09:59 10:59 13:32 Hgb (11.4-16.0) gm/dL Hct (34.0-46.0) % MCV (80.0-100.0) fL MCH (25.0-35.0) pg MCHC (31.0-37.0) g/dL RDW (11.5-15.5) % Lymphocytes # (1.0-4.8) k/uL ABG Total CO2 (19-24) mmol/L ABG O2 Saturation (94-97) % Sodium (137-145) mmol/L Chloride (98-107) mmol/L BUN (7-17) mg/dL Glucose (74-99) mg/dL POC Glucose (mg/dL) 159 H 159 H 196 H (70-110) mg/dL Calcium (8.4-10.2) mg/dL AST (14-36) U/L ALT (4-34) U/L 12/20/23 12/20/23 12/20/23 Range/Units 14:59 16:56 18:55 Hgb (11.4-16.0) gm/dL Hct (34.0-46.0) % MCV (80.0-100.0) fL MCH (25.0-35.0) pg MCHC (31.0-37.0) g/dL RDW (11.5-15.5) % Lymphocytes # (1.0-4.8) k/uL ABG Total CO2 (19-24) mmol/L ABG O2 Saturation (94-97) % Sodium (137-145) mmol/L Chloride (98-107) mmol/L BUN (7-17) mg/dL Glucose (74-99) mg/dL POC Glucose (mg/dL) 176 H 150 H 156 H (70-110) mg/dL Calcium (8.4-10.2) mg/dL AST (14-36) U/L ALT (4-34) U/L 12/20/23 12/20/23 12/20/23 Range/Units 19:00 21:04 23:05 Hgb (11.4-16.0) gm/dL Hct (34.0-46.0) % MCV (80.0-100.0) fL MCH (25.0-35.0) pg MCHC (31.0-37.0) g/dL RDW (11.5-15.5) % Lymphocytes # (1.0-4.8) k/uL ABG Total CO2 (19-24) mmol/L ABG O2 Saturation (94-97) % Sodium 146 H (137-145) mmol/L Chloride 118 H (98-107) mmol/L BUN (7-17) mg/dL Glucose (74-99) mg/dL POC Glucose (mg/dL) 154 H 166 H (70-110) mg/dL Calcium (8.4-10.2) mg/dL AST (14-36) U/L ALT (4-34) U/L 12/21/23 12/21/23 12/21/23 Range/Units 01:11 02:05 03:04 Hgb (11.4-16.0) gm/dL Hct (34.0-46.0) % MCV (80.0-100.0) fL MCH (25.0-35.0) pg MCHC (31.0-37.0) g/dL RDW (11.5-15.5) % Lymphocytes # (1.0-4.8) k/uL ABG Total CO2 (19-24) mmol/L ABG O2 Saturation (94-97) % Sodium (137-145) mmol/L Chloride (98-107) mmol/L BUN (7-17) mg/dL Glucose (74-99) mg/dL POC Glucose (mg/dL) 186 H 189 H 186 H (70-110) mg/dL Calcium (8.4-10.2) mg/dL AST (14-36) U/L ALT (4-34) U/L 12/21/23 12/21/23 12/21/23 Range/Units 03:45 03:45 04:10 Hgb 8.5 L (11.4-16.0) gm/dL Hct 30.4 L (34.0-46.0) % MCV 72.7 L (80.0-100.0) fL MCH 20.4 L (25.0-35.0) pg MCHC 28.0 L (31.0-37.0) g/dL RDW 20.5 H (11.5-15.5) % Lymphocytes # 0.2 L (1.0-4.8) k/uL ABG Total CO2 (19-24) mmol/L ABG O2 Saturation (94-97) % Sodium (137-145) mmol/L Chloride 119 H (98-107) mmol/L BUN 43 H (7-17) mg/dL Glucose 196 H (74-99) mg/dL POC Glucose (mg/dL) 203 H (70-110) mg/dL Calcium 8.0 L (8.4-10.2) mg/dL AST (14-36) U/L ALT (4-34) U/L 12/21/23 12/21/23 12/21/23 Range/Units 05:58 06:26 06:55 Hgb (11.4-16.0) gm/dL Hct (34.0-46.0) % MCV (80.0-100.0) fL MCH (25.0-35.0) pg MCHC (31.0-37.0) g/dL RDW (11.5-15.5) % Lymphocytes # (1.0-4.8) k/uL ABG Total CO2 25 H (19-24) mmol/L ABG O2 Saturation 97.5 H (94-97) % Sodium (137-145) mmol/L Chloride (98-107) mmol/L BUN (7-17) mg/dL Glucose (74-99) mg/dL POC Glucose (mg/dL) 167 H 180 H (70-110) mg/dL Calcium (8.4-10.2) mg/dL AST (14-36) U/L ALT (4-34) U/L Microbiology - Last 24 Hours (Table) 12/17/23 08:34 Blood Culture - Preliminary Blood 12/18/23 16:40 Acid Fast Bacilli Smear - Preliminary Bronchoalviolar Lavage - Right 12/18/23 14:48 Gram Stain - Final Sputum Sputum Culture - Final
[2023-12-21 08:15] LABS: Glucose,Whole Blood 206 mg/dL (70-110)
[2023-12-21] MEDS: PANTOPRAZOLE 40 MG/10 ML VIAL IVP SCH (09:34)
[2023-12-21] MEDS: FUROSEMIDE 10 MG/ML 4 ML VIAL IV SCH (09:34)
[2023-12-21] MEDS: METOPROLOL TARTRATE 12.5 MG TAB PO SCH (09:34)
[2023-12-21 09:55] LABS: Glucose,Whole Blood 190 mg/dL (70-110)
[2023-12-21 11:04] LABS: Glucose,Whole Blood 192 mg/dL (70-110)
[2023-12-21 11:14] LABS: Glucose,Whole Blood 189 mg/dL (70-110)
--- NOTE | 2023-12-21 11:51 | P.PN ---
Subjective Progress Note Date: 12/21/23 Mari Moore, is a 73 year old female who presented to [facility] with a chief complaint of worsening shortness of breath. Patient reports she's had a nonproductive cough and generalized weakness and upper respiratory symptoms over the past few days. Patient has an extensive medical history including asthma, heart failure, COPD, coronary artery disease with previous history of CABG, diabetes mellitus, fibromyalgia, sleep apnea, ex- smoker and current marijuana user. Chest x-ray completed in ER showing no acute pulmonary infiltrate. Current vital signs showing temperature 97.6, heart rate 97, respiratory 18, blood pressure 98/49 with a pulse ox of 96% on room air patient testing negative for influenza RSV and COVID-19. UA negative. Troponins negative 2. BNP elevated at 2130. White blood cell within normal limits hemoglobin 8.9 at this time primary service is consulted. Will consult cardiology services in order 2-D echo. Iron studies ordered for anemia patient started on IV Solu-Medrol DuoNeb breathing treatments. At this time pulmonary and cardiology services consulted. Continue azithromycin for upper respiratory infection. Iron studies for low hemoglobin. On 12/18/2023 patient was seen and examined in the ICU her condition has worsened this morning, she was having severe continuous cough and shortness of breath, she had decrease in her O2 sat duration, she was transferred to intensive care unit, chest x-ray revealed significant worsening since x-ray done on 12/16/2023 with large right middle lobe and right lower lobe infiltrates, possibly related to aspiration. At this time patient is intubated, sedated started on mechanical ventilation, IV Zosyn was added to her medication regimen, pulmonary critical care following. On 12/19/2023 patient remains in the ICU on mechanical ventilation FiO2 40%. Patient remains on IV sedation. Levophed has been DC'd. Patient remains on IV steroids and IV antibiotics. Pulmonary and cardiology services following. ABGs this a.m. pH 7.36, pCO2 40, pO2 189, HCO3 23 and total CO2 24. On 12/20/2023 patient remains in the ICU on mechanical ventilation FiO2 30%. Liver enzymes trending down AST 222 ALT 390. ABGs this a.m. pH 7.40, pCO2 38, pO2 126 sodium bicarb 24. Patient remains on IV Zosyn and IV vancomycin. Patient d[place]otah on IV steroids. On 12/21/2023 patient was seen and examined in the ICU she is intubated sedated maintained on mechanical ventilation, vital exam of this morning reveals a temp erature of 99.4 heart rate 87 respiration 27 blood pressure 100/68 pulse ox 95% on FiO2 of 30% Arterial blood gas reveals pH 7.4 pCO2 39 CO2 94 liver enzymes remain elevated with ALT at 319 and AST at 222 patient is maintained on IV antibiotics Zosyn she also remains on pressure support Objective - Vital Signs Vital signs: Vital Signs Temp 99.4 F 12/21/23 04:00 Pulse 86 12/21/23 07:00 Resp 15 12/21/23 07:00 BP 98/69 12/21/23 07:00 Pulse Ox 96 12/21/23 07:00 FiO2 30 12/21/23 04:27 Intake & Output 12/20/23 12/21/23 12/21/23 18:59 06:59 18:59 Intake Total 3459.147 9942.475 145.550 Output Total 1680 540 50 Balance -282.160 8275.475 95.550 Intake: IV 252 1550 50 .9 @ 50 550 50 Piperacillin-Tazobactam 3 100 .375 gm In Sodium Chloride 0.9% 100 ml @ 25 mls/hr IVPB Q8HR [facility] Rx# :[id number] Potassium Chloride 10 meq 400 In Water For Injection 1 100ml.bag @ 100 mls/hr IVPB Q1H [facility] Rx#: [id number] Sodium Chloride 0.9% 1, 252 000 ml @ 20 mls/hr IV . Q24H [facility] Rx#:[id number] Vancomycin 1,750 mg In 500 Sodium Chloride 0.9% 500 ml 500 ml @ 167 mls/hr IVPB HS [facility] Rx#:[id number] Intake, IV Titration 363.698 387.475 63.550 Amount Diltiazem 125 mg In 26.666 60.583 Sodium Chloride 0.9% 100 ml @ Per Protocol IV .Q0M [facility] Rx#:[id number] Insulin Regular 100 unit 47.873 94.463 6.11 In Sodium Chloride 0.9% 100 ml @ Titrate IV .Q0M [facility] Rx#:[id number] Norepinephrine 4 mg In 5.652 Sodium Chloride 0.9% 250 ml @ 0.03 MCG/KG/MIN 9. 332 mls/hr IV .Q24H [facility] Rx#:[id number] Piperacillin-Tazobactam 3 100 .375 gm In Sodium Chloride 0.9% 100 ml @ 25 mls/hr IVPB Q8HR [facility] Rx# :[id number] propofoL 1,000 mg In 189.159 226.777 57.440 Empty Bag 1 bag @ 15 MCG/ KG/MIN 7.348 mls/hr IV . [id number] [facility] Rx#:[id number] Tube Feeding 384 352 32 Other 90 90 Output: Urine 1680 540 50 Other: Voiding Method Indwelling Catheter Indwelling Catheter ABP, PAP, CO, CI - Last Documented Arterial Blood Pressure 101/60 - Exam In general patient is intubated sedated maintained on mechanical ventilation Head normocephalic and atraumatic Neck supple no JVD no goiter Lungs exam reveals coarse crackles bilaterally no wheezing Heart regular rate and rhythm S1-S2, no rub or gallop Abdomen is soft nontender nondistended positive bowel sounds no hepatosplen omegaly Extremities no edema Neuro no gross focal deficit - Labs CBC & Chem 7: 12/21/23 03:45 12/21/23 03:45 Labs: Abnormal Lab Results - Last 24 Hours (Table) 12/20/23 12/20/23 12/20/23 Range/Units 04:00 09:10 09:59 Hgb (11.4-16.0) gm/dL Hct (34.0-46.0) % MCV (80.0-100.0) fL MCH (25.0-35.0) pg MCHC (31.0-37.0) g/dL RDW (11.5-15.5) % Lymphocytes # (1.0-4.8) k/uL ABG Total CO2 (19-24) mmol/L ABG O2 Saturation (94-97) % Sodium (137-145) mmol/L Chloride (98-107) mmol/L BUN (7-17) mg/dL Glucose (74-99) mg/dL POC Glucose (mg/dL) 153 H 159 H (70-110) mg/dL Calcium (8.4-10.2) mg/dL AST 222 H (14-36) U/L ALT 390 H (4-34) U/L 12/20/23 12/20/23 12/20/23 Range/Units 10:59 13:32 14:59 Hgb (11.4-16.0) gm/dL Hct (34.0-46.0) % MCV (80.0-100.0) fL MCH (25.0-35.0) pg MCHC (31.0-37.0) g/dL RDW (11.5-15.5) % Lymphocytes # (1.0-4.8) k/uL ABG Total CO2 (19-24) mmol/L ABG O2 Saturation (94-97) % Sodium (137-145) mmol/L Chloride (98-107) mmol/L BUN (7-17) mg/dL Glucose (74-99) mg/dL POC Glucose (mg/dL) 159 H 196 H 176 H (70-110) mg/dL Calcium (8.4-10.2) mg/dL AST (14-36) U/L ALT (4-34) U/L 12/20/23 12/20/23 12/20/23 Range/Units 16:56 18:55 19:00 Hgb (11.4-16.0) gm/dL Hct (34.0-46.0) % MCV (80.0-100.0) fL MCH (25.0-35.0) pg MCHC (31.0-37.0) g/dL RDW (11.5-15.5) % Lymphocytes # (1.0-4.8) k/uL ABG Total CO2 (19-24) mmol/L ABG O2 Saturation (94-97) % Sodium 146 H (137-145) mmol/L Chloride 118 H (98-107) mmol/L BUN (7-17) mg/dL Glucose (74-99) mg/dL POC Glucose (mg/dL) 150 H 156 H (70-110) mg/dL Calcium (8.4-10.2) mg/dL AST (14-36) U/L ALT (4-34) U/L 12/20/23 12/20/23 12/21/23 Range/Units 21:04 23:05 01:11 Hgb (11.4-16.0) gm/dL Hct (34.0-46.0) % MCV (80.0-100.0) fL MCH (25.0-35.0) pg MCHC (31.0-37.0) g/dL RDW (11.5-15.5) % Lymphocytes # (1.0-4.8) k/uL ABG Total CO2 (19-24) mmol/L ABG O2 Saturation (94-97) % Sodium (137-145) mmol/L Chloride (98-107) mmol/L BUN (7-17) mg/dL Glucose (74-99) mg/dL POC Glucose (mg/dL) 154 H 166 H 186 H (70-110) mg/dL Calcium (8.4-10.2) mg/dL AST (14-36) U/L ALT (4-34) U/L 12/21/23 12/21/23 12/21/23 Range/Units 02:05 03:04 03:45 Hgb 8.5 L (11.4-16.0) gm/dL Hct 30.4 L (34.0-46.0) % MCV 72.7 L (80.0-100.0) fL MCH 20.4 L (25.0-35.0) pg MCHC 28.0 L (31.0-37.0) g/dL RDW 20.5 H (11.5-15.5) % Lymphocytes # 0.2 L (1.0-4.8) k/uL ABG Total CO2 (19-24) mmol/L ABG O2 Saturation (94-97) % Sodium (137-145) mmol/L Chloride (98-107) mmol/L BUN (7-17) mg/dL Glucose (74-99) mg/dL POC Glucose (mg/dL) 189 H 186 H (70-110) mg/dL Calcium (8.4-10.2) mg/dL AST (14-36) U/L ALT (4-34) U/L 12/21/23 12/21/23 12/21/23 Range/Units 03:45 04:10 05:58 Hgb (11.4-16.0) gm/dL Hct (34.0-46.0) % MCV (80.0-100.0) fL MCH (25.0-35.0) pg MCHC (31.0-37.0) g/dL RDW (11.5-15.5) % Lymphocytes # (1.0-4.8) k/uL ABG Total CO2 (19-24) mmol/L ABG O2 Saturation (94-97) % Sodium (137-145) mmol/L Chloride 119 H (98-107) mmol/L BUN 43 H (7-17) mg/dL Glucose 196 H (74-99) mg/dL POC Glucose (mg/dL) 203 H 167 H (70-110) mg/dL Calcium 8.0 L (8.4-10.2) mg/dL AST (14-36) U/L ALT (4-34) U/L 12/21/23 12/21/23 12/21/23 Range/Units 06:26 06:55 08:12 Hgb (11.4-16.0) gm/dL Hct (34.0-46.0) % MCV (80.0-100.0) fL MCH (25.0-35.0) pg MCHC (31.0-37.0) g/dL RDW (11.5-15.5) % Lymphocytes # (1.0-4.8) k/uL ABG Total CO2 25 H (19-24) mmol/L ABG O2 Saturation 97.5 H (94-97) % Sodium (137-145) mmol/L Chloride (98-107) mmol/L BUN (7-17) mg/dL Glucose (74-99) mg/dL POC Glucose (mg/dL) 180 H 206 H (70-110) mg/dL Calcium (8.4-10.2) mg/dL AST (14-36) U/L ALT (4-34) U/L Microbiology - Last 24 Hours (Table) 12/17/23 08:34 Blood Culture - Preliminary Blood 12/18/23 16:40 Acid Fast Bacilli Smear - Preliminary Bronchoalviolar Lavage - Right 12/18/23 14:48 Gram Stain - Final Sputum Sputum Culture - Final Assessment and Plan Assessment: 1. Acute exacerbation of COPD. 2. Acute on chronic exacerbation of systolic CHF 3. Anemia. Iron studies ordered 4. Cardiomyopathy with an EF of 30-35% 5. History of non-STEMI September 2023 status post cardiac cath showing 80% stenosis of the stent patent 6. History of coronary artery disease disease status post CABG 7. History of diabetes mellitus type II 8. History of essential hypertension 9. History of hyperlipidemia. 10. Acute hypoxic respiratory failure requiring intubation and mechanical ventilation on 12/18/2023 11. Right middle lobe and right lower lobe infiltrates, suggestive of pneumonia, possible aspiration. DVT prophylaxis Lovenox. GI prophylaxis Protonix Cardiology and pulmonary service is consulted. Patient started on IV Solu-Medrol Repeat labs ordered iron studies ordered
[2023-12-21 12:27] LABS: Glucose,Whole Blood 178 mg/dL (70-110)
[2023-12-21 13:13] LABS: Glucose,Whole Blood 157 mg/dL (70-110)
--- NOTE | 2023-12-21 13:58 | P.PN ---
Subjective Progress Note Date: 12/21/23 On 12/18/2023, the patient is being seen in follow-up on the medical floor. The patient was found to be in significant degree of respiratory distress and the patient was using some accessory muscles of breathing. She was having frequent coughing episode and she was unable to catch her breath in between those coughing episodes. She was still responsive and communicating. At that point, I made recommendations to transfer this patient to the intensive care unit for further monitoring. Within 20 minutes, the patient became more diaphoretic, lethargic, quite obtunded and at that point, the patient had to be intubated and placed on the mechanical ventilator. I personally intubated the patient in the intensive care unit. I have her on a tidal volume of 350, rate of 24 with an FiO2 of 100% with a PEEP of 5. Postintubation chest x-ray showed extensive consolidation of the right lung and there is new airspace disease throughout the right lung along with some areas of consolidations and interstitial changes. Post NG tube insertion, the patient's stomach was decompressed and there was total amount of 500 cc of gastric material aspirated from the stomach. No reported aspiration. Obviously, the patient has multifocal pneumonia at this point in time more extensive in the right lung especially in the right middle and right lower lobe area. The white cell count at 7.1 with a hemoglobin 8.8, BUN is at 15 with a creatinine of 0.5 and sodium levels at 137. Potassium level is at 4.2. The patient was started on propofol for sedation. She was given also a dose of Nimbex during the intubation process 10 mg IV x 1. Blood gas are still pending. She may need a bronchoscopy and right lower lobe bronchoalveolar lavage. She remains on bronchodilators. She remains on steroids. Antibiotics will be modified and Zosyn will be added in combination with Zithromax. She has not required any pressors yet. She will be given a bolus of 1 L and following that she will be started on a maintenance of 100 cc an hour. Condition is obviously is critical at this point in time. Echocardiogram that was obtained on 10/19/2023 showed systolic heart failure with an underlying left ventricular ejection fraction of 30 to 35%. The patient also had mild RV dilatation, mild aortic regurgitation, mild to moderate mitral Regurgitation with a right ventricular systolic pressure of 32. He also has moderate degree of pulm hypertension. On today's evaluation of 12/19/2023, the patient is intubated on the mechanical ventilator. Overnight, the patient was kept intubated and the patient is sedated adequately with propofol which is running at 35 mcg/kg/min. As mentioned, the patient developed an extensive right lung pneumonia with respiratory failure requiring intubation mechanical ventilation. She currently has a #7.5 orotracheal tube. She is on assist-control mode of mechanical ventilation at a rate of 30, tidal volume of 350, FiO2 of 40% and a PEEP of 5. The peak airway pressure is around 25. The chest x-ray from today showing bilateral pleural effusion and significant consolidation of the right lung base and there is also some limited infiltration of the left lung base. I performed a bronchoscopy on this patient yesterday endobronchial lavage of the right lower lobe was obtained. The results are still pending for now. Meanwhile, the patient was covered with broad-spectrum antibiotic coverage and she is currently on a combination of Zosyn, Zithromax and vancomycin. The peak airway pressure is ranging between 21 and 23. The blood gas shows improvement in the pH is currently up to 7.36 with a pCO2 of 40 and pO2 of 189. Note that the patient was also given 2 doses of bicarb yesterday as the patient was quite acidotic. Rest of the blood work from today shows a WBC count of 9.9, hemoglobin of 9.1 and a platelet count of 288. Sodium is at 143,. Potassium level is at 3.8, BUN is at 25 with a creatinine of 0.9. LFTs are elevated with an AST of 525 and ALT of 448 and a bilirubin of 0.8. Her urine drug screen is positive for cannabis and the patient admits to smoke marijuana on a daily basis approximately 2 joints a day. She is on DuoNeb nebulized treatments [id number]. She is also on a combination of Perforomist and Pulmicort updrafts. She remains on IV Solu-Medrol. She is also on Lovenox 40 mg subcu for DVT prophylaxis. Feeding has not been started yet. Echocardiogram that was done on 10/19/2023 showed impaired LV function with an ejection fraction of 30 to 35%. We have not encountered any hypotension on this patient. She was quite tachycardic yesterday and she was placed briefly on norepinephrine yesterday for some limited hypotension and this ultimately improved and her current mean arterial pressure is around 74. She is on insulin drip running at 3 units an hour. Blood sugars under better control for now. On 12/20/2023, the patient remains intubated on the mechanical ventilator. Note that the patient is also sedated with a combination of fentanyl and propofol. The propofol is running at 35 mcg/kg/min and the patient is also on fentanyl 0.5 mcg/kg/h. Adequately sedated and the patient is synchronous with mechanical yoel tilator. She is currently at a rate of 30, tidal volume of 350, FiO2 is down to 30% with a PEEP of 5. The follow-up chest x-ray showsNo significant consolidation. There is improved in the right lower lobe consolidation. There is also cardiomegaly and CHF with interstitial edema and small bilateral pleural effusion. ET tube remains in a good location. As for the blood gas, the patient has a pH of 7.4 with a pCO2 of 38 and pO2 of 126 and this was on FiO2 of 40%. No significant orotracheal secretions. Bronchoscopy endobronchial done but results are still pending for now and there is no significant microbial growth. The blood cultures been negative. On blood work, the patient's white c ell count is 5.9 with a hemoglobin of 8.5 and a platelet count of 236. Sodium is 145, potassium is at 4, BUN is at 33 with a creatinine of 0.9. Viral screen has been negative. Legionella urine antigen has been negative. The patient is also receiving enteral feeding for nutritional support. The patient is currently on vital high-protein at the rate of 30 cc an hour and the patient is also on insulin drip at 5 units an hour. Overall fluid balance is +1.5 L over the past 24 hours. On 12/21/2023, the patient is being seen for a follow-up. The patient remains intubated and mechanically ventilated. She is calm and comfortable on a combination of propofol and fentanyl. Propofol is running at 35 mcg/kg/min and fentanyl is running at 0.5 mcg/kg/h. The patient remains intubated on adding machine mechanic al ventilator. This morning, she is on assist-control of 20, tidal volume of 350, FiO2 of 30% with a PEEP of 5. She is calm and comfortable and synchronous with mechanical ventilator. Chest x-ray showing cardiomegaly and pulm vascular congestion at the bronchoscopy endobronchial lavage that was done earlier yielded no microbial growth thus far. Based on that, I am going to discontinue the vancomycin and keep the patient on a combination of Zosyn and Zithromax. Otherwise, the fluid balance is positive and the patient will be started on more aggressive diuresis. The patient remains on vital high-protein at the rate of 32 cc an hour. The chest x-ray from today is consistent with CHF Along with some lower lobe consolidation bilaterally and the possibility of pneumonia cannot be completely excluded. The white cell count is 4.5, hemoglobin is 8.5 and a platelet count is at 245. Sodium is at 145 with a potassium level of 3.8, BUN is 43 with a creatinine of 1.0. LFTs are essentially improving and the AST is down to 222 and the ALT is down to 3019. Cultures are negative. Antibiotics are mentioned and they will include a combination of Zosyn Zithromax and vancomycin will be discontinued. Noted the patient was given a sedation holiday yesterday and during the process the patient had a an episode of SVT. The patient was given adenosine and following that the patient was placed on Cardizem and currently she is off Cardizem and the cardiac rhythm is back into normal sinus rhythm. No other significant events overnight. No fever or chills. No hemodynamic instability. She is known to have cardiomyopathy with impaired LV function. The patient remains on insulin drip at 6 units an hour. Afebrile. Hemodynamically stable. No pressors. Objective - Vital Signs Vital signs: Vital Signs Temp 99.4 F 12/21/23 04:00 Pulse 86 12/21/23 07:00 Resp 15 12/21/23 07:00 BP 98/69 12/21/23 07:00 Pulse Ox 96 12/21/23 07:00 FiO2 30 12/21/23 04:27 Intake & Output 12/20/23 12/21/23 12/21/23 18:59 06:59 18:59 Intake Total 0790.586 4666.475 145.550 Output Total 1680 540 50 Balance -969.178 3058.475 95.550 Intake: IV 252 1550 50 .9 @ 50 550 50 Piperacillin-Tazobactam 3 100 .375 gm In Sodium Chloride 0.9% 100 ml @ 25 mls/hr IVPB Q8HR [facility] Rx# :[id number] Potassium Chloride 10 meq 400 In Water For Injection 1 100ml.bag @ 100 mls/hr IVPB Q1H [facility] Rx#: [id number] Sodium Chloride 0.9% 1, 252 000 ml @ 20 mls/hr IV . Q24H [facility] Rx#:[id number] Vancomycin 1,750 mg In 500 Sodium Chloride 0.9% 500 ml 500 ml @ 167 mls/hr IVPB HS [facility] Rx#:[id number] Intake, IV Titration 363.698 387.475 63.550 Amount Diltiazem 125 mg In 26.666 60.583 Sodium Chloride 0.9% 100 ml @ Per Protocol IV .Q0M [facility] Rx#:[id number] Insulin Regular 100 unit 47.873 94.463 6.11 In Sodium Chloride 0.9% 100 ml @ Titrate IV .Q0M [facility] Rx#:[id number] Norepinephrine 4 mg In 5.652 Sodium Chloride 0.9% 250 ml @ 0.03 MCG/KG/MIN 9. 332 mls/hr IV .Q24H [facility] Rx#:[id number] Piperacillin-Tazobactam 3 100 .375 gm In Sodium Chloride 0.9% 100 ml @ 25 mls/hr IVPB Q8HR [facility] Rx# :[id number] propofoL 1,000 mg In 189.159 226.777 57.440 Empty Bag 1 bag @ 15 MCG/ KG/MIN 7.348 mls/hr IV . [id number] [facility] Rx#:[id number] Tube Feeding 384 352 32 Other 90 90 Output: Urine 1680 540 50 Other: Voiding Method Indwelling Catheter Indwelling Catheter ABP, PAP, CO, CI - Last Documented Arterial Blood Pressure 101/60 - Exam Sedated on propofol and, comfortable, intubated on mechanical ventilator. Orogastric and orotracheal tube are both in place. Head exam was generally normal. There was no scleral icterus or corneal arcus. Mucous membranes were moist. Neck supple. Full range of motion. No adenopathy thyromegaly or neck vein distention. Cardiovascular examination reveals regular rhythm rate. S1-S2 normal. No S3 or S4. No discernible murmur noted. Heart sounds are distant. Patient is tachycardic although the rhythm strip is showing some sinus rhythm Lungs reveal coarse bilateral inspiratory and expiratory rhonchi. No crackles. Marked diminished breath sounds along with diffuse expiratory wheezes throughout the lung powers bilaterally. Abdomen soft bowel sounds are heard. No masses or tenderness. Extremities are intact. No cyanosis or clubbing. The patient does have a +1 edema lower extremities bilaterally Skin is without rash or lesion. Neurologic examination, the patient is currently sedated and the patient was withdrawing to painful stimulation moving all 4 extremities prior to intubation. Pupils are equal reactive to light. - Labs CBC & Chem 7: 12/21/23 03:45 12/21/23 03:45 Labs: Abnormal Lab Results - Last 24 Hours (Table) 12/20/23 12/20/23 12/20/23 Range/Units 04:00 09:10 09:59 Hgb (11.4-16.0) gm/dL Hct (34.0-46.0) % MCV (80.0-100.0) fL MCH (25.0-35.0) pg MCHC (31.0-37.0) g/dL RDW (11.5-15.5) % Lymphocytes # (1.0-4.8) k/uL ABG Total CO2 (19-24) mmol/L ABG O2 Saturation (94-97) % Sodium (137-145) mmol/L Chloride (98-107) mmol/L BUN (7-17) mg/dL Glucose (74-99) mg/dL POC Glucose (mg/dL) 153 H 159 H (70-110) mg/dL Calcium (8.4-10.2) mg/dL AST 222 H (14-36) U/L ALT 390 H (4-34) U/L 12/20/23 12/20/23 12/20/23 Range/Units 10:59 13:32 14:59 Hgb (11.4-16.0) gm/dL Hct (34.0-46.0) % MCV (80.0-100.0) fL MCH (25.0-35.0) pg MCHC (31.0-37.0) g/dL RDW (11.5-15.5) % Lymphocytes # (1.0-4.8) k/uL ABG Total CO2 (19-24) mmol/L ABG O2 Saturation (94-97) % Sodium (137-145) mmol/L Chloride (98-107) mmol/L BUN (7-17) mg/dL Glucose (74-99) mg/dL POC Glucose (mg/dL) 159 H 196 H 176 H (70-110) mg/dL Calcium (8.4-10.2) mg/dL AST (14-36) U/L ALT (4-34) U/L 12/20/23 12/20/23 12/20/23 Range/Units 16:56 18:55 19:00 Hgb (11.4-16.0) gm/dL Hct (34.0-46.0) % MCV (80.0-100.0) fL MCH (25.0-35.0) pg MCHC (31.0-37.0) g/dL RDW (11.5-15.5) % Lymphocytes # (1.0-4.8) k/uL ABG Total CO2 (19-24) mmol/L ABG O2 Saturation (94-97) % Sodium 146 H (137-145) mmol/L Chloride 118 H (98-107) mmol/L BUN (7-17) mg/dL Glucose (74-99) mg/dL POC Glucose (mg/dL) 150 H 156 H (70-110) mg/dL Calcium (8.4-10.2) mg/dL AST (14-36) U/L ALT (4-34) U/L 12/20/23 12/20/23 12/21/23 Range/Units 21:04 23:05 01:11 Hgb (11.4-16.0) gm/dL Hct (34.0-46.0) % MCV (80.0-100.0) fL MCH (25.0-35.0) pg MCHC (31.0-37.0) g/dL RDW (11.5-15.5) % Lymphocytes # (1.0-4.8) k/uL ABG Total CO2 (19-24) mmol/L ABG O2 Saturation (94-97) % Sodium (137-145) mmol/L Chloride (98-107) mmol/L BUN (7-17) mg/dL Glucose (74-99) mg/dL POC Glucose (mg/dL) 154 H 166 H 186 H (70-110) mg/dL Calcium (8.4-10.2) mg/dL AST (14-36) U/L ALT (4-34) U/L 12/21/23 12/21/23 12/21/23 Range/Units 02:05 03:04 03:45 Hgb 8.5 L (11.4-16.0) gm/dL Hct 30.4 L (34.0-46.0) % MCV 72.7 L (80.0-100.0) fL MCH 20.4 L (25.0-35.0) pg MCHC 28.0 L (31.0-37.0) g/dL RDW 20.5 H (11.5-15.5) % Lymphocytes # 0.2 L (1.0-4.8) k/uL ABG Total CO2 (19-24) mmol/L ABG O2 Saturation (94-97) % Sodium (137-145) mmol/L Chloride (98-107) mmol/L BUN (7-17) mg/dL Glucose (74-99) mg/dL POC Glucose (mg/dL) 189 H 186 H (70-110) mg/dL Calcium (8.4-10.2) mg/dL AST (14-36) U/L ALT (4-34) U/L 12/21/23 12/21/23 12/21/23 Range/Units 03:45 04:10 05:58 Hgb (11.4-16.0) gm/dL Hct (34.0-46.0) % MCV (80.0-100.0) fL MCH (25.0-35.0) pg MCHC (31.0-37.0) g/dL RDW (11.5-15.5) % Lymphocytes # (1.0-4.8) k/uL ABG Total CO2 (19-24) mmol/L ABG O2 Saturation (94-97) % Sodium (137-145) mmol/L Chloride 119 H (98-107) mmol/L BUN 43 H (7-17) mg/dL Glucose 196 H (74-99) mg/dL POC Glucose (mg/dL) 203 H 167 H (70-110) mg/dL Calcium 8.0 L (8.4-10.2) mg/dL AST (14-36) U/L ALT (4-34) U/L 12/21/23 12/21/23 12/21/23 Range/Units 06:26 06:55 08:12 Hgb (11.4-16.0) gm/dL Hct (34.0-46.0) % MCV (80.0-100.0) fL MCH (25.0-35.0) pg MCHC (31.0-37.0) g/dL RDW (11.5-15.5) % Lymphocytes # (1.0-4.8) k/uL ABG Total CO2 25 H (19-24) mmol/L ABG O2 Saturation 97.5 H (94-97) % Sodium (137-145) mmol/L Chloride (98-107) mmol/L BUN (7-17) mg/dL Glucose (74-99) mg/dL POC Glucose (mg/dL) 180 H 206 H (70-110) mg/dL Calcium (8.4-10.2) mg/dL AST (14-36) U/L ALT (4-34) U/L Microbiology - Last 24 Hours (Table) 12/17/23 08:34 Blood Culture - Preliminary Blood 12/18/23 16:40 Acid Fast Bacilli Smear - Preliminary Bronchoalviolar Lavage - Right 12/18/23 14:48 Gram Stain - Final Sputum Sputum Culture - Final Assessment and Plan Plan: Acute hypoxic respiratory failure, currently intubated and mechanically ventilated, the patient developed an extensive right lower lobe pneumonia, currently covered broad-spectrum antibiotics. Subsequent chest x-ray was more consistent with CHF. As such, the patient's respiratory failure may be due to a combination of pneumonia and CHF. Bronchoscopy endobronchial lavage yielded no microbial growth. The patient will be started on more aggressive diuresis. Multifocal pneumonia with extensive consolidation and airspace disease involving the right middle/right lower lobe area. The right lower lobe consolidation is clearing and the patient's bronchoscopy endobronchial lavage has been completed and the results are still negative and the patient remains on a combination of Zosyn Zithromax and vancomycin. History of exacerbation and the patient showing some limited bronchospasm and wheezing on today's exam examination Marijuana smoker Severe respiratory distress and dyspnea secondary to above in addition to vigorous cough. Currently intubated on mechanical ventilator. History of coronary artery disease, status post bypass surgery. History of COPD, from previous tobacco use. Chronic systolic heart failure with an ejection fraction of 30 to 35% along with moderate MR and mild to moderate pulm hypertension with a PA pressure of 32 Sinus tachycardia versus MAT, heart rate is under better control and the patient is currently in his normal sinus rhythm with occasional PVCs History of diabetes mellitus, with a component of steroid-induced hyperglycemia, the patient is currently on insulin drip at 5 units an hour History of hyperlipidemia. History of hypertension. History of fibromyalgia. History of obstructive sleep apnea syndrome. History of polysubstance abuse. SVT, single episode, treated with adenosine and the patient was also given Cardizem drip. Currently in a sinus tachycardia. Plan The patient will be kept on a combination of propofol and fentanyl in and will gradually wean off the sedation. No need for sedation holiday today. Will start the patient on Lasix 40 mg IV every 8 hours Will change IV fluids to KVO Discontinue the vancomycin Awaiting the results of the bronchial lavage, the results are still negative Continue Zithromax and add Zosyn Will continue bronchodilators Continue Perforomist and Pulmicort updrafts twice a day Continue IV Solu-Medrol Insulin drip for blood sugar control, currently running at 6 units an hour Continue vital high-protein for enteral feeding and nutritional support Lovenox 40 mg subcu for DVT prophylaxis Will continue to follow. Condition is critical and will continue to follow and make further recommendations based on her progress. Evaluation was done more than 30 minutes. This is a critically ill patient. Will not offer sedation holiday today. Will stabilize the patient further and we will give her a sedation holiday tomorrow. This critical care evaluation was done more than 30 minutes. Time with Patient: Greater than 30
[2023-12-21 14:13] LABS: Glucose,Whole Blood 161 mg/dL (70-110)
[2023-12-21 15:17] LABS: Glucose,Whole Blood 149 mg/dL (70-110)
[2023-12-21 17:33] LABS: Glucose,Whole Blood 140 mg/dL (70-110)
[2023-12-21 18:56] LABS: Glucose,Whole Blood 127 mg/dL (70-110)
[2023-12-21] MEDS: POTASSIUM CHLORIDE 20 MEQ in WATER FOR INJECTION 1 100ML.BAG IVPB SCH (19:46)
[2023-12-21 19:59] LABS: Glucose,Whole Blood 192 mg/dL (70-110)
[2023-12-21] MEDS ORDERED: VANCOMYCIN TROUGH DUE 1 EACH MISC MISCELLANE ONE (20:00)
[2023-12-21] MEDS ORDERED: Magnesium Replacement Protocol 1 EACH MISC MISCELLANE PRN (20:21)
[2023-12-21] MEDS: MAGNESIUM SULFATE-D5W PMX 1 GM in DEXTROSE/WATER 1 100ML.BAG IVPB ONE (20:28)
[2023-12-21 21:56] LABS: Glucose,Whole Blood 225 mg/dL (70-110)
[2023-12-21 23:56] LABS: Glucose,Whole Blood 205 mg/dL (70-110)
[2023-12-22 02:08] LABS: Glucose,Whole Blood 202 mg/dL (70-110)
[2023-12-22 04:02] LABS: Glucose,Whole Blood 195 mg/dL (70-110)
[2023-12-22 04:14] LABS: Anisocytosis Moderate; Basophils % (A) 0 %; Eosinophils % (A) 0 %; HCT 32.3 % (34.0-46.0); HGB 9.2 gm/dL (11.4-16.0); Hypochromasia Marked; Lymphocytes # (A) 0.3 k/uL (1.0-4.8); Lymphocytes % (A) 6 %; MCH 20.4 pg (25.0-35.0); MCHC 28.5 g/dL (31.0-37.0); MCV 71.5 fL (80.0-100.0); Mean Platelet Volume 9.2; Microcytosis Marked; Monocytes # (A) 0.2 k/uL (0-1.0); Monocytes % (A) 3 %; Neutrophils # (A) 4.8 k/uL (1.3-7.7); Neutrophils % (A) 91 %; Platelet Count 213 k/uL (150-450); RBC 4.51 m/uL (3.80-5.40); RDW 20.5 % (11.5-15.5); WBC 5.3 k/uL (3.8-10.6)
[2023-12-22 04:35] LABS: ALT 319 U/L (4-34); AST 74 U/L (14-36); African American GFR (CKD) 66 (>60 ml/min/1.73 sqM); Albumin 2.9 g/dL (3.5-5.0); Alkaline Phosphatase 60 U/L (38-126); Anion Gap 4 mmol/L; Blood Urea Nitrogen 49 mg/dL (7-17); Calcium 8.3 mg/dL (8.4-10.2); Carbon Dioxide 31 mmol/L (22-30); Chloride 111 mmol/L (98-107); Glucose 169 mg/dL (74-99); Magnesium 2.1 mg/dL (1.6-2.3); Non-African American GFR(CKD) 57 (>60 ml/min/1.73 sqM); Potassium 3.3 mmol/L (3.5-5.1); Sodium 146 mmol/L (137-145); Total Bilirubin 0.4 mg/dL (0.2-1.3); Total Protein 5.3 g/dL (6.3-8.2)
[2023-12-22 05:05] LABS: Glucose,Whole Blood 170 mg/dL (70-110)
[2023-12-22] MEDS: POTASSIUM CHLORIDE 20 MEQ in WATER FOR INJECTION 1 100ML.BAG IVPB SCH (05:27)
[2023-12-22 05:58] LABS: ABG Base Excess 6.2 mmol/L; ABG HCO3 30 mmol/L (21-25); ABG PCO2 45 mmHg (35-45); ABG PH 7.44 (7.35-7.45); ABG PO2 99 mmHg (83-108); ABG TCO2 32 mmol/L (19-24); Allen Test Performed? Yes
[2023-12-22 06:01] LABS: Glucose,Whole Blood 170 mg/dL (70-110)
[2023-12-22 06:46] LABS: Glucose,Whole Blood 157 mg/dL (70-110)
--- NOTE | 2023-12-22 07:12 | P.PN ---
Subjective Progress Note Date: 12/22/23 Principal diagnosis: Shortness of breath The patient is a 73-year-old female patient with extensive cardiac history consistent of coronary artery disease with a prior revascularization with CABG and stenting with the last heart catheterization was performed in September 2023 and no need for revascularization advised at that point as well as cardiomyopathy with an ejection fraction between 30-35% as well as valvular heart disease with moderate mitral regurgitation. The patient presented to the hospital with shortness of breath associated with extensive cough and congestion. Initially she was admitted to the third floor but because she continues to have extensive cough associated with respiratory distress she was transferred to the intensive care unit and subsequently she was intubated and placed on mechanical ventilation. 12/19/2023 The patient was seen this morning. She is hemodynamically stable beside soft blood pressure. Currently she is not on vasopressors and she was weaned from vasopressors earlier today. Beside that she has been maintaining normal sinus mechanism. The possible diagnosis is pneumonia/sepsis and blood culture was sent. She doesn't seems in overt congestive heart failure overall. We'll follow-up with a chest x-ray from this morning. She was given one dose of Lasix last night. The last echo from September showed an EF between 30-35%. The examination is remarkable for regular rhythm with distant heart sounds and diminished breathing sounds bilaterally and no edema was noted. 12/20/2023 The patient was seen and evaluated this morning. She continues to be intubated on mechanical ventilation but hemodynamically stable with a soft blood pressure and mean pressure above 65 mmHg. She underwent bronchoscopy yesterday. The est x-ray showed right lower lobe infiltrate/pneumonia. She is on antibiotic. She has been maintaining normal sinus mechanism with ventricular bigeminy but her electrolytes including potassium was on the low side and that has been replaced. From a cardiac arrest or standpoint of view, would continue the current medical regimen and continue following up with the patient. The examination is remarkable for regular rhythm with diminished breathing sounds bilaterally January 19, 2024 The patient was seen and evaluated this morning. Hemodynamically she is stable with marginal pressure. Upon extubation yesterday she went into a wide-complex rhythm seems to be consistent with ventricular tachycardia, sustained versus nonsustained. She was given adenosine. She was started on Cardizem IV. Cu rrently she is an sinus mechanism. Because her pressure is marginal and going to stop the Cardizem and start the patient on metoprolol tartrate 12.5 mg p.o. twice daily. Her potassium was marginal and that was replaced. Will check her magnesium. Her ejection fraction is low at 35%. If she has that rhythm again she might benefit from amiodarone bolus and drip. Meanwhile she was given Lasix yesterday. The chest x-ray today appears to be better. December 22, 2023 The patient was seen and evaluated this morning. She continues to be intubated on mechanical ventilation but hemodynamically stable. Her potassium continues to be low. Currently she is on Lasix at 40 mg IV 3 times daily which ongoing to decrease to 40 mg IV twice daily and add Aldactone to the current medical regimen as a potassium sparing agent and she was on that medication for cardiomyopathy at home. Also she did have an episode of nonsustained ventricular tachycardia last night and with that being said I am going to i ncrease the dose of metoprolol. Consider adding lisinopril also to the current medical regimen for the cardiomyopathy down the line. Beside that her potassium was replaced. Magnesium was checked. The chest x-ray was reviewed. The blood work was reviewed as well. The examination showed stable vital signs with regular rhythm and distant heart sounds and diminished breathing sounds bilaterally. She has mild bilateral lower extremities edema Assessment Acute respiratory distress Acute respiratory failure Pneumonia Coronary artery disease Cardiomyopathy Cardiac arrhythmia Valvular heart disease Plan Increase the dose of metoprolol Add Aldactone to the current medical regimen Decrease the dose of Lasix IV Consider adding lisinopril down the line Follow-up with the pt Objective - Vital Signs Vital signs: Vital Signs Temp 99.4 F 12/22/23 04:00 Pulse 90 12/22/23 07:00 Resp 14 12/22/23 07:00 BP 119/73 12/22/23 07:00 Pulse Ox 98 12/22/23 07:00 FiO2 30 12/22/23 05:09 Intake & Output 12/21/23 12/22/23 12/22/23 18:59 06:59 18:59 Intake Total 941.981 6280.299 Output Total 4050 4775 Balance -3178.551 -768.701 Weight 89.1 kg 86.5 kg Intake: IV 70 860 .9 @ 50 70 .9 @ KVO 360 Magnesium Sulfate-D5w Pmx 100 1 gm In Dextrose/Water 1 100ml.bag @ 100 mls/hr IVPB ONCE ONE Rx#: [id number] Piperacillin-Tazobactam 3 100 .375 gm In Sodium Chloride 0.9% 100 ml @ 25 mls/hr IVPB Q8HR [facility] Rx# :[id number] Potassium Chloride 20 meq 300 In Water For Injection 1 100ml.bag @ 50 mls/hr IVPB Q2H [facility] Rx#: [id number] Intake, IV Titration 517.449 294.299 Amount Insulin Regular 100 unit 34.577 100.000 In Sodium Chloride 0.9% 100 ml @ Titrate IV .Q0M [facility] Rx#:[id number] Piperacillin-Tazobactam 3 100 .375 gm In Sodium Chloride 0.9% 100 ml @ 25 mls/hr IVPB Q8HR [facility] Rx# :[id number] Sodium Chloride 0.9% 1, 200 20 000 ml @ 20 mls/hr IV . Q24H [facility] Rx#:[id number] propofoL 1,000 mg In 182.872 174.299 Empty Bag 1 bag @ 15 MCG/ KG/MIN 7.348 mls/hr IV . [id number] [facility] Rx#:[id number] Tube Feeding 224 352 Other 60 90 Output: Urine 4050 2365 Other: Voiding Method Indwelling Catheter Indwelling Catheter ABP, PAP, CO, CI - Last Documented Arterial Blood Pressure 137/64 - Labs CBC & Chem 7: 12/22/23 03:55 12/22/23 03:55 Labs: Abnormal Lab Results - Last 24 Hours (Table) 12/21/23 12/21/23 12/21/23 Range/Units 08:12 09:53 11:03 Hgb (11.4-16.0) gm/dL Hct (34.0-46.0) % MCV (80.0-100.0) fL MCH (25.0-35.0) pg MCHC (31.0-37.0) g/dL RDW (11.5-15.5) % Lymphocytes # (1.0-4.8) k/uL ABG HCO3 (21-25) mmol/L ABG Total CO2 (19-24) mmol/L ABG O2 Saturation (94-97) % Sodium (137-145) mmol/L Potassium (3.5-5.1) mmol/L Chloride (98-107) mmol/L Carbon Dioxide (22-30) mmol/L BUN (7-17) mg/dL Glucose (74-99) mg/dL POC Glucose (mg/dL) 206 H 190 H 192 H (70-110) mg/dL Calcium (8.4-10.2) mg/dL AST (14-36) U/L ALT (4-34) U/L Total Protein (6.3-8.2) g/dL Albumin (3.5-5.0) g/dL 12/21/23 12/21/23 12/21/23 Range/Units 11:13 12:25 13:11 Hgb (11.4-16.0) gm/dL Hct (34.0-46.0) % MCV (80.0-100.0) fL MCH (25.0-35.0) pg MCHC (31.0-37.0) g/dL RDW (11.5-15.5) % Lymphocytes # (1.0-4.8) k/uL ABG HCO3 (21-25) mmol/L ABG Total CO2 (19-24) mmol/L ABG O2 Saturation (94-97) % Sodium (137-145) mmol/L Potassium (3.5-5.1) mmol/L Chloride (98-107) mmol/L Carbon Dioxide (22-30) mmol/L BUN (7-17) mg/dL Glucose (74-99) mg/dL POC Glucose (mg/dL) 189 H 178 H 157 H (70-110) mg/dL Calcium (8.4-10.2) mg/dL AST (14-36) U/L ALT (4-34) U/L Total Protein (6.3-8.2) g/dL Albumin (3.5-5.0) g/dL 12/21/23 12/21/23 12/21/23 Range/Units 14:12 15:15 17:20 Hgb (11.4-16.0) gm/dL Hct (34.0-46.0) % MCV (80.0-100.0) fL MCH (25.0-35.0) pg MCHC (31.0-37.0) g/dL RDW (11.5-15.5) % Lymphocytes # (1.0-4.8) k/uL ABG HCO3 (21-25) mmol/L ABG Total CO2 (19-24) mmol/L ABG O2 Saturation (94-97) % Sodium (137-145) mmol/L Potassium (3.5-5.1) mmol/L Chloride (98-107) mmol/L Carbon Dioxide (22-30) mmol/L BUN (7-17) mg/dL Glucose (74-99) mg/dL POC Glucose (mg/dL) 161 H 149 H 140 H (70-110) mg/dL Calcium (8.4-10.2) mg/dL AST (14-36) U/L ALT (4-34) U/L Total Protein (6.3-8.2) g/dL Albumin (3.5-5.0) g/dL 12/21/23 12/21/23 12/21/23 Range/Units 18:54 18:55 19:58 Hgb (11.4-16.0) gm/dL Hct (34.0-46.0) % MCV (80.0-100.0) fL MCH (25.0-35.0) pg MCHC (31.0-37.0) g/dL RDW (11.5-15.5) % Lymphocytes # (1.0-4.8) k/uL ABG HCO3 (21-25) mmol/L ABG Total CO2 (19-24) mmol/L ABG O2 Saturation (94-97) % Sodium (137-145) mmol/L Potassium 3.4 L (3.5-5.1) mmol/L Chloride (98-107) mmol/L Carbon Dioxide (22-30) mmol/L BUN (7-17) mg/dL Glucose (74-99) mg/dL POC Glucose (mg/dL) 127 H 192 H (70-110) mg/dL Calcium (8.4-10.2) mg/dL AST (14-36) U/L ALT (4-34) U/L Total Protein (6.3-8.2) g/dL Albumin (3.5-5.0) g/dL 12/21/23 12/21/23 12/22/23 Range/Units 21:55 23:55 02:06 Hgb (11.4-16.0) gm/dL Hct (34.0-46.0) % MCV (80.0-100.0) fL MCH (25.0-35.0) pg MCHC (31.0-37.0) g/dL RDW (11.5-15.5) % Lymphocytes # (1.0-4.8) k/uL ABG HCO3 (21-25) mmol/L ABG Total CO2 (19-24) mmol/L ABG O2 Saturation (94-97) % Sodium (137-145) mmol/L Potassium (3.5-5.1) mmol/L Chloride (98-107) mmol/L Carbon Dioxide (22-30) mmol/L BUN (7-17) mg/dL Glucose (74-99) mg/dL POC Glucose (mg/dL) 225 H 205 H 202 H (70-110) mg/dL Calcium (8.4-10.2) mg/dL AST (14-36) U/L ALT (4-34) U/L Total Protein (6.3-8.2) g/dL Albumin (3.5-5.0) g/dL 12/22/23 12/22/23 12/22/23 Range/Units 03:55 03:55 04:00 Hgb 9.2 L (11.4-16.0) gm/dL Hct 32.3 L (34.0-46.0) % MCV 71.5 L (80.0-100.0) fL MCH 20.4 L (25.0-35.0) pg MCHC 28.5 L (31.0-37.0) g/dL RDW 20.5 H (11.5-15.5) % Lymphocytes # 0.3 L (1.0-4.8) k/uL ABG HCO3 (21-25) mmol/L ABG Total CO2 (19-24) mmol/L ABG O2 Saturation (94-97) % Sodium 146 H (137-145) mmol/L Potassium 3.3 L (3.5-5.1) mmol/L Chloride 111 H (98-107) mmol/L Carbon Dioxide 31 H (22-30) mmol/L BUN 49 H (7-17) mg/dL Glucose 169 H (74-99) mg/dL POC Glucose (mg/dL) 195 H (70-110) mg/dL Calcium 8.3 L (8.4-10.2) mg/dL AST 74 H (14-36) U/L ALT 319 H (4-34) U/L Total Protein 5.3 L (6.3-8.2) g/dL Albumin 2.9 L (3.5-5.0) g/dL 12/22/23 12/22/23 12/22/23 Range/Units 05:04 05:56 05:59 Hgb (11.4-16.0) gm/dL Hct (34.0-46.0) % MCV (80.0-100.0) fL MCH (25.0-35.0) pg MCHC (31.0-37.0) g/dL RDW (11.5-15.5) % Lymphocytes # (1.0-4.8) k/uL ABG HCO3 30 H (21-25) mmol/L ABG Total CO2 32 H (19-24) mmol/L ABG O2 Saturation 98.0 H (94-97) % Sodium (137-145) mmol/L Potassium (3.5-5.1) mmol/L Chloride (98-107) mmol/L Carbon Dioxide (22-30) mmol/L BUN (7-17) mg/dL Glucose (74-99) mg/dL POC Glucose (mg/dL) 170 H 170 H (70-110) mg/dL Calcium (8.4-10.2) mg/dL AST (14-36) U/L ALT (4-34) U/L Total Protein (6.3-8.2) g/dL Albumin (3.5-5.0) g/dL 12/22/23 Range/Units 06:45 Hgb (11.4-16.0) gm/dL Hct (34.0-46.0) % MCV (80.0-100.0) fL MCH (25.0-35.0) pg MCHC (31.0-37.0) g/dL RDW (11.5-15.5) % Lymphocytes # (1.0-4.8) k/uL ABG HCO3 (21-25) mmol/L ABG Total CO2 (19-24) mmol/L ABG O2 Saturation (94-97) % Sodium (137-145) mmol/L Potassium (3.5-5.1) mmol/L Chloride (98-107) mmol/L Carbon Dioxide (22-30) mmol/L BUN (7-17) mg/dL Glucose (74-99) mg/dL POC Glucose (mg/dL) 157 H (70-110) mg/dL Calcium (8.4-10.2) mg/dL AST (14-36) U/L ALT (4-34) U/L Total Protein (6.3-8.2) g/dL Albumin (3.5-5.0) g/dL Microbiology - Last 24 Hours (Table) 12/18/23 16:40 Gram Stain - Final Bronchoalviolar Lavage - Right Bronchial Washings Culture - Final
[2023-12-22 07:48] LABS: Glucose,Whole Blood 154 mg/dL (70-110)
[2023-12-22] MEDS: FUROSEMIDE 10 MG/ML 4 ML VIAL IV SCH (07:56)
[2023-12-22] MEDS: METOPROLOL TARTRATE 25 MG TAB PO SCH (07:58)
[2023-12-22] MEDS: SPIRONOLACTONE 25 MG TAB PO SCH (07:58)
--- NOTE | 2023-12-22 08:09 | XR ---
EXAMINATION TYPE: XR chest 1V portable DATE OF EXAM: 12/22/2023 Comparison: 12/21/2023 Clinical History: 73-year-old female mechanical ventilation Findings: ET tube tip 3.7 cm from the nahun. NG tube courses below the diaphragm. Median sternotomy wires are present with post-CABG clips. Heart remains enlarged with diffuse interstitial and vascular density a s well as small to moderate bilateral pleural effusions, right greater than left. Relatively similar prior exam. Impression: Relatively similar CHF with pulmonary vascular congestion along with small to moderate bilateral pleu ral effusions with adjacent atelectasis and/or consolidation.
[2023-12-22 09:09] LABS: Glucose,Whole Blood 160 mg/dL (70-110)
--- NOTE | 2023-12-22 09:40 | P.PN ---
Subjective Progress Note Date: 12/22/23 Mari Moore, is a 73 year old female who presented to [facility] with a chief complaint of worsening shortness of breath. Patient reports she's had a nonproductive cough and generalized weakness and upper respiratory symptoms over the past few days. Patient has an extensive medical history including asthma, heart failure, COPD, coronary artery disease with previous history of CABG, diabetes mellitus, fibromyalgia, sleep apnea, ex- smoker and current marijuana user. Chest x-ray completed in ER showing no acute pulmonary infiltrate. Current vital signs showing temperature 97.6, heart rate 97, respiratory 18, blood pressure 98/49 with a pulse ox of 96% on room air patient testing negative for influenza RSV and COVID-19. UA negative. Troponins negative 2. BNP elevated at 2130. White blood cell within normal limits hemoglobin 8.9 at this time primary service is consulted. Will consult cardiology services in order 2-D echo. Iron studies ordered for anemia patient started on IV Solu-Medrol DuoNeb breathing treatments. At this time pulmonary and cardiology services consulted. Continue azithromycin for upper respiratory infection. Iron studies for low hemoglobin. On 12/18/2023 patient was seen and examined in the ICU her condition has worsened this morning, she was having severe continuous cough and shortness of breath, she had decrease in her O2 sat duration, she was transferred to intensive care unit, chest x-ray revealed significant worsening since x-ray done on 12/16/2023 with large right middle lobe and right lower lobe infiltrates, possibly related to aspiration. At this time patient is intubated, sedated started on mechanical ventilation, IV Zosyn was added to her medication regimen, pulmonary critical care following. On 12/19/2023 patient remains in the ICU on mechanical ventilation FiO2 40%. Patient remains on IV sedation. Levophed has been DC'd. Patient remains on IV steroids and IV antibiotics. Pulmonary and cardiology services following. ABGs this a.m. pH 7.36, pCO2 40, pO2 189, HCO3 23 and total CO2 24. On 12/20/2023 patient remains in the ICU on mechanical ventilation FiO2 30%. Liver enzymes trending down AST 222 ALT 390. ABGs this a.m. pH 7.40, pCO2 38, pO2 126 sodium bicarb 24. Patient remains on IV Zosyn and IV vancomycin. Patient dakotah on IV steroids. On 12/21/2023 patient was seen and examined in the ICU she is intubated sedated maintained on mechanical ventilation, vital exam of this morning reveals a temp erature of 99.4 heart rate 87 respiration 27 blood pressure 100/68 pulse ox 95% on FiO2 of 30% Arterial blood gas reveals pH 7.4 pCO2 39 CO2 94 liver enzymes remain elevated with ALT at 319 and AST at 222 patient is maintained on IV antibiotics Zosyn she also remains on pressure support. On 12/22/2023 patient was seen and examined in the ICU she is intubated sedated maintained on mechanical ventilation vital examination reveals a temperature of 99.4 pulse 92 respiration 20 blood pressure 106/69 pulse ox 97 percent on FiO2 of 30% she remains on assist control tidal volume 350 rate of 20 FiO2 30% and a PEEP of 5. Arterial blood gas reveals a pH of 7.44 pCO2 45 pO2 99 white blood count 5.3 hemoglobin 9.2 platelet count 213 BUN 49 creatinine 0.99 patient remains on pressure support with norepinephrine she remains on IV antibiotic Zosyn, pulmonary critical care, and cardiology are following Objective - Vital Signs Vital signs: Vital Signs Temp 99.4 F 12/22/23 04:00 Pulse 84 12/22/23 08:41 Resp 14 12/22/23 07:00 BP 119/73 12/22/23 07:00 Pulse Ox 98 12/22/23 07:00 FiO2 30 12/22/23 08:08 Intake & Output 12/21/23 12/22/23 12/22/23 18:59 06:59 18:59 Intake Total 541.039 2124.299 Output Total 4050 2365 Balance -3178.551 -768.701 Weight 89.1 kg 86.5 kg Intake: IV 70 860 .9 @ 50 70 .9 @ KVO 360 Magnesium Sulfate-D5w Pmx 100 1 gm In Dextrose/Water 1 100ml.bag @ 100 mls/hr IVPB ONCE ONE Rx#: [id number] Piperacillin-Tazobactam 3 100 .375 gm In Sodium Chloride 0.9% 100 ml @ 25 mls/hr IVPB Q8HR [facility] Rx# :[id number] Potassium Chloride 20 meq 300 In Water For Injection 1 100ml.bag @ 50 mls/hr IVPB Q2H [facility] Rx#: [id number] Intake, IV Titration 517.449 294.299 Amount Insulin Regular 100 unit 34.577 100.000 In Sodium Chloride 0.9% 100 ml @ Titrate IV .Q0M [facility] Rx#:[id number] Piperacillin-Tazobactam 3 100 .375 gm In Sodium Chloride 0.9% 100 ml @ 25 mls/hr IVPB Q8HR [facility] Rx# :[id number] Sodium Chloride 0.9% 1, 200 20 000 ml @ 20 mls/hr IV . Q24H [facility] Rx#:[id number] propofoL 1,000 mg In 182.872 174.299 Empty Bag 1 bag @ 15 MCG/ KG/MIN 7.348 mls/hr IV . [id number] [facility] Rx#:[id number] Tube Feeding 224 352 Other 60 90 Output: Urine 4050 2365 Other: Voiding Method Indwelling Catheter Indwelling Catheter ABP, PAP, CO, CI - Last Documented Arterial Blood Pressure 137/64 - Exam In general patient is intubated sedated maintained on mechanical ventilation Head normocephalic and atraumatic Neck supple no JVD no goiter Lungs exam reveals coarse crackles bilaterally no wheezing Heart regular rate and rhythm S1-S2, no rub or gallop Abdomen is soft nontender nondistended positive bowel sounds no hepatosplenomegaly Extremities no edema Neuro no gross focal deficit - Labs CBC & Chem 7: 12/22/23 03:55 12/22/23 03:55 Labs: Abnormal Lab Results - Last 24 Hours (Table) 12/21/23 12/21/23 12/21/23 Range/Units 09:53 11:03 11:13 Hgb (11.4-16.0) gm/dL Hct (34.0-46.0) % MCV (80.0-100.0) fL MCH (25.0-35.0) pg MCHC (31.0-37.0) g/dL RDW (11.5-15.5) % Lymphocytes # (1.0-4.8) k/uL ABG HCO3 (21-25) mmol/L ABG Total CO2 (19-24) mmol/L ABG O2 Saturation (94-97) % Sodium (137-145) mmol/L Potassium (3.5-5.1) mmol/L Chloride (98-107) mmol/L Carbon Dioxide (22-30) mmol/L BUN (7-17) mg/dL Glucose (74-99) mg/dL POC Glucose (mg/dL) 190 H 192 H 189 H (70-110) mg/dL Calcium (8.4-10.2) mg/dL AST (14-36) U/L ALT (4-34) U/L Total Protein (6.3-8.2) g/dL Albumin (3.5-5.0) g/dL 12/21/23 12/21/23 12/21/23 Range/Units 12:25 13:11 14:12 Hgb (11.4-16.0) gm/dL Hct (34.0-46.0) % MCV (80.0-100.0) fL MCH (25.0-35.0) pg MCHC (31.0-37.0) g/dL RDW (11.5-15.5) % Lymphocytes # (1.0-4.8) k/uL ABG HCO3 (21-25) mmol/L ABG Total CO2 (19-24) mmol/L ABG O2 Saturation (94-97) % Sodium (137-145) mmol/L Potassium (3.5-5.1) mmol/L Chloride (98-107) mmol/L Carbon Dioxide (22-30) mmol/L BUN (7-17) mg/dL Glucose (74-99) mg/dL POC Glucose (mg/dL) 178 H 157 H 161 H (70-110) mg/dL Calcium (8.4-10.2) mg/dL AST (14-36) U/L ALT (4-34) U/L Total Protein (6.3-8.2) g/dL Albumin (3.5-5.0) g/dL 12/21/23 12/21/23 12/21/23 Range/Units 15:15 17:20 18:54 Hgb (11.4-16.0) gm/dL Hct (34.0-46.0) % MCV (80.0-100.0) fL MCH (25.0-35.0) pg MCHC (31.0-37.0) g/dL RDW (11.5-15.5) % Lymphocytes # (1.0-4.8) k/uL ABG HCO3 (21-25) mmol/L ABG Total CO2 (19-24) mmol/L ABG O2 Saturation (94-97) % Sodium (137-145) mmol/L Potassium (3.5-5.1) mmol/L Chloride (98-107) mmol/L Carbon Dioxide (22-30) mmol/L BUN (7-17) mg/dL Glucose (74-99) mg/dL POC Glucose (mg/dL) 149 H 140 H 127 H (70-110) mg/dL Calcium (8.4-10.2) mg/dL AST (14-36) U/L ALT (4-34) U/L Total Protein (6.3-8.2) g/dL Albumin (3.5-5.0) g/dL 12/21/23 12/21/23 12/21/23 Range/Units 18:55 19:58 21:55 Hgb (11.4-16.0) gm/dL Hct (34.0-46.0) % MCV (80.0-100.0) fL MCH (25.0-35.0) pg MCHC (31.0-37.0) g/dL RDW (11.5-15.5) % Lymphocytes # (1.0-4.8) k/uL ABG HCO3 (21-25) mmol/L ABG Total CO2 (19-24) mmol/L ABG O2 Saturation (94-97) % Sodium (137-145) mmol/L Potassium 3.4 L (3.5-5.1) mmol/L Chloride (98-107) mmol/L Carbon Dioxide (22-30) mmol/L BUN (7-17) mg/dL Glucose (74-99) mg/dL POC Glucose (mg/dL) 192 H 225 H (70-110) mg/dL Calcium (8.4-10.2) mg/dL AST (14-36) U/L ALT (4-34) U/L Total Protein (6.3-8.2) g/dL Albumin (3.5-5.0) g/dL 12/21/23 12/22/23 12/22/23 Range/Units 23:55 02:06 03:55 Hgb (11.4-16.0) gm/dL Hct (34.0-46.0) % MCV (80.0-100.0) fL MCH (25.0-35.0) pg MCHC (31.0-37.0) g/dL RDW (11.5-15.5) % Lymphocytes # (1.0-4.8) k/uL ABG HCO3 (21-25) mmol/L ABG Total CO2 (19-24) mmol/L ABG O2 Saturation (94-97) % Sodium 146 H (137-145) mmol/L Potassium 3.3 L (3.5-5.1) mmol/L Chloride 111 H (98-107) mmol/L Carbon Dioxide 31 H (22-30) mmol/L BUN 49 H (7-17) mg/dL Glucose 169 H (74-99) mg/dL POC Glucose (mg/dL) 205 H 202 H (70-110) mg/dL Calcium 8.3 L (8.4-10.2) mg/dL AST 74 H (14-36) U/L ALT 319 H (4-34) U/L Total Protein 5.3 L (6.3-8.2) g/dL Albumin 2.9 L (3.5-5.0) g/dL 12/22/23 12/22/23 12/22/23 Range/Units 03:55 04:00 05:04 Hgb 9.2 L (11.4-16.0) gm/dL Hct 32.3 L (34.0-46.0) % MCV 71.5 L (80.0-100.0) fL MCH 20.4 L (25.0-35.0) pg MCHC 28.5 L (31.0-37.0) g/dL RDW 20.5 H (11.5-15.5) % Lymphocytes # 0.3 L (1.0-4.8) k/uL ABG HCO3 (21-25) mmol/L ABG Total CO2 (19-24) mmol/L ABG O2 Saturation (94-97) % Sodium (137-145) mmol/L Potassium (3.5-5.1) mmol/L Chloride (98-107) mmol/L Carbon Dioxide (22-30) mmol/L BUN (7-17) mg/dL Glucose (74-99) mg/dL POC Glucose (mg/dL) 195 H 170 H (70-110) mg/dL Calcium (8.4-10.2) mg/dL AST (14-36) U/L ALT (4-34) U/L Total Protein (6.3-8.2) g/dL Albumin (3.5-5.0) g/dL 12/22/23 12/22/23 12/22/23 Range/Units 05:56 05:59 06:45 Hgb (11.4-16.0) gm/dL Hct (34.0-46.0) % MCV (80.0-100.0) fL MCH (25.0-35.0) pg MCHC (31.0-37.0) g/dL RDW (11.5-15.5) % Lymphocytes # (1.0-4.8) k/uL ABG HCO3 30 H (21-25) mmol/L ABG Total CO2 32 H (19-24) mmol/L ABG O2 Saturation 98.0 H (94-97) % Sodium (137-145) mmol/L Potassium (3.5-5.1) mmol/L Chloride (98-107) mmol/L Carbon Dioxide (22-30) mmol/L BUN (7-17) mg/dL Glucose (74-99) mg/dL POC Glucose (mg/dL) 170 H 157 H (70-110) mg/dL Calcium (8.4-10.2) mg/dL AST (14-36) U/L ALT (4-34) U/L Total Protein (6.3-8.2) g/dL Albumin (3.5-5.0) g/dL 12/22/23 12/22/23 Range/Units 07:46 09:07 Hgb (11.4-16.0) gm/dL Hct (34.0-46.0) % MCV (80.0-100.0) fL MCH (25.0-35.0) pg MCHC (31.0-37.0) g/dL RDW (11.5-15.5) % Lymphocytes # (1.0-4.8) k/uL ABG HCO3 (21-25) mmol/L ABG Total CO2 (19-24) mmol/L ABG O2 Saturation (94-97) % Sodium (137-145) mmol/L Potassium (3.5-5.1) mmol/L Chloride (98-107) mmol/L Carbon Dioxide (22-30) mmol/L BUN (7-17) mg/dL Glucose (74-99) mg/dL POC Glucose (mg/dL) 154 H 160 H (70-110) mg/dL Calcium (8.4-10.2) mg/dL AST (14-36) U/L ALT (4-34) U/L Total Protein (6.3-8.2) g/dL Albumin (3.5-5.0) g/dL Microbiology - Last 24 Hours (Table) 12/18/23 16:40 Gram Stain - Final Bronchoalviolar Lavage - Right Bronchial Washings Culture - Final Assessment and Plan Assessment: 1. Acute exacerbation of COPD. 2. Acute on chronic exacerbation of systolic CHF 3. Anemia. Iron studies ordered 4. Cardiomyopathy with an EF of 30-35% 5. History of non-STEMI September 2023 status post cardiac cath showing 80% stenosis of the stent patent 6. History of coronary artery disease disease status post CABG 7. History of diabetes mellitus type II 8. History of essential hypertension 9. History of hyperlipidemia. 10. Acute hypoxic respiratory failure requiring intubation and mechanical ventilation on 12/18/2023 11. Right middle lobe and right lower lobe infiltrates, suggestive of pneumonia, possible aspiration. DVT prophylaxis Lovenox. GI prophylaxis Protonix Cardiology and pulmonary service is consulted. Patient started on IV Solu-Medrol Repeat labs ordered iron studies ordered
[2023-12-22 10:03] LABS: Glucose,Whole Blood 164 mg/dL (70-110)
[2023-12-22 11:10] LABS: Glucose,Whole Blood 143 mg/dL (70-110)
[2023-12-22 12:03] LABS: Glucose,Whole Blood 164 mg/dL (70-110)
[2023-12-22 12:18] LABS: ABG Base Excess 8.2 mmol/L; ABG HCO3 32 mmol/L (21-25); ABG Oxygen Saturation 98.5 % (94-97); ABG PCO2 44 mmHg (35-45); ABG PH 7.47 (7.35-7.45); ABG PO2 116 mmHg (83-108); ABG TCO2 33 mmol/L (19-24); Allen Test Performed? Yes
--- NOTE | 2023-12-22 14:10 | P.PN ---
Subjective Progress Note Date: 12/22/23 On 12/18/2023, the patient is being seen in follow-up on the medical floor. The patient was found to be in significant degree of respiratory distress and the patient was using some accessory muscles of breathing. She was having frequent coughing episode and she was unable to catch her breath in between those coughing episodes. She was still responsive and communicating. At that point, I made recommendations to transfer this patient to the intensive care unit for further monitoring. Within 20 minutes, the patient became more diaphoretic, lethargic, quite obtunded and at that point, the patient had to be intubated and placed on the mechanical ventilator. I personally intubated the patient in the intensive care unit. I have her on a tidal volume of 350, rate of 24 with an FiO2 of 100% with a PEEP of 5. Postintubation chest x-ray showed extensive consolidation of the right lung and there is new airspace disease throughout the right lung along with some areas of consolidations and interstitial changes. Post NG tube insertion, the patient's stomach was decompressed and there was total amount of 500 cc of gastric material aspirated from the stomach. No reported aspiration. Obviously, the patient has multifocal pneumonia at this point in time more extensive in the right lung especially in the right middle and right lower lobe area. The white cell count at 7.1 with a hemoglobin 8.8, BUN is at 15 with a creatinine of 0.5 and sodium levels at 137. Potassium level is at 4.2. The patient was started on propofol for sedation. She was given also a dose of Nimbex during the intubation process 10 mg IV x 1. Blood gas are still pending. She may need a bronchoscopy and right lower lobe bronchoalveolar lavage. She remains on bronchodilators. She remains on steroids. Antibiotics will be modified and Zosyn will be added in combination with Zithromax. She has not required any pressors yet. She will be given a bolus of 1 L and following that she will be started on a maintenance of 100 cc an hour. Condition is obviously is critical at this point in time. Echocardiogram that was obtained on 10/19/2023 showed systolic heart failure with an underlying left ventricular ejection fraction of 30 to 35%. The patient also had mild RV dilatation, mild aortic regurgitation, mild to moderate mitral Regurgitation with a right ventricular systolic pressure of 32. He also has moderate degree of pulm hypertension. On today's evaluation of 12/19/2023, the patient is intubated on the mechanical ventilator. Overnight, the patient was kept intubated and the patient is sedated adequately with propofol which is running at 35 mcg/kg/min. As mentioned, the patient developed an extensive right lung pneumonia with respiratory failure requiring intubation mechanical ventilation. She currently has a #7.5 orotracheal tube. She is on assist-control mode of mechanical ventilation at a rate of 30, tidal volume of 350, FiO2 of 40% and a PEEP of 5. The peak airway pressure is around 25. The chest x-ray from today showing bilateral pleural effusion and significant consolidation of the right lung base and there is also some limited infiltration of the left lung base. I performed a bronchoscopy on this patient yesterday endobronchial lavage of the right lower lobe was obtained. The results are still pending for now. Meanwhile, the patient was covered with broad-spectrum antibiotic coverage and she is currently on a combination of Zosyn, Zithromax and vancomycin. The peak airway pressure is ranging between 21 and 23. The blood gas shows improvement in the pH is currently up to 7.36 with a pCO2 of 40 and pO2 of 189. Note that the patient was also given 2 doses of bicarb yesterday as the patient was quite acidotic. Rest of the blood work from today shows a WBC count of 9.9, hemoglobin of 9.1 and a platelet count of 288. Sodium is at 143,. Potassium level is at 3.8, BUN is at 25 with a creatinine of 0.9. LFTs are elevated with an AST of 525 and ALT of 448 and a bilirubin of 0.8. Her urine drug screen is positive for cannabis and the patient admits to smoke marijuana on a daily basis approximately 2 joints a day. She is on DuoNeb nebulized treatments [id number]. She is also on a combination of Perforomist and Pulmicort updrafts. She remains on IV Solu-Medrol. She is also on Lovenox 40 mg subcu for DVT prophylaxis. Feeding has not been started yet. Echocardiogram that was done on 10/19/2023 showed impaired LV function with an ejection fraction of 30 to 35%. We have not encountered any hypotension on this patient. She was quite tachycardic yesterday and she was placed briefly on norepinephrine yesterday for some limited hypotension and this ultimately improved and her current mean arterial pressure is around 74. She is on insulin drip running at 3 units an hour. Blood sugars under better control for now. On 12/20/2023, the patient remains intubated on the mechanical ventilator. Note that the patient is also sedated with a combination of fentanyl and propofol. The propofol is running at 35 mcg/kg/min and the patient is also on fentanyl 0.5 mcg/kg/h. Adequately sedated and the patient is synchronous with mechanical yoel tilator. She is currently at a rate of 30, tidal volume of 350, FiO2 is down to 30% with a PEEP of 5. The follow-up chest x-ray showsNo significant consolidation. There is improved in the right lower lobe consolidation. There is also cardiomegaly and CHF with interstitial edema and small bilateral pleural effusion. ET tube remains in a good location. As for the blood gas, the patient has a pH of 7.4 with a pCO2 of 38 and pO2 of 126 and this was on FiO2 of 40%. No significant orotracheal secretions. Bronchoscopy endobronchial done but results are still pending for now and there is no significant microbial growth. The blood cultures been negative. On blood work, the patient's white c ell count is 5.9 with a hemoglobin of 8.5 and a platelet count of 236. Sodium is 145, potassium is at 4, BUN is at 33 with a creatinine of 0.9. Viral screen has been negative. Legionella urine antigen has been negative. The patient is also receiving enteral feeding for nutritional support. The patient is currently on vital high-protein at the rate of 30 cc an hour and the patient is also on insulin drip at 5 units an hour. Overall fluid balance is +1.5 L over the past 24 hours. On 12/21/2023, the patient is being seen for a follow-up. The patient remains intubated and mechanically ventilated. She is calm and comfortable on a combination of propofol and fentanyl. Propofol is running at 35 mcg/kg/min and fentanyl is running at 0.5 mcg/kg/h. 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 This morning, she is on assist-control of 20, tidal volume of 350, FiO2 of 30% with a PEEP of 5. She is calm and comfortable and synchronous with mechanical ventilator. Chest x-ray showing cardiomegaly and pulm vascular congestion at the bronchoscopy endobronchial lavage that was done earlier yielded no microbial growth thus far. Based on that, I am going to discontinue the vancomycin and keep the patient on a combination of Zosyn and Zithromax. Otherwise, the fluid balance is positive and the patient will be started on more aggressive diuresis. The patient remains on vital high-protein at the rate of 32 cc an hour. The chest x-ray from today is consistent with CHF Along with some lower lobe consolidation bilaterally and the possibility of pneumonia cannot be completely excluded. The white cell count is 4.5, hemoglobin is 8.5 and a platelet count is at 245. Sodium is at 145 with a potassium level of 3.8, BUN is 43 with a creatinine of 1.0. LFTs are essentially improving and the AST is down to 222 and the ALT is down to 3019. Cultures are negative. Antibiotics are mentioned and they will include a combination of Zosyn Zithromax and vancomycin will be discontinued. Noted the patient was given a sedation holiday yesterday and during the process the patient had a an episode of SVT. The patient was given adenosine and following that the patient was placed on Cardizem and currently she is off Cardizem and the cardiac rhythm is back into normal sinus rhythm. No other significant events overnight. No fever or chills. No hemodynamic instability. She is known to have cardiomyopathy with impaired LV function. The patient remains on insulin drip at 6 units an hour. Afebrile. Hemodynamically stable. No pressors. 12/22/2023, the patient is being seen in follow-up. Remains intubated on the mechanical ventilator. This morning, she remains on propofol at 30 mcg/kg/min and fentanyl is at 0.5 mcg/kg/h. She is on assist-control mode with rate of 20, tidal volume of 350, FiO2 is down to 30% with a PEEP of 5. Peak airway pressures of 21. Blood gas showed a pH of 7.44 with a pCO2 of 45 and a pO2 of 99. The chest x-ray from today shows cardiomegaly and bilateral pleural effusions slightly worse on the right. There is no airspace disease or c onsolidations. The patient is hemodynamically stable. The patient is on no pressors. The white cell count of 5.3 with a hemoglobin of 9.2. Sodium is at 146 and a potassium level of 3.3, chloride is 111, bicarb is 31 with a BUN of 49 and a creatinine of 0.99. Bronchoscopy has not yielded any microbial growth. Vancomycin was discontinued yesterday the patient remains on a combination of Zosyn and and Zithromax. The patient is also being diuresed with IV Lasix 40 mg IV every 12 hours. Fluid balance is -3.9 L over the past 24 hours and the patient's volume status being further optimized. The patient is also on enteral feeding for nutritional support and she is on vital high-protein at the rate of 32 cc an hour. Insulin drip is at 6 units an hour. The patient has adequate blood sugar control. The patient is afebrile. No other significant events overnight. Objective - Vital Signs Vital signs: Vital Signs Temp 99.1 F 12/22/23 12:00 Pulse 120 H 12/22/23 12:00 Resp 12 12/22/23 12:00 BP 151/81 12/22/23 12:00 Pulse Ox 98 12/22/23 12:33 FiO2 30 12/22/23 12:00 Intake & Output 12/21/23 12/22/23 12/22/23 18:59 06:59 18:59 Intake Total 717.422 5273.299 1002.957 Output Total 4050 2365 1740 Balance -3178.551 -768.701 -737.043 Weight 89.1 kg 86.5 kg 86.5 kg Intake: IV 70 860 750 .9 @ 50 70 .9 @ KVO 360 150 Magnesium Sulfate-D5w Pmx 100 1 gm In Dextrose/Water 1 100ml.bag @ 100 mls/hr IVPB ONCE ONE Rx#: [id number] Piperacillin-Tazobactam 3 100 .375 gm In Sodium Chloride 0.9% 100 ml @ 25 mls/hr IVPB Q8HR [facility] Rx# :[id number] Potassium Chloride 20 meq 300 100 In Water For Injection 1 100ml.bag @ 50 mls/hr IVPB Q2H [facility] Rx#: [id number] Vancomycin 1,750 mg In 500 Sodium Chloride 0.9% 500 ml 500 ml @ 167 mls/hr IVPB HS [facility] Rx#:[id number] Intake, IV Titration 517.449 294.299 158.957 Amount Insulin Regular 100 unit 34.577 100.000 In Sodium Chloride 0.9% 100 ml @ Titrate IV .Q0M [facility] Rx#:[id number] Piperacillin-Tazobactam 3 100 .375 gm In Sodium Chloride 0.9% 100 ml @ 25 mls/hr IVPB Q8HR [facility] Rx# :[id number] Sodium Chloride 0.9% 1, 200 20 000 ml @ 20 mls/hr IV . Q24H [facility] Rx#:[id number] fentaNYL (PF). 1,000 mcg 73.553 In Sodium Chloride 0.9% 80 ml @ 0.5 MCG/KG/HR 4.4 mls/hr IV .[id number] [facility] Rx#:[id number] propofoL 1,000 mg In 182.872 174.299 85.404 Empty Bag 1 bag @ 15 MCG/ KG/MIN 7.348 mls/hr IV . [id number] [facility] Rx#:[id number] Tube Feeding 224 352 64 Other 60 90 30 Output: Urine 4050 2365 1740 Other: Voiding Method Indwelling Catheter Indwelling Catheter Indwelling Catheter ABP, PAP, CO, CI - Last Documented Arterial Blood Pressure 132/67 - Exam Sedated on propofol and, comfortable, intubated on mechanical ventilator. Orogastric and orotracheal tube are both in place. Head exam was generally normal. There was no scleral icterus or corneal arcus. Mucous membranes were moist. Neck supple. Full range of motion. No adenopathy thyromegaly or neck vein distention. Cardiovascular examination reveals regular rhythm rate. S1-S2 normal. No S3 or S4. No discernible murmur noted. Heart sounds are distant. Patient is tachycardic although the rhythm strip is showing some sinus rhythm Lungs reveal coarse bilateral inspiratory and expiratory rhonchi. No crackles. Marked diminished breath sounds along with diffuse expiratory wheezes throughout the lung powers bilaterally. Abdomen soft bowel sounds are heard. No masses or tenderness. Extremities are intact. No cyanosis or clubbing. The patient does have a +1 edema lower extremities bilaterally Skin is without rash or lesion. Neurologic examination, the patient is currently sedated and the patient was withdrawing to painful stimulation moving all 4 extremities prior to intubation. Pupils are equal reactive to light. - Labs CBC & Chem 7: 12/22/23 03:55 12/22/23 12:09 Labs: Abnormal Lab Results - Last 24 Hours (Table) 12/21/23 12/21/23 12/21/23 Range/Units 14:12 15:15 17:20 Hgb (11.4-16.0) gm/dL Hct (34.0-46.0) % MCV (80.0-100.0) fL MCH (25.0-35.0) pg MCHC (31.0-37.0) g/dL RDW (11.5-15.5) % Lymphocytes # (1.0-4.8) k/uL ABG pH (7.35-7.45) ABG pO2 (83-108) mmHg ABG HCO3 (21-25) mmol/L ABG Total CO2 (19-24) mmol/L ABG O2 Saturation (94-97) % Sodium (137-145) mmol/L Potassium (3.5-5.1) mmol/L Chloride (98-107) mmol/L Carbon Dioxide (22-30) mmol/L BUN (7-17) mg/dL Glucose (74-99) mg/dL POC Glucose (mg/dL) 161 H 149 H 140 H (70-110) mg/dL Calcium (8.4-10.2) mg/dL AST (14-36) U/L ALT (4-34) U/L Total Protein (6.3-8.2) g/dL Albumin (3.5-5.0) g/dL 12/21/23 12/21/23 12/21/23 Range/Units 18:54 18:55 19:58 Hgb (11.4-16.0) gm/dL Hct (34.0-46.0) % MCV (80.0-100.0) fL MCH (25.0-35.0) pg MCHC (31.0-37.0) g/dL RDW (11.5-15.5) % Lymphocytes # (1.0-4.8) k/uL ABG pH (7.35-7.45) ABG pO2 (83-108) mmHg ABG HCO3 (21-25) mmol/L ABG Total CO2 (19-24) mmol/L ABG O2 Saturation (94-97) % Sodium (137-145) mmol/L Potassium 3.4 L (3.5-5.1) mmol/L Chloride (98-107) mmol/L Carbon Dioxide (22-30) mmol/L BUN (7-17) mg/dL Glucose (74-99) mg/dL POC Glucose (mg/dL) 127 H 192 H (70-110) mg/dL Calcium (8.4-10.2) mg/dL AST (14-36) U/L ALT (4-34) U/L Total Protein (6.3-8.2) g/dL Albumin (3.5-5.0) g/dL 12/21/23 12/21/23 12/22/23 Range/Units 21:55 23:55 02:06 Hgb (11.4-16.0) gm/dL Hct (34.0-46.0) % MCV (80.0-100.0) fL MCH (25.0-35.0) pg MCHC (31.0-37.0) g/dL RDW (11.5-15.5) % Lymphocytes # (1.0-4.8) k/uL ABG pH (7.35-7.45) ABG pO2 (83-108) mmHg ABG HCO3 (21-25) mmol/L ABG Total CO2 (19-24) mmol/L ABG O2 Saturation (94-97) % Sodium (137-145) mmol/L Potassium (3.5-5.1) mmol/L Chloride (98-107) mmol/L Carbon Dioxide (22-30) mmol/L BUN (7-17) mg/dL Glucose (74-99) mg/dL POC Glucose (mg/dL) 225 H 205 H 202 H (70-110) mg/dL Calcium (8.4-10.2) mg/dL AST (14-36) U/L ALT (4-34) U/L Total Protein (6.3-8.2) g/dL Albumin (3.5-5.0) g/dL 12/22/23 12/22/23 12/22/23 Range/Units 03:55 03:55 04:00 Hgb 9.2 L (11.4-16.0) gm/dL Hct 32.3 L (34.0-46.0) % MCV 71.5 L (80.0-100.0) fL MCH 20.4 L (25.0-35.0) pg MCHC 28.5 L (31.0-37.0) g/dL RDW 20.5 H (11.5-15.5) % Lymphocytes # 0.3 L (1.0-4.8) k/uL ABG pH (7.35-7.45) ABG pO2 (83-108) mmHg ABG HCO3 (21-25) mmol/L ABG Total CO2 (19-24) mmol/L ABG O2 Saturation (94-97) % Sodium 146 H (137-145) mmol/L Potassium 3.3 L (3.5-5.1) mmol/L Chloride 111 H (98-107) mmol/L Carbon Dioxide 31 H (22-30) mmol/L BUN 49 H (7-17) mg/dL Glucose 169 H (74-99) mg/dL POC Glucose (mg/dL) 195 H (70-110) mg/dL Calcium 8.3 L (8.4-10.2) mg/dL AST 74 H (14-36) U/L ALT 319 H (4-34) U/L Total Protein 5.3 L (6.3-8.2) g/dL Albumin 2.9 L (3.5-5.0) g/dL 12/22/23 12/22/23 12/22/23 Range/Units 05:04 05:56 05:59 Hgb (11.4-16.0) gm/dL Hct (34.0-46.0) % MCV (80.0-100.0) fL MCH (25.0-35.0) pg MCHC (31.0-37.0) g/dL RDW (11.5-15.5) % Lymphocytes # (1.0-4.8) k/uL ABG pH (7.35-7.45) ABG pO2 (83-108) mmHg ABG HCO3 30 H (21-25) mmol/L ABG Total CO2 32 H (19-24) mmol/L ABG O2 Saturation 98.0 H (94-97) % Sodium (137-145) mmol/L Potassium (3.5-5.1) mmol/L Chloride (98-107) mmol/L Carbon Dioxide (22-30) mmol/L BUN (7-17) mg/dL Glucose (74-99) mg/dL POC Glucose (mg/dL) 170 H 170 H (70-110) mg/dL Calcium (8.4-10.2) mg/dL AST (14-36) U/L ALT (4-34) U/L Total Protein (6.3-8.2) g/dL Albumin (3.5-5.0) g/dL 12/22/23 12/22/23 12/22/23 Range/Units 06:45 07:46 09:07 Hgb (11.4-16.0) gm/dL Hct (34.0-46.0) % MCV (80.0-100.0) fL MCH (25.0-35.0) pg MCHC (31.0-37.0) g/dL RDW (11.5-15.5) % Lymphocytes # (1.0-4.8) k/uL ABG pH (7.35-7.45) ABG pO2 (83-108) mmHg ABG HCO3 (21-25) mmol/L ABG Total CO2 (19-24) mmol/L ABG O2 Saturation (94-97) % Sodium (137-145) mmol/L Potassium (3.5-5.1) mmol/L Chloride (98-107) mmol/L Carbon Dioxide (22-30) mmol/L BUN (7-17) mg/dL Glucose (74-99) mg/dL POC Glucose (mg/dL) 157 H 154 H 160 H (70-110) mg/dL Calcium (8.4-10.2) mg/dL AST (14-36) U/L ALT (4-34) U/L Total Protein (6.3-8.2) g/dL Albumin (3.5-5.0) g/dL 12/22/23 12/22/23 12/22/23 Range/Units 10:01 11:09 12:01 Hgb (11.4-16.0) gm/dL Hct (34.0-46.0) % MCV (80.0-100.0) fL MCH (25.0-35.0) pg MCHC (31.0-37.0) g/dL RDW (11.5-15.5) % Lymphocytes # (1.0-4.8) k/uL ABG pH (7.35-7.45) ABG pO2 (83-108) mmHg ABG HCO3 (21-25) mmol/L ABG Total CO2 (19-24) mmol/L ABG O2 Saturation (94-97) % Sodium (137-145) mmol/L Potassium (3.5-5.1) mmol/L Chloride (98-107) mmol/L Carbon Dioxide (22-30) mmol/L BUN (7-17) mg/dL Glucose (74-99) mg/dL POC Glucose (mg/dL) 164 H 143 H 164 H (70-110) mg/dL Calcium (8.4-10.2) mg/dL AST (14-36) U/L ALT (4-34) U/L Total Protein (6.3-8.2) g/dL Albumin (3.5-5.0) g/dL 12/22/23 Range/Units 12:15 Hgb (11.4-16.0) gm/dL Hct (34.0-46.0) % MCV (80.0-100.0) fL MCH (25.0-35.0) pg MCHC (31.0-37.0) g/dL RDW (11.5-15.5) % Lymphocytes # (1.0-4.8) k/uL ABG pH 7.47 H (7.35-7.45) ABG pO2 116 H (83-108) mmHg ABG HCO3 32 H (21-25) mmol/L ABG Total CO2 33 H (19-24) mmol/L ABG O2 Saturation 98.5 H (94-97) % Sodium (137-145) mmol/L Potassium (3.5-5.1) mmol/L Chloride (98-107) mmol/L Carbon Dioxide (22-30) mmol/L BUN (7-17) mg/dL Glucose (74-99) mg/dL POC Glucose (mg/dL) (70-110) mg/dL Calcium (8.4-10.2) mg/dL AST (14-36) U/L ALT (4-34) U/L Total Protein (6.3-8.2) g/dL Albumin (3.5-5.0) g/dL Microbiology - Last 24 Hours (Table) 12/18/23 16:40 Gram Stain - Final Bronchoalviolar Lavage - Right Bronchial Washings Culture - Final Assessment and Plan Plan: Acute hypoxic respiratory failure, currently intubated and mechanically ventilated, the patient developed an extensive right lower lobe pneumonia, currently covered broad-spectrum antibiotics. Subsequent chest x-ray was more consistent with CHF. As such, the patient's respiratory failure may be due to a combination of pneumonia and CHF. Bronchoscopy endobronchial lavage yielded no microbial growth. The patient will be started on more aggressive diuresis. The patient remains in negative fluid balance. Repeat chest x-ray from today showed cardiomegaly and bilateral pleural effusions slightly worse on the right. Nevertheless, the volume status has been adequately optimized. Multifocal pneumonia with extensive consolidation and airspace disease involving the right middle/right lower lobe area. The right lower lobe consolidation is clearing and the patient's bronchoscopy endobronchial lavage has been completed and the results are still negative and the patient remains on a combination of Zosyn Zithromax, vancomycin has been discontinued and the patient's lavage has not yielded any microbial growth. History of exacerbation and the patient showing some limited bronchospasm and wheezing on today's exam examination, improved and the patient's peak airway pressure is down to 21 Marijuana smoker Severe respiratory distress and dyspnea secondary to above in addition to vigorous cough. Currently intubated on mechanical ventilator. History of coronary artery disease, status post bypass surgery. History of COPD, from previous tobacco use. Chronic systolic heart failure with an ejection fraction of 30 to 35% along with moderate MR and mild to moderate pulm hypertension with a PA pressure of 32 Sinus tachycardia versus MAT, heart rate is under better control and the patient is currently in his normal sinus rhythm with occasional PVCs History of diabetes mellitus, with a component of steroid-induced hyperglycemia, the patient is currently on insulin drip at 5 units an hour History of hyperlipidemia. History of hypertension. History of fibromyalgia. History of obstructive sleep apnea syndrome. History of polysubstance abuse. SVT, single episode, treated with adenosine and the patient was also given Cardizem drip. Currently in a sinus tachycardia. Plan Gradually weaned off the sedation and give the patient a sedation holiday and assess mental status Will check the weaning parameters if the patient shows adequate mentation Will start the patient on Lasix 40 mg IV every 12 hours and the dose has been modified And Aldactone Replace potassium Will change IV fluids to KVO Awaiting the results of the bronchial lavage, the results are still negative Continue Zithromax and add Zosyn Will continue bronchodilators Continue Perforomist and Pulmicort updrafts twice a day Continue IV Solu-Medrol at the current dose Insulin drip for blood sugar control, currently running at 6 units an hour Continue vital high-protein for enteral feeding and nutritional support We are going to wean off the sedation and assess the patient's readiness to wean. Possible extubation today. No active bronchospasm or wheezing on today's evaluation. Lovenox 40 mg subcu for DVT prophylaxis Will continue to follow. This critical care evaluation was done more than 30 minutes. Time with Patient: Greater than 30
[2023-12-22 14:11] LABS: Glucose,Whole Blood 135 mg/dL (70-110)
[2023-12-22 15:11] LABS: Glucose,Whole Blood 193 mg/dL (70-110)
[2023-12-22 15:56] LABS: Glucose,Whole Blood 218 mg/dL (70-110)
[2023-12-22] MEDS: METOPROLOL TARTRATE 25 MG TAB PO STA (16:08)
[2023-12-22] MEDS: FUROSEMIDE 10 MG/ML 4 ML VIAL IV STA (16:26)
[2023-12-22] MEDS: DEXMEDETOMIDINE/0.9% NACL(PMX) 400 MCG in EMPTY BAG 1 BAG IV SCH (17:11)
[2023-12-22 17:15] LABS: Glucose,Whole Blood 213 mg/dL (70-110)
[2023-12-22] MEDS: FUROSEMIDE 100 MG in SODIUM CHLORIDE 0.9% 90 ML IV SCH (17:30)
--- NOTE | 2023-12-22 17:32 | XR ---
EXAMINATION TYPE: XR chest 1V portable DATE OF EXAM: 12/22/2023 5:26 PM CLINICAL INDICATION:Female, 73 years old with history of increased o2 demands; [facility] COMPARISON: Chest radiographs from 12/22/2023 TECHNIQUE: XR chest 1V portable Frontal view of the chest. FINDINGS: Lungs/Pleura: Prominent interstitial lung markings are seen scattered throughout the lungs. No eviden ce of focal consolidation, pneumothorax or pleural effusion. Pulmonary vascularity: Similar haziness of lungs suggestive of pulmonary vasculature congestion. Heart/mediastinum: Cardiomediastinal silhouette is enlarged and stable. Left atrial appendage occlusi on device is present. Musculoskeletal: No acute osseous pathology. IMPRESSION: Similar haziness of the lungs is likely secondary to pulmonary vascular congestion. Correlate with se rum BNP.
[2023-12-22 18:05] LABS: Glucose,Whole Blood 180 mg/dL (70-110)
[2023-12-22 18:14] LABS: ABG Base Excess 5.3 mmol/L; ABG HCO3 30 mmol/L (21-25); ABG Oxygen Saturation 91.4 % (94-97); ABG PCO2 44 mmHg (35-45); ABG PH 7.44 (7.35-7.45); ABG PO2 63 mmHg (83-108); ABG TCO2 31 mmol/L (19-24); Allen Test Performed? Yes
[2023-12-22 19:00] LABS: Glucose,Whole Blood 157 mg/dL (70-110)
[2023-12-22 20:27] LABS: Glucose,Whole Blood 166 mg/dL (70-110)
[2023-12-22 21:18] LABS: Glucose,Whole Blood 176 mg/dL (70-110)
[2023-12-22 22:20] LABS: Glucose,Whole Blood 146 mg/dL (70-110)
[2023-12-22] MEDS: METOPROLOL TARTRATE 5 MG/5 ML VIAL IVP PRN (22:56)
[2023-12-23 00:47] LABS: Glucose,Whole Blood 186 mg/dL (70-110)
[2023-12-23 01:03] LABS: ABG Base Excess 14.4 mmol/L; ABG HCO3 36 mmol/L (21-25); ABG Oxygen Saturation 99.1 % (94-97); ABG PCO2 36 mmHg (35-45); ABG PO2 114 mmHg (83-108); ABG TCO2 37 mmol/L (19-24); Allen Test Performed? Yes
[2023-12-23 01:51] LABS: ABG PH 7.61 (7.35-7.45)
[2023-12-23 02:02] LABS: Glucose,Whole Blood 217 mg/dL (70-110)
[2023-12-23 02:12] LABS: ABG Base Excess 13.4 mmol/L; ABG HCO3 36 mmol/L (21-25); ABG Oxygen Saturation 99.7 % (94-97); ABG PCO2 40 mmHg (35-45); ABG PO2 337 mmHg (83-108); ABG TCO2 37 mmol/L (19-24)
[2023-12-23 02:14] LABS: ABG PH 7.56 (7.35-7.45); Allen Test Performed? no
--- NOTE | 2023-12-23 02:33 | XR ---
EXAM: XR Chest, 1 View CLINICAL HISTORY: ITS.REASON XR Reason: tube placement TECHNIQUE: Frontal view of the chest. COMPARISON: No relevant prior studies available. IMPRESSION: ET tube in good position. NG tube enters into the stomach
[2023-12-23] MEDS: propofoL 100 ML IV ONE ×2 (03:24→03:25)
[2023-12-23 03:46] LABS: Glucose,Whole Blood 229 mg/dL (70-110)
[2023-12-23 04:53] LABS: Glucose,Whole Blood 208 mg/dL (70-110)
[2023-12-23] MEDS: ACETAMINOPHEN IV (For NPO) 1,000 MG in EMPTY BAG 1 BAG IVPB SCH (05:01)
[2023-12-23 05:39] LABS: Anisocytosis Slight; HCT 35.8 % (34.0-46.0); HGB 10.6 gm/dL (11.4-16.0); Hypochromasia Marked; MCH 21.2 pg (25.0-35.0); MCHC 29.5 g/dL (31.0-37.0); MCV 71.8 fL (80.0-100.0); Mean Platelet Volume 9.8; Microcytosis Marked; Platelet Count 250 k/uL (150-450); RBC 4.99 m/uL (3.80-5.40); RDW 19.7 % (11.5-15.5)
[2023-12-23 05:48] LABS: ABG Base Excess 15.8 mmol/L; ABG HCO3 39 mmol/L (21-25); ABG Oxygen Saturation 98.4 % (94-97); ABG PCO2 47 mmHg (35-45); ABG PH 7.52 (7.35-7.45); ABG PO2 130 mmHg (83-108); ABG TCO2 40 mmol/L (19-24)
[2023-12-23 06:12] LABS: African American GFR (CKD) 48 (>60 ml/min/1.73 sqM); Anion Gap 4 mmol/L; Blood Urea Nitrogen 67 mg/dL (7-17); Calcium 8.3 mg/dL (8.4-10.2); Carbon Dioxide 40 mmol/L (22-30); Chloride 106 mmol/L (98-107); Glucose 207 mg/dL (74-99); Non-African American GFR(CKD) 41 (>60 ml/min/1.73 sqM); Sodium 150 mmol/L (137-145)
[2023-12-23 06:15] LABS: Potassium 2.5 mmol/L (3.5-5.1)
[2023-12-23 06:15] LABS: Allen Test Performed? no
[2023-12-23 06:28] LABS: Glucose,Whole Blood 188 mg/dL (70-110)
[2023-12-23] MEDS: POTASSIUM BICARBONATE/CIT AC 20 MEQ TABLET.EFF PO SCH (06:39)
[2023-12-23] MEDS: POTASSIUM CHLORIDE 20 MEQ in WATER FOR INJECTION 1 100ML.BAG IVPB SCH (06:39)
[2023-12-23 07:08] LABS: Glucose,Whole Blood 156 mg/dL (70-110)
[2023-12-23 08:11] LABS: Glucose,Whole Blood 108 mg/dL (70-110)
--- NOTE | 2023-12-23 08:41 | P.PN ---
Subjective Progress Note Date: 12/23/23 On 12/18/2023, the patient is being seen in follow-up on the medical floor. The patient was found to be in significant degree of respiratory distress and the patient was using some accessory muscles of breathing. She was having frequent coughing episode and she was unable to catch her breath in between those coughing episodes. She was still responsive and communicating. At that point, I made recommendations to transfer this patient to the intensive care unit for further monitoring. Within 20 minutes, the patient became more diaphoretic, lethargic, quite obtunded and at that point, the patient had to be intubated and placed on the mechanical ventilator. I personally intubated the patient in the intensive care unit. I have her on a tidal volume of 350, rate of 24 with an FiO2 of 100% with a PEEP of 5. Postintubation chest x-ray showed extensive consolidation of the right lung and there is new airspace disease throughout the right lung along with some areas of consolidations and interstitial changes. Post NG tube insertion, the patient's stomach was decompressed and there was total amount of 500 cc of gastric material aspirated from the stomach. No reported aspiration. Obviously, the patient has multifocal pneumonia at this point in time more extensive in the right lung especially in the right middle and right lower lobe area. The white cell count at 7.1 with a hemoglobin 8.8, BUN is at 15 with a creatinine of 0.5 and sodium levels at 137. Potassium level is at 4.2. The patient was started on propofol for sedation. She was given also a dose of Nimbex during the intubation process 10 mg IV x 1. Blood gas are still pending. She may need a bronchoscopy and right lower lobe bronchoalveolar lavage. She remains on bronchodilators. She remains on steroids. Antibiotics will be modified and Zosyn will be added in combination with Zithromax. She has not required any pressors yet. She will be given a bolus of 1 L and following that she will be started on a maintenance of 100 cc an hour. Condition is obviously is critical at this point in time. Echocardiogram that was obtained on 10/19/2023 showed systolic heart failure with an underlying left ventricular ejection fraction of 30 to 35%. The patient also had mild RV dilatation, mild aortic regurgitation, mild to moderate mitral Regurgitation with a right ventricular systolic pressure of 32. He also has moderate degree of pulm hypertension. On today's evaluation of 12/19/2023, the patient is intubated on the mechanical ventilator. Overnight, the patient was kept intubated and the patient is sedated adequately with propofol which is running at 35 mcg/kg/min. As mentioned, the patient developed an extensive right lung pneumonia with respiratory failure requiring intubation mechanical ventilation. She currently has a #7.5 orotracheal tube. She is on assist-control mode of mechanical ventilation at a rate of 30, tidal volume of 350, FiO2 of 40% and a PEEP of 5. The peak airway pressure is around 25. The chest x-ray from today showing bilateral pleural effusion and significant consolidation of the right lung base and there is also some limited infiltration of the left lung base. I performed a bronchoscopy on this patient yesterday endobronchial lavage of the right lower lobe was obtained. The results are still pending for now. Meanwhile, the patient was covered with broad-spectrum antibiotic coverage and she is currently on a combination of Zosyn, Zithromax and vancomycin. The peak airway pressure is ranging between 21 and 23. The blood gas shows improvement in the pH is currently up to 7.36 with a pCO2 of 40 and pO2 of 189. Note that the patient was also given 2 doses of bicarb yesterday as the patient was quite acidotic. Rest of the blood work from today shows a WBC count of 9.9, hemoglobin of 9.1 and a platelet count of 288. Sodium is at 143,. Potassium level is at 3.8, BUN is at 25 with a creatinine of 0.9. LFTs are elevated with an AST of 525 and ALT of 448 and a bilirubin of 0.8. Her urine drug screen is positive for cannabis and the patient admits to smoke marijuana on a daily basis approximately 2 joints a day. She is on DuoNeb nebulized treatments [id number]. She is also on a combination of Perforomist and Pulmicort updrafts. She remains on IV Solu-Medrol. She is also on Lovenox 40 mg subcu for DVT prophylaxis. Feeding has not been started yet. Echocardiogram that was done on 10/19/2023 showed impaired LV function with an ejection fraction of 30 to 35%. We have not encountered any hypotension on this patient. She was quite tachycardic yesterday and she was placed briefly on norepinephrine yesterday for some limited hypotension and this ultimately improved and her current mean arterial pressure is around 74. She is on insulin drip running at 3 units an hour. Blood sugars under better control for now. On 12/20/2023, the patient remains intubated on the mechanical ventilator. Note that the patient is also sedated with a combination of fentanyl and propofol. The propofol is running at 35 mcg/kg/min and the patient is also on fentanyl 0.5 mcg/kg/h. Adequately sedated and the patient is synchronous with mechanical yoel tilator. She is currently at a rate of 30, tidal volume of 350, FiO2 is down to 30% with a PEEP of 5. The follow-up chest x-ray showsNo significant consolidation. There is improved in the right lower lobe consolidation. There is also cardiomegaly and CHF with interstitial edema and small bilateral pleural effusion. ET tube remains in a good location. As for the blood gas, the patient has a pH of 7.4 with a pCO2 of 38 and pO2 of 126 and this was on FiO2 of 40%. No significant orotracheal secretions. Bronchoscopy endobronchial done but results are still pending for now and there is no significant microbial growth. The blood cultures been negative. On blood work, the patient's white c ell count is 5.9 with a hemoglobin of 8.5 and a platelet count of 236. Sodium is 145, potassium is at 4, BUN is at 33 with a creatinine of 0.9. Viral screen has been negative. Legionella urine antigen has been negative. The patient is also receiving enteral feeding for nutritional support. The patient is currently on vital high-protein at the rate of 30 cc an hour and the patient is also on insulin drip at 5 units an hour. Overall fluid balance is +1.5 L over the past 24 hours. On 12/21/2023, the patient is being seen for a follow-up. The patient remains intubated and mechanically ventilated. She is calm and comfortable on a combination of propofol and fentanyl. Propofol is running at 35 mcg/kg/min and fentanyl is running at 0.5 mcg/kg/h. 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 This morning, she is on assist-control of 20, tidal volume of 350, FiO2 of 30% with a PEEP of 5. She is calm and comfortable and synchronous with mechanical ventilator. Chest x-ray showing cardiomegaly and pulm vascular congestion at the bronchoscopy endobronchial lavage that was done earlier yielded no microbial growth thus far. Based on that, I am going to discontinue the vancomycin and keep the patient on a combination of Zosyn and Zithromax. Otherwise, the fluid balance is positive and the patient will be started on more aggressive diuresis. The patient remains on vital high-protein at the rate of 32 cc an hour. The chest x-ray from today is consistent with CHF Along with some lower lobe consolidation bilaterally and the possibility of pneumonia cannot be completely excluded. The white cell count is 4.5, hemoglobin is 8.5 and a platelet count is at 245. Sodium is at 145 with a potassium level of 3.8, BUN is 43 with a creatinine of 1.0. LFTs are essentially improving and the AST is down to 222 and the ALT is down to 3019. Cultures are negative. Antibiotics are mentioned and they will include a combination of Zosyn Zithromax and vancomycin will be discontinued. Noted the patient was given a sedation holiday yesterday and during the process the patient had a an episode of SVT. The patient was given adenosine and following that the patient was placed on Cardizem and currently she is off Cardizem and the cardiac rhythm is back into normal sinus rhythm. No other significant events overnight. No fever or chills. No hemodynamic instability. She is known to have cardiomyopathy with impaired LV function. The patient remains on insulin drip at 6 units an hour. Afebrile. Hemodynamically stable. No pressors. 12/22/2023, the patient is being seen in follow-up. Remains intubated on the mechanical ventilator. This morning, she remains on propofol at 30 mcg/kg/min and fentanyl is at 0.5 mcg/kg/h. She is on assist-control mode with rate of 20, tidal volume of 350, FiO2 is down to 30% with a PEEP of 5. Peak airway pressures of 21. Blood gas showed a pH of 7.44 with a pCO2 of 45 and a pO2 of 99. The chest x-ray from today shows cardiomegaly and bilateral pleural effusions slightly worse on the right. There is no airspace disease or c onsolidations. The patient is hemodynamically stable. The patient is on no pressors. The white cell count of 5.3 with a hemoglobin of 9.2. Sodium is at 146 and a potassium level of 3.3, chloride is 111, bicarb is 31 with a BUN of 49 and a creatinine of 0.99. Bronchoscopy has not yielded any microbial growth. Vancomycin was discontinued yesterday the patient remains on a combination of Zosyn and and Zithromax. The patient is also being diuresed with IV Lasix 40 mg IV every 12 hours. Fluid balance is -3.9 L over the past 24 hours and the patient's volume status being further optimized. The patient is also on enteral feeding for nutritional support and she is on vital high-protein at the rate of 32 cc an hour. Insulin drip is at 6 units an hour. The patient has adequate blood sugar control. The patient is afebrile. No other significant events overnight. On 12/23/2023, the patient is being seen for a follow-up. The patient had a long and a lengthy day yesterday with many events occurring as the patient was weaned off initially of the sedation. She had adequate mentation. She had adequate weaning parameters. She was given a spontaneous breathing trial and following that the patient was extubated at this was probably sometime in the early afternoon. Initially she did well on nasal cannula. Subsequently, the patient became tachycardic, tachypneic, diaphoretic and she went to respiratory distress. She was also becoming significantly anxious. At that point, the pat ient was placed on a BiPAP to support her breathing. The subsequent blood gases were adequate. While on the BiPAP, the patient's pH was at 7.44 with pCO2 of 44 and pO2 of 63. At that point, the patient was started on Precedex which helped her quite a bit and improved her tachycardia and tachypnea. Her mentation was fluctuating and she was not fully coherent that she was following some simple c ommands. I decided not to reintubate the patient at this point. I diurese her aggressively and I put her on Lasix 10 mg an hour drip and the patient made excellent urine output and she has been negative fluid balance of at least 5.8 L over the past 24 hours. Nevertheless, at around 2 or 3 AM in the morning, the patient became again tachypneic. She became restless and significantly agitated. She was extubated and the patient had a repeat blood gas that showed a pH of 7.6 with a pCO2 of 36 and pO2 of 114 and this was done while her being on a BiPAP. Based on her overall condition, we decided to intubate the patient patient is currently intubated and on propofol which is running at 25 mc g/kg/min. She is calm and comfortable. Precedex has been discontinued. She has been Assist-control mode of mechanical ventilation at a rate of 20, tidal volume of 350, FiO2 of 50% with a PEEP of 5. His most recent blood gas shows a pH of 7.52 with a pCO2 of 47 and pO2 of 130. Her chest x-ray is showing lower lobe consolidation worse on the right. There is improvement in the volume status and in general. The orotracheal tube is in good location. The patient's blood work shows a component of hyponatremia with a sodium level of 150. Potassium is being replaced at 2.5, bicarb is at 40 BUN of 67 and a creatinine of 1.29. WBC count is at 8 with a hemoglobin 10.6 and a platelet count of 250. Enteral feeding for nutritional support is to be restarted. The patient was also started on low-dose norepinephrine overnight and currently she is on again 0.02 mcg/kg/min. Note that the previous bronchoscopy and the bronchial lavage yielded no microbial growth. As such, all cultures have been negative and the patient was taken off vancomycin yesterday. She remains on Zosyn. She also com pleted her course of Zithromax. Objective - Vital Signs Vital signs: Vital Signs Temp 100.2 F H 12/23/23 06:00 Pulse 90 12/23/23 08:23 Resp 23 12/23/23 07:00 BP 133/58 12/23/23 07:00 Pulse Ox 100 12/23/23 07:00 FiO2 50 12/23/23 08:18 Intake & Output 12/22/23 12/23/23 12/23/23 18:59 06:59 18:59 Intake Total 1297.705 708.573 129.089 Output Total 2112 5725 75 Balance -814.295 -5016.427 54.089 Weight 86.5 kg 80.4 kg Intake: IV 930 480 70 .9 @ KVO 330 380 20 Potassium Chloride 20 meq 100 50 In Water For Injection 1 100ml.bag @ 50 mls/hr IVPB Q2H [facility] Rx#: [id number] Potassium Chloride 20 meq 50 50 In Water For Injection 1 100ml.bag @ 50 mls/hr IVPB Q2H [facility] Rx#: [id number] Vancomycin 1,750 mg In 500 Sodium Chloride 0.9% 500 ml 500 ml @ 167 mls/hr IVPB HS [facility] Rx#:[id number] Intake, IV Titration 273.705 228.573 59.089 Amount Dexmedetomidine/0.9% NaCl 13.804 87.547 (Pmx) 400 mcg In Empty Bag 1 bag @ 0.2 MCG/KG/HR 4.325 mls/hr IV .[id number] [facility] Rx#:[id number] Furosemide 100 mg In 100 Sodium Chloride 0.9% 90 ml @ 10 MG/HR 10 mls/hr IV .Q10H [facility] Rx#: [id number] Insulin Regular 100 unit 73.324 35.638 19.117 In Sodium Chloride 0.9% 100 ml @ Titrate IV .Q0M [facility] Rx#:[id number] Norepinephrine 4 mg In 0.622 39.972 Sodium Chloride 0.9% 250 ml @ 0.03 MCG/KG/MIN 9. 332 mls/hr IV .Q24H [facility] Rx#:[id number] fentaNYL (PF). 1,000 mcg 101.173 4.766 In Sodium Chloride 0.9% 80 ml @ 0.5 MCG/KG/HR 4.4 mls/hr IV .[id number] [facility] Rx#:[id number] propofoL 1,000 mg In 85.404 Empty Bag 1 bag @ 15 MCG/ KG/MIN 7.348 mls/hr IV . [id number] [facility] Rx#:[id number] Tube Feeding 64 Other 30 Output: Urine 2112 5725 75 Other: Voiding Method Indwelling Catheter Indwelling Catheter ABP, PAP, CO, CI - Last Documented Arterial Blood Pressure 118/57 - Exam Sedated on propofol and, comfortable, intubated on mechanical ventilator. Orogastric and orotracheal tube are both in place. Head exam was generally normal. There was no scleral icterus or corneal arcus. Mucous membranes were moist. Neck supple. Full range of motion. No adenopathy thyromegaly or neck vein distention. Cardiovascular examination reveals regular rhythm rate. S1-S2 normal. No S3 or S4. No discernible murmur noted. Heart sounds are distant. Patient is tachycardic although the rhythm strip is showing some sinus rhythm Lungs reveal coarse bilateral inspiratory and expiratory rhonchi. No crackles. Marked diminished breath sounds along with diffuse expiratory wheezes throughout the lung powers bilaterally. Abdominal exam revealed normal bowel sounds. The abdomen was soft, non-tender, and without masses, organomegaly, or appreciable enlargement of the abdominal aorta. Examination of the extremities revealed easily palpable radial, femoral and pedal pulses. There was no cyanosis, clubbing or edema. Examination of the skin revealed no evidence of significant rashes, suspicious appearing nevi or other concerning lesions. Neurologically, the patient is a sedated and the patient does not have any focal neurological deficit. Cranial nerves are essentially intact. The patient is adequately sedated at this point in time on propofol. - Labs CBC & Chem 7: 12/23/23 05:30 12/23/23 05:30 Labs: Abnormal Lab Results - Last 24 Hours (Table) 12/22/23 12/22/23 12/22/23 Range/Units 09:07 10:01 11:09 Hgb (11.4-16.0) gm/dL MCV (80.0-100.0) fL MCH (25.0-35.0) pg MCHC (31.0-37.0) g/dL RDW (11.5-15.5) % ABG pH (7.35-7.45) ABG pCO2 (35-45) mmHg ABG pO2 (83-108) mmHg ABG HCO3 (21-25) mmol/L ABG Total CO2 (19-24) mmol/L ABG O2 Saturation (94-97) % ABG Lactic Acid (0.5-1.6) mmol/L Sodium (137-145) mmol/L Potassium (3.5-5.1) mmol/L Carbon Dioxide (22-30) mmol/L BUN (7-17) mg/dL Creatinine (0.52-1.04) mg/dL Glucose (74-99) mg/dL POC Glucose (mg/dL) 160 H 164 H 143 H (70-110) mg/dL Calcium (8.4-10.2) mg/dL 12/22/23 12/22/23 12/22/23 Range/Units 12:01 12:15 14:09 Hgb (11.4-16.0) gm/dL MCV (80.0-100.0) fL MCH (25.0-35.0) pg MCHC (31.0-37.0) g/dL RDW (11.5-15.5) % ABG pH 7.47 H (7.35-7.45) ABG pCO2 (35-45) mmHg ABG pO2 116 H (83-108) mmHg ABG HCO3 32 H (21-25) mmol/L ABG Total CO2 33 H (19-24) mmol/L ABG O2 Saturation 98.5 H (94-97) % ABG Lactic Acid (0.5-1.6) mmol/L Sodium (137-145) mmol/L Potassium (3.5-5.1) mmol/L Carbon Dioxide (22-30) mmol/L BUN (7-17) mg/dL Creatinine (0.52-1.04) mg/dL Glucose (74-99) mg/dL POC Glucose (mg/dL) 164 H 135 H (70-110) mg/dL Calcium (8.4-10.2) mg/dL 12/22/23 12/22/23 12/22/23 Range/Units 15:09 15:54 17:13 Hgb (11.4-16.0) gm/dL MCV (80.0-100.0) fL MCH (25.0-35.0) pg MCHC (31.0-37.0) g/dL RDW (11.5-15.5) % ABG pH (7.35-7.45) ABG pCO2 (35-45) mmHg ABG pO2 (83-108) mmHg ABG HCO3 (21-25) mmol/L ABG Total CO2 (19-24) mmol/L ABG O2 Saturation (94-97) % ABG Lactic Acid (0.5-1.6) mmol/L Sodium (137-145) mmol/L Potassium (3.5-5.1) mmol/L Carbon Dioxide (22-30) mmol/L BUN (7-17) mg/dL Creatinine (0.52-1.04) mg/dL Glucose (74-99) mg/dL POC Glucose (mg/dL) 193 H 218 H 213 H (70-110) mg/dL Calcium (8.4-10.2) mg/dL 12/22/23 12/22/23 12/22/23 Range/Units 18:04 18:12 18:59 Hgb (11.4-16.0) gm/dL MCV (80.0-100.0) fL MCH (25.0-35.0) pg MCHC (31.0-37.0) g/dL RDW (11.5-15.5) % ABG pH (7.35-7.45) ABG pCO2 (35-45) mmHg ABG pO2 63 L (83-108) mmHg ABG HCO3 30 H (21-25) mmol/L ABG Total CO2 31 H (19-24) mmol/L ABG O2 Saturation 91.4 L (94-97) % ABG Lactic Acid (0.5-1.6) mmol/L Sodium (137-145) mmol/L Potassium (3.5-5.1) mmol/L Carbon Dioxide (22-30) mmol/L BUN (7-17) mg/dL Creatinine (0.52-1.04) mg/dL Glucose (74-99) mg/dL POC Glucose (mg/dL) 180 H 157 H (70-110) mg/dL Calcium (8.4-10.2) mg/dL 12/22/23 12/22/23 12/22/23 Range/Units 20:26 21:17 22:18 Hgb (11.4-16.0) gm/dL MCV (80.0-100.0) fL MCH (25.0-35.0) pg MCHC (31.0-37.0) g/dL RDW (11.5-15.5) % ABG pH (7.35-7.45) ABG pCO2 (35-45) mmHg ABG pO2 (83-108) mmHg ABG HCO3 (21-25) mmol/L ABG Total CO2 (19-24) mmol/L ABG O2 Saturation (94-97) % ABG Lactic Acid (0.5-1.6) mmol/L Sodium (137-145) mmol/L Potassium (3.5-5.1) mmol/L Carbon Dioxide (22-30) mmol/L BUN (7-17) mg/dL Creatinine (0.52-1.04) mg/dL Glucose (74-99) mg/dL POC Glucose (mg/dL) 166 H 176 H 146 H (70-110) mg/dL Calcium (8.4-10.2) mg/dL 12/23/23 12/23/23 12/23/23 Range/Units 00:46 01:01 02:01 Hgb (11.4-16.0) gm/dL MCV (80.0-100.0) fL MCH (25.0-35.0) pg MCHC (31.0-37.0) g/dL RDW (11.5-15.5) % ABG pH 7.61 H* (7.35-7.45) ABG pCO2 (35-45) mmHg ABG pO2 114 H (83-108) mmHg ABG HCO3 36 H (21-25) mmol/L ABG Total CO2 37 H (19-24) mmol/L ABG O2 Saturation 99.1 H (94-97) % ABG Lactic Acid (0.5-1.6) mmol/L Sodium (137-145) mmol/L Potassium (3.5-5.1) mmol/L Carbon Dioxide (22-30) mmol/L BUN (7-17) mg/dL Creatinine (0.52-1.04) mg/dL Glucose (74-99) mg/dL POC Glucose (mg/dL) 186 H 217 H (70-110) mg/dL Calcium (8.4-10.2) mg/dL 12/23/23 12/23/23 12/23/23 Range/Units 02:08 03:44 04:51 Hgb (11.4-16.0) gm/dL MCV (80.0-100.0) fL MCH (25.0-35.0) pg MCHC (31.0-37.0) g/dL RDW (11.5-15.5) % ABG pH 7.56 H* (7.35-7.45) ABG pCO2 (35-45) mmHg ABG pO2 337 H (83-108) mmHg ABG HCO3 36 H (21-25) mmol/L ABG Total CO2 37 H (19-24) mmol/L ABG O2 Saturation 99.7 H (94-97) % ABG Lactic Acid (0.5-1.6) mmol/L Sodium (137-145) mmol/L Potassium (3.5-5.1) mmol/L Carbon Dioxide (22-30) mmol/L BUN (7-17) mg/dL Creatinine (0.52-1.04) mg/dL Glucose (74-99) mg/dL POC Glucose (mg/dL) 229 H 208 H (70-110) mg/dL Calcium (8.4-10.2) mg/dL 12/23/23 12/23/23 12/23/23 Range/Units 05:30 05:30 05:47 Hgb 10.6 L (11.4-16.0) gm/dL MCV 71.8 L (80.0-100.0) fL MCH 21.2 L (25.0-35.0) pg MCHC 29.5 L (31.0-37.0) g/dL RDW 19.7 H (11.5-15.5) % ABG pH 7.52 H (7.35-7.45) ABG pCO2 47 H (35-45) mmHg ABG pO2 130 H (83-108) mmHg ABG HCO3 39 H (21-25) mmol/L ABG Total CO2 40 H (19-24) mmol/L ABG O2 Saturation 98.4 H (94-97) % ABG Lactic Acid (0.5-1.6) mmol/L Sodium 150 H (137-145) mmol/L Potassium 2.5 L* (3.5-5.1) mmol/L Carbon Dioxide 40 H (22-30) mmol/L BUN 67 H (7-17) mg/dL Creatinine 1.29 H (0.52-1.04) mg/dL Glucose 207 H (74-99) mg/dL POC Glucose (mg/dL) (70-110) mg/dL Calcium 8.3 L (8.4-10.2) mg/dL 12/23/23 12/23/23 12/23/23 Range/Units 06:26 06:26 07:06 Hgb (11.4-16.0) gm/dL MCV (80.0-100.0) fL MCH (25.0-35.0) pg MCHC (31.0-37.0) g/dL RDW (11.5-15.5) % ABG pH (7.35-7.45) ABG pCO2 (35-45) mmHg ABG pO2 (83-108) mmHg ABG HCO3 (21-25) mmol/L ABG Total CO2 (19-24) mmol/L ABG O2 Saturation (94-97) % ABG Lactic Acid 1.8 H (0.5-1.6) mmol/L Sodium (137-145) mmol/L Potassium (3.5-5.1) mmol/L Carbon Dioxide (22-30) mmol/L BUN (7-17) mg/dL Creatinine (0.52-1.04) mg/dL Glucose (74-99) mg/dL POC Glucose (mg/dL) 188 H 156 H (70-110) mg/dL Calcium (8.4-10.2) mg/dL Microbiology - Last 24 Hours (Table) 12/17/23 08:34 Blood Culture - Final Blood 12/18/23 16:40 Legionella Culture - Preliminary Bronchial Washings - Right Assessment and Plan Plan: Acute hypoxic respiratory failure, currently intubated and mechanically ventilated, the patient developed an extensive right lower lobe pneumonia, currently covered broad-spectrum antibiotics. Subsequent chest x-ray was more consistent with CHF. As such, the patient's respiratory failure may be due to a combination of pneumonia and CHF. Bronchoscopy endobronchial lavage yielded no microbial growth. The patient will be started on more aggressive diuresis. The patient remains in negative fluid balance. Repeat chest x-ray from today showed cardiomegaly and bilateral pleural effusions slightly worse on the right. Nevertheless, the volume status has been adequately optimized. The patient was given a trial of extubation on 12/22/2023. Postextubation, she encountered respiratory difficulties and she was quite anxious. She did not have any significant oxygen desaturation or respiratory acidosis. Nevertheless, clinically she was extremely diaphoretic and tachypneic and restless and agitated. At that point, decision overnight was to reintubate the patient and she was reintubated on 12/23/2023. Adequate blood gases. Chest x-ray findings are still showing consolidation of the lower lobes more so on the right. Multifocal pneumonia with extensive consolidation and airspace disease involving the right middle/right lower lobe area. The right lower lobe consolidation is clearing and the patient's bronchoscopy endobronchial lavage has been completed and the results are still negative and the patient remains on a combination of Zosyn. The patient completed the course of Zithromax. Vancomycin was discontinued Acute hypernatremia, secondary to aggressive diuresis and the patient has been his significant amount of negative fluid balance over the past 24 to 48 hours Metabolic alkalosis secondary to diuresis Hypokalemia secondary to diuresis History of COPD exacerbation and the patient showing some limited bronchospasm and wheezing on today's exam examination, improved and the patient's peak airway pressure is down to 19 Marijuana smoker Severe respiratory distress and dyspnea secondary to above in addition to vigorous cough. Currently intubated on mechanical ventilator. History of coronary artery disease, status post bypass surgery. History of COPD, from previous tobacco use. Chronic systolic heart failure with an ejection fraction of 30 to 35% along with moderate MR and mild to moderate pulm hypertension with a PA pressure of 32 Sinus tachycardia versus MAT, heart rate is under better control and the patient is currently in his normal sinus rhythm with occasional PVCs History of diabetes mellitus, with a component of steroid-induced hyperglycemia, the patient is currently on insulin drip at 5 units an hour History of hyperlipidemia. History of hypertension. History of fibromyalgia. History of obstructive sleep apnea syndrome. History of polysubstance abuse. SVT, single episode, treated with adenosine and the patient was also given Cardizem drip. Currently in a sinus tachycardia. Plan Keep the patient intubated on mechanical ventilator. Dropped FiO2 down to 40%. No weaning trials to be done today. No sedation holiday for today n Discontinue on Lasix and continued Aldactone for now. Give the patient 1 dose of Diamox 500 mg IV every 12 hours x 2 Replace potassium Will change IV fluids gentle hydration with D5 water at rate of 50 Start enteral feeding for nutrition support with vital high-protein Awaiting the results of the bronchial lavage, the results are still negative Continue IV Zosyn and completed 7-day course Will continue bronchodilators Continue Perforomist and Pulmicort updrafts twice a day Continue IV Solu-Medrol and reduce the dose to 40 mg every 12 hours Insulin drip for blood sugar control if needed Continue vital high-protein for enteral feeding and nutritional support Lovenox 40 mg subcu for DVT prophylaxis Will continue to follow. This critical care evaluation was done more than 30 minutes. Time with Patient: Greater than 30
[2023-12-23 09:01] LABS: Glucose,Whole Blood 143 mg/dL (70-110)
[2023-12-23] MEDS: DEXTROSE 5% IN WATER 1,000 ML IV SCH (09:14)
--- NOTE | 2023-12-23 10:21 | P.PN ---
Subjective Progress Note Date: 12/23/23 Principal diagnosis: Shortness of breath The patient is a 73-year-old female patient with extensive cardiac history consistent of coronary artery disease with a prior revascularization with CABG and stenting with the last heart catheterization was performed in September 2023 and no need for revascularization advised at that point as well as cardiomyopathy with an ejection fraction between 30-35% as well as valvular heart disease with moderate mitral regurgitation. The patient presented to the hospital with shortness of breath associated with extensive cough and congestion. Initially she was admitted to the third floor but because she continues to have extensive cough associated with respiratory distress she was transferred to the intensive care unit and subsequently she was intubated and placed on mechanical ventilation. 12/19/2023 The patient was seen this morning. She is hemodynamically stable beside soft blood pressure. Currently she is not on vasopressors and she was weaned from vasopressors earlier today. Beside that she has been maintaining normal sinus mechanism. The possible diagnosis is pneumonia/sepsis and blood culture was sent. She doesn't seems in overt congestive heart failure overall. We'll follow-up with a chest x-ray from this morning. She was given one dose of Lasix last night. The last echo from September showed an EF between 30-35%. The examination is remarkable for regular rhythm with distant heart sounds and diminished breathing sounds bilaterally and no edema was noted. 12/20/2023 The patient was seen and evaluated this morning. She continues to be intubated on mechanical ventilation but hemodynamically stable with a soft blood pressure and mean pressure above 65 mmHg. She underwent bronchoscopy yesterday. The est x-ray showed right lower lobe infiltrate/pneumonia. She is on antibiotic. She has been maintaining normal sinus mechanism with ventricular bigeminy but her electrolytes including potassium was on the low side and that has been replaced. From a cardiac arrest or standpoint of view, would continue the current medical regimen and continue following up with the patient. The examination is remarkable for regular rhythm with diminished breathing sounds bilaterally January 19, 2024 The patient was seen and evaluated this morning. Hemodynamically she is stable with marginal pressure. Upon extubation yesterday she went into a wide-complex rhythm seems to be consistent with ventricular tachycardia, sustained versus nonsustained. She was given adenosine. She was started on Cardizem IV. Cu rrently she is an sinus mechanism. Because her pressure is marginal and going to stop the Cardizem and start the patient on metoprolol tartrate 12.5 mg p.o. twice daily. Her potassium was marginal and that was replaced. Will check her magnesium. Her ejection fraction is low at 35%. If she has that rhythm again she might benefit from amiodarone bolus and drip. Meanwhile she was given Lasix yesterday. The chest x-ray today appears to be better. December 22, 2023 The patient was seen and evaluated this morning. She continues to be intubated on mechanical ventilation but hemodynamically stable. Her potassium continues to be low. Currently she is on Lasix at 40 mg IV 3 times daily which ongoing to decrease to 40 mg IV twice daily and add Aldactone to the current medical regimen as a potassium sparing agent and she was on that medication for cardiomyopathy at home. Also she did have an episode of nonsustained ventricular tachycardia last night and with that being said I am going to i ncrease the dose of metoprolol. Consider adding lisinopril also to the current medical regimen for the cardiomyopathy down the line. Beside that her potassium was replaced. Magnesium was checked. The chest x-ray was reviewed. The blood work was reviewed as well. The examination showed stable vital signs with regular rhythm and distant heart sounds and diminished breathing sounds bilaterally. She has mild bilateral lower extremities edema December 23, 2023 The patient was seen and evaluated this morning. She was reintubated again because of increased breathing work. She was hemodynamically unstable and requiring norepinephrine but currently she is off norepinephrine. She has been maintaining normal sinus mechanism. She is on Aldactone and also she is on beta-marcos which we will continue at this point. Consider adding lisinopril to the current medical regimen once her pressure is better. The examination is remarkable for diminished breathing sounds bilaterally and regular rate and rhythm and no edema was noted. Assessment Acute respiratory distress Acute respiratory failure Pneumonia Coronary artery disease Cardiomyopathy Cardiac arrhythmia Valvular heart disease Plan Continue the current medical regimen Continue the current dose of beta-marcos Continue Aldactone Consider adding lisinopril once the pressure permit Follow-up with the patient Objective - Vital Signs Vital signs: Vital Signs Temp 98 F 12/23/23 08:00 Pulse 95 12/23/23 09:00 Resp 21 12/23/23 09:00 BP 133/58 12/23/23 07:00 Pulse Ox 100 12/23/23 09:00 FiO2 40 12/23/23 08:37 Intake & Output 12/22/23 12/23/23 12/23/23 18:59 06:59 18:59 Intake Total 1297.705 708.573 509.089 Output Total 2112 5785 75 Balance -814.295 -5016.427 434.089 Weight 86.5 kg 80.4 kg Intake: IV 930 480 240 0.9 KVO 10 D5W 330 380 80 Piperacillin-Tazobactam 3 100 .375 gm In Sodium Chloride 0.9% 100 ml @ 25 mls/hr IVPB Q8HR [facility] Rx# :[id number] Potassium Chloride 20 meq 100 50 In Water For Injection 1 100ml.bag @ 50 mls/hr IVPB Q2H [facility] Rx#: [id number] Potassium Chloride 20 meq 50 50 In Water For Injection 1 100ml.bag @ 50 mls/hr IVPB Q2H [facility] Rx#: [id number] Vancomycin 1,750 mg In 500 Sodium Chloride 0.9% 500 ml 500 ml @ 167 mls/hr IVPB HS [facility] Rx#:[id number] Intake, IV Titration 273.705 228.573 269.089 Amount Dexmedetomidine/0.9% NaCl 13.804 87.547 (Pmx) 400 mcg In Empty Bag 1 bag @ 0.2 MCG/KG/HR 4.325 mls/hr IV .Q23H8M [facility] Rx#:[id number] Furosemide 100 mg In 100 Sodium Chloride 0.9% 90 ml @ 10 MG/HR 10 mls/hr IV .Q10H [facility] Rx#: [id number] Insulin Regular 100 unit 73.324 35.638 19.117 In Sodium Chloride 0.9% 100 ml @ Titrate IV .Q0M [facility] Rx#:[id number] Norepinephrine 4 mg In 0.622 39.972 Sodium Chloride 0.9% 250 ml @ 0.03 MCG/KG/MIN 9. 332 mls/hr IV .Q24H [facility] Rx#:[id number] Potassium Chloride 20 meq 210 In Water For Injection 1 100ml.bag @ 50 mls/hr IVPB Q2H [facility] Rx#: [id number] fentaNYL (PF). 1,000 mcg 101.173 4.766 In Sodium Chloride 0.9% 80 ml @ 0.5 MCG/KG/HR 4.4 mls/hr IV .[id number] [facility] Rx#:[id number] propofoL 1,000 mg In 85.404 Empty Bag 1 bag @ 15 MCG/ KG/MIN 7.348 mls/hr IV . [id number] [facility] Rx#:[id number] Tube Feeding 64 Other 30 Output: Urine 1156 3743 75 Other: Voiding Method Indwelling Catheter Indwelling Catheter Indwelling Catheter ABP, PAP, CO, CI - Last Documented Arterial Blood Pressure 107/60 - Labs CBC & Chem 7: 12/23/23 05:30 12/23/23 05:30 Labs: Abnormal Lab Results - Last 24 Hours (Table) 12/22/23 12/22/23 12/22/23 Range/Units 11:09 12:01 12:15 Hgb (11.4-16.0) gm/dL MCV (80.0-100.0) fL MCH (25.0-35.0) pg MCHC (31.0-37.0) g/dL RDW (11.5-15.5) % ABG pH 7.47 H (7.35-7.45) ABG pCO2 (35-45) mmHg ABG pO2 116 H (83-108) mmHg ABG HCO3 32 H (21-25) mmol/L ABG Total CO2 33 H (19-24) mmol/L ABG O2 Saturation 98.5 H (94-97) % ABG Lactic Acid (0.5-1.6) mmol/L Sodium (137-145) mmol/L Potassium (3.5-5.1) mmol/L Carbon Dioxide (22-30) mmol/L BUN (7-17) mg/dL Creatinine (0.52-1.04) mg/dL Glucose (74-99) mg/dL POC Glucose (mg/dL) 143 H 164 H (70-110) mg/dL Calcium (8.4-10.2) mg/dL 12/22/23 12/22/23 12/22/23 Range/Units 14:09 15:09 15:54 Hgb (11.4-16.0) gm/dL MCV (80.0-100.0) fL MCH (25.0-35.0) pg MCHC (31.0-37.0) g/dL RDW (11.5-15.5) % ABG pH (7.35-7.45) ABG pCO2 (35-45) mmHg ABG pO2 (83-108) mmHg ABG HCO3 (21-25) mmol/L ABG Total CO2 (19-24) mmol/L ABG O2 Saturation (94-97) % ABG Lactic Acid (0.5-1.6) mmol/L Sodium (137-145) mmol/L Potassium (3.5-5.1) mmol/L Carbon Dioxide (22-30) mmol/L BUN (7-17) mg/dL Creatinine (0.52-1.04) mg/dL Glucose (74-99) mg/dL POC Glucose (mg/dL) 135 H 193 H 218 H (70-110) mg/dL Calcium (8.4-10.2) mg/dL 12/22/23 12/22/23 12/22/23 Range/Units 17:13 18:04 18:12 Hgb (11.4-16.0) gm/dL MCV (80.0-100.0) fL MCH (25.0-35.0) pg MCHC (31.0-37.0) g/dL RDW (11.5-15.5) % ABG pH (7.35-7.45) ABG pCO2 (35-45) mmHg ABG pO2 63 L (83-108) mmHg ABG HCO3 30 H (21-25) mmol/L ABG Total CO2 31 H (19-24) mmol/L ABG O2 Saturation 91.4 L (94-97) % ABG Lactic Acid (0.5-1.6) mmol/L Sodium (137-145) mmol/L Potassium (3.5-5.1) mmol/L Carbon Dioxide (22-30) mmol/L BUN (7-17) mg/dL Creatinine (0.52-1.04) mg/dL Glucose (74-99) mg/dL POC Glucose (mg/dL) 213 H 180 H (70-110) mg/dL Calcium (8.4-10.2) mg/dL 12/22/23 12/22/23 12/22/23 Range/Units 18:59 20:26 21:17 Hgb (11.4-16.0) gm/dL MCV (80.0-100.0) fL MCH (25.0-35.0) pg MCHC (31.0-37.0) g/dL RDW (11.5-15.5) % ABG pH (7.35-7.45) ABG pCO2 (35-45) mmHg ABG pO2 (83-108) mmHg ABG HCO3 (21-25) mmol/L ABG Total CO2 (19-24) mmol/L ABG O2 Saturation (94-97) % ABG Lactic Acid (0.5-1.6) mmol/L Sodium (137-145) mmol/L Potassium (3.5-5.1) mmol/L Carbon Dioxide (22-30) mmol/L BUN (7-17) mg/dL Creatinine (0.52-1.04) mg/dL Glucose (74-99) mg/dL POC Glucose (mg/dL) 157 H 166 H 176 H (70-110) mg/dL Calcium (8.4-10.2) mg/dL 12/22/23 12/23/23 12/23/23 Range/Units 22:18 00:46 01:01 Hgb (11.4-16.0) gm/dL MCV (80.0-100.0) fL MCH (25.0-35.0) pg MCHC (31.0-37.0) g/dL RDW (11.5-15.5) % ABG pH 7.61 H* (7.35-7.45) ABG pCO2 (35-45) mmHg ABG pO2 114 H (83-108) mmHg ABG HCO3 36 H (21-25) mmol/L ABG Total CO2 37 H (19-24) mmol/L ABG O2 Saturation 99.1 H (94-97) % ABG Lactic Acid (0.5-1.6) mmol/L Sodium (137-145) mmol/L Potassium (3.5-5.1) mmol/L Carbon Dioxide (22-30) mmol/L BUN (7-17) mg/dL Creatinine (0.52-1.04) mg/dL Glucose (74-99) mg/dL POC Glucose (mg/dL) 146 H 186 H (70-110) mg/dL Calcium (8.4-10.2) mg/dL 12/23/23 12/23/23 12/23/23 Range/Units 02:01 02:08 03:44 Hgb (11.4-16.0) gm/dL MCV (80.0-100.0) fL MCH (25.0-35.0) pg MCHC (31.0-37.0) g/dL RDW (11.5-15.5) % ABG pH 7.56 H* (7.35-7.45) ABG pCO2 (35-45) mmHg ABG pO2 337 H (83-108) mmHg ABG HCO3 36 H (21-25) mmol/L ABG Total CO2 37 H (19-24) mmol/L ABG O2 Saturation 99.7 H (94-97) % ABG Lactic Acid (0.5-1.6) mmol/L Sodium (137-145) mmol/L Potassium (3.5-5.1) mmol/L Carbon Dioxide (22-30) mmol/L BUN (7-17) mg/dL Creatinine (0.52-1.04) mg/dL Glucose (74-99) mg/dL POC Glucose (mg/dL) 217 H 229 H (70-110) mg/dL Calcium (8.4-10.2) mg/dL 12/23/23 12/23/23 12/23/23 Range/Units 04:51 05:30 05:30 Hgb 10.6 L (11.4-16.0) gm/dL MCV 71.8 L (80.0-100.0) fL MCH 21.2 L (25.0-35.0) pg MCHC 29.5 L (31.0-37.0) g/dL RDW 19.7 H (11.5-15.5) % ABG pH (7.35-7.45) ABG pCO2 (35-45) mmHg ABG pO2 (83-108) mmHg ABG HCO3 (21-25) mmol/L ABG Total CO2 (19-24) mmol/L ABG O2 Saturation (94-97) % ABG Lactic Acid (0.5-1.6) mmol/L Sodium 150 H (137-145) mmol/L Potassium 2.5 L* (3.5-5.1) mmol/L Carbon Dioxide 40 H (22-30) mmol/L BUN 67 H (7-17) mg/dL Creatinine 1.29 H (0.52-1.04) mg/dL Glucose 207 H (74-99) mg/dL POC Glucose (mg/dL) 208 H (70-110) mg/dL Calcium 8.3 L (8.4-10.2) mg/dL 12/23/23 12/23/23 12/23/23 Range/Units 05:47 06:26 06:26 Hgb (11.4-16.0) gm/dL MCV (80.0-100.0) fL MCH (25.0-35.0) pg MCHC (31.0-37.0) g/dL RDW (11.5-15.5) % ABG pH 7.52 H (7.35-7.45) ABG pCO2 47 H (35-45) mmHg ABG pO2 130 H (83-108) mmHg ABG HCO3 39 H (21-25) mmol/L ABG Total CO2 40 H (19-24) mmol/L ABG O2 Saturation 98.4 H (94-97) % ABG Lactic Acid 1.8 H (0.5-1.6) mmol/L Sodium (137-145) mmol/L Potassium (3.5-5.1) mmol/L Carbon Dioxide (22-30) mmol/L BUN (7-17) mg/dL Creatinine (0.52-1.04) mg/dL Glucose (74-99) mg/dL POC Glucose (mg/dL) 188 H (70-110) mg/dL Calcium (8.4-10.2) mg/dL 12/23/23 12/23/23 Range/Units 07:06 09:00 Hgb (11.4-16.0) gm/dL MCV (80.0-100.0) fL MCH (25.0-35.0) pg MCHC (31.0-37.0) g/dL RDW (11.5-15.5) % ABG pH (7.35-7.45) ABG pCO2 (35-45) mmHg ABG pO2 (83-108) mmHg ABG HCO3 (21-25) mmol/L ABG Total CO2 (19-24) mmol/L ABG O2 Saturation (94-97) % ABG Lactic Acid (0.5-1.6) mmol/L Sodium (137-145) mmol/L Potassium (3.5-5.1) mmol/L Carbon Dioxide (22-30) mmol/L BUN (7-17) mg/dL Creatinine (0.52-1.04) mg/dL Glucose (74-99) mg/dL POC Glucose (mg/dL) 156 H 143 H (70-110) mg/dL Calcium (8.4-10.2) mg/dL Microbiology - Last 24 Hours (Table) 12/17/23 08:34 Blood Culture - Final Blood 12/18/23 16:40 Legionella Culture - Preliminary Bronchial Washings - Right
[2023-12-23] MEDS ORDERED: DEXTROSE 50% SYRINGE 50 ML IVP PRN (10:59)
[2023-12-23 11:02] LABS: Glucose,Whole Blood 215 mg/dL (70-110)
--- NOTE | 2023-12-23 11:15 | P.PN ---
Subjective Progress Note Date: 12/23/23 Mari Moore, is a 73 year old female who presented to [facility] with a chief complaint of worsening shortness of breath. Patient reports she's had a nonproductive cough and generalized weakness and upper respiratory symptoms over the past few days. Patient has an extensive medical history including asthma, heart failure, COPD, coronary artery disease with previous history of CABG, diabetes mellitus, fibromyalgia, sleep apnea, ex- smoker and current marijuana user. Chest x-ray completed in ER showing no acute pulmonary infiltrate. Current vital signs showing temperature 97.6, heart rate 97, respiratory 18, blood pressure 98/49 with a pulse ox of 96% on room air patient testing negative for influenza RSV and COVID-19. UA negative. Troponins negative 2. BNP elevated at 2130. White blood cell within normal limits hemoglobin 8.9 at this time primary service is consulted. Will consult cardiology services in order 2-D echo. Iron studies ordered for anemia patient started on IV Solu-Medrol DuoNeb breathing treatments. At this time pulmonary and cardiology services consulted. Continue azithromycin for upper respiratory infection. Iron studies for low hemoglobin. On 12/18/2023 patient was seen and examined in the ICU her condition has worsened this morning, she was having severe continuous cough and shortness of breath, she had decrease in her O2 sat duration, she was transferred to intensive care unit, chest x-ray revealed significant worsening since x-ray done on 12/16/2023 with large right middle lobe and right lower lobe infiltrates, possibly related to aspiration. At this time patient is intubated, sedated started on mechanical ventilation, IV Zosyn was added to her medication regimen, pulmonary critical care following. On 12/19/2023 patient remains in the ICU on mechanical ventilation FiO2 40%. Patient remains on IV sedation. Levophed has been DC'd. Patient remains on IV steroids and IV antibiotics. Pulmonary and cardiology services following. ABGs this a.m. pH 7.36, pCO2 40, pO2 189, HCO3 23 and total CO2 24. On 12/20/2023 patient remains in the ICU on mechanical ventilation FiO2 30%. Liver enzymes trending down AST 222 ALT 390. ABGs this a.m. pH 7.40, pCO2 38, pO2 126 sodium bicarb 24. Patient remains on IV Zosyn and IV vancomycin. Patient dakotah on IV steroids. On 12/21/2023 patient was seen and examined in the ICU she is intubated sedated maintained on mechanical ventilation, vital exam of this morning reveals a temp erature of 99.4 heart rate 87 respiration 27 blood pressure 100/68 pulse ox 95% on FiO2 of 30% Arterial blood gas reveals pH 7.4 pCO2 39 CO2 94 liver enzymes remain elevated with ALT at 319 and AST at 222 patient is maintained on IV antibiotics Zosyn she also remains on pressure support. On 12/22/2023 patient was seen and examined in the ICU she is intubated sedated maintained on mechanical ventilation vital examination reveals a temperature of 99.4 pulse 92 respiration 20 blood pressure 106/69 pulse ox 97 percent on FiO2 of 30% she remains on assist control tidal volume 350 rate of 20 FiO2 30% and a PEEP of 5. Arterial blood gas reveals a pH of 7.44 pCO2 45 pO2 99 white blood count 5.3 hemoglobin 9.2 platelet count 213 BUN 49 creatinine 0.99 patient remains on pressure support with norepinephrine she remains on IV antibiotic Zosyn, pulmonary critical care, and cardiology are following. On 12/23/2023 patient was seen and examined in the ICU she is intubated sedated maintained on mechanical ventilation, vital exam reveals a temperature of 100.2, respiration 25 pulse 88 blood pressure 130/69 pulse ox 100% on FiO2 50% currently patient is back on assist control rate of 20 tidal volume 350 FiO2 50% with PEEP of 5 arterial blood gas reveals pH of 7.5 to pCO2 47 CO2 130 potassium is low at 2.5 and is being corrected. She is still having episodes of fever, she is maintained on IV Zosyn, repeat blood culture ordered, infectious disease consultation requested. Objective - Vital Signs Vital signs: Vital Signs Temp 98 F 12/23/23 08:00 Pulse 95 12/23/23 09:00 Resp 21 12/23/23 09:00 BP 133/58 12/23/23 07:00 Pulse Ox 100 12/23/23 09:00 FiO2 40 12/23/23 08:37 Intake & Output 12/22/23 12/23/23 12/23/23 18:59 06:59 18:59 Intake Total 1297.705 708.573 509.089 Output Total 5883 5743 75 Balance -814.295 -5016.427 434.089 Weight 86.5 kg 80.4 kg Intake: IV 930 480 240 0.9 KVO 10 D5W 330 380 80 Piperacillin-Tazobactam 3 100 .375 gm In Sodium Chloride 0.9% 100 ml @ 25 mls/hr IVPB Q8HR [facility] Rx# :[id number] Potassium Chloride 20 meq 100 50 In Water For Injection 1 100ml.bag @ 50 mls/hr IVPB Q2H [facility] Rx#: [id number] Potassium Chloride 20 meq 50 50 In Water For Injection 1 100ml.bag @ 50 mls/hr IVPB Q2H [facility] Rx#: [id number] Vancomycin 1,750 mg In 500 Sodium Chloride 0.9% 500 ml 500 ml @ 167 mls/hr IVPB HS [facility] Rx#:[id number] Intake, IV Titration 273.705 228.573 269.089 Amount Dexmedetomidine/0.9% NaCl 13.804 87.547 (Pmx) 400 mcg In Empty Bag 1 bag @ 0.2 MCG/KG/HR 4.325 mls/hr IV .Q23H8M [facility] Rx#:[id number] Furosemide 100 mg In 100 Sodium Chloride 0.9% 90 ml @ 10 MG/HR 10 mls/hr IV .Q10H [facility] Rx#: [id number] Insulin Regular 100 unit 73.324 35.638 19.117 In Sodium Chloride 0.9% 100 ml @ Titrate IV .Q0M [facility] Rx#:[id number] Norepinephrine 4 mg In 0.622 39.972 Sodium Chloride 0.9% 250 ml @ 0.03 MCG/KG/MIN 9. 332 mls/hr IV .Q24H [facility] Rx#:[id number] Potassium Chloride 20 meq 210 In Water For Injection 1 100ml.bag @ 50 mls/hr IVPB Q2H [facility] Rx#: [id number] fentaNYL (PF). 1,000 mcg 101.173 4.766 In Sodium Chloride 0.9% 80 ml @ 0.5 MCG/KG/HR 4.4 mls/hr IV .[id number] [facility] Rx#:[id number] propofoL 1,000 mg In 85.404 Empty Bag 1 bag @ 15 MCG/ KG/MIN 7.348 mls/hr IV . [id number] [facility] Rx#:[id number] Tube Feeding 64 Other 30 Output: Urine 2112 5772 75 Other: Voiding Method Indwelling Catheter Indwelling Catheter Indwelling Catheter ABP, PAP, CO, CI - Last Documented Arterial Blood Pressure 107/60 - Exam In general patient is intubated sedated maintained on mechanical ventilation Head normocephalic and atraumatic Neck supple no JVD no goiter Lungs exam reveals coarse crackles bilaterally no wheezing Heart regular rate and rhythm S1-S2, no rub or gallop Abdomen is soft nontender nondistended positive bowel sounds no hepatosplenomegaly Extremities no edema Neuro no gross focal deficit - Labs CBC & Chem 7: 12/23/23 05:30 12/23/23 05:30 Labs: Abnormal Lab Results - Last 24 Hours (Table) 12/22/23 12/22/23 12/22/23 Range/Units 11:09 12:01 12:15 Hgb (11.4-16.0) gm/dL MCV (80.0-100.0) fL MCH (25.0-35.0) pg MCHC (31.0-37.0) g/dL RDW (11.5-15.5) % ABG pH 7.47 H (7.35-7.45) ABG pCO2 (35-45) mmHg ABG pO2 116 H (83-108) mmHg ABG HCO3 32 H (21-25) mmol/L ABG Total CO2 33 H (19-24) mmol/L ABG O2 Saturation 98.5 H (94-97) % ABG Lactic Acid (0.5-1.6) mmol/L Sodium (137-145) mmol/L Potassium (3.5-5.1) mmol/L Carbon Dioxide (22-30) mmol/L BUN (7-17) mg/dL Creatinine (0.52-1.04) mg/dL Glucose (74-99) mg/dL POC Glucose (mg/dL) 143 H 164 H (70-110) mg/dL Calcium (8.4-10.2) mg/dL 12/22/23 12/22/23 12/22/23 Range/Units 14:09 15:09 15:54 Hgb (11.4-16.0) gm/dL MCV (80.0-100.0) fL MCH (25.0-35.0) pg MCHC (31.0-37.0) g/dL RDW (11.5-15.5) % ABG pH (7.35-7.45) ABG pCO2 (35-45) mmHg ABG pO2 (83-108) mmHg ABG HCO3 (21-25) mmol/L ABG Total CO2 (19-24) mmol/L ABG O2 Saturation (94-97) % ABG Lactic Acid (0.5-1.6) mmol/L Sodium (137-145) mmol/L Potassium (3.5-5.1) mmol/L Carbon Dioxide (22-30) mmol/L BUN (7-17) mg/dL Creatinine (0.52-1.04) mg/dL Glucose (74-99) mg/dL POC Glucose (mg/dL) 135 H 193 H 218 H (70-110) mg/dL Calcium (8.4-10.2) mg/dL 12/22/23 12/22/23 12/22/23 Range/Units 17:13 18:04 18:12 Hgb (11.4-16.0) gm/dL MCV (80.0-100.0) fL MCH (25.0-35.0) pg MCHC (31.0-37.0) g/dL RDW (11.5-15.5) % ABG pH (7.35-7.45) ABG pCO2 (35-45) mmHg ABG pO2 63 L (83-108) mmHg ABG HCO3 30 H (21-25) mmol/L ABG Total CO2 31 H (19-24) mmol/L ABG O2 Saturation 91.4 L (94-97) % ABG Lactic Acid (0.5-1.6) mmol/L Sodium (137-145) mmol/L Potassium (3.5-5.1) mmol/L Carbon Dioxide (22-30) mmol/L BUN (7-17) mg/dL Creatinine (0.52-1.04) mg/dL Glucose (74-99) mg/dL POC Glucose (mg/dL) 213 H 180 H (70-110) mg/dL Calcium (8.4-10.2) mg/dL 12/22/23 12/22/23 12/22/23 Range/Units 18:59 20:26 21:17 Hgb (11.4-16.0) gm/dL MCV (80.0-100.0) fL MCH (25.0-35.0) pg MCHC (31.0-37.0) g/dL RDW (11.5-15.5) % ABG pH (7.35-7.45) ABG pCO2 (35-45) mmHg ABG pO2 (83-108) mmHg ABG HCO3 (21-25) mmol/L ABG Total CO2 (19-24) mmol/L ABG O2 Saturation (94-97) % ABG Lactic Acid (0.5-1.6) mmol/L Sodium (137-145) mmol/L Potassium (3.5-5.1) mmol/L Carbon Dioxide (22-30) mmol/L BUN (7-17) mg/dL Creatinine (0.52-1.04) mg/dL Glucose (74-99) mg/dL POC Glucose (mg/dL) 157 H 166 H 176 H (70-110) mg/dL Calcium (8.4-10.2) mg/dL 12/22/23 12/23/23 12/23/23 Range/Units 22:18 00:46 01:01 Hgb (11.4-16.0) gm/dL MCV (80.0-100.0) fL MCH (25.0-35.0) pg MCHC (31.0-37.0) g/dL RDW (11.5-15.5) % ABG pH 7.61 H* (7.35-7.45) ABG pCO2 (35-45) mmHg ABG pO2 114 H (83-108) mmHg ABG HCO3 36 H (21-25) mmol/L ABG Total CO2 37 H (19-24) mmol/L ABG O2 Saturation 99.1 H (94-97) % ABG Lactic Acid (0.5-1.6) mmol/L Sodium (137-145) mmol/L Potassium (3.5-5.1) mmol/L Carbon Dioxide (22-30) mmol/L BUN (7-17) mg/dL Creatinine (0.52-1.04) mg/dL Glucose (74-99) mg/dL POC Glucose (mg/dL) 146 H 186 H (70-110) mg/dL Calcium (8.4-10.2) mg/dL 12/23/23 12/23/23 12/23/23 Range/Units 02:01 02:08 03:44 Hgb (11.4-16.0) gm/dL MCV (80.0-100.0) fL MCH (25.0-35.0) pg MCHC (31.0-37.0) g/dL RDW (11.5-15.5) % ABG pH 7.56 H* (7.35-7.45) ABG pCO2 (35-45) mmHg ABG pO2 337 H (83-108) mmHg ABG HCO3 36 H (21-25) mmol/L ABG Total CO2 37 H (19-24) mmol/L ABG O2 Saturation 99.7 H (94-97) % ABG Lactic Acid (0.5-1.6) mmol/L Sodium (137-145) mmol/L Potassium (3.5-5.1) mmol/L Carbon Dioxide (22-30) mmol/L BUN (7-17) mg/dL Creatinine (0.52-1.04) mg/dL Glucose (74-99) mg/dL POC Glucose (mg/dL) 217 H 229 H (70-110) mg/dL Calcium (8.4-10.2) mg/dL 12/23/23 12/23/23 12/23/23 Range/Units 04:51 05:30 05:30 Hgb 10.6 L (11.4-16.0) gm/dL MCV 71.8 L (80.0-100.0) fL MCH 21.2 L (25.0-35.0) pg MCHC 29.5 L (31.0-37.0) g/dL RDW 19.7 H (11.5-15.5) % ABG pH (7.35-7.45) ABG pCO2 (35-45) mmHg ABG pO2 (83-108) mmHg ABG HCO3 (21-25) mmol/L ABG Total CO2 (19-24) mmol/L ABG O2 Saturation (94-97) % ABG Lactic Acid (0.5-1.6) mmol/L Sodium 150 H (137-145) mmol/L Potassium 2.5 L* (3.5-5.1) mmol/L Carbon Dioxide 40 H (22-30) mmol/L BUN 67 H (7-17) mg/dL Creatinine 1.29 H (0.52-1.04) mg/dL Glucose 207 H (74-99) mg/dL POC Glucose (mg/dL) 208 H (70-110) mg/dL Calcium 8.3 L (8.4-10.2) mg/dL 12/23/23 12/23/23 12/23/23 Range/Units 05:47 06:26 06:26 Hgb (11.4-16.0) gm/dL MCV (80.0-100.0) fL MCH (25.0-35.0) pg MCHC (31.0-37.0) g/dL RDW (11.5-15.5) % ABG pH 7.52 H (7.35-7.45) ABG pCO2 47 H (35-45) mmHg ABG pO2 130 H (83-108) mmHg ABG HCO3 39 H (21-25) mmol/L ABG Total CO2 40 H (19-24) mmol/L ABG O2 Saturation 98.4 H (94-97) % ABG Lactic Acid 1.8 H (0.5-1.6) mmol/L Sodium (137-145) mmol/L Potassium (3.5-5.1) mmol/L Carbon Dioxide (22-30) mmol/L BUN (7-17) mg/dL Creatinine (0.52-1.04) mg/dL Glucose (74-99) mg/dL POC Glucose (mg/dL) 188 H (70-110) mg/dL Calcium (8.4-10.2) mg/dL 12/23/23 12/23/23 Range/Units 07:06 09:00 Hgb (11.4-16.0) gm/dL MCV (80.0-100.0) fL MCH (25.0-35.0) pg MCHC (31.0-37.0) g/dL RDW (11.5-15.5) % ABG pH (7.35-7.45) ABG pCO2 (35-45) mmHg ABG pO2 (83-108) mmHg ABG HCO3 (21-25) mmol/L ABG Total CO2 (19-24) mmol/L ABG O2 Saturation (94-97) % ABG Lactic Acid (0.5-1.6) mmol/L Sodium (137-145) mmol/L Potassium (3.5-5.1) mmol/L Carbon Dioxide (22-30) mmol/L BUN (7-17) mg/dL Creatinine (0.52-1.04) mg/dL Glucose (74-99) mg/dL POC Glucose (mg/dL) 156 H 143 H (70-110) mg/dL Calcium (8.4-10.2) mg/dL Microbiology - Last 24 Hours (Table) 12/17/23 08:34 Blood Culture - Final Blood 12/18/23 16:40 Legionella Culture - Preliminary Bronchial Washings - Right Assessment and Plan Assessment: 1. Acute exacerbation of COPD. 2. Acute on chronic exacerbation of systolic CHF 3. Anemia. Iron studies ordered 4. Cardiomyopathy with an EF of 30-35% 5. History of non-STEMI September 2023 status post cardiac cath showing 80% stenosis of the stent patent 6. History of coronary artery disease disease status post CABG 7. History of diabetes mellitus type II 8. History of essential hypertension 9. History of hyperlipidemia. 10. Acute hypoxic respiratory failure requiring intubation and mechanical ventilation on 12/18/2023 11. Right middle lobe and right lower lobe infiltrates, suggestive of p neumonia, possible aspiration. DVT prophylaxis Lovenox. GI prophylaxis Protonix Cardiology and pulmonary service is consulted. Patient started on IV Solu-Medrol Repeat labs ordered iron studies ordered
[2023-12-23] MEDS: INSULIN DETEMIR (LEVEMIR) 100 UNIT/ML SYR SQ SCH (11:19)
[2023-12-23] MEDS: INSULIN ASPART (NovoLOG) 100 UNIT/ML VIAL SQ SCH (11:20)
[2023-12-23 12:13] LABS: Appearance,Urine Clear (Clear); Bilirubin,Urine Negative (Negative); Blood,Urine Negative (Negative); Color,Urine Light Yellow; Glucose,Urine (UA) Negative (Negative); Ketones,Urine 1+ (Negative); Leukocyte Esterase,Urine Negative (Negative); Nitrite,Urine Negative (Negative); Protein,Urine Trace (Negative); Specific Gravity,Urine 1.023 (1.001-1.035); Urobilinogen,Urine <2.0 mg/dL (<2.0)
[2023-12-23 13:14] LABS: African American GFR (CKD) 41 (>60 ml/min/1.73 sqM); Anion Gap 4 mmol/L; Blood Urea Nitrogen 62 mg/dL (7-17); Calcium 8.3 mg/dL (8.4-10.2); Carbon Dioxide 37 mmol/L (22-30); Chloride 108 mmol/L (98-107); Glucose 242 mg/dL (74-99); Non-African American GFR(CKD) 36 (>60 ml/min/1.73 sqM); Potassium 3.7 mmol/L (3.5-5.1); Sodium 149 mmol/L (137-145)
[2023-12-23] MEDS: POTASSIUM BICARBONATE/CIT AC 20 MEQ TABLET.EFF PO ONE (14:09)
[2023-12-23 14:15] LABS: Glucose,Whole Blood 238 mg/dL (70-110)
[2023-12-23 15:49] LABS: Glucose,Whole Blood 193 mg/dL (70-110)
--- NOTE | 2023-12-23 19:25 | P.CONS ---
History of Present Illness - Reason for Consult Consult date: 12/23/23 Fever Requesting physician: Surinder Rodríguez - Chief Complaint Increasing shortness of breath x days - History of Present Illness Patient is a 73-year-old female with a past medical history significant for diabetes mellitus hypertension hyperlipidemia fibromyalgia COPD coronary disease patient presenting to the hospital about a week ago on 12/16/2023 for evaluation of chest congestion and cough and increasing shortness of breath patient did have a worsening of her respiratory system ended up getting intubated patient was extubated yesterday however currently intubated last night visit because of worsening respiratory distress patient was afebrile on presentation to the hospital however the patient's started spiking a fever last night and did have a temperature of 101 F at midnight patient also tachycardic but not hypotensive and no need for pressor support the patient is currently on a 40% FiO2 nursing staff mention trace secretions through her ET no significant purulence and no diarrhea has been reported patient did have a white count of 8.0 this morning creatinine is 1.45 patient did have a negative influenza RSV and COVID testing chest x-ray this morning ET tube in good position did not comment on the lung condition chest x-ray last night with the prominent interstitial marking scattered throughout the lung no evidence for focal consolidation most information has been obtained from review of the chart talking to nursing staff as patient is currently intubated on the vent and cannot provide any history Review of Systems Positive points has been mentioned in HPI complete review could not be obtained because patient intubated on the vent Past Medical History Past Medical History: Asthma, Coronary Artery Disease (CAD), Heart Failure, COPD, Diabetes Mellitus, Fibromyalgia, Hyperlipidemia, Hypertension, Musculoskeletal Disorder, Osteoarthritis (OA), Sleep Apnea/CPAP/BIPAP Additional Past Medical History / Comment(s): TESTED POSITIVE FOR LUPUS (STATES NO SYMPTOMS), DOES NOT USE CPAP, SEASONAL ALLERGIES, STATES 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 Poly substance abuse "when younger", 07/19/21 admitted for Acute delirium History of Any Multi-Drug Resistant Organisms: None Reported Past Surgical History: Cholecystectomy, Coronary Bypass/CABG, Heart Catheterization With Stent, Hernia Repair, Orthopedic Surgery, Tonsillectomy, Tubal Ligation Additional Past Surgical History / Comment(s): LEFT KNEE ARTHROSCOPY, BMT AND MYRINGOPLASTY, umbilical hernia repair, CABG 2020 Past Anesthesia/Blood Transfusion Reactions: No Reported Reaction Additional Past Anesthesia/Blood Transfusion Reaction / Comm: STATES AFTER LAST EAR SX (11/2013) HAD SORE MUSCLES AND WAS WEAK FOR 3-4 DAYS Date of Last Stent Placement:: 12/12/2022 Past Psychological History: No Psychological Hx Reported Smoking Status: Former smoker Past Alcohol Use History: None Reported Additional Past Alcohol Use History / Comment(s): SMOKED 1PPD, SMOKED 10 YEARS . QUIT SMOKING 30 YRS AGO OR MORE. Past Drug Use History: Marijuana Additional Drug Use History / Comment(s): Patient admitted 07/16/21 positive for methamphetamines, amphetamines, benzos, opiates, and marijuana. Patient states she was evicted from her apartment about 2 weeks ago because her son was arrested "for selling drugs" per patient. Pt states she has not done drugs in a couple years now. Patient states they did not live together and she doesnt know why she was - Past Family History Sister(s) Family Medical History: Cancer Brother(s) Family Medical History: Cancer Additional Family Medical History / Comment(s): brother had heart valve replacement Mother Family Medical History: Chest Pain / Angina, Diabetes Mellitus, Hyperlipidemia, Hypertension Father History Unknown: Yes Additional Family Medical History / Comment(s): , "had black lung" per patient, was a smoker Medications and Allergies Home Medications Medication Instructions Recorded Confirmed Type Albuterol Nebulized [Ventolin 2.5 mg INHALATION RT-Q4H PRN 07/22/23 12/17/23 History Nebulized] Ipratropium-Albuterol Nebulize 3 ml INHALATION RT-QID 07/22/23 12/17/23 History [Duoneb 0.5 mg-3 mg/3 ml Soln] Budesonide-Formot 160-4.5 Mcg 2 puff INHALATION RT-BID 30 Days 08/10/23 12/17/23 Rx [Symbicort 160-4.5 Mcg Inhaler] #1 each Aspirin 81 mg PO DAILY #30 tab 10/24/23 12/17/23 Rx Metoprolol Succinate (ER) [Toprol 25 mg PO BID #60 tab 10/24/23 12/17/23 Rx XL] Spironolactone [Aldactone] 25 mg PO DAILY #30 tab 10/24/23 12/17/23 Rx Ferrous Sulfate [Iron (65 MG 325 mg PO W/LUNCH 30 Days #30 tab 11/11/23 12/17/23 Rx Elemental)] lisinopriL [Zestril] 5 mg PO DAILY 30 Days #30 tab 11/11/23 12/17/23 Rx ALPRAZolam [Xanax] 0.5 mg PO Q6HR PRN 3 Days #12 tab 01/03/24 Rx Apixaban [Eliquis] 5 mg PO BID tab 01/03/24 Rx Benzonatate [Tessalon Perles] 200 mg PO TID PRN cap 01/03/24 Rx HYDROcodone/APAP 5-325MG [Rulo 1 each PO Q6HR PRN 3 Days #12 tab 01/03/24 Rx 5-325] INSULIN ASPART (NovoLOG) [NovoLOG 0 unit SQ ACHS each 01/03/24 Rx (formulary)] Insulin Detemir (Levemir) [Levemir] 15 unit SQ BID@0700,2100 each 01/03/24 Rx Nystatin 100,000 Unit/gm Powd 1 applic TOPICAL TID #0 each 01/03/24 Rx [Mycostatin Powder] Torsemide [Demadex] 20 mg PO DAILY tab 01/03/24 Rx predniSONE 10 mg PO DIRECTED 12 Days #30 01/03/24 Rx tab Allergies Allergy/AdvReac Type Severity Reaction Status Date / Time cephalexin Allergy Anaphylaxis Verified 12/17/23 11:48 cephalexin monohydrate Allergy Anaphylaxis Verified 12/17/23 11:48 [From Keflex] Sulfa (Sulfonamide Allergy Rash/Hives Verified 12/17/23 11:48 Antibiotics) amiodarone AdvReac Unknown Verified 12/26/23 16:51 Physical Exam Vitals: Vital Signs Temp Pulse Resp BP Pulse Ox FiO2 12/23/23 09:00 95 21 100 12/23/23 08:40 86 12/23/23 08:37 40 12/23/23 08:34 85 12/23/23 08:23 90 12/23/23 08:18 50 12/23/23 08:00 98 F 90 23 100 50 12/23/23 07:00 77 23 133/58 100 50 12/23/23 06:00 100.2 F H 98 25 H 130/69 100 50 12/23/23 05:00 77 27 H 121/71 100 12/23/23 04:21 50 12/23/23 04:00 78 25 H 119/60 100 50 12/23/23 03:00 82 19 118/62 99 50 12/23/23 02:40 50 12/23/23 02:00 103 H 18 110/65 100 100 12/23/23 01:47 100 12/23/23 01:28 100 12/23/23 01:00 98 19 131/68 100 12/23/23 00:00 101 F H 84 16 110/52 99 35 12/22/23 23:16 85 0 L 114/66 99 12/22/23 23:00 86 10 L 112/68 100 35 12/22/23 22:00 174 H 11 L 94/60 99 35 12/22/23 21:00 87 26 H 108/54 99 12/22/23 20:10 98 12/22/23 20:00 81 7 L 129/67 99 35 12/22/23 19:59 110 H 12/22/23 19:56 108 H 45 12/22/23 19:00 104 H 25 H 135/101 100 12/22/23 18:18 45 12/22/23 18:00 103 H 24 156/108 12/22/23 17:00 138 H 25 H 159/112 35 12/22/23 16:30 35 12/22/23 16:00 98.4 F 160 H 19 167/99 96 12/22/23 15:41 146 H 12/22/23 15:00 125 H 133/94 97 12/22/23 14:00 125/96 97 12/22/23 13:00 124 H 16 137/105 98 12/22/23 12:33 98 12/22/23 12:00 99.1 F 120 H 12 151/81 99 30 12/22/23 11:49 108 H 12/22/23 11:39 110 H 12/22/23 11:32 30 Intake and Output 12/22/23 12/23/23 12/23/23 22:59 06:59 14:59 Intake Total 336.293 546.621 509.089 Output Total 0688 5993 39 Lpndnml -0910.707 -6908.379 434.089 Intake: IV 240 360 240 0.9 KVO 10 D5W 240 260 80 Piperacillin-Tazobactam 3 100 .375 gm In Sodium Chloride 0.9% 100 ml @ 25 mls/hr IVPB Q8HR [facility] Rx# :[id number] Potassium Chloride 20 meq 50 In Water For Injection 1 100ml.bag @ 50 mls/hr IVPB Q2H [facility] Rx#: [id number] Potassium Chloride 20 meq 50 50 In Water For Injection 1 100ml.bag @ 50 mls/hr IVPB Q2H [facility] Rx#: [id number] Intake, IV Titration 96.293 186.621 269.089 Amount Dexmedetomidine/0.9% NaCl 55.756 45.595 (Pmx) 400 mcg In Empty Bag 1 bag @ 0.2 MCG/KG/HR 4.325 mls/hr IV .Q23H8M [facility] Rx#:[id number] Furosemide 100 mg In 100 Sodium Chloride 0.9% 90 ml @ 10 MG/HR 10 mls/hr IV .Q10H [facility] Rx#: [id number] Insulin Regular 100 unit 12.917 35.638 19.117 In Sodium Chloride 0.9% 100 ml @ Titrate IV .Q0M [facility] Rx#:[id number] Norepinephrine 4 mg In 0.622 39.972 Sodium Chloride 0.9% 250 ml @ 0.03 MCG/KG/MIN 9. 332 mls/hr IV .Q24H [facility] Rx#:[id number] Potassium Chloride 20 meq 210 In Water For Injection 1 100ml.bag @ 50 mls/hr IVPB Q2H [facility] Rx#: [id number] fentaNYL (PF). 1,000 mcg 27.620 4.766 In Sodium Chloride 0.9% 80 ml @ 0.5 MCG/KG/HR 4.4 mls/hr IV .[id number] [facility] Rx#:[id number] Output: Urine 1469 2925 75 Other: Voiding Method Indwelling Catheter Indwelling Catheter Indwelling Catheter Weight 80.4 kg ABP, PAP, CO, CI - Last 8 Hours Arterial Blood Pressure 107/60 Arterial Blood Pressure 120/64 Arterial Blood Pressure 118/57 Arterial Blood Pressure 114/54 Arterial Blood Pressure 112/61 Arterial Blood Pressure 98/49 GENERAL DESCRIPTION: Elderly female intubated on the vent HEENT: Shows Pallor , no scleral icterus. Oral mucous membrane is dry. NECK: Trachea central, no thyromegaly. LUNGS: Unlabored breathing. Decreased breath sounds at the base HEART: S1, S2, regular rate and rhythm. No loud murmur ABDOMEN: Soft, no tenderness , guarding or rigidity, no organomegaly EXTREMITIES: No edema of feet. SKIN: No rash, no masses palpable. NEUROLOGICAL: The patient is sedated on the vent Results CBC & Chem 7: 01/03/24 05:36 01/03/24 05:36 Labs: Abnormal Lab Results - Last 24 Hours (Table) 12/22/23 12/22/23 12/22/23 Range/Units 11:09 12:01 12:15 Hgb (11.4-16.0) gm/dL MCV (80.0-100.0) fL MCH (25.0-35.0) pg MCHC (31.0-37.0) g/dL RDW (11.5-15.5) % ABG pH 7.47 H (7.35-7.45) ABG pCO2 (35-45) mmHg ABG pO2 116 H (83-108) mmHg ABG HCO3 32 H (21-25) mmol/L ABG Total CO2 33 H (19-24) mmol/L ABG O2 Saturation 98.5 H (94-97) % ABG Lactic Acid (0.5-1.6) mmol/L Sodium (137-145) mmol/L Potassium (3.5-5.1) mmol/L Carbon Dioxide (22-30) mmol/L BUN (7-17) mg/dL Creatinine (0.52-1.04) mg/dL Glucose (74-99) mg/dL POC Glucose (mg/dL) 143 H 164 H (70-110) mg/dL Calcium (8.4-10.2) mg/dL 12/22/23 12/22/23 12/22/23 Range/Units 14:09 15:09 15:54 Hgb (11.4-16.0) gm/dL MCV (80.0-100.0) fL MCH (25.0-35.0) pg MCHC (31.0-37.0) g/dL RDW (11.5-15.5) % ABG pH (7.35-7.45) ABG pCO2 (35-45) mmHg ABG pO2 (83-108) mmHg ABG HCO3 (21-25) mmol/L ABG Total CO2 (19-24) mmol/L ABG O2 Saturation (94-97) % ABG Lactic Acid (0.5-1.6) mmol/L Sodium (137-145) mmol/L Potassium (3.5-5.1) mmol/L Carbon Dioxide (22-30) mmol/L BUN (7-17) mg/dL Creatinine (0.52-1.04) mg/dL Glucose (74-99) mg/dL POC Glucose (mg/dL) 135 H 193 H 218 H (70-110) mg/dL Calcium (8.4-10.2) mg/dL 12/22/23 12/22/23 12/22/23 Range/Units 17:13 18:04 18:12 Hgb (11.4-16.0) gm/dL MCV (80.0-100.0) fL MCH (25.0-35.0) pg MCHC (31.0-37.0) g/dL RDW (11.5-15.5) % ABG pH (7.35-7.45) ABG pCO2 (35-45) mmHg ABG pO2 63 L (83-108) mmHg ABG HCO3 30 H (21-25) mmol/L ABG Total CO2 31 H (19-24) mmol/L ABG O2 Saturation 91.4 L (94-97) % ABG Lactic Acid (0.5-1.6) mmol/L Sodium (137-145) mmol/L Potassium (3.5-5.1) mmol/L Carbon Dioxide (22-30) mmol/L BUN (7-17) mg/dL Creatinine (0.52-1.04) mg/dL Glucose (74-99) mg/dL POC Glucose (mg/dL) 213 H 180 H (70-110) mg/dL Calcium (8.4-10.2) mg/dL 12/22/23 12/22/23 12/22/23 Range/Units 18:59 20:26 21:17 Hgb (11.4-16.0) gm/dL MCV (80.0-100.0) fL MCH (25.0-35.0) pg MCHC (31.0-37.0) g/dL RDW (11.5-15.5) % ABG pH (7.35-7.45) ABG pCO2 (35-45) mmHg ABG pO2 (83-108) mmHg ABG HCO3 (21-25) mmol/L ABG Total CO2 (19-24) mmol/L ABG O2 Saturation (94-97) % ABG Lactic Acid (0.5-1.6) mmol/L Sodium (137-145) mmol/L Potassium (3.5-5.1) mmol/L Carbon Dioxide (22-30) mmol/L BUN (7-17) mg/dL Creatinine (0.52-1.04) mg/dL Glucose (74-99) mg/dL POC Glucose (mg/dL) 157 H 166 H 176 H (70-110) mg/dL Calcium (8.4-10.2) mg/dL 12/22/23 12/23/23 12/23/23 Range/Units 22:18 00:46 01:01 Hgb (11.4-16.0) gm/dL MCV (80.0-100.0) fL MCH (25.0-35.0) pg MCHC (31.0-37.0) g/dL RDW (11.5-15.5) % ABG pH 7.61 H* (7.35-7.45) ABG pCO2 (35-45) mmHg ABG pO2 114 H (83-108) mmHg ABG HCO3 36 H (21-25) mmol/L ABG Total CO2 37 H (19-24) mmol/L ABG O2 Saturation 99.1 H (94-97) % ABG Lactic Acid (0.5-1.6) mmol/L Sodium (137-145) mmol/L Potassium (3.5-5.1) mmol/L Carbon Dioxide (22-30) mmol/L BUN (7-17) mg/dL Creatinine (0.52-1.04) mg/dL Glucose (74-99) mg/dL POC Glucose (mg/dL) 146 H 186 H (70-110) mg/dL Calcium (8.4-10.2) mg/dL 12/23/23 12/23/23 12/23/23 Range/Units 02:01 02:08 03:44 Hgb (11.4-16.0) gm/dL MCV (80.0-100.0) fL MCH (25.0-35.0) pg MCHC (31.0-37.0) g/dL RDW (11.5-15.5) % ABG pH 7.56 H* (7.35-7.45) ABG pCO2 (35-45) mmHg ABG pO2 337 H (83-108) mmHg ABG HCO3 36 H (21-25) mmol/L ABG Total CO2 37 H (19-24) mmol/L ABG O2 Saturation 99.7 H (94-97) % ABG Lactic Acid (0.5-1.6) mmol/L Sodium (137-145) mmol/L Potassium (3.5-5.1) mmol/L Carbon Dioxide (22-30) mmol/L BUN (7-17) mg/dL Creatinine (0.52-1.04) mg/dL Glucose (74-99) mg/dL POC Glucose (mg/dL) 217 H 229 H (70-110) mg/dL Calcium (8.4-10.2) mg/dL 12/23/23 12/23/23 12/23/23 Range/Units 04:51 05:30 05:30 Hgb 10.6 L (11.4-16.0) gm/dL MCV 71.8 L (80.0-100.0) fL MCH 21.2 L (25.0-35.0) pg MCHC 29.5 L (31.0-37.0) g/dL RDW 19.7 H (11.5-15.5) % ABG pH (7.35-7.45) ABG pCO2 (35-45) mmHg ABG pO2 (83-108) mmHg ABG HCO3 (21-25) mmol/L ABG Total CO2 (19-24) mmol/L ABG O2 Saturation (94-97) % ABG Lactic Acid (0.5-1.6) mmol/L Sodium 150 H (137-145) mmol/L Potassium 2.5 L* (3.5-5.1) mmol/L Carbon Dioxide 40 H (22-30) mmol/L BUN 67 H (7-17) mg/dL Creatinine 1.29 H (0.52-1.04) mg/dL Glucose 207 H (74-99) mg/dL POC Glucose (mg/dL) 208 H (70-110) mg/dL Calcium 8.3 L (8.4-10.2) mg/dL 12/23/23 12/23/23 12/23/23 Range/Units 05:47 06:26 06:26 Hgb (11.4-16.0) gm/dL MCV (80.0-100.0) fL MCH (25.0-35.0) pg MCHC (31.0-37.0) g/dL RDW (11.5-15.5) % ABG pH 7.52 H (7.35-7.45) ABG pCO2 47 H (35-45) mmHg ABG pO2 130 H (83-108) mmHg ABG HCO3 39 H (21-25) mmol/L ABG Total CO2 40 H (19-24) mmol/L ABG O2 Saturation 98.4 H (94-97) % ABG Lactic Acid 1.8 H (0.5-1.6) mmol/L Sodium (137-145) mmol/L Potassium (3.5-5.1) mmol/L Carbon Dioxide (22-30) mmol/L BUN (7-17) mg/dL Creatinine (0.52-1.04) mg/dL Glucose (74-99) mg/dL POC Glucose (mg/dL) 188 H (70-110) mg/dL Calcium (8.4-10.2) mg/dL 12/23/23 12/23/23 12/23/23 Range/Units 07:06 09:00 11:00 Hgb (11.4-16.0) gm/dL MCV (80.0-100.0) fL MCH (25.0-35.0) pg MCHC (31.0-37.0) g/dL RDW (11.5-15.5) % ABG pH (7.35-7.45) ABG pCO2 (35-45) mmHg ABG pO2 (83-108) mmHg ABG HCO3 (21-25) mmol/L ABG Total CO2 (19-24) mmol/L ABG O2 Saturation (94-97) % ABG Lactic Acid (0.5-1.6) mmol/L Sodium (137-145) mmol/L Potassium (3.5-5.1) mmol/L Carbon Dioxide (22-30) mmol/L BUN (7-17) mg/dL Creatinine (0.52-1.04) mg/dL Glucose (74-99) mg/dL POC Glucose (mg/dL) 156 H 143 H 215 H (70-110) mg/dL Calcium (8.4-10.2) mg/dL Microbiology - Last 24 Hours (Table) 12/17/23 08:34 Blood Culture - Final Blood 12/18/23 16:40 Legionella Culture - Preliminary Bronchial Washings - Right Assessment and Plan (1) Aspiration pneumonia Status: Acute Code(s): J69.0 - PNEUMONITIS DUE TO INHALATION OF FOOD AND VOMIT SNOMED Code(s): 184323751 (2) Fever Status: Acute Code(s): R50.9 - FEVER, UNSPECIFIED SNOMED Code(s): 911517511 Plan: 1patient with a fever and this patient presented to the hospital with increasing shortness of breath was intubated got extubated and has to be reintubated because of worsening respiratory status with a fever subsequently possible pulmonary source as the patient abdominal soft on clinical examination and no evidence of any cellulitis or joint swelling 2-we will request for blood culture sputum culture CRP and procalcitonin 3patient to continue with the Zosyn while waiting for the workup to be completed. We will follow on clinical condition and cultures to further adjust medication if needed Thank you for this consultation we will follow the patient along with you Dictation was produced using [employer] dictation software. please excuse any grammatical, word or spelling errors. Time with Patient: Greater than 30
[2023-12-23 20:02] LABS: Glucose,Whole Blood 212 mg/dL (70-110)
[2023-12-23] MEDS: CHLORHEXIDINE GLUCONATE 15 ML CUP MUCOUS MEM SCH (20:43)
[2023-12-23] MEDS: methylPREDNISolone SOD SUCCI 40 MG/ML 1 ML VIAL IV SCH (20:43)
[2023-12-24 00:47] LABS: Glucose,Whole Blood 270 mg/dL (70-110)
[2023-12-24 04:55] LABS: Glucose,Whole Blood 264 mg/dL (70-110)
[2023-12-24 05:17] LABS: Anisocytosis Moderate; Basophils % (A) 0 %; Eosinophils # (A) 0.1 k/uL (0-0.7); Eosinophils % (A) 1 %; HCT 37.6 % (34.0-46.0); HGB 10.3 gm/dL (11.4-16.0); Hypochromasia Marked; Lymphocytes # (A) 0.5 k/uL (1.0-4.8); Lymphocytes % (A) 5 %; MCH 20.3 pg (25.0-35.0); MCHC 27.5 g/dL (31.0-37.0); Mean Platelet Volume 9.1; Microcytosis Moderate; Monocytes # (A) 0.5 k/uL (0-1.0); Monocytes % (A) 4 %; Neutrophils # (A) 9.7 k/uL (1.3-7.7); Neutrophils % (A) 90 %; Platelet Count 249 k/uL (150-450); RBC 5.09 m/uL (3.80-5.40); WBC 10.8 k/uL (3.8-10.6)
[2023-12-24 05:28] LABS: ABG Base Excess 7.6 mmol/L; ABG HCO3 32 mmol/L (21-25); ABG PCO2 48 mmHg (35-45); ABG PH 7.43 (7.35-7.45); ABG PO2 134 mmHg (83-108); ABG TCO2 33 mmol/L (19-24)
[2023-12-24 05:32] LABS: ALT 568 U/L (4-34); AST 139 U/L (14-36); African American GFR (CKD) 59 (>60 ml/min/1.73 sqM); Albumin 3.1 g/dL (3.5-5.0); Alkaline Phosphatase 55 U/L (38-126); Anion Gap 0 mmol/L; Blood Urea Nitrogen 51 mg/dL (7-17); Calcium 8.5 mg/dL (8.4-10.2); Carbon Dioxide 34 mmol/L (22-30); Chloride 112 mmol/L (98-107); Glucose 272 mg/dL (74-99); Non-African American GFR(CKD) 51 (>60 ml/min/1.73 sqM); Sodium 146 mmol/L (137-145); Total Bilirubin 0.8 mg/dL (0.2-1.3); Total Protein 5.5 g/dL (6.3-8.2)
[2023-12-24 05:58] LABS: Allen Test Performed? no
--- NOTE | 2023-12-24 08:09 | P.PN ---
Subjective Progress Note Date: 12/24/23 Mari Moore, is a 73 year old female who presented to [facility] with a chief complaint of worsening shortness of breath. Patient reports she's had a nonproductive cough and generalized weakness and upper respiratory symptoms over the past few days. Patient has an extensive medical history including asthma, heart failure, COPD, coronary artery disease with previous history of CABG, diabetes mellitus, fibromyalgia, sleep apnea, ex- smoker and current marijuana user. Chest x-ray completed in ER showing no acute pulmonary infiltrate. Current vital signs showing temperature 97.6, heart rate 97, respiratory 18, blood pressure 98/49 with a pulse ox of 96% on room air patient testing negative for influenza RSV and COVID-19. UA negative. Troponins negative 2. BNP elevated at 2130. White blood cell within normal limits hemoglobin 8.9 at this time primary service is consulted. Will consult cardiology services in order 2-D echo. Iron studies ordered for anemia patient started on IV Solu-Medrol DuoNeb breathing treatments. At this time pulmonary and cardiology services consulted. Continue azithromycin for upper respiratory infection. Iron studies for low hemoglobin. On 12/18/2023 patient was seen and examined in the ICU her condition has worsened this morning, she was having severe continuous cough and shortness of breath, she had decrease in her O2 sat duration, she was transferred to intensive care unit, chest x-ray revealed significant worsening since x-ray done on 12/16/2023 with large right middle lobe and right lower lobe infiltrates, possibly related to aspiration. At this time patient is intubated, sedated started on mechanical ventilation, IV Zosyn was added to her medication regimen, pulmonary critical care following. On 12/19/2023 patient remains in the ICU on mechanical ventilation FiO2 40%. Patient remains on IV sedation. Levophed has been DC'd. Patient remains on IV steroids and IV antibiotics. Pulmonary and cardiology services following. ABGs this a.m. pH 7.36, pCO2 40, pO2 189, HCO3 23 and total CO2 24. On 12/20/2023 patient remains in the ICU on mechanical ventilation FiO2 30%. Liver enzymes trending down AST 222 ALT 390. ABGs this a.m. pH 7.40, pCO2 38, pO2 126 sodium bicarb 24. Patient remains on IV Zosyn and IV vancomycin. Patient [place]ot[place] on IV steroids. On 12/21/2023 patient was seen and examined in the ICU she is intubated sedated maintained on mechanical ventilation, vital exam of this morning reveals a temp erature of 99.4 heart rate 87 respiration 27 blood pressure 100/68 pulse ox 95% on FiO2 of 30% Arterial blood gas reveals pH 7.4 pCO2 39 CO2 94 liver enzymes remain elevated with ALT at 319 and AST at 222 patient is maintained on IV antibiotics Zosyn she also remains on pressure support. On 12/22/2023 patient was seen and examined in the ICU she is intubated sedated maintained on mechanical ventilation vital examination reveals a temperature of 99.4 pulse 92 respiration 20 blood pressure 106/69 pulse ox 97 percent on FiO2 of 30% she remains on assist control tidal volume 350 rate of 20 FiO2 30% and a PEEP of 5. Arterial blood gas reveals a pH of 7.44 pCO2 45 pO2 99 white blood count 5.3 hemoglobin 9.2 platelet count 213 BUN 49 creatinine 0.99 patient remains on pressure support with norepinephrine she remains on IV antibiotic Zosyn, pulmonary critical care, and cardiology are following. On 12/23/2023 patient was seen and examined in the ICU she is intubated sedated maintained on mechanical ventilation, vital exam reveals a temperature of 100.2, respiration 25 pulse 88 blood pressure 130/69 pulse ox 100% on FiO2 50% currently patient is back on assist control rate of 20 tidal volume 350 FiO2 50% with PEEP of 5 arterial blood gas reveals pH of 7.5 to pCO2 47 CO2 130 potassium is low at 2.5 and is being corrected. She is still having episodes of fever, she is maintained on IV Zosyn, repeat blood culture ordered, infectious disease consultation requested. On 12/24/2023 patient was seen and examined in the ICU she is intubated sedated maintained on mechanical ventilation, nursing is reporting that patient has not had a bowel movement for several days, otherwise patient seems to be stable. Vital exam reveals a temperature of 99.3 pulse 84 respiration 22 blood pressure 104/55 pulse ox is 100% on mechanical ventilation. At this time patient is maintained on assist control tidal volume 350 rate of 20 FiO2 40% with a PEEP of 5 arterial blood gas this morning reveals a pH of 7.43 pCO2 48 pO2 134 BUN is elevated at 51 creatinine 1.09 there is elevation in liver enzymes with AST at 139 and a LT at 560 Objective - Vital Signs Vital signs: Vital Signs Temp 99.3 F 12/24/23 07:00 Pulse 84 12/24/23 07:00 Resp 22 12/24/23 07:00 BP 133/58 12/23/23 07:00 Pulse Ox 100 12/24/23 07:00 FiO2 40 12/24/23 07:00 Intake & Output 12/23/23 12/24/23 12/24/23 18:59 06:59 18:59 Intake Total 4118.394 1836.137 83 Output Total 1075 1175 60 Balance 483.572 521.137 23 Weight 78.1 kg Intake: IV 830 820 60 0.9 KVO 150 120 10 D5W 530 600 50 Piperacillin-Tazobactam 3 100 100 .375 gm In Sodium Chloride 0.9% 100 ml @ 25 mls/hr IVPB Q8HR [facility] Rx# :[id number] Potassium Chloride 20 meq 50 In Water For Injection 1 100ml.bag @ 50 mls/hr IVPB Q2H [facility] Rx#: [id number] Intake, IV Titration 728.572 533.137 Amount Insulin Regular 100 unit 19.117 In Sodium Chloride 0.9% 100 ml @ Titrate IV .Q0M [facility] Rx#:[id number] Norepinephrine 4 mg In 133.143 266.019 Sodium Chloride 0.9% 250 ml @ 0.03 MCG/KG/MIN 9. 332 mls/hr IV .Q24H [facility] Rx#:[id number] Piperacillin-Tazobactam 3 100 .375 gm In Sodium Chloride 0.9% 100 ml @ 25 mls/hr IVPB Q8HR [facility] Rx# :[id number] Potassium Chloride 20 meq 300 In Water For Injection 1 100ml.bag @ 50 mls/hr IVPB Q2H [facility] Rx#: [id number] fentaNYL (PF). 1,000 mcg 25.667 In Sodium Chloride 0.9% 80 ml @ 0.5 MCG/KG/HR 4.4 mls/hr IV .[id number] [facility] Rx#:[id number] propofoL 1,000 mg In 150.645 267.118 Empty Bag 1 bag @ 15 MCG/ KG/MIN 7.785 mls/hr IV . [id number] [facility] Rx#:[id number] Tube Feeding 253 23 Other 90 Output: Urine 1075 1175 60 Other: Voiding Method Indwelling Catheter Indwelling Catheter ABP, PAP, CO, CI - Last Documented Arterial Blood Pressure 104/55 - Exam In general patient is intubated sedated maintained on mechanical ventilation Head normocephalic and atraumatic Neck supple no JVD no goiter Lungs exam reveals coarse crackles bilaterally no wheezing Heart regular rate and rhythm S1-S2, no rub or gallop Abdomen is soft nontender nondistended positive bowel sounds no hepatosplen omegaly Extremities no edema Neuro no gross focal deficit - Labs CBC & Chem 7: 12/24/23 05:00 12/24/23 05:00 Labs: Abnormal Lab Results - Last 24 Hours (Table) 12/23/23 12/23/23 12/23/23 Range/Units 06:26 09:00 11:00 WBC (3.8-10.6) k/uL Hgb (11.4-16.0) gm/dL MCV (80.0-100.0) fL MCH (25.0-35.0) pg MCHC (31.0-37.0) g/dL RDW (11.5-15.5) % Neutrophils # (1.3-7.7) k/uL Lymphocytes # (1.0-4.8) k/uL ABG pCO2 (35-45) mmHg ABG pO2 (83-108) mmHg ABG HCO3 (21-25) mmol/L ABG Total CO2 (19-24) mmol/L ABG O2 Saturation (94-97) % ABG Lactic Acid 1.8 H (0.5-1.6) mmol/L Sodium (137-145) mmol/L Chloride (98-107) mmol/L Carbon Dioxide (22-30) mmol/L BUN (7-17) mg/dL Creatinine (0.52-1.04) mg/dL Glucose (74-99) mg/dL POC Glucose (mg/dL) 143 H 215 H (70-110) mg/dL Calcium (8.4-10.2) mg/dL AST (14-36) U/L ALT (4-34) U/L Total Protein (6.3-8.2) g/dL Albumin (3.5-5.0) g/dL Procalcitonin (0.02-0.09) ng/mL Urine Protein (Negative) Urine Ketones (Negative) 12/23/23 12/23/23 12/23/23 Range/Units 11:03 12:53 12:53 WBC (3.8-10.6) k/uL Hgb (11.4-16.0) gm/dL MCV (80.0-100.0) fL MCH (25.0-35.0) pg MCHC (31.0-37.0) g/dL RDW (11.5-15.5) % Neutrophils # (1.3-7.7) k/uL Lymphocytes # (1.0-4.8) k/uL ABG pCO2 (35-45) mmHg ABG pO2 (83-108) mmHg ABG HCO3 (21-25) mmol/L ABG Total CO2 (19-24) mmol/L ABG O2 Saturation (94-97) % ABG Lactic Acid (0.5-1.6) mmol/L Sodium 149 H (137-145) mmol/L Chloride 108 H (98-107) mmol/L Carbon Dioxide 37 H (22-30) mmol/L BUN 62 H (7-17) mg/dL Creatinine 1.45 H (0.52-1.04) mg/dL Glucose 242 H (74-99) mg/dL POC Glucose (mg/dL) (70-110) mg/dL Calcium 8.3 L (8.4-10.2) mg/dL AST (14-36) U/L ALT (4-34) U/L Total Protein (6.3-8.2) g/dL Albumin (3.5-5.0) g/dL Procalcitonin 0.31 H (0.02-0.09) ng/mL Urine Protein Trace H (Negative) Urine Ketones 1+ H (Negative) 12/23/23 12/23/23 12/23/23 Range/Units 14:13 15:47 20:01 WBC (3.8-10.6) k/uL Hgb (11.4-16.0) gm/dL MCV (80.0-100.0) fL MCH (25.0-35.0) pg MCHC (31.0-37.0) g/dL RDW (11.5-15.5) % Neutrophils # (1.3-7.7) k/uL Lymphocytes # (1.0-4.8) k/uL ABG pCO2 (35-45) mmHg ABG pO2 (83-108) mmHg ABG HCO3 (21-25) mmol/L ABG Total CO2 (19-24) mmol/L ABG O2 Saturation (94-97) % ABG Lactic Acid (0.5-1.6) mmol/L Sodium (137-145) mmol/L Chloride (98-107) mmol/L Carbon Dioxide (22-30) mmol/L BUN (7-17) mg/dL Creatinine (0.52-1.04) mg/dL Glucose (74-99) mg/dL POC Glucose (mg/dL) 238 H 193 H 212 H (70-110) mg/dL Calcium (8.4-10.2) mg/dL AST (14-36) U/L ALT (4-34) U/L Total Protein (6.3-8.2) g/dL Albumin (3.5-5.0) g/dL Procalcitonin (0.02-0.09) ng/mL Urine Protein (Negative) Urine Ketones (Negative) 12/24/23 12/24/23 12/24/23 Range/Units 00:45 04:52 05:00 WBC 10.8 H (3.8-10.6) k/uL Hgb 10.3 L (11.4-16.0) gm/dL MCV 74.0 L (80.0-100.0) fL MCH 20.3 L (25.0-35.0) pg MCHC 27.5 L (31.0-37.0) g/dL RDW 20.0 H (11.5-15.5) % Neutrophils # 9.7 H (1.3-7.7) k/uL Lymphocytes # 0.5 L (1.0-4.8) k/uL ABG pCO2 (35-45) mmHg ABG pO2 (83-108) mmHg ABG HCO3 (21-25) mmol/L ABG Total CO2 (19-24) mmol/L ABG O2 Saturation (94-97) % ABG Lactic Acid (0.5-1.6) mmol/L Sodium (137-145) mmol/L Chloride (98-107) mmol/L Carbon Dioxide (22-30) mmol/L BUN (7-17) mg/dL Creatinine (0.52-1.04) mg/dL Glucose (74-99) mg/dL POC Glucose (mg/dL) 270 H 264 H (70-110) mg/dL Calcium (8.4-10.2) mg/dL AST (14-36) U/L ALT (4-34) U/L Total Protein (6.3-8.2) g/dL Albumin (3.5-5.0) g/dL Procalcitonin (0.02-0.09) ng/mL Urine Protein (Negative) Urine Ketones (Negative) 12/24/23 12/24/23 Range/Units 05:00 05:26 WBC (3.8-10.6) k/uL Hgb (11.4-16.0) gm/dL MCV (80.0-100.0) fL MCH (25.0-35.0) pg MCHC (31.0-37.0) g/dL RDW (11.5-15.5) % Neutrophils # (1.3-7.7) k/uL Lymphocytes # (1.0-4.8) k/uL ABG pCO2 48 H (35-45) mmHg ABG pO2 134 H (83-108) mmHg ABG HCO3 32 H (21-25) mmol/L ABG Total CO2 33 H (19-24) mmol/L ABG O2 Saturation 99.0 H (94-97) % ABG Lactic Acid (0.5-1.6) mmol/L Sodium 146 H (137-145) mmol/L Chloride 112 H (98-107) mmol/L Carbon Dioxide 34 H (22-30) mmol/L BUN 51 H (7-17) mg/dL Creatinine 1.09 H (0.52-1.04) mg/dL Glucose 272 H (74-99) mg/dL POC Glucose (mg/dL) (70-110) mg/dL Calcium (8.4-10.2) mg/dL AST 139 H (14-36) U/L ALT 568 H (4-34) U/L Total Protein 5.5 L (6.3-8.2) g/dL Albumin 3.1 L (3.5-5.0) g/dL Procalcitonin (0.02-0.09) ng/mL Urine Protein (Negative) Urine Ketones (Negative) Assessment and Plan Assessment: 1. Acute exacerbation of COPD. 2. Acute on chronic exacerbation of systolic CHF 3. Anemia. Iron studies ordered 4. Cardiomyopathy with an EF of 30-35% 5. History of non-STEMI September 2023 status post cardiac cath showing 80% stenosis of the stent patent 6. History of coronary artery disease disease status post CABG 7. History of diabetes mellitus type II 8. History of essential hypertension 9. History of hyperlipidemia. 10. Acute hypoxic respiratory failure requiring intubation and mechanical ventilation on 12/18/2023 11. Right middle lobe and right lower lobe infiltrates, suggestive of pneumonia, possible aspiration. DVT prophylaxis Lovenox. GI prophylaxis Protonix Cardiology and pulmonary service is consulted. Patient started on IV Solu-Medrol Repeat labs ordered iron studies ordered
--- NOTE | 2023-12-24 08:37 | P.PN ---
Subjective Progress Note Date: 12/24/23 On 12/18/2023, the patient is being seen in follow-up on the medical floor. The patient was found to be in significant degree of respiratory distress and the patient was using some accessory muscles of breathing. She was having frequent coughing episode and she was unable to catch her breath in between those coughing episodes. She was still responsive and communicating. At that point, I made recommendations to transfer this patient to the intensive care unit for further monitoring. Within 20 minutes, the patient became more diaphoretic, lethargic, quite obtunded and at that point, the patient had to be intubated and placed on the mechanical ventilator. I personally intubated the patient in the intensive care unit. I have her on a tidal volume of 350, rate of 24 with an FiO2 of 100% with a PEEP of 5. Postintubation chest x-ray showed extensive consolidation of the right lung and there is new airspace disease throughout the right lung along with some areas of consolidations and interstitial changes. Post NG tube insertion, the patient's stomach was decompressed and there was total amount of 500 cc of gastric material aspirated from the stomach. No reported aspiration. Obviously, the patient has multifocal pneumonia at this point in time more extensive in the right lung especially in the right middle and right lower lobe area. The white cell count at 7.1 with a hemoglobin 8.8, BUN is at 15 with a creatinine of 0.5 and sodium levels at 137. Potassium level is at 4.2. The patient was started on propofol for sedation. She was given also a dose of Nimbex during the intubation process 10 mg IV x 1. Blood gas are still pending. She may need a bronchoscopy and right lower lobe bronchoalveolar lavage. She remains on bronchodilators. She remains on steroids. Antibiotics will be modified and Zosyn will be added in combination with Zithromax. She has not required any pressors yet. She will be given a bolus of 1 L and following that she will be started on a maintenance of 100 cc an hour. Condition is obviously is critical at this point in time. Echocardiogram that was obtained on 10/19/2023 showed systolic heart failure with an underlying left ventricular ejection fraction of 30 to 35%. The patient also had mild RV dilatation, mild aortic regurgitation, mild to moderate mitral Regurgitation with a right ventricular systolic pressure of 32. He also has moderate degree of pulm hypertension. On today's evaluation of 12/19/2023, the patient is intubated on the mechanical ventilator. Overnight, the patient was kept intubated and the patient is sedated adequately with propofol which is running at 35 mcg/kg/min. As mentioned, the patient developed an extensive right lung pneumonia with respiratory failure requiring intubation mechanical ventilation. She currently has a #7.5 orotracheal tube. She is on assist-control mode of mechanical ventilation at a rate of 30, tidal volume of 350, FiO2 of 40% and a PEEP of 5. The peak airway pressure is around 25. The chest x-ray from today showing bilateral pleural effusion and significant consolidation of the right lung base and there is also some limited infiltration of the left lung base. I performed a bronchoscopy on this patient yesterday endobronchial lavage of the right lower lobe was obtained. The results are still pending for now. Meanwhile, the patient was covered with broad-spectrum antibiotic coverage and she is currently on a combination of Zosyn, Zithromax and vancomycin. The peak airway pressure is ranging between 21 and 23. The blood gas shows improvement in the pH is currently up to 7.36 with a pCO2 of 40 and pO2 of 189. Note that the patient was also given 2 doses of bicarb yesterday as the patient was quite acidotic. Rest of the blood work from today shows a WBC count of 9.9, hemoglobin of 9.1 and a platelet count of 288. Sodium is at 143,. Potassium level is at 3.8, BUN is at 25 with a creatinine of 0.9. LFTs are elevated with an AST of 525 and ALT of 448 and a bilirubin of 0.8. Her urine drug screen is positive for cannabis and the patient admits to smoke marijuana on a daily basis approximately 2 joints a day. She is on DuoNeb nebulized treatments [id number]. She is also on a combination of Perforomist and Pulmicort updrafts. She remains on IV Solu-Medrol. She is also on Lovenox 40 mg subcu for DVT prophylaxis. Feeding has not been started yet. Echocardiogram that was done on 10/19/2023 showed impaired LV function with an ejection fraction of 30 to 35%. We have not encountered any hypotension on this patient. She was quite tachycardic yesterday and she was placed briefly on norepinephrine yesterday for some limited hypotension and this ultimately improved and her current mean arterial pressure is around 74. She is on insulin drip running at 3 units an hour. Blood sugars under better control for now. On 12/20/2023, the patient remains intubated on the mechanical ventilator. Note that the patient is also sedated with a combination of fentanyl and propofol. The propofol is running at 35 mcg/kg/min and the patient is also on fentanyl 0.5 mcg/kg/h. Adequately sedated and the patient is synchronous with mechanical yoel tilator. She is currently at a rate of 30, tidal volume of 350, FiO2 is down to 30% with a PEEP of 5. The follow-up chest x-ray showsNo significant consolidation. There is improved in the right lower lobe consolidation. There is also cardiomegaly and CHF with interstitial edema and small bilateral pleural effusion. ET tube remains in a good location. As for the blood gas, the patient has a pH of 7.4 with a pCO2 of 38 and pO2 of 126 and this was on FiO2 of 40%. No significant orotracheal secretions. Bronchoscopy endobronchial done but results are still pending for now and there is no significant microbial growth. The blood cultures been negative. On blood work, the patient's white c ell count is 5.9 with a hemoglobin of 8.5 and a platelet count of 236. Sodium is 145, potassium is at 4, BUN is at 33 with a creatinine of 0.9. Viral screen has been negative. Legionella urine antigen has been negative. The patient is also receiving enteral feeding for nutritional support. The patient is currently on vital high-protein at the rate of 30 cc an hour and the patient is also on insulin drip at 5 units an hour. Overall fluid balance is +1.5 L over the past 24 hours. On 12/21/2023, the patient is being seen for a follow-up. The patient remains intubated and mechanically ventilated. She is calm and comfortable on a combination of propofol and fentanyl. Propofol is running at 35 mcg/kg/min and fentanyl is running at 0.5 mcg/kg/h. The patient remains intubated on airplane mechanic al ventilator. This morning, she is on assist-control of 20, tidal volume of 350, FiO2 of 30% with a PEEP of 5. She is calm and comfortable and synchronous with mechanical ventilator. Chest x-ray showing cardiomegaly and pulm vascular congestion at the bronchoscopy endobronchial lavage that was done earlier yielded no microbial growth thus far. Based on that, I am going to discontinue the vancomycin and keep the patient on a combination of Zosyn and Zithromax. Otherwise, the fluid balance is positive and the patient will be started on more aggressive diuresis. The patient remains on vital high-protein at the rate of 32 cc an hour. The chest x-ray from today is consistent with CHF Along with some lower lobe consolidation bilaterally and the possibility of pneumonia cannot be completely excluded. The white cell count is 4.5, hemoglobin is 8.5 and a platelet count is at 245. Sodium is at 145 with a potassium level of 3.8, BUN is 43 with a creatinine of 1.0. LFTs are essentially improving and the AST is down to 222 and the ALT is down to 3019. Cultures are negative. Antibiotics are mentioned and they will include a combination of Zosyn Zithromax and vancomycin will be discontinued. Noted the patient was given a sedation holiday yesterday and during the process the patient had a an episode of SVT. The patient was given adenosine and following that the patient was placed on Cardizem and currently she is off Cardizem and the cardiac rhythm is back into normal sinus rhythm. No other significant events overnight. No fever or chills. No hemodynamic instability. She is known to have cardiomyopathy with impaired LV function. The patient remains on insulin drip at 6 units an hour. Afebrile. Hemodynamically stable. No pressors. 12/22/2023, the patient is being seen in follow-up. Remains intubated on the mechanical ventilator. This morning, she remains on propofol at 30 mcg/kg/min and fentanyl is at 0.5 mcg/kg/h. She is on assist-control mode with rate of 20, tidal volume of 350, FiO2 is down to 30% with a PEEP of 5. Peak airway pressures of 21. Blood gas showed a pH of 7.44 with a pCO2 of 45 and a pO2 of 99. The chest x-ray from today shows cardiomegaly and bilateral pleural effusions slightly worse on the right. There is no airspace disease or c onsolidations. The patient is hemodynamically stable. The patient is on no pressors. The white cell count of 5.3 with a hemoglobin of 9.2. Sodium is at 146 and a potassium level of 3.3, chloride is 111, bicarb is 31 with a BUN of 49 and a creatinine of 0.99. Bronchoscopy has not yielded any microbial growth. Vancomycin was discontinued yesterday the patient remains on a combination of Zosyn and and Zithromax. The patient is also being diuresed with IV Lasix 40 mg IV every 12 hours. Fluid balance is -3.9 L over the past 24 hours and the patient's volume status being further optimized. The patient is also on enteral feeding for nutritional support and she is on vital high-protein at the rate of 32 cc an hour. Insulin drip is at 6 units an hour. The patient has adequate blood sugar control. The patient is afebrile. No other significant events overnight. On 12/23/2023, the patient is being seen for a follow-up. The patient had a long and a lengthy day yesterday with many events occurring as the patient was weaned off initially of the sedation. She had adequate mentation. She had adequate weaning parameters. She was given a spontaneous breathing trial and following that the patient was extubated at this was probably sometime in the early afternoon. Initially she did well on nasal cannula. Subsequently, the patient became tachycardic, tachypneic, diaphoretic and she went to respiratory distress. She was also becoming significantly anxious. At that point, the pat ient was placed on a BiPAP to support her breathing. The subsequent blood gases were adequate. While on the BiPAP, the patient's pH was at 7.44 with pCO2 of 44 and pO2 of 63. At that point, the patient was started on Precedex which helped her quite a bit and improved her tachycardia and tachypnea. Her mentation was fluctuating and she was not fully coherent that she was following some simple c ommands. I decided not to reintubate the patient at this point. I diurese her aggressively and I put her on Lasix 10 mg an hour drip and the patient made excellent urine output and she has been negative fluid balance of at least 5.8 L over the past 24 hours. Nevertheless, at around 2 or 3 AM in the morning, the patient became again tachypneic. She became restless and significantly agitated. She was extubated and the patient had a repeat blood gas that showed a pH of 7.6 with a pCO2 of 36 and pO2 of 114 and this was done while her being on a BiPAP. Based on her overall condition, we decided to intubate the patient patient is currently intubated and on propofol which is running at 25 mc g/kg/min. She is calm and comfortable. Precedex has been discontinued. She has been Assist-control mode of mechanical ventilation at a rate of 20, tidal volume of 350, FiO2 of 50% with a PEEP of 5. His most recent blood gas shows a pH of 7.52 with a pCO2 of 47 and pO2 of 130. Her chest x-ray is showing lower lobe consolidation worse on the right. There is improvement in the volume status and in general. The orotracheal tube is in good location. The patient's blood work shows a component of hyponatremia with a sodium level of 150. Potassium is being replaced at 2.5, bicarb is at 40 BUN of 67 and a creatinine of 1.29. WBC count is at 8 with a hemoglobin 10.6 and a platelet count of 250. Enteral feeding for nutritional support is to be restarted. The patient was also started on low-dose norepinephrine overnight and currently she is on again 0.02 mcg/kg/min. Note that the previous bronchoscopy and the bronchial lavage yielded no microbial growth. As such, all cultures have been negative and the patient was taken off vancomycin yesterday. She remains on Zosyn. She also com pleted her course of Zithromax. On 12/24/2023, the patient remains intubated and mechanically ventilated. She failed initial trial of extubation. She was reintubated and the patient was kept on mechanical ventilator for the past 24 hours. Noted the extubation and reintubation was done on 12/22/2023. For now, the patient is sedated and she is currently on propofol running at 30 mcg/kg/min. She is being given a sedation holiday. The repeat chest x-ray from today shows marked clearing of the right lower lobe consolidation. The patient is on assist-control mode of mechanical ventilation of 20, tidal volume 350, FiO2 is at 40% with a PEEP of 5. The blood gases are adequate with a pH of 7.42 with a pCO2 of 48 and pO2 of 134. Hemodynamically, she is stable. She is running and low-dose norepinephrine at 0.03 mcg/kg/min. She has adequate urine output. The overall fluid balance over the past 24 hours has been +1 L. Note that the patient was given IV fluids in the form of D5 water regarding hyponatremia. Her sodium level is improved and currently is down to 146. Her acute kidney injury is also improved and the BUN is currently at 51 with a creatinine of 1.09. Potassium has been replaced and currently is up to 4.6. Blood sugars are adequate and the patient is currently off the insulin drip. Intensive antibiotic coverage, the patient remains on IV Zosyn. Based on her previous bronchoscopy and lavage, all of the micro blood cultures were negative. I discontinued the vancomycin. Patient is also off Zithromax. He is in the process of receiving sedation holiday this morning. Objective - Vital Signs Vital signs: Vital Signs Temp 99.3 F 12/24/23 07:00 Pulse 74 12/24/23 08:11 Resp 22 12/24/23 07:00 BP 133/58 12/23/23 07:00 Pulse Ox 100 12/24/23 07:00 FiO2 40 12/24/23 07:50 Intake & Output 12/23/23 12/24/23 12/24/23 18:59 06:59 18:59 Intake Total 8769.587 3281.137 83 Output Total 1075 1175 60 Balance 483.572 521.137 23 Weight 78.1 kg Intake: IV 830 820 60 0.9 KVO 150 120 10 D5W 530 600 50 Piperacillin-Tazobactam 3 100 100 .375 gm In Sodium Chloride 0.9% 100 ml @ 25 mls/hr IVPB Q8HR [facility] Rx# :[id number] Potassium Chloride 20 meq 50 In Water For Injection 1 100ml.bag @ 50 mls/hr IVPB Q2H [facility] Rx#: [id number] Intake, IV Titration 728.572 533.137 Amount Insulin Regular 100 unit 19.117 In Sodium Chloride 0.9% 100 ml @ Titrate IV .Q0M [facility] Rx#:[id number] Norepinephrine 4 mg In 133.143 266.019 Sodium Chloride 0.9% 250 ml @ 0.03 MCG/KG/MIN 9. 332 mls/hr IV .Q24H [facility] Rx#:[id number] Piperacillin-Tazobactam 3 100 .375 gm In Sodium Chloride 0.9% 100 ml @ 25 mls/hr IVPB Q8HR [facility] Rx# :[id number] Potassium Chloride 20 meq 300 In Water For Injection 1 100ml.bag @ 50 mls/hr IVPB Q2H [facility] Rx#: [id number] fentaNYL (PF). 1,000 mcg 25.667 In Sodium Chloride 0.9% 80 ml @ 0.5 MCG/KG/HR 4.4 mls/hr IV .[id number] [facility] Rx#:[id number] propofoL 1,000 mg In 150.645 267.118 Empty Bag 1 bag @ 15 MCG/ KG/MIN 7.785 mls/hr IV . [id number] [facility] Rx#:[id number] Tube Feeding 253 23 Other 90 Output: Urine 1075 1175 60 Other: Voiding Method Indwelling Catheter Indwelling Catheter ABP, PAP, CO, CI - Last Documented Arterial Blood Pressure 104/55 - Exam Sedated on propofol and, comfortable, intubated on mechanical ventilator. Orogastric and orotracheal tube are both in place. Head exam was generally normal. There was no scleral icterus or corneal arcus. Mucous membranes were moist. Neck supple. Full range of motion. No adenopathy thyromegaly or neck vein distention. Cardiovascular examination reveals regular rhythm rate. S1-S2 normal. No S3 or S4. No discernible murmur noted. Heart sounds are distant. Patient is tachycardic although the rhythm strip is showing some sinus rhythm Lungs reveal coarse bilateral inspiratory and expiratory rhonchi. No crackles. Marked diminished breath sounds along with diffuse expiratory wheezes throughout the lung powers bilaterally. Abdominal exam revealed normal bowel sounds. The abdomen was soft, non-tender, and without masses, organomegaly, or appreciable enlargement of the abdominal aorta. Examination of the extremities revealed easily palpable radial, femoral and pedal pulses. There was no cyanosis, clubbing or edema. Examination of the skin revealed no evidence of significant rashes, suspicious appearing nevi or other concerning lesions. Neurologically, the patient is a sedated and the patient does not have any focal neurological deficit. Cranial nerves are essentially intact. The patient is adequately sedated at this point in time on propofol. - Labs CBC & Chem 7: 12/24/23 05:00 12/24/23 05:00 Labs: Abnormal Lab Results - Last 24 Hours (Table) 12/23/23 12/23/23 12/23/23 Range/Units 09:00 11:00 11:03 WBC (3.8-10.6) k/uL Hgb (11.4-16.0) gm/dL MCV (80.0-100.0) fL MCH (25.0-35.0) pg MCHC (31.0-37.0) g/dL RDW (11.5-15.5) % Neutrophils # (1.3-7.7) k/uL Lymphocytes # (1.0-4.8) k/uL ABG pCO2 (35-45) mmHg ABG pO2 (83-108) mmHg ABG HCO3 (21-25) mmol/L ABG Total CO2 (19-24) mmol/L ABG O2 Saturation (94-97) % Sodium (137-145) mmol/L Chloride (98-107) mmol/L Carbon Dioxide (22-30) mmol/L BUN (7-17) mg/dL Creatinine (0.52-1.04) mg/dL Glucose (74-99) mg/dL POC Glucose (mg/dL) 143 H 215 H (70-110) mg/dL Calcium (8.4-10.2) mg/dL AST (14-36) U/L ALT (4-34) U/L Total Protein (6.3-8.2) g/dL Albumin (3.5-5.0) g/dL Procalcitonin (0.02-0.09) ng/mL Urine Protein Trace H (Negative) Urine Ketones 1+ H (Negative) 12/23/23 12/23/23 12/23/23 Range/Units 12:53 12:53 14:13 WBC (3.8-10.6) k/uL Hgb (11.4-16.0) gm/dL MCV (80.0-100.0) fL MCH (25.0-35.0) pg MCHC (31.0-37.0) g/dL RDW (11.5-15.5) % Neutrophils # (1.3-7.7) k/uL Lymphocytes # (1.0-4.8) k/uL ABG pCO2 (35-45) mmHg ABG pO2 (83-108) mmHg ABG HCO3 (21-25) mmol/L ABG Total CO2 (19-24) mmol/L ABG O2 Saturation (94-97) % Sodium 149 H (137-145) mmol/L Chloride 108 H (98-107) mmol/L Carbon Dioxide 37 H (22-30) mmol/L BUN 62 H (7-17) mg/dL Creatinine 1.45 H (0.52-1.04) mg/dL Glucose 242 H (74-99) mg/dL POC Glucose (mg/dL) 238 H (70-110) mg/dL Calcium 8.3 L (8.4-10.2) mg/dL AST (14-36) U/L ALT (4-34) U/L Total Protein (6.3-8.2) g/dL Albumin (3.5-5.0) g/dL Procalcitonin 0.31 H (0.02-0.09) ng/mL Urine Protein (Negative) Urine Ketones (Negative) 12/23/23 12/23/23 12/24/23 Range/Units 15:47 20:01 00:45 WBC (3.8-10.6) k/uL Hgb (11.4-16.0) gm/dL MCV (80.0-100.0) fL MCH (25.0-35.0) pg MCHC (31.0-37.0) g/dL RDW (11.5-15.5) % Neutrophils # (1.3-7.7) k/uL Lymphocytes # (1.0-4.8) k/uL ABG pCO2 (35-45) mmHg ABG pO2 (83-108) mmHg ABG HCO3 (21-25) mmol/L ABG Total CO2 (19-24) mmol/L ABG O2 Saturation (94-97) % Sodium (137-145) mmol/L Chloride (98-107) mmol/L Carbon Dioxide (22-30) mmol/L BUN (7-17) mg/dL Creatinine (0.52-1.04) mg/dL Glucose (74-99) mg/dL POC Glucose (mg/dL) 193 H 212 H 270 H (70-110) mg/dL Calcium (8.4-10.2) mg/dL AST (14-36) U/L ALT (4-34) U/L Total Protein (6.3-8.2) g/dL Albumin (3.5-5.0) g/dL Procalcitonin (0.02-0.09) ng/mL Urine Protein (Negative) Urine Ketones (Negative) 12/24/23 12/24/23 12/24/23 Range/Units 04:52 05:00 05:00 WBC 10.8 H (3.8-10.6) k/uL Hgb 10.3 L (11.4-16.0) gm/dL MCV 74.0 L (80.0-100.0) fL MCH 20.3 L (25.0-35.0) pg MCHC 27.5 L (31.0-37.0) g/dL RDW 20.0 H (11.5-15.5) % Neutrophils # 9.7 H (1.3-7.7) k/uL Lymphocytes # 0.5 L (1.0-4.8) k/uL ABG pCO2 (35-45) mmHg ABG pO2 (83-108) mmHg ABG HCO3 (21-25) mmol/L ABG Total CO2 (19-24) mmol/L ABG O2 Saturation (94-97) % Sodium 146 H (137-145) mmol/L Chloride 112 H (98-107) mmol/L Carbon Dioxide 34 H (22-30) mmol/L BUN 51 H (7-17) mg/dL Creatinine 1.09 H (0.52-1.04) mg/dL Glucose 272 H (74-99) mg/dL POC Glucose (mg/dL) 264 H (70-110) mg/dL Calcium (8.4-10.2) mg/dL AST 139 H (14-36) U/L ALT 568 H (4-34) U/L Total Protein 5.5 L (6.3-8.2) g/dL Albumin 3.1 L (3.5-5.0) g/dL Procalcitonin (0.02-0.09) ng/mL Urine Protein (Negative) Urine Ketones (Negative) 12/24/23 Range/Units 05:26 WBC (3.8-10.6) k/uL Hgb (11.4-16.0) gm/dL MCV (80.0-100.0) fL MCH (25.0-35.0) pg MCHC (31.0-37.0) g/dL RDW (11.5-15.5) % Neutrophils # (1.3-7.7) k/uL Lymphocytes # (1.0-4.8) k/uL ABG pCO2 48 H (35-45) mmHg ABG pO2 134 H (83-108) mmHg ABG HCO3 32 H (21-25) mmol/L ABG Total CO2 33 H (19-24) mmol/L ABG O2 Saturation 99.0 H (94-97) % Sodium (137-145) mmol/L Chloride (98-107) mmol/L Carbon Dioxide (22-30) mmol/L BUN (7-17) mg/dL Creatinine (0.52-1.04) mg/dL Glucose (74-99) mg/dL POC Glucose (mg/dL) (70-110) mg/dL Calcium (8.4-10.2) mg/dL AST (14-36) U/L ALT (4-34) U/L Total Protein (6.3-8.2) g/dL Albumin (3.5-5.0) g/dL Procalcitonin (0.02-0.09) ng/mL Urine Protein (Negative) Urine Ketones (Negative) Assessment and Plan Plan: Acute hypoxic respiratory failure, currently intubated and mechanically ventilated, the patient developed an extensive right lower lobe pneumonia, currently covered broad-spectrum antibiotics. Subsequent chest x-ray was more consistent with CHF. As such, the patient's respiratory failure may be due to a combination of pneumonia and CHF. Bronchoscopy endobronchial lavage yielded no microbial growth. The patient will be started on more aggressive diuresis. The patient remains in negative fluid balance. Repeat chest x-ray from today showed cardiomegaly and bilateral pleural effusions slightly worse on the right. Nevertheless, the volume status has been adequately optimized. The patient was given a trial of extubation on 12/22/2023. Postextubation, she encountered res piratory difficulties and she was quite anxious. She did not have any significant oxygen desaturation or respiratory acidosis. Nevertheless, clinically she was extremely diaphoretic and tachypneic and restless and agitated. At that point, decision overnight was to reintubate the patient and she was reintubated on 12/23/2023. The patient currently is on a mechanical ventilator. Chest x-ray shows marked clearing of the consolidation of the right lung base. There is improvement also in her volume status. Blood gas are also adequate. The patient is being taken off of sedation and constipation for another trial of extubation today. Multifocal pneumonia with extensive consolidation and airspace disease involving the right middle/right lower lobe area. The right lower lobe consolidation is clearing and the patient's bronchoscopy endobronchial lavage has been completed and the results are still negative and the patient remains on a combination of Zosyn. The patient completed the course of Zithromax. Vancomycin was discontinued and the most recent chest x-ray from 12/24/2023 showed significant clearing and all of the cultures have been negative thus far. Acute hypernatremia, secondary to aggressive diuresis improved and a sodium level is currently at 146 and the patient is currently on normal citrate of this is an hour Metabolic alkalosis secondary to diuresis, stable Hypokalemia secondary to diuresis, improved History of COPD exacerbation and the patient showing some limited bronchospasm and wheezing on today's exam examination, improved and the patient's peak airway pressure has dropped considerably and the patient is obviously a smoker spastic and wheezy Marijuana smoker Severe respiratory distress and dyspnea secondary to above in addition to vigorous cough. Currently intubated on mechanical ventilator. History of coronary artery disease, status post bypass surgery. History of COPD, from previous tobacco use. Chronic systolic heart failure with an ejection fraction of 30 to 35% along with moderate MR and mild to moderate pulm hypertension with a PA pressure of 32 Sinus tachycardia versus MAT, heart rate is under better control and the patient is currently in his normal sinus rhythm with occasional PVCs History of diabetes mellitus, with a component of steroid-induced hyperglycemia, the patient is currently on insulin drip at 5 units an hour History of hyperlipidemia. History of hypertension. History of fibromyalgia. History of obstructive sleep apnea syndrome. History of polysubstance abuse. SVT, single episode, treated with adenosine and the patient was also given Cardizem drip. Currently in a sinus tachycardia. Plan Keep the patient intubated on mechanical ventilator. Give another sedation holiday Keep diuretics on hold Potassium has been replaced IV fluids to KVO Start enteral feeding for nutrition support with vital high-protein Awaiting the results of the bronchial lavage, the results are still negative Continue IV Zosyn and completed 7-day course Will continue bronchodilators Continue Perforomist and Pulmicort updrafts twice a day Continue IV Solu-Medrol and reduce the dose to 40 mg every 12 hours I Levemir insulin 15 units twice a day along with a sliding scale coverage Sedation holiday in consideration for another extubation today if the patient is able to show adequate mentation and adequate weaning parameters. Lovenox 40 mg subcu for DVT prophylaxis Will continue to follow. This critical care evaluation was done more than 30 minutes. Time with Patient: Greater than 30
[2023-12-24] MEDS: INSULIN DETEMIR (LEVEMIR) 100 UNIT/ML SYR SQ SCH (09:21)
[2023-12-24 09:35] LABS: Glucose,Whole Blood 178 mg/dL (70-110)
[2023-12-24] MEDS: DEXMEDETOMIDINE/0.9% NACL(PMX) 400 MCG in EMPTY BAG 1 BAG IV SCH (09:44)
[2023-12-24] MEDS: NYSTATIN 100,000 UNIT/ML SUSP 500,000 UNIT/5 ML CUP PO SCH (09:46)
[2023-12-24] MEDS: NYSTATIN 100,000 UNIT/GM POWD 15 GM TOPICAL SCH (09:46)
--- NOTE | 2023-12-24 11:06 | XR ---
EXAM: XR chest 1V portable CLINICAL INDICATION:Female, 73 years old with history of mechanical ventilation; [facility] COMPARISON: 12/23/2023 and before TECHNIQUE: Chest single view. FINDINGS: Lines/tubes/devices: EKG leads and other extrinsic structures overlie the chest. ET tube tip about 4 cm above the nahun. NG/OG tube traverses below the diaphragm, extending into the left abdomen with t he tip beyond the field of view. Left atrial occlusion device, mediastinal clips and sternal wires. Cardiomediastinum: Cardiac silhouette appears stable, enlarged. Stable mediastinal silhouette. Atherosclerotic calcifications of the aorta. Vasculature: No increased pulmonary vasculature. Lungs/pleura: Interval improved interstitial and airspace opacities bilaterally, with smaller residual present. Pos sible small pleural effusions. No visualized pneumothorax. Bones/soft tissues: Bony thorax appears grossly unchanged as seen. Regional soft tissues appear unremarkable. IMPRESSION: 1. Cardiomegaly and postoperative changes. 2. Interval improved interstitial and airspace opacities bilaterally, with smaller residual present. Possible small pleural effusions.
[2023-12-24 11:07] LABS: ABG Base Excess 7.3 mmol/L; ABG HCO3 31 mmol/L (21-25); ABG PCO2 41 mmHg (35-45); ABG PH 7.48 (7.35-7.45); ABG PO2 123 mmHg (83-108); ABG TCO2 32 mmol/L (19-24)
[2023-12-24 11:12] LABS: ABG Oxygen Saturation 98.5 % (94-97)
[2023-12-24 11:51] LABS: Glucose,Whole Blood 173 mg/dL (70-110)
[2023-12-24 15:24] LABS: Glucose,Whole Blood 192 mg/dL (70-110)
[2023-12-24] MEDS ORDERED: NA PHOS,M-B/NA PHOS,DI-BA 133 ML ENEMA RECTAL PRN (15:45)
--- NOTE | 2023-12-24 16:25 | P.PN ---
Subjective Progress Note Date: 12/24/23 Principal diagnosis: Shortness of breath The patient is a 73-year-old female patient with extensive cardiac history consistent of coronary artery disease with a prior revascularization with CABG and stenting with the last heart catheterization was performed in September 2023 and no need for revascularization advised at that point as well as cardiomyopathy with an ejection fraction between 30-35% as well as valvular heart disease with moderate mitral regurgitation. The patient presented to the hospital with shortness of breath associated with extensive cough and congestion. Initially she was admitted to the third floor but because she continues to have extensive cough associated with respiratory distress she was transferred to the intensive care unit and subsequently she was intubated and placed on mechanical ventilation. 12/19/2023 The patient was seen this morning. She is hemodynamically stable beside soft blood pressure. Currently she is not on vasopressors and she was weaned from vasopressors earlier today. Beside that she has been maintaining normal sinus mechanism. The possible diagnosis is pneumonia/sepsis and blood culture was sent. She doesn't seems in overt congestive heart failure overall. We'll follow-up with a chest x-ray from this morning. She was given one dose of Lasix last night. The last echo from September showed an EF between 30-35%. The examination is remarkable for regular rhythm with distant heart sounds and diminished breathing sounds bilaterally and no edema was noted. 12/20/2023 The patient was seen and evaluated this morning. She continues to be intubated on mechanical ventilation but hemodynamically stable with a soft blood pressure and mean pressure above 65 mmHg. She underwent bronchoscopy yesterday. The est x-ray showed right lower lobe infiltrate/pneumonia. She is on antibiotic. She has been maintaining normal sinus mechanism with ventricular bigeminy but her electrolytes including potassium was on the low side and that has been replaced. From a cardiac arrest or standpoint of view, would continue the current medical regimen and continue following up with the patient. The examination is remarkable for regular rhythm with diminished breathing sounds bilaterally January 19, 2024 The patient was seen and evaluated this morning. Hemodynamically she is stable with marginal pressure. Upon extubation yesterday she went into a wide-complex rhythm seems to be consistent with ventricular tachycardia, sustained versus nonsustained. She was given adenosine. She was started on Cardizem IV. Cu rrently she is an sinus mechanism. Because her pressure is marginal and going to stop the Cardizem and start the patient on metoprolol tartrate 12.5 mg p.o. twice daily. Her potassium was marginal and that was replaced. Will check her magnesium. Her ejection fraction is low at 35%. If she has that rhythm again she might benefit from amiodarone bolus and drip. Meanwhile she was given Lasix yesterday. The chest x-ray today appears to be better. December 22, 2023 The patient was seen and evaluated this morning. She continues to be intubated on mechanical ventilation but hemodynamically stable. Her potassium continues to be low. Currently she is on Lasix at 40 mg IV 3 times daily which ongoing to decrease to 40 mg IV twice daily and add Aldactone to the current medical regimen as a potassium sparing agent and she was on that medication for cardiomyopathy at home. Also she did have an episode of nonsustained ventricular tachycardia last night and with that being said I am going to i ncrease the dose of metoprolol. Consider adding lisinopril also to the current medical regimen for the cardiomyopathy down the line. Beside that her potassium was replaced. Magnesium was checked. The chest x-ray was reviewed. The blood work was reviewed as well. The examination showed stable vital signs with regular rhythm and distant heart sounds and diminished breathing sounds bilaterally. She has mild bilateral lower extremities edema December 23, 2023 The patient was seen and evaluated this morning. She was reintubated again because of increased breathing work. She was hemodynamically unstable and requiring norepinephrine but currently she is off norepinephrine. She has been maintaining normal sinus mechanism. She is on Aldactone and also she is on beta-marcos which we will continue at this point. Consider adding lisinopril to the current medical regimen once her pressure is better. The examination is remarkable for diminished breathing sounds bilaterally and regular rate and rhythm and no edema was noted. December 24, 2023 The patient was seen and evaluated this morning. She was extubated earlier today. She has been maintaining normal sinus mechanism. She is hemodynamically stable. Currently she is on beta-marcos and she is on Aldactone. The pressure remains soft. I would consider adding ALEJANDRA inhibitors to the current medical regimen once her pressure is more stable. She is currently on BiPAP. Examination is remarkable for distant heart sounds with diminished breathing sounds bilaterally and mild lower extremities edema noted. Assessment Acute respiratory distress Acute respiratory failure Pneumonia Coronary artery disease Cardiomyopathy Cardiac arrhythmia Valvular heart disease Plan Continue the current medical regimen Continue the current dose of beta-marcos Continue Aldactone Consider adding lisinopril once the pressure permit Follow-up with the patient Objective - Vital Signs Vital signs: Vital Signs Temp 100.0 F H 12/24/23 12:00 Pulse 88 12/24/23 15:46 Resp 14 12/24/23 15:00 BP 133/58 12/23/23 07:00 Pulse Ox 97 12/24/23 15:00 FiO2 40 12/24/23 15:35 Intake & Output 12/23/23 12/24/23 12/24/23 18:59 06:59 18:59 Intake Total 6597.067 4698.137 830.717 Output Total 1075 1175 835 Balance 483.572 521.137 -4.283 Weight 78.1 kg Intake: IV 830 820 674 0.9 KVO 150 120 10 A- line .9 @3cc/hr 24 D5W 530 600 50 Dextrose 5% in Water 1, 400 000 ml @ 50 mls/hr IV . Q20H [facility] Rx#:[id number] Invasive Line 4 90 Piperacillin-Tazobactam 3 100 100 100 .375 gm In Sodium Chloride 0.9% 100 ml @ 25 mls/hr IVPB Q8HR [facility] Rx# :[id number] Potassium Chloride 20 meq 50 In Water For Injection 1 100ml.bag @ 50 mls/hr IVPB Q2H [facility] Rx#: [id number] Intake, IV Titration 728.572 533.137 110.717 Amount Insulin Regular 100 unit 19.117 In Sodium Chloride 0.9% 100 ml @ Titrate IV .Q0M [facility] Rx#:[id number] Norepinephrine 4 mg In 133.143 266.019 49.152 Sodium Chloride 0.9% 250 ml @ 0.03 MCG/KG/MIN 9. 332 mls/hr IV .Q24H [facility] Rx#:[id number] Piperacillin-Tazobactam 3 100 .375 gm In Sodium Chloride 0.9% 100 ml @ 25 mls/hr IVPB Q8HR [facility] Rx# :[id number] Potassium Chloride 20 meq 300 In Water For Injection 1 100ml.bag @ 50 mls/hr IVPB Q2H [facility] Rx#: [id number] fentaNYL (PF). 1,000 mcg 25.667 32.89 In Sodium Chloride 0.9% 80 ml @ 0.5 MCG/KG/HR 4.4 mls/hr IV .[id number] [facility] Rx#:[id number] propofoL 1,000 mg In 150.645 267.118 28.675 Empty Bag 1 bag @ 15 MCG/ KG/MIN 7.785 mls/hr IV . [id number] [facility] Rx#:[id number] Oral 0 Tube Feeding 253 46 Other 90 0 Output: Gastric Drainage 50 Urine 1075 1175 785 Other: Voiding Method Indwelling Catheter Indwelling Catheter Indwelling Catheter # Bowel Movements 0 ABP, PAP, CO, CI - Last Documented Arterial Blood Pressure 115/58 - Labs CBC & Chem 7: 12/24/23 05:00 12/24/23 05:00 Labs: Abnormal Lab Results - Last 24 Hours (Table) 12/23/23 12/23/23 12/24/23 Range/Units 12:53 20:01 00:45 WBC (3.8-10.6) k/uL Hgb (11.4-16.0) gm/dL MCV (80.0-100.0) fL MCH (25.0-35.0) pg MCHC (31.0-37.0) g/dL RDW (11.5-15.5) % Neutrophils # (1.3-7.7) k/uL Lymphocytes # (1.0-4.8) k/uL ABG pH (7.35-7.45) ABG pCO2 (35-45) mmHg ABG pO2 (83-108) mmHg ABG HCO3 (21-25) mmol/L ABG Total CO2 (19-24) mmol/L ABG O2 Saturation (94-97) % Sodium (137-145) mmol/L Chloride (98-107) mmol/L Carbon Dioxide (22-30) mmol/L BUN (7-17) mg/dL Creatinine (0.52-1.04) mg/dL Glucose (74-99) mg/dL POC Glucose (mg/dL) 212 H 270 H (70-110) mg/dL Hemoglobin A1c (<=6.0) % AST (14-36) U/L ALT (4-34) U/L Total Protein (6.3-8.2) g/dL Albumin (3.5-5.0) g/dL Procalcitonin 0.31 H (0.02-0.09) ng/mL 12/24/23 12/24/23 12/24/23 Range/Units 04:52 05:00 05:00 WBC 10.8 H (3.8-10.6) k/uL Hgb 10.3 L (11.4-16.0) gm/dL MCV 74.0 L (80.0-100.0) fL MCH 20.3 L (25.0-35.0) pg MCHC 27.5 L (31.0-37.0) g/dL RDW 20.0 H (11.5-15.5) % Neutrophils # 9.7 H (1.3-7.7) k/uL Lymphocytes # 0.5 L (1.0-4.8) k/uL ABG pH (7.35-7.45) ABG pCO2 (35-45) mmHg ABG pO2 (83-108) mmHg ABG HCO3 (21-25) mmol/L ABG Total CO2 (19-24) mmol/L ABG O2 Saturation (94-97) % Sodium (137-145) mmol/L Chloride (98-107) mmol/L Carbon Dioxide (22-30) mmol/L BUN (7-17) mg/dL Creatinine (0.52-1.04) mg/dL Glucose (74-99) mg/dL POC Glucose (mg/dL) 264 H (70-110) mg/dL Hemoglobin A1c 6.7 H (<=6.0) % AST (14-36) U/L ALT (4-34) U/L Total Protein (6.3-8.2) g/dL Albumin (3.5-5.0) g/dL Procalcitonin (0.02-0.09) ng/mL 12/24/23 12/24/23 12/24/23 Range/Units 05:00 05:26 09:34 WBC (3.8-10.6) k/uL Hgb (11.4-16.0) gm/dL MCV (80.0-100.0) fL MCH (25.0-35.0) pg MCHC (31.0-37.0) g/dL RDW (11.5-15.5) % Neutrophils # (1.3-7.7) k/uL Lymphocytes # (1.0-4.8) k/uL ABG pH (7.35-7.45) ABG pCO2 48 H (35-45) mmHg ABG pO2 134 H (83-108) mmHg ABG HCO3 32 H (21-25) mmol/L ABG Total CO2 33 H (19-24) mmol/L ABG O2 Saturation 99.0 H (94-97) % Sodium 146 H (137-145) mmol/L Chloride 112 H (98-107) mmol/L Carbon Dioxide 34 H (22-30) mmol/L BUN 51 H (7-17) mg/dL Creatinine 1.09 H (0.52-1.04) mg/dL Glucose 272 H (74-99) mg/dL POC Glucose (mg/dL) 178 H (70-110) mg/dL Hemoglobin A1c (<=6.0) % AST 139 H (14-36) U/L ALT 568 H (4-34) U/L Total Protein 5.5 L (6.3-8.2) g/dL Albumin 3.1 L (3.5-5.0) g/dL Procalcitonin (0.02-0.09) ng/mL 12/24/23 12/24/23 12/24/23 Range/Units 11:02 11:50 15:22 WBC (3.8-10.6) k/uL Hgb (11.4-16.0) gm/dL MCV (80.0-100.0) fL MCH (25.0-35.0) pg MCHC (31.0-37.0) g/dL RDW (11.5-15.5) % Neutrophils # (1.3-7.7) k/uL Lymphocytes # (1.0-4.8) k/uL ABG pH 7.48 H (7.35-7.45) ABG pCO2 (35-45) mmHg ABG pO2 123 H (83-108) mmHg ABG HCO3 31 H (21-25) mmol/L ABG Total CO2 32 H (19-24) mmol/L ABG O2 Saturation 98.5 H (94-97) % Sodium (137-145) mmol/L Chloride (98-107) mmol/L Carbon Dioxide (22-30) mmol/L BUN (7-17) mg/dL Creatinine (0.52-1.04) mg/dL Glucose (74-99) mg/dL POC Glucose (mg/dL) 173 H 192 H (70-110) mg/dL Hemoglobin A1c (<=6.0) % AST (14-36) U/L ALT (4-34) U/L Total Protein (6.3-8.2) g/dL Albumin (3.5-5.0) g/dL Procalcitonin (0.02-0.09) ng/mL Microbiology - Last 24 Hours (Table) 12/23/23 08:26 Gram Stain - Preliminary Sputum
[2023-12-24 17:49] LABS: Glucose,Whole Blood 200 mg/dL (70-110)
[2023-12-24 20:27] LABS: Glucose,Whole Blood 163 mg/dL (70-110)
[2023-12-24] MEDS: HYDROmorphone 1 MG/ML 1 ML SYRINGE IVP PRN (20:58)
[2023-12-25 00:37] LABS: Glucose,Whole Blood 165 mg/dL (70-110)
[2023-12-25] MEDS: NA PHOS,M-B/NA PHOS,DI-BA 133 ML ENEMA RECTAL ONE (00:47)
[2023-12-25 05:17] LABS: Glucose,Whole Blood 224 mg/dL (70-110)
[2023-12-25] MEDS: bisacodyL 10 MG SUPP RECTAL PRN (05:25)
[2023-12-25 05:41] LABS: Anisocytosis Slight; Basophils % (A) 0 %; Eosinophils % (A) 0 %; HCT 34.4 % (34.0-46.0); HGB 9.8 gm/dL (11.4-16.0); Hypochromasia Marked; Lymphocytes # (A) 0.5 k/uL (1.0-4.8); Lymphocytes % (A) 6 %; MCH 21.4 pg (25.0-35.0); MCHC 28.4 g/dL (31.0-37.0); MCV 75.4 fL (80.0-100.0); Mean Platelet Volume 8.9; Microcytosis Moderate; Monocytes # (A) 0.3 k/uL (0-1.0); Monocytes % (A) 3 %; Neutrophils # (A) 7.2 k/uL (1.3-7.7); Neutrophils % (A) 90 %; Platelet Count 125 k/uL (150-450); RBC 4.56 m/uL (3.80-5.40); RDW 19.5 % (11.5-15.5)
[2023-12-25 06:03] LABS: AST 345 U/L (14-36); African American GFR (CKD) 81 (>60 ml/min/1.73 sqM); Albumin 2.8 g/dL (3.5-5.0); Alkaline Phosphatase 51 U/L (38-126); Anion Gap 0 mmol/L; Blood Urea Nitrogen 39 mg/dL (7-17); Calcium 8.2 mg/dL (8.4-10.2); Carbon Dioxide 30 mmol/L (22-30); Chloride 115 mmol/L (98-107); Glucose 217 mg/dL (74-99); Non-African American GFR(CKD) 71 (>60 ml/min/1.73 sqM); Potassium 3.9 mmol/L (3.5-5.1); Sodium 145 mmol/L (137-145); Total Bilirubin 1.1 mg/dL (0.2-1.3); Total Protein 5.1 g/dL (6.3-8.2)
[2023-12-25 06:10] LABS: ALT 810 U/L (4-34)
[2023-12-25] MEDS: POTASSIUM CHLORIDE 10 MEQ in WATER FOR INJECTION 1 100ML.BAG IVPB SCH (08:42)
[2023-12-25 08:48] LABS: Glucose,Whole Blood 194 mg/dL (70-110)
[2023-12-25 11:29] LABS: Glucose,Whole Blood 208 mg/dL (70-110)
--- NOTE | 2023-12-25 11:45 | P.PN ---
Subjective Progress Note Date: 12/25/23 Mari Moore, is a 73 year old female who presented to [facility] with a chief complaint of worsening shortness of breath. Patient reports she's had a nonproductive cough and generalized weakness and upper respiratory symptoms over the past few days. Patient has an extensive medical history including asthma, heart failure, COPD, coronary artery disease with previous history of CABG, diabetes mellitus, fibromyalgia, sleep apnea, ex- smoker and current marijuana user. Chest x-ray completed in ER showing no acute pulmonary infiltrate. Current vital signs showing temperature 97.6, heart rate 97, respiratory 18, blood pressure 98/49 with a pulse ox of 96% on room air patient testing negative for influenza RSV and COVID-19. UA negative. Troponins negative 2. BNP elevated at 2130. White blood cell within normal limits hemoglobin 8.9 at this time primary service is consulted. Will consult cardiology services in order 2-D echo. Iron studies ordered for anemia patient started on IV Solu-Medrol DuoNeb breathing treatments. At this time pulmonary and cardiology services consulted. Continue azithromycin for upper respiratory infection. Iron studies for low hemoglobin. On 12/18/2023 patient was seen and examined in the ICU her condition has worsened this morning, she was having severe continuous cough and shortness of breath, she had decrease in her O2 sat duration, she was transferred to intensive care unit, chest x-ray revealed significant worsening since x-ray done on 12/16/2023 with large right middle lobe and right lower lobe infiltrates, possibly related to aspiration. At this time patient is intubated, sedated started on mechanical ventilation, IV Zosyn was added to her medication regimen, pulmonary critical care following. On 12/19/2023 patient remains in the ICU on mechanical ventilation FiO2 40%. Patient remains on IV sedation. Levophed has been DC'd. Patient remains on IV steroids and IV antibiotics. Pulmonary and cardiology services following. ABGs this a.m. pH 7.36, pCO2 40, pO2 189, HCO3 23 and total CO2 24. On 12/20/2023 patient remains in the ICU on mechanical ventilation FiO2 30%. Liver enzymes trending down AST 222 ALT 390. ABGs this a.m. pH 7.40, pCO2 38, pO2 126 sodium bicarb 24. Patient remains on IV Zosyn and IV vancomycin. Patient dakotah on IV steroids. On 12/21/2023 patient was seen and examined in the ICU she is intubated sedated maintained on mechanical ventilation, vital exam of this morning reveals a temp erature of 99.4 heart rate 87 respiration 27 blood pressure 100/68 pulse ox 95% on FiO2 of 30% Arterial blood gas reveals pH 7.4 pCO2 39 CO2 94 liver enzymes remain elevated with ALT at 319 and AST at 222 patient is maintained on IV antibiotics Zosyn she also remains on pressure support. On 12/22/2023 patient was seen and examined in the ICU she is intubated sedated maintained on mechanical ventilation vital examination reveals a temperature of 99.4 pulse 92 respiration 20 blood pressure 106/69 pulse ox 97 percent on FiO2 of 30% she remains on assist control tidal volume 350 rate of 20 FiO2 30% and a PEEP of 5. Arterial blood gas reveals a pH of 7.44 pCO2 45 pO2 99 white blood count 5.3 hemoglobin 9.2 platelet count 213 BUN 49 creatinine 0.99 patient remains on pressure support with norepinephrine she remains on IV antibiotic Zosyn, pulmonary critical care, and cardiology are following. On 12/23/2023 patient was seen and examined in the ICU she is intubated sedated maintained on mechanical ventilation, vital exam reveals a temperature of 100.2, respiration 25 pulse 88 blood pressure 130/69 pulse ox 100% on FiO2 50% currently patient is back on assist control rate of 20 tidal volume 350 FiO2 50% with PEEP of 5 arterial blood gas reveals pH of 7.5 to pCO2 47 CO2 130 potassium is low at 2.5 and is being corrected. She is still having episodes of fever, she is maintained on IV Zosyn, repeat blood culture ordered, infectious disease consultation requested. On 12/24/2023 patient was seen and examined in the ICU she is intubated sedated maintained on mechanical ventilation, nursing is reporting that patient has not had a bowel movement for several days, otherwise patient seems to be stable. Vital exam reveals a temperature of 99.3 pulse 84 respiration 22 blood pressure 104/55 pulse ox is 100% on mechanical ventilation. At this time patient is maintained on assist control tidal volume 350 rate of 20 FiO2 40% with a PEEP of 5 arterial blood gas this morning reveals a pH of 7.43 pCO2 48 pO2 134 BUN is elevated at 51 creatinine 1.09 there is elevation in liver enzymes with AST at 139 and a LT at 560 On 12/25/2023 patient was seen and examined in the ICU she is alert and oriented 3 in no apparent distress she was extubated yesterday she is maintained on oxygen at 5 L via nasal cannula, she denies any complaints at this time there is no fever or chills no headache or dizziness no chest pain no shortness of breath no cough no nausea or vomiting no abdominal pain no diarrhea and no urinary symptoms vital examination reveals a temperature of 98 pulse 104 respiration 18 blood pressure 108/95 pulse ox 99% on 5 L nasal cannula, laboratory data reveals a white blood count of 8.0 hemoglobin 9.8 platelet count 125 BUN 39 creatinine 0.83 Objective - Vital Signs Vital signs: Vital Signs Temp 98.4 F 12/25/23 05:00 Pulse 99 12/25/23 07:00 Resp 16 12/25/23 07:00 BP 148/61 12/25/23 07:00 Pulse Ox 99 12/25/23 07:00 FiO2 35 12/24/23 21:00 Intake & Output 12/24/23 12/25/23 12/25/23 18:59 06:59 18:59 Intake Total 1142.717 690.177 13 Output Total 1295 675 75 Balance -152.283 15.177 -62 Weight 78.1 kg Intake: IV 986 633 13 0.9 KVO 10 A- line .9 @3cc/hr 36 33 3 D5W 50 Dextrose 5% in Water 1, 600 470 10 000 ml @ 50 mls/hr IV . Q20H [facility] Rx#:[id number] Invasive Line 4 90 30 Piperacillin-Tazobactam 3 200 100 .375 gm In Sodium Chloride 0.9% 100 ml @ 25 mls/hr IVPB Q8HR [facility] Rx# :[id number] Intake, IV Titration 110.717 57.177 Amount Dexmedetomidine/0.9% NaCl 57.177 (Pmx) 400 mcg In Empty Bag 1 bag @ 0.2 MCG/KG/HR 3.905 mls/hr IV .Q24H [facility] Rx#:[id number] Norepinephrine 4 mg In 49.152 Sodium Chloride 0.9% 250 ml @ 0.03 MCG/KG/MIN 9. 332 mls/hr IV .Q24H [facility] Rx#:[id number] fentaNYL (PF). 1,000 mcg 32.89 In Sodium Chloride 0.9% 80 ml @ 0.5 MCG/KG/HR 4.4 mls/hr IV .[id number] [facility] Rx#:[id number] propofoL 1,000 mg In 28.675 Empty Bag 1 bag @ 15 MCG/ KG/MIN 7.785 mls/hr IV . [id number] [facility] Rx#:[id number] Oral 0 Tube Feeding 46 Other 0 Output: Gastric Drainage 50 Urine 1245 675 75 Other: Voiding Method Indwelling Catheter Indwelling Catheter # Bowel Movements 0 ABP, PAP, CO, CI - Last Documented Arterial Blood Pressure 104/64 - Exam In general patient is intubated sedated maintained on mechanical ventilation Head normocephalic and atraumatic Neck supple no JVD no goiter Lungs exam reveals coarse crackles bilaterally no wheezing Heart regular rate and rhythm S1-S2, no rub or gallop Abdomen is soft nontender nondistended positive bowel sounds no hepatosplenomegaly Extremities no edema Neuro no gross focal deficit - Labs CBC & Chem 7: 12/25/23 05:00 12/25/23 05:00 Labs: Abnormal Lab Results - Last 24 Hours (Table) 12/24/23 12/24/23 12/24/23 Range/Units 05:00 09:34 11:02 Hgb (11.4-16.0) gm/dL MCV (80.0-100.0) fL MCH (25.0-35.0) pg MCHC (31.0-37.0) g/dL RDW (11.5-15.5) % Plt Count (150-450) k/uL Lymphocytes # (1.0-4.8) k/uL ABG pH 7.48 H (7.35-7.45) ABG pO2 123 H (83-108) mmHg ABG HCO3 31 H (21-25) mmol/L ABG Total CO2 32 H (19-24) mmol/L ABG O2 Saturation 98.5 H (94-97) % Chloride (98-107) mmol/L BUN (7-17) mg/dL Glucose (74-99) mg/dL POC Glucose (mg/dL) 178 H (70-110) mg/dL Hemoglobin A1c 6.7 H (<=6.0) % Calcium (8.4-10.2) mg/dL AST (14-36) U/L ALT (4-34) U/L Total Protein (6.3-8.2) g/dL Albumin (3.5-5.0) g/dL 12/24/23 12/24/23 12/24/23 Range/Units 11:50 15:22 17:48 Hgb (11.4-16.0) gm/dL MCV (80.0-100.0) fL MCH (25.0-35.0) pg MCHC (31.0-37.0) g/dL RDW (11.5-15.5) % Plt Count (150-450) k/uL Lymphocytes # (1.0-4.8) k/uL ABG pH (7.35-7.45) ABG pO2 (83-108) mmHg ABG HCO3 (21-25) mmol/L ABG Total CO2 (19-24) mmol/L ABG O2 Saturation (94-97) % Chloride (98-107) mmol/L BUN (7-17) mg/dL Glucose (74-99) mg/dL POC Glucose (mg/dL) 173 H 192 H 200 H (70-110) mg/dL Hemoglobin A1c (<=6.0) % Calcium (8.4-10.2) mg/dL AST (14-36) U/L ALT (4-34) U/L Total Protein (6.3-8.2) g/dL Albumin (3.5-5.0) g/dL 12/24/23 12/25/23 12/25/23 Range/Units 20:25 00:35 05:00 Hgb 9.8 L (11.4-16.0) gm/dL MCV 75.4 L (80.0-100.0) fL MCH 21.4 L (25.0-35.0) pg MCHC 28.4 L (31.0-37.0) g/dL RDW 19.5 H (11.5-15.5) % Plt Count 125 L (150-450) k/uL Lymphocytes # 0.5 L (1.0-4.8) k/uL ABG pH (7.35-7.45) ABG pO2 (83-108) mmHg ABG HCO3 (21-25) mmol/L ABG Total CO2 (19-24) mmol/L ABG O2 Saturation (94-97) % Chloride (98-107) mmol/L BUN (7-17) mg/dL Glucose (74-99) mg/dL POC Glucose (mg/dL) 163 H 165 H (70-110) mg/dL Hemoglobin A1c (<=6.0) % Calcium (8.4-10.2) mg/dL AST (14-36) U/L ALT (4-34) U/L Total Protein (6.3-8.2) g/dL Albumin (3.5-5.0) g/dL 12/25/23 12/25/23 Range/Units 05:00 05:16 Hgb (11.4-16.0) gm/dL MCV (80.0-100.0) fL MCH (25.0-35.0) pg MCHC (31.0-37.0) g/dL RDW (11.5-15.5) % Plt Count (150-450) k/uL Lymphocytes # (1.0-4.8) k/uL ABG pH (7.35-7.45) ABG pO2 (83-108) mmHg ABG HCO3 (21-25) mmol/L ABG Total CO2 (19-24) mmol/L ABG O2 Saturation (94-97) % Chloride 115 H (98-107) mmol/L BUN 39 H (7-17) mg/dL Glucose 217 H (74-99) mg/dL POC Glucose (mg/dL) 224 H (70-110) mg/dL Hemoglobin A1c (<=6.0) % Calcium 8.2 L (8.4-10.2) mg/dL AST 345 H (14-36) U/L ALT 810 H (4-34) U/L Total Protein 5.1 L (6.3-8.2) g/dL Albumin 2.8 L (3.5-5.0) g/dL Microbiology - Last 24 Hours (Table) 12/23/23 10:11 Blood Culture - Preliminary Blood 12/23/23 08:26 Gram Stain - Preliminary Sputum Assessment and Plan Assessment: 1. Acute exacerbation of COPD. 2. Acute on chronic exacerbation of systolic CHF 3. Anemia. Iron studies ordered 4. Cardiomyopathy with an EF of 30-35% 5. History of non-STEMI September 2023 status post cardiac cath showing 80% st enosis of the stent patent 6. History of coronary artery disease disease status post CABG 7. History of diabetes mellitus type II 8. History of essential hypertension 9. History of hyperlipidemia. 10. Acute hypoxic respiratory failure requiring intubation and mechanical ventilation on 12/18/2023 11. Right middle lobe and right lower lobe infiltrates, suggestive of pneumonia, possible aspiration. DVT prophylaxis Lovenox. GI prophylaxis Protonix Cardiology and pulmonary service is consulted. Patient started on IV Solu-Medrol Repeat labs ordered iron studies ordered
--- NOTE | 2023-12-25 12:06 | XR ---
EXAMINATION TYPE: XR chest 1V portable DATE OF EXAM: 12/25/2023 COMPARISON: NONE HISTORY: COPD. TECHNIQUE: Single frontal view of the chest is obtained. FINDINGS: Cardiac silhouette is mildly enlarged and the pulmonary vessels are within normal limits. There are midline sternotomy wires. IMPRESSION: Cardiomegaly with no definitive acute findings identified.
--- NOTE | 2023-12-25 13:51 | P.PN ---
Subjective Progress Note Date: 12/25/23 Principal diagnosis: Acute hypoxic respiratory failure secondary to multifocal pneumonia On 12/18/2023, the patient is being seen in follow-up on the medical floor. The patient was found to be in significant degree of respiratory distress and the patient was using some accessory muscles of breathing. She was having frequent coughing episode and she was unable to catch her breath in between those coughing episodes. She was still responsive and communicating. At that point, I made recommendations to transfer this patient to the intensive care unit for further monitoring. Within 20 minutes, the patient became more diaphoretic, lethargic, quite obtunded and at that point, the patient had to be intubated and placed on the mechanical ventilator. I personally intubated the patient in the intensive care unit. I have her on a tidal volume of 350, rate of 24 with an FiO2 of 100% with a PEEP of 5. Postintubation chest x-ray showed extensive consolidation of the right lung and there is new airspace disease throughout the right lung along with some areas of consolidations and interstitial changes. Post NG tube insertion, the patient's stomach was decompressed and there was total amount of 500 cc of gastric material aspirated from the stomach. No reported aspiration. Obviously, the patient has multifocal pneumonia at this point in time more extensive in the right lung especially in the right middle and right lower lobe area. The white cell count at 7.1 with a hemoglobin 8.8, BUN is at 15 with a creatinine of 0.5 and sodium levels at 137. Potassium level is at 4.2. The patient was started on propofol for sedation. She was given also a dose of Nimbex during the intubation process 10 mg IV x 1. Blood gas are still pending. She may need a bronchoscopy and right lower lobe bronchoalveolar lavage. She remains on bronchodilators. She remains on steroids. Antibiotics will be modified and Zosyn will be added in combination with Zithromax. She has not required any pressors yet. She will be given a bolus of 1 L and following that she will be started on a maintenance of 100 cc an hour. Condition is obviously is critical at this point in time. Echocardiogram that was obtained on 10/19/2023 showed systolic heart failure with an underlying left ventricular ejection fraction of 30 to 35%. The patient also had mild RV dilatation, mild aortic regurgitation, mild to moderate mitral Regurgitation with a right ventricular systolic pressure of 32. He also has moderate degree of pulm hypertension. On today's evaluation of 12/19/2023, the patient is intubated on the mechanical ventilator. Overnight, the patient was kept intubated and the patient is sedated adequately with propofol which is running at 35 mcg/kg/min. As mentioned, the patient developed an extensive right lung pneumonia with respiratory failure requiring intubation mechanical ventilation. She currently has a #7.5 orotracheal tube. She is on assist-control mode of mechanical ventilation at a rate of 30, tidal volume of 350, FiO2 of 40% and a PEEP of 5. The peak airway pressure is around 25. The chest x-ray from today showing bilateral pleural effusion and significant consolidation of the right lung base and there is also some limited infiltration of the left lung base. I performed a bronchoscopy on this patient yesterday endobronchial lavage of the right lower lobe was obtained. The results are still pending for now. Meanwhile, the patient was covered with broad-spectrum antibiotic coverage and she is currently on a combination of Zosyn, Zithromax and vancomycin. The peak airway pressure is ranging between 21 and 23. The blood gas shows improvement in the pH is currently up to 7.36 with a pCO2 of 40 and pO2 of 189. Note that the patient was also given 2 doses of bicarb yesterday as the patient was quite acidotic. Rest of the blood work from today shows a WBC count of 9.9, hemoglobin of 9.1 and a platelet count of 288. Sodium is at 143,. Potassium level is at 3.8, BUN is at 25 with a creatinine of 0.9. LFTs are elevated with an AST of 525 and ALT of 448 and a bilirubin of 0.8. Her urine drug screen is positive for cannabis and the patient admits to smoke marijuana on a daily basis approximately 2 joints a day. She is on DuoNeb nebulized treatments [id number]. She is also on a combination of Perforomist and Pulmicort updrafts. She remains on IV Solu-Medrol. She is also on Lovenox 40 mg subcu for DVT prophylaxis. Feeding has not been started yet. Echocardiogram that was done on 10/19/2023 showed impaired LV function with an ejection fraction of 30 to 35%. We have not encountered any hypotension on this patient. She was quite tachycardic yesterday and she was placed briefly on norepinephrine yesterday for some li mited hypotension and this ultimately improved and her current mean arterial pressure is around 74. She is on insulin drip running at 3 units an hour. Blood sugars under better control for now. On 12/20/2023, the patient remains intubated on the mechanical ventilator. Note that the patient is also sedated with a combination of fentanyl and propofol. The propofol is running at 35 mcg/kg/min and the patient is also on fentanyl 0.5 mcg/kg/h. Adequately sedated and the patient is synchronous with mechanical ventilator. She is currently at a rate of 30, tidal volume of 350, FiO2 is down to 30% with a PEEP of 5. The follow-up chest x-ray showsNo significant consolidation. There is improved in the right lower lobe consolidation. There is also cardiomegaly and CHF with interstitial edema and small bilateral pleural effusion. ET tube remains in a good location. As for the blood gas, the patient has a pH of 7.4 with a pCO2 of 38 and pO2 of 126 and this was on FiO2 of 40%. No significant orotracheal secretions. Bronchoscopy endobronchial done but results are still pending for now and there is no significant microbial growth. The blood cultures been negative. On blood work, the patient's white cell count is 5.9 with a hemoglobin of 8.5 and a platelet count of 236. Sodium is 145, potassium is at 4, BUN is at 33 with a creatinine of 0.9. Viral screen has been negative. Legionella urine antigen has been negative. The patient is also receiving enteral feeding for nutritional support. The patient is currently on vital high-protein at the rate of 30 cc an hour and the patient is also on insulin drip at 5 units an hour. Overall fluid balance is +1.5 L over the past 24 hours. On 12/21/2023, the patient is being seen for a follow-up. The patient remains intubated and mechanically ventilated. She is calm and comfortable on a combination of propofol and fentanyl. Propofol is running at 35 mcg/kg/min and fentanyl is running at 0.5 mcg/kg/h. The patient remains intubated on mechanical ventilator. This morning, she is on assist-control of 20, tidal volume of 350, FiO2 of 30% with a PEEP of 5. She is calm and comfortable and synchronous with mechanical ventilator. Chest x-ray showing cardiomegaly and pulm vascular congestion at the bronchoscopy endobronchial lavage that was done earlier yielded no microbial growth thus far. Based on that, I am going to dis continue the vancomycin and keep the patient on a combination of Zosyn and Zithromax. Otherwise, the fluid balance is positive and the patient will be started on more aggressive diuresis. The patient remains on vital high-protein at the rate of 32 cc an hour. The chest x-ray from today is consistent with CHF Along with some lower lobe consolidation bilaterally and the possibility of pneumonia cannot be completely excluded. The white cell count is 4.5, hemoglobin is 8.5 and a platelet count is at 245. Sodium is at 145 with a potassium level of 3.8, BUN is 43 with a creatinine of 1.0. LFTs are essentially improving and the AST is down to 222 and the ALT is down to 3019. Cultures are negative. Antibiotics are mentioned and they will include a combination of Zosyn Zithromax and vancomycin will be discontinued. Noted the patient was given a sedation holiday yesterday and during the process the patient had a an episode of SVT. The patient was given adenosine and following that the patient was placed on Cardizem and currently she is off Cardizem and the cardiac rhythm is back into normal sinus rhythm. No other significant events overnight. No fever or chills. No hemodynamic instability. She is known to have cardiomyopathy with impaired LV function. The patient remains on insulin drip at 6 units an hour. Afebrile. Hemodynamically stable. No pressors. 12/22/2023, the patient is being seen in follow-up. Remains intubated on the mechanical ventilator. This morning, she remains on propofol at 30 mcg/kg/min and fentanyl is at 0.5 mcg/kg/h. She is on assist-control mode with rate of 20, tidal volume of 350, FiO2 is down to 30% with a PEEP of 5. Peak airway pressur es of 21. Blood gas showed a pH of 7.44 with a pCO2 of 45 and a pO2 of 99. The chest x-ray from today shows cardiomegaly and bilateral pleural effusions slightly worse on the right. There is no airspace disease or consolidations. The patient is hemodynamically stable. The patient is on no pressors. The white cell count of 5.3 with a hemoglobin of 9.2. Sodium is at 146 and a potassium level of 3.3, chloride is 111, bicarb is 31 with a BUN of 49 and a creatinine of 0.99. Bronchoscopy has not yielded any microbial growth. Vancomycin was discontinued yesterday the patient remains on a combination of Zosyn and and Zithromax. The patient is also being diuresed with IV Lasix 40 mg IV every 12 hours. Fluid balance is -3.9 L over the past 24 hours and the patient's volume status being further optimized. The patient is also on enteral feeding for nutritional support and she is on vital high-protein at the rate of 32 cc an hour. Insulin drip is at 6 units an hour. The patient has adequate blood sugar control. The patient is afebrile. No other significant events overnight. On 12/23/2023, the patient is being seen for a follow-up. The patient had a long and a lengthy day yesterday with many events occurring as the patient was weaned off initially of the sedation. She had adequate mentation. She had adequate weaning parameters. She was given a spontaneous breathing trial and following that the patient was extubated at this was probably sometime in the early afternoon. Initially she did well on nasal cannula. Subsequently, the patient became tachycardic, tachypneic, diaphoretic and she went to respiratory distress. She was also becoming significantly anxious. At that point, the patient was placed on a BiPAP to support her breathing. The subsequent blood gases were adequate. While on the BiPAP, the patient's pH was at 7.44 with pCO2 of 44 and pO2 of 63. At that point, the patient was started on Precedex which helped her quite a bit and improved her tachycardia and tachypnea. Her mentation was fluctuating and she was not fully coherent that she was following some simple commands. I decided not to reintubate the patient at this point. I diurese her aggressively and I put her on Lasix 10 mg an hour drip and the patient made excellent urine output and she has been negative fluid balance of at least 5.8 L over the past 24 hours. Nevertheless, at around 2 or 3 AM in the morning, the patient became again tachypneic. She became restless and significa ntly agitated. She was extubated and the patient had a repeat blood gas that showed a pH of 7.6 with a pCO2 of 36 and pO2 of 114 and this was done while her being on a BiPAP. Based on her overall condition, we decided to intubate the patient patient is currently intubated and on propofol which is running at 25 mcg/kg/min. She is calm and comfortable. Precedex has been discontinued. She has been Assist-control mode of mechanical ventilation at a rate of 20, tidal volume of 350, FiO2 of 50% with a PEEP of 5. His most recent blood gas shows a pH of 7.52 with a pCO2 of 47 and pO2 of 130. Her chest x-ray is showing lower lobe consolidation worse on the right. There is improvement in the volume status and in general. The orotracheal tube is in good location. The patient's blood work shows a component of hyponatremia with a sodium level of 150. Potassium is being replaced at 2.5, bicarb is at 40 BUN of 67 and a creatinine of 1.29. WBC count is at 8 with a hemoglobin 10.6 and a platelet count of 250. Enteral feeding for nutritional support is to be restarted. The patient was a lso started on low-dose norepinephrine overnight and currently she is on again 0.02 mcg/kg/min. Note that the previous bronchoscopy and the bronchial lavage yielded no microbial growth. As such, all cultures have been negative and the patient was taken off vancomycin yesterday. She remains on Zosyn. She also completed her course of Zithromax. On 12/24/2023, the patient remains intubated and mechanically ventilated. She failed initial trial of extubation. She was reintubated and the patient was kept on mechanical ventilator for the past 24 hours. Noted the extubation and reintubation was done on 12/22/2023. For now, the patient is sedated and she is currently on propofol running at 30 mcg/kg/min. She is being given a sedation holiday. The repeat chest x-ray from today shows marked clearing of the right lower lobe consolidation. The patient is on assist-control mode of mechanical v entilation of 20, tidal volume 350, FiO2 is at 40% with a PEEP of 5. The blood gases are adequate with a pH of 7.42 with a pCO2 of 48 and pO2 of 134. Hemodynamically, she is stable. She is running and low-dose norepinephrine at 0.03 mcg/kg/min. She has adequate urine output. The overall fluid balance over the past 24 hours has been +1 L. Note that the patient was given IV fluids in the form of D5 water regarding hyponatremia. Her sodium level is improved and currently is down to 146. Her acute kidney injury is also improved and the BUN is currently at 51 with a creatinine of 1.09. Potassium has been replaced and currently is up to 4.6. Blood sugars are adequate and the patient is currently off the insulin drip. Intensive antibiotic coverage, the patient remains on IV Zosyn. Based on her previous bronchoscopy and lavage, all of the micro blood cultures were negative. I discontinued the vancomycin. Patient is also off Zithromax. He is in the process of receiving sedation holiday this morning. Patient was evaluated today on 12/25/2023, patient remains in the ICU, she was e xtubated yesterday, and was extubated before and she had to be reintubated, she is now in the ICU on 5 L nasal cannula, she has BiPAP at bedside 09/27/40%, used it only briefly last night postextubation. Patient is doing well, relatively asymptomatic, she is on 5 L nasal cannula and not in distress. Chest x-ray this morning is showing no evidence of airspace disease, minimal atelectasis at the left base, chest x-ray is significantly improved. Labs today showed normal CBC, hemoglobin is 9.8 WBC count is 8 basic metabolic profile is normal except for slightly elevated sodium of 145, patient is receiving D5W. Medications turner, patient remains on updrafts, remains on bronchodilators, she is also on Lovenox subcu, she is also on diuretics and on Zosyn. Objective - Vital Signs Vital signs: Vital Signs Temp 97.9 F 12/25/23 12:00 Pulse 82 12/25/23 13:00 Resp 21 12/25/23 13:00 BP 148/84 12/25/23 13:00 Pulse Ox 98 12/25/23 13:00 FiO2 35 12/24/23 21:00 Intake & Output 12/24/23 12/25/23 12/25/23 18:59 06:59 18:59 Intake Total 1142.717 690.177 613 Output Total 1295 675 495 Balance -152.283 15.177 118 Weight 78.1 kg 78.1 kg Intake: IV 986 633 413 0.9 KVO 10 50 A- line .9 @3cc/hr 36 33 3 D5W 50 Dextrose 5% in Water 1, 600 470 260 000 ml @ 50 mls/hr IV . Q20H [facility] Rx#:[id number] Invasive Line 4 90 30 Piperacillin-Tazobactam 3 200 100 100 .375 gm In Sodium Chloride 0.9% 100 ml @ 25 mls/hr IVPB Q8HR [facility] Rx# :[id number] Intake, IV Titration 110.717 57.177 100 Amount Dexmedetomidine/0.9% NaCl 57.177 (Pmx) 400 mcg In Empty Bag 1 bag @ 0.2 MCG/KG/HR 3.905 mls/hr IV .Q24H [facility] Rx#:[id number] Norepinephrine 4 mg In 49.152 Sodium Chloride 0.9% 250 ml @ 0.03 MCG/KG/MIN 9. 332 mls/hr IV .Q24H [facility] Rx#:[id number] Potassium Chloride 10 meq 100 In Water For Injection 1 100ml.bag @ 100 mls/hr IVPB Q1H [facility] Rx#: [id number] fentaNYL (PF). 1,000 mcg 32.89 In Sodium Chloride 0.9% 80 ml @ 0.5 MCG/KG/HR 4.4 mls/hr IV .[id number] [facility] Rx#:[id number] propofoL 1,000 mg In 28.675 Empty Bag 1 bag @ 15 MCG/ KG/MIN 7.785 mls/hr IV . [id number] [facility] Rx#:[id number] Oral 0 100 Tube Feeding 46 Other 0 Output: Gastric Drainage 50 Urine 1245 675 495 Other: Voiding Method Indwelling Catheter Indwelling Catheter Indwelling Catheter # Bowel Movements 0 ABP, PAP, CO, CI - Last Documented Arterial Blood Pressure 104/64 - Exam General: Reveals 73-year-old female in no distress on 5 L nasal cannula Head: Atraumatic, normocephalic. Skin: Skin is warm and dry and no rashes or lesions are noted. Eye: Pupils are equal, round and reactive to light, extra-ocular movements are intact; there is normal conjunctiva bilaterally. Ears, nose, mouth and throat: There are moist mucous membranes and no oral lesions. Neck: The neck is supple, there is no tenderness or JVD. Cardiovascular: Normal S1-S2, no S3 gallop, no murmur. Respiratory: Diminished breath sounds at the bases no crackles rhonchi or wheezes Gastrointestinal: Soft, non-distended, non-tender abdomen without masses or organomegaly noted. There is no rebound or guarding present. Bowel sounds are unremarkable. Back: There is no tenderness to palpation in the midline. There is no obvious deformity. Musculoskeletal: Normal ROM, no tenderness, There is no pedal edema. There is no calf tenderness or swelling. No cords were appreciated. Neurological: Alert and oriented x 3 no gross focal deficits. Psychiatric: Cooperative, appropriate mood & affect, normal judgment. - Labs CBC & Chem 7: 12/25/23 05:00 12/25/23 05:00 Labs: Abnormal Lab Results - Last 24 Hours (Table) 12/24/23 12/24/23 12/24/23 Range/Units 15:22 17:48 20:25 Hgb (11.4-16.0) gm/dL MCV (80.0-100.0) fL MCH (25.0-35.0) pg MCHC (31.0-37.0) g/dL RDW (11.5-15.5) % Plt Count (150-450) k/uL Lymphocytes # (1.0-4.8) k/uL Chloride (98-107) mmol/L BUN (7-17) mg/dL Glucose (74-99) mg/dL POC Glucose (mg/dL) 192 H 200 H 163 H (70-110) mg/dL Calcium (8.4-10.2) mg/dL AST (14-36) U/L ALT (4-34) U/L Total Protein (6.3-8.2) g/dL Albumin (3.5-5.0) g/dL 12/25/23 12/25/23 12/25/23 Range/Units 00:35 05:00 05:00 Hgb 9.8 L (11.4-16.0) gm/dL MCV 75.4 L (80.0-100.0) fL MCH 21.4 L (25.0-35.0) pg MCHC 28.4 L (31.0-37.0) g/dL RDW 19.5 H (11.5-15.5) % Plt Count 125 L (150-450) k/uL Lymphocytes # 0.5 L (1.0-4.8) k/uL Chloride 115 H (98-107) mmol/L BUN 39 H (7-17) mg/dL Glucose 217 H (74-99) mg/dL POC Glucose (mg/dL) 165 H (70-110) mg/dL Calcium 8.2 L (8.4-10.2) mg/dL AST 345 H (14-36) U/L ALT 810 H (4-34) U/L Total Protein 5.1 L (6.3-8.2) g/dL Albumin 2.8 L (3.5-5.0) g/dL 12/25/23 12/25/23 12/25/23 Range/Units 05:16 08:45 11:28 Hgb (11.4-16.0) gm/dL MCV (80.0-100.0) fL MCH (25.0-35.0) pg MCHC (31.0-37.0) g/dL RDW (11.5-15.5) % Plt Count (150-450) k/uL Lymphocytes # (1.0-4.8) k/uL Chloride (98-107) mmol/L BUN (7-17) mg/dL Glucose (74-99) mg/dL POC Glucose (mg/dL) 224 H 194 H 208 H (70-110) mg/dL Calcium (8.4-10.2) mg/dL AST (14-36) U/L ALT (4-34) U/L Total Protein (6.3-8.2) g/dL Albumin (3.5-5.0) g/dL Microbiology - Last 24 Hours (Table) 12/23/23 10:11 Blood Culture - Preliminary Blood 12/23/23 08:26 Gram Stain - Preliminary Sputum Assessment and Plan Assessment: Impression: Acute hypoxic respiratory failure secondary to multifocal pneumonia, required intubation mechanical ventilation, extubated on 12/24/2023 Acute hypernatremia, mostly secondary to free water deficit improving with D5W Metabolic alkalosis secondary to diuresis, stable History of COPD, presently under control and stable History of coronary artery disease, status post bypass surgery. Chronic systolic heart failure with an ejection fraction of 30 to 35% along with moderate MR and mild to moderate pulm hypertension with a PA pressure of 32 History of diabetes mellitus, History of hyperlipidemia. History of hypertension. History of fibromyalgia. History of obstructive sleep apnea syndrome. History of polysubstance abuse. SVT, single episode, treated with adenosine and the patient was also given Cardizem drip. Currently in a sinus tachycardia. Recommendation: Continue present supportive care measures Continue oxygen and titrate accordingly Continue bronchodilators Continue IV Zosyn Continue IV Solu-Medrol and transition to prednisone in the next 24 hours Continue Levemir insulin Incentive spirometry Ambulation Use BiPAP as needed Will continue to monitor in the ICU for the next 24 hours. Time with Patient: Less than 30
--- NOTE | 2023-12-25 16:01 | P.PN ---
Subjective Progress Note Date: 12/25/23 Shortness of breath The patient is a 73-year-old female patient with extensive cardiac history consistent of coronary artery disease with a prior revascularization with CABG and stenting with the last heart catheterization was performed in September 2023 and no need for revascularization advised at that point as well as cardiomyopathy with an ejection fraction between 30-35% as well as valvular heart disease with moderate mitral regurgitation. The patient presented to the hospital with shortness of breath associated with extensive cough and congestion. Initially she was admitted to the third floor but because she continues to have extensive cough associated with respiratory distress she was transferred to the intensive care unit and subsequently she was intubated and placed on mechanical ventilation. 12/19/2023 The patient was seen this morning. She is hemodynamically stable beside soft bl ood pressure. Currently she is not on vasopressors and she was weaned from vasopressors earlier today. Beside that she has been maintaining normal sinus mechanism. The possible diagnosis is pneumonia/sepsis and blood culture was sent. She doesn't seems in overt congestive heart failure overall. We'll follow-up with a chest x-ray from this morning. She was given one dose of Lasix last night. The last echo from September showed an EF between 30-35%. The examination is remarkable for regular rhythm with distant heart sounds and diminished breathing sounds bilaterally and no edema was noted. 12/20/2023 The patient was seen and evaluated this morning. She continues to be intubated on mechanical ventilation but hemodynamically stable with a soft blood pressure and mean pressure above 65 mmHg. She underwent bronchoscopy yesterday. The chest x-ray showed right lower lobe infiltrate/pneumonia. She is on antibiotic. She has been maintaining normal sinus mechanism with ventricular bigeminy but her electrolytes including potassium was on the low side and that has been replaced. From a cardiac arrest or standpoint of view, would continue the current medical regimen and continue following up with the patient. The examination is remarkable for regular rhythm with diminished breathing sounds bilaterally January 19, 2024 The patient was seen and evaluated this morning. Hemodynamically she is stable with marginal pressure. Upon extubation yesterday she went into a wide-complex rhythm seems to be consistent with ventricular tachycardia, sustained versus nonsustained. She was given adenosine. She was started on Cardizem IV. Currently she is an sinus mechanism. Because her pressure is marginal and going to stop the Cardizem and start the patient on metoprolol tartrate 12.5 mg p.o. twice daily. Her potassium was marginal and that was replaced. Will check her magnesium. Her ejection fraction is low at 35%. If she has that rhythm again she might benefit from amiodarone bolus and drip. Meanwhile she was given Lasix yesterday. The chest x-ray today appears to be better. December 22, 2023 The patient was seen and evaluated this morning. She continues to be intubated on mechanical ventilation but hemodynamically stable. Her potassium continues to be low. Currently she is on Lasix at 40 mg IV 3 times daily which ongoing to decrease to 40 mg IV twice daily and add Aldactone to the current medical regimen as a potassium sparing agent and she was on that medication for cardiomyopathy at home. Also she did have an episode of nonsustained ventricular tachycardia last night and with that being said I am going to increase the dose of metoprolol. Consider adding lisinopril also to the current medical regimen for the cardiomyopathy down the line. Beside that her potassium was replaced. Magnesium was checked. The chest x-ray was reviewed. The blood work was reviewed as well. The examination showed stable vital signs with regular rhythm and distant heart sounds and diminished breathing sounds bilaterally. She has mild bilateral lower extremities edema December 23, 2023 The patient was seen and evaluated this morning. She was reintubated again because of increased breathing work. She was hemodynamically unstable and requiring norepinephrine but currently she is off norepinephrine. She has been maintaining normal sinus mechanism. She is on Aldactone and also she is on beta-marcos which we will continue at this point. Consider adding lisinopril to the current medical regimen once her pressure is better. The examination is remarkable for diminished breathing sounds bilaterally and regular rate and rhythm and no edema was noted. December 24, 2023 The patient was seen and evaluated this morning. She was extubated earlier today. She has been maintaining normal sinus mechanism. She is hemodynamically stable. Currently she is on beta-marcos and she is on Aldactone. The pressure remains soft. I would consider adding ALEJANDRA inhibitors to the current medical regimen once her pressure is more stable. She is currently on BiPAP. Examinati on is remarkable for distant heart sounds with diminished breathing sounds bilaterally and mild lower extremities edema noted. 12/24 Patient was seen and examined at bedside this a.m. Patient was extubated on 12/24/2023. Patient has continued to be in sinus rhythm. Her chest x-ray does not show signs of pulmonary congestion. She is normotensive. Her renal function is stable at 0.6. Assessment Acute respiratory distress Acute respiratory failure Pneumonia Coronary artery disease Cardiomyopathy Cardiac arrhythmia Valvular heart disease Plan Continue the current medical regimen Continue the current dose of beta-marcos Continue Aldactone Consider adding lisinopril once the pressure permit Follow-up with the patient Objective - Vital Signs Vital signs: Vital Signs Temp 97.9 F 12/25/23 12:00 Pulse 84 12/25/23 15:32 Resp 20 12/25/23 15:00 BP 117/56 12/25/23 15:00 Pulse Ox 95 12/25/23 15:00 FiO2 35 12/24/23 21:00 Intake & Output 12/24/23 12/25/23 12/25/23 18:59 06:59 18:59 Intake Total 1142.717 690.177 873 Output Total 1295 675 670 Balance -152.283 15.177 203 Weight 78.1 kg 78.1 kg Intake: IV 986 633 553 0.9 KVO 10 40 A- line .9 @3cc/hr 36 33 3 D5W 50 Dextrose 5% in Water 1, 600 470 410 000 ml @ 50 mls/hr IV . Q20H [facility] Rx#:[id number] Invasive Line 4 90 30 Piperacillin-Tazobactam 3 200 100 100 .375 gm In Sodium Chloride 0.9% 100 ml @ 25 mls/hr IVPB Q8HR [facility] Rx# :[id number] Intake, IV Titration 110.717 57.177 100 Amount Dexmedetomidine/0.9% NaCl 57.177 (Pmx) 400 mcg In Empty Bag 1 bag @ 0.2 MCG/KG/HR 3.905 mls/hr IV .Q24H [facility] Rx#:[id number] Norepinephrine 4 mg In 49.152 Sodium Chloride 0.9% 250 ml @ 0.03 MCG/KG/MIN 9. 332 mls/hr IV .Q24H [facility] Rx#:[id number] Potassium Chloride 10 meq 100 In Water For Injection 1 100ml.bag @ 100 mls/hr IVPB Q1H [facility] Rx#: [id number] fentaNYL (PF). 1,000 mcg 32.89 In Sodium Chloride 0.9% 80 ml @ 0.5 MCG/KG/HR 4.4 mls/hr IV .[id number] [facility] Rx#:[id number] propofoL 1,000 mg In 28.675 Empty Bag 1 bag @ 15 MCG/ KG/MIN 7.785 mls/hr IV . [id number] [facility] Rx#:[id number] Oral 0 220 Tube Feeding 46 Other 0 Output: Gastric Drainage 50 Urine 1245 675 670 Other: Voiding Method Indwelling Catheter Indwelling Catheter Indwelling Catheter # Bowel Movements 0 1 ABP, PAP, CO, CI - Last Documented Arterial Blood Pressure 104/64 - Labs CBC & Chem 7: 12/25/23 05:00 12/25/23 05:00 Labs: Abnormal Lab Results - Last 24 Hours (Table) 12/24/23 12/24/23 12/25/23 Range/Units 17:48 20:25 00:35 Hgb (11.4-16.0) gm/dL MCV (80.0-100.0) fL MCH (25.0-35.0) pg MCHC (31.0-37.0) g/dL RDW (11.5-15.5) % Plt Count (150-450) k/uL Lymphocytes # (1.0-4.8) k/uL Chloride (98-107) mmol/L BUN (7-17) mg/dL Glucose (74-99) mg/dL POC Glucose (mg/dL) 200 H 163 H 165 H (70-110) mg/dL Calcium (8.4-10.2) mg/dL AST (14-36) U/L ALT (4-34) U/L Total Protein (6.3-8.2) g/dL Albumin (3.5-5.0) g/dL 12/25/23 12/25/23 12/25/23 Range/Units 05:00 05:00 05:16 Hgb 9.8 L (11.4-16.0) gm/dL MCV 75.4 L (80.0-100.0) fL MCH 21.4 L (25.0-35.0) pg MCHC 28.4 L (31.0-37.0) g/dL RDW 19.5 H (11.5-15.5) % Plt Count 125 L (150-450) k/uL Lymphocytes # 0.5 L (1.0-4.8) k/uL Chloride 115 H (98-107) mmol/L BUN 39 H (7-17) mg/dL Glucose 217 H (74-99) mg/dL POC Glucose (mg/dL) 224 H (70-110) mg/dL Calcium 8.2 L (8.4-10.2) mg/dL AST 345 H (14-36) U/L ALT 810 H (4-34) U/L Total Protein 5.1 L (6.3-8.2) g/dL Albumin 2.8 L (3.5-5.0) g/dL 12/25/23 12/25/23 Range/Units 08:45 11:28 Hgb (11.4-16.0) gm/dL MCV (80.0-100.0) fL MCH (25.0-35.0) pg MCHC (31.0-37.0) g/dL RDW (11.5-15.5) % Plt Count (150-450) k/uL Lymphocytes # (1.0-4.8) k/uL Chloride (98-107) mmol/L BUN (7-17) mg/dL Glucose (74-99) mg/dL POC Glucose (mg/dL) 194 H 208 H (70-110) mg/dL Calcium (8.4-10.2) mg/dL AST (14-36) U/L ALT (4-34) U/L Total Protein (6.3-8.2) g/dL Albumin (3.5-5.0) g/dL Microbiology - Last 24 Hours (Table) 12/23/23 08:26 Gram Stain - Final Sputum Sputum Culture - Final 12/23/23 10:11 Blood Culture - Preliminary Blood
[2023-12-25 16:10] LABS: Glucose,Whole Blood 260 mg/dL (70-110)
[2023-12-25] MEDS: AMIODARONE 360 MG in DEXTROSE 5% IN WATER 200 ML IV ONE (18:52)
[2023-12-25 19:50] LABS: Glucose,Whole Blood 251 mg/dL (70-110)
[2023-12-25 23:52] LABS: Glucose,Whole Blood 165 mg/dL (70-110)
[2023-12-26] MEDS: AMIODARONE 450 MG in DEXTROSE 5% IN WATER 250 ML IV SCH (00:38)
[2023-12-26 04:24] LABS: Anisocytosis Slight; Basophils % (A) 0 %; Eosinophils # (A) 0.1 k/uL (0-0.7); Eosinophils % (A) 1 %; HGB 10.7 gm/dL (11.4-16.0); Hypochromasia Marked; Lymphocytes # (A) 0.6 k/uL (1.0-4.8); Lymphocytes % (A) 6 %; MCH 20.8 pg (25.0-35.0); MCHC 28.8 g/dL (31.0-37.0); MCV 72.3 fL (80.0-100.0); Mean Platelet Volume 8.6; Microcytosis Marked; Monocytes # (A) 0.3 k/uL (0-1.0); Monocytes % (A) 3 %; Neutrophils # (A) 8.5 k/uL (1.3-7.7); Neutrophils % (A) 90 %; Platelet Count 115 k/uL (150-450); RBC 5.12 m/uL (3.80-5.40); RDW 19.6 % (11.5-15.5); WBC 9.5 k/uL (3.8-10.6)
[2023-12-26 04:24] LABS: Glucose,Whole Blood 149 mg/dL (70-110)
[2023-12-26 04:30] LABS: AST 346 U/L (14-36); African American GFR (CKD) >90 (>60 ml/min/1.73 sqM); Albumin 2.9 g/dL (3.5-5.0); Alkaline Phosphatase 33 U/L (38-126); Anion Gap 1 mmol/L; Blood Urea Nitrogen 26 mg/dL (7-17); Calcium 8.1 mg/dL (8.4-10.2); Carbon Dioxide 25 mmol/L (22-30); Chloride 109 mmol/L (98-107); Glucose 142 mg/dL (74-99); Non-African American GFR(CKD) >90 (>60 ml/min/1.73 sqM); Sodium 135 mmol/L (137-145); Total Bilirubin 1.3 mg/dL (0.2-1.3); Total Protein 5.4 g/dL (6.3-8.2)
[2023-12-26 04:41] LABS: ALT 1082 U/L (4-34); Potassium 5.3 mmol/L (3.5-5.1)
[2023-12-26 07:58] LABS: Glucose,Whole Blood 140 mg/dL (70-110)
--- NOTE | 2023-12-26 09:23 | P.PN ---
Subjective Progress Note Date: 12/26/23 Mari Moore, is a 73 year old female who presented to [facility] with a chief complaint of worsening shortness of breath. Patient reports she's had a nonproductive cough and generalized weakness and upper respiratory symptoms over the past few days. Patient has an extensive medical history including asthma, heart failure, COPD, coronary artery disease with previous history of CABG, diabetes mellitus, fibromyalgia, sleep apnea, ex- smoker and current marijuana user. Chest x-ray completed in ER showing no acute pulmonary infiltrate. Current vital signs showing temperature 97.6, heart rate 97, respiratory 18, blood pressure 98/49 with a pulse ox of 96% on room air patient testing negative for influenza RSV and COVID-19. UA negative. Troponins negative 2. BNP elevated at 2130. White blood cell within normal limits hemoglobin 8.9 at this time primary service is consulted. Will consult cardiology services in order 2-D echo. Iron studies ordered for anemia patient started on IV Solu-Medrol DuoNeb breathing treatments. At this time pulmonary and cardiology services consulted. Continue azithromycin for upper respiratory infection. Iron studies for low hemoglobin. On 12/18/2023 patient was seen and examined in the ICU her condition has worsened this morning, she was having severe continuous cough and shortness of breath, she had decrease in her O2 sat duration, she was transferred to intensive care unit, chest x-ray revealed significant worsening since x-ray done on 12/16/2023 with large right middle lobe and right lower lobe infiltrates, possibly related to aspiration. At this time patient is intubated, sedated started on mechanical ventilation, IV Zosyn was added to her medication regimen, pulmonary critical care following. On 12/19/2023 patient remains in the ICU on mechanical ventilation FiO2 40%. Patient remains on IV sedation. Levophed has been DC'd. Patient remains on IV steroids and IV antibiotics. Pulmonary and cardiology services following. ABGs this a.m. pH 7.36, pCO2 40, pO2 189, HCO3 23 and total CO2 24. On 12/20/2023 patient remains in the ICU on mechanical ventilation FiO2 30%. Liver enzymes trending down AST 222 ALT 390. ABGs this a.m. pH 7.40, pCO2 38, pO2 126 sodium bicarb 24. Patient remains on IV Zosyn and IV vancomycin. Patient dakotah on IV steroids. On 12/21/2023 patient was seen and examined in the ICU she is intubated sedated maintained on mechanical ventilation, vital exam of this morning reveals a temp erature of 99.4 heart rate 87 respiration 27 blood pressure 100/68 pulse ox 95% on FiO2 of 30% Arterial blood gas reveals pH 7.4 pCO2 39 CO2 94 liver enzymes remain elevated with ALT at 319 and AST at 222 patient is maintained on IV antibiotics Zosyn she also remains on pressure support. On 12/22/2023 patient was seen and examined in the ICU she is intubated sedated maintained on mechanical ventilation vital examination reveals a temperature of 99.4 pulse 92 respiration 20 blood pressure 106/69 pulse ox 97 percent on FiO2 of 30% she remains on assist control tidal volume 350 rate of 20 FiO2 30% and a PEEP of 5. Arterial blood gas reveals a pH of 7.44 pCO2 45 pO2 99 white blood count 5.3 hemoglobin 9.2 platelet count 213 BUN 49 creatinine 0.99 patient remains on pressure support with norepinephrine she remains on IV antibiotic Zosyn, pulmonary critical care, and cardiology are following. On 12/23/2023 patient was seen and examined in the ICU she is intubated sedated maintained on mechanical ventilation, vital exam reveals a temperature of 100.2, respiration 25 pulse 88 blood pressure 130/69 pulse ox 100% on FiO2 50% currently patient is back on assist control rate of 20 tidal volume 350 FiO2 50% with PEEP of 5 arterial blood gas reveals pH of 7.5 to pCO2 47 CO2 130 potassium is low at 2.5 and is being corrected. She is still having episodes of fever, she is maintained on IV Zosyn, repeat blood culture ordered, infectious disease consultation requested. On 12/24/2023 patient was seen and examined in the ICU she is intubated sedated maintained on mechanical ventilation, nursing is reporting that patient has not had a bowel movement for several days, otherwise patient seems to be stable. Vital exam reveals a temperature of 99.3 pulse 84 respiration 22 blood pressure 104/55 pulse ox is 100% on mechanical ventilation. At this time patient is maintained on assist control tidal volume 350 rate of 20 FiO2 40% with a PEEP of 5 arterial blood gas this morning reveals a pH of 7.43 pCO2 48 pO2 134 BUN is elevated at 51 creatinine 1.09 there is elevation in liver enzymes with AST at 139 and a LT at 560 On 12/25/2023 patient was seen and examined in the ICU she is alert and oriented 3 in no apparent distress she was extubated yesterday she is maintained on oxygen at 5 L via nasal cannula, she denies any complaints at this time there is no fever or chills no headache or dizziness no chest pain no shortness of breath no cough no nausea or vomiting no abdominal pain no diarrhea and no urinary symptoms vital examination reveals a temperature of 98 pulse 104 respiration 18 blood pressure 108/95 pulse ox 99% on 5 L nasal cannula, laboratory data reveals a white blood count of 8.0 hemoglobin 9.8 platelet count 125 BUN 39 creatinine 0.83 on 12/26/2023 patient remains in the intensive care unit alert and oriented 3. Patient currently on 2 L nasal cannula. Patient was started on amiodarone per cardiology. Current vital signs temp 97.6, heart rate 62, respiratory rate 19, blood pressure 107/65 pulse ox 99% on 2 L. Objective - Vital Signs Vital signs: Vital Signs Temp 97.6 F 12/26/23 00:00 Pulse 66 12/26/23 08:56 Resp 17 12/26/23 06:00 BP 99/56 12/26/23 06:00 Pulse Ox 96 12/26/23 06:00 FiO2 35 12/24/23 21:00 Intake & Output 12/25/23 12/26/23 12/26/23 18:59 06:59 18:59 Intake Total 1373 843.3 60 Output Total 915 575 30 Balance 458 268.3 30 Weight 78.1 kg 85.4 kg Intake: IV 813 810 60 0.9 KVO 50 110 10 A- line .9 @3cc/hr 3 Dextrose 5% in Water 1, 560 600 50 000 ml @ 50 mls/hr IV . Q20H [facility] Rx#:[id number] Piperacillin-Tazobactam 3 200 100 .375 gm In Sodium Chloride 0.9% 100 ml @ 25 mls/hr IVPB Q8HR [facility] Rx# :[id number] Intake, IV Titration 100 33.3 Amount Amiodarone 360 mg In 33.3 Dextrose 5% in Water 200 ml @ 1 MG/MIN 33.333 mls/ hr IV .Q6H [facility] Rx#: [id number] Potassium Chloride 10 meq 100 In Water For Injection 1 100ml.bag @ 100 mls/hr IVPB Q1H [facility] Rx#: [id number] Oral 460 Output: Urine 915 575 30 Other: Voiding Method Indwelling Catheter Indwelling Catheter # Bowel Movements 1 ABP, PAP, CO, CI - Last Documented Arterial Blood Pressure 104/64 - Exam In general patient is intubated sedated maintained on mechanical ventilation Head normocephalic and atraumatic Neck supple no JVD no goiter Lungs exam reveals coarse crackles bilaterally no wheezing Heart regular rate and rhythm S1-S2, no rub or gallop Abdomen is soft nontender nondistended positive bowel sounds no hepatosplenomegaly Extremities no edema Neuro no gross focal deficit - Labs CBC & Chem 7: 12/26/23 03:58 12/26/23 03:58 Labs: Abnormal Lab Results - Last 24 Hours (Table) 12/25/23 12/25/23 12/25/23 Range/Units 11:28 16:08 19:48 Hgb (11.4-16.0) gm/dL MCV (80.0-100.0) fL MCH (25.0-35.0) pg MCHC (31.0-37.0) g/dL RDW (11.5-15.5) % Plt Count (150-450) k/uL Neutrophils # (1.3-7.7) k/uL Lymphocytes # (1.0-4.8) k/uL Sodium (137-145) mmol/L Potassium (3.5-5.1) mmol/L Chloride (98-107) mmol/L BUN (7-17) mg/dL Creatinine (0.52-1.04) mg/dL Glucose (74-99) mg/dL POC Glucose (mg/dL) 208 H 260 H 251 H (70-110) mg/dL Calcium (8.4-10.2) mg/dL AST (14-36) U/L ALT (4-34) U/L Alkaline Phosphatase (38-126) U/L Total Protein (6.3-8.2) g/dL Albumin (3.5-5.0) g/dL 12/25/23 12/26/23 12/26/23 Range/Units 23:51 03:58 03:58 Hgb 10.7 L (11.4-16.0) gm/dL MCV 72.3 L (80.0-100.0) fL MCH 20.8 L (25.0-35.0) pg MCHC 28.8 L (31.0-37.0) g/dL RDW 19.6 H (11.5-15.5) % Plt Count 115 L (150-450) k/uL Neutrophils # 8.5 H (1.3-7.7) k/uL Lymphocytes # 0.6 L (1.0-4.8) k/uL Sodium 135 L (137-145) mmol/L Potassium 5.3 H (3.5-5.1) mmol/L Chloride 109 H (98-107) mmol/L BUN 26 H (7-17) mg/dL Creatinine 0.46 L (0.52-1.04) mg/dL Glucose 142 H (74-99) mg/dL POC Glucose (mg/dL) 165 H (70-110) mg/dL Calcium 8.1 L (8.4-10.2) mg/dL AST 346 H (14-36) U/L ALT 1082 H (4-34) U/L Alkaline Phosphatase 33 L (38-126) U/L Total Protein 5.4 L (6.3-8.2) g/dL Albumin 2.9 L (3.5-5.0) g/dL 12/26/23 12/26/23 Range/Units 04:23 07:55 Hgb (11.4-16.0) gm/dL MCV (80.0-100.0) fL MCH (25.0-35.0) pg MCHC (31.0-37.0) g/dL RDW (11.5-15.5) % Plt Count (150-450) k/uL Neutrophils # (1.3-7.7) k/uL Lymphocytes # (1.0-4.8) k/uL Sodium (137-145) mmol/L Potassium (3.5-5.1) mmol/L Chloride (98-107) mmol/L BUN (7-17) mg/dL Creatinine (0.52-1.04) mg/dL Glucose (74-99) mg/dL POC Glucose (mg/dL) 149 H 140 H (70-110) mg/dL Calcium (8.4-10.2) mg/dL AST (14-36) U/L ALT (4-34) U/L Alkaline Phosphatase (38-126) U/L Total Protein (6.3-8.2) g/dL Albumin (3.5-5.0) g/dL Microbiology - Last 24 Hours (Table) 12/23/23 10:11 Blood Culture - Preliminary Blood 12/23/23 08:26 Gram Stain - Final Sputum Sputum Culture - Final Assessment and Plan Assessment: 1. Acute exacerbation of COPD. 2. Acute on chronic exacerbation of systolic CHF 3. Anemia. Iron studies ordered 4. Cardiomyopathy with an EF of 30-35% 5. History of non-STEMI September 2023 status post cardiac cath showing 80% stenosis of the stent patent 6. History of coronary artery disease disease status post CABG 7. History of diabetes mellitus type II 8. History of essential hypertension 9. History of hyperlipidemia. 10. Acute hypoxic respiratory failure requiring intubation and mechanical ventilation on 12/18/2023 11. Right middle lobe and right lower lobe infiltrates, suggestive of pneumonia, possible aspiration. DVT prophylaxis Lovenox. GI prophylaxis Protonix Cardiology and pulmonary service is consulted. Patient extubated Maintained on IV Zosyn Maintained on IV Solu-Medrol iron studies ordered
[2023-12-26 11:43] LABS: Glucose,Whole Blood 188 mg/dL (70-110)
--- NOTE | 2023-12-26 12:55 | P.PN ---
Subjective Progress Note Date: 12/25/23 Principal diagnosis: Reason for follow-up is fever Patient is a 73-year-old female with a past medical history significant for diabetes mellitus hypertension hyperlipidemia fibromyalgia COPD coronary disease patient presenting to the hospital on 12/16/2023 for evaluation of chest congestion and cough and increasing shortness of breath, patient got reintubated and did spike a fever prompting this consultation. On today's visit that is12/25/2023, Patient did have resolution of fever and the patient has been extubated patient is currently on 2 L nasal cannula oxygen and denies having chest pain continue have a cough not bring up any sputum, the patient denies any nausea vomiting did not have any abdominal pain and no diarrhea. Patient white count is 8.0, creatinine 0.83 Objective - Vital Signs Vital signs: Vital Signs Temp 97.9 F 12/25/23 12:00 Pulse 90 12/25/23 12:00 Resp 21 12/25/23 12:00 BP 132/67 12/25/23 12:00 Pulse Ox 95 12/25/23 12:00 FiO2 35 12/24/23 21:00 Intake & Output 12/24/23 12/25/23 12/25/23 18:59 06:59 18:59 Intake Total 1142.717 690.177 613 Output Total 1295 675 495 Balance -152.283 15.177 118 Weight 78.1 kg Intake: IV 986 633 413 0.9 KVO 10 50 A- line .9 @3cc/hr 36 33 3 D5W 50 Dextrose 5% in Water 1, 600 470 260 000 ml @ 50 mls/hr IV . Q20H [facility] Rx#:[id number] Invasive Line 4 90 30 Piperacillin-Tazobactam 3 200 100 100 .375 gm In Sodium Chloride 0.9% 100 ml @ 25 mls/hr IVPB Q8HR [facility] Rx# :[id number] Intake, IV Titration 110.717 57.177 100 Amount Dexmedetomidine/0.9% NaCl 57.177 (Pmx) 400 mcg In Empty Bag 1 bag @ 0.2 MCG/KG/HR 3.905 mls/hr IV .Q24H [facility] Rx#:[id number] Norepinephrine 4 mg In 49.152 Sodium Chloride 0.9% 250 ml @ 0.03 MCG/KG/MIN 9. 332 mls/hr IV .Q24H [facility] Rx#:[id number] Potassium Chloride 10 meq 100 In Water For Injection 1 100ml.bag @ 100 mls/hr IVPB Q1H [facility] Rx#: [id number] fentaNYL (PF). 1,000 mcg 32.89 In Sodium Chloride 0.9% 80 ml @ 0.5 MCG/KG/HR 4.4 mls/hr IV .[id number] [facility] Rx#:[id number] propofoL 1,000 mg In 28.675 Empty Bag 1 bag @ 15 MCG/ KG/MIN 7.785 mls/hr IV . [id number] [facility] Rx#:[id number] Oral 0 100 Tube Feeding 46 Other 0 Output: Gastric Drainage 50 Urine 1245 675 495 Other: Voiding Method Indwelling Catheter Indwelling Catheter Indwelling Catheter # Bowel Movements 0 ABP, PAP, CO, CI - Last Documented Arterial Blood Pressure 104/64 - Exam GENERAL DESCRIPTION: An elderly female lying in bed in no distress RESPIRATORY SYSTEM: Unlabored breathing , coarse breath sounds bilaterally HEART: S1 S2 regular rate and rhythm , ABDOMEN: Soft , no tenderness EXTREMITIES: No edema feet - Labs CBC & Chem 7: 12/26/23 03:58 12/26/23 03:58 Labs: Abnormal Lab Results - Last 24 Hours (Table) 12/24/23 12/24/23 12/24/23 Range/Units 15:22 17:48 20:25 Hgb (11.4-16.0) gm/dL MCV (80.0-100.0) fL MCH (25.0-35.0) pg MCHC (31.0-37.0) g/dL RDW (11.5-15.5) % Plt Count (150-450) k/uL Lymphocytes # (1.0-4.8) k/uL Chloride (98-107) mmol/L BUN (7-17) mg/dL Glucose (74-99) mg/dL POC Glucose (mg/dL) 192 H 200 H 163 H (70-110) mg/dL Calcium (8.4-10.2) mg/dL AST (14-36) U/L ALT (4-34) U/L Total Protein (6.3-8.2) g/dL Albumin (3.5-5.0) g/dL 12/25/23 12/25/2312/24/24 Range/Units 00:35 05:00 05:00 Hgb 9.8 L (11.4-16.0) gm/dL MCV 75.4 L (80.0-100.0) fL MCH 21.4 L (25.0-35.0) pg MCHC 28.4 L (31.0-37.0) g/dL RDW 19.5 H (11.5-15.5) % Plt Count 125 L (150-450) k/uL Lymphocytes # 0.5 L (1.0-4.8) k/uL Chloride 115 H (98-107) mmol/L BUN 39 H (7-17) mg/dL Glucose 217 H (74-99) mg/dL POC Glucose (mg/dL) 165 H (70-110) mg/dL Calcium 8.2 L (8.4-10.2) mg/dL AST 345 H (14-36) U/L ALT 810 H (4-34) U/L Total Protein 5.1 L (6.3-8.2) g/dL Albumin 2.8 L (3.5-5.0) g/dL 12/25/23 12/25/23 12/25/23 Range/Units 05:16 08:45 11:28 Hgb (11.4-16.0) gm/dL MCV (80.0-100.0) fL MCH (25.0-35.0) pg MCHC (31.0-37.0) g/dL RDW (11.5-15.5) % Plt Count (150-450) k/uL Lymphocytes # (1.0-4.8) k/uL Chloride (98-107) mmol/L BUN (7-17) mg/dL Glucose (74-99) mg/dL POC Glucose (mg/dL) 224 H 194 H 208 H (70-110) mg/dL Calcium (8.4-10.2) mg/dL AST (14-36) U/L ALT (4-34) U/L Total Protein (6.3-8.2) g/dL Albumin (3.5-5.0) g/dL Microbiology - Last 24 Hours (Table) 12/23/23 10:11 Blood Culture - Preliminary Blood 12/23/23 08:26 Gram Stain - Preliminary Sputum Assessment and Plan (1) Allergy to multiple antibiotics Current Visit: No Status: Acute Code(s): Z88.1 - ALLERGY STATUS TO OTHER ANTIBIOTIC AGENTS SNOMED Code(s): 532728261 (2) Aspiration pneumonia Current Visit: No Status: Acute Code(s): J69.0 - PNEUMONITIS DUE TO INHALATION OF FOOD AND VOMIT SNOMED Code(s): 846303558 Plan: 1patient with a fever and this patient presented to the hospital with increasing shortness of breath was intubated got extubated and has to be reintubated because of worsening respiratory status with a fever subsequently possible pulmonary source as the patient abdominal soft on clinical examination and no evidence of any cellulitis or joint swelling 2-bilateral sputum culture currently pending 3patient did have resolution of her fever, cultures currently pending to continue with the Zosyn while waiting for the cultures to be finalized Dictation was produced using [employer] dictation software. please excuse any g rammatical, word or spelling errors. Time with Patient: Less than 30
--- NOTE | 2023-12-26 12:58 | P.PN ---
Subjective Progress Note Date: 12/26/23 Principal diagnosis: Reason for follow-up is fever Patient is a 73-year-old female with a past medical history significant for diabetes mellitus hypertension hyperlipidemia fibromyalgia COPD coronary disease patient presenting to the hospital on 12/16/2023 for evaluation of chest congestion and cough and increasing shortness of breath, patient got reintubated and did spike a fever prompting this consultation. On today's visit that is 12/26/2023,the patient denies any fever or any chills, patient is breathing comfortably on 2 L nasal cannula oxygen , the patient d enies chest pain shortness of breath and no worsening cough, patient denies abdominal pain, no nausea vomiting or diarrhea. Patient white count is 9.5, creatinine 0.46, blood and sputum culture has been negative so far Objective - Vital Signs Vital signs: Vital Signs Temp 97.6 F 12/26/23 00:00 Pulse 62 12/26/23 12:00 Resp 15 12/26/23 12:00 BP 138/73 12/26/23 12:00 Pulse Ox 96 12/26/23 12:00 FiO2 35 12/24/23 21:00 Intake & Output 12/25/23 12/26/23 12/26/23 18:59 06:59 18:59 Intake Total 1373 843.3 285 Output Total 915 575 230 Balance 458 268.3 55 Weight 78.1 kg 85.4 kg Intake: IV 813 810 210 0.9 KVO 50 110 10 A- line .9 @3cc/hr 3 Dextrose 5% in Water 1, 560 600 200 000 ml @ 50 mls/hr IV . Q20H [facility] Rx#:[id number] Piperacillin-Tazobactam 3 200 100 .375 gm In Sodium Chloride 0.9% 100 ml @ 25 mls/hr IVPB Q8HR [facility] Rx# :[id number] Intake, IV Titration 100 33.3 Amount Amiodarone 360 mg In 33.3 Dextrose 5% in Water 200 ml @ 1 MG/MIN 33.333 mls/ hr IV .Q6H [facility] Rx#: [id number] Potassium Chloride 10 meq 100 In Water For Injection 1 100ml.bag @ 100 mls/hr IVPB Q1H [facility] Rx#: [id number] Oral 460 75 Output: Urine 915 575 230 Other: Voiding Method Indwelling Catheter Indwelling Catheter Indwelling Catheter # Bowel Movements 1 ABP, PAP, CO, CI - Last Documented Arterial Blood Pressure 104/64 - Exam GENERAL DESCRIPTION: An elderly female lying in bed in no distress RESPIRATORY SYSTEM: Unlabored breathing , coarse breath sounds bilaterally HEART: S1 S2 regular rate and rhythm , ABDOMEN: Soft , no tenderness EXTREMITIES: No edema feet - Labs CBC & Chem 7: 12/26/23 03:58 12/26/23 03:58 Labs: Abnormal Lab Results - Last 24 Hours (Table) 12/25/23 12/25/23 12/25/23 Range/Units 16:08 19:48 23:51 Hgb (11.4-16.0) gm/dL MCV (80.0-100.0) fL MCH (25.0-35.0) pg MCHC (31.0-37.0) g/dL RDW (11.5-15.5) % Plt Count (150-450) k/uL Neutrophils # (1.3-7.7) k/uL Lymphocytes # (1.0-4.8) k/uL Sodium (137-145) mmol/L Potassium (3.5-5.1) mmol/L Chloride (98-107) mmol/L BUN (7-17) mg/dL Creatinine (0.52-1.04) mg/dL Glucose (74-99) mg/dL POC Glucose (mg/dL) 260 H 251 H 165 H (70-110) mg/dL Calcium (8.4-10.2) mg/dL AST (14-36) U/L ALT (4-34) U/L Alkaline Phosphatase (38-126) U/L Total Protein (6.3-8.2) g/dL Albumin (3.5-5.0) g/dL 12/26/23 12/26/23 12/26/23 Range/Units 03:58 03:58 04:23 Hgb 10.7 L (11.4-16.0) gm/dL MCV 72.3 L (80.0-100.0) fL MCH 20.8 L (25.0-35.0) pg MCHC 28.8 L (31.0-37.0) g/dL RDW 19.6 H (11.5-15.5) % Plt Count 115 L (150-450) k/uL Neutrophils # 8.5 H (1.3-7.7) k/uL Lymphocytes # 0.6 L (1.0-4.8) k/uL Sodium 135 L (137-145) mmol/L Potassium 5.3 H (3.5-5.1) mmol/L Chloride 109 H (98-107) mmol/L BUN 26 H (7-17) mg/dL Creatinine 0.46 L (0.52-1.04) mg/dL Glucose 142 H (74-99) mg/dL POC Glucose (mg/dL) 149 H (70-110) mg/dL Calcium 8.1 L (8.4-10.2) mg/dL AST 346 H (14-36) U/L ALT 1082 H (4-34) U/L Alkaline Phosphatase 33 L (38-126) U/L Total Protein 5.4 L (6.3-8.2) g/dL Albumin 2.9 L (3.5-5.0) g/dL 12/26/23 12/26/23 Range/Units 07:55 11:41 Hgb (11.4-16.0) gm/dL MCV (80.0-100.0) fL MCH (25.0-35.0) pg MCHC (31.0-37.0) g/dL RDW (11.5-15.5) % Plt Count (150-450) k/uL Neutrophils # (1.3-7.7) k/uL Lymphocytes # (1.0-4.8) k/uL Sodium (137-145) mmol/L Potassium (3.5-5.1) mmol/L Chloride (98-107) mmol/L BUN (7-17) mg/dL Creatinine (0.52-1.04) mg/dL Glucose (74-99) mg/dL POC Glucose (mg/dL) 140 H 188 H (70-110) mg/dL Calcium (8.4-10.2) mg/dL AST (14-36) U/L ALT (4-34) U/L Alkaline Phosphatase (38-126) U/L Total Protein (6.3-8.2) g/dL Albumin (3.5-5.0) g/dL Microbiology - Last 24 Hours (Table) 12/23/23 10:11 Blood Culture - Preliminary Blood 12/23/23 08:26 Gram Stain - Final Sputum Sputum Culture - Final Assessment and Plan (1) Allergy to multiple antibiotics Current Visit: No Status: Acute Code(s): Z88.1 - ALLERGY STATUS TO OTHER ANTIBIOTIC AGENTS SNOMED Code(s): 317734229 (2) Aspiration pneumonia Current Visit: No Status: Acute Code(s): J69.0 - PNEUMONITIS DUE TO INHALATION OF FOOD AND VOMIT SNOMED Code(s): 982401601 Plan: 1patient with a fever and this patient presented to the hospital with increasing shortness of breath was intubated got extubated and has to be reintubated because of worsening respiratory status with a fever subsequently possible pulmonary source as the patient abdominal soft on clinical examination and no evidence of any cellulitis or joint swelling 2-blood and sputum sputum culture so far negative 3patient did have resolution of her fever, cultures so far negative for resistant pathogen we will continue with the Zosyn and monitor clinical course closely Dictation was produced using [employer] dictation software. please excuse any grammatical, word or spelling errors. Time with Patient: Less than 30
--- NOTE | 2023-12-26 12:59 | P.PN ---
Subjective Progress Note Date: 12/26/23 Principal diagnosis: Acute hypoxic respiratory failure secondary to multifocal pneumonia On 12/18/2023, the patient is being seen in follow-up on the medical floor. The patient was found to be in significant degree of respiratory distress and the patient was using some accessory muscles of breathing. She was having frequent coughing episode and she was unable to catch her breath in between those coughing episodes. She was still responsive and communicating. At that point, I made recommendations to transfer this patient to the intensive care unit for further monitoring. Within 20 minutes, the patient became more diaphoretic, lethargic, quite obtunded and at that point, the patient had to be intubated and placed on the mechanical ventilator. I personally intubated the patient in the intensive care unit. I have her on a tidal volume of 350, rate of 24 with an FiO2 of 100% with a PEEP of 5. Postintubation chest x-ray showed extensive consolidation of the right lung and there is new airspace disease throughout the right lung along with some areas of consolidations and interstitial changes. Post NG tube insertion, the patient's stomach was decompressed and there was total amount of 500 cc of gastric material aspirated from the stomach. No reported aspiration. Obviously, the patient has multifocal pneumonia at this point in time more extensive in the right lung especially in the right middle and right lower lobe area. The white cell count at 7.1 with a hemoglobin 8.8, BUN is at 15 with a creatinine of 0.5 and sodium levels at 137. Potassium level is at 4.2. The patient was started on propofol for sedation. She was given also a dose of Nimbex during the intubation process 10 mg IV x 1. Blood gas are still pending. She may need a bronchoscopy and right lower lobe bronchoalveolar lavage. She remains on bronchodilators. She remains on steroids. Antibiotics will be modified and Zosyn will be added in combination with Zithromax. She has not required any pressors yet. She will be given a bolus of 1 L and following that she will be started on a maintenance of 100 cc an hour. Condition is obviously is critical at this point in time. Echocardiogram that was obtained on 10/19/2023 showed systolic heart failure with an underlying left ventricular ejection fraction of 30 to 35%. The patient also had mild RV dilatation, mild aortic regurgitation, mild to moderate mitral Regurgitation with a right ventricular systolic pressure of 32. He also has moderate degree of pulm hypertension. On today's evaluation of 12/19/2023, the patient is intubated on the mechanical ventilator. Overnight, the patient was kept intubated and the patient is sedated adequately with propofol which is running at 35 mcg/kg/min. As mentioned, the patient developed an extensive right lung pneumonia with respiratory failure requiring intubation mechanical ventilation. She currently has a #7.5 orotracheal tube. She is on assist-control mode of mechanical ventilation at a rate of 30, tidal volume of 350, FiO2 of 40% and a PEEP of 5. The peak airway pressure is around 25. The chest x-ray from today showing bilateral pleural effusion and significant consolidation of the right lung base and there is also some limited infiltration of the left lung base. I performed a bronchoscopy on this patient yesterday endobronchial lavage of the right lower lobe was obtained. The results are still pending for now. Meanwhile, the patient was covered with broad-spectrum antibiotic coverage and she is currently on a combination of Zosyn, Zithromax and vancomycin. The peak airway pressure is ranging between 21 and 23. The blood gas shows improvement in the pH is currently up to 7.36 with a pCO2 of 40 and pO2 of 189. Note that the patient was also given 2 doses of bicarb yesterday as the patient was quite acidotic. Rest of the blood work from today shows a WBC count of 9.9, hemoglobin of 9.1 and a platelet count of 288. Sodium is at 143,. Potassium level is at 3.8, BUN is at 25 with a creatinine of 0.9. LFTs are elevated with an AST of 525 and ALT of 448 and a bilirubin of 0.8. Her urine drug screen is positive for cannabis and the patient admits to smoke marijuana on a daily basis approximately 2 joints a day. She is on DuoNeb nebulized treatments [id number]. She is also on a combination of Perforomist and Pulmicort updrafts. She remains on IV Solu-Medrol. She is also on Lovenox 40 mg subcu for DVT prophylaxis. Feeding has not been started yet. Echocardiogram that was done on 10/19/2023 showed impaired LV function with an ejection fraction of 30 to 35%. We have not encountered any hypotension on this patient. She was quite tachycardic yesterday and she was placed briefly on norepinephrine yesterday for some li mited hypotension and this ultimately improved and her current mean arterial pressure is around 74. She is on insulin drip running at 3 units an hour. Blood sugars under better control for now. On 12/20/2023, the patient remains intubated on the mechanical ventilator. Note that the patient is also sedated with a combination of fentanyl and propofol. The propofol is running at 35 mcg/kg/min and the patient is also on fentanyl 0.5 mcg/kg/h. Adequately sedated and the patient is synchronous with mechanical ventilator. She is currently at a rate of 30, tidal volume of 350, FiO2 is down to 30% with a PEEP of 5. The follow-up chest x-ray showsNo significant consolidation. There is improved in the right lower lobe consolidation. There is also cardiomegaly and CHF with interstitial edema and small bilateral pleural effusion. ET tube remains in a good location. As for the blood gas, the patient has a pH of 7.4 with a pCO2 of 38 and pO2 of 126 and this was on FiO2 of 40%. No significant orotracheal secretions. Bronchoscopy endobronchial done but results are still pending for now and there is no significant microbial growth. The blood cultures been negative. On blood work, the patient's white cell count is 5.9 with a hemoglobin of 8.5 and a platelet count of 236. Sodium is 145, potassium is at 4, BUN is at 33 with a creatinine of 0.9. Viral screen has been negative. Legionella urine antigen has been negative. The patient is also receiving enteral feeding for nutritional support. The patient is currently on vital high-protein at the rate of 30 cc an hour and the patient is also on insulin drip at 5 units an hour. Overall fluid balance is +1.5 L over the past 24 hours. On 12/21/2023, the patient is being seen for a follow-up. The patient remains intubated and mechanically ventilated. She is calm and comfortable on a combination of propofol and fentanyl. Propofol is running at 35 mcg/kg/min and fentanyl is running at 0.5 mcg/kg/h. The patient remains intubated on mechanical ventilator. This morning, she is on assist-control of 20, tidal volume of 350, FiO2 of 30% with a PEEP of 5. She is calm and comfortable and synchronous with mechanical ventilator. Chest x-ray showing cardiomegaly and pulm vascular congestion at the bronchoscopy endobronchial lavage that was done earlier yielded no microbial growth thus far. Based on that, I am going to dis continue the vancomycin and keep the patient on a combination of Zosyn and Zithromax. Otherwise, the fluid balance is positive and the patient will be started on more aggressive diuresis. The patient remains on vital high-protein at the rate of 32 cc an hour. The chest x-ray from today is consistent with CHF Along with some lower lobe consolidation bilaterally and the possibility of pneumonia cannot be completely excluded. The white cell count is 4.5, hemoglobin is 8.5 and a platelet count is at 245. Sodium is at 145 with a potassium level of 3.8, BUN is 43 with a creatinine of 1.0. LFTs are essentially improving and the AST is down to 222 and the ALT is down to 3019. Cultures are negative. Antibiotics are mentioned and they will include a combination of Zosyn Zithromax and vancomycin will be discontinued. Noted the patient was given a sedation holiday yesterday and during the process the patient had a an episode of SVT. The patient was given adenosine and following that the patient was placed on Cardizem and currently she is off Cardizem and the cardiac rhythm is back into normal sinus rhythm. No other significant events overnight. No fever or chills. No hemodynamic instability. She is known to have cardiomyopathy with impaired LV function. The patient remains on insulin drip at 6 units an hour. Afebrile. Hemodynamically stable. No pressors. 12/22/2023, the patient is being seen in follow-up. Remains intubated on the mechanical ventilator. This morning, she remains on propofol at 30 mcg/kg/min and fentanyl is at 0.5 mcg/kg/h. She is on assist-control mode with rate of 20, tidal volume of 350, FiO2 is down to 30% with a PEEP of 5. Peak airway pressur es of 21. Blood gas showed a pH of 7.44 with a pCO2 of 45 and a pO2 of 99. The chest x-ray from today shows cardiomegaly and bilateral pleural effusions slightly worse on the right. There is no airspace disease or consolidations. The patient is hemodynamically stable. The patient is on no pressors. The white cell count of 5.3 with a hemoglobin of 9.2. Sodium is at 146 and a potassium level of 3.3, chloride is 111, bicarb is 31 with a BUN of 49 and a creatinine of 0.99. Bronchoscopy has not yielded any microbial growth. Vancomycin was discontinued yesterday the patient remains on a combination of Zosyn and and Zithromax. The patient is also being diuresed with IV Lasix 40 mg IV every 12 hours. Fluid balance is -3.9 L over the past 24 hours and the patient's volume status being further optimized. The patient is also on enteral feeding for nutritional support and she is on vital high-protein at the rate of 32 cc an hour. Insulin drip is at 6 units an hour. The patient has adequate blood sugar control. The patient is afebrile. No other significant events overnight. On 12/23/2023, the patient is being seen for a follow-up. The patient had a long and a lengthy day yesterday with many events occurring as the patient was weaned off initially of the sedation. She had adequate mentation. She had adequate weaning parameters. She was given a spontaneous breathing trial and following that the patient was extubated at this was probably sometime in the early afternoon. Initially she did well on nasal cannula. Subsequently, the patient became tachycardic, tachypneic, diaphoretic and she went to respiratory distress. She was also becoming significantly anxious. At that point, the patient was placed on a BiPAP to support her breathing. The subsequent blood gases were adequate. While on the BiPAP, the patient's pH was at 7.44 with pCO2 of 44 and pO2 of 63. At that point, the patient was started on Precedex which helped her quite a bit and improved her tachycardia and tachypnea. Her mentation was fluctuating and she was not fully coherent that she was following some simple commands. I decided not to reintubate the patient at this point. I diurese her aggressively and I put her on Lasix 10 mg an hour drip and the patient made excellent urine output and she has been negative fluid balance of at least 5.8 L over the past 24 hours. Nevertheless, at around 2 or 3 AM in the morning, the patient became again tachypneic. She became restless and significa ntly agitated. She was extubated and the patient had a repeat blood gas that showed a pH of 7.6 with a pCO2 of 36 and pO2 of 114 and this was done while her being on a BiPAP. Based on her overall condition, we decided to intubate the patient patient is currently intubated and on propofol which is running at 25 mcg/kg/min. She is calm and comfortable. Precedex has been discontinued. She has been Assist-control mode of mechanical ventilation at a rate of 20, tidal volume of 350, FiO2 of 50% with a PEEP of 5. His most recent blood gas shows a pH of 7.52 with a pCO2 of 47 and pO2 of 130. Her chest x-ray is showing lower lobe consolidation worse on the right. There is improvement in the volume status and in general. The orotracheal tube is in good location. The patient's blood work shows a component of hyponatremia with a sodium level of 150. Potassium is being replaced at 2.5, bicarb is at 40 BUN of 67 and a creatinine of 1.29. WBC count is at 8 with a hemoglobin 10.6 and a platelet count of 250. Enteral feeding for nutritional support is to be restarted. The patient was a lso started on low-dose norepinephrine overnight and currently she is on again 0.02 mcg/kg/min. Note that the previous bronchoscopy and the bronchial lavage yielded no microbial growth. As such, all cultures have been negative and the patient was taken off vancomycin yesterday. She remains on Zosyn. She also completed her course of Zithromax. On 12/24/2023, the patient remains intubated and mechanically ventilated. She failed initial trial of extubation. She was reintubated and the patient was kept on mechanical ventilator for the past 24 hours. Noted the extubation and reintubation was done on 12/22/2023. For now, the patient is sedated and she is currently on propofol running at 30 mcg/kg/min. She is being given a sedation holiday. The repeat chest x-ray from today shows marked clearing of the right lower lobe consolidation. The patient is on assist-control mode of mechanical v entilation of 20, tidal volume 350, FiO2 is at 40% with a PEEP of 5. The blood gases are adequate with a pH of 7.42 with a pCO2 of 48 and pO2 of 134. Hemodynamically, she is stable. She is running and low-dose norepinephrine at 0.03 mcg/kg/min. She has adequate urine output. The overall fluid balance over the past 24 hours has been +1 L. Note that the patient was given IV fluids in the form of D5 water regarding hyponatremia. Her sodium level is improved and currently is down to 146. Her acute kidney injury is also improved and the BUN is currently at 51 with a creatinine of 1.09. Potassium has been replaced and currently is up to 4.6. Blood sugars are adequate and the patient is currently off the insulin drip. Intensive antibiotic coverage, the patient remains on IV Zosyn. Based on her previous bronchoscopy and lavage, all of the micro blood cultures were negative. I discontinued the vancomycin. Patient is also off Zithromax. He is in the process of receiving sedation holiday this morning. Patient was evaluated today on 12/25/2023, patient remains in the ICU, she was e xtubated yesterday, and was extubated before and she had to be reintubated, she is now in the ICU on 5 L nasal cannula, she has BiPAP at bedside 09/27/40%, used it only briefly last night postextubation. Patient is doing well, relatively asymptomatic, she is on 5 L nasal cannula and not in distress. Chest x-ray this morning is showing no evidence of airspace disease, minimal atelectasis at the left base, chest x-ray is significantly improved. Labs today showed normal CBC, hemoglobin is 9.8 WBC count is 8 basic metabolic profile is normal except for slightly elevated sodium of 145, patient is receiving D5W. Medications turner, patient remains on updrafts, remains on bronchodilators, she is also on Lovenox subcu, she is also on diuretics and on Zosyn. Patient was reevaluated today on 12/26/2023, remains in the ICU, patient remains on amiodarone drip at 0.5 mg/min, patient is in atrial fibrillation but rate seems to be better controlled today compared to yesterday. She tolerated extubation well over the last 2 days, patient is sitting in bed, not in any distress, she is on 2 L nasal cannula. Patient remains on Zosyn empirically for presumptive pneumonia. Chest x-ray today was not done, but chest x-ray from yesterday showed left lower lobe atelectasis possible minimal consolidation in the left lower lobe/retrocardiac area. Labs today including CBC and basic metabolic profile are relatively normal, potassium is a bit high at 5.3. Blood cultures and sputum cultures have been negative on this patient. Even the BAL fluid was also negative Objective - Vital Signs Vital signs: Vital Signs Temp 97.6 F 12/26/23 00:00 Pulse 62 12/26/23 12:00 Resp 15 12/26/23 12:00 BP 138/73 12/26/23 12:00 Pulse Ox 96 12/26/23 12:00 FiO2 35 12/24/23 21:00 Intake & Output 12/25/23 12/26/23 12/26/23 18:59 06:59 18:59 Intake Total 1373 843.3 285 Output Total 915 575 230 Balance 458 268.3 55 Weight 78.1 kg 85.4 kg Intake: IV 813 810 210 0.9 KVO 50 110 10 A- line .9 @3cc/hr 3 Dextrose 5% in Water 1, 560 600 200 000 ml @ 50 mls/hr IV . Q20H [facility] Rx#:[id number] Piperacillin-Tazobactam 3 200 100 .375 gm In Sodium Chloride 0.9% 100 ml @ 25 mls/hr IVPB Q8HR [facility] Rx# :[id number] Intake, IV Titration 100 33.3 Amount Amiodarone 360 mg In 33.3 Dextrose 5% in Water 200 ml @ 1 MG/MIN 33.333 mls/ hr IV .Q6H ONE Rx#: [id number] Potassium Chloride 10 meq 100 In Water For Injection 1 100ml.bag @ 100 mls/hr IVPB Q1H [facility] Rx#: [id number] Oral 460 75 Output: Urine 915 575 230 Other: Voiding Method Indwelling Catheter Indwelling Catheter Indwelling Catheter # Bowel Movements 1 ABP, PAP, CO, CI - Last Documented Arterial Blood Pressure 104/64 - Exam General: Reveals 73-year-old female in no distress on liters nasal cannula, not in distress. Head: Atraumatic, normocephalic. Skin: Skin is warm and dry and no rashes or lesions are noted. Eye: Pupils are equal, round and reactive to light, extra-ocular movements are intact; there is normal conjunctiva bilaterally. Ears, nose, mouth and throat: There are moist mucous membranes and no oral lesions. Neck: The neck is supple, there is no tenderness or JVD. Cardiovascular: Normal S1-S2, no S3 gallop, no murmur. Respiratory: Diminished breath sounds at the bases no crackles rhonchi or wheezes Gastrointestinal: Soft, non-distended, non-tender abdomen without masses or organomegaly noted. There is no rebound or guarding present. Bowel sounds are unremarkable. Back: There is no tenderness to palpation in the midline. There is no obvious deformity. Musculoskeletal: Normal ROM, no tenderness, There is no pedal edema. There is no calf tenderness or swelling. No cords were appreciated. Neurological: Alert and oriented x 3 no gross focal deficits. Psychiatric: Cooperative, appropriate mood & affect, normal judgment. - Labs CBC & Chem 7: 12/26/23 03:58 12/26/23 03:58 Labs: Abnormal Lab Results - Last 24 Hours (Table) 12/25/23 12/25/23 12/25/23 Range/Units 16:08 19:48 23:51 Hgb (11.4-16.0) gm/dL MCV (80.0-100.0) fL MCH (25.0-35.0) pg MCHC (31.0-37.0) g/dL RDW (11.5-15.5) % Plt Count (150-450) k/uL Neutrophils # (1.3-7.7) k/uL Lymphocytes # (1.0-4.8) k/uL Sodium (137-145) mmol/L Potassium (3.5-5.1) mmol/L Chloride (98-107) mmol/L BUN (7-17) mg/dL Creatinine (0.52-1.04) mg/dL Glucose (74-99) mg/dL POC Glucose (mg/dL) 260 H 251 H 165 H (70-110) mg/dL Calcium (8.4-10.2) mg/dL AST (14-36) U/L ALT (4-34) U/L Alkaline Phosphatase (38-126) U/L Total Protein (6.3-8.2) g/dL Albumin (3.5-5.0) g/dL 12/26/23 12/26/23 12/26/23 Range/Units 03:58 03:58 04:23 Hgb 10.7 L (11.4-16.0) gm/dL MCV 72.3 L (80.0-100.0) fL MCH 20.8 L (25.0-35.0) pg MCHC 28.8 L (31.0-37.0) g/dL RDW 19.6 H (11.5-15.5) % Plt Count 115 L (150-450) k/uL Neutrophils # 8.5 H (1.3-7.7) k/uL Lymphocytes # 0.6 L (1.0-4.8) k/uL Sodium 135 L (137-145) mmol/L Potassium 5.3 H (3.5-5.1) mmol/L Chloride 109 H (98-107) mmol/L BUN 26 H (7-17) mg/dL Creatinine 0.46 L (0.52-1.04) mg/dL Glucose 142 H (74-99) mg/dL POC Glucose (mg/dL) 149 H (70-110) mg/dL Calcium 8.1 L (8.4-10.2) mg/dL AST 346 H (14-36) U/L ALT 1082 H (4-34) U/L Alkaline Phosphatase 33 L (38-126) U/L Total Protein 5.4 L (6.3-8.2) g/dL Albumin 2.9 L (3.5-5.0) g/dL 12/26/23 12/26/23 Range/Units 07:55 11:41 Hgb (11.4-16.0) gm/dL MCV (80.0-100.0) fL MCH (25.0-35.0) pg MCHC (31.0-37.0) g/dL RDW (11.5-15.5) % Plt Count (150-450) k/uL Neutrophils # (1.3-7.7) k/uL Lymphocytes # (1.0-4.8) k/uL Sodium (137-145) mmol/L Potassium (3.5-5.1) mmol/L Chloride (98-107) mmol/L BUN (7-17) mg/dL Creatinine (0.52-1.04) mg/dL Glucose (74-99) mg/dL POC Glucose (mg/dL) 140 H 188 H (70-110) mg/dL Calcium (8.4-10.2) mg/dL AST (14-36) U/L ALT (4-34) U/L Alkaline Phosphatase (38-126) U/L Total Protein (6.3-8.2) g/dL Albumin (3.5-5.0) g/dL Microbiology - Last 24 Hours (Table) 12/23/23 10:11 Blood Culture - Preliminary Blood 12/23/23 08:26 Gram Stain - Final Sputum Sputum Culture - Final Assessment and Plan Assessment: Impression: Acute hypoxic respiratory failure secondary to multifocal pneumonia, required intubation mechanical ventilation, extubated on 12/24/2023 Acute hypernatremia, mostly secondary to free water deficit improving with D5W Acute metabolic alkalosis secondary to diuresis, improved. History of COPD, presently under control and stable History of coronary artery disease, status post bypass surgery. Chronic systolic heart failure with an ejection fraction of 30 to 35% along with moderate MR and mild to moderate pulm hypertension with a PA pressure of 32 History of diabetes mellitus, History of hyperlipidemia. History of hypertension. History of fibromyalgia. History of obstructive sleep apnea syndrome. History of polysubstance abuse. SVT, single episode, treated with adenosine and the patient was also given Cardizem drip. Currently in a sinus tachycardia. Left lower lobe atelectasis, doubt pneumonia. Recommendation: Continue present supportive care measures Continue oxygen and titrate accordingly Continue bronchodilators Discontinue Zosyn Continue steroids/transition to prednisone today. Continue Levemir insulin Incentive spirometry Ambulation Use BiPAP as needed Transfer out of the ICU today cardiac floor today considering her atrial fibril lation and requiring amiodarone drip. Will continue to follow Time with Patient: Less than 30
--- NOTE | 2023-12-26 17:05 | P.PN ---
Subjective Progress Note Date: 12/26/23 Shortness of breath The patient is a 73-year-old female patient with extensive cardiac history consistent of coronary artery disease with a prior revascularization with CABG and stenting with the last heart catheterization was performed in September 2023 and no need for revascularization advised at that point as well as cardiomyopathy with an ejection fraction between 30-35% as well as valvular heart disease with moderate mitral regurgitation. The patient presented to the hospital with shortness of breath associated with extensive cough and congestion. Initially she was admitted to the third floor but because she continues to have extensive cough associated with respiratory distress she was transferred to the intensive care unit and subsequently she was intubated and placed on mechanical ventilation. 12/19/2023 The patient was seen this morning. She is hemodynamically stable beside soft bl ood pressure. Currently she is not on vasopressors and she was weaned from vasopressors earlier today. Beside that she has been maintaining normal sinus mechanism. The possible diagnosis is pneumonia/sepsis and blood culture was sent. She doesn't seems in overt congestive heart failure overall. We'll follow-up with a chest x-ray from this morning. She was given one dose of Lasix last night. The last echo from September showed an EF between 30-35%. The examination is remarkable for regular rhythm with distant heart sounds and diminished breathing sounds bilaterally and no edema was noted. 12/20/2023 The patient was seen and evaluated this morning. She continues to be intubated on mechanical ventilation but hemodynamically stable with a soft blood pressure and mean pressure above 65 mmHg. She underwent bronchoscopy yesterday. The chest x-ray showed right lower lobe infiltrate/pneumonia. She is on antibiotic. She has been maintaining normal sinus mechanism with ventricular bigeminy but her electrolytes including potassium was on the low side and that has been replaced. From a cardiac arrest or standpoint of view, would continue the current medical regimen and continue following up with the patient. The examination is remarkable for regular rhythm with diminished breathing sounds bilaterally January 19, 2024 The patient was seen and evaluated this morning. Hemodynamically she is stable with marginal pressure. Upon extubation yesterday she went into a wide-complex rhythm seems to be consistent with ventricular tachycardia, sustained versus nonsustained. She was given adenosine. She was started on Cardizem IV. Currently she is an sinus mechanism. Because her pressure is marginal and going to stop the Cardizem and start the patient on metoprolol tartrate 12.5 mg p.o. twice daily. Her potassium was marginal and that was replaced. Will check her magnesium. Her ejection fraction is low at 35%. If she has that rhythm again she might benefit from amiodarone bolus and drip. Meanwhile she was given Lasix yesterday. The chest x-ray today appears to be better. December 22, 2023 The patient was seen and evaluated this morning. She continues to be intubated on mechanical ventilation but hemodynamically stable. Her potassium continues to be low. Currently she is on Lasix at 40 mg IV 3 times daily which ongoing to decrease to 40 mg IV twice daily and add Aldactone to the current medical regimen as a potassium sparing agent and she was on that medication for cardiomyopathy at home. Also she did have an episode of nonsustained ventricular tachycardia last night and with that being said I am going to increase the dose of metoprolol. Consider adding lisinopril also to the current medical regimen for the cardiomyopathy down the line. Beside that her potassium was replaced. Magnesium was checked. The chest x-ray was reviewed. The blood work was reviewed as well. The examination showed stable vital signs with regular rhythm and distant heart sounds and diminished breathing sounds bilaterally. She has mild bilateral lower extremities edema December 23, 2023 The patient was seen and evaluated this morning. She was reintubated again because of increased breathing work. She was hemodynamically unstable and requiring norepinephrine but currently she is off norepinephrine. She has been maintaining normal sinus mechanism. She is on Aldactone and also she is on beta-marcos which we will continue at this point. Consider adding lisinopril to the current medical regimen once her pressure is better. The examination is remarkable for diminished breathing sounds bilaterally and regular rate and rhythm and no edema was noted. December 24, 2023 The patient was seen and evaluated this morning. She was extubated earlier today. She has been maintaining normal sinus mechanism. She is hemodynamically stable. Currently she is on beta-marcos and she is on Aldactone. The pressure remains soft. I would consider adding ALEJANDRA inhibitors to the current medical regimen once her pressure is more stable. She is currently on BiPAP. Examinati on is remarkable for distant heart sounds with diminished breathing sounds bilaterally and mild lower extremities edema noted. 12/24 Patient was seen and examined at bedside this a.m. Patient was extubated on 12/24/2023. Patient has continued to be in sinus rhythm. Her chest x-ray does not show signs of pulmonary congestion. She is normotensive. Her renal function is stable at 0.6. 12/26/2023 Patient was extubated 12/24/2023. Since then she has been doing well. She was noticed to be in atrial fibrillation with RVR last night. For this she was started on IV amiodarone. This morning patient's liver function was declining with ALT going into thousands. Thereafter amiodarone was discontinued. Hb 10.7, platelets 115, sodium 135, potassium 5.3, creatinine 0.4, ALT 1082, AST 346 BP 140/66, heart rate 88, currently in sinus rhythm with frequent PACs and PVCs on telemetry Assessment Acute hypoxic respiratory failure Pneumonia Coronary artery disease Cardiomyopathy, ischemic EF 30-35% Cardiac arrhythmia Valvular heart disease Plan Continue the current medical regimen Continue the current dose of beta-marcos Continue Aldactone Consider adding lisinopril once the pressure permit Discontinue amiodarone due to liver injury and elevated transaminases. Do not reinitiate amiodarone for rhythm control for this patient. Okay to transfer out of ICU Objective - Vital Signs Vital signs: Vital Signs Temp 97.6 F 12/26/23 00:00 Pulse 88 12/26/23 16:00 Resp 17 12/26/23 16:00 BP 114/66 12/26/23 16:00 Pulse Ox 99 12/26/23 16:00 FiO2 35 12/24/23 21:00 Intake & Output 12/25/23 12/26/23 12/26/23 18:59 06:59 18:59 Intake Total 1373 843.3 435 Output Total 915 575 330 Balance 458 268.3 105 Weight 78.1 kg 85.4 kg Intake: IV 813 810 360 0.9 KVO 50 110 10 A- line .9 @3cc/hr 3 Dextrose 5% in Water 1, 560 600 350 000 ml @ 50 mls/hr IV . Q20H [facility] Rx#:[id number] Piperacillin-Tazobactam 3 200 100 .375 gm In Sodium Chloride 0.9% 100 ml @ 25 mls/hr IVPB Q8HR [facility] Rx# :[id number] Intake, IV Titration 100 33.3 Amount Amiodarone 360 mg In 33.3 Dextrose 5% in Water 200 ml @ 1 MG/MIN 33.333 mls/ hr IV .Q6H [facility] Rx#: [id number] Potassium Chloride 10 meq 100 In Water For Injection 1 100ml.bag @ 100 mls/hr IVPB Q1H [facility] Rx#: [id number] Oral 460 75 Output: Urine 915 575 330 Other: Voiding Method Indwelling Catheter Indwelling Catheter Indwelling Catheter # Bowel Movements 1 ABP, PAP, CO, CI - Last Documented Arterial Blood Pressure 104/64 - Labs CBC & Chem 7: 12/26/23 03:58 12/26/23 03:58 Labs: Abnormal Lab Results - Last 24 Hours (Table) 12/25/23 12/25/23 12/26/23 Range/Units 19:48 23:51 03:58 Hgb 10.7 L (11.4-16.0) gm/dL MCV 72.3 L (80.0-100.0) fL MCH 20.8 L (25.0-35.0) pg MCHC 28.8 L (31.0-37.0) g/dL RDW 19.6 H (11.5-15.5) % Plt Count 115 L (150-450) k/uL Neutrophils # 8.5 H (1.3-7.7) k/uL Lymphocytes # 0.6 L (1.0-4.8) k/uL Sodium (137-145) mmol/L Potassium (3.5-5.1) mmol/L Chloride (98-107) mmol/L BUN (7-17) mg/dL Creatinine (0.52-1.04) mg/dL Glucose (74-99) mg/dL POC Glucose (mg/dL) 251 H 165 H (70-110) mg/dL Calcium (8.4-10.2) mg/dL AST (14-36) U/L ALT (4-34) U/L Alkaline Phosphatase (38-126) U/L Total Protein (6.3-8.2) g/dL Albumin (3.5-5.0) g/dL 12/26/23 12/26/23 12/26/23 Range/Units 03:58 04:23 07:55 Hgb (11.4-16.0) gm/dL MCV (80.0-100.0) fL MCH (25.0-35.0) pg MCHC (31.0-37.0) g/dL RDW (11.5-15.5) % Plt Count (150-450) k/uL Neutrophils # (1.3-7.7) k/uL Lymphocytes # (1.0-4.8) k/uL Sodium 135 L (137-145) mmol/L Potassium 5.3 H (3.5-5.1) mmol/L Chloride 109 H (98-107) mmol/L BUN 26 H (7-17) mg/dL Creatinine 0.46 L (0.52-1.04) mg/dL Glucose 142 H (74-99) mg/dL POC Glucose (mg/dL) 149 H 140 H (70-110) mg/dL Calcium 8.1 L (8.4-10.2) mg/dL AST 346 H (14-36) U/L ALT 1082 H (4-34) U/L Alkaline Phosphatase 33 L (38-126) U/L Total Protein 5.4 L (6.3-8.2) g/dL Albumin 2.9 L (3.5-5.0) g/dL 12/26/23 Range/Units 11:41 Hgb (11.4-16.0) gm/dL MCV (80.0-100.0) fL MCH (25.0-35.0) pg MCHC (31.0-37.0) g/dL RDW (11.5-15.5) % Plt Count (150-450) k/uL Neutrophils # (1.3-7.7) k/uL Lymphocytes # (1.0-4.8) k/uL Sodium (137-145) mmol/L Potassium (3.5-5.1) mmol/L Chloride (98-107) mmol/L BUN (7-17) mg/dL Creatinine (0.52-1.04) mg/dL Glucose (74-99) mg/dL POC Glucose (mg/dL) 188 H (70-110) mg/dL Calcium (8.4-10.2) mg/dL AST (14-36) U/L ALT (4-34) U/L Alkaline Phosphatase (38-126) U/L Total Protein (6.3-8.2) g/dL Albumin (3.5-5.0) g/dL Microbiology - Last 24 Hours (Table) 12/23/23 10:11 Blood Culture - Preliminary Blood 12/23/23 08:26 Gram Stain - Final Sputum Sputum Culture - Final
[2023-12-26 17:23] LABS: Glucose,Whole Blood 230 mg/dL (70-110)
[2023-12-26] MEDS: predniSONE 20 MG TAB PO SCH (17:28)
[2023-12-26 20:17] LABS: Glucose,Whole Blood 222 mg/dL (70-110)
[2023-12-27 00:25] LABS: Glucose,Whole Blood 177 mg/dL (70-110)
[2023-12-27 05:59] LABS: Glucose,Whole Blood 72 mg/dL (70-110)
[2023-12-27 08:05] LABS: Glucose,Whole Blood 138 mg/dL (70-110)
[2023-12-27 09:44] LABS: AST 137 U/L (14-36); African American GFR (CKD) >90 (>60 ml/min/1.73 sqM); Albumin 2.8 g/dL (3.5-5.0); Alkaline Phosphatase 57 U/L (38-126); Anion Gap 4 mmol/L; Blood Urea Nitrogen 20 mg/dL (7-17); Calcium 8.3 mg/dL (8.4-10.2); Carbon Dioxide 25 mmol/L (22-30); Chloride 106 mmol/L (98-107); Glucose 94 mg/dL (74-99); Non-African American GFR(CKD) >90 (>60 ml/min/1.73 sqM); Sodium 135 mmol/L (137-145); Total Bilirubin 0.6 mg/dL (0.2-1.3); Total Protein 5.2 g/dL (6.3-8.2)
[2023-12-27 09:49] LABS: Anisocytosis Slight; Basophils % (A) 0 %; Eosinophils % (A) 0 %; HCT 36.9 % (34.0-46.0); HGB 10.8 gm/dL (11.4-16.0); Hypochromasia Marked; Lymphocytes % (A) 6 %; MCH 20.9 pg (25.0-35.0); MCHC 29.2 g/dL (31.0-37.0); MCV 71.7 fL (80.0-100.0); Mean Platelet Volume 9.5; Microcytosis Marked; Monocytes # (A) 0.6 k/uL (0-1.0); Monocytes % (A) 4 %; Neutrophils # (A) 14.1 k/uL (1.3-7.7); Neutrophils % (A) 89 %; Platelet Count 160 k/uL (150-450); RBC 5.14 m/uL (3.80-5.40); RDW 19.6 % (11.5-15.5); WBC 15.8 k/uL (3.8-10.6)
[2023-12-27 09:54] LABS: ALT 827 U/L (4-34)
[2023-12-27 11:31] LABS: Glucose,Whole Blood 105 mg/dL (70-110)
[2023-12-27] MEDS: POTASSIUM CHLORIDE ER 20 MEQ TAB.ER PO SCH (11:56)
[2023-12-27] MEDS: ASPIRIN 81 MG PO SCH (11:56)
[2023-12-27] MEDS: APIXABAN 5 MG TAB PO SCH (11:56)
--- NOTE | 2023-12-27 12:00 | P.PN ---
Subjective Progress Note Date: 12/27/23 Mari Moore, is a 73 year old female who presented to [facility] with a chief complaint of worsening shortness of breath. Patient reports she's had a nonproductive cough and generalized weakness and upper respiratory symptoms over the past few days. Patient has an extensive medical history including asthma, heart failure, COPD, coronary artery disease with previous history of CABG, diabetes mellitus, fibromyalgia, sleep apnea, ex- smoker and current marijuana user. Chest x-ray completed in ER showing no acute pulmonary infiltrate. Current vital signs showing temperature 97.6, heart rate 97, respiratory 18, blood pressure 98/49 with a pulse ox of 96% on room air patient testing negative for influenza RSV and COVID-19. UA negative. Troponins negative 2. BNP elevated at 2130. White blood cell within normal limits hemoglobin 8.9 at this time primary service is consulted. Will consult cardiology services in order 2-D echo. Iron studies ordered for anemia patient started on IV Solu-Medrol DuoNeb breathing treatments. At this time pulmonary and cardiology services consulted. Continue azithromycin for upper respiratory infection. Iron studies for low hemoglobin. On 12/18/2023 patient was seen and examined in the ICU her condition has worsened this morning, she was having severe continuous cough and shortness of breath, she had decrease in her O2 sat duration, she was transferred to intensive care unit, chest x-ray revealed significant worsening since x-ray done on 12/16/2023 with large right middle lobe and right lower lobe infiltrates, possibly related to aspiration. At this time patient is intubated, sedated started on mechanical ventilation, IV Zosyn was added to her medication regimen, pulmonary critical care following. On 12/19/2023 patient remains in the ICU on mechanical ventilation FiO2 40%. Patient remains on IV sedation. Levophed has been DC'd. Patient remains on IV steroids and IV antibiotics. Pulmonary and cardiology services following. ABGs this a.m. pH 7.36, pCO2 40, pO2 189, HCO3 23 and total CO2 24. On 12/20/2023 patient remains in the ICU on mechanical ventilation FiO2 30%. Liver enzymes trending down AST 222 ALT 390. ABGs this a.m. pH 7.40, pCO2 38, pO2 126 sodium bicarb 24. Patient remains on IV Zosyn and IV vancomycin. Patient [place] on IV steroids On 12/21/2023 patient was seen and examined in the ICU she is intubated sedated maintained on mechanical ventilation, vital exam of this morning reveals a tem perature of 99.4 heart rate 87 respiration 27 blood pressure 100/68 pulse ox 95% on FiO2 of 30% Arterial blood gas reveals pH 7.4 pCO2 39 CO2 94 liver enzymes remain elevated with ALT at 319 and AST at 222 patient is maintained on IV antibiotics Zosyn she also remains on pressure support. On 12/22/2023 patient was seen and examined in the ICU she is intubated sedated maintained on mechanical ventilation vital examination reveals a temperature of 99.4 pulse 92 respiration 20 blood pressure 106/69 pulse ox 97 percent on FiO2 of 30% she remains on assist control tidal volume 350 rate of 20 FiO2 30% and a PEEP of 5. Arterial blood gas reveals a pH of 7.44 pCO2 45 pO2 99 white blood count 5.3 hemoglobin 9.2 platelet count 213 BUN 49 creatinine 0.99 patient remains on pressure support with norepinephrine she remains on IV antibiotic Zosyn, pulmonary critical care, and cardiology are following. On 12/23/2023 patient was seen and examined in the ICU she is intubated sedated maintained on mechanical ventilation, vital exam reveals a temperature of 100.2, respiration 25 pulse 88 blood pressure 130/69 pulse ox 100% on FiO2 50% currently patient is back on assist control rate of 20 tidal volume 350 FiO2 50% with PEEP of 5 arterial blood gas reveals pH of 7.5 to pCO2 47 CO2 130 potassium is low at 2.5 and is being corrected. She is still having episodes of fever, she is maintained on IV Zosyn, repeat blood culture ordered, infectious disease consultation requested. On 12/24/2023 patient was seen and examined in the ICU she is intubated sedated maintained on mechanical ventilation, nursing is reporting that patient has not had a bowel movement for several days, otherwise patient seems to be stable. Vital exam reveals a temperature of 99.3 pulse 84 respiration 22 blood pressure 104/55 pulse ox is 100% on mechanical ventilation. At this time patient is maintained on assist control tidal volume 350 rate of 20 FiO2 40% with a PEEP of 5 arterial blood gas this morning reveals a pH of 7.43 pCO2 48 pO2 134 BUN is elevated at 51 creatinine 1.09 there is elevation in liver enzymes with AST at 139 and a LT at 560 On 12/25/2023 patient was seen and examined in the ICU she is alert and oriented 3 in no apparent distress she was extubated yesterday she is maintained on oxygen at 5 L via nasal cannula, she denies any complaints at this time there is no fever or chills no headache or dizziness no chest pain no shortness of breath no cough no nausea or vomiting no abdominal pain no diarrhea and no urinary symptoms vital examination reveals a temperature of 98 pulse 104 respiration 18 blood pressure 108/95 pulse ox 99% on 5 L nasal cannula, laboratory data reveals a white blood count of 8.0 hemoglobin 9.8 platelet count 125 BUN 39 creatinine 0.83 on 12/26/2023 patient remains in the intensive care unit alert and oriented 3. Patient currently on 2 L nasal cannula. Patient was started on amiodarone per cardiology. Current vital signs temp 97.6, heart rate 62, respiratory rate 19, blood pressure 107/65 pulse ox 99% on 2 L. On 12/27/2023 patient is alert and oriented 3. Liver enzymes slightly improving awaiting abdominal ultrasound. Current vital signs temp 98.5, heart rate 59, respiratory rate teens, blood pressure 124/77 with pulse ox 94% on room air. Anticipate possible discharge in the next 24-48 hours Objective - Vital Signs Vital signs: Vital Signs Temp 98.5 F 12/27/23 11:42 Pulse 59 L 12/27/23 11:42 Resp 18 12/27/23 11:42 BP 124/77 12/27/23 11:42 Pulse Ox 94 L 12/27/23 11:42 FiO2 35 12/24/23 21:00 Intake & Output 12/26/23 12/27/23 12/27/23 18:59 06:59 18:59 Intake Total 445 118 0 Output Total 955 500 Balance -510 -382 0 Intake: IV 370 0.9 KVO 10 Dextrose 5% in Water 1, 350 000 ml @ 50 mls/hr IV . Q20H [facility] Rx#:[id number] Invasive Line 8 10 Oral 75 118 0 Output: Urine 955 500 Other: Voiding Method Indwelling Catheter Indwelling Catheter Indwelling Catheter # Bowel Movements 1 ABP, PAP, CO, CI - Last Documented Arterial Blood Pressure 104/64 - Exam In general patient is intubated sedated maintained on mechanical ventilation Head normocephalic and atraumatic Neck supple no JVD no goiter Lungs exam reveals coarse crackles bilaterally no wheezing Heart regular rate and rhythm S1-S2, no rub or gallop Abdomen is soft nontender nondistended positive bowel sounds no hepatosplenomegaly Extremities no edema Neuro no gross focal deficit - Labs CBC & Chem 7: 12/27/23 08:00 12/27/23 08:00 Labs: Abnormal Lab Results - Last 24 Hours (Table) 12/26/23 12/26/23 12/27/23 Range/Units 17:22 20:15 00:24 WBC (3.8-10.6) k/uL Hgb (11.4-16.0) gm/dL MCV (80.0-100.0) fL MCH (25.0-35.0) pg MCHC (31.0-37.0) g/dL RDW (11.5-15.5) % Neutrophils # (1.3-7.7) k/uL Sodium (137-145) mmol/L Potassium (3.5-5.1) mmol/L BUN (7-17) mg/dL POC Glucose (mg/dL) 230 H 222 H 177 H (70-110) mg/dL Calcium (8.4-10.2) mg/dL AST (14-36) U/L ALT (4-34) U/L Total Protein (6.3-8.2) g/dL Albumin (3.5-5.0) g/dL 12/27/23 12/27/23 12/27/23 Range/Units 08:00 08:00 08:03 WBC 15.8 H (3.8-10.6) k/uL Hgb 10.8 L (11.4-16.0) gm/dL MCV 71.7 L (80.0-100.0) fL MCH 20.9 L (25.0-35.0) pg MCHC 29.2 L (31.0-37.0) g/dL RDW 19.6 H (11.5-15.5) % Neutrophils # 14.1 H (1.3-7.7) k/uL Sodium 135 L (137-145) mmol/L Potassium 3.0 L (3.5-5.1) mmol/L BUN 20 H (7-17) mg/dL POC Glucose (mg/dL) 138 H (70-110) mg/dL Calcium 8.3 L (8.4-10.2) mg/dL AST 137 H (14-36) U/L ALT 827 H (4-34) U/L Total Protein 5.2 L (6.3-8.2) g/dL Albumin 2.8 L (3.5-5.0) g/dL Microbiology - Last 24 Hours (Table) 12/23/23 10:11 Blood Culture - Preliminary Blood Assessment and Plan Assessment: 1. Acute exacerbation of COPD. 2. Acute on chronic exacerbation of systolic CHF 3. Anemia. Iron studies ordered 4. Cardiomyopathy with an EF of 30-35% 5. History of non-STEMI September 2023 status post cardiac cath showing 80% stenosis of the stent patent 6. History of coronary artery disease disease status post CABG 7. History of diabetes mellitus type II 8. History of essential hypertension 9. History of hyperlipidemia. 10. Acute hypoxic respiratory failure requiring intubation and mechanical ventilation on 12/18/2023 11. Right middle lobe and right lower lobe infiltrates, suggestive of pneumonia, possible aspiration. DVT prophylaxis Lovenox. GI prophylaxis Protonix Cardiology and pulmonary service is consulted. Patient extubated Maintained on IV Zosyn Maintained on IV Solu-Medrol iron studies ordered
--- NOTE | 2023-12-27 12:54 | P.PN ---
Subjective HISTORY OF PRESENT ILLNESS: The patient is a 73-year-old female patient with extensive cardiac history consistent of coronary artery disease with a prior revascularization with CABG and stenting with the last heart catheterization was performed in September 2023 and no need for revascularization advised at that point as well as cardiomyopathy with an ejection fraction between 30-35% as well as valvular heart disease with moderate mitral regurgitation. The patient presented to the hospital with shortness of breath associated with extensive cough and congestion. Initially she was admitted to the third floor but because she continues to have extensive cough associated with respiratory distress she was transferred to the intensive care unit and subsequently she was intubated and placed on mechanical ventilation. 12/19/2023 The patient was seen this morning. She is hemodynamically stable beside soft blood pressure. Currently she is not on vasopressors and she was weaned from vasopressors earlier today. Beside that she has been maintaining normal sinus mechanism. The possible diagnosis is pneumonia/sepsis and blood culture was s ent. She doesn't seems in overt congestive heart failure overall. We'll follow-up with a chest x-ray from this morning. She was given one dose of Lasix last night. The last echo from September showed an EF between 30-35%. The examination is remarkable for regular rhythm with distant heart sounds and diminished breathing sounds bilaterally and no edema was noted. 12/20/2023 The patient was seen and evaluated this morning. She continues to be intubated on mechanical ventilation but hemodynamically stable with a soft blood pressure and mean pressure above 65 mmHg. She underwent bronchoscopy yesterday. The chest x-ray showed right lower lobe infiltrate/pneumonia. She is on antibiotic. She has been maintaining normal sinus mechanism with ventricular bigeminy but her electrolytes including potassium was on the low side and that has been replaced. From a cardiac arrest or standpoint of view, would continue the current medical regimen and continue following up with the patient. The examination is remarkable for regular rhythm with diminished breathing sounds bilaterally January 19, 2024 The patient was seen and evaluated this morning. Hemodynamically she is stable with marginal pressure. Upon extubation yesterday she went into a wide-complex rhythm seems to be consistent with ventricular tachycardia, sustained versus nonsustained. She was given adenosine. She was started on Cardizem IV. Currently she is an sinus mechanism. Because her pressure is marginal and going to stop the Cardizem and start the patient on metoprolol tartrate 12.5 mg p.o. twice daily. Her potassium was marginal and that was replaced. Will check her magnesium. Her ejection fraction is low at 35%. If she has that rhythm again she might benefit from amiodarone bolus and drip. Meanwhile she was given Lasix yesterday. The chest x-ray today appears to be better. December 22, 2023 The patient was seen and evaluated this morning. She continues to be intubated on mechanical ventilation but hemodynamically stable. Her potassium continues to be low. Currently she is on Lasix at 40 mg IV 3 times daily which ongoing to decrease to 40 mg IV twice daily and add Aldactone to the current medical regimen as a potassium sparing agent and she was on that medication for cardiomyopathy at home. Also she did have an episode of nonsustained ventricular tachycardia last night and with that being said I am going to increase the dose of metoprolol. Consider adding lisinopril also to the current medical regimen for the cardiomyopathy down the line. Beside that her potassium was replaced. Magnesium was checked. The chest x-ray was reviewed. The blood work was reviewed as well. The examination showed stable vital signs with regular rhythm and distant heart sounds and diminished breathing sounds bilaterally. She has mild bilateral lower extremities edema December 23, 2023 The patient was seen and evaluated this morning. She was reintubated again because of increased breathing work. She was hemodynamically unstable and requiring norepinephrine but currently she is off norepinephrine. She has been maintaining normal sinus mechanism. She is on Aldactone and also she is on beta-marcos which we will continue at this point. Consider adding lisinopril to the current medical regimen once her pressure is better. The examination is remarkable for diminished breathing sounds bilaterally and regular rate and rhythm and no edema was noted. December 24, 2023 The patient was seen and evaluated this morning. She was extubated earlier today. She has been maintaining normal sinus mechanism. She is hemodynamically stable. Currently she is on beta-marcos and she is on Aldactone. The pressure remains soft. I would consider adding ALEJANDRA inhibitors to the current medical regimen once her pressure is more stable. She is currently on BiPAP. Examination is remarkable for distant heart sounds with diminished breathing sounds bilaterally and mild lower extremities edema noted. 12/24 Patient was seen and examined at bedside this a.m. Patient was extubated on 12/24/2023. Patient has continued to be in sinus rhythm. Her chest x-ray does not show signs of pulmonary congestion. She is normotensive. Her renal function is stable at 0.6. 12/26/2023 Patient was extubated 12/24/2023. Since then she has been doing well. She was noticed to be in atrial fibrillation with RVR last night. For this she was started on IV amiodarone. This morning patient's liver function was declining with ALT going into thousands. Thereafter amiodarone was discontinued. Hb 10.7, platelets 115, sodium 135, potassium 5.3, creatinine 0.4, ALT 1082, AST 346 BP 140/66, heart rate 88, currently in sinus rhythm with frequent PACs and PVCs on telemetry 12/27/2023 Patient examined this morning at the bedside. Patient currently denies chest pain or pressure. She denies shortness of breath. Telemetry reveals sinus mechanism with PACs. No further episodes of atrial fibrillation noted. LFTs trending downward. AST 137. ALT 828. PHYSICAL EXAM: VITAL SIGNS: Reviewed. GENERAL: Well-developed in no acute distress. NECK: Supple. No JVD or thyromegaly LUNGS: Respirations even and unlabored. Lungs essentially clear to auscultation bilaterally. HEART: Regular rate and rhythm. S1 and S2 heard. EXTREMITIES: Normal range of motion. No clubbing or cyanosis. Peripheral pulses intact. No lower extremity edema ASSESSMENT: Acute hypoxic respiratory failure Pneumonia Coronary artery disease Cardiomyopathy, ischemic EF 30-35% New onset atrial fibrillation, currently maintaining sinus mechanism Valvular heart disease Transaminitis PLAN: Continue current cardiac medications Add Eliquis 5 mg twice a day Add aspirin 81 mg daily Avoid amiodarone secondary to transaminitis Continue telemetry monitoring Further recommendations pending patient course Nurse practitioner note has been reviewed by physician. Signing provider agrees with the documented findings, assessment, and plan of care documented by [employer] as a scribe. Objective - Vital Signs Vital signs: Vital Signs Temp 98.5 F 12/27/23 11:42 Pulse 80 12/27/23 12:07 Resp 18 12/27/23 11:42 BP 124/77 12/27/23 11:42 Pulse Ox 94 L 12/27/23 11:42 FiO2 35 12/24/23 21:00 Intake & Output 03/05/24 03/06/24 03/06/24 18:59 06:59 18:59 Intake Total 445 118 0 Output Total 955 500 Balance -510 -382 0 Intake: IV 370 0.9 KVO 10 Dextrose 5% in Water 1, 350 000 ml @ 50 mls/hr IV . [facility] Rx#:[id number] Invasive Line 8 10 Oral 75 118 0 Output: Urine 955 500 Other: Voiding Method Indwelling Catheter Indwelling Catheter Indwelling Catheter # Bowel Movements 1 ABP, PAP, CO, CI - Last Documented Arterial Blood Pressure 104/64 - Labs CBC & Chem 7: 12/27/23 08:00 12/27/23 08:00 Labs: Abnormal Lab Results - Last 24 Hours (Table) 12/26/23 12/26/23 12/27/23 Range/Units 17:22 20:15 00:24 WBC (3.8-10.6) k/uL Hgb (11.4-16.0) gm/dL MCV (80.0-100.0) fL MCH (25.0-35.0) pg MCHC (31.0-37.0) g/dL RDW (11.5-15.5) % Neutrophils # (1.3-7.7) k/uL Sodium (137-145) mmol/L Potassium (3.5-5.1) mmol/L BUN (7-17) mg/dL POC Glucose (mg/dL) 230 H 222 H 177 H (70-110) mg/dL Calcium (8.4-10.2) mg/dL AST (14-36) U/L ALT (4-34) U/L Total Protein (6.3-8.2) g/dL Albumin (3.5-5.0) g/dL 12/27/23 12/27/23 12/27/23 Range/Units 08:00 08:00 08:03 WBC 15.8 H (3.8-10.6) k/uL Hgb 10.8 L (11.4-16.0) gm/dL MCV 71.7 L (80.0-100.0) fL MCH 20.9 L (25.0-35.0) pg MCHC 29.2 L (31.0-37.0) g/dL RDW 19.6 H (11.5-15.5) % Neutrophils # 14.1 H (1.3-7.7) k/uL Sodium 135 L (137-145) mmol/L Potassium 3.0 L (3.5-5.1) mmol/L BUN 20 H (7-17) mg/dL POC Glucose (mg/dL) 138 H (70-110) mg/dL Calcium 8.3 L (8.4-10.2) mg/dL AST 137 H (14-36) U/L ALT 827 H (4-34) U/L Total Protein 5.2 L (6.3-8.2) g/dL Albumin 2.8 L (3.5-5.0) g/dL Microbiology - Last 24 Hours (Table) 12/23/23 10:11 Blood Culture - Preliminary Blood
[2023-12-27 14:30] VITALS: BMI 34.4
--- NOTE | 2023-12-27 15:20 | P.PN ---
Subjective Progress Note Date: 12/27/23 Principal diagnosis: Acute hypoxic respiratory failure secondary to multifocal pneumonia On 12/18/2023, the patient is being seen in follow-up on the medical floor. The patient was found to be in significant degree of respiratory distress and the patient was using some accessory muscles of breathing. She was having frequent coughing episode and she was unable to catch her breath in between those coughing episodes. She was still responsive and communicating. At that point, I made recommendations to transfer this patient to the intensive care unit for further monitoring. Within 20 minutes, the patient became more diaphoretic, lethargic, quite obtunded and at that point, the patient had to be intubated and placed on the mechanical ventilator. I personally intubated the patient in the intensive care unit. I have her on a tidal volume of 350, rate of 24 with an FiO2 of 100% with a PEEP of 5. Postintubation chest x-ray showed extensive consolidation of the right lung and there is new airspace disease throughout the right lung along with some areas of consolidations and interstitial changes. Post NG tube insertion, the patient's stomach was decompressed and there was total amount of 500 cc of gastric material aspirated from the stomach. No reported aspiration. Obviously, the patient has multifocal pneumonia at this point in time more extensive in the right lung especially in the right middle and right lower lobe area. The white cell count at 7.1 with a hemoglobin 8.8, BUN is at 15 with a creatinine of 0.5 and sodium levels at 137. Potassium level is at 4.2. The patient was started on propofol for sedation. She was given also a dose of Nimbex during the intubation process 10 mg IV x 1. Blood gas are still pending. She may need a bronchoscopy and right lower lobe bronchoalveolar lavage. She remains on bronchodilators. She remains on steroids. Antibiotics will be modified and Zosyn will be added in combination with Zithromax. She has not required any pressors yet. She will be given a bolus of 1 L and following that she will be started on a maintenance of 100 cc an hour. Condition is obviously is critical at this point in time. Echocardiogram that was obtained on 10/19/2023 showed systolic heart failure with an underlying left ventricular ejection fraction of 30 to 35%. The patient also had mild RV dilatation, mild aortic regurgitation, mild to moderate mitral Regurgitation with a right ventricular systolic pressure of 32. He also has moderate degree of pulm hypertension. On today's evaluation of 12/19/2023, the patient is intubated on the mechanical ventilator. Overnight, the patient was kept intubated and the patient is sedated adequately with propofol which is running at 35 mcg/kg/min. As mentioned, the patient developed an extensive right lung pneumonia with respiratory failure requiring intubation mechanical ventilation. She currently has a #7.5 orotracheal tube. She is on assist-control mode of mechanical ventilation at a rate of 30, tidal volume of 350, FiO2 of 40% and a PEEP of 5. The peak airway pressure is around 25. The chest x-ray from today showing bilateral pleural effusion and significant consolidation of the right lung base and there is also some limited infiltration of the left lung base. I performed a bronchoscopy on this patient yesterday endobronchial lavage of the right lower lobe was obtained. The results are still pending for now. Meanwhile, the patient was covered with broad-spectrum antibiotic coverage and she is currently on a combination of Zosyn, Zithromax and vancomycin. The peak airway pressure is ranging between 21 and 23. The blood gas shows improvement in the pH is currently up to 7.36 with a pCO2 of 40 and pO2 of 189. Note that the patient was also given 2 doses of bicarb yesterday as the patient was quite acidotic. Rest of the blood work from today shows a WBC count of 9.9, hemoglobin of 9.1 and a platelet count of 288. Sodium is at 143,. Potassium level is at 3.8, BUN is at 25 with a creatinine of 0.9. LFTs are elevated with an AST of 525 and ALT of 448 and a bilirubin of 0.8. Her urine drug screen is positive for cannabis and the patient admits to smoke marijuana on a daily basis approximately 2 joints a day. She is on DuoNeb nebulized treatments [id number]. She is also on a combination of Perforomist and Pulmicort updrafts. She remains on IV Solu-Medrol. She is also on Lovenox 40 mg subcu for DVT prophylaxis. Feeding has not been started yet. Echocardiogram that was done on 10/19/2023 showed impaired LV function with an ejection fraction of 30 to 35%. We have not encountered any hypotension on this patient. She was quite tachycardic yesterday and she was placed briefly on norepinephrine yesterday for some li mited hypotension and this ultimately improved and her current mean arterial pressure is around 74. She is on insulin drip running at 3 units an hour. Blood sugars under better control for now. On 12/20/2023, the patient remains intubated on the mechanical ventilator. Note that the patient is also sedated with a combination of fentanyl and propofol. The propofol is running at 35 mcg/kg/min and the patient is also on fentanyl 0.5 mcg/kg/h. Adequately sedated and the patient is synchronous with mechanical ventilator. She is currently at a rate of 30, tidal volume of 350, FiO2 is down to 30% with a PEEP of 5. The follow-up chest x-ray showsNo significant consolidation. There is improved in the right lower lobe consolidation. There is also cardiomegaly and CHF with interstitial edema and small bilateral pleural effusion. ET tube remains in a good location. As for the blood gas, the patient has a pH of 7.4 with a pCO2 of 38 and pO2 of 126 and this was on FiO2 of 40%. No significant orotracheal secretions. Bronchoscopy endobronchial done but results are still pending for now and there is no significant microbial growth. The blood cultures been negative. On blood work, the patient's white cell count is 5.9 with a hemoglobin of 8.5 and a platelet count of 236. Sodium is 145, potassium is at 4, BUN is at 33 with a creatinine of 0.9. Viral screen has been negative. Legionella urine antigen has been negative. The patient is also receiving enteral feeding for nutritional support. The patient is currently on vital high-protein at the rate of 30 cc an hour and the patient is also on insulin drip at 5 units an hour. Overall fluid balance is +1.5 L over the past 24 hours. On 12/21/2023, the patient is being seen for a follow-up. The patient remains intubated and mechanically ventilated. She is calm and comfortable on a combination of propofol and fentanyl. Propofol is running at 35 mcg/kg/min and fentanyl is running at 0.5 mcg/kg/h. The patient remains intubated on mechanical ventilator. This morning, she is on assist-control of 20, tidal volume of 350, FiO2 of 30% with a PEEP of 5. She is calm and comfortable and synchronous with mechanical ventilator. Chest x-ray showing cardiomegaly and pulm vascular congestion at the bronchoscopy endobronchial lavage that was done earlier yielded no microbial growth thus far. Based on that, I am going to dis continue the vancomycin and keep the patient on a combination of Zosyn and Zithromax. Otherwise, the fluid balance is positive and the patient will be started on more aggressive diuresis. The patient remains on vital high-protein at the rate of 32 cc an hour. The chest x-ray from today is consistent with CHF Along with some lower lobe consolidation bilaterally and the possibility of pneumonia cannot be completely excluded. The white cell count is 4.5, hemoglobin is 8.5 and a platelet count is at 245. Sodium is at 145 with a potassium level of 3.8, BUN is 43 with a creatinine of 1.0. LFTs are essentially improving and the AST is down to 222 and the ALT is down to 3019. Cultures are negative. Antibiotics are mentioned and they will include a combination of Zosyn Zithromax and vancomycin will be discontinued. Noted the patient was given a sedation holiday yesterday and during the process the patient had a an episode of SVT. The patient was given adenosine and following that the patient was placed on Cardizem and currently she is off Cardizem and the cardiac rhythm is back into normal sinus rhythm. No other significant events overnight. No fever or chills. No hemodynamic instability. She is known to have cardiomyopathy with impaired LV function. The patient remains on insulin drip at 6 units an hour. Afebrile. Hemodynamically stable. No pressors. 12/22/2023, the patient is being seen in follow-up. Remains intubated on the mechanical ventilator. This morning, she remains on propofol at 30 mcg/kg/min and fentanyl is at 0.5 mcg/kg/h. She is on assist-control mode with rate of 20, tidal volume of 350, FiO2 is down to 30% with a PEEP of 5. Peak airway pressur es of 21. Blood gas showed a pH of 7.44 with a pCO2 of 45 and a pO2 of 99. The chest x-ray from today shows cardiomegaly and bilateral pleural effusions slightly worse on the right. There is no airspace disease or consolidations. The patient is hemodynamically stable. The patient is on no pressors. The white cell count of 5.3 with a hemoglobin of 9.2. Sodium is at 146 and a potassium level of 3.3, chloride is 111, bicarb is 31 with a BUN of 49 and a creatinine of 0.99. Bronchoscopy has not yielded any microbial growth. Vancomycin was discontinued yesterday the patient remains on a combination of Zosyn and and Zithromax. The patient is also being diuresed with IV Lasix 40 mg IV every 12 hours. Fluid balance is -3.9 L over the past 24 hours and the patient's volume status being further optimized. The patient is also on enteral feeding for nutritional support and she is on vital high-protein at the rate of 32 cc an hour. Insulin drip is at 6 units an hour. The patient has adequate blood sugar control. The patient is afebrile. No other significant events overnight. On 12/23/2023, the patient is being seen for a follow-up. The patient had a long and a lengthy day yesterday with many events occurring as the patient was weaned off initially of the sedation. She had adequate mentation. She had adequate weaning parameters. She was given a spontaneous breathing trial and following that the patient was extubated at this was probably sometime in the early afternoon. Initially she did well on nasal cannula. Subsequently, the patient became tachycardic, tachypneic, diaphoretic and she went to respiratory distress. She was also becoming significantly anxious. At that point, the patient was placed on a BiPAP to support her breathing. The subsequent blood gases were adequate. While on the BiPAP, the patient's pH was at 7.44 with pCO2 of 44 and pO2 of 63. At that point, the patient was started on Precedex which helped her quite a bit and improved her tachycardia and tachypnea. Her mentation was fluctuating and she was not fully coherent that she was following some simple commands. I decided not to reintubate the patient at this point. I diurese her aggressively and I put her on Lasix 10 mg an hour drip and the patient made excellent urine output and she has been negative fluid balance of at least 5.8 L over the past 24 hours. Nevertheless, at around 2 or 3 AM in the morning, the patient became again tachypneic. She became restless and significa ntly agitated. She was extubated and the patient had a repeat blood gas that showed a pH of 7.6 with a pCO2 of 36 and pO2 of 114 and this was done while her being on a BiPAP. Based on her overall condition, we decided to intubate the patient patient is currently intubated and on propofol which is running at 25 mcg/kg/min. She is calm and comfortable. Precedex has been discontinued. She has been Assist-control mode of mechanical ventilation at a rate of 20, tidal volume of 350, FiO2 of 50% with a PEEP of 5. His most recent blood gas shows a pH of 7.52 with a pCO2 of 47 and pO2 of 130. Her chest x-ray is showing lower lobe consolidation worse on the right. There is improvement in the volume status and in general. The orotracheal tube is in good location. The patient's blood work shows a component of hyponatremia with a sodium level of 150. Potassium is being replaced at 2.5, bicarb is at 40 BUN of 67 and a creatinine of 1.29. WBC count is at 8 with a hemoglobin 10.6 and a platelet count of 250. Enteral feeding for nutritional support is to be restarted. The patient was a lso started on low-dose norepinephrine overnight and currently she is on again 0.02 mcg/kg/min. Note that the previous bronchoscopy and the bronchial lavage yielded no microbial growth. As such, all cultures have been negative and the patient was taken off vancomycin yesterday. She remains on Zosyn. She also completed her course of Zithromax. On 12/24/2023, the patient remains intubated and mechanically ventilated. She failed initial trial of extubation. She was reintubated and the patient was kept on mechanical ventilator for the past 24 hours. Noted the extubation and reintubation was done on 12/22/2023. For now, the patient is sedated and she is currently on propofol running at 30 mcg/kg/min. She is being given a sedation holiday. The repeat chest x-ray from today shows marked clearing of the right lower lobe consolidation. The patient is on assist-control mode of mechanical v entilation of 20, tidal volume 350, FiO2 is at 40% with a PEEP of 5. The blood gases are adequate with a pH of 7.42 with a pCO2 of 48 and pO2 of 134. Hemodynamically, she is stable. She is running and low-dose norepinephrine at 0.03 mcg/kg/min. She has adequate urine output. The overall fluid balance over the past 24 hours has been +1 L. Note that the patient was given IV fluids in the form of D5 water regarding hyponatremia. Her sodium level is improved and currently is down to 146. Her acute kidney injury is also improved and the BUN is currently at 51 with a creatinine of 1.09. Potassium has been replaced and currently is up to 4.6. Blood sugars are adequate and the patient is currently off the insulin drip. Intensive antibiotic coverage, the patient remains on IV Zosyn. Based on her previous bronchoscopy and lavage, all of the micro blood cultures were negative. I discontinued the vancomycin. Patient is also off Zithromax. He is in the process of receiving sedation holiday this morning. Patient was evaluated today on 12/25/2023, patient remains in the ICU, she was e xtubated yesterday, and was extubated before and she had to be reintubated, she is now in the ICU on 5 L nasal cannula, she has BiPAP at bedside 09/27/40%, used it only briefly last night postextubation. Patient is doing well, relatively asymptomatic, she is on 5 L nasal cannula and not in distress. Chest x-ray this morning is showing no evidence of airspace disease, minimal atelectasis at the left base, chest x-ray is significantly improved. Labs today showed normal CBC, hemoglobin is 9.8 WBC count is 8 basic metabolic profile is normal except for slightly elevated sodium of 145, patient is receiving D5W. Medications turner, patient remains on updrafts, remains on bronchodilators, she is also on Lovenox subcu, she is also on diuretics and on Zosyn. Patient was reevaluated today on 12/26/2023, remains in the ICU, patient remains on amiodarone drip at 0.5 mg/min, patient is in atrial fibrillation but rate seems to be better controlled today compared to yesterday. She tolerated extubation well over the last 2 days, patient is sitting in bed, not in any distress, she is on 2 L nasal cannula. Patient remains on Zosyn empirically for presumptive pneumonia. Chest x-ray today was not done, but chest x-ray from yesterday showed left lower lobe atelectasis possible minimal consolidation in the left lower lobe/retrocardiac area. Labs today including CBC and basic metabolic profile are relatively normal, potassium is a bit high at 5.3. Blood cultures and sputum cultures have been negative on this patient. Even the BAL fluid was also negative patient was reevaluated today on 12/27/2023, patient was seen on the medical floor, she is out of the ICU now, doing quite well, she is on room air, not in any form of distress.Labs including CBC were reviewed WBC is 15.8 hemoglobin is 10.8 basic metabolic profile is normal potassium is 3 renal profile is normal. Objective - Vital Signs Vital signs: Vital Signs Temp 98.5 F 12/27/23 11:42 Pulse 80 12/27/23 12:07 Resp 18 12/27/23 12:54 BP 124/77 12/27/23 11:42 Pulse Ox 94 L 12/27/23 11:42 FiO2 35 12/24/23 21:00 Intake & Output 12/26/23 12/27/23 12/27/23 18:59 06:59 18:59 Intake Total 445 118 0 Output Total 955 500 500 Balance -510 -382 -500 Weight 85.4 kg Intake: IV 370 0.9 KVO 10 Dextrose 5% in Water 1, 350 000 ml @ 50 mls/hr IV . Q20H [facility] Rx#:[id number] Invasive Line 8 10 Oral 75 118 0 Output: Urine 955 500 500 Other: Voiding Method Indwelling Catheter Indwelling Catheter Indwelling Catheter # Bowel Movements 1 ABP, PAP, CO, CI - Last Documented Arterial Blood Pressure 104/64 - Exam General: Reveals 73-year-old female in no distress on room air. Head: Atraumatic, normocephalic. Skin: Skin is warm and dry and no rashes or lesions are noted. Eye: Pupils are equal, round and reactive to light, extra-ocular movements are intact; there is normal conjunctiva bilaterally. Ears, nose, mouth and throat: There are moist mucous membranes and no oral lesions. Neck: The neck is supple, there is no tenderness or JVD. Cardiovascular: Normal S1-S2, no S3 gallop, no murmur. Respiratory: Good breath sound bilaterally no rhonchi no wheezes slightly diminished at the bases Gastrointestinal: Soft, non-distended, non-tender abdomen without masses or organomegaly noted. There is no rebound or guarding present. Bowel sounds are unremarkable. Back: There is no tenderness to palpation in the midline. There is no obvious deformity. Musculoskeletal: Normal ROM, no tenderness, There is no pedal edema. Neurological: Alert and oriented x 3 no gross focal deficits. Psychiatric: Cooperative, appropriate mood & affect, normal judgment. - Labs CBC & Chem 7: 12/27/23 08:00 12/27/23 08:00 Labs: Abnormal Lab Results - Last 24 Hours (Table) 12/26/23 12/26/23 12/27/23 Range/Units 17:22 20:15 00:24 WBC (3.8-10.6) k/uL Hgb (11.4-16.0) gm/dL MCV (80.0-100.0) fL MCH (25.0-35.0) pg MCHC (31.0-37.0) g/dL RDW (11.5-15.5) % Neutrophils # (1.3-7.7) k/uL Sodium (137-145) mmol/L Potassium (3.5-5.1) mmol/L BUN (7-17) mg/dL POC Glucose (mg/dL) 230 H 222 H 177 H (70-110) mg/dL Calcium (8.4-10.2) mg/dL AST (14-36) U/L ALT (4-34) U/L Total Protein (6.3-8.2) g/dL Albumin (3.5-5.0) g/dL 12/27/23 12/27/23 12/27/23 Range/Units 08:00 08:00 08:03 WBC 15.8 H (3.8-10.6) k/uL Hgb 10.8 L (11.4-16.0) gm/dL MCV 71.7 L (80.0-100.0) fL MCH 20.9 L (25.0-35.0) pg MCHC 29.2 L (31.0-37.0) g/dL RDW 19.6 H (11.5-15.5) % Neutrophils # 14.1 H (1.3-7.7) k/uL Sodium 135 L (137-145) mmol/L Potassium 3.0 L (3.5-5.1) mmol/L BUN 20 H (7-17) mg/dL POC Glucose (mg/dL) 138 H (70-110) mg/dL Calcium 8.3 L (8.4-10.2) mg/dL AST 137 H (14-36) U/L ALT 827 H (4-34) U/L Total Protein 5.2 L (6.3-8.2) g/dL Albumin 2.8 L (3.5-5.0) g/dL Microbiology - Last 24 Hours (Table) 12/23/23 10:11 Blood Culture - Preliminary Blood Assessment and Plan Assessment: Impression: Acute hypoxic respiratory failure secondary to multifocal pneumonia, required intubation mechanical ventilation, extubated on 12/24/2023, tolerated extubation so far Acute hypernatremia, mostly secondary to free water deficit improving with D5W Acute metabolic alkalosis secondary to diuresis, improved. History of COPD, presently under control and stable History of coronary artery disease, status post bypass surgery. Chronic systolic heart failure with an ejection fraction of 30 to 35% along with moderate MR and mild to moderate pulm hypertension with a PA pressure of 32 History of diabetes mellitus, History of hyperlipidemia. History of hypertension. History of fibromyalgia. History of obstructive sleep apnea syndrome. History of polysubstance abuse. SVT, single episode, treated with adenosine and the patient was also given Cardizem drip. Currently in a sinus tachycardia. Left lower lobe atelectasis, doubt pneumonia. Recommendation: Continue present supportive care measures Continue oxygen and titrate accordingly Continue bronchodilators No need for antibiotics at this point. Patient finished full course of Zosyn Oral prednisone burst and taper Continue Levemir insulin Incentive spirometry Ambulation Use BiPAP as needed Consider rehab placement Time with Patient: Less than 30
[2023-12-27 16:29] LABS: Glucose,Whole Blood 162 mg/dL (70-110)
--- NOTE | 2023-12-27 19:31 | US ---
EXAMINATION TYPE: US abdomen complete DATE OF EXAM: 12/27/2023 COMPARISON: 09/09/22, CT: 07/22/23 CLINICAL INDICATION: Female, 73 years old with history of elevated liver enzymes; elevated liver enzy mes, cholecystectomy TECHNIQUE: Multiple sonographic images of the abdomen are obtained. 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 Common bi le duct is unremarkable. The spleen is unremarkable. Kidneys are symmetric and free of hydronephr osis. No solid renal lesions are seen. IMPRESSION: 1. Simple cysts of the kidneys. 2. Fatty hepatic infiltration. 3. Dilated pancreatic duct
[2023-12-27 19:57] LABS: Glucose,Whole Blood 217 mg/dL (70-110)
[2023-12-28 00:25] LABS: Glucose,Whole Blood 148 mg/dL (70-110)
[2023-12-28] MEDS: LORazepam 2 MG/ML INJ IV PRN (01:31)
[2023-12-28 05:56] LABS: Glucose,Whole Blood 69 mg/dL (70-110)
[2023-12-28 06:10] LABS: Glucose,Whole Blood 66 mg/dL (70-110)
[2023-12-28] MEDS: DEXTROSE 50% SYRINGE 50 ML IVP PRN (06:15)
[2023-12-28 06:26] LABS: Glucose,Whole Blood 77 mg/dL (70-110)
[2023-12-28 09:46] LABS: Anisocytosis Moderate; Basophils % (A) 0 %; Eosinophils # (A) 0.1 k/uL (0-0.7); Eosinophils % (A) 1 %; HCT 37.4 % (34.0-46.0); HGB 10.7 gm/dL (11.4-16.0); Hypochromasia Marked; Lymphocytes # (A) 2.4 k/uL (1.0-4.8); Lymphocytes % (A) 16 %; MCH 20.5 pg (25.0-35.0); MCHC 28.7 g/dL (31.0-37.0); MCV 71.3 fL (80.0-100.0); Mean Platelet Volume 11.2; Microcytosis Marked; Monocytes # (A) 0.6 k/uL (0-1.0); Monocytes % (A) 4 %; Neutrophils # (A) 11.9 k/uL (1.3-7.7); Neutrophils % (A) 79 %; Platelet Count 168 k/uL (150-450); RBC 5.24 m/uL (3.80-5.40); WBC 15.2 k/uL (3.8-10.6)
[2023-12-28 10:19] LABS: ALT 584 U/L (4-34); AST 84 U/L (14-36); African American GFR (CKD) >90 (>60 ml/min/1.73 sqM); Alkaline Phosphatase 64 U/L (38-126); Anion Gap 1 mmol/L; Blood Urea Nitrogen 14 mg/dL (7-17); Calcium 8.2 mg/dL (8.4-10.2); Carbon Dioxide 27 mmol/L (22-30); Chloride 111 mmol/L (98-107); Glucose 102 mg/dL (74-99); Non-African American GFR(CKD) >90 (>60 ml/min/1.73 sqM); Potassium 3.1 mmol/L (3.5-5.1); Sodium 139 mmol/L (137-145); Total Bilirubin 0.8 mg/dL (0.2-1.3); Total Protein 5.4 g/dL (6.3-8.2)
[2023-12-28 11:59] LABS: Glucose,Whole Blood 104 mg/dL (70-110)
[2023-12-28] MEDS: FUROSEMIDE 20 MG TAB PO SCH (12:03)
[2023-12-28] MEDS: lisinopriL 5 MG TAB PO SCH (12:03)
[2023-12-28] MEDS: POTASSIUM CHLORIDE ER 20 MEQ TAB.ER PO SCH (12:03)
--- NOTE | 2023-12-28 12:14 | P.PN ---
Subjective HISTORY OF PRESENT ILLNESS: The patient is a 73-year-old female patient with extensive cardiac history consistent of coronary artery disease with a prior revascularization with CABG and stenting with the last heart catheterization was performed in September 2023 and no need for revascularization advised at that point as well as cardiomyopathy with an ejection fraction between 30-35% as well as valvular heart disease with moderate mitral regurgitation. The patient presented to the hospital with shortness of breath associated with extensive cough and congestion. Initially she was admitted to the third floor but because she continues to have extensive cough associated with respiratory distress she was transferred to the intensive care unit and subsequently she was intubated and placed on mechanical ventilation. 12/19/2023 The patient was seen this morning. She is hemodynamically stable beside soft blood pressure. Currently she is not on vasopressors and she was weaned from vasopressors earlier today. Beside that she has been maintaining normal sinus mechanism. The possible diagnosis is pneumonia/sepsis and blood culture was s ent. She doesn't seems in overt congestive heart failure overall. We'll follow-up with a chest x-ray from this morning. She was given one dose of Lasix last night. The last echo from September showed an EF between 30-35%. The examination is remarkable for regular rhythm with distant heart sounds and diminished breathing sounds bilaterally and no edema was noted. 12/20/2023 The patient was seen and evaluated this morning. She continues to be intubated on mechanical ventilation but hemodynamically stable with a soft blood pressure and mean pressure above 65 mmHg. She underwent bronchoscopy yesterday. The chest x-ray showed right lower lobe infiltrate/pneumonia. She is on antibiotic. She has been maintaining normal sinus mechanism with ventricular bigeminy but her electrolytes including potassium was on the low side and that has been replaced. From a cardiac arrest or standpoint of view, would continue the current medical regimen and continue following up with the patient. The examination is remarkable for regular rhythm with diminished breathing sounds bilaterally January 19, 2024 The patient was seen and evaluated this morning. Hemodynamically she is stable with marginal pressure. Upon extubation yesterday she went into a wide-complex rhythm seems to be consistent with ventricular tachycardia, sustained versus nonsustained. She was given adenosine. She was started on Cardizem IV. Currently she is an sinus mechanism. Because her pressure is marginal and going to stop the Cardizem and start the patient on metoprolol tartrate 12.5 mg p.o. twice daily. Her potassium was marginal and that was replaced. Will check her magnesium. Her ejection fraction is low at 35%. If she has that rhythm again she might benefit from amiodarone bolus and drip. Meanwhile she was given Lasix yesterday. The chest x-ray today appears to be better. December 22, 2023 The patient was seen and evaluated this morning. She continues to be intubated on mechanical ventilation but hemodynamically stable. Her potassium continues to be low. Currently she is on Lasix at 40 mg IV 3 times daily which ongoing to decrease to 40 mg IV twice daily and add Aldactone to the current medical regimen as a potassium sparing agent and she was on that medication for cardiomyopathy at home. Also she did have an episode of nonsustained ventricular tachycardia last night and with that being said I am going to increase the dose of metoprolol. Consider adding lisinopril also to the current medical regimen for the cardiomyopathy down the line. Beside that her potassium was replaced. Magnesium was checked. The chest x-ray was reviewed. The blood work was reviewed as well. The examination showed stable vital signs with regular rhythm and distant heart sounds and diminished breathing sounds bilaterally. She has mild bilateral lower extremities edema December 23, 2023 The patient was seen and evaluated this morning. She was reintubated again because of increased breathing work. She was hemodynamically unstable and requiring norepinephrine but currently she is off norepinephrine. She has been maintaining normal sinus mechanism. She is on Aldactone and also she is on beta-marcos which we will continue at this point. Consider adding lisinopril to the current medical regimen once her pressure is better. The examination is remarkable for diminished breathing sounds bilaterally and regular rate and rhythm and no edema was noted. December 24, 2023 The patient was seen and evaluated this morning. She was extubated earlier today. She has been maintaining normal sinus mechanism. She is hemodynamically stable. Currently she is on beta-marcos and she is on Aldactone. The pressure remains soft. I would consider adding ALEJANDRA inhibitors to the current medical regimen once her pressure is more stable. She is currently on BiPAP. Examination is remarkable for distant heart sounds with diminished breathing sounds bilaterally and mild lower extremities edema noted. 12/24 Patient was seen and examined at bedside this a.m. Patient was extubated on 12/24/2023. Patient has continued to be in sinus rhythm. Her chest x-ray does not show signs of pulmonary congestion. She is normotensive. Her renal function is stable at 0.6. 12/26/2023 Patient was extubated 12/24/2023. Since then she has been doing well. She was noticed to be in atrial fibrillation with RVR last night. For this she was started on IV amiodarone. This morning patient's liver function was declining with ALT going into thousands. Thereafter amiodarone was discontinued. Hb 10.7, platelets 115, sodium 135, potassium 5.3, creatinine 0.4, ALT 1082, AST 346 BP 140/66, heart rate 88, currently in sinus rhythm with frequent PACs and PVCs on telemetry 12/27/2023 Patient examined this morning at the bedside. Patient currently denies chest pain or pressure. She denies shortness of breath. Telemetry reveals sinus mechanism with PACs. No further episodes of atrial fibrillation noted. LFTs trending downward. AST 137. ALT 828. 12/28/2023 Patient examined this morning at the bedside. Patient is confused today which is a change from yesterday. Patient denying chest pain or pressure. She denies shortness of breath. Telemetry reveals sinus mechanism with a heart rate in the 70s. PHYSICAL EXAM: VITAL SIGNS: Reviewed. GENERAL: Well-developed in no acute distress. NECK: Supple. No JVD or thyromegaly LUNGS: Respirations even and unlabored. Lungs essentially clear to auscultation bilaterally. HEART: Regular rate and rhythm. S1 and S2 heard. EXTREMITIES: Normal range of motion. No clubbing or cyanosis. Peripheral pulses intact. No lower extremity edema ASSESSMENT: Acute hypoxic respiratory failure Pneumonia Coronary artery disease Cardiomyopathy, ischemic EF 30-35% New onset atrial fibrillation, currently maintaining sinus mechanism Valvular heart disease Transaminitis PLAN: Continue current cardiac medications Add oral Lasix 20 mg daily Add lisinopril 5 mg daily Avoid amiodarone secondary to transaminitis Continue telemetry monitoring Patient is stable for discharge from a cardiac standpoint Nurse practitioner note has been reviewed by physician. Signing provider agrees with the documented findings, assessment, and plan of care documented by [employer] as a scribe. Objective - Vital Signs Vital signs: Vital Signs Temp 97.9 F 12/28/23 11:41 Pulse 68 12/28/23 11:51 Resp 20 12/28/23 11:41 BP 122/76 12/28/23 11:41 Pulse Ox 99 12/28/23 11:41 FiO2 35 12/24/23 21:00 Intake & Output 12/27/23 12/28/23 12/28/23 18:59 06:59 18:59 Intake Total 118 0 Output Total 650 900 Balance -532 -900 0 Weight 85.4 kg Intake: Oral 118 0 Output: Urine 650 900 Other: Voiding Method Indwelling Catheter Indwelling Catheter Indwelling Catheter # Bowel Movements 1 ABP, PAP, CO, CI - Last Documented Arterial Blood Pressure 104/64 - Labs CBC & Chem 7: 12/28/23 08:17 12/28/23 08:17 Labs: Abnormal Lab Results - Last 24 Hours (Table) 12/27/23 12/27/23 12/28/23 Range/Units 16:27 19:56 00:23 WBC (3.8-10.6) k/uL Hgb (11.4-16.0) gm/dL MCV (80.0-100.0) fL MCH (25.0-35.0) pg MCHC (31.0-37.0) g/dL RDW (11.5-15.5) % Neutrophils # (1.3-7.7) k/uL Potassium (3.5-5.1) mmol/L Chloride (98-107) mmol/L Glucose (74-99) mg/dL POC Glucose (mg/dL) 162 H 217 H 148 H (70-110) mg/dL Calcium (8.4-10.2) mg/dL AST (14-36) U/L ALT (4-34) U/L Total Protein (6.3-8.2) g/dL Albumin (3.5-5.0) g/dL 12/28/23 12/28/23 12/28/23 Range/Units 05:54 06:09 08:17 WBC 15.2 H (3.8-10.6) k/uL Hgb 10.7 L (11.4-16.0) gm/dL MCV 71.3 L (80.0-100.0) fL MCH 20.5 L (25.0-35.0) pg MCHC 28.7 L (31.0-37.0) g/dL RDW 20.0 H (11.5-15.5) % Neutrophils # 11.9 H (1.3-7.7) k/uL Potassium (3.5-5.1) mmol/L Chloride (98-107) mmol/L Glucose (74-99) mg/dL POC Glucose (mg/dL) 69 L 66 L (70-110) mg/dL Calcium (8.4-10.2) mg/dL AST (14-36) U/L ALT (4-34) U/L Total Protein (6.3-8.2) g/dL Albumin (3.5-5.0) g/dL 12/28/23 Range/Units 08:17 WBC (3.8-10.6) k/uL Hgb (11.4-16.0) gm/dL MCV (80.0-100.0) fL MCH (25.0-35.0) pg MCHC (31.0-37.0) g/dL RDW (11.5-15.5) % Neutrophils # (1.3-7.7) k/uL Potassium 3.1 L (3.5-5.1) mmol/L Chloride 111 H (98-107) mmol/L Glucose 102 H (74-99) mg/dL POC Glucose (mg/dL) (70-110) mg/dL Calcium 8.2 L (8.4-10.2) mg/dL AST 84 H (14-36) U/L ALT 584 H (4-34) U/L Total Protein 5.4 L (6.3-8.2) g/dL Albumin 3.0 L (3.5-5.0) g/dL
--- NOTE | 2023-12-28 13:53 | P.PN ---
Subjective Progress Note Date: 12/24/23 Principal diagnosis: Reason for follow-up is fever Patient is a 73-year-old female with a past medical history significant for diabetes mellitus hypertension hyperlipidemia fibromyalgia COPD coronary disease patient presenting to the hospital on 12/16/2023 for evaluation of chest congestion and cough and increasing shortness of breath, patient got reintubated and did spike a fever prompting this consultation. On today's visit that is 12/24/2023 the patient did spike another fever of 101.2 degrees for hide around 4 AM and did have a low-grade fever of 100 F at noon patient remains to be intubated on the vent FiO2 at 40% no significant purulent secretions through the ET or any other changes reported by the nursing staff patient not requiring any pressor support Patient white count is 10.8, creatinine is 1.09 Objective - Vital Signs Vital signs: Vital Signs Temp 97.6 F 12/26/23 00:00 Pulse 62 12/26/23 12:00 Resp 15 12/26/23 12:00 BP 138/73 12/26/23 12:00 Pulse Ox 96 12/26/23 12:00 FiO2 35 12/24/23 21:00 Intake & Output 12/25/23 12/26/23 12/26/23 18:59 06:59 18:59 Intake Total 1373 843.3 285 Output Total 915 575 230 Balance 458 268.3 55 Weight 78.1 kg 85.4 kg Intake: IV 813 810 210 0.9 KVO 50 110 10 A- line .9 @3cc/hr 3 Dextrose 5% in Water 1, 560 600 200 000 ml @ 50 mls/hr IV . Q20H [facility] Rx#:[id number] Piperacillin-Tazobactam 3 200 100 .375 gm In Sodium Chloride 0.9% 100 ml @ 25 mls/hr IVPB Q8HR [facility] Rx# :[id number] Intake, IV Titration 100 33.3 Amount Amiodarone 360 mg In 33.3 Dextrose 5% in Water 200 ml @ 1 MG/MIN 33.333 mls/ hr IV .Q6H [facility] Rx#: [id number] Potassium Chloride 10 meq 100 In Water For Injection 1 100ml.bag @ 100 mls/hr IVPB Q1H [facility] Rx#: [id number] Oral 460 75 Output: Urine 915 575 230 Other: Voiding Method Indwelling Catheter Indwelling Catheter Indwelling Catheter # Bowel Movements 1 ABP, PAP, CO, CI - Last Documented Arterial Blood Pressure 104/64 - Exam GENERAL DESCRIPTION: An elderly female intubated on the vent RESPIRATORY SYSTEM: Unlabored breathing , decreased breath sounds at bases HEART: S1 S2 regular rate and rhythm , ABDOMEN: Soft , no tenderness EXTREMITIES: No edema feet - Labs CBC & Chem 7: 12/26/23 03:58 12/26/23 03:58 Labs: Abnormal Lab Results - Last 24 Hours (Table) 12/25/23 12/25/23 12/25/23 Range/Units 16:08 19:48 23:51 Hgb (11.4-16.0) gm/dL MCV (80.0-100.0) fL MCH (25.0-35.0) pg MCHC (31.0-37.0) g/dL RDW (11.5-15.5) % Plt Count (150-450) k/uL Neutrophils # (1.3-7.7) k/uL Lymphocytes # (1.0-4.8) k/uL Sodium (137-145) mmol/L Potassium (3.5-5.1) mmol/L Chloride (98-107) mmol/L BUN (7-17) mg/dL Creatinine (0.52-1.04) mg/dL Glucose (74-99) mg/dL POC Glucose (mg/dL) 260 H 251 H 165 H (70-110) mg/dL Calcium (8.4-10.2) mg/dL AST (14-36) U/L ALT (4-34) U/L Alkaline Phosphatase (38-126) U/L Total Protein (6.3-8.2) g/dL Albumin (3.5-5.0) g/dL 12/26/23 12/26/23 12/26/23 Range/Units 03:58 03:58 04:23 Hgb 10.7 L (11.4-16.0) gm/dL MCV 72.3 L (80.0-100.0) fL MCH 20.8 L (25.0-35.0) pg MCHC 28.8 L (31.0-37.0) g/dL RDW 19.6 H (11.5-15.5) % Plt Count 115 L (150-450) k/uL Neutrophils # 8.5 H (1.3-7.7) k/uL Lymphocytes # 0.6 L (1.0-4.8) k/uL Sodium 135 L (137-145) mmol/L Potassium 5.3 H (3.5-5.1) mmol/L Chloride 109 H (98-107) mmol/L BUN 26 H (7-17) mg/dL Creatinine 0.46 L (0.52-1.04) mg/dL Glucose 142 H (74-99) mg/dL POC Glucose (mg/dL) 149 H (70-110) mg/dL Calcium 8.1 L (8.4-10.2) mg/dL AST 346 H (14-36) U/L ALT 1082 H (4-34) U/L Alkaline Phosphatase 33 L (38-126) U/L Total Protein 5.4 L (6.3-8.2) g/dL Albumin 2.9 L (3.5-5.0) g/dL 12/26/23 12/26/23 Range/Units 07:55 11:41 Hgb (11.4-16.0) gm/dL MCV (80.0-100.0) fL MCH (25.0-35.0) pg MCHC (31.0-37.0) g/dL RDW (11.5-15.5) % Plt Count (150-450) k/uL Neutrophils # (1.3-7.7) k/uL Lymphocytes # (1.0-4.8) k/uL Sodium (137-145) mmol/L Potassium (3.5-5.1) mmol/L Chloride (98-107) mmol/L BUN (7-17) mg/dL Creatinine (0.52-1.04) mg/dL Glucose (74-99) mg/dL POC Glucose (mg/dL) 140 H 188 H (70-110) mg/dL Calcium (8.4-10.2) mg/dL AST (14-36) U/L ALT (4-34) U/L Alkaline Phosphatase (38-126) U/L Total Protein (6.3-8.2) g/dL Albumin (3.5-5.0) g/dL Microbiology - Last 24 Hours (Table) 12/23/23 10:11 Blood Culture - Preliminary Blood 12/23/23 08:26 Gram Stain - Final Sputum Sputum Culture - Final Assessment and Plan (1) Fever Current Visit: Yes Status: Acute Code(s): R50.9 - FEVER, UNSPECIFIED SNOMED Code(s): 551640184 (2) Allergy to multiple antibiotics Current Visit: No Status: Acute Code(s): Z88.1 - ALLERGY STATUS TO OTHER ANTIBIOTIC AGENTS SNOMED Code(s): 597533528 (3) Aspiration pneumonia Current Visit: No Status: Acute Code(s): J69.0 - PNEUMONITIS DUE TO INHALATION OF FOOD AND VOMIT SNOMED Code(s): 550615692 Plan: 1patient with a fever and this patient presented to the hospital with increasing shortness of breath was intubated got extubated and has to be reintubated because of worsening respiratory status with a fever subsequently possible pulmonary source as the patient abdominal soft on clinical examination and no evidence of any cellulitis or joint swelling 2-bilateral sputum culture currently pending 3patient to continue with the Zosyn while waiting for the workup to be completed. Dictation was produced using [employer] dictation software. please excuse any grammatical, word or spelling errors. Time with Patient: Less than 30
--- NOTE | 2023-12-28 13:56 | P.PN ---
Subjective Progress Note Date: 12/27/23 Principal diagnosis: Reason for follow-up is fever Patient is a 73-year-old female with a past medical history significant for diabetes mellitus hypertension hyperlipidemia fibromyalgia COPD coronary disease patient presenting to the hospital on 12/16/2023 for evaluation of chest congestion and cough and increasing shortness of breath, patient got reintubated and did spike a fever prompting this consultation. On today's visit that is 12/27/2023,the patient remains to be afebrile, patient is on room air not requiring supplemental oxygen and denies any shortness of breath no chest pain did have occasional dry cough.Patient denies having any nausea or vomiting, no abdominal pain and no diarrhea has been reported Patient white count slightly up to 15.8 today, creatinine 0.53 Objective - Vital Signs Vital signs: Vital Signs Temp 98.5 F 12/27/23 11:42 Pulse 80 12/27/23 11:56 Resp 18 12/27/23 11:42 BP 124/77 12/27/23 11:42 Pulse Ox 94 L 12/27/23 11:42 FiO2 35 12/24/23 21:00 Intake & Output 12/26/23 12/27/23 12/27/23 18:59 06:59 18:59 Intake Total 445 118 0 Output Total 955 500 Balance -510 -382 0 Intake: IV 370 0.9 KVO 10 Dextrose 5% in Water 1, 350 000 ml @ 50 mls/hr IV . Q20H [facility] Rx#:[id number] Invasive Line 8 10 Oral 75 118 0 Output: Urine 955 500 Other: Voiding Method Indwelling Catheter Indwelling Catheter Indwelling Catheter # Bowel Movements 1 ABP, PAP, CO, CI - Last Documented Arterial Blood Pressure 104/64 - Exam GENERAL DESCRIPTION: An elderly female intubated on the vent RESPIRATORY SYSTEM: Unlabored breathing , decreased breath sounds at bases HEART: S1 S2 regular rate and rhythm , ABDOMEN: Soft , no tenderness EXTREMITIES: No edema feet - Labs CBC & Chem 7: 12/28/23 08:17 12/28/23 08:17 Labs: Abnormal Lab Results - Last 24 Hours (Table) 12/26/23 12/26/23 12/27/23 Range/Units 17:22 20:15 00:24 WBC (3.8-10.6) k/uL Hgb (11.4-16.0) gm/dL MCV (80.0-100.0) fL MCH (25.0-35.0) pg MCHC (31.0-37.0) g/dL RDW (11.5-15.5) % Neutrophils # (1.3-7.7) k/uL Sodium (137-145) mmol/L Potassium (3.5-5.1) mmol/L BUN (7-17) mg/dL POC Glucose (mg/dL) 230 H 222 H 177 H (70-110) mg/dL Calcium (8.4-10.2) mg/dL AST (14-36) U/L ALT (4-34) U/L Total Protein (6.3-8.2) g/dL Albumin (3.5-5.0) g/dL 12/27/23 12/27/23 12/27/23 Range/Units 08:00 08:00 08:03 WBC 15.8 H (3.8-10.6) k/uL Hgb 10.8 L (11.4-16.0) gm/dL MCV 71.7 L (80.0-100.0) fL MCH 20.9 L (25.0-35.0) pg MCHC 29.2 L (31.0-37.0) g/dL RDW 19.6 H (11.5-15.5) % Neutrophils # 14.1 H (1.3-7.7) k/uL Sodium 135 L (137-145) mmol/L Potassium 3.0 L (3.5-5.1) mmol/L BUN 20 H (7-17) mg/dL POC Glucose (mg/dL) 138 H (70-110) mg/dL Calcium 8.3 L (8.4-10.2) mg/dL AST 137 H (14-36) U/L ALT 827 H (4-34) U/L Total Protein 5.2 L (6.3-8.2) g/dL Albumin 2.8 L (3.5-5.0) g/dL Microbiology - Last 24 Hours (Table) 12/23/23 10:11 Blood Culture - Preliminary Blood Assessment and Plan (1) Allergy to multiple antibiotics Current Visit: No Status: Acute Code(s): Z88.1 - ALLERGY STATUS TO OTHER ANTIBIOTIC AGENTS SNOMED Code(s): 472443859 (2) Aspiration pneumonia Current Visit: No Status: Acute Code(s): J69.0 - PNEUMONITIS DUE TO INHALATION OF FOOD AND VOMIT SNOMED Code(s): 618146479 Plan: 1patient with a fever and this patient presented to the hospital with incre asing shortness of breath was intubated got extubated and has to be reintubated because of worsening respiratory status with a fever subsequently possible pulmonary source as the patient abdominal soft on clinical examination and no evidence of any cellulitis or joint swelling 2-patient blood and sputum culture has been negative 3patient Scot BLACKMON'd by pulmonary we will monitor the patient closely off antibiotic Dictation was produced using [employer] dictation software. please excuse any grammatical, word or spelling errors. Time with Patient: Less than 30
--- NOTE | 2023-12-28 13:57 | P.PN ---
Subjective Progress Note Date: 12/28/23 Principal diagnosis: Reason for follow-up is fever Patient is a 73-year-old female with a past medical history significant for diabetes mellitus hypertension hyperlipidemia fibromyalgia COPD coronary disease patient presenting to the hospital on 12/16/2023 for evaluation of chest congestion and cough and increasing shortness of breath, patient got reintubated and did spike a fever prompting this consultation. On today's visit that is 12/28/2023, the patient continues to be afebrile, the patient is on room air and breathing comfortably, the Pt denies having any chest pain and no worsening cough or sputum production, the patient denies having any abdominal pain no vomiting or any diarrhea has been reported by the nursing staff Patient white count slightly down to 15.2 today creatinine 0.58 Objective - Vital Signs Vital signs: Vital Signs Temp 97.9 F 12/28/23 11:41 Pulse 68 12/28/23 11:51 Resp 20 12/28/23 11:41 BP 122/76 12/28/23 11:41 Pulse Ox 99 12/28/23 11:41 FiO2 35 12/24/23 21:00 Intake & Output 12/27/23 12/28/23 12/28/23 18:59 06:59 18:59 Intake Total 118 0 Output Total 650 900 Balance -532 -900 0 Weight 85.4 kg Intake: Oral 118 0 Output: Urine 650 900 Other: Voiding Method Indwelling Catheter Indwelling Catheter Indwelling Catheter # Bowel Movements 1 ABP, PAP, CO, CI - Last Documented Arterial Blood Pressure 104/64 - Exam GENERAL DESCRIPTION: An elderly female lying in bed in no distress RESPIRATORY SYSTEM: Unlabored breathing , decreased breath sounds at bases HEART: S1 S2 regular rate and rhythm , ABDOMEN: Soft , no tenderness EXTREMITIES: No edema feet - Labs CBC & Chem 7: 12/28/23 08:17 12/28/23 08:17 Labs: Abnormal Lab Results - Last 24 Hours (Table) 12/27/23 12/27/23 12/28/23 Range/Units 16:27 19:56 00:23 WBC (3.8-10.6) k/uL Hgb (11.4-16.0) gm/dL MCV (80.0-100.0) fL MCH (25.0-35.0) pg MCHC (31.0-37.0) g/dL RDW (11.5-15.5) % Neutrophils # (1.3-7.7) k/uL Potassium (3.5-5.1) mmol/L Chloride (98-107) mmol/L Glucose (74-99) mg/dL POC Glucose (mg/dL) 162 H 217 H 148 H (70-110) mg/dL Calcium (8.4-10.2) mg/dL AST (14-36) U/L ALT (4-34) U/L Total Protein (6.3-8.2) g/dL Albumin (3.5-5.0) g/dL 12/28/23 12/28/23 12/28/23 Range/Units 05:54 06:09 08:17 WBC 15.2 H (3.8-10.6) k/uL Hgb 10.7 L (11.4-16.0) gm/dL MCV 71.3 L (80.0-100.0) fL MCH 20.5 L (25.0-35.0) pg MCHC 28.7 L (31.0-37.0) g/dL RDW 20.0 H (11.5-15.5) % Neutrophils # 11.9 H (1.3-7.7) k/uL Potassium (3.5-5.1) mmol/L Chloride (98-107) mmol/L Glucose (74-99) mg/dL POC Glucose (mg/dL) 69 L 66 L (70-110) mg/dL Calcium (8.4-10.2) mg/dL AST (14-36) U/L ALT (4-34) U/L Total Protein (6.3-8.2) g/dL Albumin (3.5-5.0) g/dL 12/28/23 Range/Units 08:17 WBC (3.8-10.6) k/uL Hgb (11.4-16.0) gm/dL MCV (80.0-100.0) fL MCH (25.0-35.0) pg MCHC (31.0-37.0) g/dL RDW (11.5-15.5) % Neutrophils # (1.3-7.7) k/uL Potassium 3.1 L (3.5-5.1) mmol/L Chloride 111 H (98-107) mmol/L Glucose 102 H (74-99) mg/dL POC Glucose (mg/dL) (70-110) mg/dL Calcium 8.2 L (8.4-10.2) mg/dL AST 84 H (14-36) U/L ALT 584 H (4-34) U/L Total Protein 5.4 L (6.3-8.2) g/dL Albumin 3.0 L (3.5-5.0) g/dL Assessment and Plan (1) Allergy to multiple antibiotics Current Visit: No Status: Acute Code(s): Z88.1 - ALLERGY STATUS TO OTHER ANTIBIOTIC AGENTS SNOMED Code(s): 941779608 (2) Aspiration pneumonia Current Visit: No Status: Acute Code(s): J69.0 - PNEUMONITIS DUE TO INHALATION OF FOOD AND VOMIT SNOMED Code(s): 767564643 Plan: 1patient with a fever and this patient presented to the hospital with increasing shortness of breath was intubated got extubated and has to be reintubated because of worsening respiratory status with a fever subsequently possible pulmonary source as the patient abdominal soft on clinical examination and no evidence of any cellulitis or joint swelling 2-patient blood and sputum culture has been negative 3patient white count mildly elevated though trending down we will recheck her WBC and flu markers with a.m. labs Dictation was produced using [employer] dictation software. please excuse any grammatical, word or spelling errors. Time with Patient: Less than 30
[2023-12-28] MEDS ORDERED: Potassium Replacement Protocol 1 EACH MISC MISCELLANE PRN (14:43)
--- NOTE | 2023-12-28 15:03 | P.PN ---
Subjective Progress Note Date: 12/28/23 Principal diagnosis: Acute hypoxic respiratory failure secondary to multifocal pneumonia On 12/18/2023, the patient is being seen in follow-up on the medical floor. The patient was found to be in significant degree of respiratory distress and the patient was using some accessory muscles of breathing. She was having frequent coughing episode and she was unable to catch her breath in between those coughing episodes. She was still responsive and communicating. At that point, I made recommendations to transfer this patient to the intensive care unit for further monitoring. Within 20 minutes, the patient became more diaphoretic, lethargic, quite obtunded and at that point, the patient had to be intubated and placed on the mechanical ventilator. I personally intubated the patient in the intensive care unit. I have her on a tidal volume of 350, rate of 24 with an FiO2 of 100% with a PEEP of 5. Postintubation chest x-ray showed extensive consolidation of the right lung and there is new airspace disease throughout the right lung along with some areas of consolidations and interstitial changes. Post NG tube insertion, the patient's stomach was decompressed and there was total amount of 500 cc of gastric material aspirated from the stomach. No reported aspiration. Obviously, the patient has multifocal pneumonia at this point in time more extensive in the right lung especially in the right middle and right lower lobe area. The white cell count at 7.1 with a hemoglobin 8.8, BUN is at 15 with a creatinine of 0.5 and sodium levels at 137. Potassium level is at 4.2. The patient was started on propofol for sedation. She was given also a dose of Nimbex during the intubation process 10 mg IV x 1. Blood gas are still pending. She may need a bronchoscopy and right lower lobe bronchoalveolar lavage. She remains on bronchodilators. She remains on steroids. Antibiotics will be modified and Zosyn will be added in combination with Zithromax. She has not required any pressors yet. She will be given a bolus of 1 L and following that she will be started on a maintenance of 100 cc an hour. Condition is obviously is critical at this point in time. Echocardiogram that was obtained on 10/19/2023 showed systolic heart failure with an underlying left ventricular ejection fraction of 30 to 35%. The patient also had mild RV dilatation, mild aortic regurgitation, mild to moderate mitral Regurgitation with a right ventricular systolic pressure of 32. He also has moderate degree of pulm hypertension. On today's evaluation of 12/19/2023, the patient is intubated on the mechanical ventilator. Overnight, the patient was kept intubated and the patient is sedated adequately with propofol which is running at 35 mcg/kg/min. As mentioned, the patient developed an extensive right lung pneumonia with respiratory failure requiring intubation mechanical ventilation. She currently has a #7.5 orotracheal tube. She is on assist-control mode of mechanical ventilation at a rate of 30, tidal volume of 350, FiO2 of 40% and a PEEP of 5. The peak airway pressure is around 25. The chest x-ray from today showing bilateral pleural effusion and significant consolidation of the right lung base and there is also some limited infiltration of the left lung base. I performed a bronchoscopy on this patient yesterday endobronchial lavage of the right lower lobe was obtained. The results are still pending for now. Meanwhile, the patient was covered with broad-spectrum antibiotic coverage and she is currently on a combination of Zosyn, Zithromax and vancomycin. The peak airway pressure is ranging between 21 and 23. The blood gas shows improvement in the pH is currently up to 7.36 with a pCO2 of 40 and pO2 of 189. Note that the patient was also given 2 doses of bicarb yesterday as the patient was quite acidotic. Rest of the blood work from today shows a WBC count of 9.9, hemoglobin of 9.1 and a platelet count of 288. Sodium is at 143,. Potassium level is at 3.8, BUN is at 25 with a creatinine of 0.9. LFTs are elevated with an AST of 525 and ALT of 448 and a bilirubin of 0.8. Her urine drug screen is positive for cannabis and the patient admits to smoke marijuana on a daily basis approximately 2 joints a day. She is on DuoNeb nebulized treatments [id number]. She is also on a combination of Perforomist and Pulmicort updrafts. She remains on IV Solu-Medrol. She is also on Lovenox 40 mg subcu for DVT prophylaxis. Feeding has not been started yet. Echocardiogram that was done on 10/19/2023 showed impaired LV function with an ejection fraction of 30 to 35%. We have not encountered any hypotension on this patient. She was quite tachycardic yesterday and she was placed briefly on norepinephrine yesterday for some li mited hypotension and this ultimately improved and her current mean arterial pressure is around 74. She is on insulin drip running at 3 units an hour. Blood sugars under better control for now. On 12/20/2023, the patient remains intubated on the mechanical ventilator. Note that the patient is also sedated with a combination of fentanyl and propofol. The propofol is running at 35 mcg/kg/min and the patient is also on fentanyl 0.5 mcg/kg/h. Adequately sedated and the patient is synchronous with mechanical ventilator. She is currently at a rate of 30, tidal volume of 350, FiO2 is down to 30% with a PEEP of 5. The follow-up chest x-ray showsNo significant consolidation. There is improved in the right lower lobe consolidation. There is also cardiomegaly and CHF with interstitial edema and small bilateral pleural effusion. ET tube remains in a good location. As for the blood gas, the patient has a pH of 7.4 with a pCO2 of 38 and pO2 of 126 and this was on FiO2 of 40%. No significant orotracheal secretions. Bronchoscopy endobronchial done but results are still pending for now and there is no significant microbial growth. The blood cultures been negative. On blood work, the patient's white cell count is 5.9 with a hemoglobin of 8.5 and a platelet count of 236. Sodium is 145, potassium is at 4, BUN is at 33 with a creatinine of 0.9. Viral screen has been negative. Legionella urine antigen has been negative. The patient is also receiving enteral feeding for nutritional support. The patient is currently on vital high-protein at the rate of 30 cc an hour and the patient is also on insulin drip at 5 units an hour. Overall fluid balance is +1.5 L over the past 24 hours. On 12/21/2023, the patient is being seen for a follow-up. The patient remains intubated and mechanically ventilated. She is calm and comfortable on a combination of propofol and fentanyl. Propofol is running at 35 mcg/kg/min and fentanyl is running at 0.5 mcg/kg/h. The patient remains intubated on mechanical ventilator. This morning, she is on assist-control of 20, tidal volume of 350, FiO2 of 30% with a PEEP of 5. She is calm and comfortable and synchronous with mechanical ventilator. Chest x-ray showing cardiomegaly and pulm vascular congestion at the bronchoscopy endobronchial lavage that was done earlier yielded no microbial growth thus far. Based on that, I am going to dis continue the vancomycin and keep the patient on a combination of Zosyn and Zithromax. Otherwise, the fluid balance is positive and the patient will be started on more aggressive diuresis. The patient remains on vital high-protein at the rate of 32 cc an hour. The chest x-ray from today is consistent with CHF Along with some lower lobe consolidation bilaterally and the possibility of pneumonia cannot be completely excluded. The white cell count is 4.5, hemoglobin is 8.5 and a platelet count is at 245. Sodium is at 145 with a potassium level of 3.8, BUN is 43 with a creatinine of 1.0. LFTs are essentially improving and the AST is down to 222 and the ALT is down to 3019. Cultures are negative. Antibiotics are mentioned and they will include a combination of Zosyn Zithromax and vancomycin will be discontinued. Noted the patient was given a sedation holiday yesterday and during the process the patient had a an episode of SVT. The patient was given adenosine and following that the patient was placed on Cardizem and currently she is off Cardizem and the cardiac rhythm is back into normal sinus rhythm. No other significant events overnight. No fever or chills. No hemodynamic instability. She is known to have cardiomyopathy with impaired LV function. The patient remains on insulin drip at 6 units an hour. Afebrile. Hemodynamically stable. No pressors. 12/22/2023, the patient is being seen in follow-up. Remains intubated on the mechanical ventilator. This morning, she remains on propofol at 30 mcg/kg/min and fentanyl is at 0.5 mcg/kg/h. She is on assist-control mode with rate of 20, tidal volume of 350, FiO2 is down to 30% with a PEEP of 5. Peak airway pressur es of 21. Blood gas showed a pH of 7.44 with a pCO2 of 45 and a pO2 of 99. The chest x-ray from today shows cardiomegaly and bilateral pleural effusions slightly worse on the right. There is no airspace disease or consolidations. The patient is hemodynamically stable. The patient is on no pressors. The white cell count of 5.3 with a hemoglobin of 9.2. Sodium is at 146 and a potassium level of 3.3, chloride is 111, bicarb is 31 with a BUN of 49 and a creatinine of 0.99. Bronchoscopy has not yielded any microbial growth. Vancomycin was discontinued yesterday the patient remains on a combination of Zosyn and and Zithromax. The patient is also being diuresed with IV Lasix 40 mg IV every 12 hours. Fluid balance is -3.9 L over the past 24 hours and the patient's volume status being further optimized. The patient is also on enteral feeding for nutritional support and she is on vital high-protein at the rate of 32 cc an hour. Insulin drip is at 6 units an hour. The patient has adequate blood sugar control. The patient is afebrile. No other significant events overnight. On 12/23/2023, the patient is being seen for a follow-up. The patient had a long and a lengthy day yesterday with many events occurring as the patient was weaned off initially of the sedation. She had adequate mentation. She had adequate weaning parameters. She was given a spontaneous breathing trial and following that the patient was extubated at this was probably sometime in the early afternoon. Initially she did well on nasal cannula. Subsequently, the patient became tachycardic, tachypneic, diaphoretic and she went to respiratory distress. She was also becoming significantly anxious. At that point, the patient was placed on a BiPAP to support her breathing. The subsequent blood gases were adequate. While on the BiPAP, the patient's pH was at 7.44 with pCO2 of 44 and pO2 of 63. At that point, the patient was started on Precedex which helped her quite a bit and improved her tachycardia and tachypnea. Her mentation was fluctuating and she was not fully coherent that she was following some simple commands. I decided not to reintubate the patient at this point. I diurese her aggressively and I put her on Lasix 10 mg an hour drip and the patient made excellent urine output and she has been negative fluid balance of at least 5.8 L over the past 24 hours. Nevertheless, at around 2 or 3 AM in the morning, the patient became again tachypneic. She became restless and significa ntly agitated. She was extubated and the patient had a repeat blood gas that showed a pH of 7.6 with a pCO2 of 36 and pO2 of 114 and this was done while her being on a BiPAP. Based on her overall condition, we decided to intubate the patient patient is currently intubated and on propofol which is running at 25 mcg/kg/min. She is calm and comfortable. Precedex has been discontinued. She has been Assist-control mode of mechanical ventilation at a rate of 20, tidal volume of 350, FiO2 of 50% with a PEEP of 5. His most recent blood gas shows a pH of 7.52 with a pCO2 of 47 and pO2 of 130. Her chest x-ray is showing lower lobe consolidation worse on the right. There is improvement in the volume status and in general. The orotracheal tube is in good location. The patient's blood work shows a component of hyponatremia with a sodium level of 150. Potassium is being replaced at 2.5, bicarb is at 40 BUN of 67 and a creatinine of 1.29. WBC count is at 8 with a hemoglobin 10.6 and a platelet count of 250. Enteral feeding for nutritional support is to be restarted. The patient was a lso started on low-dose norepinephrine overnight and currently she is on again 0.02 mcg/kg/min. Note that the previous bronchoscopy and the bronchial lavage yielded no microbial growth. As such, all cultures have been negative and the patient was taken off vancomycin yesterday. She remains on Zosyn. She also completed her course of Zithromax. On 12/24/2023, the patient remains intubated and mechanically ventilated. She failed initial trial of extubation. She was reintubated and the patient was kept on mechanical ventilator for the past 24 hours. Noted the extubation and reintubation was done on 12/22/2023. For now, the patient is sedated and she is currently on propofol running at 30 mcg/kg/min. She is being given a sedation holiday. The repeat chest x-ray from today shows marked clearing of the right lower lobe consolidation. The patient is on assist-control mode of mechanical v entilation of 20, tidal volume 350, FiO2 is at 40% with a PEEP of 5. The blood gases are adequate with a pH of 7.42 with a pCO2 of 48 and pO2 of 134. Hemodynamically, she is stable. She is running and low-dose norepinephrine at 0.03 mcg/kg/min. She has adequate urine output. The overall fluid balance over the past 24 hours has been +1 L. Note that the patient was given IV fluids in the form of D5 water regarding hyponatremia. Her sodium level is improved and currently is down to 146. Her acute kidney injury is also improved and the BUN is currently at 51 with a creatinine of 1.09. Potassium has been replaced and currently is up to 4.6. Blood sugars are adequate and the patient is currently off the insulin drip. Intensive antibiotic coverage, the patient remains on IV Zosyn. Based on her previous bronchoscopy and lavage, all of the micro blood cultures were negative. I discontinued the vancomycin. Patient is also off Zithromax. He is in the process of receiving sedation holiday this morning. Patient was evaluated today on 12/25/2023, patient remains in the ICU, she was e xtubated yesterday, and was extubated before and she had to be reintubated, she is now in the ICU on 5 L nasal cannula, she has BiPAP at bedside 09/27/40%, used it only briefly last night postextubation. Patient is doing well, relatively asymptomatic, she is on 5 L nasal cannula and not in distress. Chest x-ray this morning is showing no evidence of airspace disease, minimal atelectasis at the left base, chest x-ray is significantly improved. Labs today showed normal CBC, hemoglobin is 9.8 WBC count is 8 basic metabolic profile is normal except for slightly elevated sodium of 145, patient is receiving D5W. Medications turner, patient remains on updrafts, remains on bronchodilators, she is also on Lovenox subcu, she is also on diuretics and on Zosyn. Patient was reevaluated today on 12/26/2023, remains in the ICU, patient remains on amiodarone drip at 0.5 mg/min, patient is in atrial fibrillation but rate seems to be better controlled today compared to yesterday. She tolerated extubation well over the last 2 days, patient is sitting in bed, not in any distress, she is on 2 L nasal cannula. Patient remains on Zosyn empirically for presumptive pneumonia. Chest x-ray today was not done, but chest x-ray from yesterday showed left lower lobe atelectasis possible minimal consolidation in the left lower lobe/retrocardiac area. Labs today including CBC and basic metabolic profile are relatively normal, potassium is a bit high at 5.3. Blood cultures and sputum cultures have been negative on this patient. Even the BAL fluid was also negative patient was reevaluated today on 12/27/2023, patient was seen on the medical floor, she is out of the ICU now, doing quite well, she is on room air, not in any form of distress.Labs including CBC were reviewed WBC is 15.8 hemoglobin is 10.8 basic metabolic profile is normal potassium is 3 renal profile is normal. Patient was reevaluated today on 12/28/2023, patient seems to be doing well, patient was in the ICU and now she is on the medical floor, sitting in bed on room air, not in any distress, however the patient looks chronically ill, frail, and quite weak. Patient is telling me that she would like to be discharged home, however I believe the patient needs to be sent to ECF/rehab. WBC is 15.2 hemoglobin is 10.7 basic metabolic profile is normal renal profile is normal potassium is a bit low at 3.1 Objective - Vital Signs Vital signs: Vital Signs Temp 97.9 F 12/28/23 11:41 Pulse 68 12/28/23 11:51 Resp 20 12/28/23 11:41 BP 122/76 12/28/23 11:41 Pulse Ox 99 12/28/23 11:41 FiO2 35 12/24/23 21:00 Intake & Output 12/27/23 12/28/23 12/28/23 18:59 06:59 18:59 Intake Total 118 0 Output Total 245 755 5672 Balance -876 -021 -0856 Weight 85.4 kg Intake: Oral 118 0 Output: Urine [id number] Other: Voiding Method Indwelling Catheter Indwelling Catheter Indwelling Catheter # Bowel Movements 1 1 ABP, PAP, CO, CI - Last Documented Arterial Blood Pressure 104/64 - Exam General: Reveals 73-year-old female in no distress on room air. Patient seems to be chronically ill Head: Atraumatic, normocephalic. Skin: Skin is warm and dry and no rashes or lesions are noted. Eye: Pupils are equal, round and reactive to light, extra-ocular movements are intact; there is normal conjunctiva bilaterally. Ears, nose, mouth and throat: There are moist mucous membranes and no oral lesions. Neck: The neck is supple, there is no tenderness or JVD. Cardiovascular: Normal S1-S2, no S3 gallop, no murmur. Respiratory: Good breath sound bilaterally no rhonchi no wheezes slightly diminished at the bases Gastrointestinal: Soft, non-distended, non-tender abdomen without masses or organomegaly noted. There is no rebound or guarding present. Bowel sounds are unremarkable. Back: There is no tenderness to palpation in the midline. There is no obvious deformity. Musculoskeletal: Normal ROM, no tenderness, There is no pedal edema. Neurological: Alert and oriented x 3 no gross focal deficits. Psychiatric: Cooperative, appropriate mood & affect, normal judgment. - Labs CBC & Chem 7: 12/28/23 08:17 12/28/23 08:17 Labs: Abnormal Lab Results - Last 24 Hours (Table) 12/27/23 12/27/23 12/28/23 Range/Units 16:27 19:56 00:23 WBC (3.8-10.6) k/uL Hgb (11.4-16.0) gm/dL MCV (80.0-100.0) fL MCH (25.0-35.0) pg MCHC (31.0-37.0) g/dL RDW (11.5-15.5) % Neutrophils # (1.3-7.7) k/uL Potassium (3.5-5.1) mmol/L Chloride (98-107) mmol/L Glucose (74-99) mg/dL POC Glucose (mg/dL) 162 H 217 H 148 H (70-110) mg/dL Calcium (8.4-10.2) mg/dL AST (14-36) U/L ALT (4-34) U/L Total Protein (6.3-8.2) g/dL Albumin (3.5-5.0) g/dL 12/28/23 12/28/23 12/28/23 Range/Units 05:54 06:09 08:17 WBC 15.2 H (3.8-10.6) k/uL Hgb 10.7 L (11.4-16.0) gm/dL MCV 71.3 L (80.0-100.0) fL MCH 20.5 L (25.0-35.0) pg MCHC 28.7 L (31.0-37.0) g/dL RDW 20.0 H (11.5-15.5) % Neutrophils # 11.9 H (1.3-7.7) k/uL Potassium (3.5-5.1) mmol/L Chloride (98-107) mmol/L Glucose (74-99) mg/dL POC Glucose (mg/dL) 69 L 66 L (70-110) mg/dL Calcium (8.4-10.2) mg/dL AST (14-36) U/L ALT (4-34) U/L Total Protein (6.3-8.2) g/dL Albumin (3.5-5.0) g/dL 12/28/23 Range/Units 08:17 WBC (3.8-10.6) k/uL Hgb (11.4-16.0) gm/dL MCV (80.0-100.0) fL MCH (25.0-35.0) pg MCHC (31.0-37.0) g/dL RDW (11.5-15.5) % Neutrophils # (1.3-7.7) k/uL Potassium 3.1 L (3.5-5.1) mmol/L Chloride 111 H (98-107) mmol/L Glucose 102 H (74-99) mg/dL POC Glucose (mg/dL) (70-110) mg/dL Calcium 8.2 L (8.4-10.2) mg/dL AST 84 H (14-36) U/L ALT 584 H (4-34) U/L Total Protein 5.4 L (6.3-8.2) g/dL Albumin 3.0 L (3.5-5.0) g/dL Assessment and Plan Assessment: Impression: Acute hypoxic respiratory failure secondary to multifocal pneumonia, required intubation mechanical ventilation, extubated on 12/24/2023, tolerated extubation so far Acute hypernatremia, mostly secondary to free water deficit, resolved Acute metabolic alkalosis secondary to diuresis, resolved History of COPD, presently under control and stable History of coronary artery disease, status post bypass surgery. Chronic systolic heart failure with an ejection fraction of 30 to 35% along with moderate MR and mild to moderate pulm hypertension with a PA pressure of 32 History of diabetes mellitus, History of hyperlipidemia. History of hypertension. History of fibromyalgia. History of obstructive sleep apnea syndrome. History of polysubstance abuse. SVT, single episode, treated with adenosine resolved Left lower lobe atelectasis, possible pneumonia Recommendation: Continue present supportive care measures Continue oxygen and titrate accordingly Continue bronchodilators Antibiotics have been discontinued patient received a full course for presumptive aspiration pneumonia Oral prednisone burst and taper Continue Levemir insulin Incentive spirometry Ambulation Consider rehab placement Will clear for discharge to rehab if cleared by other consultants Time with Patient: Less than 30
[2023-12-28 16:28] LABS: Glucose,Whole Blood 245 mg/dL (70-110)
[2023-12-28 20:14] LABS: Glucose,Whole Blood 252 mg/dL (70-110)
[2023-12-28 23:10] LABS: Glucose,Whole Blood 107 mg/dL (70-110)
[2023-12-29 06:03] LABS: Glucose,Whole Blood 77 mg/dL (70-110)
[2023-12-29 07:35] LABS: Glucose,Whole Blood 77 mg/dL (70-110)
[2023-12-29 09:04] LABS: Anisocytosis Slight; Basophils % (A) 0 %; Eosinophils # (A) 0.2 k/uL (0-0.7); Eosinophils % (A) 1 %; HCT 37.1 % (34.0-46.0); HGB 10.6 gm/dL (11.4-16.0); Hypochromasia Marked; Lymphocytes # (A) 1.8 k/uL (1.0-4.8); Lymphocytes % (A) 15 %; MCH 21.2 pg (25.0-35.0); MCHC 28.7 g/dL (31.0-37.0); MCV 73.9 fL (80.0-100.0); Mean Platelet Volume 9.1; Microcytosis Moderate; Monocytes # (A) 0.8 k/uL (0-1.0); Monocytes % (A) 7 %; Neutrophils # (A) 8.7 k/uL (1.3-7.7); Neutrophils % (A) 76 %; Platelet Count 120 k/uL (150-450); RBC 5.03 m/uL (3.80-5.40); RDW 19.9 % (11.5-15.5); WBC 11.6 k/uL (3.8-10.6)
[2023-12-29] MEDS: HYDROcodone/APAP 5-325MG 1 EACH TAB PO PRN (09:19)
[2023-12-29 10:30] LABS: ALT 418 U/L (4-34); AST 58 U/L (14-36); African American GFR (CKD) >90 (>60 ml/min/1.73 sqM); Albumin 2.9 g/dL (3.5-5.0); Alkaline Phosphatase 72 U/L (38-126); Anion Gap 7 mmol/L; Blood Urea Nitrogen 11 mg/dL (7-17); C Reactive Protein 0.9 mg/dL (<1.0); Calcium 8.1 mg/dL (8.4-10.2); Carbon Dioxide 24 mmol/L (22-30); Chloride 107 mmol/L (98-107); Glucose 156 mg/dL (74-99); Non-African American GFR(CKD) >90 (>60 ml/min/1.73 sqM); Potassium 3.4 mmol/L (3.5-5.1); Sodium 138 mmol/L (137-145); Total Bilirubin 0.6 mg/dL (0.2-1.3); Total Protein 5.3 g/dL (6.3-8.2)
[2023-12-29] MEDS: POTASSIUM CHLORIDE ER 20 MEQ TAB.ER PO SCH (10:58)
--- NOTE | 2023-12-29 11:02 | P.PN ---
Subjective Mari Moore, is a 73 year old female who presented to [facility] with a chief complaint of worsening shortness of breath. Patient reports she's had a nonproductive cough and generalized weakness and upper respiratory symptoms over the past few days. Patient has an extensive medical history including asthma, heart failure, COPD, coronary artery disease with previous history of CABG, diabetes mellitus, fibromyalgia, sleep apnea, ex- smoker and current marijuana user. Chest x-ray completed in ER showing no acute pulmonary infiltrate. Current vital signs showing temperature 97.6, heart rate 97, respiratory 18, blood pressure 98/49 with a pulse ox of 96% on room air patient testing negative for influenza RSV and COVID-19. UA negative. Troponins negative 2. BNP elevated at 2130. White blood cell within normal limits hemoglobin 8.9 at this time primary service is consulted. Will consult cardiology services in order 2-D echo. Iron studies ordered for anemia patient started on IV Solu-Medrol DuoNeb breathing treatments. At this time pulmonary and cardiology services consulted. Continue azithromycin for upper respiratory infection. Iron studies for low hemoglobin. On 12/18/2023 patient was seen and examined in the ICU her condition has worsened this morning, she was having severe continuous cough and shortness of breath, she had decrease in her O2 sat duration, she was transferred to intensive care unit, chest x-ray revealed significant worsening since x-ray done on 12/16/2023 with large right middle lobe and right lower lobe infiltrates, possibly related to aspiration. At this time patient is intubated, sedated started on mechanical ventilation, IV Zosyn was added to her medication regimen, pulmonary critical care following. On 12/19/2023 patient remains in the ICU on mechanical ventilation FiO2 40%. Patient remains on IV sedation. Levophed has been DC'd. Patient remains on IV steroids and IV antibiotics. Pulmonary and cardiology services following. ABGs this a.m. pH 7.36, pCO2 40, pO2 189, HCO3 23 and total CO2 24. On 12/20/2023 patient remains in the ICU on mechanical ventilation FiO2 30%. Liver enzymes trending down AST 222 ALT 390. ABGs this a.m. pH 7.40, pCO2 38, pO2 126 sodium bicarb 24. Patient remains on IV Zosyn and IV vancomycin. Patient dakotah on IV steroids. On 12/21/2023 patient was seen and examined in the ICU she is intubated sedated maintained on mechanical ventilation, vital exam of this morning reveals a temperature of 99.4 heart rate 87 respiration 27 blood pressure 100/68 pulse ox 95% on FiO2 of 30% Arterial blood gas reveals pH 7.4 pCO2 39 CO2 94 liver enzymes remain elevated with ALT at 319 and AST at 222 patient is maintained on IV antibiotics Zosyn she also remains on pressure support. On 12/22/2023 patient was seen and examined in the ICU she is intubated sedated maintained on mechanical ventilation vital examination reveals a temperature of 99.4 pulse 92 respiration 20 blood pressure 106/69 pulse ox 97 percent on FiO2 of 30% she remains on assist control tidal volume 350 rate of 20 FiO2 30% and a PEEP of 5. Arterial blood gas reveals a pH of 7.44 pCO2 45 pO2 99 white blood count 5.3 hemoglobin 9.2 platelet count 213 BUN 49 creatinine 0.99 patient remains on pressure support with norepinephrine she remains on IV antibiotic Zo syn, pulmonary critical care, and cardiology are following. On 12/23/2023 patient was seen and examined in the ICU she is intubated sedated maintained on mechanical ventilation, vital exam reveals a temperature of 100.2, respiration 25 pulse 88 blood pressure 130/69 pulse ox 100% on FiO2 50% junior tljoselo patient is back on assist control rate of 20 tidal volume 350 FiO2 50% with PEEP of 5 arterial blood gas reveals pH of 7.5 to pCO2 47 CO2 130 potassium is low at 2.5 and is being corrected. She is still having episodes of fever, she is maintained on IV Zosyn, repeat blood culture ordered, infectious disease consultation requested. On 12/24/2023 patient was seen and examined in the ICU she is intubated sedated maintained on mechanical ventilation, nursing is reporting that patient has not had a bowel movement for several days, otherwise patient seems to be stable. Vital exam reveals a temperature of 99.3 pulse 84 respiration 22 blood pressure 104/55 pulse ox is 100% on mechanical ventilation. At this time patient is maintained on assist control tidal volume 350 rate of 20 FiO2 40% with a PEEP of 5 arterial blood gas this morning reveals a pH of 7.43 pCO2 48 pO2 134 BUN is elevated at 51 creatinine 1.09 there is elevation in liver enzymes with AST at 139 and a LT at 560 On 12/25/2023 patient was seen and examined in the ICU she is alert and oriented 3 in no apparent distress she was extubated yesterday she is maintained on oxygen at 5 L via nasal cannula, she denies any complaints at this time there is no fever or chills no headache or dizziness no chest pain no shortness of breath no cough no nausea or vomiting no abdominal pain no diarrhea and no urinary symptoms vital examination reveals a temperature of 98 pulse 104 respiration 18 blood pressure 108/95 pulse ox 99% on 5 L nasal cannula, laboratory data reveals a white blood count of 8.0 hemoglobin 9.8 platelet count 125 BUN 39 creatinine 0.83 on 12/26/2023 patient remains in the intensive care unit alert and oriented 3. Patient currently on 2 L nasal cannula. Patient was started on amiodarone per cardiology. Current vital signs temp 97.6, heart rate 62, respiratory rate 19, blood pressure 107/65 pulse ox 99% on 2 L. On 12/27/2023 patient is alert and oriented 3. Liver enzymes slightly improving awaiting abdominal ultrasound. Current vital signs temp 98.5, heart rate 59, respiratory rate teens, blood pressure 124/77 with pulse ox 94% on room air. Anticipate possible discharge in the next 24-48 hours On 12/28/2023 patient alert and oriented 3. Patient is resting comfortably in bed. Patient denies chest pain or shortness breath. Patient denies nausea vomiting or diarrhea. Patient denies any urinary burning or frequency Objective - Vital Signs Vital signs: Vital Signs Temp 98.3 F 12/28/23 08:30 Pulse 90 12/28/23 08:30 Resp 20 12/28/23 08:30 BP 148/78 12/28/23 08:30 Pulse Ox 97 12/28/23 08:30 FiO2 35 12/24/23 21:00 Intake & Output 12/27/23 12/28/23 12/28/23 18:59 06:59 18:59 Intake Total 118 0 Output Total 650 900 Balance -532 -900 0 Weight 85.4 kg Intake: Oral 118 0 Output: Urine 650 900 Other: Voiding Method Indwelling Catheter Indwelling Catheter Indwelling Catheter # Bowel Movements 1 ABP, PAP, CO, CI - Last Documented Arterial Blood Pressure 104/64 - Exam In general patient is intubated sedated maintained on mechanical ventilation Head normocephalic and atraumatic Neck supple no JVD no goiter Lungs exam reveals coarse crackles bilaterally no wheezing Heart regular rate and rhythm S1-S2, no rub or gallop Abdomen is soft nontender nondistended positive bowel sounds no hepatosplenomegaly Extremities no edema Neuro no gross focal deficit - Labs CBC & Chem 7: 12/29/23 08:21 12/29/23 08:21 Labs: Abnormal Lab Results - Last 24 Hours (Table) 12/27/23 12/27/23 12/27/23 Range/Units 08:00 16:27 19:56 WBC (3.8-10.6) k/uL Hgb (11.4-16.0) gm/dL MCV (80.0-100.0) fL MCH (25.0-35.0) pg MCHC (31.0-37.0) g/dL RDW (11.5-15.5) % Neutrophils # (1.3-7.7) k/uL Sodium 135 L (137-145) mmol/L Potassium 3.0 L (3.5-5.1) mmol/L BUN 20 H (7-17) mg/dL POC Glucose (mg/dL) 162 H 217 H (70-110) mg/dL Calcium 8.3 L (8.4-10.2) mg/dL AST 137 H (14-36) U/L ALT 827 H (4-34) U/L Total Protein 5.2 L (6.3-8.2) g/dL Albumin 2.8 L (3.5-5.0) g/dL 12/28/23 12/28/23 12/28/23 Range/Units 00:23 05:54 06:09 WBC (3.8-10.6) k/uL Hgb (11.4-16.0) gm/dL MCV (80.0-100.0) fL MCH (25.0-35.0) pg MCHC (31.0-37.0) g/dL RDW (11.5-15.5) % Neutrophils # (1.3-7.7) k/uL Sodium (137-145) mmol/L Potassium (3.5-5.1) mmol/L BUN (7-17) mg/dL POC Glucose (mg/dL) 148 H 69 L 66 L (70-110) mg/dL Calcium (8.4-10.2) mg/dL AST (14-36) U/L ALT (4-34) U/L Total Protein (6.3-8.2) g/dL Albumin (3.5-5.0) g/dL 12/28/23 Range/Units 08:17 WBC 15.2 H (3.8-10.6) k/uL Hgb 10.7 L (11.4-16.0) gm/dL MCV 71.3 L (80.0-100.0) fL MCH 20.5 L (25.0-35.0) pg MCHC 28.7 L (31.0-37.0) g/dL RDW 20.0 H (11.5-15.5) % Neutrophils # 11.9 H (1.3-7.7) k/uL Sodium (137-145) mmol/L Potassium (3.5-5.1) mmol/L BUN (7-17) mg/dL POC Glucose (mg/dL) (70-110) mg/dL Calcium (8.4-10.2) mg/dL AST (14-36) U/L ALT (4-34) U/L Total Protein (6.3-8.2) g/dL Albumin (3.5-5.0) g/dL Assessment and Plan Assessment: 1. Acute exacerbation of COPD. 2. Acute on chronic exacerbation of systolic CHF 3. Anemia. Iron studies ordered 4. Cardiomyopathy with an EF of 30-35% 5. History of non-STEMI September 2023 status post cardiac cath showing 80% stenosis of the stent patent 6. History of coronary artery disease disease status post CABG 7. History of diabetes mellitus type II 8. History of essential hypertension 9. History of hyperlipidemia. 10. Acute hypoxic respiratory failure requiring intubation and mechanical ventilation on 12/18/2023 11. Right middle lobe and right lower lobe infiltrates, suggestive of pneumonia, possible aspiration. DVT prophylaxis Lovenox. GI prophylaxis Protonix Cardiology and pulmonary service is consulted. Patient extubated Maintained on IV Zosyn Maintained on IV Solu-Medrol iron studies ordered
--- NOTE | 2023-12-29 11:05 | P.PN ---
Subjective Progress Note Date: 12/29/23 Mari Moore, is a 73 year old female who presented to [facility] with a chief complaint of worsening shortness of breath. Patient reports she's had a nonproductive cough and generalized weakness and upper respiratory symptoms over the past few days. Patient has an extensive medical history including asthma, heart failure, COPD, coronary artery disease with previous history of CABG, diabetes mellitus, fibromyalgia, sleep apnea, ex- smoker and current marijuana user. Chest x-ray completed in ER showing no acute pulmonary infiltrate. Current vital signs showing temperature 97.6, heart rate 97, respiratory 18, blood pressure 98/49 with a pulse ox of 96% on room air patient testing negative for influenza RSV and COVID-19. UA negative. Troponins negative 2. BNP elevated at 2130. White blood cell within normal limits hemoglobin 8.9 at this time primary service is consulted. Will consult cardiology services in order 2-D echo. Iron studies ordered for anemia patient started on IV Solu-Medrol DuoNeb breathing treatments. At this time pulmonary and cardiology services consulted. Continue azithromycin for upper respiratory infection. Iron studies for low hemoglobin. On 12/18/2023 patient was seen and examined in the ICU her condition has worsened this morning, she was having severe continuous cough and shortness of breath, she had decrease in her O2 sat duration, she was transferred to intensive care unit, chest x-ray revealed significant worsening since x-ray done on 12/16/2023 with large right middle lobe and right lower lobe infiltrates, possibly related to aspiration. At this time patient is intubated, sedated started on mechanical ventilation, IV Zosyn was added to her medication regimen, pulmonary critical care following. On 12/19/2023 patient remains in the ICU on mechanical ventilation FiO2 40%. Patient remains on IV sedation. Levophed has been DC'd. Patient remains on IV steroids and IV antibiotics. Pulmonary and cardiology services following. ABGs this a.m. pH 7.36, pCO2 40, pO2 189, HCO3 23 and total CO2 24. On 12/20/2023 patient remains in the ICU on mechanical ventilation FiO2 30%. Liver enzymes trending down AST 222 ALT 390. ABGs this a.m. pH 7.40, pCO2 38, pO2 126 sodium bicarb 24. Patient remains on IV Zosyn and IV vancomycin. Patient dakotah on IV steroids. On 12/21/2023 patient was seen and examined in the ICU she is intubated sedated maintained on mechanical ventilation, vital exam of this morning reveals a temp erature of 99.4 heart rate 87 respiration 27 blood pressure 100/68 pulse ox 95% on FiO2 of 30% Arterial blood gas reveals pH 7.4 pCO2 39 CO2 94 liver enzymes remain elevated with ALT at 319 and AST at 222 patient is maintained on IV antibiotics Zosyn she also remains on pressure support. On 12/22/2023 patient was seen and examined in the ICU she is intubated sedated maintained on mechanical ventilation vital examination reveals a temperature of 99.4 pulse 92 respiration 20 blood pressure 106/69 pulse ox 97 percent on FiO2 of 30% she remains on assist control tidal volume 350 rate of 20 FiO2 30% and a PEEP of 5. Arterial blood gas reveals a pH of 7.44 pCO2 45 pO2 99 white blood count 5.3 hemoglobin 9.2 platelet count 213 BUN 49 creatinine 0.99 patient remains on pressure support with norepinephrine she remains on IV antibiotic Zosyn, pulmonary critical care, and cardiology are following. On 12/23/2023 patient was seen and examined in the ICU she is intubated sedated maintained on mechanical ventilation, vital exam reveals a temperature of 100.2, respiration 25 pulse 88 blood pressure 130/69 pulse ox 100% on FiO2 50% currently patient is back on assist control rate of 20 tidal volume 350 FiO2 50% with PEEP of 5 arterial blood gas reveals pH of 7.5 to pCO2 47 CO2 130 potassium is low at 2.5 and is being corrected. She is still having episodes of fever, she is maintained on IV Zosyn, repeat blood culture ordered, infectious disease consultation requested. On 12/24/2023 patient was seen and examined in the ICU she is intubated sedated maintained on mechanical ventilation, nursing is reporting that patient has not had a bowel movement for several days, otherwise patient seems to be stable. Vital exam reveals a temperature of 99.3 pulse 84 respiration 22 blood pressure 104/55 pulse ox is 100% on mechanical ventilation. At this time patient is maintained on assist control tidal volume 350 rate of 20 FiO2 40% with a PEEP of 5 arterial blood gas this morning reveals a pH of 7.43 pCO2 48 pO2 134 BUN is elevated at 51 creatinine 1.09 there is elevation in liver enzymes with AST at 139 and a LT at 560 On 12/25/2023 patient was seen and examined in the ICU she is alert and oriented 3 in no apparent distress she was extubated yesterday she is maintained on oxygen at 5 L via nasal cannula, she denies any complaints at this time there is no fever or chills no headache or dizziness no chest pain no shortness of breath no cough no nausea or vomiting no abdominal pain no diarrhea and no urinary symptoms vital examination reveals a temperature of 98 pulse 104 respiration 18 blood pressure 108/95 pulse ox 99% on 5 L nasal cannula, laboratory data reveals a white blood count of 8.0 hemoglobin 9.8 platelet count 125 BUN 39 creatinine 0.83 on 12/26/2023 patient remains in the intensive care unit alert and oriented 3. Patient currently on 2 L nasal cannula. Patient was started on amiodarone per cardiology. Current vital signs temp 97.6, heart rate 62, respiratory rate 19, blood pressure 107/65 pulse ox 99% on 2 L. On 12/27/2023 patient is alert and oriented 3. Liver enzymes slightly improving awaiting abdominal ultrasound. Current vital signs temp 98.5, heart rate 59, respiratory rate teens, blood pressure 124/77 with pulse ox 94% on room air. Anticipate possible discharge in the next 24-48 hours On 12/28/2023 patient alert and oriented 3. Patient is resting comfortably in bed. Patient denies chest pain or shortness breath. Patient denies nausea vomiting or diarrhea. Patient denies any urinary burning or frequency On 12/29/2023 patient alert and oriented 3. Case management following for discharge planning apparently grandson is attempting to get guardianship and patient DC'd the [facility] facility. Awaiting further plan. Objective - Vital Signs Vital signs: Vital Signs Temp 98.0 F 12/29/23 07:30 Pulse 80 12/29/23 08:58 Resp 16 12/29/23 07:30 BP 126/88 12/29/23 07:30 Pulse Ox 98 12/29/23 08:40 FiO2 35 12/24/23 21:00 Intake & Output 12/28/23 12/29/23 12/29/23 18:59 06:59 18:59 Intake Total 110 540 240 Output Total 4450 2150 650 Balance -4340 -1610 -410 Intake: Oral 110 540 240 Output: Urine 4450 2150 650 Other: Voiding Method Indwelling Catheter Indwelling Catheter Indwelling Catheter # Bowel Movements 1 ABP, PAP, CO, CI - Last Documented Arterial Blood Pressure 104/64 - Exam In general patient is intubated sedated maintained on mechanical ventilation Head normocephalic and atraumatic Neck supple no JVD no goiter Lungs exam reveals coarse crackles bilaterally no wheezing Heart regular rate and rhythm S1-S2, no rub or gallop Abdomen is soft nontender nondistended positive bowel sounds no hepatosplenomegaly Extremities no edema Neuro no gross focal deficit - Labs CBC & Chem 7: 12/29/23 08:21 12/29/23 08:21 Labs: Abnormal Lab Results - Last 24 Hours (Table) 12/28/23 12/28/23 12/29/23 Range/Units 16:26 20:12 08:21 WBC 11.6 H (3.8-10.6) k/uL Hgb 10.6 L (11.4-16.0) gm/dL MCV 73.9 L (80.0-100.0) fL MCH 21.2 L (25.0-35.0) pg MCHC 28.7 L (31.0-37.0) g/dL RDW 19.9 H (11.5-15.5) % Plt Count 120 L (150-450) k/uL Neutrophils # 8.7 H (1.3-7.7) k/uL Potassium (3.5-5.1) mmol/L Glucose (74-99) mg/dL POC Glucose (mg/dL) 245 H 252 H (70-110) mg/dL Calcium (8.4-10.2) mg/dL AST (14-36) U/L ALT (4-34) U/L Total Protein (6.3-8.2) g/dL Albumin (3.5-5.0) g/dL 12/29/23 Range/Units 08:21 WBC (3.8-10.6) k/uL Hgb (11.4-16.0) gm/dL MCV (80.0-100.0) fL MCH (25.0-35.0) pg MCHC (31.0-37.0) g/dL RDW (11.5-15.5) % Plt Count (150-450) k/uL Neutrophils # (1.3-7.7) k/uL Potassium 3.4 L (3.5-5.1) mmol/L Glucose 156 H (74-99) mg/dL POC Glucose (mg/dL) (70-110) mg/dL Calcium 8.1 L (8.4-10.2) mg/dL AST 58 H (14-36) U/L ALT 418 H (4-34) U/L Total Protein 5.3 L (6.3-8.2) g/dL Albumin 2.9 L (3.5-5.0) g/dL Microbiology - Last 24 Hours (Table) 12/18/23 16:40 Acid Fast Bacilli Smear - Preliminary Bronchoalviolar Lavage - Right Acid Fast Bacilli Culture - Preliminary 12/23/23 10:11 Blood Culture - Final Blood Assessment and Plan Assessment: 1. Acute exacerbation of COPD. 2. Acute on chronic exacerbation of systolic CHF 3. Anemia. Iron studies ordered 4. Cardiomyopathy with an EF of 30-35% 5. History of non-STEMI September 2023 status post cardiac cath showing 80% stenosis of the stent patent 6. History of coronary artery disease disease status post CABG 7. History of diabetes mellitus type II 8. History of essential hypertension 9. History of hyperlipidemia. 10. Acute hypoxic respiratory failure requiring intubation and mechanical ventilation on 12/18/2023 11. Right middle lobe and right lower lobe infiltrates, suggestive of pneumonia, possible aspiration. DVT prophylaxis Lovenox. GI prophylaxis Protonix Cardiology and pulmonary service is consulted. Patient extubated Maintained on IV Zosyn Maintained on IV Solu-Medrol iron studies ordered
--- NOTE | 2023-12-29 11:29 | P.PN ---
Subjective HISTORY OF PRESENT ILLNESS: The patient is a 73-year-old female patient with extensive cardiac history consistent of coronary artery disease with a prior revascularization with CABG and stenting with the last heart catheterization was performed in September 2023 and no need for revascularization advised at that point as well as cardiomyopathy with an ejection fraction between 30-35% as well as valvular heart disease with moderate mitral regurgitation. The patient presented to the hospital with shortness of breath associated with extensive cough and congestion. Initially she was admitted to the third floor but because she continues to have extensive cough associated with respiratory distress she was transferred to the intensive care unit and subsequently she was intubated and placed on mechanical ventilation. 12/19/2023 The patient was seen this morning. She is hemodynamically stable beside soft blood pressure. Currently she is not on vasopressors and she was weaned from vasopressors earlier today. Beside that she has been maintaining normal sinus mechanism. The possible diagnosis is pneumonia/sepsis and blood culture was s ent. She doesn't seems in overt congestive heart failure overall. We'll follow-up with a chest x-ray from this morning. She was given one dose of Lasix last night. The last echo from September showed an EF between 30-35%. The examination is remarkable for regular rhythm with distant heart sounds and diminished breathing sounds bilaterally and no edema was noted. 12/20/2023 The patient was seen and evaluated this morning. She continues to be intubated on mechanical ventilation but hemodynamically stable with a soft blood pressure and mean pressure above 65 mmHg. She underwent bronchoscopy yesterday. The chest x-ray showed right lower lobe infiltrate/pneumonia. She is on antibiotic. She has been maintaining normal sinus mechanism with ventricular bigeminy but her electrolytes including potassium was on the low side and that has been replaced. From a cardiac arrest or standpoint of view, would continue the current medical regimen and continue following up with the patient. The examination is remarkable for regular rhythm with diminished breathing sounds bilaterally January 19, 2024 The patient was seen and evaluated this morning. Hemodynamically she is stable with marginal pressure. Upon extubation yesterday she went into a wide-complex rhythm seems to be consistent with ventricular tachycardia, sustained versus nonsustained. She was given adenosine. She was started on Cardizem IV. Currently she is an sinus mechanism. Because her pressure is marginal and going to stop the Cardizem and start the patient on metoprolol tartrate 12.5 mg p.o. twice daily. Her potassium was marginal and that was replaced. Will check her magnesium. Her ejection fraction is low at 35%. If she has that rhythm again she might benefit from amiodarone bolus and drip. Meanwhile she was given Lasix yesterday. The chest x-ray today appears to be better. December 22, 2023 The patient was seen and evaluated this morning. She continues to be intubated on mechanical ventilation but hemodynamically stable. Her potassium continues to be low. Currently she is on Lasix at 40 mg IV 3 times daily which ongoing to decrease to 40 mg IV twice daily and add Aldactone to the current medical regimen as a potassium sparing agent and she was on that medication for cardiomyopathy at home. Also she did have an episode of nonsustained ventricular tachycardia last night and with that being said I am going to increase the dose of metoprolol. Consider adding lisinopril also to the current medical regimen for the cardiomyopathy down the line. Beside that her potassium was replaced. Magnesium was checked. The chest x-ray was reviewed. The blood work was reviewed as well. The examination showed stable vital signs with regular rhythm and distant heart sounds and diminished breathing sounds bilaterally. She has mild bilateral lower extremities edema December 23, 2023 The patient was seen and evaluated this morning. She was reintubated again because of increased breathing work. She was hemodynamically unstable and requiring norepinephrine but currently she is off norepinephrine. She has been maintaining normal sinus mechanism. She is on Aldactone and also she is on beta-marcos which we will continue at this point. Consider adding lisinopril to the current medical regimen once her pressure is better. The examination is remarkable for diminished breathing sounds bilaterally and regular rate and rhythm and no edema was noted. December 24, 2023 The patient was seen and evaluated this morning. She was extubated earlier today. She has been maintaining normal sinus mechanism. She is hemodynamically stable. Currently she is on beta-marcos and she is on Aldactone. The pressure remains soft. I would consider adding ALEJANDRA inhibitors to the current medical regimen once her pressure is more stable. She is currently on BiPAP. Examination is remarkable for distant heart sounds with diminished breathing sounds bilaterally and mild lower extremities edema noted. 12/24 Patient was seen and examined at bedside this a.m. Patient was extubated on 12/24/2023. Patient has continued to be in sinus rhythm. Her chest x-ray does not show signs of pulmonary congestion. She is normotensive. Her renal function is stable at 0.6. 12/26/2023 Patient was extubated 12/24/2023. Since then she has been doing well. She was noticed to be in atrial fibrillation with RVR last night. For this she was started on IV amiodarone. This morning patient's liver function was declining with ALT going into thousands. Thereafter amiodarone was discontinued. Hb 10.7, platelets 115, sodium 135, potassium 5.3, creatinine 0.4, ALT 1082, AST 346 BP 140/66, heart rate 88, currently in sinus rhythm with frequent PACs and PVCs on telemetry 12/27/2023 Patient examined this morning at the bedside. Patient currently denies chest pain or pressure. She denies shortness of breath. Telemetry reveals sinus mechanism with PACs. No further episodes of atrial fibrillation noted. LFTs trending downward. AST 137. ALT 828. 12/28/2023 Patient examined this morning at the bedside. Patient is confused today which is a change from yesterday. Patient denying chest pain or pressure. She denies shortness of breath. Telemetry reveals sinus mechanism with a heart rate in the 70s. 12/29/2023 Patient examined this morning. Patient is sitting up in the chair. She appears to remain confused still although improved from yesterday. Patient denies chest pain or pressure. She denies shortness of breath. Vital signs are stable. Telemetry reveals sinus mechanism. PHYSICAL EXAM: VITAL SIGNS: Reviewed. GENERAL: Well-developed in no acute distress. NECK: Supple. No JVD or thyromegaly LUNGS: Respirations even and unlabored. Lungs essentially clear to auscultation bilaterally. HEART: Regular rate and rhythm. S1 and S2 heard. EXTREMITIES: Normal range of motion. No clubbing or cyanosis. Peripheral pulses intact. No lower extremity edema ASSESSMENT: Acute hypoxic respiratory failure Pneumonia Coronary artery disease Cardiomyopathy, ischemic EF 30-35% New onset atrial fibrillation, currently maintaining sinus mechanism Valvular heart disease Transaminitis PLAN: Continue current cardiac medications Avoid amiodarone secondary to transaminitis Patient is stable for discharge to [facility] today from a cardiac standpoint Nurse practitioner note has been reviewed by physician. Signing provider agrees with the documented findings, assessment, and plan of care documented by [employer] as a scribe. Objective - Vital Signs Vital signs: Vital Signs Temp 98.0 F 12/29/23 07:30 Pulse 80 12/29/23 08:58 Resp 16 12/29/23 07:30 BP 126/88 12/29/23 07:30 Pulse Ox 98 12/29/23 08:40 FiO2 35 12/24/23 21:00 Intake & Output 12/28/23 12/29/23 12/29/23 18:59 06:59 18:59 Intake Total 110 540 240 Output Total 4450 2150 650 Balance -4340 -1610 -410 Intake: Oral 110 540 240 Output: Urine 4450 2150 650 Other: Voiding Method Indwelling Catheter Indwelling Catheter Indwelling Catheter # Bowel Movements 1 ABP, PAP, CO, CI - Last Documented Arterial Blood Pressure 104/64 - Labs CBC & Chem 7: 12/29/23 08:21 12/29/23 08:21 Labs: Abnormal Lab Results - Last 24 Hours (Table) 12/28/23 12/28/23 12/29/23 Range/Units 16:26 20:12 08:21 WBC 11.6 H (3.8-10.6) k/uL Hgb 10.6 L (11.4-16.0) gm/dL MCV 73.9 L (80.0-100.0) fL MCH 21.2 L (25.0-35.0) pg MCHC 28.7 L (31.0-37.0) g/dL RDW 19.9 H (11.5-15.5) % Plt Count 120 L (150-450) k/uL Neutrophils # 8.7 H (1.3-7.7) k/uL Potassium (3.5-5.1) mmol/L Glucose (74-99) mg/dL POC Glucose (mg/dL) 245 H 252 H (70-110) mg/dL Calcium (8.4-10.2) mg/dL AST (14-36) U/L ALT (4-34) U/L Total Protein (6.3-8.2) g/dL Albumin (3.5-5.0) g/dL 12/29/23 Range/Units 08:21 WBC (3.8-10.6) k/uL Hgb (11.4-16.0) gm/dL MCV (80.0-100.0) fL MCH (25.0-35.0) pg MCHC (31.0-37.0) g/dL RDW (11.5-15.5) % Plt Count (150-450) k/uL Neutrophils # (1.3-7.7) k/uL Potassium 3.4 L (3.5-5.1) mmol/L Glucose 156 H (74-99) mg/dL POC Glucose (mg/dL) (70-110) mg/dL Calcium 8.1 L (8.4-10.2) mg/dL AST 58 H (14-36) U/L ALT 418 H (4-34) U/L Total Protein 5.3 L (6.3-8.2) g/dL Albumin 2.9 L (3.5-5.0) g/dL Microbiology - Last 24 Hours (Table) 12/18/23 16:40 Acid Fast Bacilli Smear - Preliminary Bronchoalviolar Lavage - Right Acid Fast Bacilli Culture - Preliminary 12/23/23 10:11 Blood Culture - Final Blood
[2023-12-29] MEDS: ALPRAZolam 0.5 MG TAB PO PRN (11:40)
[2023-12-29 11:57] LABS: Glucose,Whole Blood 157 mg/dL (70-110)
--- NOTE | 2023-12-29 13:11 | P.PN ---
Subjective Progress Note Date: 12/29/23 Principal diagnosis: Acute hypoxic respiratory failure secondary to multifocal pneumonia On 12/18/2023, the patient is being seen in follow-up on the medical floor. The patient was found to be in significant degree of respiratory distress and the patient was using some accessory muscles of breathing. She was having frequent coughing episode and she was unable to catch her breath in between those coughing episodes. She was still responsive and communicating. At that point, I made recommendations to transfer this patient to the intensive care unit for further monitoring. Within 20 minutes, the patient became more diaphoretic, lethargic, quite obtunded and at that point, the patient had to be intubated and placed on the mechanical ventilator. I personally intubated the patient in the intensive care unit. I have her on a tidal volume of 350, rate of 24 with an FiO2 of 100% with a PEEP of 5. Postintubation chest x-ray showed extensive consolidation of the right lung and there is new airspace disease throughout the right lung along with some areas of consolidations and interstitial changes. Post NG tube insertion, the patient's stomach was decompressed and there was total amount of 500 cc of gastric material aspirated from the stomach. No reported aspiration. Obviously, the patient has multifocal pneumonia at this point in time more extensive in the right lung especially in the right middle and right lower lobe area. The white cell count at 7.1 with a hemoglobin 8.8, BUN is at 15 with a creatinine of 0.5 and sodium levels at 137. Potassium level is at 4.2. The patient was started on propofol for sedation. She was given also a dose of Nimbex during the intubation process 10 mg IV x 1. Blood gas are still pending. She may need a bronchoscopy and right lower lobe bronchoalveolar lavage. She remains on bronchodilators. She remains on steroids. Antibiotics will be modified and Zosyn will be added in combination with Zithromax. She has not required any pressors yet. She will be given a bolus of 1 L and following that she will be started on a maintenance of 100 cc an hour. Condition is obviously is critical at this point in time. Echocardiogram that was obtained on 10/19/2023 showed systolic heart failure with an underlying left ventricular ejection fraction of 30 to 35%. The patient also had mild RV dilatation, mild aortic regurgitation, mild to moderate mitral Regurgitation with a right ventricular systolic pressure of 32. He also has moderate degree of pulm hypertension. On today's evaluation of 12/19/2023, the patient is intubated on the mechanical ventilator. Overnight, the patient was kept intubated and the patient is sedated adequately with propofol which is running at 35 mcg/kg/min. As mentioned, the patient developed an extensive right lung pneumonia with respiratory failure requiring intubation mechanical ventilation. She currently has a #7.5 orotracheal tube. She is on assist-control mode of mechanical ventilation at a rate of 30, tidal volume of 350, FiO2 of 40% and a PEEP of 5. The peak airway pressure is around 25. The chest x-ray from today showing bilateral pleural effusion and significant consolidation of the right lung base and there is also some limited infiltration of the left lung base. I performed a bronchoscopy on this patient yesterday endobronchial lavage of the right lower lobe was obtained. The results are still pending for now. Meanwhile, the patient was covered with broad-spectrum antibiotic coverage and she is currently on a combination of Zosyn, Zithromax and vancomycin. The peak airway pressure is ranging between 21 and 23. The blood gas shows improvement in the pH is currently up to 7.36 with a pCO2 of 40 and pO2 of 189. Note that the patient was also given 2 doses of bicarb yesterday as the patient was quite acidotic. Rest of the blood work from today shows a WBC count of 9.9, hemoglobin of 9.1 and a platelet count of 288. Sodium is at 143,. Potassium level is at 3.8, BUN is at 25 with a creatinine of 0.9. LFTs are elevated with an AST of 525 and ALT of 448 and a bilirubin of 0.8. Her urine drug screen is positive for cannabis and the patient admits to smoke marijuana on a daily basis approximately 2 joints a day. She is on DuoNeb nebulized treatments [id number]. She is also on a combination of Perforomist and Pulmicort updrafts. She remains on IV Solu-Medrol. She is also on Lovenox 40 mg subcu for DVT prophylaxis. Feeding has not been started yet. Echocardiogram that was done on 10/19/2023 showed impaired LV function with an ejection fraction of 30 to 35%. We have not encountered any hypotension on this patient. She was quite tachycardic yesterday and she was placed briefly on norepinephrine yesterday for some li mited hypotension and this ultimately improved and her current mean arterial pressure is around 74. She is on insulin drip running at 3 units an hour. Blood sugars under better control for now. On 12/20/2023, the patient remains intubated on the mechanical ventilator. Note that the patient is also sedated with a combination of fentanyl and propofol. The propofol is running at 35 mcg/kg/min and the patient is also on fentanyl 0.5 mcg/kg/h. Adequately sedated and the patient is synchronous with mechanical ventilator. She is currently at a rate of 30, tidal volume of 350, FiO2 is down to 30% with a PEEP of 5. The follow-up chest x-ray showsNo significant consolidation. There is improved in the right lower lobe consolidation. There is also cardiomegaly and CHF with interstitial edema and small bilateral pleural effusion. ET tube remains in a good location. As for the blood gas, the patient has a pH of 7.4 with a pCO2 of 38 and pO2 of 126 and this was on FiO2 of 40%. No significant orotracheal secretions. Bronchoscopy endobronchial done but results are still pending for now and there is no significant microbial growth. The blood cultures been negative. On blood work, the patient's white cell count is 5.9 with a hemoglobin of 8.5 and a platelet count of 236. Sodium is 145, potassium is at 4, BUN is at 33 with a creatinine of 0.9. Viral screen has been negative. Legionella urine antigen has been negative. The patient is also receiving enteral feeding for nutritional support. The patient is currently on vital high-protein at the rate of 30 cc an hour and the patient is also on insulin drip at 5 units an hour. Overall fluid balance is +1.5 L over the past 24 hours. On 12/21/2023, the patient is being seen for a follow-up. The patient remains intubated and mechanically ventilated. She is calm and comfortable on a combination of propofol and fentanyl. Propofol is running at 35 mcg/kg/min and fentanyl is running at 0.5 mcg/kg/h. The patient remains intubated on mechanical ventilator. This morning, she is on assist-control of 20, tidal volume of 350, FiO2 of 30% with a PEEP of 5. She is calm and comfortable and synchronous with mechanical ventilator. Chest x-ray showing cardiomegaly and pulm vascular congestion at the bronchoscopy endobronchial lavage that was done earlier yielded no microbial growth thus far. Based on that, I am going to dis continue the vancomycin and keep the patient on a combination of Zosyn and Zithromax. Otherwise, the fluid balance is positive and the patient will be started on more aggressive diuresis. The patient remains on vital high-protein at the rate of 32 cc an hour. The chest x-ray from today is consistent with CHF Along with some lower lobe consolidation bilaterally and the possibility of pneumonia cannot be completely excluded. The white cell count is 4.5, hemoglobin is 8.5 and a platelet count is at 245. Sodium is at 145 with a potassium level of 3.8, BUN is 43 with a creatinine of 1.0. LFTs are essentially improving and the AST is down to 222 and the ALT is down to 3019. Cultures are negative. Antibiotics are mentioned and they will include a combination of Zosyn Zithromax and vancomycin will be discontinued. Noted the patient was given a sedation holiday yesterday and during the process the patient had a an episode of SVT. The patient was given adenosine and following that the patient was placed on Cardizem and currently she is off Cardizem and the cardiac rhythm is back into normal sinus rhythm. No other significant events overnight. No fever or chills. No hemodynamic instability. She is known to have cardiomyopathy with impaired LV function. The patient remains on insulin drip at 6 units an hour. Afebrile. Hemodynamically stable. No pressors. 12/22/2023, the patient is being seen in follow-up. Remains intubated on the mechanical ventilator. This morning, she remains on propofol at 30 mcg/kg/min and fentanyl is at 0.5 mcg/kg/h. She is on assist-control mode with rate of 20, tidal volume of 350, FiO2 is down to 30% with a PEEP of 5. Peak airway pressur es of 21. Blood gas showed a pH of 7.44 with a pCO2 of 45 and a pO2 of 99. The chest x-ray from today shows cardiomegaly and bilateral pleural effusions slightly worse on the right. There is no airspace disease or consolidations. The patient is hemodynamically stable. The patient is on no pressors. The white cell count of 5.3 with a hemoglobin of 9.2. Sodium is at 146 and a potassium level of 3.3, chloride is 111, bicarb is 31 with a BUN of 49 and a creatinine of 0.99. Bronchoscopy has not yielded any microbial growth. Vancomycin was discontinued yesterday the patient remains on a combination of Zosyn and and Zithromax. The patient is also being diuresed with IV Lasix 40 mg IV every 12 hours. Fluid balance is -3.9 L over the past 24 hours and the patient's volume status being further optimized. The patient is also on enteral feeding for nutritional support and she is on vital high-protein at the rate of 32 cc an hour. Insulin drip is at 6 units an hour. The patient has adequate blood sugar control. The patient is afebrile. No other significant events overnight. On 12/23/2023, the patient is being seen for a follow-up. The patient had a long and a lengthy day yesterday with many events occurring as the patient was weaned off initially of the sedation. She had adequate mentation. She had adequate weaning parameters. She was given a spontaneous breathing trial and following that the patient was extubated at this was probably sometime in the early afternoon. Initially she did well on nasal cannula. Subsequently, the patient became tachycardic, tachypneic, diaphoretic and she went to respiratory distress. She was also becoming significantly anxious. At that point, the patient was placed on a BiPAP to support her breathing. The subsequent blood gases were adequate. While on the BiPAP, the patient's pH was at 7.44 with pCO2 of 44 and pO2 of 63. At that point, the patient was started on Precedex which helped her quite a bit and improved her tachycardia and tachypnea. Her mentation was fluctuating and she was not fully coherent that she was following some simple commands. I decided not to reintubate the patient at this point. I diurese her aggressively and I put her on Lasix 10 mg an hour drip and the patient made excellent urine output and she has been negative fluid balance of at least 5.8 L over the past 24 hours. Nevertheless, at around 2 or 3 AM in the morning, the patient became again tachypneic. She became restless and significa ntly agitated. She was extubated and the patient had a repeat blood gas that showed a pH of 7.6 with a pCO2 of 36 and pO2 of 114 and this was done while her being on a BiPAP. Based on her overall condition, we decided to intubate the patient patient is currently intubated and on propofol which is running at 25 mcg/kg/min. She is calm and comfortable. Precedex has been discontinued. She has been Assist-control mode of mechanical ventilation at a rate of 20, tidal volume of 350, FiO2 of 50% with a PEEP of 5. His most recent blood gas shows a pH of 7.52 with a pCO2 of 47 and pO2 of 130. Her chest x-ray is showing lower lobe consolidation worse on the right. There is improvement in the volume status and in general. The orotracheal tube is in good location. The patient's blood work shows a component of hyponatremia with a sodium level of 150. Potassium is being replaced at 2.5, bicarb is at 40 BUN of 67 and a creatinine of 1.29. WBC count is at 8 with a hemoglobin 10.6 and a platelet count of 250. Enteral feeding for nutritional support is to be restarted. The patient was a lso started on low-dose norepinephrine overnight and currently she is on again 0.02 mcg/kg/min. Note that the previous bronchoscopy and the bronchial lavage yielded no microbial growth. As such, all cultures have been negative and the patient was taken off vancomycin yesterday. She remains on Zosyn. She also completed her course of Zithromax. On 12/24/2023, the patient remains intubated and mechanically ventilated. She failed initial trial of extubation. She was reintubated and the patient was kept on mechanical ventilator for the past 24 hours. Noted the extubation and reintubation was done on 12/22/2023. For now, the patient is sedated and she is currently on propofol running at 30 mcg/kg/min. She is being given a sedation holiday. The repeat chest x-ray from today shows marked clearing of the right lower lobe consolidation. The patient is on assist-control mode of mechanical v entilation of 20, tidal volume 350, FiO2 is at 40% with a PEEP of 5. The blood gases are adequate with a pH of 7.42 with a pCO2 of 48 and pO2 of 134. Hemodynamically, she is stable. She is running and low-dose norepinephrine at 0.03 mcg/kg/min. She has adequate urine output. The overall fluid balance over the past 24 hours has been +1 L. Note that the patient was given IV fluids in the form of D5 water regarding hyponatremia. Her sodium level is improved and currently is down to 146. Her acute kidney injury is also improved and the BUN is currently at 51 with a creatinine of 1.09. Potassium has been replaced and currently is up to 4.6. Blood sugars are adequate and the patient is currently off the insulin drip. Intensive antibiotic coverage, the patient remains on IV Zosyn. Based on her previous bronchoscopy and lavage, all of the micro blood cultures were negative. I discontinued the vancomycin. Patient is also off Zithromax. He is in the process of receiving sedation holiday this morning. Patient was evaluated today on 12/25/2023, patient remains in the ICU, she was e xtubated yesterday, and was extubated before and she had to be reintubated, she is now in the ICU on 5 L nasal cannula, she has BiPAP at bedside 09/27/40%, used it only briefly last night postextubation. Patient is doing well, relatively asymptomatic, she is on 5 L nasal cannula and not in distress. Chest x-ray this morning is showing no evidence of airspace disease, minimal atelectasis at the left base, chest x-ray is significantly improved. Labs today showed normal CBC, hemoglobin is 9.8 WBC count is 8 basic metabolic profile is normal except for slightly elevated sodium of 145, patient is receiving D5W. Medications turner, patient remains on updrafts, remains on bronchodilators, she is also on Lovenox subcu, she is also on diuretics and on Zosyn. Patient was reevaluated today on 12/26/2023, remains in the ICU, patient remains on amiodarone drip at 0.5 mg/min, patient is in atrial fibrillation but rate seems to be better controlled today compared to yesterday. She tolerated extubation well over the last 2 days, patient is sitting in bed, not in any distress, she is on 2 L nasal cannula. Patient remains on Zosyn empirically for presumptive pneumonia. Chest x-ray today was not done, but chest x-ray from yesterday showed left lower lobe atelectasis possible minimal consolidation in the left lower lobe/retrocardiac area. Labs today including CBC and basic metabolic profile are relatively normal, potassium is a bit high at 5.3. Blood cultures and sputum cultures have been negative on this patient. Even the BAL fluid was also negative patient was reevaluated today on 12/27/2023, patient was seen on the medical floor, she is out of the ICU now, doing quite well, she is on room air, not in any form of distress.Labs including CBC were reviewed WBC is 15.8 hemoglobin is 10.8 basic metabolic profile is normal potassium is 3 renal profile is normal. Patient was reevaluated today on 12/28/2023, patient seems to be doing well, patient was in the ICU and now she is on the medical floor, sitting in bed on room air, not in any distress, however the patient looks chronically ill, frail, and quite weak. Patient is telling me that she would like to be discharged home, however I believe the patient needs to be sent to ECF/rehab. WBC is 15.2 hemoglobin is 10.7 basic metabolic profile is normal renal profile is normal potassium is a bit low at 3.1 Patient was seen and evaluated today on 12/29/2023, continues to do extremely well, however she seems to be tearful and emotional, upset that she could not be discharged home and family is requesting placement. Pulmonary turner the patient is on room air, not in any distress, and I will clear the patient for discharge to ECF possibly today. CBC is relatively normal basic metabolic profile is normal renal profile is normal Objective - Vital Signs Vital signs: Vital Signs Temp 98.0 F 12/29/23 07:30 Pulse 72 12/29/23 13:00 Resp 16 12/29/23 11:00 BP 119/74 12/29/23 11:00 Pulse Ox 99 12/29/23 11:00 FiO2 35 12/24/23 21:00 Intake & Output 12/28/23 12/29/23 12/29/23 18:59 06:59 18:59 Intake Total 110 540 240 Output Total 4450 2150 1350 Balance -4340 -1610 -1110 Intake: Oral 110 540 240 Output: Urine 4450 2150 1350 Other: Voiding Method Indwelling Catheter Indwelling Catheter Bedside Commode External Catheter # Voids 1 # Bowel Movements 1 ABP, PAP, CO, CI - Last Documented Arterial Blood Pressure 104/64 - Exam General: Reveals 73-year-old female in no distress on room air. Head: Atraumatic, normocephalic. Skin: Skin is warm and dry and no rashes or lesions are noted. Eye: Pupils are equal, round and reactive to light, extra-ocular movements are intact; there is normal conjunctiva bilaterally. Ears, nose, mouth and throat: There are moist mucous membranes and no oral lesions. Neck: The neck is supple, there is no tenderness or JVD. Cardiovascular: Normal S1-S2, no S3 gallop, no murmur. Respiratory: Good breath sound bilaterally no rhonchi no wheezes Gastrointestinal: Soft, non-distended, non-tender abdomen without masses or organomegaly noted. There is no rebound or guarding present. Bowel sounds are unremarkable. Back: There is no tenderness to palpation in the midline. There is no obvious deformity. Musculoskeletal: Normal ROM, no tenderness, There is no pedal edema. Neurological: Alert and oriented x 3 no gross focal deficits. Psychiatric: Cooperative, appropriate mood & affect, normal judgment. - Labs CBC & Chem 7: 12/29/23 08:21 12/29/23 08:21 Labs: Abnormal Lab Results - Last 24 Hours (Table) 12/28/23 12/28/23 12/29/23 Range/Units 16:26 20:12 08:21 WBC 11.6 H (3.8-10.6) k/uL Hgb 10.6 L (11.4-16.0) gm/dL MCV 73.9 L (80.0-100.0) fL MCH 21.2 L (25.0-35.0) pg MCHC 28.7 L (31.0-37.0) g/dL RDW 19.9 H (11.5-15.5) % Plt Count 120 L (150-450) k/uL Neutrophils # 8.7 H (1.3-7.7) k/uL Potassium (3.5-5.1) mmol/L Glucose (74-99) mg/dL POC Glucose (mg/dL) 245 H 252 H (70-110) mg/dL Calcium (8.4-10.2) mg/dL AST (14-36) U/L ALT (4-34) U/L Total Protein (6.3-8.2) g/dL Albumin (3.5-5.0) g/dL 12/29/23 12/29/23 Range/Units 08:21 11:55 WBC (3.8-10.6) k/uL Hgb (11.4-16.0) gm/dL MCV (80.0-100.0) fL MCH (25.0-35.0) pg MCHC (31.0-37.0) g/dL RDW (11.5-15.5) % Plt Count (150-450) k/uL Neutrophils # (1.3-7.7) k/uL Potassium 3.4 L (3.5-5.1) mmol/L Glucose 156 H (74-99) mg/dL POC Glucose (mg/dL) 157 H (70-110) mg/dL Calcium 8.1 L (8.4-10.2) mg/dL AST 58 H (14-36) U/L ALT 418 H (4-34) U/L Total Protein 5.3 L (6.3-8.2) g/dL Albumin 2.9 L (3.5-5.0) g/dL Microbiology - Last 24 Hours (Table) 12/18/23 16:40 Acid Fast Bacilli Smear - Preliminary Bronchoalviolar Lavage - Right Acid Fast Bacilli Culture - Preliminary 12/23/23 10:11 Blood Culture - Final Blood Assessment and Plan Assessment: Impression: Acute hypoxic respiratory failure secondary to multifocal pneumonia, required intubation mechanical ventilation, extubated on 12/24/2023, tolerated extubation so far Acute hypernatremia, mostly secondary to free water deficit, resolved Acute metabolic alkalosis secondary to diuresis, resolved History of COPD, presently under control and stable History of coronary artery disease, status post bypass surgery. Chronic systolic heart failure with an ejection fraction of 30 to 35% along with moderate MR and mild to moderate pulm hypertension with a PA pressure of 32 History of diabetes mellitus, History of hyperlipidemia. History of hypertension. History of fibromyalgia. History of obstructive sleep apnea syndrome. History of polysubstance abuse. SVT, single episode, treated with adenosine resolved Left lower lobe atelectasis, possible pneumonia Recommendation: Continue present supportive care measures Continue bronchodilators Oral prednisone burst and taper Continue Levemir insulin Incentive spirometry Ambulation Cleared for discharge to rehab today Time with Patient: Less than 30
--- NOTE | 2023-12-29 16:31 | P.PN ---
Subjective Progress Note Date: 12/29/23 Principal diagnosis: Reason for follow-up is fever Patient is a 73-year-old female with a past medical history significant for diabetes mellitus hypertension hyperlipidemia fibromyalgia COPD coronary disease patient presenting to the hospital on 12/16/2023 for evaluation of chest congestion and cough and increasing shortness of breath, patient got reintubated and did spike a fever prompting this consultation. On today's visit that is12/29/2023, Patient is afebrile patient is currently on room air and denies having any shortness of breath, the patient denies any chest pain, did have occasional dry cough, the patient denies any nausea vomiting did not have any abdominal pain and no diarrhea, no new symptoms. Patient white count is 11.6 down from yesterday at 15.2, creatinine 0.90 blood culture negative Objective - Vital Signs Vital signs: Vital Signs Temp 98.0 F 12/29/23 07:30 Pulse 80 12/29/23 08:58 Resp 16 12/29/23 07:30 BP 126/88 12/29/23 07:30 Pulse Ox 98 12/29/23 08:40 FiO2 35 12/24/23 21:00 Intake & Output 12/28/23 12/29/23 12/29/23 18:59 06:59 18:59 Intake Total 110 540 240 Output Total 4450 2150 650 Balance -4340 -1610 -410 Intake: Oral 110 540 240 Output: Urine 4450 2150 650 Other: Voiding Method Indwelling Catheter Indwelling Catheter Indwelling Catheter # Bowel Movements 1 ABP, PAP, CO, CI - Last Documented Arterial Blood Pressure 104/64 - Exam GENERAL DESCRIPTION: An elderly female lying in bed in no distress RESPIRATORY SYSTEM: Unlabored breathing , decreased breath sounds at bases HEART: S1 S2 regular rate and rhythm , ABDOMEN: Soft , no tenderness EXTREMITIES: No edema feet - Labs CBC & Chem 7: 12/29/23 08:21 12/29/23 08:21 Labs: Abnormal Lab Results - Last 24 Hours (Table) 12/28/23 12/28/23 12/29/23 Range/Units 16:26 20:12 08:21 WBC 11.6 H (3.8-10.6) k/uL Hgb 10.6 L (11.4-16.0) gm/dL MCV 73.9 L (80.0-100.0) fL MCH 21.2 L (25.0-35.0) pg MCHC 28.7 L (31.0-37.0) g/dL RDW 19.9 H (11.5-15.5) % Plt Count 120 L (150-450) k/uL Neutrophils # 8.7 H (1.3-7.7) k/uL Potassium (3.5-5.1) mmol/L Glucose (74-99) mg/dL POC Glucose (mg/dL) 245 H 252 H (70-110) mg/dL Calcium (8.4-10.2) mg/dL AST (14-36) U/L ALT (4-34) U/L Total Protein (6.3-8.2) g/dL Albumin (3.5-5.0) g/dL 12/29/23 Range/Units 08:21 WBC (3.8-10.6) k/uL Hgb (11.4-16.0) gm/dL MCV (80.0-100.0) fL MCH (25.0-35.0) pg MCHC (31.0-37.0) g/dL RDW (11.5-15.5) % Plt Count (150-450) k/uL Neutrophils # (1.3-7.7) k/uL Potassium 3.4 L (3.5-5.1) mmol/L Glucose 156 H (74-99) mg/dL POC Glucose (mg/dL) (70-110) mg/dL Calcium 8.1 L (8.4-10.2) mg/dL AST 58 H (14-36) U/L ALT 418 H (4-34) U/L Total Protein 5.3 L (6.3-8.2) g/dL Albumin 2.9 L (3.5-5.0) g/dL Microbiology - Last 24 Hours (Table) 12/18/23 16:40 Acid Fast Bacilli Smear - Preliminary Bronchoalviolar Lavage - Right Acid Fast Bacilli Culture - Preliminary 12/23/23 10:11 Blood Culture - Final Blood Assessment and Plan (1) Allergy to multiple antibiotics Current Visit: No Status: Acute Code(s): Z88.1 - ALLERGY STATUS TO OTHER ANTIBIOTIC AGENTS SNOMED Code(s): 658825996 (2) Aspiration pneumonia Current Visit: No Status: Acute Code(s): J69.0 - PNEUMONITIS DUE TO INHALATION OF FOOD AND VOMIT SNOMED Code(s): 827146371 (3) Leukocytosis Current Visit: No Status: Acute Code(s): D72.829 - ELEVATED WHITE BLOOD CELL COUNT, UNSPECIFIED SNOMED Code(s): 513747441 Plan: 1patient with a fever and this patient presented to the hospital with increasing shortness of breath was intubated got extubated and has to be reintubated because of worsening respiratory status with a fever subsequently possible pulmonary source as the patient abdominal soft on clinical examination and no evidence of any cellulitis or joint swelling 2-patient blood and sputum culture has been negative 3patient white count is trending down and did have a normal CRP and a procalcitonin at the same time patient is afebrile, will monitor closely off antibiotics Dictation was produced using [employer] dictation software. please excuse any grammatical, word or spelling errors.
[2023-12-29 17:19] LABS: Glucose,Whole Blood 327 mg/dL (70-110)
[2023-12-29 20:02] LABS: Glucose,Whole Blood 370 mg/dL (70-110)
[2023-12-30 07:21] LABS: Glucose,Whole Blood 72 mg/dL (70-110)
--- NOTE | 2023-12-30 09:54 | P.PN ---
Subjective Progress Note Date: 12/30/23 Mari Moore, is a 73 year old female who presented to [facility] with a chief complaint of worsening shortness of breath. Patient reports she's had a nonproductive cough and generalized weakness and upper respiratory symptoms over the past few days. Patient has an extensive medical history including asthma, heart failure, COPD, coronary artery disease with previous history of CABG, diabetes mellitus, fibromyalgia, sleep apnea, ex- smoker and current marijuana user. Chest x-ray completed in ER showing no acute pulmonary infiltrate. Current vital signs showing temperature 97.6, heart rate 97, respiratory 18, blood pressure 98/49 with a pulse ox of 96% on room air patient testing negative for influenza RSV and COVID-19. UA negative. Troponins negative 2. BNP elevated at 2130. White blood cell within normal limits hemoglobin 8.9 at this time primary service is consulted. Will consult cardiology services in order 2-D echo. Iron studies ordered for anemia patient started on IV Solu-Medrol DuoNeb breathing treatments. At this time pulmonary and cardiology services consulted. Continue azithromycin for upper respiratory infection. Iron studies for low hemoglobin. On 12/18/2023 patient was seen and examined in the ICU her condition has worsened this morning, she was having severe continuous cough and shortness of breath, she had decrease in her O2 sat duration, she was transferred to intensive care unit, chest x-ray revealed significant worsening since x-ray done on 12/16/2023 with large right middle lobe and right lower lobe infiltrates, possibly related to aspiration. At this time patient is intubated, sedated started on mechanical ventilation, IV Zosyn was added to her medication regimen, pulmonary critical care following. On 12/19/2023 patient remains in the ICU on mechanical ventilation FiO2 40%. Patient remains on IV sedation. Levophed has been DC'd. Patient remains on IV steroids and IV antibiotics. Pulmonary and cardiology services following. ABGs this a.m. pH 7.36, pCO2 40, pO2 189, HCO3 23 and total CO2 24. On 12/20/2023 patient remains in the ICU on mechanical ventilation FiO2 30%. Liver enzymes trending down AST 222 ALT 390. ABGs this a.m. pH 7.40, pCO2 38, pO2 126 sodium bicarb 24. Patient remains on IV Zosyn and IV vancomycin. Patient dakotah on IV steroids. On 12/21/2023 patient was seen and examined in the ICU she is intubated sedated maintained on mechanical ventilation, vital exam of this morning reveals a temp erature of 99.4 heart rate 87 respiration 27 blood pressure 100/68 pulse ox 95% on FiO2 of 30% Arterial blood gas reveals pH 7.4 pCO2 39 CO2 94 liver enzymes remain elevated with ALT at 319 and AST at 222 patient is maintained on IV antibiotics Zosyn she also remains on pressure support. On 12/22/2023 patient was seen and examined in the ICU she is intubated sedated maintained on mechanical ventilation vital examination reveals a temperature of 99.4 pulse 92 respiration 20 blood pressure 106/69 pulse ox 97 percent on FiO2 of 30% she remains on assist control tidal volume 350 rate of 20 FiO2 30% and a PEEP of 5. Arterial blood gas reveals a pH of 7.44 pCO2 45 pO2 99 white blood count 5.3 hemoglobin 9.2 platelet count 213 BUN 49 creatinine 0.99 patient remains on pressure support with norepinephrine she remains on IV antibiotic Zosyn, pulmonary critical care, and cardiology are following. On 12/23/2023 patient was seen and examined in the ICU she is intubated sedated maintained on mechanical ventilation, vital exam reveals a temperature of 100.2, respiration 25 pulse 88 blood pressure 130/69 pulse ox 100% on FiO2 50% currently patient is back on assist control rate of 20 tidal volume 350 FiO2 50% with PEEP of 5 arterial blood gas reveals pH of 7.5 to pCO2 47 CO2 130 potassium is low at 2.5 and is being corrected. She is still having episodes of fever, she is maintained on IV Zosyn, repeat blood culture ordered, infectious disease consultation requested. On 12/24/2023 patient was seen and examined in the ICU she is intubated sedated maintained on mechanical ventilation, nursing is reporting that patient has not had a bowel movement for several days, otherwise patient seems to be stable. Vital exam reveals a temperature of 99.3 pulse 84 respiration 22 blood pressure 104/55 pulse ox is 100% on mechanical ventilation. At this time patient is maintained on assist control tidal volume 350 rate of 20 FiO2 40% with a PEEP of 5 arterial blood gas this morning reveals a pH of 7.43 pCO2 48 pO2 134 BUN is elevated at 51 creatinine 1.09 there is elevation in liver enzymes with AST at 139 and a LT at 560 On 12/25/2023 patient was seen and examined in the ICU she is alert and oriented 3 in no apparent distress she was extubated yesterday she is maintained on oxygen at 5 L via nasal cannula, she denies any complaints at this time there is no fever or chills no headache or dizziness no chest pain no shortness of breath no cough no nausea or vomiting no abdominal pain no diarrhea and no urinary symptoms vital examination reveals a temperature of 98 pulse 104 respiration 18 blood pressure 108/95 pulse ox 99% on 5 L nasal cannula, laboratory data reveals a white blood count of 8.0 hemoglobin 9.8 platelet count 125 BUN 39 creatinine 0.83 on 12/26/2023 patient remains in the intensive care unit alert and oriented 3. Patient currently on 2 L nasal cannula. Patient was started on amiodarone per cardiology. Current vital signs temp 97.6, heart rate 62, respiratory rate 19, blood pressure 107/65 pulse ox 99% on 2 L. On 12/27/2023 patient is alert and oriented 3. Liver enzymes slightly improving awaiting abdominal ultrasound. Current vital signs temp 98.5, heart rate 59, respiratory rate teens, blood pressure 124/77 with pulse ox 94% on room air. Anticipate possible discharge in the next 24-48 hours On 12/28/2023 patient alert and oriented 3. Patient is resting comfortably in bed. Patient denies chest pain or shortness breath. Patient denies nausea vomiting or diarrhea. Patient denies any urinary burning or frequency On 12/29/2023 patient alert and oriented 3. Case management following for discharge planning apparently grandson is attempting to get guardianship and patient DC'd the [facility] facility. Awaiting further plan. On 12/30/2023 patient was seen and examined on the medical floor, she is alert and oriented 3 in no apparent distress she denies any complaints at this time there is no fever or chills no headache or dizziness no chest pain no shortness of breath no cough no nausea or vomiting no abdominal pain no diarrhea and no urinary symptoms, awaiting discharge planning. Objective - Vital Signs Vital signs: Vital Signs Temp 97.4 F L 12/30/23 07:08 Pulse 82 12/30/23 08:21 Resp 18 12/30/23 07:08 BP 84/52 12/30/23 07:08 Pulse Ox 94 L 12/30/23 07:59 FiO2 35 12/24/23 21:00 Intake & Output 12/29/23 12/30/23 12/30/23 18:59 06:59 18:59 Intake Total 540 240 Output Total 1350 Balance -810 240 Weight 85.4 kg Intake: Oral 540 240 Output: Urine 1350 Other: Voiding Method Bedside Commode Bedside Commode External Catheter # Voids 1 1 1 # Bowel Movements 0 ABP, PAP, CO, CI - Last Documented Arterial Blood Pressure 104/64 - Exam In general patient is intubated sedated maintained on mechanical ventilation Head normocephalic and atraumatic Neck supple no JVD no goiter Lungs exam reveals coarse crackles bilaterally no wheezing Heart regular rate and rhythm S1-S2, no rub or gallop Abdomen is soft nontender nondistended positive bowel sounds no hepatosplenomegaly Extremities no edema Neuro no gross focal deficit - Labs CBC & Chem 7: 12/29/23 08:21 12/29/23 08:21 Labs: Abnormal Lab Results - Last 24 Hours (Table) 12/29/23 12/29/23 12/29/23 Range/Units 08:21 08:21 11:55 WBC 11.6 H (3.8-10.6) k/uL Hgb 10.6 L (11.4-16.0) gm/dL MCV 73.9 L (80.0-100.0) fL MCH 21.2 L (25.0-35.0) pg MCHC 28.7 L (31.0-37.0) g/dL RDW 19.9 H (11.5-15.5) % Plt Count 120 L (150-450) k/uL Neutrophils # 8.7 H (1.3-7.7) k/uL Potassium 3.4 L (3.5-5.1) mmol/L Glucose 156 H (74-99) mg/dL POC Glucose (mg/dL) 157 H (70-110) mg/dL Calcium 8.1 L (8.4-10.2) mg/dL AST 58 H (14-36) U/L ALT 418 H (4-34) U/L Total Protein 5.3 L (6.3-8.2) g/dL Albumin 2.9 L (3.5-5.0) g/dL 12/29/23 12/29/23 Range/Units 17:16 20:00 WBC (3.8-10.6) k/uL Hgb (11.4-16.0) gm/dL MCV (80.0-100.0) fL MCH (25.0-35.0) pg MCHC (31.0-37.0) g/dL RDW (11.5-15.5) % Plt Count (150-450) k/uL Neutrophils # (1.3-7.7) k/uL Potassium (3.5-5.1) mmol/L Glucose (74-99) mg/dL POC Glucose (mg/dL) 327 H 370 H (70-110) mg/dL Calcium (8.4-10.2) mg/dL AST (14-36) U/L ALT (4-34) U/L Total Protein (6.3-8.2) g/dL Albumin (3.5-5.0) g/dL Microbiology - Last 24 Hours (Table) 12/18/23 16:40 Fungal Culture - Preliminary Bronchoalviolar Lavage - Right Assessment and Plan Assessment: 1. Acute exacerbation of COPD. 2. Acute on chronic exacerbation of systolic CHF 3. Anemia. Iron studies ordered 4. Cardiomyopathy with an EF of 30-35% 5. History of non-STEMI September 2023 status post cardiac cath showing 80% stenosis of the stent patent 6. History of coronary artery disease disease status post CABG 7. History of diabetes mellitus type II 8. History of essential hypertension 9. History of hyperlipidemia. 10. Acute hypoxic respiratory failure requiring intubation and mechanical ventilation on 12/18/2023 11. Right middle lobe and right lower lobe infiltrates, suggestive of pneumonia, possible aspiration. DVT prophylaxis Lovenox. GI prophylaxis Protonix Cardiology and pulmonary service is consulted. Patient extubated Maintained on IV Zosyn Maintained on IV Solu-Medrol iron studies ordered
[2023-12-30] MEDS: TORSEMIDE 20 MG TAB PO SCH (10:46)
--- NOTE | 2023-12-30 11:49 | P.PN ---
Subjective Progress Note Date: 12/30/23 The patient is seen today December 30, 2023 in follow-up on the regular medical floor. She is currently sitting up in a chair. Awake and alert in no acute distress. Denies any worsening shortness of breath, cough or congestion. She is maintaining O2 saturations in the 90s on room air. Glucose 72. She is continued on DuoNeb ventilations, Pulmicort and performing scintillations, prednisone taper. Anticoagulated with Eliquis. Remains on oral diuretics. Objective - Vital Signs Vital signs: Vital Signs Temp 97.4 F L 12/30/23 07:08 Pulse 84 12/30/23 11:39 Resp 18 12/30/23 07:08 BP 127/70 12/30/23 09:36 Pulse Ox 94 L 12/30/23 07:59 FiO2 35 12/24/23 21:00 Intake & Output 12/29/23 12/30/23 12/30/23 18:59 06:59 18:59 Intake Total 540 240 Output Total 1350 Balance -810 240 Weight 85.4 kg Intake: Oral 540 240 Output: Urine 1350 Other: Voiding Method Bedside Commode Bedside Commode External Catheter # Voids 1 1 1 # Bowel Movements 0 ABP, PAP, CO, CI - Last Documented Arterial Blood Pressure 104/64 - Exam GENERAL EXAM: Alert, 73-year-old female, on room air, up in a chair, comfortable in no apparent distress. HEAD: Normocephalic. EYES: Normal reaction of pupils, equal size. NOSE: Clear with pink turbinates. THROAT: No erythema or exudates. NECK: No masses, no JVD. CHEST: No chest wall deformity. LUNGS: Equal air entry with no crackles, wheeze, rhonchi or dullness. Diminished CVS: S1 and S2 normal with no audible murmur, regular rhythm. ABDOMEN: No hepatosplenomegaly, normal bowel sounds, no guarding or rigidity. SPINE: No scoliosis or deformity SKIN: No rashes CENTRAL NERVOUS SYSTEM: No focal deficits, tone is normal in all 4 extremities. EXTREMITIES: There is no peripheral edema. No clubbing, no cyanosis. Peripheral pulses are intact. - Labs CBC & Chem 7: 12/29/23 08:21 12/29/23 08:21 Labs: Abnormal Lab Results - Last 24 Hours (Table) 12/29/23 12/29/23 12/29/23 Range/Units 11:55 17:16 20:00 POC Glucose (mg/dL) 157 H 327 H 370 H (70-110) mg/dL Microbiology - Last 24 Hours (Table) 12/18/23 16:40 Fungal Culture - Preliminary Bronchoalviolar Lavage - Right Assessment and Plan Assessment: Acute hypoxic respiratory failure secondary to multifocal pneumonia, required intubation mechanical ventilation, extubated on 12/24/2023, recovered and on room air Acute hypernatremia, mostly secondary to free water deficit, resolved Acute metabolic alkalosis secondary to diuresis, resolved History of COPD, presently under control and stable History of coronary artery disease, status post bypass surgery Chronic systolic heart failure with an ejection fraction of 30 to 35% along with moderate MR and mild to moderate pulm hypertension with a PA pressure of 32 History of diabetes mellitus History of hyperlipidemia History of hypertension History of fibromyalgia History of obstructive sleep apnea syndrome History of polysubstance abuse SVT, single episode, treated with adenosine resolved Plan: The patient was seen and evaluated Labs and medications reviewed Currently stable and on room air Continue on bronchodilators, prednisone taper Anticoagulated with Eliquis Awaiting subacute rehabilitation placement This patient was seen independently by the pulmonary nurse practitioner addressing pulmonary issues I have personally seen and examined the patient, performed the documentation and the assessment and plan as written. Number of minutes spent on the visit: 24.
[2023-12-30 11:54] LABS: Glucose,Whole Blood 98 mg/dL (70-110)
--- NOTE | 2023-12-30 14:17 | P.PN ---
Subjective Progress Note Date: 12/30/23 Principal diagnosis: Reason for follow-up is fever Patient is a 73-year-old female with a past medical history significant for diabetes mellitus hypertension hyperlipidemia fibromyalgia COPD coronary disease patient presenting to the hospital on 12/16/2023 for evaluation of chest congestion and cough and increasing shortness of breath, patient got reintubated and did spike a fever prompting this consultation. On today's visit that is 12/30/2023, patient has been afebrile, patient is breathing comfortably and is currently on room air, patient denies having any significant cough no chest pain shortness of breath, patient denies nausea vomiting or diarrhea and no abdominal pain No new labs obtained today cultures have been negative Objective - Vital Signs Vital signs: Vital Signs Temp 97.7 F 12/30/23 12:46 Pulse 66 12/30/23 12:46 Resp 16 12/30/23 12:46 BP 107/50 12/30/23 12:46 Pulse Ox 97 12/30/23 12:46 FiO2 35 12/24/23 21:00 Intake & Output 12/29/23 12/30/23 12/30/23 18:59 06:59 18:59 Intake Total 540 240 Output Total 1350 Balance -810 240 Weight 85.4 kg Intake: Oral 540 240 Output: Urine 1350 Other: Voiding Method Bedside Commode Bedside Commode External Catheter # Voids 1 1 1 # Bowel Movements 0 ABP, PAP, CO, CI - Last Documented Arterial Blood Pressure 104/64 - Exam GENERAL DESCRIPTION: An elderly female lying in bed in no distress RESPIRATORY SYSTEM: Unlabored breathing , decreased breath sounds at bases HEART: S1 S2 regular rate and rhythm , ABDOMEN: Soft , no tenderness EXTREMITIES: No edema feet - Labs CBC & Chem 7: 12/29/23 08:21 12/29/23 08:21 Labs: Abnormal Lab Results - Last 24 Hours (Table) 12/29/23 12/29/23 Range/Units 17:16 20:00 POC Glucose (mg/dL) 327 H 370 H (70-110) mg/dL Microbiology - Last 24 Hours (Table) 12/18/23 16:40 Fungal Culture - Preliminary Bronchoalviolar Lavage - Right Assessment and Plan (1) Allergy to multiple antibiotics Current Visit: No Status: Acute Code(s): Z88.1 - ALLERGY STATUS TO OTHER ANTIBIOTIC AGENTS SNOMED Code(s): 140077614 (2) Aspiration pneumonia Current Visit: No Status: Acute Code(s): J69.0 - PNEUMONITIS DUE TO INHALATION OF FOOD AND VOMIT SNOMED Code(s): 918867259 (3) Leukocytosis Current Visit: No Status: Acute Code(s): D72.829 - ELEVATED WHITE BLOOD CELL COUNT, UNSPECIFIED SNOMED Code(s): 576185809 Plan: 1patient with a fever and this patient presented to the hospital with increasing shortness of breath was intubated got extubated and has to be reintubated because of worsening respiratory status with a fever subsequently possible pulmonary source as the patient abdominal soft on clinical examination and no evidence of any cellulitis or joint swelling 2-patient blood and sputum culture has been negative 3patient white count is trending down as of 12/29/2023 which was down to 11.6 no CBC was done today, and did have a normal CRP and a procalcitonin at the same time patient is afebrile, patient will be monitored closely off antibiotic Dictation was produced using [employer] dictation software. please excuse any grammatical, word or spelling errors. Time with Patient: Less than 30
[2023-12-30 16:29] LABS: Glucose,Whole Blood 302 mg/dL (70-110)
[2023-12-30 19:59] LABS: Glucose,Whole Blood 384 mg/dL (70-110)
[2023-12-31 00:35] LABS: Glucose,Whole Blood 181 mg/dL (70-110)
[2023-12-31 05:01] LABS: Glucose,Whole Blood 209 mg/dL (70-110)
[2023-12-31 07:41] LABS: Anisocytosis Moderate; Basophils % (A) 0 %; Eosinophils # (A) 0.1 k/uL (0-0.7); Eosinophils % (A) 1 %; HCT 35.7 % (34.0-46.0); HGB 10.9 gm/dL (11.4-16.0); Hypochromasia Marked; Lymphocytes # (A) 1.8 k/uL (1.0-4.8); Lymphocytes % (A) 16 %; MCH 21.5 pg (25.0-35.0); MCHC 30.5 g/dL (31.0-37.0); MCV 70.4 fL (80.0-100.0); Mean Platelet Volume 9.3; Microcytosis Marked; Monocytes # (A) 0.4 k/uL (0-1.0); Monocytes % (A) 3 %; Neutrophils # (A) 9.1 k/uL (1.3-7.7); Neutrophils % (A) 79 %; Platelet Count 138 k/uL (150-450); RBC 5.07 m/uL (3.80-5.40); RDW 20.9 % (11.5-15.5); WBC 11.5 k/uL (3.8-10.6)
[2023-12-31 07:54] LABS: ALT 234 U/L (4-34); AST 33 U/L (14-36); African American GFR (CKD) >90 (>60 ml/min/1.73 sqM); Albumin 2.9 g/dL (3.5-5.0); Albumin/Globulin Ratio 1.3; Alkaline Phosphatase 86 U/L (38-126); Anion Gap 6 mmol/L; Blood Urea Nitrogen 18 mg/dL (7-17); Calcium 8.2 mg/dL (8.4-10.2); Carbon Dioxide 24 mmol/L (22-30); Chloride 104 mmol/L (98-107); Globulin 2.2 g/dL; Glucose 167 mg/dL (74-99); Non-African American GFR(CKD) >90 (>60 ml/min/1.73 sqM); Potassium 3.7 mmol/L (3.5-5.1); Sodium 134 mmol/L (137-145); Total Bilirubin 0.3 mg/dL (0.2-1.3); Total Protein 5.1 g/dL (6.3-8.2)
[2023-12-31 08:51] LABS: Glucose,Whole Blood 203 mg/dL (70-110)
--- NOTE | 2023-12-31 10:55 | P.PN ---
Subjective Progress Note Date: 12/31/23 Mari Moore, is a 73 year old female who presented to [facility] with a chief complaint of worsening shortness of breath. Patient reports she's had a nonproductive cough and generalized weakness and upper respiratory symptoms over the past few days. Patient has an extensive medical history including asthma, heart failure, COPD, coronary artery disease with previous history of CABG, diabetes mellitus, fibromyalgia, sleep apnea, ex- smoker and current marijuana user. Chest x-ray completed in ER showing no acute pulmonary infiltrate. Current vital signs showing temperature 97.6, heart rate 97, respiratory 18, blood pressure 98/49 with a pulse ox of 96% on room air patient testing negative for influenza RSV and COVID-19. UA negative. Troponins negative 2. BNP elevated at 2130. White blood cell within normal limits hemoglobin 8.9 at this time primary service is consulted. Will consult cardiology services in order 2-D echo. Iron studies ordered for anemia patient started on IV Solu-Medrol DuoNeb breathing treatments. At this time pulmonary and cardiology services consulted. Continue azithromycin for upper respiratory infection. Iron studies for low hemoglobin. On 12/18/2023 patient was seen and examined in the ICU her condition has worsened this morning, she was having severe continuous cough and shortness of breath, she had decrease in her O2 sat duration, she was transferred to intensive care unit, chest x-ray revealed significant worsening since x-ray done on 12/16/2023 with large right middle lobe and right lower lobe infiltrates, possibly related to aspiration. At this time patient is intubated, sedated started on mechanical ventilation, IV Zosyn was added to her medication regimen, pulmonary critical care following. On 12/19/2023 patient remains in the ICU on mechanical ventilation FiO2 40%. Patient remains on IV sedation. Levophed has been DC'd. Patient remains on IV steroids and IV antibiotics. Pulmonary and cardiology services following. ABGs this a.m. pH 7.36, pCO2 40, pO2 189, HCO3 23 and total CO2 24. On 12/20/2023 patient remains in the ICU on mechanical ventilation FiO2 30%. Liver enzymes trending down AST 222 ALT 390. ABGs this a.m. pH 7.40, pCO2 38, pO2 126 sodium bicarb 24. Patient remains on IV Zosyn and IV vancomycin. Patient [place]ot[place] on IV steroids. On 12/21/2023 patient was seen and examined in the ICU she is intubated sedated maintained on mechanical ventilation, vital exam of this morning reveals a temp erature of 99.4 heart rate 87 respiration 27 blood pressure 100/68 pulse ox 95% on FiO2 of 30% Arterial blood gas reveals pH 7.4 pCO2 39 CO2 94 liver enzymes remain elevated with ALT at 319 and AST at 222 patient is maintained on IV antibiotics Zosyn she also remains on pressure support. On 12/22/2023 patient was seen and examined in the ICU she is intubated sedated maintained on mechanical ventilation vital examination reveals a temperature of 99.4 pulse 92 respiration 20 blood pressure 106/69 pulse ox 97 percent on FiO2 of 30% she remains on assist control tidal volume 350 rate of 20 FiO2 30% and a PEEP of 5. Arterial blood gas reveals a pH of 7.44 pCO2 45 pO2 99 white blood count 5.3 hemoglobin 9.2 platelet count 213 BUN 49 creatinine 0.99 patient remains on pressure support with norepinephrine she remains on IV antibiotic Zosyn, pulmonary critical care, and cardiology are following. On 12/23/2023 patient was seen and examined in the ICU she is intubated sedated maintained on mechanical ventilation, vital exam reveals a temperature of 100.2, respiration 25 pulse 88 blood pressure 130/69 pulse ox 100% on FiO2 50% currently patient is back on assist control rate of 20 tidal volume 350 FiO2 50% with PEEP of 5 arterial blood gas reveals pH of 7.5 to pCO2 47 CO2 130 potassium is low at 2.5 and is being corrected. She is still having episodes of fever, she is maintained on IV Zosyn, repeat blood culture ordered, infectious disease consultation requested. On 12/24/2023 patient was seen and examined in the ICU she is intubated sedated maintained on mechanical ventilation, nursing is reporting that patient has not had a bowel movement for several days, otherwise patient seems to be stable. Vital exam reveals a temperature of 99.3 pulse 84 respiration 22 blood pressure 104/55 pulse ox is 100% on mechanical ventilation. At this time patient is maintained on assist control tidal volume 350 rate of 20 FiO2 40% with a PEEP of 5 arterial blood gas this morning reveals a pH of 7.43 pCO2 48 pO2 134 BUN is elevated at 51 creatinine 1.09 there is elevation in liver enzymes with AST at 139 and a LT at 560 On 12/25/2023 patient was seen and examined in the ICU she is alert and oriented 3 in no apparent distress she was extubated yesterday she is maintained on oxygen at 5 L via nasal cannula, she denies any complaints at this time there is no fever or chills no headache or dizziness no chest pain no shortness of breath no cough no nausea or vomiting no abdominal pain no diarrhea and no urinary symptoms vital examination reveals a temperature of 98 pulse 104 respiration 18 blood pressure 108/95 pulse ox 99% on 5 L nasal cannula, laboratory data reveals a white blood count of 8.0 hemoglobin 9.8 platelet count 125 BUN 39 creatinine 0.83 on 12/26/2023 patient remains in the intensive care unit alert and oriented 3. Patient currently on 2 L nasal cannula. Patient was started on amiodarone per cardiology. Current vital signs temp 97.6, heart rate 62, respiratory rate 19, blood pressure 107/65 pulse ox 99% on 2 L. On 12/27/2023 patient is alert and oriented 3. Liver enzymes slightly improving awaiting abdominal ultrasound. Current vital signs temp 98.5, heart rate 59, respiratory rate teens, blood pressure 124/77 with pulse ox 94% on room air. Anticipate possible discharge in the next 24-48 hours On 12/28/2023 patient alert and oriented 3. Patient is resting comfortably in bed. Patient denies chest pain or shortness breath. Patient denies nausea vomiting or diarrhea. Patient denies any urinary burning or frequency On 12/29/2023 patient alert and oriented 3. Case management following for discharge planning apparently grandson is attempting to get guardianship and patient DC'd the [facility] facility. Awaiting further plan. On 12/30/2023 patient was seen and examined on the medical floor, she is alert and oriented 3 in no apparent distress she denies any complaints at this time there is no fever or chills no headache or dizziness no chest pain no shortness of breath no cough no nausea or vomiting no abdominal pain no diarrhea and no urinary symptoms, awaiting discharge planning. On 12/31/2023 patient's alert and oriented 3. Patient denies chest pain or shortness breath. Patient denies nausea vomiting or diarrhea. Patient denies any urinary burning or frequency. Current vital signs temp 97.9, heart rate 70, respiratory 18, blood pressure 106/67 with a pulse ox 97% on room air Objective - Vital Signs Vital signs: Vital Signs Temp 97.9 F 12/31/23 07:24 Pulse 78 12/31/23 08:15 Resp 18 12/31/23 07:24 BP 106/67 12/31/23 07:24 Pulse Ox 95 12/31/23 07:54 FiO2 35 12/24/23 21:00 Intake & Output 12/30/23 12/31/23 12/31/23 17:59 06:59 18:59 Other: Voiding Method # Voids 1 # Bowel Movements 1 ABP, PAP, CO, CI - Last Documented Arterial Blood Pressure 104/64 - Exam In general patient is intubated sedated maintained on mechanical ventilation Head normocephalic and atraumatic Neck supple no JVD no goiter Lungs exam reveals coarse crackles bilaterally no wheezing Heart regular rate and rhythm S1-S2, no rub or gallop Abdomen is soft nontender nondistended positive bowel sounds no hepatosplenomegaly Extremities no edema Neuro no gross focal deficit - Labs CBC & Chem 7: 12/31/23 06:37 12/31/23 06:37 Labs: Abnormal Lab Results - Last 24 Hours (Table) 12/30/23 12/30/23 12/31/23 Range/Units 16:27 19:56 00:33 WBC (3.8-10.6) k/uL Hgb (11.4-16.0) gm/dL MCV (80.0-100.0) fL MCH (25.0-35.0) pg MCHC (31.0-37.0) g/dL RDW (11.5-15.5) % Plt Count (150-450) k/uL Neutrophils # (1.3-7.7) k/uL Sodium (137-145) mmol/L BUN (7-17) mg/dL Creatinine (0.52-1.04) mg/dL Glucose (74-99) mg/dL POC Glucose (mg/dL) 302 H 384 H 181 H (70-110) mg/dL Calcium (8.4-10.2) mg/dL ALT (4-34) U/L Total Protein (6.3-8.2) g/dL Albumin (3.5-5.0) g/dL 12/31/23 12/31/23 12/31/23 Range/Units 04:58 06:37 06:37 WBC 11.5 H (3.8-10.6) k/uL Hgb 10.9 L (11.4-16.0) gm/dL MCV 70.4 L (80.0-100.0) fL MCH 21.5 L (25.0-35.0) pg MCHC 30.5 L (31.0-37.0) g/dL RDW 20.9 H (11.5-15.5) % Plt Count 138 L (150-450) k/uL Neutrophils # 9.1 H (1.3-7.7) k/uL Sodium 134 L (137-145) mmol/L BUN 18 H (7-17) mg/dL Creatinine 0.48 L (0.52-1.04) mg/dL Glucose 167 H (74-99) mg/dL POC Glucose (mg/dL) 209 H (70-110) mg/dL Calcium 8.2 L (8.4-10.2) mg/dL ALT 234 H (4-34) U/L Total Protein 5.1 L (6.3-8.2) g/dL Albumin 2.9 L (3.5-5.0) g/dL 12/31/23 Range/Units 08:50 WBC (3.8-10.6) k/uL Hgb (11.4-16.0) gm/dL MCV (80.0-100.0) fL MCH (25.0-35.0) pg MCHC (31.0-37.0) g/dL RDW (11.5-15.5) % Plt Count (150-450) k/uL Neutrophils # (1.3-7.7) k/uL Sodium (137-145) mmol/L BUN (7-17) mg/dL Creatinine (0.52-1.04) mg/dL Glucose (74-99) mg/dL POC Glucose (mg/dL) 203 H (70-110) mg/dL Calcium (8.4-10.2) mg/dL ALT (4-34) U/L Total Protein (6.3-8.2) g/dL Albumin (3.5-5.0) g/dL Assessment and Plan Assessment: 1. Acute exacerbation of COPD. 2. Acute on chronic exacerbation of systolic CHF 3. Anemia. Iron studies ordered 4. Cardiomyopathy with an EF of 30-35% 5. History of non-STEMI September 2023 status post cardiac cath showing 80% stenosis of the stent patent 6. History of coronary artery disease disease status post CABG 7. History of diabetes mellitus type II 8. History of essential hypertension 9. History of hyperlipidemia. 10. Acute hypoxic respiratory failure requiring intubation and mechanical ventilation on 12/18/2023 11. Right middle lobe and right lower lobe infiltrates, suggestive of pneumonia, possible aspiration. 12. Dilated pancreatic duct seen on abdominal ultrasound patient will need follow-up with GI services DVT prophylaxis Lovenox. GI prophylaxis Protonix Cardiology and pulmonary service is consulted. Patient extubated Maintained on IV Zosyn Maintained on IV Solu-Medrol iron studies ordered
--- NOTE | 2023-12-31 11:38 | P.PN ---
Subjective Progress Note Date: 12/31/23 The patient is seen today December 30, 2023 in follow-up on the regular medical floor. She is currently sitting up in a chair. Awake and alert in no acute distress. Denies any worsening shortness of breath, cough or congestion. She is maintaining O2 saturations in the 90s on room air. Glucose 72. She is continued on DuoNeb ventilations, Pulmicort and performing scintillations, prednisone taper. Anticoagulated with Eliquis. Remains on oral diuretics. The patient seen today December 31, 2023 in follow-up on the regular medical floor. She is awake and alert in no acute distress. Sitting up in a chair at the bedside. Denies any shortness of breath, cough or congestion. Maintaining good O2 saturations in the 90s on room air. White count 11.5. Hemoglobin 10.9. Platelets 138. Sodium 134. Potassium 3.7. Bicarb 24. BUN 18. Creatinine 0.48. Glucose 167. She is continued on bronchodilators, prednisone taper. Remains on Eliquis for anticoagulation. Remains on oral diuretics. Remains in a negative balance. Objective - Vital Signs Vital signs: Vital Signs Temp 97.9 F 12/31/23 07:24 Pulse 78 12/31/23 08:15 Resp 18 12/31/23 07:24 BP 106/67 12/31/23 07:24 Pulse Ox 95 12/31/23 07:54 FiO2 35 12/24/23 21:00 Intake & Output 12/30/23 12/31/23 12/31/23 17:59 06:59 18:59 Other: Voiding Method # Voids 1 # Bowel Movements 1 ABP, PAP, CO, CI - Last Documented Arterial Blood Pressure 104/64 - Exam GENERAL EXAM: Alert, oriented 73-year-old female, on room air, comfortable in no apparent distress. HEAD: Normocephalic. EYES: Normal reaction of pupils, equal size. NOSE: Clear with pink turbinates. THROAT: No erythema or exudates. NECK: No masses, no JVD. CHEST: No chest wall deformity. LUNGS: Equal air entry with no crackles, wheeze, rhonchi or dullness. Diminished CVS: S1 and S2 normal with no audible murmur, regular rhythm. ABDOMEN: No hepatosplenomegaly, normal bowel sounds, no guarding or rigidity. SPINE: No scoliosis or deformity SKIN: No rashes CENTRAL NERVOUS SYSTEM: No focal deficits, tone is normal in all 4 extremities. EXTREMITIES: There is no peripheral edema. No clubbing, no cyanosis. Peripheral pulses are intact. - Labs CBC & Chem 7: 12/31/23 06:37 12/31/23 06:37 Labs: Abnormal Lab Results - Last 24 Hours (Table) 12/30/23 12/30/23 12/31/23 Range/Units 16:27 19:56 00:33 WBC (3.8-10.6) k/uL Hgb (11.4-16.0) gm/dL MCV (80.0-100.0) fL MCH (25.0-35.0) pg MCHC (31.0-37.0) g/dL RDW (11.5-15.5) % Plt Count (150-450) k/uL Neutrophils # (1.3-7.7) k/uL Sodium (137-145) mmol/L BUN (7-17) mg/dL Creatinine (0.52-1.04) mg/dL Glucose (74-99) mg/dL POC Glucose (mg/dL) 302 H 384 H 181 H (70-110) mg/dL Calcium (8.4-10.2) mg/dL ALT (4-34) U/L Total Protein (6.3-8.2) g/dL Albumin (3.5-5.0) g/dL 12/31/23 12/31/23 12/31/23 Range/Units 04:58 06:37 06:37 WBC 11.5 H (3.8-10.6) k/uL Hgb 10.9 L (11.4-16.0) gm/dL MCV 70.4 L (80.0-100.0) fL MCH 21.5 L (25.0-35.0) pg MCHC 30.5 L (31.0-37.0) g/dL RDW 20.9 H (11.5-15.5) % Plt Count 138 L (150-450) k/uL Neutrophils # 9.1 H (1.3-7.7) k/uL Sodium 134 L (137-145) mmol/L BUN 18 H (7-17) mg/dL Creatinine 0.48 L (0.52-1.04) mg/dL Glucose 167 H (74-99) mg/dL POC Glucose (mg/dL) 209 H (70-110) mg/dL Calcium 8.2 L (8.4-10.2) mg/dL ALT 234 H (4-34) U/L Total Protein 5.1 L (6.3-8.2) g/dL Albumin 2.9 L (3.5-5.0) g/dL 12/31/23 Range/Units 08:50 WBC (3.8-10.6) k/uL Hgb (11.4-16.0) gm/dL MCV (80.0-100.0) fL MCH (25.0-35.0) pg MCHC (31.0-37.0) g/dL RDW (11.5-15.5) % Plt Count (150-450) k/uL Neutrophils # (1.3-7.7) k/uL Sodium (137-145) mmol/L BUN (7-17) mg/dL Creatinine (0.52-1.04) mg/dL Glucose (74-99) mg/dL POC Glucose (mg/dL) 203 H (70-110) mg/dL Calcium (8.4-10.2) mg/dL ALT (4-34) U/L Total Protein (6.3-8.2) g/dL Albumin (3.5-5.0) g/dL Assessment and Plan Assessment: Acute hypoxic respiratory failure secondary to multifocal pneumonia, required intubation mechanical ventilation, extubated on 12/24/2023, recovered and on room air Acute hypernatremia, mostly secondary to free water deficit, resolved Acute metabolic alkalosis secondary to diuresis, resolved History of COPD, presently under control and stable History of coronary artery disease, status post bypass surgery Chronic systolic heart failure with an ejection fraction of 30 to 35% along with moderate MR and mild to moderate pulm hypertension with a PA pressure of 32 History of diabetes mellitus History of hyperlipidemia History of hypertension History of fibromyalgia History of obstructive sleep apnea syndrome History of polysubstance abuse SVT, single episode, treated with adenosine resolved Plan: The patient was seen and evaluated Labs and medications reviewed Currently stable and on room air Continue the current treatment plan Plan is for subacute rehabilitation at discharge This patient was seen independently by the pulmonary nurse practitioner addressing pulmonary issues I have personally seen and examined the patient, performed the documentation and the assessment and plan as written. Number of minutes spent on the visit: 22.
[2023-12-31 11:57] LABS: Glucose,Whole Blood 279 mg/dL (70-110)
[2023-12-31] MEDS: INSULIN ASPART (NovoLOG) 100 UNIT/ML VIAL SQ SCH (12:38)
--- NOTE | 2023-12-31 15:09 | P.PN ---
Subjective Progress Note Date: 12/31/23 Principal diagnosis: Reason for follow-up is fever Patient is a 73-year-old female with a past medical history significant for diabetes mellitus hypertension hyperlipidemia fibromyalgia COPD coronary disease patient presenting to the hospital on 12/16/2023 for evaluation of chest congestion and cough and increasing shortness of breath, patient got reintubated and did spike a fever prompting this consultation. On today's visit that is 12/31/2023,the patient denies any fever or any chills, patient is breathing comfortably on room air, the patient denies chest pain shortness of breath and no significant cough, patient denies abdominal pain, no nausea vomiting or diarrhea. No new symptoms. White count is 11.5 creatinine 0.48 Objective - Vital Signs Vital signs: Vital Signs Temp 97.7 F 12/31/23 13:05 Pulse 76 12/31/23 13:05 Resp 20 12/31/23 13:05 BP 95/50 12/31/23 13:05 Pulse Ox 94 L 12/31/23 13:05 FiO2 35 12/24/23 21:00 Intake & Output 12/30/23 12/31/23 12/31/23 17:59 06:59 18:59 Other: Voiding Method # Voids 1 # Bowel Movements 1 ABP, PAP, CO, CI - Last Documented Arterial Blood Pressure 104/64 - Exam GENERAL DESCRIPTION: An elderly female lying in bed in no distress RESPIRATORY SYSTEM: Unlabored breathing , decreased breath sounds at bases HEART: S1 S2 regular rate and rhythm , ABDOMEN: Soft , no tenderness EXTREMITIES: No edema feet - Labs CBC & Chem 7: 12/31/23 06:37 12/31/23 06:37 Labs: Abnormal Lab Results - Last 24 Hours (Table) 12/30/23 12/30/23 12/31/23 Range/Units 16:27 19:56 00:33 WBC (3.8-10.6) k/uL Hgb (11.4-16.0) gm/dL MCV (80.0-100.0) fL MCH (25.0-35.0) pg MCHC (31.0-37.0) g/dL RDW (11.5-15.5) % Plt Count (150-450) k/uL Neutrophils # (1.3-7.7) k/uL Sodium (137-145) mmol/L BUN (7-17) mg/dL Creatinine (0.52-1.04) mg/dL Glucose (74-99) mg/dL POC Glucose (mg/dL) 302 H 384 H 181 H (70-110) mg/dL Calcium (8.4-10.2) mg/dL ALT (4-34) U/L Total Protein (6.3-8.2) g/dL Albumin (3.5-5.0) g/dL 12/31/23 12/31/23 12/31/23 Range/Units 04:58 06:37 06:37 WBC 11.5 H (3.8-10.6) k/uL Hgb 10.9 L (11.4-16.0) gm/dL MCV 70.4 L (80.0-100.0) fL MCH 21.5 L (25.0-35.0) pg MCHC 30.5 L (31.0-37.0) g/dL RDW 20.9 H (11.5-15.5) % Plt Count 138 L (150-450) k/uL Neutrophils # 9.1 H (1.3-7.7) k/uL Sodium 134 L (137-145) mmol/L BUN 18 H (7-17) mg/dL Creatinine 0.48 L (0.52-1.04) mg/dL Glucose 167 H (74-99) mg/dL POC Glucose (mg/dL) 209 H (70-110) mg/dL Calcium 8.2 L (8.4-10.2) mg/dL ALT 234 H (4-34) U/L Total Protein 5.1 L (6.3-8.2) g/dL Albumin 2.9 L (3.5-5.0) g/dL 12/31/23 12/31/23 Range/Units 08:50 11:56 WBC (3.8-10.6) k/uL Hgb (11.4-16.0) gm/dL MCV (80.0-100.0) fL MCH (25.0-35.0) pg MCHC (31.0-37.0) g/dL RDW (11.5-15.5) % Plt Count (150-450) k/uL Neutrophils # (1.3-7.7) k/uL Sodium (137-145) mmol/L BUN (7-17) mg/dL Creatinine (0.52-1.04) mg/dL Glucose (74-99) mg/dL POC Glucose (mg/dL) 203 H 279 H (70-110) mg/dL Calcium (8.4-10.2) mg/dL ALT (4-34) U/L Total Protein (6.3-8.2) g/dL Albumin (3.5-5.0) g/dL Assessment and Plan (1) Allergy to multiple antibiotics Current Visit: No Status: Acute Code(s): Z88.1 - ALLERGY STATUS TO OTHER ANTIBIOTIC AGENTS SNOMED Code(s): 815063343 (2) Aspiration pneumonia Current Visit: No Status: Acute Code(s): J69.0 - PNEUMONITIS DUE TO INHALATION OF FOOD AND VOMIT SNOMED Code(s): 523572848 (3) Leukocytosis Current Visit: No Status: Acute Code(s): D72.829 - ELEVATED WHITE BLOOD CELL COUNT, UNSPECIFIED SNOMED Code(s): 857996064 Plan: 1patient with a fever and this patient presented to the hospital with increasing shortness of breath was intubated got extubated and has to be reintubated because of worsening respiratory status with a fever subsequently possible pulmonary source as the patient abdominal soft on clinical examination and no evidence of any cellulitis or joint swelling 2-patient blood and sputum culture has been negative 3patient did have improvement in her leukocytosis and also have a normal CRP and a procalcitonin and the patient remains to be afebrile will be monitored c losely off antibiotics Dictation was produced using [employer] dictation software. please excuse any gr ammatical, word or spelling errors. Time with Patient: Less than 30
[2023-12-31 17:15] LABS: Glucose,Whole Blood 313 mg/dL (70-110)
[2023-12-31 20:14] LABS: Glucose,Whole Blood 381 mg/dL (70-110)
[2024-01-01 08:14] LABS: Glucose,Whole Blood 89 mg/dL (70-110)
[2024-01-01] MEDS: PANTOPRAZOLE 40 MG TABLET PO SCH (09:13)
[2024-01-01 11:21] LABS: ALT 216 U/L (8-44); AST 23 U/L (13-35); Albumin 3.8 g/dL (3.8-4.9); Albumin/Globulin Ratio 1.65 Ratio (1.60-3.17); Alkaline Phosphatase 85 U/L (41-126); Blood Urea Nitrogen 16.6 mg/dL (9.0-27.0); Calcium 9.3 mg/dL (8.7-10.3); Carbon Dioxide 28.9 mmol/L (21.6-31.8); Chloride 102 mmol/L (96-109); Globulin 2.3 g/dL (1.6-3.3); Glucose 71 mg/dL (70-110); Potassium 3.6 mmol/L (3.5-5.5); Sodium 142 mmol/L (135-145); Total Bilirubin 0.3 mg/dL (0.3-1.2); Total Protein 6.1 g/dL (6.2-8.2)
[2024-01-01 12:03] LABS: INR 0.96 sec (0.93-1.11); Prothrombin Time 10.4 sec (9.9-11.9)
[2024-01-01 12:16] LABS: Glucose,Whole Blood 169 mg/dL (70-110)
--- NOTE | 2024-01-01 12:40 | P.PN ---
Subjective Progress Note Date: 01/01/24 Principal diagnosis: Reason for follow-up is fever Patient is a 73-year-old female with a past medical history significant for diabetes mellitus hypertension hyperlipidemia fibromyalgia COPD coronary disease patient presenting to the hospital on 12/16/2023 for evaluation of chest congestion and cough and increasing shortness of breath, patient got reintubated and did spike a fever prompting this consultation. On today's visit that is 01/01/2024,the patient remains to be afebrile, patient is on room air not requiring supplemental oxygen and denies any shortness of breath no chest pain or cough.Patient denies having any nausea or vomiting, no abdominal pain and no diarrhea has been reported Patient did have a creatinine of 0.5 electrolytes normal no CBC Objective - Vital Signs Vital signs: Vital Signs Temp 98.0 F 01/01/24 08:16 Pulse 66 01/01/24 11:32 Resp 17 01/01/24 08:16 BP 122/73 01/01/24 08:16 Pulse Ox 94 L 01/01/24 08:16 FiO2 35 12/24/23 21:00 Intake & Output 12/31/23 01/01/24 01/01/24 18:59 06:59 18:59 Intake Total 240 Balance 240 Weight 85.4 kg Intake: Oral 240 Other: Voiding Method Bedside Commode # Voids 2 3 # Bowel Movements 1 1 ABP, PAP, CO, CI - Last Documented Arterial Blood Pressure 104/64 - Exam GENERAL DESCRIPTION: An elderly female lying in bed in no distress RESPIRATORY SYSTEM: Unlabored breathing , decreased breath sounds at bases HEART: S1 S2 regular rate and rhythm , ABDOMEN: Soft , no tenderness EXTREMITIES: No edema feet - Labs CBC & Chem 7: 12/31/23 06:37 01/01/24 05:50 Labs: Abnormal Lab Results - Last 24 Hours (Table) 12/31/23 12/31/23 01/01/24 Range/Units 17:14 20:13 05:50 Creatinine 0.5 L (0.6-1.5) mg/dL BUN/Creatinine Ratio 33.20 H (12.00-20.00) Ratio POC Glucose (mg/dL) 313 H 381 H (70-110) mg/dL ALT 216 H (8-44) U/L Total Protein 6.1 L (6.2-8.2) g/dL 01/01/24 Range/Units 12:15 Creatinine (0.6-1.5) mg/dL BUN/Creatinine Ratio (12.00-20.00) Ratio POC Glucose (mg/dL) 169 H (70-110) mg/dL ALT (8-44) U/L Total Protein (6.2-8.2) g/dL Assessment and Plan (1) Allergy to multiple antibiotics Current Visit: No Status: Acute Code(s): Z88.1 - ALLERGY STATUS TO OTHER ANTIBIOTIC AGENTS SNOMED Code(s): 303002103 (2) Aspiration pneumonia Current Visit: No Status: Acute Code(s): J69.0 - PNEUMONITIS DUE TO INHALATION OF FOOD AND VOMIT SNOMED Code(s): 451427978 (3) Leukocytosis Current Visit: No Status: Acute Code(s): D72.829 - ELEVATED WHITE BLOOD CELL COUNT, UNSPECIFIED SNOMED Code(s): 867117871 Plan: 1patient with a fever and this patient presented to the hospital with increa sing shortness of breath was intubated got extubated and has to be reintubated because of worsening respiratory status with a fever subsequently possible pulmonary source as the patient abdominal soft on clinical examination and no evidence of any cellulitis or joint swelling 2-patient blood and sputum culture has been negative 3patient did have improvement in her leukocytosis as of yesterday no CBC was done today and also have a normal CRP and a procalcitonin and the patient remains to be afebrile, no need for antibiotic on discharge Dictation was produced using [employer] dictation software. please excuse any grammatical, word or spelling errors. Time with Patient: Less than 30
--- NOTE | 2024-01-01 13:10 | P.PN ---
Subjective Progress Note Date: 01/01/24 The patient is seen today December 30, 2023 in follow-up on the regular medical floor. She is currently sitting up in a chair. Awake and alert in no acute distress. Denies any worsening shortness of breath, cough or congestion. She is maintaining O2 saturations in the 90s on room air. Glucose 72. She is continued on DuoNeb ventilations, Pulmicort and performing scintillations, prednisone taper. Anticoagulated with Eliquis. Remains on oral diuretics. The patient seen today December 31, 2023 in follow-up on the regular medical floor. She is awake and alert in no acute distress. Sitting up in a chair at the bedside. Denies any shortness of breath, cough or congestion. Maintaining good O2 saturations in the 90s on room air. White count 11.5. Hemoglobin 10.9. Platelets 138. Sodium 134. Potassium 3.7. Bicarb 24. BUN 18. Creatinine 0.48. Glucose 167. She is continued on bronchodilators, prednisone taper. Remains on Eliquis for anticoagulation. Remains on oral diuretics. Remains in a negative balance. The patient is seen today January 01, 2024 in follow-up on the regular medical floor. She is sitting up in a chair at the bedside. Awake and alert in no acute distress. Denies any shortness of breath, cough or congestion. No fever or chills. Maintaining good O2 saturations in the 90s on room air. No IV fluids. She remains on bronchodilators, prednisone taper. Anticoagulated with Eliquis. Remains on oral diuretics. Sodium 142. Potassium 3.6. Bicarb 29. BUN 17. Creatinine 0.5. Glucose 71. Objective - Vital Signs Vital signs: Vital Signs Temp 98.0 F 01/01/24 08:16 Pulse 66 01/01/24 11:32 Resp 17 01/01/24 08:16 BP 122/73 01/01/24 08:16 Pulse Ox 94 L 01/01/24 08:16 FiO2 35 12/24/23 21:00 Intake & Output 12/31/23 01/01/24 01/01/24 18:59 06:59 18:59 Intake Total 240 Balance 240 Weight 85.4 kg Intake: Oral 240 Other: Voiding Method Bedside Commode # Voids 2 3 # Bowel Movements 1 1 ABP, PAP, CO, CI - Last Documented Arterial Blood Pressure 104/64 - Exam GENERAL EXAM: Alert, 73-year-old female, on room air, up in a chair, in no apparent distress. HEAD: Normocephalic. EYES: Normal reaction of pupils, equal size. NOSE: Clear with pink turbinates. THROAT: No erythema or exudates. NECK: No masses, no JVD. CHEST: No chest wall deformity. LUNGS: Equal air entry with no crackles, wheeze, rhonchi or dullness. Diminished CVS: S1 and S2 normal with no audible murmur, regular rhythm. ABDOMEN: No hepatosplenomegaly, normal bowel sounds, no guarding or rigidity. SPINE: No scoliosis or deformity SKIN: No rashes CENTRAL NERVOUS SYSTEM: No focal deficits, tone is normal in all 4 extremities. EXTREMITIES: There is no peripheral edema. No clubbing, no cyanosis. Peripheral pulses are intact. - Labs CBC & Chem 7: 12/31/23 06:37 01/01/24 05:50 Labs: Abnormal Lab Results - Last 24 Hours (Table) 12/31/23 12/31/23 01/01/24 Range/Units 17:14 20:13 05:50 Creatinine 0.5 L (0.6-1.5) mg/dL BUN/Creatinine Ratio 33.20 H (12.00-20.00) Ratio POC Glucose (mg/dL) 313 H 381 H (70-110) mg/dL ALT 216 H (8-44) U/L Total Protein 6.1 L (6.2-8.2) g/dL 01/01/24 Range/Units 12:15 Creatinine (0.6-1.5) mg/dL BUN/Creatinine Ratio (12.00-20.00) Ratio POC Glucose (mg/dL) 169 H (70-110) mg/dL ALT (8-44) U/L Total Protein (6.2-8.2) g/dL Assessment and Plan Assessment: Acute hypoxic respiratory failure secondary to multifocal pneumonia, required intubation mechanical ventilation, extubated on 12/24/2023, recovered and on room air Acute hypernatremia, mostly secondary to free water deficit, resolved Acute metabolic alkalosis secondary to diuresis, resolved History of COPD, presently under control and stable History of coronary artery disease, status post bypass surgery Chronic systolic heart failure with an ejection fraction of 30 to 35% along with moderate MR and mild to moderate pulm hypertension with a PA pressure of 32 History of diabetes mellitus History of hyperlipidemia History of hypertension History of fibromyalgia History of obstructive sleep apnea syndrome History of polysubstance abuse SVT, single episode, treated with adenosine resolved Plan: The patient was seen and evaluated Labs and medications reviewed Currently stable and on room air Continue the current treatment plan Cleared for discharge from the pulmonary standpoint Plan is for subacute rehabilitation at discharge I have personally seen and examined the patient, performed the documentation and the assessment and plan as written. Number of minutes spent on the visit: 10.
[2024-01-01 17:20] LABS: Glucose,Whole Blood 424 mg/dL (70-110)
--- NOTE | 2024-01-01 17:39 | P.PN ---
Subjective Progress Note Date: 01/01/24 Mari Moore, is a 73 year old female who presented to [facility] with a chief complaint of worsening shortness of breath. Patient reports she's had a nonproductive cough and generalized weakness and upper respiratory symptoms over the past few days. Patient has an extensive medical history including asthma, heart failure, COPD, coronary artery disease with previous history of CABG, diabetes mellitus, fibromyalgia, sleep apnea, ex- smoker and current marijuana user. Chest x-ray completed in ER showing no acute pulmonary infiltrate. Current vital signs showing temperature 97.6, heart rate 97, respiratory 18, blood pressure 98/49 with a pulse ox of 96% on room air patient testing negative for influenza RSV and COVID-19. UA negative. Troponins negative 2. BNP elevated at 2130. White blood cell within normal limits hemoglobin 8.9 at this time primary service is consulted. Will consult cardiology services in order 2-D echo. Iron studies ordered for anemia patient started on IV Solu-Medrol DuoNeb breathing treatments. At this time pulmonary and cardiology services consulted. Continue azithromycin for upper respiratory infection. Iron studies for low hemoglobin. On 12/18/2023 patient was seen and examined in the ICU her condition has worsened this morning, she was having severe continuous cough and shortness of breath, she had decrease in her O2 sat duration, she was transferred to intensive care unit, chest x-ray revealed significant worsening since x-ray done on 12/16/2023 with large right middle lobe and right lower lobe infiltrates, possibly related to aspiration. At this time patient is intubated, sedated started on mechanical ventilation, IV Zosyn was added to her medication regimen, pulmonary critical care following. On 12/19/2023 patient remains in the ICU on mechanical ventilation FiO2 40%. Patient remains on IV sedation. Levophed has been DC'd. Patient remains on IV steroids and IV antibiotics. Pulmonary and cardiology services following. ABGs this a.m. pH 7.36, pCO2 40, pO2 189, HCO3 23 and total CO2 24. On 12/20/2023 patient remains in the ICU on mechanical ventilation FiO2 30%. Liver enzymes trending down AST 222 ALT 390. ABGs this a.m. pH 7.40, pCO2 38, pO2 126 sodium bicarb 24. Patient remains on IV Zosyn and IV vancomycin. Patient [place] on IV steroids. On 12/21/2023 patient was seen and examined in the ICU she is intubated sedated maintained on mechanical ventilation, vital exam of this morning reveals a temp erature of 99.4 heart rate 87 respiration 27 blood pressure 100/68 pulse ox 95% on FiO2 of 30% Arterial blood gas reveals pH 7.4 pCO2 39 CO2 94 liver enzymes remain elevated with ALT at 319 and AST at 222 patient is maintained on IV antibiotics Zosyn she also remains on pressure support. On 12/22/2023 patient was seen and examined in the ICU she is intubated sedated maintained on mechanical ventilation vital examination reveals a temperature of 99.4 pulse 92 respiration 20 blood pressure 106/69 pulse ox 97 percent on FiO2 of 30% she remains on assist control tidal volume 350 rate of 20 FiO2 30% and a PEEP of 5. Arterial blood gas reveals a pH of 7.44 pCO2 45 pO2 99 white blood count 5.3 hemoglobin 9.2 platelet count 213 BUN 49 creatinine 0.99 patient remains on pressure support with norepinephrine she remains on IV antibiotic Zosyn, pulmonary critical care, and cardiology are following. On 12/23/2023 patient was seen and examined in the ICU she is intubated sedated maintained on mechanical ventilation, vital exam reveals a temperature of 100.2, respiration 25 pulse 88 blood pressure 130/69 pulse ox 100% on FiO2 50% currently patient is back on assist control rate of 20 tidal volume 350 FiO2 50% with PEEP of 5 arterial blood gas reveals pH of 7.5 to pCO2 47 CO2 130 potassium is low at 2.5 and is being corrected. She is still having episodes of fever, she is maintained on IV Zosyn, repeat blood culture ordered, infectious disease consultation requested. On 12/24/2023 patient was seen and examined in the ICU she is intubated sedated maintained on mechanical ventilation, nursing is reporting that patient has not had a bowel movement for several days, otherwise patient seems to be stable. Vital exam reveals a temperature of 99.3 pulse 84 respiration 22 blood pressure 104/55 pulse ox is 100% on mechanical ventilation. At this time patient is maintained on assist control tidal volume 350 rate of 20 FiO2 40% with a PEEP of 5 arterial blood gas this morning reveals a pH of 7.43 pCO2 48 pO2 134 BUN is elevated at 51 creatinine 1.09 there is elevation in liver enzymes with AST at 139 and a LT at 560 On 12/25/2023 patient was seen and examined in the ICU she is alert and oriented 3 in no apparent distress she was extubated yesterday she is maintained on oxygen at 5 L via nasal cannula, she denies any complaints at this time there is no fever or chills no headache or dizziness no chest pain no shortness of breath no cough no nausea or vomiting no abdominal pain no diarrhea and no urinary symptoms vital examination reveals a temperature of 98 pulse 104 respiration 18 blood pressure 108/95 pulse ox 99% on 5 L nasal cannula, laboratory data reveals a white blood count of 8.0 hemoglobin 9.8 platelet count 125 BUN 39 creatinine 0.83 on 12/26/2023 patient remains in the intensive care unit alert and oriented 3. Patient currently on 2 L nasal cannula. Patient was started on amiodarone per cardiology. Current vital signs temp 97.6, heart rate 62, respiratory rate 19, blood pressure 107/65 pulse ox 99% on 2 L. On 12/27/2023 patient is alert and oriented 3. Liver enzymes slightly improving awaiting abdominal ultrasound. Current vital signs temp 98.5, heart rate 59, respiratory rate teens, blood pressure 124/77 with pulse ox 94% on room air. Anticipate possible discharge in the next 24-48 hours On 12/28/2023 patient alert and oriented 3. Patient is resting comfortably in bed. Patient denies chest pain or shortness breath. Patient denies nausea vomiting or diarrhea. Patient denies any urinary burning or frequency On 12/29/2023 patient alert and oriented 3. Case management following for discharge planning apparently grandson is attempting to get guardianship and [facility]. Awaiting further plan. On 12/30/2023 patient was seen and examined on the medical floor, she is alert and oriented 3 in no apparent distress she denies any complaints at this time there is no fever or chills no headache or dizziness no chest pain no shortness of breath no cough no nausea or vomiting no abdominal pain no diarrhea and no urinary symptoms, awaiting discharge planning. On 12/31/2023 patient's alert and oriented 3. Patient denies chest pain or shortness breath. Patient denies nausea vomiting or diarrhea. Patient denies any urinary burning or frequency. Current vital signs temp 97.9, heart rate 70, respiratory 18, blood pressure 106/67 with a pulse ox 97% on room air On 01/01/2024 patient was seen and examined on the medical floor she is alert and oriented 3 in no apparent distress she is complaining of generalized weakness otherwise she denies any complaints there is no fever or chills no headache or dizziness no chest pain no shortness of breath no cough no nausea or vomiting no abdominal pain no diarrhea and no urinary symptoms. Possible transfer to rehab tomorrow. Objective - Vital Signs Vital signs: Vital Signs Temp 97.7 F 01/01/24 11:51 Pulse 75 01/01/24 15:15 Resp 18 01/01/24 11:51 BP 95/63 01/01/24 11:51 Pulse Ox 96 01/01/24 11:51 FiO2 35 12/24/23 21:00 Intake & Output 12/31/23 01/01/24 01/01/24 18:59 06:59 18:59 Intake Total 240 Balance 240 Weight 85.4 kg Intake: Oral 240 Other: Voiding Method Bedside Commode # Voids 2 3 # Bowel Movements 1 1 ABP, PAP, CO, CI - Last Documented Arterial Blood Pressure 104/64 - Exam In general patient is intubated sedated maintained on mechanical ventilation Head normocephalic and atraumatic Neck supple no JVD no goiter Lungs exam reveals coarse crackles bilaterally no wheezing Heart regular rate and rhythm S1-S2, no rub or gallop Abdomen is soft nontender nondistended positive bowel sounds no hepatosplenomegaly Extremities no edema Neuro no gross focal deficit - Labs CBC & Chem 7: 12/31/23 06:37 01/01/24 05:50 Labs: Abnormal Lab Results - Last 24 Hours (Table) 12/31/23 12/31/23 01/01/24 Range/Units 17:14 20:13 05:50 Creatinine 0.5 L (0.6-1.5) mg/dL BUN/Creatinine Ratio 33.20 H (12.00-20.00) Ratio POC Glucose (mg/dL) 313 H 381 H (70-110) mg/dL ALT 216 H (8-44) U/L Total Protein 6.1 L (6.2-8.2) g/dL 01/01/24 Range/Units 12:15 Creatinine (0.6-1.5) mg/dL BUN/Creatinine Ratio (12.00-20.00) Ratio POC Glucose (mg/dL) 169 H (70-110) mg/dL ALT (8-44) U/L Total Protein (6.2-8.2) g/dL Assessment and Plan Assessment: 1. Acute exacerbation of COPD. 2. Acute on chronic exacerbation of systolic CHF 3. Anemia. Iron studies ordered 4. Cardiomyopathy with an EF of 30-35% 5. History of non-STEMI September 2023 status post cardiac cath showing 80% stenosis of the stent patent 6. History of coronary artery disease disease status post CABG 7. History of diabetes mellitus type II 8. History of essential hypertension 9. History of hyperlipidemia. 10. Acute hypoxic respiratory failure requiring intubation and mechanical ventilation on 12/18/2023 11. Right middle lobe and right lower lobe infiltrates, suggestive of pneumonia, possible aspiration. 12. Dilated pancreatic duct seen on abdominal ultrasound patient will need follow-up with GI services DVT prophylaxis Lovenox. GI prophylaxis Protonix Cardiology and pulmonary service is consulted. Patient extubated Maintained on IV Zosyn Maintained on IV Solu-Medrol iron studies ordered
[2024-01-01] MEDS: SYMBICORT 160-4.5 MCG INHALER INHALATION SCH (20:12)
[2024-01-01 20:27] LABS: Glucose,Whole Blood 272 mg/dL (70-110)
[2024-01-02 07:29] LABS: Glucose,Whole Blood 85 mg/dL (70-110)
--- NOTE | 2024-01-02 08:55 | P.PN ---
Subjective Progress Note Date: 01/02/24 Mari Moore, is a 73 year old female who presented to [facility] with a chief complaint of worsening shortness of breath. Patient reports she's had a nonproductive cough and generalized weakness and upper respiratory symptoms over the past few days. Patient has an extensive medical history including asthma, heart failure, COPD, coronary artery disease with previous history of CABG, diabetes mellitus, fibromyalgia, sleep apnea, ex- smoker and current marijuana user. Chest x-ray completed in ER showing no acute pulmonary infiltrate. Current vital signs showing temperature 97.6, heart rate 97, respiratory 18, blood pressure 98/49 with a pulse ox of 96% on room air patient testing negative for influenza RSV and COVID-19. UA negative. Troponins negative 2. BNP elevated at 2130. White blood cell within normal limits hemoglobin 8.9 at this time primary service is consulted. Will consult cardiology services in order 2-D echo. Iron studies ordered for anemia patient started on IV Solu-Medrol DuoNeb breathing treatments. At this time pulmonary and cardiology services consulted. Continue azithromycin for upper respiratory infection. Iron studies for low hemoglobin. On 12/18/2023 patient was seen and examined in the ICU her condition has worsened this morning, she was having severe continuous cough and shortness of breath, she had decrease in her O2 sat duration, she was transferred to intensive care unit, chest x-ray revealed significant worsening since x-ray done on 12/16/2023 with large right middle lobe and right lower lobe infiltrates, possibly related to aspiration. At this time patient is intubated, sedated started on mechanical ventilation, IV Zosyn was added to her medication regimen, pulmonary critical care following. On 12/19/2023 patient remains in the ICU on mechanical ventilation FiO2 40%. Patient remains on IV sedation. Levophed has been DC'd. Patient remains on IV steroids and IV antibiotics. Pulmonary and cardiology services following. ABGs this a.m. pH 7.36, pCO2 40, pO2 189, HCO3 23 and total CO2 24. On 12/20/2023 patient remains in the ICU on mechanical ventilation FiO2 30%. Liver enzymes trending down AST 222 ALT 390. ABGs this a.m. pH 7.40, pCO2 38, pO2 126 sodium bicarb 24. Patient remains on IV Zosyn and IV vancomycin. Patient [place]akotah on IV steroids On 12/21/2023 patient was seen and examined in the ICU she is intubated sedated maintained on mechanical ventilation, vital exam of this morning reveals a tem perature of 99.4 heart rate 87 respiration 27 blood pressure 100/68 pulse ox 95% on FiO2 of 30% Arterial blood gas reveals pH 7.4 pCO2 39 CO2 94 liver enzymes remain elevated with ALT at 319 and AST at 222 patient is maintained on IV antibiotics Zosyn she also remains on pressure support. On 12/22/2023 patient was seen and examined in the ICU she is intubated sedated maintained on mechanical ventilation vital examination reveals a temperature of 99.4 pulse 92 respiration 20 blood pressure 106/69 pulse ox 97 percent on FiO2 of 30% she remains on assist control tidal volume 350 rate of 20 FiO2 30% and a PEEP of 5. Arterial blood gas reveals a pH of 7.44 pCO2 45 pO2 99 white blood count 5.3 hemoglobin 9.2 platelet count 213 BUN 49 creatinine 0.99 patient remains on pressure support with norepinephrine she remains on IV antibiotic Zosyn, pulmonary critical care, and cardiology are following. On 12/23/2023 patient was seen and examined in the ICU she is intubated sedated maintained on mechanical ventilation, vital exam reveals a temperature of 100.2, respiration 25 pulse 88 blood pressure 130/69 pulse ox 100% on FiO2 50% currently patient is back on assist control rate of 20 tidal volume 350 FiO2 50% with PEEP of 5 arterial blood gas reveals pH of 7.5 to pCO2 47 CO2 130 potassium is low at 2.5 and is being corrected. She is still having episodes of fever, she is maintained on IV Zosyn, repeat blood culture ordered, infectious disease consultation requested. On 12/24/2023 patient was seen and examined in the ICU she is intubated sedated maintained on mechanical ventilation, nursing is reporting that patient has not had a bowel movement for several days, otherwise patient seems to be stable. Vital exam reveals a temperature of 99.3 pulse 84 respiration 22 blood pressure 104/55 pulse ox is 100% on mechanical ventilation. At this time patient is maintained on assist control tidal volume 350 rate of 20 FiO2 40% with a PEEP of 5 arterial blood gas this morning reveals a pH of 7.43 pCO2 48 pO2 134 BUN is elevated at 51 creatinine 1.09 there is elevation in liver enzymes with AST at 139 and a LT at 560 On 12/25/2023 patient was seen and examined in the ICU she is alert and oriented 3 in no apparent distress she was extubated yesterday she is maintained on oxygen at 5 L via nasal cannula, she denies any complaints at this time there is no fever or chills no headache or dizziness no chest pain no shortness of breath no cough no nausea or vomiting no abdominal pain no diarrhea and no urinary symptoms vital examination reveals a temperature of 98 pulse 104 respiration 18 blood pressure 108/95 pulse ox 99% on 5 L nasal cannula, laboratory data reveals a white blood count of 8.0 hemoglobin 9.8 platelet count 125 BUN 39 creatinine 0.83 on 12/26/2023 patient remains in the intensive care unit alert and oriented 3. Patient currently on 2 L nasal cannula. Patient was started on amiodarone per cardiology. Current vital signs temp 97.6, heart rate 62, respiratory rate 19, blood pressure 107/65 pulse ox 99% on 2 L. On 12/27/2023 patient is alert and oriented 3. Liver enzymes slightly improving awaiting abdominal ultrasound. Current vital signs temp 98.5, heart rate 59, respiratory rate teens, blood pressure 124/77 with pulse ox 94% on room air. Anticipate possible discharge in the next 24-48 hours On 12/28/2023 patient alert and oriented 3. Patient is resting comfortably in bed. Patient denies chest pain or shortness breath. Patient denies nausea vomiting or diarrhea. Patient denies any urinary burning or frequency On 12/29/2023 patient alert and oriented 3. Case management following for discharge planning apparently grandson is attempting to get guardianship and patient DC'd the [facility] facility. Awaiting further plan. On 12/30/2023 patient was seen and examined on the medical floor, she is alert and oriented 3 in no apparent distress she denies any complaints at this time there is no fever or chills no headache or dizziness no chest pain no shortness of breath no cough no nausea or vomiting no abdominal pain no diarrhea and no urinary symptoms, awaiting discharge planning. On 12/31/2023 patient's alert and oriented 3. Patient denies chest pain or shortness breath. Patient denies nausea vomiting or diarrhea. Patient denies any urinary burning or frequency. Current vital signs temp 97.9, heart rate 70, respiratory 18, blood pressure 106/67 with a pulse ox 97% on room air On 01/01/2024 patient was seen and examined on the medical floor she is alert and oriented 3 in no apparent distress she is complaining of generalized weakness otherwise she denies any complaints there is no fever or chills no headache or dizziness no chest pain no shortness of breath no cough no nausea or vomiting no abdominal pain no diarrhea and no urinary symptoms. Possible transfer to rehab tomorrow. On 01/02/2024 patient's alert and oriented 3. Patient is still adamant that she wants to go home according to social work notes her grandson guardianship hearing except for Monday01/02/24 for discharge planning to [facility] facility [facility]. Current vital signs temp 97.5, heart rate 76, respiratory rate 16, blood pressure 97/47 pulse ox 94% on room air Objective - Vital Signs Vital signs: Vital Signs Temp 97.5 F L 01/02/24 07:15 Pulse 80 01/02/24 08:04 Resp 16 01/02/24 07:15 BP 97/47 01/02/24 07:15 Pulse Ox 94 L 01/02/24 07:54 FiO2 35 12/24/23 21:00 Intake & Output 01/01/24 01/02/24 01/02/24 18:59 06:59 18:59 Intake Total 240 Balance 240 Weight 85.4 kg Intake: Oral 240 Other: Voiding Method Bedside Commode # Voids 2 3 ABP, PAP, CO, CI - Last Documented Arterial Blood Pressure 104/64 - Exam In general patient is intubated sedated maintained on mechanical ventilation Head normocephalic and atraumatic Neck supple no JVD no goiter Lungs exam reveals coarse crackles bilaterally no wheezing Heart regular rate and rhythm S1-S2, no rub or gallop Abdomen is soft nontender nondistended positive bowel sounds no hepatosplenomegaly Extremities no edema Neuro no gross focal deficit - Labs CBC & Chem 7: 12/31/23 06:37 01/01/24 05:50 Labs: Abnormal Lab Results - Last 24 Hours (Table) 01/01/24 01/01/24 01/01/24 Range/Units 05:50 12:15 17:18 Creatinine 0.5 L (0.6-1.5) mg/dL BUN/Creatinine Ratio 33.20 H (12.00-20.00) Ratio POC Glucose (mg/dL) 169 H 424 H (70-110) mg/dL ALT 216 H (8-44) U/L Total Protein 6.1 L (6.2-8.2) g/dL 01/01/24 Range/Units 20:25 Creatinine (0.6-1.5) mg/dL BUN/Creatinine Ratio (12.00-20.00) Ratio POC Glucose (mg/dL) 272 H (70-110) mg/dL ALT (8-44) U/L Total Protein (6.2-8.2) g/dL Assessment and Plan Assessment: 1. Acute exacerbation of COPD. 2. Acute on chronic exacerbation of systolic CHF 3. Anemia. Iron studies ordered 4. Cardiomyopathy with an EF of 30-35% 5. History of non-STEMI September 2023 status post cardiac cath showing 80% stenosis of the stent patent 6. History of coronary artery disease disease status post CABG 7. History of diabetes mellitus type II 8. History of essential hypertension 9. History of hyperlipidemia. 10. Acute hypoxic respiratory failure requiring intubation and mechanical ventilation on 12/18/2023 11. Right middle lobe and right lower lobe infiltrates, suggestive of pneumonia, possible aspiration. 12. Dilated pancreatic duct seen on abdominal ultrasound patient will need follow-up with GI services DVT prophylaxis Lovenox. GI prophylaxis Protonix Cardiology and pulmonary service is consulted. Patient extubated Maintained on IV Zosyn Maintained on IV Solu-Medrol iron studies ordered
[2024-01-02 11:25] LABS: ALT 153 U/L (8-44); AST 27 U/L (13-35); Albumin 3.5 g/dL (3.8-4.9); Albumin/Globulin Ratio 1.67 Ratio (1.60-3.17); Alkaline Phosphatase 85 U/L (41-126); BUN/Creat Ratio 34.83 Ratio (12.00-20.00); Blood Urea Nitrogen 20.9 mg/dL (9.0-27.0); Calcium 8.9 mg/dL (8.7-10.3); Carbon Dioxide 29.5 mmol/L (21.6-31.8); Chloride 101 mmol/L (96-109); Globulin 2.1 g/dL (1.6-3.3); Glucose 76 mg/dL (70-110); Potassium 4.1 mmol/L (3.5-5.5); Sodium 140 mmol/L (135-145); Total Bilirubin 0.3 mg/dL (0.3-1.2); Total Protein 5.6 g/dL (6.2-8.2)
[2024-01-02 11:48] LABS: HCT 37.4 % (37.2-46.3); HGB 10.7 g/dL (12.0-15.0); MCH 20.3 pg (27.0-32.0); MCHC 28.6 g/dL (32.0-37.0); MCV 70.8 FL (80.0-97.0); NRBC Per 100 WBC 0 X 10*3/uL (0.00-0.01); Platelet Count 181 X 10*3/uL (140-440); RBC 5.28 X 10*6/uL (4.10-5.20); RDW 23.9 % (11.5-14.5); WBC 8.98 X 10*3/uL (4.50-10.00)
[2024-01-02 11:49] LABS: Acanthocytes 2+; Anisocytosis (M) 2+; Basophils # (A) 0.01 X 10*3/uL (0.00-0.10); Basophils % (A) 0.1 %; Elliptocytes 2+; Eosinophils # (A) 0.03 X 10*3/uL (0.04-0.35); Eosinophils % (A) 0.3 %; Lymphocytes % (A) 22.3 %; Microcytosis (M) 3+; Monocytes # (A) 0.46 X 10*3/uL (0.20-1.00); Monocytes % (A) 5.1 %; Neutrophils # (A) 6.45 X 10*3/uL (1.80-7.70); Neutrophils % (A) 71.9 %; Schistocytes 1+
[2024-01-02 12:03] LABS: Glucose,Whole Blood 155 mg/dL (70-110)
--- NOTE | 2024-01-02 12:21 | P.PN ---
Subjective Progress Note Date: 01/02/24 The patient is seen today December 30, 2023 in follow-up on the regular medical floor. She is currently sitting up in a chair. Awake and alert in no acute distress. Denies any worsening shortness of breath, cough or congestion. She is maintaining O2 saturations in the 90s on room air. Glucose 72. She is continued on DuoNeb ventilations, Pulmicort and performing scintillations, prednisone taper. Anticoagulated with Eliquis. Remains on oral diuretics. The patient seen today December 31, 2023 in follow-up on the regular medical floor. She is awake and alert in no acute distress. Sitting up in a chair at the bedside. Denies any shortness of breath, cough or congestion. Maintaining good O2 saturations in the 90s on room air. White count 11.5. Hemoglobin 10.9. Platelets 138. Sodium 134. Potassium 3.7. Bicarb 24. BUN 18. Creatinine 0.48. Glucose 167. She is continued on bronchodilators, prednisone taper. Remains on Eliquis for anticoagulation. Remains on oral diuretics. Remains in a negative balance. The patient is seen today January 01, 2024 in follow-up on the regular medical floor. She is sitting up in a chair at the bedside. Awake and alert in no acute distress. Denies any shortness of breath, cough or congestion. No fever or chills. Maintaining good O2 saturations in the 90s on room air. No IV fluids. She remains on bronchodilators, prednisone taper. Anticoagulated with Eliquis. Remains on oral diuretics. Sodium 142. Potassium 3.6. Bicarb 29. BUN 17. Creatinine 0.5. Glucose 71. The patient is seen today January 02, 2024 in follow-up on the regular medical floor. She is awake and alert in no acute distress. Sitting up at the bedside. Denies any worsening shortness of breath, cough or congestion. Maintaining O2 saturations in the 90s on room air. White count 8.9. Hemoglobin 10.7. Platelets 181. Sodium 140. Potassium 4.1. Bicarb 30. BUN 21. Creatinine 0.6. Glucose 76. She is continued on DuoNeb ventilations, Symbicort, prednisone taper. Anticoagulated with Eliquis. Objective - Vital Signs Vital signs: Vital Signs Temp 97.5 F L 01/02/24 07:15 Pulse 82 01/02/24 11:21 Resp 16 01/02/24 07:15 BP 97/47 01/02/24 07:15 Pulse Ox 94 L 01/02/24 07:54 FiO2 35 12/24/23 21:00 Intake & Output 01/01/24 01/02/24 01/02/24 18:59 06:59 18:59 Intake Total 240 Balance 240 Weight 85.4 kg Intake: Oral 240 Other: Voiding Method Bedside Commode Bedside Commode # Voids 2 3 ABP, PAP, CO, CI - Last Documented Arterial Blood Pressure 104/64 - Exam GENERAL EXAM: Alert, pleasant 73-year-old female, on room air, sitting up in bed, in no apparent distress. HEAD: Normocephalic. EYES: Normal reaction of pupils, equal size. NOSE: Clear with pink turbinates. THROAT: No erythema or exudates. NECK: No masses, no JVD. CHEST: No chest wall deformity. LUNGS: Equal air entry with no crackles, wheeze, rhonchi or dullness. Diminished CVS: S1 and S2 normal with no audible murmur, regular rhythm. ABDOMEN: No hepatosplenomegaly, normal bowel sounds, no guarding or rigidity. SPINE: No scoliosis or deformity SKIN: No rashes CENTRAL NERVOUS SYSTEM: No focal deficits, tone is normal in all 4 extremities. EXTREMITIES: There is no peripheral edema. No clubbing, no cyanosis. Peripheral pulses are intact. - Labs CBC & Chem 7: 01/02/24 05:56 01/02/24 05:56 Labs: Abnormal Lab Results - Last 24 Hours (Table) 01/01/24 01/01/24 01/02/24 Range/Units 17:18 20:25 05:56 RBC 5.28 H (4.10-5.20) X 10*6/uL Hgb 10.7 L (12.0-15.0) g/dL MCV 70.8 L (80.0-97.0) FL MCH 20.3 L (27.0-32.0) pg MCHC 28.6 L (32.0-37.0) g/dL RDW 23.9 H (11.5-14.5) % Eosinophils # 0.03 L (0.04-0.35) X 10*3/uL Anisocytosis (manual) 2+ A Microcytosis (manual) 3+ A Elliptocytes 2+ A Acanthocytes (Spur) 2+ A Schistocytes 1+ A BUN/Creatinine Ratio (12.00-20.00) Ratio POC Glucose (mg/dL) 424 H 272 H (70-110) mg/dL ALT (8-44) U/L Total Protein (6.2-8.2) g/dL Albumin (3.8-4.9) g/dL 01/02/24 01/02/24 Range/Units 05:56 12:02 RBC (4.10-5.20) X 10*6/uL Hgb (12.0-15.0) g/dL MCV (80.0-97.0) FL MCH (27.0-32.0) pg MCHC (32.0-37.0) g/dL RDW (11.5-14.5) % Eosinophils # (0.04-0.35) X 10*3/uL Anisocytosis (manual) Microcytosis (manual) Elliptocytes Acanthocytes (Spur) Schistocytes BUN/Creatinine Ratio 34.83 H (12.00-20.00) Ratio POC Glucose (mg/dL) 155 H (70-110) mg/dL ALT 153 H (8-44) U/L Total Protein 5.6 L (6.2-8.2) g/dL Albumin 3.5 L (3.8-4.9) g/dL Assessment and Plan Assessment: Acute hypoxic respiratory failure secondary to multifocal pneumonia, required intubation mechanical ventilation, extubated on 12/24/2023, recovered and on room air Acute hypernatremia, mostly secondary to free water deficit, resolved Acute metabolic alkalosis secondary to diuresis, resolved History of COPD, presently under control and stable History of coronary artery disease, status post bypass surgery Chronic systolic heart failure with an ejection fraction of 30 to 35% along with moderate MR and mild to moderate pulm hypertension with a PA pressure of 32 History of diabetes mellitus History of hyperlipidemia History of hypertension History of fibromyalgia History of obstructive sleep apnea syndrome History of polysubstance abuse SVT, single episode, treated with adenosine resolved Plan: The patient was seen and evaluated Labs and medications reviewed Currently stable and on room air Continue bronchodilators, steroid taper Plan is for subacute rehabilitation at discharge This patient was seen independently by the pulmonary nurse practitioner addressing pulmonary issues I have personally seen and examined the patient, performed the documentation and the assessment and plan as written. Number of minutes spent on the visit: 24.
--- NOTE | 2024-01-02 16:37 | P.PN ---
Subjective Progress Note Date: 01/02/24 Principal diagnosis: Reason for follow-up is fever Patient is a 73-year-old female with a past medical history significant for diabetes mellitus hypertension hyperlipidemia fibromyalgia COPD coronary disease patient presenting to the hospital on 12/16/2023 for evaluation of chest congestion and cough and increasing shortness of breath, patient got reintubated and did spike a fever prompting this consultation. On today's visit that is 01/02/2024, the patient continues to be afebrile, the patient is on room air and breathing comfortably, the Pt denies having any chest pain or cough, the patient denies having any abdominal pain no vomiting or any diarrhea has been reported by the nursing staff Patient did have white count 8.98, creatinine 0.6 cultures has been negative Objective - Vital Signs Vital signs: Vital Signs Temp 98.4 F 01/02/24 12:02 Pulse 82 01/02/24 12:02 Resp 16 01/02/24 12:02 BP 97/64 01/02/24 12:02 Pulse Ox 98 01/02/24 12:02 FiO2 35 12/24/23 21:00 Intake & Output 01/01/24 01/02/24 01/02/24 18:59 06:59 18:59 Intake Total 240 Balance 240 Weight 85.4 kg Intake: Oral 240 Other: Voiding Method Bedside Commode Bedside Commode # Voids 2 3 ABP, PAP, CO, CI - Last Documented Arterial Blood Pressure 104/64 - Exam GENERAL DESCRIPTION: An elderly female lying in bed in no distress RESPIRATORY SYSTEM: Unlabored breathing , decreased breath sounds at bases HEART: S1 S2 regular rate and rhythm , ABDOMEN: Soft , no tenderness EXTREMITIES: No edema feet - Labs CBC & Chem 7: 01/02/24 05:56 01/02/24 05:56 Labs: Abnormal Lab Results - Last 24 Hours (Table) 01/01/24 01/01/24 01/02/24 Range/Units 17:18 20:25 05:56 RBC 5.28 H (4.10-5.20) X 10*6/uL Hgb 10.7 L (12.0-15.0) g/dL MCV 70.8 L (80.0-97.0) FL MCH 20.3 L (27.0-32.0) pg MCHC 28.6 L (32.0-37.0) g/dL RDW 23.9 H (11.5-14.5) % Eosinophils # 0.03 L (0.04-0.35) X 10*3/uL Anisocytosis (manual) 2+ A Microcytosis (manual) 3+ A Elliptocytes 2+ A Acanthocytes (Spur) 2+ A Schistocytes 1+ A BUN/Creatinine Ratio (12.00-20.00) Ratio POC Glucose (mg/dL) 424 H 272 H (70-110) mg/dL ALT (8-44) U/L Total Protein (6.2-8.2) g/dL Albumin (3.8-4.9) g/dL 01/02/24 01/02/24 Range/Units 05:56 12:02 RBC (4.10-5.20) X 10*6/uL Hgb (12.0-15.0) g/dL MCV (80.0-97.0) FL MCH (27.0-32.0) pg MCHC (32.0-37.0) g/dL RDW (11.5-14.5) % Eosinophils # (0.04-0.35) X 10*3/uL Anisocytosis (manual) Microcytosis (manual) Elliptocytes Acanthocytes (Spur) Schistocytes BUN/Creatinine Ratio 34.83 H (12.00-20.00) Ratio POC Glucose (mg/dL) 155 H (70-110) mg/dL ALT 153 H (8-44) U/L Total Protein 5.6 L (6.2-8.2) g/dL Albumin 3.5 L (3.8-4.9) g/dL Assessment and Plan (1) Allergy to multiple antibiotics Current Visit: No Status: Acute Code(s): Z88.1 - ALLERGY STATUS TO OTHER ANTIBIOTIC AGENTS SNOMED Code(s): 272255424 (2) Aspiration pneumonia Current Visit: No Status: Acute Code(s): J69.0 - PNEUMONITIS DUE TO INHALATION OF FOOD AND VOMIT SNOMED Code(s): 515902334 (3) Leukocytosis Current Visit: No Status: Acute Code(s): D72.829 - ELEVATED WHITE BLOOD CELL COUNT, UNSPECIFIED SNOMED Code(s): 702958942 Plan: 1patient with a fever and this patient presented to the hospital with increasing shortness of breath was intubated got extubated and has to be reintubated because of worsening respiratory status with a fever subsequently possible pulmonary source as the patient abdominal soft on clinical examination and no evidence of any cellulitis or joint swelling 2-patient blood and sputum culture has been negative 3patient did have resolution of her leukocytosis with a normal white count this morning, patient did have normal CRP and a procalcitonin and the patient remains to be afebrile, currently being monitored closely off antibiotic Dictation was produced using [employer] dictation software. please excuse any grammatical, word or spelling errors. Time with Patient: Less than 30
[2024-01-02 16:47] LABS: Glucose,Whole Blood 378 mg/dL (70-110)
[2024-01-02 20:30] LABS: Glucose,Whole Blood 255 mg/dL (70-110)
[2024-01-03 02:44] VITALS: RESP 16
[2024-01-03 07:27] LABS: Glucose,Whole Blood 113 mg/dL (70-110)
[2024-01-03 08:34] LABS: Basophils # (A) 0 X 10*3/uL (0.00-0.10); Basophils % (A) 0 %; Eosinophils # (A) 0.01 X 10*3/uL (0.04-0.35); Eosinophils % (A) 0.1 %; HCT 33.7 % (37.2-46.3); HGB 9.8 g/dL (12.0-15.0); Lymphocytes # (A) 1.76 X 10*3/uL (0.90-5.00); MCH 20.4 pg (27.0-32.0); MCHC 29.1 g/dL (32.0-37.0); MCV 70.1 FL (80.0-97.0); Monocytes # (A) 0.55 X 10*3/uL (0.20-1.00); Monocytes % (A) 5.9 %; NRBC Per 100 WBC 0 X 10*3/uL (0.00-0.01); Neutrophils # (A) 6.91 X 10*3/uL (1.80-7.70); Neutrophils % (A) 74.6 %; Platelet Count 173 X 10*3/uL (140-440); RBC 4.81 X 10*6/uL (4.10-5.20); RDW 23.9 % (11.5-14.5); WBC 9.27 X 10*3/uL (4.50-10.00)
[2024-01-03] MEDS: predniSONE 10 MG TAB PO SCH (08:48)
[2024-01-03 08:51] LABS: ALT 130 U/L (8-44); AST 18 U/L (13-35); Albumin 3.5 g/dL (3.8-4.9); Albumin/Globulin Ratio 1.84 Ratio (1.60-3.17); Alkaline Phosphatase 85 U/L (41-126); BUN/Creat Ratio 42.33 Ratio (12.00-20.00); Blood Urea Nitrogen 25.4 mg/dL (9.0-27.0); Calcium 8.9 mg/dL (8.7-10.3); Chloride 95 mmol/L (96-109); Globulin 1.9 g/dL (1.6-3.3); Glucose 139 mg/dL (70-110); Potassium 4.1 mmol/L (3.5-5.5); Sodium 134 mmol/L (135-145); Total Bilirubin 0.2 mg/dL (0.3-1.2); Total Protein 5.4 g/dL (6.2-8.2)
--- NOTE | 2024-01-03 11:13 | P.PN ---
Subjective Progress Note Date: 01/03/24 The patient is seen today December 30, 2023 in follow-up on the regular medical floor. She is currently sitting up in a chair. Awake and alert in no acute distress. Denies any worsening shortness of breath, cough or congestion. She is maintaining O2 saturations in the 90s on room air. Glucose 72. She is continued on DuoNeb ventilations, Pulmicort and performing scintillations, prednisone taper. Anticoagulated with Eliquis. Remains on oral diuretics. The patient seen today December 31, 2023 in follow-up on the regular medical floor. She is awake and alert in no acute distress. Sitting up in a chair at the bedside. Denies any shortness of breath, cough or congestion. Maintaining good O2 saturations in the 90s on room air. White count 11.5. Hemoglobin 10.9. Platelets 138. Sodium 134. Potassium 3.7. Bicarb 24. BUN 18. Creatinine 0.48. Glucose 167. She is continued on bronchodilators, prednisone taper. Remains on Eliquis for anticoagulation. Remains on oral diuretics. Remains in a negative balance. The patient is seen today January 01, 2024 in follow-up on the regular medical floor. She is sitting up in a chair at the bedside. Awake and alert in no acute distress. Denies any shortness of breath, cough or congestion. No fever or chills. Maintaining good O2 saturations in the 90s on room air. No IV fluids. She remains on bronchodilators, prednisone taper. Anticoagulated with Eliquis. Remains on oral diuretics. Sodium 142. Potassium 3.6. Bicarb 29. BUN 17. Creatinine 0.5. Glucose 71. The patient is seen today January 02, 2024 in follow-up on the regular medical floor. She is awake and alert in no acute distress. Sitting up at the bedside. Denies any worsening shortness of breath, cough or congestion. Maintaining O2 saturations in the 90s on room air. White count 8.9. Hemoglobin 10.7. Platelets 181. Sodium 140. Potassium 4.1. Bicarb 30. BUN 21. Creatinine 0.6. Glucose 76. She is continued on DuoNeb ventilations, Symbicort, prednisone taper. Anticoagulated with Eliquis. The patient is seen today January 03, 2024 in follow-up on the regular medical floor. She is sitting up in bed. Awake and alert in no acute distress. Maintaining O2 saturations in the 90s on room air. White count 9.2. Hemoglobin 9.8. Platelets 173. Sodium 134. Potassium 4.1. Bicarb 29. BUN 25. Creatinine 0.6. Glucose 139. Bronchial wash cultures revealed no growth. Sputum culture revealed no growth. Blood cultures revealed no growth. Currently on DuoNeb ventilations, Symbicort, prednisone taper. Anticoagulated with Eliquis. Remains on oral diuretics. Objective - Vital Signs Vital signs: Vital Signs Temp 98.2 F 01/03/24 07:25 Pulse 68 01/03/24 09:56 Resp 16 01/03/24 08:05 BP 111/70 01/03/24 07:25 Pulse Ox 96 01/03/24 09:56 FiO2 35 12/24/23 21:00 Intake & Output 01/02/24 01/03/24 01/03/24 18:59 06:59 18:59 Other: Voiding Method Bedside Commode Bedside Commode Bedside Commode # Voids 1 4 ABP, PAP, CO, CI - Last Documented Arterial Blood Pressure 104/64 - Exam GENERAL EXAM: Alert, 73-year-old female, on room air, sitting up at the bedside, in no apparent distress. HEAD: Normocephalic. EYES: Normal reaction of pupils, equal size. NOSE: Clear with pink turbinates. THROAT: No erythema or exudates. NECK: No masses, no JVD. CHEST: No chest wall deformity. LUNGS: Equal air entry with no crackles, wheeze, rhonchi or dullness. Diminished CVS: S1 and S2 normal with no audible murmur, regular rhythm. ABDOMEN: No hepatosplenomegaly, normal bowel sounds, no guarding or rigidity. SPINE: No scoliosis or deformity SKIN: No rashes CENTRAL NERVOUS SYSTEM: No focal deficits, tone is normal in all 4 extremities. EXTREMITIES: There is 1+ peripheral edema. No clubbing, no cyanosis. Peripheral pulses are intact. - Labs CBC & Chem 7: 01/03/24 05:36 01/03/24 05:36 Labs: Abnormal Lab Results - Last 24 Hours (Table) 01/02/24 01/02/24 01/02/24 Range/Units 05:56 05:56 12:02 RBC 5.28 H (4.10-5.20) X 10*6/uL Hgb 10.7 L (12.0-15.0) g/dL Hct (37.2-46.3) % MCV 70.8 L (80.0-97.0) FL MCH 20.3 L (27.0-32.0) pg MCHC 28.6 L (32.0-37.0) g/dL RDW 23.9 H (11.5-14.5) % Eosinophils # 0.03 L (0.04-0.35) X 10*3/uL Anisocytosis (manual) 2+ A Microcytosis (manual) 3+ A Elliptocytes 2+ A Acanthocytes (Spur) 2+ A Schistocytes 1+ A Sodium (135-145) mmol/L Chloride (96-109) mmol/L BUN/Creatinine Ratio 34.83 H (12.00-20.00) Ratio Glucose (70-110) mg/dL POC Glucose (mg/dL) 155 H (70-110) mg/dL Total Bilirubin (0.3-1.2) mg/dL ALT 153 H (8-44) U/L Total Protein 5.6 L (6.2-8.2) g/dL Albumin 3.5 L (3.8-4.9) g/dL 01/02/24 01/02/24 01/03/24 Range/Units 16:44 20:28 05:36 RBC (4.10-5.20) X 10*6/uL Hgb 9.8 L (12.0-15.0) g/dL Hct 33.7 L (37.2-46.3) % MCV 70.1 L (80.0-97.0) FL MCH 20.4 L (27.0-32.0) pg MCHC 29.1 L (32.0-37.0) g/dL RDW 23.9 H (11.5-14.5) % Eosinophils # 0.01 L (0.04-0.35) X 10*3/uL Anisocytosis (manual) Microcytosis (manual) Elliptocytes Acanthocytes (Spur) Schistocytes Sodium (135-145) mmol/L Chloride (96-109) mmol/L BUN/Creatinine Ratio (12.00-20.00) Ratio Glucose (70-110) mg/dL POC Glucose (mg/dL) 378 H 255 H (70-110) mg/dL Total Bilirubin (0.3-1.2) mg/dL ALT (8-44) U/L Total Protein (6.2-8.2) g/dL Albumin (3.8-4.9) g/dL 01/03/24 01/03/24 Range/Units 05:36 07:25 RBC (4.10-5.20) X 10*6/uL Hgb (12.0-15.0) g/dL Hct (37.2-46.3) % MCV (80.0-97.0) FL MCH (27.0-32.0) pg MCHC (32.0-37.0) g/dL RDW (11.5-14.5) % Eosinophils # (0.04-0.35) X 10*3/uL Anisocytosis (manual) Microcytosis (manual) Elliptocytes Acanthocytes (Spur) Schistocytes Sodium 134 L (135-145) mmol/L Chloride 95 L (96-109) mmol/L BUN/Creatinine Ratio 42.33 H (12.00-20.00) Ratio Glucose 139 H (70-110) mg/dL POC Glucose (mg/dL) 113 H (70-110) mg/dL Total Bilirubin 0.2 L (0.3-1.2) mg/dL ALT 130 H (8-44) U/L Total Protein 5.4 L (6.2-8.2) g/dL Albumin 3.5 L (3.8-4.9) g/dL Microbiology - Last 24 Hours (Table) 12/18/23 16:40 Legionella Culture - Final Bronchial Washings - Right Assessment and Plan Assessment: Acute hypoxic respiratory failure secondary to multifocal pneumonia, required intubation mechanical ventilation, extubated on 12/24/2023, recovered and on room air Acute hypernatremia, mostly secondary to free water deficit, resolved Acute metabolic alkalosis secondary to diuresis, resolved History of COPD, presently under control and stable History of coronary artery disease, status post bypass surgery Chronic systolic heart failure with an ejection fraction of 30 to 35% along with moderate MR and mild to moderate pulm hypertension with a PA pressure of 32 History of diabetes mellitus History of hyperlipidemia History of hypertension History of fibromyalgia History of obstructive sleep apnea syndrome History of polysubstance abuse SVT, single episode, treated with adenosine resolved Plan: The patient was seen and evaluated Labs and medications reviewed Currently stable and on room air Continue bronchodilators, steroid taper Plan is for Whit Moise, possibly today I have personally seen and examined the patient, performed the documentation and the assessment and plan as written. Number of minutes spent on the visit: 10.
--- NOTE | 2024-01-03 11:55 | P.DS ---
Providers Date of admission: 12/18/23 11:22 Expected date of discharge: 01/03/24 Attending physician: Surinder Rodríguez Consults: 12/17/23 09:11 Consult Physician Routine Consulting Provider: Yosi Washington Consult Reason/Comments: COPD exacerbation Do you want consulting provider notified?: Yes 12/23/23 10:36 Consult Physician Routine Consulting Provider: Lamonte Polanco Consult Reason/Comments: fever Do you want consulting provider notified?: Yes Primary care physician: Surinder Rodríguez Assessment: Discharge diagnoses 1. Acute exacerbation of COPD. 2. Acute on chronic exacerbation of systolic CHF 3. Anemia. Iron studies ordered 4. Cardiomyopathy with an EF of 30-35% 5. History of non-STEMI September 2023 status post cardiac cath showing 80% stenosis of the stent patent 6. History of coronary artery disease disease status post CABG 7. History of diabetes mellitus type II 8. History of essential hypertension 9. History of hyperlipidemia. 10. Acute hypoxic respiratory failure requiring intubation and mechanical ventilation on 12/18/2023 11. Right middle lobe and right lower lobe infiltrates, suggestive of pneumonia, possible aspiration. 12. Dilated pancreatic duct seen on abdominal ultrasound patient will need follow-up with GI services as on 01/02/1994 Hospital course Mari Moore, is a 73 year old female who presented to [facility] with a chief complaint of worsening shortness of breath. Patient reports she's had a nonproductive cough and generalized weakness and upper respiratory symptoms over the past few days. Patient has an extensive medical history including asthma, heart failure, COPD, coronary artery disease with previous history of CABG, diabetes mellitus, fibromyalgia, sleep apnea, ex- smoker and current marijuana user. Chest x-ray completed in ER showing no acute pulmonary infiltrate. Current vital signs showing temperature 97.6, heart rate 97, respiratory 18, blood pressure 98/49 with a pulse ox of 96% on room air patient testing negative for influenza RSV and COVID-19. UA negative. Troponins negative 2. BNP elevated at 2130. White blood cell within normal limits hemoglobin 8.9 at this time primary service is consulted. Will consult cardiology services in order 2-D echo. Iron studies ordered for anemia patient started on IV Solu-Medrol DuoNeb breathing treatments. At this time pulmonary a nd cardiology services consulted. Continue azithromycin for upper respiratory infection. Iron studies for low hemoglobin. On 12/18/2023 patient was seen and examined in the ICU her condition has wo rsened this morning, she was having severe continuous cough and shortness of breath, she had decrease in her O2 sat duration, she was transferred to intensive care unit, chest x-ray revealed significant worsening since x-ray done on 12/16/2023 with large right middle lobe and right lower lobe infiltrates, possibly related to aspiration. At this time patient is intubated, sedated started on mechanical ventilation, IV Zosyn was added to her medication regimen, pulmonary critical care following. On 12/19/2023 patient remains in the ICU on mechanical ventilation FiO2 40%. Patient remains on IV sedation. Levophed has been DC'd. Patient remains on IV steroids and IV antibiotics. Pulmonary and cardiology services following. ABGs this a.m. pH 7.36, pCO2 40, pO2 189, HCO3 23 and total CO2 24. On 12/20/2023 patient remains in the ICU on mechanical ventilation FiO2 30%. Liver enzymes trending down AST 222 ALT 390. ABGs this a.m. pH 7.40, pCO2 38, pO2 126 sodium bicarb 24. Patient remains on IV Zosyn and IV vancomycin. Patient dakotah on IV steroids On 12/21/2023 patient was seen and examined in the ICU she is intubated sedated maintained on mechanical ventilation, vital exam of this morning reveals a temperature of 99.4 heart rate 87 respiration 27 blood pressure 100/68 pulse ox 95% on FiO2 of 30% Arterial blood gas reveals pH 7.4 pCO2 39 CO2 94 liver enzymes remain elevated with ALT at 319 and AST at 222 patient is maintained on IV antibiotics Zosyn she also remains on pressure support. On 12/22/2023 patient was seen and examined in the ICU she is intubated sedated maintained on mechanical ventilation vital examination reveals a temperature of 99.4 pulse 92 respiration 20 blood pressure 106/69 pulse ox 97 percent on FiO2 of 30% she remains on assist control tidal volume 350 rate of 20 FiO2 30% and a PEEP of 5. Arterial blood gas reveals a pH of 7.44 pCO2 45 pO2 99 white blood count 5.3 hemoglobin 9.2 platelet count 213 BUN 49 creatinine 0.99 patient remains on pressure support with norepinephrine she remains on IV antibiotic Zosyn, pulmonary critical care, and cardiology are following. On 12/23/2023 patient was seen and examined in the ICU she is intubated sedated maintained on mechanical ventilation, vital exam reveals a temperature of 100.2, respiration 25 pulse 88 blood pressure 130/69 pulse ox 100% on FiO2 50% currently patient is back on assist control rate of 20 tidal volume 350 FiO2 50% with PEEP of 5 arterial blood gas reveals pH of 7.5 to pCO2 47 CO2 130 potassium is low at 2.5 and is being corrected. She is still having episodes of fever, she is maintained on IV Zosyn, repeat blood culture ordered, infectious disease consultation requested. On 12/24/2023 patient was seen and examined in the ICU she is intubated sedated maintained on mechanical ventilation, nursing is reporting that patient has not had a bowel movement for several days, otherwise patient seems to be stable. Vital exam reveals a temperature of 99.3 pulse 84 respiration 22 blood pressure 104/55 pulse ox is 100% on mechanical ventilation. At this time patient is maintained on assist control tidal volume 350 rate of 20 FiO2 40% with a PEEP of 5 arterial blood gas this morning reveals a pH of 7.43 pCO2 48 pO2 134 BUN is elevated at 51 creatinine 1.09 there is elevation in liver enzymes with AST at 139 and a LT at 560 On 12/25/2023 patient was seen and examined in the ICU she is alert and oriented 3 in no apparent distress she was extubated yesterday she is maintained on oxygen at 5 L via nasal cannula, she denies any complaints at this time there is no fever or chills no headache or dizziness no chest pain no shortness of breath no cough no nausea or vomiting no abdominal pain no diarrhea and no urinary symptoms vital examination reveals a temperature of 98 pulse 104 respiration 18 blood pressure 108/95 pulse ox 99% on 5 L nasal cannula, laboratory data reveals a white blood count of 8.0 hemoglobin 9.8 platelet count 125 BUN 39 creatinine 0.83 on 12/26/2023 patient remains in the intensive care unit alert and oriented 3. Patient currently on 2 L nasal cannula. Patient was started on amiodarone per cardiology. Current vital signs temp 97.6, heart rate 62, respiratory rate 19, blood pressure 107/65 pulse ox 99% on 2 L. On 12/27/2023 patient is alert and oriented 3. Liver enzymes slightly improving awaiting abdominal ultrasound. Current vital signs temp 98.5, heart rate 59, respiratory rate teens, blood pressure 124/77 with pulse ox 94% on room air. Anticipate possible discharge in the next 24-48 hours On 12/28/2023 patient alert and oriented 3. Patient is resting comfortably in bed. Patient denies chest pain or shortness breath. Patient denies nausea vomiting or diarrhea. Patient denies any urinary burning or frequency On 12/29/2023 patient alert and oriented 3. Case management following for discharge planning apparently grandson is attempting to get guardianship and patient DC'd the ECF facility. Awaiting further plan. On 12/30/2023 patient was seen and examined on the medical floor, she is alert and oriented 3 in no apparent distress she denies any complaints at this time there is no fever or chills no headache or dizziness no chest pain no shortness of breath no cough no nausea or vomiting no abdominal pain no diarrhea and no urinary symptoms, awaiting discharge planning. On 12/31/2023 patient's alert and oriented 3. Patient denies chest pain or shortness breath. Patient denies nausea vomiting or diarrhea. Patient denies any urinary burning or frequency. Current vital signs temp 97.9, heart rate 70, respiratory 18, blood pressure 106/67 with a pulse ox 97% on room air On 01/01/2024 patient was seen and examined on the medical floor she is alert and oriented 3 in no apparent distress she is complaining of generalized weakness otherwise she denies any complaints there is no fever or chills no headache or dizziness no chest pain no shortness of breath no cough no nausea or vomiting no abdominal pain no diarrhea and no urinary symptoms. Possible transfer to rehab tomorrow. On 01/02/2024 patient's alert and oriented 3. Patient is still adamant that she wants to go home according to social work notes her grandson guardianship hearing except for Monday01/02/24 for discharge planning to ECF facility [facility]. Current vital signs temp 97.5, heart rate 76, respiratory rate 16, blood pressure 97/47 pulse ox 94% on room air On 01/03/2020 patient's alert and oriented 3. Patient to be DC'd to ECF facility guardianship completed through [facility]. Patient denies chest pain or shortness of breath. Patient denies nausea vomiting or diarrhea. Patient denies any urinary burning or frequency Patient Condition at Discharge: Stable Plan - Discharge Summary Discharge Rx Participant: Yes New Discharge Prescriptions: New Insulin Detemir (Levemir) [Levemir] 15 unit SQ BID@0700,2100 each Nystatin 100,000 Unit/gm Powd [Mycostatin Powder] 1 applic TOPICAL TID #0 each INSULIN ASPART (NovoLOG) [NovoLOG (formulary)] 0 unit SQ ACHS each Torsemide [Demadex] 20 mg PO DAILY tab Apixaban [Eliquis] 5 mg PO BID tab predniSONE 10 mg PO DIRECTED 12 Days #30 tab Benzonatate [Tessalon Perles] 200 mg PO TID PRN cap PRN Reason: Cough Continue Albuterol Nebulized [Ventolin Nebulized] 2.5 mg INHALATION RT-Q4H PRN PRN Reason: Shortness Of Breath Spironolactone [Aldactone] 25 mg PO DAILY #30 tab Metoprolol Succinate (ER) [Toprol XL] 25 mg PO BID #60 tab Ferrous Sulfate [Iron (65 MG Elemental)] 325 mg PO W/LUNCH 30 Days #30 tab lisinopriL [Zestril] 5 mg PO DAILY 30 Days #30 tab Ipratropium-Albuterol Nebulize [Duoneb 0.5 mg-3 mg/3 ml Soln] 3 ml INHALATION RT-QID Budesonide-Formot 160-4.5 Mcg [Symbicort 160-4.5 Mcg Inhaler] 2 puff INHALATION RT-BID 30 Days #1 each Aspirin 81 mg PO DAILY #30 tab Discontinued traMADol HCl [Ultram] 50 mg PO TID PRN PRN Reason: Pain traZODone HCL [Desyrel] 50 mg PO HS PRN PRN Reason: Insomnia Insulin Glargine/Lixisenatide [Soliqua 100 Unit-33 Mcg/ml Pen] 30 units SQ DAILY 30 Days #1 pen Furosemide [Lasix] 40 mg PO DAILY 30 Days #30 tab Atorvastatin [Lipitor] 40 mg PO DAILY #30 tab Clopidogrel [Plavix] 75 mg PO DAILY #30 tab Discharge Medication List Albuterol Nebulized [Ventolin Nebulized] 2.5 mg INHALATION RT-Q4H PRN 07/22/23 [History] Ipratropium-Albuterol Nebulize [Duoneb 0.5 mg-3 mg/3 ml Soln] 3 ml INHALATION RT-QID 07/22/23 [History] Budesonide-Formot 160-4.5 Mcg [Symbicort 160-4.5 Mcg Inhaler] 2 puff INHALATION RT-BID 30 Days #1 each 08/10/23 [Rx] Aspirin 81 mg PO DAILY #30 tab 10/24/23 [Rx] Metoprolol Succinate (ER) [Toprol XL] 25 mg PO BID #60 tab 10/24/23 [Rx] Spironolactone [Aldactone] 25 mg PO DAILY #30 tab 10/24/23 [Rx] Ferrous Sulfate [Iron (65 MG Elemental)] 325 mg PO W/LUNCH 30 Days #30 tab 11/11/23 [Rx] lisinopriL [Zestril] 5 mg PO DAILY 30 Days #30 tab 11/11/23 [Rx] Apixaban [Eliquis] 5 mg PO BID tab 01/03/24 [Rx] Benzonatate [Tessalon Perles] 200 mg PO TID PRN cap 01/03/24 [Rx] INSULIN ASPART (NovoLOG) [NovoLOG (formulary)] 0 unit SQ ACHS each 01/03/24 [Rx] Insulin Detemir (Levemir) [Levemir] 15 unit SQ BID@0700,2100 each 01/03/24 [Rx] Nystatin 100,000 Unit/gm Powd [Mycostatin Powder] 1 applic TOPICAL TID #0 each 01/03/24 [Rx] Torsemide [Demadex] 20 mg PO DAILY tab 01/03/24 [Rx] predniSONE 10 mg PO DIRECTED 12 Days #30 tab 01/03/24 [Rx] Follow up Appointment(s)/Referral(s): Yosi Washington DO [Doctor of Osteopathic Medicine] - 10 Days Surinder Rodríguez MD [Primary Care Provider] - 1-2 days Activity/Diet/Wound Care/Special Instructions: Activity as tolerated Diet heart healthy Discharge Disposition: TRANSFER TO SNF/ECF
[2024-01-03 12:31] LABS: Glucose,Whole Blood 172 mg/dL (70-110)
[2024-01-03 13:25] VITALS: BP 112/82; TEMP 98.5
[2024-01-03 16:53] VITALS: PULSE 70
[2024-01-03 16:54] LABS: Glucose,Whole Blood 337 mg/dL (70-110)
== END 2024-01-03 17:40 | DRG 207 ==
LOC: EC 21:32 → 6NMEDSUR 12-17 00:37 → 3SCARD 12-17 02:31 → OBSVTOIN 12-18 11:22 → 2SICU 12-18 11:40 → 3SCARD 12-26 18:01 → 5NMEDONC 12-29 23:49
PROVIDERS: ADMIT Internal Medicine; ATTEND Internal Medicine
PROC: 0BH17EZ Insertion of Endotracheal Airway into Trachea, Via Natural or Artificial Opening (ICD-10-PCS; principal; 2023-12-18)
PROC: 5A1955Z Respiratory Ventilation, Greater than 96 Consecutive Hours (ICD-10-PCS; principal; 2023-12-18)
PROC: 0B9F8ZZ Drainage of Right Lower Lung Lobe, Via Natural or Artificial Opening Endoscopic (ICD-10-PCS; 2023-12-18)
PROC: 4A133B1 Monitoring of Arterial Pressure, Peripheral, Percutaneous Approach (ICD-10-PCS; 2023-12-18)
PROC: 03HY32Z Insertion of Monitoring Device into Upper Artery, Percutaneous Approach (ICD-10-PCS; 2023-12-18)
PROC: 4A133J1 Monitoring of Arterial Pulse, Peripheral, Percutaneous Approach (ICD-10-PCS; 2023-12-18)
PROC: 02HV33Z Insertion of Infusion Device into Superior Vena Cava, Percutaneous Approach (ICD-10-PCS; 2023-12-18)
PROC: 0D9670Z Drainage of Stomach with Drainage Device, Via Natural or Artificial Opening (ICD-10-PCS; 2023-12-18)
PROC: 3E0G76Z Introduction of Nutritional Substance into Upper GI, Via Natural or Artificial Opening (ICD-10-PCS; 2023-12-18)
PROC: 3E043XZ Introduction of Vasopressor into Central Vein, Percutaneous Approach (ICD-10-PCS; 2023-12-18)
DX: J44.1 Chronic obstructive pulmonary disease with (acute) exacerbation (principal); I50.23 Acute on chronic systolic (congestive) heart failure; J69.0 Pneumonitis due to inhalation of food and vomit; J96.02 Acute respiratory failure with hypercapnia; J96.01 Acute respiratory failure with hypoxia; E87.0 Hyperosmolality and hypernatremia; E87.1 Hypo-osmolality and hyponatremia; E87.3 Alkalosis; I47.10 Supraventricular tachycardia, unspecified; I47.20 Ventricular tachycardia, unspecified; J98.11 Atelectasis; N17.9 Acute kidney failure, unspecified; T82.855A Stenosis of coronary artery stent, initial encounter; Z87.891 Personal history of nicotine dependence; I11.0 Hypertensive heart disease with heart failure; I95.9 Hypotension, unspecified; I27.20 Pulmonary hypertension, unspecified; K86.89 Other specified diseases of pancreas; M32.9 Systemic lupus erythematosus, unspecified; D64.9 Anemia, unspecified; E78.5 Hyperlipidemia, unspecified; I08.3 Combined rheumatic disorders of mitral, aortic and tricuspid valves; I25.10 Atherosclerotic heart disease of native coronary artery without angina pectoris; I25.2 Old myocardial infarction; I25.5 Ischemic cardiomyopathy; I48.91 Unspecified atrial fibrillation; I49.3 Ventricular premature depolarization; M79.7 Fibromyalgia; M47.9 Spondylosis, unspecified; H92.03 Otalgia, bilateral; R74.01 Elevation of levels of liver transaminase levels; R61 Generalized hyperhidrosis; G47.33 Obstructive sleep apnea (adult) (pediatric); T50.2X5A Adverse effect of carbonic-anhydrase inhibitors, benzothiadiazides and other diuretics, initial encounter; Z79.01 Long term (current) use of anticoagulants; Z79.02 Long term (current) use of antithrombotics/antiplatelets; Z79.51 Long term (current) use of inhaled steroids; Z79.82 Long term (current) use of aspirin; Z79.4 Long term (current) use of insulin; Z79.899 Other long term (current) drug therapy; Z82.49 Family history of ischemic heart disease and other diseases of the circulatory system; Z83.3 Family history of diabetes mellitus; Z95.1 Presence of aortocoronary bypass graft; Z95.5 Presence of coronary angioplasty implant and graft; Z71.3 Dietary counseling and surveillance
CPT/HCPCS: 36415; 36600; 71045; 71046; 76700; 80048; 80051; 80053; 80306; 81003; 82607; 82746; 82805; 83036; 83540; 83550; 83605; 83735; 83880; 84132; 84145; 84450; 84460; 84484; 85025; 85027; 85610; 86140; 87040; 87070; 87102; 87116; 87205; 87206; 87449; 87496; 87498; 87502; 87529; 87634; 87635; 87636; 87798; 89050; 93005; 94002; 94003; 94640; 94660; 94760; 96365; 96375; 99285